=== PATIENT | female | born 1960 | race Hispanic/Latino ===

== ENCOUNTER 2018-04-08 02:52 | Emergency (ER) | payer MEDICARE ==
[2018-04-08 03:10] VITALS: BP 125/77
[2018-04-08] MEDS ORDERED: NACL 0.9% 1000 ML 1,000 ML IV ONE (03:20)
[2018-04-08 03:48] LABS: Basophils % (Auto) 0.4 % (0.0-1.8); Eosinophils % (Auto) 0.3 % (0.0-4.3); Hematocrit 44.9 % (30.3-42.9); Hemoglobin 15.2 gm/dl (10.1-14.3); Lymphocytes # (Auto) 0.6 K/mm3 (1.2-5.4); Lymphocytes % (Auto) 7.3 % (13.4-35.0); Mean Corpuscular HGB Conc 34 % (30-34); Mean Corpuscular Volume 85 fl (79-97); Monocytes # (Auto) 0.6 K/mm3 (0.0-0.8); Monocytes % (Auto) 7.4 % (0.0-7.3); Platelet Count 172 K/mm3 (140-440); Red Blood Count 5.27 M/mm3 (3.65-5.03); Red Cell Distribution Width 15.1 % (13.2-15.2)
[2018-04-08 04:10] LABS: Albumin 3.9 g/dL (3.9-5); BUN/Creatinine Ratio 38; Blood Urea Nitrogen 15 mg/dL (7-17); Calcium 9.2 mg/dL (8.4-10.2); Hemolysis Index 124
[2018-04-08] MEDS ORDERED: ULTRAM PO ONE (04:39)
--- NOTE | 2018-04-08 04:44 | Emergency Department Report ---
ED General Adult HPI - General Chief complaint: Abdominal Pain Stated complaint: ABD PAIN Source: patient, EMS Mode of arrival: Wheelchair Limitations: No Limitations - History of Present Illness Initial comments: 57-year-old female with a past medical history of hypertension, COPD, neurofibromatosis comes in reporting abdominal pain that is sharp and lower back pain that is achy and throbbing. Patient denies any recent traumas. Patient has taken nothing for her pain and states that it started yesterday. Patient's primary care provider is Dr. Fagan and she reports she saw him last month. She denies any urinary frequency or urinary urgency. She admits to dysuria. Reports her abdominal pain is located lower aspect of the abdomen. She denies any nausea no vomiting. -: days(s) (1) Location: back, abdomen Severity scale (0 -10): 10 Quality: aching (back), sharp (abd) Consistency: constant Improves with: none Worsens with: none Associated Symptoms: cough (chronic), other (sneezing) Treatments Prior to Arrival: none - Related Data Home Medications Medication Instructions Recorded Confirmed Last Taken Citalopram Hydrobromide 40 mg PO QDAY 07/31/17 04/19/18 04/15/18 [Citalopram HBr] Gabapentin [Neurontin] 800 mg PO 5XD 07/31/17 04/19/18 04/15/18 Losartan 50 mg PO QDAY 07/31/17 04/19/18 04/15/18 Tizanidine HCl [Zanaflex] 2 mg PO QDAY 07/31/17 04/19/18 04/15/18 busPIRone [Buspar] 5 mg PO BID 07/31/17 04/19/18 04/15/18 Previous Rx's Medication Instructions Recorded Last Taken Type ALPRAZolam [Xanax TAB] 0.25 mg PO Q8H PRN tablet 06/10/18 Unknown Rx Acetaminophen [Acetaminophen 650 mg RI Q4H PRN supp.rect 06/10/18 Unknown Rx SUPPOS] Arformoterol Nebu [Brovana Nebu] 15 mcg IH Q12HRT ml 06/10/18 Unknown Rx Benzocaine/Mentho [Cepacol X 1 each MM Q2HR PRN packet 06/10/18 Unknown Rx Strength] Budesonide [Pulmicort Respules] 0.5 mg IH Q12HRT nebu 06/10/18 Unknown Rx Gabapentin [Neurontin] 800 mg PO TID capsule 06/10/18 Unknown Rx HYDROcodone/APAP 5-325 [[place] 1 each PO Q4H PRN tablet 06/10/18 Unknown Rx 5-325 mg TAB] Loperamide [Imodium] 2 mg PO Q2H PRN capsule 06/10/18 Unknown Rx Metoprolol [Lopressor TAB] 12.5 mg PO BID tablet 06/10/18 Unknown Rx Mirtazapine [Remeron 15mg TAB] 15 mg PO QHS tablet 06/10/18 Unknown Rx Ondansetron [Zofran INJ] 4 mg IV Q4H PRN vial 06/10/18 Unknown Rx fentaNYL [Duragesic] 25 mcg TD Q3D patch 06/10/18 Unknown Rx hydrALAZINE [Apresoline INJ] 10 mg IV Q4HR PRN vial 06/10/18 Unknown Rx methOCARBAMOL [Robaxin TAB] 500 mg PO Q6H PRN #14 tablet 07/27/18 Unknown Rx oxyCODONE /ACETAMINOPHEN [Percocet 1 tab PO Q4HR PRN #12 tab 07/27/18 Unknown Rx 5/325] Allergies Allergy/AdvReac Type Severity Reaction Status Date / Time NSAIDS (Non-Steroidal Allergy Unknown Verified 04/08/18 03:20 Anti-Inflamma ED Review of Systems ROS: Stated complaint: ABD PAIN Other details as noted in HPI Comment: All other systems reviewed and negative ENT: other (sneezing) Respiratory: cough Gastrointestinal: abdominal pain Musculoskeletal: back pain ED Past Medical Hx - Past Medical History Previous Medical History?: Yes Hx Hypertension: Yes Hx Congestive Heart Failure: No Hx Diabetes: No Hx Asthma: No Hx COPD: Yes Hx HIV: No Additional medical history: chronic back pain. Neurofibroidmytosis - Surgical History Past Surgical History?: Yes Additional Surgical History: Partial hyster - Social History Smoking Status: Current Every Day Smoker Substance Use Type: None - Medications Home Medications: Home Medications Medication Instructions Recorded Confirmed Last Taken Type Citalopram Hydrobromide 40 mg PO QDAY 07/31/17 04/19/18 04/15/18 History [Citalopram HBr] Gabapentin [Neurontin] 800 mg PO 5XD 07/31/17 04/19/18 04/15/18 History Losartan 50 mg PO QDAY 07/31/17 04/19/18 04/15/18 History Tizanidine HCl [Zanaflex] 2 mg PO QDAY 07/31/17 04/19/18 04/15/18 History busPIRone [Buspar] 5 mg PO BID 07/31/17 04/19/18 04/15/18 History ALPRAZolam [Xanax TAB] 0.25 mg PO Q8H PRN tablet 06/10/18 Unknown Rx Acetaminophen [Acetaminophen 650 mg RI Q4H PRN supp.rect 06/10/18 Unknown Rx SUPPOS] Arformoterol Nebu [Brovana Nebu] 15 mcg IH Q12HRT ml 06/10/18 Unknown Rx Benzocaine/Mentho [Cepacol X 1 each MM Q2HR PRN packet 06/10/18 Unknown Rx Strength] Budesonide [Pulmicort Respules] 0.5 mg IH Q12HRT nebu 06/10/18 Unknown Rx Gabapentin [Neurontin] 800 mg PO TID capsule 06/10/18 Unknown Rx HYDROcodone/APAP 5-325 [[place] 1 each PO Q4H PRN tablet 06/10/18 Unknown Rx 5-325 mg TAB] Loperamide [Imodium] 2 mg PO Q2H PRN capsule 06/10/18 Unknown Rx Metoprolol [Lopressor TAB] 12.5 mg PO BID tablet 06/10/18 Unknown Rx Mirtazapine [Remeron 15mg TAB] 15 mg PO QHS tablet 06/10/18 Unknown Rx Ondansetron [Zofran INJ] 4 mg IV Q4H PRN vial 06/10/18 Unknown Rx fentaNYL [Duragesic] 25 mcg TD Q3D patch 06/10/18 Unknown Rx hydrALAZINE [Apresoline INJ] 10 mg IV Q4HR PRN vial 06/10/18 Unknown Rx methOCARBAMOL [Robaxin TAB] 500 mg PO Q6H PRN #14 tablet 07/27/18 Unknown Rx oxyCODONE /ACETAMINOPHEN [Percocet 1 tab PO Q4HR PRN #12 tab 07/27/18 Unknown Rx 5/325] ED Physical Exam - General Limitations: No Limitations General appearance: alert, in no apparent distress, cachectic - Head Head exam: Present: atraumatic, normocephalic - Eye Eye exam: Present: EOMI - ENT ENT exam: Present: mucous membranes moist - Neck Neck exam: Present: normal inspection, full ROM - Respiratory Respiratory exam: Present: normal lung sounds bilaterally. Absent: respiratory distress - Cardiovascular Cardiovascular Exam: Present: regular rate, normal rhythm. Absent: systolic murmur, diastolic murmur, rubs, gallop - Back Exam Back exam: Present: paraspinal tenderness - Neurological Exam Neurological exam: Present: alert, oriented X3, normal gait - Psychiatric Psychiatric exam: Present: normal mood, flat affect - Skin Skin exam: Present: warm, dry, intact, other (numerous cysts on face from her neurofibromatosis) ED Course Vital Signs 04/08/18 04/08/18 03:08 03:14 Temperature 98.5 F 98.5 F Pulse Rate 104 H 104 H Respiratory 18 18 Rate Blood Pressure 125/77 Blood Pressure 125/77 [Right] O2 Sat by Pulse 98 98 Oximetry ED Medical Decision Making - Lab Data Result diagrams: 04/08/18 03:33 04/08/18 03:33 Critical care attestation.: If time is entered above; I have spent that time in minutes in the direct care of this critically ill patient, excluding procedure time. ED Disposition Clinical Impression: Marijuana abuse, Nonspecific abdominal pain Disposition: Z-07 ELOPED Is pt being admited?: No Does the pt Need Aspirin: No Condition: Undetermined Instructions: Abdominal Pain (ED) Referrals: KALIN DAVIDSON MD [Primary Care Provider] - 3-5 Days
[2018-04-08 04:48] LABS: Alanine Aminotransferase 52 units/L (7-56)
[2018-04-08 05:13] LABS: Bilirubin,Urine NEG (Negative); Blood,Urine NEG (Negative); Color,Urine Amber (Yellow); Mucus,Urine FEW /HPF; Protein,Urine <15 mg/dL mg/dL (Negative)
[2018-04-08 05:21] LABS: Amphetamine Screen,Urine PRESUMPTIVE NEGATIVE; Benzodiazepines Screen,Urine PRESUMPTIVE NEGATIVE; Cocaine Screen,Urine PRESUMPTIVE NEGATIVE; Methadone Screen,Urine PRESUMPTIVE NEGATIVE; Opiate Screen,Urine PRESUMPTIVE NEGATIVE
[2018-04-08 05:34] LABS: Cannabinoid Screen,Urine PRESUMPTIVE POSITIVE
--- NOTE | 2018-04-08 07:05 | Emergency Department Report ---
Nolvia Doc - Documentation Documentation: 57-year-old female to emergency Department complaining of urinary symptoms with increased urgency and discomfort to the suprapubic area. Seen by Ms. Higgins and was signed out to me pending urinary results. Urinalysis was. He sensibly benign and toxicology did show marijuana. Attempted to discuss these findings with cautery. However, she had already evacuated her room. We did call. She stated that she had gone home, she was to it was too cold in the ER to stay. L abs were discussed over the phone. I advised her that she is to return to the emergency department should she develop any worsening symptoms including but not limited to fever, bloody urine, bloody stool, low back pain/flank pain, nausea and vomiting, or any symptoms suggesting this that her current condition is worsening. Primary care is Dr. Fagan, which she states she will be able to get this week
== END 2018-04-08 07:07 | disposition left against medical advice (07) ==
LOC: ED 02:52 → MERGE 02:52 → ED 07:07
DX: R10.30 Lower abdominal pain, unspecified (principal); M54.5 Low back pain; R05 Cough; I10 Essential (primary) hypertension; J44.9 Chronic obstructive pulmonary disease, unspecified; F17.200 Nicotine dependence, unspecified, uncomplicated; Z88.6 Allergy status to analgesic agent
CPT/HCPCS: 36415; 80053; 80307; 81001; 85025

== ENCOUNTER 2018-04-18 13:50 | Inpatient (IN) | payer MEDICARE ==
[2018-04-18] MEDS ORDERED: TYLENOL PO STA (14:18)
[2018-04-18] MEDS ORDERED: NACL 0.9% 500 ML 500 ML IV ONE (14:18)
[2018-04-18] MEDS ORDERED: NACL 0.9% 1000 ML IV ONE (14:41)
[2018-04-18] MEDS ORDERED: ZOFRAN IV ONE (14:42)
[2018-04-18] MEDS ORDERED: MORPHINE IV ONE (14:42)
[2018-04-18] MEDS ORDERED: ZOSYN/NS 4.5GM/100ML 4.5 GM/100 ML VIAL IV ONE (14:42)
--- NOTE | 2018-04-18 14:43 | Emergency Department Report ---
ED General Adult HPI - General Chief complaint: Abdominal Pain Stated complaint: N/V RT STOMACH PAIN Time Seen by Provider: 04/18/18 14:35 Source: patient, EMS (ems notes not available at time of chart dictation), RN notes reviewed, old records reviewed Mode of arrival: Wheelchair Limitations: Physical Limitation - History of Present Illness Initial comments: Primary care Dr.: Dr. Navin Fagan Past medical history: Neurofibromatosis, hypertension This is a 57-year-old female who is not known to this provider previously. The patient presents to the emergency room today with a complaint of nontraumatic right lower quadrant and right flank abdominal pain for the past 2-3 days. Pain is constant, increases with twisting, palpation, decreases with rest. Patient reports associated fevers, nausea, vomiting, generalized weakness. Questionable dysuria. Symptoms constant, and they're getting worse. Patient reports dry mucous membranes and dry mouth. -: Gradual Location: abdomen Radiation: abdomen Quality: aching Consistency: constant Improves with: other Worsens with: other Associated Symptoms: diaphoresis, fever/chills, loss of appetite, malaise, nausea/vomiting, weakness. denies: confusion, chest pain, cough, headaches, rash, seizure, shortness of breath, syncope - Related Data Home Medications Medication Instructions Recorded Confirmed Last Taken Citalopram Hydrobromide 40 mg PO QDAY 07/31/17 07/31/17 Unknown [Citalopram HBr] Gabapentin [Neurontin] 800 mg PO 5XD 07/31/17 08/01/17 Unknown Losartan 50 mg PO QDAY 07/31/17 08/01/17 Unknown Tizanidine HCl [Zanaflex] 2 mg PO QDAY 07/31/17 08/01/17 Unknown busPIRone [Buspar] 5 mg PO BID 07/31/17 07/31/17 Unknown Previous Rx's Medication Instructions Recorded Last Taken Type Ciprofloxacin HCl [Ciprofloxacin 500 mg PO Q12HR #10 tab 08/01/17 Unknown Rx TAB] Allergies Allergy/AdvReac Type Severity Reaction Status Date / Time NSAIDS (Non-Steroidal Allergy Unknown Verified 04/08/18 03:20 Anti-Inflamma ED Review of Systems ROS: Stated complaint: N/V RT STOMACH PAIN Other details as noted in HPI Constitutional: fever, malaise, weakness Eyes: denies: vision change ENT: denies: epistaxis Respiratory: denies: cough Cardiovascular: denies: chest pain Gastrointestinal: abdominal pain, nausea, vomiting Genitourinary: dysuria Musculoskeletal: back pain Skin: denies: lesions Neurological: weakness Psychiatric: anxiety ED Past Medical Hx - Past Medical History Previous Medical History?: Yes Hx Hypertension: Yes Hx Congestive Heart Failure: No Hx Diabetes: No Hx Liver Disease: Yes (hep c) Hx Asthma: No Hx COPD: Yes Hx HIV: No Additional medical history: chronic back pain. Neurofibroidmytosis - Surgical History Past Surgical History?: Yes Additional Surgical History: Partial hyster - Social History Smoking Status: Current Some Day Smoker Substance Use Type: None - Medications Home Medications: Home Medications Medication Instructions Recorded Confirmed Last Taken Type Citalopram Hydrobromide 40 mg PO QDAY 07/31/17 07/31/17 Unknown History [Citalopram HBr] Gabapentin [Neurontin] 800 mg PO 5XD 07/31/17 08/01/17 Unknown History Losartan 50 mg PO QDAY 07/31/17 08/01/17 Unknown History Tizanidine HCl [Zanaflex] 2 mg PO QDAY 07/31/17 08/01/17 Unknown History busPIRone [Buspar] 5 mg PO BID 07/31/17 07/31/17 Unknown History Ciprofloxacin HCl [Ciprofloxacin 500 mg PO Q12HR #10 tab 08/01/17 Unknown Rx TAB] ED Physical Exam - General Limitations: No Limitations General appearance: alert, in distress - Head Head exam: Present: atraumatic, normocephalic - Eye Eye exam: Present: normal appearance, EOMI. Absent: nystagmus - ENT ENT exam: Present: normal orophraynx, mucous membranes dry, normal external ear exam - Neck Neck exam: Present: normal inspection, full ROM. Absent: tenderness, meningismus - Respiratory Respiratory exam: Present: normal lung sounds bilaterally. Absent: respiratory distress - Cardiovascular Cardiovascular Exam: Present: normal rhythm, tachycardia, normal heart sounds. Absent: systolic murmur, diastolic murmur, rubs, gallop - GI/Abdominal GI/Abdominal exam: Present: soft, tenderness, guarding. Absent: distended, rebound, rigid, pulsatile mass - Extremities Exam Extremities exam: Present: normal inspection (chronic lesions consistent with history of an decompensated neurofibromatosis noted.), full ROM, other (2+ pulses noted in the bilateral upper, lower extremities. Compartments soft. No long bony tenderness. The pelvis is stable.). Absent: pedal edema, joint swelling, calf tenderness - Back Exam Back exam: Present: normal inspection, full ROM, CVA tenderness (R). Absent: tenderness, CVA tenderness (L), muscle spasm, paraspinal tenderness, vertebral tenderness - Neurological Exam Neurological exam: Present: alert, oriented X3, other (2+ pulses noted in the bilateral upper, lower extremities. Compartments soft. No long bony tenderness. The pelvis is stable.). Absent: motor sensory deficit - Psychiatric Psychiatric exam: Present: anxious - Skin Skin exam: Present: warm ED Course Vital Signs 04/18/18 04/18/18 04/18/18 14:15 14:57 15:30 Temperature 101.7 F H 101.9 F H Pulse Rate 108 H 86 80 Respiratory 20 12 18 Rate Blood Pressure 91/51 Blood Pressure 100/47 118/66 [Right] O2 Sat by Pulse 100 100 99 Oximetry 04/18/18 04/18/18 16:30 16:57 Temperature 99.1 F Pulse Rate 82 80 Respiratory 16 12 Rate Blood Pressure Blood Pressure 121/61 115/64 [Right] O2 Sat by Pulse 99 99 Oximetry - Reevaluation(s) Reevaluation #1: 04/18/18 15:41 Differential diagnosis, including but not limited to: Appendicitis, colitis, perforated viscus, pyelonephritis, infected kidney stone Assessment and plan: 57-year-old female with lower abdominal pain, fever, nausea, vomiting, tachycardia, leukocytosis and lactic acidosis. Laboratory studies suggest dehydration, as evidenced by hyponatremia, which is most likely hypovolemic, hyponatremia. The patient will be treated according to the sepsis pathway with aggressive IV fluids, pain medication, broad-spectrum antibiotics, and antipyretic medication. CT scan of the abdomen and pelvis has been ordered and interpretation is pending. Reevaluation #2: 04/18/18 17:26 Metronidazole is added on for additional coverage. Blood pressure in the 120s. CT scan report is reviewed and appreciated. Gynecology consulted, awaiting callback. Gen. surgery consulted, awaiting callback. Reevaluation #3: 04/18/18 18:29 Discussed with general surgery, Dr. Aminta Shelton; he is going to evaluate the patient, and likely take the patient to the operating room expediently. He requests medical team to admit the patient, as per the hospital policy. Dr. Garcia accepts the patient to the medical service. Blood pressure in the 120s currently. - Consultations Consultation #1: 04/18/18 17:59 Discussed with gynecology on-call, Dr. Sheehan, who indicates her group would be able to consult intraoperatively, if necessary. Based off of the history and physical, I favor appendicitis, with abscess, and subsequent reactive changes. ED Medical Decision Making - Lab Data Result diagrams: 04/18/18 14:30 04/18/18 14:30 Vital Signs 04/18/18 04/18/18 14:15 14:57 Temperature 101.7 F H 101.9 F H Pulse Rate 108 H 86 Respiratory 20 12 Rate Blood Pressure 91/51 Blood Pressure 100/47 [Right] O2 Sat by Pulse 100 100 Oximetry Lab Results 04/18/18 04/18/18 04/18/18 Range/Units 14:30 14:30 14:30 WBC 18.6 H (4.5-11.0) K/mm3 RBC 4.66 (3.65-5.03) M/mm3 Hgb 13.3 (10.1-14.3) gm/dl Hct 39.2 (30.3-42.9) % MCV 84 (79-97) fl MCH 29 (28-32) pg MCHC 34 (30-34) % RDW 15.1 (13.2-15.2) % Plt Count 298 (140-440) K/mm3 PT 16.3 H (12.2-14.9) Sec. INR 1.27 H (0.87-1.13) APTT (24.2-36.6) Sec. VBG pH (7.320-7.420) Sodium 121 L (137-145) mmol/L Potassium 3.0 L (3.6-5.0) mmol/L Chloride 78.0 L (98-107) mmol/L Carbon Dioxide 29 (22-30) mmol/L Anion Gap 17 mmol/L BUN 10 (7-17) mg/dL Creatinine 0.5 L (0.7-1.2) mg/dL Estimated GFR > 60 ml/min BUN/Creatinine Ratio 20 % Glucose 110 H (65-100) mg/dL Lactic Acid (0.7-2.0) mmol/L Calcium 8.5 (8.4-10.2) mg/dL Total Bilirubin 1.30 H (0.1-1.2) mg/dL AST 42 H (5-40) units/L ALT 38 (7-56) units/L Alkaline Phosphatase 95 (35-129) units/L Total Protein 6.7 (6.3-8.2) g/dL Albumin 3.1 L (3.9-5) g/dL Albumin/Globulin Ratio 0.9 % 04/18/18 04/18/18 04/18/18 Range/Units 14:30 14:30 14:46 WBC (4.5-11.0) K/mm3 RBC (3.65-5.03) M/mm3 Hgb (10.1-14.3) gm/dl Hct (30.3-42.9) % MCV (79-97) fl MCH (28-32) pg MCHC (30-34) % RDW (13.2-15.2) % Plt Count (140-440) K/mm3 PT (12.2-14.9) Sec. INR (0.87-1.13) APTT 28.9 (24.2-36.6) Sec. VBG pH 7.439 H (7.320-7.420) Sodium (137-145) mmol/L Potassium (3.6-5.0) mmol/L Chloride (98-107) mmol/L Carbon Dioxide (22-30) mmol/L Anion Gap mmol/L BUN (7-17) mg/dL Creatinine (0.7-1.2) mg/dL Estimated GFR ml/min BUN/Creatinine Ratio % Glucose (65-100) mg/dL Lactic Acid 3.60 H* (0.7-2.0) mmol/L Calcium (8.4-10.2) mg/dL Total Bilirubin (0.1-1.2) mg/dL AST (5-40) units/L ALT (7-56) units/L Alkaline Phosphatase (35-129) units/L Total Protein (6.3-8.2) g/dL Albumin (3.9-5) g/dL Albumin/Globulin Ratio % 04/18/18 Range/Units 15:14 WBC (4.5-11.0) K/mm3 RBC (3.65-5.03) M/mm3 Hgb (10.1-14.3) gm/dl Hct (30.3-42.9) % MCV (79-97) fl MCH (28-32) pg MCHC (30-34) % RDW (13.2-15.2) % Plt Count (140-440) K/mm3 PT (12.2-14.9) Sec. INR (0.87-1.13) APTT (24.2-36.6) Sec. VBG pH (7.320-7.420) Sodium (137-145) mmol/L Potassium (3.6-5.0) mmol/L Chloride (98-107) mmol/L Carbon Dioxide (22-30) mmol/L Anion Gap mmol/L BUN (7-17) mg/dL Creatinine (0.7-1.2) mg/dL Estimated GFR ml/min BUN/Creatinine Ratio % Glucose (65-100) mg/dL Lactic Acid 1.70 (0.7-2.0) mmol/L Calcium (8.4-10.2) mg/dL Total Bilirubin (0.1-1.2) mg/dL AST (5-40) units/L ALT (7-56) units/L Alkaline Phosphatase (35-129) units/L Total Protein (6.3-8.2) g/dL Albumin (3.9-5) g/dL Albumin/Globulin Ratio % - EKG Data 04/18/18 15:52 Limited by motion artifact. Sinus, and 4 bpm, normal axis, normal intervals, motion artifact, borderline atrial enlargement, poor R wave progression, not having chest pain, nonspecific ST elevation, not consistent with ST elevation myocardial infarction. - Radiology Data Radiology results: report reviewed, image reviewed X-ray of the chest is negative for acute disease Referring Physician: GLO RENE Patient Name: DAVID SMITH Date of : 1960 Sex: Female Report Date: 2018-04-18 Report Status: Finalized [facility] [address] [place] [address] Cat Scan Report Signed Patient: DAVID SMITH MR#: [id number] : 1960 Acct:[id number] Age/Sex: 57 / F ADM Date: 04/18/18 Loc: ED Attending Dr: Ordering Physician: GLO RENE MD Date of Service: 04/18/18 Procedure(s): CT abdomen pelvis w con Accession Number(s): [id number] cc: GLO RENE MD FINAL REPORT EXAM: CT ABDOMEN PELVIS W CON HISTORY: rlq pain sepsis TECHNIQUE: CT abdomen and pelvis with intravenous contrast PRIORS: None. FINDINGS: No acute abnormality identified in the lung bases. No focal abnormality identified within the liver parenchyma. The spleen demonstrates normal size and attenuation. No pancreatic abnormalities seen. The kidneys demonstrate symmetric contrast enhancement. No evidence of hydronephrosis. The adrenal glands are unremarkable Abdominal aorta is normal in caliber. No pathologically enlarged lymph nodes are identified. No signs of free fluid or free air No evidence of small bowel dilatation. The appendix is not definitively identified. In the right lower quadrant adjacent to the tip of the cecum there is a complex a thick-walled septated mass measuring 6.0 by is 7.0 by 4.4 centimeters. There is moderate distention of few scattered small bowel loops likely reflecting ileus. Urinary bladder is unremarkable. IMPRESSION: Complex septated mass in the right lower quadrant. Differential consideration includes ruptured appendicitis with appendiceal abscess, tubo-ovarian abscess or ovarian mass are differential considerations Transcribed By: HETAL Dictated By: ZAN CHA MD Electronically Authenticated By: ZAN CHA MD Signed Date/Time: 04/18/18 1707 Critical Care Time: Yes Critical care time in (mins) excluding proc time.: 35 Critical care attestation.: If time is entered above; I have spent that time in minutes in the direct care of this critically ill patient, excluding procedure time. ED Disposition Clinical Impression: Sepsis Qualifiers: Sepsis type: sepsis due to unspecified organism Qualified Code(s): A41.9 - Sepsis, unspecified organism Disposition: OP ADMIT IP TO THIS HOSP Is pt being admited?: Yes Condition: Fair Instructions: Abdominal Pain (ED) Referrals: HERMINIA FISHMAN MD [Primary Care Provider] - 3-5 Days
[2018-04-18 15:03] LABS: Hematocrit 39.2 % (30.3-42.9); Hemoglobin 13.3 gm/dl (10.1-14.3); INR 1.27 (0.87-1.13); Mean Corpuscular HGB Conc 34 % (30-34); Mean Corpuscular Volume 84 fl (79-97); Platelet Count 298 K/mm3 (140-440); Red Blood Count 4.66 M/mm3 (3.65-5.03); Red Cell Distribution Width 15.1 % (13.2-15.2)
[2018-04-18 15:09] LABS: Alanine Aminotransferase 38 units/L (7-56); Albumin 3.1 g/dL (3.9-5); BUN/Creatinine Ratio 20; Blood Urea Nitrogen 10 mg/dL (7-17); Calcium 8.5 mg/dL (8.4-10.2); Hemolysis Index 7
--- NOTE | 2018-04-18 15:11 | XRay Report ---
FINAL REPORT EXAM: XRAY CHEST SINGLE VIEW HISTORY: SEPSIS TECHNIQUE: Frontal chest radiograph. PRIORS: None. FINDINGS: The cardiomediastinal silhouette is normal. No focal consolidation. Probable nipple shadow projecting over the lateral aspect of the left lower l obe. No pleural effusion. No pneumothorax. No acute osseous abnormality. IMPRESSION: No acute cardiopulmonary process.
[2018-04-18] MEDS ORDERED: NACL 0.9% 1000 ML 1,000 ML IV ONE ×2 (15:51→18:34)
[2018-04-18 15:55] LABS: Basophils % (Manual) 0 % (0.0-1.8); Eosinophils % (Manual) 0 % (0.0-4.3); Total Cells Counted 100
[2018-04-18 15:56] LABS: RBC Morphology Normal
[2018-04-18] MEDS ORDERED: SUBLIMAZE IV ONE ×2 (16:37→18:46)
[2018-04-18] MEDS: KCL 10MEQ/100ML 10 MEQ/100 ML BAG IV SCH ×3 (16:45→20:20)
--- NOTE | 2018-04-18 17:07 | Cat Scan Report ---
FINAL REPORT EXAM: CT ABDOMEN PELVIS W CON HISTORY: rlq pain sepsis TECHNIQUE: CT abdomen and pelvis with intravenous contrast PRIORS: None. FINDINGS: No acute abnormality identified in the lung bases. No focal abnormality identified within the liver parenchyma. The spleen demonstrates normal size and attenuation. No pancreatic abnormalities seen. The kidneys demonstrate symmetric contrast enhancement. No evidence of hydronephrosis. The adrenal glands are unremarkable Abdominal aorta is normal in caliber. No pathologically enlarged lymph nodes are identified. No signs of free fluid or free air No evidence of small bowel dilatation. The appendix is not definitively identified. In the right lower quadrant adjacent to the tip of the c ecum there is a complex a thick-walled septated mass measuring 6.0 by is 7.0 by 4.4 centimeters. There is moderate distention of few scattered small bowel loops likely reflecting ileus. Urinary bladder is unremarkable. IMPRESSION: Complex septated mass in the right lower quadrant. Differential consideration includes ruptured appen dicitis with appendiceal abscess, tubo-ovarian abscess or ovarian mass are differential consideration s
[2018-04-18] MEDS ORDERED: FLAGYL 500 MG/100 ML 500 MG/100 ML BAG IV ONE (17:11)
[2018-04-18 17:21] LABS: Bacteria,Urine 2+ /HPF (Negative); Bilirubin,Urine NEG (Negative); Blood,Urine NEG (Negative); Color,Urine Amber (Yellow); Mucus,Urine FEW /HPF; Protein,Urine <15 mg/dL mg/dL (Negative)
--- NOTE | 2018-04-18 18:26 | History and Physical Report ---
History of Present Illness Chief complaint: My stomach hurts History of present illness: 57 YO Female with HTN, Neurofibromatosis, HCV, COPD, Nicotine Dependence presents to ED for evaluation. Pt states that she has experienced abdominal pain over the past 3 days. Pt states that pain is 10/10, constant, worsened with movement, decreased mildly with nonmovement. Pt acknowledges fever, nausea, multiple episodes of vomiting, inabililty to tolerate oral intake. Pt states that symptoms have progressively worsened over the past 2 days. EMS notified, and upon arrival the patient was found to be in distress. Pt transported to [facility] for further care and evaluation. Pt seen and evaluated in ED and found to have sepsis, suspected secondary to Ruptured Appendicitis complicated by an intraabdominal abscess. Surgery consulted, as well as COUNTER WEIGHER service. Pt initiated on Sepsis protocol, and admitted to ICU. Pt pending surgical intervention. Primary care Physician: Dr. Navin Fagan Past History Past Medical History: COPD, hepatitis, hypertension, other (Neurofibromatosis) Past Surgical History: hysterectomy Social history: smoking Family history: hypertension Medications and Allergies Allergies Allergy/AdvReac Type Severity Reaction Status Date / Time NSAIDS (Non-Steroidal Allergy Unknown Verified 04/08/18 03:20 Anti-Inflamma Home Medications Medication Instructions Recorded Confirmed Last Taken Type Citalopram Hydrobromide 40 mg PO QDAY 07/31/17 07/31/17 Unknown History [Citalopram HBr] Gabapentin [Neurontin] 800 mg PO 5XD 07/31/17 08/01/17 Unknown History Losartan 50 mg PO QDAY 07/31/17 08/01/17 Unknown History Tizanidine HCl [Zanaflex] 2 mg PO QDAY 07/31/17 08/01/17 Unknown History busPIRone [Buspar] 5 mg PO BID 07/31/17 07/31/17 Unknown History Ciprofloxacin HCl [Ciprofloxacin 500 mg PO Q12HR #10 tab 08/01/17 Unknown Rx TAB] Active Meds: Active Medications Potassium Chloride (Kcl 10meq/100ml) 10 meq in 100 mls @ 100 mls/hr IV Q1H DUSTIN Stop: 04/18/18 19:59 Last Admin: 04/18/18 16:45 Dose: 100 mls/hr Documented by: Review of Systems Constitutional: fever, no weight loss, no weight gain, no chills Ears, nose, mouth and throat: no ear pain, no ear discharge, no tinnitis, no decreased hearing, no nose pain Breasts: no change in shape, no swelling, no mass Cardiovascular: no chest pain, no orthopnea, no palpitations, no rapid/irregular heart beat, no syncope Respiratory: no cough, no cough with sputum, no excessive sputum, no hemoptysis, no shortness of breath Gastrointestinal: abdominal pain, nausea, vomiting, loss of appetite, no BRBPR, no melena, no hematochezia Genitourinary Female: flank pain, no pelvic pain, no menorrhagia, no dysuria, no urinary frequency, no urgency Rectal: no pain, no incontinence, no bleeding Musculoskeletal: no neck stiffness, no neck pain, no shooting arm pain, no arm numbness/tingling, no low back pain, no shooting leg pain Integumentary: no rash, no pruritis, no redness, no sores, no wounds Neurological: no transient paralysis, no paralysis, no weakness, no parathesias, no numbness, no tingling, no seizures Psychiatric: no anxiety, no memory loss, no change in sleep habits, no sleep disturbances, no insomnia, no hypersomnia, no change in appetite Endocrine: no cold intolerance, no heat intolerance, no polyphagia, no polydipsia, no polyuria Hematologic/Lymphatic: no easy bruising, no easy bleeding, no lymphadenopathy, no lymphedema Allergic/Immunologic: no urticaria, no allergic rhinitis, no wheezing, no persistent infections, no anaphylaxis Exam - Constitutional Vitals: Temp Pulse Resp BP Pulse Ox 99.1 F 80 12 115/64 99 04/18/18 16:57 04/18/18 16:57 04/18/18 16:57 04/18/18 16:57 04/18/18 16:57 General appearance: Present: mild distress - EENT Eyes: Present: PERRL ENT: hearing intact, clear oral mucosa - Neck Neck: Present: supple, normal ROM - Respiratory Respiratory effort: normal Respiratory: bilateral: CTA - Cardiovascular Heart Sounds: Present: S1 & S2. Absent: rub, click - Extremities Extremities: pulses symmetrical, No edema Peripheral Pulses: within normal limits - Abdominal General gastrointestinal: Present: soft, tender, distended, normal bowel sounds. Absent: hepatomegaly, splenomegaly Localized gastrointestinal: tender: diffuse Female genitourinary: Present: normal - Integumentary Integumentary: Present: clear, warm, dry - Musculoskeletal Musculoskeletal: gait normal, strength equal bilaterally - Psychiatric Psychiatric: appropriate mood/affect, intact judgment & insight - Neurologic Neurologic: CNII-XII intact, moves all extremities Results - Labs CBC & Chem 7: 04/18/18 14:30 04/18/18 14:30 Labs: Abnormal lab results 04/18/18 04/18/18 04/18/18 Range/Units 14:30 14:30 14:30 WBC 18.6 H (4.5-11.0) K/mm3 Seg Neuts % (Manual) 79.0 H (40.0-70.0) % Lymphocytes % (Manual) 4.0 L (13.4-35.0) % Seg Neutrophils # Man 14.7 H (1.8-7.7) K/mm3 Lymphocytes # (Manual) 0.7 L (1.2-5.4) K/mm3 PT 16.3 H (12.2-14.9) Sec. INR 1.27 H (0.87-1.13) VBG pH (7.320-7.420) Sodium 121 L (137-145) mmol/L Potassium 3.0 L (3.6-5.0) mmol/L Chloride 78.0 L (98-107) mmol/L Creatinine 0.5 L (0.7-1.2) mg/dL Glucose 110 H (65-100) mg/dL Lactic Acid (0.7-2.0) mmol/L Total Bilirubin 1.30 H (0.1-1.2) mg/dL AST 42 H (5-40) units/L Albumin 3.1 L (3.9-5) g/dL 04/18/18 04/18/18 Range/Units 14:30 14:30 WBC (4.5-11.0) K/mm3 Seg Neuts % (Manual) (40.0-70.0) % Lymphocytes % (Manual) (13.4-35.0) % Seg Neutrophils # Man (1.8-7.7) K/mm3 Lymphocytes # (Manual) (1.2-5.4) K/mm3 PT (12.2-14.9) Sec. INR (0.87-1.13) VBG pH 7.439 H (7.320-7.420) Sodium (137-145) mmol/L Potassium (3.6-5.0) mmol/L Chloride (98-107) mmol/L Creatinine (0.7-1.2) mg/dL Glucose (65-100) mg/dL Lactic Acid 3.60 H* (0.7-2.0) mmol/L Total Bilirubin (0.1-1.2) mg/dL AST (5-40) units/L Albumin (3.9-5) g/dL Assessment and Plan - Patient Problems (1) Sepsis Current Visit: Yes Status: Acute Qualifiers: Sepsis type: sepsis due to unspecified organism Qualified Code(s): A41.9 - Sepsis, unspecified organism Plan to address problem: Admit to ICU: Sepsis protocol:IVF resuscitation, monitor uop q shift, CT Abdomen pelvis, IV antibiotic therapy, chest x ray, urinalysis, serial lactic acid level, The high probability of a clinically significant, sudden or life threatening deterioration of the [Neuro, renal, GI, respiratory] system(s) required my full and direct attention, intervention and personal management. The aggregate critical care time was [65] minutes. This time is in addition to time spent performing reported procedures but includes the following: [x] Data Review and interpretation [x] Patient assessment and monitoring of vital signs [x] Documentation [x] Medication orders and management (2) Appendicitis with peritoneal abscess Current Visit: Yes Status: Acute Plan to address problem: IV antibiotic therapy, Surgery consulted, Pending surgical intervention (3) Appendicitis with perforation Current Visit: Yes Status: Acute Plan to address problem: Surgery consulted, serial abdominal exam, CT abdomen pelvis. (4) DVT prophylaxis Current Visit: Yes Status: Acute Plan to address problem: SCD to BLE while in bed.
[2018-04-18] MEDS ORDERED: SODIUM CHLORIDE FLUSH SYRINGE 10 ML IV PRN (18:30)
[2018-04-18] MEDS ORDERED: VERSED ONE (19:19)
[2018-04-18] MEDS ORDERED: DIPRIVAN 10 MG/ML IV ONE (19:19)
[2018-04-18] MEDS ORDERED: SUBLIMAZE ONE (19:19)
[2018-04-18] MEDS ORDERED: LEVOPHED IV ONE (19:32)
[2018-04-18] MEDS ORDERED: Vasostrict ONE (19:33)
[2018-04-18] MEDS ORDERED: NACL 0.9% 250ML 250 ML ONE (19:33)
--- NOTE | 2018-04-18 19:34 | Anesthesia Consultation ---
Anesthesia Consult and Med Hx Date of service: 04/18/18 - Airway Anesthetic Teeth Evaluation: Poor, Chipped, Dentures ROM Head & Neck: Adequate Mental/Hyoid Distance: Adequate Mallampati Class: Class II Intubation Access Assessment: Probably Good - Pulmonary Exam CTA: Yes - Cardiac Exam Cardiac Exam: RRR - Pre-Operative Health Status ASA Pre-Surgery Classification: ASA3 Proposed Anesthetic Plan: General - Pre-Anesthesia Comment Pre-Anesthesia Comments: R lower quad septated mass, R/O ruptured appendix. WBS is 18.6. Initial lactic acid of 3.60 corrected to 0.9 with iv hydration. Pt is a 1PPD smoker with COPD but is not on home O2. She says her breathing is presently near her baseline. 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
[2018-04-18] MEDS ORDERED: ALBURX 25% (ALBUMIN) IV ONE (19:42)
--- NOTE | 2018-04-18 19:45 | Anesthesia Day of Surgery ---
Anesthesia Day of Surgery - Day of Surgery Patient Examined: Yes Patient H&P Reviewed: Yes Patient is NPO: No (npo solids for several days. Water sips a few times since admission) Beta Blockers: No Cardiac Clearance: No Pulmonary Clearance: No
[2018-04-18] MEDS ORDERED: NACL 0.9% 1000 ML 0 ML ONE (20:24)
[2018-04-18] MEDS ORDERED: LACTATED RINGERS 1,000 ML ONE (20:26)
[2018-04-18] MEDS ORDERED: PEPCID IV ONE (20:27)
[2018-04-18] MEDS ORDERED: KETALAR ONE (21:07)
[2018-04-18] MEDS ORDERED: DILAUDID ONE ×3 (21:32→23:56)
[2018-04-18] MEDS ORDERED: FLAGYL 500 MG/100 ML 500 MG/100 ML BAG IV SCH (22:00)
[2018-04-18] MEDS ORDERED: MAXIPIME/NS 2 GM/100 ML 2 GM/100 ML BAG IV SCH (22:00)
[2018-04-18] MEDS ORDERED: NON-FORMULARY (Gabapentin [Neurontin] 800 MG) PO SCH (22:00)
--- NOTE | 2018-04-18 23:40 | Consultation ---
REASON FOR CONSULTATION: Acute abdomen, rule out perforated appendicitis with a large pelvic abscess. HISTORY OF PRESENT ILLNESS: The patient is a 57-year-old female who has been complaining of right lower quadrant abdominal pain for approximately one week now. Also, multiple episodes of nausea and vomiting. PAST MEDICAL HISTORY: Pertinent for hepatitis C, neurofibromatosis, COPD, and hypertension. PAST SURGICAL HISTORY: Status post partial hysterectomy. ALLERGIES: ALLERGIC TO NSAIDS AND STEROIDS. MEDICATIONS: Include blood pressure medication, gabapentin, and a muscle relaxant. FAMILY HISTORY: Heart disease, CVA, and hypertension. SOCIAL HISTORY: Smokes a pack a day for approximately 30 years. Denies any ethanol intake. PHYSICAL EXAMINATION: GENERAL: At this time reveals the patient to be awake and alert, but in obvious discomfort and distress. VITAL SIGNS: Show her to be running temperature of 101.9, blood pressure is 115/64, pulse of 80, respirations of 12. ABDOMEN: Examination of the abdomen reveals diffuse abdominal tenderness with guarding and rebound, more so on the lower quadrants of the abdomen. Some rigidity is noted. Bowel sounds are hypoactive to absent. LABORATORY DATA: Lab work at present includes a CBC, which shows a white count of 18.6, H and H are 13.3 and 39. Electrolytes show a low sodium of 121 and a low potassium of 3 and chloride of 78. This has since being corrected with appropriate IV fluid hydration. DIAGNOSTIC DATA: CT scan of the abdomen was performed, which reveals very large abscess in the area of the cecum. Measurements are described as 6 x 7 x 4.4 cm. Differential diagnosis at this time is that of rule out perforated appendicitis with large complex abscess versus tubo-ovarian abscess or ovarian mass. IMPRESSION: At this time is perforated viscus, acute abdomen, surgical emergency. PLAN: To proceed with emergency exploratory laparotomy, possible bowel resection, possible colostomy, possible oophorectomy, etc. Risk, indication, and complications have been reviewed with the patient. FLORAL DESIGN TEACHER has also been consulted. The patient has a high surgical risk and condition at this time is guarded. JOB# [id number] CHYNA/NTS
[2018-04-18] MEDS ORDERED: DILAUDID IV PRN (23:55)
[2018-04-19] MEDS ORDERED: ZOSYN/NS 4.5GM/100ML 4.5 GM/100 ML VIAL IV SCH
[2018-04-19 00:15] LABS: Hematocrit 40.1 % (30.3-42.9); Mean Corpuscular HGB Conc 33 % (30-34); Mean Corpuscular Volume 86 fl (79-97); Platelet Count 342 K/mm3 (140-440); Red Blood Count 4.67 M/mm3 (3.65-5.03); Red Cell Distribution Width 15.8 % (13.2-15.2)
--- NOTE | 2018-04-19 00:17 | Operative Report ---
SURGEON: Stevan Shelton MD PREOPERATIVE DIAGNOSES: Sepsis, large pelvic abscess, rule out perforation. POSTOPERATIVE FINDINGS: Gangrenous perforated appendix eroding into the small bowel. Large abscess and surrounding inflammation throughout the entire pelvis. Unfortunately, we could not just drain this abscess as the entire abscess and inflammatory process had trapped the small bowel and there was essentially a complete obstruction of the small bowel deep in the pelvis. PROCEDURE: Emergency exploratory laparotomy, evacuation of pelvic abscess. Mobilization of the entire small bowel and cecum trapped within the pelvic abscess cavity. Segmental small bowel resection as well as a right hemicolectomy. Ileocolic enteroenterostomy anastomosis. ESTIMATED BLOOD LOSS: 300 mL. DRAINS: One triple-lumen sump drain left draining in the pelvic floor. Very difficult case and the patient remains in a guarded condition. DESCRIPTION OF PROCEDURE: The patient was taken to the operating room, prepped and draped in usual sterile fashion. Midline incision was made and abdomen entered. Upon entrance into the abdomen, a large dilated small bowel loops were noted. These were followed down towards the pelvis where they were noted to be trapped within extensive inflammation. The colon itself was also noted to be adhered to the peritoneal wall. It was noted preop on exam that the patient did have erythema on the skin over that right lower quadrant region. By history, it appears the patient had had these symptoms going on for over a week with significant and severe right lower quadrant abdominal pain accompanied by nausea and vomiting. The colon was slowly dissected free from the adhesions in the undersurface of the peritoneum. The entire right colon was then mobilized. Again, the distal ileum was noted to be trapped deep in the pelvis with all the adhesions and inflammation. The appendix itself was also able to be identified and noted to be perforated. Fair amount pus was noted during the dissection. Aerobic and anaerobic cultures were taken. Eventually, the entire small bowel was able to be freed and brought out into the operative field. Segmental small bowel resection was performed and then the subsequent distal ileal area that was noted to be normal in mucosa and serosa, was then anastomosed to the ascending colon near the hepatic flexure. The mesentery was secured with the Harmonic scalpel. Subsequently, the mesentery was then closed with interrupted 3-0 Vicryl suture. The pelvis was noted to be oozing as well as the right colonic gutter. Both areas were irrigated copiously and packed with laps. After approximately 5-10 minutes, the laps were removed and the area was inspected. Very minimal oozing was noted at this point. The Lynn powder was used in both areas after copious irrigation. Both areas were then inspected and noted to be dry. The entire abdomen had also been copiously irrigated including the subphrenic spaces and the colonic gutters until the aspirate was crystal clear. The anastomosis was then inspected and noted to be intact. No leakage noted. No tension noted and excellent blood supply was seen. A triple-lumen sump drain was led then brought out through a separate stab incision and brought into drain the pelvic floor. The NG tube was palpated and noted to be within the gastric lumen. The fascia was then closed with interrupted #1 Vicryl suture. Subcutaneous tissues irrigated and skin closed loosely with manoj. Also packed with Telfa ludivina soaked in Betadine. Fluffs and pressure dressing were applied. Abdominal binder will also be placed. The patient remains in guarded condition. I will repeat blood work and blood gases now in recovery room. Compensation Vice President has also been contacted as the patient will subsequently transferred to ICU for further resuscitation and management. JOB# [id number] CHYNA/KATRIN
[2018-04-19] MEDS ORDERED: LACTATED RINGERS 1,000 ML ONE (00:26)
[2018-04-19] MEDS ORDERED: NACL 0.9% 1000 ML 1,000 ML ONE (00:27)
[2018-04-19 00:31] LABS: Alanine Aminotransferase 24 units/L (7-56); BUN/Creatinine Ratio 16; Blood Urea Nitrogen 8 mg/dL (7-17); Calcium 7.5 mg/dL (8.4-10.2); Hemolysis Index 14
[2018-04-19] MEDS: MORPHINE IV PRN ×3 (01:21→14:15)
[2018-04-19] MEDS: ZOFRAN IV PRN ×4 (01:22→19:53)
[2018-04-19] MEDS: KCL 20 MEQ in LACTATED RINGERS 1,000 ML IV SCH ×3 (01:32→19:54)
[2018-04-19 01:52] LABS: Basophils % (Manual) 0 % (0.0-1.8); Platelet Clumps Few; Platelet Estimate Consistent w Auto; RBC Morphology Normal; Total Cells Counted 100
[2018-04-19] MEDS: KCL 10MEQ/100ML 10 MEQ/100 ML BAG IV SCH (01:56)
[2018-04-19] MEDS: SODIUM CHLORIDE FLUSH SYRINGE 10 ML IV SCH ×3 (02:06→21:56)
[2018-04-19] MEDS: NEURONTIN PO SCH ×6 (02:06→23:58)
[2018-04-19] MEDS: BUSPAR PO SCH ×3 (02:07→23:58)
[2018-04-19] MEDS: DILAUDID IV PRN ×6 (03:04→23:56)
[2018-04-19] MEDS: PEPCID IV SCH ×3 (03:34→21:55)
[2018-04-19] MEDS: FLAGYL 500 MG/100 ML 500 MG/100 ML BAG IV SCH ×3 (05:21→21:55)
[2018-04-19 05:55] LABS: Hematocrit 35.4 % (30.3-42.9); Hemoglobin 11.6 gm/dl (10.1-14.3); Mean Corpuscular HGB Conc 33 % (30-34); Mean Corpuscular Volume 85 fl (79-97); Platelet Count 315 K/mm3 (140-440); Red Blood Count 4.16 M/mm3 (3.65-5.03); Red Cell Distribution Width 15.3 % (13.2-15.2)
[2018-04-19 06:00] LABS: INR 1.59 (0.87-1.13)
[2018-04-19 06:01] LABS: Partial Thromboplastin Time 29.4 Sec. (24.2-36.6)
[2018-04-19 06:13] LABS: Alanine Aminotransferase 23 units/L (7-56); Albumin 1.9 g/dL (3.9-5); BUN/Creatinine Ratio 17; Blood Urea Nitrogen 10 mg/dL (7-17); Calcium 7.4 mg/dL (8.4-10.2); Hemolysis Index 11
--- NOTE | 2018-04-19 06:25 | Post Anesthesia Evaluation ---
- Post Anesthesia Evaluation Patient Participated: Yes Airway Patent: Yes Stable Respiratory Function: Yes (3 L N.C.) Nausea/Vomiting: Yes (C/O nausea despite medications, same sine admission to ER) Temp > 96.8F: Yes Pain Manageable: Yes Adequeate Hydration: Yes Anesthesia Complications: No
[2018-04-19] MEDS: ZOSYN/NS 4.5GM/100ML 4.5 GM/100 ML VIAL IV SCH ×3 (06:30→21:56)
--- NOTE | 2018-04-19 06:52 | Progress Note ---
Subjective Date of service: 04/19/18 Interval history: Patient is awake and alert. Her SaO2 is 98-99% on nasal cannula and she feels she is getting adequate air in. Respiratory rate is 12-14. Her main complaint is abdominal pain and she remains tachycardic. She was noted in OR to have high tolerance to narcotics. Nausea that was present preop is unchanged. No obvious anesthetic complications. Objective - Constitutional Vitals: Vital Signs - 12hr 04/18/18 04/18/18 04/18/18 18:46 19:00 19:16 Temperature Pulse Rate 79 79 86 Pulse Rate [ From Monitor] Respiratory 9 L 10 L 9 L Rate Blood Pressure O2 Sat by Pulse 100 99 100 Oximetry 04/18/18 04/18/18 04/18/18 19:30 19:46 20:00 Temperature Pulse Rate 83 85 Pulse Rate [ From Monitor] Respiratory 10 L 13 Rate Blood Pressure O2 Sat by Pulse 100 98 100 Oximetry 04/18/18 04/18/18 04/18/18 23:41 23:46 23:51 Temperature 99.8 F H Pulse Rate 110 H 112 H 115 H Pulse Rate [ From Monitor] Respiratory 18 22 28 H Rate Blood Pressure 149/91 161/88 164/92 O2 Sat by Pulse 100 100 98 Oximetry 04/18/18 04/19/18 04/19/18 23:56 00:11 00:18 Temperature 99.7 F H Pulse Rate 109 H 110 H 117 H Pulse Rate [ From Monitor] Respiratory 15 21 22 Rate Blood Pressure 134/82 146/71 146/71 O2 Sat by Pulse 98 97 97 Oximetry 04/19/18 04/19/18 04/19/18 00:19 00:38 00:45 Temperature Pulse Rate 123 H 122 H Pulse Rate [ From Monitor] Respiratory 15 14 Rate Blood Pressure 129/68 O2 Sat by Pulse 96 95 Oximetry 04/19/18 04/19/18 04/19/18 00:55 01:00 01:15 Temperature 98.4 F Pulse Rate 123 H 124 H Pulse Rate [ 125 H From Monitor] Respiratory 16 16 Rate Blood Pressure 129/68 134/71 O2 Sat by Pulse 98 96 Oximetry 04/19/18 04/19/18 04/19/18 01:21 01:30 01:45 Temperature Pulse Rate 120 H 121 H Pulse Rate [ From Monitor] Respiratory 10 L 16 22 Rate Blood Pressure 131/65 137/66 O2 Sat by Pulse 97 98 Oximetry 04/19/18 04/19/18 04/19/18 01:51 02:00 02:15 Temperature Pulse Rate 125 H 124 H Pulse Rate [ From Monitor] Respiratory 16 15 17 Rate Blood Pressure 137/66 122/64 O2 Sat by Pulse 95 98 Oximetry 04/19/18 04/19/18 04/19/18 02:30 02:45 03:00 Temperature Pulse Rate 124 H 127 H 124 H Pulse Rate [ From Monitor] Respiratory 12 12 11 L Rate Blood Pressure 122/64 119/68 119/68 O2 Sat by Pulse 99 98 99 Oximetry 04/19/18 04/19/18 04/19/18 03:04 03:15 03:30 Temperature Pulse Rate 122 H 122 H Pulse Rate [ From Monitor] Respiratory 14 10 L 13 Rate Blood Pressure 132/67 126/63 O2 Sat by Pulse 98 98 Oximetry 04/19/18 04/19/18 04/19/18 03:46 04:00 04:15 Temperature 98.3 F Pulse Rate 121 H 123 H 123 H Pulse Rate [ 122 H From Monitor] Respiratory 14 14 18 Rate Blood Pressure 116/36 135/64 135/64 O2 Sat by Pulse 98 97 98 Oximetry 04/19/18 04/19/18 04/19/18 04:30 04:46 05:00 Temperature Pulse Rate 127 H 125 H 125 H Pulse Rate [ From Monitor] Respiratory 20 14 19 Rate Blood Pressure 135/64 127/65 123/71 O2 Sat by Pulse 97 97 98 Oximetry 04/19/18 04/19/18 04/19/18 05:15 05:30 05:45 Temperature Pulse Rate 127 H 128 H 127 H Pulse Rate [ From Monitor] Respiratory 13 11 L 14 Rate Blood Pressure 116/72 116/72 107/70 O2 Sat by Pulse 96 96 98 Oximetry 04/19/18 04/19/18 04/19/18 06:00 06:15 06:29 Temperature Pulse Rate 126 H 126 H Pulse Rate [ From Monitor] Respiratory 14 11 L 14 Rate Blood Pressure 107/70 121/71 O2 Sat by Pulse 98 99 Oximetry - Labs CBC & Chem 7: 04/19/18 05:19 04/19/18 05:19 Labs: Abnormal lab results 04/18/18 04/18/18 04/18/18 Range/Units 14:30 14:30 14:30 WBC 18.6 H (4.5-11.0) K/mm3 RDW (13.2-15.2) % Seg Neuts % (Manual) 79.0 H (40.0-70.0) % Lymphocytes % (Manual) 4.0 L (13.4-35.0) % Seg Neutrophils # Man 14.7 H (1.8-7.7) K/mm3 Lymphocytes # (Manual) 0.7 L (1.2-5.4) K/mm3 PT 16.3 H (12.2-14.9) Sec. INR 1.27 H (0.87-1.13) VBG pH (7.320-7.420) Sodium 121 L (137-145) mmol/L Potassium 3.0 L (3.6-5.0) mmol/L Chloride 78.0 L (98-107) mmol/L Carbon Dioxide (22-30) mmol/L Creatinine 0.5 L (0.7-1.2) mg/dL Glucose 110 H (65-100) mg/dL Lactic Acid (0.7-2.0) mmol/L Calcium (8.4-10.2) mg/dL Total Bilirubin 1.30 H (0.1-1.2) mg/dL AST 42 H (5-40) units/L Total Protein (6.3-8.2) g/dL Albumin 3.1 L (3.9-5) g/dL 04/18/18 04/18/18 04/18/18 Range/Units 14:30 14:30 23:59 WBC (4.5-11.0) K/mm3 RDW 15.8 H (13.2-15.2) % Seg Neuts % (Manual) 78.0 H (40.0-70.0) % Lymphocytes % (Manual) 6.0 L (13.4-35.0) % Seg Neutrophils # Man (1.8-7.7) K/mm3 Lymphocytes # (Manual) 0.5 L (1.2-5.4) K/mm3 PT (12.2-14.9) Sec. INR (0.87-1.13) VBG pH 7.439 H (7.320-7.420) Sodium (137-145) mmol/L Potassium (3.6-5.0) mmol/L Chloride (98-107) mmol/L Carbon Dioxide (22-30) mmol/L Creatinine (0.7-1.2) mg/dL Glucose (65-100) mg/dL Lactic Acid 3.60 H* (0.7-2.0) mmol/L Calcium (8.4-10.2) mg/dL Total Bilirubin (0.1-1.2) mg/dL AST (5-40) units/L Total Protein (6.3-8.2) g/dL Albumin (3.9-5) g/dL 04/18/18 04/19/18 04/19/18 Range/Units 23:59 05:19 05:19 WBC 15.0 H (4.5-11.0) K/mm3 RDW 15.3 H (13.2-15.2) % Seg Neuts % (Manual) (40.0-70.0) % Lymphocytes % (Manual) (13.4-35.0) % Seg Neutrophils # Man (1.8-7.7) K/mm3 Lymphocytes # (Manual) (1.2-5.4) K/mm3 PT (12.2-14.9) Sec. INR (0.87-1.13) VBG pH (7.320-7.420) Sodium 130 L D 133 L (137-145) mmol/L Potassium 3.5 L 3.3 L (3.6-5.0) mmol/L Chloride (98-107) mmol/L Carbon Dioxide 20 L D (22-30) mmol/L Creatinine 0.5 L 0.6 L (0.7-1.2) mg/dL Glucose 140 H 115 H (65-100) mg/dL Lactic Acid (0.7-2.0) mmol/L Calcium 7.5 L 7.4 L (8.4-10.2) mg/dL Total Bilirubin (0.1-1.2) mg/dL AST (5-40) units/L Total Protein 4.4 L D 4.1 L (6.3-8.2) g/dL Albumin 2.0 L 1.9 L (3.9-5) g/dL 04/19/18 Range/Units 05:19 WBC (4.5-11.0) K/mm3 RDW (13.2-15.2) % Seg Neuts % (Manual) (40.0-70.0) % Lymphocytes % (Manual) (13.4-35.0) % Seg Neutrophils # Man (1.8-7.7) K/mm3 Lymphocytes # (Manual) (1.2-5.4) K/mm3 PT 19.4 H (12.2-14.9) Sec. INR 1.59 H (0.87-1.13) VBG pH (7.320-7.420) Sodium (137-145) mmol/L Potassium (3.6-5.0) mmol/L Chloride (98-107) mmol/L Carbon Dioxide (22-30) mmol/L Creatinine (0.7-1.2) mg/dL Glucose (65-100) mg/dL Lactic Acid (0.7-2.0) mmol/L Calcium (8.4-10.2) mg/dL Total Bilirubin (0.1-1.2) mg/dL AST (5-40) units/L Total Protein (6.3-8.2) g/dL Albumin (3.9-5) g/dL
[2018-04-19 07:00] LABS: Band Neutrophils # (Manual) 5.9 K/mm3; Basophils % (Manual) 0 % (0.0-1.8); Eosinophils % (Manual) 0 % (0.0-4.3); Platelet Estimate Consistent w Auto; RBC Morphology Normal; Total Cells Counted 100
[2018-04-19] MEDS: DIFLUCAN 200 MG/100 ML BAG IV SCH (09:40)
[2018-04-19] MEDS: ZANAFLEX PO SCH (09:42)
[2018-04-19] MEDS ORDERED: CITALOPRAM HYDROBROMIDE 40 MG PO SCH (10:00)
[2018-04-19] MEDS ORDERED: NON-FORMULARY (Tizanidine Hcl [Zanaflex] 2 MG) PO SCH (10:00)
[2018-04-19] MEDS: celeXA PO SCH (11:18)
--- NOTE | 2018-04-19 11:20 | Consultation ---
History of Present Illness - Reason for Consult Consult date: 04/19/18 Intra-abdominal abscess Requesting physician: ANA PAULA GODWIN - History of Present Illness The patient is a 57-year-old female with hypertension, neurofibromatosis, hepatitis C, COPD, nicotine dependence presented to the emergency room yesterday with complaints of abdominal pain going on for [address] scan obtained in the emergency room revealed a ruptured appendix with associated intra-abdominal abscess. General surgery was consulted and the patient underwent an emergent exploratory laparotomy with evacuation of pelvic abscess. She was noted to have a gangrenous, perforated appendix eroding including into the small bowel. As per the op note, the abscess could not be drained as the entire abscess and inflammatory process had trapped the small bowel, which was mobilized and she underwent an ileocolic anastomosis. ID was consulted for antibiotic recommendations. She currently complains of ongoing abdominal pain, has NG tube to suction. Regarding Hep C, she denies any IVDU, reports no prior history of treatment. Review of Systems: General: fevers + on admission HEENT: no new visual disturbance Respiratory: No cough, sputum, hemoptysis or shortness of breath Cardiovascular: No chest pain, syncope Gastrointestinal: No nausea, vomiting or diarrhea Genitourinary: No dysuria or hematuria Musculoskeletal: No new or worsening neck pain or back pain Neurologic: No headaches, seizures Hematologic: No easy bruising or bleeding Endocrine: No night sweats or acute weight loss Skin: negative for rash, jaundice Psychiatric: No suicidal or homicidal ideation Past History Past Medical History: COPD, hepatitis, hypertension, other (Neurofibromatosis) Past Surgical History: hysterectomy Social history: smoking Family history: hypertension Medications and Allergies Allergies Allergy/AdvReac Type Severity Reaction Status Date / Time NSAIDS (Non-Steroidal Allergy Unknown Verified 04/08/18 03:20 Anti-Inflamma Home Medications Medication Instructions Recorded Confirmed Last Taken Type Citalopram Hydrobromide 40 mg PO QDAY 07/31/17 07/31/17 Unknown History [Citalopram HBr] Gabapentin [Neurontin] 800 mg PO 5XD 07/31/17 08/01/17 Unknown History Losartan 50 mg PO QDAY 07/31/17 08/01/17 Unknown History Tizanidine HCl [Zanaflex] 2 mg PO QDAY 07/31/17 08/01/17 Unknown History busPIRone [Buspar] 5 mg PO BID 07/31/17 07/31/17 Unknown History Ciprofloxacin HCl [Ciprofloxacin 500 mg PO Q12HR #10 tab 08/01/17 Unknown Rx TAB] Active Meds: Active Medications Albuterol (Proventil) 2.5 mg IH Q3HRT PRN PRN Reason: Shortness Of Breath Buspirone HCl (Buspar) 5 mg PO BID PENDING SALE TO [facility] Last Admin: 04/19/18 09:42 Dose: Not Given Documented by: Citalopram Hydrobromide (Celexa) 40 mg PO DAILY PENDING SALE TO [facility] Famotidine (Pepcid) 20 mg IV BID PENDING SALE TO [facility] Last Admin: 04/19/18 09:41 Dose: 20 mg Documented by: Gabapentin (Neurontin) 800 mg PO 5XD PENDING SALE TO [facility] Last Admin: 04/19/18 09:42 Dose: Not Given Documented by: Hydromorphone HCl (Dilaudid) 1 mg IV Q4H PRN PRN Reason: Pain , Severe (7-10) Last Admin: 04/19/18 11:15 Dose: 1 mg Documented by: Potassium Chloride 20 meq/ (Lactated Ringer's) 1,010 mls @ 125 mls/hr IV DIRECT DUSTIN Last Admin: 04/19/18 09:46 Dose: 125 mls/hr Documented by: Metronidazole (Flagyl 500 Mg/100 Ml) 500 mg in 100 mls @ 100 mls/hr IV Q8HR DUSTIN; Protocol Last Admin: 04/19/18 05:21 Dose: 100 mls/hr Documented by: Fluconazole (Diflucan) 200 mg in 100 mls @ 100 mls/hr IV Q24HR DUSTIN; Protocol Last Admin: 04/19/18 09:40 Dose: 100 mls/hr Documented by: Piperacillin Sod/Tazobactam Sod (Zosyn/Ns 4.5gm/100ml) 4.5 gm in 100 mls @ 200 mls/hr IV Q8H PENDING SALE TO [facility]; Protocol Last Admin: 04/19/18 06:30 Dose: 200 mls/hr Documented by: Morphine Sulfate (Morphine) 4 mg IV Q3H PRN PRN Reason: Pain , Severe (7-10) Last Admin: 04/19/18 09:41 Dose: 4 mg Documented by: Ondansetron HCl (Zofran) 4 mg IV Q4H PRN PRN Reason: N/V unrelieved by Reglan Last Admin: 04/19/18 05:21 Dose: 4 mg Documented by: Sodium Chloride (Sodium Chloride Flush Syringe 10 Ml) 10 ml IV BID PENDING SALE TO [facility] Last Admin: 04/19/18 09:42 Dose: 10 ml Documented by: Sodium Chloride (Sodium Chloride Flush Syringe 10 Ml) 10 ml IV PRN PRN PRN Reason: LINE FLUSH Tizanidine HCl (Zanaflex) 2 mg PO DAILY PENDING SALE TO [facility] Last Admin: 04/19/18 09:42 Dose: Not Given Documented by: Physical Examination - Physical Exam Narrative exam: Physical Exam: Constitutional: Alert, cooperative. No acute distress Head, Ears, Nose: Normocephalic, atraumatic. External ears, nose normal Eyes: Conjunctivae/corneas clear. No icterus. No ptosis. Neck: Supple, no meningeal signs Oral: poor dentition, no thrush Cardiovascular: S1, S2 normal. Respiratory: Good air entry, clear to auscultation bilaterally GI: tender, bowel sounds absent. drain + Musculoskeletal: No pedal edema, no cyanosis. Skin: No rash or abscess. Tattoos +, fibromas + Hem/Lymphatic: No palpable cervical or supraclavicular nodes. No lymphangitis Psych: Mood ok. Affect normal Neurological: Awake, alert, oriented. No gross abnormality - Constitutional Vitals: Vital Signs Temp Pulse Resp BP Pulse Ox 99.7 F H 120 H 12 137/74 99 04/19/18 08:00 04/19/18 10:00 04/19/18 10:00 04/19/18 10:00 04/19/18 10:00 Temperature -Last 24 Hours Temperature 99.7 F Temperature 98.3 F Temperature 98.4 F Temperature 99.7 F Temperature 99.8 F Temperature 99.1 F Temperature 101.9 F Temperature 101.7 F Results - Labs CBC & Chem 7: 04/19/18 05:19 04/19/18 05:19 Labs: Abnormal lab results 04/18/18 04/18/18 04/18/18 Range/Units 14:30 14:30 14:30 WBC 18.6 H (4.5-11.0) K/mm3 RDW (13.2-15.2) % Seg Neuts % (Manual) 79.0 H (40.0-70.0) % Lymphocytes % (Manual) 4.0 L (13.4-35.0) % Seg Neutrophils # Man 14.7 H (1.8-7.7) K/mm3 Lymphocytes # (Manual) 0.7 L (1.2-5.4) K/mm3 PT 16.3 H (12.2-14.9) Sec. INR 1.27 H (0.87-1.13) VBG pH (7.320-7.420) Sodium 121 L (137-145) mmol/L Potassium 3.0 L (3.6-5.0) mmol/L Chloride 78.0 L (98-107) mmol/L Carbon Dioxide (22-30) mmol/L Creatinine 0.5 L (0.7-1.2) mg/dL Glucose 110 H (65-100) mg/dL Lactic Acid (0.7-2.0) mmol/L Calcium (8.4-10.2) mg/dL Total Bilirubin 1.30 H (0.1-1.2) mg/dL AST 42 H (5-40) units/L Total Protein (6.3-8.2) g/dL Albumin 3.1 L (3.9-5) g/dL 04/18/18 04/18/18 04/18/18 Range/Units 14:30 14:30 23:59 WBC (4.5-11.0) K/mm3 RDW 15.8 H (13.2-15.2) % Seg Neuts % (Manual) 78.0 H (40.0-70.0) % Lymphocytes % (Manual) 6.0 L (13.4-35.0) % Seg Neutrophils # Man (1.8-7.7) K/mm3 Lymphocytes # (Manual) 0.5 L (1.2-5.4) K/mm3 PT (12.2-14.9) Sec. INR (0.87-1.13) VBG pH 7.439 H (7.320-7.420) Sodium (137-145) mmol/L Potassium (3.6-5.0) mmol/L Chloride (98-107) mmol/L Carbon Dioxide (22-30) mmol/L Creatinine (0.7-1.2) mg/dL Glucose (65-100) mg/dL Lactic Acid 3.60 H* (0.7-2.0) mmol/L Calcium (8.4-10.2) mg/dL Total Bilirubin (0.1-1.2) mg/dL AST (5-40) units/L Total Protein (6.3-8.2) g/dL Albumin (3.9-5) g/dL 04/18/18 04/19/18 04/19/18 Range/Units 23:59 05:19 05:19 WBC 15.0 H (4.5-11.0) K/mm3 RDW 15.3 H (13.2-15.2) % Seg Neuts % (Manual) (40.0-70.0) % Lymphocytes % (Manual) 5.0 L (13.4-35.0) % Seg Neutrophils # Man 8.3 H (1.8-7.7) K/mm3 Lymphocytes # (Manual) 0.8 L (1.2-5.4) K/mm3 PT (12.2-14.9) Sec. INR (0.87-1.13) VBG pH (7.320-7.420) Sodium 130 L D 133 L (137-145) mmol/L Potassium 3.5 L 3.3 L (3.6-5.0) mmol/L Chloride (98-107) mmol/L Carbon Dioxide 20 L D (22-30) mmol/L Creatinine 0.5 L 0.6 L (0.7-1.2) mg/dL Glucose 140 H 115 H (65-100) mg/dL Lactic Acid (0.7-2.0) mmol/L Calcium 7.5 L 7.4 L (8.4-10.2) mg/dL Total Bilirubin (0.1-1.2) mg/dL AST (5-40) units/L Total Protein 4.4 L D 4.1 L (6.3-8.2) g/dL Albumin 2.0 L 1.9 L (3.9-5) g/dL 04/19/18 Range/Units 05:19 WBC (4.5-11.0) K/mm3 RDW (13.2-15.2) % Seg Neuts % (Manual) (40.0-70.0) % Lymphocytes % (Manual) (13.4-35.0) % Seg Neutrophils # Man (1.8-7.7) K/mm3 Lymphocytes # (Manual) (1.2-5.4) K/mm3 PT 19.4 H (12.2-14.9) Sec. INR 1.59 H (0.87-1.13) VBG pH (7.320-7.420) Sodium (137-145) mmol/L Potassium (3.6-5.0) mmol/L Chloride (98-107) mmol/L Carbon Dioxide (22-30) mmol/L Creatinine (0.7-1.2) mg/dL Glucose (65-100) mg/dL Lactic Acid (0.7-2.0) mmol/L Calcium (8.4-10.2) mg/dL Total Bilirubin (0.1-1.2) mg/dL AST (5-40) units/L Total Protein (6.3-8.2) g/dL Albumin (3.9-5) g/dL - Imaging and Cardiology CT scan - abdomen: report reviewed, image reviewed (IA abscess with perforated appendicitis.) Assessment and Plan Cultures: 04/18/2018 blood cultures) progress 04/18/2018 urine culture: No growth 04/19/2018 intra-abdominal culture: In process A/P: 57-year-old female with hypertension, neurofibromatosis, hepatitis C, COPD, nicotine dependence admitted with: 1) Sepsis secondary to gangrenous and perforated appendix causing intra- abdominal/pelvic abscess: Status post exploratory laparotomy and evacuation of pelvic abscess. Continue abx. Given complicated intra-abdominal findings, may need a slightly longer course of abx than usual. 2) Chronic Hep C: untreated. Outpatient ID clinic follow up. Recs: - Continue Zosyn and fluconazole - Duration of therapy will depend on clinical course given complicated intra- abdominal findings in OR Will follow. Please call with questions. MD Reji [facility] C: [phone] O: [phone] F: [phone]
--- NOTE | 2018-04-19 11:54 | Progress Note ---
Assessment and Plan Assessment and plan: Sepsis. Etiology secondary to gangrenous and perforated appendix causing intra- abdominal/pelvic abscess. Patient is status post exploratory laparotomy with appendectomy and evacuation of pelvic abscess. ID following. Continue antibiotics. Chronic hep C. Untreated. Outpatient follow-up. Hypertension. Continue antihypertensive medications. COPD. Compensated. Neurofibromatosis Tobacco abuse. Patient will be counseled on smoking cessation. History Interval history: The patient is a 57-year-old female with hypertension, neurofibromatosis, he patitis C, COPD, nicotine dependence presented to the emergency room on 04/18/18 with complaints of abdominal pain going on for [address] scan obtained in the emergency room revealed a ruptured appendix with associated intra-abdominal abscess. General surgery was consulted and the patient underwent an emergent exploratory laparotomy with evacuation of pelvic abscess. She was noted to have a gangrenous, perforated appendix eroding including into the small bowel. As per the op note, the abscess could not be drained as the entire abscess and inflammatory process had trapped the small bowel, which was mobilized and she underwent an ileocolic anastomosis. ID was consulted for antibiotic recommen dations. She currently complains of ongoing abdominal pain, has NG tube to suction. Hospitalist Physical - Constitutional Vitals: Temp Pulse Resp BP Pulse Ox 99.7 F H 120 H 12 137/74 99 04/19/18 08:00 04/19/18 10:00 04/19/18 10:00 04/19/18 10:00 04/19/18 10:00 General appearance: Present: mild distress - EENT Eyes: Present: PERRL, EOM intact ENT: hearing intact, clear oral mucosa, dentition normal - Neck Neck: Present: supple, normal ROM - Respiratory Respiratory effort: normal Respiratory: bilateral: CTA - Cardiovascular Rhythm: regular Heart Sounds: Present: S1 & S2. Absent: gallop, rub - Extremities Extremities: no ischemia, No edema, Full ROM - Abdominal General gastrointestinal: soft, tender, non-distended, normal bowel sounds Localized gastrointestinal: tender: diffuse (mild), RUQ (moderate) - Integumentary Integumentary: Present: clear, warm, dry - Neurologic Neurologic: CNII-XII intact, moves all extremities Results - Labs CBC & Chem 7: 04/19/18 05:19 04/19/18 05:19 Labs: Laboratory Last Values WBC 15.0 K/mm3 (4.5-11.0) H 04/19/18 05:19 RBC 4.16 M/mm3 (3.65-5.03) 04/19/18 05:19 Hgb 11.6 gm/dl (10.1-14.3) 04/19/18 05:19 Hct 35.4 % (30.3-42.9) 04/19/18 05:19 MCV 85 fl (79-97) 04/19/18 05:19 MCH 28 pg (28-32) 04/19/18 05:19 MCHC 33 % (30-34) 04/19/18 05:19 RDW 15.3 % (13.2-15.2) H 04/19/18 05:19 Plt Count 315 K/mm3 (140-440) 04/19/18 05:19 Add Manual Diff Complete 04/19/18 05:19 Total Counted 100 04/19/18 05:19 Seg Neuts % (Manual) 55.0 % (40.0-70.0) 04/19/18 05:19 Band Neutrophils % 39.0 % 04/19/18 05:19 Lymphocytes % (Manual) 5.0 % (13.4-35.0) L 04/19/18 05:19 Reactive Lymphs % (Man) 0 % 04/19/18 05:19 Monocytes % (Manual) 1.0 % (0.0-7.3) 04/19/18 05:19 Eosinophils % (Manual) 0 % (0.0-4.3) 04/19/18 05:19 Basophils % (Manual) 0 % (0.0-1.8) 04/19/18 05:19 Metamyelocytes % 0 % 04/19/18 05:19 Myelocytes % 0 % 04/19/18 05:19 Promyelocytes % 0 % 04/19/18 05:19 Blast Cells % 0 % 04/19/18 05:19 Nucleated RBC % Not Reportable 04/19/18 05:19 Seg Neutrophils # Man 8.3 K/mm3 (1.8-7.7) H 04/19/18 05:19 Band Neutrophils # 5.9 K/mm3 04/19/18 05:19 Lymphocytes # (Manual) 0.8 K/mm3 (1.2-5.4) L 04/19/18 05:19 Abs React Lymphs (Man) 0.0 K/mm3 04/19/18 05:19 Monocytes # (Manual) 0.2 K/mm3 (0.0-0.8) 04/19/18 05:19 Eosinophils # (Manual) 0.0 K/mm3 (0.0-0.4) 04/19/18 05:19 Basophils # (Manual) 0.0 K/mm3 (0.0-0.1) 04/19/18 05:19 Metamyelocytes # 0.0 K/mm3 04/19/18 05:19 Myelocytes # 0.0 K/mm3 04/19/18 05:19 Promyelocytes # 0.0 K/mm3 04/19/18 05:19 Blast Cells # 0.0 K/mm3 04/19/18 05:19 WBC Morphology Not Reportable 04/19/18 05:19 Hypersegmented Neuts Not Reportable 04/19/18 05:19 Hyposegmented Neuts Not Reportable 04/19/18 05:19 Hypogranular Neuts Not Reportable 04/19/18 05:19 Smudge Cells Not Reportable 04/19/18 05:19 Toxic Granulation Not Reportable 04/19/18 05:19 Toxic Vacuolation Not Reportable 04/19/18 05:19 Dohle Bodies Not Reportable 04/19/18 05:19 Pelger-Huet Anomaly Not Reportable 04/19/18 05:19 Nicole Rods Not Reportable 04/19/18 05:19 Platelet Estimate Consistent w auto 04/19/18 05:19 Clumped Platelets Not Reportable 04/19/18 05:19 Plt Clumps, EDTA Not Reportable 04/19/18 05:19 Large Platelets Not Reportable 04/19/18 05:19 Giant Platelets Not Reportable 04/19/18 05:19 Platelet Satelliting Not Reportable 04/19/18 05:19 Plt Morphology Comment Not Reportable 04/19/18 05:19 RBC Morphology Normal 04/19/18 05:19 Dimorphic RBCs Not Reportable 04/19/18 05:19 Polychromasia Not Reportable 04/19/18 05:19 Hypochromasia Not Reportable 04/19/18 05:19 Poikilocytosis Not Reportable 04/19/18 05:19 Anisocytosis Not Reportable 04/19/18 05:19 Microcytosis Not Reportable 04/19/18 05:19 Macrocytosis Not Reportable 04/19/18 05:19 Spherocytes Not Reportable 04/19/18 05:19 Pappenheimer Bodies Not Reportable 04/19/18 05:19 Sickle Cells Not Reportable 04/19/18 05:19 Target Cells Not Reportable 04/19/18 05:19 Tear Drop Cells Not Reportable 04/19/18 05:19 Ovalocytes Not Reportable 04/19/18 05:19 Helmet Cells Not Reportable 04/19/18 05:19 [place] Bodies Not Reportable 04/19/18 05:19 [place] Rings Not Reportable 04/19/18 05:19 Philip Cells Not Reportable 04/19/18 05:19 Bite Cells Not Reportable 04/19/18 05:19 Crenated Cell Not Reportable 04/19/18 05:19 Elliptocytes Not Reportable 04/19/18 05:19 Acanthocytes (Spur) Not Reportable 04/19/18 05:19 Rouleaux Not Reportable 04/19/18 05:19 Hemoglobin C Crystals Not Reportable 04/19/18 05:19 Schistocytes Not Reportable 04/19/18 05:19 Malaria parasites Not Reportable 04/19/18 05:19 Hung Bodies Not Reportable 04/19/18 05:19 Hem Pathologist Commnt No 04/19/18 05:19 PT 19.4 Sec. (12.2-14.9) H 04/19/18 05:19 INR 1.59 (0.87-1.13) H 04/19/18 05:19 APTT 29.4 Sec. (24.2-36.6) 04/19/18 05:19 POC ABG pH 7.367 (7.35-7.45) 04/19/18 00:19 POC ABG pCO2 36.8 (35-45) 04/19/18 00:19 POC ABG pO2 84 (80-105) 04/19/18 00:19 POC ABG HCO3 21.1 04/19/18 00:19 POC ABG Total CO2 22 04/19/18 00:19 POC ABG O2 Sat 96 04/19/18 00:19 POC ABG Base Excess -4 04/19/18 00:19 VBG pH 7.439 (7.320-7.420) H 04/18/18 14:30 FiO2 32 % 04/19/18 00:19 Sodium 133 mmol/L (137-145) L 04/19/18 05:19 Potassium 3.3 mmol/L (3.6-5.0) L 04/19/18 05:19 Chloride 100.6 mmol/L (98-107) 04/19/18 05:19 Carbon Dioxide 22 mmol/L (22-30) 04/19/18 05:19 Anion Gap 14 mmol/L 04/19/18 05:19 BUN 10 mg/dL (7-17) 04/19/18 05:19 Creatinine 0.6 mg/dL (0.7-1.2) L 04/19/18 05:19 Estimated GFR > 60 ml/min 04/19/18 05:19 BUN/Creatinine Ratio 17 % 04/19/18 05:19 Glucose 115 mg/dL (65-100) H 04/19/18 05:19 Lactic Acid 0.90 mmol/L (0.7-2.0) 04/18/18 18:41 Calcium 7.4 mg/dL (8.4-10.2) L 04/19/18 05:19 Total Bilirubin 1.20 mg/dL (0.1-1.2) 04/19/18 05:19 AST 35 units/L (5-40) 04/19/18 05:19 ALT 23 units/L (7-56) 04/19/18 05:19 Alkaline Phosphatase 60 units/L (35-129) 04/19/18 05:19 Total Protein 4.1 g/dL (6.3-8.2) L 04/19/18 05:19 Albumin 1.9 g/dL (3.9-5) L 04/19/18 05:19 Albumin/Globulin Ratio 0.9 % 04/19/18 05:19 Urine Color Sophie (Yellow) 04/18/18 16:45 Urine Turbidity Clear (Clear) 04/18/18 16:45 Urine pH 5.0 (5.0-7.0) 04/18/18 16:45 Ur Specific [place] 1.013 (1.003-1.030) 04/18/18 16:45 Urine Protein <15 mg/dl mg/dL (Negative) 04/18/18 16:45 Urine Glucose (UA) Neg mg/dL (Negative) 04/18/18 16:45 Urine Ketones Neg mg/dL (Negative) 04/18/18 16:45 Urine Blood Neg (Negative) 04/18/18 16:45 Urine Nitrite Neg (Negative) 04/18/18 16:45 Urine Bilirubin Neg (Negative) 04/18/18 16:45 Urine Urobilinogen 4.0 mg/dL (<2.0) 04/18/18 16:45 Ur Leukocyte Esterase Neg (Negative) 04/18/18 16:45 Urine WBC (Auto) 4.0 /HPF (0.0-6.0) 04/18/18 16:45 Urine RBC (Auto) 3.0 /HPF (0.0-6.0) 04/18/18 16:45 U Epithel Cells (Auto) 2.0 /HPF (0-13.0) 04/18/18 16:45 Urine Bacteria (Auto) 2+ /HPF (Negative) 04/18/18 16:45 Urine Mucus Few /HPF 04/18/18 16:45
--- NOTE | 2018-04-19 12:03 | Progress Note ---
Assessment and Plan POD # 1 Pt tachycardic, septic. but stable. c/o pain and "thirsty". Abd binder in place. dressings dry surgically stable electrolytes improved rising PT FFP transfusion. vit K awaiting ID eval f/u labs in am Selected Entries 04/19/18 04/19/18 08:00 11:45 Temperature 99.7 F H Pulse Rate 118 H Respiratory 18 Rate Blood Pressure 156/71 Laboratory Tests 04/19/18 04/19/18 04/19/18 05:19 05:19 05:19 WBC 15.0 H Hgb 11.6 Hct 35.4 PT 19.4 H INR 1.59 H Sodium 133 L Potassium 3.3 L Chloride 100.6 BUN 10 Creatinine 0.6 L Objective Vital Signs - 12hr 04/19/18 04/19/18 04/19/18 00:11 00:18 00:19 Temperature 99.7 F H Pulse Rate 110 H 117 H Pulse Rate [ From Monitor] Respiratory 21 22 Rate Blood Pressure 146/71 146/71 O2 Sat by Pulse 97 97 96 Oximetry 04/19/18 04/19/18 04/19/18 00:38 00:45 00:55 Temperature 98.4 F Pulse Rate 123 H 122 H Pulse Rate [ From Monitor] Respiratory 15 14 Rate Blood Pressure 129/68 O2 Sat by Pulse 95 Oximetry 04/19/18 04/19/18 04/19/18 01:00 01:15 01:21 Temperature Pulse Rate 123 H 124 H Pulse Rate [ 125 H From Monitor] Respiratory 16 16 10 L Rate Blood Pressure 129/68 134/71 O2 Sat by Pulse 98 96 Oximetry 04/19/18 04/19/18 04/19/18 01:30 01:45 01:51 Temperature Pulse Rate 120 H 121 H Pulse Rate [ From Monitor] Respiratory 16 22 16 Rate Blood Pressure 131/65 137/66 O2 Sat by Pulse 97 98 Oximetry 04/19/18 04/19/18 04/19/18 02:00 02:15 02:30 Temperature Pulse Rate 125 H 124 H 124 H Pulse Rate [ From Monitor] Respiratory 15 17 12 Rate Blood Pressure 137/66 122/64 122/64 O2 Sat by Pulse 95 98 99 Oximetry 04/19/18 04/19/18 04/19/18 02:45 03:00 03:04 Temperature Pulse Rate 127 H 124 H Pulse Rate [ From Monitor] Respiratory 12 11 L 14 Rate Blood Pressure 119/68 119/68 O2 Sat by Pulse 98 99 Oximetry 04/19/18 04/19/18 04/19/18 03:15 03:30 03:46 Temperature Pulse Rate 122 H 122 H 121 H Pulse Rate [ From Monitor] Respiratory 10 L 13 14 Rate Blood Pressure 132/67 126/63 116/36 O2 Sat by Pulse 98 98 98 Oximetry 04/19/18 04/19/18 04/19/18 04:00 04:15 04:30 Temperature 98.3 F Pulse Rate 123 H 123 H 127 H Pulse Rate [ 122 H From Monitor] Respiratory 14 18 20 Rate Blood Pressure 135/64 135/64 135/64 O2 Sat by Pulse 97 98 97 Oximetry 04/19/18 04/19/18 04/19/18 04:46 05:00 05:15 Temperature Pulse Rate 125 H 125 H 127 H Pulse Rate [ From Monitor] Respiratory 14 19 13 Rate Blood Pressure 127/65 123/71 116/72 O2 Sat by Pulse 97 98 96 Oximetry 04/19/18 04/19/18 04/19/18 05:30 05:45 06:00 Temperature Pulse Rate 128 H 127 H 126 H Pulse Rate [ From Monitor] Respiratory 11 L 14 14 Rate Blood Pressure 116/72 107/70 107/70 O2 Sat by Pulse 96 98 98 Oximetry 04/19/18 04/19/18 04/19/18 06:15 06:29 06:30 Temperature Pulse Rate 126 H 124 H Pulse Rate [ From Monitor] Respiratory 11 L 14 16 Rate Blood Pressure 121/71 121/71 O2 Sat by Pulse 99 99 Oximetry 04/19/18 04/19/18 04/19/18 06:45 07:00 07:15 Temperature Pulse Rate 123 H 124 H 120 H Pulse Rate [ From Monitor] Respiratory 12 15 14 Rate Blood Pressure 117/68 117/68 116/63 O2 Sat by Pulse 99 99 100 Oximetry 04/19/18 04/19/18 04/19/18 07:30 07:33 07:45 Temperature Pulse Rate 118 H 118 H Pulse Rate [ From Monitor] Respiratory 19 15 Rate Blood Pressure 125/65 129/68 O2 Sat by Pulse 100 99 100 Oximetry 04/19/18 04/19/18 04/19/18 08:00 08:15 08:30 Temperature 99.7 F H Pulse Rate 120 H 119 H 120 H Pulse Rate [ From Monitor] Respiratory 18 12 15 Rate Blood Pressure 129/71 115/58 116/59 O2 Sat by Pulse 99 98 98 Oximetry 04/19/18 04/19/18 04/19/18 08:46 09:00 09:15 Temperature Pulse Rate 120 H 117 H 115 H Pulse Rate [ From Monitor] Respiratory 14 15 13 Rate Blood Pressure 117/78 117/78 140/70 O2 Sat by Pulse 99 99 99 Oximetry 04/19/18 04/19/18 04/19/18 09:30 09:45 10:00 Temperature Pulse Rate 117 H 117 H 118 H Pulse Rate [ From Monitor] Respiratory 24 14 12 Rate Blood Pressure 146/70 127/76 137/74 O2 Sat by Pulse 100 99 99 Oximetry 04/19/18 04/19/18 04/19/18 10:15 10:30 10:45 Temperature Pulse Rate 120 H 117 H 117 H Pulse Rate [ From Monitor] Respiratory 15 14 12 Rate Blood Pressure 143/76 154/73 153/79 O2 Sat by Pulse 99 100 100 Oximetry 04/19/18 04/19/18 04/19/18 11:00 11:15 11:30 Temperature Pulse Rate 120 H 121 H 117 H Pulse Rate [ From Monitor] Respiratory 16 20 16 Rate Blood Pressure 143/71 143/71 O2 Sat by Pulse 100 100 100 Oximetry 04/19/18 11:45 Temperature Pulse Rate 118 H Pulse Rate [ From Monitor] Respiratory 18 Rate Blood Pressure 156/71 O2 Sat by Pulse 100 Oximetry - Labs 04/19/18 05:19 04/19/18 05:19 Diabetes panel 04/18/18 04/18/18 04/19/18 Range/Units 14:30 23:59 05:19 Sodium 121 L 130 L D 133 L (137-145) mmol/L Potassium 3.0 L 3.5 L 3.3 L (3.6-5.0) mmol/L Chloride 78.0 L 99.6 100.6 (98-107) mmol/L Carbon Dioxide 29 20 L D 22 (22-30) mmol/L BUN 10 8 10 (7-17) mg/dL Creatinine 0.5 L 0.5 L 0.6 L (0.7-1.2) mg/dL Glucose 110 H 140 H 115 H (65-100) mg/dL Calcium 8.5 7.5 L 7.4 L (8.4-10.2) mg/dL AST 42 H 27 35 (5-40) units/L ALT 38 24 23 (7-56) units/L Alkaline Phosphatase 95 69 60 (35-129) units/L Total Protein 6.7 4.4 L D 4.1 L (6.3-8.2) g/dL Albumin 3.1 L 2.0 L 1.9 L (3.9-5) g/dL Calcium panel 04/18/18 04/18/18 04/19/18 Range/Units 14:30 23:59 05:19 Calcium 8.5 7.5 L 7.4 L (8.4-10.2) mg/dL Albumin 3.1 L 2.0 L 1.9 L (3.9-5) g/dL Pituitary panel 04/18/18 04/18/18 04/19/18 Range/Units 14:30 23:59 05:19 Sodium 121 L 130 L D 133 L (137-145) mmol/L Potassium 3.0 L 3.5 L 3.3 L (3.6-5.0) mmol/L Chloride 78.0 L 99.6 100.6 (98-107) mmol/L Carbon Dioxide 29 20 L D 22 (22-30) mmol/L BUN 10 8 10 (7-17) mg/dL Creatinine 0.5 L 0.5 L 0.6 L (0.7-1.2) mg/dL Glucose 110 H 140 H 115 H (65-100) mg/dL Calcium 8.5 7.5 L 7.4 L (8.4-10.2) mg/dL Adrenal panel 04/18/18 04/18/18 04/19/18 Range/Units 14:30 23:59 05:19 Sodium 121 L 130 L D 133 L (137-145) mmol/L Potassium 3.0 L 3.5 L 3.3 L (3.6-5.0) mmol/L Chloride 78.0 L 99.6 100.6 (98-107) mmol/L Carbon Dioxide 29 20 L D 22 (22-30) mmol/L BUN 10 8 10 (7-17) mg/dL Creatinine 0.5 L 0.5 L 0.6 L (0.7-1.2) mg/dL Glucose 110 H 140 H 115 H (65-100) mg/dL Calcium 8.5 7.5 L 7.4 L (8.4-10.2) mg/dL Total Bilirubin 1.30 H 1.10 1.20 (0.1-1.2) mg/dL AST 42 H 27 35 (5-40) units/L ALT 38 24 23 (7-56) units/L Alkaline Phosphatase 95 69 60 (35-129) units/L Total Protein 6.7 4.4 L D 4.1 L (6.3-8.2) g/dL Albumin 3.1 L 2.0 L 1.9 L (3.9-5) g/dL
[2018-04-19] MEDS ORDERED: VITAMIN K (ADULT ONLY) SUB-Q ONE (12:05)
[2018-04-19] MEDS ORDERED: NACL 0.9% 500 ML 500 ML IV ONE (13:00)
--- NOTE | 2018-04-19 15:25 | Consultation ---
History of Present Illness Consult date: 04/19/18 Requesting physician: FLOR EASTMAN Reason for consult: other (Sepsis, intrabdominal) History of present illness: 57 YO Female with HTN, Neurofibromatosis, HCV, COPD, Nicotine Dependence presents to ED for evaluation. Pt states that she has experienced abdominal pain over the past 3 days. Pt states that pain is 10/10, constant, worsened with movement, decreased mildly with no movement. Pt acknowledges fever, nausea, multiple episodes of vomiting, inability to tolerate oral intake. Pt states that symptoms have progressively worsened over the past 2 days. EMS notified, and upon arrival the patient was found to be in distress. Pt transported to [facility] for further care and evaluation. Pt seen and evaluated in ED and found to have sepsis, suspected secondary to Ruptured Appendicitis complicated by an intra-abdominal abscess. Surgery consulted, as well as [facility] service. Pt initiated on Sepsis protocol, and admitted to ICU. She was taken to OR emergently, and in the ICU post operatively for antibiotics and close monitoring. Patient is status post exploratory laparotomy with appendectomy and evacuation of pelvic abscess. I have been consulted for critical care management. Patient was seen and examined. Vitals, labs, medications, chart reviewed. She complains of ongoing abdominal pain, intermittent fevers. Has some nausea, but no vomiting, NGT is to LIS. She denies any chest pain, no diarrhea Past History Past Medical History: COPD, hepatitis, hypertension, other (Neurofibromatosis) Past Surgical History: hysterectomy Social history: smoking Family history: hypertension Medications and Allergies Allergies Allergy/AdvReac Type Severity Reaction Status Date / Time NSAIDS (Non-Steroidal Allergy Unknown Verified 04/08/18 03:20 Anti-Inflamma Home Medications Medication Instructions Recorded Confirmed Last Taken Type Citalopram Hydrobromide 40 mg PO QDAY 07/31/17 04/19/18 04/15/18 History [Citalopram HBr] Gabapentin [Neurontin] 800 mg PO 5XD 07/31/17 04/19/18 04/15/18 History Losartan 50 mg PO QDAY 07/31/17 04/19/18 04/15/18 History Tizanidine HCl [Zanaflex] 2 mg PO QDAY 07/31/17 04/19/18 04/15/18 History busPIRone [Buspar] 5 mg PO BID 07/31/17 04/19/18 04/15/18 History Ciprofloxacin HCl [Ciprofloxacin 500 mg PO Q12HR #10 tab 08/01/17 04/19/18 04/15/18 Rx TAB] Active Meds: Active Medications Albuterol (Proventil) 2.5 mg IH Q3HRT PRN PRN Reason: Shortness Of Breath Buspirone HCl (Buspar) 5 mg PO BID [facility] Last Admin: 04/19/18 09:42 Dose: Not Given Documented by: Citalopram Hydrobromide (Celexa) 40 mg PO DAILY [facility] Last Admin: 04/19/18 11:18 Dose: Not Given Documented by: Famotidine (Pepcid) 20 mg IV BID [facility] Last Admin: 04/19/18 09:41 Dose: 20 mg Documented by: Gabapentin (Neurontin) 800 mg PO 5XD [facility] Last Admin: 04/19/18 14:01 Dose: Not Given Documented by: Hydromorphone HCl (Dilaudid) 1 mg IV Q4H PRN PRN Reason: Pain , Severe (7-10) Last Admin: 04/19/18 11:15 Dose: 1 mg Documented by: Potassium Chloride 20 meq/ (Lactated Ringer's) 1,010 mls @ 125 mls/hr IV DIRECT [facility] Last Admin: 04/19/18 09:46 Dose: 125 mls/hr Documented by: Metronidazole (Flagyl 500 Mg/100 Ml) 500 mg in 100 mls @ 100 mls/hr IV Q8HR [facility]; Protocol Last Admin: 04/19/18 14:00 Dose: 100 mls/hr Documented by: Fluconazole (Diflucan) 200 mg in 100 mls @ 100 mls/hr IV Q24HR [facility]; Protocol Last Admin: 04/19/18 09:40 Dose: 100 mls/hr Documented by: Piperacillin Sod/Tazobactam Sod (Zosyn/Ns 4.5gm/100ml) 4.5 gm in 100 mls @ 200 mls/hr IV Q8H [facility]; Protocol Last Admin: 04/19/18 14:01 Dose: 200 mls/hr Documented by: Morphine Sulfate (Morphine) 4 mg IV Q3H PRN PRN Reason: Pain , Severe (7-10) Last Admin: 04/19/18 14:15 Dose: 4 mg Documented by: Ondansetron HCl (Zofran) 4 mg IV Q4H PRN PRN Reason: N/V unrelieved by Reglan Last Admin: 04/19/18 14:17 Dose: 4 mg Documented by: Sodium Chloride (Sodium Chloride Flush Syringe 10 Ml) 10 ml IV BID [facility] Last Admin: 04/19/18 09:42 Dose: 10 ml Documented by: Sodium Chloride (Sodium Chloride Flush Syringe 10 Ml) 10 ml IV PRN PRN PRN Reason: LINE FLUSH Tizanidine HCl (Zanaflex) 2 mg PO DAILY [facility] Last Admin: 04/19/18 09:42 Dose: Not Given Documented by: Physical Examination Vital signs: Vital Signs Temp Pulse Resp BP Pulse Ox 101.7 F H 108 H 20 91/51 100 04/18/18 14:15 04/18/18 14:15 04/18/18 14:15 04/18/18 14:15 04/18/18 14:15 Results - Laboratory Findings CBC and BMP: 04/19/18 05:19 04/19/18 05:19 ABG POC ABG pH 7.367 (7.35-7.45) 04/19/18 00:19 POC ABG pCO2 36.8 (35-45) 04/19/18 00:19 POC ABG pO2 84 (80-105) 04/19/18 00:19 POC ABG HCO3 21.1 04/19/18 00:19 POC ABG Total CO2 22 04/19/18 00:19 POC ABG O2 Sat 96 04/19/18 00:19 PT/INR, D-dimer PT 19.4 Sec. (12.2-14.9) H 04/19/18 05:19 INR 1.59 (0.87-1.13) H 04/19/18 05:19 Abnormal lab findings: Abnormal Labs 04/18/18 04/18/18 04/18/18 14:30 14:30 14:30 WBC 18.6 H RDW Seg Neuts % (Manual) 79.0 H Lymphocytes % (Manual) 4.0 L Seg Neutrophils # Man 14.7 H Lymphocytes # (Manual) 0.7 L PT 16.3 H INR 1.27 H VBG pH Sodium 121 L Potassium 3.0 L Chloride 78.0 L Carbon Dioxide Creatinine 0.5 L Glucose 110 H Lactic Acid Calcium Total Bilirubin 1.30 H AST 42 H Total Protein Albumin 3.1 L 04/18/18 04/18/18 04/18/18 14:30 14:30 23:59 WBC RDW 15.8 H Seg Neuts % (Manual) 78.0 H Lymphocytes % (Manual) 6.0 L Seg Neutrophils # Man Lymphocytes # (Manual) 0.5 L PT INR VBG pH 7.439 H Sodium Potassium Chloride Carbon Dioxide Creatinine Glucose Lactic Acid 3.60 H* Calcium Total Bilirubin AST Total Protein Albumin 04/18/18 04/19/18 04/19/18 23:59 05:19 05:19 WBC 15.0 H RDW 15.3 H Seg Neuts % (Manual) Lymphocytes % (Manual) 5.0 L Seg Neutrophils # Man 8.3 H Lymphocytes # (Manual) 0.8 L PT INR VBG pH Sodium 130 L D 133 L Potassium 3.5 L 3.3 L Chloride Carbon Dioxide 20 L D Creatinine 0.5 L 0.6 L Glucose 140 H 115 H Lactic Acid Calcium 7.5 L 7.4 L Total Bilirubin AST Total Protein 4.4 L D 4.1 L Albumin 2.0 L 1.9 L 04/19/18 05:19 WBC RDW Seg Neuts % (Manual) Lymphocytes % (Manual) Seg Neutrophils # Man Lymphocytes # (Manual) PT 19.4 H INR 1.59 H VBG pH Sodium Potassium Chloride Carbon Dioxide Creatinine Glucose Lactic Acid Calcium Total Bilirubin AST Total Protein Albumin Assessment and Plan -Sepsis. Etiology secondary to gangrenous and perforated appendix causing intra-abdominal/pelvic abscess. -status post exploratory laparotomy with appendectomy and evacuation of pelvic abscess. -Intrabdominal sepsis/peritonitis -Ruptured appendix with abdominal abscess -Tobacco abuse disorder -COPD -Neurofibromatosis -Continue antibiotics -IV fluids -MOnitor hemodynamics closely, if any deterioration initiate vasopressor support to keep MAP >65 -VTE prophylaxis -Supplemental oxygen to keep O2 sats>88% -PT/OT/Mobility, OOB to chair daily -Incentive spirometry -Nicotine withdrawal precautions -Smoking cessation counselling was done at the bedside for 7 minutes. -Bronchodilators per protocol -NGT to LIS -Analgesia, pain management -NPO for now, serial abdominal exams The high probability of a clinically significant, sudden or life threatening deterioration of the ( GI, respiratory) system(s) required my full and direct a ttention, intervention and personal management. The aggregate critical care time was [35] minutes. This time is in addition to time spent performing reported procedures but includes the following: [x] Data Review and interpretation [x] Patient assessment and monitoring of vital signs [x] Documentation [x] Medication orders and management
[2018-04-19] MEDS ORDERED: TYLENOL PR ONE (16:35)
[2018-04-19] MEDS ORDERED: ZOSYN/NS 4.5GM/100ML 4.5 GM/100 ML VIAL IV ONE (21:30)
[2018-04-20] MEDS: DILAUDID IV PRN ×3 (04:20→23:41)
[2018-04-20] MEDS: ZOFRAN IV PRN ×2 (04:21→23:41)
[2018-04-20 05:43] LABS: INR 1.38 (0.87-1.13)
[2018-04-20] MEDS: KCL 20 MEQ in LACTATED RINGERS 1,000 ML IV SCH (06:15)
[2018-04-20] MEDS: ZOSYN/NS 4.5GM/100ML 4.5 GM/100 ML VIAL IV SCH ×3 (06:16→23:59)
[2018-04-20] MEDS: FLAGYL 500 MG/100 ML 500 MG/100 ML BAG IV SCH (06:16)
[2018-04-20] MEDS: NEURONTIN PO SCH ×5 (06:59→23:42)
--- NOTE | 2018-04-20 11:36 | Progress Note ---
Assessment and Plan Sepsis. Etiology secondary to gangrenous and perforated appendix causing intra- abdominal/pelvic abscess. status post exploratory laparotomy with appendectomy and evacuation of pelvic abscess. Intrabdominal sepsis/peritonitis Ruptured appendix with abdominal abscess Tobacco abuse disorder COPD Neurofibromatosis - complete antibiotics course - follow cultures and clinically for AB's de-escalation - IV fluids per surgeon - VTE prophylaxis - wean supplemental oxygen to keep O2 sats>88% - PT/OT/Mobility, OOB to chair daily - continue incentive spirometry - continue nicotine withdrawal precautions - Smoking cessation counselling was done at the bedside again today - Bronchodilators per protocol - NGT to LIS - Analgesia, pain management - NPO for now, serial abdominal exams ..... ok to transfer to surgical floor Subjective Date of service: 04/20/18 Principal diagnosis: Sepsis; S/P Ex-lap with appendectomy and evacuation of pelvic abscess; Bhargav Interval history: Patient is seen today for: Sepsis; status post exploratory laparotomy with appendectomy and evacuation of pelvic abscess; Intrabdominal sepsis/peritonitis; Ruptured appendix with abdominal abscess Seen and examined at bedside; 24hour events reviewed; nursing and respiratory care staff consulted; no adverse overnight events reported to me; resting peacefully in bed; feels better; denies acute chest pains or palpitations; want's to eat; no N/V/F/C Objective Vital Signs - 12hr 04/19/18 04/20/18 04/20/18 23:45 00:00 00:16 Temperature 99.5 F Pulse Rate 111 H 107 H 111 H Pulse Rate [ 109 H Right Posterior Tibial] Respiratory 15 13 16 Rate Blood Pressure 136/62 145/59 130/55 O2 Sat by Pulse 99 99 99 Oximetry 04/20/18 04/20/18 04/20/18 00:30 00:45 01:00 Temperature Pulse Rate 111 H 110 H 105 H Pulse Rate [ Right Posterior Tibial] Respiratory 16 14 16 Rate Blood Pressure 132/52 142/62 133/60 O2 Sat by Pulse 99 99 99 Oximetry 04/20/18 04/20/18 04/20/18 01:15 01:30 01:45 Temperature Pulse Rate 103 H 106 H 109 H Pulse Rate [ Right Posterior Tibial] Respiratory 12 16 13 Rate Blood Pressure 135/61 131/63 137/62 O2 Sat by Pulse 99 98 93 Oximetry 04/20/18 04/20/18 04/20/18 02:00 02:16 02:30 Temperature Pulse Rate 109 H 110 H 105 H Pulse Rate [ Right Posterior Tibial] Respiratory 17 20 13 Rate Blood Pressure 127/62 112/67 148/66 O2 Sat by Pulse 93 99 99 Oximetry 04/20/18 04/20/18 04/20/18 02:45 03:00 03:15 Temperature Pulse Rate 103 H 108 H 108 H Pulse Rate [ Right Posterior Tibial] Respiratory 13 14 12 Rate Blood Pressure 140/73 135/63 133/70 O2 Sat by Pulse 100 98 100 Oximetry 04/20/18 04/20/18 04/20/18 03:30 03:45 04:00 Temperature 98.9 F Pulse Rate 107 H 108 H 108 H Pulse Rate [ 108 H Right Posterior Tibial] Respiratory 12 13 11 L Rate Blood Pressure 142/59 151/63 155/76 O2 Sat by Pulse 100 99 99 Oximetry 04/20/18 04/20/18 04/20/18 04:15 04:20 04:30 Temperature Pulse Rate 106 H 111 H Pulse Rate [ Right Posterior Tibial] Respiratory 16 13 12 Rate Blood Pressure 163/71 167/66 O2 Sat by Pulse 100 99 Oximetry 04/20/18 04/20/18 04/20/18 04:45 05:00 05:18 Temperature Pulse Rate 111 H 107 H 114 H Pulse Rate [ Right Posterior Tibial] Respiratory 14 12 Rate Blood Pressure 179/74 152/66 152/66 O2 Sat by Pulse 99 99 Oximetry 04/20/18 04/20/18 04/20/18 05:30 05:45 06:00 Temperature Pulse Rate 113 H 114 H 107 H Pulse Rate [ Right Posterior Tibial] Respiratory 11 L 15 12 Rate Blood Pressure 152/66 152/66 150/68 O2 Sat by Pulse 99 Oximetry 04/20/18 04/20/18 04/20/18 06:16 06:30 06:46 Temperature Pulse Rate 103 H 103 H 104 H Pulse Rate [ Right Posterior Tibial] Respiratory 15 14 14 Rate Blood Pressure 150/68 151/69 150/68 O2 Sat by Pulse 100 100 99 Oximetry 04/20/18 04/20/18 04/20/18 07:00 07:16 07:30 Temperature Pulse Rate 106 H 103 H 106 H Pulse Rate [ Right Posterior Tibial] Respiratory 14 19 14 Rate Blood Pressure 156/68 156/68 156/68 O2 Sat by Pulse 99 99 98 Oximetry 04/20/18 04/20/18 04/20/18 07:46 08:00 08:16 Temperature 98.7 F Pulse Rate 100 H 105 H 103 H Pulse Rate [ 108 H Right Posterior Tibial] Respiratory 21 13 12 Rate Blood Pressure 141/60 163/78 163/78 O2 Sat by Pulse 100 99 99 Oximetry 04/20/18 04/20/18 04/20/18 08:23 08:30 08:46 Temperature Pulse Rate 109 H 107 H Pulse Rate [ Right Posterior Tibial] Respiratory 14 11 L Rate Blood Pressure 167/87 151/69 O2 Sat by Pulse 100 100 99 Oximetry 04/20/18 09:00 Temperature Pulse Rate 110 H Pulse Rate [ Right Posterior Tibial] Respiratory 12 Rate Blood Pressure 155/76 O2 Sat by Pulse 99 Oximetry Constitutional: no acute distress, other (chronically ill looking this middle aged CF, normocephalic) Eyes: non-icteric ENT: oropharynx moist, other (Mallampati 2) Neck: supple, no lymphadenopathy, no JVD Effort: mildly labored Ascultation: Bilateral: diminished breath sounds, rhonchi Percussion: Bilateral: not dull Cardiovascular: regular rate and rhythm Gastrointestinal: normoactive bowel sounds, soft, tender (bhargav-op site), non- distended Integumentary: other (poor turgor) Extremities: no cyanosis, no edema, pink and warm, pulses normal Neurologic: normal mental status, non-focal exam, pupils equal and round, motor strength normal and Psychiatric: mood appropriate, affect normal CBC and BMP: 04/20/18 13:47 04/20/18 13:47 ABG, PT/INR, D-dimer: ABG POC ABG pH 7.367 (7.35-7.45) 04/19/18 00:19 POC ABG pCO2 36.8 (35-45) 04/19/18 00:19 POC ABG pO2 84 (80-105) 04/19/18 00:19 POC ABG HCO3 21.1 04/19/18 00:19 POC ABG Total CO2 22 04/19/18 00:19 POC ABG O2 Sat 96 04/19/18 00:19 PT/INR, D-dimer PT 17.4 Sec. (12.2-14.9) H 04/20/18 05:18 INR 1.38 (0.87-1.13) H 04/20/18 05:18 Abnormal lab findings: Abnormal Labs 04/18/18 04/18/18 04/18/18 14:30 14:30 14:30 WBC 18.6 H RDW Seg Neuts % (Manual) 79.0 H Lymphocytes % (Manual) 4.0 L Seg Neutrophils # Man 14.7 H Lymphocytes # (Manual) 0.7 L PT 16.3 H INR 1.27 H VBG pH Sodium 121 L Potassium 3.0 L Chloride 78.0 L Carbon Dioxide Creatinine 0.5 L Glucose 110 H Lactic Acid Calcium Total Bilirubin 1.30 H AST 42 H Total Protein Albumin 3.1 L 04/18/18 04/18/18 04/18/18 14:30 14:30 23:59 WBC RDW 15.8 H Seg Neuts % (Manual) 78.0 H Lymphocytes % (Manual) 6.0 L Seg Neutrophils # Man Lymphocytes # (Manual) 0.5 L PT INR VBG pH 7.439 H Sodium Potassium Chloride Carbon Dioxide Creatinine Glucose Lactic Acid 3.60 H* Calcium Total Bilirubin AST Total Protein Albumin 04/18/18 04/19/18 04/19/18 23:59 05:19 05:19 WBC 15.0 H RDW 15.3 H Seg Neuts % (Manual) Lymphocytes % (Manual) 5.0 L Seg Neutrophils # Man 8.3 H Lymphocytes # (Manual) 0.8 L PT INR VBG pH Sodium 130 L D 133 L Potassium 3.5 L 3.3 L Chloride Carbon Dioxide 20 L D Creatinine 0.5 L 0.6 L Glucose 140 H 115 H Lactic Acid Calcium 7.5 L 7.4 L Total Bilirubin AST Total Protein 4.4 L D 4.1 L Albumin 2.0 L 1.9 L 04/19/18 04/20/18 05:19 05:18 WBC RDW Seg Neuts % (Manual) Lymphocytes % (Manual) Seg Neutrophils # Man Lymphocytes # (Manual) PT 19.4 H 17.4 H INR 1.59 H 1.38 H VBG pH Sodium Potassium Chloride Carbon Dioxide Creatinine Glucose Lactic Acid Calcium Total Bilirubin AST Total Protein Albumin Chest x-ray: image reviewed (hyperinflation without acute process) Allied health notes reviewed: nursing
[2018-04-20] MEDS: DIFLUCAN 200 MG/100 ML BAG IV SCH (12:15)
[2018-04-20] MEDS ORDERED: K-DUR PO ONE (12:20)
--- NOTE | 2018-04-20 12:21 | Progress Note ---
Assessment and Plan Assessment and plan: Sepsis. Etiology secondary to gangrenous and perforated appendix causing intra- abdominal/pelvic abscess. Patient is status post exploratory laparotomy with appendectomy and evacuation of pelvic abscess. ID following. Continue antibiotics. Chronic hep C. Untreated. Outpatient follow-up. Hypertension. Continue antihypertensive medications. COPD. Compensated. Hypokalemia. Replete potassium. Hyponatremia. Change IV fluid to normal saline. Neurofibromatosis Tobacco abuse. Patient counseled on smoking cessation. History Interval history: The patient is a 57-year-old female with hypertension, neurofibromatosis, hepatitis C, COPD, nicotine dependence presented to the emergency room on 04/18/18 with complaints of abdominal pain going on for [address] scan obtained in the emergency room revealed a ruptured appendix with associated intra-abdominal abscess. General surgery was consulted and the patient underwent an emergent exploratory laparotomy with evacuation of pelvic abscess. She was noted to have a gangrenous, perforated appendix eroding including into the small bowel. As per the op note, the abscess could not be drained as the entire abscess and inflammatory process had trapped the small bowel, which was mobilized and she underwent an ileocolic anastomosis. ID was consulted for antibiotic recommendations. She currently complains of ongoing abdominal pain, has NG tube to suction. Hospitalist Physical - Constitutional Vitals: Temp Pulse Resp BP Pulse Ox 98.7 F 110 H 12 155/76 99 04/20/18 08:00 04/20/18 09:00 04/20/18 09:00 04/20/18 09:00 04/20/18 09:00 General appearance: Present: no acute distress - EENT Eyes: Present: PERRL, EOM intact ENT: hearing intact, clear oral mucosa, dentition normal - Neck Neck: Present: supple, normal ROM - Respiratory Respiratory effort: normal Respiratory: bilateral: CTA - Cardiovascular Rhythm: regular Heart Sounds: Present: S1 & S2. Absent: gallop, rub - Extremities Extremities: no ischemia, No edema, Full ROM - Abdominal General gastrointestinal: soft, non-tender, non-distended, normal bowel sounds - Integumentary Integumentary: Present: clear, warm, dry - Neurologic Neurologic: CNII-XII intact, moves all extremities Results - Labs CBC & Chem 7: 04/19/18 05:19 04/19/18 05:19 Labs: Laboratory Last Values WBC 15.0 K/mm3 (4.5-11.0) H 04/19/18 05:19 RBC 4.16 M/mm3 (3.65-5.03) 04/19/18 05:19 Hgb 11.6 gm/dl (10.1-14.3) 04/19/18 05:19 Hct 35.4 % (30.3-42.9) 04/19/18 05:19 MCV 85 fl (79-97) 04/19/18 05:19 MCH 28 pg (28-32) 04/19/18 05:19 MCHC 33 % (30-34) 04/19/18 05:19 RDW 15.3 % (13.2-15.2) H 04/19/18 05:19 Plt Count 315 K/mm3 (140-440) 04/19/18 05:19 Add Manual Diff Complete 04/19/18 05:19 Total Counted 100 04/19/18 05:19 Seg Neuts % (Manual) 55.0 % (40.0-70.0) 04/19/18 05:19 Band Neutrophils % 39.0 % 04/19/18 05:19 Lymphocytes % (Manual) 5.0 % (13.4-35.0) L 04/19/18 05:19 Reactive Lymphs % (Man) 0 % 04/19/18 05:19 Monocytes % (Manual) 1.0 % (0.0-7.3) 04/19/18 05:19 Eosinophils % (Manual) 0 % (0.0-4.3) 04/19/18 05:19 Basophils % (Manual) 0 % (0.0-1.8) 04/19/18 05:19 Metamyelocytes % 0 % 04/19/18 05:19 Myelocytes % 0 % 04/19/18 05:19 Promyelocytes % 0 % 04/19/18 05:19 Blast Cells % 0 % 04/19/18 05:19 Nucleated RBC % Not Reportable 04/19/18 05:19 Seg Neutrophils # Man 8.3 K/mm3 (1.8-7.7) H 04/19/18 05:19 Band Neutrophils # 5.9 K/mm3 04/19/18 05:19 Lymphocytes # (Manual) 0.8 K/mm3 (1.2-5.4) L 04/19/18 05:19 Abs React Lymphs (Man) 0.0 K/mm3 04/19/18 05:19 Monocytes # (Manual) 0.2 K/mm3 (0.0-0.8) 04/19/18 05:19 Eosinophils # (Manual) 0.0 K/mm3 (0.0-0.4) 04/19/18 05:19 Basophils # (Manual) 0.0 K/mm3 (0.0-0.1) 04/19/18 05:19 Metamyelocytes # 0.0 K/mm3 04/19/18 05:19 Myelocytes # 0.0 K/mm3 04/19/18 05:19 Promyelocytes # 0.0 K/mm3 04/19/18 05:19 Blast Cells # 0.0 K/mm3 04/19/18 05:19 WBC Morphology Not Reportable 04/19/18 05:19 Hypersegmented Neuts Not Reportable 04/19/18 05:19 Hyposegmented Neuts Not Reportable 04/19/18 05:19 Hypogranular Neuts Not Reportable 04/19/18 05:19 Smudge Cells Not Reportable 04/19/18 05:19 Toxic Granulation Not Reportable 04/19/18 05:19 Toxic Vacuolation Not Reportable 04/19/18 05:19 Dohle Bodies Not Reportable 04/19/18 05:19 Pelger-Huet Anomaly Not Reportable 04/19/18 05:19 Nicole Rods Not Reportable 04/19/18 05:19 Platelet Estimate Consistent w auto 04/19/18 05:19 Clumped Platelets Not Reportable 04/19/18 05:19 Plt Clumps, EDTA Not Reportable 04/19/18 05:19 Large Platelets Not Reportable 04/19/18 05:19 Giant Platelets Not Reportable 04/19/18 05:19 Platelet Satelliting Not Reportable 04/19/18 05:19 Plt Morphology Comment Not Reportable 04/19/18 05:19 RBC Morphology Normal 04/19/18 05:19 Dimorphic RBCs Not Reportable 04/19/18 05:19 Polychromasia Not Reportable 04/19/18 05:19 Hypochromasia Not Reportable 04/19/18 05:19 Poikilocytosis Not Reportable 04/19/18 05:19 Anisocytosis Not Reportable 04/19/18 05:19 Microcytosis Not Reportable 04/19/18 05:19 Macrocytosis Not Reportable 04/19/18 05:19 Spherocytes Not Reportable 04/19/18 05:19 Pappenheimer Bodies Not Reportable 04/19/18 05:19 Sickle Cells Not Reportable 04/19/18 05:19 Target Cells Not Reportable 04/19/18 05:19 Tear Drop Cells Not Reportable 04/19/18 05:19 Ovalocytes Not Reportable 04/19/18 05:19 Helmet Cells Not Reportable 04/19/18 05:19 [place] Bodies Not Reportable 04/19/18 05:19 [place] Rings Not Reportable 04/19/18 05:19 Philip Cells Not Reportable 04/19/18 05:19 Bite Cells Not Reportable 04/19/18 05:19 Crenated Cell Not Reportable 04/19/18 05:19 Elliptocytes Not Reportable 04/19/18 05:19 Acanthocytes (Spur) Not Reportable 04/19/18 05:19 Rouleaux Not Reportable 04/19/18 05:19 Hemoglobin C Crystals Not Reportable 04/19/18 05:19 Schistocytes Not Reportable 04/19/18 05:19 Malaria parasites Not Reportable 04/19/18 05:19 Hung Bodies Not Reportable 04/19/18 05:19 Hem Pathologist Commnt No 04/19/18 05:19 PT 17.4 Sec. (12.2-14.9) H 04/20/18 05:18 INR 1.38 (0.87-1.13) H 04/20/18 05:18 APTT 29.4 Sec. (24.2-36.6) 04/19/18 05:19 POC ABG pH 7.367 (7.35-7.45) 04/19/18 00:19 POC ABG pCO2 36.8 (35-45) 04/19/18 00:19 POC ABG pO2 84 (80-105) 04/19/18 00:19 POC ABG HCO3 21.1 04/19/18 00:19 POC ABG Total CO2 22 04/19/18 00:19 POC ABG O2 Sat 96 04/19/18 00:19 POC ABG Base Excess -4 04/19/18 00:19 VBG pH 7.439 (7.320-7.420) H 04/18/18 14:30 FiO2 32 % 04/19/18 00:19 Sodium 133 mmol/L (137-145) L 04/19/18 05:19 Potassium 3.3 mmol/L (3.6-5.0) L 04/19/18 05:19 Chloride 100.6 mmol/L (98-107) 04/19/18 05:19 Carbon Dioxide 22 mmol/L (22-30) 04/19/18 05:19 Anion Gap 14 mmol/L 04/19/18 05:19 BUN 10 mg/dL (7-17) 04/19/18 05:19 Creatinine 0.6 mg/dL (0.7-1.2) L 04/19/18 05:19 Estimated GFR > 60 ml/min 04/19/18 05:19 BUN/Creatinine Ratio 17 % 04/19/18 05:19 Glucose 115 mg/dL (65-100) H 04/19/18 05:19 Lactic Acid 0.90 mmol/L (0.7-2.0) 04/18/18 18:41 Calcium 7.4 mg/dL (8.4-10.2) L 04/19/18 05:19 Total Bilirubin 1.20 mg/dL (0.1-1.2) 04/19/18 05:19 AST 35 units/L (5-40) 04/19/18 05:19 ALT 23 units/L (7-56) 04/19/18 05:19 Alkaline Phosphatase 60 units/L (35-129) 04/19/18 05:19 Total Protein 4.1 g/dL (6.3-8.2) L 04/19/18 05:19 Albumin 1.9 g/dL (3.9-5) L 04/19/18 05:19 Albumin/Globulin Ratio 0.9 % 04/19/18 05:19 Urine Color Sophie (Yellow) 04/18/18 16:45 Urine Turbidity Clear (Clear) 04/18/18 16:45 Urine pH 5.0 (5.0-7.0) 04/18/18 16:45 Ur Specific [place] 1.013 (1.003-1.030) 04/18/18 16:45 Urine Protein <15 mg/dl mg/dL (Negative) 04/18/18 16:45 Urine Glucose (UA) Neg mg/dL (Negative) 04/18/18 16:45 Urine Ketones Neg mg/dL (Negative) 04/18/18 16:45 Urine Blood Neg (Negative) 04/18/18 16:45 Urine Nitrite Neg (Negative) 04/18/18 16:45 Urine Bilirubin Neg (Negative) 04/18/18 16:45 Urine Urobilinogen 4.0 mg/dL (<2.0) 04/18/18 16:45 Ur Leukocyte Esterase Neg (Negative) 04/18/18 16:45 Urine WBC (Auto) 4.0 /HPF (0.0-6.0) 04/18/18 16:45 Urine RBC (Auto) 3.0 /HPF (0.0-6.0) 04/18/18 16:45 U Epithel Cells (Auto) 2.0 /HPF (0-13.0) 04/18/18 16:45 Urine Bacteria (Auto) 2+ /HPF (Negative) 04/18/18 16:45 Urine Mucus Few /HPF 04/18/18 16:45 Blood Type O POSITIVE 04/19/18 13:05 Antibody Screen Negative 04/19/18 13:05
[2018-04-20] MEDS ORDERED: NACL 0.9% IR PRN (12:47)
[2018-04-20] MEDS ORDERED: CEPACOL X STRENGTH MM PRN (12:51)
--- NOTE | 2018-04-20 12:57 | Progress Note ---
Assessment and Plan POD # 2 Pt overall "feeling better". Breathing well. ng in place. Abd soft, dressings dry. discussed with ET nurses -- wd clean & dry surgically stable july d/c ERASTO gold, C&S prior to d/c awaiting am labs INR improved post FFP transf awaiting am h/h Selected Entries 04/20/18 04/20/18 08:00 09:00 Temperature 98.7 F Pulse Rate 110 H Respiratory 12 Rate Blood Pressure 155/76 Laboratory Tests 04/20/18 05:18 PT 17.4 H INR 1.38 H Objective Vital Signs - 12hr 04/20/18 04/20/18 04/20/18 01:00 01:15 01:30 Temperature Pulse Rate 105 H 103 H 106 H Pulse Rate [ Right Posterior Tibial] Respiratory 16 12 16 Rate Blood Pressure 133/60 135/61 131/63 O2 Sat by Pulse 99 99 98 Oximetry 04/20/18 04/20/18 04/20/18 01:45 02:00 02:16 Temperature Pulse Rate 109 H 109 H 110 H Pulse Rate [ Right Posterior Tibial] Respiratory 13 17 20 Rate Blood Pressure 137/62 127/62 112/67 O2 Sat by Pulse 93 93 99 Oximetry 04/20/18 04/20/18 04/20/18 02:30 02:45 03:00 Temperature Pulse Rate 105 H 103 H 108 H Pulse Rate [ Right Posterior Tibial] Respiratory 13 13 14 Rate Blood Pressure 148/66 140/73 135/63 O2 Sat by Pulse 99 100 98 Oximetry 04/20/18 04/20/18 04/20/18 03:15 03:30 03:45 Temperature Pulse Rate 108 H 107 H 108 H Pulse Rate [ Right Posterior Tibial] Respiratory 12 12 13 Rate Blood Pressure 133/70 142/59 151/63 O2 Sat by Pulse 100 100 99 Oximetry 04/20/18 04/20/18 04/20/18 04:00 04:15 04:20 Temperature 98.9 F Pulse Rate 108 H 106 H Pulse Rate [ 108 H Right Posterior Tibial] Respiratory 11 L 16 13 Rate Blood Pressure 155/76 163/71 O2 Sat by Pulse 99 100 Oximetry 04/20/18 04/20/18 04/20/18 04:30 04:45 05:00 Temperature Pulse Rate 111 H 111 H 107 H Pulse Rate [ Right Posterior Tibial] Respiratory 12 14 12 Rate Blood Pressure 167/66 179/74 152/66 O2 Sat by Pulse 99 99 99 Oximetry 04/20/18 04/20/18 04/20/18 05:18 05:30 05:45 Temperature Pulse Rate 114 H 113 H 114 H Pulse Rate [ Right Posterior Tibial] Respiratory 11 L 15 Rate Blood Pressure 152/66 152/66 152/66 O2 Sat by Pulse 99 Oximetry 04/20/18 04/20/18 04/20/18 06:00 06:16 06:30 Temperature Pulse Rate 107 H 103 H 103 H Pulse Rate [ Right Posterior Tibial] Respiratory 12 15 14 Rate Blood Pressure 150/68 150/68 151/69 O2 Sat by Pulse 100 100 Oximetry 04/20/18 04/20/18 04/20/18 06:46 07:00 07:16 Temperature Pulse Rate 104 H 106 H 103 H Pulse Rate [ Right Posterior Tibial] Respiratory 14 14 19 Rate Blood Pressure 150/68 156/68 156/68 O2 Sat by Pulse 99 99 99 Oximetry 04/20/18 04/20/18 04/20/18 07:30 07:46 08:00 Temperature 98.7 F Pulse Rate 106 H 100 H 105 H Pulse Rate [ 108 H Right Posterior Tibial] Respiratory 14 21 13 Rate Blood Pressure 156/68 141/60 163/78 O2 Sat by Pulse 98 100 99 Oximetry 04/20/18 04/20/18 04/20/18 08:16 08:23 08:30 Temperature Pulse Rate 103 H 109 H Pulse Rate [ Right Posterior Tibial] Respiratory 12 14 Rate Blood Pressure 163/78 167/87 O2 Sat by Pulse 99 100 100 Oximetry 04/20/18 04/20/18 08:46 09:00 Temperature Pulse Rate 107 H 110 H Pulse Rate [ Right Posterior Tibial] Respiratory 11 L 12 Rate Blood Pressure 151/69 155/76 O2 Sat by Pulse 99 99 Oximetry - Labs 04/19/18 05:19 04/19/18 05:19
[2018-04-20] MEDS ORDERED: KCL 10MEQ/100ML 10 MEQ/100 ML BAG IV ONE (13:00)
[2018-04-20] MEDS: BUSPAR PO SCH ×2 (13:49→23:42)
[2018-04-20] MEDS: celeXA PO SCH (13:49)
[2018-04-20] MEDS: ZANAFLEX PO SCH (13:49)
[2018-04-20] MEDS: SODIUM CHLORIDE FLUSH SYRINGE 10 ML IV SCH ×2 (13:51→23:41)
[2018-04-20] MEDS: PEPCID IV SCH ×2 (13:51→23:41)
[2018-04-20 14:04] LABS: Bilirubin,Urine NEG (Negative); Blood,Urine SM (Negative); Color,Urine Yellow (Yellow); Mucus,Urine FEW /HPF; Protein,Urine <15 mg/dL mg/dL (Negative)
[2018-04-20 14:18] LABS: Hematocrit 28.1 % (30.3-42.9); Hemoglobin 9.6 gm/dl (10.1-14.3); Mean Corpuscular HGB Conc 34 % (30-34); Mean Corpuscular Volume 85 fl (79-97); Platelet Count 215 K/mm3 (140-440); Red Blood Count 3.29 M/mm3 (3.65-5.03); Red Cell Distribution Width 15.3 % (13.2-15.2)
[2018-04-20 14:36] LABS: BUN/Creatinine Ratio 33; Blood Urea Nitrogen 10 mg/dL (7-17); Hemolysis Index 5
--- NOTE | 2018-04-20 15:11 | Progress Note ---
Assessment and Plan Cultures: 04/18/2018 blood cultures) progress 04/18/2018 urine culture: No growth 04/19/2018 intra-abdominal culture: GNR A/P: 57-year-old female with hypertension, neurofibromatosis, hepatitis C, COPD, nicotine dependence admitted with: 1) Sepsis secondary to gangrenous and perforated appendix causing intra-a bdominal/pelvic abscess: Status post exploratory laparotomy and evacuation of pelvic abscess. Continue abx. Given complicated intra-abdominal findings, may need a slightly longer course of abx than usual. 2) Chronic Hep C: untreated. Outpatient ID clinic follow up. Recs: - Continue Zosyn and fluconazole - Duration of therapy will depend on clinical course given improvement, plan for 7 days from date of surgery - follow up OR culture, de-escalate based on that Will follow. Please call with questions. MD [facility] C: [phone] O: [phone] F: [phone] Subjective Date of service: 04/20/18 Interval history: No fever. Feels well, passed gas, discussed with RN. Abdominal pain stable, fair control Objective - Exam Narrative Exam: Physical Exam: Constitutional: Alert, cooperative. No acute distress Head, Ears, Nose: Normocephalic, atraumatic. External ears, nose normal Eyes: Conjunctivae/corneas clear. No icterus. No ptosis. Neck: Supple, no meningeal signs Oral: poor dentition, no thrush Cardiovascular: S1, S2 normal. Respiratory: Good air entry, clear to auscultation bilaterally GI: mild diffuse tenderness, bowel sounds +, drain + Musculoskeletal: No pedal edema, no cyanosis. Skin: No rash or abscess. Tattoos +, fibromas + Hem/Lymphatic: No palpable cervical or supraclavicular nodes. No lymphangitis Psych: Mood ok. Affect normal Neurological: Awake, alert, oriented. No gross abnormality - Constitutional Vitals: Vital Signs Temp Pulse Resp BP Pulse Ox 98.7 F 110 H 12 155/76 99 04/20/18 08:00 04/20/18 09:00 04/20/18 09:00 04/20/18 09:00 04/20/18 09:00 Temperature -Last 24 Hours Temperature 98.7 F Temperature 98.9 F Temperature 99.5 F Temperature 99.6 F Temperature 100.3 F Temperature 100.1 F Temperature 100.7 F Temperature 100.1 F - Labs CBC & Chem 7: 04/20/18 13:47 04/20/18 13:47 Labs: Abnormal lab results 04/20/18 04/20/18 04/20/18 Range/Units 05:18 13:47 13:47 RBC 3.29 L (3.65-5.03) M/mm3 Hgb 9.6 L (10.1-14.3) gm/dl Hct 28.1 L D (30.3-42.9) % RDW 15.3 H (13.2-15.2) % PT 17.4 H (12.2-14.9) Sec. INR 1.38 H (0.87-1.13) Creatinine 0.3 L (0.7-1.2) mg/dL Glucose 102 H (65-100) mg/dL Calcium 8.0 L (8.4-10.2) mg/dL
--- NOTE | 2018-04-20 23:40 | XRay Report ---
FINAL REPORT PROCEDURE: XR ABDOMEN 1V AP TECHNIQUE: Abdominal radiograph, single supine AP view. HISTORY: tube placement COMPARISON: No prior studies are available for comparison. FINDINGS: Bowel gas pattern:Mild degree dilatation of small-bowel loops is noted.. Masses or calcifications:None. Bony structures:No significant abnormality. Other:Nasogastric tube is terminating in the stomach IMPRESSION: Nasogastric tube is terminating in the stomach Dilated small-bowel loops may represent ileus versus obstruction
[2018-04-20] MEDS: NACL 0.9% 1000 ML 1,000 ML IV SCH (23:46)
[2018-04-21] MEDS: ZOFRAN IV PRN (04:08)
[2018-04-21] MEDS: DILAUDID IV PRN ×4 (04:08→21:25)
[2018-04-21] MEDS: NEURONTIN PO SCH ×5 (05:22→21:24)
[2018-04-21] MEDS: ZOSYN/NS 4.5GM/100ML 4.5 GM/100 ML VIAL IV SCH (05:23)
[2018-04-21 05:46] LABS: Basophils % (Auto) 0.2 % (0.0-1.8); Eosinophils % (Auto) 0.1 % (0.0-4.3); Hematocrit 26.6 % (30.3-42.9); Hemoglobin 8.8 gm/dl (10.1-14.3); Lymphocytes # (Auto) 0.4 K/mm3 (1.2-5.4); Lymphocytes % (Auto) 5.6 % (13.4-35.0); Mean Corpuscular HGB Conc 33 % (30-34); Mean Corpuscular Volume 86 fl (79-97); Monocytes # (Auto) 0.5 K/mm3 (0.0-0.8); Monocytes % (Auto) 6.8 % (0.0-7.3); Platelet Count 171 K/mm3 (140-440); Red Cell Distribution Width 15.4 % (13.2-15.2)
[2018-04-21 06:03] LABS: BUN/Creatinine Ratio 37; Blood Urea Nitrogen 11 mg/dL (7-17); Calcium 7.6 mg/dL (8.4-10.2); Hemolysis Index 1
[2018-04-21] MEDS ORDERED: NACL 0.9% 500 ML 500 ML IV NR (08:24)
--- NOTE | 2018-04-21 08:24 | Progress Note ---
Assessment and Plan POD # 3 Pt pulled NG out twice yesterday. re-inserted. Stress to pt that removing the ng may cause distention and anastomotic disruption. May be life threatening. Pt states she understands and will not re-pull Abd minimal distention dressings dry non tender lowering h/h low K transfuse I unit prbc's correct K ambulate down halls as tiffanie f/u labs in am Selected Entries 04/21/18 04/21/18 05:22 08:07 Temperature 99.0 F Pulse Rate [ 105 H Brachial] O2 Sat by Pulse 92 Oximetry Blood Pressure 155/76 Laboratory Tests 04/21/18 04/21/18 04:52 04:52 WBC 7.9 Hgb 8.8 L Hct 26.6 L Sodium 137 Potassium 3.2 L Chloride 99.6 Carbon Dioxide 26 Anion Gap 15 BUN 11 Objective Vital Signs - 12hr 04/20/18 04/20/18 04/20/18 20:30 20:46 21:00 Temperature Pulse Rate 127 H 123 H 117 H Pulse Rate [ Brachial] Respiratory 18 20 17 Rate Blood Pressure 188/95 188/95 158/84 O2 Sat by Pulse Oximetry 04/20/18 04/20/18 04/20/18 22:00 22:39 22:40 Temperature 99.2 F Pulse Rate 109 H 110 H Pulse Rate [ Brachial] Respiratory 16 Rate Blood Pressure 164/78 O2 Sat by Pulse 100 91 93 Oximetry 04/21/18 04/21/18 04/21/18 00:16 03:28 05:22 Temperature 99.0 F Pulse Rate 107 H Pulse Rate [ 105 H Brachial] Respiratory 18 Rate Blood Pressure 155/76 O2 Sat by Pulse 92 91 92 Oximetry 04/21/18 08:07 Temperature Pulse Rate Pulse Rate [ Brachial] Respiratory Rate Blood Pressure O2 Sat by Pulse 92 Oximetry - Labs 04/21/18 04:52 04/21/18 04:52 Diabetes panel 04/20/18 04/21/18 Range/Units 13:47 04:52 Sodium 138 137 (137-145) mmol/L Potassium 3.9 3.2 L (3.6-5.0) mmol/L Chloride 100.5 99.6 (98-107) mmol/L Carbon Dioxide 24 26 (22-30) mmol/L BUN 10 11 (7-17) mg/dL Creatinine 0.3 L 0.3 L (0.7-1.2) mg/dL Glucose 102 H 99 (65-100) mg/dL Calcium 8.0 L 7.6 L (8.4-10.2) mg/dL Calcium panel 04/20/18 04/21/18 Range/Units 13:47 04:52 Calcium 8.0 L 7.6 L (8.4-10.2) mg/dL Pituitary panel 04/20/18 04/21/18 Range/Units 13:47 04:52 Sodium 138 137 (137-145) mmol/L Potassium 3.9 3.2 L (3.6-5.0) mmol/L Chloride 100.5 99.6 (98-107) mmol/L Carbon Dioxide 24 26 (22-30) mmol/L BUN 10 11 (7-17) mg/dL Creatinine 0.3 L 0.3 L (0.7-1.2) mg/dL Glucose 102 H 99 (65-100) mg/dL Calcium 8.0 L 7.6 L (8.4-10.2) mg/dL Adrenal panel 04/20/18 04/21/18 Range/Units 13:47 04:52 Sodium 138 137 (137-145) mmol/L Potassium 3.9 3.2 L (3.6-5.0) mmol/L Chloride 100.5 99.6 (98-107) mmol/L Carbon Dioxide 24 26 (22-30) mmol/L BUN 10 11 (7-17) mg/dL Creatinine 0.3 L 0.3 L (0.7-1.2) mg/dL Glucose 102 H 99 (65-100) mg/dL Calcium 8.0 L 7.6 L (8.4-10.2) mg/dL
--- NOTE | 2018-04-21 09:57 | Progress Note ---
Assessment and Plan Cultures: 04/18/2018 blood cultures) progress 04/18/2018 urine culture: No growth 04/19/2018 intra-abdominal culture: E.Coli and Beta hemolytic Group C A/P: 57-year-old female with hypertension, neurofibromatosis, hepatitis C, COPD, nicotine dependence admitted with: 1) Sepsis secondary to gangrenous and perforated appendix causing intra- abdominal/pelvic abscess: Status post exploratory laparotomy and evacuation of pelvic abscess. Continue abx. Given complicated intra-abdominal findings, may need a slightly longer course of abx than usual. 2) Chronic Hep C: untreated. Outpatient ID clinic follow up. Recs: -Discontinue Zosyn -Continue fluconazole, D3 of D7 -start Ceftiaxone and Flagyl for total 7 days ending 04-25-18 [facility] M: [phone] O:[phone] Subjective Date of service: 04/21/18 Principal diagnosis: Sepsis; S/P Ex-lap with appendectomy and evacuation of pelvic abscess; Alexia Interval history: Patient seen and examined. Sleepy, difficult to arouse, NGT to suction. Objective - Exam Narrative Exam: Constitutional: Asleep, difficult to arouse. No acute distress Head, Ears, Nose: Normocephalic, atraumatic. External ears, nose normal Eyes: Conjunctivae/corneas clear. No icterus. No ptosis. Neck: Supple, no meningeal signs Oral: poor dentition, no thrush Cardiovascular: S1, S2 normal. Respiratory: Good air entry, clear to auscultation bilaterally GI: mild diffuse tenderness, bowel sounds +, +NGT to suction Musculoskeletal: No pedal edema, no cyanosis. Skin: No rash or abscess. Tattoos +, fibromas + Hem/Lymphatic: No palpable cervical or supraclavicular nodes. No lymphangitis Psych: Mood ok. Affect normal Neurological: Awake, alert, oriented. No gross abnormality - Constitutional Vitals: Vital Signs Temp Pulse Resp BP Pulse Ox 99.0 F 105 H 18 155/76 92 04/21/18 05:22 04/21/18 05:22 04/21/18 05:22 04/21/18 05:22 04/21/18 08:07 Temperature -Last 24 Hours Temperature 99.0 F Temperature 99.2 F Temperature 99.6 F - Labs CBC & Chem 7: 04/21/18 04:52 04/21/18 04:52 Labs: Abnormal lab results 04/19/18 04/20/18 04/20/18 Range/Units 13:05 13:47 13:47 RBC 3.29 L (3.65-5.03) M/mm3 Hgb 9.6 L (10.1-14.3) gm/dl Hct 28.1 L D (30.3-42.9) % RDW 15.3 H (13.2-15.2) % Lymph % (Auto) (13.4-35.0) % Lymph # (1.2-5.4) K/mm3 Seg Neutrophils % (40.0-70.0) % Potassium (3.6-5.0) mmol/L Creatinine 0.3 L (0.7-1.2) mg/dL Glucose 102 H (65-100) mg/dL Calcium 8.0 L (8.4-10.2) mg/dL Crossmatch See Detail 04/21/18 04/21/18 Range/Units 04:52 04:52 RBC 3.10 L (3.65-5.03) M/mm3 Hgb 8.8 L (10.1-14.3) gm/dl Hct 26.6 L (30.3-42.9) % RDW 15.4 H (13.2-15.2) % Lymph % (Auto) 5.6 L (13.4-35.0) % Lymph # 0.4 L (1.2-5.4) K/mm3 Seg Neutrophils % 87.3 H (40.0-70.0) % Potassium 3.2 L (3.6-5.0) mmol/L Creatinine 0.3 L (0.7-1.2) mg/dL Glucose (65-100) mg/dL Calcium 7.6 L (8.4-10.2) mg/dL Crossmatch
[2018-04-21] MEDS: celeXA PO SCH (10:17)
[2018-04-21] MEDS: BUSPAR PO SCH ×2 (10:17→21:24)
[2018-04-21] MEDS: ZANAFLEX PO SCH (10:18)
[2018-04-21] MEDS: DIFLUCAN 200 MG/100 ML BAG IV SCH (10:38)
[2018-04-21] MEDS: PEPCID IV SCH ×2 (10:38→21:24)
[2018-04-21] MEDS: SODIUM CHLORIDE FLUSH SYRINGE 10 ML IV SCH ×2 (10:48→21:29)
[2018-04-21] MEDS: KCL 10MEQ/100ML 10 MEQ/100 ML BAG IV SCH ×2 (12:06→13:30)
[2018-04-21] MEDS: APRESOLINE IV PRN (12:33)
--- NOTE | 2018-04-21 18:02 | Progress Note ---
Assessment and Plan Assessment and plan: Sepsis. Etiology secondary to gangrenous and perforated appendix causing intra- abdominal/pelvic abscess. Patient is status post exploratory laparotomy with appendectomy and evacuation of pelvic abscess. ID following. Continue antibiotics. Chronic hep C. Untreated. Outpatient follow-up. Hypertension. Continue antihypertensive medications. COPD. Compensated. Hypokalemia. Replete potassium. Recheck in am Hyponatremia. Resolved after Changing IV fluid to normal saline. Neurofibromatosis Tobacco abuse. Patient counseled on smoking cessation. Discussed with Surgeon History Interval history: Feels better, Removed NG tube 2 x yesterday but replaced Hospitalist Physical - Physical exam Narrative exam: GEN: Not in acute distress, lying in bed HEENT: Normocephalic, atraumatic. NG tube in, Neck: supple, No JVD Lungs: Clear to auscultation bilaterally, no wheeze Heart:S1 and S2 regular, no murmurs, rubs or gallop, Abd:soft, mild tender, dressing over abdomen Ext: No edema, no clubbing or cyanosis Neuro: AAO x 3, moves all extremities, no focal neurological signs - Constitutional Vitals: Temp Pulse Resp BP Pulse Ox 98 F 108 H 20 161/80 96 04/21/18 17:30 04/21/18 17:30 04/21/18 17:30 04/21/18 17:30 04/21/18 16:14 General appearance: Present: no acute distress Results - Labs CBC & Chem 7: 04/21/18 04:52 04/21/18 04:52 Labs: Laboratory Last Values WBC 7.9 K/mm3 (4.5-11.0) 04/21/18 04:52 RBC 3.10 M/mm3 (3.65-5.03) L 04/21/18 04:52 Hgb 8.8 gm/dl (10.1-14.3) L 04/21/18 04:52 Hct 26.6 % (30.3-42.9) L 04/21/18 04:52 MCV 86 fl (79-97) 04/21/18 04:52 MCH 28 pg (28-32) 04/21/18 04:52 MCHC 33 % (30-34) 04/21/18 04:52 RDW 15.4 % (13.2-15.2) H 04/21/18 04:52 Plt Count 171 K/mm3 (140-440) 04/21/18 04:52 Lymph % (Auto) 5.6 % (13.4-35.0) L 04/21/18 04:52 Bates % (Auto) 6.8 % (0.0-7.3) 04/21/18 04:52 Eos % (Auto) 0.1 % (0.0-4.3) 04/21/18 04:52 Baso % (Auto) 0.2 % (0.0-1.8) 04/21/18 04:52 Lymph # 0.4 K/mm3 (1.2-5.4) L 04/21/18 04:52 Bates # 0.5 K/mm3 (0.0-0.8) 04/21/18 04:52 Eos # 0.0 K/mm3 (0.0-0.4) 04/21/18 04:52 Baso # 0.0 K/mm3 (0.0-0.1) 04/21/18 04:52 Add Manual Diff Complete 04/19/18 05:19 Total Counted 100 04/19/18 05:19 Seg Neutrophils % 87.3 % (40.0-70.0) H 04/21/18 04:52 Seg Neuts % (Manual) 55.0 % (40.0-70.0) 04/19/18 05:19 Band Neutrophils % 39.0 % 04/19/18 05:19 Lymphocytes % (Manual) 5.0 % (13.4-35.0) L 04/19/18 05:19 Reactive Lymphs % (Man) 0 % 04/19/18 05:19 Monocytes % (Manual) 1.0 % (0.0-7.3) 04/19/18 05:19 Eosinophils % (Manual) 0 % (0.0-4.3) 04/19/18 05:19 Basophils % (Manual) 0 % (0.0-1.8) 04/19/18 05:19 Metamyelocytes % 0 % 04/19/18 05:19 Myelocytes % 0 % 04/19/18 05:19 Promyelocytes % 0 % 04/19/18 05:19 Blast Cells % 0 % 04/19/18 05:19 Nucleated RBC % Not Reportable 04/19/18 05:19 Seg Neutrophils # 6.9 K/mm3 (1.8-7.7) 04/21/18 04:52 Seg Neutrophils # Man 8.3 K/mm3 (1.8-7.7) H 04/19/18 05:19 Band Neutrophils # 5.9 K/mm3 04/19/18 05:19 Lymphocytes # (Manual) 0.8 K/mm3 (1.2-5.4) L 04/19/18 05:19 Abs React Lymphs (Man) 0.0 K/mm3 04/19/18 05:19 Monocytes # (Manual) 0.2 K/mm3 (0.0-0.8) 04/19/18 05:19 Eosinophils # (Manual) 0.0 K/mm3 (0.0-0.4) 04/19/18 05:19 Basophils # (Manual) 0.0 K/mm3 (0.0-0.1) 04/19/18 05:19 Metamyelocytes # 0.0 K/mm3 04/19/18 05:19 Myelocytes # 0.0 K/mm3 04/19/18 05:19 Promyelocytes # 0.0 K/mm3 04/19/18 05:19 Blast Cells # 0.0 K/mm3 04/19/18 05:19 WBC Morphology Not Reportable 04/19/18 05:19 Hypersegmented Neuts Not Reportable 04/19/18 05:19 Hyposegmented Neuts Not Reportable 04/19/18 05:19 Hypogranular Neuts Not Reportable 04/19/18 05:19 Smudge Cells Not Reportable 04/19/18 05:19 Toxic Granulation Not Reportable 04/19/18 05:19 Toxic Vacuolation Not Reportable 04/19/18 05:19 Dohle Bodies Not Reportable 04/19/18 05:19 Pelger-Huet Anomaly Not Reportable 04/19/18 05:19 Nicole Rods Not Reportable 04/19/18 05:19 Platelet Estimate Consistent w auto 04/19/18 05:19 Clumped Platelets Not Reportable 04/19/18 05:19 Plt Clumps, EDTA Not Reportable 04/19/18 05:19 Large Platelets Not Reportable 04/19/18 05:19 Giant Platelets Not Reportable 02/10/19 05:19 Platelet Satelliting Not Reportable 04/19/18 05:19 Plt Morphology Comment Not Reportable 04/19/18 05:19 RBC Morphology Normal 04/19/18 05:19 Dimorphic RBCs Not Reportable 04/19/18 05:19 Polychromasia Not Reportable 04/19/18 05:19 Hypochromasia Not Reportable 04/19/18 05:19 Poikilocytosis Not Reportable 04/19/18 05:19 Anisocytosis Not Reportable 04/19/18 05:19 Microcytosis Not Reportable 04/19/18 05:19 Macrocytosis Not Reportable 04/19/18 05:19 Spherocytes Not Reportable 04/19/18 05:19 Pappenheimer Bodies Not Reportable 04/19/18 05:19 Sickle Cells Not Reportable 04/19/18 05:19 Target Cells Not Reportable 04/19/18 05:19 Tear Drop Cells Not Reportable 04/19/18 05:19 Ovalocytes Not Reportable 04/19/18 05:19 Helmet Cells Not Reportable 04/19/18 05:19 Spann-Matheny Bodies Not Reportable 04/19/18 05:19 Quinter Rings Not Reportable 04/19/18 05:19 Philip Cells Not Reportable 04/19/18 05:19 Bite Cells Not Reportable 04/19/18 05:19 Crenated Cell Not Reportable 04/19/18 05:19 Elliptocytes Not Reportable 04/19/18 05:19 Acanthocytes (Spur) Not Reportable 04/19/18 05:19 Rouleaux Not Reportable 04/19/18 05:19 Hemoglobin C Crystals Not Reportable 04/19/18 05:19 Schistocytes Not Reportable 04/19/18 05:19 Malaria parasites Not Reportable 04/19/18 05:19 Hung Bodies Not Reportable 04/19/18 05:19 Hem Pathologist Commnt No 04/19/18 05:19 PT 17.4 Sec. (12.2-14.9) H 04/20/18 05:18 INR 1.38 (0.87-1.13) H 04/20/18 05:18 APTT 29.4 Sec. (24.2-36.6) 04/19/18 05:19 POC ABG pH 7.367 (7.35-7.45) 04/19/18 00:19 POC ABG pCO2 36.8 (35-45) 04/19/18 00:19 POC ABG pO2 84 (80-105) 04/19/18 00:19 POC ABG HCO3 21.1 04/19/18 00:19 POC ABG Total CO2 22 04/19/18 00:19 POC ABG O2 Sat 96 04/19/18 00:19 POC ABG Base Excess -4 04/19/18 00:19 VBG pH 7.439 (7.320-7.420) H 04/18/18 14:30 FiO2 32 % 04/19/18 00:19 Sodium 137 mmol/L (137-145) 04/21/18 04:52 Potassium 3.2 mmol/L (3.6-5.0) L 04/21/18 04:52 Chloride 99.6 mmol/L (98-107) 04/21/18 04:52 Carbon Dioxide 26 mmol/L (22-30) 04/21/18 04:52 Anion Gap 15 mmol/L 04/21/18 04:52 BUN 11 mg/dL (7-17) 04/21/18 04:52 Creatinine 0.3 mg/dL (0.7-1.2) L 04/21/18 04:52 Estimated GFR > 60 ml/min 04/21/18 04:52 BUN/Creatinine Ratio 37 % 04/21/18 04:52 Glucose 99 mg/dL (65-100) 04/21/18 04:52 Lactic Acid 0.90 mmol/L (0.7-2.0) 04/18/18 18:41 Calcium 7.6 mg/dL (8.4-10.2) L 04/21/18 04:52 Total Bilirubin 1.20 mg/dL (0.1-1.2) 04/19/18 05:19 AST 35 units/L (5-40) 04/19/18 05:19 ALT 23 units/L (7-56) 04/19/18 05:19 Alkaline Phosphatase 60 units/L (35-129) 04/19/18 05:19 Total Protein 4.1 g/dL (6.3-8.2) L 04/19/18 05:19 Albumin 1.9 g/dL (3.9-5) L 04/19/18 05:19 Albumin/Globulin Ratio 0.9 % 04/19/18 05:19 Urine Color Yellow (Yellow) 04/20/18 13:35 Urine Turbidity Clear (Clear) 04/20/18 13:35 Urine pH 5.0 (5.0-7.0) 04/20/18 13:35 Ur Specific [place] 1.011 (1.003-1.030) 04/20/18 13:35 Urine Protein <15 mg/dl mg/dL (Negative) 04/20/18 13:35 Urine Glucose (UA) Neg mg/dL (Negative) 04/20/18 13:35 Urine Ketones 20 mg/dL (Negative) 04/20/18 13:35 Urine Blood Sm (Negative) 04/20/18 13:35 Urine Nitrite Neg (Negative) 04/20/18 13:35 Urine Bilirubin Neg (Negative) 04/20/18 13:35 Urine Urobilinogen 2.0 mg/dL (<2.0) 04/20/18 13:35 Ur Leukocyte Esterase Tr (Negative) 04/20/18 13:35 Urine WBC (Auto) 2.0 /HPF (0.0-6.0) 04/20/18 13:35 Urine RBC (Auto) 1.0 /HPF (0.0-6.0) 04/20/18 13:35 U Epithel Cells (Auto) 2.0 /HPF (0-13.0) 04/18/18 16:45 Urine Bacteria (Auto) 2+ /HPF (Negative) 04/18/18 16:45 Urine Mucus Few /HPF 04/20/18 13:35 Blood Type O POSITIVE 04/19/18 13:05 Antibody Screen Negative 04/19/18 13:05 Crossmatch See Detail 04/19/18 13:05
--- NOTE | 2018-04-21 18:23 | Progress Note ---
Assessment and Plan Patient awake and resting on room air at this time.O2 saturation 96%.No complaint of chest pain, shortness of breath or cough. - Patient Problems (1) Appendicitis with perforation Current Visit: Yes Status: Acute Plan to address problem: S/p resection of perforated appendex. (2) Sepsis Current Visit: Yes Status: Acute Qualifiers: Sepsis type: sepsis due to unspecified organism Qualified Code(s): A41.9 - Sepsis, unspecified organism Plan to address problem: Patient is on rocephin, metronidazole and diflucan. (3) Acute metabolic encephalopathy Current Visit: No Status: Acute Plan to address problem: Appears some what improved. Management as per primary care. (4) Marijuana abuse Current Visit: No Status: Acute Plan to address problem: Counselled not use marijuana. Subjective Date of service: 04/21/18 Principal diagnosis: Sepsis; S/P Ex-lap with appendectomy and evacuation of pelvic abscess; Bhargav Interval history: Patient awake and resting on room air at this time.O2 saturation 96%.No complaint of chest pain, shortness of breath or cough. Objective Vital Signs - 12hr 04/21/18 04/21/18 04/21/18 08:07 10:39 11:18 Temperature 99.0 F Pulse Rate 101 H Respiratory 20 20 Rate Blood Pressure 175/91 O2 Sat by Pulse 92 98 Oximetry 04/21/18 04/21/18 04/21/18 11:30 12:33 15:39 Temperature Pulse Rate 110 H Respiratory 20 Rate Blood Pressure 175/91 O2 Sat by Pulse 91 Oximetry 04/21/18 04/21/18 04/21/18 16:14 16:30 17:00 Temperature 98 F 98.2 F 98.2 F Pulse Rate 107 H 106 H 107 H Respiratory 18 18 20 Rate Blood Pressure 165/85 156/70 155/76 O2 Sat by Pulse 96 Oximetry 04/21/18 17:30 Temperature 98 F Pulse Rate 108 H Respiratory 20 Rate Blood Pressure 161/80 O2 Sat by Pulse Oximetry Constitutional: no acute distress, alert, other (chronically ill looking this middle aged CF, normocephalic) Eyes: non-icteric ENT: oropharynx moist, other (Mallampati 2) Neck: supple, no lymphadenopathy, no JVD Effort: mildly labored Ascultation: Bilateral: diminished breath sounds, rhonchi Percussion: Bilateral: not dull Cardiovascular: regular rate and rhythm Gastrointestinal: normoactive bowel sounds, soft, tender (bhargav-op site), non- distended Integumentary: other (poor turgor) Extremities: no cyanosis, no edema, pink and warm, pulses normal Neurologic: normal mental status, non-focal exam, pupils equal and round Psychiatric: mood appropriate, affect normal CBC and BMP: 04/21/18 04:52 04/21/18 04:52 ABG, PT/INR, D-dimer: ABG POC ABG pH 7.367 (7.35-7.45) 04/19/18 00:19 POC ABG pCO2 36.8 (35-45) 04/19/18 00:19 POC ABG pO2 84 (80-105) 04/19/18 00:19 POC ABG HCO3 21.1 04/19/18 00:19 POC ABG Total CO2 22 04/19/18 00:19 POC ABG O2 Sat 96 04/19/18 00:19 PT/INR, D-dimer PT 17.4 Sec. (12.2-14.9) H 04/20/18 05:18 INR 1.38 (0.87-1.13) H 04/20/18 05:18 Abnormal lab findings: Abnormal Labs 04/18/18 04/18/18 04/18/18 14:30 14:30 14:30 WBC 18.6 H RBC Hgb Hct RDW Lymph % (Auto) Lymph # Seg Neutrophils % Seg Neuts % (Manual) 79.0 H Lymphocytes % (Manual) 4.0 L Seg Neutrophils # Man 14.7 H Lymphocytes # (Manual) 0.7 L PT 16.3 H INR 1.27 H VBG pH Sodium 121 L Potassium 3.0 L Chloride 78.0 L Carbon Dioxide Creatinine 0.5 L Glucose 110 H Lactic Acid Calcium Total Bilirubin 1.30 H AST 42 H Total Protein Albumin 3.1 L Crossmatch 04/18/18 04/18/18 04/18/18 14:30 14:30 23:59 WBC RBC Hgb Hct RDW 15.8 H Lymph % (Auto) Lymph # Seg Neutrophils % Seg Neuts % (Manual) 78.0 H Lymphocytes % (Manual) 6.0 L Seg Neutrophils # Man Lymphocytes # (Manual) 0.5 L PT INR VBG pH 7.439 H Sodium Potassium Chloride Carbon Dioxide Creatinine Glucose Lactic Acid 3.60 H* Calcium Total Bilirubin AST Total Protein Albumin Crossmatch 04/18/18 04/19/18 04/19/18 23:59 05:19 05:19 WBC 15.0 H RBC Hgb Hct RDW 15.3 H Lymph % (Auto) Lymph # Seg Neutrophils % Seg Neuts % (Manual) Lymphocytes % (Manual) 5.0 L Seg Neutrophils # Man 8.3 H Lymphocytes # (Manual) 0.8 L PT INR VBG pH Sodium 130 L D 133 L Potassium 3.5 L 3.3 L Chloride Carbon Dioxide 20 L D Creatinine 0.5 L 0.6 L Glucose 140 H 115 H Lactic Acid Calcium 7.5 L 7.4 L Total Bilirubin AST Total Protein 4.4 L D 4.1 L Albumin 2.0 L 1.9 L Crossmatch 04/19/18 04/19/18 04/20/18 05:19 13:05 05:18 WBC RBC Hgb Hct RDW Lymph % (Auto) Lymph # Seg Neutrophils % Seg Neuts % (Manual) Lymphocytes % (Manual) Seg Neutrophils # Man Lymphocytes # (Manual) PT 19.4 H 17.4 H INR 1.59 H 1.38 H VBG pH Sodium Potassium Chloride Carbon Dioxide Creatinine Glucose Lactic Acid Calcium Total Bilirubin AST Total Protein Albumin Crossmatch See Detail 04/20/18 04/20/18 04/21/18 13:47 13:47 04:52 WBC RBC 3.29 L 3.10 L Hgb 9.6 L 8.8 L Hct 28.1 L D 26.6 L RDW 15.3 H 15.4 H Lymph % (Auto) 5.6 L Lymph # 0.4 L Seg Neutrophils % 87.3 H Seg Neuts % (Manual) Lymphocytes % (Manual) Seg Neutrophils # Man Lymphocytes # (Manual) PT INR VBG pH Sodium Potassium Chloride Carbon Dioxide Creatinine 0.3 L Glucose 102 H Lactic Acid Calcium 8.0 L Total Bilirubin AST Total Protein Albumin Crossmatch 04/21/18 04:52 WBC RBC Hgb Hct RDW Lymph % (Auto) Lymph # Seg Neutrophils % Seg Neuts % (Manual) Lymphocytes % (Manual) Seg Neutrophils # Man Lymphocytes # (Manual) PT INR VBG pH Sodium Potassium 3.2 L Chloride Carbon Dioxide Creatinine 0.3 L Glucose Lactic Acid Calcium 7.6 L Total Bilirubin AST Total Protein Albumin Crossmatch Chest x-ray: report reviewed (Reported no acute cardiopulmonary process.), image reviewed Allied health notes reviewed: nursing
[2018-04-21] MEDS: ROCEPHIN/NS 2 GM/100 ML 2 GM/100 ML BAG IV SCH (20:23)
[2018-04-21] MEDS: NACL 0.9% 1000 ML 1,000 ML IV SCH (20:24)
[2018-04-21] MEDS: FLAGYL 500 MG/100 ML 500 MG/100 ML BAG IV SCH (21:24)
[2018-04-22] MEDS: DILAUDID IV PRN ×6 (02:12→23:55)
[2018-04-22] MEDS: FLAGYL 500 MG/100 ML 500 MG/100 ML BAG IV SCH ×3 (05:05→21:49)
[2018-04-22 05:48] LABS: Basophils % (Auto) 0.2 % (0.0-1.8); Eosinophils % (Auto) 0.4 % (0.0-4.3); Hematocrit 31.7 % (30.3-42.9); Hemoglobin 10.5 gm/dl (10.1-14.3); Lymphocytes # (Auto) 0.6 K/mm3 (1.2-5.4); Lymphocytes % (Auto) 8.5 % (13.4-35.0); Mean Corpuscular HGB Conc 33 % (30-34); Mean Corpuscular Volume 87 fl (79-97); Monocytes # (Auto) 0.7 K/mm3 (0.0-0.8); Monocytes % (Auto) 9.9 % (0.0-7.3); Platelet Count 184 K/mm3 (140-440); Red Blood Count 3.64 M/mm3 (3.65-5.03)
[2018-04-22 05:51] LABS: INR 1.17 (0.87-1.13)
[2018-04-22 06:09] LABS: BUN/Creatinine Ratio 43; Blood Urea Nitrogen 13 mg/dL (7-17); Calcium 7.7 mg/dL (8.4-10.2); Hemolysis Index 8
[2018-04-22] MEDS: ZOFRAN IV PRN ×3 (06:14→23:56)
[2018-04-22] MEDS: NEURONTIN PO SCH ×5 (06:25→23:49)
[2018-04-22] MEDS: ROCEPHIN/NS 2 GM/100 ML 2 GM/100 ML BAG IV SCH (10:14)
[2018-04-22] MEDS: DIFLUCAN 200 MG/100 ML BAG IV SCH (10:14)
[2018-04-22] MEDS: PEPCID IV SCH ×2 (10:16→21:50)
[2018-04-22] MEDS: APRESOLINE IV PRN ×2 (10:16→17:26)
--- NOTE | 2018-04-22 10:32 | Progress Note ---
Assessment and Plan Cultures: 04/18/2018 blood cultures) progress 04/18/2018 urine culture: No growth 04/19/2018 intra-abdominal culture: E.Coli and Beta hemolytic Group C A/P: 57-year-old female with hypertension, neurofibromatosis, hepatitis C, COPD, nicotine dependence admitted with: 1) Sepsis Resolved, secondary to gangrenous and perforated appendix causing intra-abdominal/pelvic abscess: Status post exploratory laparotomy and evacuation of pelvic abscess. Continue abx. Given complicated intra-abdominal findings, may need a slightly longer course of abx than usual. 2) Chronic Hep C: untreated. Outpatient ID clinic follow up. Recs: -Continue fluconazole, D4 of D7 - continue Ceftiaxone and Flagyl for total 7 days ending 04-25-18 -f/u blood cultures [facility] M: [phone] O:[phone] Subjective Date of service: 04/22/18 Principal diagnosis: Sepsis; S/P Ex-lap with appendectomy and evacuation of pelvic abscess; Alexia Interval history: Patient seen and examined. Stated that she was feeling much better today, eating ice chips. Objective - Exam Narrative Exam: Constitutional: Awake, Alert. No acute distress Head, Ears, Nose: Normocephalic, atraumatic. External ears, nose normal Eyes: Conjunctivae/corneas clear. No icterus. No ptosis. Neck: Supple, no meningeal signs Oral: poor dentition, no thrush Cardiovascular: S1, S2 normal. Respiratory: Good air entry, clear to auscultation bilaterally GI:, bowel sounds +, +NGT to suction Musculoskeletal: No pedal edema, no cyanosis. Skin: No rash or abscess. Tattoos +, fibromas + Hem/Lymphatic: No palpable cervical or supraclavicular nodes. No lymphangitis Psych: Mood ok. Affect normal Neurological: Awake, alert, oriented. No gross abnormality - Constitutional Vitals: Vital Signs Temp Pulse Resp BP Pulse Ox 97.9 F 81 18 171/86 97 04/22/18 07:04 04/22/18 10:16 04/22/18 10:00 04/22/18 10:16 04/22/18 07:04 Temperature -Last 24 Hours Temperature 97.9 F Temperature 97.9 F Temperature 98.1 F Temperature 98 F Temperature 98.2 F Temperature 98.2 F Temperature 98 F Temperature 99.0 F - Labs CBC & Chem 7: 04/22/18 05:19 04/22/18 05:19 Labs: Abnormal lab results 04/19/18 04/22/18 04/22/18 Range/Units 13:05 05:19 05:19 RBC 3.64 L (3.65-5.03) M/mm3 Lymph % (Auto) 8.5 L (13.4-35.0) % [place] % (Auto) 9.9 H (0.0-7.3) % Lymph # 0.6 L (1.2-5.4) K/mm3 Seg Neutrophils % 81.0 H (40.0-70.0) % PT 15.3 H (12.2-14.9) Sec. INR 1.17 H (0.87-1.13) Potassium (3.6-5.0) mmol/L Creatinine (0.7-1.2) mg/dL Calcium (8.4-10.2) mg/dL Crossmatch See Detail 04/22/18 Range/Units 05:19 RBC (3.65-5.03) M/mm3 Lymph % (Auto) (13.4-35.0) % [place] % (Auto) (0.0-7.3) % Lymph # (1.2-5.4) K/mm3 Seg Neutrophils % (40.0-70.0) % PT (12.2-14.9) Sec. INR (0.87-1.13) Potassium 3.4 L (3.6-5.0) mmol/L Creatinine 0.3 L (0.7-1.2) mg/dL Calcium 7.7 L (8.4-10.2) mg/dL Crossmatch
--- NOTE | 2018-04-22 10:44 | Progress Note ---
Assessment and Plan POD # 4 Pt burping. neg flatus but otherwise no compl Abd - dressings dry 1+ distention. non tender stable h/h up post I unit transf ambulation continue present care Selected Entries 04/22/18 04/22/18 04/22/18 06:10 07:04 10:16 Temperature 97.9 F Pulse Rate 81 Respiratory 18 Rate Blood Pressure 171/86 Laboratory Tests 04/22/18 04/22/18 04/22/18 05:19 05:19 05:19 WBC 6.8 Hgb 10.5 Hct 31.7 PT 15.3 H INR 1.17 H Sodium 139 Potassium 3.4 L Chloride 100.7 Carbon Dioxide 26 BUN 13 Creatinine 0.3 L Objective Vital Signs - 12hr 04/21/18 04/22/18 04/22/18 23:30 02:09 02:12 Temperature 97.9 F Pulse Rate 101 H Respiratory 20 20 20 Rate Respiratory Rate [Back] Blood Pressure 175/89 O2 Sat by Pulse 97 Oximetry 04/22/18 04/22/18 04/22/18 06:10 07:04 10:00 Temperature 97.9 F Pulse Rate 93 H Respiratory 18 22 Rate Respiratory 18 Rate [Back] Blood Pressure 161/83 O2 Sat by Pulse 97 Oximetry 04/22/18 10:16 Temperature Pulse Rate 81 Respiratory Rate Respiratory Rate [Back] Blood Pressure 171/86 O2 Sat by Pulse Oximetry - Labs 04/22/18 05:19 04/22/18 05:19 Diabetes panel 04/22/18 Range/Units 05:19 Sodium 139 (137-145) mmol/L Potassium 3.4 L (3.6-5.0) mmol/L Chloride 100.7 (98-107) mmol/L Carbon Dioxide 26 (22-30) mmol/L BUN 13 (7-17) mg/dL Creatinine 0.3 L (0.7-1.2) mg/dL Glucose 88 (65-100) mg/dL Calcium 7.7 L (8.4-10.2) mg/dL Calcium panel 04/22/18 Range/Units 05:19 Calcium 7.7 L (8.4-10.2) mg/dL Pituitary panel 04/22/18 Range/Units 05:19 Sodium 139 (137-145) mmol/L Potassium 3.4 L (3.6-5.0) mmol/L Chloride 100.7 (98-107) mmol/L Carbon Dioxide 26 (22-30) mmol/L BUN 13 (7-17) mg/dL Creatinine 0.3 L (0.7-1.2) mg/dL Glucose 88 (65-100) mg/dL Calcium 7.7 L (8.4-10.2) mg/dL Adrenal panel 04/22/18 Range/Units 05:19 Sodium 139 (137-145) mmol/L Potassium 3.4 L (3.6-5.0) mmol/L Chloride 100.7 (98-107) mmol/L Carbon Dioxide 26 (22-30) mmol/L BUN 13 (7-17) mg/dL Creatinine 0.3 L (0.7-1.2) mg/dL Glucose 88 (65-100) mg/dL Calcium 7.7 L (8.4-10.2) mg/dL
[2018-04-22] MEDS: SODIUM CHLORIDE FLUSH SYRINGE 10 ML IV SCH ×2 (11:01→23:56)
[2018-04-22] MEDS: celeXA PO SCH (11:09)
[2018-04-22] MEDS: BUSPAR PO SCH ×2 (11:09→23:49)
[2018-04-22] MEDS: ZANAFLEX PO SCH (11:10)
--- NOTE | 2018-04-22 12:15 | Progress Note ---
Assessment and Plan Assessment and plan: Sepsis. Etiology secondary to gangrenous and perforated appendix causing intra- abdominal/pelvic abscess. Patient is status post exploratory laparotomy with appendectomy and evacuation of pelvic abscess. ID following. Continue antibiotics. Continue NPO Chronic hep C. Untreated. Outpatient follow-up. Hypertension. Continue antihypertensive medications. COPD. Compensated. Hypokalemia. Replete potassium. Recheck in am Hyponatremia. Resolved after Changing IV fluid to normal saline. Neurofibromatosis Tobacco abuse. Patient counseled on smoking cessation. Discussed with Surgeon History Interval history: Feels better, Minimal abd pain Removed NG tube 2 X on 04/20/18 but replaced Hospitalist Physical - Physical exam Narrative exam: GEN: Not in acute distress, lying in bed HEENT: Normocephalic, atraumatic. NG tube in, Neck: supple, No JVD Lungs: Clear to auscultation bilaterally, no wheeze Heart:S1 and S2 regular, no murmurs, rubs or gallop, Abd:soft, mild tender, dressing over abdomen Ext: No edema, no clubbing or cyanosis Neuro: AAO x 3, moves all extremities, no focal neurological signs - Constitutional Vitals: Temp Pulse Resp BP Pulse Ox 97.9 F 81 18 171/86 97 04/22/18 07:04 04/22/18 10:16 04/22/18 10:00 04/22/18 10:16 04/22/18 07:04 General appearance: Present: no acute distress Results - Labs CBC & Chem 7: 04/22/18 05:19 04/22/18 05:19 Labs: Laboratory Last Values WBC 6.8 K/mm3 (4.5-11.0) 04/22/18 05:19 RBC 3.64 M/mm3 (3.65-5.03) L 04/22/18 05:19 Hgb 10.5 gm/dl (10.1-14.3) 04/22/18 05:19 Hct 31.7 % (30.3-42.9) 04/22/18 05:19 MCV 87 fl (79-97) 04/22/18 05:19 MCH 29 pg (28-32) 04/22/18 05:19 MCHC 33 % (30-34) 04/22/18 05:19 RDW 15.0 % (13.2-15.2) 04/22/18 05:19 Plt Count 184 K/mm3 (140-440) 04/22/18 05:19 Lymph % (Auto) 8.5 % (13.4-35.0) L 04/22/18 05:19 [place] % (Auto) 9.9 % (0.0-7.3) H 04/22/18 05:19 Eos % (Auto) 0.4 % (0.0-4.3) 04/22/18 05:19 Baso % (Auto) 0.2 % (0.0-1.8) 04/22/18 05:19 Lymph # 0.6 K/mm3 (1.2-5.4) L 04/22/18 05:19 [place] # 0.7 K/mm3 (0.0-0.8) 04/22/18 05:19 Eos # 0.0 K/mm3 (0.0-0.4) 04/22/18 05:19 Baso # 0.0 K/mm3 (0.0-0.1) 04/22/18 05:19 Add Manual Diff Complete 04/19/18 05:19 Total Counted 100 04/19/18 05:19 Seg Neutrophils % 81.0 % (40.0-70.0) H 04/22/18 05:19 Seg Neuts % (Manual) 55.0 % (40.0-70.0) 04/19/18 05:19 Band Neutrophils % 39.0 % 04/19/18 05:19 Lymphocytes % (Manual) 5.0 % (13.4-35.0) L 04/19/18 05:19 Reactive Lymphs % (Man) 0 % 04/19/18 05:19 Monocytes % (Manual) 1.0 % (0.0-7.3) 04/19/18 05:19 Eosinophils % (Manual) 0 % (0.0-4.3) 04/19/18 05:19 Basophils % (Manual) 0 % (0.0-1.8) 04/19/18 05:19 Metamyelocytes % 0 % 04/19/18 05:19 Myelocytes % 0 % 04/19/18 05:19 Promyelocytes % 0 % 04/19/18 05:19 Blast Cells % 0 % 04/19/18 05:19 Nucleated RBC % Not Reportable 04/19/18 05:19 Seg Neutrophils # 5.5 K/mm3 (1.8-7.7) 04/22/18 05:19 Seg Neutrophils # Man 8.3 K/mm3 (1.8-7.7) H 04/19/18 05:19 Band Neutrophils # 5.9 K/mm3 04/19/18 05:19 Lymphocytes # (Manual) 0.8 K/mm3 (1.2-5.4) L 04/19/18 05:19 Abs React Lymphs (Man) 0.0 K/mm3 04/19/18 05:19 Monocytes # (Manual) 0.2 K/mm3 (0.0-0.8) 04/19/18 05:19 Eosinophils # (Manual) 0.0 K/mm3 (0.0-0.4) 04/19/18 05:19 Basophils # (Manual) 0.0 K/mm3 (0.0-0.1) 04/19/18 05:19 Metamyelocytes # 0.0 K/mm3 04/19/18 05:19 Myelocytes # 0.0 K/mm3 04/19/18 05:19 Promyelocytes # 0.0 K/mm3 04/19/18 05:19 Blast Cells # 0.0 K/mm3 04/19/18 05:19 WBC Morphology Not Reportable 04/19/18 05:19 Hypersegmented Neuts Not Reportable 04/19/18 05:19 Hyposegmented Neuts Not Reportable 04/19/18 05:19 Hypogranular Neuts Not Reportable 04/19/18 05:19 Smudge Cells Not Reportable 04/19/18 05:19 Toxic Granulation Not Reportable 04/19/18 05:19 Toxic Vacuolation Not Reportable 04/19/18 05:19 Dohle Bodies Not Reportable 04/19/18 05:19 Pelger-Huet Anomaly Not Reportable 04/19/18 05:19 Nicole Rods Not Reportable 04/19/18 05:19 Platelet Estimate Consistent w auto 04/19/18 05:19 Clumped Platelets Not Reportable 04/19/18 05:19 Plt Clumps, EDTA Not Reportable 04/19/18 05:19 Large Platelets Not Reportable 04/19/18 05:19 Giant Platelets Not Reportable 04/19/18 05:19 Platelet Satelliting Not Reportable 04/19/18 05:19 Plt Morphology Comment Not Reportable 04/19/18 05:19 RBC Morphology Normal 04/19/18 05:19 Dimorphic RBCs Not Reportable 04/19/18 05:19 Polychromasia Not Reportable 04/19/18 05:19 Hypochromasia Not Reportable 04/19/18 05:19 Poikilocytosis Not Reportable 04/19/18 05:19 Anisocytosis Not Reportable 04/19/18 05:19 Microcytosis Not Reportable 04/19/18 05:19 Macrocytosis Not Reportable 04/19/18 05:19 Spherocytes Not Reportable 04/19/18 05:19 Pappenheimer Bodies Not Reportable 04/19/18 05:19 Sickle Cells Not Reportable 04/19/18 05:19 Target Cells Not Reportable 04/19/18 05:19 Tear Drop Cells Not Reportable 04/19/18 05:19 Ovalocytes Not Reportable 04/19/18 05:19 Helmet Cells Not Reportable 04/19/18 05:19 [place] Bodies Not Reportable 04/19/18 05:19 [place] Rings Not Reportable 04/19/18 05:19 Philip Cells Not Reportable 04/19/18 05:19 Bite Cells Not Reportable 04/19/18 05:19 Crenated Cell Not Reportable 04/19/18 05:19 Elliptocytes Not Reportable 04/19/18 05:19 Acanthocytes (Spur) Not Reportable 04/19/18 05:19 Rouleaux Not Reportable 04/19/18 05:19 Hemoglobin C Crystals Not Reportable 04/19/18 05:19 Schistocytes Not Reportable 04/19/18 05:19 Malaria parasites Not Reportable 04/19/18 05:19 Hung Bodies Not Reportable 04/19/18 05:19 Hem Pathologist Commnt No 04/19/18 05:19 PT 15.3 Sec. (12.2-14.9) H 04/22/18 05:19 INR 1.17 (0.87-1.13) H 04/22/18 05:19 APTT 29.4 Sec. (24.2-36.6) 04/19/18 05:19 POC ABG pH 7.367 (7.35-7.45) 04/19/18 00:19 POC ABG pCO2 36.8 (35-45) 04/19/18 00:19 POC ABG pO2 84 (80-105) 04/19/18 00:19 POC ABG HCO3 21.1 04/19/18 00:19 POC ABG Total CO2 22 04/19/18 00:19 POC ABG O2 Sat 96 04/19/18 00:19 POC ABG Base Excess -4 04/19/18 00:19 VBG pH 7.439 (7.320-7.420) H 04/18/18 14:30 FiO2 32 % 04/19/18 00:19 Sodium 139 mmol/L (137-145) 04/22/18 05:19 Potassium 3.4 mmol/L (3.6-5.0) L 04/22/18 05:19 Chloride 100.7 mmol/L (98-107) 04/22/18 05:19 Carbon Dioxide 26 mmol/L (22-30) 04/22/18 05:19 Anion Gap 16 mmol/L 04/22/18 05:19 BUN 13 mg/dL (7-17) 04/22/18 05:19 Creatinine 0.3 mg/dL (0.7-1.2) L 04/22/18 05:19 Estimated GFR > 60 ml/min 04/22/18 05:19 BUN/Creatinine Ratio 43 % 04/22/18 05:19 Glucose 88 mg/dL (65-100) 04/22/18 05:19 Lactic Acid 0.90 mmol/L (0.7-2.0) 04/18/18 18:41 Calcium 7.7 mg/dL (8.4-10.2) L 04/22/18 05:19 Total Bilirubin 1.20 mg/dL (0.1-1.2) 04/19/18 05:19 AST 35 units/L (5-40) 04/19/18 05:19 ALT 23 units/L (7-56) 04/19/18 05:19 Alkaline Phosphatase 60 units/L (35-129) 04/19/18 05:19 Total Protein 4.1 g/dL (6.3-8.2) L 04/19/18 05:19 Albumin 1.9 g/dL (3.9-5) L 04/19/18 05:19 Albumin/Globulin Ratio 0.9 % 04/19/18 05:19 Urine Color Yellow (Yellow) 04/20/18 13:35 Urine Turbidity Clear (Clear) 04/20/18 13:35 Urine pH 5.0 (5.0-7.0) 04/20/18 13:35 Ur Specific [place] 1.011 (1.003-1.030) 04/20/18 13:35 Urine Protein <15 mg/dl mg/dL (Negative) 04/20/18 13:35 Urine Glucose (UA) Neg mg/dL (Negative) 04/20/18 13:35 Urine Ketones 20 mg/dL (Negative) 04/20/18 13:35 Urine Blood Sm (Negative) 04/20/18 13:35 Urine Nitrite Neg (Negative) 04/20/18 13:35 Urine Bilirubin Neg (Negative) 04/20/18 13:35 Urine Urobilinogen 2.0 mg/dL (<2.0) 04/20/18 13:35 Ur Leukocyte Esterase Tr (Negative) 04/20/18 13:35 Urine WBC (Auto) 2.0 /HPF (0.0-6.0) 04/20/18 13:35 Urine RBC (Auto) 1.0 /HPF (0.0-6.0) 04/20/18 13:35 U Epithel Cells (Auto) 2.0 /HPF (0-13.0) 04/18/18 16:45 Urine Bacteria (Auto) 2+ /HPF (Negative) 04/18/18 16:45 Urine Mucus Few /HPF 04/20/18 13:35 Blood Type O POSITIVE 04/19/18 13:05 Antibody Screen Negative 04/19/18 13:05 Crossmatch See Detail 04/19/18 13:05
[2018-04-22] MEDS: NACL 0.9% 1000 ML 1,000 ML IV SCH (14:50)
--- NOTE | 2018-04-22 18:41 | Progress Note ---
Assessment and Plan Patient awake and resting on 2 litres O2 at this time.O2 saturation 95%.Patient is weak.No complaint of chest pain, shortness of breath or cough. - Patient Problems (1) Appendicitis with perforation Current Visit: Yes Status: Acute Plan to address problem: S/p resection of perforated appendex. (2) Sepsis Current Visit: Yes Status: Acute Qualifiers: Sepsis type: sepsis due to unspecified organism Qualified Code(s): A41.9 - Sepsis, unspecified organism Plan to address problem: Patient is on rocephin, metronidazole and diflucan. (3) Acute metabolic encephalopathy Current Visit: No Status: Acute Plan to address problem: Appears improved. Management as per primary care. (4) Marijuana abuse Current Visit: No Status: Acute Plan to address problem: Counselled not use marijuana. Subjective Date of service: 04/22/18 Principal diagnosis: Sepsis; S/P Ex-lap with appendectomy and evacuation of pelvic abscess; Bhargav Interval history: Patient awake and resting on 2 litres O2 at this time.O2 saturation 95%.Patient is weak.No complaint of chest pain, shortness of breath or cough. Objective Vital Signs - 12hr 04/22/18 04/22/18 04/22/18 07:04 10:00 10:16 Temperature 97.9 F Pulse Rate 93 H 81 Respiratory 22 Rate Respiratory 18 Rate [Back] Blood Pressure 161/83 171/86 O2 Sat by Pulse 97 Oximetry 04/22/18 04/22/18 04/22/18 11:09 15:20 16:53 Temperature 98.0 F 97.8 F Pulse Rate 100 H 86 Respiratory 18 20 20 Rate Respiratory Rate [Back] Blood Pressure 168/77 189/87 O2 Sat by Pulse 96 98 Oximetry 04/22/18 17:26 Temperature Pulse Rate 86 Respiratory Rate Respiratory Rate [Back] Blood Pressure 189/87 O2 Sat by Pulse Oximetry Constitutional: no acute distress, alert, other (chronically ill looking this middle aged CF, normocephalic) Eyes: non-icteric ENT: oropharynx moist, other (Mallampati 2) Neck: supple, no lymphadenopathy, no JVD Effort: mildly labored Ascultation: Bilateral: diminished breath sounds, rhonchi Percussion: Bilateral: not dull Cardiovascular: regular rate and rhythm Gastrointestinal: normoactive bowel sounds, soft, tender (bhargav-op site), non- distended Integumentary: other (poor turgor) Extremities: no cyanosis, no edema, pink and warm, pulses normal Neurologic: normal mental status, non-focal exam, pupils equal and round Psychiatric: mood appropriate, affect normal CBC and BMP: 04/22/18 05:19 04/22/18 05:19 ABG, PT/INR, D-dimer: ABG POC ABG pH 7.367 (7.35-7.45) 04/19/18 00:19 POC ABG pCO2 36.8 (35-45) 04/19/18 00:19 POC ABG pO2 84 (80-105) 04/19/18 00:19 POC ABG HCO3 21.1 04/19/18 00:19 POC ABG Total CO2 22 04/19/18 00:19 POC ABG O2 Sat 96 04/19/18 00:19 PT/INR, D-dimer PT 15.3 Sec. (12.2-14.9) H 04/22/18 05:19 INR 1.17 (0.87-1.13) H 04/22/18 05:19 Abnormal lab findings: Abnormal Labs 04/18/18 04/18/18 04/18/18 14:30 14:30 14:30 WBC 18.6 H RBC Hgb Hct RDW Lymph % (Auto) [place] % (Auto) Lymph # Seg Neutrophils % Seg Neuts % (Manual) 79.0 H Lymphocytes % (Manual) 4.0 L Seg Neutrophils # Man 14.7 H Lymphocytes # (Manual) 0.7 L PT 16.3 H INR 1.27 H VBG pH Sodium 121 L Potassium 3.0 L Chloride 78.0 L Carbon Dioxide Creatinine 0.5 L Glucose 110 H Lactic Acid Calcium Total Bilirubin 1.30 H AST 42 H Total Protein Albumin 3.1 L Crossmatch 04/18/18 04/18/18 04/18/18 14:30 14:30 23:59 WBC RBC Hgb Hct RDW 15.8 H Lymph % (Auto) [place] % (Auto) Lymph # Seg Neutrophils % Seg Neuts % (Manual) 78.0 H Lymphocytes % (Manual) 6.0 L Seg Neutrophils # Man Lymphocytes # (Manual) 0.5 L PT INR VBG pH 7.439 H Sodium Potassium Chloride Carbon Dioxide Creatinine Glucose Lactic Acid 3.60 H* Calcium Total Bilirubin AST Total Protein Albumin Crossmatch 04/18/18 04/19/18 04/19/18 23:59 05:19 05:19 WBC 15.0 H RBC Hgb Hct RDW 15.3 H Lymph % (Auto) [place] % (Auto) Lymph # Seg Neutrophils % Seg Neuts % (Manual) Lymphocytes % (Manual) 5.0 L Seg Neutrophils # Man 8.3 H Lymphocytes # (Manual) 0.8 L PT INR VBG pH Sodium 130 L D 133 L Potassium 3.5 L 3.3 L Chloride Carbon Dioxide 20 L D Creatinine 0.5 L 0.6 L Glucose 140 H 115 H Lactic Acid Calcium 7.5 L 7.4 L Total Bilirubin AST Total Protein 4.4 L D 4.1 L Albumin 2.0 L 1.9 L Crossmatch 04/19/18 04/19/18 04/20/18 05:19 13:05 05:18 WBC RBC Hgb Hct RDW Lymph % (Auto) [place] % (Auto) Lymph # Seg Neutrophils % Seg Neuts % (Manual) Lymphocytes % (Manual) Seg Neutrophils # Man Lymphocytes # (Manual) PT 19.4 H 17.4 H INR 1.59 H 1.38 H VBG pH Sodium Potassium Chloride Carbon Dioxide Creatinine Glucose Lactic Acid Calcium Total Bilirubin AST Total Protein Albumin Crossmatch See Detail 04/20/18 04/20/18 04/21/18 13:47 13:47 04:52 WBC RBC 3.29 L 3.10 L Hgb 9.6 L 8.8 L Hct 28.1 L D 26.6 L RDW 15.3 H 15.4 H Lymph % (Auto) 5.6 L [place] % (Auto) Lymph # 0.4 L Seg Neutrophils % 87.3 H Seg Neuts % (Manual) Lymphocytes % (Manual) Seg Neutrophils # Man Lymphocytes # (Manual) PT INR VBG pH Sodium Potassium Chloride Carbon Dioxide Creatinine 0.3 L Glucose 102 H Lactic Acid Calcium 8.0 L Total Bilirubin AST Total Protein Albumin Crossmatch 04/21/18 04/22/18 04/22/18 04:52 05:19 05:19 WBC RBC 3.64 L Hgb Hct RDW Lymph % (Auto) 8.5 L [place] % (Auto) 9.9 H Lymph # 0.6 L Seg Neutrophils % 81.0 H Seg Neuts % (Manual) Lymphocytes % (Manual) Seg Neutrophils # Man Lymphocytes # (Manual) PT 15.3 H INR 1.17 H VBG pH Sodium Potassium 3.2 L Chloride Carbon Dioxide Creatinine 0.3 L Glucose Lactic Acid Calcium 7.6 L Total Bilirubin AST Total Protein Albumin Crossmatch 04/22/18 05:19 WBC RBC Hgb Hct RDW Lymph % (Auto) [place] % (Auto) Lymph # Seg Neutrophils % Seg Neuts % (Manual) Lymphocytes % (Manual) Seg Neutrophils # Man Lymphocytes # (Manual) PT INR VBG pH Sodium Potassium 3.4 L Chloride Carbon Dioxide Creatinine 0.3 L Glucose Lactic Acid Calcium 7.7 L Total Bilirubin AST Total Protein Albumin Crossmatch Allied health notes reviewed: nursing
[2018-04-23] MEDS: ZOFRAN IV PRN ×5 (04:15→21:18)
[2018-04-23] MEDS: DILAUDID IV PRN ×5 (04:15→21:17)
[2018-04-23] MEDS: FLAGYL 500 MG/100 ML 500 MG/100 ML BAG IV SCH ×3 (05:34→21:18)
[2018-04-23] MEDS ORDERED: APRESOLINE ONE (05:51)
[2018-04-23] MEDS: APRESOLINE IV PRN ×2 (05:55→12:04)
[2018-04-23] MEDS: NEURONTIN PO SCH ×5 (07:43→21:17)
[2018-04-23] MEDS: ROCEPHIN/NS 2 GM/100 ML 2 GM/100 ML BAG IV SCH ×2 (08:08→11:45)
[2018-04-23] MEDS: SODIUM CHLORIDE FLUSH SYRINGE 10 ML IV SCH ×3 (08:13→21:18)
[2018-04-23] MEDS: DIFLUCAN 200 MG/100 ML BAG IV SCH (09:20)
[2018-04-23] MEDS: PEPCID IV SCH ×2 (09:20→21:18)
--- NOTE | 2018-04-23 09:30 | Progress Note ---
Assessment and Plan Cultures: 04/18/2018 blood cultures) progress 04/18/2018 urine culture: No growth 04/19/2018 intra-abdominal culture: E.Coli and Beta hemolytic Group C A/P: 57-year-old female with hypertension, neurofibromatosis, hepatitis C, COPD, nicotine dependence admitted with: 1) Sepsis Resolved, secondary to gangrenous and perforated appendix causing intra-abdominal/pelvic abscess: Status post exploratory laparotomy and evacuation of pelvic abscess. Continue abx. Given complicated intra-abdominal findings, may need a slightly longer course of abx than usual. 2) Chronic Hep C: untreated. Outpatient ID clinic follow up. Recs: -Continue fluconazole, D5 of D7 - continue Ceftiaxone and Flagyl for total 7 days ending 04-25-18 -f/u blood cultures [facility] M: [phone] O:[phone] Subjective Date of service: 04/23/18 Principal diagnosis: Sepsis; S/P Ex-lap with appendectomy and evacuation of pelvic abscess; Alexia Interval history: Patient seen and examined. Stated that she was feeling much better today, eating ice chips. Objective - Exam Narrative Exam: Constitutional: Awake, Alert. No acute distress Head, Ears, Nose: Normocephalic, atraumatic. External ears, nose normal Eyes: Conjunctivae/corneas clear. No icterus. No ptosis. Neck: Supple, no meningeal signs Oral: poor dentition, no thrush Cardiovascular: S1, S2 normal. Respiratory: Good air entry, clear to auscultation bilaterally GI:, bowel sounds +, +NGT to suction Musculoskeletal: No pedal edema, no cyanosis. Skin: No rash or abscess. Tattoos +, fibromas + Hem/Lymphatic: No palpable cervical or supraclavicular nodes. No lymphangitis Psych: Mood ok. Affect normal Neurological: Awake, alert, oriented. No gross abnormality - Constitutional Vitals: Vital Signs Temp Pulse Resp BP Pulse Ox 98.4 F 95 H 18 183/94 95 04/23/18 05:00 04/23/18 05:00 04/23/18 05:00 04/23/18 05:00 04/23/18 09:08 Temperature -Last 24 Hours Temperature 98.4 F Temperature 98.6 F Temperature 97.8 F Temperature 98.0 F - Labs CBC & Chem 7: 04/22/18 05:19 04/22/18 05:19
[2018-04-23] MEDS: BUSPAR PO SCH ×2 (11:46→21:17)
[2018-04-23] MEDS: celeXA PO SCH (11:47)
[2018-04-23] MEDS: ZANAFLEX PO SCH (11:47)
--- NOTE | 2018-04-23 12:24 | Progress Note ---
Assessment and Plan Assessment and plan: Sepsis. Etiology secondary to gangrenous and perforated appendix causing intra- abdominal/pelvic abscess. Patient is status post exploratory laparotomy with appendectomy and evacuation of pelvic abscess. ID following. Continue antibiotics. Continue NPO Chronic hep C. Untreated. Outpatient follow-up. Hypertension. Continue antihypertensive medications. COPD. Compensated. Hypokalemia. Replete potassium. Recheck in am Hyponatremia. Resolved after Changing IV fluid to normal saline. Neurofibromatosis Tobacco abuse. Patient counseled on smoking cessation. Discussed with Surgeon History Interval history: Feels better, Minimal abd pain NG tube removed Hospitalist Physical - Physical exam Narrative exam: GEN: Not in acute distress, lying in bed HEENT: Normocephalic, atraumatic. NG tube in, Neck: supple, No JVD Lungs: Clear to auscultation bilaterally, no wheeze Heart:S1 and S2 regular, no murmurs, rubs or gallop, Abd:soft, mild tender, dressing over abdomen Ext: No edema, no clubbing or cyanosis Neuro: AAO x 3, moves all extremities, no focal neurological signs - Constitutional Vitals: Temp Pulse Resp BP Pulse Ox 98.4 F 103 H 18 177/87 95 04/23/18 05:00 04/23/18 12:04 04/23/18 05:00 04/23/18 12:04 04/23/18 09:08 General appearance: Present: no acute distress Results - Labs CBC & Chem 7: 04/24/18 07:23 04/24/18 07:19 Labs: Laboratory Last Values WBC 6.8 K/mm3 (4.5-11.0) 04/22/18 05:19 RBC 3.64 M/mm3 (3.65-5.03) L 04/22/18 05:19 Hgb 10.5 gm/dl (10.1-14.3) 04/22/18 05:19 Hct 31.7 % (30.3-42.9) 04/22/18 05:19 MCV 87 fl (79-97) 04/22/18 05:19 MCH 29 pg (28-32) 04/22/18 05:19 MCHC 33 % (30-34) 04/22/18 05:19 RDW 15.0 % (13.2-15.2) 04/22/18 05:19 Plt Count 184 K/mm3 (140-440) 04/22/18 05:19 Lymph % (Auto) 8.5 % (13.4-35.0) L 04/22/18 05:19 [place] % (Auto) 9.9 % (0.0-7.3) H 04/22/18 05:19 Eos % (Auto) 0.4 % (0.0-4.3) 04/22/18 05:19 Baso % (Auto) 0.2 % (0.0-1.8) 04/22/18 05:19 Lymph # 0.6 K/mm3 (1.2-5.4) L 04/22/18 05:19 [place] # 0.7 K/mm3 (0.0-0.8) 04/22/18 05:19 Eos # 0.0 K/mm3 (0.0-0.4) 04/22/18 05:19 Baso # 0.0 K/mm3 (0.0-0.1) 04/22/18 05:19 Add Manual Diff Complete 04/19/18 05:19 Total Counted 100 04/19/18 05:19 Seg Neutrophils % 81.0 % (40.0-70.0) H 04/22/18 05:19 Seg Neuts % (Manual) 55.0 % (40.0-70.0) 04/19/18 05:19 Band Neutrophils % 39.0 % 04/19/18 05:19 Lymphocytes % (Manual) 5.0 % (13.4-35.0) L 04/19/18 05:19 Reactive Lymphs % (Man) 0 % 04/19/18 05:19 Monocytes % (Manual) 1.0 % (0.0-7.3) 04/19/18 05:19 Eosinophils % (Manual) 0 % (0.0-4.3) 04/19/18 05:19 Basophils % (Manual) 0 % (0.0-1.8) 04/19/18 05:19 Metamyelocytes % 0 % 04/19/18 05:19 Myelocytes % 0 % 04/19/18 05:19 Promyelocytes % 0 % 04/19/18 05:19 Blast Cells % 0 % 04/19/18 05:19 Nucleated RBC % Not Reportable 04/19/18 05:19 Seg Neutrophils # 5.5 K/mm3 (1.8-7.7) 04/22/18 05:19 Seg Neutrophils # Man 8.3 K/mm3 (1.8-7.7) H 04/19/18 05:19 Band Neutrophils # 5.9 K/mm3 04/19/18 05:19 Lymphocytes # (Manual) 0.8 K/mm3 (1.2-5.4) L 04/19/18 05:19 Abs React Lymphs (Man) 0.0 K/mm3 04/19/18 05:19 Monocytes # (Manual) 0.2 K/mm3 (0.0-0.8) 04/19/18 05:19 Eosinophils # (Manual) 0.0 K/mm3 (0.0-0.4) 04/19/18 05:19 Basophils # (Manual) 0.0 K/mm3 (0.0-0.1) 04/19/18 05:19 Metamyelocytes # 0.0 K/mm3 04/19/18 05:19 Myelocytes # 0.0 K/mm3 04/19/18 05:19 Promyelocytes # 0.0 K/mm3 04/19/18 05:19 Blast Cells # 0.0 K/mm3 04/19/18 05:19 WBC Morphology Not Reportable 04/19/18 05:19 Hypersegmented Neuts Not Reportable 04/19/18 05:19 Hyposegmented Neuts Not Reportable 04/19/18 05:19 Hypogranular Neuts Not Reportable 04/19/18 05:19 Smudge Cells Not Reportable 04/19/18 05:19 Toxic Granulation Not Reportable 04/19/18 05:19 Toxic Vacuolation Not Reportable 04/19/18 05:19 Dohle Bodies Not Reportable 04/19/18 05:19 Pelger-Huet Anomaly Not Reportable 04/19/18 05:19 Nicole Rods Not Reportable 04/19/18 05:19 Platelet Estimate Consistent w auto 04/19/18 05:19 Clumped Platelets Not Reportable 04/19/18 05:19 Plt Clumps, EDTA Not Reportable 04/19/18 05:19 Large Platelets Not Reportable 04/19/18 05:19 Giant Platelets Not Reportable 04/19/18 05:19 Platelet Satelliting Not Reportable 04/19/18 05:19 Plt Morphology Comment Not Reportable 04/19/18 05:19 RBC Morphology Normal 04/19/18 05:19 Dimorphic RBCs Not Reportable 04/19/18 05:19 Polychromasia Not Reportable 04/19/18 05:19 Hypochromasia Not Reportable 04/19/18 05:19 Poikilocytosis Not Reportable 04/19/18 05:19 Anisocytosis Not Reportable 04/19/18 05:19 Microcytosis Not Reportable 04/19/18 05:19 Macrocytosis Not Reportable 04/19/18 05:19 Spherocytes Not Reportable 04/19/18 05:19 Pappenheimer Bodies Not Reportable 04/19/18 05:19 Sickle Cells Not Reportable 04/19/18 05:19 Target Cells Not Reportable 04/19/18 05:19 Tear Drop Cells Not Reportable 04/19/18 05:19 Ovalocytes Not Reportable 04/19/18 05:19 Helmet Cells Not Reportable 04/19/18 05:19 Spann-[place]iar[place] Bodies Not Reportable 04/19/18 05:19 [place] Rings Not Reportable 04/19/18 05:19 Philip Cells Not Reportable 04/19/18 05:19 Bite Cells Not Reportable 04/19/18 05:19 Crenated Cell Not Reportable 04/19/18 05:19 Elliptocytes Not Reportable 04/19/18 05:19 Acanthocytes (Spur) Not Reportable 04/19/18 05:19 Rouleaux Not Reportable 04/19/18 05:19 Hemoglobin C Crystals Not Reportable 04/19/18 05:19 Schistocytes Not Reportable 04/19/18 05:19 Malaria parasites Not Reportable 04/19/18 05:19 Hung Bodies Not Reportable 04/19/18 05:19 Hem Pathologist Commnt No 04/19/18 05:19 PT 15.3 Sec. (12.2-14.9) H 04/22/18 05:19 INR 1.17 (0.87-1.13) H 04/22/18 05:19 APTT 29.4 Sec. (24.2-36.6) 04/19/18 05:19 POC ABG pH 7.367 (7.35-7.45) 04/19/18 00:19 POC ABG pCO2 36.8 (35-45) 04/19/18 00:19 POC ABG pO2 84 (80-105) 04/19/18 00:19 POC ABG HCO3 21.1 04/19/18 00:19 POC ABG Total CO2 22 04/19/18 00:19 POC ABG O2 Sat 96 04/19/18 00:19 POC ABG Base Excess -4 04/19/18 00:19 VBG pH 7.439 (7.320-7.420) H 04/18/18 14:30 FiO2 32 % 04/19/18 00:19 Sodium 139 mmol/L (137-145) 04/22/18 05:19 Potassium 3.4 mmol/L (3.6-5.0) L 04/22/18 05:19 Chloride 100.7 mmol/L (98-107) 04/22/18 05:19 Carbon Dioxide 26 mmol/L (22-30) 04/22/18 05:19 Anion Gap 16 mmol/L 04/22/18 05:19 BUN 13 mg/dL (7-17) 04/22/18 05:19 Creatinine 0.3 mg/dL (0.7-1.2) L 04/22/18 05:19 Estimated GFR > 60 ml/min 04/22/18 05:19 BUN/Creatinine Ratio 43 % 04/22/18 05:19 Glucose 88 mg/dL (65-100) 04/22/18 05:19 Lactic Acid 0.90 mmol/L (0.7-2.0) 04/18/18 18:41 Calcium 7.7 mg/dL (8.4-10.2) L 04/22/18 05:19 Total Bilirubin 1.20 mg/dL (0.1-1.2) 04/19/18 05:19 AST 35 units/L (5-40) 04/19/18 05:19 ALT 23 units/L (7-56) 04/19/18 05:19 Alkaline Phosphatase 60 units/L (35-129) 04/19/18 05:19 Total Protein 4.1 g/dL (6.3-8.2) L 04/19/18 05:19 Albumin 1.9 g/dL (3.9-5) L 04/19/18 05:19 Albumin/Globulin Ratio 0.9 % 04/19/18 05:19 Urine Color Yellow (Yellow) 04/20/18 13:35 Urine Turbidity Clear (Clear) 04/20/18 13:35 Urine pH 5.0 (5.0-7.0) 04/20/18 13:35 Ur Specific [place] 1.011 (1.003-1.030) 04/20/18 13:35 Urine Protein <15 mg/dl mg/dL (Negative) 04/20/18 13:35 Urine Glucose (UA) Neg mg/dL (Negative) 04/20/18 13:35 Urine Ketones 20 mg/dL (Negative) 04/20/18 13:35 Urine Blood Sm (Negative) 04/20/18 13:35 Urine Nitrite Neg (Negative) 04/20/18 13:35 Urine Bilirubin Neg (Negative) 04/20/18 13:35 Urine Urobilinogen 2.0 mg/dL (<2.0) 04/20/18 13:35 Ur Leukocyte Esterase Tr (Negative) 04/20/18 13:35 Urine WBC (Auto) 2.0 /HPF (0.0-6.0) 04/20/18 13:35 Urine RBC (Auto) 1.0 /HPF (0.0-6.0) 04/20/18 13:35 U Epithel Cells (Auto) 2.0 /HPF (0-13.0) 04/18/18 16:45 Urine Bacteria (Auto) 2+ /HPF (Negative) 04/18/18 16:45 Urine Mucus Few /HPF 04/20/18 13:35 Blood Type O POSITIVE 04/19/18 13:05 Antibody Screen Negative 04/19/18 13:05 Crossmatch See Detail 04/19/18 13:05
--- NOTE | 2018-04-23 12:27 | Progress Note ---
Assessment and Plan Pt feeling well. no compl. + flatus Abd soft, non tender. + BS stable d/c ng keep npo x 24 hrs except for ice chips, popsicles and meds. ambulate down halls. continue present care Selected Entries 04/23/18 04/23/18 05:00 12:04 Temperature 98.4 F Pulse Rate 95 H Respiratory 18 Rate Blood Pressure 177/87 Objective Vital Signs - 12hr 04/23/18 04/23/18 04/23/18 05:00 09:08 12:04 Temperature 98.4 F Pulse Rate 95 H 103 H Respiratory 18 Rate Blood Pressure 177/87 Blood Pressure 183/94 [Right] O2 Sat by Pulse 94 95 Oximetry - Labs 04/22/18 05:19 04/22/18 05:19
--- NOTE | 2018-04-23 14:52 | Progress Note ---
Assessment and Plan -Sepsis. Etiology secondary to gangrenous and perforated appendix causing intra-abdominal/pelvic abscess. -status post exploratory laparotomy with appendectomy and evacuation of pelvic abscess. -Intrabdominal sepsis/peritonitis -Ruptured appendix with abdominal abscess -Tobacco abuse disorder -COPD -Neurofibromatosis -Continue antibiotics -VTE prophylaxis -Supplemental oxygen to keep O2 sats>88% -PT/OT/Mobility, OOB to chair daily -Incentive spirometry -Nicotine withdrawal precautions -Smoking cessation counselling was done at the bedside for 7 minutes, she states she is not ready to quit. -Bronchodilators per protocol -Analgesia, pain management -Popsicles Subjective Date of service: 04/23/18 Principal diagnosis: Sepsis; S/P Ex-lap with appendectomy and evacuation of pelvic abscess; Bhargav Interval history: Patient is seen today for: Sepsis; status post exploratory laparotomy with appendectomy and evacuation of pelvic abscess; Intrabdominal sepsis/peritonitis; Ruptured appendix with abdominal abscess Seen and examined at bedside; 24hour events reviewed; nursing and respiratory care staff consulted; no adverse overnight events reported to me; resting peacefully in bed; feels better; denies acute chest pains or palpitations; tolerating popsicles; no N/V/F/C Objective Vital Signs - 12hr 04/23/18 04/23/18 04/23/18 05:00 08:00 08:17 Temperature 98.4 F 98.2 F Pulse Rate 95 H 110 H 107 H Respiratory 18 18 Rate Blood Pressure Blood Pressure 183/94 165/79 [Right] O2 Sat by Pulse 94 99 Oximetry 04/23/18 04/23/18 04/23/18 09:08 11:36 12:00 Temperature 98.6 F 98.6 F Pulse Rate 100 H 103 H Respiratory 18 Rate Blood Pressure Blood Pressure 177/87 [Right] O2 Sat by Pulse 95 98 Oximetry 04/23/18 12:04 Temperature Pulse Rate 103 H Respiratory Rate Blood Pressure 177/87 Blood Pressure [Right] O2 Sat by Pulse Oximetry Constitutional: no acute distress, alert, other (chronically ill looking this middle aged CF, normocephalic) Eyes: non-icteric ENT: oropharynx moist, other (Mallampati 2) Neck: supple, no lymphadenopathy, no JVD Effort: mildly labored Ascultation: Bilateral: diminished breath sounds, rhonchi Percussion: Bilateral: not dull Cardiovascular: regular rate and rhythm Gastrointestinal: normoactive bowel sounds, soft, tender (bhargav-op site), non- distended, other (Drain in place) Integumentary: other (poor turgor) Extremities: no cyanosis, no edema, pink and warm, pulses normal Neurologic: normal mental status, non-focal exam, pupils equal and round Psychiatric: mood appropriate, affect normal CBC and BMP: 04/24/18 07:23 04/24/18 07:19 ABG, PT/INR, D-dimer: ABG POC ABG pH 7.367 (7.35-7.45) 04/19/18 00:19 POC ABG pCO2 36.8 (35-45) 04/19/18 00:19 POC ABG pO2 84 (80-105) 04/19/18 00:19 POC ABG HCO3 21.1 04/19/18 00:19 POC ABG Total CO2 22 04/19/18 00:19 POC ABG O2 Sat 96 04/19/18 00:19 PT/INR, D-dimer PT 15.3 Sec. (12.2-14.9) H 04/22/18 05:19 INR 1.17 (0.87-1.13) H 04/22/18 05:19 Abnormal lab findings: Abnormal Labs 04/18/18 04/18/18 04/18/18 14:30 14:30 14:30 WBC 18.6 H RBC Hgb Hct RDW Lymph % (Auto) [place] % (Auto) Lymph # Seg Neutrophils % Seg Neuts % (Manual) 79.0 H Lymphocytes % (Manual) 4.0 L Seg Neutrophils # Man 14.7 H Lymphocytes # (Manual) 0.7 L PT 16.3 H INR 1.27 H VBG pH Sodium 121 L Potassium 3.0 L Chloride 78.0 L Carbon Dioxide Creatinine 0.5 L Glucose 110 H Lactic Acid Calcium Total Bilirubin 1.30 H AST 42 H Total Protein Albumin 3.1 L Crossmatch 04/18/18 04/18/18 04/18/18 14:30 14:30 23:59 WBC RBC Hgb Hct RDW 15.8 H Lymph % (Auto) [place] % (Auto) Lymph # Seg Neutrophils % Seg Neuts % (Manual) 78.0 H Lymphocytes % (Manual) 6.0 L Seg Neutrophils # Man Lymphocytes # (Manual) 0.5 L PT INR VBG pH 7.439 H Sodium Potassium Chloride Carbon Dioxide Creatinine Glucose Lactic Acid 3.60 H* Calcium Total Bilirubin AST Total Protein Albumin Crossmatch 04/18/18 04/19/18 04/19/18 23:59 05:19 05:19 WBC 15.0 H RBC Hgb Hct RDW 15.3 H Lymph % (Auto) [place] % (Auto) Lymph # Seg Neutrophils % Seg Neuts % (Manual) Lymphocytes % (Manual) 5.0 L Seg Neutrophils # Man 8.3 H Lymphocytes # (Manual) 0.8 L PT INR VBG pH Sodium 130 L D 133 L Potassium 3.5 L 3.3 L Chloride Carbon Dioxide 20 L D Creatinine 0.5 L 0.6 L Glucose 140 H 115 H Lactic Acid Calcium 7.5 L 7.4 L Total Bilirubin AST Total Protein 4.4 L D 4.1 L Albumin 2.0 L 1.9 L Crossmatch 04/19/18 04/19/18 04/20/18 05:19 13:05 05:18 WBC RBC Hgb Hct RDW Lymph % (Auto) [place] % (Auto) Lymph # Seg Neutrophils % Seg Neuts % (Manual) Lymphocytes % (Manual) Seg Neutrophils # Man Lymphocytes # (Manual) PT 19.4 H 17.4 H INR 1.59 H 1.38 H VBG pH Sodium Potassium Chloride Carbon Dioxide Creatinine Glucose Lactic Acid Calcium Total Bilirubin AST Total Protein Albumin Crossmatch See Detail 04/20/18 04/20/18 04/21/18 13:47 13:47 04:52 WBC RBC 3.29 L 3.10 L Hgb 9.6 L 8.8 L Hct 28.1 L D 26.6 L RDW 15.3 H 15.4 H Lymph % (Auto) 5.6 L [place] % (Auto) Lymph # 0.4 L Seg Neutrophils % 87.3 H Seg Neuts % (Manual) Lymphocytes % (Manual) Seg Neutrophils # Man Lymphocytes # (Manual) PT INR VBG pH Sodium Potassium Chloride Carbon Dioxide Creatinine 0.3 L Glucose 102 H Lactic Acid Calcium 8.0 L Total Bilirubin AST Total Protein Albumin Crossmatch 04/21/18 04/22/18 04/22/18 04:52 05:19 05:19 WBC RBC 3.64 L Hgb Hct RDW Lymph % (Auto) 8.5 L [place] % (Auto) 9.9 H Lymph # 0.6 L Seg Neutrophils % 81.0 H Seg Neuts % (Manual) Lymphocytes % (Manual) Seg Neutrophils # Man Lymphocytes # (Manual) PT 15.3 H INR 1.17 H VBG pH Sodium Potassium 3.2 L Chloride Carbon Dioxide Creatinine 0.3 L Glucose Lactic Acid Calcium 7.6 L Total Bilirubin AST Total Protein Albumin Crossmatch 04/22/18 05:19 WBC RBC Hgb Hct RDW Lymph % (Auto) [place] % (Auto) Lymph # Seg Neutrophils % Seg Neuts % (Manual) Lymphocytes % (Manual) Seg Neutrophils # Man Lymphocytes # (Manual) PT INR VBG pH Sodium Potassium 3.4 L Chloride Carbon Dioxide Creatinine 0.3 L Glucose Lactic Acid Calcium 7.7 L Total Bilirubin AST Total Protein Albumin Crossmatch Allied health notes reviewed: nursing
[2018-04-23] MEDS: NACL 0.9% 1000 ML 1,000 ML IV SCH (21:19)
[2018-04-24] MEDS: DILAUDID IV PRN ×5 (03:08→23:25)
[2018-04-24] MEDS: FLAGYL 500 MG/100 ML 500 MG/100 ML BAG IV SCH ×4 (05:18→22:24)
[2018-04-24] MEDS: NEURONTIN PO SCH ×5 (05:18→22:28)
[2018-04-24 07:36] LABS: Basophils # (Auto) 0.1 K/mm3 (0.0-0.1); Basophils % (Auto) 1.6 % (0.0-1.8); Eosinophils % (Auto) 0.4 % (0.0-4.3); Hemoglobin 10.5 gm/dl (10.1-14.3); Lymphocytes # (Auto) 0.8 K/mm3 (1.2-5.4); Lymphocytes % (Auto) 10.1 % (13.4-35.0); Mean Corpuscular HGB Conc 34 % (30-34); Mean Corpuscular Volume 84 fl (79-97); Monocytes # (Auto) 0.6 K/mm3 (0.0-0.8); Monocytes % (Auto) 7.3 % (0.0-7.3); Platelet Count 198 K/mm3 (140-440); Red Blood Count 3.68 M/mm3 (3.65-5.03); Red Cell Distribution Width 15.3 % (13.2-15.2)
[2018-04-24 08:02] LABS: Alanine Aminotransferase 17 units/L (7-56); Albumin 2.2 g/dL (3.9-5); BUN/Creatinine Ratio 27; Blood Urea Nitrogen 8 mg/dL (7-17); Calcium 7.5 mg/dL (8.4-10.2); Hemolysis Index 9
[2018-04-24] MEDS ORDERED: MAGNESIUM SULFATE 4GM/100ML 4 GM/100 ML BAG IV ONE (09:00)
[2018-04-24] MEDS: ZOFRAN IV PRN ×3 (09:44→23:30)
[2018-04-24] MEDS: PEPCID IV SCH ×2 (09:44→22:27)
[2018-04-24] MEDS: celeXA PO SCH (09:45)
[2018-04-24] MEDS: DIFLUCAN 200 MG/100 ML BAG IV SCH (09:46)
[2018-04-24] MEDS: BUSPAR PO SCH ×2 (09:46→22:28)
[2018-04-24] MEDS: ZANAFLEX PO SCH (09:47)
[2018-04-24] MEDS: SODIUM CHLORIDE FLUSH SYRINGE 10 ML IV SCH ×2 (10:09→22:29)
--- NOTE | 2018-04-24 10:15 | Progress Note ---
Assessment and Plan Cultures: 04/18/2018 blood cultures: no growth thus far 04/18/2018 urine culture: No growth 04/19/2018 intra-abdominal culture: E.Coli and Beta hemolytic Group C A/P: 57-year-old female with hypertension, neurofibromatosis, hepatitis C, COPD, nicotine dependence admitted with: 1) Sepsis Resolved, secondary to gangrenous and perforated appendix causing intra-abdominal/pelvic abscess: Status post exploratory laparotomy and evacuation of pelvic abscess.Davol drain has drained 100 cc of sulcus entericus appearing fluid over the last [address] of abd and pelvis with po & IV contrast ordered to evaluate anastomotic or bowel leak - Surgery following Recs: -Continue fluconazole - continue Ceftiaxone - continue Flagyl D4 of D7 -f/u blood cultures Dr. Spears will be insulation packer this weekend , please call for questions. [facility] M: [phone] O:[phone] Subjective Date of service: 04/24/18 Principal diagnosis: Sepsis; S/P Ex-lap with appendectomy and evacuation of pelvic abscess; Alexia Interval history: Patient seen and examined. Asleep, difficult to arouse today. No acute distr ess. Nurses notes, labs and imaging reviewed. No family at bedside. Objective - Exam Narrative Exam: Constitutional: Asleep, difficult to arouse. no acute distress Head, Ears, Nose: Normocephalic, atraumatic. External ears, nose normal Eyes: Conjunctivae/corneas clear. No icterus. No ptosis. Neck: Supple, no meningeal signs Oral: poor dentition, no thrush Cardiovascular: S1, S2 normal. Respiratory: Good air entry, clear to auscultation bilaterally, 02 @ 4L GI:, bowel sounds, NG tube discontinued Musculoskeletal: No pedal edema, no cyanosis. Skin: No rash or abscess. Tattoos +, fibromas + Hem/Lymphatic: No palpable cervical or supraclavicular nodes. No lymphangitis Psych: Mood ok. Affect normal Neurological: Awake, alert, oriented. No gross abnormality - Constitutional Vitals: Vital Signs Temp Pulse Resp BP Pulse Ox 98.6 F 101 H 20 177/86 97 04/24/18 07:20 04/24/18 07:20 04/24/18 09:44 04/24/18 07:20 04/24/18 07:20 Temperature -Last 24 Hours Temperature 98.6 F Temperature 99.0 F Temperature 98.0 F Temperature 99.0 F Temperature 98.1 F Temperature 98.6 F Temperature 98.6 F - Labs CBC & Chem 7: 04/24/18 07:23 04/24/18 07:19 Labs: Abnormal lab results 04/24/18 04/24/18 04/24/18 Range/Units 07:19 07:19 07:23 RDW 15.3 H (13.2-15.2) % Lymph % (Auto) 10.1 L (13.4-35.0) % Lymph # 0.8 L (1.2-5.4) K/mm3 Seg Neutrophils % 80.6 H (40.0-70.0) % Potassium 2.9 L* (3.6-5.0) mmol/L Creatinine 0.3 L (0.7-1.2) mg/dL Glucose 103 H (65-100) mg/dL Calcium 7.5 L (8.4-10.2) mg/dL Magnesium 1.60 L (1.7-2.3) mg/dL Total Protein 4.3 L (6.3-8.2) g/dL Albumin 2.2 L (3.9-5) g/dL
--- NOTE | 2018-04-24 10:39 | Progress Note ---
Assessment and Plan -Sepsis. Etiology secondary to gangrenous and perforated appendix causing intra-abdominal/pelvic abscess. -status post exploratory laparotomy with appendectomy and evacuation of pelvic abscess. -Intrabdominal sepsis/peritonitis -Ruptured appendix with abdominal abscess -Tobacco abuse disorder -COPD -Neurofibromatosis -Hypokalemia -Continue antibiotics -VTE prophylaxis -Supplemental oxygen to keep O2 sats>88% -PT/OT/Mobility, OOB to chair daily -Incentive spirometry -Nicotine withdrawal precautions -Smoking cessation counselling was done at the bedside for 7 minutes, she states she is not ready to quit. -Bronchodilators per protocol -Analgesia, pain management -Popsicles -Replace potassium Subjective Date of service: 04/24/18 Principal diagnosis: Sepsis; S/P Ex-lap with appendectomy and evacuation of pelvic abscess; Bhargav Interval history: Patient is seen today for: Sepsis; status post exploratory laparotomy with appendectomy and evacuation of pelvic abscess; Intrabdominal sepsis/peritonitis; Ruptured appendix with abdominal abscess Seen and examined at bedside; 24hour events reviewed; nursing and respiratory care staff consulted; no adverse overnight events reported to me; resting peacefully in bed; feels better; denies acute chest pains or palpitations; tolerating popsicles; no N/V/F/C Objective Vital Signs - 12hr 04/23/18 04/24/18 04/24/18 23:40 03:08 04:21 Temperature 98.0 F 99.0 F Pulse Rate 109 H 110 H Respiratory 18 18 20 Rate Blood Pressure 146/73 163/84 Blood Pressure [Right] O2 Sat by Pulse 95 96 Oximetry 04/24/18 04/24/18 07:20 09:44 Temperature 98.6 F Pulse Rate 101 H Respiratory 19 20 Rate Blood Pressure Blood Pressure 177/86 [Right] O2 Sat by Pulse 97 Oximetry Constitutional: no acute distress, alert, other (chronically ill looking this middle aged CF, normocephalic) Eyes: non-icteric ENT: oropharynx moist, other (Mallampati 2) Neck: supple, no lymphadenopathy, no JVD Effort: mildly labored Ascultation: Bilateral: diminished breath sounds, rhonchi Percussion: Bilateral: not dull Cardiovascular: regular rate and rhythm Gastrointestinal: normoactive bowel sounds, soft, tender (bhargav-op site), non- distended, other (Drain in place) Integumentary: other (poor turgor) Extremities: no cyanosis, no edema, pink and warm, pulses normal Neurologic: normal mental status, non-focal exam, pupils equal and round Psychiatric: mood appropriate, affect normal CBC and BMP: 04/24/18 07:23 04/24/18 07:19 ABG, PT/INR, D-dimer: ABG POC ABG pH 7.367 (7.35-7.45) 04/19/18 00:19 POC ABG pCO2 36.8 (35-45) 04/19/18 00:19 POC ABG pO2 84 (80-105) 04/19/18 00:19 POC ABG HCO3 21.1 04/19/18 00:19 POC ABG Total CO2 22 04/19/18 00:19 POC ABG O2 Sat 96 04/19/18 00:19 PT/INR, D-dimer PT 15.3 Sec. (12.2-14.9) H 04/22/18 05:19 INR 1.17 (0.87-1.13) H 04/22/18 05:19 Abnormal lab findings: Abnormal Labs 04/18/18 04/18/18 04/18/18 14:30 14:30 14:30 WBC 18.6 H RBC Hgb Hct RDW Lymph % (Auto) Schleicher % (Auto) Lymph # Seg Neutrophils % Seg Neuts % (Manual) 79.0 H Lymphocytes % (Manual) 4.0 L Seg Neutrophils # Man 14.7 H Lymphocytes # (Manual) 0.7 L PT 16.3 H INR 1.27 H VBG pH Sodium 121 L Potassium 3.0 L Chloride 78.0 L Carbon Dioxide Creatinine 0.5 L Glucose 110 H Lactic Acid Calcium Magnesium Total Bilirubin 1.30 H AST 42 H Total Protein Albumin 3.1 L Crossmatch 04/18/18 04/18/18 04/18/18 14:30 14:30 23:59 WBC RBC Hgb Hct RDW 15.8 H Lymph % (Auto) [place] % (Auto) Lymph # Seg Neutrophils % Seg Neuts % (Manual) 78.0 H Lymphocytes % (Manual) 6.0 L Seg Neutrophils # Man Lymphocytes # (Manual) 0.5 L PT INR VBG pH 7.439 H Sodium Potassium Chloride Carbon Dioxide Creatinine Glucose Lactic Acid 3.60 H* Calcium Magnesium Total Bilirubin AST Total Protein Albumin Crossmatch 04/18/18 04/19/18 04/19/18 23:59 05:19 05:19 WBC 15.0 H RBC Hgb Hct RDW 15.3 H Lymph % (Auto) [place] % (Auto) Lymph # Seg Neutrophils % Seg Neuts % (Manual) Lymphocytes % (Manual) 5.0 L Seg Neutrophils # Man 8.3 H Lymphocytes # (Manual) 0.8 L PT INR VBG pH Sodium 130 L D 133 L Potassium 3.5 L 3.3 L Chloride Carbon Dioxide 20 L D Creatinine 0.5 L 0.6 L Glucose 140 H 115 H Lactic Acid Calcium 7.5 L 7.4 L Magnesium Total Bilirubin AST Total Protein 4.4 L D 4.1 L Albumin 2.0 L 1.9 L Crossmatch 04/19/18 04/19/18 04/20/18 05:19 13:05 05:18 WBC RBC Hgb Hct RDW Lymph % (Auto) [place] % (Auto) Lymph # Seg Neutrophils % Seg Neuts % (Manual) Lymphocytes % (Manual) Seg Neutrophils # Man Lymphocytes # (Manual) PT 19.4 H 17.4 H INR 1.59 H 1.38 H VBG pH Sodium Potassium Chloride Carbon Dioxide Creatinine Glucose Lactic Acid Calcium Magnesium Total Bilirubin AST Total Protein Albumin Crossmatch See Detail 04/20/18 04/20/18 04/21/18 13:47 13:47 04:52 WBC RBC 3.29 L 3.10 L Hgb 9.6 L 8.8 L Hct 28.1 L D 26.6 L RDW 15.3 H 15.4 H Lymph % (Auto) 5.6 L Schleicher % (Auto) Lymph # 0.4 L Seg Neutrophils % 87.3 H Seg Neuts % (Manual) Lymphocytes % (Manual) Seg Neutrophils # Man Lymphocytes # (Manual) PT INR VBG pH Sodium Potassium Chloride Carbon Dioxide Creatinine 0.3 L Glucose 102 H Lactic Acid Calcium 8.0 L Magnesium Total Bilirubin AST Total Protein Albumin Crossmatch 04/21/18 04/22/18 04/22/18 04:52 05:19 05:19 WBC RBC 3.64 L Hgb Hct RDW Lymph % (Auto) 8.5 L Schleicher % (Auto) 9.9 H Lymph # 0.6 L Seg Neutrophils % 81.0 H Seg Neuts % (Manual) Lymphocytes % (Manual) Seg Neutrophils # Man Lymphocytes # (Manual) PT 15.3 H INR 1.17 H VBG pH Sodium Potassium 3.2 L Chloride Carbon Dioxide Creatinine 0.3 L Glucose Lactic Acid Calcium 7.6 L Magnesium Total Bilirubin AST Total Protein Albumin Crossmatch 04/22/18 04/24/18 04/24/18 05:19 07:19 07:19 WBC RBC Hgb Hct RDW Lymph % (Auto) [place] % (Auto) Lymph # Seg Neutrophils % Seg Neuts % (Manual) Lymphocytes % (Manual) Seg Neutrophils # Man Lymphocytes # (Manual) PT INR VBG pH Sodium Potassium 3.4 L 2.9 L* Chloride Carbon Dioxide Creatinine 0.3 L 0.3 L Glucose 103 H Lactic Acid Calcium 7.7 L 7.5 L Magnesium 1.60 L Total Bilirubin AST Total Protein 4.3 L Albumin 2.2 L Crossmatch 04/24/18 07:23 WBC RBC Hgb Hct RDW 15.3 H Lymph % (Auto) 10.1 L [place] % (Auto) Lymph # 0.8 L Seg Neutrophils % 80.6 H Seg Neuts % (Manual) Lymphocytes % (Manual) Seg Neutrophils # Man Lymphocytes # (Manual) PT INR VBG pH Sodium Potassium Chloride Carbon Dioxide Creatinine Glucose Lactic Acid Calcium Magnesium Total Bilirubin AST Total Protein Albumin Crossmatch Allied health notes reviewed: nursing
[2018-04-24] MEDS: ROCEPHIN/NS 2 GM/100 ML 2 GM/100 ML BAG IV SCH (10:47)
--- NOTE | 2018-04-24 11:59 | Progress Note ---
Assessment and Plan POD # 6 Pt feeling well. hungry, eager to eat. Abd soft, non tender Davol drain has drained 100 cc of sulcus entericus appearing fluid over the last 5 hrs. clinically stable r/o anastomotic or bowel leak? CT abd and pelvis with po & IV contrast now. add I amp methylene blue to PO contrast. will await CT report and monitor drain drainage prior to attempting po liq diet correct K Selected Entries 04/24/18 04/24/18 07:20 10:00 Temperature 98.6 F Pulse Rate 101 H Respiratory 20 Rate [Back] Blood Pressure 177/86 [Right] Laboratory Tests 04/24/18 04/24/18 04/24/18 07:19 07:19 07:23 WBC 8.0 Hgb 10.5 Hct 31.0 Potassium 2.9 L* Magnesium 1.60 L Total Bilirubin 0.40 Objective Vital Signs - 12hr 04/24/18 04/24/18 04/24/18 03:08 04:21 07:20 Temperature 99.0 F 98.6 F Pulse Rate 110 H 101 H Respiratory 18 20 19 Rate Respiratory Rate [Back] Blood Pressure 163/84 Blood Pressure 177/86 [Right] O2 Sat by Pulse 96 97 Oximetry 04/24/18 04/24/18 04/24/18 09:44 10:00 10:14 Temperature Pulse Rate Respiratory 20 20 Rate Respiratory 20 Rate [Back] Blood Pressure Blood Pressure [Right] O2 Sat by Pulse Oximetry - Labs 04/24/18 07:23 04/24/18 07:19 Diabetes panel 04/24/18 Range/Units 07:19 Sodium 137 (137-145) mmol/L Potassium 2.9 L* (3.6-5.0) mmol/L Chloride 101.2 (98-107) mmol/L Carbon Dioxide 25 (22-30) mmol/L BUN 8 (7-17) mg/dL Creatinine 0.3 L (0.7-1.2) mg/dL Glucose 103 H (65-100) mg/dL Calcium 7.5 L (8.4-10.2) mg/dL AST 21 (5-40) units/L ALT 17 (7-56) units/L Alkaline Phosphatase 66 (35-129) units/L Total Protein 4.3 L (6.3-8.2) g/dL Albumin 2.2 L (3.9-5) g/dL Calcium panel 04/24/18 Range/Units 07:19 Calcium 7.5 L (8.4-10.2) mg/dL Albumin 2.2 L (3.9-5) g/dL Pituitary panel 04/24/18 Range/Units 07:19 Sodium 137 (137-145) mmol/L Potassium 2.9 L* (3.6-5.0) mmol/L Chloride 101.2 (98-107) mmol/L Carbon Dioxide 25 (22-30) mmol/L BUN 8 (7-17) mg/dL Creatinine 0.3 L (0.7-1.2) mg/dL Glucose 103 H (65-100) mg/dL Calcium 7.5 L (8.4-10.2) mg/dL Adrenal panel 04/24/18 Range/Units 07:19 Sodium 137 (137-145) mmol/L Potassium 2.9 L* (3.6-5.0) mmol/L Chloride 101.2 (98-107) mmol/L Carbon Dioxide 25 (22-30) mmol/L BUN 8 (7-17) mg/dL Creatinine 0.3 L (0.7-1.2) mg/dL Glucose 103 H (65-100) mg/dL Calcium 7.5 L (8.4-10.2) mg/dL Total Bilirubin 0.40 (0.1-1.2) mg/dL AST 21 (5-40) units/L ALT 17 (7-56) units/L Alkaline Phosphatase 66 (35-129) units/L Total Protein 4.3 L (6.3-8.2) g/dL Albumin 2.2 L (3.9-5) g/dL
[2018-04-24] MEDS ORDERED: METHYLENE BLUE PO ONE ×2 (12:15→13:30)
--- NOTE | 2018-04-24 13:55 | Progress Note ---
Assessment and Plan Assessment and plan: Sepsis. Etiology secondary to gangrenous and perforated appendix causing intra- abdominal/pelvic abscess. Patient is status post exploratory laparotomy with appendectomy and evacuation of pelvic abscess. ID following. Continue antibiotics. Started on ice chips by Surgeon, For CT Abd today Chronic hep C. Untreated. Outpatient follow-up. Hypertension. Continue antihypertensive medications. COPD. Compensated. Hypokalemia. Replete potassium. Recheck in am Hyponatremia. Resolved after Changing IV fluid to normal saline. Neurofibromatosis Tobacco abuse. Patient counseled on smoking cessation. Discussed with Surgeon History Interval history: Feels better, Minimal abd pain NG tube removed Hospitalist Physical - Physical exam Narrative exam: GEN: Not in acute distress, lying in bed HEENT: Normocephalic, atraumatic. NG tube in, Neck: supple, No JVD Lungs: Clear to auscultation bilaterally, no wheeze Heart:S1 and S2 regular, no murmurs, rubs or gallop, Abd:soft, mild tender, dressing over abdomen Ext: No edema, no clubbing or cyanosis Neuro: AAO x 3, moves all extremities, no focal neurological signs - Constitutional Vitals: Temp Pulse Resp BP Pulse Ox 98.8 F 83 20 102/56 97 04/24/18 12:10 04/24/18 12:10 04/24/18 13:43 04/24/18 12:10 04/24/18 12:10 General appearance: Present: no acute distress Results - Labs CBC & Chem 7: 04/24/18 07:23 04/24/18 07:19 Labs: Laboratory Last Values WBC 8.0 K/mm3 (4.5-11.0) 04/24/18 07:23 RBC 3.68 M/mm3 (3.65-5.03) 04/24/18 07:23 Hgb 10.5 gm/dl (10.1-14.3) 04/24/18 07:23 Hct 31.0 % (30.3-42.9) 04/24/18 07:23 MCV 84 fl (79-97) 04/24/18 07:23 MCH 28 pg (28-32) 04/24/18 07:23 MCHC 34 % (30-34) 04/24/18 07:23 RDW 15.3 % (13.2-15.2) H 04/24/18 07:23 Plt Count 198 K/mm3 (140-440) 04/24/18 07:23 Lymph % (Auto) 10.1 % (13.4-35.0) L 04/24/18 07:23 Nash % (Auto) 7.3 % (0.0-7.3) 04/24/18 07:23 Eos % (Auto) 0.4 % (0.0-4.3) 04/24/18 07:23 Baso % (Auto) 1.6 % (0.0-1.8) 04/24/18 07:23 Lymph # 0.8 K/mm3 (1.2-5.4) L 04/24/18 07:23 Nash # 0.6 K/mm3 (0.0-0.8) 04/24/18 07:23 Eos # 0.0 K/mm3 (0.0-0.4) 04/24/18 07:23 Baso # 0.1 K/mm3 (0.0-0.1) 04/24/18 07:23 Add Manual Diff Complete 04/19/18 05:19 Total Counted 100 04/19/18 05:19 Seg Neutrophils % 80.6 % (40.0-70.0) H 04/24/18 07:23 Seg Neuts % (Manual) 55.0 % (40.0-70.0) 04/19/18 05:19 Band Neutrophils % 39.0 % 04/19/18 05:19 Lymphocytes % (Manual) 5.0 % (13.4-35.0) L 04/19/18 05:19 Reactive Lymphs % (Man) 0 % 04/19/18 05:19 Monocytes % (Manual) 1.0 % (0.0-7.3) 04/19/18 05:19 Eosinophils % (Manual) 0 % (0.0-4.3) 04/19/18 05:19 Basophils % (Manual) 0 % (0.0-1.8) 04/19/18 05:19 Metamyelocytes % 0 % 04/19/18 05:19 Myelocytes % 0 % 04/19/18 05:19 Promyelocytes % 0 % 04/19/18 05:19 Blast Cells % 0 % 04/19/18 05:19 Nucleated RBC % Not Reportable 04/19/18 05:19 Seg Neutrophils # 6.5 K/mm3 (1.8-7.7) 04/24/18 07:23 Seg Neutrophils # Man 8.3 K/mm3 (1.8-7.7) H 04/19/18 05:19 Band Neutrophils # 5.9 K/mm3 04/19/18 05:19 Lymphocytes # (Manual) 0.8 K/mm3 (1.2-5.4) L 04/19/18 05:19 Abs React Lymphs (Man) 0.0 K/mm3 04/19/18 05:19 Monocytes # (Manual) 0.2 K/mm3 (0.0-0.8) 04/19/18 05:19 Eosinophils # (Manual) 0.0 K/mm3 (0.0-0.4) 04/19/18 05:19 Basophils # (Manual) 0.0 K/mm3 (0.0-0.1) 04/19/18 05:19 Metamyelocytes # 0.0 K/mm3 04/19/18 05:19 Myelocytes # 0.0 K/mm3 04/19/18 05:19 Promyelocytes # 0.0 K/mm3 04/19/18 05:19 Blast Cells # 0.0 K/mm3 04/19/18 05:19 WBC Morphology Not Reportable 04/19/18 05:19 Hypersegmented Neuts Not Reportable 04/19/18 05:19 Hyposegmented Neuts Not Reportable 04/19/18 05:19 Hypogranular Neuts Not Reportable 04/19/18 05:19 Smudge Cells Not Reportable 04/19/18 05:19 Toxic Granulation Not Reportable 04/19/18 05:19 Toxic Vacuolation Not Reportable 04/19/18 05:19 Dohle Bodies Not Reportable 04/19/18 05:19 Pelger-Huet Anomaly Not Reportable 04/19/18 05:19 Nicole Rods Not Reportable 04/19/18 05:19 Platelet Estimate Consistent w auto 04/19/18 05:19 Clumped Platelets Not Reportable 04/19/18 05:19 Plt Clumps, EDTA Not Reportable 04/19/18 05:19 Large Platelets Not Reportable 04/19/18 05:19 Giant Platelets Not Reportable 04/19/18 05:19 Platelet Satelliting Not Reportable 04/19/18 05:19 Plt Morphology Comment Not Reportable 04/19/18 05:19 RBC Morphology Normal 04/19/18 05:19 Dimorphic RBCs Not Reportable 04/19/18 05:19 Polychromasia Not Reportable 04/19/18 05:19 Hypochromasia Not Reportable 04/19/18 05:19 Poikilocytosis Not Reportable 04/19/18 05:19 Anisocytosis Not Reportable 04/19/18 05:19 Microcytosis Not Reportable 04/19/18 05:19 Macrocytosis Not Reportable 04/19/18 05:19 Spherocytes Not Reportable 04/19/18 05:19 Pappenheimer Bodies Not Reportable 04/19/18 05:19 Sickle Cells Not Reportable 04/19/18 05:19 Target Cells Not Reportable 04/19/18 05:19 Tear Drop Cells Not Reportable 04/19/18 05:19 Ovalocytes Not Reportable 04/19/18 05:19 Helmet Cells Not Reportable 04/19/18 05:19 [place] Bodies Not Reportable 04/19/18 05:19 [place] Rings Not Reportable 04/19/18 05:19 [place] Cells Not Reportable 04/19/18 05:19 Bite Cells Not Reportable 04/19/18 05:19 Crenated Cell Not Reportable 04/19/18 05:19 Elliptocytes Not Reportable 04/19/18 05:19 Acanthocytes (Spur) Not Reportable 04/19/18 05:19 Rouleaux Not Reportable 04/19/18 05:19 Hemoglobin C Crystals Not Reportable 04/19/18 05:19 Schistocytes Not Reportable 04/19/18 05:19 Malaria parasites Not Reportable 04/19/18 05:19 Hung Bodies Not Reportable 04/19/18 05:19 Hem Pathologist Commnt No 04/19/18 05:19 PT 15.3 Sec. (12.2-14.9) H 04/22/18 05:19 INR 1.17 (0.87-1.13) H 04/22/18 05:19 APTT 29.4 Sec. (24.2-36.6) 04/19/18 05:19 POC ABG pH 7.367 (7.35-7.45) 04/19/18 00:19 POC ABG pCO2 36.8 (35-45) 04/19/18 00:19 POC ABG pO2 84 (80-105) 04/19/18 00:19 POC ABG HCO3 21.1 04/19/18 00:19 POC ABG Total CO2 22 04/19/18 00:19 POC ABG O2 Sat 96 04/19/18 00:19 POC ABG Base Excess -4 04/19/18 00:19 VBG pH 7.439 (7.320-7.420) H 04/18/18 14:30 FiO2 32 % 04/19/18 00:19 Sodium 137 mmol/L (137-145) 04/24/18 07:19 Potassium 2.9 mmol/L (3.6-5.0) L* 04/24/18 07:19 Chloride 101.2 mmol/L (98-107) 04/24/18 07:19 Carbon Dioxide 25 mmol/L (22-30) 04/24/18 07:19 Anion Gap 14 mmol/L 04/24/18 07:19 BUN 8 mg/dL (7-17) 04/24/18 07:19 Creatinine 0.3 mg/dL (0.7-1.2) L 04/24/18 07:19 Estimated GFR > 60 ml/min 04/24/18 07:19 BUN/Creatinine Ratio 27 % 04/24/18 07:19 Glucose 103 mg/dL (65-100) H 04/24/18 07:19 Lactic Acid 0.90 mmol/L (0.7-2.0) 04/18/18 18:41 Calcium 7.5 mg/dL (8.4-10.2) L 04/24/18 07:19 Magnesium 1.60 mg/dL (1.7-2.3) L 04/24/18 07:19 Total Bilirubin 0.40 mg/dL (0.1-1.2) 04/24/18 07:19 AST 21 units/L (5-40) 04/24/18 07:19 ALT 17 units/L (7-56) 04/24/18 07:19 Alkaline Phosphatase 66 units/L (35-129) 04/24/18 07:19 Total Protein 4.3 g/dL (6.3-8.2) L 04/24/18 07:19 Albumin 2.2 g/dL (3.9-5) L 04/24/18 07:19 Albumin/Globulin Ratio 1.0 % 04/24/18 07:19 Urine Color Yellow (Yellow) 04/20/18 13:35 Urine Turbidity Clear (Clear) 04/20/18 13:35 Urine pH 5.0 (5.0-7.0) 04/20/18 13:35 Ur Specific [place] 1.011 (1.003-1.030) 04/20/18 13:35 Urine Protein <15 mg/dl mg/dL (Negative) 04/20/18 13:35 Urine Glucose (UA) Neg mg/dL (Negative) 04/20/18 13:35 Urine Ketones 20 mg/dL (Negative) 04/20/18 13:35 Urine Blood Sm (Negative) 04/20/18 13:35 Urine Nitrite Neg (Negative) 04/20/18 13:35 Urine Bilirubin Neg (Negative) 04/20/18 13:35 Urine Urobilinogen 2.0 mg/dL (<2.0) 04/20/18 13:35 Ur Leukocyte Esterase Tr (Negative) 04/20/18 13:35 Urine WBC (Auto) 2.0 /HPF (0.0-6.0) 04/20/18 13:35 Urine RBC (Auto) 1.0 /HPF (0.0-6.0) 04/20/18 13:35 U Epithel Cells (Auto) 2.0 /HPF (0-13.0) 04/18/18 16:45 Urine Bacteria (Auto) 2+ /HPF (Negative) 04/18/18 16:45 Urine Mucus Few /HPF 04/20/18 13:35 Blood Type O POSITIVE 04/19/18 13:05 Antibody Screen Negative 04/19/18 13:05 Crossmatch See Detail 04/19/18 13:05 Nutrition/Malnutrition Assess - Dietary Evaluation Nutrition/Malnutrition Findings: Nutrition Notes Start: 04/24/18 09:13 Freq: Status: Active Protocol: Document 04/24/18 09:13 TW (Rec: 04/24/18 10:46 TW [id number]) Co-Sign 04/24/18 09:13 RM Nutrition Notes Need for Assessment generated from: LOS Initial or Follow up Assessment Current Diagnosis COPD Sepsis Hypertension Other Pertinent Diagnosis Nicotine dependence, Hepatitis , Midline abdominal wound Current Diet NPO Labs/Tests Reviewed. Pertinent Medications Reviewed. Height 5 ft 1 in Weight 49.895 kg Jensen Body Weight (kg) 47.72 BMI 20.7 Subjective/Other Information Screened for LOS. Pt has been NPO since admission (X 6 days) and remains NPO due to S/P appendectomy. Pt stated that prior to NPO status at home, her appetite was good. She stated that she ate all of her meals prior to NPO status. Percent of energy/protein needs met: 0%/0% Burn Absent Trauma Absent #1 Nutrition Diagnosis Inadequate oral intake Etiology appendectomy As Evidenced by Signs and Symptoms NPO Is patient on ventilator? No Is Patient Ambulatory and/or Out of Bed No REE-([facility]-confined to bed) 1242.276 Calculation Used for Recommendations [facility] Additional Notes Protein needs: (1.5-2.0 g/kg) (75-100 g/day) Fluid needs: 1 ml/ kcal Nutrition Intervention Change Diet Order: Advance when medically feasible Add Supplement/Snack (indicate name/kcal Ensure Clear daily once diet /protein ) advanced Provides kCal: 240 Provides Protein (gm) 8 Goal #1 Diet advancement Anticipated Discharge Needs: unable to determine at this time Follow-Up By: 04/28/18 Additional Comments F/U for diet advancment
[2018-04-24] MEDS: KCL 10MEQ/100ML 10 MEQ/100 ML BAG IV SCH ×4 (15:29→22:15)
[2018-04-24] MEDS: APRESOLINE IV PRN (23:22)
[2018-04-25] MEDS: FLAGYL 500 MG/100 ML 500 MG/100 ML BAG IV SCH ×3 (06:00→22:01)
[2018-04-25] MEDS: ZOFRAN IV PRN ×2 (06:07→20:13)
[2018-04-25] MEDS: APRESOLINE IV PRN ×2 (06:08→20:56)
[2018-04-25] MEDS: NEURONTIN PO SCH ×2 (06:41→12:52)
[2018-04-25 07:40] LABS: Hematocrit 32.2 % (30.3-42.9); Hemoglobin 10.7 gm/dl (10.1-14.3); Mean Corpuscular HGB Conc 33 % (30-34); Mean Corpuscular Volume 85 fl (79-97); Platelet Count 211 K/mm3 (140-440); Red Cell Distribution Width 15.9 % (13.2-15.2)
[2018-04-25 07:59] LABS: Alanine Aminotransferase 15 units/L (7-56); Albumin 2.5 g/dL (3.9-5); BUN/Creatinine Ratio 25; Blood Urea Nitrogen 5 mg/dL (7-17); Calcium 7.4 mg/dL (8.4-10.2); Hemolysis Index 5
[2018-04-25] MEDS: DILAUDID IV PRN ×6 (08:42→20:55)
--- NOTE | 2018-04-25 08:43 | Progress Note ---
Assessment and Plan Pt c/o nausea. neg abd pain Abd non tender CT consistent with anastomotic leak. free fluid. this am pt was being taken to bathroom when drain accidentally pulled. discussed with IR will attempt to re-insert new Davol sump drain thru tract via CT guidance if not successful, will then need to re-explore to re-insert drain. reviewed Rx plan with pt Selected Entries 04/25/18 07:58 Temperature 98.1 F Pulse Rate 113 H Respiratory 18 Rate Blood Pressure 181/80 Laboratory Tests 04/25/18 04/25/18 06:28 06:28 WBC 7.5 Hgb 10.7 Hct 32.2 Sodium 138 Potassium 3.0 L Chloride 100.7 Carbon Dioxide 25 BUN 5 L Creatinine 0.2 L Objective Vital Signs - 12hr 04/24/18 04/24/18 04/24/18 22:00 23:22 23:25 Temperature Pulse Rate 92 H Pulse Rate [ 104 H Right Posterior Tibial] Respiratory 18 Rate Blood Pressure 170/82 O2 Sat by Pulse Oximetry 04/24/18 04/25/18 04/25/18 23:55 00:27 04:15 Temperature 99.3 F 99.0 F Pulse Rate 109 H 109 H Pulse Rate [ Right Posterior Tibial] Respiratory 18 18 18 Rate Blood Pressure 152/73 190/87 O2 Sat by Pulse 95 93 Oximetry 04/25/18 04/25/18 06:08 07:58 Temperature 98.1 F Pulse Rate 109 H 113 H Pulse Rate [ Right Posterior Tibial] Respiratory 18 Rate Blood Pressure 190/87 181/80 O2 Sat by Pulse 94 Oximetry - Labs 04/25/18 06:28 04/25/18 06:28 Diabetes panel 04/25/18 Range/Units 06:28 Sodium 138 (137-145) mmol/L Potassium 3.0 L (3.6-5.0) mmol/L Chloride 100.7 (98-107) mmol/L Carbon Dioxide 25 (22-30) mmol/L BUN 5 L (7-17) mg/dL Creatinine 0.2 L (0.7-1.2) mg/dL Glucose 108 H (65-100) mg/dL Calcium 7.4 L (8.4-10.2) mg/dL AST 22 (5-40) units/L ALT 15 (7-56) units/L Alkaline Phosphatase 61 (35-129) units/L Total Protein 4.6 L (6.3-8.2) g/dL Albumin 2.5 L (3.9-5) g/dL Calcium panel 04/25/18 Range/Units 06:28 Calcium 7.4 L (8.4-10.2) mg/dL Albumin 2.5 L (3.9-5) g/dL Pituitary panel 04/25/18 Range/Units 06:28 Sodium 138 (137-145) mmol/L Potassium 3.0 L (3.6-5.0) mmol/L Chloride 100.7 (98-107) mmol/L Carbon Dioxide 25 (22-30) mmol/L BUN 5 L (7-17) mg/dL Creatinine 0.2 L (0.7-1.2) mg/dL Glucose 108 H (65-100) mg/dL Calcium 7.4 L (8.4-10.2) mg/dL Adrenal panel 04/25/18 Range/Units 06:28 Sodium 138 (137-145) mmol/L Potassium 3.0 L (3.6-5.0) mmol/L Chloride 100.7 (98-107) mmol/L Carbon Dioxide 25 (22-30) mmol/L BUN 5 L (7-17) mg/dL Creatinine 0.2 L (0.7-1.2) mg/dL Glucose 108 H (65-100) mg/dL Calcium 7.4 L (8.4-10.2) mg/dL Total Bilirubin 0.40 (0.1-1.2) mg/dL AST 22 (5-40) units/L ALT 15 (7-56) units/L Alkaline Phosphatase 61 (35-129) units/L Total Protein 4.6 L (6.3-8.2) g/dL Albumin 2.5 L (3.9-5) g/dL
[2018-04-25 08:45] LABS: Band Neutrophils # (Manual) 1.3 K/mm3; Basophils % (Manual) 0 % (0.0-1.8); Eosinophils % (Manual) 0 % (0.0-4.3); Total Cells Counted 100
[2018-04-25 08:46] LABS: Anisocytosis 1+
--- NOTE | 2018-04-25 09:25 | Progress Note ---
Assessment and Plan Discussed with Dr Bhardwaj and Michelle nursing supervisor microwave. No CT techs or crew available for interventional procedures today. Will need to take pt back to [facility]. for re-exploration and drain re-insertion Objective Vital Signs - 12hr 04/24/18 04/24/18 04/24/18 22:00 23:22 23:25 Temperature Pulse Rate 92 H Pulse Rate [ 104 H Right Posterior Tibial] Respiratory 18 Rate Blood Pressure 170/82 O2 Sat by Pulse Oximetry 04/24/18 04/25/18 04/25/18 23:55 00:27 04:15 Temperature 99.3 F 99.0 F Pulse Rate 109 H 109 H Pulse Rate [ Right Posterior Tibial] Respiratory 18 18 18 Rate Blood Pressure 152/73 190/87 O2 Sat by Pulse 95 93 Oximetry 04/25/18 04/25/18 04/25/18 06:08 07:58 08:42 Temperature 98.1 F Pulse Rate 109 H 113 H Pulse Rate [ Right Posterior Tibial] Respiratory 18 18 Rate Blood Pressure 190/87 181/80 O2 Sat by Pulse 94 Oximetry - Labs 04/25/18 06:28 04/25/18 06:28 Diabetes panel 04/25/18 Range/Units 06:28 Sodium 138 (137-145) mmol/L Potassium 3.0 L (3.6-5.0) mmol/L Chloride 100.7 (98-107) mmol/L Carbon Dioxide 25 (22-30) mmol/L BUN 5 L (7-17) mg/dL Creatinine 0.2 L (0.7-1.2) mg/dL Glucose 108 H (65-100) mg/dL Calcium 7.4 L (8.4-10.2) mg/dL AST 22 (5-40) units/L ALT 15 (7-56) units/L Alkaline Phosphatase 61 (35-129) units/L Total Protein 4.6 L (6.3-8.2) g/dL Albumin 2.5 L (3.9-5) g/dL Calcium panel 04/25/18 Range/Units 06:28 Calcium 7.4 L (8.4-10.2) mg/dL Albumin 2.5 L (3.9-5) g/dL Pituitary panel 04/25/18 Range/Units 06:28 Sodium 138 (137-145) mmol/L Potassium 3.0 L (3.6-5.0) mmol/L Chloride 100.7 (98-107) mmol/L Carbon Dioxide 25 (22-30) mmol/L BUN 5 L (7-17) mg/dL Creatinine 0.2 L (0.7-1.2) mg/dL Glucose 108 H (65-100) mg/dL Calcium 7.4 L (8.4-10.2) mg/dL Adrenal panel 04/25/18 Range/Units 06:28 Sodium 138 (137-145) mmol/L Potassium 3.0 L (3.6-5.0) mmol/L Chloride 100.7 (98-107) mmol/L Carbon Dioxide 25 (22-30) mmol/L BUN 5 L (7-17) mg/dL Creatinine 0.2 L (0.7-1.2) mg/dL Glucose 108 H (65-100) mg/dL Calcium 7.4 L (8.4-10.2) mg/dL Total Bilirubin 0.40 (0.1-1.2) mg/dL AST 22 (5-40) units/L ALT 15 (7-56) units/L Alkaline Phosphatase 61 (35-129) units/L Total Protein 4.6 L (6.3-8.2) g/dL Albumin 2.5 L (3.9-5) g/dL
[2018-04-25] MEDS ORDERED: ZOFRAN IV PRN (10:42)
[2018-04-25] MEDS ORDERED: SUBLIMAZE IV PRN (10:42)
--- NOTE | 2018-04-25 10:42 | Anesthesia Day of Surgery ---
Anesthesia Day of Surgery - Day of Surgery Patient Examined: Yes Patient H&P Reviewed: Yes Patient is NPO: Yes
[2018-04-25] MEDS: PROVENTIL IH SCH ×3 (10:43→20:26)
[2018-04-25] MEDS ORDERED: DIPRIVAN 10 MG/ML IV ONE (10:47)
[2018-04-25] MEDS: VERSED IV NR ×3 (10:55→11:12)
[2018-04-25] MEDS ORDERED: LACTATED RINGERS 1,000 ML IV SCH (11:00)
[2018-04-25] MEDS ORDERED: QUELICIN ONE (11:19)
[2018-04-25] MEDS ORDERED: XYLOCAINE MPF 2% ONE (11:19)
[2018-04-25] MEDS ORDERED: ZEMURON IV ONE (11:19)
[2018-04-25] MEDS ORDERED: ROBINUL ONE (11:47)
[2018-04-25] MEDS ORDERED: BLOXIVERZ ONE (11:47)
[2018-04-25] MEDS ORDERED: ZOFRAN ONE (11:47)
[2018-04-25] MEDS: celeXA PO SCH (12:52)
[2018-04-25] MEDS: ROCEPHIN/NS 2 GM/100 ML 2 GM/100 ML BAG IV SCH (12:52)
[2018-04-25] MEDS: BUSPAR PO SCH (12:52)
[2018-04-25] MEDS: DIFLUCAN 200 MG/100 ML BAG IV SCH (12:52)
[2018-04-25] MEDS: PEPCID IV SCH ×2 (12:52→22:01)
[2018-04-25] MEDS: ZANAFLEX PO SCH (12:53)
[2018-04-25] MEDS: SODIUM CHLORIDE FLUSH SYRINGE 10 ML IV SCH (12:53)
[2018-04-25] MEDS ORDERED: DILAUDID ONE ×2 (13:03→13:25)
[2018-04-25] MEDS ORDERED: NACL 0.9% 1000 ML 1,000 ML ONE (13:06)
[2018-04-25] MEDS ORDERED: KCL 20 MEQ in LACTATED RINGERS 1,000 ML IV SCH (13:15)
--- NOTE | 2018-04-25 13:16 | Operative Report ---
PREOPERATIVE DIAGNOSIS: Rule out anastomotic leak and subsequent dislodgement of previously placed triple lumen sump drain. POSTOPERATIVE DIAGNOSES: Rule out anastomotic leak and subsequent dislodgement of previously placed triple lumen sump drain. PROCEDURE: Exploratory laparotomy, irrigation of intraabdominal cavity and reinsertion of triple lumen sump drain in the right lower quadrant. SURGEON: Stevan Shelton MD ANESTHESIA: General. ESTIMATED BLOOD LOSS: Minimal. DRAINS: The previously reinserted drain placed. COMPLICATIONS: No complications. PROCEDURE IN DETAIL: The patient was taken to the operating room, prepped and draped in usual sterile fashion. A midline manoj were removed and midline sutures were cut. Using digital pressure the incision was reopened. The abdomen was then irrigated copiously and dried. Aerobic and anaerobic cultures were taken of the greenish drainage in the right lower quadrant. Very slowly the bowel was dissected free from the undersurface of the peritoneum. A new triple lumen sump drain was then placed in through the previous insertion site and placed at the area of the right lower quadrant covering the lower colonic sulcus as well as the pelvic floor. Once again, the abdomen was irrigated copiously and dried. Checked for hemostasis and noted to be dry. Drain placement was once again inspected and noted to be in proper positioning. The drain was secured to the skin with silk sutures throughout. The drain was also secured to the cap itself with interrupted 2-0 silk sutures to hopefully prevent any recurrent dislodgement. The fascia was then closed with interrupted #1 Vicryl sutures. Three retention sutures were also placed. Subcutaneous tissues were irrigated and skin closed loosely with manoj. The skin was then also packed with Betadine soaked Telfa ludivina. Fluffs and pressure dressings applied. The patient tolerated the procedure well and left OR in stable condition. JOB# [id number] FP/NTS
[2018-04-25] MEDS ORDERED: SUBLIMAZE ONE (13:31)
[2018-04-25] MEDS ORDERED: NORMODYNE IV ONE ×2 (13:42→14:00)
--- NOTE | 2018-04-25 14:01 | Progress Note ---
Assessment and Plan Assessment and plan: Sepsis. Etiology secondary to gangrenous and perforated appendix causing intra- abdominal/pelvic abscess. Patient is status post exploratory laparotomy with appendectomy and evacuation of pelvic abscess. ID following. Continue antibiotics. Started on ice chips by Surgeon, Chronic hep C. Untreated. Outpatient follow-up. Hypertension. Continue antihypertensive medications. COPD. Compensated. Hypokalemia. Replete potassium. Recheck in am Hyponatremia. Resolved after Changing IV fluid to normal saline. Neurofibromatosis Tobacco abuse. Patient counseled on smoking cessation. Discussed with Surgeon History Interval history: Feels better, Minimal abd pain NG tube removed Hospitalist Physical - Physical exam Narrative exam: GEN: Not in acute distress, lying in bed HEENT: Normocephalic, atraumatic. NG tube in, Neck: supple, No JVD Lungs: Clear to auscultation bilaterally, no wheeze Heart:S1 and S2 regular, no murmurs, rubs or gallop, Abd:soft, mild tender, dressing over abdomen Ext: No edema, no clubbing or cyanosis Neuro: AAO x 3, moves all extremities, no focal neurological signs - Constitutional Vitals: Temp Pulse Resp BP Pulse Ox 99.0 F 96 H 16 181/83 96 04/25/18 10:50 04/25/18 13:42 04/25/18 10:50 04/25/18 13:42 04/25/18 10:50 General appearance: Present: no acute distress Results - Labs CBC & Chem 7: 04/26/18 05:45 04/26/18 05:45 Labs: Laboratory Last Values WBC 7.5 K/mm3 (4.5-11.0) 04/25/18 06:28 RBC 3.80 M/mm3 (3.65-5.03) 04/25/18 06:28 Hgb 10.7 gm/dl (10.1-14.3) 04/25/18 06:28 Hct 32.2 % (30.3-42.9) 04/25/18 06:28 MCV 85 fl (79-97) 04/25/18 06:28 MCH 28 pg (28-32) 04/25/18 06:28 MCHC 33 % (30-34) 04/25/18 06:28 RDW 15.9 % (13.2-15.2) H 04/25/18 06:28 Plt Count 211 K/mm3 (140-440) 04/25/18 06:28 Lymph % (Auto) 10.1 % (13.4-35.0) L 04/24/18 07:23 [place] % (Auto) 7.3 % (0.0-7.3) 04/24/18 07:23 Eos % (Auto) 0.4 % (0.0-4.3) 04/24/18 07:23 Baso % (Auto) 1.6 % (0.0-1.8) 04/24/18 07:23 Lymph # 0.8 K/mm3 (1.2-5.4) L 04/24/18 07:23 [place] # 0.6 K/mm3 (0.0-0.8) 04/24/18 07:23 Eos # 0.0 K/mm3 (0.0-0.4) 04/24/18 07:23 Baso # 0.1 K/mm3 (0.0-0.1) 04/24/18 07:23 Add Manual Diff Complete 04/25/18 06:28 Total Counted 100 04/25/18 06:28 Seg Neutrophils % 80.6 % (40.0-70.0) H 04/24/18 07:23 Seg Neuts % (Manual) 69.0 % (40.0-70.0) 04/25/18 06:28 Band Neutrophils % 17.0 % 04/25/18 06:28 Lymphocytes % (Manual) 9.0 % (13.4-35.0) L 04/25/18 06:28 Reactive Lymphs % (Man) 0 % 04/25/18 06:28 Monocytes % (Manual) 5.0 % (0.0-7.3) 04/25/18 06:28 Eosinophils % (Manual) 0 % (0.0-4.3) 04/25/18 06:28 Basophils % (Manual) 0 % (0.0-1.8) 04/25/18 06:28 Metamyelocytes % 0 % 04/25/18 06:28 Myelocytes % 0 % 04/25/18 06:28 Promyelocytes % 0 % 04/25/18 06:28 Blast Cells % 0 % 04/25/18 06:28 Nucleated RBC % Not Reportable 04/25/18 06:28 Seg Neutrophils # 6.5 K/mm3 (1.8-7.7) 04/24/18 07:23 Seg Neutrophils # Man 5.2 K/mm3 (1.8-7.7) 04/25/18 06:28 Band Neutrophils # 1.3 K/mm3 04/25/18 06:28 Lymphocytes # (Manual) 0.7 K/mm3 (1.2-5.4) L 04/25/18 06:28 Abs React Lymphs (Man) 0.0 K/mm3 04/25/18 06:28 Monocytes # (Manual) 0.4 K/mm3 (0.0-0.8) 04/25/18 06:28 Eosinophils # (Manual) 0.0 K/mm3 (0.0-0.4) 04/25/18 06:28 Basophils # (Manual) 0.0 K/mm3 (0.0-0.1) 04/25/18 06:28 Metamyelocytes # 0.0 K/mm3 04/25/18 06:28 Myelocytes # 0.0 K/mm3 04/25/18 06:28 Promyelocytes # 0.0 K/mm3 04/25/18 06:28 Blast Cells # 0.0 K/mm3 04/25/18 06:28 WBC Morphology Not Reportable 04/25/18 06:28 Hypersegmented Neuts Not Reportable 04/25/18 06:28 Hyposegmented Neuts Not Reportable 04/25/18 06:28 Hypogranular Neuts Not Reportable 04/25/18 06:28 Smudge Cells Not Reportable 04/25/18 06:28 Toxic Granulation Not Reportable 04/25/18 06:28 Toxic Vacuolation Not Reportable 04/25/18 06:28 Dohle Bodies Not Reportable 04/25/18 06:28 Pelger-Huet Anomaly Not Reportable 04/25/18 06:28 Nicole Rods Not Reportable 04/25/18 06:28 Platelet Estimate Appears normal 04/25/18 06:28 Clumped Platelets Not Reportable 04/25/18 06:28 Plt Clumps, EDTA Not Reportable 04/25/18 06:28 Large Platelets Not Reportable 04/25/18 06:28 Giant Platelets Not Reportable 04/25/18 06:28 Platelet Satelliting Not Reportable 04/25/18 06:28 Plt Morphology Comment Not Reportable 04/25/18 06:28 RBC Morphology Not Reportable 04/25/18 06:28 Dimorphic RBCs Not Reportable 04/25/18 06:28 Polychromasia Not Reportable 04/25/18 06:28 Hypochromasia Not Reportable 04/25/18 06:28 Poikilocytosis Not Reportable 04/25/18 06:28 Anisocytosis 1+ 04/25/18 06:28 Microcytosis Not Reportable 04/25/18 06:28 Macrocytosis Not Reportable 04/25/18 06:28 Spherocytes Not Reportable 04/25/18 06:28 Pappenheimer Bodies Not Reportable 04/25/18 06:28 Sickle Cells Not Reportable 04/25/18 06:28 Target Cells Not Reportable 04/25/18 06:28 Tear Drop Cells Not Reportable 04/25/18 06:28 Ovalocytes Not Reportable 04/25/18 06:28 Helmet Cells Not Reportable 04/25/18 06:28 [place] Bodies Not Reportable 04/25/18 06:28 [place] Rings Not Reportable 04/25/18 06:28 [place] Cells Not Reportable 04/25/18 06:28 Bite Cells Not Reportable 04/25/18 06:28 Crenated Cell Not Reportable 04/25/18 06:28 Elliptocytes Not Reportable 04/25/18 06:28 Acanthocytes (Spur) Not Reportable 04/25/18 06:28 Rouleaux Not Reportable 04/25/18 06:28 Hemoglobin C Crystals Not Reportable 04/25/18 06:28 Schistocytes Not Reportable 04/25/18 06:28 Malaria parasites Not Reportable 04/25/18 06:28 Hung Bodies Not Reportable 04/25/18 06:28 Hem Pathologist Commnt No 04/25/18 06:28 PT 15.3 Sec. (12.2-14.9) H 04/22/18 05:19 INR 1.17 (0.87-1.13) H 04/22/18 05:19 APTT 29.4 Sec. (24.2-36.6) 04/19/18 05:19 POC ABG pH 7.367 (7.35-7.45) 04/19/18 00:19 POC ABG pCO2 36.8 (35-45) 04/19/18 00:19 POC ABG pO2 84 (80-105) 04/19/18 00:19 POC ABG HCO3 21.1 04/19/18 00:19 POC ABG Total CO2 22 04/19/18 00:19 POC ABG O2 Sat 96 04/19/18 00:19 POC ABG Base Excess -4 04/19/18 00:19 VBG pH 7.439 (7.320-7.420) H 04/18/18 14:30 FiO2 32 % 04/19/18 00:19 Sodium 138 mmol/L (137-145) 04/25/18 06:28 Potassium 3.0 mmol/L (3.6-5.0) L 04/25/18 06:28 Chloride 100.7 mmol/L (98-107) 04/25/18 06:28 Carbon Dioxide 25 mmol/L (22-30) 04/25/18 06:28 Anion Gap 15 mmol/L 04/25/18 06:28 BUN 5 mg/dL (7-17) L 04/25/18 06:28 Creatinine 0.2 mg/dL (0.7-1.2) L 04/25/18 06:28 Estimated GFR > 60 ml/min 04/25/18 06:28 BUN/Creatinine Ratio 25 % 04/25/18 06:28 Glucose 108 mg/dL (65-100) H 04/25/18 06:28 Lactic Acid 0.90 mmol/L (0.7-2.0) 04/18/18 18:41 Calcium 7.4 mg/dL (8.4-10.2) L 04/25/18 06:28 Phosphorus 2.00 mg/dL (2.5-4.5) L 04/25/18 06:28 Magnesium 2.00 mg/dL (1.7-2.3) 04/25/18 06:28 Total Bilirubin 0.40 mg/dL (0.1-1.2) 04/25/18 06:28 AST 22 units/L (5-40) 04/25/18 06:28 ALT 15 units/L (7-56) 04/25/18 06:28 Alkaline Phosphatase 61 units/L (35-129) 04/25/18 06:28 Total Protein 4.6 g/dL (6.3-8.2) L 04/25/18 06:28 Albumin 2.5 g/dL (3.9-5) L 04/25/18 06:28 Albumin/Globulin Ratio 1.2 % 04/25/18 06:28 Urine Color Yellow (Yellow) 04/20/18 13:35 Urine Turbidity Clear (Clear) 04/20/18 13:35 Urine pH 5.0 (5.0-7.0) 04/20/18 13:35 Ur Specific [place] 1.011 (1.003-1.030) 04/20/18 13:35 Urine Protein <15 mg/dl mg/dL (Negative) 04/20/18 13:35 Urine Glucose (UA) Neg mg/dL (Negative) 04/20/18 13:35 Urine Ketones 20 mg/dL (Negative) 04/20/18 13:35 Urine Blood Sm (Negative) 04/20/18 13:35 Urine Nitrite Neg (Negative) 04/20/18 13:35 Urine Bilirubin Neg (Negative) 04/20/18 13:35 Urine Urobilinogen 2.0 mg/dL (<2.0) 04/20/18 13:35 Ur Leukocyte Esterase Tr (Negative) 04/20/18 13:35 Urine WBC (Auto) 2.0 /HPF (0.0-6.0) 04/20/18 13:35 Urine RBC (Auto) 1.0 /HPF (0.0-6.0) 04/20/18 13:35 U Epithel Cells (Auto) 2.0 /HPF (0-13.0) 04/18/18 16:45 Urine Bacteria (Auto) 2+ /HPF (Negative) 04/18/18 16:45 Urine Mucus Few /HPF 04/20/18 13:35 Blood Type O POSITIVE 04/19/18 13:05 Antibody Screen Negative 04/19/18 13:05 Crossmatch See Detail 04/19/18 13:05 Nutrition/Malnutrition Assess - Dietary Evaluation Nutrition/Malnutrition Findings: Nutrition Notes Start: 04/24/18 09:13 Freq: Status: Active Protocol: Document 04/24/18 09:13 TW (Rec: 04/24/18 10:46 TW [id number]) Co-Sign 04/24/18 09:13 RM Nutrition Notes Need for Assessment generated from: LOS Initial or Follow up Assessment Current Diagnosis COPD Sepsis Hypertension Other Pertinent Diagnosis Nicotine dependence, Hepatitis , Midline abdominal wound Current Diet NPO Labs/Tests Reviewed. Pertinent Medications Reviewed. Height 5 ft 1 in Weight 49.895 kg [place] Body Weight (kg) 47.72 BMI 20.7 Subjective/Other Information Screened for LOS. Pt has been NPO since admission (X 6 days) and remains NPO due to S/P appendectomy. Pt stated that prior to NPO status at home, her appetite was good. She stated that she ate all of her meals prior to NPO status. Percent of energy/protein needs met: 0%/0% Burn Absent Trauma Absent #1 Nutrition Diagnosis Inadequate oral intake Etiology appendectomy As Evidenced by Signs and Symptoms NPO Is patient on ventilator? No Is Patient Ambulatory and/or Out of Bed No REE-([facility]-confined to bed) 1242.276 Calculation Used for Recommendations [facility] Additional Notes Protein needs: (1.5-2.0 g/kg) (75-100 g/day) Fluid needs: 1 ml/ kcal Nutrition Intervention Change Diet Order: Advance when medically feasible Add Supplement/Snack (indicate name/kcal Ensure Clear daily once diet /protein ) advanced Provides kCal: 240 Provides Protein (gm) 8 Goal #1 Diet advancement Anticipated Discharge Needs: unable to determine at this time Follow-Up By: 04/28/18 Additional Comments F/U for diet advancment
--- NOTE | 2018-04-25 14:05 | Progress Note ---
Assessment and Plan Sepsis. Etiology secondary to gangrenous and perforated appendix causing intra- abdominal/pelvic abscess. status post exploratory laparotomy with appendectomy and evacuation of pelvic abscess. Intrabdominal sepsis/peritonitis Ruptured appendix with abdominal abscess Tobacco abuse disorder COPD Neurofibromatosis - continue supplemental oxygen to keep O2 sats > 90% - aspiration precautions - abdominal drain to suction - complete antibiotics course and adjust per ID - follow cultures and clinically for AB's de-escalation - IV fluids per surgeon - VTE prophylaxis - PT/OT/Mobility, OOB to chair daily - continue incentive spirometry - continue nicotine withdrawal precautions - Smoking cessation counselling was done at the bedside again today - Bronchodilators per protocol - Analgesia, pain management - NPO for now, serial abdominal exams ... re-evaluate in am & prn Subjective Date of service: 04/25/18 Principal diagnosis: Sepsis; Ex-lap appendectomy and evacuation of pelvic abscess; Peritonitis Interval history: Patient is seen today for: Sepsis; status post exploratory laparotomy with appendectomy and evacuation of pelvic abscess; Intrabdominal sepsis/peritonitis; Ruptured appendix with abdominal abscess Seen and examined at bedside; 24hour events reviewed; nursing and respiratory care staff consulted; no adverse overnight events reported to me; resting in bed; complains of abdominal pain; to OR today for abdominal drain re-insertion; No hematemesis; denies acute chest pains but remains on supplemental oxygen Objective Vital Signs - 12hr 04/25/18 04/25/18 04/25/18 04:15 06:08 07:58 Temperature 99.0 F 98.1 F Pulse Rate 109 H 109 H 113 H Respiratory 18 18 Rate Blood Pressure 190/87 190/87 181/80 O2 Sat by Pulse 93 94 Oximetry 04/25/18 04/25/18 04/25/18 08:42 09:12 10:50 Temperature 99.0 F Pulse Rate 107 H Respiratory 18 18 16 Rate Blood Pressure 164/81 O2 Sat by Pulse 96 Oximetry 04/25/18 04/25/18 04/25/18 13:07 13:10 13:15 Temperature 97.7 F Pulse Rate 97 H 95 H 96 H Respiratory 16 16 16 Rate Blood Pressure 168/89 182/91 177/90 O2 Sat by Pulse 97 95 100 Oximetry 04/25/18 04/25/18 04/25/18 13:30 13:42 13:45 Temperature Pulse Rate 97 H 96 H 77 Respiratory 16 14 Rate Blood Pressure 178/101 181/83 156/74 O2 Sat by Pulse 99 97 Oximetry 04/25/18 14:00 Temperature 97.9 F Pulse Rate 73 Respiratory 14 Rate Blood Pressure 155/72 O2 Sat by Pulse 97 Oximetry Constitutional: no acute distress, alert, other (chronically ill looking this middle aged CF, normocephalic) Eyes: non-icteric ENT: oropharynx moist, other (Mallampati 2) Neck: supple, no lymphadenopathy, no JVD Effort: mildly labored Ascultation: Bilateral: diminished breath sounds, rhonchi Percussion: Bilateral: not dull Cardiovascular: regular rate and rhythm Gastrointestinal: normoactive bowel sounds, soft, tender (bhargav-op site), non- distended, other (Drain in place with bloody effluent) Integumentary: other (poor turgor; ? neurofibromatous nodules over body) Extremities: no cyanosis, no edema, pink and warm, pulses normal Neurologic: normal mental status, non-focal exam, pupils equal and round, motor strength normal and Psychiatric: mood appropriate, anxious CBC and BMP: 04/26/18 05:45 04/26/18 05:45 ABG, PT/INR, D-dimer: ABG POC ABG pH 7.367 (7.35-7.45) 04/19/18 00:19 POC ABG pCO2 36.8 (35-45) 04/19/18 00:19 POC ABG pO2 84 (80-105) 04/19/18 00:19 POC ABG HCO3 21.1 04/19/18 00:19 POC ABG Total CO2 22 04/19/18 00:19 POC ABG O2 Sat 96 04/19/18 00:19 PT/INR, D-dimer PT 15.3 Sec. (12.2-14.9) H 04/22/18 05:19 INR 1.17 (0.87-1.13) H 04/22/18 05:19 Abnormal lab findings: Abnormal Labs 04/18/18 04/18/18 04/18/18 14:30 14:30 14:30 WBC 18.6 H RBC Hgb Hct RDW Lymph % (Auto) [place] % (Auto) Lymph # Seg Neutrophils % Seg Neuts % (Manual) 79.0 H Lymphocytes % (Manual) 4.0 L Seg Neutrophils # Man 14.7 H Lymphocytes # (Manual) 0.7 L PT 16.3 H INR 1.27 H VBG pH Sodium 121 L Potassium 3.0 L Chloride 78.0 L Carbon Dioxide BUN Creatinine 0.5 L Glucose 110 H Lactic Acid Calcium Phosphorus Magnesium Total Bilirubin 1.30 H AST 42 H Total Protein Albumin 3.1 L Crossmatch 04/18/18 04/18/18 04/18/18 14:30 14:30 23:59 WBC RBC Hgb Hct RDW 15.8 H Lymph % (Auto) [place] % (Auto) Lymph # Seg Neutrophils % Seg Neuts % (Manual) 78.0 H Lymphocytes % (Manual) 6.0 L Seg Neutrophils # Man Lymphocytes # (Manual) 0.5 L PT INR VBG pH 7.439 H Sodium Potassium Chloride Carbon Dioxide BUN Creatinine Glucose Lactic Acid 3.60 H* Calcium Phosphorus Magnesium Total Bilirubin AST Total Protein Albumin Crossmatch 04/18/18 04/19/18 04/19/18 23:59 05:19 05:19 WBC 15.0 H RBC Hgb Hct RDW 15.3 H Lymph % (Auto) [place] % (Auto) Lymph # Seg Neutrophils % Seg Neuts % (Manual) Lymphocytes % (Manual) 5.0 L Seg Neutrophils # Man 8.3 H Lymphocytes # (Manual) 0.8 L PT INR VBG pH Sodium 130 L D 133 L Potassium 3.5 L 3.3 L Chloride Carbon Dioxide 20 L D BUN Creatinine 0.5 L 0.6 L Glucose 140 H 115 H Lactic Acid Calcium 7.5 L 7.4 L Phosphorus Magnesium Total Bilirubin AST Total Protein 4.4 L D 4.1 L Albumin 2.0 L 1.9 L Crossmatch 04/19/18 04/19/18 04/20/18 05:19 13:05 05:18 WBC RBC Hgb Hct RDW Lymph % (Auto) [place] % (Auto) Lymph # Seg Neutrophils % Seg Neuts % (Manual) Lymphocytes % (Manual) Seg Neutrophils # Man Lymphocytes # (Manual) PT 19.4 H 17.4 H INR 1.59 H 1.38 H VBG pH Sodium Potassium Chloride Carbon Dioxide BUN Creatinine Glucose Lactic Acid Calcium Phosphorus Magnesium Total Bilirubin AST Total Protein Albumin Crossmatch See Detail 04/20/18 04/20/18 04/21/18 13:47 13:47 04:52 WBC RBC 3.29 L 3.10 L Hgb 9.6 L 8.8 L Hct 28.1 L D 26.6 L RDW 15.3 H 15.4 H Lymph % (Auto) 5.6 L [place] % (Auto) Lymph # 0.4 L Seg Neutrophils % 87.3 H Seg Neuts % (Manual) Lymphocytes % (Manual) Seg Neutrophils # Man Lymphocytes # (Manual) PT INR VBG pH Sodium Potassium Chloride Carbon Dioxide BUN Creatinine 0.3 L Glucose 102 H Lactic Acid Calcium 8.0 L Phosphorus Magnesium Total Bilirubin AST Total Protein Albumin Crossmatch 04/21/18 04/22/18 04/22/18 04:52 05:19 05:19 WBC RBC 3.64 L Hgb Hct RDW Lymph % (Auto) 8.5 L [place] % (Auto) 9.9 H Lymph # 0.6 L Seg Neutrophils % 81.0 H Seg Neuts % (Manual) Lymphocytes % (Manual) Seg Neutrophils # Man Lymphocytes # (Manual) PT 15.3 H INR 1.17 H VBG pH Sodium Potassium 3.2 L Chloride Carbon Dioxide BUN Creatinine 0.3 L Glucose Lactic Acid Calcium 7.6 L Phosphorus Magnesium Total Bilirubin AST Total Protein Albumin Crossmatch 04/22/18 04/24/18 04/24/18 05:19 07:19 07:19 WBC RBC Hgb Hct RDW Lymph % (Auto) [place] % (Auto) Lymph # Seg Neutrophils % Seg Neuts % (Manual) Lymphocytes % (Manual) Seg Neutrophils # Man Lymphocytes # (Manual) PT INR VBG pH Sodium Potassium 3.4 L 2.9 L* Chloride Carbon Dioxide BUN Creatinine 0.3 L 0.3 L Glucose 103 H Lactic Acid Calcium 7.7 L 7.5 L Phosphorus Magnesium 1.60 L Total Bilirubin AST Total Protein 4.3 L Albumin 2.2 L Crossmatch 04/24/18 04/25/18 04/25/18 07:23 06:28 06:28 WBC RBC Hgb Hct RDW 15.3 H 15.9 H Lymph % (Auto) 10.1 L [place] % (Auto) Lymph # 0.8 L Seg Neutrophils % 80.6 H Seg Neuts % (Manual) Lymphocytes % (Manual) 9.0 L Seg Neutrophils # Man Lymphocytes # (Manual) 0.7 L PT INR VBG pH Sodium Potassium 3.0 L Chloride Carbon Dioxide BUN 5 L Creatinine 0.2 L Glucose 108 H Lactic Acid Calcium 7.4 L Phosphorus Magnesium Total Bilirubin AST Total Protein 4.6 L Albumin 2.5 L Crossmatch 04/25/18 06:28 WBC RBC Hgb Hct RDW Lymph % (Auto) [place] % (Auto) Lymph # Seg Neutrophils % Seg Neuts % (Manual) Lymphocytes % (Manual) Seg Neutrophils # Man Lymphocytes # (Manual) PT INR VBG pH Sodium Potassium Chloride Carbon Dioxide BUN Creatinine Glucose Lactic Acid Calcium Phosphorus 2.00 L Magnesium Total Bilirubin AST Total Protein Albumin Crossmatch Chest x-ray: image reviewed Allied health notes reviewed: nursing
[2018-04-25] MEDS: KCL 10MEQ/100ML 10 MEQ/100 ML BAG IV SCH ×4 (15:37→19:31)
[2018-04-25] MEDS ORDERED: TPN ADULT 1,800 ML IV SCH (20:00)
[2018-04-25] MEDS ORDERED: TORADOL IV PRN (20:25)
[2018-04-26] MEDS: DILAUDID IV PRN ×6 (00:24→22:48)
[2018-04-26] MEDS: ZOFRAN IV PRN ×2 (00:33→05:54)
[2018-04-26] MEDS: APRESOLINE IV PRN ×2 (05:17→22:50)
[2018-04-26] MEDS: FLAGYL 500 MG/100 ML 500 MG/100 ML BAG IV SCH ×3 (05:53→22:49)
[2018-04-26 06:13] LABS: Hematocrit 36.2 % (30.3-42.9); Mean Corpuscular HGB Conc 33 % (30-34); Mean Corpuscular Volume 86 fl (79-97); Platelet Count 299 K/mm3 (140-440); Red Blood Count 4.22 M/mm3 (3.65-5.03); Red Cell Distribution Width 16.2 % (13.2-15.2)
[2018-04-26 06:22] LABS: BUN/Creatinine Ratio 25; Blood Urea Nitrogen 5 mg/dL (7-17); Calcium 7.7 mg/dL (8.4-10.2); Hemolysis Index 3
[2018-04-26] MEDS ORDERED: MAGNESIUM SULFATE 2GM/50ML 2 GM/50 ML BAG IV ONE (07:20)
[2018-04-26] MEDS ORDERED: SODIUM PHOSPHATE 30 MMOL in NACL 0.9% 500 ML 500 ML IV ONE (08:00)
[2018-04-26] MEDS: PROVENTIL IH SCH ×3 (08:29→20:30)
--- NOTE | 2018-04-26 09:02 | Progress Note ---
Assessment and Plan Assessment and plan: Sepsis. Etiology secondary to gangrenous and perforated appendix causing intra- abdominal/pelvic abscess. Patient is status post exploratory laparotomy with appendectomy and evacuation of pelvic abscess. ID following. Continue antibiotics. Perforated appendix s/p exploratory lap. She was started on ice chips however is now NPO after procedure yesterday. TPN ordered dislodged drain, s/p taken to OR , exploratory lap, irrigation of intraabd cavity and placement of sump drain yesterday 04/25 Chronic hep C. Untreated. Outpatient follow-up. Hypertension. Continue antihypertensive medications. COPD. Compensated. Hypokalemia. Replete potassium. Recheck in am Hyponatremia. Resolved after Changing IV fluid to normal saline. Neurofibromatosis Tobacco abuse. Patient counseled on smoking cessation. Discussed with Surgeon History Interval history: Feels better, Minimal abd pain Drain fell out so had surgery for replacement yesterday, 04/25 Hospitalist Physical - Physical exam Narrative exam: GEN: Not in acute distress, lying in bed HEENT: Normocephalic, atraumatic. NG tube in, Neck: supple, No JVD Lungs: Clear to auscultation bilaterally, no wheeze Heart:S1 and S2 regular, no murmurs, rubs or gallop, Abd:soft, mild tender, dressing over abdomen, drain in place Ext: No edema, no clubbing or cyanosis Neuro: AAO x 3, moves all extremities, no focal neurological signs - Constitutional Vitals: Temp Pulse Resp BP Pulse Ox 97.8 F 117 H 13 154/76 98 04/26/18 04:05 04/26/18 08:30 04/26/18 08:30 04/26/18 06:00 04/26/18 08:31 Results - Labs CBC & Chem 7: 04/26/18 05:45 04/26/18 05:45 Labs: Laboratory Last Values WBC 11.9 K/mm3 (4.5-11.0) H 04/26/18 05:45 RBC 4.22 M/mm3 (3.65-5.03) 04/26/18 05:45 Hgb 12.0 gm/dl (10.1-14.3) 04/26/18 05:45 Hct 36.2 % (30.3-42.9) 04/26/18 05:45 MCV 86 fl (79-97) 04/26/18 05:45 MCH 29 pg (28-32) 04/26/18 05:45 MCHC 33 % (30-34) 04/26/18 05:45 RDW 16.2 % (13.2-15.2) H 04/26/18 05:45 Plt Count 299 K/mm3 (140-440) 04/26/18 05:45 Lymph % (Auto) 10.1 % (13.4-35.0) L 04/24/18 07:23 [place] % (Auto) 7.3 % (0.0-7.3) 04/24/18 07:23 Eos % (Auto) 0.4 % (0.0-4.3) 04/24/18 07:23 Baso % (Auto) 1.6 % (0.0-1.8) 04/24/18 07:23 Lymph # 0.8 K/mm3 (1.2-5.4) L 04/24/18 07:23 [place] # 0.6 K/mm3 (0.0-0.8) 04/24/18 07:23 Eos # 0.0 K/mm3 (0.0-0.4) 04/24/18 07:23 Baso # 0.1 K/mm3 (0.0-0.1) 04/24/18 07:23 Add Manual Diff Complete 04/25/18 06:28 Total Counted 100 04/25/18 06:28 Seg Neutrophils % 80.6 % (40.0-70.0) H 04/24/18 07:23 Seg Neuts % (Manual) 69.0 % (40.0-70.0) 04/25/18 06:28 Band Neutrophils % 17.0 % 04/25/18 06:28 Lymphocytes % (Manual) 9.0 % (13.4-35.0) L 04/25/18 06:28 Reactive Lymphs % (Man) 0 % 04/25/18 06:28 Monocytes % (Manual) 5.0 % (0.0-7.3) 04/25/18 06:28 Eosinophils % (Manual) 0 % (0.0-4.3) 04/25/18 06:28 Basophils % (Manual) 0 % (0.0-1.8) 04/25/18 06:28 Metamyelocytes % 0 % 04/25/18 06:28 Myelocytes % 0 % 04/25/18 06:28 Promyelocytes % 0 % 04/25/18 06:28 Blast Cells % 0 % 04/25/18 06:28 Nucleated RBC % Not Reportable 04/25/18 06:28 Seg Neutrophils # 6.5 K/mm3 (1.8-7.7) 04/24/18 07:23 Seg Neutrophils # Man 5.2 K/mm3 (1.8-7.7) 04/25/18 06:28 Band Neutrophils # 1.3 K/mm3 04/25/18 06:28 Lymphocytes # (Manual) 0.7 K/mm3 (1.2-5.4) L 04/25/18 06:28 Abs React Lymphs (Man) 0.0 K/mm3 04/25/18 06:28 Monocytes # (Manual) 0.4 K/mm3 (0.0-0.8) 04/25/18 06:28 Eosinophils # (Manual) 0.0 K/mm3 (0.0-0.4) 04/25/18 06:28 Basophils # (Manual) 0.0 K/mm3 (0.0-0.1) 04/25/18 06:28 Metamyelocytes # 0.0 K/mm3 04/25/18 06:28 Myelocytes # 0.0 K/mm3 04/25/18 06:28 Promyelocytes # 0.0 K/mm3 04/25/18 06:28 Blast Cells # 0.0 K/mm3 04/25/18 06:28 WBC Morphology Not Reportable 04/25/18 06:28 Hypersegmented Neuts Not Reportable 04/25/18 06:28 Hyposegmented Neuts Not Reportable 04/25/18 06:28 Hypogranular Neuts Not Reportable 04/25/18 06:28 Smudge Cells Not Reportable 04/25/18 06:28 Toxic Granulation Not Reportable 04/25/18 06:28 Toxic Vacuolation Not Reportable 04/25/18 06:28 Dohle Bodies Not Reportable 04/25/18 06:28 Pelger-Huet Anomaly Not Reportable 04/25/18 06:28 Nicole Rods Not Reportable 04/25/18 06:28 Platelet Estimate Appears normal 04/25/18 06:28 Clumped Platelets Not Reportable 04/25/18 06:28 Plt Clumps, EDTA Not Reportable 04/25/18 06:28 Large Platelets Not Reportable 04/25/18 06:28 Giant Platelets Not Reportable 04/25/18 06:28 Platelet Satelliting Not Reportable 04/25/18 06:28 Plt Morphology Comment Not Reportable 04/25/18 06:28 RBC Morphology Not Reportable 04/25/18 06:28 Dimorphic RBCs Not Reportable 04/25/18 06:28 Polychromasia Not Reportable 04/25/18 06:28 Hypochromasia Not Reportable 04/25/18 06:28 Poikilocytosis Not Reportable 04/25/18 06:28 Anisocytosis 1+ 04/25/18 06:28 Microcytosis Not Reportable 04/25/18 06:28 Macrocytosis Not Reportable 04/25/18 06:28 Spherocytes Not Reportable 04/25/18 06:28 Pappenheimer Bodies Not Reportable 04/25/18 06:28 Sickle Cells Not Reportable 04/25/18 06:28 Target Cells Not Reportable 04/25/18 06:28 Tear Drop Cells Not Reportable 04/25/18 06:28 Ovalocytes Not Reportable 04/25/18 06:28 Helmet Cells Not Reportable 04/25/18 06:28 Spann-Corley Bodies Not Reportable 04/25/18 06:28 Platter Rings Not Reportable 04/25/18 06:28 Philip Cells Not Reportable 04/25/18 06:28 Bite Cells Not Reportable 04/25/18 06:28 Crenated Cell Not Reportable 04/25/18 06:28 Elliptocytes Not Reportable 04/25/18 06:28 Acanthocytes (Spur) Not Reportable 04/25/18 06:28 Rouleaux Not Reportable 04/25/18 06:28 Hemoglobin C Crystals Not Reportable 04/25/18 06:28 Schistocytes Not Reportable 04/25/18 06:28 Malaria parasites Not Reportable 04/25/18 06:28 Hung Bodies Not Reportable 04/25/18 06:28 Hem Pathologist Commnt No 04/25/18 06:28 PT 15.3 Sec. (12.2-14.9) H 04/22/18 05:19 INR 1.17 (0.87-1.13) H 04/22/18 05:19 APTT 29.4 Sec. (24.2-36.6) 04/19/18 05:19 POC ABG pH 7.367 (7.35-7.45) 04/19/18 00:19 POC ABG pCO2 36.8 (35-45) 04/19/18 00:19 POC ABG pO2 84 (80-105) 04/19/18 00:19 POC ABG HCO3 21.1 04/19/18 00:19 POC ABG Total CO2 22 04/19/18 00:19 POC ABG O2 Sat 96 04/19/18 00:19 POC ABG Base Excess -4 04/19/18 00:19 VBG pH 7.439 (7.320-7.420) H 04/18/18 14:30 FiO2 32 % 04/19/18 00:19 Sodium 138 mmol/L (137-145) 04/26/18 05:45 Potassium 4.0 mmol/L (3.6-5.0) D 04/26/18 05:45 Chloride 103.3 mmol/L (98-107) 04/26/18 05:45 Carbon Dioxide 24 mmol/L (22-30) 04/26/18 05:45 Anion Gap 15 mmol/L 04/26/18 05:45 BUN 5 mg/dL (7-17) L 04/26/18 05:45 Creatinine 0.2 mg/dL (0.7-1.2) L 04/26/18 05:45 Estimated GFR > 60 ml/min 04/26/18 05:45 BUN/Creatinine Ratio 25 % 04/26/18 05:45 Glucose 119 mg/dL (65-100) H 04/26/18 05:45 Lactic Acid 0.90 mmol/L (0.7-2.0) 04/18/18 18:41 Calcium 7.7 mg/dL (8.4-10.2) L 04/26/18 05:45 Phosphorus 2.20 mg/dL (2.5-4.5) L 04/26/18 05:45 Magnesium 1.70 mg/dL (1.7-2.3) 04/26/18 05:45 Total Bilirubin 0.40 mg/dL (0.1-1.2) 04/25/18 06:28 AST 22 units/L (5-40) 04/25/18 06:28 ALT 15 units/L (7-56) 04/25/18 06:28 Alkaline Phosphatase 61 units/L (35-129) 04/25/18 06:28 Total Protein 4.6 g/dL (6.3-8.2) L 04/25/18 06:28 Albumin 2.5 g/dL (3.9-5) L 04/25/18 06:28 Albumin/Globulin Ratio 1.2 % 04/25/18 06:28 Urine Color Yellow (Yellow) 04/20/18 13:35 Urine Turbidity Clear (Clear) 04/20/18 13:35 Urine pH 5.0 (5.0-7.0) 04/20/18 13:35 Ur Specific [place] 1.011 (1.003-1.030) 04/20/18 13:35 Urine Protein <15 mg/dl mg/dL (Negative) 04/20/18 13:35 Urine Glucose (UA) Neg mg/dL (Negative) 04/20/18 13:35 Urine Ketones 20 mg/dL (Negative) 04/20/18 13:35 Urine Blood Sm (Negative) 04/20/18 13:35 Urine Nitrite Neg (Negative) 04/20/18 13:35 Urine Bilirubin Neg (Negative) 04/20/18 13:35 Urine Urobilinogen 2.0 mg/dL (<2.0) 04/20/18 13:35 Ur Leukocyte Esterase Tr (Negative) 04/20/18 13:35 Urine WBC (Auto) 2.0 /HPF (0.0-6.0) 04/20/18 13:35 Urine RBC (Auto) 1.0 /HPF (0.0-6.0) 04/20/18 13:35 U Epithel Cells (Auto) 2.0 /HPF (0-13.0) 04/18/18 16:45 Urine Bacteria (Auto) 2+ /HPF (Negative) 04/18/18 16:45 Urine Mucus Few /HPF 04/20/18 13:35 Blood Type O POSITIVE 04/19/18 13:05 Antibody Screen Negative 04/19/18 13:05 Crossmatch See Detail 04/19/18 13:05 Nutrition/Malnutrition Assess - Dietary Evaluation Nutrition/Malnutrition Findings: Nutrition Notes Start: 04/24/18 09:13 Freq: Status: Active Protocol: Document 04/25/18 14:55 RM (Rec: 04/25/18 15:11 RM [id number]) Nutrition Notes Initial or Follow up Reassessment Current Diagnosis COPD Sepsis Hypertension Other Pertinent Diagnosis Nicotine dependence, Hepatitis , Midline abdominal wound Current Diet NPO Labs/Tests K 3, P 2 Pertinent Medications Reviewed. Height 5 ft 1 in Weight 49.895 kg [place] Body Weight (kg) 47.72 BMI 20.7 Subjective/Other Information Consulted for TPN intiation. Nurse confirmed TPN order. Drained dislodged this morning . Noted NS hanging in room but not infusing. Nurse stated that pt was receiving the NS today but pt was being prepped for drain replacement at time of visit. Burn Absent Trauma Absent #1 Nutrition Diagnosis Inadequate oral intake Diagnosis Progress(for reassessment Continues documentation) Is patient on ventilator? No Is Patient Ambulatory and/or Out of Bed No [facility] 1242.276 Calculation Used for Recommendations [facility] Additional Notes Protein needs: (1.5-2.0 g/kg) (75-100 g/day) Fluid needs: 1 ml/ kcal Nutrition Intervention Change Diet Order: Advance when medically feasible Nutrition Support: PPN at 75 ml/hr: 3.1% AA, 6% Dextrose, 100 mEq K, 150 mEq Na, 5 mEq Mg, 5 mEq Ca, 20 mmol P, Cl/Acetate: 50/50, MVI , Thiamine D/C IV fluids Kcal 560 Protein (gm) 55 Carbohydrates (gm) 100 Fluid (mL) 1,800 Goal #1 PPN to meet nutritional needs as best possible Anticipated Discharge Needs: unable to determine at this time Follow-Up By: 04/26/18 Additional Comments Follow for labs
[2018-04-26] MEDS: DIFLUCAN 200 MG/100 ML BAG IV SCH (09:16)
[2018-04-26] MEDS: LACTATED RINGERS 1,000 ML IV SCH ×2 (09:17→20:26)
[2018-04-26] MEDS: PEPCID IV SCH ×2 (09:17→22:49)
[2018-04-26] MEDS: ROCEPHIN/NS 2 GM/100 ML 2 GM/100 ML BAG IV SCH (09:57)
--- NOTE | 2018-04-26 10:27 | Progress Note ---
Assessment and Plan POD # 1 Pt awake and alert. c/o incisional pain otherwise no compl. minimal drainage from sump drain (less than 100 cc's) Abd soft. dressings dry surgically stable awaiting PICC line insertion and TPN Selected Entries 04/26/18 04/26/18 04/26/18 04:05 06:00 08:30 Temperature 97.8 F Pulse Rate [ 117 H Bilateral] Respiratory 13 Rate [Bilateral ] Blood Pressure 154/76 Laboratory Tests 04/25/18 04/26/18 04/26/18 06:28 05:45 05:45 WBC 7.5 11.9 H Hgb 10.7 12.0 Hct 32.2 36.2 Sodium 138 Potassium 4.0 D Chloride 103.3 Anion Gap 15 BUN 5 L Glucose 119 H Objective Vital Signs - 12hr 04/25/18 04/25/18 04/25/18 22:31 22:45 23:00 Temperature Pulse Rate 102 H 104 H 99 H Pulse Rate [ Bilateral] Pulse Rate [ From Monitor] Respiratory 15 18 17 Rate Respiratory Rate [Bilateral ] Blood Pressure 132/72 132/72 159/80 O2 Sat by Pulse 95 96 94 Oximetry 04/25/18 04/25/18 04/25/18 23:03 23:15 23:31 Temperature Pulse Rate 103 H 105 H 102 H Pulse Rate [ Bilateral] Pulse Rate [ From Monitor] Respiratory 18 19 18 Rate Respiratory Rate [Bilateral ] Blood Pressure 159/80 159/80 159/80 O2 Sat by Pulse 95 95 94 Oximetry 04/25/18 04/25/18 04/26/18 23:45 23:51 00:00 Temperature 96.9 F L Pulse Rate 107 H 103 H Pulse Rate [ Bilateral] Pulse Rate [ From Monitor] Respiratory 16 17 Rate Respiratory Rate [Bilateral ] Blood Pressure 159/80 164/83 O2 Sat by Pulse 95 95 Oximetry 04/26/18 04/26/18 04/26/18 00:15 00:19 00:31 Temperature Pulse Rate 104 H 106 H Pulse Rate [ Bilateral] Pulse Rate [ 100 H From Monitor] Respiratory 22 17 20 Rate Respiratory Rate [Bilateral ] Blood Pressure 164/83 164/83 O2 Sat by Pulse 94 95 Oximetry 04/26/18 04/26/18 04/26/18 00:45 01:00 01:15 Temperature Pulse Rate 97 H 96 H 93 H Pulse Rate [ Bilateral] Pulse Rate [ From Monitor] Respiratory 17 15 15 Rate Respiratory Rate [Bilateral ] Blood Pressure 161/76 160/74 160/74 O2 Sat by Pulse 94 95 95 Oximetry 04/26/18 04/26/18 04/26/18 01:31 01:45 02:00 Temperature Pulse Rate 96 H 104 H 101 H Pulse Rate [ Bilateral] Pulse Rate [ From Monitor] Respiratory 16 17 16 Rate Respiratory Rate [Bilateral ] Blood Pressure 160/74 160/74 174/84 O2 Sat by Pulse 95 95 94 Oximetry 04/26/18 04/26/18 04/26/18 02:15 02:31 02:45 Temperature Pulse Rate 93 H 101 H 105 H Pulse Rate [ Bilateral] Pulse Rate [ From Monitor] Respiratory 16 16 16 Rate Respiratory Rate [Bilateral ] Blood Pressure 174/84 174/84 174/84 O2 Sat by Pulse 96 95 95 Oximetry 04/26/18 04/26/18 04/26/18 03:00 03:15 03:31 Temperature Pulse Rate 108 H 103 H 101 H Pulse Rate [ Bilateral] Pulse Rate [ From Monitor] Respiratory 18 16 16 Rate Respiratory Rate [Bilateral ] Blood Pressure 179/87 179/87 179/87 O2 Sat by Pulse 95 94 96 Oximetry 04/26/18 04/26/18 04/26/18 03:45 04:00 04:05 Temperature 97.8 F Pulse Rate 98 H 93 H Pulse Rate [ Bilateral] Pulse Rate [ 97 H From Monitor] Respiratory 18 14 Rate Respiratory Rate [Bilateral ] Blood Pressure 179/87 166/81 O2 Sat by Pulse 94 96 Oximetry 04/26/18 04/26/18 04/26/18 04:15 04:31 04:45 Temperature Pulse Rate 94 H 94 H 93 H Pulse Rate [ Bilateral] Pulse Rate [ From Monitor] Respiratory 14 16 16 Rate Respiratory Rate [Bilateral ] Blood Pressure 166/81 166/81 166/81 O2 Sat by Pulse 96 96 96 Oximetry 04/26/18 04/26/18 04/26/18 05:00 05:15 05:17 Temperature Pulse Rate 107 H 103 H 100 H Pulse Rate [ Bilateral] Pulse Rate [ From Monitor] Respiratory 17 19 Rate Respiratory Rate [Bilateral ] Blood Pressure 179/91 179/91 179/91 O2 Sat by Pulse 95 94 Oximetry 04/26/18 04/26/18 04/26/18 05:31 05:45 06:00 Temperature Pulse Rate 121 H 115 H 116 H Pulse Rate [ Bilateral] Pulse Rate [ From Monitor] Respiratory 21 22 17 Rate Respiratory Rate [Bilateral ] Blood Pressure 179/92 179/92 154/76 O2 Sat by Pulse 95 95 94 Oximetry 04/26/18 04/26/18 04/26/18 08:00 08:30 08:31 Temperature Pulse Rate Pulse Rate [ 115 H 117 H Bilateral] Pulse Rate [ From Monitor] Respiratory Rate Respiratory 12 13 Rate [Bilateral ] Blood Pressure O2 Sat by Pulse 98 Oximetry - Labs 04/26/18 05:45 04/26/18 05:45 Diabetes panel 04/26/18 Range/Units 05:45 Sodium 138 (137-145) mmol/L Potassium 4.0 D (3.6-5.0) mmol/L Chloride 103.3 (98-107) mmol/L Carbon Dioxide 24 (22-30) mmol/L BUN 5 L (7-17) mg/dL Creatinine 0.2 L (0.7-1.2) mg/dL Glucose 119 H (65-100) mg/dL Calcium 7.7 L (8.4-10.2) mg/dL Calcium panel 04/25/18 04/26/18 Range/Units 06:28 05:45 Calcium 7.7 L (8.4-10.2) mg/dL Phosphorus 2.00 L 2.20 L (2.5-4.5) mg/dL Pituitary panel 04/26/18 Range/Units 05:45 Sodium 138 (137-145) mmol/L Potassium 4.0 D (3.6-5.0) mmol/L Chloride 103.3 (98-107) mmol/L Carbon Dioxide 24 (22-30) mmol/L BUN 5 L (7-17) mg/dL Creatinine 0.2 L (0.7-1.2) mg/dL Glucose 119 H (65-100) mg/dL Calcium 7.7 L (8.4-10.2) mg/dL Adrenal panel 04/26/18 Range/Units 05:45 Sodium 138 (137-145) mmol/L Potassium 4.0 D (3.6-5.0) mmol/L Chloride 103.3 (98-107) mmol/L Carbon Dioxide 24 (22-30) mmol/L BUN 5 L (7-17) mg/dL Creatinine 0.2 L (0.7-1.2) mg/dL Glucose 119 H (65-100) mg/dL Calcium 7.7 L (8.4-10.2) mg/dL
--- NOTE | 2018-04-26 14:56 | Progress Note ---
Assessment and Plan Sepsis. Etiology secondary to gangrenous and perforated appendix causing intra- abdominal/pelvic abscess. status post exploratory laparotomy with appendectomy and evacuation of pelvic abscess. Intrabdominal sepsis/peritonitis Ruptured appendix with abdominal abscess Tobacco abuse disorder COPD Neurofibromatosis - continue supplemental oxygen to keep O2 sats > 90% - continue aspiration precautions - abdominal drain to suction - complete antibiotics course and adjust per ID - follow cultures and clinically for AB's de-escalation - IV fluids per surgeon - VTE prophylaxis - PT/OT/Mobility, OOB to chair daily - continue incentive spirometry - continue nicotine withdrawal precautions - Smoking cessation counselling was done at the bedside again today - Bronchodilators per protocol - Analgesia, pain management - NPO for now, serial abdominal exams ... re-evaluate in am & prn Subjective Date of service: 04/26/18 Principal diagnosis: Sepsis; Ex-lap appendectomy and evacuation of pelvic abscess; Peritonitis Interval history: Patient is seen today for: Sepsis; status post exploratory laparotomy with appendectomy and evacuation of pelvic abscess; Intrabdominal sepsis/peritonitis; Ruptured appendix with abdominal abscess Seen and examined at bedside; 24hour events reviewed; nursing and respiratory care staff consulted; no adverse overnight events reported to me; resting in bed; abdominal drain effluent less bloody; remains on supplemental oxygebn; + nausea but no emesis so far Objective Vital Signs - 12hr 04/26/18 04/26/18 04/26/18 03:00 03:15 03:31 Temperature Pulse Rate 108 H 103 H 101 H Pulse Rate [ Bilateral] Pulse Rate [ From Monitor] Respiratory 18 16 16 Rate Respiratory Rate [Bilateral ] Blood Pressure 179/87 179/87 179/87 O2 Sat by Pulse 95 94 96 Oximetry 04/26/18 04/26/18 04/26/18 03:45 04:00 04:05 Temperature 97.8 F Pulse Rate 98 H 93 H Pulse Rate [ Bilateral] Pulse Rate [ 97 H From Monitor] Respiratory 18 14 Rate Respiratory Rate [Bilateral ] Blood Pressure 179/87 166/81 O2 Sat by Pulse 94 96 Oximetry 04/26/18 04/26/18 04/26/18 04:15 04:31 04:45 Temperature Pulse Rate 94 H 94 H 93 H Pulse Rate [ Bilateral] Pulse Rate [ From Monitor] Respiratory 14 16 16 Rate Respiratory Rate [Bilateral ] Blood Pressure 166/81 166/81 166/81 O2 Sat by Pulse 96 96 96 Oximetry 04/26/18 04/26/18 04/26/18 05:00 05:15 05:17 Temperature Pulse Rate 107 H 103 H 100 H Pulse Rate [ Bilateral] Pulse Rate [ From Monitor] Respiratory 17 19 Rate Respiratory Rate [Bilateral ] Blood Pressure 179/91 179/91 179/91 O2 Sat by Pulse 95 94 Oximetry 04/26/18 04/26/18 04/26/18 05:31 05:45 06:00 Temperature Pulse Rate 121 H 115 H 116 H Pulse Rate [ Bilateral] Pulse Rate [ From Monitor] Respiratory 21 22 17 Rate Respiratory Rate [Bilateral ] Blood Pressure 179/92 179/92 154/76 O2 Sat by Pulse 95 95 94 Oximetry 04/26/18 04/26/18 04/26/18 08:00 08:30 08:31 Temperature Pulse Rate Pulse Rate [ 115 H 117 H Bilateral] Pulse Rate [ From Monitor] Respiratory Rate Respiratory 12 13 Rate [Bilateral ] Blood Pressure O2 Sat by Pulse 98 Oximetry Constitutional: no acute distress, alert, other (chronically ill looking this middle aged CF, normocephalic) Eyes: non-icteric ENT: oropharynx moist, other (Mallampati 2) Neck: supple, no lymphadenopathy, no JVD Effort: mildly labored Ascultation: Bilateral: diminished breath sounds, rhonchi Percussion: Bilateral: not dull Cardiovascular: regular rate and rhythm Gastrointestinal: normoactive bowel sounds, soft, tender (bhargav-op site), non-distended, other (Drain in place with non-bloody effluent) Integumentary: other (poor turgor; ? neurofibromatous nodules over body) Extremities: no cyanosis, no edema, pink and warm, pulses normal Neurologic: normal mental status, non-focal exam, pupils equal and round, motor strength normal and Psychiatric: mood appropriate, anxious CBC and BMP: 04/28/18 06:00 04/28/18 06:00 ABG, PT/INR, D-dimer: ABG POC ABG pH 7.367 (7.35-7.45) 04/19/18 00:19 POC ABG pCO2 36.8 (35-45) 04/19/18 00:19 POC ABG pO2 84 (80-105) 04/19/18 00:19 POC ABG HCO3 21.1 04/19/18 00:19 POC ABG Total CO2 22 04/19/18 00:19 POC ABG O2 Sat 96 04/19/18 00:19 PT/INR, D-dimer PT 15.3 Sec. (12.2-14.9) H 04/22/18 05:19 INR 1.17 (0.87-1.13) H 04/22/18 05:19 Abnormal lab findings: Abnormal Labs 04/18/18 04/18/18 04/18/18 14:30 14:30 14:30 WBC 18.6 H RBC Hgb Hct RDW Lymph % (Auto) [place] % (Auto) Lymph # Seg Neutrophils % Seg Neuts % (Manual) 79.0 H Lymphocytes % (Manual) 4.0 L Seg Neutrophils # Man 14.7 H Lymphocytes # (Manual) 0.7 L PT 16.3 H INR 1.27 H VBG pH Sodium 121 L Potassium 3.0 L Chloride 78.0 L Carbon Dioxide BUN Creatinine 0.5 L Glucose 110 H Lactic Acid Calcium Phosphorus Magnesium Total Bilirubin 1.30 H AST 42 H Total Protein Albumin 3.1 L Crossmatch 04/18/18 04/18/18 04/18/18 14:30 14:30 23:59 WBC RBC Hgb Hct RDW 15.8 H Lymph % (Auto) [place] % (Auto) Lymph # Seg Neutrophils % Seg Neuts % (Manual) 78.0 H Lymphocytes % (Manual) 6.0 L Seg Neutrophils # Man Lymphocytes # (Manual) 0.5 L PT INR VBG pH 7.439 H Sodium Potassium Chloride Carbon Dioxide BUN Creatinine Glucose Lactic Acid 3.60 H* Calcium Phosphorus Magnesium Total Bilirubin AST Total Protein Albumin Crossmatch 04/18/18 04/19/18 04/19/18 23:59 05:19 05:19 WBC 15.0 H RBC Hgb Hct RDW 15.3 H Lymph % (Auto) [place] % (Auto) Lymph # Seg Neutrophils % Seg Neuts % (Manual) Lymphocytes % (Manual) 5.0 L Seg Neutrophils # Man 8.3 H Lymphocytes # (Manual) 0.8 L PT INR VBG pH Sodium 130 L D 133 L Potassium 3.5 L 3.3 L Chloride Carbon Dioxide 20 L D BUN Creatinine 0.5 L 0.6 L Glucose 140 H 115 H Lactic Acid Calcium 7.5 L 7.4 L Phosphorus Magnesium Total Bilirubin AST Total Protein 4.4 L D 4.1 L Albumin 2.0 L 1.9 L Crossmatch 04/19/18 04/19/18 04/20/18 05:19 13:05 05:18 WBC RBC Hgb Hct RDW Lymph % (Auto) [place] % (Auto) Lymph # Seg Neutrophils % Seg Neuts % (Manual) Lymphocytes % (Manual) Seg Neutrophils # Man Lymphocytes # (Manual) PT 19.4 H 17.4 H INR 1.59 H 1.38 H VBG pH Sodium Potassium Chloride Carbon Dioxide BUN Creatinine Glucose Lactic Acid Calcium Phosphorus Magnesium Total Bilirubin AST Total Protein Albumin Crossmatch See Detail 04/20/18 04/20/18 04/21/18 13:47 13:47 04:52 WBC RBC 3.29 L 3.10 L Hgb 9.6 L 8.8 L Hct 28.1 L D 26.6 L RDW 15.3 H 15.4 H Lymph % (Auto) 5.6 L [place] % (Auto) Lymph # 0.4 L Seg Neutrophils % 87.3 H Seg Neuts % (Manual) Lymphocytes % (Manual) Seg Neutrophils # Man Lymphocytes # (Manual) PT INR VBG pH Sodium Potassium Chloride Carbon Dioxide BUN Creatinine 0.3 L Glucose 102 H Lactic Acid Calcium 8.0 L Phosphorus Magnesium Total Bilirubin AST Total Protein Albumin Crossmatch 04/21/18 04/22/18 04/22/18 04:52 05:19 05:19 WBC RBC 3.64 L Hgb Hct RDW Lymph % (Auto) 8.5 L [place] % (Auto) 9.9 H Lymph # 0.6 L Seg Neutrophils % 81.0 H Seg Neuts % (Manual) Lymphocytes % (Manual) Seg Neutrophils # Man Lymphocytes # (Manual) PT 15.3 H INR 1.17 H VBG pH Sodium Potassium 3.2 L Chloride Carbon Dioxide BUN Creatinine 0.3 L Glucose Lactic Acid Calcium 7.6 L Phosphorus Magnesium Total Bilirubin AST Total Protein Albumin Crossmatch 04/22/18 04/24/18 04/24/18 05:19 07:19 07:19 WBC RBC Hgb Hct RDW Lymph % (Auto) [place] % (Auto) Lymph # Seg Neutrophils % Seg Neuts % (Manual) Lymphocytes % (Manual) Seg Neutrophils # Man Lymphocytes # (Manual) PT INR VBG pH Sodium Potassium 3.4 L 2.9 L* Chloride Carbon Dioxide BUN Creatinine 0.3 L 0.3 L Glucose 103 H Lactic Acid Calcium 7.7 L 7.5 L Phosphorus Magnesium 1.60 L Total Bilirubin AST Total Protein 4.3 L Albumin 2.2 L Crossmatch 04/24/18 04/25/18 04/25/18 07:23 06:28 06:28 WBC RBC Hgb Hct RDW 15.3 H 15.9 H Lymph % (Auto) 10.1 L [place] % (Auto) Lymph # 0.8 L Seg Neutrophils % 80.6 H Seg Neuts % (Manual) Lymphocytes % (Manual) 9.0 L Seg Neutrophils # Man Lymphocytes # (Manual) 0.7 L PT INR VBG pH Sodium Potassium 3.0 L Chloride Carbon Dioxide BUN 5 L Creatinine 0.2 L Glucose 108 H Lactic Acid Calcium 7.4 L Phosphorus Magnesium Total Bilirubin AST Total Protein 4.6 L Albumin 2.5 L Crossmatch 04/25/18 04/26/18 04/26/18 06:28 05:45 05:45 WBC 11.9 H RBC Hgb Hct RDW 16.2 H Lymph % (Auto) [place] % (Auto) Lymph # Seg Neutrophils % Seg Neuts % (Manual) Lymphocytes % (Manual) Seg Neutrophils # Man Lymphocytes # (Manual) PT INR VBG pH Sodium Potassium Chloride Carbon Dioxide BUN 5 L Creatinine 0.2 L Glucose 119 H Lactic Acid Calcium 7.7 L Phosphorus 2.00 L 2.20 L Magnesium Total Bilirubin AST Total Protein Albumin Crossmatch Allied health notes reviewed: nursing
[2018-04-27] MEDS: DILAUDID IV PRN ×6 (01:40→23:16)
[2018-04-27] MEDS: PROVENTIL IH PRN (05:16)
[2018-04-27 06:40] LABS: BUN/Creatinine Ratio 30; Blood Urea Nitrogen 6 mg/dL (7-17); Calcium 7.5 mg/dL (8.4-10.2); Hemolysis Index 2
[2018-04-27] MEDS: FLAGYL 500 MG/100 ML 500 MG/100 ML BAG IV SCH ×3 (06:43→21:23)
[2018-04-27] MEDS: PROVENTIL IH SCH ×4 (08:31→19:57)
[2018-04-27] MEDS: PEPCID IV SCH ×2 (09:08→21:28)
[2018-04-27] MEDS: DIFLUCAN 200 MG/100 ML BAG IV SCH (09:08)
[2018-04-27] MEDS: ROCEPHIN/NS 2 GM/100 ML 2 GM/100 ML BAG IV SCH (09:08)
--- NOTE | 2018-04-27 09:24 | Progress Note ---
Assessment and Plan Assessment and plan: Sepsis. Etiology secondary to gangrenous and perforated appendix causing intra- abdominal/pelvic abscess. Patient is status post exploratory laparotomy with appendectomy and evacuation of pelvic abscess. ID following. Continue antibiotics. Perforated appendix s/p exploratory lap. She was started on ice chips however is now NPO after procedure yesterday. TPN ordered dislodged drain, s/p taken to OR , exploratory lap, irrigation of intraabd cavity and placement of sump drain on 04/25 Chronic hep C. Untreated. Outpatient follow-up. Hypertension. Continue antihypertensive medications. COPD. Compensated. Hypokalemia. Replete potassium. Recheck in am Hyponatremia. Resolved after Changing IV fluid to normal saline. Neurofibromatosis Tobacco abuse. Patient counseled on smoking cessation. Discussed with Surgeon. Keep gold in, as per Surgeon History Interval history: Feels better, Minimal abd pain Drain fell out so had surgery for replacement 04/25 Hospitalist Physical - Physical exam Narrative exam: GEN: Not in acute distress, lying in bed HEENT: Normocephalic, atraumatic. NG tube in, Neck: supple, No JVD Lungs: Clear to auscultation bilaterally, no wheeze Heart:S1 and S2 regular, no murmurs, rubs or gallop, Abd:soft, mild tender, dressing over abdomen, drain in place Ext: No edema, no clubbing or cyanosis Neuro: AAO x 3, moves all extremities, no focal neurological signs - Constitutional Vitals: Temp Pulse Resp BP Pulse Ox 99.6 F 133 H 14 175/102 94 04/27/18 04:00 04/27/18 08:15 04/27/18 08:15 04/27/18 08:15 04/27/18 08:33 General appearance: Present: no acute distress Results - Labs CBC & Chem 7: 04/26/18 05:45 04/27/18 05:33 Labs: Laboratory Last Values WBC 11.9 K/mm3 (4.5-11.0) H 04/26/18 05:45 RBC 4.22 M/mm3 (3.65-5.03) 04/26/18 05:45 Hgb 12.0 gm/dl (10.1-14.3) 04/26/18 05:45 Hct 36.2 % (30.3-42.9) 04/26/18 05:45 MCV 86 fl (79-97) 04/26/18 05:45 MCH 29 pg (28-32) 04/26/18 05:45 MCHC 33 % (30-34) 04/26/18 05:45 RDW 16.2 % (13.2-15.2) H 04/26/18 05:45 Plt Count 299 K/mm3 (140-440) 04/26/18 05:45 Lymph % (Auto) 10.1 % (13.4-35.0) L 04/24/18 07:23 [place] % (Auto) 7.3 % (0.0-7.3) 04/24/18 07:23 Eos % (Auto) 0.4 % (0.0-4.3) 04/24/18 07:23 Baso % (Auto) 1.6 % (0.0-1.8) 04/24/18 07:23 Lymph # 0.8 K/mm3 (1.2-5.4) L 04/24/18 07:23 [place] # 0.6 K/mm3 (0.0-0.8) 04/24/18 07:23 Eos # 0.0 K/mm3 (0.0-0.4) 04/24/18 07:23 Baso # 0.1 K/mm3 (0.0-0.1) 04/24/18 07:23 Add Manual Diff Complete 04/25/18 06:28 Total Counted 100 04/25/18 06:28 Seg Neutrophils % 80.6 % (40.0-70.0) H 04/24/18 07:23 Seg Neuts % (Manual) 69.0 % (40.0-70.0) 04/25/18 06:28 Band Neutrophils % 17.0 % 04/25/18 06:28 Lymphocytes % (Manual) 9.0 % (13.4-35.0) L 04/25/18 06:28 Reactive Lymphs % (Man) 0 % 04/25/18 06:28 Monocytes % (Manual) 5.0 % (0.0-7.3) 04/25/18 06:28 Eosinophils % (Manual) 0 % (0.0-4.3) 04/25/18 06:28 Basophils % (Manual) 0 % (0.0-1.8) 04/25/18 06:28 Metamyelocytes % 0 % 04/25/18 06:28 Myelocytes % 0 % 04/25/18 06:28 Promyelocytes % 0 % 04/25/18 06:28 Blast Cells % 0 % 04/25/18 06:28 Nucleated RBC % Not Reportable 04/25/18 06:28 Seg Neutrophils # 6.5 K/mm3 (1.8-7.7) 04/24/18 07:23 Seg Neutrophils # Man 5.2 K/mm3 (1.8-7.7) 04/25/18 06:28 Band Neutrophils # 1.3 K/mm3 04/25/18 06:28 Lymphocytes # (Manual) 0.7 K/mm3 (1.2-5.4) L 04/25/18 06:28 Abs React Lymphs (Man) 0.0 K/mm3 04/25/18 06:28 Monocytes # (Manual) 0.4 K/mm3 (0.0-0.8) 04/25/18 06:28 Eosinophils # (Manual) 0.0 K/mm3 (0.0-0.4) 04/25/18 06:28 Basophils # (Manual) 0.0 K/mm3 (0.0-0.1) 04/25/18 06:28 Metamyelocytes # 0.0 K/mm3 04/25/18 06:28 Myelocytes # 0.0 K/mm3 04/25/18 06:28 Promyelocytes # 0.0 K/mm3 04/25/18 06:28 Blast Cells # 0.0 K/mm3 04/25/18 06:28 WBC Morphology Not Reportable 04/25/18 06:28 Hypersegmented Neuts Not Reportable 04/25/18 06:28 Hyposegmented Neuts Not Reportable 04/25/18 06:28 Hypogranular Neuts Not Reportable 04/25/18 06:28 Smudge Cells Not Reportable 04/25/18 06:28 Toxic Granulation Not Reportable 04/25/18 06:28 Toxic Vacuolation Not Reportable 04/25/18 06:28 Dohle Bodies Not Reportable 04/25/18 06:28 Pelger-Huet Anomaly Not Reportable 04/25/18 06:28 Nicole Rods Not Reportable 04/25/18 06:28 Platelet Estimate Appears normal 04/25/18 06:28 Clumped Platelets Not Reportable 04/25/18 06:28 Plt Clumps, EDTA Not Reportable 04/25/18 06:28 Large Platelets Not Reportable 04/25/18 06:28 Giant Platelets Not Reportable 04/25/18 06:28 Platelet Satelliting Not Reportable 04/25/18 06:28 Plt Morphology Comment Not Reportable 04/25/18 06:28 RBC Morphology Not Reportable 04/25/18 06:28 Dimorphic RBCs Not Reportable 04/25/18 06:28 Polychromasia Not Reportable 04/25/18 06:28 Hypochromasia Not Reportable 04/25/18 06:28 Poikilocytosis Not Reportable 04/25/18 06:28 Anisocytosis 1+ 04/25/18 06:28 Microcytosis Not Reportable 04/25/18 06:28 Macrocytosis Not Reportable 04/25/18 06:28 Spherocytes Not Reportable 04/25/18 06:28 Pappenheimer Bodies Not Reportable 04/25/18 06:28 Sickle Cells Not Reportable 04/25/18 06:28 Target Cells Not Reportable 04/25/18 06:28 Tear Drop Cells Not Reportable 04/25/18 06:28 Ovalocytes Not Reportable 04/25/18 06:28 Helmet Cells Not Reportable 04/25/18 06:28 Spann-Gobles Bodies Not Reportable 04/25/18 06:28 [place] Rings Not Reportable 04/25/18 06:28 [place] Cells Not Reportable 04/25/18 06:28 Bite Cells Not Reportable 04/25/18 06:28 Crenated Cell Not Reportable 04/25/18 06:28 Elliptocytes Not Reportable 04/25/18 06:28 Acanthocytes (Spur) Not Reportable 04/25/18 06:28 Rouleaux Not Reportable 04/25/18 06:28 Hemoglobin C Crystals Not Reportable 04/25/18 06:28 Schistocytes Not Reportable 04/25/18 06:28 Malaria parasites Not Reportable 04/25/18 06:28 Hung Bodies Not Reportable 04/25/18 06:28 Hem Pathologist Commnt No 04/25/18 06:28 PT 15.3 Sec. (12.2-14.9) H 04/22/18 05:19 INR 1.17 (0.87-1.13) H 04/22/18 05:19 APTT 29.4 Sec. (24.2-36.6) 04/19/18 05:19 POC ABG pH 7.367 (7.35-7.45) 04/19/18 00:19 POC ABG pCO2 36.8 (35-45) 04/19/18 00:19 POC ABG pO2 84 (80-105) 04/19/18 00:19 POC ABG HCO3 21.1 04/19/18 00:19 POC ABG Total CO2 22 04/19/18 00:19 POC ABG O2 Sat 96 04/19/18 00:19 POC ABG Base Excess -4 04/19/18 00:19 VBG pH 7.439 (7.320-7.420) H 04/18/18 14:30 FiO2 32 % 04/19/18 00:19 Sodium 139 mmol/L (137-145) 04/27/18 05:33 Potassium 3.4 mmol/L (3.6-5.0) L 04/27/18 05:33 Chloride 100.3 mmol/L (98-107) 04/27/18 05:33 Carbon Dioxide 23 mmol/L (22-30) 04/27/18 05:33 Anion Gap 19 mmol/L 04/27/18 05:33 BUN 6 mg/dL (7-17) L 04/27/18 05:33 Creatinine 0.2 mg/dL (0.7-1.2) L 04/27/18 05:33 Estimated GFR > 60 ml/min 04/27/18 05:33 BUN/Creatinine Ratio 30 % 04/27/18 05:33 Glucose 98 mg/dL (65-100) 04/27/18 05:33 Lactic Acid 0.90 mmol/L (0.7-2.0) 04/18/18 18:41 Calcium 7.5 mg/dL (8.4-10.2) L 04/27/18 05:33 Phosphorus 2.00 mg/dL (2.5-4.5) L 04/27/18 05:33 Magnesium 1.70 mg/dL (1.7-2.3) 04/27/18 05:33 Total Bilirubin 0.40 mg/dL (0.1-1.2) 04/25/18 06:28 AST 22 units/L (5-40) 04/25/18 06:28 ALT 15 units/L (7-56) 04/25/18 06:28 Alkaline Phosphatase 61 units/L (35-129) 04/25/18 06:28 Total Protein 4.6 g/dL (6.3-8.2) L 04/25/18 06:28 Albumin 2.5 g/dL (3.9-5) L 04/25/18 06:28 Albumin/Globulin Ratio 1.2 % 04/25/18 06:28 Urine Color Yellow (Yellow) 04/20/18 13:35 Urine Turbidity Clear (Clear) 04/20/18 13:35 Urine pH 5.0 (5.0-7.0) 04/20/18 13:35 Ur Specific [place] 1.011 (1.003-1.030) 04/20/18 13:35 Urine Protein <15 mg/dl mg/dL (Negative) 04/20/18 13:35 Urine Glucose (UA) Neg mg/dL (Negative) 04/20/18 13:35 Urine Ketones 20 mg/dL (Negative) 04/20/18 13:35 Urine Blood Sm (Negative) 04/20/18 13:35 Urine Nitrite Neg (Negative) 04/20/18 13:35 Urine Bilirubin Neg (Negative) 04/20/18 13:35 Urine Urobilinogen 2.0 mg/dL (<2.0) 04/20/18 13:35 Ur Leukocyte Esterase Tr (Negative) 04/20/18 13:35 Urine WBC (Auto) 2.0 /HPF (0.0-6.0) 04/20/18 13:35 Urine RBC (Auto) 1.0 /HPF (0.0-6.0) 04/20/18 13:35 U Epithel Cells (Auto) 2.0 /HPF (0-13.0) 04/18/18 16:45 Urine Bacteria (Auto) 2+ /HPF (Negative) 04/18/18 16:45 Urine Mucus Few /HPF 04/20/18 13:35 Blood Type O POSITIVE 04/19/18 13:05 Antibody Screen Negative 04/19/18 13:05 Crossmatch See Detail 04/19/18 13:05 Nutrition/Malnutrition Assess - Dietary Evaluation Nutrition/Malnutrition Findings: Nutrition Notes Start: 04/24/18 09:13 Freq: Status: Active Protocol: Document 04/26/18 13:18 RM (Rec: 04/26/18 13:22 RM [id number]) Nutrition Notes Initial or Follow up Reassessment Current Diagnosis COPD Sepsis Hypertension Other Pertinent Diagnosis Nicotine dependence, Hepatitis , Midline abdominal wound Current Diet NPO Labs/Tests K 4, P 2.2 Pertinent Medications Lacated Ringer's @ 125 ml/hr Height 5 ft 1 in Weight 49.895 kg [place] Body Weight (kg) 47.72 BMI 20.7 Subjective/Other Information TPN was not administered yesterday. Per nurse TPN was put on hold until PICC line is placed Friday. Burn Absent Trauma Absent #1 Nutrition Diagnosis Inadequate oral intake Diagnosis Progress(for reassessment Continues documentation) Is patient on ventilator? No Is Patient Ambulatory and/or Out of Bed No REE-([facility]-confined to bed) 1242.276 Calculation Used for Recommendations [facility] Additional Notes Protein needs: (1.5-2.0 g/kg) (75-100 g/day) Fluid needs: 1 ml/ kcal Nutrition Intervention Change Diet Order: Advance when medically feasible Goal #1 Initiate TPN Anticipated Discharge Needs: unable to determine at this time Follow-Up By: 04/27/18 Additional Comments Follow for PICC placement, labs
[2018-04-27] MEDS: ZOFRAN IV PRN ×2 (11:11→21:28)
--- NOTE | 2018-04-27 11:53 | XRay Report ---
AP CHEST: HISTORY: Right arm PICC placement A right arm PICC has been inserted which terminates at the cavoatrial junction. Small left pleural effusion and mild left basilar atelectasis has developed since 04/18/18. Trace right pleural effusion has also developed. No obvious infiltrate or pneumothorax. Heart size is normal. IMPRESSION: Right arm PICC as described. Small bilateral pleural effusions have developed.
--- NOTE | 2018-04-27 13:49 | Progress Note ---
Assessment and Plan POD # 2 Pt feeling well. c/o incisional pain. 400 cc from sump drain Abd soft. dressings dry PICC line inserted TPN pending OOB as tiffanie continue present care Selected Entries 04/27/18 04/27/18 04:00 08:15 Temperature 99.6 F Pulse Rate 133 H Respiratory 14 Rate Blood Pressure 175/102 Laboratory Tests 04/27/18 05:33 Sodium 139 Potassium 3.4 L Chloride 100.3 Anion Gap 19 BUN 6 L Objective Vital Signs - 12hr 04/27/18 04/27/18 04/27/18 02:00 02:15 02:31 Temperature Pulse Rate 134 H 124 H 137 H Pulse Rate [ Bilateral] Pulse Rate [ From Monitor] Respiratory 17 22 19 Rate Respiratory Rate [Bilateral ] Blood Pressure 169/83 169/83 169/83 O2 Sat by Pulse 93 93 93 Oximetry 04/27/18 04/27/18 04/27/18 02:45 03:00 03:15 Temperature Pulse Rate 132 H 133 H 132 H Pulse Rate [ Bilateral] Pulse Rate [ From Monitor] Respiratory 17 17 10 L Rate Respiratory Rate [Bilateral ] Blood Pressure 169/83 174/86 174/86 O2 Sat by Pulse 94 94 94 Oximetry 04/27/18 04/27/18 04/27/18 03:30 03:45 04:00 Temperature 99.6 F Pulse Rate 132 H 136 H 135 H Pulse Rate [ Bilateral] Pulse Rate [ 120 H From Monitor] Respiratory 13 18 14 Rate Respiratory Rate [Bilateral ] Blood Pressure 174/86 174/86 183/89 O2 Sat by Pulse 95 94 94 Oximetry 04/27/18 04/27/18 04/27/18 04:15 04:31 04:45 Temperature Pulse Rate 135 H 134 H 133 H Pulse Rate [ Bilateral] Pulse Rate [ From Monitor] Respiratory 18 14 13 Rate Respiratory Rate [Bilateral ] Blood Pressure 183/89 183/89 183/89 O2 Sat by Pulse 94 94 94 Oximetry 04/27/18 04/27/18 04/27/18 05:00 05:15 05:17 Temperature Pulse Rate 121 H 125 H Pulse Rate [ 133 H Bilateral] Pulse Rate [ From Monitor] Respiratory 17 22 Rate Respiratory 18 Rate [Bilateral ] Blood Pressure 181/83 181/83 O2 Sat by Pulse 94 95 Oximetry 04/27/18 04/27/18 04/27/18 05:31 05:45 06:00 Temperature Pulse Rate 140 H 139 H 137 H Pulse Rate [ Bilateral] Pulse Rate [ From Monitor] Respiratory 13 22 16 Rate Respiratory Rate [Bilateral ] Blood Pressure 183/89 183/89 168/85 O2 Sat by Pulse 94 93 93 Oximetry 04/27/18 04/27/18 04/27/18 06:15 06:31 06:45 Temperature Pulse Rate 136 H 133 H 133 H Pulse Rate [ Bilateral] Pulse Rate [ From Monitor] Respiratory 14 20 20 Rate Respiratory Rate [Bilateral ] Blood Pressure 168/85 168/85 168/85 O2 Sat by Pulse 93 93 92 Oximetry 04/27/18 04/27/18 04/27/18 07:00 07:15 07:31 Temperature Pulse Rate 129 H 125 H 127 H Pulse Rate [ Bilateral] Pulse Rate [ From Monitor] Respiratory 23 21 20 Rate Respiratory Rate [Bilateral ] Blood Pressure 173/76 173/76 173/76 O2 Sat by Pulse 90 90 89 Oximetry 04/27/18 04/27/18 04/27/18 07:45 08:01 08:15 Temperature Pulse Rate 135 H 140 H 133 H Pulse Rate [ Bilateral] Pulse Rate [ From Monitor] Respiratory 16 17 14 Rate Respiratory Rate [Bilateral ] Blood Pressure 168/85 175/102 175/102 O2 Sat by Pulse 91 91 93 Oximetry 04/27/18 08:33 Temperature Pulse Rate Pulse Rate [ Bilateral] Pulse Rate [ From Monitor] Respiratory Rate Respiratory Rate [Bilateral ] Blood Pressure O2 Sat by Pulse 94 Oximetry - Labs 04/26/18 05:45 04/27/18 05:33 Diabetes panel 04/27/18 Range/Units 05:33 Sodium 139 (137-145) mmol/L Potassium 3.4 L (3.6-5.0) mmol/L Chloride 100.3 (98-107) mmol/L Carbon Dioxide 23 (22-30) mmol/L BUN 6 L (7-17) mg/dL Creatinine 0.2 L (0.7-1.2) mg/dL Glucose 98 (65-100) mg/dL Calcium 7.5 L (8.4-10.2) mg/dL Calcium panel 04/27/18 Range/Units 05:33 Calcium 7.5 L (8.4-10.2) mg/dL Phosphorus 2.00 L (2.5-4.5) mg/dL Pituitary panel 04/27/18 Range/Units 05:33 Sodium 139 (137-145) mmol/L Potassium 3.4 L (3.6-5.0) mmol/L Chloride 100.3 (98-107) mmol/L Carbon Dioxide 23 (22-30) mmol/L BUN 6 L (7-17) mg/dL Creatinine 0.2 L (0.7-1.2) mg/dL Glucose 98 (65-100) mg/dL Calcium 7.5 L (8.4-10.2) mg/dL Adrenal panel 04/27/18 Range/Units 05:33 Sodium 139 (137-145) mmol/L Potassium 3.4 L (3.6-5.0) mmol/L Chloride 100.3 (98-107) mmol/L Carbon Dioxide 23 (22-30) mmol/L BUN 6 L (7-17) mg/dL Creatinine 0.2 L (0.7-1.2) mg/dL Glucose 98 (65-100) mg/dL Calcium 7.5 L (8.4-10.2) mg/dL
--- NOTE | 2018-04-27 18:29 | Progress Note ---
Assessment and Plan Cultures: 04/18/2018 blood cultures: no growth thus far 04/18/2018 urine culture: No growth 04/19/2018 intra-abdominal culture: E.Coli and Beta hemolytic Group C 04/25/2018 intra-abdominal culture: GNR A/P: 57-year-old female with hypertension, neurofibromatosis, hepatitis C, COPD, nicotine dependence admitted with: 1) Sepsis secondary to gangrenous and perforated appendix causing intra- abdominal/pelvic abscess: Status post exploratory laparotomy and evacuation of pelvic abscess, back to OR on 04/25/2018 for drain dislodgement. Clinically stable, no fevers. Continue current abx. Recs: - continue current abx: Ceftriaxone, Flagyl and Fluconazole - f/u OR cultures Will follow. Please call with questions. Teressa Spears MD [facility] C: [phone] O: [phone] F: [phone] Subjective Date of service: 04/27/18 Principal diagnosis: Sepsis; Ex-lap appendectomy and evacuation of pelvic abscess; Peritonitis Interval history: No fevers. Since last seen by us, she went back to the OR. tolerating current abx: ceftriaxone, flagyl and fluconazole. Planned for TPN. No gas or BM. Objective - Exam Narrative Exam: Physical Exam: Constitutional: Alert, cooperative. No acute distress Head, Ears, Nose: Normocephalic, atraumatic. External ears, nose normal Eyes: Conjunctivae/corneas clear. No icterus. No ptosis. Neck: Supple, no meningeal signs Oral: poor dentition, no thrush Cardiovascular: S1, S2 normal. Respiratory: Good air entry, clear to auscultation bilaterally GI: bowel sounds absent, drain + Musculoskeletal: No pedal edema, no cyanosis. Skin: No rash or abscess. Tattoos +, fibromas + Hem/Lymphatic: No palpable cervical or supraclavicular nodes. No lymphangitis Psych: Mood ok. Affect normal Neurological: Awake, alert, oriented. No gross abnormality - Constitutional Vitals: Vital Signs Temp Pulse Resp BP Pulse Ox 98.9 F 115 H 17 177/96 94 04/27/18 16:00 04/27/18 18:15 04/27/18 18:15 04/27/18 18:15 04/27/18 18:15 Temperature -Last 24 Hours Temperature 98.9 F Temperature 98.4 F Temperature 98.6 F Temperature 99.6 F Temperature 98.7 F Temperature 98.1 F - Labs CBC & Chem 7: 04/26/18 05:45 04/27/18 05:33 Labs: Abnormal lab results 04/27/18 Range/Units 05:33 Potassium 3.4 L (3.6-5.0) mmol/L BUN 6 L (7-17) mg/dL Creatinine 0.2 L (0.7-1.2) mg/dL Calcium 7.5 L (8.4-10.2) mg/dL Phosphorus 2.00 L (2.5-4.5) mg/dL
[2018-04-27] MEDS ORDERED: D5W/NS W/KCL 20MEQ 20 MEQ/1,000 ML BAG IV SCH (19:00)
[2018-04-27] MEDS ORDERED: TPN ADULT 1,800 ML IV SCH (20:00)
[2018-04-27] MEDS: APRESOLINE IV PRN (20:48)
[2018-04-28] MEDS: DILAUDID IV PRN ×6 (03:04→20:14)
[2018-04-28] MEDS: ZOFRAN IV PRN ×3 (05:06→18:40)
[2018-04-28] MEDS: FLAGYL 500 MG/100 ML 500 MG/100 ML BAG IV SCH ×3 (05:06→22:08)
[2018-04-28 06:54] LABS: Hematocrit 32.8 % (30.3-42.9); Hemoglobin 10.9 gm/dl (10.1-14.3); Mean Corpuscular HGB Conc 33 % (30-34); Mean Corpuscular Volume 85 fl (79-97); Platelet Count 331 K/mm3 (140-440); Red Blood Count 3.86 M/mm3 (3.65-5.03)
[2018-04-28 07:17] LABS: Alanine Aminotransferase 20 units/L (7-56); Albumin 2.1 g/dL (3.9-5); BUN/Creatinine Ratio 20; Blood Urea Nitrogen 4 mg/dL (7-17); Calcium 7.1 mg/dL (8.4-10.2); Hemolysis Index 5
[2018-04-28 08:46] LABS: Basophils % (Manual) 0 % (0.0-1.8); Eosinophils % (Manual) 0 % (0.0-4.3); Total Cells Counted 100
[2018-04-28 08:47] LABS: Anisocytosis 1+; Poikilocytosis 1+
[2018-04-28 08:48] LABS: Ovalocytes Few; Platelet Estimate Consistent w Auto
[2018-04-28] MEDS: ROCEPHIN/NS 2 GM/100 ML 2 GM/100 ML BAG IV SCH (09:36)
[2018-04-28] MEDS: PEPCID IV SCH ×2 (09:38→22:07)
[2018-04-28] MEDS: DIFLUCAN 200 MG/100 ML BAG IV SCH (09:38)
[2018-04-28] MEDS: PROVENTIL IH SCH ×3 (09:43→19:55)
--- NOTE | 2018-04-28 11:38 | Progress Note ---
Assessment and Plan POD # 3 Pt feeling well. Sump drain 200 c over last 12 hrs Abd soft. dressings dry stable may have popsicles & po meds OOB as tiffanie Chest PT continue present care Selected Entries 04/28/18 04/28/18 04/28/18 07:15 08:00 09:42 Temperature 98.2 F Pulse Rate 119 H O2 Sat by Pulse 93 Oximetry Laboratory Tests 04/26/18 04/28/18 04/28/18 05:45 06:00 06:00 WBC 11.2 H Hgb 12.0 10.9 Hct 36.2 32.8 Sodium 139 Potassium 3.1 L Chloride 101.5 Carbon Dioxide 29 BUN 4 L Creatinine 0.2 L Glucose 119 H Total Bilirubin 0.40 AST 26 ALT 20 Alkaline Phosphatase 73 Objective Vital Signs - 12hr 04/27/18 04/28/18 04/28/18 23:45 00:00 00:15 Temperature 97.2 F L Pulse Rate 110 H 113 H 113 H Pulse Rate [ 118 H From Monitor] Respiratory 19 24 22 Rate Blood Pressure 166/85 160/80 160/80 O2 Sat by Pulse 92 96 92 Oximetry 04/28/18 04/28/18 04/28/18 00:31 00:45 01:01 Temperature Pulse Rate 118 H 118 H 132 H Pulse Rate [ From Monitor] Respiratory 21 19 24 Rate Blood Pressure 160/80 160/80 172/82 O2 Sat by Pulse 91 92 91 Oximetry 04/28/18 04/28/18 04/28/18 01:15 01:31 01:45 Temperature Pulse Rate 126 H 129 H 124 H Pulse Rate [ From Monitor] Respiratory 23 22 22 Rate Blood Pressure 160/80 160/80 172/82 O2 Sat by Pulse 91 91 91 Oximetry 04/28/18 04/28/18 04/28/18 02:00 02:15 02:31 Temperature Pulse Rate 122 H 123 H 122 H Pulse Rate [ From Monitor] Respiratory 17 19 Rate Blood Pressure 171/90 171/90 171/90 O2 Sat by Pulse 91 90 90 Oximetry 04/28/18 04/28/18 04/28/18 02:45 03:00 03:15 Temperature Pulse Rate 126 H 122 H 115 H Pulse Rate [ From Monitor] Respiratory 15 22 12 Rate Blood Pressure 171/90 182/96 182/96 O2 Sat by Pulse 91 91 91 Oximetry 04/28/18 04/28/18 04/28/18 03:31 03:45 04:00 Temperature 99.4 F Pulse Rate 108 H 117 H 116 H Pulse Rate [ 122 H From Monitor] Respiratory 17 18 18 Rate Blood Pressure 182/96 182/96 184/95 O2 Sat by Pulse 91 91 91 Oximetry 04/28/18 04/28/18 04/28/18 04:15 04:31 04:45 Temperature Pulse Rate 124 H 123 H 119 H Pulse Rate [ From Monitor] Respiratory 17 21 17 Rate Blood Pressure 184/95 184/95 184/95 O2 Sat by Pulse 91 92 92 Oximetry 04/28/18 04/28/18 04/28/18 05:00 05:15 05:31 Temperature Pulse Rate 124 H 118 H 124 H Pulse Rate [ From Monitor] Respiratory 20 16 18 Rate Blood Pressure 185/97 185/97 185/97 O2 Sat by Pulse 91 91 92 Oximetry 04/28/18 04/28/18 04/28/18 05:45 06:00 06:15 Temperature Pulse Rate 124 H 121 H 122 H Pulse Rate [ From Monitor] Respiratory 20 21 20 Rate Blood Pressure 185/97 171/90 171/90 O2 Sat by Pulse 92 92 92 Oximetry 04/28/18 04/28/18 04/28/18 06:31 06:45 07:00 Temperature Pulse Rate 118 H 119 H 117 H Pulse Rate [ From Monitor] Respiratory 20 20 18 Rate Blood Pressure 171/90 171/90 173/94 O2 Sat by Pulse 94 92 93 Oximetry 04/28/18 04/28/18 04/28/18 07:15 08:00 09:42 Temperature 98.2 F Pulse Rate 119 H Pulse Rate [ From Monitor] Respiratory 14 Rate Blood Pressure 173/94 O2 Sat by Pulse 92 93 Oximetry - Labs 04/28/18 06:00 04/28/18 06:00 Diabetes panel 04/28/18 Range/Units 06:00 Sodium 139 (137-145) mmol/L Potassium 3.1 L (3.6-5.0) mmol/L Chloride 101.5 (98-107) mmol/L Carbon Dioxide 29 (22-30) mmol/L BUN 4 L (7-17) mg/dL Creatinine 0.2 L (0.7-1.2) mg/dL Glucose 119 H (65-100) mg/dL Calcium 7.1 L (8.4-10.2) mg/dL AST 26 (5-40) units/L ALT 20 (7-56) units/L Alkaline Phosphatase 73 (35-129) units/L Total Protein 4.3 L (6.3-8.2) g/dL Albumin 2.1 L (3.9-5) g/dL Calcium panel 04/28/18 Range/Units 06:00 Calcium 7.1 L (8.4-10.2) mg/dL Phosphorus 2.10 L (2.5-4.5) mg/dL Albumin 2.1 L (3.9-5) g/dL Pituitary panel 04/28/18 Range/Units 06:00 Sodium 139 (137-145) mmol/L Potassium 3.1 L (3.6-5.0) mmol/L Chloride 101.5 (98-107) mmol/L Carbon Dioxide 29 (22-30) mmol/L BUN 4 L (7-17) mg/dL Creatinine 0.2 L (0.7-1.2) mg/dL Glucose 119 H (65-100) mg/dL Calcium 7.1 L (8.4-10.2) mg/dL Adrenal panel 04/28/18 Range/Units 06:00 Sodium 139 (137-145) mmol/L Potassium 3.1 L (3.6-5.0) mmol/L Chloride 101.5 (98-107) mmol/L Carbon Dioxide 29 (22-30) mmol/L BUN 4 L (7-17) mg/dL Creatinine 0.2 L (0.7-1.2) mg/dL Glucose 119 H (65-100) mg/dL Calcium 7.1 L (8.4-10.2) mg/dL Total Bilirubin 0.40 (0.1-1.2) mg/dL AST 26 (5-40) units/L ALT 20 (7-56) units/L Alkaline Phosphatase 73 (35-129) units/L Total Protein 4.3 L (6.3-8.2) g/dL Albumin 2.1 L (3.9-5) g/dL
[2018-04-28] MEDS ORDERED: APRESOLINE ONE (12:55)
--- NOTE | 2018-04-28 13:37 | Progress Note ---
Assessment and Plan Assessment and plan: Sepsis. Etiology secondary to gangrenous and perforated appendix causing intra- abdominal/pelvic abscess. Patient is status post exploratory laparotomy with appendectomy and evacuation of pelvic abscess. ID following. Continue antibiotics. Perforated appendix s/p exploratory lap. TPN ordered dislodged drain, s/p taken to OR , exploratory lap, irrigation of intraabd cavity and placement of sump drain on 04/25 with 200 mL output yesterday may have popsicles & po meds per surgery OOB as tiffanie Chest PT Chronic hep C. Untreated. Outpatient follow-up. Hypertension. Continue antihypertensive medications. COPD. Compensated. Hypokalemia. Replete potassium. Hyponatremia. Change IV fluid to normal saline. Neurofibromatosis Tobacco abuse. Patient counseled on smoking cessation. History Interval history: The patient is a 57-year-old female with hypertension, neurofibromatosis, hepatitis C, COPD, nicotine dependence presented to the emergency room on 04/18/18 with complaints of abdominal pain going on for [address] scan obtained in the emergency room revealed a ruptured appendix with associated intra-abdominal abscess. General surgery was consulted and the patient underwent an emergent exploratory laparotomy with evacuation of pelvic abscess. She was noted to have a gangrenous, perforated appendix eroding including into the small bowel. As per the op note, the abscess could not be drained as the entire abscess and inflammatory process had trapped the small bowel, which was mobilized and she underwent an ileocolic anastomosis. The patient went back to the OR on 04/25/18 for drain dislodgment. Hospitalist Physical - Constitutional Vitals: Temp Pulse Resp BP Pulse Ox 98.4 F 109 H 19 199/97 95 04/28/18 12:00 04/28/18 12:58 04/28/18 12:00 04/28/18 12:58 04/28/18 12:00 General appearance: Present: no acute distress - EENT Eyes: Present: PERRL, EOM intact ENT: hearing intact, clear oral mucosa, dentition normal - Neck Neck: Present: supple, normal ROM - Respiratory Respiratory effort: normal Respiratory: bilateral: CTA - Cardiovascular Rhythm: regular Heart Sounds: Present: S1 & S2. Absent: gallop, rub - Extremities Extremities: no ischemia, No edema, Full ROM - Abdominal General gastrointestinal: soft, non-tender, non-distended, normal bowel sounds - Integumentary Integumentary: Present: clear, warm, dry - Neurologic Neurologic: CNII-XII intact, moves all extremities Results - Labs CBC & Chem 7: 04/28/18 06:00 04/28/18 06:00 Labs: Laboratory Last Values WBC 11.2 K/mm3 (4.5-11.0) H 04/28/18 06:00 RBC 3.86 M/mm3 (3.65-5.03) 04/28/18 06:00 Hgb 10.9 gm/dl (10.1-14.3) 04/28/18 06:00 Hct 32.8 % (30.3-42.9) 04/28/18 06:00 MCV 85 fl (79-97) 04/28/18 06:00 MCH 28 pg (28-32) 04/28/18 06:00 MCHC 33 % (30-34) 04/28/18 06:00 RDW 16.0 % (13.2-15.2) H 04/28/18 06:00 Plt Count 331 K/mm3 (140-440) 04/28/18 06:00 Lymph % (Auto) 10.1 % (13.4-35.0) L 04/24/18 07:23 [place] % (Auto) 7.3 % (0.0-7.3) 04/24/18 07:23 Eos % (Auto) 0.4 % (0.0-4.3) 04/24/18 07:23 Baso % (Auto) 1.6 % (0.0-1.8) 04/24/18 07:23 Lymph # 0.8 K/mm3 (1.2-5.4) L 04/24/18 07:23 [place] # 0.6 K/mm3 (0.0-0.8) 04/24/18 07:23 Eos # 0.0 K/mm3 (0.0-0.4) 04/24/18 07:23 Baso # 0.1 K/mm3 (0.0-0.1) 04/24/18 07:23 Add Manual Diff Complete 04/28/18 06:00 Total Counted 100 04/28/18 06:00 Seg Neutrophils % 80.6 % (40.0-70.0) H 04/24/18 07:23 Seg Neuts % (Manual) 92.0 % (40.0-70.0) H 04/28/18 06:00 Band Neutrophils % 0 % 04/28/18 06:00 Lymphocytes % (Manual) 5.0 % (13.4-35.0) L 04/28/18 06:00 Reactive Lymphs % (Man) 0 % 04/28/18 06:00 Monocytes % (Manual) 3.0 % (0.0-7.3) 04/28/18 06:00 Eosinophils % (Manual) 0 % (0.0-4.3) 04/28/18 06:00 Basophils % (Manual) 0 % (0.0-1.8) 04/28/18 06:00 Metamyelocytes % 0 % 04/28/18 06:00 Myelocytes % 0 % 04/28/18 06:00 Promyelocytes % 0 % 04/28/18 06:00 Blast Cells % 0 % 04/28/18 06:00 Nucleated RBC % Not Reportable 04/28/18 06:00 Seg Neutrophils # 6.5 K/mm3 (1.8-7.7) 04/24/18 07:23 Seg Neutrophils # Man 10.3 K/mm3 (1.8-7.7) H 04/28/18 06:00 Band Neutrophils # 0.0 K/mm3 04/28/18 06:00 Lymphocytes # (Manual) 0.6 K/mm3 (1.2-5.4) L 04/28/18 06:00 Abs React Lymphs (Man) 0.0 K/mm3 04/28/18 06:00 Monocytes # (Manual) 0.3 K/mm3 (0.0-0.8) 04/28/18 06:00 Eosinophils # (Manual) 0.0 K/mm3 (0.0-0.4) 04/28/18 06:00 Basophils # (Manual) 0.0 K/mm3 (0.0-0.1) 04/28/18 06:00 Metamyelocytes # 0.0 K/mm3 04/28/18 06:00 Myelocytes # 0.0 K/mm3 04/28/18 06:00 Promyelocytes # 0.0 K/mm3 04/28/18 06:00 Blast Cells # 0.0 K/mm3 04/28/18 06:00 WBC Morphology Not Reportable 04/28/18 06:00 Hypersegmented Neuts Not Reportable 04/28/18 06:00 Hyposegmented Neuts Not Reportable 04/28/18 06:00 Hypogranular Neuts Not Reportable 04/28/18 06:00 Smudge Cells Not Reportable 04/28/18 06:00 Toxic Granulation Not Reportable 04/28/18 06:00 Toxic Vacuolation Not Reportable 04/28/18 06:00 Dohle Bodies Not Reportable 04/28/18 06:00 Pelger-Huet Anomaly Not Reportable 04/28/18 06:00 Nicole Rods Not Reportable 04/28/18 06:00 Platelet Estimate Consistent w auto 04/28/18 06:00 Clumped Platelets Not Reportable 04/28/18 06:00 Plt Clumps, EDTA Not Reportable 04/28/18 06:00 Large Platelets Not Reportable 04/28/18 06:00 Giant Platelets Not Reportable 04/28/18 06:00 Platelet Satelliting Not Reportable 04/28/18 06:00 Plt Morphology Comment Not Reportable 04/28/18 06:00 RBC Morphology Not Reportable 04/28/18 06:00 Dimorphic RBCs Not Reportable 04/28/18 06:00 Polychromasia Rare 04/28/18 06:00 Hypochromasia Not Reportable 04/28/18 06:00 Poikilocytosis 1+ 04/28/18 06:00 Anisocytosis 1+ 04/28/18 06:00 Microcytosis Few 04/28/18 06:00 Macrocytosis Not Reportable 04/28/18 06:00 Spherocytes Not Reportable 04/28/18 06:00 Pappenheimer Bodies Not Reportable 04/28/18 06:00 Sickle Cells Not Reportable 04/28/18 06:00 Target Cells Not Reportable 04/28/18 06:00 Tear Drop Cells Not Reportable 04/28/18 06:00 Ovalocytes Few 04/28/18 06:00 Helmet Cells Not Reportable 04/28/18 06:00 [place] Bodies Not Reportable 04/28/18 06:00 [place] Rings Not Reportable 04/28/18 06:00 [place] Cells Not Reportable 04/28/18 06:00 Bite Cells Not Reportable 04/28/18 06:00 Crenated Cell Not Reportable 04/28/18 06:00 Elliptocytes Not Reportable 04/28/18 06:00 Acanthocytes (Spur) Not Reportable 04/28/18 06:00 Rouleaux Not Reportable 04/28/18 06:00 Hemoglobin C Crystals Not Reportable 04/28/18 06:00 Schistocytes Not Reportable 04/28/18 06:00 Malaria parasites Not Reportable 04/28/18 06:00 Hung Bodies Not Reportable 04/28/18 06:00 Hem Pathologist Commnt No 04/28/18 06:00 PT 15.3 Sec. (12.2-14.9) H 04/22/18 05:19 INR 1.17 (0.87-1.13) H 04/22/18 05:19 APTT 29.4 Sec. (24.2-36.6) 04/19/18 05:19 POC ABG pH 7.367 (7.35-7.45) 04/19/18 00:19 POC ABG pCO2 36.8 (35-45) 04/19/18 00:19 POC ABG pO2 84 (80-105) 04/19/18 00:19 POC ABG HCO3 21.1 04/19/18 00:19 POC ABG Total CO2 22 04/19/18 00:19 POC ABG O2 Sat 96 04/19/18 00:19 POC ABG Base Excess -4 04/19/18 00:19 VBG pH 7.439 (7.320-7.420) H 04/18/18 14:30 FiO2 32 % 04/19/18 00:19 Sodium 139 mmol/L (137-145) 04/28/18 06:00 Potassium 3.1 mmol/L (3.6-5.0) L 04/28/18 06:00 Chloride 101.5 mmol/L (98-107) 04/28/18 06:00 Carbon Dioxide 29 mmol/L (22-30) 04/28/18 06:00 Anion Gap 12 mmol/L 04/28/18 06:00 BUN 4 mg/dL (7-17) L 04/28/18 06:00 Creatinine 0.2 mg/dL (0.7-1.2) L 04/28/18 06:00 Estimated GFR > 60 ml/min 04/28/18 06:00 BUN/Creatinine Ratio 20 % 04/28/18 06:00 Glucose 119 mg/dL (65-100) H 04/28/18 06:00 Lactic Acid 0.90 mmol/L (0.7-2.0) 04/18/18 18:41 Calcium 7.1 mg/dL (8.4-10.2) L 04/28/18 06:00 Phosphorus 2.10 mg/dL (2.5-4.5) L 04/28/18 06:00 Magnesium 1.50 mg/dL (1.7-2.3) L 04/28/18 06:00 Total Bilirubin 0.40 mg/dL (0.1-1.2) 04/28/18 06:00 AST 26 units/L (5-40) 04/28/18 06:00 ALT 20 units/L (7-56) 04/28/18 06:00 Alkaline Phosphatase 73 units/L (35-129) 04/28/18 06:00 Total Protein 4.3 g/dL (6.3-8.2) L 04/28/18 06:00 Albumin 2.1 g/dL (3.9-5) L 04/28/18 06:00 Albumin/Globulin Ratio 1.0 % 04/28/18 06:00 Urine Color Yellow (Yellow) 04/20/18 13:35 Urine Turbidity Clear (Clear) 04/20/18 13:35 Urine pH 5.0 (5.0-7.0) 04/20/18 13:35 Ur Specific [place] 1.011 (1.003-1.030) 04/20/18 13:35 Urine Protein <15 mg/dl mg/dL (Negative) 04/20/18 13:35 Urine Glucose (UA) Neg mg/dL (Negative) 04/20/18 13:35 Urine Ketones 20 mg/dL (Negative) 04/20/18 13:35 Urine Blood Sm (Negative) 04/20/18 13:35 Urine Nitrite Neg (Negative) 04/20/18 13:35 Urine Bilirubin Neg (Negative) 04/20/18 13:35 Urine Urobilinogen 2.0 mg/dL (<2.0) 04/20/18 13:35 Ur Leukocyte Esterase Tr (Negative) 04/20/18 13:35 Urine WBC (Auto) 2.0 /HPF (0.0-6.0) 04/20/18 13:35 Urine RBC (Auto) 1.0 /HPF (0.0-6.0) 04/20/18 13:35 U Epithel Cells (Auto) 2.0 /HPF (0-13.0) 04/18/18 16:45 Urine Bacteria (Auto) 2+ /HPF (Negative) 04/18/18 16:45 Urine Mucus Few /HPF 04/20/18 13:35 Blood Type O POSITIVE 04/19/18 13:05 Antibody Screen Negative 04/19/18 13:05 Crossmatch See Detail 04/19/18 13:05 Nutrition/Malnutrition Assess - Dietary Evaluation Nutrition/Malnutrition Findings: Nutrition Notes Start: 04/24/18 09:13 Freq: Status: Active Protocol: Document 04/27/18 13:52 RM (Rec: 04/27/18 13:55 RM [id number]) Nutrition Notes Initial or Follow up Reassessment Current Diagnosis COPD Sepsis Hypertension Other Pertinent Diagnosis Nicotine dependence, Hepatitis , Midline abdominal wound Current Diet NPO Labs/Tests K 3.4, P 2 Pertinent Medications Lacated Ringer's @ 125 ml/hr Height 5 ft 1 in Weight 49.895 kg [place] Body Weight (kg) 47.72 BMI 20.7 Subjective/Other Information PICC placed today. Burn Absent Trauma Absent #1 Nutrition Diagnosis Inadequate oral intake Diagnosis Progress(for reassessment Continues documentation) Is patient on ventilator? No Is Patient Ambulatory and/or Out of Bed No REE-([facility]-confined to bed) 1242.397 Calculation Used for Recommendations [facility] Additional Notes Protein needs: (1.5-2.0 g/kg) (75-100 g/day) Fluid needs: 1 ml/ kcal Nutrition Intervention Change Diet Order: Advance when medically feasible Nutrition Support: CPN at 75 ml/hr: 4.2% AA, 6% Dextrose, 80 mEq K, 150 mEq Na , 5 mEq Mg, 5 mEq Ca, 30 mmol P, Cl/Acetate: 50/50, MVI, Thiamine Kcal 640 Protein (gm) 75 Carbohydrates (gm) 100 Fluid (mL) 1,800 Goal #1 CPN to meet nutritional needs as best possible Anticipated Discharge Needs: unable to determine at this time Follow-Up By: 04/28/18 Additional Comments Follow for labs
--- NOTE | 2018-04-28 15:18 | Progress Note ---
Assessment and Plan Cultures: 04/18/2018 blood cultures: no growth thus far 04/18/2018 urine culture: No growth 04/19/2018 intra-abdominal culture: E.Coli and Beta hemolytic Group C 04/25/2018 intra-abdominal culture: E.coli and Katerine albicans A/P: 57-year-old female with hypertension, neurofibromatosis, hepatitis C, COPD, nicotine dependence admitted with: 1) Sepsis secondary to gangrenous and perforated appendix causing intra- abdominal/pelvic abscess: Status post exploratory laparotomy and evacuation of pelvic abscess, back to OR on 04/25/2018 for drain dislodgement. Clinically stable, no fevers. Continue current abx, based on culture growth of E.coli and Katerine albicans. Recs: - continue current abx: Ceftriaxone, Flagyl and Fluconazole Will follow. Please call with questions. Teressa Spears MD [facility] C: [phone] O: [phone] F: [phone] Subjective Date of service: 04/28/18 Principal diagnosis: Sepsis; Ex-lap appendectomy and evacuation of pelvic abscess; Peritonitis Interval history: No new complaints. No fever. clinically stable. No gas, no BM. Objective - Exam Narrative Exam: Physical Exam: Constitutional: Alert, cooperative. No acute distress Head, Ears, Nose: Normocephalic, atraumatic. External ears, nose normal Eyes: Conjunctivae/corneas clear. No icterus. No ptosis. Neck: Supple, no meningeal signs Oral: poor dentition, no thrush Cardiovascular: S1, S2 normal. Respiratory: Good air entry, clear to auscultation bilaterally GI: bowel sounds hypoactive, drain + Musculoskeletal: No pedal edema, no cyanosis. Skin: No rash or abscess. Tattoos + Hem/Lymphatic: No palpable cervical or supraclavicular nodes. No lymphangitis Psych: Mood ok. Affect normal Neurological: Awake, alert, oriented. No gross abnormality - Constitutional Vitals: Vital Signs Temp Pulse Resp BP Pulse Ox 98.4 F 109 H 19 199/97 95 04/28/18 12:00 04/28/18 12:58 04/28/18 12:00 04/28/18 12:58 04/28/18 12:00 Temperature -Last 24 Hours Temperature 98.3 F Temperature 98.4 F Temperature 98.2 F Temperature 99.4 F Temperature 97.2 F Temperature 98.7 F Temperature 98.9 F - Labs CBC & Chem 7: 04/28/18 06:00 04/28/18 06:00 Labs: Abnormal lab results 04/28/18 04/28/18 Range/Units 06:00 06:00 WBC 11.2 H (4.5-11.0) K/mm3 RDW 16.0 H (13.2-15.2) % Seg Neuts % (Manual) 92.0 H (40.0-70.0) % Lymphocytes % (Manual) 5.0 L (13.4-35.0) % Seg Neutrophils # Man 10.3 H (1.8-7.7) K/mm3 Lymphocytes # (Manual) 0.6 L (1.2-5.4) K/mm3 Potassium 3.1 L (3.6-5.0) mmol/L BUN 4 L (7-17) mg/dL Creatinine 0.2 L (0.7-1.2) mg/dL Glucose 119 H (65-100) mg/dL Calcium 7.1 L (8.4-10.2) mg/dL Phosphorus 2.10 L (2.5-4.5) mg/dL Magnesium 1.50 L (1.7-2.3) mg/dL Total Protein 4.3 L (6.3-8.2) g/dL Albumin 2.1 L (3.9-5) g/dL
--- NOTE | 2018-04-28 19:32 | Progress Note ---
Assessment and Plan Sepsis. Etiology secondary to gangrenous and perforated appendix causing intra- abdominal/pelvic abscess. status post exploratory laparotomy with appendectomy and evacuation of pelvic abscess. Intrabdominal sepsis/peritonitis Ruptured appendix with abdominal abscess Tobacco abuse disorder COPD Neurofibromatosis - continue supplemental oxygen to keep O2 sats > 90% - advance diet per surgeon - continue aspiration precautions - abdominal drain to suction - complete antibiotics course and adjust per ID - follow cultures and clinically for AB's de-escalation - IV fluids per surgeon - VTE prophylaxis - PT/OT/Mobility, OOB to chair daily - continue incentive spirometry - continue nicotine withdrawal precautions - Smoking cessation counselling was done at the bedside again today - Bronchodilators per protocol - Analgesia, pain management - NPO for now, serial abdominal exams ... re-evaluate in am & prn Subjective Date of service: 04/28/18 Principal diagnosis: Sepsis; Ex-lap appendectomy and evacuation of pelvic abscess; Peritonitis Interval history: Patient is seen today for: Sepsis; status post exploratory laparotomy with appendectomy and evacuation of pelvic abscess; Intrabdominal sepsis/peritonitis; Ruptured appendix with abdominal abscess Seen and examined at bedside; 24hour events reviewed; nursing and respiratory care staff consulted; no adverse overnight events reported to me; resting in bed; doing better; remains on supplemental oxygen; tentatively to transfer out of [facility] soon; No hemoptysis; no acute chest pains Objective Vital Signs - 12hr 04/28/18 04/28/18 04/28/18 08:00 09:00 09:42 Temperature 98.2 F Pulse Rate 101 H 124 H Pulse Rate [ 109 H From Monitor] Respiratory 19 21 Rate Blood Pressure 176/88 183/90 O2 Sat by Pulse 91 93 93 Oximetry 04/28/18 04/28/18 04/28/18 10:00 11:00 12:00 Temperature 98.3 F Pulse Rate 114 H 106 H 113 H Pulse Rate [ 107 H From Monitor] Respiratory 17 15 18 Rate Blood Pressure 182/100 185/89 199/97 O2 Sat by Pulse 92 92 93 Oximetry 04/28/18 04/28/18 04/28/18 12:58 13:00 14:01 Temperature Pulse Rate 109 H 109 H 127 H Pulse Rate [ From Monitor] Respiratory 15 22 Rate Blood Pressure 199/97 213/96 165/91 O2 Sat by Pulse 93 91 Oximetry 04/28/18 04/28/18 04/28/18 15:00 16:00 17:00 Temperature 98.5 F Pulse Rate 112 H 123 H 115 H Pulse Rate [ 103 H From Monitor] Respiratory 20 19 16 Rate Blood Pressure 155/84 169/89 148/73 O2 Sat by Pulse 90 92 89 Oximetry Constitutional: no acute distress, alert, other (chronically ill looking this middle aged CF, normocephalic) Eyes: non-icteric ENT: oropharynx moist, other (Mallampati 2) Neck: supple, no lymphadenopathy, no JVD Effort: mildly labored Ascultation: Bilateral: diminished breath sounds, rhonchi Percussion: Bilateral: not dull Cardiovascular: regular rate and rhythm Gastrointestinal: normoactive bowel sounds, soft, tender (bhargav-op site), non- distended, other (Drain in place with non-bloody effluent) Integumentary: other (poor turgor; ? neurofibromatous nodules over body) Extremities: no cyanosis, no edema, pink and warm, pulses normal Neurologic: normal mental status, non-focal exam, pupils equal and round, motor strength normal and Psychiatric: mood appropriate, anxious CBC and BMP: 04/29/18 05:18 04/29/18 05:18 ABG, PT/INR, D-dimer: ABG POC ABG pH 7.367 (7.35-7.45) 04/19/18 00:19 POC ABG pCO2 36.8 (35-45) 04/19/18 00:19 POC ABG pO2 84 (80-105) 04/19/18 00:19 POC ABG HCO3 21.1 04/19/18 00:19 POC ABG Total CO2 22 04/19/18 00:19 POC ABG O2 Sat 96 04/19/18 00:19 PT/INR, D-dimer PT 15.3 Sec. (12.2-14.9) H 04/22/18 05:19 INR 1.17 (0.87-1.13) H 04/22/18 05:19 Abnormal lab findings: Abnormal Labs 04/18/18 04/18/18 04/18/18 14:30 14:30 14:30 WBC 18.6 H RBC Hgb Hct RDW Lymph % (Auto) [place] % (Auto) Lymph # Seg Neutrophils % Seg Neuts % (Manual) 79.0 H Lymphocytes % (Manual) 4.0 L Seg Neutrophils # Man 14.7 H Lymphocytes # (Manual) 0.7 L PT 16.3 H INR 1.27 H VBG pH Sodium 121 L Potassium 3.0 L Chloride 78.0 L Carbon Dioxide BUN Creatinine 0.5 L Glucose 110 H Lactic Acid Calcium Phosphorus Magnesium Total Bilirubin 1.30 H AST 42 H Total Protein Albumin 3.1 L Crossmatch 04/18/18 04/18/18 04/18/18 14:30 14:30 23:59 WBC RBC Hgb Hct RDW 15.8 H Lymph % (Auto) [place] % (Auto) Lymph # Seg Neutrophils % Seg Neuts % (Manual) 78.0 H Lymphocytes % (Manual) 6.0 L Seg Neutrophils # Man Lymphocytes # (Manual) 0.5 L PT INR VBG pH 7.439 H Sodium Potassium Chloride Carbon Dioxide BUN Creatinine Glucose Lactic Acid 3.60 H* Calcium Phosphorus Magnesium Total Bilirubin AST Total Protein Albumin Crossmatch 04/18/18 04/19/18 04/19/18 23:59 05:19 05:19 WBC 15.0 H RBC Hgb Hct RDW 15.3 H Lymph % (Auto) [place] % (Auto) Lymph # Seg Neutrophils % Seg Neuts % (Manual) Lymphocytes % (Manual) 5.0 L Seg Neutrophils # Man 8.3 H Lymphocytes # (Manual) 0.8 L PT INR VBG pH Sodium 130 L D 133 L Potassium 3.5 L 3.3 L Chloride Carbon Dioxide 20 L D BUN Creatinine 0.5 L 0.6 L Glucose 140 H 115 H Lactic Acid Calcium 7.5 L 7.4 L Phosphorus Magnesium Total Bilirubin AST Total Protein 4.4 L D 4.1 L Albumin 2.0 L 1.9 L Crossmatch 04/19/18 04/19/18 04/20/18 05:19 13:05 05:18 WBC RBC Hgb Hct RDW Lymph % (Auto) [place] % (Auto) Lymph # Seg Neutrophils % Seg Neuts % (Manual) Lymphocytes % (Manual) Seg Neutrophils # Man Lymphocytes # (Manual) PT 19.4 H 17.4 H INR 1.59 H 1.38 H VBG pH Sodium Potassium Chloride Carbon Dioxide BUN Creatinine Glucose Lactic Acid Calcium Phosphorus Magnesium Total Bilirubin AST Total Protein Albumin Crossmatch See Detail 04/20/18 04/20/18 04/21/18 13:47 13:47 04:52 WBC RBC 3.29 L 3.10 L Hgb 9.6 L 8.8 L Hct 28.1 L D 26.6 L RDW 15.3 H 15.4 H Lymph % (Auto) 5.6 L [place] % (Auto) Lymph # 0.4 L Seg Neutrophils % 87.3 H Seg Neuts % (Manual) Lymphocytes % (Manual) Seg Neutrophils # Man Lymphocytes # (Manual) PT INR VBG pH Sodium Potassium Chloride Carbon Dioxide BUN Creatinine 0.3 L Glucose 102 H Lactic Acid Calcium 8.0 L Phosphorus Magnesium Total Bilirubin AST Total Protein Albumin Crossmatch 04/21/18 04/22/18 04/22/18 04:52 05:19 05:19 WBC RBC 3.64 L Hgb Hct RDW Lymph % (Auto) 8.5 L [place] % (Auto) 9.9 H Lymph # 0.6 L Seg Neutrophils % 81.0 H Seg Neuts % (Manual) Lymphocytes % (Manual) Seg Neutrophils # Man Lymphocytes # (Manual) PT 15.3 H INR 1.17 H VBG pH Sodium Potassium 3.2 L Chloride Carbon Dioxide BUN Creatinine 0.3 L Glucose Lactic Acid Calcium 7.6 L Phosphorus Magnesium Total Bilirubin AST Total Protein Albumin Crossmatch 04/22/18 04/24/18 04/24/18 05:19 07:19 07:19 WBC RBC Hgb Hct RDW Lymph % (Auto) [place] % (Auto) Lymph # Seg Neutrophils % Seg Neuts % (Manual) Lymphocytes % (Manual) Seg Neutrophils # Man Lymphocytes # (Manual) PT INR VBG pH Sodium Potassium 3.4 L 2.9 L* Chloride Carbon Dioxide BUN Creatinine 0.3 L 0.3 L Glucose 103 H Lactic Acid Calcium 7.7 L 7.5 L Phosphorus Magnesium 1.60 L Total Bilirubin AST Total Protein 4.3 L Albumin 2.2 L Crossmatch 04/24/18 04/25/18 04/25/18 07:23 06:28 06:28 WBC RBC Hgb Hct RDW 15.3 H 15.9 H Lymph % (Auto) 10.1 L [place] % (Auto) Lymph # 0.8 L Seg Neutrophils % 80.6 H Seg Neuts % (Manual) Lymphocytes % (Manual) 9.0 L Seg Neutrophils # Man Lymphocytes # (Manual) 0.7 L PT INR VBG pH Sodium Potassium 3.0 L Chloride Carbon Dioxide BUN 5 L Creatinine 0.2 L Glucose 108 H Lactic Acid Calcium 7.4 L Phosphorus Magnesium Total Bilirubin AST Total Protein 4.6 L Albumin 2.5 L Crossmatch 04/25/18 04/26/18 04/26/18 06:28 05:45 05:45 WBC 11.9 H RBC Hgb Hct RDW 16.2 H Lymph % (Auto) [place] % (Auto) Lymph # Seg Neutrophils % Seg Neuts % (Manual) Lymphocytes % (Manual) Seg Neutrophils # Man Lymphocytes # (Manual) PT INR VBG pH Sodium Potassium Chloride Carbon Dioxide BUN 5 L Creatinine 0.2 L Glucose 119 H Lactic Acid Calcium 7.7 L Phosphorus 2.00 L 2.20 L Magnesium Total Bilirubin AST Total Protein Albumin Crossmatch 04/27/18 04/28/18 04/28/18 05:33 06:00 06:00 WBC 11.2 H RBC Hgb Hct RDW 16.0 H Lymph % (Auto) [place] % (Auto) Lymph # Seg Neutrophils % Seg Neuts % (Manual) 92.0 H Lymphocytes % (Manual) 5.0 L Seg Neutrophils # Man 10.3 H Lymphocytes # (Manual) 0.6 L PT INR VBG pH Sodium Potassium 3.4 L 3.1 L Chloride Carbon Dioxide BUN 6 L 4 L Creatinine 0.2 L 0.2 L Glucose 119 H Lactic Acid Calcium 7.5 L 7.1 L Phosphorus 2.00 L 2.10 L Magnesium 1.50 L Total Bilirubin AST Total Protein 4.3 L Albumin 2.1 L Crossmatch Allied health notes reviewed: nursing
[2018-04-28] MEDS ORDERED: TPN ADULT 1,800 ML IV SCH (20:00)
[2018-04-29] MEDS: DILAUDID IV PRN ×8 (00:08→23:24)
[2018-04-29] MEDS: APRESOLINE IV PRN ×2 (03:29→17:11)
[2018-04-29 05:39] LABS: Hematocrit 33.6 % (30.3-42.9); Mean Corpuscular HGB Conc 33 % (30-34); Mean Corpuscular Volume 86 fl (79-97); Platelet Count 341 K/mm3 (140-440); Red Blood Count 3.93 M/mm3 (3.65-5.03)
[2018-04-29] MEDS: ZOFRAN IV PRN ×2 (05:49→22:47)
[2018-04-29] MEDS: FLAGYL 500 MG/100 ML 500 MG/100 ML BAG IV SCH ×3 (05:50→22:44)
[2018-04-29 05:59] LABS: BUN/Creatinine Ratio 45; Blood Urea Nitrogen 9 mg/dL (7-17); Calcium 7.5 mg/dL (8.4-10.2); Hemolysis Index 6
[2018-04-29 06:27] LABS: Anisocytosis 1+; Band Neutrophils # (Manual) 0.1 K/mm3; Basophils % (Manual) 0 % (0.0-1.8); Burr Cells Few; Eosinophils % (Manual) 0 % (0.0-4.3); Ovalocytes 1+; Stomatocytes Few; Tear Drop Cells Rare; Total Cells Counted 100
[2018-04-29] MEDS: PROVENTIL IH SCH ×3 (08:12→20:40)
[2018-04-29] MEDS: DIFLUCAN 200 MG/100 ML BAG IV SCH (09:36)
[2018-04-29] MEDS: PEPCID IV SCH ×2 (09:36→22:44)
[2018-04-29] MEDS: ROCEPHIN/NS 2 GM/100 ML 2 GM/100 ML BAG IV SCH (09:36)
--- NOTE | 2018-04-29 11:23 | Progress Note ---
Assessment and Plan Cultures: 04/18/2018 blood cultures: no growth thus far 04/18/2018 urine culture: No growth 04/19/2018 intra-abdominal culture: E.Coli and Beta hemolytic Group C 04/25/2018 intra-abdominal culture: E.coli and Katerine albicans A/P: 57-year-old female with hypertension, neurofibromatosis, hepatitis C, COPD, nicotine dependence admitted with: 1) Sepsis secondary to gangrenous and perforated appendix causing intra- abdominal/pelvic abscess: Status post exploratory laparotomy and evacuation of pelvic abscess, back to OR on 04/25/2018 for drain dislodgement. Clinically stable, no fevers. Continue current abx, based on culture growth of E.coli and Katerine albicans. Slow bowel recovery. 2) Chronic hep C: untreated. will need outpatient follow up. 3) Extensive tobacco abuse: encouraged to quit. Recs: - continue current abx: Ceftriaxone, Flagyl and Fluconazole tentatively plan for 7 days from last surgery dated 04/25/2018 Will follow. Please call with questions. Teressa Spears MD [facility], [place], [facility] C: [phone] O: [phone] F: [phone] Subjective Date of service: 04/29/18 Principal diagnosis: Sepsis; Ex-lap appendectomy and evacuation of pelvic abscess; Peritonitis Interval history: No fever. States she is passing gas but no BM. Feels tired. on parenteral nutrition. Objective - Exam Narrative Exam: Physical Exam: Constitutional: Alert, cooperative. Appears Head, Ears, Nose: Normocephalic, atraumatic. External ears, nose normal Eyes: Conjunctivae/corneas clear. No icterus. No ptosis. Neck: Supple, no meningeal signs Oral: poor dentition, no thrush Cardiovascular: S1, S2 normal. Respiratory: Good air entry, clear to auscultation bilaterally GI: bowel sounds hypoactive, drain + Musculoskeletal: No pedal edema, no cyanosis. Skin: No rash or abscess. Tattoos + Hem/Lymphatic: No palpable cervical or supraclavicular nodes. No lymphangitis Psych: Mood ok. Affect flat Neurological: Awake, alert, oriented. No gross abnormality - Constitutional Vitals: Vital Signs Temp Pulse Resp BP Pulse Ox 98.4 F 119 H 14 170/88 91 04/29/18 08:00 04/29/18 08:20 04/29/18 08:20 04/29/18 08:00 04/29/18 08:42 Temperature -Last 24 Hours Temperature 98.4 F Temperature 99.1 F Temperature 98 F Temperature 97.7 F Temperature 98.5 F Temperature 98.3 F Temperature 98.4 F - Labs CBC & Chem 7: 04/29/18 05:18 04/29/18 05:18 Labs: Abnormal lab results 04/29/18 04/29/18 Range/Units 05:18 05:18 WBC 12.0 H (4.5-11.0) K/mm3 RDW 16.0 H (13.2-15.2) % Seg Neuts % (Manual) 87.0 H (40.0-70.0) % Lymphocytes % (Manual) 10.0 L (13.4-35.0) % Seg Neutrophils # Man 10.4 H (1.8-7.7) K/mm3 Sodium 135 L (137-145) mmol/L Creatinine 0.2 L (0.7-1.2) mg/dL Glucose 120 H (65-100) mg/dL Calcium 7.5 L (8.4-10.2) mg/dL
--- NOTE | 2018-04-29 12:14 | Progress Note ---
Assessment and Plan POD # 4 Pt looking and feeling "better" less anxiety, less back pain. Sump drainage 300 cc over last 24 hrs Abd soft, non tender. dressings dry stable may transfer to surgical floor 3W may resume po meds as per Hospitalist continue present care (TPN, IV antibiotics) ambulate down halls as tiffanie PT consult if necessary continue CPT & aerosol Rx's Selected Entries 04/29/18 04/29/18 04/29/18 08:00 08:20 08:42 Temperature 98.4 F Pulse Rate [ 119 H Bilateral] O2 Sat by Pulse 91 Oximetry Blood Pressure 170/88 Laboratory Tests 04/29/18 04/29/18 05:18 05:18 WBC 12.0 H Hgb 11.0 Hct 33.6 Sodium 135 L Potassium 3.9 D Chloride 99.9 Carbon Dioxide 25 Anion Gap 14 BUN 9 Creatinine 0.2 L Glucose 120 H Objective Vital Signs - 12hr 04/29/18 04/29/18 04/29/18 01:00 02:00 03:00 Temperature Pulse Rate 103 H 118 H 115 H Pulse Rate [ Bilateral] Pulse Rate [ From Monitor] Respiratory 18 20 19 Rate Respiratory Rate [Bilateral ] Blood Pressure 162/80 165/86 165/86 O2 Sat by Pulse 92 93 92 Oximetry 04/29/18 04/29/18 04/29/18 03:29 04:00 05:00 Temperature 99.1 F Pulse Rate 102 H 113 H 131 H Pulse Rate [ Bilateral] Pulse Rate [ 103 H From Monitor] Respiratory 19 22 Rate Respiratory Rate [Bilateral ] Blood Pressure 180/93 143/74 151/69 O2 Sat by Pulse 91 91 Oximetry 04/29/18 04/29/18 04/29/18 06:00 07:00 08:00 Temperature 98.4 F Pulse Rate 125 H 113 H 118 H Pulse Rate [ Bilateral] Pulse Rate [ From Monitor] Respiratory 20 19 21 Rate Respiratory Rate [Bilateral ] Blood Pressure 149/75 157/83 170/88 O2 Sat by Pulse 89 90 92 Oximetry 04/29/18 04/29/18 04/29/18 08:12 08:20 08:42 Temperature Pulse Rate Pulse Rate [ 119 H 119 H Bilateral] Pulse Rate [ From Monitor] Respiratory Rate Respiratory 14 14 Rate [Bilateral ] Blood Pressure O2 Sat by Pulse 91 Oximetry - Labs 04/29/18 05:18 04/29/18 05:18 Diabetes panel 04/29/18 Range/Units 05:18 Sodium 135 L (137-145) mmol/L Potassium 3.9 D (3.6-5.0) mmol/L Chloride 99.9 (98-107) mmol/L Carbon Dioxide 25 (22-30) mmol/L BUN 9 (7-17) mg/dL Creatinine 0.2 L (0.7-1.2) mg/dL Glucose 120 H (65-100) mg/dL Calcium 7.5 L (8.4-10.2) mg/dL Calcium panel 04/29/18 Range/Units 05:18 Calcium 7.5 L (8.4-10.2) mg/dL Phosphorus 2.70 D (2.5-4.5) mg/dL Pituitary panel 04/29/18 Range/Units 05:18 Sodium 135 L (137-145) mmol/L Potassium 3.9 D (3.6-5.0) mmol/L Chloride 99.9 (98-107) mmol/L Carbon Dioxide 25 (22-30) mmol/L BUN 9 (7-17) mg/dL Creatinine 0.2 L (0.7-1.2) mg/dL Glucose 120 H (65-100) mg/dL Calcium 7.5 L (8.4-10.2) mg/dL Adrenal panel 04/29/18 Range/Units 05:18 Sodium 135 L (137-145) mmol/L Potassium 3.9 D (3.6-5.0) mmol/L Chloride 99.9 (98-107) mmol/L Carbon Dioxide 25 (22-30) mmol/L BUN 9 (7-17) mg/dL Creatinine 0.2 L (0.7-1.2) mg/dL Glucose 120 H (65-100) mg/dL Calcium 7.5 L (8.4-10.2) mg/dL
--- NOTE | 2018-04-29 13:10 | Progress Note ---
Assessment and Plan Assessment and plan: Sepsis. Etiology secondary to gangrenous and perforated appendix causing intra- abdominal/pelvic abscess. Patient is status post exploratory laparotomy with appendectomy and evacuation of pelvic abscess. ID following. Continue antibiotics. Perforated appendix s/p exploratory lap. Cont. TPN and IV abx dislodged drain, s/p taken to OR , exploratory lap, irrigation of intraabd cavity and placement of sump drain on 04/25 OOB as tiffanie Chronic hep C. Untreated. Outpatient follow-up. Hypertension. Continue antihypertensive medications. COPD. Compensated. Hypokalemia. Replete potassium. Hyponatremia. Change IV fluid to normal saline. Neurofibromatosis Tobacco abuse. Patient counseled on smoking cessation. History Interval history: The patient is a 57-year-old female with hypertension, neurofibromatosis, hepatitis C, COPD, nicotine dependence presented to the emergency room on 04/18/18 with complaints of abdominal pain going on for [address] scan obtained in the emergency room revealed a ruptured appendix with associated intra-abdominal abscess. General surgery was consulted and the patient underwent an emergent exploratory laparotomy with evacuation of pelvic abscess. She was noted to have a gangrenous, perforated appendix eroding including into the small bowel. As per the op note, the abscess could not be drained as the entire abscess and inflammatory process had trapped the small bowel, which was mobilized and she underwent an ileocolic anastomosis. The patient went back to the OR on 04/25/18 for drain dislodgment. Hospitalist Physical - Constitutional Vitals: Temp Pulse Resp BP Pulse Ox 98.4 F 119 H 14 170/88 91 04/29/18 08:00 04/29/18 08:20 04/29/18 08:20 04/29/18 08:00 04/29/18 08:42 General appearance: Present: no acute distress - EENT Eyes: Present: PERRL, EOM intact ENT: hearing intact, clear oral mucosa, dentition normal - Neck Neck: Present: supple, normal ROM - Respiratory Respiratory effort: normal Respiratory: bilateral: CTA - Cardiovascular Rhythm: regular Heart Sounds: Present: S1 & S2. Absent: gallop, rub - Extremities Extremities: no ischemia, No edema, Full ROM - Abdominal General gastrointestinal: soft, non-tender, non-distended, normal bowel sounds - Integumentary Integumentary: Present: clear, warm, dry - Neurologic Neurologic: CNII-XII intact, moves all extremities Results - Labs CBC & Chem 7: 04/29/18 05:18 04/29/18 05:18 Labs: Laboratory Last Values WBC 12.0 K/mm3 (4.5-11.0) H 04/29/18 05:18 RBC 3.93 M/mm3 (3.65-5.03) 04/29/18 05:18 Hgb 11.0 gm/dl (10.1-14.3) 04/29/18 05:18 Hct 33.6 % (30.3-42.9) 04/29/18 05:18 MCV 86 fl (79-97) 04/29/18 05:18 MCH 28 pg (28-32) 04/29/18 05:18 MCHC 33 % (30-34) 04/29/18 05:18 RDW 16.0 % (13.2-15.2) H 04/29/18 05:18 Plt Count 341 K/mm3 (140-440) 04/29/18 05:18 Lymph % (Auto) 10.1 % (13.4-35.0) L 04/24/18 07:23 [place] % (Auto) 7.3 % (0.0-7.3) 04/24/18 07:23 Eos % (Auto) 0.4 % (0.0-4.3) 04/24/18 07:23 Baso % (Auto) 1.6 % (0.0-1.8) 04/24/18 07:23 Lymph # 0.8 K/mm3 (1.2-5.4) L 04/24/18 07:23 [place] # 0.6 K/mm3 (0.0-0.8) 04/24/18 07:23 Eos # 0.0 K/mm3 (0.0-0.4) 04/24/18 07:23 Baso # 0.1 K/mm3 (0.0-0.1) 04/24/18 07:23 Add Manual Diff Complete 04/29/18 05:18 Total Counted 100 04/29/18 05:18 Seg Neutrophils % 80.6 % (40.0-70.0) H 04/24/18 07:23 Seg Neuts % (Manual) 87.0 % (40.0-70.0) H 04/29/18 05:18 Band Neutrophils % 1.0 % 04/29/18 05:18 Lymphocytes % (Manual) 10.0 % (13.4-35.0) L 04/29/18 05:18 Reactive Lymphs % (Man) 0 % 04/29/18 05:18 Monocytes % (Manual) 1.0 % (0.0-7.3) 04/29/18 05:18 Eosinophils % (Manual) 0 % (0.0-4.3) 04/29/18 05:18 Basophils % (Manual) 0 % (0.0-1.8) 04/29/18 05:18 Metamyelocytes % 1.0 % 04/29/18 05:18 Myelocytes % 0 % 04/29/18 05:18 Promyelocytes % 0 % 04/29/18 05:18 Blast Cells % 0 % 04/29/18 05:18 Nucleated RBC % Not Reportable 04/29/18 05:18 Seg Neutrophils # 6.5 K/mm3 (1.8-7.7) 04/24/18 07:23 Seg Neutrophils # Man 10.4 K/mm3 (1.8-7.7) H 04/29/18 05:18 Band Neutrophils # 0.1 K/mm3 04/29/18 05:18 Lymphocytes # (Manual) 1.2 K/mm3 (1.2-5.4) 04/29/18 05:18 Abs React Lymphs (Man) 0.0 K/mm3 04/29/18 05:18 Monocytes # (Manual) 0.1 K/mm3 (0.0-0.8) 04/29/18 05:18 Eosinophils # (Manual) 0.0 K/mm3 (0.0-0.4) 04/29/18 05:18 Basophils # (Manual) 0.0 K/mm3 (0.0-0.1) 04/29/18 05:18 Metamyelocytes # 0.1 K/mm3 04/29/18 05:18 Myelocytes # 0.0 K/mm3 04/29/18 05:18 Promyelocytes # 0.0 K/mm3 04/29/18 05:18 Blast Cells # 0.0 K/mm3 04/29/18 05:18 WBC Morphology Not Reportable 04/29/18 05:18 Hypersegmented Neuts Not Reportable 04/29/18 05:18 Hyposegmented Neuts Not Reportable 04/29/18 05:18 Hypogranular Neuts Not Reportable 04/29/18 05:18 Smudge Cells Not Reportable 04/29/18 05:18 Toxic Granulation Not Reportable 04/29/18 05:18 Toxic Vacuolation Not Reportable 04/29/18 05:18 Dohle Bodies Not Reportable 04/29/18 05:18 Pelger-Huet Anomaly Not Reportable 04/29/18 05:18 Nicole Rods Not Reportable 04/29/18 05:18 Platelet Estimate Appears normal 04/29/18 05:18 Clumped Platelets Not Reportable 04/29/18 05:18 Plt Clumps, EDTA Not Reportable 04/29/18 05:18 Large Platelets Not Reportable 04/29/18 05:18 Giant Platelets Not Reportable 04/29/18 05:18 Platelet Satelliting Not Reportable 04/29/18 05:18 Plt Morphology Comment Not Reportable 04/29/18 05:18 RBC Morphology Not Reportable 04/29/18 05:18 Dimorphic RBCs Not Reportable 04/29/18 05:18 Polychromasia Few 04/29/18 05:18 Hypochromasia Not Reportable 04/29/18 05:18 Poikilocytosis Not Reportable 04/29/18 05:18 Anisocytosis 1+ 04/29/18 05:18 Microcytosis Few 04/29/18 05:18 Macrocytosis Not Reportable 04/29/18 05:18 Spherocytes Not Reportable 04/29/18 05:18 Pappenheimer Bodies Not Reportable 04/29/18 05:18 Sickle Cells Not Reportable 04/29/18 05:18 Target Cells Not Reportable 04/29/18 05:18 Tear Drop Cells Rare 04/29/18 05:18 Ovalocytes 1+ 04/29/18 05:18 Stomatocytes Few 04/29/18 05:18 Helmet Cells Not Reportable 04/29/18 05:18 [place] Bodies Not Reportable 04/29/18 05:18 [place] Rings Not Reportable 04/29/18 05:18 [place] Cells Few 04/29/18 05:18 Bite Cells Not Reportable 04/29/18 05:18 Crenated Cell Not Reportable 04/29/18 05:18 Elliptocytes Not Reportable 04/29/18 05:18 Acanthocytes (Spur) Not Reportable 04/29/18 05:18 Rouleaux Not Reportable 04/29/18 05:18 Hemoglobin C Crystals Not Reportable 04/29/18 05:18 Schistocytes Not Reportable 04/29/18 05:18 Malaria parasites Not Reportable 04/29/18 05:18 Hung Bodies Not Reportable 04/29/18 05:18 Hem Pathologist Commnt No 04/29/18 05:18 PT 15.3 Sec. (12.2-14.9) H 04/22/18 05:19 INR 1.17 (0.87-1.13) H 04/22/18 05:19 APTT 29.4 Sec. (24.2-36.6) 04/19/18 05:19 POC ABG pH 7.367 (7.35-7.45) 04/19/18 00:19 POC ABG pCO2 36.8 (35-45) 04/19/18 00:19 POC ABG pO2 84 (80-105) 04/19/18 00:19 POC ABG HCO3 21.1 04/19/18 00:19 POC ABG Total CO2 22 04/19/18 00:19 POC ABG O2 Sat 96 04/19/18 00:19 POC ABG Base Excess -4 04/19/18 00:19 VBG pH 7.439 (7.320-7.420) H 04/18/18 14:30 FiO2 32 % 04/19/18 00:19 Sodium 135 mmol/L (137-145) L 04/29/18 05:18 Potassium 3.9 mmol/L (3.6-5.0) D 04/29/18 05:18 Chloride 99.9 mmol/L (98-107) 04/29/18 05:18 Carbon Dioxide 25 mmol/L (22-30) 04/29/18 05:18 Anion Gap 14 mmol/L 04/29/18 05:18 BUN 9 mg/dL (7-17) 04/29/18 05:18 Creatinine 0.2 mg/dL (0.7-1.2) L 04/29/18 05:18 Estimated GFR > 60 ml/min 04/29/18 05:18 BUN/Creatinine Ratio 45 % 04/29/18 05:18 Glucose 120 mg/dL (65-100) H 04/29/18 05:18 Lactic Acid 0.90 mmol/L (0.7-2.0) 04/18/18 18:41 Calcium 7.5 mg/dL (8.4-10.2) L 04/29/18 05:18 Phosphorus 2.70 mg/dL (2.5-4.5) D 04/29/18 05:18 Magnesium 1.70 mg/dL (1.7-2.3) 04/29/18 05:18 Total Bilirubin 0.40 mg/dL (0.1-1.2) 04/28/18 06:00 AST 26 units/L (5-40) 04/28/18 06:00 ALT 20 units/L (7-56) 04/28/18 06:00 Alkaline Phosphatase 73 units/L (35-129) 04/28/18 06:00 Total Protein 4.3 g/dL (6.3-8.2) L 04/28/18 06:00 Albumin 2.1 g/dL (3.9-5) L 04/28/18 06:00 Albumin/Globulin Ratio 1.0 % 04/28/18 06:00 Urine Color Yellow (Yellow) 04/20/18 13:35 Urine Turbidity Clear (Clear) 04/20/18 13:35 Urine pH 5.0 (5.0-7.0) 04/20/18 13:35 Ur Specific [place] 1.011 (1.003-1.030) 04/20/18 13:35 Urine Protein <15 mg/dl mg/dL (Negative) 04/20/18 13:35 Urine Glucose (UA) Neg mg/dL (Negative) 04/20/18 13:35 Urine Ketones 20 mg/dL (Negative) 04/20/18 13:35 Urine Blood Sm (Negative) 04/20/18 13:35 Urine Nitrite Neg (Negative) 04/20/18 13:35 Urine Bilirubin Neg (Negative) 04/20/18 13:35 Urine Urobilinogen 2.0 mg/dL (<2.0) 04/20/18 13:35 Ur Leukocyte Esterase Tr (Negative) 04/20/18 13:35 Urine WBC (Auto) 2.0 /HPF (0.0-6.0) 04/20/18 13:35 Urine RBC (Auto) 1.0 /HPF (0.0-6.0) 04/20/18 13:35 U Epithel Cells (Auto) 2.0 /HPF (0-13.0) 04/18/18 16:45 Urine Bacteria (Auto) 2+ /HPF (Negative) 04/18/18 16:45 Urine Mucus Few /HPF 04/20/18 13:35 Blood Type O POSITIVE 04/19/18 13:05 Antibody Screen Negative 04/19/18 13:05 Crossmatch See Detail 04/19/18 13:05 Nutrition/Malnutrition Assess - Dietary Evaluation Nutrition/Malnutrition Findings: Nutrition Notes Start: 04/24/18 09:13 Freq: Status: Active Protocol: Document 04/29/18 08:48 TW (Rec: 04/29/18 09:13 TW [id number]) Co-Sign 04/29/18 08:48 LP Nutrition Notes Initial or Follow up Reassessment Current Diagnosis COPD Sepsis Hypertension Other Pertinent Diagnosis perforated appendix, Hepatitis , Midline abdominal wound Current Diet TPN at 75mL/hr Labs/Tests K 3.9 P 2.7 Na 135 Pertinent Medications Reviewed Height 5 ft 1 in Weight 49.895 kg [place] Body Weight (kg) 47.72 BMI 20.7 Subjective/Other Information CPN day 3. CPN infusing at 75mL/hr. [id number] cancelled. Pt requesting popsicle again. Pt reports being hungry and wanting to eat. Percent of energy/protein needs met: 84%/100% Burn Absent Trauma Absent #2 Nutrition Diagnosis Increased nutrient needs ( specify in comment below) Comments: protein Etiology wound healing As Evidenced by Signs and Symptoms abdominal wound, perforated appendix #1 Nutrition Diagnosis Inadequate oral intake Diagnosis Progress(for reassessment Continues documentation) Is patient on ventilator? No Is Patient Ambulatory and/or Out of Bed No REE-([place]-St. Jeor-confined to bed) [phone] Calculation [facility] Additional Notes Protein needs: (1.5-2.0 g/kg) (75-100 g/day) Fluid needs: 1 ml/ kcal Nutrition Intervention Change Diet Order: Advance when medically feasible Nutrition Support: CPN at 75 ml/hr: 5.6% AA, 8% Dextrose, 100 mEq K, 200 mEq Na, 16 mEq Mg, 10 mEq Ca, 40 mmol P, Cl/Acetate: 50/50, MVI , Thiamine, 250mL Lipids Kcal 1,334 Protein (gm) 100 Carbohydrates (gm) 150 Fat (gm) 50 Fluid (mL) 2,050 Fiber (gm) 0 Goal #1 CPN to meet nutritional needs as best possible Anticipated Discharge Needs: unable to determine at this time Follow-Up By: 04/30/18 Additional Comments F/U for BMP, Mg, P in am
--- NOTE | 2018-04-29 19:08 | Progress Note ---
Assessment and Plan Sepsis. Etiology secondary to gangrenous and perforated appendix causing intra- abdominal/pelvic abscess. status post exploratory laparotomy with appendectomy and evacuation of pelvic abscess. Intrabdominal sepsis/peritonitis Ruptured appendix with abdominal abscess Tobacco abuse disorder COPD Neurofibromatosis - continue supplemental oxygen to keep O2 sats > 90% - advance diet per surgeon - continue aspiration precautions - abdominal drain to suction - complete antibiotics course and adjust per ID - follow cultures and clinically for AB's de-escalation - IV fluids per surgeon - VTE prophylaxis - PT/OT/Mobility, OOB to chair daily - continue incentive spirometry - continue nicotine withdrawal precautions - Smoking cessation counselling was done at the bedside again today - Bronchodilators per protocol - Analgesia, pain management - NPO for now, serial abdominal exams ... re-evaluate in am & prn Subjective Date of service: 04/29/18 Principal diagnosis: Sepsis; Ex-lap appendectomy and evacuation of pelvic abscess; Peritonitis Interval history: Patient is seen today for: Sepsis; status post exploratory laparotomy with appendectomy and evacuation of pelvic abscess; Intrabdominal sepsis/peritonitis; Ruptured appendix with abdominal abscess Seen and examined at bedside; 24hour events reviewed; nursing and respiratory care staff consulted; no adverse overnight events reported to me; resting in bed; denies acute chest pains or palpitations; remains on supplemental oxygen; abdominal drain in place; No N/V/F/C Objective Vital Signs - 12hr 04/29/18 04/29/18 04/29/18 08:00 08:12 08:20 Temperature 98.4 F Pulse Rate 118 H Pulse Rate [ 119 H 119 H Bilateral] Respiratory 21 Rate Respiratory Rate [Back] Respiratory 14 14 Rate [Bilateral ] Blood Pressure 170/88 O2 Sat by Pulse 92 Oximetry 04/29/18 04/29/18 04/29/18 08:21 08:31 08:41 Temperature Pulse Rate 123 H 124 H 128 H Pulse Rate [ Bilateral] Respiratory 19 19 18 Rate Respiratory Rate [Back] Respiratory Rate [Bilateral ] Blood Pressure 170/88 170/88 170/88 O2 Sat by Pulse 92 90 90 Oximetry 04/29/18 04/29/18 04/29/18 08:42 08:51 09:00 Temperature Pulse Rate 121 H 127 H Pulse Rate [ Bilateral] Respiratory 20 20 Rate Respiratory Rate [Back] Respiratory Rate [Bilateral ] Blood Pressure 170/88 162/84 O2 Sat by Pulse 91 91 91 Oximetry 04/29/18 04/29/18 04/29/18 09:11 09:21 09:31 Temperature Pulse Rate 125 H 126 H 126 H Pulse Rate [ Bilateral] Respiratory 21 23 21 Rate Respiratory Rate [Back] Respiratory Rate [Bilateral ] Blood Pressure 162/84 162/84 162/84 O2 Sat by Pulse 91 90 90 Oximetry 04/29/18 04/29/18 04/29/18 09:41 09:51 10:00 Temperature Pulse Rate 122 H 120 H 121 H Pulse Rate [ Bilateral] Respiratory 22 17 18 Rate Respiratory Rate [Back] Respiratory Rate [Bilateral ] Blood Pressure 162/84 162/84 146/85 O2 Sat by Pulse 90 92 92 Oximetry 04/29/18 04/29/18 04/29/18 10:11 10:21 10:31 Temperature Pulse Rate 120 H 119 H 121 H Pulse Rate [ Bilateral] Respiratory 16 22 21 Rate Respiratory Rate [Back] Respiratory Rate [Bilateral ] Blood Pressure 146/85 146/85 146/85 O2 Sat by Pulse 93 89 90 Oximetry 04/29/18 04/29/18 04/29/18 10:41 10:51 11:00 Temperature Pulse Rate 118 H 119 H 124 H Pulse Rate [ Bilateral] Respiratory 19 21 19 Rate Respiratory Rate [Back] Respiratory Rate [Bilateral ] Blood Pressure 146/85 146/85 166/91 O2 Sat by Pulse 89 90 90 Oximetry 04/29/18 04/29/18 04/29/18 11:11 11:21 11:31 Temperature Pulse Rate 109 H 107 H 109 H Pulse Rate [ Bilateral] Respiratory 17 14 13 Rate Respiratory Rate [Back] Respiratory Rate [Bilateral ] Blood Pressure 146/85 146/85 146/85 O2 Sat by Pulse 89 93 93 Oximetry 04/29/18 04/29/18 04/29/18 11:41 11:51 12:00 Temperature 98.3 F Pulse Rate 104 H 103 H 115 H Pulse Rate [ Bilateral] Respiratory 18 16 13 Rate Respiratory Rate [Back] Respiratory Rate [Bilateral ] Blood Pressure 146/85 146/85 156/93 O2 Sat by Pulse 94 94 94 Oximetry 04/29/18 04/29/18 04/29/18 12:11 12:21 12:31 Temperature Pulse Rate 115 H 120 H 114 H Pulse Rate [ Bilateral] Respiratory 13 25 H 21 Rate Respiratory Rate [Back] Respiratory Rate [Bilateral ] Blood Pressure 156/93 156/93 156/93 O2 Sat by Pulse 96 94 94 Oximetry 04/29/18 04/29/18 04/29/18 12:41 12:51 13:00 Temperature Pulse Rate 117 H 115 H 115 H Pulse Rate [ Bilateral] Respiratory 17 21 20 Rate Respiratory Rate [Back] Respiratory Rate [Bilateral ] Blood Pressure 156/93 156/93 171/93 O2 Sat by Pulse 95 94 94 Oximetry 04/29/18 04/29/18 04/29/18 13:11 13:21 13:31 Temperature Pulse Rate 116 H 113 H 114 H Pulse Rate [ Bilateral] Respiratory 18 20 19 Rate Respiratory Rate [Back] Respiratory Rate [Bilateral ] Blood Pressure 156/93 156/93 156/93 O2 Sat by Pulse 94 93 94 Oximetry 04/29/18 04/29/18 04/29/18 13:41 13:51 14:00 Temperature Pulse Rate 120 H 113 H 121 H Pulse Rate [ 112 H Bilateral] Respiratory 23 20 21 Rate Respiratory Rate [Back] Respiratory 13 Rate [Bilateral ] Blood Pressure 171/93 171/93 171/87 O2 Sat by Pulse 94 94 93 Oximetry 04/29/18 04/29/18 04/29/18 14:02 14:11 14:21 Temperature Pulse Rate 118 H 118 H Pulse Rate [ 122 H Bilateral] Respiratory 22 24 Rate Respiratory Rate [Back] Respiratory 20 Rate [Bilateral ] Blood Pressure 171/87 171/87 O2 Sat by Pulse 93 94 Oximetry 04/29/18 04/29/18 04/29/18 14:31 14:41 14:51 Temperature Pulse Rate 118 H 120 H 119 H Pulse Rate [ Bilateral] Respiratory 16 23 24 Rate Respiratory Rate [Back] Respiratory Rate [Bilateral ] Blood Pressure 171/87 171/87 171/87 O2 Sat by Pulse 93 93 93 Oximetry 04/29/18 04/29/18 04/29/18 14:59 15:00 15:11 Temperature Pulse Rate 121 H 119 H Pulse Rate [ Bilateral] Respiratory 20 20 22 Rate Respiratory Rate [Back] Respiratory Rate [Bilateral ] Blood Pressure 177/92 177/92 O2 Sat by Pulse 93 92 Oximetry 04/29/18 04/29/18 04/29/18 15:21 15:31 16:00 Temperature Pulse Rate 118 H Pulse Rate [ Bilateral] Respiratory 15 Rate Respiratory 20 Rate [Back] Respiratory Rate [Bilateral ] Blood Pressure 177/92 177/92 O2 Sat by Pulse 93 93 Oximetry 04/29/18 04/29/18 04/29/18 16:58 17:11 17:24 Temperature 98.6 F Pulse Rate 115 H 116 H Pulse Rate [ Bilateral] Respiratory 20 20 Rate Respiratory Rate [Back] Respiratory Rate [Bilateral ] Blood Pressure 176/89 176/89 O2 Sat by Pulse 93 Oximetry 04/29/18 17:54 Temperature Pulse Rate Pulse Rate [ Bilateral] Respiratory 20 Rate Respiratory Rate [Back] Respiratory Rate [Bilateral ] Blood Pressure O2 Sat by Pulse Oximetry Constitutional: no acute distress, alert, other (chronically ill looking this middle aged CF, normocephalic) Eyes: non-icteric ENT: oropharynx moist, other (Mallampati 2) Neck: supple, no lymphadenopathy, no JVD Effort: mildly labored Ascultation: Bilateral: diminished breath sounds, rhonchi Percussion: Bilateral: not dull Cardiovascular: regular rate and rhythm Gastrointestinal: normoactive bowel sounds, soft, tender (bhargav-op site), non- distended, other (Drain in place with non-bloody effluent) Integumentary: other (poor turgor; ? neurofibromatous nodules over body) Extremities: no cyanosis, no edema, pink and warm, pulses normal Neurologic: normal mental status, non-focal exam, pupils equal and round, motor strength normal and Psychiatric: mood appropriate, anxious CBC and BMP: 04/30/18 05:41 05/01/18 04:45 ABG, PT/INR, D-dimer: ABG POC ABG pH 7.367 (7.35-7.45) 04/19/18 00:19 POC ABG pCO2 36.8 (35-45) 04/19/18 00:19 POC ABG pO2 84 (80-105) 04/19/18 00:19 POC ABG HCO3 21.1 04/19/18 00:19 POC ABG Total CO2 22 04/19/18 00:19 POC ABG O2 Sat 96 04/19/18 00:19 PT/INR, D-dimer PT 15.3 Sec. (12.2-14.9) H 04/22/18 05:19 INR 1.17 (0.87-1.13) H 04/22/18 05:19 Abnormal lab findings: Abnormal Labs 04/18/18 04/18/18 04/18/18 14:30 14:30 14:30 WBC 18.6 H RBC Hgb Hct RDW Lymph % (Auto) [place]ps % (Auto) Lymph # Seg Neutrophils % Seg Neuts % (Manual) 79.0 H Lymphocytes % (Manual) 4.0 L Seg Neutrophils # Man 14.7 H Lymphocytes # (Manual) 0.7 L PT 16.3 H INR 1.27 H VBG pH Sodium 121 L Potassium 3.0 L Chloride 78.0 L Carbon Dioxide BUN Creatinine 0.5 L Glucose 110 H POC Glucose Lactic Acid Calcium Phosphorus Magnesium Total Bilirubin 1.30 H AST 42 H Total Protein Albumin 3.1 L Crossmatch 04/18/18 04/18/18 04/18/18 14:30 14:30 23:59 WBC RBC Hgb Hct RDW 15.8 H Lymph % (Auto) [place] % (Auto) Lymph # Seg Neutrophils % Seg Neuts % (Manual) 78.0 H Lymphocytes % (Manual) 6.0 L Seg Neutrophils # Man Lymphocytes # (Manual) 0.5 L PT INR VBG pH 7.439 H Sodium Potassium Chloride Carbon Dioxide BUN Creatinine Glucose POC Glucose Lactic Acid 3.60 H* Calcium Phosphorus Magnesium Total Bilirubin AST Total Protein Albumin Crossmatch 04/18/18 04/19/18 04/19/18 23:59 05:19 05:19 WBC 15.0 H RBC Hgb Hct RDW 15.3 H Lymph % (Auto) [place] % (Auto) Lymph # Seg Neutrophils % Seg Neuts % (Manual) Lymphocytes % (Manual) 5.0 L Seg Neutrophils # Man 8.3 H Lymphocytes # (Manual) 0.8 L PT INR VBG pH Sodium 130 L D 133 L Potassium 3.5 L 3.3 L Chloride Carbon Dioxide 20 L D BUN Creatinine 0.5 L 0.6 L Glucose 140 H 115 H POC Glucose Lactic Acid Calcium 7.5 L 7.4 L Phosphorus Magnesium Total Bilirubin AST Total Protein 4.4 L D 4.1 L Albumin 2.0 L 1.9 L Crossmatch 04/19/18 04/19/18 04/20/18 05:19 13:05 05:18 WBC RBC Hgb Hct RDW Lymph % (Auto) [place]ps % (Auto) Lymph # Seg Neutrophils % Seg Neuts % (Manual) Lymphocytes % (Manual) Seg Neutrophils # Man Lymphocytes # (Manual) PT 19.4 H 17.4 H INR 1.59 H 1.38 H VBG pH Sodium Potassium Chloride Carbon Dioxide BUN Creatinine Glucose POC Glucose Lactic Acid Calcium Phosphorus Magnesium Total Bilirubin AST Total Protein Albumin Crossmatch See Detail 04/20/18 04/20/18 04/21/18 13:47 13:47 04:52 WBC RBC 3.29 L 3.10 L Hgb 9.6 L 8.8 L Hct 28.1 L D 26.6 L RDW 15.3 H 15.4 H Lymph % (Auto) 5.6 L [place]ps % (Auto) Lymph # 0.4 L Seg Neutrophils % 87.3 H Seg Neuts % (Manual) Lymphocytes % (Manual) Seg Neutrophils # Man Lymphocytes # (Manual) PT INR VBG pH Sodium Potassium Chloride Carbon Dioxide BUN Creatinine 0.3 L Glucose 102 H POC Glucose Lactic Acid Calcium 8.0 L Phosphorus Magnesium Total Bilirubin AST Total Protein Albumin Crossmatch 04/21/18 04/22/18 04/22/18 04:52 05:19 05:19 WBC RBC 3.64 L Hgb Hct RDW Lymph % (Auto) 8.5 L [place]ps % (Auto) 9.9 H Lymph # 0.6 L Seg Neutrophils % 81.0 H Seg Neuts % (Manual) Lymphocytes % (Manual) Seg Neutrophils # Man Lymphocytes # (Manual) PT 15.3 H INR 1.17 H VBG pH Sodium Potassium 3.2 L Chloride Carbon Dioxide BUN Creatinine 0.3 L Glucose POC Glucose Lactic Acid Calcium 7.6 L Phosphorus Magnesium Total Bilirubin AST Total Protein Albumin Crossmatch 04/22/18 04/24/18 04/24/18 05:19 07:19 07:19 WBC RBC Hgb Hct RDW Lymph % (Auto) [place]ps % (Auto) Lymph # Seg Neutrophils % Seg Neuts % (Manual) Lymphocytes % (Manual) Seg Neutrophils # Man Lymphocytes # (Manual) PT INR VBG pH Sodium Potassium 3.4 L 2.9 L* Chloride Carbon Dioxide BUN Creatinine 0.3 L 0.3 L Glucose 103 H POC Glucose Lactic Acid Calcium 7.7 L 7.5 L Phosphorus Magnesium 1.60 L Total Bilirubin AST Total Protein 4.3 L Albumin 2.2 L Crossmatch 04/24/18 04/25/18 04/25/18 07:23 06:28 06:28 WBC RBC Hgb Hct RDW 15.3 H 15.9 H Lymph % (Auto) 10.1 L [place]ps % (Auto) Lymph # 0.8 L Seg Neutrophils % 80.6 H Seg Neuts % (Manual) Lymphocytes % (Manual) 9.0 L Seg Neutrophils # Man Lymphocytes # (Manual) 0.7 L PT INR VBG pH Sodium Potassium 3.0 L Chloride Carbon Dioxide BUN 5 L Creatinine 0.2 L Glucose 108 H POC Glucose Lactic Acid Calcium 7.4 L Phosphorus Magnesium Total Bilirubin AST Total Protein 4.6 L Albumin 2.5 L Crossmatch 04/25/18 04/26/18 04/26/18 06:28 05:45 05:45 WBC 11.9 H RBC Hgb Hct RDW 16.2 H Lymph % (Auto) [place]ps % (Auto) Lymph # Seg Neutrophils % Seg Neuts % (Manual) Lymphocytes % (Manual) Seg Neutrophils # Man Lymphocytes # (Manual) PT INR VBG pH Sodium Potassium Chloride Carbon Dioxide BUN 5 L Creatinine 0.2 L Glucose 119 H POC Glucose Lactic Acid Calcium 7.7 L Phosphorus 2.00 L 2.20 L Magnesium Total Bilirubin AST Total Protein Albumin Crossmatch 04/27/18 04/28/18 04/28/18 05:33 06:00 06:00 WBC 11.2 H RBC Hgb Hct RDW 16.0 H Lymph % (Auto) [place] % (Auto) Lymph # Seg Neutrophils % Seg Neuts % (Manual) 92.0 H Lymphocytes % (Manual) 5.0 L Seg Neutrophils # Man 10.3 H Lymphocytes # (Manual) 0.6 L PT INR VBG pH Sodium Potassium 3.4 L 3.1 L Chloride Carbon Dioxide BUN 6 L 4 L Creatinine 0.2 L 0.2 L Glucose 119 H POC Glucose Lactic Acid Calcium 7.5 L 7.1 L Phosphorus 2.00 L 2.10 L Magnesium 1.50 L Total Bilirubin AST Total Protein 4.3 L Albumin 2.1 L Crossmatch 04/29/18 04/29/18 04/29/18 05:18 05:18 17:49 WBC 12.0 H RBC Hgb Hct RDW 16.0 H Lymph % (Auto) [place] % (Auto) Lymph # Seg Neutrophils % Seg Neuts % (Manual) 87.0 H Lymphocytes % (Manual) 10.0 L Seg Neutrophils # Man 10.4 H Lymphocytes # (Manual) PT INR VBG pH Sodium 135 L Potassium Chloride Carbon Dioxide BUN Creatinine 0.2 L Glucose 120 H POC Glucose 108 H Lactic Acid Calcium 7.5 L Phosphorus Magnesium Total Bilirubin AST Total Protein Albumin Crossmatch Allied health notes reviewed: nursing
[2018-04-29] MEDS ORDERED: TPN ADULT 1,800 ML IV SCH (20:00)
[2018-04-29] MEDS ORDERED: INTRALIPID 20% 250 ML IV SCH (20:00)
[2018-04-30] MEDS: DILAUDID IV PRN ×7 (01:56→21:18)
[2018-04-30] MEDS: APRESOLINE IV PRN (04:50)
[2018-04-30] MEDS: FLAGYL 500 MG/100 ML 500 MG/100 ML BAG IV SCH ×3 (05:06→21:18)
[2018-04-30 05:59] LABS: Hematocrit 30.6 % (30.3-42.9); Hemoglobin 10.4 gm/dl (10.1-14.3); Mean Corpuscular HGB Conc 34 % (30-34); Mean Corpuscular Volume 85 fl (79-97); Platelet Count 299 K/mm3 (140-440)
[2018-04-30 06:30] LABS: BUN/Creatinine Ratio 50; Blood Urea Nitrogen 10 mg/dL (7-17); Calcium 7.5 mg/dL (8.4-10.2); Hemolysis Index 3
[2018-04-30 07:13] LABS: Band Neutrophils # (Manual) 0.1 K/mm3; Basophils % (Manual) 0 % (0.0-1.8); Eosinophils % (Manual) 0 % (0.0-4.3); Total Cells Counted 100
[2018-04-30 07:14] LABS: Anisocytosis 1+; Hypochromasia 1+; Ovalocytes Few
[2018-04-30] MEDS: ZOFRAN IV PRN (07:41)
[2018-04-30] MEDS: PEPCID IV SCH ×3 (08:27→21:18)
[2018-04-30] MEDS: PROVENTIL IH SCH ×3 (08:43→21:03)
[2018-04-30] MEDS: DIFLUCAN 200 MG/100 ML BAG IV SCH (10:00)
--- NOTE | 2018-04-30 10:30 | Progress Note ---
Assessment and Plan ultures: 04/18/2018 blood cultures: no growth thus far 04/18/2018 urine culture: No growth 04/19/2018 intra-abdominal culture: E.Coli and Beta hemolytic Group C 04/25/2018 intra-abdominal culture: E.coli and Katerine albicans A/P: 57-year-old female with hypertension, neurofibromatosis, hepatitis C, COPD, nicotine dependence admitted with: 1) Sepsis Resolved, secondary to gangrenous and perforated appendix causing intra-abdominal/pelvic abscess: Status post exploratory laparotomy and evacuatio n of pelvic abscess, back to OR on 04/25/2018 for drain dislodgement. Clinically stable, no fevers. Continue current abx, based on culture growth of E.coli and Katerine albicans. Slow bowel recovery. 2) Chronic hep C: untreated. will need outpatient follow up. 3) Extensive tobacco abuse: encouraged to quit. Recs: - continue current abx: Ceftriaxone, Flagyl and Fluconazole ending 05-02-18, D5 of D7 (tentatively plan for 7 days from last surgery dated 04/25/2018) [facility] M: [phone] O:[phone] Subjective Date of service: 04/30/18 Principal diagnosis: Sepsis; Ex-lap appendectomy and evacuation of pelvic abscess; Peritonitis Interval history: Patient seen and examined. Getting ready to walk with PT, No fevers or generalized pain. Objective - Exam Narrative Exam: Constitutional: Awake, alert . no acute distress Head, Ears, Nose: Normocephalic, atraumatic. External ears, nose normal Eyes: Conjunctivae/corneas clear. No icterus. No ptosis. Neck: Supple, no meningeal signs Oral: poor dentition, no thrush Cardiovascular: S1, S2 normal. Respiratory: Good air entry, clear to auscultation bilaterally, 02 @ 4L GI:, bowel sounds, NG tube discontinued Musculoskeletal: No pedal edema, no cyanosis. Skin: No rash or abscess. Tattoos +, fibromas + Hem/Lymphatic: No palpable cervical or supraclavicular nodes. No lymphangitis Psych: Mood ok. Affect normal Neurological: Awake, alert, oriented. No gross abnormality - Constitutional Vitals: Vital Signs Temp Pulse Resp BP Pulse Ox 98.0 F 125 H 18 146/80 95 04/30/18 08:03 04/30/18 09:58 04/30/18 09:58 04/30/18 08:03 04/30/18 09:58 Temperature -Last 24 Hours Temperature 98.0 F Temperature 98.2 F Temperature 99.3 F Temperature 98.5 F Temperature 98.6 F Temperature 98.3 F - Labs CBC & Chem 7: 04/30/18 05:41 04/30/18 05:41 Labs: Abnormal lab results 04/29/18 04/30/18 04/30/18 Range/Units 17:49 00:03 05:18 RBC (3.65-5.03) M/mm3 RDW (13.2-15.2) % Seg Neuts % (Manual) (40.0-70.0) % Lymphocytes % (Manual) (13.4-35.0) % Lymphocytes # (Manual) (1.2-5.4) K/mm3 Sodium (137-145) mmol/L Creatinine (0.7-1.2) mg/dL Glucose (65-100) mg/dL POC Glucose 108 H 112 H 110 H (70-105) Calcium (8.4-10.2) mg/dL 04/30/18 04/30/18 Range/Units 05:41 05:41 RBC 3.60 L (3.65-5.03) M/mm3 RDW 16.0 H (13.2-15.2) % Seg Neuts % (Manual) 88.0 H (40.0-70.0) % Lymphocytes % (Manual) 8.0 L (13.4-35.0) % Lymphocytes # (Manual) 0.7 L (1.2-5.4) K/mm3 Sodium 133 L (137-145) mmol/L Creatinine 0.2 L (0.7-1.2) mg/dL Glucose 119 H (65-100) mg/dL POC Glucose (70-105) Calcium 7.5 L (8.4-10.2) mg/dL
[2018-04-30] MEDS: ROCEPHIN/NS 2 GM/100 ML 2 GM/100 ML BAG IV SCH (11:05)
--- NOTE | 2018-04-30 11:06 | Progress Note ---
Assessment and Plan Assessment and plan: Sepsis. Etiology secondary to gangrenous and perforated appendix causing intra- abdominal/pelvic abscess. Patient is status post exploratory laparotomy with appendectomy and evacuation of pelvic abscess. ID following. Continue antibiotics. Perforated appendix s/p exploratory lap. Cont. TPN and IV abx dislodged drain, s/p taken to OR , exploratory lap, irrigation of intraabd cavity and placement of sump drain on 04/25 OOB as tiffanie Chronic hep C. Untreated. Outpatient follow-up. Hypertension. Continue antihypertensive medications. COPD. Compensated. Hypokalemia. Replete potassium. Hyponatremia. Change IV fluid to normal saline. Neurofibromatosis Tobacco abuse. Patient counseled on smoking cessation. History Interval history: The patient is a 57-year-old female with hypertension, neurofibromatosis, hepatitis C, COPD, nicotine dependence presented to the emergency room on 04/18/18 with complaints of abdominal pain going on for [address] scan obtained in the emergency room revealed a ruptured appendix with associated intra-abdominal abscess. General surgery was consulted and the patient underwent an emergent exploratory laparotomy with evacuation of pelvic abscess. She was noted to have a gangrenous, perforated appendix eroding including into the small bowel. As per the op note, the abscess could not be drained as the entire abscess and inflammatory process had trapped the small bowel, which was mobilized and she underwent an ileocolic anastomosis. The patient went back to the OR on 04/25/18 for drain dislodgment. Hospitalist Physical - Constitutional Vitals: Temp Pulse Resp BP Pulse Ox 98.0 F 125 H 18 146/80 95 04/30/18 08:03 04/30/18 09:58 04/30/18 09:58 04/30/18 08:03 04/30/18 09:58 General appearance: Present: no acute distress - EENT Eyes: Present: PERRL, EOM intact ENT: hearing intact, clear oral mucosa, dentition normal - Neck Neck: Present: supple, normal ROM - Respiratory Respiratory effort: normal Respiratory: bilateral: CTA - Cardiovascular Rhythm: regular Heart Sounds: Present: S1 & S2. Absent: gallop, rub - Extremities Extremities: no ischemia, No edema, Full ROM - Abdominal General gastrointestinal: soft, non-tender, non-distended, normal bowel sounds - Integumentary Integumentary: Present: clear, warm, dry - Neurologic Neurologic: CNII-XII intact, moves all extremities Results - Labs CBC & Chem 7: 04/30/18 05:41 04/30/18 05:41 Labs: Laboratory Last Values WBC 8.8 K/mm3 (4.5-11.0) 04/30/18 05:41 RBC 3.60 M/mm3 (3.65-5.03) L 04/30/18 05:41 Hgb 10.4 gm/dl (10.1-14.3) 04/30/18 05:41 Hct 30.6 % (30.3-42.9) 04/30/18 05:41 MCV 85 fl (79-97) 04/30/18 05:41 MCH 29 pg (28-32) 04/30/18 05:41 MCHC 34 % (30-34) 04/30/18 05:41 RDW 16.0 % (13.2-15.2) H 04/30/18 05:41 Plt Count 299 K/mm3 (140-440) 04/30/18 05:41 Lymph % (Auto) 10.1 % (13.4-35.0) L 04/24/18 07:23 [place] % (Auto) 7.3 % (0.0-7.3) 04/24/18 07:23 Eos % (Auto) 0.4 % (0.0-4.3) 04/24/18 07:23 Baso % (Auto) 1.6 % (0.0-1.8) 04/24/18 07:23 Lymph # 0.8 K/mm3 (1.2-5.4) L 04/24/18 07:23 [place] # 0.6 K/mm3 (0.0-0.8) 04/24/18 07:23 Eos # 0.0 K/mm3 (0.0-0.4) 04/24/18 07:23 Baso # 0.1 K/mm3 (0.0-0.1) 04/24/18 07:23 Add Manual Diff Complete 04/30/18 05:41 Total Counted 100 04/30/18 05:41 Seg Neutrophils % 80.6 % (40.0-70.0) H 04/24/18 07:23 Seg Neuts % (Manual) 88.0 % (40.0-70.0) H 04/30/18 05:41 Band Neutrophils % 1.0 % 04/30/18 05:41 Lymphocytes % (Manual) 8.0 % (13.4-35.0) L 04/30/18 05:41 Reactive Lymphs % (Man) 0 % 04/30/18 05:41 Monocytes % (Manual) 3.0 % (0.0-7.3) 04/30/18 05:41 Eosinophils % (Manual) 0 % (0.0-4.3) 04/30/18 05:41 Basophils % (Manual) 0 % (0.0-1.8) 04/30/18 05:41 Metamyelocytes % 0 % 04/30/18 05:41 Myelocytes % 0 % 04/30/18 05:41 Promyelocytes % 0 % 04/30/18 05:41 Blast Cells % 0 % 04/30/18 05:41 Nucleated RBC % Not Reportable 04/30/18 05:41 Seg Neutrophils # 6.5 K/mm3 (1.8-7.7) 04/24/18 07:23 Seg Neutrophils # Man 7.7 K/mm3 (1.8-7.7) 04/30/18 05:41 Band Neutrophils # 0.1 K/mm3 04/30/18 05:41 Lymphocytes # (Manual) 0.7 K/mm3 (1.2-5.4) L 04/30/18 05:41 Abs React Lymphs (Man) 0.0 K/mm3 04/30/18 05:41 Monocytes # (Manual) 0.3 K/mm3 (0.0-0.8) 04/30/18 05:41 Eosinophils # (Manual) 0.0 K/mm3 (0.0-0.4) 04/30/18 05:41 Basophils # (Manual) 0.0 K/mm3 (0.0-0.1) 04/30/18 05:41 Metamyelocytes # 0.0 K/mm3 04/30/18 05:41 Myelocytes # 0.0 K/mm3 04/30/18 05:41 Promyelocytes # 0.0 K/mm3 04/30/18 05:41 Blast Cells # 0.0 K/mm3 04/30/18 05:41 WBC Morphology Not Reportable 04/30/18 05:41 Hypersegmented Neuts Not Reportable 04/30/18 05:41 Hyposegmented Neuts Not Reportable 04/30/18 05:41 Hypogranular Neuts Not Reportable 04/30/18 05:41 Smudge Cells Not Reportable 04/30/18 05:41 Toxic Granulation Not Reportable 04/30/18 05:41 Toxic Vacuolation Not Reportable 04/30/18 05:41 Dohle Bodies Not Reportable 04/30/18 05:41 Pelger-Huet Anomaly Not Reportable 04/30/18 05:41 Nicole Rods Not Reportable 04/30/18 05:41 Platelet Estimate Appears normal 04/30/18 05:41 Clumped Platelets Not Reportable 04/30/18 05:41 Plt Clumps, EDTA Not Reportable 04/30/18 05:41 Large Platelets Not Reportable 04/30/18 05:41 Giant Platelets Not Reportable 04/30/18 05:41 Platelet Satelliting Not Reportable 04/30/18 05:41 Plt Morphology Comment Not Reportable 04/30/18 05:41 RBC Morphology Not Reportable 04/30/18 05:41 Dimorphic RBCs Not Reportable 04/30/18 05:41 Polychromasia Not Reportable 04/30/18 05:41 Hypochromasia 1+ 04/30/18 05:41 Poikilocytosis Not Reportable 04/30/18 05:41 Anisocytosis 1+ 04/30/18 05:41 Microcytosis Not Reportable 04/30/18 05:41 Macrocytosis Not Reportable 04/30/18 05:41 Spherocytes Not Reportable 04/30/18 05:41 Pappenheimer Bodies Not Reportable 04/30/18 05:41 Sickle Cells Not Reportable 04/30/18 05:41 Target Cells Not Reportable 04/30/18 05:41 Tear Drop Cells Not Reportable 04/30/18 05:41 Ovalocytes Few 04/30/18 05:41 Stomatocytes Few 04/29/18 05:18 Helmet Cells Not Reportable 04/30/18 05:41 [place] Bodies Not Reportable 04/30/18 05:41 [place] Rings Not Reportable 04/30/18 05:41 Philip Cells Not Reportable 04/30/18 05:41 Bite Cells Not Reportable 04/30/18 05:41 Crenated Cell Not Reportable 04/30/18 05:41 Elliptocytes Not Reportable 04/30/18 05:41 Acanthocytes (Spur) Not Reportable 04/30/18 05:41 Rouleaux Not Reportable 04/30/18 05:41 Hemoglobin C Crystals Not Reportable 04/30/18 05:41 Schistocytes Not Reportable 04/30/18 05:41 Malaria parasites Not Reportable 04/30/18 05:41 Hung Bodies Not Reportable 04/30/18 05:41 Hem Pathologist Commnt No 04/30/18 05:41 PT 15.3 Sec. (12.2-14.9) H 04/22/18 05:19 INR 1.17 (0.87-1.13) H 04/22/18 05:19 APTT 29.4 Sec. (24.2-36.6) 04/19/18 05:19 POC ABG pH 7.367 (7.35-7.45) 04/19/18 00:19 POC ABG pCO2 36.8 (35-45) 04/19/18 00:19 POC ABG pO2 84 (80-105) 04/19/18 00:19 POC ABG HCO3 21.1 04/19/18 00:19 POC ABG Total CO2 22 04/19/18 00:19 POC ABG O2 Sat 96 04/19/18 00:19 POC ABG Base Excess -4 04/19/18 00:19 VBG pH 7.439 (7.320-7.420) H 04/18/18 14:30 FiO2 32 % 04/19/18 00:19 Sodium 133 mmol/L (137-145) L 04/30/18 05:41 Potassium 4.4 mmol/L (3.6-5.0) 04/30/18 05:41 Chloride 100.2 mmol/L (98-107) 04/30/18 05:41 Carbon Dioxide 24 mmol/L (22-30) 04/30/18 05:41 Anion Gap 13 mmol/L 04/30/18 05:41 BUN 10 mg/dL (7-17) 04/30/18 05:41 Creatinine 0.2 mg/dL (0.7-1.2) L 04/30/18 05:41 Estimated GFR > 60 ml/min 04/30/18 05:41 BUN/Creatinine Ratio 50 % 04/30/18 05:41 Glucose 119 mg/dL (65-100) H 04/30/18 05:41 POC Glucose 110 (70-105) H 04/30/18 05:18 Lactic Acid 0.90 mmol/L (0.7-2.0) 04/18/18 18:41 Calcium 7.5 mg/dL (8.4-10.2) L 04/30/18 05:41 Phosphorus 3.50 mg/dL (2.5-4.5) D 04/30/18 05:41 Magnesium 2.10 mg/dL (1.7-2.3) 04/30/18 05:41 Total Bilirubin 0.40 mg/dL (0.1-1.2) 04/28/18 06:00 AST 26 units/L (5-40) 04/28/18 06:00 ALT 20 units/L (7-56) 04/28/18 06:00 Alkaline Phosphatase 73 units/L (35-129) 04/28/18 06:00 Total Protein 4.3 g/dL (6.3-8.2) L 04/28/18 06:00 Albumin 2.1 g/dL (3.9-5) L 04/28/18 06:00 Albumin/Globulin Ratio 1.0 % 04/28/18 06:00 Urine Color Yellow (Yellow) 04/20/18 13:35 Urine Turbidity Clear (Clear) 04/20/18 13:35 Urine pH 5.0 (5.0-7.0) 04/20/18 13:35 Ur Specific [place] 1.011 (1.003-1.030) 04/20/18 13:35 Urine Protein <15 mg/dl mg/dL (Negative) 04/20/18 13:35 Urine Glucose (UA) Neg mg/dL (Negative) 04/20/18 13:35 Urine Ketones 20 mg/dL (Negative) 04/20/18 13:35 Urine Blood Sm (Negative) 04/20/18 13:35 Urine Nitrite Neg (Negative) 04/20/18 13:35 Urine Bilirubin Neg (Negative) 04/20/18 13:35 Urine Urobilinogen 2.0 mg/dL (<2.0) 04/20/18 13:35 Ur Leukocyte Esterase Tr (Negative) 04/20/18 13:35 Urine WBC (Auto) 2.0 /HPF (0.0-6.0) 04/20/18 13:35 Urine RBC (Auto) 1.0 /HPF (0.0-6.0) 04/20/18 13:35 U Epithel Cells (Auto) 2.0 /HPF (0-13.0) 04/18/18 16:45 Urine Bacteria (Auto) 2+ /HPF (Negative) 04/18/18 16:45 Urine Mucus Few /HPF 04/20/18 13:35 Blood Type O POSITIVE 04/19/18 13:05 Antibody Screen Negative 04/19/18 13:05 Crossmatch See Detail 04/19/18 13:05 Nutrition/Malnutrition Assess - Dietary Evaluation Nutrition/Malnutrition Findings: Nutrition Notes Start: 04/24/18 09:13 Freq: Status: Active Protocol: Document 04/30/18 09:58 TW (Rec: 04/30/18 10:16 TW [id number]) Co-Sign 04/30/18 09:58 LP Nutrition Notes Initial or Follow up Reassessment Current Diagnosis COPD Sepsis Hypertension Other Pertinent Diagnosis perforated appendix, Hepatitis , Midline abdominal wound Current Diet TPN at 75mL/hr Labs/Tests K 4.4 P3.5 Na 133 Pertinent Medications Reviewed Height 5 ft 1 in Weight 54.8 kg [place] Body Weight (kg) 47.72 BMI 22.8 Subjective/Other Information CPN day 4. CPN running at 75mL /hr. Percent of energy/protein needs met: 100%/100% Burn Absent Trauma Absent #2 Nutrition Diagnosis Increased nutrient needs ( specify in comment below) Diagnosis Progress(for reassessment Continues documentation) #1 Nutrition Diagnosis Inadequate oral intake Diagnosis Progress(for reassessment Continues documentation) Is patient on ventilator? No Is Patient Ambulatory and/or Out of Bed No REE-([facility]-confined to bed) 1301.076 Calculation Used for Recommendations [facility][1] Additional Notes Protein needs: (1.5-2.0 g/kg) (75-100 g/day) Fluid needs: 1 ml/ kcal Nutrition Intervention Change Diet Order: Advance when medically feasible Nutrition Support: CPN at 75 ml/hr: 5.6% AA, 11% Dextrose, 60 mEq K, 250 mEq Na , 16 mEq Mg, 10 mEq Ca, 20 mmol P, Cl/Acetate: 50/50, MVI , trace elements Kcal 1,080 Protein (gm) 100 Carbohydrates (gm) 200 Fat (gm) 0 Fluid (mL) 1,800 Fiber (gm) 0 Goal #1 CPN to meet nutritional needs as best possible Anticipated Discharge Needs: unable to determine at this time Follow-Up By: 05/01/18 Additional Comments F/U for BMP, Mg, P in am
--- NOTE | 2018-04-30 11:53 | Progress Note ---
Assessment and Plan POD # 5 Pt feeling well. Sump drain 300 cc/24 hrs. Abd soft. dressings dry wbc down pt need supplemental D5 1/2 NS to complete a total of 125 cc/hr between TPN & IVF pt draining sulcus intericus and will dehydrate otherwise wbc down surgically stable continue present care Selected Entries 04/30/18 04/30/18 04/30/18 08:00 08:03 08:44 Temperature 98.0 F Pulse Rate [ 112 H Bilateral] Pulse Rate [ From Monitor] O2 Sat by Pulse 94 Oximetry 04/30/18 09:58 Temperature Pulse Rate [ Bilateral] Pulse Rate [ 125 H From Monitor] O2 Sat by Pulse Oximetry Laboratory Tests 04/29/18 04/30/18 04/30/18 05:18 05:41 05:41 WBC 12.0 H 8.8 Hgb 11.0 10.4 Hct 33.6 30.6 Sodium 133 L Potassium 4.4 Chloride 100.2 Carbon Dioxide 24 BUN 10 Creatinine 0.2 L Objective Vital Signs - 12hr 04/30/18 04/30/18 04/30/18 04:43 04:50 08:00 Temperature 98.2 F Pulse Rate 116 H 114 H Pulse Rate [ 112 H Bilateral] Pulse Rate [ From Monitor] Pulse Rate [ Right Radial] Respiratory 18 Rate Respiratory 20 Rate [Bilateral ] Blood Pressure 174/92 174/92 O2 Sat by Pulse 92 Oximetry 04/30/18 04/30/18 04/30/18 08:03 08:44 09:58 Temperature 98.0 F Pulse Rate 125 H Pulse Rate [ Bilateral] Pulse Rate [ 125 H From Monitor] Pulse Rate [ 125 H Right Radial] Respiratory 18 18 Rate Respiratory Rate [Bilateral ] Blood Pressure 146/80 O2 Sat by Pulse 95 94 95 Oximetry - Labs 04/30/18 05:41 04/30/18 05:41 Diabetes panel 04/30/18 Range/Units 05:41 Sodium 133 L (137-145) mmol/L Potassium 4.4 (3.6-5.0) mmol/L Chloride 100.2 (98-107) mmol/L Carbon Dioxide 24 (22-30) mmol/L BUN 10 (7-17) mg/dL Creatinine 0.2 L (0.7-1.2) mg/dL Glucose 119 H (65-100) mg/dL Calcium 7.5 L (8.4-10.2) mg/dL Calcium panel 04/30/18 Range/Units 05:41 Calcium 7.5 L (8.4-10.2) mg/dL Phosphorus 3.50 D (2.5-4.5) mg/dL Pituitary panel 04/30/18 Range/Units 05:41 Sodium 133 L (137-145) mmol/L Potassium 4.4 (3.6-5.0) mmol/L Chloride 100.2 (98-107) mmol/L Carbon Dioxide 24 (22-30) mmol/L BUN 10 (7-17) mg/dL Creatinine 0.2 L (0.7-1.2) mg/dL Glucose 119 H (65-100) mg/dL Calcium 7.5 L (8.4-10.2) mg/dL Adrenal panel 04/30/18 Range/Units 05:41 Sodium 133 L (137-145) mmol/L Potassium 4.4 (3.6-5.0) mmol/L Chloride 100.2 (98-107) mmol/L Carbon Dioxide 24 (22-30) mmol/L BUN 10 (7-17) mg/dL Creatinine 0.2 L (0.7-1.2) mg/dL Glucose 119 H (65-100) mg/dL Calcium 7.5 L (8.4-10.2) mg/dL
[2018-04-30] MEDS: COZAAR PO SCH (14:58)
[2018-04-30] MEDS: D5/0.45NS 1,000 ML IV SCH (15:06)
--- NOTE | 2018-04-30 17:02 | Progress Note ---
Assessment and Plan Sepsis. Etiology secondary to gangrenous and perforated appendix causing intra- abdominal/pelvic abscess. status post exploratory laparotomy with appendectomy and evacuation of pelvic abscess. Intrabdominal sepsis/peritonitis Ruptured appendix with abdominal abscess Tobacco abuse disorder COPD Neurofibromatosis - continue supplemental oxygen to keep O2 sats > 90% - advance diet per surgeon - continue aspiration precautions - abdominal drain to suction - complete antibiotics course and adjust per ID - follow cultures and clinically for AB's de-escalation - IV fluids per surgeon - VTE prophylaxis - PT/OT/Mobility, OOB to chair daily - continue incentive spirometry - continue nicotine withdrawal precautions - Smoking cessation counselling was done at the bedside again today - Bronchodilators per protocol - Analgesia, pain management - NPO for now, serial abdominal exams ... re-evaluate in am & prn Subjective Date of service: 04/30/18 Principal diagnosis: Sepsis; Ex-lap appendectomy and evacuation of pelvic abscess; Peritonitis Interval history: Patient is seen today for: Sepsis; status post exploratory laparotomy with appendectomy and evacuation of pelvic abscess; Intrabdominal sepsis/peritonitis; Ruptured appendix with abdominal abscess Seen and examined at bedside; 24hour events reviewed; nursing and respiratory care staff consulted; no adverse overnight events reported to me; resting in bed; receiving supplemental IVF to prevent dehydration/IVVD; remains on supplemental oxygen; denies acute chest pains or palpitations Objective Vital Signs - 12hr 04/30/18 04/30/18 04/30/18 08:00 08:03 08:44 Temperature 98.0 F Pulse Rate 125 H Pulse Rate [ 112 H Bilateral] Pulse Rate [ From Monitor] Pulse Rate [ Right Radial] Respiratory 18 Rate Respiratory 20 Rate [Bilateral ] Blood Pressure 146/80 O2 Sat by Pulse 95 94 Oximetry 04/30/18 04/30/18 04/30/18 09:58 11:30 15:01 Temperature 97.9 F Pulse Rate 112 H Pulse Rate [ 108 H Bilateral] Pulse Rate [ 125 H From Monitor] Pulse Rate [ 125 H Right Radial] Respiratory 18 18 Rate Respiratory 16 Rate [Bilateral ] Blood Pressure 179/96 O2 Sat by Pulse 95 92 Oximetry 04/30/18 16:22 Temperature 98.1 F Pulse Rate 120 H Pulse Rate [ Bilateral] Pulse Rate [ From Monitor] Pulse Rate [ Right Radial] Respiratory 18 Rate Respiratory Rate [Bilateral ] Blood Pressure 166/90 O2 Sat by Pulse 93 Oximetry Constitutional: no acute distress, alert, other (chronically ill looking this middle aged CF, normocephalic) Eyes: non-icteric ENT: oropharynx moist, other (Mallampati 2) Neck: supple, no lymphadenopathy, no JVD Effort: mildly labored Ascultation: Bilateral: diminished breath sounds, rhonchi Percussion: Bilateral: not dull Cardiovascular: regular rate and rhythm Gastrointestinal: normoactive bowel sounds, soft, tender (bhargav-op site), non- distended, other (Drain in place with non-bloody effluent) Integumentary: other (poor turgor; ? neurofibromatous nodules over body) Extremities: no cyanosis, no edema, pink and warm, pulses normal Neurologic: normal mental status, non-focal exam, pupils equal and round, motor strength normal and Psychiatric: mood appropriate, anxious CBC and BMP: 04/30/18 05:41 05/01/18 04:45 ABG, PT/INR, D-dimer: ABG POC ABG pH 7.367 (7.35-7.45) 04/19/18 00:19 POC ABG pCO2 36.8 (35-45) 04/19/18 00:19 POC ABG pO2 84 (80-105) 04/19/18 00:19 POC ABG HCO3 21.1 04/19/18 00:19 POC ABG Total CO2 22 04/19/18 00:19 POC ABG O2 Sat 96 04/19/18 00:19 PT/INR, D-dimer PT 15.3 Sec. (12.2-14.9) H 04/22/18 05:19 INR 1.17 (0.87-1.13) H 04/22/18 05:19 Abnormal lab findings: Abnormal Labs 04/18/18 04/18/18 04/18/18 14:30 14:30 14:30 WBC 18.6 H RBC Hgb Hct RDW Lymph % (Auto) [place] % (Auto) Lymph # Seg Neutrophils % Seg Neuts % (Manual) 79.0 H Lymphocytes % (Manual) 4.0 L Seg Neutrophils # Man 14.7 H Lymphocytes # (Manual) 0.7 L PT 16.3 H INR 1.27 H VBG pH Sodium 121 L Potassium 3.0 L Chloride 78.0 L Carbon Dioxide BUN Creatinine 0.5 L Glucose 110 H POC Glucose Lactic Acid Calcium Phosphorus Magnesium Total Bilirubin 1.30 H AST 42 H Total Protein Albumin 3.1 L Crossmatch 04/18/18 04/18/18 04/18/18 14:30 14:30 23:59 WBC RBC Hgb Hct RDW 15.8 H Lymph % (Auto) [place] % (Auto) Lymph # Seg Neutrophils % Seg Neuts % (Manual) 78.0 H Lymphocytes % (Manual) 6.0 L Seg Neutrophils # Man Lymphocytes # (Manual) 0.5 L PT INR VBG pH 7.439 H Sodium Potassium Chloride Carbon Dioxide BUN Creatinine Glucose POC Glucose Lactic Acid 3.60 H* Calcium Phosphorus Magnesium Total Bilirubin AST Total Protein Albumin Crossmatch 04/18/18 04/19/18 04/19/18 23:59 05:19 05:19 WBC 15.0 H RBC Hgb Hct RDW 15.3 H Lymph % (Auto) [place] % (Auto) Lymph # Seg Neutrophils % Seg Neuts % (Manual) Lymphocytes % (Manual) 5.0 L Seg Neutrophils # Man 8.3 H Lymphocytes # (Manual) 0.8 L PT INR VBG pH Sodium 130 L D 133 L Potassium 3.5 L 3.3 L Chloride Carbon Dioxide 20 L D BUN Creatinine 0.5 L 0.6 L Glucose 140 H 115 H POC Glucose Lactic Acid Calcium 7.5 L 7.4 L Phosphorus Magnesium Total Bilirubin AST Total Protein 4.4 L D 4.1 L Albumin 2.0 L 1.9 L Crossmatch 04/19/18 04/19/18 04/20/18 05:19 13:05 05:18 WBC RBC Hgb Hct RDW Lymph % (Auto) [place] % (Auto) Lymph # Seg Neutrophils % Seg Neuts % (Manual) Lymphocytes % (Manual) Seg Neutrophils # Man Lymphocytes # (Manual) PT 19.4 H 17.4 H INR 1.59 H 1.38 H VBG pH Sodium Potassium Chloride Carbon Dioxide BUN Creatinine Glucose POC Glucose Lactic Acid Calcium Phosphorus Magnesium Total Bilirubin AST Total Protein Albumin Crossmatch See Detail 04/20/18 04/20/18 04/21/18 13:47 13:47 04:52 WBC RBC 3.29 L 3.10 L Hgb 9.6 L 8.8 L Hct 28.1 L D 26.6 L RDW 15.3 H 15.4 H Lymph % (Auto) 5.6 L [place] % (Auto) Lymph # 0.4 L Seg Neutrophils % 87.3 H Seg Neuts % (Manual) Lymphocytes % (Manual) Seg Neutrophils # Man Lymphocytes # (Manual) PT INR VBG pH Sodium Potassium Chloride Carbon Dioxide BUN Creatinine 0.3 L Glucose 102 H POC Glucose Lactic Acid Calcium 8.0 L Phosphorus Magnesium Total Bilirubin AST Total Protein Albumin Crossmatch 04/21/18 04/22/18 04/22/18 04:52 05:19 05:19 WBC RBC 3.64 L Hgb Hct RDW Lymph % (Auto) 8.5 L [place] % (Auto) 9.9 H Lymph # 0.6 L Seg Neutrophils % 81.0 H Seg Neuts % (Manual) Lymphocytes % (Manual) Seg Neutrophils # Man Lymphocytes # (Manual) PT 15.3 H INR 1.17 H VBG pH Sodium Potassium 3.2 L Chloride Carbon Dioxide BUN Creatinine 0.3 L Glucose POC Glucose Lactic Acid Calcium 7.6 L Phosphorus Magnesium Total Bilirubin AST Total Protein Albumin Crossmatch 04/22/18 04/24/18 04/24/18 05:19 07:19 07:19 WBC RBC Hgb Hct RDW Lymph % (Auto) [place] % (Auto) Lymph # Seg Neutrophils % Seg Neuts % (Manual) Lymphocytes % (Manual) Seg Neutrophils # Man Lymphocytes # (Manual) PT INR VBG pH Sodium Potassium 3.4 L 2.9 L* Chloride Carbon Dioxide BUN Creatinine 0.3 L 0.3 L Glucose 103 H POC Glucose Lactic Acid Calcium 7.7 L 7.5 L Phosphorus Magnesium 1.60 L Total Bilirubin AST Total Protein 4.3 L Albumin 2.2 L Crossmatch 04/24/18 04/25/18 04/25/18 07:23 06:28 06:28 WBC RBC Hgb Hct RDW 15.3 H 15.9 H Lymph % (Auto) 10.1 L [place] % (Auto) Lymph # 0.8 L Seg Neutrophils % 80.6 H Seg Neuts % (Manual) Lymphocytes % (Manual) 9.0 L Seg Neutrophils # Man Lymphocytes # (Manual) 0.7 L PT INR VBG pH Sodium Potassium 3.0 L Chloride Carbon Dioxide BUN 5 L Creatinine 0.2 L Glucose 108 H POC Glucose Lactic Acid Calcium 7.4 L Phosphorus Magnesium Total Bilirubin AST Total Protein 4.6 L Albumin 2.5 L Crossmatch 04/25/18 04/26/18 04/26/18 06:28 05:45 05:45 WBC 11.9 H RBC Hgb Hct RDW 16.2 H Lymph % (Auto) [place] % (Auto) Lymph # Seg Neutrophils % Seg Neuts % (Manual) Lymphocytes % (Manual) Seg Neutrophils # Man Lymphocytes # (Manual) PT INR VBG pH Sodium Potassium Chloride Carbon Dioxide BUN 5 L Creatinine 0.2 L Glucose 119 H POC Glucose Lactic Acid Calcium 7.7 L Phosphorus 2.00 L 2.20 L Magnesium Total Bilirubin AST Total Protein Albumin Crossmatch 04/27/18 04/28/18 04/28/18 05:33 06:00 06:00 WBC 11.2 H RBC Hgb Hct RDW 16.0 H Lymph % (Auto) [place] % (Auto) Lymph # Seg Neutrophils % Seg Neuts % (Manual) 92.0 H Lymphocytes % (Manual) 5.0 L Seg Neutrophils # Man 10.3 H Lymphocytes # (Manual) 0.6 L PT INR VBG pH Sodium Potassium 3.4 L 3.1 L Chloride Carbon Dioxide BUN 6 L 4 L Creatinine 0.2 L 0.2 L Glucose 119 H POC Glucose Lactic Acid Calcium 7.5 L 7.1 L Phosphorus 2.00 L 2.10 L Magnesium 1.50 L Total Bilirubin AST Total Protein 4.3 L Albumin 2.1 L Crossmatch 04/29/18 04/29/18 04/29/18 05:18 05:18 17:49 WBC 12.0 H RBC Hgb Hct RDW 16.0 H Lymph % (Auto) [place] % (Auto) Lymph # Seg Neutrophils % Seg Neuts % (Manual) 87.0 H Lymphocytes % (Manual) 10.0 L Seg Neutrophils # Man 10.4 H Lymphocytes # (Manual) PT INR VBG pH Sodium 135 L Potassium Chloride Carbon Dioxide BUN Creatinine 0.2 L Glucose 120 H POC Glucose 108 H Lactic Acid Calcium 7.5 L Phosphorus Magnesium Total Bilirubin AST Total Protein Albumin Crossmatch 04/30/18 04/30/18 04/30/18 00:03 05:18 05:41 WBC RBC Hgb Hct RDW Lymph % (Auto) [place] % (Auto) Lymph # Seg Neutrophils % Seg Neuts % (Manual) Lymphocytes % (Manual) Seg Neutrophils # Man Lymphocytes # (Manual) PT INR VBG pH Sodium 133 L Potassium Chloride Carbon Dioxide BUN Creatinine 0.2 L Glucose 119 H POC Glucose 112 H 110 H Lactic Acid Calcium 7.5 L Phosphorus Magnesium Total Bilirubin AST Total Protein Albumin Crossmatch 04/30/18 05:41 WBC RBC 3.60 L Hgb Hct RDW 16.0 H Lymph % (Auto) [place] % (Auto) Lymph # Seg Neutrophils % Seg Neuts % (Manual) 88.0 H Lymphocytes % (Manual) 8.0 L Seg Neutrophils # Man Lymphocytes # (Manual) 0.7 L PT INR VBG pH Sodium Potassium Chloride Carbon Dioxide BUN Creatinine Glucose POC Glucose Lactic Acid Calcium Phosphorus Magnesium Total Bilirubin AST Total Protein Albumin Crossmatch Allied health notes reviewed: nursing
[2018-04-30] MEDS ORDERED: TPN ADULT 1,800 ML IV SCH (20:00)
[2018-04-30] MEDS: LOPRESSOR IV PRN (23:03)
[2018-05-01] MEDS: DILAUDID IV PRN ×7 (00:36→21:16)
[2018-05-01] MEDS: LOPRESSOR IV PRN (04:59)
[2018-05-01] MEDS: FLAGYL 500 MG/100 ML 500 MG/100 ML BAG IV SCH ×3 (05:00→21:13)
[2018-05-01 05:24] LABS: BUN/Creatinine Ratio 50; Blood Urea Nitrogen 10 mg/dL (7-17); Calcium 7.6 mg/dL (8.4-10.2); Hemolysis Index 3
[2018-05-01] MEDS: ZOFRAN IV PRN ×2 (06:38→21:17)
--- NOTE | 2018-05-01 07:28 | Progress Note ---
Assessment and Plan POD # 6 Pt feeling well. Sump drain 300 cc /24 hrs Abd soft stable continue present care Selected Entries 05/01/18 05/01/18 06:19 06:32 Temperature 98.3 F Pulse Rate 72 Respiratory 18 Rate Laboratory Tests 05/01/18 04:45 Sodium 132 L Potassium 4.1 Chloride 99.0 Carbon Dioxide 26 Anion Gap 11 Glucose 101 H Objective Vital Signs - 12hr 04/30/18 04/30/18 04/30/18 20:45 20:46 21:03 Temperature 97.3 F L Pulse Rate 114 H Pulse Rate [ 110 H Bilateral] Respiratory 16 Rate Respiratory 18 Rate [Bilateral ] Blood Pressure 171/93 Blood Pressure [Right] O2 Sat by Pulse 93 Oximetry 04/30/18 04/30/18 04/30/18 21:07 21:13 21:18 Temperature Pulse Rate Pulse Rate [ 105 H Bilateral] Respiratory 17 Rate Respiratory 18 Rate [Bilateral ] Blood Pressure Blood Pressure [Right] O2 Sat by Pulse 94 Oximetry 04/30/18 04/30/18 04/30/18 21:31 21:48 23:03 Temperature 97.9 F Pulse Rate 109 H 116 H Pulse Rate [ Bilateral] Respiratory 16 17 Rate Respiratory Rate [Bilateral ] Blood Pressure 177/97 Blood Pressure 180/92 [Right] O2 Sat by Pulse 94 Oximetry 04/30/18 05/01/18 05/01/18 23:14 00:08 00:36 Temperature Pulse Rate 93 H Pulse Rate [ Bilateral] Respiratory 16 17 17 Rate Respiratory Rate [Bilateral ] Blood Pressure Blood Pressure 175/93 [Right] O2 Sat by Pulse 97 97 Oximetry 05/01/18 05/01/18 05/01/18 00:49 00:50 00:51 Temperature 98.0 F Pulse Rate 101 H 99 H Pulse Rate [ Bilateral] Respiratory 16 Rate Respiratory Rate [Bilateral ] Blood Pressure 173/90 Blood Pressure [Right] O2 Sat by Pulse 97 97 Oximetry 05/01/18 05/01/18 05/01/18 04:05 04:07 04:08 Temperature 97.8 F Pulse Rate 111 H 111 H Pulse Rate [ Bilateral] Respiratory 17 16 Rate Respiratory Rate [Bilateral ] Blood Pressure 192/92 Blood Pressure [Right] O2 Sat by Pulse 95 96 Oximetry 05/01/18 05/01/18 05/01/18 04:59 05:11 06:19 Temperature 97.3 F L Pulse Rate 111 H 94 H 72 Pulse Rate [ Bilateral] Respiratory 16 18 Rate Respiratory Rate [Bilateral ] Blood Pressure 174/90 Blood Pressure 158/78 118/81 [Right] O2 Sat by Pulse 97 99 Oximetry 05/01/18 06:32 Temperature 98.3 F Pulse Rate Pulse Rate [ Bilateral] Respiratory Rate Respiratory Rate [Bilateral ] Blood Pressure Blood Pressure [Right] O2 Sat by Pulse Oximetry - Labs 04/30/18 05:41 05/01/18 04:45 Diabetes panel 05/01/18 Range/Units 04:45 Sodium 132 L (137-145) mmol/L Potassium 4.1 (3.6-5.0) mmol/L Chloride 99.0 (98-107) mmol/L Carbon Dioxide 26 (22-30) mmol/L BUN 10 (7-17) mg/dL Creatinine 0.2 L (0.7-1.2) mg/dL Glucose 101 H (65-100) mg/dL Calcium 7.6 L (8.4-10.2) mg/dL Calcium panel 05/01/18 Range/Units 04:45 Calcium 7.6 L (8.4-10.2) mg/dL Phosphorus 3.00 (2.5-4.5) mg/dL Pituitary panel 05/01/18 Range/Units 04:45 Sodium 132 L (137-145) mmol/L Potassium 4.1 (3.6-5.0) mmol/L Chloride 99.0 (98-107) mmol/L Carbon Dioxide 26 (22-30) mmol/L BUN 10 (7-17) mg/dL Creatinine 0.2 L (0.7-1.2) mg/dL Glucose 101 H (65-100) mg/dL Calcium 7.6 L (8.4-10.2) mg/dL Adrenal panel 05/01/18 Range/Units 04:45 Sodium 132 L (137-145) mmol/L Potassium 4.1 (3.6-5.0) mmol/L Chloride 99.0 (98-107) mmol/L Carbon Dioxide 26 (22-30) mmol/L BUN 10 (7-17) mg/dL Creatinine 0.2 L (0.7-1.2) mg/dL Glucose 101 H (65-100) mg/dL Calcium 7.6 L (8.4-10.2) mg/dL
[2018-05-01] MEDS: PEPCID IV SCH ×3 (07:29→21:13)
[2018-05-01] MEDS: PROVENTIL IH SCH ×4 (07:30→19:11)
[2018-05-01] MEDS: COZAAR PO SCH ×2 (08:05→10:00)
[2018-05-01] MEDS: DIFLUCAN 200 MG/100 ML BAG IV SCH (10:00)
[2018-05-01] MEDS ORDERED: NON-FORMULARY (Losartan 50 MG) PO SCH (10:00)
--- NOTE | 2018-05-01 11:07 | Progress Note ---
Assessment and Plan Cultures: 04/18/2018 blood cultures: no growth thus far 04/18/2018 urine culture: No growth 04/19/2018 intra-abdominal culture: E.Coli and Beta hemolytic Group C 04/25/2018 intra-abdominal culture: E.coli and Katerine albicans A/P: 57-year-old female with hypertension, neurofibromatosis, hepatitis C, COPD, nicotine dependence admitted with: 1) Sepsis Resolved, secondary to gangrenous and perforated appendix causing intra-abdominal/pelvic abscess: Status post exploratory laparotomy and evacuati on of pelvic abscess, back to OR on 04/25/2018 for drain dislodgement. Clinically stable, no fevers. Continue current abx, based on culture growth of E.coli and Katerine albicans. Slow bowel recovery. 2) Chronic hep C: untreated. will need outpatient follow up. 3) Extensive tobacco abuse: encouraged to quit. Recs: - continue current abx: Ceftriaxone, Flagyl and Fluconazole ending 05-02-18, D6 of D7, last dose tomorrow Dr. Aly will be production cloth cutter this weekend, . Please call for questions. Ana Paula Segovia NP [facility] M: [phone] O:[phone] Subjective Date of service: 05/01/18 Principal diagnosis: Sepsis; Ex-lap appendectomy and evacuation of pelvic abscess; Peritonitis Interval history: Patient seen and examined. patient laying in bed. No fevers or generalized pain. Objective - Exam Narrative Exam: Constitutional: Awake, alert . no acute distress Head, Ears, Nose: Normocephalic, atraumatic. External ears, nose normal Eyes: Conjunctivae/corneas clear. No icterus. No ptosis. Neck: Supple, no meningeal signs Oral: poor dentition, no thrush Cardiovascular: S1, S2 normal. Respiratory: Good air entry, clear to auscultation bilaterally, 02 @ 4L GI:, bowel sounds, NG tube discontinued Musculoskeletal: No pedal edema, no cyanosis. Skin: No rash or abscess. Tattoos +, fibromas + Hem/Lymphatic: No palpable cervical or supraclavicular nodes. No lymphangitis Psych: Mood ok. Affect normal Neurological: Awake, alert, oriented. No gross abnormality - Constitutional Vitals: Vital Signs Temp Pulse Resp BP Pulse Ox 98.1 F 102 H 18 178/88 97 05/01/18 07:45 05/01/18 08:05 05/01/18 07:45 05/01/18 08:05 05/01/18 07:45 Temperature -Last 24 Hours Temperature 98.1 F Temperature 98.3 F Temperature 97.3 F Temperature 97.8 F Temperature 98.0 F Temperature 97.9 F Temperature 97.3 F Temperature 98.1 F Temperature 97.9 F - Labs CBC & Chem 7: 04/30/18 05:41 05/01/18 04:45 Labs: Abnormal lab results 05/01/18 05/01/18 05/01/18 Range/Units 00:39 04:45 06:30 Sodium 132 L (137-145) mmol/L Creatinine 0.2 L (0.7-1.2) mg/dL Glucose 101 H (65-100) mg/dL POC Glucose 119 H 126 H (70-105) Calcium 7.6 L (8.4-10.2) mg/dL
[2018-05-01] MEDS: ROCEPHIN/NS 2 GM/100 ML 2 GM/100 ML BAG IV SCH (11:10)
--- NOTE | 2018-05-01 14:33 | Progress Note ---
Assessment and Plan Sepsis. Etiology secondary to gangrenous and perforated appendix causing intra- abdominal/pelvic abscess. status post exploratory laparotomy with appendectomy and evacuation of pelvic abscess. Intrabdominal sepsis/peritonitis Ruptured appendix with abdominal abscess Tobacco abuse disorder COPD Neurofibromatosis - continue supplemental oxygen to keep O2 sats > 90% - continue bronchodilators with pulmonary hygiene per RT - advance diet per surgeon (on TPN now) - continue aspiration precautions - abdominal drain to suction (adjust per surgeon) - complete antibiotics course and adjust per ID - follow cultures and clinically for AB's de-escalation - IV fluids per surgeon - VTE prophylaxis - PT/OT/Mobility, OOB to chair daily - continue incentive spirometry - continue nicotine withdrawal precautions - Smoking cessation counselling was done at the bedside again today - Analgesia, pain management - NPO for now, serial abdominal exams ... re-evaluate in am & prn Subjective Date of service: 05/01/18 Principal diagnosis: Sepsis; Ex-lap appendectomy and evacuation of pelvic abscess; Peritonitis Interval history: Patient is seen today for: Sepsis; status post exploratory laparotomy with appendectomy and evacuation of pelvic abscess; Intrabdominal sepsis/peritonitis; Ruptured appendix with abdominal abscess Seen and examined at bedside; 24hour events reviewed; nursing and respiratory care staff consulted; no adverse overnight events reported to me; resting in bed; remains on supplemental oxygen; No N/V/F/C; denies acute abdominal pain Objective Vital Signs - 12hr 05/01/18 05/01/18 05/01/18 04:05 04:07 04:08 Temperature 97.8 F Pulse Rate 111 H 111 H Respiratory 17 16 Rate Blood Pressure 192/92 Blood Pressure [Right] O2 Sat by Pulse 95 96 Oximetry 05/01/18 05/01/18 05/01/18 04:59 05:11 06:19 Temperature 97.3 F L Pulse Rate 111 H 94 H 72 Respiratory 16 18 Rate Blood Pressure 174/90 Blood Pressure 158/78 118/81 [Right] O2 Sat by Pulse 97 99 Oximetry 05/01/18 05/01/18 05/01/18 06:32 07:45 08:05 Temperature 98.3 F 98.1 F Pulse Rate 103 H 102 H Respiratory 18 Rate Blood Pressure 178/88 178/88 Blood Pressure [Right] O2 Sat by Pulse 97 Oximetry 05/01/18 11:19 Temperature 97.4 F L Pulse Rate 105 H Respiratory 18 Rate Blood Pressure 148/79 Blood Pressure [Right] O2 Sat by Pulse 97 Oximetry Constitutional: no acute distress, alert, other (chronically ill looking this middle aged CF, normocephalic) Eyes: non-icteric ENT: oropharynx moist, other (Mallampati 2) Neck: supple, no lymphadenopathy, no JVD Effort: mildly labored Ascultation: Bilateral: diminished breath sounds, rhonchi (scant in bases) Percussion: Bilateral: not dull Cardiovascular: regular rate and rhythm Gastrointestinal: normoactive bowel sounds, soft, tender (bhargav-op site), non- distended, other (Drain in place with non-bloody effluent) Integumentary: other (poor turgor; ? neurofibromatous nodules over body) Extremities: no cyanosis, no edema, pink and warm, pulses normal Neurologic: normal mental status, non-focal exam, pupils equal and round, motor strength normal and Psychiatric: mood appropriate, anxious CBC and BMP: 04/30/18 05:41 05/02/18 04:55 ABG, PT/INR, D-dimer: ABG POC ABG pH 7.367 (7.35-7.45) 04/19/18 00:19 POC ABG pCO2 36.8 (35-45) 04/19/18 00:19 POC ABG pO2 84 (80-105) 04/19/18 00:19 POC ABG HCO3 21.1 04/19/18 00:19 POC ABG Total CO2 22 04/19/18 00:19 POC ABG O2 Sat 96 04/19/18 00:19 PT/INR, D-dimer PT 15.3 Sec. (12.2-14.9) H 04/22/18 05:19 INR 1.17 (0.87-1.13) H 04/22/18 05:19 Abnormal lab findings: Abnormal Labs 04/18/18 04/18/18 04/18/18 14:30 14:30 14:30 WBC 18.6 H RBC Hgb Hct RDW Lymph % (Auto) Hand % (Auto) Lymph # Seg Neutrophils % Seg Neuts % (Manual) 79.0 H Lymphocytes % (Manual) 4.0 L Seg Neutrophils # Man 14.7 H Lymphocytes # (Manual) 0.7 L PT 16.3 H INR 1.27 H VBG pH Sodium 121 L Potassium 3.0 L Chloride 78.0 L Carbon Dioxide BUN Creatinine 0.5 L Glucose 110 H POC Glucose Lactic Acid Calcium Phosphorus Magnesium Total Bilirubin 1.30 H AST 42 H Total Protein Albumin 3.1 L Crossmatch 04/18/18 04/18/18 04/18/18 14:30 14:30 23:59 WBC RBC Hgb Hct RDW 15.8 H Lymph % (Auto) Hand % (Auto) Lymph # Seg Neutrophils % Seg Neuts % (Manual) 78.0 H Lymphocytes % (Manual) 6.0 L Seg Neutrophils # Man Lymphocytes # (Manual) 0.5 L PT INR VBG pH 7.439 H Sodium Potassium Chloride Carbon Dioxide BUN Creatinine Glucose POC Glucose Lactic Acid 3.60 H* Calcium Phosphorus Magnesium Total Bilirubin AST Total Protein Albumin Crossmatch 04/18/18 04/19/18 04/19/18 23:59 05:19 05:19 WBC 15.0 H RBC Hgb Hct RDW 15.3 H Lymph % (Auto) Hand % (Auto) Lymph # Seg Neutrophils % Seg Neuts % (Manual) Lymphocytes % (Manual) 5.0 L Seg Neutrophils # Man 8.3 H Lymphocytes # (Manual) 0.8 L PT INR VBG pH Sodium 130 L D 133 L Potassium 3.5 L 3.3 L Chloride Carbon Dioxide 20 L D BUN Creatinine 0.5 L 0.6 L Glucose 140 H 115 H POC Glucose Lactic Acid Calcium 7.5 L 7.4 L Phosphorus Magnesium Total Bilirubin AST Total Protein 4.4 L D 4.1 L Albumin 2.0 L 1.9 L Crossmatch 04/19/18 04/19/18 04/20/18 05:19 13:05 05:18 WBC RBC Hgb Hct RDW Lymph % (Auto) Hand % (Auto) Lymph # Seg Neutrophils % Seg Neuts % (Manual) Lymphocytes % (Manual) Seg Neutrophils # Man Lymphocytes # (Manual) PT 19.4 H 17.4 H INR 1.59 H 1.38 H VBG pH Sodium Potassium Chloride Carbon Dioxide BUN Creatinine Glucose POC Glucose Lactic Acid Calcium Phosphorus Magnesium Total Bilirubin AST Total Protein Albumin Crossmatch See Detail 04/20/18 04/20/18 04/21/18 13:47 13:47 04:52 WBC RBC 3.29 L 3.10 L Hgb 9.6 L 8.8 L Hct 28.1 L D 26.6 L RDW 15.3 H 15.4 H Lymph % (Auto) 5.6 L Hand % (Auto) Lymph # 0.4 L Seg Neutrophils % 87.3 H Seg Neuts % (Manual) Lymphocytes % (Manual) Seg Neutrophils # Man Lymphocytes # (Manual) PT INR VBG pH Sodium Potassium Chloride Carbon Dioxide BUN Creatinine 0.3 L Glucose 102 H POC Glucose Lactic Acid Calcium 8.0 L Phosphorus Magnesium Total Bilirubin AST Total Protein Albumin Crossmatch 04/21/18 04/22/18 04/22/18 04:52 05:19 05:19 WBC RBC 3.64 L Hgb Hct RDW Lymph % (Auto) 8.5 L Hand % (Auto) 9.9 H Lymph # 0.6 L Seg Neutrophils % 81.0 H Seg Neuts % (Manual) Lymphocytes % (Manual) Seg Neutrophils # Man Lymphocytes # (Manual) PT 15.3 H INR 1.17 H VBG pH Sodium Potassium 3.2 L Chloride Carbon Dioxide BUN Creatinine 0.3 L Glucose POC Glucose Lactic Acid Calcium 7.6 L Phosphorus Magnesium Total Bilirubin AST Total Protein Albumin Crossmatch 04/22/18 04/24/18 04/24/18 05:19 07:19 07:19 WBC RBC Hgb Hct RDW Lymph % (Auto) Hand % (Auto) Lymph # Seg Neutrophils % Seg Neuts % (Manual) Lymphocytes % (Manual) Seg Neutrophils # Man Lymphocytes # (Manual) PT INR VBG pH Sodium Potassium 3.4 L 2.9 L* Chloride Carbon Dioxide BUN Creatinine 0.3 L 0.3 L Glucose 103 H POC Glucose Lactic Acid Calcium 7.7 L 7.5 L Phosphorus Magnesium 1.60 L Total Bilirubin AST Total Protein 4.3 L Albumin 2.2 L Crossmatch 04/24/18 04/25/18 04/25/18 07:23 06:28 06:28 WBC RBC Hgb Hct RDW 15.3 H 15.9 H Lymph % (Auto) 10.1 L Hand % (Auto) Lymph # 0.8 L Seg Neutrophils % 80.6 H Seg Neuts % (Manual) Lymphocytes % (Manual) 9.0 L Seg Neutrophils # Man Lymphocytes # (Manual) 0.7 L PT INR VBG pH Sodium Potassium 3.0 L Chloride Carbon Dioxide BUN 5 L Creatinine 0.2 L Glucose 108 H POC Glucose Lactic Acid Calcium 7.4 L Phosphorus Magnesium Total Bilirubin AST Total Protein 4.6 L Albumin 2.5 L Crossmatch 04/25/18 04/26/18 04/26/18 06:28 05:45 05:45 WBC 11.9 H RBC Hgb Hct RDW 16.2 H Lymph % (Auto) Hand % (Auto) Lymph # Seg Neutrophils % Seg Neuts % (Manual) Lymphocytes % (Manual) Seg Neutrophils # Man Lymphocytes # (Manual) PT INR VBG pH Sodium Potassium Chloride Carbon Dioxide BUN 5 L Creatinine 0.2 L Glucose 119 H POC Glucose Lactic Acid Calcium 7.7 L Phosphorus 2.00 L 2.20 L Magnesium Total Bilirubin AST Total Protein Albumin Crossmatch 04/27/18 04/28/18 04/28/18 05:33 06:00 06:00 WBC 11.2 H RBC Hgb Hct RDW 16.0 H Lymph % (Auto) Hand % (Auto) Lymph # Seg Neutrophils % Seg Neuts % (Manual) 92.0 H Lymphocytes % (Manual) 5.0 L Seg Neutrophils # Man 10.3 H Lymphocytes # (Manual) 0.6 L PT INR VBG pH Sodium Potassium 3.4 L 3.1 L Chloride Carbon Dioxide BUN 6 L 4 L Creatinine 0.2 L 0.2 L Glucose 119 H POC Glucose Lactic Acid Calcium 7.5 L 7.1 L Phosphorus 2.00 L 2.10 L Magnesium 1.50 L Total Bilirubin AST Total Protein 4.3 L Albumin 2.1 L Crossmatch 04/29/18 04/29/18 04/29/18 05:18 05:18 17:49 WBC 12.0 H RBC Hgb Hct RDW 16.0 H Lymph % (Auto) Hand % (Auto) Lymph # Seg Neutrophils % Seg Neuts % (Manual) 87.0 H Lymphocytes % (Manual) 10.0 L Seg Neutrophils # Man 10.4 H Lymphocytes # (Manual) PT INR VBG pH Sodium 135 L Potassium Chloride Carbon Dioxide BUN Creatinine 0.2 L Glucose 120 H POC Glucose 108 H Lactic Acid Calcium 7.5 L Phosphorus Magnesium Total Bilirubin AST Total Protein Albumin Crossmatch 04/30/18 04/30/18 04/30/18 00:03 05:18 05:41 WBC RBC Hgb Hct RDW Lymph % (Auto) Hand % (Auto) Lymph # Seg Neutrophils % Seg Neuts % (Manual) Lymphocytes % (Manual) Seg Neutrophils # Man Lymphocytes # (Manual) PT INR VBG pH Sodium 133 L Potassium Chloride Carbon Dioxide BUN Creatinine 0.2 L Glucose 119 H POC Glucose 112 H 110 H Lactic Acid Calcium 7.5 L Phosphorus Magnesium Total Bilirubin AST Total Protein Albumin Crossmatch 04/30/18 05/01/18 05/01/18 05:41 00:39 04:45 WBC RBC 3.60 L Hgb Hct RDW 16.0 H Lymph % (Auto) Hand % (Auto) Lymph # Seg Neutrophils % Seg Neuts % (Manual) 88.0 H Lymphocytes % (Manual) 8.0 L Seg Neutrophils # Man Lymphocytes # (Manual) 0.7 L PT INR VBG pH Sodium 132 L Potassium Chloride Carbon Dioxide BUN Creatinine 0.2 L Glucose 101 H POC Glucose 119 H Lactic Acid Calcium 7.6 L Phosphorus Magnesium Total Bilirubin AST Total Protein Albumin Crossmatch 05/01/18 06:30 WBC RBC Hgb Hct RDW Lymph % (Auto) Hand % (Auto) Lymph # Seg Neutrophils % Seg Neuts % (Manual) Lymphocytes % (Manual) Seg Neutrophils # Man Lymphocytes # (Manual) PT INR VBG pH Sodium Potassium Chloride Carbon Dioxide BUN Creatinine Glucose POC Glucose 126 H Lactic Acid Calcium Phosphorus Magnesium Total Bilirubin AST Total Protein Albumin Crossmatch Allied health notes reviewed: nursing
--- NOTE | 2018-05-01 15:12 | Progress Note ---
Assessment and Plan Assessment and plan: Sepsis. Etiology secondary to gangrenous and perforated appendix causing intra- abdominal/pelvic abscess. Patient is status post exploratory laparotomy with appendectomy and evacuation of pelvic abscess. ID following. Continue antibiotics. Ceftriaxone, Flagyl and Fluconazole ending 05-02-18, D6 of D7 (tentatively plan for 7 days from last surgery dated 04/25/2018) Perforated appendix s/p exploratory lap. Cont. TPN and IV abx dislodged drain, s/p taken to OR , exploratory lap, irrigation of intraabd cavity and placement of sump drain on 04/25 OOB as tiffanie Chronic hep C. Untreated. Outpatient follow-up. Hypertension. Continue antihypertensive medications. COPD. Compensated. Hypokalemia. Replete potassium as needed Hyponatremia. Change IV fluid to normal saline. Neurofibromatosis Tobacco abuse. Patient counseled on smoking cessation. History Interval history: The patient is a 57-year-old female with hypertension, neurofibromatosis, hepatitis C, COPD, nicotine dependence presented to the emergency room on 04/18/18 with complaints of abdominal pain going on for [address] scan obtained in the emergency room revealed a ruptured appendix with associated intra-abdominal abscess. General surgery was consulted and the patient underwent an emergent exploratory laparotomy with evacuation of pelvic abscess. She was noted to have a gangrenous, perforated appendix eroding including into the small bowel. As per the op note, the abscess could not be drained as the entire abscess and inflammatory process had trapped the small bowel, which was mobilized and she underwent an ileocolic anastomosis. The patient went back to the OR on 04/25/18 for drain dislodgment. Hospitalist Physical - Constitutional Vitals: Temp Pulse Resp BP Pulse Ox 97.4 F L 105 H 18 148/79 97 05/01/18 11:19 05/01/18 11:19 05/01/18 11:19 05/01/18 11:19 05/01/18 11:19 General appearance: Present: no acute distress - EENT Eyes: Present: PERRL, EOM intact ENT: hearing intact, clear oral mucosa, dentition normal - Neck Neck: Present: supple, normal ROM - Respiratory Respiratory effort: normal Respiratory: bilateral: CTA - Cardiovascular Rhythm: regular Heart Sounds: Present: S1 & S2. Absent: gallop, rub - Extremities Extremities: no ischemia, No edema, Full ROM - Abdominal General gastrointestinal: soft, non-tender, non-distended, normal bowel sounds - Integumentary Integumentary: Present: clear, warm, dry - Neurologic Neurologic: CNII-XII intact, moves all extremities Results - Labs CBC & Chem 7: 04/30/18 05:41 05/01/18 04:45 Labs: Laboratory Last Values WBC 8.8 K/mm3 (4.5-11.0) 04/30/18 05:41 RBC 3.60 M/mm3 (3.65-5.03) L 04/30/18 05:41 Hgb 10.4 gm/dl (10.1-14.3) 04/30/18 05:41 Hct 30.6 % (30.3-42.9) 04/30/18 05:41 MCV 85 fl (79-97) 04/30/18 05:41 MCH 29 pg (28-32) 04/30/18 05:41 MCHC 34 % (30-34) 04/30/18 05:41 RDW 16.0 % (13.2-15.2) H 04/30/18 05:41 Plt Count 299 K/mm3 (140-440) 04/30/18 05:41 Lymph % (Auto) 10.1 % (13.4-35.0) L 04/24/18 07:23 [place] % (Auto) 7.3 % (0.0-7.3) 04/24/18 07:23 Eos % (Auto) 0.4 % (0.0-4.3) 04/24/18 07:23 Baso % (Auto) 1.6 % (0.0-1.8) 04/24/18 07:23 Lymph # 0.8 K/mm3 (1.2-5.4) L 04/24/18 07:23 [place] # 0.6 K/mm3 (0.0-0.8) 04/24/18 07:23 Eos # 0.0 K/mm3 (0.0-0.4) 04/24/18 07:23 Baso # 0.1 K/mm3 (0.0-0.1) 04/24/18 07:23 Add Manual Diff Complete 04/30/18 05:41 Total Counted 100 04/30/18 05:41 Seg Neutrophils % 80.6 % (40.0-70.0) H 04/24/18 07:23 Seg Neuts % (Manual) 88.0 % (40.0-70.0) H 04/30/18 05:41 Band Neutrophils % 1.0 % 04/30/18 05:41 Lymphocytes % (Manual) 8.0 % (13.4-35.0) L 04/30/18 05:41 Reactive Lymphs % (Man) 0 % 04/30/18 05:41 Monocytes % (Manual) 3.0 % (0.0-7.3) 04/30/18 05:41 Eosinophils % (Manual) 0 % (0.0-4.3) 04/30/18 05:41 Basophils % (Manual) 0 % (0.0-1.8) 04/30/18 05:41 Metamyelocytes % 0 % 04/30/18 05:41 Myelocytes % 0 % 04/30/18 05:41 Promyelocytes % 0 % 04/30/18 05:41 Blast Cells % 0 % 04/30/18 05:41 Nucleated RBC % Not Reportable 04/30/18 05:41 Seg Neutrophils # 6.5 K/mm3 (1.8-7.7) 04/24/18 07:23 Seg Neutrophils # Man 7.7 K/mm3 (1.8-7.7) 04/30/18 05:41 Band Neutrophils # 0.1 K/mm3 04/30/18 05:41 Lymphocytes # (Manual) 0.7 K/mm3 (1.2-5.4) L 04/30/18 05:41 Abs React Lymphs (Man) 0.0 K/mm3 04/30/18 05:41 Monocytes # (Manual) 0.3 K/mm3 (0.0-0.8) 04/30/18 05:41 Eosinophils # (Manual) 0.0 K/mm3 (0.0-0.4) 04/30/18 05:41 Basophils # (Manual) 0.0 K/mm3 (0.0-0.1) 04/30/18 05:41 Metamyelocytes # 0.0 K/mm3 04/30/18 05:41 Myelocytes # 0.0 K/mm3 04/30/18 05:41 Promyelocytes # 0.0 K/mm3 04/30/18 05:41 Blast Cells # 0.0 K/mm3 04/30/18 05:41 WBC Morphology Not Reportable 04/30/18 05:41 Hypersegmented Neuts Not Reportable 04/30/18 05:41 Hyposegmented Neuts Not Reportable 04/30/18 05:41 Hypogranular Neuts Not Reportable 04/30/18 05:41 Smudge Cells Not Reportable 04/30/18 05:41 Toxic Granulation Not Reportable 04/30/18 05:41 Toxic Vacuolation Not Reportable 04/30/18 05:41 Dohle Bodies Not Reportable 04/30/18 05:41 Pelger-Huet Anomaly Not Reportable 04/30/18 05:41 Nicole Rods Not Reportable 04/30/18 05:41 Platelet Estimate Appears normal 04/30/18 05:41 Clumped Platelets Not Reportable 04/30/18 05:41 Plt Clumps, EDTA Not Reportable 04/30/18 05:41 Large Platelets Not Reportable 04/30/18 05:41 Giant Platelets Not Reportable 04/30/18 05:41 Platelet Satelliting Not Reportable 04/30/18 05:41 Plt Morphology Comment Not Reportable 04/30/18 05:41 RBC Morphology Not Reportable 04/30/18 05:41 Dimorphic RBCs Not Reportable 04/30/18 05:41 Polychromasia Not Reportable 04/30/18 05:41 Hypochromasia 1+ 04/30/18 05:41 Poikilocytosis Not Reportable 04/30/18 05:41 Anisocytosis 1+ 04/30/18 05:41 Microcytosis Not Reportable 04/30/18 05:41 Macrocytosis Not Reportable 04/30/18 05:41 Spherocytes Not Reportable 04/30/18 05:41 Pappenheimer Bodies Not Reportable 04/30/18 05:41 Sickle Cells Not Reportable 04/30/18 05:41 Target Cells Not Reportable 04/30/18 05:41 Tear Drop Cells Not Reportable 04/30/18 05:41 Ovalocytes Few 04/30/18 05:41 Stomatocytes Few 04/29/18 05:18 Helmet Cells Not Reportable 04/30/18 05:41 [place] Bodies Not Reportable 04/30/18 05:41 [place] Rings Not Reportable 04/30/18 05:41 Philip Cells Not Reportable 04/30/18 05:41 Bite Cells Not Reportable 04/30/18 05:41 Crenated Cell Not Reportable 04/30/18 05:41 Elliptocytes Not Reportable 04/30/18 05:41 Acanthocytes (Spur) Not Reportable 04/30/18 05:41 Rouleaux Not Reportable 04/30/18 05:41 Hemoglobin C Crystals Not Reportable 04/30/18 05:41 Schistocytes Not Reportable 04/30/18 05:41 Malaria parasites Not Reportable 04/30/18 05:41 Hung Bodies Not Reportable 04/30/18 05:41 Hem Pathologist Commnt No 04/30/18 05:41 PT 15.3 Sec. (12.2-14.9) H 04/22/18 05:19 INR 1.17 (0.87-1.13) H 04/22/18 05:19 APTT 29.4 Sec. (24.2-36.6) 04/19/18 05:19 POC ABG pH 7.367 (7.35-7.45) 04/19/18 00:19 POC ABG pCO2 36.8 (35-45) 04/19/18 00:19 POC ABG pO2 84 (80-105) 04/19/18 00:19 POC ABG HCO3 21.1 04/19/18 00:19 POC ABG Total CO2 22 04/19/18 00:19 POC ABG O2 Sat 96 04/19/18 00:19 POC ABG Base Excess -4 04/19/18 00:19 VBG pH 7.439 (7.320-7.420) H 04/18/18 14:30 FiO2 32 % 04/19/18 00:19 Sodium 132 mmol/L (137-145) L 05/01/18 04:45 Potassium 4.1 mmol/L (3.6-5.0) 05/01/18 04:45 Chloride 99.0 mmol/L (98-107) 05/01/18 04:45 Carbon Dioxide 26 mmol/L (22-30) 05/01/18 04:45 Anion Gap 11 mmol/L 05/01/18 04:45 BUN 10 mg/dL (7-17) 05/01/18 04:45 Creatinine 0.2 mg/dL (0.7-1.2) L 05/01/18 04:45 Estimated GFR > 60 ml/min 05/01/18 04:45 BUN/Creatinine Ratio 50 % 05/01/18 04:45 Glucose 101 mg/dL (65-100) H 05/01/18 04:45 POC Glucose 126 (70-105) H 05/01/18 06:30 Lactic Acid 0.90 mmol/L (0.7-2.0) 04/18/18 18:41 Calcium 7.6 mg/dL (8.4-10.2) L 05/01/18 04:45 Phosphorus 3.00 mg/dL (2.5-4.5) 05/01/18 04:45 Magnesium 1.90 mg/dL (1.7-2.3) 05/01/18 04:45 Total Bilirubin 0.40 mg/dL (0.1-1.2) 04/28/18 06:00 AST 26 units/L (5-40) 04/28/18 06:00 ALT 20 units/L (7-56) 04/28/18 06:00 Alkaline Phosphatase 73 units/L (35-129) 04/28/18 06:00 Total Protein 4.3 g/dL (6.3-8.2) L 04/28/18 06:00 Albumin 2.1 g/dL (3.9-5) L 04/28/18 06:00 Albumin/Globulin Ratio 1.0 % 04/28/18 06:00 Urine Color Yellow (Yellow) 04/20/18 13:35 Urine Turbidity Clear (Clear) 04/20/18 13:35 Urine pH 5.0 (5.0-7.0) 04/20/18 13:35 Ur Specific [place] 1.011 (1.003-1.030) 04/20/18 13:35 Urine Protein <15 mg/dl mg/dL (Negative) 04/20/18 13:35 Urine Glucose (UA) Neg mg/dL (Negative) 04/20/18 13:35 Urine Ketones 20 mg/dL (Negative) 04/20/18 13:35 Urine Blood Sm (Negative) 04/20/18 13:35 Urine Nitrite Neg (Negative) 04/20/18 13:35 Urine Bilirubin Neg (Negative) 04/20/18 13:35 Urine Urobilinogen 2.0 mg/dL (<2.0) 04/20/18 13:35 Ur Leukocyte Esterase Tr (Negative) 04/20/18 13:35 Urine WBC (Auto) 2.0 /HPF (0.0-6.0) 04/20/18 13:35 Urine RBC (Auto) 1.0 /HPF (0.0-6.0) 04/20/18 13:35 U Epithel Cells (Auto) 2.0 /HPF (0-13.0) 04/18/18 16:45 Urine Bacteria (Auto) 2+ /HPF (Negative) 04/18/18 16:45 Urine Mucus Few /HPF 04/20/18 13:35 Blood Type O POSITIVE 04/19/18 13:05 Antibody Screen Negative 04/19/18 13:05 Crossmatch See Detail 04/19/18 13:05 Nutrition/Malnutrition Assess - Dietary Evaluation Nutrition/Malnutrition Findings: Nutrition Notes Start: 04/24/18 09:13 Freq: Status: Active Protocol: Document 05/01/18 08:14 TW (Rec: 05/01/18 09:02 [id number]) Co-Sign 05/01/18 08:14 LP Nutrition Notes Initial or Follow up Reassessment Current Diagnosis COPD Sepsis Hypertension Other Pertinent Diagnosis perforated appendix, Hepatitis , Midline abdominal wound Current Diet TPN at 75mL/hr Labs/Tests K 4.1 P 3 Na 132 Pertinent Medications D5/0.45NS at 75mL/hr Height 5 ft 1 in Weight 54.8 kg [place] Body Weight (kg) 47.72 BMI 22.8 Subjective/Other Information CPN day 5. CPN running at 75mL /hr. D5/0.45NS running at time of visit. Per MD note, fluid is being changed to normal saline. Pt requesting popsicle . Percent of energy/protein needs met: 100%/100% Burn Absent Trauma Absent #2 Nutrition Diagnosis Increased nutrient needs ( specify in comment below) Diagnosis Progress(for reassessment Continues documentation) #1 Nutrition Diagnosis Inadequate oral intake Diagnosis Progress(for reassessment Continues documentation) Is patient on ventilator? No Is Patient Ambulatory and/or Out of Bed No REE-([place]-confined to bed) 1301.076 Calculation Used for Recommendations [facility] Additional Notes Protein needs: (1.5-2.0 g/kg) (75-100 g/day) Fluid needs: 1 ml/ kcal Nutrition Intervention Change Diet Order: Advance when medically feasible Nutrition Support: CPN at 75 ml/hr: 5.6% AA, 11% Dextrose, 60 mEq K, 288 mEq Na , 16 mEq Mg, 10 mEq Ca, 25 mmol P, Cl/Acetate: 50/50, MVI , 250mL lipids Kcal 1,580 Protein (gm) 100 Carbohydrates (gm) 200 Fat (gm) 50 Fluid (mL) 2,050 Fiber (gm) 0 Goal #1 CPN to meet nutritional needs as best possible Anticipated Discharge Needs: unable to determine at this time Follow-Up By: 05/02/18 Additional Comments F/U for BMP, Mg, P in AM
[2018-05-01] MEDS ORDERED: INTRALIPID 20% 250 ML IV SCH (20:00)
[2018-05-01] MEDS ORDERED: TPN ADULT 1,800 ML IV SCH (20:00)
[2018-05-01] MEDS: D5/0.45NS 1,000 ML IV SCH (21:40)
[2018-05-02] MEDS: DILAUDID IV PRN ×7 (00:26→20:42)
[2018-05-02] MEDS: FLAGYL 500 MG/100 ML 500 MG/100 ML BAG IV SCH ×3 (05:00→21:02)
[2018-05-02] MEDS ORDERED: NORMODYNE IV ONE (05:06)
[2018-05-02 05:28] LABS: BUN/Creatinine Ratio 50; Blood Urea Nitrogen 10 mg/dL (7-17); Calcium 7.4 mg/dL (8.4-10.2); Hemolysis Index 4
[2018-05-02] MEDS: PROVENTIL IH SCH ×3 (08:57→20:43)
[2018-05-02] MEDS: ROCEPHIN/NS 2 GM/100 ML 2 GM/100 ML BAG IV SCH (09:40)
[2018-05-02] MEDS: PEPCID IV SCH ×2 (09:40→21:01)
[2018-05-02] MEDS: COZAAR PO SCH (09:41)
--- NOTE | 2018-05-02 10:05 | Progress Note ---
Assessment and Plan POD # 7 Pt feeling well. no compl. Sump drain 50 cc over last 12 hrs. Abd soft. incision clean. wds clean & dry stable continue present care Selected Entries 05/02/18 05/02/18 05/02/18 03:14 08:51 09:41 Temperature 98.8 F Pulse Rate 104 H Respiratory 20 Rate Blood Pressure 166/78 Laboratory Tests 05/02/18 04:55 Sodium 134 L Potassium 3.8 Chloride 99.2 Carbon Dioxide 26 Anion Gap 13 Creatinine 0.2 L Objective Vital Signs - 12hr 05/01/18 05/02/18 05/02/18 23:34 03:14 05:19 Temperature 98.0 F 98.8 F Pulse Rate 107 H 114 H Respiratory 18 18 Rate Blood Pressure 167/88 176/84 176/84 O2 Sat by Pulse 96 95 Oximetry 05/02/18 05/02/18 05/02/18 07:38 08:21 08:51 Temperature Pulse Rate 104 H Respiratory 20 20 Rate Blood Pressure O2 Sat by Pulse 96 Oximetry 05/02/18 09:41 Temperature Pulse Rate 104 H Respiratory Rate Blood Pressure 166/78 O2 Sat by Pulse Oximetry - Labs 04/30/18 05:41 05/02/18 04:55 Diabetes panel 05/02/18 Range/Units 04:55 Sodium 134 L (137-145) mmol/L Potassium 3.8 (3.6-5.0) mmol/L Chloride 99.2 (98-107) mmol/L Carbon Dioxide 26 (22-30) mmol/L BUN 10 (7-17) mg/dL Creatinine 0.2 L (0.7-1.2) mg/dL Glucose 113 H (65-100) mg/dL Calcium 7.4 L (8.4-10.2) mg/dL Calcium panel 05/02/18 Range/Units 04:55 Calcium 7.4 L (8.4-10.2) mg/dL Phosphorus 2.90 (2.5-4.5) mg/dL Pituitary panel 05/02/18 Range/Units 04:55 Sodium 134 L (137-145) mmol/L Potassium 3.8 (3.6-5.0) mmol/L Chloride 99.2 (98-107) mmol/L Carbon Dioxide 26 (22-30) mmol/L BUN 10 (7-17) mg/dL Creatinine 0.2 L (0.7-1.2) mg/dL Glucose 113 H (65-100) mg/dL Calcium 7.4 L (8.4-10.2) mg/dL Adrenal panel 05/02/18 Range/Units 04:55 Sodium 134 L (137-145) mmol/L Potassium 3.8 (3.6-5.0) mmol/L Chloride 99.2 (98-107) mmol/L Carbon Dioxide 26 (22-30) mmol/L BUN 10 (7-17) mg/dL Creatinine 0.2 L (0.7-1.2) mg/dL Glucose 113 H (65-100) mg/dL Calcium 7.4 L (8.4-10.2) mg/dL
[2018-05-02] MEDS: D5/0.45NS 1,000 ML IV SCH ×2 (10:16→23:54)
[2018-05-02] MEDS: NORCO 5/325 PO PRN ×3 (11:34→22:40)
--- NOTE | 2018-05-02 14:12 | Progress Note ---
Assessment and Plan Sepsis. Etiology secondary to gangrenous and perforated appendix causing intra- abdominal/pelvic abscess. status post exploratory laparotomy with appendectomy and evacuation of pelvic abscess. Intrabdominal sepsis/peritonitis Ruptured appendix with abdominal abscess Tobacco abuse disorder COPD Neurofibromatosis - continue supplemental oxygen to keep O2 sats > 90% - advance diet per surgeon - continue aspiration precautions - abdominal drain to suction - complete antibiotics course and adjust per ID - follow cultures and clinically for AB's de-escalation - IV fluids per surgeon - VTE prophylaxis - PT/OT/Mobility, OOB to chair daily - continue incentive spirometry - continue nicotine withdrawal precautions - Smoking cessation counselling was done at the bedside again today - Bronchodilators per protocol - Analgesia, pain management - NPO for now, serial abdominal exams ... re-evaluate in am & prn Subjective Date of service: 05/02/18 Principal diagnosis: Sepsis; Ex-lap appendectomy and evacuation of pelvic abscess; Peritonitis Interval history: Patient is seen today for: Sepsis; status post exploratory laparotomy with appendectomy and evacuation of pelvic abscess; Intrabdominal sepsis/peritonitis; Ruptured appendix with abdominal abscess Seen and examined at bedside; 24hour events reviewed; nursing and respiratory care staff consulted; no adverse overnight events reported to me; resting in bed; Objective Vital Signs - 12hr 05/02/18 05/02/18 05/02/18 03:14 05:19 07:38 Temperature 98.8 F Pulse Rate 114 H 104 H Respiratory 18 Rate Blood Pressure 176/84 176/84 Blood Pressure [Right] O2 Sat by Pulse 95 96 Oximetry 05/02/18 05/02/18 05/02/18 08:21 08:51 09:41 Temperature Pulse Rate 104 H Respiratory 20 20 Rate Blood Pressure 166/78 Blood Pressure [Right] O2 Sat by Pulse Oximetry 05/02/18 05/02/18 05/02/18 11:30 11:34 12:00 Temperature 97.4 F L Pulse Rate Respiratory 20 20 18 Rate Blood Pressure Blood Pressure 166/62 [Right] O2 Sat by Pulse Oximetry Constitutional: no acute distress, alert, other (chronically ill looking this middle aged CF, normocephalic) Eyes: non-icteric ENT: oropharynx moist, other (Mallampati 2) Neck: supple, no lymphadenopathy, no JVD Effort: mildly labored Ascultation: Bilateral: diminished breath sounds, rhonchi Percussion: Bilateral: not dull Cardiovascular: regular rate and rhythm Gastrointestinal: normoactive bowel sounds, soft, tender (bhargav-op site), non- distended, other (Drain in place with non-bloody effluent) Integumentary: other (poor turgor; ? neurofibromatous nodules over body) Extremities: no cyanosis, no edema, pink and warm, pulses normal Neurologic: normal mental status, non-focal exam, pupils equal and round, motor strength normal and Psychiatric: mood appropriate, anxious CBC and BMP: 04/30/18 05:41 05/02/18 04:55 ABG, PT/INR, D-dimer: ABG POC ABG pH 7.367 (7.35-7.45) 04/19/18 00:19 POC ABG pCO2 36.8 (35-45) 04/19/18 00:19 POC ABG pO2 84 (80-105) 04/19/18 00:19 POC ABG HCO3 21.1 04/19/18 00:19 POC ABG Total CO2 22 04/19/18 00:19 POC ABG O2 Sat 96 04/19/18 00:19 PT/INR, D-dimer PT 15.3 Sec. (12.2-14.9) H 04/22/18 05:19 INR 1.17 (0.87-1.13) H 04/22/18 05:19 Abnormal lab findings: Abnormal Labs 04/18/18 04/18/18 04/18/18 14:30 14:30 14:30 WBC 18.6 H RBC Hgb Hct RDW Lymph % (Auto) [place] % (Auto) Lymph # Seg Neutrophils % Seg Neuts % (Manual) 79.0 H Lymphocytes % (Manual) 4.0 L Seg Neutrophils # Man 14.7 H Lymphocytes # (Manual) 0.7 L PT 16.3 H INR 1.27 H VBG pH Sodium 121 L Potassium 3.0 L Chloride 78.0 L Carbon Dioxide BUN Creatinine 0.5 L Glucose 110 H POC Glucose Lactic Acid Calcium Phosphorus Magnesium Total Bilirubin 1.30 H AST 42 H Total Protein Albumin 3.1 L Crossmatch 04/18/18 04/18/18 04/18/18 14:30 14:30 23:59 WBC RBC Hgb Hct RDW 15.8 H Lymph % (Auto) [place] % (Auto) Lymph # Seg Neutrophils % Seg Neuts % (Manual) 78.0 H Lymphocytes % (Manual) 6.0 L Seg Neutrophils # Man Lymphocytes # (Manual) 0.5 L PT INR VBG pH 7.439 H Sodium Potassium Chloride Carbon Dioxide BUN Creatinine Glucose POC Glucose Lactic Acid 3.60 H* Calcium Phosphorus Magnesium Total Bilirubin AST Total Protein Albumin Crossmatch 04/18/18 04/19/18 04/19/18 23:59 05:19 05:19 WBC 15.0 H RBC Hgb Hct RDW 15.3 H Lymph % (Auto) [place] % (Auto) Lymph # Seg Neutrophils % Seg Neuts % (Manual) Lymphocytes % (Manual) 5.0 L Seg Neutrophils # Man 8.3 H Lymphocytes # (Manual) 0.8 L PT INR VBG pH Sodium 130 L D 133 L Potassium 3.5 L 3.3 L Chloride Carbon Dioxide 20 L D BUN Creatinine 0.5 L 0.6 L Glucose 140 H 115 H POC Glucose Lactic Acid Calcium 7.5 L 7.4 L Phosphorus Magnesium Total Bilirubin AST Total Protein 4.4 L D 4.1 L Albumin 2.0 L 1.9 L Crossmatch 04/19/18 04/19/18 04/20/18 05:19 13:05 05:18 WBC RBC Hgb Hct RDW Lymph % (Auto) [place] % (Auto) Lymph # Seg Neutrophils % Seg Neuts % (Manual) Lymphocytes % (Manual) Seg Neutrophils # Man Lymphocytes # (Manual) PT 19.4 H 17.4 H INR 1.59 H 1.38 H VBG pH Sodium Potassium Chloride Carbon Dioxide BUN Creatinine Glucose POC Glucose Lactic Acid Calcium Phosphorus Magnesium Total Bilirubin AST Total Protein Albumin Crossmatch See Detail 04/20/18 04/20/18 04/21/18 13:47 13:47 04:52 WBC RBC 3.29 L 3.10 L Hgb 9.6 L 8.8 L Hct 28.1 L D 26.6 L RDW 15.3 H 15.4 H Lymph % (Auto) 5.6 L [place] % (Auto) Lymph # 0.4 L Seg Neutrophils % 87.3 H Seg Neuts % (Manual) Lymphocytes % (Manual) Seg Neutrophils # Man Lymphocytes # (Manual) PT INR VBG pH Sodium Potassium Chloride Carbon Dioxide BUN Creatinine 0.3 L Glucose 102 H POC Glucose Lactic Acid Calcium 8.0 L Phosphorus Magnesium Total Bilirubin AST Total Protein Albumin Crossmatch 04/21/18 04/22/18 04/22/18 04:52 05:19 05:19 WBC RBC 3.64 L Hgb Hct RDW Lymph % (Auto) 8.5 L [place] % (Auto) 9.9 H Lymph # 0.6 L Seg Neutrophils % 81.0 H Seg Neuts % (Manual) Lymphocytes % (Manual) Seg Neutrophils # Man Lymphocytes # (Manual) PT 15.3 H INR 1.17 H VBG pH Sodium Potassium 3.2 L Chloride Carbon Dioxide BUN Creatinine 0.3 L Glucose POC Glucose Lactic Acid Calcium 7.6 L Phosphorus Magnesium Total Bilirubin AST Total Protein Albumin Crossmatch 04/22/18 04/24/18 04/24/18 05:19 07:19 07:19 WBC RBC Hgb Hct RDW Lymph % (Auto) [place] % (Auto) Lymph # Seg Neutrophils % Seg Neuts % (Manual) Lymphocytes % (Manual) Seg Neutrophils # Man Lymphocytes # (Manual) PT INR VBG pH Sodium Potassium 3.4 L 2.9 L* Chloride Carbon Dioxide BUN Creatinine 0.3 L 0.3 L Glucose 103 H POC Glucose Lactic Acid Calcium 7.7 L 7.5 L Phosphorus Magnesium 1.60 L Total Bilirubin AST Total Protein 4.3 L Albumin 2.2 L Crossmatch 04/24/18 04/25/18 04/25/18 07:23 06:28 06:28 WBC RBC Hgb Hct RDW 15.3 H 15.9 H Lymph % (Auto) 10.1 L [place] % (Auto) Lymph # 0.8 L Seg Neutrophils % 80.6 H Seg Neuts % (Manual) Lymphocytes % (Manual) 9.0 L Seg Neutrophils # Man Lymphocytes # (Manual) 0.7 L PT INR VBG pH Sodium Potassium 3.0 L Chloride Carbon Dioxide BUN 5 L Creatinine 0.2 L Glucose 108 H POC Glucose Lactic Acid Calcium 7.4 L Phosphorus Magnesium Total Bilirubin AST Total Protein 4.6 L Albumin 2.5 L Crossmatch 04/25/18 04/26/18 04/26/18 06:28 05:45 05:45 WBC 11.9 H RBC Hgb Hct RDW 16.2 H Lymph % (Auto) [place] % (Auto) Lymph # Seg Neutrophils % Seg Neuts % (Manual) Lymphocytes % (Manual) Seg Neutrophils # Man Lymphocytes # (Manual) PT INR VBG pH Sodium Potassium Chloride Carbon Dioxide BUN 5 L Creatinine 0.2 L Glucose 119 H POC Glucose Lactic Acid Calcium 7.7 L Phosphorus 2.00 L 2.20 L Magnesium Total Bilirubin AST Total Protein Albumin Crossmatch 04/27/18 04/28/18 04/28/18 05:33 06:00 06:00 WBC 11.2 H RBC Hgb Hct RDW 16.0 H Lymph % (Auto) [place] % (Auto) Lymph # Seg Neutrophils % Seg Neuts % (Manual) 92.0 H Lymphocytes % (Manual) 5.0 L Seg Neutrophils # Man 10.3 H Lymphocytes # (Manual) 0.6 L PT INR VBG pH Sodium Potassium 3.4 L 3.1 L Chloride Carbon Dioxide BUN 6 L 4 L Creatinine 0.2 L 0.2 L Glucose 119 H POC Glucose Lactic Acid Calcium 7.5 L 7.1 L Phosphorus 2.00 L 2.10 L Magnesium 1.50 L Total Bilirubin AST Total Protein 4.3 L Albumin 2.1 L Crossmatch 04/29/18 04/29/18 04/29/18 05:18 05:18 17:49 WBC 12.0 H RBC Hgb Hct RDW 16.0 H Lymph % (Auto) [place] % (Auto) Lymph # Seg Neutrophils % Seg Neuts % (Manual) 87.0 H Lymphocytes % (Manual) 10.0 L Seg Neutrophils # Man 10.4 H Lymphocytes # (Manual) PT INR VBG pH Sodium 135 L Potassium Chloride Carbon Dioxide BUN Creatinine 0.2 L Glucose 120 H POC Glucose 108 H Lactic Acid Calcium 7.5 L Phosphorus Magnesium Total Bilirubin AST Total Protein Albumin Crossmatch 04/30/18 04/30/18 04/30/18 00:03 05:18 05:41 WBC RBC Hgb Hct RDW Lymph % (Auto) [place] % (Auto) Lymph # Seg Neutrophils % Seg Neuts % (Manual) Lymphocytes % (Manual) Seg Neutrophils # Man Lymphocytes # (Manual) PT INR VBG pH Sodium 133 L Potassium Chloride Carbon Dioxide BUN Creatinine 0.2 L Glucose 119 H POC Glucose 112 H 110 H Lactic Acid Calcium 7.5 L Phosphorus Magnesium Total Bilirubin AST Total Protein Albumin Crossmatch 04/30/18 05/01/18 05/01/18 05:41 00:39 04:45 WBC RBC 3.60 L Hgb Hct RDW 16.0 H Lymph % (Auto) [place] % (Auto) Lymph # Seg Neutrophils % Seg Neuts % (Manual) 88.0 H Lymphocytes % (Manual) 8.0 L Seg Neutrophils # Man Lymphocytes # (Manual) 0.7 L PT INR VBG pH Sodium 132 L Potassium Chloride Carbon Dioxide BUN Creatinine 0.2 L Glucose 101 H POC Glucose 119 H Lactic Acid Calcium 7.6 L Phosphorus Magnesium Total Bilirubin AST Total Protein Albumin Crossmatch 05/01/18 05/01/18 05/01/18 06:30 16:09 23:42 WBC RBC Hgb Hct RDW Lymph % (Auto) [place] % (Auto) Lymph # Seg Neutrophils % Seg Neuts % (Manual) Lymphocytes % (Manual) Seg Neutrophils # Man Lymphocytes # (Manual) PT INR VBG pH Sodium Potassium Chloride Carbon Dioxide BUN Creatinine Glucose POC Glucose 126 H 160 H 113 H Lactic Acid Calcium Phosphorus Magnesium Total Bilirubin AST Total Protein Albumin Crossmatch 05/02/18 05/02/18 05/02/18 04:55 06:41 11:53 WBC RBC Hgb Hct RDW Lymph % (Auto) [place] % (Auto) Lymph # Seg Neutrophils % Seg Neuts % (Manual) Lymphocytes % (Manual) Seg Neutrophils # Man Lymphocytes # (Manual) PT INR VBG pH Sodium 134 L Potassium Chloride Carbon Dioxide BUN Creatinine 0.2 L Glucose 113 H POC Glucose 146 H 113 H Lactic Acid Calcium 7.4 L Phosphorus Magnesium Total Bilirubin AST Total Protein Albumin Crossmatch Allied health notes reviewed: nursing
--- NOTE | 2018-05-02 14:43 | Progress Note ---
Assessment and Plan Assessment and plan: Sepsis. Etiology secondary to gangrenous and perforated appendix causing intra- abdominal/pelvic abscess. Patient is status post exploratory laparotomy with appendectomy and evacuation of pelvic abscess. ID following. Continue antibiotics. Ceftriaxone, Flagyl and Fluconazole ending 05-02-18, D6 of D7 (tentatively plan for 7 days from last surgery dated 04/25/2018) Perforated appendix s/p exploratory lap. Cont. TPN and IV abx dislodged drain, s/p taken to OR , exploratory lap, irrigation of intraabd cavity and placement of sump drain on 04/25 OOB as tiffanie Chronic hep C. Untreated. Outpatient follow-up. Hypertension. Continue antihypertensive medications. COPD. Compensated. Hypokalemia. Replete potassium as needed Hyponatremia. Change IV fluid to normal saline. Neurofibromatosis Tobacco abuse. Patient counseled on smoking cessation. History Interval history: The patient is a 57-year-old female with hypertension, neurofibromatosis, hepatitis C, COPD, nicotine dependence presented to the emergency room on 04/18/18 with complaints of abdominal pain going on for [address] scan obtained in the emergency room revealed a ruptured appendix with associated intra-abdominal abscess. General surgery was consulted and the patient underwent an emergent exploratory laparotomy with evacuation of pelvic abscess. She was noted to have a gangrenous, perforated appendix eroding including into the small bowel. As per the op note, the abscess could not be drained as the entire abscess and inflammatory process had trapped the small bowel, which was mobilized and she underwent an ileocolic anastomosis. The patient went back to the OR on 04/25/18 for drain dislodgment. Hospitalist Physical - Constitutional Vitals: Temp Pulse Resp BP Pulse Ox 97.4 F L 104 H 20 166/62 96 05/02/18 12:00 05/02/18 09:41 05/02/18 14:29 05/02/18 12:00 05/02/18 07:38 General appearance: Present: no acute distress - EENT Eyes: Present: PERRL, EOM intact ENT: hearing intact, clear oral mucosa, dentition normal - Neck Neck: Present: supple, normal ROM - Respiratory Respiratory effort: normal Respiratory: bilateral: CTA - Cardiovascular Rhythm: regular Heart Sounds: Present: S1 & S2. Absent: gallop, rub - Extremities Extremities: no ischemia, No edema, Full ROM - Abdominal General gastrointestinal: soft, non-tender, non-distended, normal bowel sounds - Integumentary Integumentary: Present: clear, warm, dry - Neurologic Neurologic: CNII-XII intact, moves all extremities Results - Labs CBC & Chem 7: 04/30/18 05:41 05/02/18 04:55 Labs: Laboratory Last Values WBC 8.8 K/mm3 (4.5-11.0) 04/30/18 05:41 RBC 3.60 M/mm3 (3.65-5.03) L 04/30/18 05:41 Hgb 10.4 gm/dl (10.1-14.3) 04/30/18 05:41 Hct 30.6 % (30.3-42.9) 04/30/18 05:41 MCV 85 fl (79-97) 04/30/18 05:41 MCH 29 pg (28-32) 04/30/18 05:41 MCHC 34 % (30-34) 04/30/18 05:41 RDW 16.0 % (13.2-15.2) H 04/30/18 05:41 Plt Count 299 K/mm3 (140-440) 04/30/18 05:41 Lymph % (Auto) 10.1 % (13.4-35.0) L 04/24/18 07:23 [place] % (Auto) 7.3 % (0.0-7.3) 04/24/18 07:23 Eos % (Auto) 0.4 % (0.0-4.3) 04/24/18 07:23 Baso % (Auto) 1.6 % (0.0-1.8) 04/24/18 07:23 Lymph # 0.8 K/mm3 (1.2-5.4) L 04/24/18 07:23 [place] # 0.6 K/mm3 (0.0-0.8) 04/24/18 07:23 Eos # 0.0 K/mm3 (0.0-0.4) 04/24/18 07:23 Baso # 0.1 K/mm3 (0.0-0.1) 04/24/18 07:23 Add Manual Diff Complete 04/30/18 05:41 Total Counted 100 04/30/18 05:41 Seg Neutrophils % 80.6 % (40.0-70.0) H 04/24/18 07:23 Seg Neuts % (Manual) 88.0 % (40.0-70.0) H 04/30/18 05:41 Band Neutrophils % 1.0 % 04/30/18 05:41 Lymphocytes % (Manual) 8.0 % (13.4-35.0) L 04/30/18 05:41 Reactive Lymphs % (Man) 0 % 04/30/18 05:41 Monocytes % (Manual) 3.0 % (0.0-7.3) 04/30/18 05:41 Eosinophils % (Manual) 0 % (0.0-4.3) 04/30/18 05:41 Basophils % (Manual) 0 % (0.0-1.8) 04/30/18 05:41 Metamyelocytes % 0 % 04/30/18 05:41 Myelocytes % 0 % 04/30/18 05:41 Promyelocytes % 0 % 04/30/18 05:41 Blast Cells % 0 % 04/30/18 05:41 Nucleated RBC % Not Reportable 04/30/18 05:41 Seg Neutrophils # 6.5 K/mm3 (1.8-7.7) 04/24/18 07:23 Seg Neutrophils # Man 7.7 K/mm3 (1.8-7.7) 04/30/18 05:41 Band Neutrophils # 0.1 K/mm3 04/30/18 05:41 Lymphocytes # (Manual) 0.7 K/mm3 (1.2-5.4) L 04/30/18 05:41 Abs React Lymphs (Man) 0.0 K/mm3 04/30/18 05:41 Monocytes # (Manual) 0.3 K/mm3 (0.0-0.8) 04/30/18 05:41 Eosinophils # (Manual) 0.0 K/mm3 (0.0-0.4) 04/30/18 05:41 Basophils # (Manual) 0.0 K/mm3 (0.0-0.1) 04/30/18 05:41 Metamyelocytes # 0.0 K/mm3 04/30/18 05:41 Myelocytes # 0.0 K/mm3 04/30/18 05:41 Promyelocytes # 0.0 K/mm3 04/30/18 05:41 Blast Cells # 0.0 K/mm3 04/30/18 05:41 WBC Morphology Not Reportable 04/30/18 05:41 Hypersegmented Neuts Not Reportable 04/30/18 05:41 Hyposegmented Neuts Not Reportable 04/30/18 05:41 Hypogranular Neuts Not Reportable 04/30/18 05:41 Smudge Cells Not Reportable 04/30/18 05:41 Toxic Granulation Not Reportable 04/30/18 05:41 Toxic Vacuolation Not Reportable 04/30/18 05:41 Dohle Bodies Not Reportable 04/30/18 05:41 Pelger-Huet Anomaly Not Reportable 04/30/18 05:41 Nicole Rods Not Reportable 04/30/18 05:41 Platelet Estimate Appears normal 04/30/18 05:41 Clumped Platelets Not Reportable 04/30/18 05:41 Plt Clumps, EDTA Not Reportable 04/30/18 05:41 Large Platelets Not Reportable 04/30/18 05:41 Giant Platelets Not Reportable 04/30/18 05:41 Platelet Satelliting Not Reportable 04/30/18 05:41 Plt Morphology Comment Not Reportable 04/30/18 05:41 RBC Morphology Not Reportable 04/30/18 05:41 Dimorphic RBCs Not Reportable 04/30/18 05:41 Polychromasia Not Reportable 04/30/18 05:41 Hypochromasia 1+ 04/30/18 05:41 Poikilocytosis Not Reportable 04/30/18 05:41 Anisocytosis 1+ 04/30/18 05:41 Microcytosis Not Reportable 04/30/18 05:41 Macrocytosis Not Reportable 04/30/18 05:41 Spherocytes Not Reportable 04/30/18 05:41 Pappenheimer Bodies Not Reportable 04/30/18 05:41 Sickle Cells Not Reportable 04/30/18 05:41 Target Cells Not Reportable 04/30/18 05:41 Tear Drop Cells Not Reportable 04/30/18 05:41 Ovalocytes Few 04/30/18 05:41 Stomatocytes Few 04/29/18 05:18 Helmet Cells Not Reportable 04/30/18 05:41 [place] Bodies Not Reportable 04/30/18 05:41 [place] Rings Not Reportable 04/30/18 05:41 Philip Cells Not Reportable 04/30/18 05:41 Bite Cells Not Reportable 04/30/18 05:41 Crenated Cell Not Reportable 04/30/18 05:41 Elliptocytes Not Reportable 04/30/18 05:41 Acanthocytes (Spur) Not Reportable 04/30/18 05:41 Rouleaux Not Reportable 04/30/18 05:41 Hemoglobin C Crystals Not Reportable 04/30/18 05:41 Schistocytes Not Reportable 04/30/18 05:41 Malaria parasites Not Reportable 04/30/18 05:41 Hung Bodies Not Reportable 04/30/18 05:41 Hem Pathologist Commnt No 04/30/18 05:41 PT 15.3 Sec. (12.2-14.9) H 04/22/18 05:19 INR 1.17 (0.87-1.13) H 04/22/18 05:19 APTT 29.4 Sec. (24.2-36.6) 04/19/18 05:19 POC ABG pH 7.367 (7.35-7.45) 04/19/18 00:19 POC ABG pCO2 36.8 (35-45) 04/19/18 00:19 POC ABG pO2 84 (80-105) 04/19/18 00:19 POC ABG HCO3 21.1 04/19/18 00:19 POC ABG Total CO2 22 04/19/18 00:19 POC ABG O2 Sat 96 04/19/18 00:19 POC ABG Base Excess -4 04/19/18 00:19 VBG pH 7.439 (7.320-7.420) H 04/18/18 14:30 FiO2 32 % 04/19/18 00:19 Sodium 134 mmol/L (137-145) L 05/02/18 04:55 Potassium 3.8 mmol/L (3.6-5.0) 05/02/18 04:55 Chloride 99.2 mmol/L (98-107) 05/02/18 04:55 Carbon Dioxide 26 mmol/L (22-30) 05/02/18 04:55 Anion Gap 13 mmol/L 05/02/18 04:55 BUN 10 mg/dL (7-17) 05/02/18 04:55 Creatinine 0.2 mg/dL (0.7-1.2) L 05/02/18 04:55 Estimated GFR > 60 ml/min 05/02/18 04:55 BUN/Creatinine Ratio 50 % 05/02/18 04:55 Glucose 113 mg/dL (65-100) H 05/02/18 04:55 POC Glucose 113 (70-105) H 05/02/18 11:53 Lactic Acid 0.90 mmol/L (0.7-2.0) 04/18/18 18:41 Calcium 7.4 mg/dL (8.4-10.2) L 05/02/18 04:55 Phosphorus 2.90 mg/dL (2.5-4.5) 05/02/18 04:55 Magnesium 1.90 mg/dL (1.7-2.3) 05/02/18 04:55 Total Bilirubin 0.40 mg/dL (0.1-1.2) 04/28/18 06:00 AST 26 units/L (5-40) 04/28/18 06:00 ALT 20 units/L (7-56) 04/28/18 06:00 Alkaline Phosphatase 73 units/L (35-129) 04/28/18 06:00 Total Protein 4.3 g/dL (6.3-8.2) L 04/28/18 06:00 Albumin 2.1 g/dL (3.9-5) L 04/28/18 06:00 Albumin/Globulin Ratio 1.0 % 04/28/18 06:00 Urine Color Yellow (Yellow) 04/20/18 13:35 Urine Turbidity Clear (Clear) 04/20/18 13:35 Urine pH 5.0 (5.0-7.0) 04/20/18 13:35 Ur Specific [place] 1.011 (1.003-1.030) 04/20/18 13:35 Urine Protein <15 mg/dl mg/dL (Negative) 04/20/18 13:35 Urine Glucose (UA) Neg mg/dL (Negative) 04/20/18 13:35 Urine Ketones 20 mg/dL (Negative) 04/20/18 13:35 Urine Blood Sm (Negative) 04/20/18 13:35 Urine Nitrite Neg (Negative) 04/20/18 13:35 Urine Bilirubin Neg (Negative) 04/20/18 13:35 Urine Urobilinogen 2.0 mg/dL (<2.0) 04/20/18 13:35 Ur Leukocyte Esterase Tr (Negative) 04/20/18 13:35 Urine WBC (Auto) 2.0 /HPF (0.0-6.0) 04/20/18 13:35 Urine RBC (Auto) 1.0 /HPF (0.0-6.0) 04/20/18 13:35 U Epithel Cells (Auto) 2.0 /HPF (0-13.0) 04/18/18 16:45 Urine Bacteria (Auto) 2+ /HPF (Negative) 04/18/18 16:45 Urine Mucus Few /HPF 04/20/18 13:35 Blood Type O POSITIVE 04/19/18 13:05 Antibody Screen Negative 04/19/18 13:05 Crossmatch See Detail 04/19/18 13:05 Nutrition/Malnutrition Assess - Dietary Evaluation Nutrition/Malnutrition Findings: Nutrition Notes Start: 04/24/18 09:13 Freq: Status: Active Protocol: Document 05/02/18 12:45 [facility] (Rec: 05/02/18 12:52 [facility] SRW- [id number]) Nutrition Notes Initial or Follow up Reassessment Other Pertinent Diagnosis Perforated appendix s/p exp lap Current Diet TPN at 75ml/hr Labs/Tests Na 134 Pertinent Medications Reviewed Height 5 ft 1 in Weight 48.1 kg Usual Body Weight 49.5 kg [place] Body Weight (kg) 47.72 BMI 20.0 Weight change and time frame Current wt obtained from bed scale Subjective/Other Information Day 6 TPN. Pt reports that she is allowed 5 popsicles daily now. Percent of energy/protein needs met: 95% energy 100% pro Burn Absent Trauma Absent #2 Nutrition Diagnosis Increased nutrient needs ( specify in comment below) Diagnosis Progress(for reassessment Continues documentation) #1 Nutrition Diagnosis Inadequate oral intake Diagnosis Progress(for reassessment Continues documentation) Is patient on ventilator? No Is Patient Ambulatory and/or Out of Bed Yes REE-([place]-St. Jeor-ambulatory/OOB) [ [id number] [id number]] Calculation Used for Recommendations [place]-St Jeor Additional Notes Pro needs 1.25-1.5g/k-72g /day Fluid needs 1ml/kcal Nutrition Intervention Nutrition Support: Continue TPN at 75ml/hr: MVI, 13.9% dextrose, 80mEq K, 30mmol Phos. Osmolality: 1688 . Kcal 1,250 Protein (gm) 100 Carbohydrates (gm) 250 Fat (gm) 0 Fluid (mL) 1,800 Fiber (gm) 0 Goal #1 CPN to meet 90-100% energy and pro needs Goal #2 Wt maintenance Follow-Up By: 05/03/18 Additional Comments Labs in am: BMP, Mg, Phos
--- NOTE | 2018-05-02 16:04 | Progress Note ---
Assessment and Plan Sepsis. Etiology secondary to gangrenous and perforated appendix causing intra- abdominal/pelvic abscess. status post exploratory laparotomy with appendectomy and evacuation of pelvic abscess. Intrabdominal sepsis/peritonitis Ruptured appendix with abdominal abscess Tobacco abuse disorder COPD Neurofibromatosis - continue supplemental oxygen to keep O2 sats > 90% - continue bronchodilators with pulmonary hygiene per RT - advance diet per surgeon (remains on TPN now) - continue aspiration precautions - abdominal drain to suction (adjust per surgeon) - complete antibiotics course and adjust per ID - follow cultures and clinically for AB's de-escalation - IV fluids per surgeon - VTE prophylaxis - PT/OT/Mobility, OOB to chair daily - continue incentive spirometry - continue nicotine withdrawal precautions - Smoking cessation counselling was done at the bedside again today - Analgesia, pain management - NPO for now, serial abdominal exams ... re-evaluate in am & prn Subjective Date of service: 05/02/18 Principal diagnosis: Sepsis; Ex-lap appendectomy and evacuation of pelvic abscess; Peritonitis Interval history: Patient is seen today for: Sepsis; status post exploratory laparotomy with appendectomy and evacuation of pelvic abscess; Intrabdominal sepsis/peritonitis; Ruptured appendix with abdominal abscess Seen and examined at bedside; 24hour events reviewed; nursing and respiratory care staff consulted; no adverse overnight events reported to me; resting in bed; remains on supplemental oxygen; feels better overall but still on TPN; still with some effluent from the abdominal tube/drain Objective Vital Signs - 12hr 05/02/18 05/02/18 05/02/18 05:19 07:38 08:21 Temperature Pulse Rate 104 H Respiratory 20 Rate Respiratory Rate [Abdomen] Respiratory Rate [Back] Blood Pressure 176/84 Blood Pressure [Right] O2 Sat by Pulse 96 Oximetry 05/02/18 05/02/18 05/02/18 08:51 09:41 11:30 Temperature Pulse Rate 104 H Respiratory 20 20 Rate Respiratory Rate [Abdomen] Respiratory Rate [Back] Blood Pressure 166/78 Blood Pressure [Right] O2 Sat by Pulse Oximetry 05/02/18 05/02/18 05/02/18 11:34 12:00 12:34 Temperature 97.4 F L Pulse Rate Respiratory 20 20 20 Rate Respiratory Rate [Abdomen] Respiratory Rate [Back] Blood Pressure Blood Pressure 166/62 [Right] O2 Sat by Pulse Oximetry 05/02/18 05/02/18 05/02/18 14:29 14:59 15:36 Temperature Pulse Rate Respiratory 20 20 20 Rate Respiratory Rate [Abdomen] Respiratory Rate [Back] Blood Pressure Blood Pressure [Right] O2 Sat by Pulse Oximetry 05/02/18 15:46 Temperature Pulse Rate Respiratory Rate Respiratory 20 Rate [Abdomen] Respiratory 20 Rate [Back] Blood Pressure Blood Pressure [Right] O2 Sat by Pulse Oximetry Constitutional: no acute distress, alert, other (chronically ill looking this middle aged CF, normocephalic) Eyes: non-icteric ENT: oropharynx moist, other (Mallampati 2) Neck: supple, no lymphadenopathy, no JVD Effort: mildly labored Ascultation: Bilateral: diminished breath sounds, rhonchi (scant in bases) Percussion: Bilateral: not dull Cardiovascular: regular rate and rhythm Gastrointestinal: normoactive bowel sounds, soft, tender (bhargav-op site), non- distended, other (Drain in place with non-bloody effluent) Integumentary: other (poor turgor; ? neurofibromatous nodules over body) Extremities: no cyanosis, no edema, pink and warm, pulses normal Neurologic: normal mental status, non-focal exam, pupils equal and round, motor strength normal and Psychiatric: mood appropriate, anxious CBC and BMP: 05/03/18 08:46 05/03/18 12:15 ABG, PT/INR, D-dimer: ABG POC ABG pH 7.367 (7.35-7.45) 04/19/18 00:19 POC ABG pCO2 36.8 (35-45) 04/19/18 00:19 POC ABG pO2 84 (80-105) 04/19/18 00:19 POC ABG HCO3 21.1 04/19/18 00:19 POC ABG Total CO2 22 04/19/18 00:19 POC ABG O2 Sat 96 04/19/18 00:19 PT/INR, D-dimer PT 15.3 Sec. (12.2-14.9) H 04/22/18 05:19 INR 1.17 (0.87-1.13) H 04/22/18 05:19 Abnormal lab findings: Abnormal Labs 04/18/18 04/18/18 04/18/18 14:30 14:30 14:30 WBC 18.6 H RBC Hgb Hct RDW Lymph % (Auto) [place] % (Auto) Lymph # Seg Neutrophils % Seg Neuts % (Manual) 79.0 H Lymphocytes % (Manual) 4.0 L Seg Neutrophils # Man 14.7 H Lymphocytes # (Manual) 0.7 L PT 16.3 H INR 1.27 H VBG pH Sodium 121 L Potassium 3.0 L Chloride 78.0 L Carbon Dioxide BUN Creatinine 0.5 L Glucose 110 H POC Glucose Lactic Acid Calcium Phosphorus Magnesium Total Bilirubin 1.30 H AST 42 H Total Protein Albumin 3.1 L Crossmatch 04/18/18 04/18/18 04/18/18 14:30 14:30 23:59 WBC RBC Hgb Hct RDW 15.8 H Lymph % (Auto) [place] % (Auto) Lymph # Seg Neutrophils % Seg Neuts % (Manual) 78.0 H Lymphocytes % (Manual) 6.0 L Seg Neutrophils # Man Lymphocytes # (Manual) 0.5 L PT INR VBG pH 7.439 H Sodium Potassium Chloride Carbon Dioxide BUN Creatinine Glucose POC Glucose Lactic Acid 3.60 H* Calcium Phosphorus Magnesium Total Bilirubin AST Total Protein Albumin Crossmatch 04/18/18 04/19/18 04/19/18 23:59 05:19 05:19 WBC 15.0 H RBC Hgb Hct RDW 15.3 H Lymph % (Auto) [place] % (Auto) Lymph # Seg Neutrophils % Seg Neuts % (Manual) Lymphocytes % (Manual) 5.0 L Seg Neutrophils # Man 8.3 H Lymphocytes # (Manual) 0.8 L PT INR VBG pH Sodium 130 L D 133 L Potassium 3.5 L 3.3 L Chloride Carbon Dioxide 20 L D BUN Creatinine 0.5 L 0.6 L Glucose 140 H 115 H POC Glucose Lactic Acid Calcium 7.5 L 7.4 L Phosphorus Magnesium Total Bilirubin AST Total Protein 4.4 L D 4.1 L Albumin 2.0 L 1.9 L Crossmatch 04/19/18 04/19/18 04/20/18 05:19 13:05 05:18 WBC RBC Hgb Hct RDW Lymph % (Auto) [place] % (Auto) Lymph # Seg Neutrophils % Seg Neuts % (Manual) Lymphocytes % (Manual) Seg Neutrophils # Man Lymphocytes # (Manual) PT 19.4 H 17.4 H INR 1.59 H 1.38 H VBG pH Sodium Potassium Chloride Carbon Dioxide BUN Creatinine Glucose POC Glucose Lactic Acid Calcium Phosphorus Magnesium Total Bilirubin AST Total Protein Albumin Crossmatch See Detail 04/20/18 04/20/18 04/21/18 13:47 13:47 04:52 WBC RBC 3.29 L 3.10 L Hgb 9.6 L 8.8 L Hct 28.1 L D 26.6 L RDW 15.3 H 15.4 H Lymph % (Auto) 5.6 L [place] % (Auto) Lymph # 0.4 L Seg Neutrophils % 87.3 H Seg Neuts % (Manual) Lymphocytes % (Manual) Seg Neutrophils # Man Lymphocytes # (Manual) PT INR VBG pH Sodium Potassium Chloride Carbon Dioxide BUN Creatinine 0.3 L Glucose 102 H POC Glucose Lactic Acid Calcium 8.0 L Phosphorus Magnesium Total Bilirubin AST Total Protein Albumin Crossmatch 04/21/18 04/22/18 04/22/18 04:52 05:19 05:19 WBC RBC 3.64 L Hgb Hct RDW Lymph % (Auto) 8.5 L [place] % (Auto) 9.9 H Lymph # 0.6 L Seg Neutrophils % 81.0 H Seg Neuts % (Manual) Lymphocytes % (Manual) Seg Neutrophils # Man Lymphocytes # (Manual) PT 15.3 H INR 1.17 H VBG pH Sodium Potassium 3.2 L Chloride Carbon Dioxide BUN Creatinine 0.3 L Glucose POC Glucose Lactic Acid Calcium 7.6 L Phosphorus Magnesium Total Bilirubin AST Total Protein Albumin Crossmatch 04/22/18 04/24/18 04/24/18 05:19 07:19 07:19 WBC RBC Hgb Hct RDW Lymph % (Auto) [place] % (Auto) Lymph # Seg Neutrophils % Seg Neuts % (Manual) Lymphocytes % (Manual) Seg Neutrophils # Man Lymphocytes # (Manual) PT INR VBG pH Sodium Potassium 3.4 L 2.9 L* Chloride Carbon Dioxide BUN Creatinine 0.3 L 0.3 L Glucose 103 H POC Glucose Lactic Acid Calcium 7.7 L 7.5 L Phosphorus Magnesium 1.60 L Total Bilirubin AST Total Protein 4.3 L Albumin 2.2 L Crossmatch 04/24/18 04/25/18 04/25/18 07:23 06:28 06:28 WBC RBC Hgb Hct RDW 15.3 H 15.9 H Lymph % (Auto) 10.1 L [place] % (Auto) Lymph # 0.8 L Seg Neutrophils % 80.6 H Seg Neuts % (Manual) Lymphocytes % (Manual) 9.0 L Seg Neutrophils # Man Lymphocytes # (Manual) 0.7 L PT INR VBG pH Sodium Potassium 3.0 L Chloride Carbon Dioxide BUN 5 L Creatinine 0.2 L Glucose 108 H POC Glucose Lactic Acid Calcium 7.4 L Phosphorus Magnesium Total Bilirubin AST Total Protein 4.6 L Albumin 2.5 L Crossmatch 04/25/18 04/26/18 04/26/18 06:28 05:45 05:45 WBC 11.9 H RBC Hgb Hct RDW 16.2 H Lymph % (Auto) [place] % (Auto) Lymph # Seg Neutrophils % Seg Neuts % (Manual) Lymphocytes % (Manual) Seg Neutrophils # Man Lymphocytes # (Manual) PT INR VBG pH Sodium Potassium Chloride Carbon Dioxide BUN 5 L Creatinine 0.2 L Glucose 119 H POC Glucose Lactic Acid Calcium 7.7 L Phosphorus 2.00 L 2.20 L Magnesium Total Bilirubin AST Total Protein Albumin Crossmatch 04/27/18 04/28/18 04/28/18 05:33 06:00 06:00 WBC 11.2 H RBC Hgb Hct RDW 16.0 H Lymph % (Auto) [place] % (Auto) Lymph # Seg Neutrophils % Seg Neuts % (Manual) 92.0 H Lymphocytes % (Manual) 5.0 L Seg Neutrophils # Man 10.3 H Lymphocytes # (Manual) 0.6 L PT INR VBG pH Sodium Potassium 3.4 L 3.1 L Chloride Carbon Dioxide BUN 6 L 4 L Creatinine 0.2 L 0.2 L Glucose 119 H POC Glucose Lactic Acid Calcium 7.5 L 7.1 L Phosphorus 2.00 L 2.10 L Magnesium 1.50 L Total Bilirubin AST Total Protein 4.3 L Albumin 2.1 L Crossmatch 04/29/18 04/29/18 04/29/18 05:18 05:18 17:49 WBC 12.0 H RBC Hgb Hct RDW 16.0 H Lymph % (Auto) [place] % (Auto) Lymph # Seg Neutrophils % Seg Neuts % (Manual) 87.0 H Lymphocytes % (Manual) 10.0 L Seg Neutrophils # Man 10.4 H Lymphocytes # (Manual) PT INR VBG pH Sodium 135 L Potassium Chloride Carbon Dioxide BUN Creatinine 0.2 L Glucose 120 H POC Glucose 108 H Lactic Acid Calcium 7.5 L Phosphorus Magnesium Total Bilirubin AST Total Protein Albumin Crossmatch 04/30/18 04/30/18 04/30/18 00:03 05:18 05:41 WBC RBC Hgb Hct RDW Lymph % (Auto) [place] % (Auto) Lymph # Seg Neutrophils % Seg Neuts % (Manual) Lymphocytes % (Manual) Seg Neutrophils # Man Lymphocytes # (Manual) PT INR VBG pH Sodium 133 L Potassium Chloride Carbon Dioxide BUN Creatinine 0.2 L Glucose 119 H POC Glucose 112 H 110 H Lactic Acid Calcium 7.5 L Phosphorus Magnesium Total Bilirubin AST Total Protein Albumin Crossmatch 04/30/18 05/01/18 05/01/18 05:41 00:39 04:45 WBC RBC 3.60 L Hgb Hct RDW 16.0 H Lymph % (Auto) [place] % (Auto) Lymph # Seg Neutrophils % Seg Neuts % (Manual) 88.0 H Lymphocytes % (Manual) 8.0 L Seg Neutrophils # Man Lymphocytes # (Manual) 0.7 L PT INR VBG pH Sodium 132 L Potassium Chloride Carbon Dioxide BUN Creatinine 0.2 L Glucose 101 H POC Glucose 119 H Lactic Acid Calcium 7.6 L Phosphorus Magnesium Total Bilirubin AST Total Protein Albumin Crossmatch 05/01/18 05/01/18 05/01/18 06:30 16:09 23:42 WBC RBC Hgb Hct RDW Lymph % (Auto) [place] % (Auto) Lymph # Seg Neutrophils % Seg Neuts % (Manual) Lymphocytes % (Manual) Seg Neutrophils # Man Lymphocytes # (Manual) PT INR VBG pH Sodium Potassium Chloride Carbon Dioxide BUN Creatinine Glucose POC Glucose 126 H 160 H 113 H Lactic Acid Calcium Phosphorus Magnesium Total Bilirubin AST Total Protein Albumin Crossmatch 05/02/18 05/02/18 05/02/18 04:55 06:41 11:53 WBC RBC Hgb Hct RDW Lymph % (Auto) [place] % (Auto) Lymph # Seg Neutrophils % Seg Neuts % (Manual) Lymphocytes % (Manual) Seg Neutrophils # Man Lymphocytes # (Manual) PT INR VBG pH Sodium 134 L Potassium Chloride Carbon Dioxide BUN Creatinine 0.2 L Glucose 113 H POC Glucose 146 H 113 H Lactic Acid Calcium 7.4 L Phosphorus Magnesium Total Bilirubin AST Total Protein Albumin Crossmatch Allied health notes reviewed: nursing
[2018-05-02] MEDS ORDERED: TPN ADULT 1,800 ML IV SCH (20:00)
[2018-05-02] MEDS: NEURONTIN PO SCH (20:51)
[2018-05-02] MEDS: LOPRESSOR IV PRN (23:39)
[2018-05-03] MEDS: DILAUDID IV PRN ×8 (00:21→23:16)
[2018-05-03] MEDS: ZOFRAN IV PRN ×2 (03:36→07:59)
[2018-05-03] MEDS: NORCO 5/325 PO PRN ×5 (05:47→22:22)
[2018-05-03] MEDS: FLAGYL 500 MG/100 ML 500 MG/100 ML BAG IV SCH (05:48)
[2018-05-03] MEDS: NEURONTIN PO SCH ×3 (08:08→19:55)
[2018-05-03] MEDS: PROVENTIL IH SCH ×3 (08:55→20:50)
[2018-05-03] MEDS: PEPCID IV SCH ×2 (10:01→23:19)
[2018-05-03] MEDS: COZAAR PO SCH (10:01)
[2018-05-03] MEDS: LOPRESSOR IV PRN ×2 (10:02→20:08)
[2018-05-03] MEDS: ROCEPHIN/NS 2 GM/100 ML 2 GM/100 ML BAG IV SCH (10:02)
--- NOTE | 2018-05-03 10:03 | Progress Note ---
Assessment and Plan POD # 8 Pt continues to feel better. sump drain 100 cc/12 hrs Abd soft. non tender at present stable continue present care. will need f/u CT in around 2 wks pending drainage totals Selected Entries 05/03/18 05/03/18 08:00 08:19 Temperature 97.2 F L Pulse Rate 97 H Respiratory 18 Rate Blood Pressure 185/93 [Right] Laboratory Tests 05/02/18 04:55 Sodium 134 L Potassium 3.8 Chloride 99.2 Carbon Dioxide 26 Anion Gap 13 BUN 10 Creatinine 0.2 L Objective Vital Signs - 12hr 05/02/18 05/03/18 05/03/18 23:28 03:08 07:57 Temperature 98.2 F 98.0 F Pulse Rate 101 H 97 H Respiratory 17 18 20 Rate Blood Pressure 180/86 176/83 Blood Pressure [Right] O2 Sat by Pulse 96 96 Oximetry 05/03/18 05/03/18 08:00 08:19 Temperature 97.2 F L Pulse Rate 95 H 97 H Respiratory 18 Rate Blood Pressure Blood Pressure 185/93 [Right] O2 Sat by Pulse 97 Oximetry - Labs 04/30/18 05:41 05/02/18 04:55
[2018-05-03 10:38] LABS: Basophils # (Auto) 0.1 K/mm3 (0.0-0.1); Eosinophils # (Auto) 0.1 K/mm3 (0.0-0.4); Eosinophils % (Auto) 1.2 % (0.0-4.3); Hematocrit 28.7 % (30.3-42.9); Hemoglobin 9.7 gm/dl (10.1-14.3); Lymphocytes # (Auto) 1.3 K/mm3 (1.2-5.4); Lymphocytes % (Auto) 23.9 % (13.4-35.0); Mean Corpuscular HGB Conc 34 % (30-34); Mean Corpuscular Volume 85 fl (79-97); Monocytes # (Auto) 0.5 K/mm3 (0.0-0.8); Platelet Count 189 K/mm3 (140-440); Red Blood Count 3.36 M/mm3 (3.65-5.03); Red Cell Distribution Width 16.3 % (13.2-15.2)
--- NOTE | 2018-05-03 11:13 | Progress Note ---
Assessment and Plan Cultures: 04/18/2018 blood cultures: no growth thus far 04/18/2018 urine culture: No growth 04/19/2018 intra-abdominal culture: E.Coli and Beta hemolytic Group C 04/25/2018 intra-abdominal culture: E.coli and Katerine albicans A/P: 57-year-old female with hypertension, neurofibromatosis, hepatitis C, COPD, nicotine dependence admitted with: 1) Sepsis Resolved, secondary to gangrenous and perforated appendix causing intra-abdominal/pelvic abscess: Status post exploratory laparotomy and evacuati on of pelvic abscess, back to OR on 04/25/2018 for drain dislodgement. Clinically stable, no fevers. Continue current abx, based on culture growth of E.coli and Katerine albicans. Slow bowel recovery. 2) Chronic hep C: untreated. will need outpatient follow up. 3) Extensive tobacco abuse: encouraged to quit. Recs: Discontinued Ceftriaxone and Flagyl, Clinically stable Monitor off antibiotics ID is signing off [facility] M: [id number] O:[phone] Subjective Date of service: 05/03/18 Principal diagnosis: Sepsis; Ex-lap appendectomy and evacuation of pelvic abscess; Peritonitis Interval history: Patient seen and examined. patient laying in bed. No fevers or generalized pain. Objective - Exam Narrative Exam: Constitutional: Asleep, easily arousable. no acute distress Head, Ears, Nose: Normocephalic, atraumatic. External ears, nose normal Eyes: Conjunctivae/corneas clear. No icterus. No ptosis. Neck: Supple, no meningeal signs Oral: poor dentition, no thrush Cardiovascular: S1, S2 normal. Respiratory: Good air entry, clear to auscultation bilaterally, 02 @ 4L GI:, bowel sounds, NG tube discontinued Musculoskeletal: No pedal edema, no cyanosis. Skin: No rash or abscess. Tattoos +, fibromas + Hem/Lymphatic: No palpable cervical or supraclavicular nodes. No lymphangitis Psych: Mood ok. Affect normal Neurological: Awake, alert, oriented. No gross abnormality - Constitutional Vitals: Vital Signs Temp Pulse Resp BP Pulse Ox 97.2 F L 76 20 185/93 97 05/03/18 08:00 05/03/18 10:02 05/03/18 11:00 05/03/18 10:02 05/03/18 08:19 Temperature -Last 24 Hours Temperature 97.2 F Temperature 98.0 F Temperature 98.2 F Temperature 97.5 F Temperature 98.1 F Temperature 97.4 F - Labs CBC & Chem 7: 05/03/18 08:46 05/03/18 12:15 Labs: Abnormal lab results 05/02/18 05/02/18 05/02/18 Range/Units 11:53 17:33 23:37 RBC (3.65-5.03) M/mm3 Hgb (10.1-14.3) gm/dl Hct (30.3-42.9) % RDW (13.2-15.2) % [place] % (Auto) (0.0-7.3) % POC Glucose 113 H 106 H 123 H (70-105) 05/03/18 Range/Units 08:46 RBC 3.36 L (3.65-5.03) M/mm3 Hgb 9.7 L (10.1-14.3) gm/dl Hct 28.7 L (30.3-42.9) % RDW 16.3 H (13.2-15.2) % [place] % (Auto) 10.0 H (0.0-7.3) % POC Glucose (70-105)
[2018-05-03 12:53] LABS: BUN/Creatinine Ratio 55; Blood Urea Nitrogen 11 mg/dL (7-17); Calcium 7.6 mg/dL (8.4-10.2); Hemolysis Index 6
[2018-05-03] MEDS: PROVENTIL IH PRN (15:15)
--- NOTE | 2018-05-03 15:15 | Progress Note ---
Assessment and Plan Assessment and plan: Sepsis. Etiology secondary to gangrenous and perforated appendix causing intra- abdominal/pelvic abscess. Patient is status post exploratory laparotomy with appendectomy and evacuation of pelvic abscess. ID following. Continue antibiotics per ID Perforated appendix s/p exploratory lap. Cont. TPN and IV abx dislodged drain, s/p taken to OR , exploratory lap, irrigation of intraabd cavity and placement of sump drain on 04/25 OOB as tiffanie Chronic hep C. Untreated. Outpatient follow-up. Accel Hypertension. Increase Cozaar to 100mg. Cont. Hydralazine prn. COPD. Compensated. Neurofibromatosis Tobacco abuse. Patient counseled on smoking cessation. History Interval history: The patient is a 57-year-old female with hypertension, neurofibromatosis, hepatitis C, COPD, nicotine dependence presented to the emergency room on 04/18/18 with complaints of abdominal pain going on for [address] scan obtained in the emergency room revealed a ruptured appendix with associated intra-abdominal abscess. General surgery was consulted and the patient underwent an emergent exploratory laparotomy with evacuation of pelvic abscess. She was noted to have a gangrenous, perforated appendix eroding including into the small bowel. As per the op note, the abscess could not be drained as the entire abscess and inflammatory process had trapped the small bowel, which was mobilized and she underwent an ileocolic anastomosis. The patient went back to the OR on 04/25/18 for drain dislodgment. Hospitalist Physical - Constitutional Vitals: Temp Pulse Resp BP Pulse Ox 97.2 F L 76 20 185/93 97 05/03/18 08:00 05/03/18 10:02 05/03/18 13:52 05/03/18 10:02 05/03/18 08:19 General appearance: Present: no acute distress - EENT Eyes: Present: PERRL, EOM intact ENT: hearing intact, clear oral mucosa, dentition normal - Neck Neck: Present: supple, normal ROM - Respiratory Respiratory effort: normal Respiratory: bilateral: CTA - Cardiovascular Rhythm: regular Heart Sounds: Present: S1 & S2. Absent: gallop, rub - Extremities Extremities: no ischemia, No edema, Full ROM - Abdominal General gastrointestinal: soft, non-tender, non-distended, normal bowel sounds - Integumentary Integumentary: Present: clear, warm, dry - Neurologic Neurologic: CNII-XII intact, moves all extremities Results - Labs CBC & Chem 7: 05/03/18 08:46 05/03/18 12:15 Labs: Laboratory Last Values WBC 5.3 K/mm3 (4.5-11.0) 05/03/18 08:46 RBC 3.36 M/mm3 (3.65-5.03) L 05/03/18 08:46 Hgb 9.7 gm/dl (10.1-14.3) L 05/03/18 08:46 Hct 28.7 % (30.3-42.9) L 05/03/18 08:46 MCV 85 fl (79-97) 05/03/18 08:46 MCH 29 pg (28-32) 05/03/18 08:46 MCHC 34 % (30-34) 05/03/18 08:46 RDW 16.3 % (13.2-15.2) H 05/03/18 08:46 Plt Count 189 K/mm3 (140-440) 05/03/18 08:46 Lymph % (Auto) 23.9 % (13.4-35.0) 05/03/18 08:46 [place] % (Auto) 10.0 % (0.0-7.3) H 05/03/18 08:46 Eos % (Auto) 1.2 % (0.0-4.3) 05/03/18 08:46 Baso % (Auto) 1.0 % (0.0-1.8) 05/03/18 08:46 Lymph # 1.3 K/mm3 (1.2-5.4) 05/03/18 08:46 [place] # 0.5 K/mm3 (0.0-0.8) 05/03/18 08:46 Eos # 0.1 K/mm3 (0.0-0.4) 05/03/18 08:46 Baso # 0.1 K/mm3 (0.0-0.1) 05/03/18 08:46 Add Manual Diff Complete 04/30/18 05:41 Total Counted 100 04/30/18 05:41 Seg Neutrophils % 63.9 % (40.0-70.0) 05/03/18 08:46 Seg Neuts % (Manual) 88.0 % (40.0-70.0) H 04/30/18 05:41 Band Neutrophils % 1.0 % 04/30/18 05:41 Lymphocytes % (Manual) 8.0 % (13.4-35.0) L 04/30/18 05:41 Reactive Lymphs % (Man) 0 % 04/30/18 05:41 Monocytes % (Manual) 3.0 % (0.0-7.3) 04/30/18 05:41 Eosinophils % (Manual) 0 % (0.0-4.3) 04/30/18 05:41 Basophils % (Manual) 0 % (0.0-1.8) 04/30/18 05:41 Metamyelocytes % 0 % 04/30/18 05:41 Myelocytes % 0 % 04/30/18 05:41 Promyelocytes % 0 % 04/30/18 05:41 Blast Cells % 0 % 04/30/18 05:41 Nucleated RBC % Not Reportable 04/30/18 05:41 Seg Neutrophils # 3.4 K/mm3 (1.8-7.7) 05/03/18 08:46 Seg Neutrophils # Man 7.7 K/mm3 (1.8-7.7) 04/30/18 05:41 Band Neutrophils # 0.1 K/mm3 04/30/18 05:41 Lymphocytes # (Manual) 0.7 K/mm3 (1.2-5.4) L 04/30/18 05:41 Abs React Lymphs (Man) 0.0 K/mm3 04/30/18 05:41 Monocytes # (Manual) 0.3 K/mm3 (0.0-0.8) 04/30/18 05:41 Eosinophils # (Manual) 0.0 K/mm3 (0.0-0.4) 04/30/18 05:41 Basophils # (Manual) 0.0 K/mm3 (0.0-0.1) 04/30/18 05:41 Metamyelocytes # 0.0 K/mm3 04/30/18 05:41 Myelocytes # 0.0 K/mm3 04/30/18 05:41 Promyelocytes # 0.0 K/mm3 04/30/18 05:41 Blast Cells # 0.0 K/mm3 04/30/18 05:41 WBC Morphology Not Reportable 04/30/18 05:41 Hypersegmented Neuts Not Reportable 04/30/18 05:41 Hyposegmented Neuts Not Reportable 04/30/18 05:41 Hypogranular Neuts Not Reportable 04/30/18 05:41 Smudge Cells Not Reportable 04/30/18 05:41 Toxic Granulation Not Reportable 04/30/18 05:41 Toxic Vacuolation Not Reportable 04/30/18 05:41 Dohle Bodies Not Reportable 04/30/18 05:41 Pelger-Huet Anomaly Not Reportable 04/30/18 05:41 Nicole Rods Not Reportable 04/30/18 05:41 Platelet Estimate Appears normal 04/30/18 05:41 Clumped Platelets Not Reportable 04/30/18 05:41 Plt Clumps, EDTA Not Reportable 04/30/18 05:41 Large Platelets Not Reportable 04/30/18 05:41 Giant Platelets Not Reportable 04/30/18 05:41 Platelet Satelliting Not Reportable 04/30/18 05:41 Plt Morphology Comment Not Reportable 04/30/18 05:41 RBC Morphology Not Reportable 04/30/18 05:41 Dimorphic RBCs Not Reportable 04/30/18 05:41 Polychromasia Not Reportable 04/30/18 05:41 Hypochromasia 1+ 04/30/18 05:41 Poikilocytosis Not Reportable 04/30/18 05:41 Anisocytosis 1+ 04/30/18 05:41 Microcytosis Not Reportable 04/30/18 05:41 Macrocytosis Not Reportable 04/30/18 05:41 Spherocytes Not Reportable 04/30/18 05:41 Pappenheimer Bodies Not Reportable 04/30/18 05:41 Sickle Cells Not Reportable 04/30/18 05:41 Target Cells Not Reportable 04/30/18 05:41 Tear Drop Cells Not Reportable 04/30/18 05:41 Ovalocytes Few 04/30/18 05:41 Stomatocytes Few 04/29/18 05:18 Helmet Cells Not Reportable 04/30/18 05:41 Sp[place] Bodies Not Reportable 04/30/18 05:41 [place] Rings Not Reportable 04/30/18 05:41 Philip Cells Not Reportable 04/30/18 05:41 Bite Cells Not Reportable 04/30/18 05:41 Crenated Cell Not Reportable 04/30/18 05:41 Elliptocytes Not Reportable 04/30/18 05:41 Acanthocytes (Spur) Not Reportable 04/30/18 05:41 Rouleaux Not Reportable 04/30/18 05:41 Hemoglobin C Crystals Not Reportable 04/30/18 05:41 Schistocytes Not Reportable 04/30/18 05:41 Malaria parasites Not Reportable 04/30/18 05:41 Hung Bodies Not Reportable 04/30/18 05:41 Hem Pathologist Commnt No 04/30/18 05:41 PT 15.3 Sec. (12.2-14.9) H 04/22/18 05:19 INR 1.17 (0.87-1.13) H 04/22/18 05:19 APTT 29.4 Sec. (24.2-36.6) 04/19/18 05:19 POC ABG pH 7.367 (7.35-7.45) 04/19/18 00:19 POC ABG pCO2 36.8 (35-45) 04/19/18 00:19 POC ABG pO2 84 (80-105) 04/19/18 00:19 POC ABG HCO3 21.1 04/19/18 00:19 POC ABG Total CO2 22 04/19/18 00:19 POC ABG O2 Sat 96 04/19/18 00:19 POC ABG Base Excess -4 04/19/18 00:19 VBG pH 7.439 (7.320-7.420) H 04/18/18 14:30 FiO2 32 % 04/19/18 00:19 Sodium 136 mmol/L (137-145) L 05/03/18 12:15 Potassium 3.9 mmol/L (3.6-5.0) 05/03/18 12:15 Chloride 103.2 mmol/L (98-107) 05/03/18 12:15 Carbon Dioxide 26 mmol/L (22-30) 05/03/18 12:15 Anion Gap 11 mmol/L 05/03/18 12:15 BUN 11 mg/dL (7-17) 05/03/18 12:15 Creatinine 0.2 mg/dL (0.7-1.2) L 05/03/18 12:15 Estimated GFR > 60 ml/min 05/03/18 12:15 BUN/Creatinine Ratio 55 % 05/03/18 12:15 Glucose 131 mg/dL (65-100) H 05/03/18 12:15 POC Glucose 109 (70-105) H 05/03/18 11:54 Lactic Acid 0.90 mmol/L (0.7-2.0) 04/18/18 18:41 Calcium 7.6 mg/dL (8.4-10.2) L 05/03/18 12:15 Phosphorus 3.30 mg/dL (2.5-4.5) 05/03/18 12:15 Magnesium 2.00 mg/dL (1.7-2.3) 05/03/18 12:15 Total Bilirubin 0.40 mg/dL (0.1-1.2) 04/28/18 06:00 AST 26 units/L (5-40) 04/28/18 06:00 ALT 20 units/L (7-56) 04/28/18 06:00 Alkaline Phosphatase 73 units/L (35-129) 04/28/18 06:00 Total Protein 4.3 g/dL (6.3-8.2) L 04/28/18 06:00 Albumin 2.1 g/dL (3.9-5) L 04/28/18 06:00 Albumin/Globulin Ratio 1.0 % 04/28/18 06:00 Urine Color Yellow (Yellow) 04/20/18 13:35 Urine Turbidity Clear (Clear) 04/20/18 13:35 Urine pH 5.0 (5.0-7.0) 04/20/18 13:35 Ur Specific [place] 1.011 (1.003-1.030) 04/20/18 13:35 Urine Protein <15 mg/dl mg/dL (Negative) 04/20/18 13:35 Urine Glucose (UA) Neg mg/dL (Negative) 04/20/18 13:35 Urine Ketones 20 mg/dL (Negative) 04/20/18 13:35 Urine Blood Sm (Negative) 04/20/18 13:35 Urine Nitrite Neg (Negative) 04/20/18 13:35 Urine Bilirubin Neg (Negative) 04/20/18 13:35 Urine Urobilinogen 2.0 mg/dL (<2.0) 04/20/18 13:35 Ur Leukocyte Esterase Tr (Negative) 04/20/18 13:35 Urine WBC (Auto) 2.0 /HPF (0.0-6.0) 04/20/18 13:35 Urine RBC (Auto) 1.0 /HPF (0.0-6.0) 04/20/18 13:35 U Epithel Cells (Auto) 2.0 /HPF (0-13.0) 04/18/18 16:45 Urine Bacteria (Auto) 2+ /HPF (Negative) 04/18/18 16:45 Urine Mucus Few /HPF 04/20/18 13:35 Blood Type O POSITIVE 04/19/18 13:05 Antibody Screen Negative 04/19/18 13:05 Crossmatch See Detail 04/19/18 13:05 Nutrition/Malnutrition Assess - Dietary Evaluation Nutrition/Malnutrition Findings: Nutrition Notes Start: 04/24/18 09:13 Freq: Status: Active Protocol: Document 05/02/18 12:45 MARCO (Rec: 05/02/18 12:52 MARCO [email or web address] [email or web address]) Nutrition Notes Initial or Follow up Reassessment Other Pertinent Diagnosis Perforated appendix s/p exp lap Current Diet TPN at 75ml/hr Labs/Tests Na 134 Pertinent Medications Reviewed Height 5 ft 1 in Weight 48.1 kg Usual Body Weight 49.5 kg [place] Body Weight (kg) 47.72 BMI 20.0 Weight change and time frame Current wt obtained from bed scale Subjective/Other Information Day 6 TPN. Pt reports that she is allowed 5 popsicles daily now. Percent of energy/protein needs met: 95% energy 100% pro Burn Absent Trauma Absent #2 Nutrition Diagnosis Increased nutrient needs ( specify in comment below) Diagnosis Progress(for reassessment Continues documentation) #1 Nutrition Diagnosis Inadequate oral intake Diagnosis Progress(for reassessment Continues documentation) Is patient on ventilator? No Is Patient Ambulatory and/or Out of Bed Yes [facility] [ [id number] [id number]] Calculation Used for Recommendations [facility] Additional Notes Pro needs 1.25-1.5g/k-72g /day Fluid needs 1ml/kcal Nutrition Intervention Nutrition Support: Continue TPN at 75ml/hr: MVI, 13.9% dextrose, 80mEq K, 30mmol Phos. Osmolality: 1688 . Kcal 1,250 Protein (gm) 100 Carbohydrates (gm) 250 Fat (gm) 0 Fluid (mL) 1,800 Fiber (gm) 0 Goal #1 CPN to meet 90-100% energy and pro needs Goal #2 Wt maintenance Follow-Up By: 05/03/18 Additional Comments Labs in am: BMP, Mg, Phos
--- NOTE | 2018-05-03 16:16 | Progress Note ---
Assessment and Plan Sepsis. Etiology secondary to gangrenous and perforated appendix causing intra- abdominal/pelvic abscess. status post exploratory laparotomy with appendectomy and evacuation of pelvic abscess. Intrabdominal sepsis/peritonitis Ruptured appendix with abdominal abscess Tobacco abuse disorder COPD Neurofibromatosis - continue supplemental oxygen to keep O2 sats > 90% - continue bronchodilators with pulmonary hygiene per RT - advance diet per surgeon (remains on TPN now) - continue aspiration precautions - abdominal drain to suction (adjust per surgeon) - complete antibiotics course and adjust per ID - follow cultures and clinically for AB's de-escalation - IV fluids per surgeon - VTE prophylaxis - PT/OT/Mobility, OOB to chair daily - continue incentive spirometry - continue nicotine withdrawal precautions - Smoking cessation counselling was done at the bedside again today - Analgesia, pain management - NPO for now, serial abdominal exams ... re-evaluate in am & prn Subjective Date of service: 05/03/18 Principal diagnosis: Sepsis; Ex-lap appendectomy and evacuation of pelvic abscess; Peritonitis Interval history: Patient is seen today for: Sepsis; status post exploratory laparotomy with appendectomy and evacuation of pelvic abscess; Intrabdominal sepsis/peritonitis; Ruptured appendix with abdominal abscess Seen and examined at bedside; 24hour events reviewed; nursing and respiratory care staff consulted; no adverse overnight events reported to me; resting in bed; no new issues respiratory-matta; remains on supplemental oxygen Objective Vital Signs - 12hr 05/03/18 05/03/18 05/03/18 07:57 08:00 08:19 Temperature 97.2 F L Pulse Rate 95 H 97 H Respiratory 20 18 Rate Blood Pressure Blood Pressure 185/93 [Right] O2 Sat by Pulse 97 Oximetry 05/03/18 05/03/18 05/03/18 08:27 10:01 10:02 Temperature Pulse Rate 76 76 Respiratory 20 Rate Blood Pressure 185/93 185/93 Blood Pressure [Right] O2 Sat by Pulse Oximetry 05/03/18 05/03/18 05/03/18 10:03 11:00 11:03 Temperature Pulse Rate Respiratory 20 20 16 Rate Blood Pressure Blood Pressure [Right] O2 Sat by Pulse Oximetry 05/03/18 05/03/18 05/03/18 11:30 11:52 13:51 Temperature Pulse Rate 91 H Respiratory 20 20 Rate Blood Pressure Blood Pressure [Right] O2 Sat by Pulse 96 Oximetry 05/03/18 05/03/18 13:52 15:00 Temperature 97.9 F Pulse Rate 101 H Respiratory 20 18 Rate Blood Pressure Blood Pressure 111/59 [Right] O2 Sat by Pulse Oximetry Constitutional: no acute distress, alert, other (chronically ill looking this middle aged CF, normocephalic) Eyes: non-icteric ENT: oropharynx moist, other (Mallampati 2) Neck: supple, no lymphadenopathy, no JVD Effort: mildly labored Ascultation: Bilateral: diminished breath sounds, rhonchi (scant in bases) Percussion: Bilateral: not dull Cardiovascular: regular rate and rhythm Gastrointestinal: normoactive bowel sounds, soft, tender (bhargav-op site), non- distended, other (Drain in place with non-bloody effluent) Integumentary: other (poor turgor; ? neurofibromatous nodules over body) Extremities: no cyanosis, no edema, pink and warm, pulses normal Neurologic: normal mental status, non-focal exam, pupils equal and round, motor strength normal and Psychiatric: mood appropriate, anxious CBC and BMP: 05/14/18 06:40 05/14/18 06:40 ABG, PT/INR, D-dimer: ABG POC ABG pH 7.367 (7.35-7.45) 04/19/18 00:19 POC ABG pCO2 36.8 (35-45) 04/19/18 00:19 POC ABG pO2 84 (80-105) 04/19/18 00:19 POC ABG HCO3 21.1 04/19/18 00:19 POC ABG Total CO2 22 04/19/18 00:19 POC ABG O2 Sat 96 04/19/18 00:19 PT/INR, D-dimer PT 15.3 Sec. (12.2-14.9) H 04/22/18 05:19 INR 1.17 (0.87-1.13) H 04/22/18 05:19 Abnormal lab findings: Abnormal Labs 04/18/18 04/18/18 04/18/18 14:30 14:30 14:30 WBC 18.6 H RBC Hgb Hct RDW Lymph % (Auto) [place] % (Auto) Lymph # Seg Neutrophils % Seg Neuts % (Manual) 79.0 H Lymphocytes % (Manual) 4.0 L Seg Neutrophils # Man 14.7 H Lymphocytes # (Manual) 0.7 L PT 16.3 H INR 1.27 H VBG pH Sodium 121 L Potassium 3.0 L Chloride 78.0 L Carbon Dioxide BUN Creatinine 0.5 L Glucose 110 H POC Glucose Lactic Acid Calcium Phosphorus Magnesium Total Bilirubin 1.30 H AST 42 H Total Protein Albumin 3.1 L Crossmatch 04/18/18 04/18/18 04/18/18 14:30 14:30 23:59 WBC RBC Hgb Hct RDW 15.8 H Lymph % (Auto) [place] % (Auto) Lymph # Seg Neutrophils % Seg Neuts % (Manual) 78.0 H Lymphocytes % (Manual) 6.0 L Seg Neutrophils # Man Lymphocytes # (Manual) 0.5 L PT INR VBG pH 7.439 H Sodium Potassium Chloride Carbon Dioxide BUN Creatinine Glucose POC Glucose Lactic Acid 3.60 H* Calcium Phosphorus Magnesium Total Bilirubin AST Total Protein Albumin Crossmatch 04/18/18 04/19/18 04/19/18 23:59 05:19 05:19 WBC 15.0 H RBC Hgb Hct RDW 15.3 H Lymph % (Auto) [place] % (Auto) Lymph # Seg Neutrophils % Seg Neuts % (Manual) Lymphocytes % (Manual) 5.0 L Seg Neutrophils # Man 8.3 H Lymphocytes # (Manual) 0.8 L PT INR VBG pH Sodium 130 L D 133 L Potassium 3.5 L 3.3 L Chloride Carbon Dioxide 20 L D BUN Creatinine 0.5 L 0.6 L Glucose 140 H 115 H POC Glucose Lactic Acid Calcium 7.5 L 7.4 L Phosphorus Magnesium Total Bilirubin AST Total Protein 4.4 L D 4.1 L Albumin 2.0 L 1.9 L Crossmatch 04/19/18 04/19/18 04/20/18 05:19 13:05 05:18 WBC RBC Hgb Hct RDW Lymph % (Auto) [place] % (Auto) Lymph # Seg Neutrophils % Seg Neuts % (Manual) Lymphocytes % (Manual) Seg Neutrophils # Man Lymphocytes # (Manual) PT 19.4 H 17.4 H INR 1.59 H 1.38 H VBG pH Sodium Potassium Chloride Carbon Dioxide BUN Creatinine Glucose POC Glucose Lactic Acid Calcium Phosphorus Magnesium Total Bilirubin AST Total Protein Albumin Crossmatch See Detail 04/20/18 04/20/18 04/21/18 13:47 13:47 04:52 WBC RBC 3.29 L 3.10 L Hgb 9.6 L 8.8 L Hct 28.1 L D 26.6 L RDW 15.3 H 15.4 H Lymph % (Auto) 5.6 L [place] % (Auto) Lymph # 0.4 L Seg Neutrophils % 87.3 H Seg Neuts % (Manual) Lymphocytes % (Manual) Seg Neutrophils # Man Lymphocytes # (Manual) PT INR VBG pH Sodium Potassium Chloride Carbon Dioxide BUN Creatinine 0.3 L Glucose 102 H POC Glucose Lactic Acid Calcium 8.0 L Phosphorus Magnesium Total Bilirubin AST Total Protein Albumin Crossmatch 04/21/18 04/22/18 04/22/18 04:52 05:19 05:19 WBC RBC 3.64 L Hgb Hct RDW Lymph % (Auto) 8.5 L [place] % (Auto) 9.9 H Lymph # 0.6 L Seg Neutrophils % 81.0 H Seg Neuts % (Manual) Lymphocytes % (Manual) Seg Neutrophils # Man Lymphocytes # (Manual) PT 15.3 H INR 1.17 H VBG pH Sodium Potassium 3.2 L Chloride Carbon Dioxide BUN Creatinine 0.3 L Glucose POC Glucose Lactic Acid Calcium 7.6 L Phosphorus Magnesium Total Bilirubin AST Total Protein Albumin Crossmatch 04/22/18 04/24/18 04/24/18 05:19 07:19 07:19 WBC RBC Hgb Hct RDW Lymph % (Auto) [place] % (Auto) Lymph # Seg Neutrophils % Seg Neuts % (Manual) Lymphocytes % (Manual) Seg Neutrophils # Man Lymphocytes # (Manual) PT INR VBG pH Sodium Potassium 3.4 L 2.9 L* Chloride Carbon Dioxide BUN Creatinine 0.3 L 0.3 L Glucose 103 H POC Glucose Lactic Acid Calcium 7.7 L 7.5 L Phosphorus Magnesium 1.60 L Total Bilirubin AST Total Protein 4.3 L Albumin 2.2 L Crossmatch 04/24/18 04/25/18 04/25/18 07:23 06:28 06:28 WBC RBC Hgb Hct RDW 15.3 H 15.9 H Lymph % (Auto) 10.1 L [place] % (Auto) Lymph # 0.8 L Seg Neutrophils % 80.6 H Seg Neuts % (Manual) Lymphocytes % (Manual) 9.0 L Seg Neutrophils # Man Lymphocytes # (Manual) 0.7 L PT INR VBG pH Sodium Potassium 3.0 L Chloride Carbon Dioxide BUN 5 L Creatinine 0.2 L Glucose 108 H POC Glucose Lactic Acid Calcium 7.4 L Phosphorus Magnesium Total Bilirubin AST Total Protein 4.6 L Albumin 2.5 L Crossmatch 04/25/18 04/26/18 04/26/18 06:28 05:45 05:45 WBC 11.9 H RBC Hgb Hct RDW 16.2 H Lymph % (Auto) [place] % (Auto) Lymph # Seg Neutrophils % Seg Neuts % (Manual) Lymphocytes % (Manual) Seg Neutrophils # Man Lymphocytes # (Manual) PT INR VBG pH Sodium Potassium Chloride Carbon Dioxide BUN 5 L Creatinine 0.2 L Glucose 119 H POC Glucose Lactic Acid Calcium 7.7 L Phosphorus 2.00 L 2.20 L Magnesium Total Bilirubin AST Total Protein Albumin Crossmatch 04/27/18 04/28/18 04/28/18 05:33 06:00 06:00 WBC 11.2 H RBC Hgb Hct RDW 16.0 H Lymph % (Auto) [place] % (Auto) Lymph # Seg Neutrophils % Seg Neuts % (Manual) 92.0 H Lymphocytes % (Manual) 5.0 L Seg Neutrophils # Man 10.3 H Lymphocytes # (Manual) 0.6 L PT INR VBG pH Sodium Potassium 3.4 L 3.1 L Chloride Carbon Dioxide BUN 6 L 4 L Creatinine 0.2 L 0.2 L Glucose 119 H POC Glucose Lactic Acid Calcium 7.5 L 7.1 L Phosphorus 2.00 L 2.10 L Magnesium 1.50 L Total Bilirubin AST Total Protein 4.3 L Albumin 2.1 L Crossmatch 04/29/18 04/29/18 04/29/18 05:18 05:18 17:49 WBC 12.0 H RBC Hgb Hct RDW 16.0 H Lymph % (Auto) [place] % (Auto) Lymph # Seg Neutrophils % Seg Neuts % (Manual) 87.0 H Lymphocytes % (Manual) 10.0 L Seg Neutrophils # Man 10.4 H Lymphocytes # (Manual) PT INR VBG pH Sodium 135 L Potassium Chloride Carbon Dioxide BUN Creatinine 0.2 L Glucose 120 H POC Glucose 108 H Lactic Acid Calcium 7.5 L Phosphorus Magnesium Total Bilirubin AST Total Protein Albumin Crossmatch 04/30/18 04/30/18 04/30/18 00:03 05:18 05:41 WBC RBC Hgb Hct RDW Lymph % (Auto) [place] % (Auto) Lymph # Seg Neutrophils % Seg Neuts % (Manual) Lymphocytes % (Manual) Seg Neutrophils # Man Lymphocytes # (Manual) PT INR VBG pH Sodium 133 L Potassium Chloride Carbon Dioxide BUN Creatinine 0.2 L Glucose 119 H POC Glucose 112 H 110 H Lactic Acid Calcium 7.5 L Phosphorus Magnesium Total Bilirubin AST Total Protein Albumin Crossmatch 04/30/18 05/01/18 05/01/18 05:41 00:39 04:45 WBC RBC 3.60 L Hgb Hct RDW 16.0 H Lymph % (Auto) [place] % (Auto) Lymph # Seg Neutrophils % Seg Neuts % (Manual) 88.0 H Lymphocytes % (Manual) 8.0 L Seg Neutrophils # Man Lymphocytes # (Manual) 0.7 L PT INR VBG pH Sodium 132 L Potassium Chloride Carbon Dioxide BUN Creatinine 0.2 L Glucose 101 H POC Glucose 119 H Lactic Acid Calcium 7.6 L Phosphorus Magnesium Total Bilirubin AST Total Protein Albumin Crossmatch 05/01/18 05/01/18 05/01/18 06:30 16:09 23:42 WBC RBC Hgb Hct RDW Lymph % (Auto) [place] % (Auto) Lymph # Seg Neutrophils % Seg Neuts % (Manual) Lymphocytes % (Manual) Seg Neutrophils # Man Lymphocytes # (Manual) PT INR VBG pH Sodium Potassium Chloride Carbon Dioxide BUN Creatinine Glucose POC Glucose 126 H 160 H 113 H Lactic Acid Calcium Phosphorus Magnesium Total Bilirubin AST Total Protein Albumin Crossmatch 05/02/18 05/02/18 05/02/18 04:55 06:41 11:53 WBC RBC Hgb Hct RDW Lymph % (Auto) [place] % (Auto) Lymph # Seg Neutrophils % Seg Neuts % (Manual) Lymphocytes % (Manual) Seg Neutrophils # Man Lymphocytes # (Manual) PT INR VBG pH Sodium 134 L Potassium Chloride Carbon Dioxide BUN Creatinine 0.2 L Glucose 113 H POC Glucose 146 H 113 H Lactic Acid Calcium 7.4 L Phosphorus Magnesium Total Bilirubin AST Total Protein Albumin Crossmatch 05/02/18 05/02/18 05/03/18 17:33 23:37 08:46 WBC RBC 3.36 L Hgb 9.7 L Hct 28.7 L RDW 16.3 H Lymph % (Auto) [place] % (Auto) 10.0 H Lymph # Seg Neutrophils % Seg Neuts % (Manual) Lymphocytes % (Manual) Seg Neutrophils # Man Lymphocytes # (Manual) PT INR VBG pH Sodium Potassium Chloride Carbon Dioxide BUN Creatinine Glucose POC Glucose 106 H 123 H Lactic Acid Calcium Phosphorus Magnesium Total Bilirubin AST Total Protein Albumin Crossmatch 05/03/18 05/03/18 11:54 12:15 WBC RBC Hgb Hct RDW Lymph % (Auto) [place] % (Auto) Lymph # Seg Neutrophils % Seg Neuts % (Manual) Lymphocytes % (Manual) Seg Neutrophils # Man Lymphocytes # (Manual) PT INR VBG pH Sodium 136 L Potassium Chloride Carbon Dioxide BUN Creatinine 0.2 L Glucose 131 H POC Glucose 109 H Lactic Acid Calcium 7.6 L Phosphorus Magnesium Total Bilirubin AST Total Protein Albumin Crossmatch Allied health notes reviewed: nursing
[2018-05-03] MEDS ORDERED: TPN ADULT 1,800 ML IV SCH (20:00)
[2018-05-03] MEDS ORDERED: NORMODYNE IV ONE (21:57)
[2018-05-03] MEDS ORDERED: NORMODYNE IV PRN (22:16)
[2018-05-03] MEDS ORDERED: NORVASC PO ONE (23:00)
[2018-05-04] MEDS: DILAUDID IV PRN ×6 (01:57→20:30)
[2018-05-04] MEDS: NORCO 5/325 PO PRN ×2 (06:08→23:19)
[2018-05-04] MEDS: PROVENTIL IH SCH ×3 (07:17→20:22)
[2018-05-04 07:21] LABS: Basophils # (Auto) 0.1 K/mm3 (0.0-0.1); Eosinophils # (Auto) 0.1 K/mm3 (0.0-0.4); Eosinophils % (Auto) 1.7 % (0.0-4.3); Hematocrit 29.8 % (30.3-42.9); Hemoglobin 10.2 gm/dl (10.1-14.3); Lymphocytes # (Auto) 1.3 K/mm3 (1.2-5.4); Lymphocytes % (Auto) 22.1 % (13.4-35.0); Mean Corpuscular HGB Conc 34 % (30-34); Mean Corpuscular Volume 85 fl (79-97); Monocytes # (Auto) 0.5 K/mm3 (0.0-0.8); Monocytes % (Auto) 8.6 % (0.0-7.3); Platelet Count 162 K/mm3 (140-440); Red Blood Count 3.52 M/mm3 (3.65-5.03); Red Cell Distribution Width 16.2 % (13.2-15.2)
[2018-05-04 08:43] LABS: BUN/Creatinine Ratio 55; Blood Urea Nitrogen 11 mg/dL (7-17); Calcium 7.7 mg/dL (8.4-10.2); Hemolysis Index 3
[2018-05-04] MEDS: PEPCID IV SCH ×2 (09:12→21:27)
[2018-05-04] MEDS: NEURONTIN PO SCH ×3 (09:13→20:28)
[2018-05-04] MEDS: COZAAR PO SCH (09:14)
--- NOTE | 2018-05-04 11:49 | Progress Note ---
Assessment and Plan Sepsis. Etiology secondary to gangrenous and perforated appendix causing intra- abdominal/pelvic abscess( resolved). status post exploratory laparotomy with appendectomy and evacuation of pelvic abscess. Intrabdominal sepsis/peritonitis Ruptured appendix with abdominal abscess Tobacco abuse disorder COPD, probable Neurofibromatosis - continue supplemental oxygen to keep O2 sats 88-90% - continue bronchodilators with pulmonary hygiene per RT - advance diet per surgeon - abdominal drain to suction (adjust per surgeon) - complete antibiotics course and adjust per ID - VTE prophylaxis - PT/OT/Mobility, OOB to chair daily, increase activity PT at the bedside - continue incentive spirometry - continue nicotine withdrawal precautions - Smoking cessation counselling was done at the bedside(ongoing) - Analgesia, pain management Subjective Date of service: 05/04/18 Principal diagnosis: Sepsis; Ex-lap appendectomy and evacuation of pelvic abscess; Peritonitis Interval history: Patient is seen today for: Sepsis; status post exploratory laparotomy with appendectomy and evacuation of pelvic abscess; Intrabdominal sepsis/peritonitis; Ruptured appendix with abdominal abscess Seen and examined at bedside; 24hour events reviewed; nursing and respiratory care staff consulted; no adverse overnight events reported to me; resting peacefully in bed; feels better; denies acute chest pains or palpitations; tolerating popsicles; no N/V/F/C Objective Vital Signs - 12hr 05/03/18 05/04/18 05/04/18 23:51 03:41 06:50 Temperature 97.9 F 98.2 F Pulse Rate 103 H 107 H 120 H Pulse Rate [ Bilateral] Respiratory 18 20 Rate Respiratory Rate [Bilateral ] Blood Pressure 165/83 161/90 142/75 O2 Sat by Pulse 97 95 Oximetry 05/04/18 05/04/18 05/04/18 07:17 07:31 09:14 Temperature Pulse Rate 120 H Pulse Rate [ 115 H 111 H Bilateral] Respiratory Rate Respiratory 17 16 Rate [Bilateral ] Blood Pressure 142/75 O2 Sat by Pulse 96 Oximetry 05/04/18 11:05 Temperature 98.1 F Pulse Rate 104 H Pulse Rate [ Bilateral] Respiratory 20 Rate Respiratory Rate [Bilateral ] Blood Pressure 178/90 O2 Sat by Pulse 98 Oximetry Constitutional: no acute distress, alert, other (chronically ill looking this middle aged CF, normocephalic, neurofibromatosis) Eyes: non-icteric ENT: oropharynx moist, other (Mallampati 2) Neck: supple, no lymphadenopathy, no JVD Effort: normal Ascultation: Bilateral: diminished breath sounds, rhonchi (scant in bases) Percussion: Bilateral: not dull Cardiovascular: regular rate and rhythm Gastrointestinal: normoactive bowel sounds, soft, tender (bhargav-op site), non- distended, other (Drain in place with non-bloody effluent) Integumentary: other ( neurofibromatous nodules over body) Extremities: no cyanosis, no edema, pink and warm, pulses normal Neurologic: normal mental status, non-focal exam, pupils equal and round, motor strength normal and Psychiatric: mood appropriate, affect normal CBC and BMP: 05/04/18 07:03 05/04/18 08:02 ABG, PT/INR, D-dimer: ABG POC ABG pH 7.367 (7.35-7.45) 04/19/18 00:19 POC ABG pCO2 36.8 (35-45) 04/19/18 00:19 POC ABG pO2 84 (80-105) 04/19/18 00:19 POC ABG HCO3 21.1 04/19/18 00:19 POC ABG Total CO2 22 04/19/18 00:19 POC ABG O2 Sat 96 04/19/18 00:19 PT/INR, D-dimer PT 15.3 Sec. (12.2-14.9) H 04/22/18 05:19 INR 1.17 (0.87-1.13) H 04/22/18 05:19 Abnormal lab findings: Abnormal Labs 04/18/18 04/18/18 04/18/18 14:30 14:30 14:30 WBC 18.6 H RBC Hgb Hct RDW Lymph % (Auto) [place] % (Auto) Lymph # Seg Neutrophils % Seg Neuts % (Manual) 79.0 H Lymphocytes % (Manual) 4.0 L Seg Neutrophils # Man 14.7 H Lymphocytes # (Manual) 0.7 L PT 16.3 H INR 1.27 H VBG pH Sodium 121 L Potassium 3.0 L Chloride 78.0 L Carbon Dioxide BUN Creatinine 0.5 L Glucose 110 H POC Glucose Lactic Acid Calcium Phosphorus Magnesium Total Bilirubin 1.30 H AST 42 H Total Protein Albumin 3.1 L Crossmatch 04/18/18 04/18/18 04/18/18 14:30 14:30 23:59 WBC RBC Hgb Hct RDW 15.8 H Lymph % (Auto) [place] % (Auto) Lymph # Seg Neutrophils % Seg Neuts % (Manual) 78.0 H Lymphocytes % (Manual) 6.0 L Seg Neutrophils # Man Lymphocytes # (Manual) 0.5 L PT INR VBG pH 7.439 H Sodium Potassium Chloride Carbon Dioxide BUN Creatinine Glucose POC Glucose Lactic Acid 3.60 H* Calcium Phosphorus Magnesium Total Bilirubin AST Total Protein Albumin Crossmatch 04/18/18 04/19/18 04/19/18 23:59 05:19 05:19 WBC 15.0 H RBC Hgb Hct RDW 15.3 H Lymph % (Auto) [place] % (Auto) Lymph # Seg Neutrophils % Seg Neuts % (Manual) Lymphocytes % (Manual) 5.0 L Seg Neutrophils # Man 8.3 H Lymphocytes # (Manual) 0.8 L PT INR VBG pH Sodium 130 L D 133 L Potassium 3.5 L 3.3 L Chloride Carbon Dioxide 20 L D BUN Creatinine 0.5 L 0.6 L Glucose 140 H 115 H POC Glucose Lactic Acid Calcium 7.5 L 7.4 L Phosphorus Magnesium Total Bilirubin AST Total Protein 4.4 L D 4.1 L Albumin 2.0 L 1.9 L Crossmatch 04/19/18 04/19/18 04/20/18 05:19 13:05 05:18 WBC RBC Hgb Hct RDW Lymph % (Auto) [place] % (Auto) Lymph # Seg Neutrophils % Seg Neuts % (Manual) Lymphocytes % (Manual) Seg Neutrophils # Man Lymphocytes # (Manual) PT 19.4 H 17.4 H INR 1.59 H 1.38 H VBG pH Sodium Potassium Chloride Carbon Dioxide BUN Creatinine Glucose POC Glucose Lactic Acid Calcium Phosphorus Magnesium Total Bilirubin AST Total Protein Albumin Crossmatch See Detail 04/20/18 04/20/18 04/21/18 13:47 13:47 04:52 WBC RBC 3.29 L 3.10 L Hgb 9.6 L 8.8 L Hct 28.1 L D 26.6 L RDW 15.3 H 15.4 H Lymph % (Auto) 5.6 L [place] % (Auto) Lymph # 0.4 L Seg Neutrophils % 87.3 H Seg Neuts % (Manual) Lymphocytes % (Manual) Seg Neutrophils # Man Lymphocytes # (Manual) PT INR VBG pH Sodium Potassium Chloride Carbon Dioxide BUN Creatinine 0.3 L Glucose 102 H POC Glucose Lactic Acid Calcium 8.0 L Phosphorus Magnesium Total Bilirubin AST Total Protein Albumin Crossmatch 04/21/18 04/22/18 04/22/18 04:52 05:19 05:19 WBC RBC 3.64 L Hgb Hct RDW Lymph % (Auto) 8.5 L [place] % (Auto) 9.9 H Lymph # 0.6 L Seg Neutrophils % 81.0 H Seg Neuts % (Manual) Lymphocytes % (Manual) Seg Neutrophils # Man Lymphocytes # (Manual) PT 15.3 H INR 1.17 H VBG pH Sodium Potassium 3.2 L Chloride Carbon Dioxide BUN Creatinine 0.3 L Glucose POC Glucose Lactic Acid Calcium 7.6 L Phosphorus Magnesium Total Bilirubin AST Total Protein Albumin Crossmatch 04/22/18 04/24/18 04/24/18 05:19 07:19 07:19 WBC RBC Hgb Hct RDW Lymph % (Auto) [place] % (Auto) Lymph # Seg Neutrophils % Seg Neuts % (Manual) Lymphocytes % (Manual) Seg Neutrophils # Man Lymphocytes # (Manual) PT INR VBG pH Sodium Potassium 3.4 L 2.9 L* Chloride Carbon Dioxide BUN Creatinine 0.3 L 0.3 L Glucose 103 H POC Glucose Lactic Acid Calcium 7.7 L 7.5 L Phosphorus Magnesium 1.60 L Total Bilirubin AST Total Protein 4.3 L Albumin 2.2 L Crossmatch 04/24/18 04/25/18 04/25/18 07:23 06:28 06:28 WBC RBC Hgb Hct RDW 15.3 H 15.9 H Lymph % (Auto) 10.1 L [place] % (Auto) Lymph # 0.8 L Seg Neutrophils % 80.6 H Seg Neuts % (Manual) Lymphocytes % (Manual) 9.0 L Seg Neutrophils # Man Lymphocytes # (Manual) 0.7 L PT INR VBG pH Sodium Potassium 3.0 L Chloride Carbon Dioxide BUN 5 L Creatinine 0.2 L Glucose 108 H POC Glucose Lactic Acid Calcium 7.4 L Phosphorus Magnesium Total Bilirubin AST Total Protein 4.6 L Albumin 2.5 L Crossmatch 04/25/18 04/26/18 04/26/18 06:28 05:45 05:45 WBC 11.9 H RBC Hgb Hct RDW 16.2 H Lymph % (Auto) [place] % (Auto) Lymph # Seg Neutrophils % Seg Neuts % (Manual) Lymphocytes % (Manual) Seg Neutrophils # Man Lymphocytes # (Manual) PT INR VBG pH Sodium Potassium Chloride Carbon Dioxide BUN 5 L Creatinine 0.2 L Glucose 119 H POC Glucose Lactic Acid Calcium 7.7 L Phosphorus 2.00 L 2.20 L Magnesium Total Bilirubin AST Total Protein Albumin Crossmatch 04/27/18 04/28/18 04/28/18 05:33 06:00 06:00 WBC 11.2 H RBC Hgb Hct RDW 16.0 H Lymph % (Auto) [place] % (Auto) Lymph # Seg Neutrophils % Seg Neuts % (Manual) 92.0 H Lymphocytes % (Manual) 5.0 L Seg Neutrophils # Man 10.3 H Lymphocytes # (Manual) 0.6 L PT INR VBG pH Sodium Potassium 3.4 L 3.1 L Chloride Carbon Dioxide BUN 6 L 4 L Creatinine 0.2 L 0.2 L Glucose 119 H POC Glucose Lactic Acid Calcium 7.5 L 7.1 L Phosphorus 2.00 L 2.10 L Magnesium 1.50 L Total Bilirubin AST Total Protein 4.3 L Albumin 2.1 L Crossmatch 04/29/18 04/29/18 04/29/18 05:18 05:18 17:49 WBC 12.0 H RBC Hgb Hct RDW 16.0 H Lymph % (Auto) [place] % (Auto) Lymph # Seg Neutrophils % Seg Neuts % (Manual) 87.0 H Lymphocytes % (Manual) 10.0 L Seg Neutrophils # Man 10.4 H Lymphocytes # (Manual) PT INR VBG pH Sodium 135 L Potassium Chloride Carbon Dioxide BUN Creatinine 0.2 L Glucose 120 H POC Glucose 108 H Lactic Acid Calcium 7.5 L Phosphorus Magnesium Total Bilirubin AST Total Protein Albumin Crossmatch 04/30/18 04/30/18 04/30/18 00:03 05:18 05:41 WBC RBC Hgb Hct RDW Lymph % (Auto) [place] % (Auto) Lymph # Seg Neutrophils % Seg Neuts % (Manual) Lymphocytes % (Manual) Seg Neutrophils # Man Lymphocytes # (Manual) PT INR VBG pH Sodium 133 L Potassium Chloride Carbon Dioxide BUN Creatinine 0.2 L Glucose 119 H POC Glucose 112 H 110 H Lactic Acid Calcium 7.5 L Phosphorus Magnesium Total Bilirubin AST Total Protein Albumin Crossmatch 0205/01/18 05/01/18 05:41 00:39 04:45 WBC RBC 3.60 L Hgb Hct RDW 16.0 H Lymph % (Auto) [place] % (Auto) Lymph # Seg Neutrophils % Seg Neuts % (Manual) 88.0 H Lymphocytes % (Manual) 8.0 L Seg Neutrophils # Man Lymphocytes # (Manual) 0.7 L PT INR VBG pH Sodium 132 L Potassium Chloride Carbon Dioxide BUN Creatinine 0.2 L Glucose 101 H POC Glucose 119 H Lactic Acid Calcium 7.6 L Phosphorus Magnesium Total Bilirubin AST Total Protein Albumin Crossmatch 05/01/18 05/01/18 05/01/18 06:30 16:09 23:42 WBC RBC Hgb Hct RDW Lymph % (Auto) [place] % (Auto) Lymph # Seg Neutrophils % Seg Neuts % (Manual) Lymphocytes % (Manual) Seg Neutrophils # Man Lymphocytes # (Manual) PT INR VBG pH Sodium Potassium Chloride Carbon Dioxide BUN Creatinine Glucose POC Glucose 126 H 160 H 113 H Lactic Acid Calcium Phosphorus Magnesium Total Bilirubin AST Total Protein Albumin Crossmatch 05/02/18 05/02/18 05/02/18 04:55 06:41 11:53 WBC RBC Hgb Hct RDW Lymph % (Auto) [place] % (Auto) Lymph # Seg Neutrophils % Seg Neuts % (Manual) Lymphocytes % (Manual) Seg Neutrophils # Man Lymphocytes # (Manual) PT INR VBG pH Sodium 134 L Potassium Chloride Carbon Dioxide BUN Creatinine 0.2 L Glucose 113 H POC Glucose 146 H 113 H Lactic Acid Calcium 7.4 L Phosphorus Magnesium Total Bilirubin AST Total Protein Albumin Crossmatch 05/02/18 05/02/18 05/03/18 17:33 23:37 08:46 WBC RBC 3.36 L Hgb 9.7 L Hct 28.7 L RDW 16.3 H Lymph % (Auto) [place] % (Auto) 10.0 H Lymph # Seg Neutrophils % Seg Neuts % (Manual) Lymphocytes % (Manual) Seg Neutrophils # Man Lymphocytes # (Manual) PT INR VBG pH Sodium Potassium Chloride Carbon Dioxide BUN Creatinine Glucose POC Glucose 106 H 123 H Lactic Acid Calcium Phosphorus Magnesium Total Bilirubin AST Total Protein Albumin Crossmatch 05/03/18 05/03/18 05/04/18 11:54 12:15 06:59 WBC RBC Hgb Hct RDW Lymph % (Auto) [place] % (Auto) Lymph # Seg Neutrophils % Seg Neuts % (Manual) Lymphocytes % (Manual) Seg Neutrophils # Man Lymphocytes # (Manual) PT INR VBG pH Sodium 136 L Potassium Chloride Carbon Dioxide BUN Creatinine 0.2 L Glucose 131 H POC Glucose 109 H 161 H Lactic Acid Calcium 7.6 L Phosphorus Magnesium Total Bilirubin AST Total Protein Albumin Crossmatch 05/04/18 05/04/18 07:03 08:02 WBC RBC 3.52 L Hgb Hct 29.8 L RDW 16.2 H Lymph % (Auto) [place] % (Auto) 8.6 H Lymph # Seg Neutrophils % Seg Neuts % (Manual) Lymphocytes % (Manual) Seg Neutrophils # Man Lymphocytes # (Manual) PT INR VBG pH Sodium 135 L Potassium Chloride Carbon Dioxide BUN Creatinine 0.2 L Glucose 160 H POC Glucose Lactic Acid Calcium 7.7 L Phosphorus Magnesium Total Bilirubin AST Total Protein Albumin Crossmatch Allied health notes reviewed: nursing
--- NOTE | 2018-05-04 12:26 | Progress Note ---
Assessment and Plan Pt feeling well this am without compl. Sump - 350 cc/24 hrs Abd soft. incision clean and dry stable still uncontrolled HTN d/c manoj and steri strip incision today. continue local wd care continue present care Selected Entries 05/04/18 11:05 Temperature 98.1 F Pulse Rate 104 H Respiratory 20 Rate Blood Pressure 178/90 Laboratory Tests 05/04/18 08:02 Sodium 135 L Potassium 4.0 Chloride 98.5 Carbon Dioxide 26 Anion Gap 15 Glucose 160 H Objective Vital Signs - 12hr 05/04/18 05/04/18 05/04/18 03:41 06:50 07:17 Temperature 97.9 F 98.2 F Pulse Rate 107 H 120 H Pulse Rate [ 115 H Bilateral] Respiratory 18 20 Rate Respiratory 17 Rate [Bilateral ] Blood Pressure 161/90 142/75 O2 Sat by Pulse 97 95 Oximetry 05/04/18 05/04/18 05/04/18 07:31 09:14 11:05 Temperature 98.1 F Pulse Rate 120 H 104 H Pulse Rate [ 111 H Bilateral] Respiratory 20 Rate Respiratory 16 Rate [Bilateral ] Blood Pressure 142/75 178/90 O2 Sat by Pulse 96 98 Oximetry - Labs 05/04/18 07:03 05/04/18 08:02 Diabetes panel 05/03/18 05/04/18 Range/Units 12:15 08:02 Sodium 136 L 135 L (137-145) mmol/L Potassium 3.9 4.0 (3.6-5.0) mmol/L Chloride 103.2 98.5 (98-107) mmol/L Carbon Dioxide 26 26 (22-30) mmol/L BUN 11 11 (7-17) mg/dL Creatinine 0.2 L 0.2 L (0.7-1.2) mg/dL Glucose 131 H 160 H (65-100) mg/dL Calcium 7.6 L 7.7 L (8.4-10.2) mg/dL Calcium panel 05/03/18 05/04/18 Range/Units 12:15 08:02 Calcium 7.6 L 7.7 L (8.4-10.2) mg/dL Phosphorus 3.30 (2.5-4.5) mg/dL Pituitary panel 05/03/18 05/04/18 Range/Units 12:15 08:02 Sodium 136 L 135 L (137-145) mmol/L Potassium 3.9 4.0 (3.6-5.0) mmol/L Chloride 103.2 98.5 (98-107) mmol/L Carbon Dioxide 26 26 (22-30) mmol/L BUN 11 11 (7-17) mg/dL Creatinine 0.2 L 0.2 L (0.7-1.2) mg/dL Glucose 131 H 160 H (65-100) mg/dL Calcium 7.6 L 7.7 L (8.4-10.2) mg/dL Adrenal panel 05/03/18 05/04/18 Range/Units 12:15 08:02 Sodium 136 L 135 L (137-145) mmol/L Potassium 3.9 4.0 (3.6-5.0) mmol/L Chloride 103.2 98.5 (98-107) mmol/L Carbon Dioxide 26 26 (22-30) mmol/L BUN 11 11 (7-17) mg/dL Creatinine 0.2 L 0.2 L (0.7-1.2) mg/dL Glucose 131 H 160 H (65-100) mg/dL Calcium 7.6 L 7.7 L (8.4-10.2) mg/dL
--- NOTE | 2018-05-04 17:34 | Progress Note ---
Assessment and Plan Assessment and plan: The patient is a 57-year-old female with hypertension, neurofibromatosis, hepatitis C, COPD, nicotine dependence presented to the emergency room on 04/18/18 with complaints of abdominal pain going on for [address] scan obtained in the emergency room revealed a ruptured appendix with associated intra-abdominal abscess. General surgery was consulted and the patient underwent an emergent exploratory laparotomy with evacuation of pelvic abscess. She was noted to have a gangrenous, perforated appendix eroding including into the small bowel. As per the op note, the abscess could not be drained as the entire abscess and inflammatory process had trapped the small bowel, which was mobilized and she underwent an ileocolic anastomosis. The patient went back to the OR on 04/25/18 for drain dislodgment. Sepsis; Etiology secondary to gangrenous and perforated appendix causing intra- abdominal/pelvic abscess. Patient is status post exploratory laparotomy with appendectomy and evacuation of pelvic abscess. ID following. Continue antibiotics per ID Perforated appendix s/p exploratory lap; Cont. TPN and IV abx dislodged drain, s/p taken to OR , exploratory lap, irrigation of intraabd cavity and placement of sump drain on 04/25 OOB as tiffanie Chronic hep C. Untreated. Outpatient follow-up. Accel Hypertension. Increase Cozaar to 100mg. Cont. Hydralazine prn. COPD. Compensated. Neurofibromatosis Tobacco abuse. Patient counseled on smoking cessation. History Interval history: Patient was seen and evaluated this morning, patient was asking for her anxiety medication. No other complaints. Hospitalist Physical - Physical exam Narrative exam: Not in cardiopulmonary distress. The patient appeared well nourished and normally developed. Vital signs as documented. Head exam is unremarkable. No scleral icterus . Neck is without jugular venous distension, thyromegaly, or carotid bruits. Lungs are clear to auscultation. Cardiac exam reveals regular rate and Rhythm. First and second heart sounds normal. No murmurs, rubs or gallops. Abdominal exam reveals normal bowel sounds, no masses, no organomegaly and no aortic enlargement. Extremities are nonedematous and both femoral and pedal pulses are normal. ROVING SIZER: Alert and oriented 3. No focal weakness. - Constitutional Vitals: Temp Pulse Resp BP Pulse Ox 98.1 F 104 H 20 178/90 98 05/04/18 11:05 05/04/18 11:05 05/04/18 11:05 05/04/18 11:05 05/04/18 11:05 General appearance: Present: no acute distress Results - Labs CBC & Chem 7: 05/04/18 07:03 05/05/18 Unknown Labs: Laboratory Last Values WBC 5.8 K/mm3 (4.5-11.0) 05/04/18 07:03 RBC 3.52 M/mm3 (3.65-5.03) L 05/04/18 07:03 Hgb 10.2 gm/dl (10.1-14.3) 05/04/18 07:03 Hct 29.8 % (30.3-42.9) L 05/04/18 07:03 MCV 85 fl (79-97) 05/04/18 07:03 MCH 29 pg (28-32) 05/04/18 07:03 MCHC 34 % (30-34) 05/04/18 07:03 RDW 16.2 % (13.2-15.2) H 05/04/18 07:03 Plt Count 162 K/mm3 (140-440) 05/04/18 07:03 Lymph % (Auto) 22.1 % (13.4-35.0) 05/04/18 07:03 [place] % (Auto) 8.6 % (0.0-7.3) H 05/04/18 07:03 Eos % (Auto) 1.7 % (0.0-4.3) 05/04/18 07:03 Baso % (Auto) 1.0 % (0.0-1.8) 05/04/18 07:03 Lymph # 1.3 K/mm3 (1.2-5.4) 05/04/18 07:03 [place] # 0.5 K/mm3 (0.0-0.8) 05/04/18 07:03 Eos # 0.1 K/mm3 (0.0-0.4) 05/04/18 07:03 Baso # 0.1 K/mm3 (0.0-0.1) 05/04/18 07:03 Add Manual Diff Complete 04/30/18 05:41 Total Counted 100 04/30/18 05:41 Seg Neutrophils % 66.6 % (40.0-70.0) 05/04/18 07:03 Seg Neuts % (Manual) 88.0 % (40.0-70.0) H 04/30/18 05:41 Band Neutrophils % 1.0 % 04/30/18 05:41 Lymphocytes % (Manual) 8.0 % (13.4-35.0) L 04/30/18 05:41 Reactive Lymphs % (Man) 0 % 04/30/18 05:41 Monocytes % (Manual) 3.0 % (0.0-7.3) 04/30/18 05:41 Eosinophils % (Manual) 0 % (0.0-4.3) 04/30/18 05:41 Basophils % (Manual) 0 % (0.0-1.8) 04/30/18 05:41 Metamyelocytes % 0 % 04/30/18 05:41 Myelocytes % 0 % 04/30/18 05:41 Promyelocytes % 0 % 04/30/18 05:41 Blast Cells % 0 % 04/30/18 05:41 Nucleated RBC % Not Reportable 04/30/18 05:41 Seg Neutrophils # 3.9 K/mm3 (1.8-7.7) 05/04/18 07:03 Seg Neutrophils # Man 7.7 K/mm3 (1.8-7.7) 04/30/18 05:41 Band Neutrophils # 0.1 K/mm3 04/30/18 05:41 Lymphocytes # (Manual) 0.7 K/mm3 (1.2-5.4) L 04/30/18 05:41 Abs React Lymphs (Man) 0.0 K/mm3 04/30/18 05:41 Monocytes # (Manual) 0.3 K/mm3 (0.0-0.8) 04/30/18 05:41 Eosinophils # (Manual) 0.0 K/mm3 (0.0-0.4) 04/30/18 05:41 Basophils # (Manual) 0.0 K/mm3 (0.0-0.1) 04/30/18 05:41 Metamyelocytes # 0.0 K/mm3 04/30/18 05:41 Myelocytes # 0.0 K/mm3 04/30/18 05:41 Promyelocytes # 0.0 K/mm3 04/30/18 05:41 Blast Cells # 0.0 K/mm3 04/30/18 05:41 WBC Morphology Not Reportable 04/30/18 05:41 Hypersegmented Neuts Not Reportable 04/30/18 05:41 Hyposegmented Neuts Not Reportable 04/30/18 05:41 Hypogranular Neuts Not Reportable 04/30/18 05:41 Smudge Cells Not Reportable 04/30/18 05:41 Toxic Granulation Not Reportable 04/30/18 05:41 Toxic Vacuolation Not Reportable 04/30/18 05:41 Dohle Bodies Not Reportable 04/30/18 05:41 [place]-Huet Anomaly Not Reportable 04/30/18 05:41 Nicole Rods Not Reportable 04/30/18 05:41 Platelet Estimate Appears normal 04/30/18 05:41 Clumped Platelets Not Reportable 04/30/18 05:41 Plt Clumps, EDTA Not Reportable 04/30/18 05:41 Large Platelets Not Reportable 04/30/18 05:41 Giant Platelets Not Reportable 04/30/18 05:41 Platelet Satelliting Not Reportable 04/30/18 05:41 Plt Morphology Comment Not Reportable 04/30/18 05:41 RBC Morphology Not Reportable 04/30/18 05:41 Dimorphic RBCs Not Reportable 04/30/18 05:41 Polychromasia Not Reportable 04/30/18 05:41 Hypochromasia 1+ 04/30/18 05:41 Poikilocytosis Not Reportable 04/30/18 05:41 Anisocytosis 1+ 04/30/18 05:41 Microcytosis Not Reportable 04/30/18 05:41 Macrocytosis Not Reportable 04/30/18 05:41 Spherocytes Not Reportable 04/30/18 05:41 Pappenheimer Bodies Not Reportable 04/30/18 05:41 Sickle Cells Not Reportable 04/30/18 05:41 Target Cells Not Reportable 04/30/18 05:41 Tear Drop Cells Not Reportable 04/30/18 05:41 Ovalocytes Few 04/30/18 05:41 Stomatocytes Few 04/29/18 05:18 Helmet Cells Not Reportable 04/30/18 05:41 [place] Bodies Not Reportable 04/30/18 05:41 [place] Rings Not Reportable 04/30/18 05:41 [place] Cells Not Reportable 04/30/18 05:41 Bite Cells Not Reportable 04/30/18 05:41 Crenated Cell Not Reportable 04/30/18 05:41 Elliptocytes Not Reportable 04/30/18 05:41 Acanthocytes (Spur) Not Reportable 04/30/18 05:41 Rouleaux Not Reportable 04/30/18 05:41 Hemoglobin C Crystals Not Reportable 04/30/18 05:41 Schistocytes Not Reportable 04/30/18 05:41 Malaria parasites Not Reportable 04/30/18 05:41 Hung Bodies Not Reportable 04/30/18 05:41 Hem Pathologist Commnt No 04/30/18 05:41 PT 15.3 Sec. (12.2-14.9) H 04/22/18 05:19 INR 1.17 (0.87-1.13) H 04/22/18 05:19 APTT 29.4 Sec. (24.2-36.6) 04/19/18 05:19 POC ABG pH 7.367 (7.35-7.45) 04/19/18 00:19 POC ABG pCO2 36.8 (35-45) 04/19/18 00:19 POC ABG pO2 84 (80-105) 04/19/18 00:19 POC ABG HCO3 21.1 04/19/18 00:19 POC ABG Total CO2 22 04/19/18 00:19 POC ABG O2 Sat 96 04/19/18 00:19 POC ABG Base Excess -4 04/19/18 00:19 VBG pH 7.439 (7.320-7.420) H 04/18/18 14:30 FiO2 32 % 04/19/18 00:19 Sodium 135 mmol/L (137-145) L 05/04/18 08:02 Potassium 4.0 mmol/L (3.6-5.0) 05/04/18 08:02 Chloride 98.5 mmol/L (98-107) 05/04/18 08:02 Carbon Dioxide 26 mmol/L (22-30) 05/04/18 08:02 Anion Gap 15 mmol/L 05/04/18 08:02 BUN 11 mg/dL (7-17) 05/04/18 08:02 Creatinine 0.2 mg/dL (0.7-1.2) L 05/04/18 08:02 Estimated GFR > 60 ml/min 05/04/18 08:02 BUN/Creatinine Ratio 55 % 05/04/18 08:02 Glucose 160 mg/dL (65-100) H 05/04/18 08:02 POC Glucose 81 (70-105) 05/04/18 16:15 Lactic Acid 0.90 mmol/L (0.7-2.0) 04/18/18 18:41 Calcium 7.7 mg/dL (8.4-10.2) L 05/04/18 08:02 Phosphorus 3.30 mg/dL (2.5-4.5) 05/03/18 12:15 Magnesium 2.00 mg/dL (1.7-2.3) 05/03/18 12:15 Total Bilirubin 0.40 mg/dL (0.1-1.2) 04/28/18 06:00 AST 26 units/L (5-40) 04/28/18 06:00 ALT 20 units/L (7-56) 04/28/18 06:00 Alkaline Phosphatase 73 units/L (35-129) 04/28/18 06:00 Total Protein 4.3 g/dL (6.3-8.2) L 04/28/18 06:00 Albumin 2.1 g/dL (3.9-5) L 04/28/18 06:00 Albumin/Globulin Ratio 1.0 % 04/28/18 06:00 Urine Color Yellow (Yellow) 04/20/18 13:35 Urine Turbidity Clear (Clear) 04/20/18 13:35 Urine pH 5.0 (5.0-7.0) 04/20/18 13:35 Ur Specific [place] 1.011 (1.003-1.030) 04/20/18 13:35 Urine Protein <15 mg/dl mg/dL (Negative) 04/20/18 13:35 Urine Glucose (UA) Neg mg/dL (Negative) 04/20/18 13:35 Urine Ketones 20 mg/dL (Negative) 04/20/18 13:35 Urine Blood Sm (Negative) 04/20/18 13:35 Urine Nitrite Neg (Negative) 04/20/18 13:35 Urine Bilirubin Neg (Negative) 04/20/18 13:35 Urine Urobilinogen 2.0 mg/dL (<2.0) 04/20/18 13:35 Ur Leukocyte Esterase Tr (Negative) 04/20/18 13:35 Urine WBC (Auto) 2.0 /HPF (0.0-6.0) 04/20/18 13:35 Urine RBC (Auto) 1.0 /HPF (0.0-6.0) 04/20/18 13:35 U Epithel Cells (Auto) 2.0 /HPF (0-13.0) 04/18/18 16:45 Urine Bacteria (Auto) 2+ /HPF (Negative) 04/18/18 16:45 Urine Mucus Few /HPF 04/20/18 13:35 Blood Type O POSITIVE 04/19/18 13:05 Antibody Screen Negative 04/19/18 13:05 Crossmatch See Detail 04/19/18 13:05 Nutrition/Malnutrition Assess - Dietary Evaluation Nutrition/Malnutrition Findings: Nutrition Notes Start: 04/24/18 09:13 Freq: Status: Active Protocol: Document 05/04/18 09:18 [facility] (Rec: 05/04/18 09:21 [facility] [id number]) Nutrition Notes Initial or Follow up Reassessment Other Pertinent Diagnosis Perforated appendix s/p exp lap Current Diet TPN at 75ml/hr Labs/Tests Na 135 BG 160 Pertinent Medications Reviewed Height 5 ft 1 in Weight 46.8 kg [place] Body Weight (kg) 47.72 BMI 19.5 Subjective/Other Information Day 8 TPN. Percent of energy/protein needs met: 100% energy and pro Burn Absent Trauma Absent #2 Nutrition Diagnosis Increased nutrient needs ( specify in comment below) Diagnosis Progress(for reassessment Continues documentation) #1 Nutrition Diagnosis Inadequate oral intake Diagnosis Progress(for reassessment Continues documentation) Is patient on ventilator? No Is Patient Ambulatory and/or Out of Bed Yes REE-([place]-St. Jeor-ambulatory/OOB) [ [id number] [id number]] Calculation Used for Recommendations [place]-St Jeor Additional Notes Pro needs 1.25-1.5g/k-70g /day Fluid needs 1ml/kcal Nutrition Intervention Nutrition Support: Continue TPN at 75ml/hr: Lipids, MVI, 11.1% dextrose, 5 .3% amino acids. Osmolality: 1521. Kcal 1,560 Protein (gm) 95 Carbohydrates (gm) 200 Fat (gm) 50 Fluid (mL) 2,050 Fiber (gm) 0 Goal #1 CPN to meet 90-100% energy and pro needs Goal #2 Wt maintenance Follow-Up By: 05/05/18 Additional Comments Labs in am: CMP, Mg, Phos
[2018-05-04] MEDS ORDERED: INTRALIPID 20% 250 ML IV SCH (20:00)
[2018-05-04] MEDS ORDERED: TPN ADULT 1,800 ML IV SCH (20:00)
[2018-05-04] MEDS ORDERED: NORVASC PO ONE (22:30)
[2018-05-05] MEDS: XANAX PO PRN ×3 (00:40→17:52)
[2018-05-05] MEDS: DILAUDID IV PRN ×7 (03:17→22:44)
[2018-05-05 07:04] LABS: Alanine Aminotransferase 35 units/L (7-56); Albumin 2.7 g/dL (3.9-5); BUN/Creatinine Ratio 60; Blood Urea Nitrogen 12 mg/dL (7-17); Hemolysis Index 4
[2018-05-05] MEDS: PROVENTIL IH SCH ×3 (08:24→20:10)
[2018-05-05] MEDS: COZAAR PO SCH (09:35)
[2018-05-05] MEDS: PEPCID IV SCH ×2 (09:35→21:16)
[2018-05-05] MEDS: NEURONTIN PO SCH ×3 (09:36→19:48)
--- NOTE | 2018-05-05 09:54 | Progress Note ---
Assessment and Plan Sepsis. Etiology secondary to gangrenous and perforated appendix causing intra- abdominal/pelvic abscess( resolved). status post exploratory laparotomy with appendectomy and evacuation of pelvic abscess. Intrabdominal sepsis/peritonitis Ruptured appendix with abdominal abscess Tobacco abuse disorder COPD, probable Neurofibromatosis - continue supplemental oxygen to keep O2 sats 88-90% - continue bronchodilators with pulmonary hygiene per RT - abdominal drain to suction (adjust per surgeon) - complete antibiotics course and adjust per ID - VTE prophylaxis - PT/OT/Mobility, OOB to chair daily, increase activity - continue incentive spirometry - continue nicotine withdrawal precautions - Smoking cessation counselling was done at the bedside(ongoing) - Analgesia, pain management Subjective Date of service: 05/05/18 Principal diagnosis: Sepsis; Ex-lap appendectomy and evacuation of pelvic abscess; Peritonitis Interval history: Patient is seen today for: Sepsis; status post exploratory laparotomy with appendectomy and evacuation of pelvic abscess; Intrabdominal sepsis/peritonitis; Ruptured appendix with abdominal abscess Seen and examined at bedside; 24hour events reviewed; nursing and respiratory care staff consulted; no adverse overnight events reported to me; resting peacefully in bed; feels better; denies acute chest pains or palpitations; tolerating popsicles; no N/V/F/C Objective Vital Signs - 12hr 05/05/18 05/05/18 05/05/18 00:30 04:13 07:27 Temperature 98.5 F 98.2 F 98.6 F Pulse Rate 104 H 105 H 115 H Pulse Rate [ Bilateral] Respiratory 18 17 18 Rate Respiratory Rate [Bilateral ] Blood Pressure 168/82 166/85 Blood Pressure 141/78 [Right] O2 Sat by Pulse 99 98 95 Oximetry 05/05/18 05/05/18 05/05/18 08:24 08:38 09:35 Temperature Pulse Rate 115 H Pulse Rate [ 116 H 110 H Bilateral] Respiratory 18 Rate Respiratory 17 17 Rate [Bilateral ] Blood Pressure 166/85 Blood Pressure [Right] O2 Sat by Pulse 96 Oximetry Constitutional: no acute distress, alert, other (chronically ill looking this middle aged CF, normocephalic, neurofibromatosis) Eyes: non-icteric ENT: oropharynx moist, other (Mallampati 2) Neck: supple, no lymphadenopathy, no JVD Effort: normal Ascultation: Bilateral: diminished breath sounds, rhonchi (scant in bases) Percussion: Bilateral: not dull Cardiovascular: regular rate and rhythm Gastrointestinal: normoactive bowel sounds, soft, tender (bhargav-op site), non- distended, other (Drain in place with non-bloody effluent) Integumentary: other ( neurofibromatous nodules over body) Extremities: no cyanosis, no edema, pink and warm, pulses normal Neurologic: normal mental status, non-focal exam, pupils equal and round, motor strength normal and Psychiatric: mood appropriate, affect normal CBC and BMP: 05/04/18 07:03 05/06/18 05:35 ABG, PT/INR, D-dimer: ABG POC ABG pH 7.367 (7.35-7.45) 04/19/18 00:19 POC ABG pCO2 36.8 (35-45) 04/19/18 00:19 POC ABG pO2 84 (80-105) 04/19/18 00:19 POC ABG HCO3 21.1 04/19/18 00:19 POC ABG Total CO2 22 04/19/18 00:19 POC ABG O2 Sat 96 04/19/18 00:19 PT/INR, D-dimer PT 15.3 Sec. (12.2-14.9) H 04/22/18 05:19 INR 1.17 (0.87-1.13) H 04/22/18 05:19 Abnormal lab findings: Abnormal Labs 04/18/18 04/18/18 04/18/18 14:30 14:30 14:30 WBC 18.6 H RBC Hgb Hct RDW Lymph % (Auto) [place] % (Auto) Lymph # Seg Neutrophils % Seg Neuts % (Manual) 79.0 H Lymphocytes % (Manual) 4.0 L Seg Neutrophils # Man 14.7 H Lymphocytes # (Manual) 0.7 L PT 16.3 H INR 1.27 H VBG pH Sodium 121 L Potassium 3.0 L Chloride 78.0 L Carbon Dioxide BUN Creatinine 0.5 L Glucose 110 H POC Glucose Lactic Acid Calcium Phosphorus Magnesium Total Bilirubin 1.30 H AST 42 H Total Protein Albumin 3.1 L Crossmatch 04/18/18 04/18/18 04/18/18 14:30 14:30 23:59 WBC RBC Hgb Hct RDW 15.8 H Lymph % (Auto) [place] % (Auto) Lymph # Seg Neutrophils % Seg Neuts % (Manual) 78.0 H Lymphocytes % (Manual) 6.0 L Seg Neutrophils # Man Lymphocytes # (Manual) 0.5 L PT INR VBG pH 7.439 H Sodium Potassium Chloride Carbon Dioxide BUN Creatinine Glucose POC Glucose Lactic Acid 3.60 H* Calcium Phosphorus Magnesium Total Bilirubin AST Total Protein Albumin Crossmatch 04/18/18 04/19/18 04/19/18 23:59 05:19 05:19 WBC 15.0 H RBC Hgb Hct RDW 15.3 H Lymph % (Auto) [place] % (Auto) Lymph # Seg Neutrophils % Seg Neuts % (Manual) Lymphocytes % (Manual) 5.0 L Seg Neutrophils # Man 8.3 H Lymphocytes # (Manual) 0.8 L PT INR VBG pH Sodium 130 L D 133 L Potassium 3.5 L 3.3 L Chloride Carbon Dioxide 20 L D BUN Creatinine 0.5 L 0.6 L Glucose 140 H 115 H POC Glucose Lactic Acid Calcium 7.5 L 7.4 L Phosphorus Magnesium Total Bilirubin AST Total Protein 4.4 L D 4.1 L Albumin 2.0 L 1.9 L Crossmatch 04/19/18 04/19/18 04/20/18 05:19 13:05 05:18 WBC RBC Hgb Hct RDW Lymph % (Auto) [place] % (Auto) Lymph # Seg Neutrophils % Seg Neuts % (Manual) Lymphocytes % (Manual) Seg Neutrophils # Man Lymphocytes # (Manual) PT 19.4 H 17.4 H INR 1.59 H 1.38 H VBG pH Sodium Potassium Chloride Carbon Dioxide BUN Creatinine Glucose POC Glucose Lactic Acid Calcium Phosphorus Magnesium Total Bilirubin AST Total Protein Albumin Crossmatch See Detail 04/20/18 04/20/18 04/21/18 13:47 13:47 04:52 WBC RBC 3.29 L 3.10 L Hgb 9.6 L 8.8 L Hct 28.1 L D 26.6 L RDW 15.3 H 15.4 H Lymph % (Auto) 5.6 L [place] % (Auto) Lymph # 0.4 L Seg Neutrophils % 87.3 H Seg Neuts % (Manual) Lymphocytes % (Manual) Seg Neutrophils # Man Lymphocytes # (Manual) PT INR VBG pH Sodium Potassium Chloride Carbon Dioxide BUN Creatinine 0.3 L Glucose 102 H POC Glucose Lactic Acid Calcium 8.0 L Phosphorus Magnesium Total Bilirubin AST Total Protein Albumin Crossmatch 04/21/18 04/22/18 04/22/18 04:52 05:19 05:19 WBC RBC 3.64 L Hgb Hct RDW Lymph % (Auto) 8.5 L [place] % (Auto) 9.9 H Lymph # 0.6 L Seg Neutrophils % 81.0 H Seg Neuts % (Manual) Lymphocytes % (Manual) Seg Neutrophils # Man Lymphocytes # (Manual) PT 15.3 H INR 1.17 H VBG pH Sodium Potassium 3.2 L Chloride Carbon Dioxide BUN Creatinine 0.3 L Glucose POC Glucose Lactic Acid Calcium 7.6 L Phosphorus Magnesium Total Bilirubin AST Total Protein Albumin Crossmatch 04/22/18 04/24/18 04/24/18 05:19 07:19 07:19 WBC RBC Hgb Hct RDW Lymph % (Auto) [place] % (Auto) Lymph # Seg Neutrophils % Seg Neuts % (Manual) Lymphocytes % (Manual) Seg Neutrophils # Man Lymphocytes # (Manual) PT INR VBG pH Sodium Potassium 3.4 L 2.9 L* Chloride Carbon Dioxide BUN Creatinine 0.3 L 0.3 L Glucose 103 H POC Glucose Lactic Acid Calcium 7.7 L 7.5 L Phosphorus Magnesium 1.60 L Total Bilirubin AST Total Protein 4.3 L Albumin 2.2 L Crossmatch 04/24/18 04/25/18 04/25/18 07:23 06:28 06:28 WBC RBC Hgb Hct RDW 15.3 H 15.9 H Lymph % (Auto) 10.1 L [place] % (Auto) Lymph # 0.8 L Seg Neutrophils % 80.6 H Seg Neuts % (Manual) Lymphocytes % (Manual) 9.0 L Seg Neutrophils # Man Lymphocytes # (Manual) 0.7 L PT INR VBG pH Sodium Potassium 3.0 L Chloride Carbon Dioxide BUN 5 L Creatinine 0.2 L Glucose 108 H POC Glucose Lactic Acid Calcium 7.4 L Phosphorus Magnesium Total Bilirubin AST Total Protein 4.6 L Albumin 2.5 L Crossmatch 04/25/18 04/26/18 04/26/18 06:28 05:45 05:45 WBC 11.9 H RBC Hgb Hct RDW 16.2 H Lymph % (Auto) [place] % (Auto) Lymph # Seg Neutrophils % Seg Neuts % (Manual) Lymphocytes % (Manual) Seg Neutrophils # Man Lymphocytes # (Manual) PT INR VBG pH Sodium Potassium Chloride Carbon Dioxide BUN 5 L Creatinine 0.2 L Glucose 119 H POC Glucose Lactic Acid Calcium 7.7 L Phosphorus 2.00 L 2.20 L Magnesium Total Bilirubin AST Total Protein Albumin Crossmatch 04/27/18 04/28/18 04/28/18 05:33 06:00 06:00 WBC 11.2 H RBC Hgb Hct RDW 16.0 H Lymph % (Auto) [place] % (Auto) Lymph # Seg Neutrophils % Seg Neuts % (Manual) 92.0 H Lymphocytes % (Manual) 5.0 L Seg Neutrophils # Man 10.3 H Lymphocytes # (Manual) 0.6 L PT INR VBG pH Sodium Potassium 3.4 L 3.1 L Chloride Carbon Dioxide BUN 6 L 4 L Creatinine 0.2 L 0.2 L Glucose 119 H POC Glucose Lactic Acid Calcium 7.5 L 7.1 L Phosphorus 2.00 L 2.10 L Magnesium 1.50 L Total Bilirubin AST Total Protein 4.3 L Albumin 2.1 L Crossmatch 04/29/18 04/29/18 04/29/18 05:18 05:18 17:49 WBC 12.0 H RBC Hgb Hct RDW 16.0 H Lymph % (Auto) [place] % (Auto) Lymph # Seg Neutrophils % Seg Neuts % (Manual) 87.0 H Lymphocytes % (Manual) 10.0 L Seg Neutrophils # Man 10.4 H Lymphocytes # (Manual) PT INR VBG pH Sodium 135 L Potassium Chloride Carbon Dioxide BUN Creatinine 0.2 L Glucose 120 H POC Glucose 108 H Lactic Acid Calcium 7.5 L Phosphorus Magnesium Total Bilirubin AST Total Protein Albumin Crossmatch 04/30/18 04/30/18 04/30/18 00:03 05:18 05:41 WBC RBC Hgb Hct RDW Lymph % (Auto) [place] % (Auto) Lymph # Seg Neutrophils % Seg Neuts % (Manual) Lymphocytes % (Manual) Seg Neutrophils # Man Lymphocytes # (Manual) PT INR VBG pH Sodium 133 L Potassium Chloride Carbon Dioxide BUN Creatinine 0.2 L Glucose 119 H POC Glucose 112 H 110 H Lactic Acid Calcium 7.5 L Phosphorus Magnesium Total Bilirubin AST Total Protein Albumin Crossmatch 04/30/18 05/01/18 05/01/18 05:41 00:39 04:45 WBC RBC 3.60 L Hgb Hct RDW 16.0 H Lymph % (Auto) [place] % (Auto) Lymph # Seg Neutrophils % Seg Neuts % (Manual) 88.0 H Lymphocytes % (Manual) 8.0 L Seg Neutrophils # Man Lymphocytes # (Manual) 0.7 L PT INR VBG pH Sodium 132 L Potassium Chloride Carbon Dioxide BUN Creatinine 0.2 L Glucose 101 H POC Glucose 119 H Lactic Acid Calcium 7.6 L Phosphorus Magnesium Total Bilirubin AST Total Protein Albumin Crossmatch 05/01/18 05/01/18 05/01/18 06:30 16:09 23:42 WBC RBC Hgb Hct RDW Lymph % (Auto) [place] % (Auto) Lymph # Seg Neutrophils % Seg Neuts % (Manual) Lymphocytes % (Manual) Seg Neutrophils # Man Lymphocytes # (Manual) PT INR VBG pH Sodium Potassium Chloride Carbon Dioxide BUN Creatinine Glucose POC Glucose 126 H 160 H 113 H Lactic Acid Calcium Phosphorus Magnesium Total Bilirubin AST Total Protein Albumin Crossmatch 05/02/18 05/02/18 05/02/18 04:55 06:41 11:53 WBC RBC Hgb Hct RDW Lymph % (Auto) [place] % (Auto) Lymph # Seg Neutrophils % Seg Neuts % (Manual) Lymphocytes % (Manual) Seg Neutrophils # Man Lymphocytes # (Manual) PT INR VBG pH Sodium 134 L Potassium Chloride Carbon Dioxide BUN Creatinine 0.2 L Glucose 113 H POC Glucose 146 H 113 H Lactic Acid Calcium 7.4 L Phosphorus Magnesium Total Bilirubin AST Total Protein Albumin Crossmatch 05/02/18 05/02/18 05/03/18 17:33 23:37 08:46 WBC RBC 3.36 L Hgb 9.7 L Hct 28.7 L RDW 16.3 H Lymph % (Auto) [place] % (Auto) 10.0 H Lymph # Seg Neutrophils % Seg Neuts % (Manual) Lymphocytes % (Manual) Seg Neutrophils # Man Lymphocytes # (Manual) PT INR VBG pH Sodium Potassium Chloride Carbon Dioxide BUN Creatinine Glucose POC Glucose 106 H 123 H Lactic Acid Calcium Phosphorus Magnesium Total Bilirubin AST Total Protein Albumin Crossmatch 05/03/18 05/03/18 05/04/18 11:54 12:15 06:59 WBC RBC Hgb Hct RDW Lymph % (Auto) [place] % (Auto) Lymph # Seg Neutrophils % Seg Neuts % (Manual) Lymphocytes % (Manual) Seg Neutrophils # Man Lymphocytes # (Manual) PT INR VBG pH Sodium 136 L Potassium Chloride Carbon Dioxide BUN Creatinine 0.2 L Glucose 131 H POC Glucose 109 H 161 H Lactic Acid Calcium 7.6 L Phosphorus Magnesium Total Bilirubin AST Total Protein Albumin Crossmatch 05/04/18 05/04/18 05/04/18 07:03 08:02 11:10 WBC RBC 3.52 L Hgb Hct 29.8 L RDW 16.2 H Lymph % (Auto) [place] % (Auto) 8.6 H Lymph # Seg Neutrophils % Seg Neuts % (Manual) Lymphocytes % (Manual) Seg Neutrophils # Man Lymphocytes # (Manual) PT INR VBG pH Sodium 135 L Potassium Chloride Carbon Dioxide BUN Creatinine 0.2 L Glucose 160 H POC Glucose 106 H Lactic Acid Calcium 7.7 L Phosphorus Magnesium Total Bilirubin AST Total Protein Albumin Crossmatch 05/04/18 05/05/18 23:38 Unknown WBC RBC Hgb Hct RDW Lymph % (Auto) [place] % (Auto) Lymph # Seg Neutrophils % Seg Neuts % (Manual) Lymphocytes % (Manual) Seg Neutrophils # Man Lymphocytes # (Manual) PT INR VBG pH Sodium 135 L Potassium Chloride 97.9 L Carbon Dioxide BUN Creatinine 0.2 L Glucose POC Glucose 121 H Lactic Acid Calcium 8.0 L Phosphorus Magnesium Total Bilirubin AST 46 H Total Protein 5.5 L Albumin 2.7 L Crossmatch Allied health notes reviewed: nursing
--- NOTE | 2018-05-05 13:13 | Progress Note ---
Assessment and Plan Pt feeling well. no compl. sump - 300 cc/24 hrs Abd soft, non tender surgically stable continue present care Selected Entries 05/05/18 05/05/18 09:35 11:47 Temperature 98.0 F Pulse Rate 115 H Respiratory 18 Rate Blood Pressure 143/91 Objective Vital Signs - 12hr 05/05/18 05/05/18 05/05/18 04:13 07:27 08:24 Temperature 98.2 F 98.6 F Pulse Rate 105 H 115 H Pulse Rate [ 116 H Bilateral] Respiratory 17 18 Rate Respiratory 17 Rate [Bilateral ] Blood Pressure 166/85 Blood Pressure 141/78 [Right] O2 Sat by Pulse 98 95 Oximetry 05/05/18 05/05/18 05/05/18 08:38 09:35 10:05 Temperature Pulse Rate 115 H Pulse Rate [ 110 H Bilateral] Respiratory 18 18 Rate Respiratory 17 Rate [Bilateral ] Blood Pressure 166/85 Blood Pressure [Right] O2 Sat by Pulse 96 Oximetry 05/05/18 11:47 Temperature 98.0 F Pulse Rate Pulse Rate [ Bilateral] Respiratory 18 Rate Respiratory Rate [Bilateral ] Blood Pressure 143/91 Blood Pressure [Right] O2 Sat by Pulse Oximetry - Labs 05/04/18 07:03 05/05/18 Unknown Diabetes panel 05/05/18 Range/Units Unknown Sodium 135 L (137-145) mmol/L Potassium 3.8 (3.6-5.0) mmol/L Chloride 97.9 L (98-107) mmol/L Carbon Dioxide 28 (22-30) mmol/L BUN 12 (7-17) mg/dL Creatinine 0.2 L (0.7-1.2) mg/dL Glucose 81 (65-100) mg/dL Calcium 8.0 L (8.4-10.2) mg/dL AST 46 H (5-40) units/L ALT 35 (7-56) units/L Alkaline Phosphatase 110 (35-129) units/L Total Protein 5.5 L (6.3-8.2) g/dL Albumin 2.7 L (3.9-5) g/dL Calcium panel 05/05/18 Range/Units Unknown Calcium 8.0 L (8.4-10.2) mg/dL Phosphorus 3.50 (2.5-4.5) mg/dL Albumin 2.7 L (3.9-5) g/dL Pituitary panel 05/05/18 Range/Units Unknown Sodium 135 L (137-145) mmol/L Potassium 3.8 (3.6-5.0) mmol/L Chloride 97.9 L (98-107) mmol/L Carbon Dioxide 28 (22-30) mmol/L BUN 12 (7-17) mg/dL Creatinine 0.2 L (0.7-1.2) mg/dL Glucose 81 (65-100) mg/dL Calcium 8.0 L (8.4-10.2) mg/dL Adrenal panel 05/05/18 Range/Units Unknown Sodium 135 L (137-145) mmol/L Potassium 3.8 (3.6-5.0) mmol/L Chloride 97.9 L (98-107) mmol/L Carbon Dioxide 28 (22-30) mmol/L BUN 12 (7-17) mg/dL Creatinine 0.2 L (0.7-1.2) mg/dL Glucose 81 (65-100) mg/dL Calcium 8.0 L (8.4-10.2) mg/dL Total Bilirubin 0.30 (0.1-1.2) mg/dL AST 46 H (5-40) units/L ALT 35 (7-56) units/L Alkaline Phosphatase 110 (35-129) units/L Total Protein 5.5 L (6.3-8.2) g/dL Albumin 2.7 L (3.9-5) g/dL
--- NOTE | 2018-05-05 18:23 | Progress Note ---
Assessment and Plan Assessment and plan: The patient is a 57-year-old female with hypertension, neurofibromatosis, hepatitis C, COPD, nicotine dependence presented to the emergency room on 04/18/18 with complaints of abdominal pain going on for [address] scan obtained in the emergency room revealed a ruptured appendix with associated intra-abdominal abscess. General surgery was consulted and the patient underwent an emergent exploratory laparotomy with evacuation of pelvic abscess. She was noted to have a gangrenous, perforated appendix eroding including into the small bowel. As per the op note, the abscess could not be drained as the entire abscess and inflammatory process had trapped the small bowel, which was mobilized and she underwent an ileocolic anastomosis. The patient went back to the OR on 04/25/18 for drain dislodgment. Sepsis; Etiology secondary to gangrenous and perforated appendix causing intra- abdominal/pelvic abscess. Patient is status post exploratory laparotomy with appendectomy and evacuation of pelvic abscess. ID following. Continue antibiotics per ID Perforated appendix s/p exploratory lap; Cont. TPN and IV abx dislodged drain, s/p taken to OR , exploratory lap, irrigation of intraabd cavity and placement of sump drain on 04/25 OOB as tiffanie Chronic hep C. Untreated. Outpatient follow-up. Accel Hypertension. Increase Cozaar to 100mg. Cont. Hydralazine prn. COPD. Compensated. Neurofibromatosis Tobacco abuse. Patient counseled on smoking cessation. History Interval history: Patient was seen and evaluated this morning. No nursing issues overnight, no complaints. Hospitalist Physical - Physical exam Narrative exam: Not in cardiopulmonary distress. The patient appeared well nourished and normally developed. Vital signs as documented. Head exam is unremarkable. No scleral icterus . Neck is without jugular venous distension, thyromegaly, or carotid bruits. Lungs are clear to auscultation. Cardiac exam reveals regular rate and Rhythm. Abdominal exam reveals draining tube in the right lower quadrant. Extremities are nonedematous and both femoral and pedal pulses are normal. PEDIATRIC RADIOLOGIST: Alert and oriented 3. No focal weakness. - Constitutional Vitals: Temp Pulse Resp BP Pulse Ox 98.5 F 114 H 18 159/79 93 05/05/18 16:50 05/05/18 16:50 05/05/18 17:09 05/05/18 16:50 05/05/18 16:50 General appearance: Present: no acute distress Results - Labs CBC & Chem 7: 05/04/18 07:03 05/05/18 Unknown Labs: Laboratory Last Values WBC 5.8 K/mm3 (4.5-11.0) 05/04/18 07:03 RBC 3.52 M/mm3 (3.65-5.03) L 05/04/18 07:03 Hgb 10.2 gm/dl (10.1-14.3) 05/04/18 07:03 Hct 29.8 % (30.3-42.9) L 05/04/18 07:03 MCV 85 fl (79-97) 05/04/18 07:03 MCH 29 pg (28-32) 05/04/18 07:03 MCHC 34 % (30-34) 05/04/18 07:03 RDW 16.2 % (13.2-15.2) H 05/04/18 07:03 Plt Count 162 K/mm3 (140-440) 05/04/18 07:03 Lymph % (Auto) 22.1 % (13.4-35.0) 05/04/18 07:03 [place] % (Auto) 8.6 % (0.0-7.3) H 05/04/18 07:03 Eos % (Auto) 1.7 % (0.0-4.3) 05/04/18 07:03 Baso % (Auto) 1.0 % (0.0-1.8) 05/04/18 07:03 Lymph # 1.3 K/mm3 (1.2-5.4) 05/04/18 07:03 [place] # 0.5 K/mm3 (0.0-0.8) 05/04/18 07:03 Eos # 0.1 K/mm3 (0.0-0.4) 05/04/18 07:03 Baso # 0.1 K/mm3 (0.0-0.1) 05/04/18 07:03 Add Manual Diff Complete 04/30/18 05:41 Total Counted 100 04/30/18 05:41 Seg Neutrophils % 66.6 % (40.0-70.0) 05/04/18 07:03 Seg Neuts % (Manual) 88.0 % (40.0-70.0) H 04/30/18 05:41 Band Neutrophils % 1.0 % 04/30/18 05:41 Lymphocytes % (Manual) 8.0 % (13.4-35.0) L 04/30/18 05:41 Reactive Lymphs % (Man) 0 % 04/30/18 05:41 Monocytes % (Manual) 3.0 % (0.0-7.3) 04/30/18 05:41 Eosinophils % (Manual) 0 % (0.0-4.3) 04/30/18 05:41 Basophils % (Manual) 0 % (0.0-1.8) 04/30/18 05:41 Metamyelocytes % 0 % 04/30/18 05:41 Myelocytes % 0 % 04/30/18 05:41 Promyelocytes % 0 % 04/30/18 05:41 Blast Cells % 0 % 04/30/18 05:41 Nucleated RBC % Not Reportable 04/30/18 05:41 Seg Neutrophils # 3.9 K/mm3 (1.8-7.7) 05/04/18 07:03 Seg Neutrophils # Man 7.7 K/mm3 (1.8-7.7) 04/30/18 05:41 Band Neutrophils # 0.1 K/mm3 04/30/18 05:41 Lymphocytes # (Manual) 0.7 K/mm3 (1.2-5.4) L 04/30/18 05:41 Abs React Lymphs (Man) 0.0 K/mm3 04/30/18 05:41 Monocytes # (Manual) 0.3 K/mm3 (0.0-0.8) 04/30/18 05:41 Eosinophils # (Manual) 0.0 K/mm3 (0.0-0.4) 04/30/18 05:41 Basophils # (Manual) 0.0 K/mm3 (0.0-0.1) 04/30/18 05:41 Metamyelocytes # 0.0 K/mm3 04/30/18 05:41 Myelocytes # 0.0 K/mm3 04/30/18 05:41 Promyelocytes # 0.0 K/mm3 04/30/18 05:41 Blast Cells # 0.0 K/mm3 04/30/18 05:41 WBC Morphology Not Reportable 04/30/18 05:41 Hypersegmented Neuts Not Reportable 04/30/18 05:41 Hyposegmented Neuts Not Reportable 04/30/18 05:41 Hypogranular Neuts Not Reportable 04/30/18 05:41 Smudge Cells Not Reportable 04/30/18 05:41 Toxic Granulation Not Reportable 04/30/18 05:41 Toxic Vacuolation Not Reportable 04/30/18 05:41 Dohle Bodies Not Reportable 04/30/18 05:41 Pelger-Huet Anomaly Not Reportable 04/30/18 05:41 Nicole Rods Not Reportable 04/30/18 05:41 Platelet Estimate Appears normal 04/30/18 05:41 Clumped Platelets Not Reportable 04/30/18 05:41 Plt Clumps, EDTA Not Reportable 04/30/18 05:41 Large Platelets Not Reportable 04/30/18 05:41 Giant Platelets Not Reportable 04/30/18 05:41 Platelet Satelliting Not Reportable 04/30/18 05:41 Plt Morphology Comment Not Reportable 04/30/18 05:41 RBC Morphology Not Reportable 04/30/18 05:41 Dimorphic RBCs Not Reportable 04/30/18 05:41 Polychromasia Not Reportable 04/30/18 05:41 Hypochromasia 1+ 04/30/18 05:41 Poikilocytosis Not Reportable 04/30/18 05:41 Anisocytosis 1+ 04/30/18 05:41 Microcytosis Not Reportable 04/30/18 05:41 Macrocytosis Not Reportable 04/30/18 05:41 Spherocytes Not Reportable 04/30/18 05:41 Pappenheimer Bodies Not Reportable 04/30/18 05:41 Sickle Cells Not Reportable 04/30/18 05:41 Target Cells Not Reportable 04/30/18 05:41 Tear Drop Cells Not Reportable 04/30/18 05:41 Ovalocytes Few 04/30/18 05:41 Stomatocytes Few 04/29/18 05:18 Helmet Cells Not Reportable 04/30/18 05:41 Spann-[place] Bodies Not Reportable 04/30/18 05:41 [place] Rings Not Reportable 04/30/18 05:41 [place] Cells Not Reportable 04/30/18 05:41 Bite Cells Not Reportable 04/30/18 05:41 Crenated Cell Not Reportable 04/30/18 05:41 Elliptocytes Not Reportable 04/30/18 05:41 Acanthocytes (Spur) Not Reportable 04/30/18 05:41 Rouleaux Not Reportable 04/30/18 05:41 Hemoglobin C Crystals Not Reportable 04/30/18 05:41 Schistocytes Not Reportable 04/30/18 05:41 Malaria parasites Not Reportable 04/30/18 05:41 Hung Bodies Not Reportable 04/30/18 05:41 Hem Pathologist Commnt No 04/30/18 05:41 PT 15.3 Sec. (12.2-14.9) H 04/22/18 05:19 INR 1.17 (0.87-1.13) H 04/22/18 05:19 APTT 29.4 Sec. (24.2-36.6) 04/19/18 05:19 POC ABG pH 7.367 (7.35-7.45) 04/19/18 00:19 POC ABG pCO2 36.8 (35-45) 04/19/18 00:19 POC ABG pO2 84 (80-105) 04/19/18 00:19 POC ABG HCO3 21.1 04/19/18 00:19 POC ABG Total CO2 22 04/19/18 00:19 POC ABG O2 Sat 96 04/19/18 00:19 POC ABG Base Excess -4 04/19/18 00:19 VBG pH 7.439 (7.320-7.420) H 04/18/18 14:30 FiO2 32 % 04/19/18 00:19 Sodium 135 mmol/L (137-145) L 05/05/18 Unknown Potassium 3.8 mmol/L (3.6-5.0) 05/05/18 Unknown Chloride 97.9 mmol/L (98-107) L 05/05/18 Unknown Carbon Dioxide 28 mmol/L (22-30) 05/05/18 Unknown Anion Gap 13 mmol/L 05/05/18 Unknown BUN 12 mg/dL (7-17) 05/05/18 Unknown Creatinine 0.2 mg/dL (0.7-1.2) L 05/05/18 Unknown Estimated GFR > 60 ml/min 05/05/18 Unknown BUN/Creatinine Ratio 60 % 05/05/18 Unknown Glucose 81 mg/dL (65-100) 05/05/18 Unknown POC Glucose 108 (70-105) H 05/05/18 16:55 Lactic Acid 0.90 mmol/L (0.7-2.0) 04/18/18 18:41 Calcium 8.0 mg/dL (8.4-10.2) L 05/05/18 Unknown Phosphorus 3.50 mg/dL (2.5-4.5) 05/05/18 Unknown Magnesium 2.00 mg/dL (1.7-2.3) 05/05/18 Unknown Total Bilirubin 0.30 mg/dL (0.1-1.2) 05/05/18 Unknown AST 46 units/L (5-40) H 05/05/18 Unknown ALT 35 units/L (7-56) 05/05/18 Unknown Alkaline Phosphatase 110 units/L (35-129) 05/05/18 Unknown Total Protein 5.5 g/dL (6.3-8.2) L 05/05/18 Unknown Albumin 2.7 g/dL (3.9-5) L 05/05/18 Unknown Albumin/Globulin Ratio 1.0 % 05/05/18 Unknown Urine Color Yellow (Yellow) 04/20/18 13:35 Urine Turbidity Clear (Clear) 04/20/18 13:35 Urine pH 5.0 (5.0-7.0) 04/20/18 13:35 Ur Specific [place] 1.011 (1.003-1.030) 04/20/18 13:35 Urine Protein <15 mg/dl mg/dL (Negative) 04/20/18 13:35 Urine Glucose (UA) Neg mg/dL (Negative) 04/20/18 13:35 Urine Ketones 20 mg/dL (Negative) 04/20/18 13:35 Urine Blood Sm (Negative) 04/20/18 13:35 Urine Nitrite Neg (Negative) 04/20/18 13:35 Urine Bilirubin Neg (Negative) 04/20/18 13:35 Urine Urobilinogen 2.0 mg/dL (<2.0) 04/20/18 13:35 Ur Leukocyte Esterase Tr (Negative) 04/20/18 13:35 Urine WBC (Auto) 2.0 /HPF (0.0-6.0) 04/20/18 13:35 Urine RBC (Auto) 1.0 /HPF (0.0-6.0) 04/20/18 13:35 U Epithel Cells (Auto) 2.0 /HPF (0-13.0) 04/18/18 16:45 Urine Bacteria (Auto) 2+ /HPF (Negative) 04/18/18 16:45 Urine Mucus Few /HPF 04/20/18 13:35 Blood Type O POSITIVE 04/19/18 13:05 Antibody Screen Negative 04/19/18 13:05 Crossmatch See Detail 04/19/18 13:05 Nutrition/Malnutrition Assess - Dietary Evaluation Nutrition/Malnutrition Findings: Nutrition Notes Start: 04/24/18 09:13 Freq: Status: Active Protocol: Document 05/05/18 12:44 RM (Rec: 05/05/18 13:04 RM [id number]) Nutrition Notes Initial or Follow up Reassessment Other Pertinent Diagnosis Perforated appendix s/p exp lap Current Diet TPN at 75ml/hr Labs/Tests Cl 97.9 CO2 28 (trending up) Pertinent Medications Reviewed Height 5 ft 1 in Weight 46.8 kg [place] Body Weight (kg) 47.72 BMI 19.5 Subjective/Other Information Day 9 TPN. Pt continues to consume popsicles and a little water. Percent of energy/protein needs met: 100%/100% Burn Absent Trauma Absent #2 Nutrition Diagnosis Increased nutrient needs ( specify in comment below) Diagnosis Progress(for reassessment Continues documentation) #1 Nutrition Diagnosis Inadequate oral intake Diagnosis Progress(for reassessment Continues documentation) Is patient on ventilator? No Is Patient Ambulatory and/or Out of Bed Yes REE-([place]-St. Jeor-ambulatory/OOB) [ 1300.494 NUTR.MSJOOB] Calculation Used for Recommendations [place]-St Jeor Additional Notes Pro needs 1.25-1.5g/k-70g /day Fluid needs 1ml/kcal Nutrition Intervention Change Diet Order: Advance when medically feasible Nutrition Support: Continue TPN at 75 ml/hr: Cl/ Acetate: 75/25, MVI,MTE Kcal 1,560 Protein (gm) 95 Carbohydrates (gm) 200 Fat (gm) 50 Fluid (mL) 2,050 Fiber (gm) 0 Goal #1 CPN to meet 90-100% energy and pro needs Goal #2 Wt maintenance Anticipated Discharge Needs: Unable to determine at this time Follow-Up By: 05/06/18 Additional Comments Labs: TORITO, Mg, Phos, TG
[2018-05-05] MEDS ORDERED: TPN ADULT 1,800 ML IV SCH (20:00)
[2018-05-06] MEDS: XANAX PO PRN ×3 (01:58→21:21)
[2018-05-06] MEDS: DILAUDID IV PRN ×7 (01:58→23:02)
[2018-05-06 06:22] LABS: BUN/Creatinine Ratio 70; Blood Urea Nitrogen 14 mg/dL (7-17); Calcium 8.1 mg/dL (8.4-10.2); Hemolysis Index 6
[2018-05-06] MEDS: PROVENTIL IH SCH ×3 (07:46→21:07)
[2018-05-06] MEDS: COZAAR PO SCH (10:35)
[2018-05-06] MEDS: NEURONTIN PO SCH ×3 (10:35→21:21)
[2018-05-06] MEDS: PEPCID IV SCH ×2 (10:43→21:21)
[2018-05-06] MEDS: NORCO 5/325 PO PRN ×3 (13:30→21:33)
[2018-05-06] MEDS: APRESOLINE IV PRN (15:23)
--- NOTE | 2018-05-06 15:32 | Progress Note ---
Assessment and Plan Assessment and plan: The patient is a 57-year-old female with hypertension, neurofibromatosis, hepatitis C, COPD, nicotine dependence presented to the emergency room on 04/18/18 with complaints of abdominal pain going on for [address] scan obtained in the emergency room revealed a ruptured appendix with associated intra-abdominal abscess. General surgery was consulted and the patient underwent an emergent exploratory laparotomy with evacuation of pelvic abscess. She was noted to have a gangrenous, perforated appendix eroding including into the small bowel. As per the op note, the abscess could not be drained as the entire abscess and inflammatory process had trapped the small bowel, which was mobilized and she underwent an ileocolic anastomosis. The patient went back to the OR on 04/25/18 for drain dislodgment. Sepsis Etiology secondary to gangrenous and perforated appendix causing intra- abdominal/pelvic abscess. Patient is status post exploratory laparotomy with appendectomy and evacuation of pelvic abscess. ID following. Continue antibiotics per ID Perforated appendix s/p exploratory lap Cont. TPN and IV abx dislodged drain, s/p taken to OR , exploratory lap, irrigation of intraabd cavity and placement of sump drain on 04/25 OOB as tiffanie Chronic hep C. Untreated. Outpatient follow-up. Accel Hypertension. Increase Cozaar to 100mg. Cont. Hydralazine prn. COPD. Compensated. Neurofibromatosis Tobacco abuse. Patient counseled on smoking cessation. Disposition - Patient need LTACH placement and discussed with case management. History Interval history: Patient was seen and evaluated this morning. No nursing issues overnight, no new complaints. Hospitalist Physical - Physical exam Narrative exam: Not in cardiopulmonary distress. The patient appeared well nourished and normally developed. Vital signs as documented. Head exam is unremarkable. No scleral icterus . Neck is without jugular venous distension, thyromegaly, or carotid bruits. Lungs are clear to auscultation. Cardiac exam reveals regular rate and Rhythm. Abdominal exam reveals draining tube in the right lower quadrant. Extremities are nonedematous and both femoral and pedal pulses are normal. ORTHOPEDIC MECHANIC: Alert and oriented 3. No focal weakness. - Constitutional Vitals: Temp Pulse Resp BP Pulse Ox 97.3 F L 114 H 18 161/86 93 05/06/18 15:10 05/06/18 15:10 05/06/18 15:10 05/06/18 15:10 05/06/18 15:10 General appearance: Present: no acute distress Results - Labs CBC & Chem 7: 05/04/18 07:03 05/06/18 05:35 Labs: Laboratory Last Values WBC 5.8 K/mm3 (4.5-11.0) 05/04/18 07:03 RBC 3.52 M/mm3 (3.65-5.03) L 05/04/18 07:03 Hgb 10.2 gm/dl (10.1-14.3) 05/04/18 07:03 Hct 29.8 % (30.3-42.9) L 05/04/18 07:03 MCV 85 fl (79-97) 05/04/18 07:03 MCH 29 pg (28-32) 05/04/18 07:03 MCHC 34 % (30-34) 05/04/18 07:03 RDW 16.2 % (13.2-15.2) H 05/04/18 07:03 Plt Count 162 K/mm3 (140-440) 05/04/18 07:03 Lymph % (Auto) 22.1 % (13.4-35.0) 05/04/18 07:03 [place] % (Auto) 8.6 % (0.0-7.3) H 05/04/18 07:03 Eos % (Auto) 1.7 % (0.0-4.3) 05/04/18 07:03 Baso % (Auto) 1.0 % (0.0-1.8) 05/04/18 07:03 Lymph # 1.3 K/mm3 (1.2-5.4) 05/04/18 07:03 [place] # 0.5 K/mm3 (0.0-0.8) 05/04/18 07:03 Eos # 0.1 K/mm3 (0.0-0.4) 05/04/18 07:03 Baso # 0.1 K/mm3 (0.0-0.1) 05/04/18 07:03 Add Manual Diff Complete 04/30/18 05:41 Total Counted 100 04/30/18 05:41 Seg Neutrophils % 66.6 % (40.0-70.0) 05/04/18 07:03 Seg Neuts % (Manual) 88.0 % (40.0-70.0) H 04/30/18 05:41 Band Neutrophils % 1.0 % 04/30/18 05:41 Lymphocytes % (Manual) 8.0 % (13.4-35.0) L 04/30/18 05:41 Reactive Lymphs % (Man) 0 % 04/30/18 05:41 Monocytes % (Manual) 3.0 % (0.0-7.3) 04/30/18 05:41 Eosinophils % (Manual) 0 % (0.0-4.3) 04/30/18 05:41 Basophils % (Manual) 0 % (0.0-1.8) 04/30/18 05:41 Metamyelocytes % 0 % 04/30/18 05:41 Myelocytes % 0 % 04/30/18 05:41 Promyelocytes % 0 % 04/30/18 05:41 Blast Cells % 0 % 04/30/18 05:41 Nucleated RBC % Not Reportable 04/30/18 05:41 Seg Neutrophils # 3.9 K/mm3 (1.8-7.7) 05/04/18 07:03 Seg Neutrophils # Man 7.7 K/mm3 (1.8-7.7) 04/30/18 05:41 Band Neutrophils # 0.1 K/mm3 04/30/18 05:41 Lymphocytes # (Manual) 0.7 K/mm3 (1.2-5.4) L 04/30/18 05:41 Abs React Lymphs (Man) 0.0 K/mm3 04/30/18 05:41 Monocytes # (Manual) 0.3 K/mm3 (0.0-0.8) 04/30/18 05:41 Eosinophils # (Manual) 0.0 K/mm3 (0.0-0.4) 04/30/18 05:41 Basophils # (Manual) 0.0 K/mm3 (0.0-0.1) 04/30/18 05:41 Metamyelocytes # 0.0 K/mm3 04/30/18 05:41 Myelocytes # 0.0 K/mm3 04/30/18 05:41 Promyelocytes # 0.0 K/mm3 04/30/18 05:41 Blast Cells # 0.0 K/mm3 04/30/18 05:41 WBC Morphology Not Reportable 04/30/18 05:41 Hypersegmented Neuts Not Reportable 04/30/18 05:41 Hyposegmented Neuts Not Reportable 04/30/18 05:41 Hypogranular Neuts Not Reportable 04/30/18 05:41 Smudge Cells Not Reportable 04/30/18 05:41 Toxic Granulation Not Reportable 04/30/18 05:41 Toxic Vacuolation Not Reportable 04/30/18 05:41 Dohle Bodies Not Reportable 04/30/18 05:41 Pelger-Huet Anomaly Not Reportable 04/30/18 05:41 Nicole Rods Not Reportable 04/30/18 05:41 Platelet Estimate Appears normal 04/30/18 05:41 Clumped Platelets Not Reportable 04/30/18 05:41 Plt Clumps, EDTA Not Reportable 04/30/18 05:41 Large Platelets Not Reportable 04/30/18 05:41 Giant Platelets Not Reportable 04/30/18 05:41 Platelet Satelliting Not Reportable 04/30/18 05:41 Plt Morphology Comment Not Reportable 04/30/18 05:41 RBC Morphology Not Reportable 04/30/18 05:41 Dimorphic RBCs Not Reportable 04/30/18 05:41 Polychromasia Not Reportable 04/30/18 05:41 Hypochromasia 1+ 04/30/18 05:41 Poikilocytosis Not Reportable 04/30/18 05:41 Anisocytosis 1+ 04/30/18 05:41 Microcytosis Not Reportable 04/30/18 05:41 Macrocytosis Not Reportable 04/30/18 05:41 Spherocytes Not Reportable 04/30/18 05:41 Pappenheimer Bodies Not Reportable 04/30/18 05:41 Sickle Cells Not Reportable 04/30/18 05:41 Target Cells Not Reportable 04/30/18 05:41 Tear Drop Cells Not Reportable 04/30/18 05:41 Ovalocytes Few 04/30/18 05:41 Stomatocytes Few 04/29/18 05:18 Helmet Cells Not Reportable 04/30/18 05:41 Spann-[place] Bodies Not Reportable 04/30/18 05:41 [place] Rings Not Reportable 04/30/18 05:41 [place] Cells Not Reportable 04/30/18 05:41 Bite Cells Not Reportable 04/30/18 05:41 Crenated Cell Not Reportable 04/30/18 05:41 Elliptocytes Not Reportable 04/30/18 05:41 Acanthocytes (Spur) Not Reportable 04/30/18 05:41 Rouleaux Not Reportable 04/30/18 05:41 Hemoglobin C Crystals Not Reportable 04/30/18 05:41 Schistocytes Not Reportable 04/30/18 05:41 Malaria parasites Not Reportable 04/30/18 05:41 Hung Bodies Not Reportable 04/30/18 05:41 Hem Pathologist Commnt No 04/30/18 05:41 PT 15.3 Sec. (12.2-14.9) H 04/22/18 05:19 INR 1.17 (0.87-1.13) H 04/22/18 05:19 APTT 29.4 Sec. (24.2-36.6) 04/19/18 05:19 POC ABG pH 7.367 (7.35-7.45) 04/19/18 00:19 POC ABG pCO2 36.8 (35-45) 04/19/18 00:19 POC ABG pO2 84 (80-105) 04/19/18 00:19 POC ABG HCO3 21.1 04/19/18 00:19 POC ABG Total CO2 22 04/19/18 00:19 POC ABG O2 Sat 96 04/19/18 00:19 POC ABG Base Excess -4 04/19/18 00:19 VBG pH 7.439 (7.320-7.420) H 04/18/18 14:30 FiO2 32 % 04/19/18 00:19 Sodium 136 mmol/L (137-145) L 05/06/18 05:35 Potassium 4.3 mmol/L (3.6-5.0) 05/06/18 05:35 Chloride 101.7 mmol/L (98-107) 05/06/18 05:35 Carbon Dioxide 26 mmol/L (22-30) 05/06/18 05:35 Anion Gap 13 mmol/L 05/06/18 05:35 BUN 14 mg/dL (7-17) 05/06/18 05:35 Creatinine 0.2 mg/dL (0.7-1.2) L 05/06/18 05:35 Estimated GFR > 60 ml/min 05/06/18 05:35 BUN/Creatinine Ratio 70 % 05/06/18 05:35 Glucose 119 mg/dL (65-100) H 05/06/18 05:35 POC Glucose 96 (70-105) 05/06/18 11:21 Lactic Acid 0.90 mmol/L (0.7-2.0) 04/18/18 18:41 Calcium 8.1 mg/dL (8.4-10.2) L 05/06/18 05:35 Phosphorus 3.80 mg/dL (2.5-4.5) 05/06/18 05:35 Magnesium 2.10 mg/dL (1.7-2.3) 05/06/18 05:35 Total Bilirubin 0.30 mg/dL (0.1-1.2) 05/05/18 Unknown AST 46 units/L (5-40) H 05/05/18 Unknown ALT 35 units/L (7-56) 05/05/18 Unknown Alkaline Phosphatase 110 units/L (35-129) 05/05/18 Unknown Total Protein 5.5 g/dL (6.3-8.2) L 05/05/18 Unknown Albumin 2.7 g/dL (3.9-5) L 05/05/18 Unknown Albumin/Globulin Ratio 1.0 % 05/05/18 Unknown Triglycerides 105 mg/dL (2-149) 05/06/18 05:35 Urine Color Yellow (Yellow) 04/20/18 13:35 Urine Turbidity Clear (Clear) 04/20/18 13:35 Urine pH 5.0 (5.0-7.0) 04/20/18 13:35 Ur Specific [place] 1.011 (1.003-1.030) 04/20/18 13:35 Urine Protein <15 mg/dl mg/dL (Negative) 04/20/18 13:35 Urine Glucose (UA) Neg mg/dL (Negative) 04/20/18 13:35 Urine Ketones 20 mg/dL (Negative) 04/20/18 13:35 Urine Blood Sm (Negative) 04/20/18 13:35 Urine Nitrite Neg (Negative) 04/20/18 13:35 Urine Bilirubin Neg (Negative) 04/20/18 13:35 Urine Urobilinogen 2.0 mg/dL (<2.0) 04/20/18 13:35 Ur Leukocyte Esterase Tr (Negative) 04/20/18 13:35 Urine WBC (Auto) 2.0 /HPF (0.0-6.0) 04/20/18 13:35 Urine RBC (Auto) 1.0 /HPF (0.0-6.0) 04/20/18 13:35 U Epithel Cells (Auto) 2.0 /HPF (0-13.0) 04/18/18 16:45 Urine Bacteria (Auto) 2+ /HPF (Negative) 04/18/18 16:45 Urine Mucus Few /HPF 04/20/18 13:35 Blood Type O POSITIVE 04/19/18 13:05 Antibody Screen Negative 04/19/18 13:05 Crossmatch See Detail 04/19/18 13:05 Nutrition/Malnutrition Assess - Dietary Evaluation Nutrition/Malnutrition Findings: Nutrition Notes Start: 04/24/18 09:13 Freq: Status: Active Protocol: Document 05/06/18 12:34 RM (Rec: 05/06/18 12:43 RM [id number]) Nutrition Notes Initial or Follow up Reassessment Current Diagnosis COPD Sepsis Hypertension Other Pertinent Diagnosis Perforated appendix s/p exp lap Current Diet TPN at 75ml/hr Labs/Tests Reviewed Pertinent Medications Reviewed Height 5 ft 1 in Weight 46.8 kg [place] Body Weight (kg) 47.72 BMI 19.5 Subjective/Other Information Day 10 TPN. Percent of energy/protein needs met: 82%/100% Burn Absent Trauma Absent #2 Nutrition Diagnosis Increased nutrient needs ( specify in comment below) Diagnosis Progress(for reassessment Continues documentation) #1 Nutrition Diagnosis Inadequate oral intake Diagnosis Progress(for reassessment Continues documentation) Is patient on ventilator? No Is Patient Ambulatory and/or Out of Bed Yes REE-([place]-St. Jeor-ambulatory/OOB) [ 1300.494 NUTR.[id number]] Calculation Used for Recommendations [place]-St Jeor Additional Notes Pro needs 1.25-1.5g/k-70g /day Fluid needs 1ml/kcal Nutrition Intervention Change Diet Order: Advance when medically feasible Nutrition Support: Continue TPN at 75 ml/hr: MVI, 250 ml 20% Lipid Kcal 1,560 Protein (gm) 95 Carbohydrates (gm) 200 Fat (gm) 50 Fluid (mL) 2,050 Fiber (gm) 0 Goal #1 CPN to meet 90-100% energy and pro needs Goal #2 Wt maintenance Anticipated Discharge Needs: Unable to determine at this time Follow-Up By: 05/07/18 Additional Comments Labs: BMP, Mg, Phos
--- NOTE | 2018-05-06 16:13 | Progress Note ---
Assessment and Plan Sepsis. Etiology secondary to gangrenous and perforated appendix causing intra- abdominal/pelvic abscess( resolved). status post exploratory laparotomy with appendectomy and evacuation of pelvic abscess. Intrabdominal sepsis/peritonitis Ruptured appendix with abdominal abscess Tobacco abuse disorder COPD, probable Neurofibromatosis - continue supplemental oxygen to keep O2 sats 88-90% - continue bronchodilators with pulmonary hygiene per RT - abdominal drain to suction (adjust per surgeon) - complete antibiotics course and adjust per ID - VTE prophylaxis - PT/OT/Mobility, OOB to chair daily, increase activity -TPN - continue incentive spirometry - continue nicotine withdrawal precautions - Smoking cessation counselling was done at the bedside(ongoing) - Analgesia, pain management -Discharge planning----LTACH vs SNF Subjective Date of service: 05/06/18 Principal diagnosis: Sepsis; Ex-lap appendectomy and evacuation of pelvic abscess; Peritonitis Interval history: Patient is seen today for: Sepsis; status post exploratory laparotomy with appendectomy and evacuation of pelvic abscess; Intrabdominal sepsis/peritonitis; Ruptured appendix with abdominal abscess Seen and examined at bedside; 24hour events reviewed; nursing and respiratory care staff consulted; no adverse overnight events reported to me; resting p eacefully in bed; feels better; denies acute chest pains or palpitations; no N/V/F/C, sump output about 300ml , continues to require supplemental oxygen at 2L/min Objective Vital Signs - 12hr 05/06/18 05/06/18 05/06/18 04:27 05:02 07:03 Temperature 98.6 F 98.1 F Pulse Rate 114 H 109 H Pulse Rate [ Bilateral] Respiratory 17 18 16 Rate Respiratory Rate [Bilateral ] Blood Pressure 154/96 164/89 Blood Pressure [Right] O2 Sat by Pulse 95 95 Oximetry 05/06/18 05/06/18 05/06/18 07:46 07:56 11:19 Temperature 97.0 F L Pulse Rate Pulse Rate [ 111 H 108 H Bilateral] Respiratory 20 Rate Respiratory 16 16 Rate [Bilateral ] Blood Pressure 149/89 Blood Pressure [Right] O2 Sat by Pulse 94 Oximetry 05/06/18 05/06/18 05/06/18 12:49 13:41 13:48 Temperature 97.9 F Pulse Rate 113 H Pulse Rate [ 111 H 108 H Bilateral] Respiratory 20 Rate Respiratory 18 18 Rate [Bilateral ] Blood Pressure Blood Pressure 149/89 [Right] O2 Sat by Pulse 94 Oximetry 05/06/18 15:10 Temperature 97.3 F L Pulse Rate 114 H Pulse Rate [ Bilateral] Respiratory 18 Rate Respiratory Rate [Bilateral ] Blood Pressure 161/86 Blood Pressure [Right] O2 Sat by Pulse 93 Oximetry Constitutional: no acute distress, alert, other (chronically ill looking this middle aged CF, normocephalic, neurofibromatosis) Eyes: non-icteric ENT: oropharynx moist Neck: supple, no lymphadenopathy, no JVD Effort: normal Ascultation: Bilateral: diminished breath sounds, rhonchi (scant in bases) Percussion: Bilateral: not dull Cardiovascular: regular rate and rhythm, other (S1,S2, no murmurs, gallops or rubs) Gastrointestinal: normoactive bowel sounds, soft, tender (bhargav-op site), non- distended, other (Drain in place with non-bloody effluent) Integumentary: other ( neurofibromatous nodules over body) Extremities: no cyanosis, no edema, pink and warm, pulses normal Neurologic: normal mental status, non-focal exam, pupils equal and round, motor strength normal and Psychiatric: mood appropriate, affect normal CBC and BMP: 05/04/18 07:03 05/06/18 05:35 ABG, PT/INR, D-dimer: ABG POC ABG pH 7.367 (7.35-7.45) 04/19/18 00:19 POC ABG pCO2 36.8 (35-45) 04/19/18 00:19 POC ABG pO2 84 (80-105) 04/19/18 00:19 POC ABG HCO3 21.1 04/19/18 00:19 POC ABG Total CO2 22 04/19/18 00:19 POC ABG O2 Sat 96 04/19/18 00:19 PT/INR, D-dimer PT 15.3 Sec. (12.2-14.9) H 04/22/18 05:19 INR 1.17 (0.87-1.13) H 04/22/18 05:19 Abnormal lab findings: Abnormal Labs 04/18/18 04/18/18 04/18/18 14:30 14:30 14:30 WBC 18.6 H RBC Hgb Hct RDW Lymph % (Auto) [place] % (Auto) Lymph # Seg Neutrophils % Seg Neuts % (Manual) 79.0 H Lymphocytes % (Manual) 4.0 L Seg Neutrophils # Man 14.7 H Lymphocytes # (Manual) 0.7 L PT 16.3 H INR 1.27 H VBG pH Sodium 121 L Potassium 3.0 L Chloride 78.0 L Carbon Dioxide BUN Creatinine 0.5 L Glucose 110 H POC Glucose Lactic Acid Calcium Phosphorus Magnesium Total Bilirubin 1.30 H AST 42 H Total Protein Albumin 3.1 L Crossmatch 04/18/18 04/18/18 04/18/18 14:30 14:30 23:59 WBC RBC Hgb Hct RDW 15.8 H Lymph % (Auto) [place] % (Auto) Lymph # Seg Neutrophils % Seg Neuts % (Manual) 78.0 H Lymphocytes % (Manual) 6.0 L Seg Neutrophils # Man Lymphocytes # (Manual) 0.5 L PT INR VBG pH 7.439 H Sodium Potassium Chloride Carbon Dioxide BUN Creatinine Glucose POC Glucose Lactic Acid 3.60 H* Calcium Phosphorus Magnesium Total Bilirubin AST Total Protein Albumin Crossmatch 04/18/18 04/19/18 04/19/18 23:59 05:19 05:19 WBC 15.0 H RBC Hgb Hct RDW 15.3 H Lymph % (Auto) [place] % (Auto) Lymph # Seg Neutrophils % Seg Neuts % (Manual) Lymphocytes % (Manual) 5.0 L Seg Neutrophils # Man 8.3 H Lymphocytes # (Manual) 0.8 L PT INR VBG pH Sodium 130 L D 133 L Potassium 3.5 L 3.3 L Chloride Carbon Dioxide 20 L D BUN Creatinine 0.5 L 0.6 L Glucose 140 H 115 H POC Glucose Lactic Acid Calcium 7.5 L 7.4 L Phosphorus Magnesium Total Bilirubin AST Total Protein 4.4 L D 4.1 L Albumin 2.0 L 1.9 L Crossmatch 04/19/18 04/19/18 04/20/18 05:19 13:05 05:18 WBC RBC Hgb Hct RDW Lymph % (Auto) [place] % (Auto) Lymph # Seg Neutrophils % Seg Neuts % (Manual) Lymphocytes % (Manual) Seg Neutrophils # Man Lymphocytes # (Manual) PT 19.4 H 17.4 H INR 1.59 H 1.38 H VBG pH Sodium Potassium Chloride Carbon Dioxide BUN Creatinine Glucose POC Glucose Lactic Acid Calcium Phosphorus Magnesium Total Bilirubin AST Total Protein Albumin Crossmatch See Detail 04/20/18 04/20/18 04/21/18 13:47 13:47 04:52 WBC RBC 3.29 L 3.10 L Hgb 9.6 L 8.8 L Hct 28.1 L D 26.6 L RDW 15.3 H 15.4 H Lymph % (Auto) 5.6 L [place] % (Auto) Lymph # 0.4 L Seg Neutrophils % 87.3 H Seg Neuts % (Manual) Lymphocytes % (Manual) Seg Neutrophils # Man Lymphocytes # (Manual) PT INR VBG pH Sodium Potassium Chloride Carbon Dioxide BUN Creatinine 0.3 L Glucose 102 H POC Glucose Lactic Acid Calcium 8.0 L Phosphorus Magnesium Total Bilirubin AST Total Protein Albumin Crossmatch 04/21/18 04/22/18 04/22/18 04:52 05:19 05:19 WBC RBC 3.64 L Hgb Hct RDW Lymph % (Auto) 8.5 L [place] % (Auto) 9.9 H Lymph # 0.6 L Seg Neutrophils % 81.0 H Seg Neuts % (Manual) Lymphocytes % (Manual) Seg Neutrophils # Man Lymphocytes # (Manual) PT 15.3 H INR 1.17 H VBG pH Sodium Potassium 3.2 L Chloride Carbon Dioxide BUN Creatinine 0.3 L Glucose POC Glucose Lactic Acid Calcium 7.6 L Phosphorus Magnesium Total Bilirubin AST Total Protein Albumin Crossmatch 04/22/18 04/24/18 04/24/18 05:19 07:19 07:19 WBC RBC Hgb Hct RDW Lymph % (Auto) [place] % (Auto) Lymph # Seg Neutrophils % Seg Neuts % (Manual) Lymphocytes % (Manual) Seg Neutrophils # Man Lymphocytes # (Manual) PT INR VBG pH Sodium Potassium 3.4 L 2.9 L* Chloride Carbon Dioxide BUN Creatinine 0.3 L 0.3 L Glucose 103 H POC Glucose Lactic Acid Calcium 7.7 L 7.5 L Phosphorus Magnesium 1.60 L Total Bilirubin AST Total Protein 4.3 L Albumin 2.2 L Crossmatch 04/24/18 04/25/18 04/25/18 07:23 06:28 06:28 WBC RBC Hgb Hct RDW 15.3 H 15.9 H Lymph % (Auto) 10.1 L [place] % (Auto) Lymph # 0.8 L Seg Neutrophils % 80.6 H Seg Neuts % (Manual) Lymphocytes % (Manual) 9.0 L Seg Neutrophils # Man Lymphocytes # (Manual) 0.7 L PT INR VBG pH Sodium Potassium 3.0 L Chloride Carbon Dioxide BUN 5 L Creatinine 0.2 L Glucose 108 H POC Glucose Lactic Acid Calcium 7.4 L Phosphorus Magnesium Total Bilirubin AST Total Protein 4.6 L Albumin 2.5 L Crossmatch 04/25/18 04/26/18 04/26/18 06:28 05:45 05:45 WBC 11.9 H RBC Hgb Hct RDW 16.2 H Lymph % (Auto) [place] % (Auto) Lymph # Seg Neutrophils % Seg Neuts % (Manual) Lymphocytes % (Manual) Seg Neutrophils # Man Lymphocytes # (Manual) PT INR VBG pH Sodium Potassium Chloride Carbon Dioxide BUN 5 L Creatinine 0.2 L Glucose 119 H POC Glucose Lactic Acid Calcium 7.7 L Phosphorus 2.00 L 2.20 L Magnesium Total Bilirubin AST Total Protein Albumin Crossmatch 04/27/18 04/28/18 04/28/18 05:33 06:00 06:00 WBC 11.2 H RBC Hgb Hct RDW 16.0 H Lymph % (Auto) [place] % (Auto) Lymph # Seg Neutrophils % Seg Neuts % (Manual) 92.0 H Lymphocytes % (Manual) 5.0 L Seg Neutrophils # Man 10.3 H Lymphocytes # (Manual) 0.6 L PT INR VBG pH Sodium Potassium 3.4 L 3.1 L Chloride Carbon Dioxide BUN 6 L 4 L Creatinine 0.2 L 0.2 L Glucose 119 H POC Glucose Lactic Acid Calcium 7.5 L 7.1 L Phosphorus 2.00 L 2.10 L Magnesium 1.50 L Total Bilirubin AST Total Protein 4.3 L Albumin 2.1 L Crossmatch 04/29/18 04/29/18 04/29/18 05:18 05:18 17:49 WBC 12.0 H RBC Hgb Hct RDW 16.0 H Lymph % (Auto) [place] % (Auto) Lymph # Seg Neutrophils % Seg Neuts % (Manual) 87.0 H Lymphocytes % (Manual) 10.0 L Seg Neutrophils # Man 10.4 H Lymphocytes # (Manual) PT INR VBG pH Sodium 135 L Potassium Chloride Carbon Dioxide BUN Creatinine 0.2 L Glucose 120 H POC Glucose 108 H Lactic Acid Calcium 7.5 L Phosphorus Magnesium Total Bilirubin AST Total Protein Albumin Crossmatch 04/30/18 04/30/18 04/30/18 00:03 05:18 05:41 WBC RBC Hgb Hct RDW Lymph % (Auto) [place] % (Auto) Lymph # Seg Neutrophils % Seg Neuts % (Manual) Lymphocytes % (Manual) Seg Neutrophils # Man Lymphocytes # (Manual) PT INR VBG pH Sodium 133 L Potassium Chloride Carbon Dioxide BUN Creatinine 0.2 L Glucose 119 H POC Glucose 112 H 110 H Lactic Acid Calcium 7.5 L Phosphorus Magnesium Total Bilirubin AST Total Protein Albumin Crossmatch 04/30/18 05/01/18 05/01/18 05:41 00:39 04:45 WBC RBC 3.60 L Hgb Hct RDW 16.0 H Lymph % (Auto) [place] % (Auto) Lymph # Seg Neutrophils % Seg Neuts % (Manual) 88.0 H Lymphocytes % (Manual) 8.0 L Seg Neutrophils # Man Lymphocytes # (Manual) 0.7 L PT INR VBG pH Sodium 132 L Potassium Chloride Carbon Dioxide BUN Creatinine 0.2 L Glucose 101 H POC Glucose 119 H Lactic Acid Calcium 7.6 L Phosphorus Magnesium Total Bilirubin AST Total Protein Albumin Crossmatch 05/01/18 05/01/18 05/01/18 06:30 16:09 23:42 WBC RBC Hgb Hct RDW Lymph % (Auto) [place] % (Auto) Lymph # Seg Neutrophils % Seg Neuts % (Manual) Lymphocytes % (Manual) Seg Neutrophils # Man Lymphocytes # (Manual) PT INR VBG pH Sodium Potassium Chloride Carbon Dioxide BUN Creatinine Glucose POC Glucose 126 H 160 H 113 H Lactic Acid Calcium Phosphorus Magnesium Total Bilirubin AST Total Protein Albumin Crossmatch 05/02/18 05/02/18 05/02/18 04:55 06:41 11:53 WBC RBC Hgb Hct RDW Lymph % (Auto) [place] % (Auto) Lymph # Seg Neutrophils % Seg Neuts % (Manual) Lymphocytes % (Manual) Seg Neutrophils # Man Lymphocytes # (Manual) PT INR VBG pH Sodium 134 L Potassium Chloride Carbon Dioxide BUN Creatinine 0.2 L Glucose 113 H POC Glucose 146 H 113 H Lactic Acid Calcium 7.4 L Phosphorus Magnesium Total Bilirubin AST Total Protein Albumin Crossmatch 05/02/18 05/02/18 05/03/18 17:33 23:37 08:46 WBC RBC 3.36 L Hgb 9.7 L Hct 28.7 L RDW 16.3 H Lymph % (Auto) [place] % (Auto) 10.0 H Lymph # Seg Neutrophils % Seg Neuts % (Manual) Lymphocytes % (Manual) Seg Neutrophils # Man Lymphocytes # (Manual) PT INR VBG pH Sodium Potassium Chloride Carbon Dioxide BUN Creatinine Glucose POC Glucose 106 H 123 H Lactic Acid Calcium Phosphorus Magnesium Total Bilirubin AST Total Protein Albumin Crossmatch 05/03/18 05/03/18 05/04/18 11:54 12:15 06:59 WBC RBC Hgb Hct RDW Lymph % (Auto) [place] % (Auto) Lymph # Seg Neutrophils % Seg Neuts % (Manual) Lymphocytes % (Manual) Seg Neutrophils # Man Lymphocytes # (Manual) PT INR VBG pH Sodium 136 L Potassium Chloride Carbon Dioxide BUN Creatinine 0.2 L Glucose 131 H POC Glucose 109 H 161 H Lactic Acid Calcium 7.6 L Phosphorus Magnesium Total Bilirubin AST Total Protein Albumin Crossmatch 05/04/18 05/04/18 05/04/18 07:03 08:02 11:10 WBC RBC 3.52 L Hgb Hct 29.8 L RDW 16.2 H Lymph % (Auto) [place] % (Auto) 8.6 H Lymph # Seg Neutrophils % Seg Neuts % (Manual) Lymphocytes % (Manual) Seg Neutrophils # Man Lymphocytes # (Manual) PT INR VBG pH Sodium 135 L Potassium Chloride Carbon Dioxide BUN Creatinine 0.2 L Glucose 160 H POC Glucose 106 H Lactic Acid Calcium 7.7 L Phosphorus Magnesium Total Bilirubin AST Total Protein Albumin Crossmatch 05/04/18 05/05/18 05/05/18 23:38 11:28 16:55 WBC RBC Hgb Hct RDW Lymph % (Auto) [place] % (Auto) Lymph # Seg Neutrophils % Seg Neuts % (Manual) Lymphocytes % (Manual) Seg Neutrophils # Man Lymphocytes # (Manual) PT INR VBG pH Sodium Potassium Chloride Carbon Dioxide BUN Creatinine Glucose POC Glucose 121 H 119 H 108 H Lactic Acid Calcium Phosphorus Magnesium Total Bilirubin AST Total Protein Albumin Crossmatch 05/05/18 05/06/18 Unknown 05:35 WBC RBC Hgb Hct RDW Lymph % (Auto) [place] % (Auto) Lymph # Seg Neutrophils % Seg Neuts % (Manual) Lymphocytes % (Manual) Seg Neutrophils # Man Lymphocytes # (Manual) PT INR VBG pH Sodium 135 L 136 L Potassium Chloride 97.9 L Carbon Dioxide BUN Creatinine 0.2 L 0.2 L Glucose 119 H POC Glucose Lactic Acid Calcium 8.0 L 8.1 L Phosphorus Magnesium Total Bilirubin AST 46 H Total Protein 5.5 L Albumin 2.7 L Crossmatch Allied health notes reviewed: nursing
--- NOTE | 2018-05-06 19:27 | Progress Note ---
Assessment and Plan Pt feeling well without compl. ambulating down halls sump - 550 cc/24 hrs Abd soft. non tender stable continue present care Selected Entries 05/06/18 15:10 Temperature 97.3 F L Pulse Rate 114 H Respiratory 18 Rate Blood Pressure 161/86 Laboratory Tests 05/06/18 05:35 Sodium 136 L Potassium 4.3 Chloride 101.7 Carbon Dioxide 26 BUN 14 Creatinine 0.2 L Objective Vital Signs - 12hr 05/06/18 05/06/18 05/06/18 07:46 07:56 11:19 Temperature 97.0 F L Pulse Rate Pulse Rate [ 111 H 108 H Bilateral] Respiratory 20 Rate Respiratory 16 16 Rate [Bilateral ] Blood Pressure 149/89 Blood Pressure [Right] O2 Sat by Pulse 94 Oximetry 05/06/18 05/06/18 05/06/18 12:49 13:41 13:48 Temperature 97.9 F Pulse Rate 113 H Pulse Rate [ 111 H 108 H Bilateral] Respiratory 20 Rate Respiratory 18 18 Rate [Bilateral ] Blood Pressure Blood Pressure 149/89 [Right] O2 Sat by Pulse 94 Oximetry 05/06/18 15:10 Temperature 97.3 F L Pulse Rate 114 H Pulse Rate [ Bilateral] Respiratory 18 Rate Respiratory Rate [Bilateral ] Blood Pressure 161/86 Blood Pressure [Right] O2 Sat by Pulse 93 Oximetry - Labs 05/04/18 07:03 05/06/18 05:35 Diabetes panel 05/06/18 Range/Units 05:35 Sodium 136 L (137-145) mmol/L Potassium 4.3 (3.6-5.0) mmol/L Chloride 101.7 (98-107) mmol/L Carbon Dioxide 26 (22-30) mmol/L BUN 14 (7-17) mg/dL Creatinine 0.2 L (0.7-1.2) mg/dL Glucose 119 H (65-100) mg/dL Calcium 8.1 L (8.4-10.2) mg/dL Triglycerides 105 (2-149) mg/dL Calcium panel 05/06/18 Range/Units 05:35 Calcium 8.1 L (8.4-10.2) mg/dL Phosphorus 3.80 (2.5-4.5) mg/dL Pituitary panel 05/06/18 Range/Units 05:35 Sodium 136 L (137-145) mmol/L Potassium 4.3 (3.6-5.0) mmol/L Chloride 101.7 (98-107) mmol/L Carbon Dioxide 26 (22-30) mmol/L BUN 14 (7-17) mg/dL Creatinine 0.2 L (0.7-1.2) mg/dL Glucose 119 H (65-100) mg/dL Calcium 8.1 L (8.4-10.2) mg/dL Adrenal panel 05/06/18 Range/Units 05:35 Sodium 136 L (137-145) mmol/L Potassium 4.3 (3.6-5.0) mmol/L Chloride 101.7 (98-107) mmol/L Carbon Dioxide 26 (22-30) mmol/L BUN 14 (7-17) mg/dL Creatinine 0.2 L (0.7-1.2) mg/dL Glucose 119 H (65-100) mg/dL Calcium 8.1 L (8.4-10.2) mg/dL
[2018-05-06] MEDS ORDERED: INTRALIPID 20% 250 ML IV SCH (20:00)
[2018-05-06] MEDS ORDERED: TPN ADULT 1,800 ML IV SCH (20:00)
[2018-05-07] MEDS: DILAUDID IV PRN ×6 (03:11→21:37)
[2018-05-07] MEDS: ZOFRAN IV PRN (03:11)
[2018-05-07] MEDS: NORCO 5/325 PO PRN ×3 (05:49→15:37)
[2018-05-07] MEDS: APRESOLINE IV PRN (05:50)
[2018-05-07] MEDS: XANAX PO PRN ×3 (06:10→20:28)
[2018-05-07 06:48] LABS: BUN/Creatinine Ratio 65; Blood Urea Nitrogen 13 mg/dL (7-17); Calcium 8.2 mg/dL (8.4-10.2); Hemolysis Index 1
[2018-05-07] MEDS: NEURONTIN PO SCH ×3 (09:14→20:31)
[2018-05-07] MEDS: PEPCID IV SCH ×2 (09:14→21:43)
[2018-05-07] MEDS: COZAAR PO SCH ×2 (09:14→12:32)
--- NOTE | 2018-05-07 09:54 | Progress Note ---
Assessment and Plan Sepsis. Etiology secondary to gangrenous and perforated appendix causing intra- abdominal/pelvic abscess( resolved). status post exploratory laparotomy with appendectomy and evacuation of pelvic abscess. Intrabdominal sepsis/peritonitis Ruptured appendix with abdominal abscess Tobacco abuse disorder COPD, probable Neurofibromatosis - continue supplemental oxygen to keep O2 sats 88-90% - continue bronchodilators with pulmonary hygiene per RT - abdominal drain to suction (adjust per surgeon) - complete antibiotics course and adjust per ID - VTE prophylaxis - PT/OT/Mobility, OOB to chair daily, increase activity - continue incentive spirometry - continue nicotine withdrawal precautions - Smoking cessation counselling was done at the bedside(ongoing) - Analgesia, pain management Subjective Date of service: 05/07/18 Principal diagnosis: Sepsis; Ex-lap appendectomy and evacuation of pelvic abscess; Peritonitis Interval history: Patient is seen today for: Sepsis; status post exploratory laparotomy with appendectomy and evacuation of pelvic abscess; Intrabdominal sepsis/peritonitis; Ruptured appendix with abdominal abscess Seen and examined at bedside; 24hour events reviewed; nursing and respiratory care staff consulted; no adverse overnight events reported to me; resting peacefully in bed; feels better; denies acute chest pains or palpitations; tolerating popsicles; no N/V/F/C Objective Vital Signs - 12hr 05/06/18 05/07/18 05/07/18 23:35 05:38 09:14 Temperature 98.6 F 98.4 F Pulse Rate 114 H 110 H 119 H Respiratory 20 18 Rate Blood Pressure 143/82 139/71 Blood Pressure 165/88 [Right] O2 Sat by Pulse 98 98 Oximetry 05/07/18 09:15 Temperature Pulse Rate Respiratory 20 Rate Blood Pressure Blood Pressure [Right] O2 Sat by Pulse Oximetry Constitutional: no acute distress, alert, other (chronically ill looking this middle aged CF, normocephalic, neurofibromatosis) Eyes: non-icteric ENT: oropharynx moist, other (Mallampati 2) Neck: supple, no lymphadenopathy, no JVD Effort: normal Ascultation: Bilateral: diminished breath sounds, rhonchi (scant in bases) Percussion: Bilateral: not dull Cardiovascular: regular rate and rhythm Gastrointestinal: normoactive bowel sounds, soft, tender (bhargav-op site), non- distended, other (Drain in place with non-bloody effluent) Integumentary: other ( neurofibromatous nodules over body) Extremities: no cyanosis, no edema, pink and warm, pulses normal Neurologic: normal mental status, non-focal exam, pupils equal and round, motor strength normal and Psychiatric: mood appropriate, affect normal CBC and BMP: 05/04/18 07:03 05/07/18 05:40 ABG, PT/INR, D-dimer: ABG POC ABG pH 7.367 (7.35-7.45) 04/19/18 00:19 POC ABG pCO2 36.8 (35-45) 04/19/18 00:19 POC ABG pO2 84 (80-105) 04/19/18 00:19 POC ABG HCO3 21.1 04/19/18 00:19 POC ABG Total CO2 22 04/19/18 00:19 POC ABG O2 Sat 96 04/19/18 00:19 PT/INR, D-dimer PT 15.3 Sec. (12.2-14.9) H 04/22/18 05:19 INR 1.17 (0.87-1.13) H 04/22/18 05:19 Abnormal lab findings: Abnormal Labs 04/18/18 04/18/18 04/18/18 14:30 14:30 14:30 WBC 18.6 H RBC Hgb Hct RDW Lymph % (Auto) [place] % (Auto) Lymph # Seg Neutrophils % Seg Neuts % (Manual) 79.0 H Lymphocytes % (Manual) 4.0 L Seg Neutrophils # Man 14.7 H Lymphocytes # (Manual) 0.7 L PT 16.3 H INR 1.27 H VBG pH Sodium 121 L Potassium 3.0 L Chloride 78.0 L Carbon Dioxide BUN Creatinine 0.5 L Glucose 110 H POC Glucose Lactic Acid Calcium Phosphorus Magnesium Total Bilirubin 1.30 H AST 42 H Total Protein Albumin 3.1 L Crossmatch 04/18/18 04/18/18 04/18/18 14:30 14:30 23:59 WBC RBC Hgb Hct RDW 15.8 H Lymph % (Auto) [place] % (Auto) Lymph # Seg Neutrophils % Seg Neuts % (Manual) 78.0 H Lymphocytes % (Manual) 6.0 L Seg Neutrophils # Man Lymphocytes # (Manual) 0.5 L PT INR VBG pH 7.439 H Sodium Potassium Chloride Carbon Dioxide BUN Creatinine Glucose POC Glucose Lactic Acid 3.60 H* Calcium Phosphorus Magnesium Total Bilirubin AST Total Protein Albumin Crossmatch 04/18/18 04/19/18 04/19/18 23:59 05:19 05:19 WBC 15.0 H RBC Hgb Hct RDW 15.3 H Lymph % (Auto) [place] % (Auto) Lymph # Seg Neutrophils % Seg Neuts % (Manual) Lymphocytes % (Manual) 5.0 L Seg Neutrophils # Man 8.3 H Lymphocytes # (Manual) 0.8 L PT INR VBG pH Sodium 130 L D 133 L Potassium 3.5 L 3.3 L Chloride Carbon Dioxide 20 L D BUN Creatinine 0.5 L 0.6 L Glucose 140 H 115 H POC Glucose Lactic Acid Calcium 7.5 L 7.4 L Phosphorus Magnesium Total Bilirubin AST Total Protein 4.4 L D 4.1 L Albumin 2.0 L 1.9 L Crossmatch 04/19/18 04/19/18 04/20/18 05:19 13:05 05:18 WBC RBC Hgb Hct RDW Lymph % (Auto) [place] % (Auto) Lymph # Seg Neutrophils % Seg Neuts % (Manual) Lymphocytes % (Manual) Seg Neutrophils # Man Lymphocytes # (Manual) PT 19.4 H 17.4 H INR 1.59 H 1.38 H VBG pH Sodium Potassium Chloride Carbon Dioxide BUN Creatinine Glucose POC Glucose Lactic Acid Calcium Phosphorus Magnesium Total Bilirubin AST Total Protein Albumin Crossmatch See Detail 04/20/18 04/20/18 04/21/18 13:47 13:47 04:52 WBC RBC 3.29 L 3.10 L Hgb 9.6 L 8.8 L Hct 28.1 L D 26.6 L RDW 15.3 H 15.4 H Lymph % (Auto) 5.6 L [place] % (Auto) Lymph # 0.4 L Seg Neutrophils % 87.3 H Seg Neuts % (Manual) Lymphocytes % (Manual) Seg Neutrophils # Man Lymphocytes # (Manual) PT INR VBG pH Sodium Potassium Chloride Carbon Dioxide BUN Creatinine 0.3 L Glucose 102 H POC Glucose Lactic Acid Calcium 8.0 L Phosphorus Magnesium Total Bilirubin AST Total Protein Albumin Crossmatch 04/21/18 04/22/18 04/22/18 04:52 05:19 05:19 WBC RBC 3.64 L Hgb Hct RDW Lymph % (Auto) 8.5 L [place] % (Auto) 9.9 H Lymph # 0.6 L Seg Neutrophils % 81.0 H Seg Neuts % (Manual) Lymphocytes % (Manual) Seg Neutrophils # Man Lymphocytes # (Manual) PT 15.3 H INR 1.17 H VBG pH Sodium Potassium 3.2 L Chloride Carbon Dioxide BUN Creatinine 0.3 L Glucose POC Glucose Lactic Acid Calcium 7.6 L Phosphorus Magnesium Total Bilirubin AST Total Protein Albumin Crossmatch 04/22/18 04/24/18 04/24/18 05:19 07:19 07:19 WBC RBC Hgb Hct RDW Lymph % (Auto) [place] % (Auto) Lymph # Seg Neutrophils % Seg Neuts % (Manual) Lymphocytes % (Manual) Seg Neutrophils # Man Lymphocytes # (Manual) PT INR VBG pH Sodium Potassium 3.4 L 2.9 L* Chloride Carbon Dioxide BUN Creatinine 0.3 L 0.3 L Glucose 103 H POC Glucose Lactic Acid Calcium 7.7 L 7.5 L Phosphorus Magnesium 1.60 L Total Bilirubin AST Total Protein 4.3 L Albumin 2.2 L Crossmatch 04/24/18 04/25/18 04/25/18 07:23 06:28 06:28 WBC RBC Hgb Hct RDW 15.3 H 15.9 H Lymph % (Auto) 10.1 L [place] % (Auto) Lymph # 0.8 L Seg Neutrophils % 80.6 H Seg Neuts % (Manual) Lymphocytes % (Manual) 9.0 L Seg Neutrophils # Man Lymphocytes # (Manual) 0.7 L PT INR VBG pH Sodium Potassium 3.0 L Chloride Carbon Dioxide BUN 5 L Creatinine 0.2 L Glucose 108 H POC Glucose Lactic Acid Calcium 7.4 L Phosphorus Magnesium Total Bilirubin AST Total Protein 4.6 L Albumin 2.5 L Crossmatch 04/25/18 04/26/18 04/26/18 06:28 05:45 05:45 WBC 11.9 H RBC Hgb Hct RDW 16.2 H Lymph % (Auto) [place] % (Auto) Lymph # Seg Neutrophils % Seg Neuts % (Manual) Lymphocytes % (Manual) Seg Neutrophils # Man Lymphocytes # (Manual) PT INR VBG pH Sodium Potassium Chloride Carbon Dioxide BUN 5 L Creatinine 0.2 L Glucose 119 H POC Glucose Lactic Acid Calcium 7.7 L Phosphorus 2.00 L 2.20 L Magnesium Total Bilirubin AST Total Protein Albumin Crossmatch 0204/28/18 04/28/18 05:33 06:00 06:00 WBC 11.2 H RBC Hgb Hct RDW 16.0 H Lymph % (Auto) [place] % (Auto) Lymph # Seg Neutrophils % Seg Neuts % (Manual) 92.0 H Lymphocytes % (Manual) 5.0 L Seg Neutrophils # Man 10.3 H Lymphocytes # (Manual) 0.6 L PT INR VBG pH Sodium Potassium 3.4 L 3.1 L Chloride Carbon Dioxide BUN 6 L 4 L Creatinine 0.2 L 0.2 L Glucose 119 H POC Glucose Lactic Acid Calcium 7.5 L 7.1 L Phosphorus 2.00 L 2.10 L Magnesium 1.50 L Total Bilirubin AST Total Protein 4.3 L Albumin 2.1 L Crossmatch 04/29/18 04/29/18 04/29/18 05:18 05:18 17:49 WBC 12.0 H RBC Hgb Hct RDW 16.0 H Lymph % (Auto) [place] % (Auto) Lymph # Seg Neutrophils % Seg Neuts % (Manual) 87.0 H Lymphocytes % (Manual) 10.0 L Seg Neutrophils # Man 10.4 H Lymphocytes # (Manual) PT INR VBG pH Sodium 135 L Potassium Chloride Carbon Dioxide BUN Creatinine 0.2 L Glucose 120 H POC Glucose 108 H Lactic Acid Calcium 7.5 L Phosphorus Magnesium Total Bilirubin AST Total Protein Albumin Crossmatch 04/30/18 04/30/18 04/30/18 00:03 05:18 05:41 WBC RBC Hgb Hct RDW Lymph % (Auto) [place] % (Auto) Lymph # Seg Neutrophils % Seg Neuts % (Manual) Lymphocytes % (Manual) Seg Neutrophils # Man Lymphocytes # (Manual) PT INR VBG pH Sodium 133 L Potassium Chloride Carbon Dioxide BUN Creatinine 0.2 L Glucose 119 H POC Glucose 112 H 110 H Lactic Acid Calcium 7.5 L Phosphorus Magnesium Total Bilirubin AST Total Protein Albumin Crossmatch 04/30/18 05/01/18 05/01/18 05:41 00:39 04:45 WBC RBC 3.60 L Hgb Hct RDW 16.0 H Lymph % (Auto) [place] % (Auto) Lymph # Seg Neutrophils % Seg Neuts % (Manual) 88.0 H Lymphocytes % (Manual) 8.0 L Seg Neutrophils # Man Lymphocytes # (Manual) 0.7 L PT INR VBG pH Sodium 132 L Potassium Chloride Carbon Dioxide BUN Creatinine 0.2 L Glucose 101 H POC Glucose 119 H Lactic Acid Calcium 7.6 L Phosphorus Magnesium Total Bilirubin AST Total Protein Albumin Crossmatch 05/01/18 05/01/18 05/01/18 06:30 16:09 23:42 WBC RBC Hgb Hct RDW Lymph % (Auto) [place] % (Auto) Lymph # Seg Neutrophils % Seg Neuts % (Manual) Lymphocytes % (Manual) Seg Neutrophils # Man Lymphocytes # (Manual) PT INR VBG pH Sodium Potassium Chloride Carbon Dioxide BUN Creatinine Glucose POC Glucose 126 H 160 H 113 H Lactic Acid Calcium Phosphorus Magnesium Total Bilirubin AST Total Protein Albumin Crossmatch 05/02/18 05/02/18 05/02/18 04:55 06:41 11:53 WBC RBC Hgb Hct RDW Lymph % (Auto) [place] % (Auto) Lymph # Seg Neutrophils % Seg Neuts % (Manual) Lymphocytes % (Manual) Seg Neutrophils # Man Lymphocytes # (Manual) PT INR VBG pH Sodium 134 L Potassium Chloride Carbon Dioxide BUN Creatinine 0.2 L Glucose 113 H POC Glucose 146 H 113 H Lactic Acid Calcium 7.4 L Phosphorus Magnesium Total Bilirubin AST Total Protein Albumin Crossmatch 05/02/18 05/02/18 05/03/18 17:33 23:37 08:46 WBC RBC 3.36 L Hgb 9.7 L Hct 28.7 L RDW 16.3 H Lymph % (Auto) [place] % (Auto) 10.0 H Lymph # Seg Neutrophils % Seg Neuts % (Manual) Lymphocytes % (Manual) Seg Neutrophils # Man Lymphocytes # (Manual) PT INR VBG pH Sodium Potassium Chloride Carbon Dioxide BUN Creatinine Glucose POC Glucose 106 H 123 H Lactic Acid Calcium Phosphorus Magnesium Total Bilirubin AST Total Protein Albumin Crossmatch 05/03/18 05/03/18 05/04/18 11:54 12:15 06:59 WBC RBC Hgb Hct RDW Lymph % (Auto) [place] % (Auto) Lymph # Seg Neutrophils % Seg Neuts % (Manual) Lymphocytes % (Manual) Seg Neutrophils # Man Lymphocytes # (Manual) PT INR VBG pH Sodium 136 L Potassium Chloride Carbon Dioxide BUN Creatinine 0.2 L Glucose 131 H POC Glucose 109 H 161 H Lactic Acid Calcium 7.6 L Phosphorus Magnesium Total Bilirubin AST Total Protein Albumin Crossmatch 05/04/18 05/04/18 05/04/18 07:03 08:02 11:10 WBC RBC 3.52 L Hgb Hct 29.8 L RDW 16.2 H Lymph % (Auto) [place] % (Auto) 8.6 H Lymph # Seg Neutrophils % Seg Neuts % (Manual) Lymphocytes % (Manual) Seg Neutrophils # Man Lymphocytes # (Manual) PT INR VBG pH Sodium 135 L Potassium Chloride Carbon Dioxide BUN Creatinine 0.2 L Glucose 160 H POC Glucose 106 H Lactic Acid Calcium 7.7 L Phosphorus Magnesium Total Bilirubin AST Total Protein Albumin Crossmatch 05/04/18 05/05/18 05/05/18 23:38 11:28 16:55 WBC RBC Hgb Hct RDW Lymph % (Auto) [place] % (Auto) Lymph # Seg Neutrophils % Seg Neuts % (Manual) Lymphocytes % (Manual) Seg Neutrophils # Man Lymphocytes # (Manual) PT INR VBG pH Sodium Potassium Chloride Carbon Dioxide BUN Creatinine Glucose POC Glucose 121 H 119 H 108 H Lactic Acid Calcium Phosphorus Magnesium Total Bilirubin AST Total Protein Albumin Crossmatch 05/05/18 05/06/18 05/06/18 Unknown 05:35 16:40 WBC RBC Hgb Hct RDW Lymph % (Auto) [place] % (Auto) Lymph # Seg Neutrophils % Seg Neuts % (Manual) Lymphocytes % (Manual) Seg Neutrophils # Man Lymphocytes # (Manual) PT INR VBG pH Sodium 135 L 136 L Potassium Chloride 97.9 L Carbon Dioxide BUN Creatinine 0.2 L 0.2 L Glucose 119 H POC Glucose 133 H Lactic Acid Calcium 8.0 L 8.1 L Phosphorus Magnesium Total Bilirubin AST 46 H Total Protein 5.5 L Albumin 2.7 L Crossmatch 05/06/18 05/07/18 05/07/18 22:07 05:38 05:40 WBC RBC Hgb Hct RDW Lymph % (Auto) [place] % (Auto) Lymph # Seg Neutrophils % Seg Neuts % (Manual) Lymphocytes % (Manual) Seg Neutrophils # Man Lymphocytes # (Manual) PT INR VBG pH Sodium 133 L Potassium Chloride Carbon Dioxide BUN Creatinine 0.2 L Glucose POC Glucose 168 H 107 H Lactic Acid Calcium 8.2 L Phosphorus Magnesium Total Bilirubin AST Total Protein Albumin Crossmatch Allied health notes reviewed: nursing
[2018-05-07] MEDS: PROVENTIL IH SCH ×3 (10:13→21:07)
--- NOTE | 2018-05-07 13:05 | Progress Note ---
Assessment and Plan Pt "had bad night last night" Drain wasn't draining, began experiencing RLQ abd pain. Drain 50 cc yesterday Drain now draining. Abd soft, non tender. Pt feeling well now stable f/u CT in am Selected Entries 05/07/18 05/07/18 05/07/18 05:38 09:14 10:26 Temperature 98.4 F Pulse Rate [ 19 L Bilateral] Blood Pressure 139/71 Laboratory Tests 05/07/18 05:40 Sodium 133 L Potassium 4.0 Chloride 102.9 Carbon Dioxide 24 Anion Gap 10 BUN 13 Creatinine 0.2 L Glucose 100 Objective Vital Signs - 12hr 05/07/18 05/07/18 05/07/18 05:38 09:14 09:15 Temperature 98.4 F Pulse Rate 110 H 119 H Pulse Rate [ Bilateral] Respiratory 18 20 Rate Respiratory Rate [Bilateral ] Blood Pressure 139/71 Blood Pressure 165/88 [Right] O2 Sat by Pulse 98 Oximetry 05/07/18 05/07/18 05/07/18 09:45 10:12 10:14 Temperature Pulse Rate Pulse Rate [ 118 H Bilateral] Respiratory 16 Rate Respiratory 19 Rate [Bilateral ] Blood Pressure Blood Pressure [Right] O2 Sat by Pulse 100 Oximetry 05/07/18 05/07/18 05/07/18 10:26 11:18 12:30 Temperature Pulse Rate Pulse Rate [ 19 L Bilateral] Respiratory 20 20 Rate Respiratory 118 H Rate [Bilateral ] Blood Pressure Blood Pressure [Right] O2 Sat by Pulse Oximetry - Labs 05/04/18 07:03 05/07/18 05:40 Diabetes panel 05/07/18 Range/Units 05:40 Sodium 133 L (137-145) mmol/L Potassium 4.0 (3.6-5.0) mmol/L Chloride 102.9 (98-107) mmol/L Carbon Dioxide 24 (22-30) mmol/L BUN 13 (7-17) mg/dL Creatinine 0.2 L (0.7-1.2) mg/dL Glucose 100 (65-100) mg/dL Calcium 8.2 L (8.4-10.2) mg/dL Calcium panel 05/07/18 Range/Units 05:40 Calcium 8.2 L (8.4-10.2) mg/dL Phosphorus 3.50 (2.5-4.5) mg/dL Pituitary panel 05/07/18 Range/Units 05:40 Sodium 133 L (137-145) mmol/L Potassium 4.0 (3.6-5.0) mmol/L Chloride 102.9 (98-107) mmol/L Carbon Dioxide 24 (22-30) mmol/L BUN 13 (7-17) mg/dL Creatinine 0.2 L (0.7-1.2) mg/dL Glucose 100 (65-100) mg/dL Calcium 8.2 L (8.4-10.2) mg/dL Adrenal panel 05/07/18 Range/Units 05:40 Sodium 133 L (137-145) mmol/L Potassium 4.0 (3.6-5.0) mmol/L Chloride 102.9 (98-107) mmol/L Carbon Dioxide 24 (22-30) mmol/L BUN 13 (7-17) mg/dL Creatinine 0.2 L (0.7-1.2) mg/dL Glucose 100 (65-100) mg/dL Calcium 8.2 L (8.4-10.2) mg/dL
--- NOTE | 2018-05-07 16:42 | Progress Note ---
Assessment and Plan Assessment and plan: The patient is a 57-year-old female with hypertension, neurofibromatosis, hepatitis C, COPD, nicotine dependence presented to the emergency room on 04/18/18 with complaints of abdominal pain going on for [address] scan obtained in the emergency room revealed a ruptured appendix with associated intra-abdominal abscess. General surgery was consulted and the patient underwent an emergent exploratory laparotomy with evacuation of pelvic abscess. She was noted to have a gangrenous, perforated appendix eroding including into the small bowel. As per the op note, the abscess could not be drained as the entire abscess and inflammatory process had trapped the small bowel, which was mobilized and she underwent an ileocolic anastomosis. The patient went back to the OR on 04/25/18 for drain dislodgment. Sepsis Etiology secondary to gangrenous and perforated appendix causing intra- abdominal/pelvic abscess. Patient is status post exploratory laparotomy with appendectomy and evacuation of pelvic abscess. ID following. Continue antibiotics per ID Perforated appendix s/p exploratory lap Cont. TPN and IV abx dislodged drain, s/p taken to OR , exploratory lap, irrigation of intraabd cavity and placement of sump drain on 04/25 Draining tube was not draing overnight but draining at the time of exam, surgery evaluated and will do CT abdomen in the morning OOB as tiffanie Chronic hep C. Untreated. Outpatient follow-up. Accel Hypertension. Increase Cozaar to 100mg. Cont. Hydralazine prn. COPD. Compensated. Neurofibromatosis Tobacco abuse. Patient counseled on smoking cessation. Disposition - Patient need LTACH placement and discussed with case management. History Interval history: Patient was seen and evaluated this morning. Patient says she had a bad night because her draining tube is not draining overnight. Hospitalist Physical - Physical exam Narrative exam: Not in cardiopulmonary distress. The patient appeared well nourished and normally developed. Vital signs as documented. Head exam is unremarkable. No scleral icterus . Neck is without jugular venous distension, thyromegaly, or carotid bruits. Lungs are clear to auscultation. Cardiac exam reveals regular rate and Rhythm. Abdominal exam reveals draining tube in the right lower quadrant. Extremities are nonedematous and both femoral and pedal pulses are normal. DATA DEVELOPER: Alert and oriented 3. No focal weakness. - Constitutional Vitals: Temp Pulse Resp BP Pulse Ox 98.4 F 108 H 20 139/71 100 02/28/19 05:38 05/07/18 14:47 05/07/18 15:38 05/07/18 09:14 05/07/18 10:14 General appearance: Present: no acute distress Results - Labs CBC & Chem 7: 05/04/18 07:03 05/07/18 05:40 Labs: Laboratory Last Values WBC 5.8 K/mm3 (4.5-11.0) 05/04/18 07:03 RBC 3.52 M/mm3 (3.65-5.03) L 05/04/18 07:03 Hgb 10.2 gm/dl (10.1-14.3) 05/04/18 07:03 Hct 29.8 % (30.3-42.9) L 05/04/18 07:03 MCV 85 fl (79-97) 05/04/18 07:03 MCH 29 pg (28-32) 05/04/18 07:03 MCHC 34 % (30-34) 05/04/18 07:03 RDW 16.2 % (13.2-15.2) H 05/04/18 07:03 Plt Count 162 K/mm3 (140-440) 05/04/18 07:03 Lymph % (Auto) 22.1 % (13.4-35.0) 05/04/18 07:03 [place] % (Auto) 8.6 % (0.0-7.3) H 05/04/18 07:03 Eos % (Auto) 1.7 % (0.0-4.3) 05/04/18 07:03 Baso % (Auto) 1.0 % (0.0-1.8) 05/04/18 07:03 Lymph # 1.3 K/mm3 (1.2-5.4) 05/04/18 07:03 [place] # 0.5 K/mm3 (0.0-0.8) 05/04/18 07:03 Eos # 0.1 K/mm3 (0.0-0.4) 05/04/18 07:03 Baso # 0.1 K/mm3 (0.0-0.1) 05/04/18 07:03 Add Manual Diff Complete 04/30/18 05:41 Total Counted 100 04/30/18 05:41 Seg Neutrophils % 66.6 % (40.0-70.0) 05/04/18 07:03 Seg Neuts % (Manual) 88.0 % (40.0-70.0) H 04/30/18 05:41 Band Neutrophils % 1.0 % 04/30/18 05:41 Lymphocytes % (Manual) 8.0 % (13.4-35.0) L 04/30/18 05:41 Reactive Lymphs % (Man) 0 % 04/30/18 05:41 Monocytes % (Manual) 3.0 % (0.0-7.3) 04/30/18 05:41 Eosinophils % (Manual) 0 % (0.0-4.3) 04/30/18 05:41 Basophils % (Manual) 0 % (0.0-1.8) 04/30/18 05:41 Metamyelocytes % 0 % 04/30/18 05:41 Myelocytes % 0 % 04/30/18 05:41 Promyelocytes % 0 % 04/30/18 05:41 Blast Cells % 0 % 04/30/18 05:41 Nucleated RBC % Not Reportable 04/30/18 05:41 Seg Neutrophils # 3.9 K/mm3 (1.8-7.7) 05/04/18 07:03 Seg Neutrophils # Man 7.7 K/mm3 (1.8-7.7) 04/30/18 05:41 Band Neutrophils # 0.1 K/mm3 04/30/18 05:41 Lymphocytes # (Manual) 0.7 K/mm3 (1.2-5.4) L 04/30/18 05:41 Abs React Lymphs (Man) 0.0 K/mm3 04/30/18 05:41 Monocytes # (Manual) 0.3 K/mm3 (0.0-0.8) 04/30/18 05:41 Eosinophils # (Manual) 0.0 K/mm3 (0.0-0.4) 04/30/18 05:41 Basophils # (Manual) 0.0 K/mm3 (0.0-0.1) 04/30/18 05:41 Metamyelocytes # 0.0 K/mm3 04/30/18 05:41 Myelocytes # 0.0 K/mm3 04/30/18 05:41 Promyelocytes # 0.0 K/mm3 04/30/18 05:41 Blast Cells # 0.0 K/mm3 04/30/18 05:41 WBC Morphology Not Reportable 04/30/18 05:41 Hypersegmented Neuts Not Reportable 04/30/18 05:41 Hyposegmented Neuts Not Reportable 04/30/18 05:41 Hypogranular Neuts Not Reportable 04/30/18 05:41 Smudge Cells Not Reportable 04/30/18 05:41 Toxic Granulation Not Reportable 04/30/18 05:41 Toxic Vacuolation Not Reportable 04/30/18 05:41 Dohle Bodies Not Reportable 04/30/18 05:41 Pelger-Huet Anomaly Not Reportable 04/30/18 05:41 Nicole Rods Not Reportable 04/30/18 05:41 Platelet Estimate Appears normal 04/30/18 05:41 Clumped Platelets Not Reportable 04/30/18 05:41 Plt Clumps, EDTA Not Reportable 04/30/18 05:41 Large Platelets Not Reportable 04/30/18 05:41 Giant Platelets Not Reportable 04/30/18 05:41 Platelet Satelliting Not Reportable 04/30/18 05:41 Plt Morphology Comment Not Reportable 04/30/18 05:41 RBC Morphology Not Reportable 04/30/18 05:41 Dimorphic RBCs Not Reportable 04/30/18 05:41 Polychromasia Not Reportable 04/30/18 05:41 Hypochromasia 1+ 04/30/18 05:41 Poikilocytosis Not Reportable 04/30/18 05:41 Anisocytosis 1+ 04/30/18 05:41 Microcytosis Not Reportable 04/30/18 05:41 Macrocytosis Not Reportable 04/30/18 05:41 Spherocytes Not Reportable 04/30/18 05:41 Pappenheimer Bodies Not Reportable 04/30/18 05:41 Sickle Cells Not Reportable 04/30/18 05:41 Target Cells Not Reportable 04/30/18 05:41 Tear Drop Cells Not Reportable 04/30/18 05:41 Ovalocytes Few 04/30/18 05:41 Stomatocytes Few 04/29/18 05:18 Helmet Cells Not Reportable 04/30/18 05:41 [place] Bodies Not Reportable 04/30/18 05:41 [place] Rings Not Reportable 04/30/18 05:41 Philip Cells Not Reportable 04/30/18 05:41 Bite Cells Not Reportable 04/30/18 05:41 Crenated Cell Not Reportable 04/30/18 05:41 Elliptocytes Not Reportable 04/30/18 05:41 Acanthocytes (Spur) Not Reportable 04/30/18 05:41 Rouleaux Not Reportable 04/30/18 05:41 Hemoglobin C Crystals Not Reportable 04/30/18 05:41 Schistocytes Not Reportable 04/30/18 05:41 Malaria parasites Not Reportable 04/30/18 05:41 Hung Bodies Not Reportable 04/30/18 05:41 Hem Pathologist Commnt No 04/30/18 05:41 PT 15.3 Sec. (12.2-14.9) H 04/22/18 05:19 INR 1.17 (0.87-1.13) H 04/22/18 05:19 APTT 29.4 Sec. (24.2-36.6) 04/19/18 05:19 POC ABG pH 7.367 (7.35-7.45) 04/19/18 00:19 POC ABG pCO2 36.8 (35-45) 04/19/18 00:19 POC ABG pO2 84 (80-105) 04/19/18 00:19 POC ABG HCO3 21.1 04/19/18 00:19 POC ABG Total CO2 22 04/19/18 00:19 POC ABG O2 Sat 96 04/19/18 00:19 POC ABG Base Excess -4 04/19/18 00:19 VBG pH 7.439 (7.320-7.420) H 04/18/18 14:30 FiO2 32 % 04/19/18 00:19 Sodium 133 mmol/L (137-145) L 05/07/18 05:40 Potassium 4.0 mmol/L (3.6-5.0) 05/07/18 05:40 Chloride 102.9 mmol/L (98-107) 05/07/18 05:40 Carbon Dioxide 24 mmol/L (22-30) 05/07/18 05:40 Anion Gap 10 mmol/L 05/07/18 05:40 BUN 13 mg/dL (7-17) 05/07/18 05:40 Creatinine 0.2 mg/dL (0.7-1.2) L 05/07/18 05:40 Estimated GFR > 60 ml/min 05/07/18 05:40 BUN/Creatinine Ratio 65 % 05/07/18 05:40 Glucose 100 mg/dL (65-100) 05/07/18 05:40 POC Glucose 145 (70-105) H 05/07/18 11:56 Lactic Acid 0.90 mmol/L (0.7-2.0) 04/18/18 18:41 Calcium 8.2 mg/dL (8.4-10.2) L 05/07/18 05:40 Phosphorus 3.50 mg/dL (2.5-4.5) 05/07/18 05:40 Magnesium 2.00 mg/dL (1.7-2.3) 05/07/18 05:40 Total Bilirubin 0.30 mg/dL (0.1-1.2) 05/05/18 Unknown AST 46 units/L (5-40) H 05/05/18 Unknown ALT 35 units/L (7-56) 05/05/18 Unknown Alkaline Phosphatase 110 units/L (35-129) 05/05/18 Unknown Total Protein 5.5 g/dL (6.3-8.2) L 05/05/18 Unknown Albumin 2.7 g/dL (3.9-5) L 05/05/18 Unknown Albumin/Globulin Ratio 1.0 % 05/05/18 Unknown Triglycerides 105 mg/dL (2-149) 05/06/18 05:35 Urine Color Yellow (Yellow) 04/20/18 13:35 Urine Turbidity Clear (Clear) 04/20/18 13:35 Urine pH 5.0 (5.0-7.0) 04/20/18 13:35 Ur Specific [place] 1.011 (1.003-1.030) 04/20/18 13:35 Urine Protein <15 mg/dl mg/dL (Negative) 04/20/18 13:35 Urine Glucose (UA) Neg mg/dL (Negative) 04/20/18 13:35 Urine Ketones 20 mg/dL (Negative) 04/20/18 13:35 Urine Blood Sm (Negative) 04/20/18 13:35 Urine Nitrite Neg (Negative) 04/20/18 13:35 Urine Bilirubin Neg (Negative) 04/20/18 13:35 Urine Urobilinogen 2.0 mg/dL (<2.0) 04/20/18 13:35 Ur Leukocyte Esterase Tr (Negative) 04/20/18 13:35 Urine WBC (Auto) 2.0 /HPF (0.0-6.0) 04/20/18 13:35 Urine RBC (Auto) 1.0 /HPF (0.0-6.0) 04/20/18 13:35 U Epithel Cells (Auto) 2.0 /HPF (0-13.0) 04/18/18 16:45 Urine Bacteria (Auto) 2+ /HPF (Negative) 04/18/18 16:45 Urine Mucus Few /HPF 04/20/18 13:35 Blood Type O POSITIVE 04/19/18 13:05 Antibody Screen Negative 04/19/18 13:05 Crossmatch See Detail 04/19/18 13:05 Nutrition/Malnutrition Assess - Dietary Evaluation Nutrition/Malnutrition Findings: Nutrition Notes Start: 04/24/18 09:13 Freq: Status: Active Protocol: Document 05/06/18 12:34 RM (Rec: 05/06/18 12:43 RM [id number]) Nutrition Notes Initial or Follow up Reassessment Current Diagnosis COPD Sepsis Hypertension Other Pertinent Diagnosis Perforated appendix s/p exp lap Current Diet TPN at 75ml/hr Labs/Tests Reviewed Pertinent Medications Reviewed Height 5 ft 1 in Weight 46.8 kg [place] Body Weight (kg) 47.72 BMI 19.5 Subjective/Other Information Day 10 TPN. Percent of energy/protein needs met: 82%/100% Burn Absent Trauma Absent #2 Nutrition Diagnosis Increased nutrient needs ( specify in comment below) Diagnosis Progress(for reassessment Continues documentation) #1 Nutrition Diagnosis Inadequate oral intake Diagnosis Progress(for reassessment Continues documentation) Is patient on ventilator? No Is Patient Ambulatory and/or Out of Bed Yes REE-(Barry-St. Jeor-ambulatory/OOB) [ 1300.494 [id number]] Calculation Used for Recommendations Barry-St Jeor Additional Notes Pro needs 1.25-1.5g/k-70g /day Fluid needs 1ml/kcal Nutrition Intervention Change Diet Order: Advance when medically feasible Nutrition Support: Continue TPN at 75 ml/hr: MVI, 250 ml 20% Lipid Kcal 1,560 Protein (gm) 95 Carbohydrates (gm) 200 Fat (gm) 50 Fluid (mL) 2,050 Fiber (gm) 0 Goal #1 CPN to meet 90-100% energy and pro needs Goal #2 Wt maintenance Anticipated Discharge Needs: Unable to determine at this time Follow-Up By: 05/07/18 Additional Comments Labs: BMP, Mg, Phos
[2018-05-07] MEDS ORDERED: TPN ADULT 1,800 ML IV SCH (20:00)
[2018-05-08] MEDS: DILAUDID IV PRN ×7 (00:38→21:10)
[2018-05-08] MEDS: NORCO 5/325 PO PRN ×3 (02:19→11:52)
[2018-05-08 06:36] LABS: Basophils # (Auto) 0.1 K/mm3 (0.0-0.1); Basophils % (Auto) 1.1 % (0.0-1.8); Eosinophils # (Auto) 0.2 K/mm3 (0.0-0.4); Eosinophils % (Auto) 3.2 % (0.0-4.3); Hematocrit 32.3 % (30.3-42.9); Hemoglobin 10.7 gm/dl (10.1-14.3); Lymphocytes # (Auto) 1.4 K/mm3 (1.2-5.4); Lymphocytes % (Auto) 29.1 % (13.4-35.0); Mean Corpuscular HGB Conc 33 % (30-34); Mean Corpuscular Volume 85 fl (79-97); Monocytes # (Auto) 0.4 K/mm3 (0.0-0.8); Monocytes % (Auto) 7.7 % (0.0-7.3); Platelet Count 156 K/mm3 (140-440); Red Blood Count 3.82 M/mm3 (3.65-5.03); Red Cell Distribution Width 16.3 % (13.2-15.2)
[2018-05-08 06:52] LABS: BUN/Creatinine Ratio 75; Blood Urea Nitrogen 15 mg/dL (7-17); Calcium 8.5 mg/dL (8.4-10.2); Hemolysis Index 4
[2018-05-08] MEDS: PROVENTIL IH SCH ×3 (07:17→20:06)
[2018-05-08] MEDS: NEURONTIN PO SCH ×3 (08:08→21:09)
[2018-05-08] MEDS: COZAAR PO SCH (11:07)
[2018-05-08] MEDS: PEPCID IV SCH ×2 (11:07→21:09)
--- NOTE | 2018-05-08 11:47 | Progress Note ---
Assessment and Plan Pt somewhat depressed but feeling wll. Sump - 150 cc bilious Abd soft, non tender CT - reviewed with radiologist. Abd very much improved. Lung - LLL consolidation r/o pneumonia inform Pulm of findings mental health eval discussed with pharmacy about adding sandostatin to TPN or giving subq continue present care Objective Vital Signs - 12hr 05/08/18 05/08/18 05/08/18 00:14 04:29 07:02 Temperature 98.0 F 97.9 F 98.0 F Pulse Rate 110 H 102 H 102 H Pulse Rate [ Bilateral] Respiratory 18 16 18 Rate Respiratory Rate [Bilateral ] Blood Pressure 142/81 127/68 130/69 O2 Sat by Pulse 97 99 99 Oximetry 05/08/18 05/08/18 05/08/18 07:30 07:40 10:00 Temperature Pulse Rate Pulse Rate [ 102 H 102 H Bilateral] Respiratory Rate Respiratory 18 18 Rate [Bilateral ] Blood Pressure O2 Sat by Pulse 99 Oximetry 05/08/18 11:24 Temperature 97.8 F Pulse Rate 107 H Pulse Rate [ Bilateral] Respiratory 16 Rate Respiratory Rate [Bilateral ] Blood Pressure 147/79 O2 Sat by Pulse 95 Oximetry - Labs 05/08/18 05:38 05/08/18 05:38 Diabetes panel 05/08/18 Range/Units 05:38 Sodium 135 L (137-145) mmol/L Potassium 4.4 (3.6-5.0) mmol/L Chloride 98.4 (98-107) mmol/L Carbon Dioxide 26 (22-30) mmol/L BUN 15 (7-17) mg/dL Creatinine 0.2 L (0.7-1.2) mg/dL Glucose 100 (65-100) mg/dL Calcium 8.5 (8.4-10.2) mg/dL Calcium panel 05/08/18 Range/Units 05:38 Calcium 8.5 (8.4-10.2) mg/dL Pituitary panel 05/08/18 Range/Units 05:38 Sodium 135 L (137-145) mmol/L Potassium 4.4 (3.6-5.0) mmol/L Chloride 98.4 (98-107) mmol/L Carbon Dioxide 26 (22-30) mmol/L BUN 15 (7-17) mg/dL Creatinine 0.2 L (0.7-1.2) mg/dL Glucose 100 (65-100) mg/dL Calcium 8.5 (8.4-10.2) mg/dL Adrenal panel 05/08/18 Range/Units 05:38 Sodium 135 L (137-145) mmol/L Potassium 4.4 (3.6-5.0) mmol/L Chloride 98.4 (98-107) mmol/L Carbon Dioxide 26 (22-30) mmol/L BUN 15 (7-17) mg/dL Creatinine 0.2 L (0.7-1.2) mg/dL Glucose 100 (65-100) mg/dL Calcium 8.5 (8.4-10.2) mg/dL
[2018-05-08] MEDS: XANAX PO PRN ×2 (11:50→21:37)
--- NOTE | 2018-05-08 13:04 | Progress Note ---
Assessment and Plan Sepsis. Etiology secondary to gangrenous and perforated appendix causing intra- abdominal/pelvic abscess( resolved). status post exploratory laparotomy with appendectomy and evacuation of pelvic abscess. Intrabdominal sepsis/peritonitis Ruptured appendix with abdominal abscess Tobacco abuse disorder COPD, probable Neurofibromatosis - continue supplemental oxygen to keep O2 sats 88-90% - continue bronchodilators with pulmonary hygiene per RT - abdominal drain to suction (adjust per surgeon) - complete antibiotics course and adjust per ID - VTE prophylaxis - PT/OT/Mobility, OOB to chair daily, increase activity - continue incentive spirometry - continue nicotine withdrawal precautions - Smoking cessation counselling was done at the bedside(ongoing) - Analgesia, pain management -Discharge planning Subjective Date of service: 05/08/18 Principal diagnosis: Sepsis; Ex-lap appendectomy and evacuation of pelvic abscess; Peritonitis Interval history: Patient is seen today for: Sepsis; status post exploratory laparotomy with appendectomy and evacuation of pelvic abscess; Intrabdominal sepsis/peritonitis; Ruptured appendix with abdominal abscess Seen and examined at bedside; 24hour events reviewed; nursing and respiratory care staff consulted; no adverse overnight events reported to me; resting peacefully in bed; feels better; denies acute chest pains or palpitations; tolerating popsicles; no N/V/F/C Objective Vital Signs - 12hr 05/08/18 05/08/18 05/08/18 04:29 07:02 07:30 Temperature 97.9 F 98.0 F Pulse Rate 102 H 102 H Pulse Rate [ 102 H Bilateral] Respiratory 16 18 Rate Respiratory 18 Rate [Bilateral ] Blood Pressure 127/68 130/69 O2 Sat by Pulse 99 99 Oximetry 05/08/18 05/08/18 05/08/18 07:40 10:00 11:24 Temperature 97.8 F Pulse Rate 107 H Pulse Rate [ 102 H Bilateral] Respiratory 16 Rate Respiratory 18 Rate [Bilateral ] Blood Pressure 147/79 O2 Sat by Pulse 99 95 Oximetry Constitutional: no acute distress, alert, other (chronically ill looking this middle aged CF, normocephalic, neurofibromatosis) Eyes: non-icteric ENT: oropharynx moist, other (Mallampati 2) Neck: supple, no lymphadenopathy, no JVD Effort: normal Ascultation: Bilateral: diminished breath sounds, rhonchi (scant in bases) Percussion: Bilateral: not dull Cardiovascular: regular rate and rhythm Gastrointestinal: normoactive bowel sounds, soft, tender (bhargav-op site), non- distended, other (Drain in place with non-bloody effluent) Integumentary: other ( neurofibromatous nodules over body) Extremities: no cyanosis, no edema, pink and warm, pulses normal Neurologic: normal mental status, non-focal exam, pupils equal and round, motor strength normal and Psychiatric: mood appropriate, affect normal CBC and BMP: 05/08/18 05:38 05/09/18 06:15 ABG, PT/INR, D-dimer: ABG POC ABG pH 7.367 (7.35-7.45) 04/19/18 00:19 POC ABG pCO2 36.8 (35-45) 04/19/18 00:19 POC ABG pO2 84 (80-105) 04/19/18 00:19 POC ABG HCO3 21.1 04/19/18 00:19 POC ABG Total CO2 22 04/19/18 00:19 POC ABG O2 Sat 96 04/19/18 00:19 PT/INR, D-dimer PT 15.3 Sec. (12.2-14.9) H 04/22/18 05:19 INR 1.17 (0.87-1.13) H 04/22/18 05:19 Abnormal lab findings: Abnormal Labs 04/18/18 04/18/18 04/18/18 14:30 14:30 14:30 WBC 18.6 H RBC Hgb Hct RDW Lymph % (Auto) Ramsey % (Auto) Lymph # Seg Neutrophils % Seg Neuts % (Manual) 79.0 H Lymphocytes % (Manual) 4.0 L Seg Neutrophils # Man 14.7 H Lymphocytes # (Manual) 0.7 L PT 16.3 H INR 1.27 H VBG pH Sodium 121 L Potassium 3.0 L Chloride 78.0 L Carbon Dioxide BUN Creatinine 0.5 L Glucose 110 H POC Glucose Lactic Acid Calcium Phosphorus Magnesium Total Bilirubin 1.30 H AST 42 H Total Protein Albumin 3.1 L Crossmatch 04/18/18 04/18/18 04/18/18 14:30 14:30 23:59 WBC RBC Hgb Hct RDW 15.8 H Lymph % (Auto) Ramsey % (Auto) Lymph # Seg Neutrophils % Seg Neuts % (Manual) 78.0 H Lymphocytes % (Manual) 6.0 L Seg Neutrophils # Man Lymphocytes # (Manual) 0.5 L PT INR VBG pH 7.439 H Sodium Potassium Chloride Carbon Dioxide BUN Creatinine Glucose POC Glucose Lactic Acid 3.60 H* Calcium Phosphorus Magnesium Total Bilirubin AST Total Protein Albumin Crossmatch 04/18/18 04/19/18 04/19/18 23:59 05:19 05:19 WBC 15.0 H RBC Hgb Hct RDW 15.3 H Lymph % (Auto) Ramsey % (Auto) Lymph # Seg Neutrophils % Seg Neuts % (Manual) Lymphocytes % (Manual) 5.0 L Seg Neutrophils # Man 8.3 H Lymphocytes # (Manual) 0.8 L PT INR VBG pH Sodium 130 L D 133 L Potassium 3.5 L 3.3 L Chloride Carbon Dioxide 20 L D BUN Creatinine 0.5 L 0.6 L Glucose 140 H 115 H POC Glucose Lactic Acid Calcium 7.5 L 7.4 L Phosphorus Magnesium Total Bilirubin AST Total Protein 4.4 L D 4.1 L Albumin 2.0 L 1.9 L Crossmatch 04/19/18 04/19/18 04/20/18 05:19 13:05 05:18 WBC RBC Hgb Hct RDW Lymph % (Auto) Ramsey % (Auto) Lymph # Seg Neutrophils % Seg Neuts % (Manual) Lymphocytes % (Manual) Seg Neutrophils # Man Lymphocytes # (Manual) PT 19.4 H 17.4 H INR 1.59 H 1.38 H VBG pH Sodium Potassium Chloride Carbon Dioxide BUN Creatinine Glucose POC Glucose Lactic Acid Calcium Phosphorus Magnesium Total Bilirubin AST Total Protein Albumin Crossmatch See Detail 04/20/18 04/20/18 04/21/18 13:47 13:47 04:52 WBC RBC 3.29 L 3.10 L Hgb 9.6 L 8.8 L Hct 28.1 L D 26.6 L RDW 15.3 H 15.4 H Lymph % (Auto) 5.6 L Ramsey % (Auto) Lymph # 0.4 L Seg Neutrophils % 87.3 H Seg Neuts % (Manual) Lymphocytes % (Manual) Seg Neutrophils # Man Lymphocytes # (Manual) PT INR VBG pH Sodium Potassium Chloride Carbon Dioxide BUN Creatinine 0.3 L Glucose 102 H POC Glucose Lactic Acid Calcium 8.0 L Phosphorus Magnesium Total Bilirubin AST Total Protein Albumin Crossmatch 04/21/18 04/22/1804/22/19 04:52 05:19 05:19 WBC RBC 3.64 L Hgb Hct RDW Lymph % (Auto) 8.5 L Ramsey % (Auto) 9.9 H Lymph # 0.6 L Seg Neutrophils % 81.0 H Seg Neuts % (Manual) Lymphocytes % (Manual) Seg Neutrophils # Man Lymphocytes # (Manual) PT 15.3 H INR 1.17 H VBG pH Sodium Potassium 3.2 L Chloride Carbon Dioxide BUN Creatinine 0.3 L Glucose POC Glucose Lactic Acid Calcium 7.6 L Phosphorus Magnesium Total Bilirubin AST Total Protein Albumin Crossmatch 04/22/18 04/24/18 04/24/18 05:19 07:19 07:19 WBC RBC Hgb Hct RDW Lymph % (Auto) Ramsey % (Auto) Lymph # Seg Neutrophils % Seg Neuts % (Manual) Lymphocytes % (Manual) Seg Neutrophils # Man Lymphocytes # (Manual) PT INR VBG pH Sodium Potassium 3.4 L 2.9 L* Chloride Carbon Dioxide BUN Creatinine 0.3 L 0.3 L Glucose 103 H POC Glucose Lactic Acid Calcium 7.7 L 7.5 L Phosphorus Magnesium 1.60 L Total Bilirubin AST Total Protein 4.3 L Albumin 2.2 L Crossmatch 04/24/18 04/25/18 04/25/18 07:23 06:28 06:28 WBC RBC Hgb Hct RDW 15.3 H 15.9 H Lymph % (Auto) 10.1 L Ramsey % (Auto) Lymph # 0.8 L Seg Neutrophils % 80.6 H Seg Neuts % (Manual) Lymphocytes % (Manual) 9.0 L Seg Neutrophils # Man Lymphocytes # (Manual) 0.7 L PT INR VBG pH Sodium Potassium 3.0 L Chloride Carbon Dioxide BUN 5 L Creatinine 0.2 L Glucose 108 H POC Glucose Lactic Acid Calcium 7.4 L Phosphorus Magnesium Total Bilirubin AST Total Protein 4.6 L Albumin 2.5 L Crossmatch 04/25/18 04/26/18 04/26/18 06:28 05:45 05:45 WBC 11.9 H RBC Hgb Hct RDW 16.2 H Lymph % (Auto) Ramsey % (Auto) Lymph # Seg Neutrophils % Seg Neuts % (Manual) Lymphocytes % (Manual) Seg Neutrophils # Man Lymphocytes # (Manual) PT INR VBG pH Sodium Potassium Chloride Carbon Dioxide BUN 5 L Creatinine 0.2 L Glucose 119 H POC Glucose Lactic Acid Calcium 7.7 L Phosphorus 2.00 L 2.20 L Magnesium Total Bilirubin AST Total Protein Albumin Crossmatch 04/27/18 04/28/18 04/28/18 05:33 06:00 06:00 WBC 11.2 H RBC Hgb Hct RDW 16.0 H Lymph % (Auto) Ramsey % (Auto) Lymph # Seg Neutrophils % Seg Neuts % (Manual) 92.0 H Lymphocytes % (Manual) 5.0 L Seg Neutrophils # Man 10.3 H Lymphocytes # (Manual) 0.6 L PT INR VBG pH Sodium Potassium 3.4 L 3.1 L Chloride Carbon Dioxide BUN 6 L 4 L Creatinine 0.2 L 0.2 L Glucose 119 H POC Glucose Lactic Acid Calcium 7.5 L 7.1 L Phosphorus 2.00 L 2.10 L Magnesium 1.50 L Total Bilirubin AST Total Protein 4.3 L Albumin 2.1 L Crossmatch 04/29/18 04/29/18 04/29/18 05:18 05:18 17:49 WBC 12.0 H RBC Hgb Hct RDW 16.0 H Lymph % (Auto) Ramsey % (Auto) Lymph # Seg Neutrophils % Seg Neuts % (Manual) 87.0 H Lymphocytes % (Manual) 10.0 L Seg Neutrophils # Man 10.4 H Lymphocytes # (Manual) PT INR VBG pH Sodium 135 L Potassium Chloride Carbon Dioxide BUN Creatinine 0.2 L Glucose 120 H POC Glucose 108 H Lactic Acid Calcium 7.5 L Phosphorus Magnesium Total Bilirubin AST Total Protein Albumin Crossmatch 04/30/18 04/30/18 04/30/18 00:03 05:18 05:41 WBC RBC Hgb Hct RDW Lymph % (Auto) Ramsey % (Auto) Lymph # Seg Neutrophils % Seg Neuts % (Manual) Lymphocytes % (Manual) Seg Neutrophils # Man Lymphocytes # (Manual) PT INR VBG pH Sodium 133 L Potassium Chloride Carbon Dioxide BUN Creatinine 0.2 L Glucose 119 H POC Glucose 112 H 110 H Lactic Acid Calcium 7.5 L Phosphorus Magnesium Total Bilirubin AST Total Protein Albumin Crossmatch 04/30/18 05/01/18 05/01/18 05:41 00:39 04:45 WBC RBC 3.60 L Hgb Hct RDW 16.0 H Lymph % (Auto) Ramsey % (Auto) Lymph # Seg Neutrophils % Seg Neuts % (Manual) 88.0 H Lymphocytes % (Manual) 8.0 L Seg Neutrophils # Man Lymphocytes # (Manual) 0.7 L PT INR VBG pH Sodium 132 L Potassium Chloride Carbon Dioxide BUN Creatinine 0.2 L Glucose 101 H POC Glucose 119 H Lactic Acid Calcium 7.6 L Phosphorus Magnesium Total Bilirubin AST Total Protein Albumin Crossmatch 05/01/18 05/01/18 05/01/18 06:30 16:09 23:42 WBC RBC Hgb Hct RDW Lymph % (Auto) Ramsey % (Auto) Lymph # Seg Neutrophils % Seg Neuts % (Manual) Lymphocytes % (Manual) Seg Neutrophils # Man Lymphocytes # (Manual) PT INR VBG pH Sodium Potassium Chloride Carbon Dioxide BUN Creatinine Glucose POC Glucose 126 H 160 H 113 H Lactic Acid Calcium Phosphorus Magnesium Total Bilirubin AST Total Protein Albumin Crossmatch 05/02/18 05/02/18 05/02/18 04:55 06:41 11:53 WBC RBC Hgb Hct RDW Lymph % (Auto) Ramsey % (Auto) Lymph # Seg Neutrophils % Seg Neuts % (Manual) Lymphocytes % (Manual) Seg Neutrophils # Man Lymphocytes # (Manual) PT INR VBG pH Sodium 134 L Potassium Chloride Carbon Dioxide BUN Creatinine 0.2 L Glucose 113 H POC Glucose 146 H 113 H Lactic Acid Calcium 7.4 L Phosphorus Magnesium Total Bilirubin AST Total Protein Albumin Crossmatch 05/02/18 05/02/18 05/03/18 17:33 23:37 08:46 WBC RBC 3.36 L Hgb 9.7 L Hct 28.7 L RDW 16.3 H Lymph % (Auto) Ramsey % (Auto) 10.0 H Lymph # Seg Neutrophils % Seg Neuts % (Manual) Lymphocytes % (Manual) Seg Neutrophils # Man Lymphocytes # (Manual) PT INR VBG pH Sodium Potassium Chloride Carbon Dioxide BUN Creatinine Glucose POC Glucose 106 H 123 H Lactic Acid Calcium Phosphorus Magnesium Total Bilirubin AST Total Protein Albumin Crossmatch 05/03/18 05/03/18 05/04/18 11:54 12:15 06:59 WBC RBC Hgb Hct RDW Lymph % (Auto) Ramsey % (Auto) Lymph # Seg Neutrophils % Seg Neuts % (Manual) Lymphocytes % (Manual) Seg Neutrophils # Man Lymphocytes # (Manual) PT INR VBG pH Sodium 136 L Potassium Chloride Carbon Dioxide BUN Creatinine 0.2 L Glucose 131 H POC Glucose 109 H 161 H Lactic Acid Calcium 7.6 L Phosphorus Magnesium Total Bilirubin AST Total Protein Albumin Crossmatch 05/04/18 05/04/18 05/04/18 07:03 08:02 11:10 WBC RBC 3.52 L Hgb Hct 29.8 L RDW 16.2 H Lymph % (Auto) Ramsey % (Auto) 8.6 H Lymph # Seg Neutrophils % Seg Neuts % (Manual) Lymphocytes % (Manual) Seg Neutrophils # Man Lymphocytes # (Manual) PT INR VBG pH Sodium 135 L Potassium Chloride Carbon Dioxide BUN Creatinine 0.2 L Glucose 160 H POC Glucose 106 H Lactic Acid Calcium 7.7 L Phosphorus Magnesium Total Bilirubin AST Total Protein Albumin Crossmatch 05/04/18 05/05/18 05/05/18 23:38 11:28 16:55 WBC RBC Hgb Hct RDW Lymph % (Auto) Ramsey % (Auto) Lymph # Seg Neutrophils % Seg Neuts % (Manual) Lymphocytes % (Manual) Seg Neutrophils # Man Lymphocytes # (Manual) PT INR VBG pH Sodium Potassium Chloride Carbon Dioxide BUN Creatinine Glucose POC Glucose 121 H 119 H 108 H Lactic Acid Calcium Phosphorus Magnesium Total Bilirubin AST Total Protein Albumin Crossmatch 05/05/18 05/06/18 05/06/18 Unknown 05:35 16:40 WBC RBC Hgb Hct RDW Lymph % (Auto) Ramsey % (Auto) Lymph # Seg Neutrophils % Seg Neuts % (Manual) Lymphocytes % (Manual) Seg Neutrophils # Man Lymphocytes # (Manual) PT INR VBG pH Sodium 135 L 136 L Potassium Chloride 97.9 L Carbon Dioxide BUN Creatinine 0.2 L 0.2 L Glucose 119 H POC Glucose 133 H Lactic Acid Calcium 8.0 L 8.1 L Phosphorus Magnesium Total Bilirubin AST 46 H Total Protein 5.5 L Albumin 2.7 L Crossmatch 05/06/18 05/07/18 05/07/18 22:07 05:38 05:40 WBC RBC Hgb Hct RDW Lymph % (Auto) Ramsey % (Auto) Lymph # Seg Neutrophils % Seg Neuts % (Manual) Lymphocytes % (Manual) Seg Neutrophils # Man Lymphocytes # (Manual) PT INR VBG pH Sodium 133 L Potassium Chloride Carbon Dioxide BUN Creatinine 0.2 L Glucose POC Glucose 168 H 107 H Lactic Acid Calcium 8.2 L Phosphorus Magnesium Total Bilirubin AST Total Protein Albumin Crossmatch 02/05/07/18 05/08/18 11:56 18:04 05:38 WBC RBC Hgb Hct RDW 16.3 H Lymph % (Auto) Ramsey % (Auto) 7.7 H Lymph # Seg Neutrophils % Seg Neuts % (Manual) Lymphocytes % (Manual) Seg Neutrophils # Man Lymphocytes # (Manual) PT INR VBG pH Sodium Potassium Chloride Carbon Dioxide BUN Creatinine Glucose POC Glucose 145 H 125 H Lactic Acid Calcium Phosphorus Magnesium Total Bilirubin AST Total Protein Albumin Crossmatch 05/08/18 05/08/18 05:38 11:35 WBC RBC Hgb Hct RDW Lymph % (Auto) Ramsey % (Auto) Lymph # Seg Neutrophils % Seg Neuts % (Manual) Lymphocytes % (Manual) Seg Neutrophils # Man Lymphocytes # (Manual) PT INR VBG pH Sodium 135 L Potassium Chloride Carbon Dioxide BUN Creatinine 0.2 L Glucose POC Glucose 118 H Lactic Acid Calcium Phosphorus Magnesium Total Bilirubin AST Total Protein Albumin Crossmatch Allied health notes reviewed: nursing
--- NOTE | 2018-05-08 15:17 | Progress Note ---
Assessment and Plan Assessment and plan: The patient is a 57-year-old female with hypertension, neurofibromatosis, hepatitis C, COPD, nicotine dependence presented to the emergency room on 04/18/18 with complaints of abdominal pain going on for [address] scan obtained in the emergency room revealed a ruptured appendix with associated intra-abdominal abscess. General surgery was consulted and the patient underwent an emergent exploratory laparotomy with evacuation of pelvic abscess. She was noted to have a gangrenous, perforated appendix eroding including into the small bowel. As per the op note, the abscess could not be drained as the entire abscess and inflammatory process had trapped the small bowel, which was mobilized and she underwent an ileocolic anastomosis. The patient went back to the OR on 04/25/18 for drain dislodgment. Sepsis Etiology secondary to gangrenous and perforated appendix causing intra- abdominal/pelvic abscess. Patient is status post exploratory laparotomy with appendectomy and evacuation of pelvic abscess. ID following. Continue antibiotics per ID Perforated appendix s/p exploratory lap Cont. TPN and IV abx dislodged drain, s/p taken to OR , exploratory lap, irrigation of intraabd cavity and placement of sump drain on 04/25 Draining tube was not draing overnight but draining at the time of exam, surgery evaluated and will do CT abdomen in the morning OOB as tiffanie Chronic hep C. Untreated. Outpatient follow-up. Accel Hypertension. Increase Cozaar to 100mg. Cont. Hydralazine prn. COPD. Compensated. Neurofibromatosis Tobacco abuse. Patient counseled on smoking cessation. Disposition - Patient need LTACH placement after cleared by surgery. History Interval history: Patient was seen and evaluated this morning. Didn't have any complaints. Hospitalist Physical - Physical exam Narrative exam: Not in cardiopulmonary distress. The patient appeared well nourished and normally developed. Vital signs as documented. Head exam is unremarkable. No scleral icterus . Neck is without jugular venous distension, thyromegaly, or carotid bruits. Lungs are clear to auscultation. Cardiac exam reveals regular rate and Rhythm. Abdominal exam reveals draining tube in the right lower quadrant. Extremities are nonedematous and both femoral and pedal pulses are normal. ARCHITECTURE MANAGER: Alert and oriented 3. No focal weakness. - Constitutional Vitals: Temp Pulse Resp BP Pulse Ox 97.8 F 107 H 16 147/79 95 05/08/18 11:24 05/08/18 11:24 05/08/18 11:24 05/08/18 11:24 05/08/18 11:24 General appearance: Present: no acute distress Results - Labs CBC & Chem 7: 05/08/18 05:38 05/08/18 05:38 Labs: Laboratory Last Values WBC 4.9 K/mm3 (4.5-11.0) 05/08/18 05:38 RBC 3.82 M/mm3 (3.65-5.03) 05/08/18 05:38 Hgb 10.7 gm/dl (10.1-14.3) 05/08/18 05:38 Hct 32.3 % (30.3-42.9) 05/08/18 05:38 MCV 85 fl (79-97) 05/08/18 05:38 MCH 28 pg (28-32) 05/08/18 05:38 MCHC 33 % (30-34) 05/08/18 05:38 RDW 16.3 % (13.2-15.2) H 05/08/18 05:38 Plt Count 156 K/mm3 (140-440) 05/08/18 05:38 Lymph % (Auto) 29.1 % (13.4-35.0) 05/08/18 05:38 Tripp % (Auto) 7.7 % (0.0-7.3) H 05/08/18 05:38 Eos % (Auto) 3.2 % (0.0-4.3) 05/08/18 05:38 Baso % (Auto) 1.1 % (0.0-1.8) 05/08/18 05:38 Lymph # 1.4 K/mm3 (1.2-5.4) 05/08/18 05:38 Tripp # 0.4 K/mm3 (0.0-0.8) 05/08/18 05:38 Eos # 0.2 K/mm3 (0.0-0.4) 05/08/18 05:38 Baso # 0.1 K/mm3 (0.0-0.1) 05/08/18 05:38 Add Manual Diff Complete 04/30/18 05:41 Total Counted 100 04/30/18 05:41 Seg Neutrophils % 58.9 % (40.0-70.0) 05/08/18 05:38 Seg Neuts % (Manual) 88.0 % (40.0-70.0) H 04/30/18 05:41 Band Neutrophils % 1.0 % 04/30/18 05:41 Lymphocytes % (Manual) 8.0 % (13.4-35.0) L 04/30/18 05:41 Reactive Lymphs % (Man) 0 % 04/30/18 05:41 Monocytes % (Manual) 3.0 % (0.0-7.3) 04/30/18 05:41 Eosinophils % (Manual) 0 % (0.0-4.3) 04/30/18 05:41 Basophils % (Manual) 0 % (0.0-1.8) 04/30/18 05:41 Metamyelocytes % 0 % 04/30/18 05:41 Myelocytes % 0 % 04/30/18 05:41 Promyelocytes % 0 % 04/30/18 05:41 Blast Cells % 0 % 04/30/18 05:41 Nucleated RBC % Not Reportable 04/30/18 05:41 Seg Neutrophils # 2.9 K/mm3 (1.8-7.7) 05/08/18 05:38 Seg Neutrophils # Man 7.7 K/mm3 (1.8-7.7) 04/30/18 05:41 Band Neutrophils # 0.1 K/mm3 04/30/18 05:41 Lymphocytes # (Manual) 0.7 K/mm3 (1.2-5.4) L 04/30/18 05:41 Abs React Lymphs (Man) 0.0 K/mm3 04/30/18 05:41 Monocytes # (Manual) 0.3 K/mm3 (0.0-0.8) 04/30/18 05:41 Eosinophils # (Manual) 0.0 K/mm3 (0.0-0.4) 04/30/18 05:41 Basophils # (Manual) 0.0 K/mm3 (0.0-0.1) 04/30/18 05:41 Metamyelocytes # 0.0 K/mm3 04/30/18 05:41 Myelocytes # 0.0 K/mm3 04/30/18 05:41 Promyelocytes # 0.0 K/mm3 04/30/18 05:41 Blast Cells # 0.0 K/mm3 04/30/18 05:41 WBC Morphology Not Reportable 04/30/18 05:41 Hypersegmented Neuts Not Reportable 04/30/18 05:41 Hyposegmented Neuts Not Reportable 04/30/18 05:41 Hypogranular Neuts Not Reportable 04/30/18 05:41 Smudge Cells Not Reportable 04/30/18 05:41 Toxic Granulation Not Reportable 04/30/18 05:41 Toxic Vacuolation Not Reportable 04/30/18 05:41 Dohle Bodies Not Reportable 04/30/18 05:41 Pelger-Huet Anomaly Not Reportable 04/30/18 05:41 Nicole Rods Not Reportable 04/30/18 05:41 Platelet Estimate Appears normal 04/30/18 05:41 Clumped Platelets Not Reportable 04/30/18 05:41 Plt Clumps, EDTA Not Reportable 04/30/18 05:41 Large Platelets Not Reportable 04/30/18 05:41 Giant Platelets Not Reportable 04/30/18 05:41 Platelet Satelliting Not Reportable 04/30/18 05:41 Plt Morphology Comment Not Reportable 04/30/18 05:41 RBC Morphology Not Reportable 04/30/18 05:41 Dimorphic RBCs Not Reportable 04/30/18 05:41 Polychromasia Not Reportable 04/30/18 05:41 Hypochromasia 1+ 04/30/18 05:41 Poikilocytosis Not Reportable 04/30/18 05:41 Anisocytosis 1+ 04/30/18 05:41 Microcytosis Not Reportable 04/30/18 05:41 Macrocytosis Not Reportable 04/30/18 05:41 Spherocytes Not Reportable 04/30/18 05:41 Pappenheimer Bodies Not Reportable 04/30/18 05:41 Sickle Cells Not Reportable 04/30/18 05:41 Target Cells Not Reportable 04/30/18 05:41 Tear Drop Cells Not Reportable 04/30/18 05:41 Ovalocytes Few 04/30/18 05:41 Stomatocytes Few 04/29/18 05:18 Helmet Cells Not Reportable 04/30/18 05:41 [place] Bodies Not Reportable 04/30/18 05:41 [place] Rings Not Reportable 04/30/18 05:41 [place] Cells Not Reportable 04/30/18 05:41 Bite Cells Not Reportable 04/30/18 05:41 Crenated Cell Not Reportable 04/30/18 05:41 Elliptocytes Not Reportable 04/30/18 05:41 Acanthocytes (Spur) Not Reportable 04/30/18 05:41 Rouleaux Not Reportable 04/30/18 05:41 Hemoglobin C Crystals Not Reportable 04/30/18 05:41 Schistocytes Not Reportable 04/30/18 05:41 Malaria parasites Not Reportable 04/30/18 05:41 Hung Bodies Not Reportable 04/30/18 05:41 Hem Pathologist Commnt No 04/30/18 05:41 PT 15.3 Sec. (12.2-14.9) H 04/22/18 05:19 INR 1.17 (0.87-1.13) H 04/22/18 05:19 APTT 29.4 Sec. (24.2-36.6) 04/19/18 05:19 POC ABG pH 7.367 (7.35-7.45) 04/19/18 00:19 POC ABG pCO2 36.8 (35-45) 04/19/18 00:19 POC ABG pO2 84 (80-105) 04/19/18 00:19 POC ABG HCO3 21.1 04/19/18 00:19 POC ABG Total CO2 22 04/19/18 00:19 POC ABG O2 Sat 96 04/19/18 00:19 POC ABG Base Excess -4 04/19/18 00:19 VBG pH 7.439 (7.320-7.420) H 04/18/18 14:30 FiO2 32 % 04/19/18 00:19 Sodium 135 mmol/L (137-145) L 05/08/18 05:38 Potassium 4.4 mmol/L (3.6-5.0) 05/08/18 05:38 Chloride 98.4 mmol/L (98-107) 05/08/18 05:38 Carbon Dioxide 26 mmol/L (22-30) 05/08/18 05:38 Anion Gap 15 mmol/L 05/08/18 05:38 BUN 15 mg/dL (7-17) 05/08/18 05:38 Creatinine 0.2 mg/dL (0.7-1.2) L 05/08/18 05:38 Estimated GFR > 60 ml/min 05/08/18 05:38 BUN/Creatinine Ratio 75 % 05/08/18 05:38 Glucose 100 mg/dL (65-100) 05/08/18 05:38 POC Glucose 118 (70-105) H 05/08/18 11:35 Lactic Acid 0.90 mmol/L (0.7-2.0) 04/18/18 18:41 Calcium 8.5 mg/dL (8.4-10.2) 05/08/18 05:38 Phosphorus 3.50 mg/dL (2.5-4.5) 05/07/18 05:40 Magnesium 2.00 mg/dL (1.7-2.3) 05/07/18 05:40 Total Bilirubin 0.30 mg/dL (0.1-1.2) 05/05/18 Unknown AST 46 units/L (5-40) H 05/05/18 Unknown ALT 35 units/L (7-56) 05/05/18 Unknown Alkaline Phosphatase 110 units/L (35-129) 05/05/18 Unknown Total Protein 5.5 g/dL (6.3-8.2) L 05/05/18 Unknown Albumin 2.7 g/dL (3.9-5) L 05/05/18 Unknown Albumin/Globulin Ratio 1.0 % 05/05/18 Unknown Triglycerides 105 mg/dL (2-149) 05/06/18 05:35 Urine Color Yellow (Yellow) 04/20/18 13:35 Urine Turbidity Clear (Clear) 04/20/18 13:35 Urine pH 5.0 (5.0-7.0) 04/20/18 13:35 Ur Specific [place] 1.011 (1.003-1.030) 04/20/18 13:35 Urine Protein <15 mg/dl mg/dL (Negative) 04/20/18 13:35 Urine Glucose (UA) Neg mg/dL (Negative) 04/20/18 13:35 Urine Ketones 20 mg/dL (Negative) 04/20/18 13:35 Urine Blood Sm (Negative) 04/20/18 13:35 Urine Nitrite Neg (Negative) 04/20/18 13:35 Urine Bilirubin Neg (Negative) 04/20/18 13:35 Urine Urobilinogen 2.0 mg/dL (<2.0) 04/20/18 13:35 Ur Leukocyte Esterase Tr (Negative) 04/20/18 13:35 Urine WBC (Auto) 2.0 /HPF (0.0-6.0) 04/20/18 13:35 Urine RBC (Auto) 1.0 /HPF (0.0-6.0) 04/20/18 13:35 U Epithel Cells (Auto) 2.0 /HPF (0-13.0) 04/18/18 16:45 Urine Bacteria (Auto) 2+ /HPF (Negative) 04/18/18 16:45 Urine Mucus Few /HPF 04/20/18 13:35 Blood Type O POSITIVE 04/19/18 13:05 Antibody Screen Negative 04/19/18 13:05 Crossmatch See Detail 04/19/18 13:05 Nutrition/Malnutrition Assess - Dietary Evaluation Nutrition/Malnutrition Findings: Nutrition Notes Start: 04/24/18 09:13 Freq: Status: Active Protocol: Document 05/08/18 14:23 RM (Rec: 05/08/18 14:30 RM [id number]) Nutrition Notes Initial or Follow up Reassessment Current Diagnosis COPD Sepsis Hypertension Other Pertinent Diagnosis Perforated appendix s/p exp lap, Hep C Current Diet TPN at 75ml/hr Labs/Tests Reviewed Pertinent Medications Reviewed Height 5 ft 1 in Weight 42.1 kg [place] Body Weight (kg) 47.72 BMI 17.5 Weight change and time frame Current wt obtained from bedscale 15.6% wt loss X 2 weeks Subjective/Other Information Day 12 TPN. Percent of energy/protein needs met: 86%/100% Burn Absent Trauma Absent #2 Nutrition Diagnosis Increased nutrient needs ( specify in comment below) Diagnosis Progress(for reassessment Continues documentation) #1 Nutrition Diagnosis Inadequate oral intake Diagnosis Progress(for reassessment Continues documentation) Is patient on ventilator? No Is Patient Ambulatory and/or Out of Bed Yes REE-(Lincoln-St. Jeor-ambulatory/OOB) [ 1239.394 [id number]] Calculation Used for Recommendations [place]-St Jeor Additional Notes Pro needs 1.25-1.5g/k-70g /day Fluid needs 1ml/kcal Nutrition Intervention Change Diet Order: Advance when medically feasible Nutrition Support: Continue TPN at 75 ml/hr: 13.9 % dextrose, 250 ml 20% lipid, MVI Kcal 1,730 Protein (gm) 95 Carbohydrates (gm) 250 Fat (gm) 50 Fluid (mL) 2,050 Goal #1 CPN to meet 90-100% energy and pro needs Goal #2 Wt maintenance Anticipated Discharge Needs: Unable to determine at this time Follow-Up By: 05/09/18 Additional Comments Labs: BMP, Mg, Phos
--- NOTE | 2018-05-08 15:50 | Cat Scan Report ---
CT ABDOMEN AND PELVIS WITH CONTRAST INDICATION: Followup bowel leak. COMPARISON: 04/24/2018. FINDINGS: Abdomen and pelvis CT performed following intravenous administration of 100 cc of Omnipaque 300. LUNG BASES: Pleural effusions have resolved on the right and decreased on the left. Improved bibasilar atelectasis as well, left more than right. Innumerable small pneumatoceles or bullae again noted at the lung bases, the largest measuring up to approximately 1 cm. Nonspecific distal esophageal wall mild prominence/thickening, not excluded for gastroesophageal reflux and/or hiatal hernia, amongst others. ABDOMEN: Significant interval improvement/near resolution of ascites with minimal fluid now possibly remaining towards the inferior splenic tip as on axial series 2, images 60-70. Few stable, indeterminate splenic hypodensities. Liver again enlarged to approximately 20.6 cm craniocaudal. Splenic length is 16.2 cm. Gallbladder again contracted. Patent veins. Stable pancreas, adrenals, nonaneurysmal abdominal aorta, IVC and the kidneys. Circumaortic left renal vein with a retroaortic component again noted as on axial image 72, series 2. A left para-aortic lymph node may again measure up to 0.8 cm as on axial image 57. No other size significant adenopathy. Nonopacified GI tract evaluation limited, though grossly nonobstructive. Right lower quadrant bowel postsurgical changes again noted as on axial image 113. PELVIS: A new right lower quadrant drain has its tip in the deep right hemipelvis with approximately 6 x 2 cm heterogeneity/debris surrounding its distal aspect as on axial series 2, image 129. Few other smaller pelvic abscess components as measuring up to approximately 2 cm also noted as on axial image 126. Grossly unremarkable urinary bladder. Some fluid noted in the rectosigmoid with wall thickening not entirely excluded as on axial images 110-150. Uterus surgically absent. Air now noted within an approximately 2 cm possible low-lying abscess or bowel loop towards the right groin as on axial image 138, series 2. No size significant adenopathy. Focal skin thickening/growths again noted as in the right groin, axial image 147 as also possibly involving the external genitalia/labia. Umbilical/infraumbilical midline incision also noted, possibly open at places. Stable L3 vertebral body appearance with anterosuperior corner irregularity, possibly developmental versus posttraumatic. Few small posterior lumbar surgical clips about this level also again noted. CONCLUSION: 1. New right lower quadrant drain extending into the pelvis noted with debris/abscess surrounding it distally, as described. Few other smaller pelvic abscesses/fluid collections may also be noted with overall appearance not significantly worse since 04/24/2018 and much improved since 04/18/[address] 2. Improving bibasilar atelectasis and effusions, left more than right. 3. Rectosigmoid wall thickening not excluded. 4. Various other findings as hepatosplenomegaly and right lower quadrant bowel anastomotic changes, amongst others, as above. Thank you for the opportunity to participate in this patient's care.
[2018-05-08] MEDS ORDERED: TPN ADULT 1,800 ML IV SCH (20:00)
[2018-05-08] MEDS ORDERED: INTRALIPID 20% 250 ML IV SCH (20:00)
[2018-05-09] MEDS: DILAUDID IV PRN ×7 (00:05→22:52)
[2018-05-09] MEDS: XANAX PO PRN ×2 (06:15→17:20)
[2018-05-09 07:04] LABS: BUN/Creatinine Ratio 65; Blood Urea Nitrogen 13 mg/dL (7-17); Calcium 8.5 mg/dL (8.4-10.2); Hemolysis Index 5
--- NOTE | 2018-05-09 09:31 | Progress Note ---
Assessment and Plan Sepsis. Etiology secondary to gangrenous and perforated appendix causing intra- abdominal/pelvic abscess( resolved). status post exploratory laparotomy with appendectomy and evacuation of pelvic abscess. Intrabdominal sepsis/peritonitis Ruptured appendix with abdominal abscess Tobacco abuse disorder COPD, probable Neurofibromatosis - continue supplemental oxygen to keep O2 sats 88-90% - continue bronchodilators with pulmonary hygiene per RT - abdominal drain to suction (adjust per surgeon) - complete antibiotics course and adjust per ID - VTE prophylaxis - PT/OT/Mobility, OOB to chair daily, increase activity - continue incentive spirometry - continue nicotine withdrawal precautions - Smoking cessation counselling was done at the bedside(ongoing) - Analgesia, pain management The lower lobe infiltrate is probably atelectasis. Clinically patient does not have a pneumonia We will continue with airway clearance techniques, bronchodilators and supplemental oxygen. We will continue to monitor her closely, if there is any clinical deterioration or indication for antibiotics targeted to HAP, we will initiate antibiotics at that time Discussed with the surgeon -Discharge planning Subjective Date of service: 05/09/18 Principal diagnosis: Sepsis; Ex-lap appendectomy and evacuation of pelvic abscess; Peritonitis Interval history: Patient is seen today for: Sepsis; status post exploratory laparotomy with appendectomy and evacuation of pelvic abscess; Intrabdominal sepsis/peritonitis; Ruptured appendix with abdominal abscess Seen and examined at bedside; 24hour events reviewed; nursing and respiratory care staff consulted; no adverse overnight events reported to me; resting peacefully in bed; feels better; denies acute chest pains or palpitations; no N/V/F/C "I feel ok" Objective Vital Signs - 12hr 05/08/18 05/09/18 05/09/18 23:19 03:15 04:46 Temperature 98.1 F 97.9 F Pulse Rate 107 H 121 H Respiratory 16 18 16 Rate Blood Pressure 145/78 149/82 O2 Sat by Pulse 95 95 Oximetry 05/09/18 05/09/18 07:16 07:17 Temperature 98.2 F Pulse Rate 113 H 112 H Respiratory 18 Rate Blood Pressure 133/74 O2 Sat by Pulse 96 97 Oximetry Constitutional: no acute distress, alert, other (chronically ill looking this middle aged CF, normocephalic, neurofibromatosis) Eyes: non-icteric ENT: oropharynx moist, other (Mallampati 2) Neck: supple, no lymphadenopathy, no JVD Effort: normal Ascultation: Bilateral: diminished breath sounds, rhonchi (scant in bases) Percussion: Bilateral: not dull Cardiovascular: regular rate and rhythm Gastrointestinal: normoactive bowel sounds, soft, tender (bhargav-op site), non- distended, other (Drain in place with non-bloody effluent) Integumentary: other ( neurofibromatous nodules over body) Extremities: no cyanosis, no edema, pink and warm, pulses normal Neurologic: normal mental status, non-focal exam, pupils equal and round, motor strength normal and Psychiatric: mood appropriate, affect normal CBC and BMP: 05/08/18 05:38 05/09/18 06:15 ABG, PT/INR, D-dimer: ABG POC ABG pH 7.367 (7.35-7.45) 04/19/18 00:19 POC ABG pCO2 36.8 (35-45) 04/19/18 00:19 POC ABG pO2 84 (80-105) 04/19/18 00:19 POC ABG HCO3 21.1 04/19/18 00:19 POC ABG Total CO2 22 04/19/18 00:19 POC ABG O2 Sat 96 04/19/18 00:19 PT/INR, D-dimer PT 15.3 Sec. (12.2-14.9) H 04/22/18 05:19 INR 1.17 (0.87-1.13) H 04/22/18 05:19 Abnormal lab findings: Abnormal Labs 04/18/18 04/18/18 04/18/18 14:30 14:30 14:30 WBC 18.6 H RBC Hgb Hct RDW Lymph % (Auto) [place] % (Auto) Lymph # Seg Neutrophils % Seg Neuts % (Manual) 79.0 H Lymphocytes % (Manual) 4.0 L Seg Neutrophils # Man 14.7 H Lymphocytes # (Manual) 0.7 L PT 16.3 H INR 1.27 H VBG pH Sodium 121 L Potassium 3.0 L Chloride 78.0 L Carbon Dioxide BUN Creatinine 0.5 L Glucose 110 H POC Glucose Lactic Acid Calcium Phosphorus Magnesium Total Bilirubin 1.30 H AST 42 H Total Protein Albumin 3.1 L Crossmatch 04/18/18 04/18/18 04/18/18 14:30 14:30 23:59 WBC RBC Hgb Hct RDW 15.8 H Lymph % (Auto) [place] % (Auto) Lymph # Seg Neutrophils % Seg Neuts % (Manual) 78.0 H Lymphocytes % (Manual) 6.0 L Seg Neutrophils # Man Lymphocytes # (Manual) 0.5 L PT INR VBG pH 7.439 H Sodium Potassium Chloride Carbon Dioxide BUN Creatinine Glucose POC Glucose Lactic Acid 3.60 H* Calcium Phosphorus Magnesium Total Bilirubin AST Total Protein Albumin Crossmatch 04/18/18 04/19/18 04/19/18 23:59 05:19 05:19 WBC 15.0 H RBC Hgb Hct RDW 15.3 H Lymph % (Auto) [place] % (Auto) Lymph # Seg Neutrophils % Seg Neuts % (Manual) Lymphocytes % (Manual) 5.0 L Seg Neutrophils # Man 8.3 H Lymphocytes # (Manual) 0.8 L PT INR VBG pH Sodium 130 L D 133 L Potassium 3.5 L 3.3 L Chloride Carbon Dioxide 20 L D BUN Creatinine 0.5 L 0.6 L Glucose 140 H 115 H POC Glucose Lactic Acid Calcium 7.5 L 7.4 L Phosphorus Magnesium Total Bilirubin AST Total Protein 4.4 L D 4.1 L Albumin 2.0 L 1.9 L Crossmatch 04/19/18 04/19/18 04/20/18 05:19 13:05 05:18 WBC RBC Hgb Hct RDW Lymph % (Auto) [place] % (Auto) Lymph # Seg Neutrophils % Seg Neuts % (Manual) Lymphocytes % (Manual) Seg Neutrophils # Man Lymphocytes # (Manual) PT 19.4 H 17.4 H INR 1.59 H 1.38 H VBG pH Sodium Potassium Chloride Carbon Dioxide BUN Creatinine Glucose POC Glucose Lactic Acid Calcium Phosphorus Magnesium Total Bilirubin AST Total Protein Albumin Crossmatch See Detail 04/20/18 04/20/18 04/21/18 13:47 13:47 04:52 WBC RBC 3.29 L 3.10 L Hgb 9.6 L 8.8 L Hct 28.1 L D 26.6 L RDW 15.3 H 15.4 H Lymph % (Auto) 5.6 L [place] % (Auto) Lymph # 0.4 L Seg Neutrophils % 87.3 H Seg Neuts % (Manual) Lymphocytes % (Manual) Seg Neutrophils # Man Lymphocytes # (Manual) PT INR VBG pH Sodium Potassium Chloride Carbon Dioxide BUN Creatinine 0.3 L Glucose 102 H POC Glucose Lactic Acid Calcium 8.0 L Phosphorus Magnesium Total Bilirubin AST Total Protein Albumin Crossmatch 04/21/18 04/22/18 04/22/18 04:52 05:19 05:19 WBC RBC 3.64 L Hgb Hct RDW Lymph % (Auto) 8.5 L [place] % (Auto) 9.9 H Lymph # 0.6 L Seg Neutrophils % 81.0 H Seg Neuts % (Manual) Lymphocytes % (Manual) Seg Neutrophils # Man Lymphocytes # (Manual) PT 15.3 H INR 1.17 H VBG pH Sodium Potassium 3.2 L Chloride Carbon Dioxide BUN Creatinine 0.3 L Glucose POC Glucose Lactic Acid Calcium 7.6 L Phosphorus Magnesium Total Bilirubin AST Total Protein Albumin Crossmatch 04/22/18 04/24/18 04/24/18 05:19 07:19 07:19 WBC RBC Hgb Hct RDW Lymph % (Auto) [place] % (Auto) Lymph # Seg Neutrophils % Seg Neuts % (Manual) Lymphocytes % (Manual) Seg Neutrophils # Man Lymphocytes # (Manual) PT INR VBG pH Sodium Potassium 3.4 L 2.9 L* Chloride Carbon Dioxide BUN Creatinine 0.3 L 0.3 L Glucose 103 H POC Glucose Lactic Acid Calcium 7.7 L 7.5 L Phosphorus Magnesium 1.60 L Total Bilirubin AST Total Protein 4.3 L Albumin 2.2 L Crossmatch 04/24/18 04/25/18 04/25/18 07:23 06:28 06:28 WBC RBC Hgb Hct RDW 15.3 H 15.9 H Lymph % (Auto) 10.1 L [place] % (Auto) Lymph # 0.8 L Seg Neutrophils % 80.6 H Seg Neuts % (Manual) Lymphocytes % (Manual) 9.0 L Seg Neutrophils # Man Lymphocytes # (Manual) 0.7 L PT INR VBG pH Sodium Potassium 3.0 L Chloride Carbon Dioxide BUN 5 L Creatinine 0.2 L Glucose 108 H POC Glucose Lactic Acid Calcium 7.4 L Phosphorus Magnesium Total Bilirubin AST Total Protein 4.6 L Albumin 2.5 L Crossmatch 04/25/18 04/26/18 04/26/18 06:28 05:45 05:45 WBC 11.9 H RBC Hgb Hct RDW 16.2 H Lymph % (Auto) [place] % (Auto) Lymph # Seg Neutrophils % Seg Neuts % (Manual) Lymphocytes % (Manual) Seg Neutrophils # Man Lymphocytes # (Manual) PT INR VBG pH Sodium Potassium Chloride Carbon Dioxide BUN 5 L Creatinine 0.2 L Glucose 119 H POC Glucose Lactic Acid Calcium 7.7 L Phosphorus 2.00 L 2.20 L Magnesium Total Bilirubin AST Total Protein Albumin Crossmatch 04/27/18 04/28/18 04/28/18 05:33 06:00 06:00 WBC 11.2 H RBC Hgb Hct RDW 16.0 H Lymph % (Auto) [place] % (Auto) Lymph # Seg Neutrophils % Seg Neuts % (Manual) 92.0 H Lymphocytes % (Manual) 5.0 L Seg Neutrophils # Man 10.3 H Lymphocytes # (Manual) 0.6 L PT INR VBG pH Sodium Potassium 3.4 L 3.1 L Chloride Carbon Dioxide BUN 6 L 4 L Creatinine 0.2 L 0.2 L Glucose 119 H POC Glucose Lactic Acid Calcium 7.5 L 7.1 L Phosphorus 2.00 L 2.10 L Magnesium 1.50 L Total Bilirubin AST Total Protein 4.3 L Albumin 2.1 L Crossmatch 04/29/18 04/29/18 04/29/18 05:18 05:18 17:49 WBC 12.0 H RBC Hgb Hct RDW 16.0 H Lymph % (Auto) [place] % (Auto) Lymph # Seg Neutrophils % Seg Neuts % (Manual) 87.0 H Lymphocytes % (Manual) 10.0 L Seg Neutrophils # Man 10.4 H Lymphocytes # (Manual) PT INR VBG pH Sodium 135 L Potassium Chloride Carbon Dioxide BUN Creatinine 0.2 L Glucose 120 H POC Glucose 108 H Lactic Acid Calcium 7.5 L Phosphorus Magnesium Total Bilirubin AST Total Protein Albumin Crossmatch 04/30/18 04/30/18 04/30/18 00:03 05:18 05:41 WBC RBC Hgb Hct RDW Lymph % (Auto) [place] % (Auto) Lymph # Seg Neutrophils % Seg Neuts % (Manual) Lymphocytes % (Manual) Seg Neutrophils # Man Lymphocytes # (Manual) PT INR VBG pH Sodium 133 L Potassium Chloride Carbon Dioxide BUN Creatinine 0.2 L Glucose 119 H POC Glucose 112 H 110 H Lactic Acid Calcium 7.5 L Phosphorus Magnesium Total Bilirubin AST Total Protein Albumin Crossmatch 04/30/18 05/01/18 05/01/18 05:41 00:39 04:45 WBC RBC 3.60 L Hgb Hct RDW 16.0 H Lymph % (Auto) [place] % (Auto) Lymph # Seg Neutrophils % Seg Neuts % (Manual) 88.0 H Lymphocytes % (Manual) 8.0 L Seg Neutrophils # Man Lymphocytes # (Manual) 0.7 L PT INR VBG pH Sodium 132 L Potassium Chloride Carbon Dioxide BUN Creatinine 0.2 L Glucose 101 H POC Glucose 119 H Lactic Acid Calcium 7.6 L Phosphorus Magnesium Total Bilirubin AST Total Protein Albumin Crossmatch 05/01/18 05/01/18 05/01/18 06:30 16:09 23:42 WBC RBC Hgb Hct RDW Lymph % (Auto) [place] % (Auto) Lymph # Seg Neutrophils % Seg Neuts % (Manual) Lymphocytes % (Manual) Seg Neutrophils # Man Lymphocytes # (Manual) PT INR VBG pH Sodium Potassium Chloride Carbon Dioxide BUN Creatinine Glucose POC Glucose 126 H 160 H 113 H Lactic Acid Calcium Phosphorus Magnesium Total Bilirubin AST Total Protein Albumin Crossmatch 05/02/18 05/02/18 05/02/18 04:55 06:41 11:53 WBC RBC Hgb Hct RDW Lymph % (Auto) [place] % (Auto) Lymph # Seg Neutrophils % Seg Neuts % (Manual) Lymphocytes % (Manual) Seg Neutrophils # Man Lymphocytes # (Manual) PT INR VBG pH Sodium 134 L Potassium Chloride Carbon Dioxide BUN Creatinine 0.2 L Glucose 113 H POC Glucose 146 H 113 H Lactic Acid Calcium 7.4 L Phosphorus Magnesium Total Bilirubin AST Total Protein Albumin Crossmatch 05/02/18 05/02/18 05/03/18 17:33 23:37 08:46 WBC RBC 3.36 L Hgb 9.7 L Hct 28.7 L RDW 16.3 H Lymph % (Auto) [place] % (Auto) 10.0 H Lymph # Seg Neutrophils % Seg Neuts % (Manual) Lymphocytes % (Manual) Seg Neutrophils # Man Lymphocytes # (Manual) PT INR VBG pH Sodium Potassium Chloride Carbon Dioxide BUN Creatinine Glucose POC Glucose 106 H 123 H Lactic Acid Calcium Phosphorus Magnesium Total Bilirubin AST Total Protein Albumin Crossmatch 05/03/18 05/03/18 05/04/18 11:54 12:15 06:59 WBC RBC Hgb Hct RDW Lymph % (Auto) [place] % (Auto) Lymph # Seg Neutrophils % Seg Neuts % (Manual) Lymphocytes % (Manual) Seg Neutrophils # Man Lymphocytes # (Manual) PT INR VBG pH Sodium 136 L Potassium Chloride Carbon Dioxide BUN Creatinine 0.2 L Glucose 131 H POC Glucose 109 H 161 H Lactic Acid Calcium 7.6 L Phosphorus Magnesium Total Bilirubin AST Total Protein Albumin Crossmatch 05/04/18 05/04/18 05/04/18 07:03 08:02 11:10 WBC RBC 3.52 L Hgb Hct 29.8 L RDW 16.2 H Lymph % (Auto) [place] % (Auto) 8.6 H Lymph # Seg Neutrophils % Seg Neuts % (Manual) Lymphocytes % (Manual) Seg Neutrophils # Man Lymphocytes # (Manual) PT INR VBG pH Sodium 135 L Potassium Chloride Carbon Dioxide BUN Creatinine 0.2 L Glucose 160 H POC Glucose 106 H Lactic Acid Calcium 7.7 L Phosphorus Magnesium Total Bilirubin AST Total Protein Albumin Crossmatch 05/04/18 05/05/18 05/05/18 23:38 11:28 16:55 WBC RBC Hgb Hct RDW Lymph % (Auto) [place] % (Auto) Lymph # Seg Neutrophils % Seg Neuts % (Manual) Lymphocytes % (Manual) Seg Neutrophils # Man Lymphocytes # (Manual) PT INR VBG pH Sodium Potassium Chloride Carbon Dioxide BUN Creatinine Glucose POC Glucose 121 H 119 H 108 H Lactic Acid Calcium Phosphorus Magnesium Total Bilirubin AST Total Protein Albumin Crossmatch 05/05/18 05/06/18 05/06/18 Unknown 05:35 16:40 WBC RBC Hgb Hct RDW Lymph % (Auto) [place] % (Auto) Lymph # Seg Neutrophils % Seg Neuts % (Manual) Lymphocytes % (Manual) Seg Neutrophils # Man Lymphocytes # (Manual) PT INR VBG pH Sodium 135 L 136 L Potassium Chloride 97.9 L Carbon Dioxide BUN Creatinine 0.2 L 0.2 L Glucose 119 H POC Glucose 133 H Lactic Acid Calcium 8.0 L 8.1 L Phosphorus Magnesium Total Bilirubin AST 46 H Total Protein 5.5 L Albumin 2.7 L Crossmatch 05/06/18 05/07/18 05/07/18 22:07 05:38 05:40 WBC RBC Hgb Hct RDW Lymph % (Auto) [place] % (Auto) Lymph # Seg Neutrophils % Seg Neuts % (Manual) Lymphocytes % (Manual) Seg Neutrophils # Man Lymphocytes # (Manual) PT INR VBG pH Sodium 133 L Potassium Chloride Carbon Dioxide BUN Creatinine 0.2 L Glucose POC Glucose 168 H 107 H Lactic Acid Calcium 8.2 L Phosphorus Magnesium Total Bilirubin AST Total Protein Albumin Crossmatch 05/07/18 05/07/18 05/08/18 11:56 18:04 05:38 WBC RBC Hgb Hct RDW 16.3 H Lymph % (Auto) [place] % (Auto) 7.7 H Lymph # Seg Neutrophils % Seg Neuts % (Manual) Lymphocytes % (Manual) Seg Neutrophils # Man Lymphocytes # (Manual) PT INR VBG pH Sodium Potassium Chloride Carbon Dioxide BUN Creatinine Glucose POC Glucose 145 H 125 H Lactic Acid Calcium Phosphorus Magnesium Total Bilirubin AST Total Protein Albumin Crossmatch 05/08/18 05/08/18 05/08/18 05:38 11:35 16:23 WBC RBC Hgb Hct RDW Lymph % (Auto) [place] % (Auto) Lymph # Seg Neutrophils % Seg Neuts % (Manual) Lymphocytes % (Manual) Seg Neutrophils # Man Lymphocytes # (Manual) PT INR VBG pH Sodium 135 L Potassium Chloride Carbon Dioxide BUN Creatinine 0.2 L Glucose POC Glucose 118 H 131 H Lactic Acid Calcium Phosphorus Magnesium Total Bilirubin AST Total Protein Albumin Crossmatch 05/08/18 05/09/18 05/09/18 21:40 05:46 06:15 WBC RBC Hgb Hct RDW Lymph % (Auto) [place] % (Auto) Lymph # Seg Neutrophils % Seg Neuts % (Manual) Lymphocytes % (Manual) Seg Neutrophils # Man Lymphocytes # (Manual) PT INR VBG pH Sodium 135 L Potassium Chloride 97.5 L Carbon Dioxide BUN Creatinine 0.2 L Glucose POC Glucose 110 H 115 H Lactic Acid Calcium Phosphorus Magnesium Total Bilirubin AST Total Protein Albumin Crossmatch Allied health notes reviewed: nursing
[2018-05-09] MEDS: NEURONTIN PO SCH ×3 (09:46→20:02)
[2018-05-09] MEDS: COZAAR PO SCH (09:46)
[2018-05-09] MEDS: PEPCID IV SCH ×2 (09:47→22:43)
--- NOTE | 2018-05-09 11:12 | Consultation ---
Addendum entered and electronically signed by AFRICA CERVANTES NP 05/10/18 07:12: Late Entry for 05/09/2018: Per Dr Godwin, the patient can take PO medications. Original Note: History of Present Illness - Reason for Consult Consult date: 05/09/18 Reason for consult: Mental Health Evaluation Requesting physician: ANA PAULA GODWIN - Chief Complaint Chief complaint: "I want to get better" - History of Present Psychiatric Illness 57-year-old white female who presented to the ER for right flank and right lower quadrant pain. Psychiatry was consulted to see the patient for depression. Today the patient is calm and cooperative during the assessment. She stated that her pain is unbearable sometimes. She stated that she look forward to being discharged soon. She stated that she has a hx of depression/anxiety and took an antidepressant in the past. She stated that her anxiety was dx after her in 2007. She stated that she haven't seen a psychiatrist because she cannot afford it. She rate her anxiety/depression 6/10, with 10 being the worse. She stated that she is willing follow up with a psychiatrist when discharged. She denies SI/HI's and AVH's. She acknowledged erratic sleep. She denies recreational drug use and alcohol consumption (etoh). Medications and Allergies Allergies Allergy/AdvReac Type Severity Reaction Status Date / Time NSAIDS (Non-Steroidal Allergy Unknown Verified 04/08/18 03:20 Anti-Inflamma Home Medications Medication Instructions Recorded Confirmed Last Taken Type Citalopram Hydrobromide 40 mg PO QDAY 07/31/17 04/19/18 04/15/18 History [Citalopram HBr] Gabapentin [Neurontin] 800 mg PO 5XD 07/31/17 04/19/18 04/15/18 History Losartan 50 mg PO QDAY 07/31/17 04/19/18 04/15/18 History Tizanidine HCl [Zanaflex] 2 mg PO QDAY 07/31/17 04/19/18 04/15/18 History busPIRone [Buspar] 5 mg PO BID 07/31/17 04/19/18 04/15/18 History Ciprofloxacin HCl [Ciprofloxacin 500 mg PO Q12HR #10 tab 08/01/17 04/19/18 04/15/18 Rx TAB] Active Meds: Active Medications Acetaminophen/Hydrocodone Bitart ([place] 5/325) 1 each PO Q4H PRN PRN Reason: Pain, Moderate (4-6) Last Admin: 05/08/18 11:52 Dose: 1 each Documented by: Albuterol (Proventil) 2.5 mg IH Q3HRT PRN PRN Reason: Shortness Of Breath Last Admin: 05/03/18 15:15 Dose: 2.5 mg Documented by: Albuterol (Proventil) 2.5 mg IH TIDRT [facility] Last Admin: 05/08/18 20:06 Dose: 2.5 mg Documented by: Alprazolam (Xanax) 0.5 mg PO Q8H PRN PRN Reason: Anxiety Last Admin: 05/09/18 06:15 Dose: 0.5 mg Documented by: Benzocaine/Menthol (Cepacol X Strength) 1 each MM Q2HR PRN PRN Reason: Sore Throat Famotidine (Pepcid) 20 mg IV BID [facility] Last Admin: 05/09/18 09:47 Dose: 20 mg Documented by: Gabapentin (Neurontin) 800 mg PO TID [facility] Last Admin: 05/09/18 09:46 Dose: 800 mg Documented by: Hydralazine HCl (Apresoline) 10 mg IV Q4HR PRN PRN Reason: SBP >160 Last Admin: 05/07/18 05:50 Dose: 10 mg Documented by: Hydromorphone HCl (Dilaudid) 1 mg IV Q3H PRN PRN Reason: Pain , Severe (7-10) Last Admin: 05/09/18 09:47 Dose: 1 mg Documented by: Amino Acids/Electrolytes/Dextrose (Tpn Adult) 1,800 mls @ 75 mls/hr IV DAILY@1999 [facility]; Protocol Stop: 05/09/18 19:59 Last Admin: 05/08/18 21:31 Dose: 75 mls/hr Documented by: Labetalol HCl (Normodyne) 10 mg IV Q6H PRN PRN Reason: systolic BP greater than 175 Losartan Potassium (Cozaar) 100 mg PO QDAY [facility] Last Admin: 05/09/18 09:46 Dose: 100 mg Documented by: Octreotide Acetate (Sandostatin) 100 mcg SUB-Q Q8HR [facility] Last Admin: 05/09/18 06:07 Dose: 100 mcg Documented by: Ondansetron HCl (Zofran) 4 mg IV Q4H PRN PRN Reason: N/V unrelieved by Brock Last Admin: 05/07/18 03:11 Dose: 4 mg Documented by: Past psychiatric history - Past Medical History Past Medical History: COPD, hypertension, other (Liver Disease) Past Surgical History: Other (Partial Hysterectomy) - past Psychiatric treatment and history psychiatric treatment history: Hx of depression. Denies a fam psy hx. - Social History Social history: lives with family Mental Status Exam - Vital signs Last Vital Signs Temp 98.2 F 05/09/18 07:16 Pulse 112 H 05/09/18 07:17 Resp 20 05/09/18 09:47 BP 133/74 05/09/18 07:16 Pulse Ox 97 05/09/18 07:17 - Exam Narrative exam: MSE: Appearance: calm, cooperative Behavior: regular eye contact Speech: regular rate and loud tone Mood: "a little sad" Affect: flat Thought Process: linear Thought Content: denies SI/HI's and AVH's Motor Activity: sitting up in the bed Cognition: A/O x3 Insight: appropriate Judgment: appropriate Results Result Diagrams: 05/08/18 05:38 05/09/18 06:15 Abnormal lab results 05/08/18 05/08/18 05/08/18 Range/Units 11:35 16:23 21:40 Sodium (137-145) mmol/L Chloride (98-107) mmol/L Creatinine (0.7-1.2) mg/dL POC Glucose 118 H 131 H 110 H (70-105) 05/09/18 05/09/18 Range/Units 05:46 06:15 Sodium 135 L (137-145) mmol/L Chloride 97.5 L (98-107) mmol/L Creatinine 0.2 L (0.7-1.2) mg/dL POC Glucose 115 H (70-105) All other labs normal. Assessment and Plan Assessment and plan: Impression: MDD. Unspecified Anxiety DO. Insomnia. Today the patient is calm and cooperative during the assessment. DDx: R/O Somatic Symptom DO Recommendation/Plan: Start Remeron 15 mg PO HS for depression/anxiety and Benadryl 25 mg PO HS for sleep. Discussed possible suicidality/medication induced clau with the patient reference Remeron. Will follow up with the patient in 24 hours. Dispo: The patient will be given a referral for outpatient psy services prior to her discharge. Staffed with Dr Cho
[2018-05-09] MEDS: NORCO 5/325 PO PRN ×2 (11:40→18:56)
--- NOTE | 2018-05-09 12:00 | Progress Note ---
Assessment and Plan Pt status quo. no specific compl. psych eval appreciated. Sump 300 cc/24 hrs Abd soft, non tender stable started on sandostatin continue present care LLL consolidation as per pulm Selected Entries 05/08/18 05/09/18 05/09/18 11:24 07:16 07:17 Temperature 97.8 F 98.2 F Pulse Rate 107 H 112 H Respiratory 16 Rate O2 Sat by Pulse 95 Oximetry Blood Pressure 133/74 05/09/18 11:40 Temperature Pulse Rate Respiratory 20 Rate O2 Sat by Pulse Oximetry Blood Pressure Laboratory Tests 05/09/18 06:15 Sodium 135 L Potassium 4.4 Chloride 97.5 L Carbon Dioxide 27 BUN 13 Creatinine 0.2 L Objective Vital Signs - 12hr 05/09/18 05/09/18 05/09/18 03:15 04:46 07:16 Temperature 97.9 F 98.2 F Pulse Rate 121 H 113 H Respiratory 18 16 18 Rate Blood Pressure 149/82 133/74 O2 Sat by Pulse 95 96 Oximetry 05/09/18 05/09/18 05/09/18 07:17 09:47 11:40 Temperature Pulse Rate 112 H Respiratory 20 20 Rate Blood Pressure O2 Sat by Pulse 97 Oximetry - Labs 05/08/18 05:38 05/09/18 06:15 Diabetes panel 05/09/18 Range/Units 06:15 Sodium 135 L (137-145) mmol/L Potassium 4.4 (3.6-5.0) mmol/L Chloride 97.5 L (98-107) mmol/L Carbon Dioxide 27 (22-30) mmol/L BUN 13 (7-17) mg/dL Creatinine 0.2 L (0.7-1.2) mg/dL Glucose 100 (65-100) mg/dL Calcium 8.5 (8.4-10.2) mg/dL Calcium panel 05/09/18 Range/Units 06:15 Calcium 8.5 (8.4-10.2) mg/dL Phosphorus 3.90 (2.5-4.5) mg/dL Pituitary panel 05/09/18 Range/Units 06:15 Sodium 135 L (137-145) mmol/L Potassium 4.4 (3.6-5.0) mmol/L Chloride 97.5 L (98-107) mmol/L Carbon Dioxide 27 (22-30) mmol/L BUN 13 (7-17) mg/dL Creatinine 0.2 L (0.7-1.2) mg/dL Glucose 100 (65-100) mg/dL Calcium 8.5 (8.4-10.2) mg/dL Adrenal panel 05/09/18 Range/Units 06:15 Sodium 135 L (137-145) mmol/L Potassium 4.4 (3.6-5.0) mmol/L Chloride 97.5 L (98-107) mmol/L Carbon Dioxide 27 (22-30) mmol/L BUN 13 (7-17) mg/dL Creatinine 0.2 L (0.7-1.2) mg/dL Glucose 100 (65-100) mg/dL Calcium 8.5 (8.4-10.2) mg/dL
[2018-05-09] MEDS: PROVENTIL IH SCH ×3 (13:37→20:58)
[2018-05-09] MEDS ORDERED: NORVASC PO ONE (14:00)
--- NOTE | 2018-05-09 17:43 | Progress Note ---
Assessment and Plan - Patient Problems (1) Appendicitis with perforation Current Visit: Yes Status: Acute Plan to address problem: Patient with ruptured appendix pain very well controlled. Continue TPN IV antibiotics (2) Appendicitis with peritoneal abscess Current Visit: Yes Status: Acute (3) Sepsis Current Visit: Yes Status: Acute Qualifiers: Sepsis type: Escherichia coli Qualified Code(s): A41.51 - Sepsis due to Escherichia coli [E. coli] Plan to address problem: Sepsis secondary to gangrene and perforated viscus. Continue IV antibiotics patient status post awaiting LTAC placement was surgically cleared. History Interval history: At present patient pain medications are very effective. She has no new concerns. Hospitalist Physical - Constitutional Vitals: Temp Pulse Resp BP Pulse Ox 97.9 F 105 H 18 140/86 96 05/09/18 17:25 05/09/18 17:25 05/09/18 17:25 05/09/18 17:25 05/09/18 17:26 General appearance: Present: no acute distress, cachectic, other (temporal wasting scaphoid abdomen.) - EENT Eyes: Present: PERRL, EOM intact ENT: hearing intact, clear oral mucosa, poor dentition - Neck Neck: Present: supple, normal ROM - Respiratory Respiratory: bilateral: CTA, diminished - Cardiovascular Rhythm: regular - Abdominal General gastrointestinal: soft, tender - Integumentary Integumentary: Present: clear, warm, dry - Psychiatric Psychiatric: appropriate mood/affect, intact judgment & insight, memory intact - Neurologic Neurologic: CNII-XII intact, moves all extremities Results - Labs CBC & Chem 7: 05/08/18 05:38 05/09/18 06:15 Labs: Laboratory Last Values WBC 4.9 K/mm3 (4.5-11.0) 05/08/18 05:38 RBC 3.82 M/mm3 (3.65-5.03) 05/08/18 05:38 Hgb 10.7 gm/dl (10.1-14.3) 05/08/18 05:38 Hct 32.3 % (30.3-42.9) 05/08/18 05:38 MCV 85 fl (79-97) 05/08/18 05:38 MCH 28 pg (28-32) 05/08/18 05:38 MCHC 33 % (30-34) 05/08/18 05:38 RDW 16.3 % (13.2-15.2) H 05/08/18 05:38 Plt Count 156 K/mm3 (140-440) 05/08/18 05:38 Lymph % (Auto) 29.1 % (13.4-35.0) 05/08/18 05:38 [place] % (Auto) 7.7 % (0.0-7.3) H 05/08/18 05:38 Eos % (Auto) 3.2 % (0.0-4.3) 05/08/18 05:38 Baso % (Auto) 1.1 % (0.0-1.8) 05/08/18 05:38 Lymph # 1.4 K/mm3 (1.2-5.4) 05/08/18 05:38 [place] # 0.4 K/mm3 (0.0-0.8) 05/08/18 05:38 Eos # 0.2 K/mm3 (0.0-0.4) 05/08/18 05:38 Baso # 0.1 K/mm3 (0.0-0.1) 05/08/18 05:38 Add Manual Diff Complete 04/30/18 05:41 Total Counted 100 04/30/18 05:41 Seg Neutrophils % 58.9 % (40.0-70.0) 05/08/18 05:38 Seg Neuts % (Manual) 88.0 % (40.0-70.0) H 04/30/18 05:41 Band Neutrophils % 1.0 % 04/30/18 05:41 Lymphocytes % (Manual) 8.0 % (13.4-35.0) L 04/30/18 05:41 Reactive Lymphs % (Man) 0 % 04/30/18 05:41 Monocytes % (Manual) 3.0 % (0.0-7.3) 04/30/18 05:41 Eosinophils % (Manual) 0 % (0.0-4.3) 04/30/18 05:41 Basophils % (Manual) 0 % (0.0-1.8) 04/30/18 05:41 Metamyelocytes % 0 % 04/30/18 05:41 Myelocytes % 0 % 04/30/18 05:41 Promyelocytes % 0 % 04/30/18 05:41 Blast Cells % 0 % 04/30/18 05:41 Nucleated RBC % Not Reportable 04/30/18 05:41 Seg Neutrophils # 2.9 K/mm3 (1.8-7.7) 05/08/18 05:38 Seg Neutrophils # Man 7.7 K/mm3 (1.8-7.7) 04/30/18 05:41 Band Neutrophils # 0.1 K/mm3 04/30/18 05:41 Lymphocytes # (Manual) 0.7 K/mm3 (1.2-5.4) L 04/30/18 05:41 Abs React Lymphs (Man) 0.0 K/mm3 04/30/18 05:41 Monocytes # (Manual) 0.3 K/mm3 (0.0-0.8) 04/30/18 05:41 Eosinophils # (Manual) 0.0 K/mm3 (0.0-0.4) 04/30/18 05:41 Basophils # (Manual) 0.0 K/mm3 (0.0-0.1) 04/30/18 05:41 Metamyelocytes # 0.0 K/mm3 04/30/18 05:41 Myelocytes # 0.0 K/mm3 04/30/18 05:41 Promyelocytes # 0.0 K/mm3 04/30/18 05:41 Blast Cells # 0.0 K/mm3 04/30/18 05:41 WBC Morphology Not Reportable 04/30/18 05:41 Hypersegmented Neuts Not Reportable 04/30/18 05:41 Hyposegmented Neuts Not Reportable 04/30/18 05:41 Hypogranular Neuts Not Reportable 04/30/18 05:41 Smudge Cells Not Reportable 04/30/18 05:41 Toxic Granulation Not Reportable 04/30/18 05:41 Toxic Vacuolation Not Reportable 04/30/18 05:41 Dohle Bodies Not Reportable 04/30/18 05:41 Pelger-Huet Anomaly Not Reportable 04/30/18 05:41 Nicole Rods Not Reportable 04/30/18 05:41 Platelet Estimate Appears normal 04/30/18 05:41 Clumped Platelets Not Reportable 04/30/18 05:41 Plt Clumps, EDTA Not Reportable 04/30/18 05:41 Large Platelets Not Reportable 04/30/18 05:41 Giant Platelets Not Reportable 04/30/18 05:41 Platelet Satelliting Not Reportable 04/30/18 05:41 Plt Morphology Comment Not Reportable 04/30/18 05:41 RBC Morphology Not Reportable 04/30/18 05:41 Dimorphic RBCs Not Reportable 04/30/18 05:41 Polychromasia Not Reportable 04/30/18 05:41 Hypochromasia 1+ 04/30/18 05:41 Poikilocytosis Not Reportable 04/30/18 05:41 Anisocytosis 1+ 04/30/18 05:41 Microcytosis Not Reportable 04/30/18 05:41 Macrocytosis Not Reportable 04/30/18 05:41 Spherocytes Not Reportable 04/30/18 05:41 Pappenheimer Bodies Not Reportable 04/30/18 05:41 Sickle Cells Not Reportable 04/30/18 05:41 Target Cells Not Reportable 04/30/18 05:41 Tear Drop Cells Not Reportable 04/30/18 05:41 Ovalocytes Few 04/30/18 05:41 Stomatocytes Few 04/29/18 05:18 Helmet Cells Not Reportable 04/30/18 05:41 Spann-[place] Bodies Not Reportable 04/30/18 05:41 [place] Rings Not Reportable 04/30/18 05:41 [place] Cells Not Reportable 04/30/18 05:41 Bite Cells Not Reportable 04/30/18 05:41 Crenated Cell Not Reportable 04/30/18 05:41 Elliptocytes Not Reportable 04/30/18 05:41 Acanthocytes (Spur) Not Reportable 04/30/18 05:41 Rouleaux Not Reportable 04/30/18 05:41 Hemoglobin C Crystals Not Reportable 04/30/18 05:41 Schistocytes Not Reportable 04/30/18 05:41 Malaria parasites Not Reportable 04/30/18 05:41 Hung Bodies Not Reportable 04/30/18 05:41 Hem Pathologist Commnt No 04/30/18 05:41 PT 15.3 Sec. (12.2-14.9) H 04/22/18 05:19 INR 1.17 (0.87-1.13) H 04/22/18 05:19 APTT 29.4 Sec. (24.2-36.6) 04/19/18 05:19 POC ABG pH 7.367 (7.35-7.45) 04/19/18 00:19 POC ABG pCO2 36.8 (35-45) 04/19/18 00:19 POC ABG pO2 84 (80-105) 04/19/18 00:19 POC ABG HCO3 21.1 04/19/18 00:19 POC ABG Total CO2 22 04/19/18 00:19 POC ABG O2 Sat 96 04/19/18 00:19 POC ABG Base Excess -4 04/19/18 00:19 VBG pH 7.439 (7.320-7.420) H 04/18/18 14:30 FiO2 32 % 04/19/18 00:19 Sodium 135 mmol/L (137-145) L 05/09/18 06:15 Potassium 4.4 mmol/L (3.6-5.0) 05/09/18 06:15 Chloride 97.5 mmol/L (98-107) L 05/09/18 06:15 Carbon Dioxide 27 mmol/L (22-30) 05/09/18 06:15 Anion Gap 15 mmol/L 05/09/18 06:15 BUN 13 mg/dL (7-17) 05/09/18 06:15 Creatinine 0.2 mg/dL (0.7-1.2) L 05/09/18 06:15 Estimated GFR > 60 ml/min 05/09/18 06:15 BUN/Creatinine Ratio 65 % 05/09/18 06:15 Glucose 100 mg/dL (65-100) 05/09/18 06:15 POC Glucose 145 (70-105) H 05/09/18 11:28 Lactic Acid 0.90 mmol/L (0.7-2.0) 04/18/18 18:41 Calcium 8.5 mg/dL (8.4-10.2) 05/09/18 06:15 Phosphorus 3.90 mg/dL (2.5-4.5) 05/09/18 06:15 Magnesium 2.00 mg/dL (1.7-2.3) 05/09/18 06:15 Total Bilirubin 0.30 mg/dL (0.1-1.2) 05/05/18 Unknown AST 46 units/L (5-40) H 05/05/18 Unknown ALT 35 units/L (7-56) 05/05/18 Unknown Alkaline Phosphatase 110 units/L (35-129) 05/05/18 Unknown Total Protein 5.5 g/dL (6.3-8.2) L 05/05/18 Unknown Albumin 2.7 g/dL (3.9-5) L 05/05/18 Unknown Albumin/Globulin Ratio 1.0 % 05/05/18 Unknown Triglycerides 105 mg/dL (2-149) 05/06/18 05:35 Urine Color Yellow (Yellow) 04/20/18 13:35 Urine Turbidity Clear (Clear) 04/20/18 13:35 Urine pH 5.0 (5.0-7.0) 04/20/18 13:35 Ur Specific [place] 1.011 (1.003-1.030) 04/20/18 13:35 Urine Protein <15 mg/dl mg/dL (Negative) 04/20/18 13:35 Urine Glucose (UA) Neg mg/dL (Negative) 04/20/18 13:35 Urine Ketones 20 mg/dL (Negative) 04/20/18 13:35 Urine Blood Sm (Negative) 04/20/18 13:35 Urine Nitrite Neg (Negative) 04/20/18 13:35 Urine Bilirubin Neg (Negative) 04/20/18 13:35 Urine Urobilinogen 2.0 mg/dL (<2.0) 04/20/18 13:35 Ur Leukocyte Esterase Tr (Negative) 04/20/18 13:35 Urine WBC (Auto) 2.0 /HPF (0.0-6.0) 04/20/18 13:35 Urine RBC (Auto) 1.0 /HPF (0.0-6.0) 04/20/18 13:35 U Epithel Cells (Auto) 2.0 /HPF (0-13.0) 04/18/18 16:45 Urine Bacteria (Auto) 2+ /HPF (Negative) 04/18/18 16:45 Urine Mucus Few /HPF 04/20/18 13:35 Blood Type O POSITIVE 04/19/18 13:05 Antibody Screen Negative 04/19/18 13:05 Crossmatch See Detail 04/19/18 13:05 Nutrition/Malnutrition Assess - Dietary Evaluation Nutrition/Malnutrition Findings: Nutrition Notes Start: 04/24/18 09:13 Freq: Status: Active Protocol: Document 05/09/18 09:53 LP (Rec: 05/09/18 09:54 LP [id number]) Nutrition Notes Initial or Follow up Reassessment Current Diagnosis COPD Sepsis Hypertension Other Pertinent Diagnosis Perforated appendix s/p exp lap, Hep C Current Diet TPN at 75ml/hr Labs/Tests Reviewed Pertinent Medications Reviewed Height 5 ft 1 in Weight 42.1 kg [place] Body Weight (kg) 47.72 BMI 17.5 Weight change and time frame Current wt obtained from bedscale 15.6% wt loss X 2 weeks Subjective/Other Information Day 13 TPN. Percent of energy/protein needs met: 100%/100% Burn Absent Trauma Absent #2 Nutrition Diagnosis Increased nutrient needs ( specify in comment below) Diagnosis Progress(for reassessment Continues documentation) #1 Nutrition Diagnosis Inadequate oral intake Diagnosis Progress(for reassessment Continues documentation) Is patient on ventilator? No Is Patient Ambulatory and/or Out of Bed Yes REE-([place]-St. Jeor-ambulatory/OOB) [ 1232.894 NUTR.MSJOOB] Calculation Used for Recommendations [place]-St Jeor Additional Notes Pro needs 1.25-1.5g/k-70g /day Fluid needs 1ml/kcal Nutrition Intervention Change Diet Order: TPN Nutrition Support: Continue TPN at 75 ml/hr: MVI Kcal 1,230 Protein (gm) 95 Carbohydrates (gm) 250 Fat (gm) 0 Fluid (mL) 1,800 Goal #1 CPN to meet 90-100% energy and pro needs Goal #2 Wt maintenance Anticipated Discharge Needs: Unable to determine at this time Follow-Up By: 05/10/18 Additional Comments No labs
[2018-05-09] MEDS ORDERED: TPN ADULT 1,800 ML IV SCH (20:00)
[2018-05-09] MEDS: REMERON PO SCH (22:43)
[2018-05-10] MEDS: DILAUDID IV PRN ×5 (02:44→19:55)
[2018-05-10] MEDS: ZOFRAN IV PRN (04:58)
[2018-05-10] MEDS: NORCO 5/325 PO PRN ×3 (04:59→23:41)
[2018-05-10] MEDS: PROVENTIL IH SCH ×3 (08:30→19:40)
[2018-05-10] MEDS: XANAX PO PRN ×2 (09:21→16:33)
[2018-05-10] MEDS: NEURONTIN PO SCH ×3 (09:21→19:54)
[2018-05-10] MEDS: COZAAR PO SCH (09:22)
[2018-05-10] MEDS: PEPCID IV SCH ×2 (09:22→21:22)
--- NOTE | 2018-05-10 11:12 | Progress Note ---
Assessment and Plan - Patient Problems (1) Appendicitis with perforation Current Visit: Yes Status: Acute Plan to address problem: Patient Intra-abdominal perforation with abscess status post exploratory lap and surgical correction. Continue TPN IV antibiotics (2) Appendicitis with peritoneal abscess Current Visit: Yes Status: Acute (3) Sepsis Current Visit: Yes Status: Acute Qualifiers: Sepsis type: Escherichia coli Qualified Code(s): A41.51 - Sepsis due to Escherichia coli [E. coli] Plan to address problem: Patient remains afebrile. No leukocytosis. Clinically improving. Sepsis resolving with current IV antibiotics. Medically stable for L TACH transfer tomorrow History Interval history: Patient was able to tolerate meal today. Abdominal pain is also well-controlled. Surgical scar bandaged Hospitalist Physical - Constitutional Vitals: Temp Pulse Resp BP Pulse Ox 97.7 F 113 H 18 127/72 95 05/10/18 07:00 05/10/18 09:22 05/10/18 08:40 05/10/18 09:22 05/10/18 08:30 General appearance: Present: no acute distress, cachectic, other (temporal wasting scaphoid abdomen.) - EENT Eyes: Present: PERRL, EOM intact ENT: hearing intact, clear oral mucosa, dentition normal, poor dentition - Neck Neck: Present: supple, normal ROM - Respiratory Respiratory effort: normal Respiratory: bilateral: diminished (Otherwise clear) - Cardiovascular Rhythm: regular - Extremities Extremities: no ischemia, pulses intact, pulses symmetrical, No edema, normal temperature, normal color Peripheral Pulses: abnormal - Abdominal General gastrointestinal: soft, tender, hypoactive bowel sounds - Integumentary Integumentary: Present: clear, warm, dry - Psychiatric Psychiatric: appropriate mood/affect, intact judgment & insight - Neurologic Neurologic: CNII-XII intact Results - Labs CBC & Chem 7: 05/08/18 05:38 05/09/18 06:15 Labs: Laboratory Last Values WBC 4.9 K/mm3 (4.5-11.0) 05/08/18 05:38 RBC 3.82 M/mm3 (3.65-5.03) 05/08/18 05:38 Hgb 10.7 gm/dl (10.1-14.3) 05/08/18 05:38 Hct 32.3 % (30.3-42.9) 05/08/18 05:38 MCV 85 fl (79-97) 05/08/18 05:38 MCH 28 pg (28-32) 05/08/18 05:38 MCHC 33 % (30-34) 05/08/18 05:38 RDW 16.3 % (13.2-15.2) H 05/08/18 05:38 Plt Count 156 K/mm3 (140-440) 05/08/18 05:38 Lymph % (Auto) 29.1 % (13.4-35.0) 05/08/18 05:38 [place] % (Auto) 7.7 % (0.0-7.3) H 05/08/18 05:38 Eos % (Auto) 3.2 % (0.0-4.3) 05/08/18 05:38 Baso % (Auto) 1.1 % (0.0-1.8) 05/08/18 05:38 Lymph # 1.4 K/mm3 (1.2-5.4) 05/08/18 05:38 [place] # 0.4 K/mm3 (0.0-0.8) 05/08/18 05:38 Eos # 0.2 K/mm3 (0.0-0.4) 05/08/18 05:38 Baso # 0.1 K/mm3 (0.0-0.1) 05/08/18 05:38 Add Manual Diff Complete 04/30/18 05:41 Total Counted 100 04/30/18 05:41 Seg Neutrophils % 58.9 % (40.0-70.0) 05/08/18 05:38 Seg Neuts % (Manual) 88.0 % (40.0-70.0) H 04/30/18 05:41 Band Neutrophils % 1.0 % 04/30/18 05:41 Lymphocytes % (Manual) 8.0 % (13.4-35.0) L 04/30/18 05:41 Reactive Lymphs % (Man) 0 % 04/30/18 05:41 Monocytes % (Manual) 3.0 % (0.0-7.3) 04/30/18 05:41 Eosinophils % (Manual) 0 % (0.0-4.3) 04/30/18 05:41 Basophils % (Manual) 0 % (0.0-1.8) 04/30/18 05:41 Metamyelocytes % 0 % 04/30/18 05:41 Myelocytes % 0 % 04/30/18 05:41 Promyelocytes % 0 % 04/30/18 05:41 Blast Cells % 0 % 04/30/18 05:41 Nucleated RBC % Not Reportable 04/30/18 05:41 Seg Neutrophils # 2.9 K/mm3 (1.8-7.7) 05/08/18 05:38 Seg Neutrophils # Man 7.7 K/mm3 (1.8-7.7) 04/30/18 05:41 Band Neutrophils # 0.1 K/mm3 04/30/18 05:41 Lymphocytes # (Manual) 0.7 K/mm3 (1.2-5.4) L 04/30/18 05:41 Abs React Lymphs (Man) 0.0 K/mm3 04/30/18 05:41 Monocytes # (Manual) 0.3 K/mm3 (0.0-0.8) 04/30/18 05:41 Eosinophils # (Manual) 0.0 K/mm3 (0.0-0.4) 04/30/18 05:41 Basophils # (Manual) 0.0 K/mm3 (0.0-0.1) 04/30/18 05:41 Metamyelocytes # 0.0 K/mm3 04/30/18 05:41 Myelocytes # 0.0 K/mm3 04/30/18 05:41 Promyelocytes # 0.0 K/mm3 04/30/18 05:41 Blast Cells # 0.0 K/mm3 04/30/18 05:41 WBC Morphology Not Reportable 04/30/18 05:41 Hypersegmented Neuts Not Reportable 04/30/18 05:41 Hyposegmented Neuts Not Reportable 04/30/18 05:41 Hypogranular Neuts Not Reportable 04/30/18 05:41 Smudge Cells Not Reportable 04/30/18 05:41 Toxic Granulation Not Reportable 04/30/18 05:41 Toxic Vacuolation Not Reportable 04/30/18 05:41 Dohle Bodies Not Reportable 04/30/18 05:41 Pelger-Huet Anomaly Not Reportable 04/30/18 05:41 Nicole Rods Not Reportable 04/30/18 05:41 Platelet Estimate Appears normal 04/30/18 05:41 Clumped Platelets Not Reportable 04/30/18 05:41 Plt Clumps, EDTA Not Reportable 04/30/18 05:41 Large Platelets Not Reportable 04/30/18 05:41 Giant Platelets Not Reportable 04/30/18 05:41 Platelet Satelliting Not Reportable 04/30/18 05:41 Plt Morphology Comment Not Reportable 04/30/18 05:41 RBC Morphology Not Reportable 04/30/18 05:41 Dimorphic RBCs Not Reportable 04/30/18 05:41 Polychromasia Not Reportable 04/30/18 05:41 Hypochromasia 1+ 04/30/18 05:41 Poikilocytosis Not Reportable 04/30/18 05:41 Anisocytosis 1+ 04/30/18 05:41 Microcytosis Not Reportable 04/30/18 05:41 Macrocytosis Not Reportable 04/30/18 05:41 Spherocytes Not Reportable 04/30/18 05:41 Pappenheimer Bodies Not Reportable 04/30/18 05:41 Sickle Cells Not Reportable 04/30/18 05:41 Target Cells Not Reportable 04/30/18 05:41 Tear Drop Cells Not Reportable 04/30/18 05:41 Ovalocytes Few 04/30/18 05:41 Stomatocytes Few 04/29/18 05:18 Helmet Cells Not Reportable 04/30/18 05:41 Spann-[place] Bodies Not Reportable 04/30/18 05:41 [place] Rings Not Reportable 04/30/18 05:41 [place] Cells Not Reportable 04/30/18 05:41 Bite Cells Not Reportable 04/30/18 05:41 Crenated Cell Not Reportable 04/30/18 05:41 Elliptocytes Not Reportable 04/30/18 05:41 Acanthocytes (Spur) Not Reportable 04/30/18 05:41 Rouleaux Not Reportable 04/30/18 05:41 Hemoglobin C Crystals Not Reportable 04/30/18 05:41 Schistocytes Not Reportable 04/30/18 05:41 Malaria parasites Not Reportable 04/30/18 05:41 Hung Bodies Not Reportable 04/30/18 05:41 Hem Pathologist Commnt No 04/30/18 05:41 PT 15.3 Sec. (12.2-14.9) H 04/22/18 05:19 INR 1.17 (0.87-1.13) H 04/22/18 05:19 APTT 29.4 Sec. (24.2-36.6) 04/19/18 05:19 POC ABG pH 7.367 (7.35-7.45) 04/19/18 00:19 POC ABG pCO2 36.8 (35-45) 04/19/18 00:19 POC ABG pO2 84 (80-105) 04/19/18 00:19 POC ABG HCO3 21.1 04/19/18 00:19 POC ABG Total CO2 22 04/19/18 00:19 POC ABG O2 Sat 96 04/19/18 00:19 POC ABG Base Excess -4 04/19/18 00:19 VBG pH 7.439 (7.320-7.420) H 04/18/18 14:30 FiO2 32 % 04/19/18 00:19 Sodium 135 mmol/L (137-145) L 05/09/18 06:15 Potassium 4.4 mmol/L (3.6-5.0) 05/09/18 06:15 Chloride 97.5 mmol/L (98-107) L 05/09/18 06:15 Carbon Dioxide 27 mmol/L (22-30) 05/09/18 06:15 Anion Gap 15 mmol/L 05/09/18 06:15 BUN 13 mg/dL (7-17) 05/09/18 06:15 Creatinine 0.2 mg/dL (0.7-1.2) L 05/09/18 06:15 Estimated GFR > 60 ml/min 05/09/18 06:15 BUN/Creatinine Ratio 65 % 05/09/18 06:15 Glucose 100 mg/dL (65-100) 05/09/18 06:15 POC Glucose 149 (70-105) H 05/10/18 06:22 Lactic Acid 0.90 mmol/L (0.7-2.0) 04/18/18 18:41 Calcium 8.5 mg/dL (8.4-10.2) 05/09/18 06:15 Phosphorus 3.90 mg/dL (2.5-4.5) 05/09/18 06:15 Magnesium 2.00 mg/dL (1.7-2.3) 05/09/18 06:15 Total Bilirubin 0.30 mg/dL (0.1-1.2) 05/05/18 Unknown AST 46 units/L (5-40) H 05/05/18 Unknown ALT 35 units/L (7-56) 05/05/18 Unknown Alkaline Phosphatase 110 units/L (35-129) 05/05/18 Unknown Total Protein 5.5 g/dL (6.3-8.2) L 05/05/18 Unknown Albumin 2.7 g/dL (3.9-5) L 05/05/18 Unknown Albumin/Globulin Ratio 1.0 % 05/05/18 Unknown Triglycerides 105 mg/dL (2-149) 05/06/18 05:35 Urine Color Yellow (Yellow) 04/20/18 13:35 Urine Turbidity Clear (Clear) 04/20/18 13:35 Urine pH 5.0 (5.0-7.0) 04/20/18 13:35 Ur Specific [place] 1.011 (1.003-1.030) 04/20/18 13:35 Urine Protein <15 mg/dl mg/dL (Negative) 04/20/18 13:35 Urine Glucose (UA) Neg mg/dL (Negative) 04/20/18 13:35 Urine Ketones 20 mg/dL (Negative) 04/20/18 13:35 Urine Blood Sm (Negative) 04/20/18 13:35 Urine Nitrite Neg (Negative) 04/20/18 13:35 Urine Bilirubin Neg (Negative) 04/20/18 13:35 Urine Urobilinogen 2.0 mg/dL (<2.0) 04/20/18 13:35 Ur Leukocyte Esterase Tr (Negative) 04/20/18 13:35 Urine WBC (Auto) 2.0 /HPF (0.0-6.0) 04/20/18 13:35 Urine RBC (Auto) 1.0 /HPF (0.0-6.0) 04/20/18 13:35 U Epithel Cells (Auto) 2.0 /HPF (0-13.0) 04/18/18 16:45 Urine Bacteria (Auto) 2+ /HPF (Negative) 04/18/18 16:45 Urine Mucus Few /HPF 04/20/18 13:35 Blood Type O POSITIVE 04/19/18 13:05 Antibody Screen Negative 04/19/18 13:05 Crossmatch See Detail 04/19/18 13:05 Nutrition/Malnutrition Assess - Dietary Evaluation Nutrition/Malnutrition Findings: Nutrition Notes Start: 04/24/18 09:13 Freq: Status: Active Protocol: Document 05/10/18 09:57 LP (Rec: 05/10/18 09:59 LP [id number]) Nutrition Notes Initial or Follow up Reassessment Current Diagnosis COPD Sepsis Hypertension Other Pertinent Diagnosis Perforated appendix s/p exp lap, Hep C Current Diet TPN at 75ml/hr Labs/Tests Reviewed Pertinent Medications Reviewed Height 5 ft 1 in Weight 42.1 kg [place] Body Weight (kg) 47.72 BMI 17.5 Subjective/Other Information Day 14 TPN. Percent of energy/protein needs met: 93%/100% Burn Absent Trauma Absent #2 Nutrition Diagnosis Increased nutrient needs ( specify in comment below) Diagnosis Progress(for reassessment Continues documentation) #1 Nutrition Diagnosis Inadequate oral intake Diagnosis Progress(for reassessment Continues documentation) Is patient on ventilator? No Is Patient Ambulatory and/or Out of Bed Yes REE-([place]-St. Jeor-ambulatory/OOB) [ 1232.894 NUTR.MSJOOB] Kcal/Kg value to use for calculation 32 Approximate Energy Requirements Using 1347 kcal/Kg Calculation Used for Recommendations Kcal/kg Additional Notes Pro needs 1.25-1.5g/k-70g /day Fluid needs 1ml/kcal Nutrition Intervention Change Diet Order: TPN Nutrition Support: Continue TPN at 75 ml/hr: MVI Kcal 1,230 Protein (gm) 95 Carbohydrates (gm) 250 Fat (gm) 0 Fluid (mL) 1,800 Fiber (gm) 0 Goal #1 CPN to meet 90-100% energy and pro needs Goal #2 Wt maintenance Anticipated Discharge Needs: Unable to determine at this time Follow-Up By: 05/11/18 Additional Comments Labs in AM: BMP, MG, Phos
--- NOTE | 2018-05-10 11:52 | Progress Note ---
Assessment and Plan Sepsis. Etiology secondary to gangrenous and perforated appendix causing intra- abdominal/pelvic abscess( resolved). status post exploratory laparotomy with appendectomy and evacuation of pelvic abscess. Intrabdominal sepsis/peritonitis Ruptured appendix with abdominal abscess Tobacco abuse disorder COPD, probable Neurofibromatosis - continue supplemental oxygen to keep O2 sats 88-90% - continue bronchodilators with pulmonary hygiene per RT - abdominal drain to suction (adjust per surgeon) - complete antibiotics course and adjust per ID - VTE prophylaxis - PT/OT/Mobility, OOB to chair daily, increase activity - continue incentive spirometry - continue nicotine withdrawal precautions - Smoking cessation counselling was done at the bedside(ongoing) - Analgesia, pain management The lower lobe infiltrate is probably atelectasis. Clinically patient does not have a pneumonia We will continue with airway clearance techniques, bronchodilators and supplemental oxygen. We will continue to monitor her closely, if there is any clinical deterioration or indication for antibiotics targeted to HAP, we will initiate antibiotics at that time -Discharge planning Subjective Date of service: 05/10/18 Principal diagnosis: Sepsis; Ex-lap appendectomy and evacuation of pelvic abscess; Peritonitis Interval history: Patient is seen today for: Sepsis; status post exploratory laparotomy with appendectomy and evacuation of pelvic abscess; Intrabdominal sepsis/peritonitis; Ruptured appendix with abdominal abscess Seen and examined at bedside; 24hour events reviewed; nursing and respiratory care staff consulted; no adverse overnight events reported to me; resting peacefully in bed; feels better; denies acute chest pains or palpitations; no N/V/F/C "I feel ok" Objective Vital Signs - 12hr 05/10/18 05/10/18 05/10/18 02:44 04:41 07:00 Temperature 97.7 F 97.7 F Pulse Rate 128 H 113 H Pulse Rate [ Anterior Bilateral Throughout] Respiratory 18 18 18 Rate Respiratory Rate [Anterior Bilateral Throughout] Blood Pressure 152/82 Blood Pressure 127/77 [Right] O2 Sat by Pulse 98 97 Oximetry 05/10/18 05/10/18 05/10/18 08:30 08:40 09:22 Temperature Pulse Rate 113 H Pulse Rate [ 115 H 117 H Anterior Bilateral Throughout] Respiratory Rate Respiratory 18 18 Rate [Anterior Bilateral Throughout] Blood Pressure 127/72 Blood Pressure [Right] O2 Sat by Pulse 95 Oximetry Constitutional: no acute distress, alert, other (chronically ill looking this middle aged CF, normocephalic, neurofibromatosis) Eyes: non-icteric ENT: oropharynx moist, other (Mallampati 2) Neck: supple, no lymphadenopathy, no JVD Effort: normal Ascultation: Bilateral: diminished breath sounds, rhonchi (scant in bases) Percussion: Bilateral: not dull Cardiovascular: regular rate and rhythm Gastrointestinal: normoactive bowel sounds, soft, tender (bhargav-op site), non- distended, other (Drain in place with non-bloody effluent) Integumentary: other ( neurofibromatous nodules over body) Extremities: no cyanosis, no edema, pink and warm, pulses normal Neurologic: normal mental status, non-focal exam, pupils equal and round, motor strength normal and Psychiatric: mood appropriate, affect normal CBC and BMP: 05/08/18 05:38 05/11/18 05:00 ABG, PT/INR, D-dimer: ABG POC ABG pH 7.367 (7.35-7.45) 04/19/18 00:19 POC ABG pCO2 36.8 (35-45) 04/19/18 00:19 POC ABG pO2 84 (80-105) 04/19/18 00:19 POC ABG HCO3 21.1 04/19/18 00:19 POC ABG Total CO2 22 04/19/18 00:19 POC ABG O2 Sat 96 04/19/18 00:19 PT/INR, D-dimer PT 15.3 Sec. (12.2-14.9) H 04/22/18 05:19 INR 1.17 (0.87-1.13) H 04/22/18 05:19 Abnormal lab findings: Abnormal Labs 04/18/18 04/18/18 04/18/18 14:30 14:30 14:30 WBC 18.6 H RBC Hgb Hct RDW Lymph % (Auto) [place] % (Auto) Lymph # Seg Neutrophils % Seg Neuts % (Manual) 79.0 H Lymphocytes % (Manual) 4.0 L Seg Neutrophils # Man 14.7 H Lymphocytes # (Manual) 0.7 L PT 16.3 H INR 1.27 H VBG pH Sodium 121 L Potassium 3.0 L Chloride 78.0 L Carbon Dioxide BUN Creatinine 0.5 L Glucose 110 H POC Glucose Lactic Acid Calcium Phosphorus Magnesium Total Bilirubin 1.30 H AST 42 H Total Protein Albumin 3.1 L Crossmatch 04/18/18 04/18/18 04/18/18 14:30 14:30 23:59 WBC RBC Hgb Hct RDW 15.8 H Lymph % (Auto) [place] % (Auto) Lymph # Seg Neutrophils % Seg Neuts % (Manual) 78.0 H Lymphocytes % (Manual) 6.0 L Seg Neutrophils # Man Lymphocytes # (Manual) 0.5 L PT INR VBG pH 7.439 H Sodium Potassium Chloride Carbon Dioxide BUN Creatinine Glucose POC Glucose Lactic Acid 3.60 H* Calcium Phosphorus Magnesium Total Bilirubin AST Total Protein Albumin Crossmatch 04/18/18 04/19/18 04/19/18 23:59 05:19 05:19 WBC 15.0 H RBC Hgb Hct RDW 15.3 H Lymph % (Auto) [place] % (Auto) Lymph # Seg Neutrophils % Seg Neuts % (Manual) Lymphocytes % (Manual) 5.0 L Seg Neutrophils # Man 8.3 H Lymphocytes # (Manual) 0.8 L PT INR VBG pH Sodium 130 L D 133 L Potassium 3.5 L 3.3 L Chloride Carbon Dioxide 20 L D BUN Creatinine 0.5 L 0.6 L Glucose 140 H 115 H POC Glucose Lactic Acid Calcium 7.5 L 7.4 L Phosphorus Magnesium Total Bilirubin AST Total Protein 4.4 L D 4.1 L Albumin 2.0 L 1.9 L Crossmatch 04/19/18 04/19/18 04/20/18 05:19 13:05 05:18 WBC RBC Hgb Hct RDW Lymph % (Auto) [place] % (Auto) Lymph # Seg Neutrophils % Seg Neuts % (Manual) Lymphocytes % (Manual) Seg Neutrophils # Man Lymphocytes # (Manual) PT 19.4 H 17.4 H INR 1.59 H 1.38 H VBG pH Sodium Potassium Chloride Carbon Dioxide BUN Creatinine Glucose POC Glucose Lactic Acid Calcium Phosphorus Magnesium Total Bilirubin AST Total Protein Albumin Crossmatch See Detail 04/20/18 04/20/18 04/21/18 13:47 13:47 04:52 WBC RBC 3.29 L 3.10 L Hgb 9.6 L 8.8 L Hct 28.1 L D 26.6 L RDW 15.3 H 15.4 H Lymph % (Auto) 5.6 L [place] % (Auto) Lymph # 0.4 L Seg Neutrophils % 87.3 H Seg Neuts % (Manual) Lymphocytes % (Manual) Seg Neutrophils # Man Lymphocytes # (Manual) PT INR VBG pH Sodium Potassium Chloride Carbon Dioxide BUN Creatinine 0.3 L Glucose 102 H POC Glucose Lactic Acid Calcium 8.0 L Phosphorus Magnesium Total Bilirubin AST Total Protein Albumin Crossmatch 04/21/18 04/22/18 04/22/18 04:52 05:19 05:19 WBC RBC 3.64 L Hgb Hct RDW Lymph % (Auto) 8.5 L [place] % (Auto) 9.9 H Lymph # 0.6 L Seg Neutrophils % 81.0 H Seg Neuts % (Manual) Lymphocytes % (Manual) Seg Neutrophils # Man Lymphocytes # (Manual) PT 15.3 H INR 1.17 H VBG pH Sodium Potassium 3.2 L Chloride Carbon Dioxide BUN Creatinine 0.3 L Glucose POC Glucose Lactic Acid Calcium 7.6 L Phosphorus Magnesium Total Bilirubin AST Total Protein Albumin Crossmatch 04/22/18 04/24/18 04/24/18 05:19 07:19 07:19 WBC RBC Hgb Hct RDW Lymph % (Auto) [place] % (Auto) Lymph # Seg Neutrophils % Seg Neuts % (Manual) Lymphocytes % (Manual) Seg Neutrophils # Man Lymphocytes # (Manual) PT INR VBG pH Sodium Potassium 3.4 L 2.9 L* Chloride Carbon Dioxide BUN Creatinine 0.3 L 0.3 L Glucose 103 H POC Glucose Lactic Acid Calcium 7.7 L 7.5 L Phosphorus Magnesium 1.60 L Total Bilirubin AST Total Protein 4.3 L Albumin 2.2 L Crossmatch 04/24/18 04/25/18 04/25/18 07:23 06:28 06:28 WBC RBC Hgb Hct RDW 15.3 H 15.9 H Lymph % (Auto) 10.1 L [place] % (Auto) Lymph # 0.8 L Seg Neutrophils % 80.6 H Seg Neuts % (Manual) Lymphocytes % (Manual) 9.0 L Seg Neutrophils # Man Lymphocytes # (Manual) 0.7 L PT INR VBG pH Sodium Potassium 3.0 L Chloride Carbon Dioxide BUN 5 L Creatinine 0.2 L Glucose 108 H POC Glucose Lactic Acid Calcium 7.4 L Phosphorus Magnesium Total Bilirubin AST Total Protein 4.6 L Albumin 2.5 L Crossmatch 04/25/18 04/26/18 04/26/18 06:28 05:45 05:45 WBC 11.9 H RBC Hgb Hct RDW 16.2 H Lymph % (Auto) [place] % (Auto) Lymph # Seg Neutrophils % Seg Neuts % (Manual) Lymphocytes % (Manual) Seg Neutrophils # Man Lymphocytes # (Manual) PT INR VBG pH Sodium Potassium Chloride Carbon Dioxide BUN 5 L Creatinine 0.2 L Glucose 119 H POC Glucose Lactic Acid Calcium 7.7 L Phosphorus 2.00 L 2.20 L Magnesium Total Bilirubin AST Total Protein Albumin Crossmatch 04/27/18 04/28/18 04/28/18 05:33 06:00 06:00 WBC 11.2 H RBC Hgb Hct RDW 16.0 H Lymph % (Auto) [place] % (Auto) Lymph # Seg Neutrophils % Seg Neuts % (Manual) 92.0 H Lymphocytes % (Manual) 5.0 L Seg Neutrophils # Man 10.3 H Lymphocytes # (Manual) 0.6 L PT INR VBG pH Sodium Potassium 3.4 L 3.1 L Chloride Carbon Dioxide BUN 6 L 4 L Creatinine 0.2 L 0.2 L Glucose 119 H POC Glucose Lactic Acid Calcium 7.5 L 7.1 L Phosphorus 2.00 L 2.10 L Magnesium 1.50 L Total Bilirubin AST Total Protein 4.3 L Albumin 2.1 L Crossmatch 04/29/18 04/29/18 04/29/18 05:18 05:18 17:49 WBC 12.0 H RBC Hgb Hct RDW 16.0 H Lymph % (Auto) [place] % (Auto) Lymph # Seg Neutrophils % Seg Neuts % (Manual) 87.0 H Lymphocytes % (Manual) 10.0 L Seg Neutrophils # Man 10.4 H Lymphocytes # (Manual) PT INR VBG pH Sodium 135 L Potassium Chloride Carbon Dioxide BUN Creatinine 0.2 L Glucose 120 H POC Glucose 108 H Lactic Acid Calcium 7.5 L Phosphorus Magnesium Total Bilirubin AST Total Protein Albumin Crossmatch 04/30/18 04/30/18 04/30/18 00:03 05:18 05:41 WBC RBC Hgb Hct RDW Lymph % (Auto) [place] % (Auto) Lymph # Seg Neutrophils % Seg Neuts % (Manual) Lymphocytes % (Manual) Seg Neutrophils # Man Lymphocytes # (Manual) PT INR VBG pH Sodium 133 L Potassium Chloride Carbon Dioxide BUN Creatinine 0.2 L Glucose 119 H POC Glucose 112 H 110 H Lactic Acid Calcium 7.5 L Phosphorus Magnesium Total Bilirubin AST Total Protein Albumin Crossmatch 04/30/18 05/01/18 05/01/18 05:41 00:39 04:45 WBC RBC 3.60 L Hgb Hct RDW 16.0 H Lymph % (Auto) [place] % (Auto) Lymph # Seg Neutrophils % Seg Neuts % (Manual) 88.0 H Lymphocytes % (Manual) 8.0 L Seg Neutrophils # Man Lymphocytes # (Manual) 0.7 L PT INR VBG pH Sodium 132 L Potassium Chloride Carbon Dioxide BUN Creatinine 0.2 L Glucose 101 H POC Glucose 119 H Lactic Acid Calcium 7.6 L Phosphorus Magnesium Total Bilirubin AST Total Protein Albumin Crossmatch 05/01/18 05/01/18 05/01/18 06:30 16:09 23:42 WBC RBC Hgb Hct RDW Lymph % (Auto) [place] % (Auto) Lymph # Seg Neutrophils % Seg Neuts % (Manual) Lymphocytes % (Manual) Seg Neutrophils # Man Lymphocytes # (Manual) PT INR VBG pH Sodium Potassium Chloride Carbon Dioxide BUN Creatinine Glucose POC Glucose 126 H 160 H 113 H Lactic Acid Calcium Phosphorus Magnesium Total Bilirubin AST Total Protein Albumin Crossmatch 05/02/18 05/02/18 05/02/18 04:55 06:41 11:53 WBC RBC Hgb Hct RDW Lymph % (Auto) [place] % (Auto) Lymph # Seg Neutrophils % Seg Neuts % (Manual) Lymphocytes % (Manual) Seg Neutrophils # Man Lymphocytes # (Manual) PT INR VBG pH Sodium 134 L Potassium Chloride Carbon Dioxide BUN Creatinine 0.2 L Glucose 113 H POC Glucose 146 H 113 H Lactic Acid Calcium 7.4 L Phosphorus Magnesium Total Bilirubin AST Total Protein Albumin Crossmatch 05/02/18 05/02/18 05/03/18 17:33 23:37 08:46 WBC RBC 3.36 L Hgb 9.7 L Hct 28.7 L RDW 16.3 H Lymph % (Auto) [place] % (Auto) 10.0 H Lymph # Seg Neutrophils % Seg Neuts % (Manual) Lymphocytes % (Manual) Seg Neutrophils # Man Lymphocytes # (Manual) PT INR VBG pH Sodium Potassium Chloride Carbon Dioxide BUN Creatinine Glucose POC Glucose 106 H 123 H Lactic Acid Calcium Phosphorus Magnesium Total Bilirubin AST Total Protein Albumin Crossmatch 05/03/18 05/03/18 05/04/18 11:54 12:15 06:59 WBC RBC Hgb Hct RDW Lymph % (Auto) [place] % (Auto) Lymph # Seg Neutrophils % Seg Neuts % (Manual) Lymphocytes % (Manual) Seg Neutrophils # Man Lymphocytes # (Manual) PT INR VBG pH Sodium 136 L Potassium Chloride Carbon Dioxide BUN Creatinine 0.2 L Glucose 131 H POC Glucose 109 H 161 H Lactic Acid Calcium 7.6 L Phosphorus Magnesium Total Bilirubin AST Total Protein Albumin Crossmatch 05/04/18 05/04/18 05/04/18 07:03 08:02 11:10 WBC RBC 3.52 L Hgb Hct 29.8 L RDW 16.2 H Lymph % (Auto) [place] % (Auto) 8.6 H Lymph # Seg Neutrophils % Seg Neuts % (Manual) Lymphocytes % (Manual) Seg Neutrophils # Man Lymphocytes # (Manual) PT INR VBG pH Sodium 135 L Potassium Chloride Carbon Dioxide BUN Creatinine 0.2 L Glucose 160 H POC Glucose 106 H Lactic Acid Calcium 7.7 L Phosphorus Magnesium Total Bilirubin AST Total Protein Albumin Crossmatch 05/04/18 05/05/18 05/05/18 23:38 11:28 16:55 WBC RBC Hgb Hct RDW Lymph % (Auto) [place] % (Auto) Lymph # Seg Neutrophils % Seg Neuts % (Manual) Lymphocytes % (Manual) Seg Neutrophils # Man Lymphocytes # (Manual) PT INR VBG pH Sodium Potassium Chloride Carbon Dioxide BUN Creatinine Glucose POC Glucose 121 H 119 H 108 H Lactic Acid Calcium Phosphorus Magnesium Total Bilirubin AST Total Protein Albumin Crossmatch 05/05/18 05/06/18 05/06/18 Unknown 05:35 16:40 WBC RBC Hgb Hct RDW Lymph % (Auto) [place] % (Auto) Lymph # Seg Neutrophils % Seg Neuts % (Manual) Lymphocytes % (Manual) Seg Neutrophils # Man Lymphocytes # (Manual) PT INR VBG pH Sodium 135 L 136 L Potassium Chloride 97.9 L Carbon Dioxide BUN Creatinine 0.2 L 0.2 L Glucose 119 H POC Glucose 133 H Lactic Acid Calcium 8.0 L 8.1 L Phosphorus Magnesium Total Bilirubin AST 46 H Total Protein 5.5 L Albumin 2.7 L Crossmatch 05/06/18 05/07/18 05/07/18 22:07 05:38 05:40 WBC RBC Hgb Hct RDW Lymph % (Auto) [place] % (Auto) Lymph # Seg Neutrophils % Seg Neuts % (Manual) Lymphocytes % (Manual) Seg Neutrophils # Man Lymphocytes # (Manual) PT INR VBG pH Sodium 133 L Potassium Chloride Carbon Dioxide BUN Creatinine 0.2 L Glucose POC Glucose 168 H 107 H Lactic Acid Calcium 8.2 L Phosphorus Magnesium Total Bilirubin AST Total Protein Albumin Crossmatch 05/07/18 05/07/18 05/08/18 11:56 18:04 05:38 WBC RBC Hgb Hct RDW 16.3 H Lymph % (Auto) [place] % (Auto) 7.7 H Lymph # Seg Neutrophils % Seg Neuts % (Manual) Lymphocytes % (Manual) Seg Neutrophils # Man Lymphocytes # (Manual) PT INR VBG pH Sodium Potassium Chloride Carbon Dioxide BUN Creatinine Glucose POC Glucose 145 H 125 H Lactic Acid Calcium Phosphorus Magnesium Total Bilirubin AST Total Protein Albumin Crossmatch 05/08/18 05/08/18 05/08/18 05:38 11:35 16:23 WBC RBC Hgb Hct RDW Lymph % (Auto) [place] % (Auto) Lymph # Seg Neutrophils % Seg Neuts % (Manual) Lymphocytes % (Manual) Seg Neutrophils # Man Lymphocytes # (Manual) PT INR VBG pH Sodium 135 L Potassium Chloride Carbon Dioxide BUN Creatinine 0.2 L Glucose POC Glucose 118 H 131 H Lactic Acid Calcium Phosphorus Magnesium Total Bilirubin AST Total Protein Albumin Crossmatch 05/08/18 05/09/18 05/09/18 21:40 05:46 06:15 WBC RBC Hgb Hct RDW Lymph % (Auto) [place] % (Auto) Lymph # Seg Neutrophils % Seg Neuts % (Manual) Lymphocytes % (Manual) Seg Neutrophils # Man Lymphocytes # (Manual) PT INR VBG pH Sodium 135 L Potassium Chloride 97.5 L Carbon Dioxide BUN Creatinine 0.2 L Glucose POC Glucose 110 H 115 H Lactic Acid Calcium Phosphorus Magnesium Total Bilirubin AST Total Protein Albumin Crossmatch 05/09/18 05/09/18 05/10/18 11:28 23:53 06:22 WBC RBC Hgb Hct RDW Lymph % (Auto) [place] % (Auto) Lymph # Seg Neutrophils % Seg Neuts % (Manual) Lymphocytes % (Manual) Seg Neutrophils # Man Lymphocytes # (Manual) PT INR VBG pH Sodium Potassium Chloride Carbon Dioxide BUN Creatinine Glucose POC Glucose 145 H 132 H 149 H Lactic Acid Calcium Phosphorus Magnesium Total Bilirubin AST Total Protein Albumin Crossmatch Chest x-ray: image reviewed Allied health notes reviewed: nursing
--- NOTE | 2018-05-10 13:46 | Progress Note ---
Assessment and Plan Pt status quo. no specific compl drainage down to 100 cc over last 24 hrs Abd soft, non tender stable continue present care Selected Entries 05/10/18 05/10/18 11:22 13:21 Temperature 97.7 F Pulse Rate 117 H Respiratory 16 Rate Blood Pressure 133/80 Objective Vital Signs - 12hr 05/10/18 05/10/18 05/10/18 02:44 04:41 07:00 Temperature 97.7 F 97.7 F Pulse Rate 128 H 113 H Pulse Rate [ Anterior Bilateral Throughout] Respiratory 18 18 18 Rate Respiratory Rate [Anterior Bilateral Throughout] Blood Pressure 152/82 Blood Pressure 127/77 [Right] O2 Sat by Pulse 98 97 Oximetry 05/10/18 05/10/18 05/10/18 08:30 08:40 09:22 Temperature Pulse Rate 113 H Pulse Rate [ 115 H 117 H Anterior Bilateral Throughout] Respiratory Rate Respiratory 18 18 Rate [Anterior Bilateral Throughout] Blood Pressure 127/72 Blood Pressure [Right] O2 Sat by Pulse 95 Oximetry 05/10/18 05/10/18 05/10/18 09:52 11:22 13:21 Temperature 97.7 F Pulse Rate 117 H Pulse Rate [ Anterior Bilateral Throughout] Respiratory 16 16 16 Rate Respiratory Rate [Anterior Bilateral Throughout] Blood Pressure 133/80 Blood Pressure [Right] O2 Sat by Pulse 98 Oximetry - Labs 05/08/18 05:38 05/09/18 06:15
[2018-05-10] MEDS ORDERED: TPN ADULT 1,800 ML IV SCH (20:00)
[2018-05-10] MEDS: REMERON PO SCH (21:22)
[2018-05-11] MEDS: DILAUDID IV PRN ×5 (02:36→20:21)
[2018-05-11] MEDS: XANAX PO PRN ×2 (05:13→14:16)
[2018-05-11 05:35] LABS: BUN/Creatinine Ratio 80; Blood Urea Nitrogen 16 mg/dL (7-17); Calcium 8.4 mg/dL (8.4-10.2); Hemolysis Index 3
[2018-05-11] MEDS: NEURONTIN PO SCH ×3 (08:14→21:37)
--- NOTE | 2018-05-11 09:16 | Progress Note ---
Assessment and Plan Pt status quo. no drainage over last 24 hrs. Drain checked and confirmed to be in place. Proper suction from canister set also confirmed. Abd soft stable resolving fistula..? continue present care. Selected Entries 05/11/18 05/11/18 07:03 08:00 Temperature 97.9 F Pulse Rate 95 H Respiratory 18 Rate Blood Pressure 134/83 Laboratory Tests 05/11/18 05:00 Sodium 138 Potassium 4.4 Chloride 100.7 Carbon Dioxide 27 Anion Gap 15 BUN 16 Glucose 113 H Objective Vital Signs - 12hr 05/10/18 05/10/18 05/11/18 23:17 23:41 02:36 Temperature 98.3 F Pulse Rate 110 H Respiratory 18 18 10 L Rate Blood Pressure 123/65 Blood Pressure [Right] O2 Sat by Pulse 96 Oximetry 05/11/18 05/11/18 05/11/18 03:17 07:03 08:00 Temperature 98.1 F 98.0 F 97.9 F Pulse Rate 117 H 95 H Respiratory 18 18 18 Rate Blood Pressure 117/64 134/83 Blood Pressure 134/83 [Right] O2 Sat by Pulse 96 95 Oximetry - Labs 05/08/18 05:38 05/11/18 05:00 Diabetes panel 05/11/18 Range/Units 05:00 Sodium 138 (137-145) mmol/L Potassium 4.4 (3.6-5.0) mmol/L Chloride 100.7 (98-107) mmol/L Carbon Dioxide 27 (22-30) mmol/L BUN 16 (7-17) mg/dL Creatinine 0.2 L (0.7-1.2) mg/dL Glucose 113 H (65-100) mg/dL Calcium 8.4 (8.4-10.2) mg/dL Calcium panel 05/11/18 Range/Units 05:00 Calcium 8.4 (8.4-10.2) mg/dL Phosphorus 3.60 (2.5-4.5) mg/dL Pituitary panel 05/11/18 Range/Units 05:00 Sodium 138 (137-145) mmol/L Potassium 4.4 (3.6-5.0) mmol/L Chloride 100.7 (98-107) mmol/L Carbon Dioxide 27 (22-30) mmol/L BUN 16 (7-17) mg/dL Creatinine 0.2 L (0.7-1.2) mg/dL Glucose 113 H (65-100) mg/dL Calcium 8.4 (8.4-10.2) mg/dL Adrenal panel 05/11/18 Range/Units 05:00 Sodium 138 (137-145) mmol/L Potassium 4.4 (3.6-5.0) mmol/L Chloride 100.7 (98-107) mmol/L Carbon Dioxide 27 (22-30) mmol/L BUN 16 (7-17) mg/dL Creatinine 0.2 L (0.7-1.2) mg/dL Glucose 113 H (65-100) mg/dL Calcium 8.4 (8.4-10.2) mg/dL
[2018-05-11] MEDS: PROVENTIL IH SCH ×2 (09:41→15:48)
[2018-05-11] MEDS: COZAAR PO SCH (10:51)
[2018-05-11] MEDS: PEPCID IV SCH ×2 (10:51→21:37)
--- NOTE | 2018-05-11 11:53 | Progress Note ---
Subjective - Reason for Consult Consult date: 05/11/18 Reason for consult: Psychiatry Follow-up - Chief Complaint Chief complaint: "I slept better" 57-year-old white female who presented to the ER for right flank and right lower quadrant pain. Psychiatry was consulted to see the patient for depression. Today the patient is calm and cooperative during the assessment. She stated that she slept much better the past two nights. She rate her depression 4/10, with 10 being the worse. She stated that she is willing to follow up with outpatient psy services when discharged. She denies SI/HI's and AVH's. SHe denies any side effects of her medications. Mental Status Exam - Vital signs Last Vital Signs Temp 97.9 F 05/11/18 08:00 Pulse 129 H 05/11/18 10:51 Resp 18 05/11/18 09:56 BP 134/83 05/11/18 10:51 Pulse Ox 96 05/11/18 09:44 - Exam Narrative exam: MSE: Appearance: calm, cooperative Behavior: regular eye contact Speech: regular rate and loud tone Mood: "better" Affect: congruent to mood Thought Process: linear Thought Content: denies SI/HI's and AVH's Motor Activity: sitting up in the bed Cognition: A/O x3 Insight: appropriate Judgment: appropriate Assessment and Plan Impression: MDD. Unspecified Anxiety DO. Insomnia. Today the patient is calm and cooperative during the assessment. DDx: R/O Somatic Symptom DO Recommendation/Plan: Continue Remeron 15 mg PO HS for depression/anxiety. Discussed possible suicidality/medication induced clau with the patient reference Remeron. Psy sign off. Dispo: The patient can follow up [facility] for outpatient psy services. Will staff with Dr Bharathi Esparza.
--- NOTE | 2018-05-11 15:06 | Progress Note ---
Assessment and Plan Assessment and plan: The patient is a 57-year-old female with hypertension, neurofibromatosis, hepatitis C, COPD, nicotine dependence presented to the emergency room on 04/18/18 with complaints of abdominal pain going on for [address] scan obtained in the emergency room revealed a ruptured appendix with associated intra-abdominal abscess. General surgery was consulted and the patient underwent an emergent exploratory laparotomy with evacuation of pelvic abscess. She was noted to have a gangrenous, perforated appendix eroding including into the small bowel. As per the op note, the abscess could not be drained as the entire abscess and inflammatory process had trapped the small bowel, which was mobilized and she underwent an ileocolic anastomosis. The patient went back to the OR on 04/25/18 for drain dislodgment. Sepsis Etiology secondary to gangrenous and perforated appendix causing intra- abdominal/pelvic abscess. Patient is status post exploratory laparotomy with appendectomy and evacuation of pelvic abscess. ID following. Continue antibiotics per ID Perforated appendix s/p exploratory lap Cont. TPN and IV abx dislodged drain, s/p taken to OR , exploratory lap, irrigation of intraabd cavity and placement of sump drain on 04/25 Draining tube was not draing overnight but draining at the time of exam, surgery evaluated and will do CT abdomen in the morning OOB as tiffanie Chronic hep C. Untreated. Outpatient follow-up. Accel Hypertension. Increase Cozaar to 100mg. Cont. Hydralazine prn. COPD. Compensated. Neurofibromatosis Tobacco abuse. Patient counseled on smoking cessation. Disposition - Patient need LTACH placement after cleared by surgery. History Interval history: Patient was seen and evaluated this morning. Didn't have any complaints. Hospitalist Physical - Physical exam Narrative exam: Not in cardiopulmonary distress. The patient appeared well nourished and normally developed. Vital signs as documented. Head exam is unremarkable. No scleral icterus . Neck is without jugular venous distension, thyromegaly, or carotid bruits. Lungs are clear to auscultation. Cardiac exam reveals regular rate and Rhythm. Abdominal exam reveals draining tube in the right lower quadrant. Extremities are nonedematous and both femoral and pedal pulses are normal. 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 No focal weakness. - Constitutional Vitals: Temp Pulse Resp BP Pulse Ox 98.8 F 128 H 20 157/87 97 05/11/18 13:44 05/11/18 13:44 05/11/18 13:44 05/11/18 13:44 05/11/18 13:44 General appearance: Present: no acute distress, cachectic, other (temporal wasting scaphoid abdomen.) Results - Labs CBC & Chem 7: 05/08/18 05:38 05/11/18 05:00 Labs: Laboratory Last Values WBC 4.9 K/mm3 (4.5-11.0) 05/08/18 05:38 RBC 3.82 M/mm3 (3.65-5.03) 05/08/18 05:38 Hgb 10.7 gm/dl (10.1-14.3) 05/08/18 05:38 Hct 32.3 % (30.3-42.9) 05/08/18 05:38 MCV 85 fl (79-97) 05/08/18 05:38 MCH 28 pg (28-32) 05/08/18 05:38 MCHC 33 % (30-34) 05/08/18 05:38 RDW 16.3 % (13.2-15.2) H 05/08/18 05:38 Plt Count 156 K/mm3 (140-440) 05/08/18 05:38 Lymph % (Auto) 29.1 % (13.4-35.0) 05/08/18 05:38 [place] % (Auto) 7.7 % (0.0-7.3) H 05/08/18 05:38 Eos % (Auto) 3.2 % (0.0-4.3) 05/08/18 05:38 Baso % (Auto) 1.1 % (0.0-1.8) 05/08/18 05:38 Lymph # 1.4 K/mm3 (1.2-5.4) 05/08/18 05:38 [place] # 0.4 K/mm3 (0.0-0.8) 05/08/18 05:38 Eos # 0.2 K/mm3 (0.0-0.4) 05/08/18 05:38 Baso # 0.1 K/mm3 (0.0-0.1) 05/08/18 05:38 Add Manual Diff Complete 04/30/18 05:41 Total Counted 100 04/30/18 05:41 Seg Neutrophils % 58.9 % (40.0-70.0) 05/08/18 05:38 Seg Neuts % (Manual) 88.0 % (40.0-70.0) H 04/30/18 05:41 Band Neutrophils % 1.0 % 04/30/18 05:41 Lymphocytes % (Manual) 8.0 % (13.4-35.0) L 04/30/18 05:41 Reactive Lymphs % (Man) 0 % 04/30/18 05:41 Monocytes % (Manual) 3.0 % (0.0-7.3) 04/30/18 05:41 Eosinophils % (Manual) 0 % (0.0-4.3) 04/30/18 05:41 Basophils % (Manual) 0 % (0.0-1.8) 04/30/18 05:41 Metamyelocytes % 0 % 04/30/18 05:41 Myelocytes % 0 % 04/30/18 05:41 Promyelocytes % 0 % 04/30/18 05:41 Blast Cells % 0 % 04/30/18 05:41 Nucleated RBC % Not Reportable 04/30/18 05:41 Seg Neutrophils # 2.9 K/mm3 (1.8-7.7) 05/08/18 05:38 Seg Neutrophils # Man 7.7 K/mm3 (1.8-7.7) 04/30/18 05:41 Band Neutrophils # 0.1 K/mm3 04/30/18 05:41 Lymphocytes # (Manual) 0.7 K/mm3 (1.2-5.4) L 04/30/18 05:41 Abs React Lymphs (Man) 0.0 K/mm3 04/30/18 05:41 Monocytes # (Manual) 0.3 K/mm3 (0.0-0.8) 04/30/18 05:41 Eosinophils # (Manual) 0.0 K/mm3 (0.0-0.4) 04/30/18 05:41 Basophils # (Manual) 0.0 K/mm3 (0.0-0.1) 04/30/18 05:41 Metamyelocytes # 0.0 K/mm3 04/30/18 05:41 Myelocytes # 0.0 K/mm3 04/30/18 05:41 Promyelocytes # 0.0 K/mm3 04/30/18 05:41 Blast Cells # 0.0 K/mm3 04/30/18 05:41 WBC Morphology Not Reportable 04/30/18 05:41 Hypersegmented Neuts Not Reportable 04/30/18 05:41 Hyposegmented Neuts Not Reportable 04/30/18 05:41 Hypogranular Neuts Not Reportable 04/30/18 05:41 Smudge Cells Not Reportable 04/30/18 05:41 Toxic Granulation Not Reportable 04/30/18 05:41 Toxic Vacuolation Not Reportable 04/30/18 05:41 Dohle Bodies Not Reportable 04/30/18 05:41 Pelger-Huet Anomaly Not Reportable 04/30/18 05:41 Nicole Rods Not Reportable 04/30/18 05:41 Platelet Estimate Appears normal 04/30/18 05:41 Clumped Platelets Not Reportable 04/30/18 05:41 Plt Clumps, EDTA Not Reportable 04/30/18 05:41 Large Platelets Not Reportable 04/30/18 05:41 Giant Platelets Not Reportable 04/30/18 05:41 Platelet Satelliting Not Reportable 04/30/18 05:41 Plt Morphology Comment Not Reportable 04/30/18 05:41 RBC Morphology Not Reportable 04/30/18 05:41 Dimorphic RBCs Not Reportable 04/30/18 05:41 Polychromasia Not Reportable 04/30/18 05:41 Hypochromasia 1+ 04/30/18 05:41 Poikilocytosis Not Reportable 04/30/18 05:41 Anisocytosis 1+ 04/30/18 05:41 Microcytosis Not Reportable 04/30/18 05:41 Macrocytosis Not Reportable 04/30/18 05:41 Spherocytes Not Reportable 04/30/18 05:41 Pappenheimer Bodies Not Reportable 04/30/18 05:41 Sickle Cells Not Reportable 04/30/18 05:41 Target Cells Not Reportable 04/30/18 05:41 Tear Drop Cells Not Reportable 04/30/18 05:41 Ovalocytes Few 04/30/18 05:41 Stomatocytes Few 04/29/18 05:18 Helmet Cells Not Reportable 04/30/18 05:41 [place] Bodies Not Reportable 04/30/18 05:41 [place] Rings Not Reportable 04/30/18 05:41 [place] Cells Not Reportable 04/30/18 05:41 Bite Cells Not Reportable 04/30/18 05:41 Crenated Cell Not Reportable 04/30/18 05:41 Elliptocytes Not Reportable 04/30/18 05:41 Acanthocytes (Spur) Not Reportable 04/30/18 05:41 Rouleaux Not Reportable 04/30/18 05:41 Hemoglobin C Crystals Not Reportable 04/30/18 05:41 Schistocytes Not Reportable 04/30/18 05:41 Malaria parasites Not Reportable 04/30/18 05:41 Hung Bodies Not Reportable 04/30/18 05:41 Hem Pathologist Commnt No 04/30/18 05:41 PT 15.3 Sec. (12.2-14.9) H 04/22/18 05:19 INR 1.17 (0.87-1.13) H 04/22/18 05:19 APTT 29.4 Sec. (24.2-36.6) 04/19/18 05:19 POC ABG pH 7.367 (7.35-7.45) 04/19/18 00:19 POC ABG pCO2 36.8 (35-45) 04/19/18 00:19 POC ABG pO2 84 (80-105) 04/19/18 00:19 POC ABG HCO3 21.1 04/19/18 00:19 POC ABG Total CO2 22 04/19/18 00:19 POC ABG O2 Sat 96 04/19/18 00:19 POC ABG Base Excess -4 04/19/18 00:19 VBG pH 7.439 (7.320-7.420) H 04/18/18 14:30 FiO2 32 % 04/19/18 00:19 Sodium 138 mmol/L (137-145) 05/11/18 05:00 Potassium 4.4 mmol/L (3.6-5.0) 05/11/18 05:00 Chloride 100.7 mmol/L (98-107) 05/11/18 05:00 Carbon Dioxide 27 mmol/L (22-30) 05/11/18 05:00 Anion Gap 15 mmol/L 05/11/18 05:00 BUN 16 mg/dL (7-17) 05/11/18 05:00 Creatinine 0.2 mg/dL (0.7-1.2) L 05/11/18 05:00 Estimated GFR > 60 ml/min 05/11/18 05:00 BUN/Creatinine Ratio 80 % 05/11/18 05:00 Glucose 113 mg/dL (65-100) H 05/11/18 05:00 POC Glucose 143 (70-105) H 05/11/18 11:23 Lactic Acid 0.90 mmol/L (0.7-2.0) 04/18/18 18:41 Calcium 8.4 mg/dL (8.4-10.2) 05/11/18 05:00 Phosphorus 3.60 mg/dL (2.5-4.5) 05/11/18 05:00 Magnesium 2.00 mg/dL (1.7-2.3) 05/11/18 05:00 Total Bilirubin 0.30 mg/dL (0.1-1.2) 05/05/18 Unknown AST 46 units/L (5-40) H 05/05/18 Unknown ALT 35 units/L (7-56) 05/05/18 Unknown Alkaline Phosphatase 110 units/L (35-129) 05/05/18 Unknown Total Protein 5.5 g/dL (6.3-8.2) L 05/05/18 Unknown Albumin 2.7 g/dL (3.9-5) L 05/05/18 Unknown Albumin/Globulin Ratio 1.0 % 05/05/18 Unknown Triglycerides 105 mg/dL (2-149) 05/06/18 05:35 Urine Color Yellow (Yellow) 04/20/18 13:35 Urine Turbidity Clear (Clear) 04/20/18 13:35 Urine pH 5.0 (5.0-7.0) 04/20/18 13:35 Ur Specific [place] 1.011 (1.003-1.030) 04/20/18 13:35 Urine Protein <15 mg/dl mg/dL (Negative) 04/20/18 13:35 Urine Glucose (UA) Neg mg/dL (Negative) 04/20/18 13:35 Urine Ketones 20 mg/dL (Negative) 04/20/18 13:35 Urine Blood Sm (Negative) 04/20/18 13:35 Urine Nitrite Neg (Negative) 04/20/18 13:35 Urine Bilirubin Neg (Negative) 04/20/18 13:35 Urine Urobilinogen 2.0 mg/dL (<2.0) 04/20/18 13:35 Ur Leukocyte Esterase Tr (Negative) 04/20/18 13:35 Urine WBC (Auto) 2.0 /HPF (0.0-6.0) 04/20/18 13:35 Urine RBC (Auto) 1.0 /HPF (0.0-6.0) 04/20/18 13:35 U Epithel Cells (Auto) 2.0 /HPF (0-13.0) 04/18/18 16:45 Urine Bacteria (Auto) 2+ /HPF (Negative) 04/18/18 16:45 Urine Mucus Few /HPF 04/20/18 13:35 Blood Type O POSITIVE 04/19/18 13:05 Antibody Screen Negative 04/19/18 13:05 Crossmatch See Detail 04/19/18 13:05 Nutrition/Malnutrition Assess - Dietary Evaluation Nutrition/Malnutrition Findings: Nutrition Notes Start: 04/24/18 09:13 Freq: Status: Active Protocol: Document 05/11/18 12:37 LP (Rec: 05/11/18 12:38 LP [id number]) Nutrition Notes Initial or Follow up Reassessment Current Diagnosis COPD Sepsis Hypertension Other Pertinent Diagnosis Perforated appendix s/p exp lap, Hep C Current Diet TPN at 75ml/hr Labs/Tests Reviewed Pertinent Medications Reviewed Height 5 ft 1 in Weight 42.1 kg [place] Body Weight (kg) 47.72 BMI 17.5 Subjective/Other Information Day 15 TPN. No output form drain noted. Percent of energy/protein needs met: 93%/100% Burn Absent Trauma Absent #2 Nutrition Diagnosis Increased nutrient needs ( specify in comment below) Diagnosis Progress(for reassessment Continues documentation) #1 Nutrition Diagnosis Inadequate oral intake Diagnosis Progress(for reassessment Continues documentation) Is patient on ventilator? No Is Patient Ambulatory and/or Out of Bed Yes REE-(Arthur-St. Jeor-ambulatory/OOB) [ 1232.894 [id number]] Kcal/Kg value to use for calculation 32 Approximate Energy Requirements Using 1347 kcal/Kg Calculation Used for Recommendations Kcal/kg Additional Notes Pro needs 1.25-1.5g/k-70g /day Fluid needs 1ml/kcal Nutrition Intervention Change Diet Order: TPN Nutrition Support: Continue TPN at 75 ml/hr: MVI, Lipids Kcal 1,730 Protein (gm) 95 Carbohydrates (gm) 250 Fat (gm) 50 Fluid (mL) 2,050 Fiber (gm) 0 Goal #1 CPN to meet 90-100% energy and pro needs Goal #2 Wt maintenance Anticipated Discharge Needs: Unable to determine at this time Follow-Up By: 05/12/18 Additional Comments No labs
--- NOTE | 2018-05-11 18:32 | Progress Note ---
Assessment and Plan Patient awake and weak. Resting on room air at this time.O2 saturation 96%.No complaint of chest pain, shortness of breath or cough. - Patient Problems (1) Appendicitis with perforation Current Visit: Yes Status: Acute Plan to address problem: S/p resection of perforated appendex. (2) Sepsis Current Visit: Yes Status: Acute Qualifiers: Sepsis type: Escherichia coli Qualified Code(s): A41.51 - Sepsis due to Escherichia coli [E. coli] Plan to address problem: Resolved. Patient off the antibiotics. (3) Acute metabolic encephalopathy Current Visit: No Status: Acute Plan to address problem: Appears improved. Management as per primary care. (4) Marijuana abuse Current Visit: No Status: Acute Plan to address problem: Counselled not use marijuana. Subjective Date of service: 05/11/18 Principal diagnosis: Sepsis; Ex-lap appendectomy and evacuation of pelvic abscess; Peritonitis Interval history: Patient awake and weak. Resting on room air at this time.O2 saturation 96%.No complaint of chest pain, shortness of breath or cough. Objective Vital Signs - 12hr 05/11/18 05/11/18 05/11/18 07:03 08:00 09:41 Temperature 98.0 F 97.9 F Pulse Rate 95 H Pulse Rate [ 121 H Anterior Bilateral Throughout] Respiratory 18 18 Rate Respiratory 20 Rate [Anterior Bilateral Throughout] Blood Pressure 134/83 Blood Pressure 134/83 [Right] O2 Sat by Pulse 95 Oximetry 05/11/18 05/11/18 05/11/18 09:44 09:56 10:51 Temperature Pulse Rate 129 H Pulse Rate [ 123 H Anterior Bilateral Throughout] Respiratory Rate Respiratory 18 Rate [Anterior Bilateral Throughout] Blood Pressure 134/83 Blood Pressure [Right] O2 Sat by Pulse 96 Oximetry 05/11/18 05/11/18 05/11/18 11:24 13:44 15:00 Temperature 98.7 F 98.8 F 98.8 F Pulse Rate 58 L 128 H 124 H Pulse Rate [ Anterior Bilateral Throughout] Respiratory 20 20 18 Rate Respiratory Rate [Anterior Bilateral Throughout] Blood Pressure 157/87 Blood Pressure 157/87 148/79 [Right] O2 Sat by Pulse 86 97 96 Oximetry 05/11/18 05/11/18 05/11/18 15:17 15:48 16:06 Temperature 98.8 F Pulse Rate Pulse Rate [ 124 H 120 H Anterior Bilateral Throughout] Respiratory 18 Rate Respiratory 20 18 Rate [Anterior Bilateral Throughout] Blood Pressure 148/79 Blood Pressure [Right] O2 Sat by Pulse Oximetry Constitutional: no acute distress, alert, other (chronically ill looking this middle aged CF, normocephalic, neurofibromatosis) Eyes: non-icteric ENT: oropharynx moist, other (Mallampati 2) Neck: supple, no lymphadenopathy, no JVD Effort: normal Ascultation: Bilateral: diminished breath sounds, rhonchi (scant in bases) Percussion: Bilateral: not dull Cardiovascular: regular rate and rhythm Gastrointestinal: normoactive bowel sounds, soft, tender (bhargav-op site), non- distended, other (Drain in place with non-bloody effluent) Integumentary: other ( neurofibromatous nodules over body) Extremities: no cyanosis, no edema, pink and warm, pulses normal Neurologic: normal mental status, non-focal exam, pupils equal and round, motor strength normal and Psychiatric: mood appropriate, affect normal CBC and BMP: 05/08/18 05:38 05/11/18 05:00 ABG, PT/INR, D-dimer: ABG POC ABG pH 7.367 (7.35-7.45) 04/19/18 00:19 POC ABG pCO2 36.8 (35-45) 04/19/18 00:19 POC ABG pO2 84 (80-105) 04/19/18 00:19 POC ABG HCO3 21.1 04/19/18 00:19 POC ABG Total CO2 22 04/19/18 00:19 POC ABG O2 Sat 96 04/19/18 00:19 PT/INR, D-dimer PT 15.3 Sec. (12.2-14.9) H 04/22/18 05:19 INR 1.17 (0.87-1.13) H 04/22/18 05:19 Abnormal lab findings: Abnormal Labs 04/18/18 04/18/18 04/18/18 14:30 14:30 14:30 WBC 18.6 H RBC Hgb Hct RDW Lymph % (Auto) [place] % (Auto) Lymph # Seg Neutrophils % Seg Neuts % (Manual) 79.0 H Lymphocytes % (Manual) 4.0 L Seg Neutrophils # Man 14.7 H Lymphocytes # (Manual) 0.7 L PT 16.3 H INR 1.27 H VBG pH Sodium 121 L Potassium 3.0 L Chloride 78.0 L Carbon Dioxide BUN Creatinine 0.5 L Glucose 110 H POC Glucose Lactic Acid Calcium Phosphorus Magnesium Total Bilirubin 1.30 H AST 42 H Total Protein Albumin 3.1 L Crossmatch 04/18/18 04/18/18 04/18/18 14:30 14:30 23:59 WBC RBC Hgb Hct RDW 15.8 H Lymph % (Auto) [place] % (Auto) Lymph # Seg Neutrophils % Seg Neuts % (Manual) 78.0 H Lymphocytes % (Manual) 6.0 L Seg Neutrophils # Man Lymphocytes # (Manual) 0.5 L PT INR VBG pH 7.439 H Sodium Potassium Chloride Carbon Dioxide BUN Creatinine Glucose POC Glucose Lactic Acid 3.60 H* Calcium Phosphorus Magnesium Total Bilirubin AST Total Protein Albumin Crossmatch 04/18/18 04/19/18 04/19/18 23:59 05:19 05:19 WBC 15.0 H RBC Hgb Hct RDW 15.3 H Lymph % (Auto) [place] % (Auto) Lymph # Seg Neutrophils % Seg Neuts % (Manual) Lymphocytes % (Manual) 5.0 L Seg Neutrophils # Man 8.3 H Lymphocytes # (Manual) 0.8 L PT INR VBG pH Sodium 130 L D 133 L Potassium 3.5 L 3.3 L Chloride Carbon Dioxide 20 L D BUN Creatinine 0.5 L 0.6 L Glucose 140 H 115 H POC Glucose Lactic Acid Calcium 7.5 L 7.4 L Phosphorus Magnesium Total Bilirubin AST Total Protein 4.4 L D 4.1 L Albumin 2.0 L 1.9 L Crossmatch 04/19/18 04/19/18 04/20/18 05:19 13:05 05:18 WBC RBC Hgb Hct RDW Lymph % (Auto) [place] % (Auto) Lymph # Seg Neutrophils % Seg Neuts % (Manual) Lymphocytes % (Manual) Seg Neutrophils # Man Lymphocytes # (Manual) PT 19.4 H 17.4 H INR 1.59 H 1.38 H VBG pH Sodium Potassium Chloride Carbon Dioxide BUN Creatinine Glucose POC Glucose Lactic Acid Calcium Phosphorus Magnesium Total Bilirubin AST Total Protein Albumin Crossmatch See Detail 04/20/18 04/20/18 04/21/18 13:47 13:47 04:52 WBC RBC 3.29 L 3.10 L Hgb 9.6 L 8.8 L Hct 28.1 L D 26.6 L RDW 15.3 H 15.4 H Lymph % (Auto) 5.6 L [place] % (Auto) Lymph # 0.4 L Seg Neutrophils % 87.3 H Seg Neuts % (Manual) Lymphocytes % (Manual) Seg Neutrophils # Man Lymphocytes # (Manual) PT INR VBG pH Sodium Potassium Chloride Carbon Dioxide BUN Creatinine 0.3 L Glucose 102 H POC Glucose Lactic Acid Calcium 8.0 L Phosphorus Magnesium Total Bilirubin AST Total Protein Albumin Crossmatch 04/21/18 04/22/18 04/22/18 04:52 05:19 05:19 WBC RBC 3.64 L Hgb Hct RDW Lymph % (Auto) 8.5 L [place] % (Auto) 9.9 H Lymph # 0.6 L Seg Neutrophils % 81.0 H Seg Neuts % (Manual) Lymphocytes % (Manual) Seg Neutrophils # Man Lymphocytes # (Manual) PT 15.3 H INR 1.17 H VBG pH Sodium Potassium 3.2 L Chloride Carbon Dioxide BUN Creatinine 0.3 L Glucose POC Glucose Lactic Acid Calcium 7.6 L Phosphorus Magnesium Total Bilirubin AST Total Protein Albumin Crossmatch 04/22/18 04/24/18 04/24/18 05:19 07:19 07:19 WBC RBC Hgb Hct RDW Lymph % (Auto) [place] % (Auto) Lymph # Seg Neutrophils % Seg Neuts % (Manual) Lymphocytes % (Manual) Seg Neutrophils # Man Lymphocytes # (Manual) PT INR VBG pH Sodium Potassium 3.4 L 2.9 L* Chloride Carbon Dioxide BUN Creatinine 0.3 L 0.3 L Glucose 103 H POC Glucose Lactic Acid Calcium 7.7 L 7.5 L Phosphorus Magnesium 1.60 L Total Bilirubin AST Total Protein 4.3 L Albumin 2.2 L Crossmatch 04/24/18 04/25/18 04/25/18 07:23 06:28 06:28 WBC RBC Hgb Hct RDW 15.3 H 15.9 H Lymph % (Auto) 10.1 L [place] % (Auto) Lymph # 0.8 L Seg Neutrophils % 80.6 H Seg Neuts % (Manual) Lymphocytes % (Manual) 9.0 L Seg Neutrophils # Man Lymphocytes # (Manual) 0.7 L PT INR VBG pH Sodium Potassium 3.0 L Chloride Carbon Dioxide BUN 5 L Creatinine 0.2 L Glucose 108 H POC Glucose Lactic Acid Calcium 7.4 L Phosphorus Magnesium Total Bilirubin AST Total Protein 4.6 L Albumin 2.5 L Crossmatch 04/25/18 04/26/18 04/26/18 06:28 05:45 05:45 WBC 11.9 H RBC Hgb Hct RDW 16.2 H Lymph % (Auto) [place] % (Auto) Lymph # Seg Neutrophils % Seg Neuts % (Manual) Lymphocytes % (Manual) Seg Neutrophils # Man Lymphocytes # (Manual) PT INR VBG pH Sodium Potassium Chloride Carbon Dioxide BUN 5 L Creatinine 0.2 L Glucose 119 H POC Glucose Lactic Acid Calcium 7.7 L Phosphorus 2.00 L 2.20 L Magnesium Total Bilirubin AST Total Protein Albumin Crossmatch 04/27/18 04/28/18 04/28/18 05:33 06:00 06:00 WBC 11.2 H RBC Hgb Hct RDW 16.0 H Lymph % (Auto) [place] % (Auto) Lymph # Seg Neutrophils % Seg Neuts % (Manual) 92.0 H Lymphocytes % (Manual) 5.0 L Seg Neutrophils # Man 10.3 H Lymphocytes # (Manual) 0.6 L PT INR VBG pH Sodium Potassium 3.4 L 3.1 L Chloride Carbon Dioxide BUN 6 L 4 L Creatinine 0.2 L 0.2 L Glucose 119 H POC Glucose Lactic Acid Calcium 7.5 L 7.1 L Phosphorus 2.00 L 2.10 L Magnesium 1.50 L Total Bilirubin AST Total Protein 4.3 L Albumin 2.1 L Crossmatch 04/29/18 04/29/18 04/29/18 05:18 05:18 17:49 WBC 12.0 H RBC Hgb Hct RDW 16.0 H Lymph % (Auto) [place] % (Auto) Lymph # Seg Neutrophils % Seg Neuts % (Manual) 87.0 H Lymphocytes % (Manual) 10.0 L Seg Neutrophils # Man 10.4 H Lymphocytes # (Manual) PT INR VBG pH Sodium 135 L Potassium Chloride Carbon Dioxide BUN Creatinine 0.2 L Glucose 120 H POC Glucose 108 H Lactic Acid Calcium 7.5 L Phosphorus Magnesium Total Bilirubin AST Total Protein Albumin Crossmatch 04/30/18 04/30/18 04/30/18 00:03 05:18 05:41 WBC RBC Hgb Hct RDW Lymph % (Auto) [place] % (Auto) Lymph # Seg Neutrophils % Seg Neuts % (Manual) Lymphocytes % (Manual) Seg Neutrophils # Man Lymphocytes # (Manual) PT INR VBG pH Sodium 133 L Potassium Chloride Carbon Dioxide BUN Creatinine 0.2 L Glucose 119 H POC Glucose 112 H 110 H Lactic Acid Calcium 7.5 L Phosphorus Magnesium Total Bilirubin AST Total Protein Albumin Crossmatch 04/30/18 05/01/18 05/01/18 05:41 00:39 04:45 WBC RBC 3.60 L Hgb Hct RDW 16.0 H Lymph % (Auto) [place] % (Auto) Lymph # Seg Neutrophils % Seg Neuts % (Manual) 88.0 H Lymphocytes % (Manual) 8.0 L Seg Neutrophils # Man Lymphocytes # (Manual) 0.7 L PT INR VBG pH Sodium 132 L Potassium Chloride Carbon Dioxide BUN Creatinine 0.2 L Glucose 101 H POC Glucose 119 H Lactic Acid Calcium 7.6 L Phosphorus Magnesium Total Bilirubin AST Total Protein Albumin Crossmatch 05/01/18 05/01/18 05/01/18 06:30 16:09 23:42 WBC RBC Hgb Hct RDW Lymph % (Auto) [place] % (Auto) Lymph # Seg Neutrophils % Seg Neuts % (Manual) Lymphocytes % (Manual) Seg Neutrophils # Man Lymphocytes # (Manual) PT INR VBG pH Sodium Potassium Chloride Carbon Dioxide BUN Creatinine Glucose POC Glucose 126 H 160 H 113 H Lactic Acid Calcium Phosphorus Magnesium Total Bilirubin AST Total Protein Albumin Crossmatch 05/02/18 05/02/18 05/02/18 04:55 06:41 11:53 WBC RBC Hgb Hct RDW Lymph % (Auto) [place] % (Auto) Lymph # Seg Neutrophils % Seg Neuts % (Manual) Lymphocytes % (Manual) Seg Neutrophils # Man Lymphocytes # (Manual) PT INR VBG pH Sodium 134 L Potassium Chloride Carbon Dioxide BUN Creatinine 0.2 L Glucose 113 H POC Glucose 146 H 113 H Lactic Acid Calcium 7.4 L Phosphorus Magnesium Total Bilirubin AST Total Protein Albumin Crossmatch 05/02/18 05/02/18 05/03/18 17:33 23:37 08:46 WBC RBC 3.36 L Hgb 9.7 L Hct 28.7 L RDW 16.3 H Lymph % (Auto) [place] % (Auto) 10.0 H Lymph # Seg Neutrophils % Seg Neuts % (Manual) Lymphocytes % (Manual) Seg Neutrophils # Man Lymphocytes # (Manual) PT INR VBG pH Sodium Potassium Chloride Carbon Dioxide BUN Creatinine Glucose POC Glucose 106 H 123 H Lactic Acid Calcium Phosphorus Magnesium Total Bilirubin AST Total Protein Albumin Crossmatch 05/03/18 05/03/18 05/04/18 11:54 12:15 06:59 WBC RBC Hgb Hct RDW Lymph % (Auto) [place] % (Auto) Lymph # Seg Neutrophils % Seg Neuts % (Manual) Lymphocytes % (Manual) Seg Neutrophils # Man Lymphocytes # (Manual) PT INR VBG pH Sodium 136 L Potassium Chloride Carbon Dioxide BUN Creatinine 0.2 L Glucose 131 H POC Glucose 109 H 161 H Lactic Acid Calcium 7.6 L Phosphorus Magnesium Total Bilirubin AST Total Protein Albumin Crossmatch 05/04/18 05/04/18 05/04/18 07:03 08:02 11:10 WBC RBC 3.52 L Hgb Hct 29.8 L RDW 16.2 H Lymph % (Auto) [place] % (Auto) 8.6 H Lymph # Seg Neutrophils % Seg Neuts % (Manual) Lymphocytes % (Manual) Seg Neutrophils # Man Lymphocytes # (Manual) PT INR VBG pH Sodium 135 L Potassium Chloride Carbon Dioxide BUN Creatinine 0.2 L Glucose 160 H POC Glucose 106 H Lactic Acid Calcium 7.7 L Phosphorus Magnesium Total Bilirubin AST Total Protein Albumin Crossmatch 05/04/18 05/05/18 05/05/18 23:38 11:28 16:55 WBC RBC Hgb Hct RDW Lymph % (Auto) [place] % (Auto) Lymph # Seg Neutrophils % Seg Neuts % (Manual) Lymphocytes % (Manual) Seg Neutrophils # Man Lymphocytes # (Manual) PT INR VBG pH Sodium Potassium Chloride Carbon Dioxide BUN Creatinine Glucose POC Glucose 121 H 119 H 108 H Lactic Acid Calcium Phosphorus Magnesium Total Bilirubin AST Total Protein Albumin Crossmatch 05/05/18 05/06/18 05/06/18 Unknown 05:35 16:40 WBC RBC Hgb Hct RDW Lymph % (Auto) [place] % (Auto) Lymph # Seg Neutrophils % Seg Neuts % (Manual) Lymphocytes % (Manual) Seg Neutrophils # Man Lymphocytes # (Manual) PT INR VBG pH Sodium 135 L 136 L Potassium Chloride 97.9 L Carbon Dioxide BUN Creatinine 0.2 L 0.2 L Glucose 119 H POC Glucose 133 H Lactic Acid Calcium 8.0 L 8.1 L Phosphorus Magnesium Total Bilirubin AST 46 H Total Protein 5.5 L Albumin 2.7 L Crossmatch 05/06/18 05/07/18 05/07/18 22:07 05:38 05:40 WBC RBC Hgb Hct RDW Lymph % (Auto) [place] % (Auto) Lymph # Seg Neutrophils % Seg Neuts % (Manual) Lymphocytes % (Manual) Seg Neutrophils # Man Lymphocytes # (Manual) PT INR VBG pH Sodium 133 L Potassium Chloride Carbon Dioxide BUN Creatinine 0.2 L Glucose POC Glucose 168 H 107 H Lactic Acid Calcium 8.2 L Phosphorus Magnesium Total Bilirubin AST Total Protein Albumin Crossmatch 05/07/18 05/07/18 05/08/18 11:56 18:04 05:38 WBC RBC Hgb Hct RDW 16.3 H Lymph % (Auto) [place] % (Auto) 7.7 H Lymph # Seg Neutrophils % Seg Neuts % (Manual) Lymphocytes % (Manual) Seg Neutrophils # Man Lymphocytes # (Manual) PT INR VBG pH Sodium Potassium Chloride Carbon Dioxide BUN Creatinine Glucose POC Glucose 145 H 125 H Lactic Acid Calcium Phosphorus Magnesium Total Bilirubin AST Total Protein Albumin Crossmatch 05/08/18 05/08/18 05/08/18 05:38 11:35 16:23 WBC RBC Hgb Hct RDW Lymph % (Auto) [place] % (Auto) Lymph # Seg Neutrophils % Seg Neuts % (Manual) Lymphocytes % (Manual) Seg Neutrophils # Man Lymphocytes # (Manual) PT INR VBG pH Sodium 135 L Potassium Chloride Carbon Dioxide BUN Creatinine 0.2 L Glucose POC Glucose 118 H 131 H Lactic Acid Calcium Phosphorus Magnesium Total Bilirubin AST Total Protein Albumin Crossmatch 05/08/18 05/09/18 05/09/18 21:40 05:46 06:15 WBC RBC Hgb Hct RDW Lymph % (Auto) [place] % (Auto) Lymph # Seg Neutrophils % Seg Neuts % (Manual) Lymphocytes % (Manual) Seg Neutrophils # Man Lymphocytes # (Manual) PT INR VBG pH Sodium 135 L Potassium Chloride 97.5 L Carbon Dioxide BUN Creatinine 0.2 L Glucose POC Glucose 110 H 115 H Lactic Acid Calcium Phosphorus Magnesium Total Bilirubin AST Total Protein Albumin Crossmatch 05/09/18 05/09/18 05/10/18 11:28 23:53 06:22 WBC RBC Hgb Hct RDW Lymph % (Auto) [place] % (Auto) Lymph # Seg Neutrophils % Seg Neuts % (Manual) Lymphocytes % (Manual) Seg Neutrophils # Man Lymphocytes # (Manual) PT INR VBG pH Sodium Potassium Chloride Carbon Dioxide BUN Creatinine Glucose POC Glucose 145 H 132 H 149 H Lactic Acid Calcium Phosphorus Magnesium Total Bilirubin AST Total Protein Albumin Crossmatch 05/10/18 05/10/18 05/11/18 16:14 23:24 05:00 WBC RBC Hgb Hct RDW Lymph % (Auto) [place] % (Auto) Lymph # Seg Neutrophils % Seg Neuts % (Manual) Lymphocytes % (Manual) Seg Neutrophils # Man Lymphocytes # (Manual) PT INR VBG pH Sodium Potassium Chloride Carbon Dioxide BUN Creatinine 0.2 L Glucose 113 H POC Glucose 119 H 119 H Lactic Acid Calcium Phosphorus Magnesium Total Bilirubin AST Total Protein Albumin Crossmatch 05/11/18 05/11/18 05/11/18 05:57 11:23 16:29 WBC RBC Hgb Hct RDW Lymph % (Auto) [place] % (Auto) Lymph # Seg Neutrophils % Seg Neuts % (Manual) Lymphocytes % (Manual) Seg Neutrophils # Man Lymphocytes # (Manual) PT INR VBG pH Sodium Potassium Chloride Carbon Dioxide BUN Creatinine Glucose POC Glucose 173 H 143 H 159 H Lactic Acid Calcium Phosphorus Magnesium Total Bilirubin AST Total Protein Albumin Crossmatch Allied health notes reviewed: nursing
[2018-05-11] MEDS: ZOFRAN IV PRN (19:30)
[2018-05-11] MEDS ORDERED: TPN ADULT 1,800 ML IV SCH (20:00)
[2018-05-11] MEDS ORDERED: INTRALIPID 20% 250 ML IV SCH (20:00)
[2018-05-11] MEDS: REMERON PO SCH (22:30)
[2018-05-12] MEDS: DILAUDID IV PRN ×6 (00:04→19:44)
[2018-05-12] MEDS: NORCO 5/325 PO PRN ×5 (06:28→22:07)
[2018-05-12] MEDS: NEURONTIN PO SCH ×3 (08:19→19:44)
[2018-05-12] MEDS: PROVENTIL IH SCH ×4 (09:00→19:58)
[2018-05-12] MEDS: PEPCID IV SCH ×2 (10:02→22:02)
[2018-05-12] MEDS: COZAAR PO SCH (10:02)
--- NOTE | 2018-05-12 11:56 | Progress Note ---
Assessment and Plan Pt feeling well. 0 drainage again today. Abd soft, non tender stable will take sump drain off suction and monitor clinically stable Selected Entries 05/12/18 11:48 Temperature 98 F Pulse Rate 102 H Respiratory 18 Rate Blood Pressure 137/70 [Right] Objective Vital Signs - 12hr 05/12/18 05/12/18 05/12/18 00:48 01:43 04:05 Temperature 98.2 F 98.3 F Pulse Rate 114 H 112 H 116 H Pulse Rate [ Anterior Bilateral Throughout] Respiratory 17 16 Rate Respiratory Rate [Abdomen] Respiratory Rate [Anterior Bilateral Throughout] Respiratory Rate [Back] Respiratory Rate [R Groin] Blood Pressure 150/81 Blood Pressure 137/73 [Right] O2 Sat by Pulse 93 91 95 Oximetry 05/12/18 05/12/18 05/12/18 07:28 07:43 08:00 Temperature 98.2 F Pulse Rate 121 H Pulse Rate [ Anterior Bilateral Throughout] Respiratory 20 18 Rate Respiratory 20 Rate [Abdomen] Respiratory Rate [Anterior Bilateral Throughout] Respiratory 20 Rate [Back] Respiratory 20 Rate [R Groin] Blood Pressure Blood Pressure 141/84 [Right] O2 Sat by Pulse 99 Oximetry 05/12/18 05/12/18 05/12/18 08:19 09:00 09:10 Temperature Pulse Rate Pulse Rate [ 104 H 108 H Anterior Bilateral Throughout] Respiratory 20 Rate Respiratory Rate [Abdomen] Respiratory 16 16 Rate [Anterior Bilateral Throughout] Respiratory Rate [Back] Respiratory Rate [R Groin] Blood Pressure Blood Pressure [Right] O2 Sat by Pulse Oximetry 05/12/18 05/12/18 05/12/18 09:57 10:00 10:02 Temperature Pulse Rate 121 H Pulse Rate [ Anterior Bilateral Throughout] Respiratory 20 Rate Respiratory Rate [Abdomen] Respiratory Rate [Anterior Bilateral Throughout] Respiratory Rate [Back] Respiratory Rate [R Groin] Blood Pressure 141/80 Blood Pressure [Right] O2 Sat by Pulse 98 Oximetry 05/12/18 11:48 Temperature 98 F Pulse Rate 102 H Pulse Rate [ Anterior Bilateral Throughout] Respiratory 18 Rate Respiratory Rate [Abdomen] Respiratory Rate [Anterior Bilateral Throughout] Respiratory Rate [Back] Respiratory Rate [R Groin] Blood Pressure Blood Pressure 137/70 [Right] O2 Sat by Pulse 97 Oximetry - Labs 05/08/18 05:38 05/11/18 05:00
--- NOTE | 2018-05-12 13:47 | Progress Note ---
Assessment and Plan Patient awake and weak. Resting on room air at this time.O2 saturation 97%.No complaint of chest pain, shortness of breath or cough. - Patient Problems (1) Appendicitis with perforation Current Visit: Yes Status: Acute Plan to address problem: S/p resection of perforated appendex. (2) Sepsis Current Visit: Yes Status: Acute Qualifiers: Sepsis type: Escherichia coli Qualified Code(s): A41.51 - Sepsis due to Escherichia coli [E. coli] Plan to address problem: Resolved. Patient off the antibiotics. (3) Acute metabolic encephalopathy Current Visit: No Status: Acute Plan to address problem: Appears improved. Management as per primary care. (4) Marijuana abuse Current Visit: No Status: Acute Plan to address problem: Counselled not use marijuana. Subjective Date of service: 05/12/18 Principal diagnosis: Sepsis; Ex-lap appendectomy and evacuation of pelvic abscess; Peritonitis Interval history: Patient awake and weak. Resting on room air at this time.O2 saturation 97%.No complaint of chest pain, shortness of breath or cough. Objective Vital Signs - 12hr 05/12/18 05/12/18 05/12/18 04:05 07:28 07:43 Temperature 98.3 F 98.2 F Pulse Rate 116 H 121 H Pulse Rate [ Anterior Bilateral Throughout] Respiratory 16 20 18 Rate Respiratory Rate [Abdomen] Respiratory Rate [Anterior Bilateral Throughout] Respiratory Rate [Back] Respiratory Rate [R Groin] Blood Pressure 150/81 Blood Pressure 141/84 [Right] O2 Sat by Pulse 95 99 Oximetry 05/12/18 05/12/18 05/12/18 08:00 08:19 08:49 Temperature Pulse Rate Pulse Rate [ Anterior Bilateral Throughout] Respiratory 20 20 Rate Respiratory 20 Rate [Abdomen] Respiratory Rate [Anterior Bilateral Throughout] Respiratory 20 Rate [Back] Respiratory 20 Rate [R Groin] Blood Pressure Blood Pressure [Right] O2 Sat by Pulse Oximetry 05/12/18 05/12/18 05/12/18 09:00 09:10 09:57 Temperature Pulse Rate Pulse Rate [ 104 H 108 H Anterior Bilateral Throughout] Respiratory Rate Respiratory Rate [Abdomen] Respiratory 16 16 Rate [Anterior Bilateral Throughout] Respiratory Rate [Back] Respiratory Rate [R Groin] Blood Pressure Blood Pressure [Right] O2 Sat by Pulse 98 Oximetry 05/12/18 05/12/18 05/12/18 10:00 10:02 11:00 Temperature Pulse Rate 121 H Pulse Rate [ Anterior Bilateral Throughout] Respiratory 20 20 Rate Respiratory Rate [Abdomen] Respiratory Rate [Anterior Bilateral Throughout] Respiratory Rate [Back] Respiratory Rate [R Groin] Blood Pressure 141/80 Blood Pressure [Right] O2 Sat by Pulse Oximetry 05/12/18 05/12/18 11:48 12:16 Temperature 98 F Pulse Rate 102 H Pulse Rate [ Anterior Bilateral Throughout] Respiratory 18 20 Rate Respiratory Rate [Abdomen] Respiratory Rate [Anterior Bilateral Throughout] Respiratory Rate [Back] Respiratory Rate [R Groin] Blood Pressure Blood Pressure 137/70 [Right] O2 Sat by Pulse 97 Oximetry Constitutional: no acute distress, alert, other (chronically ill looking this middle aged CF, normocephalic, neurofibromatosis) Eyes: non-icteric ENT: oropharynx moist, other (Mallampati 2) Neck: supple, no lymphadenopathy, no JVD Effort: normal Ascultation: Bilateral: diminished breath sounds, rhonchi (scant in bases) Percussion: Bilateral: not dull Cardiovascular: regular rate and rhythm Gastrointestinal: normoactive bowel sounds, soft, tender (bhargav-op site), non- distended, other (Drain in place with non-bloody effluent) Integumentary: other ( neurofibromatous nodules over body) Extremities: no cyanosis, no edema, pink and warm, pulses normal Neurologic: normal mental status, non-focal exam, pupils equal and round, motor strength normal and Psychiatric: mood appropriate, affect normal CBC and BMP: 05/08/18 05:38 05/11/18 05:00 ABG, PT/INR, D-dimer: ABG POC ABG pH 7.367 (7.35-7.45) 04/19/18 00:19 POC ABG pCO2 36.8 (35-45) 04/19/18 00:19 POC ABG pO2 84 (80-105) 04/19/18 00:19 POC ABG HCO3 21.1 04/19/18 00:19 POC ABG Total CO2 22 04/19/18 00:19 POC ABG O2 Sat 96 04/19/18 00:19 PT/INR, D-dimer PT 15.3 Sec. (12.2-14.9) H 04/22/18 05:19 INR 1.17 (0.87-1.13) H 04/22/18 05:19 Abnormal lab findings: Abnormal Labs 04/18/18 04/18/18 04/18/18 14:30 14:30 14:30 WBC 18.6 H RBC Hgb Hct RDW Lymph % (Auto) [place] % (Auto) Lymph # Seg Neutrophils % Seg Neuts % (Manual) 79.0 H Lymphocytes % (Manual) 4.0 L Seg Neutrophils # Man 14.7 H Lymphocytes # (Manual) 0.7 L PT 16.3 H INR 1.27 H VBG pH Sodium 121 L Potassium 3.0 L Chloride 78.0 L Carbon Dioxide BUN Creatinine 0.5 L Glucose 110 H POC Glucose Lactic Acid Calcium Phosphorus Magnesium Total Bilirubin 1.30 H AST 42 H Total Protein Albumin 3.1 L Crossmatch 04/18/18 04/18/18 04/18/18 14:30 14:30 23:59 WBC RBC Hgb Hct RDW 15.8 H Lymph % (Auto) [place] % (Auto) Lymph # Seg Neutrophils % Seg Neuts % (Manual) 78.0 H Lymphocytes % (Manual) 6.0 L Seg Neutrophils # Man Lymphocytes # (Manual) 0.5 L PT INR VBG pH 7.439 H Sodium Potassium Chloride Carbon Dioxide BUN Creatinine Glucose POC Glucose Lactic Acid 3.60 H* Calcium Phosphorus Magnesium Total Bilirubin AST Total Protein Albumin Crossmatch 04/18/18 04/19/18 04/19/18 23:59 05:19 05:19 WBC 15.0 H RBC Hgb Hct RDW 15.3 H Lymph % (Auto) [place] % (Auto) Lymph # Seg Neutrophils % Seg Neuts % (Manual) Lymphocytes % (Manual) 5.0 L Seg Neutrophils # Man 8.3 H Lymphocytes # (Manual) 0.8 L PT INR VBG pH Sodium 130 L D 133 L Potassium 3.5 L 3.3 L Chloride Carbon Dioxide 20 L D BUN Creatinine 0.5 L 0.6 L Glucose 140 H 115 H POC Glucose Lactic Acid Calcium 7.5 L 7.4 L Phosphorus Magnesium Total Bilirubin AST Total Protein 4.4 L D 4.1 L Albumin 2.0 L 1.9 L Crossmatch 04/19/18 04/19/18 04/20/18 05:19 13:05 05:18 WBC RBC Hgb Hct RDW Lymph % (Auto) [place] % (Auto) Lymph # Seg Neutrophils % Seg Neuts % (Manual) Lymphocytes % (Manual) Seg Neutrophils # Man Lymphocytes # (Manual) PT 19.4 H 17.4 H INR 1.59 H 1.38 H VBG pH Sodium Potassium Chloride Carbon Dioxide BUN Creatinine Glucose POC Glucose Lactic Acid Calcium Phosphorus Magnesium Total Bilirubin AST Total Protein Albumin Crossmatch See Detail 04/20/18 04/20/18 04/21/18 13:47 13:47 04:52 WBC RBC 3.29 L 3.10 L Hgb 9.6 L 8.8 L Hct 28.1 L D 26.6 L RDW 15.3 H 15.4 H Lymph % (Auto) 5.6 L [place] % (Auto) Lymph # 0.4 L Seg Neutrophils % 87.3 H Seg Neuts % (Manual) Lymphocytes % (Manual) Seg Neutrophils # Man Lymphocytes # (Manual) PT INR VBG pH Sodium Potassium Chloride Carbon Dioxide BUN Creatinine 0.3 L Glucose 102 H POC Glucose Lactic Acid Calcium 8.0 L Phosphorus Magnesium Total Bilirubin AST Total Protein Albumin Crossmatch 04/21/18 04/22/18 04/22/18 04:52 05:19 05:19 WBC RBC 3.64 L Hgb Hct RDW Lymph % (Auto) 8.5 L [place] % (Auto) 9.9 H Lymph # 0.6 L Seg Neutrophils % 81.0 H Seg Neuts % (Manual) Lymphocytes % (Manual) Seg Neutrophils # Man Lymphocytes # (Manual) PT 15.3 H INR 1.17 H VBG pH Sodium Potassium 3.2 L Chloride Carbon Dioxide BUN Creatinine 0.3 L Glucose POC Glucose Lactic Acid Calcium 7.6 L Phosphorus Magnesium Total Bilirubin AST Total Protein Albumin Crossmatch 04/22/18 04/24/18 04/24/18 05:19 07:19 07:19 WBC RBC Hgb Hct RDW Lymph % (Auto) [place] % (Auto) Lymph # Seg Neutrophils % Seg Neuts % (Manual) Lymphocytes % (Manual) Seg Neutrophils # Man Lymphocytes # (Manual) PT INR VBG pH Sodium Potassium 3.4 L 2.9 L* Chloride Carbon Dioxide BUN Creatinine 0.3 L 0.3 L Glucose 103 H POC Glucose Lactic Acid Calcium 7.7 L 7.5 L Phosphorus Magnesium 1.60 L Total Bilirubin AST Total Protein 4.3 L Albumin 2.2 L Crossmatch 04/24/18 04/25/18 04/25/18 07:23 06:28 06:28 WBC RBC Hgb Hct RDW 15.3 H 15.9 H Lymph % (Auto) 10.1 L [place] % (Auto) Lymph # 0.8 L Seg Neutrophils % 80.6 H Seg Neuts % (Manual) Lymphocytes % (Manual) 9.0 L Seg Neutrophils # Man Lymphocytes # (Manual) 0.7 L PT INR VBG pH Sodium Potassium 3.0 L Chloride Carbon Dioxide BUN 5 L Creatinine 0.2 L Glucose 108 H POC Glucose Lactic Acid Calcium 7.4 L Phosphorus Magnesium Total Bilirubin AST Total Protein 4.6 L Albumin 2.5 L Crossmatch 04/25/18 04/26/18 04/26/18 06:28 05:45 05:45 WBC 11.9 H RBC Hgb Hct RDW 16.2 H Lymph % (Auto) [place] % (Auto) Lymph # Seg Neutrophils % Seg Neuts % (Manual) Lymphocytes % (Manual) Seg Neutrophils # Man Lymphocytes # (Manual) PT INR VBG pH Sodium Potassium Chloride Carbon Dioxide BUN 5 L Creatinine 0.2 L Glucose 119 H POC Glucose Lactic Acid Calcium 7.7 L Phosphorus 2.00 L 2.20 L Magnesium Total Bilirubin AST Total Protein Albumin Crossmatch 04/27/18 04/28/18 04/28/18 05:33 06:00 06:00 WBC 11.2 H RBC Hgb Hct RDW 16.0 H Lymph % (Auto) [place] % (Auto) Lymph # Seg Neutrophils % Seg Neuts % (Manual) 92.0 H Lymphocytes % (Manual) 5.0 L Seg Neutrophils # Man 10.3 H Lymphocytes # (Manual) 0.6 L PT INR VBG pH Sodium Potassium 3.4 L 3.1 L Chloride Carbon Dioxide BUN 6 L 4 L Creatinine 0.2 L 0.2 L Glucose 119 H POC Glucose Lactic Acid Calcium 7.5 L 7.1 L Phosphorus 2.00 L 2.10 L Magnesium 1.50 L Total Bilirubin AST Total Protein 4.3 L Albumin 2.1 L Crossmatch 04/29/18 04/29/18 04/29/18 05:18 05:18 17:49 WBC 12.0 H RBC Hgb Hct RDW 16.0 H Lymph % (Auto) [place] % (Auto) Lymph # Seg Neutrophils % Seg Neuts % (Manual) 87.0 H Lymphocytes % (Manual) 10.0 L Seg Neutrophils # Man 10.4 H Lymphocytes # (Manual) PT INR VBG pH Sodium 135 L Potassium Chloride Carbon Dioxide BUN Creatinine 0.2 L Glucose 120 H POC Glucose 108 H Lactic Acid Calcium 7.5 L Phosphorus Magnesium Total Bilirubin AST Total Protein Albumin Crossmatch 04/30/18 04/30/18 04/30/18 00:03 05:18 05:41 WBC RBC Hgb Hct RDW Lymph % (Auto) [place] % (Auto) Lymph # Seg Neutrophils % Seg Neuts % (Manual) Lymphocytes % (Manual) Seg Neutrophils # Man Lymphocytes # (Manual) PT INR VBG pH Sodium 133 L Potassium Chloride Carbon Dioxide BUN Creatinine 0.2 L Glucose 119 H POC Glucose 112 H 110 H Lactic Acid Calcium 7.5 L Phosphorus Magnesium Total Bilirubin AST Total Protein Albumin Crossmatch 04/30/18 05/01/18 05/01/18 05:41 00:39 04:45 WBC RBC 3.60 L Hgb Hct RDW 16.0 H Lymph % (Auto) [place] % (Auto) Lymph # Seg Neutrophils % Seg Neuts % (Manual) 88.0 H Lymphocytes % (Manual) 8.0 L Seg Neutrophils # Man Lymphocytes # (Manual) 0.7 L PT INR VBG pH Sodium 132 L Potassium Chloride Carbon Dioxide BUN Creatinine 0.2 L Glucose 101 H POC Glucose 119 H Lactic Acid Calcium 7.6 L Phosphorus Magnesium Total Bilirubin AST Total Protein Albumin Crossmatch 05/01/18 05/01/18 05/01/18 06:30 16:09 23:42 WBC RBC Hgb Hct RDW Lymph % (Auto) [place] % (Auto) Lymph # Seg Neutrophils % Seg Neuts % (Manual) Lymphocytes % (Manual) Seg Neutrophils # Man Lymphocytes # (Manual) PT INR VBG pH Sodium Potassium Chloride Carbon Dioxide BUN Creatinine Glucose POC Glucose 126 H 160 H 113 H Lactic Acid Calcium Phosphorus Magnesium Total Bilirubin AST Total Protein Albumin Crossmatch 05/02/18 05/02/18 05/02/18 04:55 06:41 11:53 WBC RBC Hgb Hct RDW Lymph % (Auto) [place] % (Auto) Lymph # Seg Neutrophils % Seg Neuts % (Manual) Lymphocytes % (Manual) Seg Neutrophils # Man Lymphocytes # (Manual) PT INR VBG pH Sodium 134 L Potassium Chloride Carbon Dioxide BUN Creatinine 0.2 L Glucose 113 H POC Glucose 146 H 113 H Lactic Acid Calcium 7.4 L Phosphorus Magnesium Total Bilirubin AST Total Protein Albumin Crossmatch 05/02/18 05/02/18 05/03/18 17:33 23:37 08:46 WBC RBC 3.36 L Hgb 9.7 L Hct 28.7 L RDW 16.3 H Lymph % (Auto) [place] % (Auto) 10.0 H Lymph # Seg Neutrophils % Seg Neuts % (Manual) Lymphocytes % (Manual) Seg Neutrophils # Man Lymphocytes # (Manual) PT INR VBG pH Sodium Potassium Chloride Carbon Dioxide BUN Creatinine Glucose POC Glucose 106 H 123 H Lactic Acid Calcium Phosphorus Magnesium Total Bilirubin AST Total Protein Albumin Crossmatch 05/03/18 05/03/18 05/04/18 11:54 12:15 06:59 WBC RBC Hgb Hct RDW Lymph % (Auto) [place] % (Auto) Lymph # Seg Neutrophils % Seg Neuts % (Manual) Lymphocytes % (Manual) Seg Neutrophils # Man Lymphocytes # (Manual) PT INR VBG pH Sodium 136 L Potassium Chloride Carbon Dioxide BUN Creatinine 0.2 L Glucose 131 H POC Glucose 109 H 161 H Lactic Acid Calcium 7.6 L Phosphorus Magnesium Total Bilirubin AST Total Protein Albumin Crossmatch 05/04/18 05/04/18 05/04/18 07:03 08:02 11:10 WBC RBC 3.52 L Hgb Hct 29.8 L RDW 16.2 H Lymph % (Auto) [place] % (Auto) 8.6 H Lymph # Seg Neutrophils % Seg Neuts % (Manual) Lymphocytes % (Manual) Seg Neutrophils # Man Lymphocytes # (Manual) PT INR VBG pH Sodium 135 L Potassium Chloride Carbon Dioxide BUN Creatinine 0.2 L Glucose 160 H POC Glucose 106 H Lactic Acid Calcium 7.7 L Phosphorus Magnesium Total Bilirubin AST Total Protein Albumin Crossmatch 05/04/18 05/05/18 05/05/18 23:38 11:28 16:55 WBC RBC Hgb Hct RDW Lymph % (Auto) [place] % (Auto) Lymph # Seg Neutrophils % Seg Neuts % (Manual) Lymphocytes % (Manual) Seg Neutrophils # Man Lymphocytes # (Manual) PT INR VBG pH Sodium Potassium Chloride Carbon Dioxide BUN Creatinine Glucose POC Glucose 121 H 119 H 108 H Lactic Acid Calcium Phosphorus Magnesium Total Bilirubin AST Total Protein Albumin Crossmatch 05/05/18 05/06/18 05/06/18 Unknown 05:35 16:40 WBC RBC Hgb Hct RDW Lymph % (Auto) [place] % (Auto) Lymph # Seg Neutrophils % Seg Neuts % (Manual) Lymphocytes % (Manual) Seg Neutrophils # Man Lymphocytes # (Manual) PT INR VBG pH Sodium 135 L 136 L Potassium Chloride 97.9 L Carbon Dioxide BUN Creatinine 0.2 L 0.2 L Glucose 119 H POC Glucose 133 H Lactic Acid Calcium 8.0 L 8.1 L Phosphorus Magnesium Total Bilirubin AST 46 H Total Protein 5.5 L Albumin 2.7 L Crossmatch 05/06/18 05/07/18 05/07/18 22:07 05:38 05:40 WBC RBC Hgb Hct RDW Lymph % (Auto) [place] % (Auto) Lymph # Seg Neutrophils % Seg Neuts % (Manual) Lymphocytes % (Manual) Seg Neutrophils # Man Lymphocytes # (Manual) PT INR VBG pH Sodium 133 L Potassium Chloride Carbon Dioxide BUN Creatinine 0.2 L Glucose POC Glucose 168 H 107 H Lactic Acid Calcium 8.2 L Phosphorus Magnesium Total Bilirubin AST Total Protein Albumin Crossmatch 05/07/18 05/07/18 05/08/18 11:56 18:04 05:38 WBC RBC Hgb Hct RDW 16.3 H Lymph % (Auto) [place] % (Auto) 7.7 H Lymph # Seg Neutrophils % Seg Neuts % (Manual) Lymphocytes % (Manual) Seg Neutrophils # Man Lymphocytes # (Manual) PT INR VBG pH Sodium Potassium Chloride Carbon Dioxide BUN Creatinine Glucose POC Glucose 145 H 125 H Lactic Acid Calcium Phosphorus Magnesium Total Bilirubin AST Total Protein Albumin Crossmatch 05/08/18 05/08/18 05/08/18 05:38 11:35 16:23 WBC RBC Hgb Hct RDW Lymph % (Auto) [place] % (Auto) Lymph # Seg Neutrophils % Seg Neuts % (Manual) Lymphocytes % (Manual) Seg Neutrophils # Man Lymphocytes # (Manual) PT INR VBG pH Sodium 135 L Potassium Chloride Carbon Dioxide BUN Creatinine 0.2 L Glucose POC Glucose 118 H 131 H Lactic Acid Calcium Phosphorus Magnesium Total Bilirubin AST Total Protein Albumin Crossmatch 05/08/18 05/09/18 05/09/18 21:40 05:46 06:15 WBC RBC Hgb Hct RDW Lymph % (Auto) [place] % (Auto) Lymph # Seg Neutrophils % Seg Neuts % (Manual) Lymphocytes % (Manual) Seg Neutrophils # Man Lymphocytes # (Manual) PT INR VBG pH Sodium 135 L Potassium Chloride 97.5 L Carbon Dioxide BUN Creatinine 0.2 L Glucose POC Glucose 110 H 115 H Lactic Acid Calcium Phosphorus Magnesium Total Bilirubin AST Total Protein Albumin Crossmatch 05/09/18 05/09/18 05/10/18 11:28 23:53 06:22 WBC RBC Hgb Hct RDW Lymph % (Auto) [place] % (Auto) Lymph # Seg Neutrophils % Seg Neuts % (Manual) Lymphocytes % (Manual) Seg Neutrophils # Man Lymphocytes # (Manual) PT INR VBG pH Sodium Potassium Chloride Carbon Dioxide BUN Creatinine Glucose POC Glucose 145 H 132 H 149 H Lactic Acid Calcium Phosphorus Magnesium Total Bilirubin AST Total Protein Albumin Crossmatch 05/10/18 05/10/18 05/11/18 16:14 23:24 05:00 WBC RBC Hgb Hct RDW Lymph % (Auto) [place] % (Auto) Lymph # Seg Neutrophils % Seg Neuts % (Manual) Lymphocytes % (Manual) Seg Neutrophils # Man Lymphocytes # (Manual) PT INR VBG pH Sodium Potassium Chloride Carbon Dioxide BUN Creatinine 0.2 L Glucose 113 H POC Glucose 119 H 119 H Lactic Acid Calcium Phosphorus Magnesium Total Bilirubin AST Total Protein Albumin Crossmatch 05/11/18 05/11/18 05/11/18 05:57 11:23 16:29 WBC RBC Hgb Hct RDW Lymph % (Auto) [place] % (Auto) Lymph # Seg Neutrophils % Seg Neuts % (Manual) Lymphocytes % (Manual) Seg Neutrophils # Man Lymphocytes # (Manual) PT INR VBG pH Sodium Potassium Chloride Carbon Dioxide BUN Creatinine Glucose POC Glucose 173 H 143 H 159 H Lactic Acid Calcium Phosphorus Magnesium Total Bilirubin AST Total Protein Albumin Crossmatch 05/12/18 05/12/18 05/12/18 00:47 06:23 11:21 WBC RBC Hgb Hct RDW Lymph % (Auto) [place] % (Auto) Lymph # Seg Neutrophils % Seg Neuts % (Manual) Lymphocytes % (Manual) Seg Neutrophils # Man Lymphocytes # (Manual) PT INR VBG pH Sodium Potassium Chloride Carbon Dioxide BUN Creatinine Glucose POC Glucose 139 H 136 H 116 H Lactic Acid Calcium Phosphorus Magnesium Total Bilirubin AST Total Protein Albumin Crossmatch Allied health notes reviewed: nursing
[2018-05-12] MEDS: XANAX PO PRN (13:58)
--- NOTE | 2018-05-12 14:04 | Progress Note ---
Assessment and Plan Assessment and plan: The patient is a 57-year-old female with hypertension, neurofibromatosis, hepatitis C, COPD, nicotine dependence presented to the emergency room on 04/18/18 with complaints of abdominal pain going on for [address] scan obtained in the emergency room revealed a ruptured appendix with associated intra-abdominal abscess. General surgery was consulted and the patient underwent an emergent exploratory laparotomy with evacuation of pelvic abscess. She was noted to have a gangrenous, perforated appendix eroding including into the small bowel. As per the op note, the abscess could not be drained as the entire abscess and inflammatory process had trapped the small bowel, which was mobilized and she underwent an ileocolic anastomosis. The patient went back to the OR on 04/25/18 for drain dislodgment. Surgical cultures growing ECOLI and beta hemolytic strep group C, ester albicans and enteroccocus faecium Sepsis Etiology secondary to gangrenous and perforated appendix causing intra- abdominal/pelvic abscess. Patient is status post exploratory laparotomy with appendectomy and evacuation of pelvic abscess. Now off antibiotics and noted ID signed off. No fever off antibiotics. Perforated appendix s/p exploratory lap Cont. TPN -Likely bed bug exterminator dislodged drain, s/p taken to OR , exploratory lap, irrigation of intraabd cavity and placement of sump drain on 04/25 Draining tube was not draing overnight but draining at the time of exam, surgery evaluated and will do CT abdomen in the morning OOB as tiffanie Awaiting repeat imaging Chronic hep C. Untreated. Outpatient follow-up. Accel Hypertension. Increase Cozaar to 100mg. Cont. Hydralazine prn. COPD. Compensated. Neurofibromatosis Tobacco abuse. Patient counseled on smoking cessation FOR 15 MINS, Patient verbalized understanding and will think about it. Disposition - Patient need LTACH placement after cleared by surgery. History Interval history: Patient seen and examined this am with nursing staff. she voices no new complaints. Drain with no significant output today Hospitalist Physical - Physical exam Narrative exam: VITAL SIGNS: Reviewed. GENERAL: The patient appeared well nourished and normally developed. Vital signs as documented. Temporal wasting noted HEAD: No signs of head trauma. EYES: Pupils are equal. Extraocular motions intact. EARS: Hearing grossly intact. MOUTH: Oropharynx is normal. NECK: No adenopathy, no JVD. CHEST: Chest with clear breath sounds bilaterally. No wheezes, rales, or rhonchi. CARDIAC: Regular rate and rhythm. S1 and S2, without murmurs, gallops, or rubs. VASCULAR: No Edema. Peripheral pulses normal and equal in all extremities. ABDOMEN: Soft, midly distended, some tenderness. bilateral drain noted hypoactive BS No rebound or guarding, and no masses palpated. MUSCULOSKELETAL: Good range of motion of all major joints. Extremities without clubbing, cyanosis or edema. NEUROLOGIC EXAM: Alert and oriented x 3. No focal sensory or strength deficits. Speech normal. Follows commands. PSYCHIATRIC: Mood normal. SKIN: neurofibromatosis lesions on face - Constitutional Vitals: Temp Pulse Resp BP Pulse Ox 98 F 102 H 20 137/70 97 05/12/18 11:48 05/12/18 11:48 05/12/18 13:58 05/12/18 11:48 05/12/18 11:48 General appearance: Present: no acute distress, cachectic, other (temporal wasting scaphoid abdomen.) Results - Labs CBC & Chem 7: 05/08/18 05:38 05/11/18 05:00 Labs: Laboratory Last Values WBC 4.9 K/mm3 (4.5-11.0) 05/08/18 05:38 RBC 3.82 M/mm3 (3.65-5.03) 05/08/18 05:38 Hgb 10.7 gm/dl (10.1-14.3) 05/08/18 05:38 Hct 32.3 % (30.3-42.9) 05/08/18 05:38 MCV 85 fl (79-97) 05/08/18 05:38 MCH 28 pg (28-32) 05/08/18 05:38 MCHC 33 % (30-34) 05/08/18 05:38 RDW 16.3 % (13.2-15.2) H 05/08/18 05:38 Plt Count 156 K/mm3 (140-440) 05/08/18 05:38 Lymph % (Auto) 29.1 % (13.4-35.0) 05/08/18 05:38 Mcdowell % (Auto) 7.7 % (0.0-7.3) H 05/08/18 05:38 Eos % (Auto) 3.2 % (0.0-4.3) 05/08/18 05:38 Baso % (Auto) 1.1 % (0.0-1.8) 05/08/18 05:38 Lymph # 1.4 K/mm3 (1.2-5.4) 05/08/18 05:38 Mcdowell # 0.4 K/mm3 (0.0-0.8) 05/08/18 05:38 Eos # 0.2 K/mm3 (0.0-0.4) 05/08/18 05:38 Baso # 0.1 K/mm3 (0.0-0.1) 05/08/18 05:38 Add Manual Diff Complete 04/30/18 05:41 Total Counted 100 04/30/18 05:41 Seg Neutrophils % 58.9 % (40.0-70.0) 05/08/18 05:38 Seg Neuts % (Manual) 88.0 % (40.0-70.0) H 04/30/18 05:41 Band Neutrophils % 1.0 % 04/30/18 05:41 Lymphocytes % (Manual) 8.0 % (13.4-35.0) L 04/30/18 05:41 Reactive Lymphs % (Man) 0 % 04/30/18 05:41 Monocytes % (Manual) 3.0 % (0.0-7.3) 04/30/18 05:41 Eosinophils % (Manual) 0 % (0.0-4.3) 04/30/18 05:41 Basophils % (Manual) 0 % (0.0-1.8) 04/30/18 05:41 Metamyelocytes % 0 % 04/30/18 05:41 Myelocytes % 0 % 04/30/18 05:41 Promyelocytes % 0 % 04/30/18 05:41 Blast Cells % 0 % 04/30/18 05:41 Nucleated RBC % Not Reportable 04/30/18 05:41 Seg Neutrophils # 2.9 K/mm3 (1.8-7.7) 05/08/18 05:38 Seg Neutrophils # Man 7.7 K/mm3 (1.8-7.7) 04/30/18 05:41 Band Neutrophils # 0.1 K/mm3 04/30/18 05:41 Lymphocytes # (Manual) 0.7 K/mm3 (1.2-5.4) L 04/30/18 05:41 Abs React Lymphs (Man) 0.0 K/mm3 04/30/18 05:41 Monocytes # (Manual) 0.3 K/mm3 (0.0-0.8) 04/30/18 05:41 Eosinophils # (Manual) 0.0 K/mm3 (0.0-0.4) 04/30/18 05:41 Basophils # (Manual) 0.0 K/mm3 (0.0-0.1) 04/30/18 05:41 Metamyelocytes # 0.0 K/mm3 04/30/18 05:41 Myelocytes # 0.0 K/mm3 04/30/18 05:41 Promyelocytes # 0.0 K/mm3 04/30/18 05:41 Blast Cells # 0.0 K/mm3 04/30/18 05:41 WBC Morphology Not Reportable 04/30/18 05:41 Hypersegmented Neuts Not Reportable 04/30/18 05:41 Hyposegmented Neuts Not Reportable 04/30/18 05:41 Hypogranular Neuts Not Reportable 04/30/18 05:41 Smudge Cells Not Reportable 04/30/18 05:41 Toxic Granulation Not Reportable 04/30/18 05:41 Toxic Vacuolation Not Reportable 04/30/18 05:41 Dohle Bodies Not Reportable 04/30/18 05:41 Pelger-Huet Anomaly Not Reportable 04/30/18 05:41 Nicole Rods Not Reportable 04/30/18 05:41 Platelet Estimate Appears normal 04/30/18 05:41 Clumped Platelets Not Reportable 04/30/18 05:41 Plt Clumps, EDTA Not Reportable 04/30/18 05:41 Large Platelets Not Reportable 04/30/18 05:41 Giant Platelets Not Reportable 04/30/18 05:41 Platelet Satelliting Not Reportable 04/30/18 05:41 Plt Morphology Comment Not Reportable 04/30/18 05:41 RBC Morphology Not Reportable 04/30/18 05:41 Dimorphic RBCs Not Reportable 04/30/18 05:41 Polychromasia Not Reportable 04/30/18 05:41 Hypochromasia 1+ 04/30/18 05:41 Poikilocytosis Not Reportable 04/30/18 05:41 Anisocytosis 1+ 04/30/18 05:41 Microcytosis Not Reportable 04/30/18 05:41 Macrocytosis Not Reportable 04/30/18 05:41 Spherocytes Not Reportable 04/30/18 05:41 Pappenheimer Bodies Not Reportable 04/30/18 05:41 Sickle Cells Not Reportable 04/30/18 05:41 Target Cells Not Reportable 04/30/18 05:41 Tear Drop Cells Not Reportable 04/30/18 05:41 Ovalocytes Few 04/30/18 05:41 Stomatocytes Few 04/29/18 05:18 Helmet Cells Not Reportable 04/30/18 05:41 Spann-War Bodies Not Reportable 04/30/18 05:41 [place] Rings Not Reportable 04/30/18 05:41 [place] Cells Not Reportable 04/30/18 05:41 Bite Cells Not Reportable 04/30/18 05:41 Crenated Cell Not Reportable 04/30/18 05:41 Elliptocytes Not Reportable 04/30/18 05:41 Acanthocytes (Spur) Not Reportable 04/30/18 05:41 Rouleaux Not Reportable 04/30/18 05:41 Hemoglobin C Crystals Not Reportable 04/30/18 05:41 Schistocytes Not Reportable 04/30/18 05:41 Malaria parasites Not Reportable 04/30/18 05:41 Hung Bodies Not Reportable 04/30/18 05:41 Hem Pathologist Commnt No 04/30/18 05:41 PT 15.3 Sec. (12.2-14.9) H 04/22/18 05:19 INR 1.17 (0.87-1.13) H 04/22/18 05:19 APTT 29.4 Sec. (24.2-36.6) 04/19/18 05:19 POC ABG pH 7.367 (7.35-7.45) 04/19/18 00:19 POC ABG pCO2 36.8 (35-45) 04/19/18 00:19 POC ABG pO2 84 (80-105) 04/19/18 00:19 POC ABG HCO3 21.1 04/19/18 00:19 POC ABG Total CO2 22 04/19/18 00:19 POC ABG O2 Sat 96 02/10/19 00:19 POC ABG Base Excess -4 04/19/18 00:19 VBG pH 7.439 (7.320-7.420) H 04/18/18 14:30 FiO2 32 % 04/19/18 00:19 Sodium 138 mmol/L (137-145) 05/11/18 05:00 Potassium 4.4 mmol/L (3.6-5.0) 05/11/18 05:00 Chloride 100.7 mmol/L (98-107) 05/11/18 05:00 Carbon Dioxide 27 mmol/L (22-30) 05/11/18 05:00 Anion Gap 15 mmol/L 05/11/18 05:00 BUN 16 mg/dL (7-17) 05/11/18 05:00 Creatinine 0.2 mg/dL (0.7-1.2) L 05/11/18 05:00 Estimated GFR > 60 ml/min 05/11/18 05:00 BUN/Creatinine Ratio 80 % 05/11/18 05:00 Glucose 113 mg/dL (65-100) H 05/11/18 05:00 POC Glucose 116 (70-105) H 05/12/18 11:21 Lactic Acid 0.90 mmol/L (0.7-2.0) 04/18/18 18:41 Calcium 8.4 mg/dL (8.4-10.2) 05/11/18 05:00 Phosphorus 3.60 mg/dL (2.5-4.5) 05/11/18 05:00 Magnesium 2.00 mg/dL (1.7-2.3) 05/11/18 05:00 Total Bilirubin 0.30 mg/dL (0.1-1.2) 05/05/18 Unknown AST 46 units/L (5-40) H 05/05/18 Unknown ALT 35 units/L (7-56) 05/05/18 Unknown Alkaline Phosphatase 110 units/L (35-129) 05/05/18 Unknown Total Protein 5.5 g/dL (6.3-8.2) L 05/05/18 Unknown Albumin 2.7 g/dL (3.9-5) L 05/05/18 Unknown Albumin/Globulin Ratio 1.0 % 05/05/18 Unknown Triglycerides 105 mg/dL (2-149) 05/06/18 05:35 Urine Color Yellow (Yellow) 04/20/18 13:35 Urine Turbidity Clear (Clear) 04/20/18 13:35 Urine pH 5.0 (5.0-7.0) 04/20/18 13:35 Ur Specific [place] 1.011 (1.003-1.030) 04/20/18 13:35 Urine Protein <15 mg/dl mg/dL (Negative) 04/20/18 13:35 Urine Glucose (UA) Neg mg/dL (Negative) 04/20/18 13:35 Urine Ketones 20 mg/dL (Negative) 04/20/18 13:35 Urine Blood Sm (Negative) 04/20/18 13:35 Urine Nitrite Neg (Negative) 04/20/18 13:35 Urine Bilirubin Neg (Negative) 04/20/18 13:35 Urine Urobilinogen 2.0 mg/dL (<2.0) 04/20/18 13:35 Ur Leukocyte Esterase Tr (Negative) 04/20/18 13:35 Urine WBC (Auto) 2.0 /HPF (0.0-6.0) 04/20/18 13:35 Urine RBC (Auto) 1.0 /HPF (0.0-6.0) 04/20/18 13:35 U Epithel Cells (Auto) 2.0 /HPF (0-13.0) 04/18/18 16:45 Urine Bacteria (Auto) 2+ /HPF (Negative) 04/18/18 16:45 Urine Mucus Few /HPF 04/20/18 13:35 Blood Type O POSITIVE 04/19/18 13:05 Antibody Screen Negative 04/19/18 13:05 Crossmatch See Detail 04/19/18 13:05 Nutrition/Malnutrition Assess - Dietary Evaluation Nutrition/Malnutrition Findings: Nutrition Notes Start: 04/24/18 09:13 Freq: Status: Active Protocol: Document 05/12/18 12:31 PAM (Rec: 05/12/18 12:40 [email or web address]) Co-Sign 05/12/18 12:31 LP Nutrition Notes Initial or Follow up Reassessment Current Diagnosis COPD Sepsis Hypertension Other Pertinent Diagnosis Perforated appendix s/p exp lap, Hep C Current Diet TPN at 75ml/hr Labs/Tests Reviewed Pertinent Medications Reviewed Height 5 ft 1 in Weight 40.4 kg [place] Body Weight (kg) 47.72 BMI 16.8 Subjective/Other Information Day 16 TPN. Observed TPN bag infusing at 75 ml/hr. Percent of energy/protein needs met: 100%/100% Burn Absent Trauma Absent #2 Nutrition Diagnosis Increased nutrient needs ( specify in comment below) Diagnosis Progress(for reassessment Continues documentation) #1 Nutrition Diagnosis Inadequate oral intake Diagnosis Progress(for reassessment Continues documentation) Is patient on ventilator? No Is Patient Ambulatory and/or Out of Bed No REE-([facility]-confined to bed) 1122.540 Kcal/Kg value to use for calculation 40 Approximate Energy Requirements Using 1616 kcal/Kg Calculation Used for Recommendations Kcal/kg Additional Notes Pro needs: 59-70 g/day (1.25-1 .5 g/kg previous BW) Fluid needs : 1 ml/kcal Nutrition Intervention Change Diet Order: TPN Nutrition Support: Continue TPN at 75 ml/hr: MVI, MTE Kcal 1,230 Protein (gm) 95 Carbohydrates (gm) 250 Fat (gm) 0 Fluid (mL) 1,800 Fiber (gm) 0 Goal #1 CPN to meet 90-100% energy and pro needs Goal #2 Wt gain/maintenance Anticipated Discharge Needs: Unable to determine at this time Follow-Up By: 05/13/18 Additional Comments Labs in AM: CMP, Triglycerides
[2018-05-12] MEDS ORDERED: TPN ADULT 1,800 ML IV SCH (20:00)
[2018-05-12] MEDS: REMERON PO SCH (22:02)
[2018-05-13] MEDS: DILAUDID IV PRN ×5 (00:01→22:09)
[2018-05-13] MEDS: XANAX PO PRN (01:44)
[2018-05-13] MEDS: NORCO 5/325 PO PRN ×4 (01:44→20:11)
[2018-05-13] MEDS: NEURONTIN PO SCH ×3 (07:42→20:14)
[2018-05-13 07:43] LABS: Alanine Aminotransferase 38 units/L (7-56); Albumin 3.5 g/dL (3.9-5); BUN/Creatinine Ratio 70; Blood Urea Nitrogen 14 mg/dL (7-17); Calcium 8.9 mg/dL (8.4-10.2); Hemolysis Index 0
[2018-05-13] MEDS: PROVENTIL IH SCH ×3 (08:32→20:06)
[2018-05-13] MEDS: PEPCID IV SCH ×2 (09:25→21:20)
[2018-05-13] MEDS: COZAAR PO SCH (09:25)
[2018-05-13] MEDS ORDERED: NACL 0.9% 1000 ML 1,000 ML IV ONE (09:49)
--- NOTE | 2018-05-13 09:49 | Progress Note ---
Assessment and Plan Assessment and plan: The patient is a 57-year-old female with hypertension, neurofibromatosis, hepatitis C, COPD, nicotine dependence presented to the emergency room on 04/18/18 with complaints of abdominal pain going on for [address] scan obtained in the emergency room revealed a ruptured appendix with associated intra-abdominal abscess. General surgery was consulted and the patient underwent an emergent exploratory laparotomy with evacuation of pelvic abscess. She was noted to have a gangrenous, perforated appendix eroding including into the small bowel. As per the op note, the abscess could not be drained as the entire abscess and inflammatory process had trapped the small bowel, which was mobilized and she underwent an ileocolic anastomosis. The patient went back to the OR on 04/25/18 for drain dislodgment. Surgical cultures growing ECOLI and beta hemolytic strep group C, ester albicans and enteroccocus faecium Per surgery considering plan to transfer to LTAC If this is the case, there are a lot of care issues to keep in mind * pt must continue on current TPN regimen and sandostatin * continue local wd care * If pt begins experiencing RLQ abd pain, Drain must be re-placed on low continues suction * repeat CT of abd & pelvis with PO contrast to be scheduled for Friday * pt needs to remain NPO except for ice chips, meds and popsicles until the results of her CT on Friday * Pt may have retention sutures removed after Friday Sepsis Etiology secondary to gangrenous and perforated appendix causing intra- abdominal/pelvic abscess. Patient is status post exploratory laparotomy with appendectomy and evacuation of pelvic abscess. Now off antibiotics and noted ID signed off. No fever off antibiotics. Perforated appendix s/p exploratory lap Cont. TPN -[employer] dislodged drain, s/p taken to OR , exploratory lap, irrigation of intraabd cavity and placement of sump drain on 04/25 Draining tube was not draing overnight but draining at the time of exam, surgery evaluated and will do CT abdomen in the morning OOB as tiffanie Awaiting repeat imaging Chronic hep C. Untreated. Outpatient follow-up. Accel Hypertension. Increase Cozaar to 100mg. Cont. Hydralazine prn. Diarrhea: Per pt since octeroitide was started. Will give some fluids to replenish insensible loss Tachycardia: secondary to dehydration and deconditioning. Fluids to be given and also start Low dose BB. COPD. Compensated. Neurofibromatosis Tobacco abuse. Patient counseled on smoking cessation FOR 15 MINS, Patient verbalized understanding and will think about it. Disposition - Patient need LTACH placement after cleared by surgery. History Interval history: Patient seen and examined this am with nursing staff. Reports diarrhea, no evidence of infectious. if dose not self resolve, will start on some imodium. she appears lethargic. Drain with no significant output today, was clamped. Hospitalist Physical - Physical exam Narrative exam: VITAL SIGNS: Reviewed. GENERAL: The patient appeared well nourished and normally developed. Vital signs as documented. Temporal wasting noted HEAD: No signs of head trauma. EYES: Pupils are equal. Extraocular motions intact. EARS: Hearing grossly intact. MOUTH: Oropharynx is normal. NECK: No adenopathy, no JVD. CHEST: Chest with clear breath sounds bilaterally. No wheezes, rales, or rhonchi. CARDIAC: Regular rate and rhythm. S1 and S2, without murmurs, gallops, or rubs. VASCULAR: No Edema. Peripheral pulses normal and equal in all extremities. ABDOMEN: Soft, midly distended, some tenderness. bilateral drain noted hypoactive BS No rebound or guarding, and no masses palpated. MUSCULOSKELETAL: Good range of motion of all major joints. Extremities without clubbing, cyanosis or edema. NEUROLOGIC EXAM: Alert and oriented x 3. No focal sensory or strength deficits. Speech normal. Follows commands. PSYCHIATRIC: Mood normal. SKIN: neurofibromatosis lesions on face - Constitutional Vitals: Temp Pulse Resp BP Pulse Ox 98.0 F 120 H 20 134/85 94 05/13/18 07:14 05/13/18 08:45 05/13/18 08:45 05/13/18 07:14 05/13/18 07:14 General appearance: Present: no acute distress, cachectic, other (temporal wasting scaphoid abdomen.) Results - Labs CBC & Chem 7: 05/08/18 05:38 05/13/18 Unknown Labs: Laboratory Last Values WBC 4.9 K/mm3 (4.5-11.0) 05/08/18 05:38 RBC 3.82 M/mm3 (3.65-5.03) 05/08/18 05:38 Hgb 10.7 gm/dl (10.1-14.3) 05/08/18 05:38 Hct 32.3 % (30.3-42.9) 05/08/18 05:38 MCV 85 fl (79-97) 05/08/18 05:38 MCH 28 pg (28-32) 05/08/18 05:38 MCHC 33 % (30-34) 05/08/18 05:38 RDW 16.3 % (13.2-15.2) H 05/08/18 05:38 Plt Count 156 K/mm3 (140-440) 05/08/18 05:38 Lymph % (Auto) 29.1 % (13.4-35.0) 05/08/18 05:38 Alexander % (Auto) 7.7 % (0.0-7.3) H 05/08/18 05:38 Eos % (Auto) 3.2 % (0.0-4.3) 05/08/18 05:38 Baso % (Auto) 1.1 % (0.0-1.8) 05/08/18 05:38 Lymph # 1.4 K/mm3 (1.2-5.4) 05/08/18 05:38 Alexander # 0.4 K/mm3 (0.0-0.8) 05/08/18 05:38 Eos # 0.2 K/mm3 (0.0-0.4) 05/08/18 05:38 Baso # 0.1 K/mm3 (0.0-0.1) 05/08/18 05:38 Add Manual Diff Complete 04/30/18 05:41 Total Counted 100 04/30/18 05:41 Seg Neutrophils % 58.9 % (40.0-70.0) 05/08/18 05:38 Seg Neuts % (Manual) 88.0 % (40.0-70.0) H 04/30/18 05:41 Band Neutrophils % 1.0 % 04/30/18 05:41 Lymphocytes % (Manual) 8.0 % (13.4-35.0) L 04/30/18 05:41 Reactive Lymphs % (Man) 0 % 04/30/18 05:41 Monocytes % (Manual) 3.0 % (0.0-7.3) 04/30/18 05:41 Eosinophils % (Manual) 0 % (0.0-4.3) 04/30/18 05:41 Basophils % (Manual) 0 % (0.0-1.8) 04/30/18 05:41 Metamyelocytes % 0 % 04/30/18 05:41 Myelocytes % 0 % 04/30/18 05:41 Promyelocytes % 0 % 04/30/18 05:41 Blast Cells % 0 % 04/30/18 05:41 Nucleated RBC % Not Reportable 04/30/18 05:41 Seg Neutrophils # 2.9 K/mm3 (1.8-7.7) 05/08/18 05:38 Seg Neutrophils # Man 7.7 K/mm3 (1.8-7.7) 04/30/18 05:41 Band Neutrophils # 0.1 K/mm3 04/30/18 05:41 Lymphocytes # (Manual) 0.7 K/mm3 (1.2-5.4) L 04/30/18 05:41 Abs React Lymphs (Man) 0.0 K/mm3 04/30/18 05:41 Monocytes # (Manual) 0.3 K/mm3 (0.0-0.8) 04/30/18 05:41 Eosinophils # (Manual) 0.0 K/mm3 (0.0-0.4) 04/30/18 05:41 Basophils # (Manual) 0.0 K/mm3 (0.0-0.1) 04/30/18 05:41 Metamyelocytes # 0.0 K/mm3 04/30/18 05:41 Myelocytes # 0.0 K/mm3 04/30/18 05:41 Promyelocytes # 0.0 K/mm3 04/30/18 05:41 Blast Cells # 0.0 K/mm3 04/30/18 05:41 WBC Morphology Not Reportable 04/30/18 05:41 Hypersegmented Neuts Not Reportable 04/30/18 05:41 Hyposegmented Neuts Not Reportable 04/30/18 05:41 Hypogranular Neuts Not Reportable 04/30/18 05:41 Smudge Cells Not Reportable 04/30/18 05:41 Toxic Granulation Not Reportable 04/30/18 05:41 Toxic Vacuolation Not Reportable 04/30/18 05:41 Dohle Bodies Not Reportable 04/30/18 05:41 Pelger-Huet Anomaly Not Reportable 04/30/18 05:41 Nicole Rods Not Reportable 04/30/18 05:41 Platelet Estimate Appears normal 04/30/18 05:41 Clumped Platelets Not Reportable 04/30/18 05:41 Plt Clumps, EDTA Not Reportable 04/30/18 05:41 Large Platelets Not Reportable 04/30/18 05:41 Giant Platelets Not Reportable 04/30/18 05:41 Platelet Satelliting Not Reportable 04/30/18 05:41 Plt Morphology Comment Not Reportable 04/30/18 05:41 RBC Morphology Not Reportable 04/30/18 05:41 Dimorphic RBCs Not Reportable 04/30/18 05:41 Polychromasia Not Reportable 04/30/18 05:41 Hypochromasia 1+ 04/30/18 05:41 Poikilocytosis Not Reportable 04/30/18 05:41 Anisocytosis 1+ 04/30/18 05:41 Microcytosis Not Reportable 04/30/18 05:41 Macrocytosis Not Reportable 04/30/18 05:41 Spherocytes Not Reportable 04/30/18 05:41 Pappenheimer Bodies Not Reportable 04/30/18 05:41 Sickle Cells Not Reportable 04/30/18 05:41 Target Cells Not Reportable 04/30/18 05:41 Tear Drop Cells Not Reportable 04/30/18 05:41 Ovalocytes Few 04/30/18 05:41 Stomatocytes Few 04/29/18 05:18 Helmet Cells Not Reportable 04/30/18 05:41 [place] Bodies Not Reportable 04/30/18 05:41 [place] Rings Not Reportable 04/30/18 05:41 [place] Cells Not Reportable 04/30/18 05:41 Bite Cells Not Reportable 04/30/18 05:41 Crenated Cell Not Reportable 04/30/18 05:41 Elliptocytes Not Reportable 04/30/18 05:41 Acanthocytes (Spur) Not Reportable 04/30/18 05:41 Rouleaux Not Reportable 04/30/18 05:41 Hemoglobin C Crystals Not Reportable 04/30/18 05:41 Schistocytes Not Reportable 04/30/18 05:41 Malaria parasites Not Reportable 04/30/18 05:41 Hung Bodies Not Reportable 04/30/18 05:41 Hem Pathologist Commnt No 04/30/18 05:41 PT 15.3 Sec. (12.2-14.9) H 04/22/18 05:19 INR 1.17 (0.87-1.13) H 04/22/18 05:19 APTT 29.4 Sec. (24.2-36.6) 04/19/18 05:19 POC ABG pH 7.367 (7.35-7.45) 04/19/18 00:19 POC ABG pCO2 36.8 (35-45) 04/19/18 00:19 POC ABG pO2 84 (80-105) 04/19/18 00:19 POC ABG HCO3 21.1 04/19/18 00:19 POC ABG Total CO2 22 04/19/18 00:19 POC ABG O2 Sat 96 04/19/18 00:19 POC ABG Base Excess -4 04/19/18 00:19 VBG pH 7.439 (7.320-7.420) H 04/18/18 14:30 FiO2 32 % 04/19/18 00:19 Sodium 136 mmol/L (137-145) L 05/13/18 Unknown Potassium 4.6 mmol/L (3.6-5.0) 05/13/18 Unknown Chloride 97.8 mmol/L (98-107) L 05/13/18 Unknown Carbon Dioxide 26 mmol/L (22-30) 05/13/18 Unknown Anion Gap 17 mmol/L 05/13/18 Unknown BUN 14 mg/dL (7-17) 05/13/18 Unknown Creatinine 0.2 mg/dL (0.7-1.2) L 05/13/18 Unknown Estimated GFR > 60 ml/min 05/13/18 Unknown BUN/Creatinine Ratio 70 % 05/13/18 Unknown Glucose 98 mg/dL (65-100) 05/13/18 Unknown POC Glucose 94 (70-105) 05/13/18 06:44 Lactic Acid 0.90 mmol/L (0.7-2.0) 04/18/18 18:41 Calcium 8.9 mg/dL (8.4-10.2) 05/13/18 Unknown Phosphorus 3.60 mg/dL (2.5-4.5) 05/11/18 05:00 Magnesium 2.00 mg/dL (1.7-2.3) 05/11/18 05:00 Total Bilirubin 0.60 mg/dL (0.1-1.2) 05/13/18 Unknown AST 41 units/L (5-40) H 05/13/18 Unknown ALT 38 units/L (7-56) 05/13/18 Unknown Alkaline Phosphatase 97 units/L (35-129) 05/13/18 Unknown Total Protein 6.5 g/dL (6.3-8.2) 05/13/18 Unknown Albumin 3.5 g/dL (3.9-5) L 05/13/18 Unknown Albumin/Globulin Ratio 1.2 % 05/13/18 Unknown Triglycerides 113 mg/dL (2-149) 05/13/18 Unknown Urine Color Yellow (Yellow) 04/20/18 13:35 Urine Turbidity Clear (Clear) 04/20/18 13:35 Urine pH 5.0 (5.0-7.0) 04/20/18 13:35 Ur Specific [place] 1.011 (1.003-1.030) 04/20/18 13:35 Urine Protein <15 mg/dl mg/dL (Negative) 04/20/18 13:35 Urine Glucose (UA) Neg mg/dL (Negative) 04/20/18 13:35 Urine Ketones 20 mg/dL (Negative) 04/20/18 13:35 Urine Blood Sm (Negative) 04/20/18 13:35 Urine Nitrite Neg (Negative) 04/20/18 13:35 Urine Bilirubin Neg (Negative) 04/20/18 13:35 Urine Urobilinogen 2.0 mg/dL (<2.0) 04/20/18 13:35 Ur Leukocyte Esterase Tr (Negative) 04/20/18 13:35 Urine WBC (Auto) 2.0 /HPF (0.0-6.0) 04/20/18 13:35 Urine RBC (Auto) 1.0 /HPF (0.0-6.0) 04/20/18 13:35 U Epithel Cells (Auto) 2.0 /HPF (0-13.0) 04/18/18 16:45 Urine Bacteria (Auto) 2+ /HPF (Negative) 04/18/18 16:45 Urine Mucus Few /HPF 04/20/18 13:35 Blood Type O POSITIVE 04/19/18 13:05 Antibody Screen Negative 04/19/18 13:05 Crossmatch See Detail 04/19/18 13:05 Nutrition/Malnutrition Assess - Dietary Evaluation Nutrition/Malnutrition Findings: Nutrition Notes Start: 04/24/18 09:13 Freq: Status: Active Protocol: Document 05/12/18 12:31 KH (Rec: 05/12/18 12:40 KH [email or web address]) Co-Sign 05/12/18 12:31 LP Nutrition Notes Initial or Follow up Reassessment Current Diagnosis COPD,Sepsis,Hypertension Other Pertinent Diagnosis Perforated appendix s/p exp lap, Hep C Current Diet TPN at 75ml/hr Labs/Tests Reviewed Pertinent Medications Reviewed Height 5 ft 1 in Weight 40.4 kg [place] Body Weight (kg) 47.72 BMI 16.8 Subjective/Other Information Day 16 TPN. Observed TPN bag infusing at 75 ml/hr. Percent of energy/protein needs met: 100%/100% Burn Absent Trauma Absent #2 Nutrition Diagnosis Increased nutrient needs ( specify in comment below) Diagnosis Progress(for reassessment Continues documentation) #1 Nutrition Diagnosis Inadequate oral intake Diagnosis Progress(for reassessment Continues documentation) Is patient on ventilator? No Is Patient Ambulatory and/or Out of Bed No REE-([place]-confined to bed) 1122.540 Kcal/Kg value to use for calculation 40 Approximate Energy Requirements Using 1616 kcal/Kg Calculation Used for Recommendations Kcal/kg Additional Notes Pro needs: 59-70 g/day (1.25-1 .5 g/kg previous BW) Fluid needs : 1 ml/kcal Nutrition Intervention Change Diet Order: TPN Nutrition Support: Continue TPN at 75 ml/hr: MVI, MTE Kcal 1,230 Protein (gm) 95 Carbohydrates (gm) 250 Fat (gm) 0 Fluid (mL) 1,800 Fiber (gm) 0 Goal #1 CPN to meet 90-100% energy and pro needs Goal #2 Wt gain/maintenance Anticipated Discharge Needs: Unable to determine at this time Follow-Up By: 05/13/18 Additional Comments Labs in AM: CMP, Triglycerides
--- NOTE | 2018-05-13 10:33 | Progress Note ---
Assessment and Plan Pt feeling tiffanie. tiffanie clamping of sump drain without incident Abd soft. incision clean and dry I understand that arrangements are being made to attempt to transfer pt to LTAC If this is the case, there are a lot of care issues to keep in mind * pt must continue on current TPN regimen and sandostatin * continue local wd care * If pt begins experiencing RLQ abd pain, Drain must be re-placed on low continues suction * repeat CT of abd & pelvis with PO contrast to be scheduled for Friday * pt needs to remain NPO except for ice chips, meds and popsicles until the results of her CT on Friday * Pt may have retention sutures removed after Friday Continue present care Selected Entries 05/13/18 05/13/18 07:14 08:45 Temperature 98.0 F Pulse Rate [ 120 H Anterior Bilateral Throughout] Respiratory 16 Rate Blood Pressure 134/85 Laboratory Tests 05/13/18 Unknown Sodium 136 L Potassium 4.6 Chloride 97.8 L Carbon Dioxide 26 BUN 14 Creatinine 0.2 L Total Bilirubin 0.60 AST 41 H ALT 38 Alkaline Phosphatase 97 Objective Vital Signs - 12hr 05/13/18 05/13/18 05/13/18 00:35 00:36 07:14 Temperature 97.6 F 98.0 F Pulse Rate 104 H 105 H 114 H Pulse Rate [ Anterior Bilateral Throughout] Respiratory 16 16 Rate Respiratory Rate [Anterior Bilateral Throughout] Blood Pressure 122/64 134/85 O2 Sat by Pulse 96 96 94 Oximetry 05/13/18 05/13/18 08:20 08:45 Temperature Pulse Rate Pulse Rate [ 124 H 120 H Anterior Bilateral Throughout] Respiratory Rate Respiratory 20 20 Rate [Anterior Bilateral Throughout] Blood Pressure O2 Sat by Pulse Oximetry - Labs 05/08/18 05:38 05/13/18 Unknown Diabetes panel 05/13/18 Range/Units Unknown Sodium 136 L (137-145) mmol/L Potassium 4.6 (3.6-5.0) mmol/L Chloride 97.8 L (98-107) mmol/L Carbon Dioxide 26 (22-30) mmol/L BUN 14 (7-17) mg/dL Creatinine 0.2 L (0.7-1.2) mg/dL Glucose 98 (65-100) mg/dL Calcium 8.9 (8.4-10.2) mg/dL AST 41 H (5-40) units/L ALT 38 (7-56) units/L Alkaline Phosphatase 97 (35-129) units/L Total Protein 6.5 (6.3-8.2) g/dL Albumin 3.5 L (3.9-5) g/dL Triglycerides 113 (2-149) mg/dL Calcium panel 05/13/18 Range/Units Unknown Calcium 8.9 (8.4-10.2) mg/dL Albumin 3.5 L (3.9-5) g/dL Pituitary panel 05/13/18 Range/Units Unknown Sodium 136 L (137-145) mmol/L Potassium 4.6 (3.6-5.0) mmol/L Chloride 97.8 L (98-107) mmol/L Carbon Dioxide 26 (22-30) mmol/L BUN 14 (7-17) mg/dL Creatinine 0.2 L (0.7-1.2) mg/dL Glucose 98 (65-100) mg/dL Calcium 8.9 (8.4-10.2) mg/dL Adrenal panel 05/13/18 Range/Units Unknown Sodium 136 L (137-145) mmol/L Potassium 4.6 (3.6-5.0) mmol/L Chloride 97.8 L (98-107) mmol/L Carbon Dioxide 26 (22-30) mmol/L BUN 14 (7-17) mg/dL Creatinine 0.2 L (0.7-1.2) mg/dL Glucose 98 (65-100) mg/dL Calcium 8.9 (8.4-10.2) mg/dL Total Bilirubin 0.60 (0.1-1.2) mg/dL AST 41 H (5-40) units/L ALT 38 (7-56) units/L Alkaline Phosphatase 97 (35-129) units/L Total Protein 6.5 (6.3-8.2) g/dL Albumin 3.5 L (3.9-5) g/dL
[2018-05-13] MEDS: LOPRESSOR PO SCH ×2 (11:52→21:20)
--- NOTE | 2018-05-13 13:12 | Progress Note ---
Assessment and Plan Patient awake and weak. Resting on room air at this time.O2 saturation 94%.No complaint of chest pain, shortness of breath or cough. - Patient Problems (1) Appendicitis with perforation Current Visit: Yes Status: Acute Plan to address problem: S/p resection of perforated appendex. (2) Sepsis Current Visit: Yes Status: Acute Qualifiers: Sepsis type: Escherichia coli Qualified Code(s): A41.51 - Sepsis due to Escherichia coli [E. coli] Plan to address problem: Resolved. Patient off the antibiotics. (3) Acute metabolic encephalopathy Current Visit: No Status: Acute Plan to address problem: Appears improved. Management as per primary care. (4) Marijuana abuse Current Visit: No Status: Acute Plan to address problem: Counselled not use marijuana. Subjective Date of service: 05/13/18 Principal diagnosis: Sepsis; Ex-lap appendectomy and evacuation of pelvic abscess; Peritonitis Interval history: Patient awake and weak. Resting on room air at this time.O2 saturation 94%.No complaint of chest pain, shortness of breath or cough. Objective Vital Signs - 12hr 05/13/18 05/13/18 05/13/18 07:14 08:20 08:45 Temperature 98.0 F Pulse Rate 114 H Pulse Rate [ 124 H 120 H Anterior Bilateral Throughout] Respiratory 16 Rate Respiratory 20 20 Rate [Anterior Bilateral Throughout] Blood Pressure 134/85 O2 Sat by Pulse 94 Oximetry Constitutional: no acute distress, alert, other (chronically ill looking this middle aged CF, normocephalic, neurofibromatosis) Eyes: non-icteric ENT: oropharynx moist, other (Mallampati 2) Neck: supple, no lymphadenopathy, no JVD Effort: normal Ascultation: Bilateral: diminished breath sounds, rhonchi (scant in bases) Percussion: Bilateral: not dull Cardiovascular: regular rate and rhythm Gastrointestinal: normoactive bowel sounds, soft, tender (bhargav-op site), non- distended, other (Drain in place with non-bloody effluent) Integumentary: other ( neurofibromatous nodules over body) Extremities: no cyanosis, no edema, pink and warm, pulses normal Neurologic: normal mental status, non-focal exam, pupils equal and round, motor strength normal and Psychiatric: mood appropriate, affect normal CBC and BMP: 05/08/18 05:38 05/13/18 Unknown ABG, PT/INR, D-dimer: ABG POC ABG pH 7.367 (7.35-7.45) 04/19/18 00:19 POC ABG pCO2 36.8 (35-45) 04/19/18 00:19 POC ABG pO2 84 (80-105) 04/19/18 00:19 POC ABG HCO3 21.1 04/19/18 00:19 POC ABG Total CO2 22 04/19/18 00:19 POC ABG O2 Sat 96 04/19/18 00:19 PT/INR, D-dimer PT 15.3 Sec. (12.2-14.9) H 04/22/18 05:19 INR 1.17 (0.87-1.13) H 04/22/18 05:19 Abnormal lab findings: Abnormal Labs 04/18/18 04/18/18 04/18/18 14:30 14:30 14:30 WBC 18.6 H RBC Hgb Hct RDW Lymph % (Auto) Orange % (Auto) Lymph # Seg Neutrophils % Seg Neuts % (Manual) 79.0 H Lymphocytes % (Manual) 4.0 L Seg Neutrophils # Man 14.7 H Lymphocytes # (Manual) 0.7 L PT 16.3 H INR 1.27 H VBG pH Sodium 121 L Potassium 3.0 L Chloride 78.0 L Carbon Dioxide BUN Creatinine 0.5 L Glucose 110 H POC Glucose Lactic Acid Calcium Phosphorus Magnesium Total Bilirubin 1.30 H AST 42 H Total Protein Albumin 3.1 L Crossmatch 04/18/18 04/18/18 04/18/18 14:30 14:30 23:59 WBC RBC Hgb Hct RDW 15.8 H Lymph % (Auto) Orange % (Auto) Lymph # Seg Neutrophils % Seg Neuts % (Manual) 78.0 H Lymphocytes % (Manual) 6.0 L Seg Neutrophils # Man Lymphocytes # (Manual) 0.5 L PT INR VBG pH 7.439 H Sodium Potassium Chloride Carbon Dioxide BUN Creatinine Glucose POC Glucose Lactic Acid 3.60 H* Calcium Phosphorus Magnesium Total Bilirubin AST Total Protein Albumin Crossmatch 04/18/18 04/19/18 04/19/18 23:59 05:19 05:19 WBC 15.0 H RBC Hgb Hct RDW 15.3 H Lymph % (Auto) Orange % (Auto) Lymph # Seg Neutrophils % Seg Neuts % (Manual) Lymphocytes % (Manual) 5.0 L Seg Neutrophils # Man 8.3 H Lymphocytes # (Manual) 0.8 L PT INR VBG pH Sodium 130 L D 133 L Potassium 3.5 L 3.3 L Chloride Carbon Dioxide 20 L D BUN Creatinine 0.5 L 0.6 L Glucose 140 H 115 H POC Glucose Lactic Acid Calcium 7.5 L 7.4 L Phosphorus Magnesium Total Bilirubin AST Total Protein 4.4 L D 4.1 L Albumin 2.0 L 1.9 L Crossmatch 04/19/18 04/19/18 04/20/18 05:19 13:05 05:18 WBC RBC Hgb Hct RDW Lymph % (Auto) Orange % (Auto) Lymph # Seg Neutrophils % Seg Neuts % (Manual) Lymphocytes % (Manual) Seg Neutrophils # Man Lymphocytes # (Manual) PT 19.4 H 17.4 H INR 1.59 H 1.38 H VBG pH Sodium Potassium Chloride Carbon Dioxide BUN Creatinine Glucose POC Glucose Lactic Acid Calcium Phosphorus Magnesium Total Bilirubin AST Total Protein Albumin Crossmatch See Detail 04/20/18 04/20/18 04/21/18 13:47 13:47 04:52 WBC RBC 3.29 L 3.10 L Hgb 9.6 L 8.8 L Hct 28.1 L D 26.6 L RDW 15.3 H 15.4 H Lymph % (Auto) 5.6 L Orange % (Auto) Lymph # 0.4 L Seg Neutrophils % 87.3 H Seg Neuts % (Manual) Lymphocytes % (Manual) Seg Neutrophils # Man Lymphocytes # (Manual) PT INR VBG pH Sodium Potassium Chloride Carbon Dioxide BUN Creatinine 0.3 L Glucose 102 H POC Glucose Lactic Acid Calcium 8.0 L Phosphorus Magnesium Total Bilirubin AST Total Protein Albumin Crossmatch 04/21/18 04/22/18 04/22/18 04:52 05:19 05:19 WBC RBC 3.64 L Hgb Hct RDW Lymph % (Auto) 8.5 L Orange % (Auto) 9.9 H Lymph # 0.6 L Seg Neutrophils % 81.0 H Seg Neuts % (Manual) Lymphocytes % (Manual) Seg Neutrophils # Man Lymphocytes # (Manual) PT 15.3 H INR 1.17 H VBG pH Sodium Potassium 3.2 L Chloride Carbon Dioxide BUN Creatinine 0.3 L Glucose POC Glucose Lactic Acid Calcium 7.6 L Phosphorus Magnesium Total Bilirubin AST Total Protein Albumin Crossmatch 04/22/18 04/24/18 04/24/18 05:19 07:19 07:19 WBC RBC Hgb Hct RDW Lymph % (Auto) Orange % (Auto) Lymph # Seg Neutrophils % Seg Neuts % (Manual) Lymphocytes % (Manual) Seg Neutrophils # Man Lymphocytes # (Manual) PT INR VBG pH Sodium Potassium 3.4 L 2.9 L* Chloride Carbon Dioxide BUN Creatinine 0.3 L 0.3 L Glucose 103 H POC Glucose Lactic Acid Calcium 7.7 L 7.5 L Phosphorus Magnesium 1.60 L Total Bilirubin AST Total Protein 4.3 L Albumin 2.2 L Crossmatch 04/24/18 04/25/18 04/25/18 07:23 06:28 06:28 WBC RBC Hgb Hct RDW 15.3 H 15.9 H Lymph % (Auto) 10.1 L Orange % (Auto) Lymph # 0.8 L Seg Neutrophils % 80.6 H Seg Neuts % (Manual) Lymphocytes % (Manual) 9.0 L Seg Neutrophils # Man Lymphocytes # (Manual) 0.7 L PT INR VBG pH Sodium Potassium 3.0 L Chloride Carbon Dioxide BUN 5 L Creatinine 0.2 L Glucose 108 H POC Glucose Lactic Acid Calcium 7.4 L Phosphorus Magnesium Total Bilirubin AST Total Protein 4.6 L Albumin 2.5 L Crossmatch 04/25/18 04/26/18 04/26/18 06:28 05:45 05:45 WBC 11.9 H RBC Hgb Hct RDW 16.2 H Lymph % (Auto) Orange % (Auto) Lymph # Seg Neutrophils % Seg Neuts % (Manual) Lymphocytes % (Manual) Seg Neutrophils # Man Lymphocytes # (Manual) PT INR VBG pH Sodium Potassium Chloride Carbon Dioxide BUN 5 L Creatinine 0.2 L Glucose 119 H POC Glucose Lactic Acid Calcium 7.7 L Phosphorus 2.00 L 2.20 L Magnesium Total Bilirubin AST Total Protein Albumin Crossmatch 04/27/18 04/28/18 04/28/18 05:33 06:00 06:00 WBC 11.2 H RBC Hgb Hct RDW 16.0 H Lymph % (Auto) Orange % (Auto) Lymph # Seg Neutrophils % Seg Neuts % (Manual) 92.0 H Lymphocytes % (Manual) 5.0 L Seg Neutrophils # Man 10.3 H Lymphocytes # (Manual) 0.6 L PT INR VBG pH Sodium Potassium 3.4 L 3.1 L Chloride Carbon Dioxide BUN 6 L 4 L Creatinine 0.2 L 0.2 L Glucose 119 H POC Glucose Lactic Acid Calcium 7.5 L 7.1 L Phosphorus 2.00 L 2.10 L Magnesium 1.50 L Total Bilirubin AST Total Protein 4.3 L Albumin 2.1 L Crossmatch 04/29/18 04/29/18 04/29/18 05:18 05:18 17:49 WBC 12.0 H RBC Hgb Hct RDW 16.0 H Lymph % (Auto) Orange % (Auto) Lymph # Seg Neutrophils % Seg Neuts % (Manual) 87.0 H Lymphocytes % (Manual) 10.0 L Seg Neutrophils # Man 10.4 H Lymphocytes # (Manual) PT INR VBG pH Sodium 135 L Potassium Chloride Carbon Dioxide BUN Creatinine 0.2 L Glucose 120 H POC Glucose 108 H Lactic Acid Calcium 7.5 L Phosphorus Magnesium Total Bilirubin AST Total Protein Albumin Crossmatch 04/30/18 04/30/18 04/30/18 00:03 05:18 05:41 WBC RBC Hgb Hct RDW Lymph % (Auto) Orange % (Auto) Lymph # Seg Neutrophils % Seg Neuts % (Manual) Lymphocytes % (Manual) Seg Neutrophils # Man Lymphocytes # (Manual) PT INR VBG pH Sodium 133 L Potassium Chloride Carbon Dioxide BUN Creatinine 0.2 L Glucose 119 H POC Glucose 112 H 110 H Lactic Acid Calcium 7.5 L Phosphorus Magnesium Total Bilirubin AST Total Protein Albumin Crossmatch 04/30/18 05/01/18 05/01/18 05:41 00:39 04:45 WBC RBC 3.60 L Hgb Hct RDW 16.0 H Lymph % (Auto) Orange % (Auto) Lymph # Seg Neutrophils % Seg Neuts % (Manual) 88.0 H Lymphocytes % (Manual) 8.0 L Seg Neutrophils # Man Lymphocytes # (Manual) 0.7 L PT INR VBG pH Sodium 132 L Potassium Chloride Carbon Dioxide BUN Creatinine 0.2 L Glucose 101 H POC Glucose 119 H Lactic Acid Calcium 7.6 L Phosphorus Magnesium Total Bilirubin AST Total Protein Albumin Crossmatch 05/01/18 05/01/18 05/01/18 06:30 16:09 23:42 WBC RBC Hgb Hct RDW Lymph % (Auto) Orange % (Auto) Lymph # Seg Neutrophils % Seg Neuts % (Manual) Lymphocytes % (Manual) Seg Neutrophils # Man Lymphocytes # (Manual) PT INR VBG pH Sodium Potassium Chloride Carbon Dioxide BUN Creatinine Glucose POC Glucose 126 H 160 H 113 H Lactic Acid Calcium Phosphorus Magnesium Total Bilirubin AST Total Protein Albumin Crossmatch 05/02/18 05/02/18 05/02/18 04:55 06:41 11:53 WBC RBC Hgb Hct RDW Lymph % (Auto) Orange % (Auto) Lymph # Seg Neutrophils % Seg Neuts % (Manual) Lymphocytes % (Manual) Seg Neutrophils # Man Lymphocytes # (Manual) PT INR VBG pH Sodium 134 L Potassium Chloride Carbon Dioxide BUN Creatinine 0.2 L Glucose 113 H POC Glucose 146 H 113 H Lactic Acid Calcium 7.4 L Phosphorus Magnesium Total Bilirubin AST Total Protein Albumin Crossmatch 05/02/18 05/02/18 05/03/18 17:33 23:37 08:46 WBC RBC 3.36 L Hgb 9.7 L Hct 28.7 L RDW 16.3 H Lymph % (Auto) Orange % (Auto) 10.0 H Lymph # Seg Neutrophils % Seg Neuts % (Manual) Lymphocytes % (Manual) Seg Neutrophils # Man Lymphocytes # (Manual) PT INR VBG pH Sodium Potassium Chloride Carbon Dioxide BUN Creatinine Glucose POC Glucose 106 H 123 H Lactic Acid Calcium Phosphorus Magnesium Total Bilirubin AST Total Protein Albumin Crossmatch 05/03/18 05/03/18 05/04/18 11:54 12:15 06:59 WBC RBC Hgb Hct RDW Lymph % (Auto) Orange % (Auto) Lymph # Seg Neutrophils % Seg Neuts % (Manual) Lymphocytes % (Manual) Seg Neutrophils # Man Lymphocytes # (Manual) PT INR VBG pH Sodium 136 L Potassium Chloride Carbon Dioxide BUN Creatinine 0.2 L Glucose 131 H POC Glucose 109 H 161 H Lactic Acid Calcium 7.6 L Phosphorus Magnesium Total Bilirubin AST Total Protein Albumin Crossmatch 05/04/18 05/04/18 05/04/18 07:03 08:02 11:10 WBC RBC 3.52 L Hgb Hct 29.8 L RDW 16.2 H Lymph % (Auto) Orange % (Auto) 8.6 H Lymph # Seg Neutrophils % Seg Neuts % (Manual) Lymphocytes % (Manual) Seg Neutrophils # Man Lymphocytes # (Manual) PT INR VBG pH Sodium 135 L Potassium Chloride Carbon Dioxide BUN Creatinine 0.2 L Glucose 160 H POC Glucose 106 H Lactic Acid Calcium 7.7 L Phosphorus Magnesium Total Bilirubin AST Total Protein Albumin Crossmatch 05/04/18 05/05/18 05/05/18 23:38 11:28 16:55 WBC RBC Hgb Hct RDW Lymph % (Auto) Orange % (Auto) Lymph # Seg Neutrophils % Seg Neuts % (Manual) Lymphocytes % (Manual) Seg Neutrophils # Man Lymphocytes # (Manual) PT INR VBG pH Sodium Potassium Chloride Carbon Dioxide BUN Creatinine Glucose POC Glucose 121 H 119 H 108 H Lactic Acid Calcium Phosphorus Magnesium Total Bilirubin AST Total Protein Albumin Crossmatch 05/05/18 05/06/18 05/06/18 Unknown 05:35 16:40 WBC RBC Hgb Hct RDW Lymph % (Auto) Orange % (Auto) Lymph # Seg Neutrophils % Seg Neuts % (Manual) Lymphocytes % (Manual) Seg Neutrophils # Man Lymphocytes # (Manual) PT INR VBG pH Sodium 135 L 136 L Potassium Chloride 97.9 L Carbon Dioxide BUN Creatinine 0.2 L 0.2 L Glucose 119 H POC Glucose 133 H Lactic Acid Calcium 8.0 L 8.1 L Phosphorus Magnesium Total Bilirubin AST 46 H Total Protein 5.5 L Albumin 2.7 L Crossmatch 05/06/18 05/07/18 05/07/18 22:07 05:38 05:40 WBC RBC Hgb Hct RDW Lymph % (Auto) Orange % (Auto) Lymph # Seg Neutrophils % Seg Neuts % (Manual) Lymphocytes % (Manual) Seg Neutrophils # Man Lymphocytes # (Manual) PT INR VBG pH Sodium 133 L Potassium Chloride Carbon Dioxide BUN Creatinine 0.2 L Glucose POC Glucose 168 H 107 H Lactic Acid Calcium 8.2 L Phosphorus Magnesium Total Bilirubin AST Total Protein Albumin Crossmatch 05/07/18 05/07/18 05/08/18 11:56 18:04 05:38 WBC RBC Hgb Hct RDW 16.3 H Lymph % (Auto) Orange % (Auto) 7.7 H Lymph # Seg Neutrophils % Seg Neuts % (Manual) Lymphocytes % (Manual) Seg Neutrophils # Man Lymphocytes # (Manual) PT INR VBG pH Sodium Potassium Chloride Carbon Dioxide BUN Creatinine Glucose POC Glucose 145 H 125 H Lactic Acid Calcium Phosphorus Magnesium Total Bilirubin AST Total Protein Albumin Crossmatch 05/08/18 05/08/18 05/08/18 05:38 11:35 16:23 WBC RBC Hgb Hct RDW Lymph % (Auto) Orange % (Auto) Lymph # Seg Neutrophils % Seg Neuts % (Manual) Lymphocytes % (Manual) Seg Neutrophils # Man Lymphocytes # (Manual) PT INR VBG pH Sodium 135 L Potassium Chloride Carbon Dioxide BUN Creatinine 0.2 L Glucose POC Glucose 118 H 131 H Lactic Acid Calcium Phosphorus Magnesium Total Bilirubin AST Total Protein Albumin Crossmatch 05/08/18 05/09/18 05/09/18 21:40 05:46 06:15 WBC RBC Hgb Hct RDW Lymph % (Auto) Orange % (Auto) Lymph # Seg Neutrophils % Seg Neuts % (Manual) Lymphocytes % (Manual) Seg Neutrophils # Man Lymphocytes # (Manual) PT INR VBG pH Sodium 135 L Potassium Chloride 97.5 L Carbon Dioxide BUN Creatinine 0.2 L Glucose POC Glucose 110 H 115 H Lactic Acid Calcium Phosphorus Magnesium Total Bilirubin AST Total Protein Albumin Crossmatch 05/09/18 05/09/18 05/10/18 11:28 23:53 06:22 WBC RBC Hgb Hct RDW Lymph % (Auto) Orange % (Auto) Lymph # Seg Neutrophils % Seg Neuts % (Manual) Lymphocytes % (Manual) Seg Neutrophils # Man Lymphocytes # (Manual) PT INR VBG pH Sodium Potassium Chloride Carbon Dioxide BUN Creatinine Glucose POC Glucose 145 H 132 H 149 H Lactic Acid Calcium Phosphorus Magnesium Total Bilirubin AST Total Protein Albumin Crossmatch 05/10/18 05/10/18 05/11/18 16:14 23:24 05:00 WBC RBC Hgb Hct RDW Lymph % (Auto) Orange % (Auto) Lymph # Seg Neutrophils % Seg Neuts % (Manual) Lymphocytes % (Manual) Seg Neutrophils # Man Lymphocytes # (Manual) PT INR VBG pH Sodium Potassium Chloride Carbon Dioxide BUN Creatinine 0.2 L Glucose 113 H POC Glucose 119 H 119 H Lactic Acid Calcium Phosphorus Magnesium Total Bilirubin AST Total Protein Albumin Crossmatch 05/11/18 05/11/18 05/11/18 05:57 11:23 16:29 WBC RBC Hgb Hct RDW Lymph % (Auto) Orange % (Auto) Lymph # Seg Neutrophils % Seg Neuts % (Manual) Lymphocytes % (Manual) Seg Neutrophils # Man Lymphocytes # (Manual) PT INR VBG pH Sodium Potassium Chloride Carbon Dioxide BUN Creatinine Glucose POC Glucose 173 H 143 H 159 H Lactic Acid Calcium Phosphorus Magnesium Total Bilirubin AST Total Protein Albumin Crossmatch 05/12/18 05/12/18 05/12/18 00:47 06:23 11:21 WBC RBC Hgb Hct RDW Lymph % (Auto) Orange % (Auto) Lymph # Seg Neutrophils % Seg Neuts % (Manual) Lymphocytes % (Manual) Seg Neutrophils # Man Lymphocytes # (Manual) PT INR VBG pH Sodium Potassium Chloride Carbon Dioxide BUN Creatinine Glucose POC Glucose 139 H 136 H 116 H Lactic Acid Calcium Phosphorus Magnesium Total Bilirubin AST Total Protein Albumin Crossmatch 05/12/18 05/12/18 05/12/18 17:19 17:22 22:22 WBC RBC Hgb Hct RDW Lymph % (Auto) Orange % (Auto) Lymph # Seg Neutrophils % Seg Neuts % (Manual) Lymphocytes % (Manual) Seg Neutrophils # Man Lymphocytes # (Manual) PT INR VBG pH Sodium Potassium Chloride Carbon Dioxide BUN Creatinine Glucose POC Glucose 329 H 116 H 124 H Lactic Acid Calcium Phosphorus Magnesium Total Bilirubin AST Total Protein Albumin Crossmatch 05/13/18 Unknown WBC RBC Hgb Hct RDW Lymph % (Auto) Orange % (Auto) Lymph # Seg Neutrophils % Seg Neuts % (Manual) Lymphocytes % (Manual) Seg Neutrophils # Man Lymphocytes # (Manual) PT INR VBG pH Sodium 136 L Potassium Chloride 97.8 L Carbon Dioxide BUN Creatinine 0.2 L Glucose POC Glucose Lactic Acid Calcium Phosphorus Magnesium Total Bilirubin AST 41 H Total Protein Albumin 3.5 L Crossmatch Allied health notes reviewed: nursing
[2018-05-13] MEDS: ZOFRAN IV PRN (16:42)
[2018-05-13] MEDS ORDERED: TPN ADULT 1,800 ML IV SCH (20:00)
[2018-05-13] MEDS ORDERED: INTRALIPID 20% 250 ML IV SCH (20:00)
[2018-05-13] MEDS: REMERON PO SCH (21:22)
[2018-05-14] MEDS: DILAUDID IV PRN ×6 (02:36→23:28)
[2018-05-14 06:53] LABS: Hematocrit 29.1 % (30.3-42.9); Hemoglobin 9.8 gm/dl (10.1-14.3); Mean Corpuscular HGB Conc 34 % (30-34); Mean Corpuscular Volume 83 fl (79-97); Platelet Count 163 K/mm3 (140-440); Red Blood Count 3.48 M/mm3 (3.65-5.03); Red Cell Distribution Width 15.6 % (13.2-15.2)
[2018-05-14 07:15] LABS: BUN/Creatinine Ratio 65; Blood Urea Nitrogen 13 mg/dL (7-17); Calcium 8.1 mg/dL (8.4-10.2); Hemolysis Index 5
[2018-05-14] MEDS: ZOFRAN IV PRN (08:13)
[2018-05-14] MEDS: NEURONTIN PO SCH ×3 (08:13→20:46)
[2018-05-14] MEDS: PROVENTIL IH SCH ×3 (08:51→20:58)
[2018-05-14] MEDS: COZAAR PO SCH (09:13)
[2018-05-14] MEDS: PEPCID IV SCH ×2 (09:13→22:34)
[2018-05-14] MEDS: LOPRESSOR PO SCH ×2 (09:14→22:34)
--- NOTE | 2018-05-14 09:17 | Progress Note ---
Assessment and Plan Pt feeling well without compl. RN noticed some drainage around drain site Abd soft, non tender stable will place drain back on low continuous suction and see if any drainage over the next 24 hrs. continue present care Selected Entries 05/14/18 05/14/18 04:35 09:13 Temperature 98.4 F Pulse Rate 112 H Blood Pressure 129/62 Laboratory Tests 05/14/18 05/14/18 06:40 06:40 WBC 4.5 Hgb 9.8 L Hct 29.1 L Sodium 137 Potassium 3.7 Chloride 102.2 Carbon Dioxide 26 BUN 13 Creatinine 0.2 L Objective Vital Signs - 12hr 05/13/18 05/14/18 05/14/18 21:20 00:07 02:36 Temperature 98.8 F Pulse Rate 109 H 98 H Respiratory 18 18 Rate Blood Pressure 114/58 120/65 O2 Sat by Pulse 95 Oximetry 05/14/18 05/14/18 05/14/18 04:35 06:28 07:50 Temperature 98.4 F Pulse Rate 105 H 111 H Respiratory 16 18 Rate Blood Pressure 122/66 O2 Sat by Pulse 97 96 Oximetry 05/14/18 09:13 Temperature Pulse Rate 112 H Respiratory Rate Blood Pressure 129/62 O2 Sat by Pulse Oximetry - Labs 05/14/18 06:40 05/14/18 06:40 Diabetes panel 05/14/18 Range/Units 06:40 Sodium 137 (137-145) mmol/L Potassium 3.7 (3.6-5.0) mmol/L Chloride 102.2 (98-107) mmol/L Carbon Dioxide 26 (22-30) mmol/L BUN 13 (7-17) mg/dL Creatinine 0.2 L (0.7-1.2) mg/dL Glucose 98 (65-100) mg/dL Calcium 8.1 L (8.4-10.2) mg/dL Calcium panel 05/14/18 Range/Units 06:40 Calcium 8.1 L (8.4-10.2) mg/dL Phosphorus 3.20 (2.5-4.5) mg/dL Pituitary panel 05/14/18 Range/Units 06:40 Sodium 137 (137-145) mmol/L Potassium 3.7 (3.6-5.0) mmol/L Chloride 102.2 (98-107) mmol/L Carbon Dioxide 26 (22-30) mmol/L BUN 13 (7-17) mg/dL Creatinine 0.2 L (0.7-1.2) mg/dL Glucose 98 (65-100) mg/dL Calcium 8.1 L (8.4-10.2) mg/dL Adrenal panel 05/14/18 Range/Units 06:40 Sodium 137 (137-145) mmol/L Potassium 3.7 (3.6-5.0) mmol/L Chloride 102.2 (98-107) mmol/L Carbon Dioxide 26 (22-30) mmol/L BUN 13 (7-17) mg/dL Creatinine 0.2 L (0.7-1.2) mg/dL Glucose 98 (65-100) mg/dL Calcium 8.1 L (8.4-10.2) mg/dL
--- NOTE | 2018-05-14 14:05 | Progress Note ---
Assessment and Plan Sepsis. Etiology secondary to gangrenous and perforated appendix causing intra- abdominal/pelvic abscess. status post exploratory laparotomy with appendectomy and evacuation of pelvic abscess. Intrabdominal sepsis/peritonitis Ruptured appendix with abdominal abscess Tobacco abuse disorder COPD Neurofibromatosis - continue supplemental oxygen to keep O2 sats > 90% (especially while asleep) - continue bronchodilators with pulmonary hygiene per RT - advance diet per surgeon - continue aspiration precautions - abdominal drain to suction (adjust per surgeon) - s/p antibiotics course - IV fluids per surgeon - VTE prophylaxis - PT/OT/Mobility, OOB to chair daily - continue incentive spirometry - continue nicotine withdrawal precautions - Smoking cessation counselling was done at the bedside again today - Analgesia, pain management - NPO for now, serial abdominal exams ... re-evaluate in am & prn Subjective Date of service: 05/14/18 Principal diagnosis: Sepsis; Ex-lap appendectomy and evacuation of pelvic ab scess; Peritonitis Interval history: Patient is seen today for: Sepsis; status post exploratory laparotomy with appendectomy and evacuation of pelvic abscess; Intrabdominal sepsis/peritonitis; Ruptured appendix with abdominal abscess Seen and examined at bedside; 24hour events reviewed; nursing and respiratory care staff consulted; no adverse overnight events reported to me; resting in bed; off oxygen at time of my exam; denies acute chest pains or SOB; abdominal drain to suction; No N/V/F/C Objective Vital Signs - 12hr 05/14/18 05/14/18 05/14/18 02:36 04:35 06:28 Temperature 98.4 F Pulse Rate 105 H Respiratory 18 16 18 Rate Blood Pressure 122/66 O2 Sat by Pulse 97 Oximetry 05/14/18 05/14/18 07:50 09:13 Temperature Pulse Rate 111 H 112 H Respiratory Rate Blood Pressure 129/62 O2 Sat by Pulse 96 Oximetry Constitutional: no acute distress, alert, other (chronically ill looking this middle aged CF, normocephalic) Eyes: non-icteric ENT: oropharynx moist, other (Mallampati 2) Neck: supple, no lymphadenopathy, no JVD Effort: mildly labored Ascultation: Bilateral: diminished breath sounds, rhonchi (scant in bases) Percussion: Bilateral: not dull Cardiovascular: regular rate and rhythm Gastrointestinal: normoactive bowel sounds, soft, tender (bhargav-op site), non- distended, other (Drain in place with non-bloody effluent) Integumentary: other (poor turgor; ? neurofibromatous nodules over body) Extremities: no cyanosis, no edema, pink and warm, pulses normal Neurologic: normal mental status, non-focal exam, pupils equal and round, motor strength normal and Psychiatric: mood appropriate, anxious CBC and BMP: 05/14/18 06:40 05/16/18 04:30 ABG, PT/INR, D-dimer: ABG POC ABG pH 7.367 (7.35-7.45) 04/19/18 00:19 POC ABG pCO2 36.8 (35-45) 04/19/18 00:19 POC ABG pO2 84 (80-105) 04/19/18 00:19 POC ABG HCO3 21.1 04/19/18 00:19 POC ABG Total CO2 22 04/19/18 00:19 POC ABG O2 Sat 96 04/19/18 00:19 PT/INR, D-dimer PT 15.3 Sec. (12.2-14.9) H 04/22/18 05:19 INR 1.17 (0.87-1.13) H 04/22/18 05:19 Abnormal lab findings: Abnormal Labs 04/18/18 04/18/18 04/18/18 14:30 14:30 14:30 WBC 18.6 H RBC Hgb Hct RDW Lymph % (Auto) [place] % (Auto) Lymph # Seg Neutrophils % Seg Neuts % (Manual) 79.0 H Lymphocytes % (Manual) 4.0 L Seg Neutrophils # Man 14.7 H Lymphocytes # (Manual) 0.7 L PT 16.3 H INR 1.27 H VBG pH Sodium 121 L Potassium 3.0 L Chloride 78.0 L Carbon Dioxide BUN Creatinine 0.5 L Glucose 110 H POC Glucose Lactic Acid Calcium Phosphorus Magnesium Total Bilirubin 1.30 H AST 42 H Total Protein Albumin 3.1 L Crossmatch 04/18/18 04/18/18 04/18/18 14:30 14:30 23:59 WBC RBC Hgb Hct RDW 15.8 H Lymph % (Auto) [place] % (Auto) Lymph # Seg Neutrophils % Seg Neuts % (Manual) 78.0 H Lymphocytes % (Manual) 6.0 L Seg Neutrophils # Man Lymphocytes # (Manual) 0.5 L PT INR VBG pH 7.439 H Sodium Potassium Chloride Carbon Dioxide BUN Creatinine Glucose POC Glucose Lactic Acid 3.60 H* Calcium Phosphorus Magnesium Total Bilirubin AST Total Protein Albumin Crossmatch 04/18/18 04/19/18 04/19/18 23:59 05:19 05:19 WBC 15.0 H RBC Hgb Hct RDW 15.3 H Lymph % (Auto) [place] % (Auto) Lymph # Seg Neutrophils % Seg Neuts % (Manual) Lymphocytes % (Manual) 5.0 L Seg Neutrophils # Man 8.3 H Lymphocytes # (Manual) 0.8 L PT INR VBG pH Sodium 130 L D 133 L Potassium 3.5 L 3.3 L Chloride Carbon Dioxide 20 L D BUN Creatinine 0.5 L 0.6 L Glucose 140 H 115 H POC Glucose Lactic Acid Calcium 7.5 L 7.4 L Phosphorus Magnesium Total Bilirubin AST Total Protein 4.4 L D 4.1 L Albumin 2.0 L 1.9 L Crossmatch 04/19/18 04/19/18 04/20/18 05:19 13:05 05:18 WBC RBC Hgb Hct RDW Lymph % (Auto) [place] % (Auto) Lymph # Seg Neutrophils % Seg Neuts % (Manual) Lymphocytes % (Manual) Seg Neutrophils # Man Lymphocytes # (Manual) PT 19.4 H 17.4 H INR 1.59 H 1.38 H VBG pH Sodium Potassium Chloride Carbon Dioxide BUN Creatinine Glucose POC Glucose Lactic Acid Calcium Phosphorus Magnesium Total Bilirubin AST Total Protein Albumin Crossmatch See Detail 04/20/18 04/20/18 04/21/18 13:47 13:47 04:52 WBC RBC 3.29 L 3.10 L Hgb 9.6 L 8.8 L Hct 28.1 L D 26.6 L RDW 15.3 H 15.4 H Lymph % (Auto) 5.[address] [place] % (Auto) Lymph # 0.4 L Seg Neutrophils % 87.3 H Seg Neuts % (Manual) Lymphocytes % (Manual) Seg Neutrophils # Man Lymphocytes # (Manual) PT INR VBG pH Sodium Potassium Chloride Carbon Dioxide BUN Creatinine 0.3 L Glucose 102 H POC Glucose Lactic Acid Calcium 8.0 L Phosphorus Magnesium Total Bilirubin AST Total Protein Albumin Crossmatch 04/21/18 04/22/18 04/22/18 04:52 05:19 05:19 WBC RBC 3.64 L Hgb Hct RDW Lymph % (Auto) 8.[address] [place] % (Auto) 9.9 H Lymph # 0.6 L Seg Neutrophils % 81.0 H Seg Neuts % (Manual) Lymphocytes % (Manual) Seg Neutrophils # Man Lymphocytes # (Manual) PT 15.3 H INR 1.17 H VBG pH Sodium Potassium 3.2 L Chloride Carbon Dioxide BUN Creatinine 0.3 L Glucose POC Glucose Lactic Acid Calcium 7.6 L Phosphorus Magnesium Total Bilirubin AST Total Protein Albumin Crossmatch 04/22/18 04/24/18 04/24/18 05:19 07:19 07:19 WBC RBC Hgb Hct RDW Lymph % (Auto) [place] % (Auto) Lymph # Seg Neutrophils % Seg Neuts % (Manual) Lymphocytes % (Manual) Seg Neutrophils # Man Lymphocytes # (Manual) PT INR VBG pH Sodium Potassium 3.4 L 2.9 L* Chloride Carbon Dioxide BUN Creatinine 0.3 L 0.3 L Glucose 103 H POC Glucose Lactic Acid Calcium 7.7 L 7.5 L Phosphorus Magnesium 1.60 L Total Bilirubin AST Total Protein 4.3 L Albumin 2.2 L Crossmatch 04/24/18 04/25/18 04/25/18 07:23 06:28 06:28 WBC RBC Hgb Hct RDW 15.3 H 15.9 H Lymph % (Auto) 10.[address] [place] % (Auto) Lymph # 0.8 L Seg Neutrophils % 80.6 H Seg Neuts % (Manual) Lymphocytes % (Manual) 9.0 L Seg Neutrophils # Man Lymphocytes # (Manual) 0.7 L PT INR VBG pH Sodium Potassium 3.0 L Chloride Carbon Dioxide BUN 5 L Creatinine 0.2 L Glucose 108 H POC Glucose Lactic Acid Calcium 7.4 L Phosphorus Magnesium Total Bilirubin AST Total Protein 4.6 L Albumin 2.5 L Crossmatch 04/25/18 04/26/18 04/26/18 06:28 05:45 05:45 WBC 11.9 H RBC Hgb Hct RDW 16.2 H Lymph % (Auto) [place] % (Auto) Lymph # Seg Neutrophils % Seg Neuts % (Manual) Lymphocytes % (Manual) Seg Neutrophils # Man Lymphocytes # (Manual) PT INR VBG pH Sodium Potassium Chloride Carbon Dioxide BUN 5 L Creatinine 0.2 L Glucose 119 H POC Glucose Lactic Acid Calcium 7.7 L Phosphorus 2.00 L 2.20 L Magnesium Total Bilirubin AST Total Protein Albumin Crossmatch 04/27/18 04/28/18 04/28/18 05:33 06:00 06:00 WBC 11.2 H RBC Hgb Hct RDW 16.0 H Lymph % (Auto) [place] % (Auto) Lymph # Seg Neutrophils % Seg Neuts % (Manual) 92.0 H Lymphocytes % (Manual) 5.0 L Seg Neutrophils # Man 10.3 H Lymphocytes # (Manual) 0.6 L PT INR VBG pH Sodium Potassium 3.4 L 3.1 L Chloride Carbon Dioxide BUN 6 L 4 L Creatinine 0.2 L 0.2 L Glucose 119 H POC Glucose Lactic Acid Calcium 7.5 L 7.1 L Phosphorus 2.00 L 2.10 L Magnesium 1.50 L Total Bilirubin AST Total Protein 4.3 L Albumin 2.1 L Crossmatch 04/29/18 04/29/18 04/29/18 05:18 05:18 17:49 WBC 12.0 H RBC Hgb Hct RDW 16.0 H Lymph % (Auto) [place] % (Auto) Lymph # Seg Neutrophils % Seg Neuts % (Manual) 87.0 H Lymphocytes % (Manual) 10.0 L Seg Neutrophils # Man 10.4 H Lymphocytes # (Manual) PT INR VBG pH Sodium 135 L Potassium Chloride Carbon Dioxide BUN Creatinine 0.2 L Glucose 120 H POC Glucose 108 H Lactic Acid Calcium 7.5 L Phosphorus Magnesium Total Bilirubin AST Total Protein Albumin Crossmatch 04/30/18 04/30/18 04/30/18 00:03 05:18 05:41 WBC RBC Hgb Hct RDW Lymph % (Auto) [place] % (Auto) Lymph # Seg Neutrophils % Seg Neuts % (Manual) Lymphocytes % (Manual) Seg Neutrophils # Man Lymphocytes # (Manual) PT INR VBG pH Sodium 133 L Potassium Chloride Carbon Dioxide BUN Creatinine 0.2 L Glucose 119 H POC Glucose 112 H 110 H Lactic Acid Calcium 7.5 L Phosphorus Magnesium Total Bilirubin AST Total Protein Albumin Crossmatch 04/30/18 05/01/18 05/01/18 05:41 00:39 04:45 WBC RBC 3.60 L Hgb Hct RDW 16.0 H Lymph % (Auto) [place] % (Auto) Lymph # Seg Neutrophils % Seg Neuts % (Manual) 88.0 H Lymphocytes % (Manual) 8.0 L Seg Neutrophils # Man Lymphocytes # (Manual) 0.7 L PT INR VBG pH Sodium 132 L Potassium Chloride Carbon Dioxide BUN Creatinine 0.2 L Glucose 101 H POC Glucose 119 H Lactic Acid Calcium 7.6 L Phosphorus Magnesium Total Bilirubin AST Total Protein Albumin Crossmatch 05/01/18 05/01/18 05/01/18 06:30 16:09 23:42 WBC RBC Hgb Hct RDW Lymph % (Auto) [place] % (Auto) Lymph # Seg Neutrophils % Seg Neuts % (Manual) Lymphocytes % (Manual) Seg Neutrophils # Man Lymphocytes # (Manual) PT INR VBG pH Sodium Potassium Chloride Carbon Dioxide BUN Creatinine Glucose POC Glucose 126 H 160 H 113 H Lactic Acid Calcium Phosphorus Magnesium Total Bilirubin AST Total Protein Albumin Crossmatch 05/02/18 05/02/18 05/02/18 04:55 06:41 11:53 WBC RBC Hgb Hct RDW Lymph % (Auto) [place] % (Auto) Lymph # Seg Neutrophils % Seg Neuts % (Manual) Lymphocytes % (Manual) Seg Neutrophils # Man Lymphocytes # (Manual) PT INR VBG pH Sodium 134 L Potassium Chloride Carbon Dioxide BUN Creatinine 0.2 L Glucose 113 H POC Glucose 146 H 113 H Lactic Acid Calcium 7.4 L Phosphorus Magnesium Total Bilirubin AST Total Protein Albumin Crossmatch 05/02/18 05/02/18 05/03/18 17:33 23:37 08:46 WBC RBC 3.36 L Hgb 9.7 L Hct 28.7 L RDW 16.3 H Lymph % (Auto) [place] % (Auto) 10.0 H Lymph # Seg Neutrophils % Seg Neuts % (Manual) Lymphocytes % (Manual) Seg Neutrophils # Man Lymphocytes # (Manual) PT INR VBG pH Sodium Potassium Chloride Carbon Dioxide BUN Creatinine Glucose POC Glucose 106 H 123 H Lactic Acid Calcium Phosphorus Magnesium Total Bilirubin AST Total Protein Albumin Crossmatch 05/03/18 05/03/18 05/04/18 11:54 12:15 06:59 WBC RBC Hgb Hct RDW Lymph % (Auto) [place] % (Auto) Lymph # Seg Neutrophils % Seg Neuts % (Manual) Lymphocytes % (Manual) Seg Neutrophils # Man Lymphocytes # (Manual) PT INR VBG pH Sodium 136 L Potassium Chloride Carbon Dioxide BUN Creatinine 0.2 L Glucose 131 H POC Glucose 109 H 161 H Lactic Acid Calcium 7.6 L Phosphorus Magnesium Total Bilirubin AST Total Protein Albumin Crossmatch 05/04/18 05/04/18 05/04/18 07:03 08:02 11:10 WBC RBC 3.52 L Hgb Hct 29.8 L RDW 16.2 H Lymph % (Auto) [place] % (Auto) 8.6 H Lymph # Seg Neutrophils % Seg Neuts % (Manual) Lymphocytes % (Manual) Seg Neutrophils # Man Lymphocytes # (Manual) PT INR VBG pH Sodium 135 L Potassium Chloride Carbon Dioxide BUN Creatinine 0.2 L Glucose 160 H POC Glucose 106 H Lactic Acid Calcium 7.7 L Phosphorus Magnesium Total Bilirubin AST Total Protein Albumin Crossmatch 05/04/18 05/05/18 05/05/18 23:38 11:28 16:55 WBC RBC Hgb Hct RDW Lymph % (Auto) [place] % (Auto) Lymph # Seg Neutrophils % Seg Neuts % (Manual) Lymphocytes % (Manual) Seg Neutrophils # Man Lymphocytes # (Manual) PT INR VBG pH Sodium Potassium Chloride Carbon Dioxide BUN Creatinine Glucose POC Glucose 121 H 119 H 108 H Lactic Acid Calcium Phosphorus Magnesium Total Bilirubin AST Total Protein Albumin Crossmatch 05/05/18 05/06/18 05/06/18 Unknown 05:35 16:40 WBC RBC Hgb Hct RDW Lymph % (Auto) [place] % (Auto) Lymph # Seg Neutrophils % Seg Neuts % (Manual) Lymphocytes % (Manual) Seg Neutrophils # Man Lymphocytes # (Manual) PT INR VBG pH Sodium 135 L 136 L Potassium Chloride 97.9 L Carbon Dioxide BUN Creatinine 0.2 L 0.2 L Glucose 119 H POC Glucose 133 H Lactic Acid Calcium 8.0 L 8.1 L Phosphorus Magnesium Total Bilirubin AST 46 H Total Protein 5.5 L Albumin 2.7 L Crossmatch 05/06/18 05/07/18 05/07/18 22:07 05:38 05:40 WBC RBC Hgb Hct RDW Lymph % (Auto) [place] % (Auto) Lymph # Seg Neutrophils % Seg Neuts % (Manual) Lymphocytes % (Manual) Seg Neutrophils # Man Lymphocytes # (Manual) PT INR VBG pH Sodium 133 L Potassium Chloride Carbon Dioxide BUN Creatinine 0.2 L Glucose POC Glucose 168 H 107 H Lactic Acid Calcium 8.2 L Phosphorus Magnesium Total Bilirubin AST Total Protein Albumin Crossmatch 05/07/18 05/07/18 05/08/18 11:56 18:04 05:38 WBC RBC Hgb Hct RDW 16.3 H Lymph % (Auto) [place] % (Auto) 7.7 H Lymph # Seg Neutrophils % Seg Neuts % (Manual) Lymphocytes % (Manual) Seg Neutrophils # Man Lymphocytes # (Manual) PT INR VBG pH Sodium Potassium Chloride Carbon Dioxide BUN Creatinine Glucose POC Glucose 145 H 125 H Lactic Acid Calcium Phosphorus Magnesium Total Bilirubin AST Total Protein Albumin Crossmatch 05/08/18 05/08/18 05/08/18 05:38 11:35 16:23 WBC RBC Hgb Hct RDW Lymph % (Auto) [place] % (Auto) Lymph # Seg Neutrophils % Seg Neuts % (Manual) Lymphocytes % (Manual) Seg Neutrophils # Man Lymphocytes # (Manual) PT INR VBG pH Sodium 135 L Potassium Chloride Carbon Dioxide BUN Creatinine 0.2 L Glucose POC Glucose 118 H 131 H Lactic Acid Calcium Phosphorus Magnesium Total Bilirubin AST Total Protein Albumin Crossmatch 05/08/18 05/09/18 05/09/18 21:40 05:46 06:15 WBC RBC Hgb Hct RDW Lymph % (Auto) [place] % (Auto) Lymph # Seg Neutrophils % Seg Neuts % (Manual) Lymphocytes % (Manual) Seg Neutrophils # Man Lymphocytes # (Manual) PT INR VBG pH Sodium 135 L Potassium Chloride 97.5 L Carbon Dioxide BUN Creatinine 0.2 L Glucose POC Glucose 110 H 115 H Lactic Acid Calcium Phosphorus Magnesium Total Bilirubin AST Total Protein Albumin Crossmatch 05/09/18 05/09/18 05/10/18 11:28 23:53 06:22 WBC RBC Hgb Hct RDW Lymph % (Auto) [place] % (Auto) Lymph # Seg Neutrophils % Seg Neuts % (Manual) Lymphocytes % (Manual) Seg Neutrophils # Man Lymphocytes # (Manual) PT INR VBG pH Sodium Potassium Chloride Carbon Dioxide BUN Creatinine Glucose POC Glucose 145 H 132 H 149 H Lactic Acid Calcium Phosphorus Magnesium Total Bilirubin AST Total Protein Albumin Crossmatch 05/10/18 05/10/18 05/11/18 16:14 23:24 05:00 WBC RBC Hgb Hct RDW Lymph % (Auto) [place] % (Auto) Lymph # Seg Neutrophils % Seg Neuts % (Manual) Lymphocytes % (Manual) Seg Neutrophils # Man Lymphocytes # (Manual) PT INR VBG pH Sodium Potassium Chloride Carbon Dioxide BUN Creatinine 0.2 L Glucose 113 H POC Glucose 119 H 119 H Lactic Acid Calcium Phosphorus Magnesium Total Bilirubin AST Total Protein Albumin Crossmatch 05/11/18 05/11/18 05/11/18 05:57 11:23 16:29 WBC RBC Hgb Hct RDW Lymph % (Auto) [place] % (Auto) Lymph # Seg Neutrophils % Seg Neuts % (Manual) Lymphocytes % (Manual) Seg Neutrophils # Man Lymphocytes # (Manual) PT INR VBG pH Sodium Potassium Chloride Carbon Dioxide BUN Creatinine Glucose POC Glucose 173 H 143 H 159 H Lactic Acid Calcium Phosphorus Magnesium Total Bilirubin AST Total Protein Albumin Crossmatch 05/12/18 05/12/18 05/12/18 00:47 06:23 11:21 WBC RBC Hgb Hct RDW Lymph % (Auto) [place] % (Auto) Lymph # Seg Neutrophils % Seg Neuts % (Manual) Lymphocytes % (Manual) Seg Neutrophils # Man Lymphocytes # (Manual) PT INR VBG pH Sodium Potassium Chloride Carbon Dioxide BUN Creatinine Glucose POC Glucose 139 H 136 H 116 H Lactic Acid Calcium Phosphorus Magnesium Total Bilirubin AST Total Protein Albumin Crossmatch 05/12/18 05/12/18 05/12/18 17:19 17:22 22:22 WBC RBC Hgb Hct RDW Lymph % (Auto) [place] % (Auto) Lymph # Seg Neutrophils % Seg Neuts % (Manual) Lymphocytes % (Manual) Seg Neutrophils # Man Lymphocytes # (Manual) PT INR VBG pH Sodium Potassium Chloride Carbon Dioxide BUN Creatinine Glucose POC Glucose 329 H 116 H 124 H Lactic Acid Calcium Phosphorus Magnesium Total Bilirubin AST Total Protein Albumin Crossmatch 05/13/18 05/13/18 05/13/18 18:35 22:25 Unknown WBC RBC Hgb Hct RDW Lymph % (Auto) [place] % (Auto) Lymph # Seg Neutrophils % Seg Neuts % (Manual) Lymphocytes % (Manual) Seg Neutrophils # Man Lymphocytes # (Manual) PT INR VBG pH Sodium 136 L Potassium Chloride 97.8 L Carbon Dioxide BUN Creatinine 0.2 L Glucose POC Glucose 137 H 106 H Lactic Acid Calcium Phosphorus Magnesium Total Bilirubin AST 41 H Total Protein Albumin 3.5 L Crossmatch 05/14/18 05/14/18 06:40 06:40 WBC RBC 3.48 L Hgb 9.8 L Hct 29.1 L RDW 15.6 H Lymph % (Auto) [place] % (Auto) Lymph # Seg Neutrophils % Seg Neuts % (Manual) Lymphocytes % (Manual) Seg Neutrophils # Man Lymphocytes # (Manual) PT INR VBG pH Sodium Potassium Chloride Carbon Dioxide BUN Creatinine 0.2 L Glucose POC Glucose Lactic Acid Calcium 8.1 L Phosphorus Magnesium Total Bilirubin AST Total Protein Albumin Crossmatch Allied health notes reviewed: nursing
[2018-05-14] MEDS: XANAX PO PRN ×2 (14:42→20:45)
--- NOTE | 2018-05-14 15:47 | Progress Note ---
Assessment and Plan Assessment and plan: The patient is a 57-year-old female with hypertension, neurofibromatosis, hepatitis C, COPD, nicotine dependence presented to the emergency room on 04/18/18 with complaints of abdominal pain going on for [address] scan obtained in the emergency room revealed a ruptured appendix with associated intra-abdominal abscess. General surgery was consulted and the patient underwent an emergent exploratory laparotomy with evacuation of pelvic abscess. She was noted to have a gangrenous, perforated appendix eroding including into the small bowel. As per the op note, the abscess could not be drained as the entire abscess and inflammatory process had trapped the small bowel, which was mobilized and she underwent an ileocolic anastomosis. The patient went back to the OR on 04/25/18 for drain dislodgment. Surgical cultures growing ECOLI and beta hemolytic strep group C, ester albicans and enteroccocus faecium Per surgery considering plan to transfer to LTAC If this is the case, there are a lot of care issues to keep in mind * pt must continue on current TPN regimen and sandostatin * continue local wd care * If pt begins experiencing RLQ abd pain, Drain must be re-placed on low continues suction * repeat CT of abd & pelvis with PO contrast to be scheduled for Friday * pt needs to remain NPO except for ice chips, meds and popsicles until the results of her CT on Friday * Pt may have retention sutures removed after Friday Sepsis Etiology secondary to gangrenous and perforated appendix causing intra- abdominal/pelvic abscess. Patient is status post exploratory laparotomy with appendectomy and evacuation of pelvic abscess. Now off antibiotics and noted ID signed off. No fever off antibiotics. Perforated appendix s/p exploratory lap Cont. TPN -Likely joint terminal attack controller dislodged drain, s/p taken to OR , exploratory lap, irrigation of intraabd cavity and placement of sump drain on 04/25 Draining tube was placed back on drainage due to nursing noting some drainage around there the site surgery evaluated and will do CT abdomen in the morning OOB as tiffanie Awaiting repeat imaging Chronic hep C. Untreated. Outpatient follow-up. Accel Hypertension. Increase Cozaar to 100mg. Cont. Hydralazine prn. Diarrhea: Per pt since octeroitide was started. Will give some fluids to replenish insensible loss Tachycardia: secondary to dehydration and deconditioning. Fluids to be given and also start Low dose BB. COPD. Compensated. Neurofibromatosis Tobacco abuse. Patient counseled on smoking cessation FOR 15 MINS, Patient verbalized understanding and will think about it. Disposition - Patient need LTACH placement after cleared by surgery. History Interval history: Patient seen and examined this am with nursing staff. Reports diarrhea, no evid ence of infectious.Diarrhea improving, drain placed back on suction Hospitalist Physical - Physical exam Narrative exam: VITAL SIGNS: Reviewed. GENERAL: The patient appeared well nourished and normally developed. Vital signs as documented. Temporal wasting noted HEAD: No signs of head trauma. EYES: Pupils are equal. Extraocular motions intact. EARS: Hearing grossly intact. MOUTH: Oropharynx is normal. NECK: No adenopathy, no JVD. CHEST: Chest with clear breath sounds bilaterally. No wheezes, rales, or rhonchi. CARDIAC: Regular rate and rhythm. S1 and S2, without murmurs, gallops, or rubs. VASCULAR: No Edema. Peripheral pulses normal and equal in all extremities. ABDOMEN: Soft, midly distended, some tenderness. bilateral drain noted hypoactive BS No rebound or guarding, and no masses palpated. MUSCULOSKELETAL: Good range of motion of all major joints. Extremities without clubbing, cyanosis or edema. NEUROLOGIC EXAM: Alert and oriented x 3. No focal sensory or strength deficits. Speech normal. Follows commands. PSYCHIATRIC: Mood normal. SKIN: neurofibromatosis lesions on face - Constitutional Vitals: Temp Pulse Resp BP Pulse Ox 98.4 F 112 H 18 129/62 96 05/14/18 04:35 05/14/18 09:13 05/14/18 06:28 05/14/18 09:13 05/14/18 07:50 General appearance: Present: no acute distress, cachectic, other (temporal wasting scaphoid abdomen.) Results - Labs CBC & Chem 7: 05/14/18 06:40 05/15/18 05:10 Labs: Laboratory Last Values WBC 4.5 K/mm3 (4.5-11.0) 05/14/18 06:40 RBC 3.48 M/mm3 (3.65-5.03) L 05/14/18 06:40 Hgb 9.8 gm/dl (10.1-14.3) L 05/14/18 06:40 Hct 29.1 % (30.3-42.9) L 05/14/18 06:40 MCV 83 fl (79-97) 05/14/18 06:40 MCH 28 pg (28-32) 05/14/18 06:40 MCHC 34 % (30-34) 05/14/18 06:40 RDW 15.6 % (13.2-15.2) H 05/14/18 06:40 Plt Count 163 K/mm3 (140-440) 05/14/18 06:40 Lymph % (Auto) 29.1 % (13.4-35.0) 05/08/18 05:38 [place] % (Auto) 7.7 % (0.0-7.3) H 05/08/18 05:38 Eos % (Auto) 3.2 % (0.0-4.3) 05/08/18 05:38 Baso % (Auto) 1.1 % (0.0-1.8) 05/08/18 05:38 Lymph # 1.4 K/mm3 (1.2-5.4) 05/08/18 05:38 [place] # 0.4 K/mm3 (0.0-0.8) 05/08/18 05:38 Eos # 0.2 K/mm3 (0.0-0.4) 05/08/18 05:38 Baso # 0.1 K/mm3 (0.0-0.1) 05/08/18 05:38 Add Manual Diff Complete 04/30/18 05:41 Total Counted 100 04/30/18 05:41 Seg Neutrophils % 58.9 % (40.0-70.0) 05/08/18 05:38 Seg Neuts % (Manual) 88.0 % (40.0-70.0) H 04/30/18 05:41 Band Neutrophils % 1.0 % 04/30/18 05:41 Lymphocytes % (Manual) 8.0 % (13.4-35.0) L 04/30/18 05:41 Reactive Lymphs % (Man) 0 % 04/30/18 05:41 Monocytes % (Manual) 3.0 % (0.0-7.3) 04/30/18 05:41 Eosinophils % (Manual) 0 % (0.0-4.3) 04/30/18 05:41 Basophils % (Manual) 0 % (0.0-1.8) 04/30/18 05:41 Metamyelocytes % 0 % 04/30/18 05:41 Myelocytes % 0 % 04/30/18 05:41 Promyelocytes % 0 % 04/30/18 05:41 Blast Cells % 0 % 04/30/18 05:41 Nucleated RBC % Not Reportable 04/30/18 05:41 Seg Neutrophils # 2.9 K/mm3 (1.8-7.7) 05/08/18 05:38 Seg Neutrophils # Man 7.7 K/mm3 (1.8-7.7) 04/30/18 05:41 Band Neutrophils # 0.1 K/mm3 04/30/18 05:41 Lymphocytes # (Manual) 0.7 K/mm3 (1.2-5.4) L 04/30/18 05:41 Abs React Lymphs (Man) 0.0 K/mm3 04/30/18 05:41 Monocytes # (Manual) 0.3 K/mm3 (0.0-0.8) 04/30/18 05:41 Eosinophils # (Manual) 0.0 K/mm3 (0.0-0.4) 04/30/18 05:41 Basophils # (Manual) 0.0 K/mm3 (0.0-0.1) 04/30/18 05:41 Metamyelocytes # 0.0 K/mm3 04/30/18 05:41 Myelocytes # 0.0 K/mm3 04/30/18 05:41 Promyelocytes # 0.0 K/mm3 04/30/18 05:41 Blast Cells # 0.0 K/mm3 04/30/18 05:41 WBC Morphology Not Reportable 04/30/18 05:41 Hypersegmented Neuts Not Reportable 04/30/18 05:41 Hyposegmented Neuts Not Reportable 04/30/18 05:41 Hypogranular Neuts Not Reportable 04/30/18 05:41 Smudge Cells Not Reportable 04/30/18 05:41 Toxic Granulation Not Reportable 04/30/18 05:41 Toxic Vacuolation Not Reportable 04/30/18 05:41 Dohle Bodies Not Reportable 04/30/18 05:41 Pelger-Huet Anomaly Not Reportable 04/30/18 05:41 Nicole Rods Not Reportable 04/30/18 05:41 Platelet Estimate Appears normal 04/30/18 05:41 Clumped Platelets Not Reportable 04/30/18 05:41 Plt Clumps, EDTA Not Reportable 04/30/18 05:41 Large Platelets Not Reportable 04/30/18 05:41 Giant Platelets Not Reportable 04/30/18 05:41 Platelet Satelliting Not Reportable 04/30/18 05:41 Plt Morphology Comment Not Reportable 04/30/18 05:41 RBC Morphology Not Reportable 04/30/18 05:41 Dimorphic RBCs Not Reportable 04/30/18 05:41 Polychromasia Not Reportable 04/30/18 05:41 Hypochromasia 1+ 04/30/18 05:41 Poikilocytosis Not Reportable 04/30/18 05:41 Anisocytosis 1+ 04/30/18 05:41 Microcytosis Not Reportable 04/30/18 05:41 Macrocytosis Not Reportable 04/30/18 05:41 Spherocytes Not Reportable 04/30/18 05:41 Pappenheimer Bodies Not Reportable 04/30/18 05:41 Sickle Cells Not Reportable 04/30/18 05:41 Target Cells Not Reportable 04/30/18 05:41 Tear Drop Cells Not Reportable 04/30/18 05:41 Ovalocytes Few 04/30/18 05:41 Stomatocytes Few 04/29/18 05:18 Helmet Cells Not Reportable 04/30/18 05:41 Spann-Smiley Bodies Not Reportable 04/30/18 05:41 Stella Rings Not Reportable 04/30/18 05:41 Philip Cells Not Reportable 04/30/18 05:41 Bite Cells Not Reportable 04/30/18 05:41 Crenated Cell Not Reportable 04/30/18 05:41 Elliptocytes Not Reportable 04/30/18 05:41 Acanthocytes (Spur) Not Reportable 04/30/18 05:41 Rouleaux Not Reportable 04/30/18 05:41 Hemoglobin C Crystals Not Reportable 04/30/18 05:41 Schistocytes Not Reportable 04/30/18 05:41 Malaria parasites Not Reportable 04/30/18 05:41 Hung Bodies Not Reportable 04/30/18 05:41 Hem Pathologist Commnt No 04/30/18 05:41 PT 15.3 Sec. (12.2-14.9) H 04/22/18 05:19 INR 1.17 (0.87-1.13) H 04/22/18 05:19 APTT 29.4 Sec. (24.2-36.6) 04/19/18 05:19 POC ABG pH 7.367 (7.35-7.45) 04/19/18 00:19 POC ABG pCO2 36.8 (35-45) 04/19/18 00:19 POC ABG pO2 84 (80-105) 04/19/18 00:19 POC ABG HCO3 21.1 04/19/18 00:19 POC ABG Total CO2 22 04/19/18 00:19 POC ABG O2 Sat 96 04/19/18 00:19 POC ABG Base Excess -4 04/19/18 00:19 VBG pH 7.439 (7.320-7.420) H 04/18/18 14:30 FiO2 32 % 04/19/18 00:19 Sodium 137 mmol/L (137-145) 05/14/18 06:40 Potassium 3.7 mmol/L (3.6-5.0) 05/14/18 06:40 Chloride 102.2 mmol/L (98-107) 05/14/18 06:40 Carbon Dioxide 26 mmol/L (22-30) 05/14/18 06:40 Anion Gap 13 mmol/L 05/14/18 06:40 BUN 13 mg/dL (7-17) 05/14/18 06:40 Creatinine 0.2 mg/dL (0.7-1.2) L 05/14/18 06:40 Estimated GFR > 60 ml/min 05/14/18 06:40 BUN/Creatinine Ratio 65 % 05/14/18 06:40 Glucose 98 mg/dL (65-100) 05/14/18 06:40 POC Glucose 102 (70-105) 05/14/18 06:24 Lactic Acid 0.90 mmol/L (0.7-2.0) 04/18/18 18:41 Calcium 8.1 mg/dL (8.4-10.2) L 05/14/18 06:40 Phosphorus 3.20 mg/dL (2.5-4.5) 05/14/18 06:40 Magnesium 1.90 mg/dL (1.7-2.3) 05/14/18 06:40 Total Bilirubin 0.60 mg/dL (0.1-1.2) 05/13/18 Unknown AST 41 units/L (5-40) H 05/13/18 Unknown ALT 38 units/L (7-56) 05/13/18 Unknown Alkaline Phosphatase 97 units/L (35-129) 05/13/18 Unknown Total Protein 6.5 g/dL (6.3-8.2) 05/13/18 Unknown Albumin 3.5 g/dL (3.9-5) L 05/13/18 Unknown Albumin/Globulin Ratio 1.2 % 05/13/18 Unknown Triglycerides 113 mg/dL (2-149) 05/13/18 Unknown Urine Color Yellow (Yellow) 04/20/18 13:35 Urine Turbidity Clear (Clear) 04/20/18 13:35 Urine pH 5.0 (5.0-7.0) 04/20/18 13:35 Ur Specific [place] 1.011 (1.003-1.030) 04/20/18 13:35 Urine Protein <15 mg/dl mg/dL (Negative) 04/20/18 13:35 Urine Glucose (UA) Neg mg/dL (Negative) 04/20/18 13:35 Urine Ketones 20 mg/dL (Negative) 04/20/18 13:35 Urine Blood Sm (Negative) 04/20/18 13:35 Urine Nitrite Neg (Negative) 04/20/18 13:35 Urine Bilirubin Neg (Negative) 04/20/18 13:35 Urine Urobilinogen 2.0 mg/dL (<2.0) 04/20/18 13:35 Ur Leukocyte Esterase Tr (Negative) 04/20/18 13:35 Urine WBC (Auto) 2.0 /HPF (0.0-6.0) 04/20/18 13:35 Urine RBC (Auto) 1.0 /HPF (0.0-6.0) 04/20/18 13:35 U Epithel Cells (Auto) 2.0 /HPF (0-13.0) 04/18/18 16:45 Urine Bacteria (Auto) 2+ /HPF (Negative) 04/18/18 16:45 Urine Mucus Few /HPF 04/20/18 13:35 Blood Type O POSITIVE 04/19/18 13:05 Antibody Screen Negative 04/19/18 13:05 Crossmatch See Detail 04/19/18 13:05 Nutrition/Malnutrition Assess - Dietary Evaluation Nutrition/Malnutrition Findings: Nutrition Notes Start: 04/24/18 09:13 Freq: Status: Active Protocol: Document 05/14/18 12:46 PAM (Rec: 05/14/18 12:52 PAM [email or web address]) Co-Sign 05/14/18 12:46 LP Nutrition Notes Initial or Follow up Reassessment Current Diagnosis COPD,Sepsis,Hypertension Other Pertinent Diagnosis Perforated appendix s/p exp lap, Hep C Current Diet TPN at 75ml/hr Labs/Tests Cr: 0.2 Ca: 8.1 Pertinent Medications Reviewed Height 5 ft 1 in Weight 40.4 kg [place] Body Weight (kg) 47.72 BMI 16.8 Subjective/Other Information Day 18 TPN. Observed TPN bag infusing at 75 ml/hr. Still could not get acurate new wt. for pt. Percent of energy/protein needs met: 100%/100% Burn Absent Trauma Absent #2 Nutrition Diagnosis Increased nutrient needs ( specify in comment below) Diagnosis Progress(for reassessment Continues documentation) #1 Nutrition Diagnosis Inadequate oral intake Diagnosis Progress(for reassessment Continues documentation) Is patient on ventilator? No Is Patient Ambulatory and/or Out of Bed No REE-([facility]-confined to bed) 1122.540 Kcal/Kg value to use for calculation 40 Approximate Energy Requirements Using 1616 kcal/Kg Calculation Used for Recommendations Kcal/kg Additional Notes Pro needs: 59-70 g/day (1.25-1 .5 g/kg previous BW of 42.1 kg ) Fluid needs : 1 ml/kcal Nutrition Intervention Change Diet Order: TPN Nutrition Support: Continue TPN at 75 ml/hr: MVI, MTE, Ca 15 mEq Kcal 1,315 Protein (gm) 95 Carbohydrates (gm) 275 Fat (gm) 0 Fluid (mL) 1,800 Fiber (gm) 0 Goal #1 CPN to meet 90-100% energy and pro needs Goal #2 Wt gain/maintenance Anticipated Discharge Needs: Unable to determine at this time Follow-Up By: 05/15/18 Additional Comments Labs in AM: BMP, Mg, Phos
[2018-05-14] MEDS ORDERED: TPN ADULT 1,800 ML IV SCH (20:00)
[2018-05-14] MEDS: NORCO 5/325 PO PRN (20:44)
[2018-05-14] MEDS: REMERON PO SCH (22:35)
[2018-05-15] MEDS: DILAUDID IV PRN ×4 (04:04→22:18)
[2018-05-15 05:47] LABS: BUN/Creatinine Ratio 60; Blood Urea Nitrogen 12 mg/dL (7-17); Calcium 8.2 mg/dL (8.4-10.2); Hemolysis Index 3
[2018-05-15] MEDS: ZOFRAN IV PRN (06:52)
[2018-05-15] MEDS: PROVENTIL IH SCH ×3 (08:11→21:07)
[2018-05-15] MEDS: NEURONTIN PO SCH ×3 (08:23→20:13)
[2018-05-15] MEDS: XANAX PO PRN ×2 (09:46→20:13)
[2018-05-15] MEDS: LOPRESSOR PO SCH (09:46)
[2018-05-15] MEDS: PEPCID IV SCH ×2 (09:47→22:16)
--- NOTE | 2018-05-15 10:24 | XRay Report ---
AP ABDOMEN: HISTORY: Assessment post peritoneal abscess. The abdominal gas pattern is unremarkable. No masses or organomegaly is identified and there is no gross evidence of free air or fluid. No significant soft tissue calcifications are noted. There appears to be a drainage catheter in the pelvis. IMPRESSION: Unremarkable abdomen.
[2018-05-15] MEDS: COZAAR PO SCH (10:27)
--- NOTE | 2018-05-15 12:23 | Progress Note ---
Assessment and Plan Pt feeling well. status quo. no drainage. Abd soft, non tender stable for CT abd & pelvis with po contrast on Friday Selected Entries 05/15/18 11:27 Temperature 98.7 F Pulse Rate 101 H Respiratory 18 Rate Blood Pressure 153/84 Laboratory Tests 05/15/18 05:10 Sodium 135 L Potassium 4.3 Chloride 99.8 Carbon Dioxide 26 BUN 12 Creatinine 0.2 L Objective Vital Signs - 12hr 05/15/18 05/15/18 05/15/18 00:33 04:04 04:34 Temperature 98.5 F Pulse Rate 101 H Respiratory 16 17 17 Rate Blood Pressure 128/73 O2 Sat by Pulse 97 Oximetry 05/15/18 05/15/18 05/15/18 04:53 07:48 11:27 Temperature 98.9 F 98.6 F 98.7 F Pulse Rate 111 H 112 H 101 H Respiratory 18 18 18 Rate Blood Pressure 137/71 150/89 153/84 O2 Sat by Pulse 95 96 96 Oximetry - Labs 05/14/18 06:40 05/15/18 05:10 Diabetes panel 05/15/18 Range/Units 05:10 Sodium 135 L (137-145) mmol/L Potassium 4.3 (3.6-5.0) mmol/L Chloride 99.8 (98-107) mmol/L Carbon Dioxide 26 (22-30) mmol/L BUN 12 (7-17) mg/dL Creatinine 0.2 L (0.7-1.2) mg/dL Glucose 100 (65-100) mg/dL Calcium 8.2 L (8.4-10.2) mg/dL Calcium panel 05/15/18 Range/Units 05:10 Calcium 8.2 L (8.4-10.2) mg/dL Phosphorus 3.50 (2.5-4.5) mg/dL Pituitary panel 05/15/18 Range/Units 05:10 Sodium 135 L (137-145) mmol/L Potassium 4.3 (3.6-5.0) mmol/L Chloride 99.8 (98-107) mmol/L Carbon Dioxide 26 (22-30) mmol/L BUN 12 (7-17) mg/dL Creatinine 0.2 L (0.7-1.2) mg/dL Glucose 100 (65-100) mg/dL Calcium 8.2 L (8.4-10.2) mg/dL Adrenal panel 05/15/18 Range/Units 05:10 Sodium 135 L (137-145) mmol/L Potassium 4.3 (3.6-5.0) mmol/L Chloride 99.8 (98-107) mmol/L Carbon Dioxide 26 (22-30) mmol/L BUN 12 (7-17) mg/dL Creatinine 0.2 L (0.7-1.2) mg/dL Glucose 100 (65-100) mg/dL Calcium 8.2 L (8.4-10.2) mg/dL
--- NOTE | 2018-05-15 12:33 | Progress Note ---
Assessment and Plan Sepsis. Etiology secondary to gangrenous and perforated appendix causing intra- abdominal/pelvic abscess. status post exploratory laparotomy with appendectomy and evacuation of pelvic abscess. Intrabdominal sepsis/peritonitis Ruptured appendix with abdominal abscess Tobacco abuse disorder COPD Neurofibromatosis - continue supplemental oxygen to keep O2 sats > 90% (especially while asleep) - continue bronchodilators with pulmonary hygiene per RT - change albuterol to prn and schedule brovana with pulmicort for chronic COPD - advance diet per surgeon (remains on TPN) - continue aspiration precautions - abdominal drain to suction (adjust per surgeon) - s/p antibiotics course - IV fluids per surgeon - VTE prophylaxis - PT/OT/Mobility, OOB to chair daily - continue incentive spirometry - continue nicotine withdrawal precautions - Smoking cessation counselling was done at the bedside again today - Analgesia, pain management - NPO for now, serial abdominal exams ...d/c planning tentatively for LTAC ... re-evaluate in am & prn Subjective Date of service: 05/15/18 Principal diagnosis: Sepsis; Ex-lap appendectomy and evacuation of pelvic abscess; Peritonitis Interval history: Patient is seen today for: Sepsis; status post exploratory laparotomy with appendectomy and evacuation of pelvic abscess; Intrabdominal sepsis/peritonitis; Ruptured appendix with abdominal abscess Seen and examined at bedside; 24hour events reviewed; nursing and respiratory care staff consulted; no adverse overnight events reported to me; resting in bed; complained of some abdominal pain; No N/V; remains on TPN; remains on supplemental oxygen therapy Objective Vital Signs - 12hr 05/15/18 05/15/18 05/15/18 00:33 04:04 04:34 Temperature 98.5 F Pulse Rate 101 H Respiratory 16 17 17 Rate Blood Pressure 128/73 O2 Sat by Pulse 97 Oximetry 05/15/18 05/15/18 05/15/18 04:53 07:48 11:27 Temperature 98.9 F 98.6 F 98.7 F Pulse Rate 111 H 112 H 101 H Respiratory 18 18 18 Rate Blood Pressure 137/71 150/89 153/84 O2 Sat by Pulse 95 96 96 Oximetry Constitutional: no acute distress, alert, other (chronically ill looking this middle aged CF, normocephalic) Eyes: non-icteric ENT: oropharynx moist, other (Mallampati 2) Neck: supple, no lymphadenopathy, no JVD Effort: mildly labored Ascultation: Bilateral: diminished breath sounds, rhonchi (scant in bases) Percussion: Bilateral: not dull Cardiovascular: regular rate and rhythm Gastrointestinal: normoactive bowel sounds, soft, tender (bhargav-op site), non- distended, other (Drain in place with non-bloody effluent) Integumentary: other (poor turgor; ? neurofibromatous nodules over body) Extremities: no cyanosis, no edema, pink and warm, pulses normal Neurologic: normal mental status, non-focal exam, pupils equal and round, motor strength normal and Psychiatric: mood appropriate, anxious CBC and BMP: 05/14/18 06:40 05/16/18 04:30 ABG, PT/INR, D-dimer: ABG POC ABG pH 7.367 (7.35-7.45) 04/19/18 00:19 POC ABG pCO2 36.8 (35-45) 04/19/18 00:19 POC ABG pO2 84 (80-105) 04/19/18 00:19 POC ABG HCO3 21.1 04/19/18 00:19 POC ABG Total CO2 22 04/19/18 00:19 POC ABG O2 Sat 96 04/19/18 00:19 PT/INR, D-dimer PT 15.3 Sec. (12.2-14.9) H 04/22/18 05:19 INR 1.17 (0.87-1.13) H 04/22/18 05:19 Abnormal lab findings: Abnormal Labs 04/18/18 04/18/18 04/18/18 14:30 14:30 14:30 WBC 18.6 H RBC Hgb Hct RDW Lymph % (Auto) Winn % (Auto) Lymph # Seg Neutrophils % Seg Neuts % (Manual) 79.0 H Lymphocytes % (Manual) 4.0 L Seg Neutrophils # Man 14.7 H Lymphocytes # (Manual) 0.7 L PT 16.3 H INR 1.27 H VBG pH Sodium 121 L Potassium 3.0 L Chloride 78.0 L Carbon Dioxide BUN Creatinine 0.5 L Glucose 110 H POC Glucose Lactic Acid Calcium Phosphorus Magnesium Total Bilirubin 1.30 H AST 42 H Total Protein Albumin 3.1 L Crossmatch 04/18/18 04/18/18 04/18/18 14:30 14:30 23:59 WBC RBC Hgb Hct RDW 15.8 H Lymph % (Auto) Winn % (Auto) Lymph # Seg Neutrophils % Seg Neuts % (Manual) 78.0 H Lymphocytes % (Manual) 6.0 L Seg Neutrophils # Man Lymphocytes # (Manual) 0.5 L PT INR VBG pH 7.439 H Sodium Potassium Chloride Carbon Dioxide BUN Creatinine Glucose POC Glucose Lactic Acid 3.60 H* Calcium Phosphorus Magnesium Total Bilirubin AST Total Protein Albumin Crossmatch 04/18/18 04/19/18 04/19/18 23:59 05:19 05:19 WBC 15.0 H RBC Hgb Hct RDW 15.3 H Lymph % (Auto) Winn % (Auto) Lymph # Seg Neutrophils % Seg Neuts % (Manual) Lymphocytes % (Manual) 5.0 L Seg Neutrophils # Man 8.3 H Lymphocytes # (Manual) 0.8 L PT INR VBG pH Sodium 130 L D 133 L Potassium 3.5 L 3.3 L Chloride Carbon Dioxide 20 L D BUN Creatinine 0.5 L 0.6 L Glucose 140 H 115 H POC Glucose Lactic Acid Calcium 7.5 L 7.4 L Phosphorus Magnesium Total Bilirubin AST Total Protein 4.4 L D 4.1 L Albumin 2.0 L 1.9 L Crossmatch 04/19/18 04/19/18 04/20/18 05:19 13:05 05:18 WBC RBC Hgb Hct RDW Lymph % (Auto) Winn % (Auto) Lymph # Seg Neutrophils % Seg Neuts % (Manual) Lymphocytes % (Manual) Seg Neutrophils # Man Lymphocytes # (Manual) PT 19.4 H 17.4 H INR 1.59 H 1.38 H VBG pH Sodium Potassium Chloride Carbon Dioxide BUN Creatinine Glucose POC Glucose Lactic Acid Calcium Phosphorus Magnesium Total Bilirubin AST Total Protein Albumin Crossmatch See Detail 04/20/18 04/20/18 04/21/18 13:47 13:47 04:52 WBC RBC 3.29 L 3.10 L Hgb 9.6 L 8.8 L Hct 28.1 L D 26.6 L RDW 15.3 H 15.4 H Lymph % (Auto) 5.6 L Winn % (Auto) Lymph # 0.4 L Seg Neutrophils % 87.3 H Seg Neuts % (Manual) Lymphocytes % (Manual) Seg Neutrophils # Man Lymphocytes # (Manual) PT INR VBG pH Sodium Potassium Chloride Carbon Dioxide BUN Creatinine 0.3 L Glucose 102 H POC Glucose Lactic Acid Calcium 8.0 L Phosphorus Magnesium Total Bilirubin AST Total Protein Albumin Crossmatch 04/21/18 04/22/18 04/22/18 04:52 05:19 05:19 WBC RBC 3.64 L Hgb Hct RDW Lymph % (Auto) 8.5 L Winn % (Auto) 9.9 H Lymph # 0.6 L Seg Neutrophils % 81.0 H Seg Neuts % (Manual) Lymphocytes % (Manual) Seg Neutrophils # Man Lymphocytes # (Manual) PT 15.3 H INR 1.17 H VBG pH Sodium Potassium 3.2 L Chloride Carbon Dioxide BUN Creatinine 0.3 L Glucose POC Glucose Lactic Acid Calcium 7.6 L Phosphorus Magnesium Total Bilirubin AST Total Protein Albumin Crossmatch 04/22/18 04/24/18 04/24/18 05:19 07:19 07:19 WBC RBC Hgb Hct RDW Lymph % (Auto) Winn % (Auto) Lymph # Seg Neutrophils % Seg Neuts % (Manual) Lymphocytes % (Manual) Seg Neutrophils # Man Lymphocytes # (Manual) PT INR VBG pH Sodium Potassium 3.4 L 2.9 L* Chloride Carbon Dioxide BUN Creatinine 0.3 L 0.3 L Glucose 103 H POC Glucose Lactic Acid Calcium 7.7 L 7.5 L Phosphorus Magnesium 1.60 L Total Bilirubin AST Total Protein 4.3 L Albumin 2.2 L Crossmatch 04/24/18 04/25/18 04/25/18 07:23 06:28 06:28 WBC RBC Hgb Hct RDW 15.3 H 15.9 H Lymph % (Auto) 10.1 L Winn % (Auto) Lymph # 0.8 L Seg Neutrophils % 80.6 H Seg Neuts % (Manual) Lymphocytes % (Manual) 9.0 L Seg Neutrophils # Man Lymphocytes # (Manual) 0.7 L PT INR VBG pH Sodium Potassium 3.0 L Chloride Carbon Dioxide BUN 5 L Creatinine 0.2 L Glucose 108 H POC Glucose Lactic Acid Calcium 7.4 L Phosphorus Magnesium Total Bilirubin AST Total Protein 4.6 L Albumin 2.5 L Crossmatch 04/25/18 04/26/18 04/26/18 06:28 05:45 05:45 WBC 11.9 H RBC Hgb Hct RDW 16.2 H Lymph % (Auto) Winn % (Auto) Lymph # Seg Neutrophils % Seg Neuts % (Manual) Lymphocytes % (Manual) Seg Neutrophils # Man Lymphocytes # (Manual) PT INR VBG pH Sodium Potassium Chloride Carbon Dioxide BUN 5 L Creatinine 0.2 L Glucose 119 H POC Glucose Lactic Acid Calcium 7.7 L Phosphorus 2.00 L 2.20 L Magnesium Total Bilirubin AST Total Protein Albumin Crossmatch 04/27/18 04/28/18 04/28/18 05:33 06:00 06:00 WBC 11.2 H RBC Hgb Hct RDW 16.0 H Lymph % (Auto) Winn % (Auto) Lymph # Seg Neutrophils % Seg Neuts % (Manual) 92.0 H Lymphocytes % (Manual) 5.0 L Seg Neutrophils # Man 10.3 H Lymphocytes # (Manual) 0.6 L PT INR VBG pH Sodium Potassium 3.4 L 3.1 L Chloride Carbon Dioxide BUN 6 L 4 L Creatinine 0.2 L 0.2 L Glucose 119 H POC Glucose Lactic Acid Calcium 7.5 L 7.1 L Phosphorus 2.00 L 2.10 L Magnesium 1.50 L Total Bilirubin AST Total Protein 4.3 L Albumin 2.1 L Crossmatch 04/29/18 04/29/18 04/29/18 05:18 05:18 17:49 WBC 12.0 H RBC Hgb Hct RDW 16.0 H Lymph % (Auto) Winn % (Auto) Lymph # Seg Neutrophils % Seg Neuts % (Manual) 87.0 H Lymphocytes % (Manual) 10.0 L Seg Neutrophils # Man 10.4 H Lymphocytes # (Manual) PT INR VBG pH Sodium 135 L Potassium Chloride Carbon Dioxide BUN Creatinine 0.2 L Glucose 120 H POC Glucose 108 H Lactic Acid Calcium 7.5 L Phosphorus Magnesium Total Bilirubin AST Total Protein Albumin Crossmatch 04/30/18 04/30/18 04/30/18 00:03 05:18 05:41 WBC RBC Hgb Hct RDW Lymph % (Auto) Winn % (Auto) Lymph # Seg Neutrophils % Seg Neuts % (Manual) Lymphocytes % (Manual) Seg Neutrophils # Man Lymphocytes # (Manual) PT INR VBG pH Sodium 133 L Potassium Chloride Carbon Dioxide BUN Creatinine 0.2 L Glucose 119 H POC Glucose 112 H 110 H Lactic Acid Calcium 7.5 L Phosphorus Magnesium Total Bilirubin AST Total Protein Albumin Crossmatch 04/30/18 05/01/1819 05:41 00:39 04:45 WBC RBC 3.60 L Hgb Hct RDW 16.0 H Lymph % (Auto) Winn % (Auto) Lymph # Seg Neutrophils % Seg Neuts % (Manual) 88.0 H Lymphocytes % (Manual) 8.0 L Seg Neutrophils # Man Lymphocytes # (Manual) 0.7 L PT INR VBG pH Sodium 132 L Potassium Chloride Carbon Dioxide BUN Creatinine 0.2 L Glucose 101 H POC Glucose 119 H Lactic Acid Calcium 7.6 L Phosphorus Magnesium Total Bilirubin AST Total Protein Albumin Crossmatch 05/01/18 05/01/18 05/01/18 06:30 16:09 23:42 WBC RBC Hgb Hct RDW Lymph % (Auto) Winn % (Auto) Lymph # Seg Neutrophils % Seg Neuts % (Manual) Lymphocytes % (Manual) Seg Neutrophils # Man Lymphocytes # (Manual) PT INR VBG pH Sodium Potassium Chloride Carbon Dioxide BUN Creatinine Glucose POC Glucose 126 H 160 H 113 H Lactic Acid Calcium Phosphorus Magnesium Total Bilirubin AST Total Protein Albumin Crossmatch 05/02/18 05/02/18 05/02/18 04:55 06:41 11:53 WBC RBC Hgb Hct RDW Lymph % (Auto) Winn % (Auto) Lymph # Seg Neutrophils % Seg Neuts % (Manual) Lymphocytes % (Manual) Seg Neutrophils # Man Lymphocytes # (Manual) PT INR VBG pH Sodium 134 L Potassium Chloride Carbon Dioxide BUN Creatinine 0.2 L Glucose 113 H POC Glucose 146 H 113 H Lactic Acid Calcium 7.4 L Phosphorus Magnesium Total Bilirubin AST Total Protein Albumin Crossmatch 05/02/18 05/02/18 05/03/18 17:33 23:37 08:46 WBC RBC 3.36 L Hgb 9.7 L Hct 28.7 L RDW 16.3 H Lymph % (Auto) Winn % (Auto) 10.0 H Lymph # Seg Neutrophils % Seg Neuts % (Manual) Lymphocytes % (Manual) Seg Neutrophils # Man Lymphocytes # (Manual) PT INR VBG pH Sodium Potassium Chloride Carbon Dioxide BUN Creatinine Glucose POC Glucose 106 H 123 H Lactic Acid Calcium Phosphorus Magnesium Total Bilirubin AST Total Protein Albumin Crossmatch 05/03/18 05/03/18 05/04/18 11:54 12:15 06:59 WBC RBC Hgb Hct RDW Lymph % (Auto) Winn % (Auto) Lymph # Seg Neutrophils % Seg Neuts % (Manual) Lymphocytes % (Manual) Seg Neutrophils # Man Lymphocytes # (Manual) PT INR VBG pH Sodium 136 L Potassium Chloride Carbon Dioxide BUN Creatinine 0.2 L Glucose 131 H POC Glucose 109 H 161 H Lactic Acid Calcium 7.6 L Phosphorus Magnesium Total Bilirubin AST Total Protein Albumin Crossmatch 05/04/18 05/04/18 05/04/18 07:03 08:02 11:10 WBC RBC 3.52 L Hgb Hct 29.8 L RDW 16.2 H Lymph % (Auto) Winn % (Auto) 8.6 H Lymph # Seg Neutrophils % Seg Neuts % (Manual) Lymphocytes % (Manual) Seg Neutrophils # Man Lymphocytes # (Manual) PT INR VBG pH Sodium 135 L Potassium Chloride Carbon Dioxide BUN Creatinine 0.2 L Glucose 160 H POC Glucose 106 H Lactic Acid Calcium 7.7 L Phosphorus Magnesium Total Bilirubin AST Total Protein Albumin Crossmatch 05/04/18 05/05/18 05/05/18 23:38 11:28 16:55 WBC RBC Hgb Hct RDW Lymph % (Auto) Winn % (Auto) Lymph # Seg Neutrophils % Seg Neuts % (Manual) Lymphocytes % (Manual) Seg Neutrophils # Man Lymphocytes # (Manual) PT INR VBG pH Sodium Potassium Chloride Carbon Dioxide BUN Creatinine Glucose POC Glucose 121 H 119 H 108 H Lactic Acid Calcium Phosphorus Magnesium Total Bilirubin AST Total Protein Albumin Crossmatch 05/05/18 05/06/18 05/06/18 Unknown 05:35 16:40 WBC RBC Hgb Hct RDW Lymph % (Auto) Winn % (Auto) Lymph # Seg Neutrophils % Seg Neuts % (Manual) Lymphocytes % (Manual) Seg Neutrophils # Man Lymphocytes # (Manual) PT INR VBG pH Sodium 135 L 136 L Potassium Chloride 97.9 L Carbon Dioxide BUN Creatinine 0.2 L 0.2 L Glucose 119 H POC Glucose 133 H Lactic Acid Calcium 8.0 L 8.1 L Phosphorus Magnesium Total Bilirubin AST 46 H Total Protein 5.5 L Albumin 2.7 L Crossmatch 05/06/18 05/07/18 05/07/18 22:07 05:38 05:40 WBC RBC Hgb Hct RDW Lymph % (Auto) Winn % (Auto) Lymph # Seg Neutrophils % Seg Neuts % (Manual) Lymphocytes % (Manual) Seg Neutrophils # Man Lymphocytes # (Manual) PT INR VBG pH Sodium 133 L Potassium Chloride Carbon Dioxide BUN Creatinine 0.2 L Glucose POC Glucose 168 H 107 H Lactic Acid Calcium 8.2 L Phosphorus Magnesium Total Bilirubin AST Total Protein Albumin Crossmatch 05/07/18 05/07/18 05/08/18 11:56 18:04 05:38 WBC RBC Hgb Hct RDW 16.3 H Lymph % (Auto) Winn % (Auto) 7.7 H Lymph # Seg Neutrophils % Seg Neuts % (Manual) Lymphocytes % (Manual) Seg Neutrophils # Man Lymphocytes # (Manual) PT INR VBG pH Sodium Potassium Chloride Carbon Dioxide BUN Creatinine Glucose POC Glucose 145 H 125 H Lactic Acid Calcium Phosphorus Magnesium Total Bilirubin AST Total Protein Albumin Crossmatch 05/08/18 05/08/18 05/08/18 05:38 11:35 16:23 WBC RBC Hgb Hct RDW Lymph % (Auto) Winn % (Auto) Lymph # Seg Neutrophils % Seg Neuts % (Manual) Lymphocytes % (Manual) Seg Neutrophils # Man Lymphocytes # (Manual) PT INR VBG pH Sodium 135 L Potassium Chloride Carbon Dioxide BUN Creatinine 0.2 L Glucose POC Glucose 118 H 131 H Lactic Acid Calcium Phosphorus Magnesium Total Bilirubin AST Total Protein Albumin Crossmatch 05/08/18 05/09/18 05/09/18 21:40 05:46 06:15 WBC RBC Hgb Hct RDW Lymph % (Auto) Winn % (Auto) Lymph # Seg Neutrophils % Seg Neuts % (Manual) Lymphocytes % (Manual) Seg Neutrophils # Man Lymphocytes # (Manual) PT INR VBG pH Sodium 135 L Potassium Chloride 97.5 L Carbon Dioxide BUN Creatinine 0.2 L Glucose POC Glucose 110 H 115 H Lactic Acid Calcium Phosphorus Magnesium Total Bilirubin AST Total Protein Albumin Crossmatch 05/09/18 05/09/18 05/10/18 11:28 23:53 06:22 WBC RBC Hgb Hct RDW Lymph % (Auto) Winn % (Auto) Lymph # Seg Neutrophils % Seg Neuts % (Manual) Lymphocytes % (Manual) Seg Neutrophils # Man Lymphocytes # (Manual) PT INR VBG pH Sodium Potassium Chloride Carbon Dioxide BUN Creatinine Glucose POC Glucose 145 H 132 H 149 H Lactic Acid Calcium Phosphorus Magnesium Total Bilirubin AST Total Protein Albumin Crossmatch 05/10/18 05/10/18 05/11/18 16:14 23:24 05:00 WBC RBC Hgb Hct RDW Lymph % (Auto) Winn % (Auto) Lymph # Seg Neutrophils % Seg Neuts % (Manual) Lymphocytes % (Manual) Seg Neutrophils # Man Lymphocytes # (Manual) PT INR VBG pH Sodium Potassium Chloride Carbon Dioxide BUN Creatinine 0.2 L Glucose 113 H POC Glucose 119 H 119 H Lactic Acid Calcium Phosphorus Magnesium Total Bilirubin AST Total Protein Albumin Crossmatch 05/11/18 05/11/18 05/11/18 05:57 11:23 16:29 WBC RBC Hgb Hct RDW Lymph % (Auto) Winn % (Auto) Lymph # Seg Neutrophils % Seg Neuts % (Manual) Lymphocytes % (Manual) Seg Neutrophils # Man Lymphocytes # (Manual) PT INR VBG pH Sodium Potassium Chloride Carbon Dioxide BUN Creatinine Glucose POC Glucose 173 H 143 H 159 H Lactic Acid Calcium Phosphorus Magnesium Total Bilirubin AST Total Protein Albumin Crossmatch 05/12/18 05/12/18 05/12/18 00:47 06:23 11:21 WBC RBC Hgb Hct RDW Lymph % (Auto) Winn % (Auto) Lymph # Seg Neutrophils % Seg Neuts % (Manual) Lymphocytes % (Manual) Seg Neutrophils # Man Lymphocytes # (Manual) PT INR VBG pH Sodium Potassium Chloride Carbon Dioxide BUN Creatinine Glucose POC Glucose 139 H 136 H 116 H Lactic Acid Calcium Phosphorus Magnesium Total Bilirubin AST Total Protein Albumin Crossmatch 05/12/18 05/12/18 05/12/18 17:19 17:22 22:22 WBC RBC Hgb Hct RDW Lymph % (Auto) Winn % (Auto) Lymph # Seg Neutrophils % Seg Neuts % (Manual) Lymphocytes % (Manual) Seg Neutrophils # Man Lymphocytes # (Manual) PT INR VBG pH Sodium Potassium Chloride Carbon Dioxide BUN Creatinine Glucose POC Glucose 329 H 116 H 124 H Lactic Acid Calcium Phosphorus Magnesium Total Bilirubin AST Total Protein Albumin Crossmatch 05/13/18 05/13/18 05/13/18 18:35 22:25 Unknown WBC RBC Hgb Hct RDW Lymph % (Auto) Winn % (Auto) Lymph # Seg Neutrophils % Seg Neuts % (Manual) Lymphocytes % (Manual) Seg Neutrophils # Man Lymphocytes # (Manual) PT INR VBG pH Sodium 136 L Potassium Chloride 97.8 L Carbon Dioxide BUN Creatinine 0.2 L Glucose POC Glucose 137 H 106 H Lactic Acid Calcium Phosphorus Magnesium Total Bilirubin AST 41 H Total Protein Albumin 3.5 L Crossmatch 05/14/18 05/14/18 05/14/18 06:40 06:40 12:48 WBC RBC 3.48 L Hgb 9.8 L Hct 29.1 L RDW 15.6 H Lymph % (Auto) Winn % (Auto) Lymph # Seg Neutrophils % Seg Neuts % (Manual) Lymphocytes % (Manual) Seg Neutrophils # Man Lymphocytes # (Manual) PT INR VBG pH Sodium Potassium Chloride Carbon Dioxide BUN Creatinine 0.2 L Glucose POC Glucose 113 H Lactic Acid Calcium 8.1 L Phosphorus Magnesium Total Bilirubin AST Total Protein Albumin Crossmatch 05/14/18 05/14/18 05/15/18 17:52 22:04 05:10 WBC RBC Hgb Hct RDW Lymph % (Auto) Winn % (Auto) Lymph # Seg Neutrophils % Seg Neuts % (Manual) Lymphocytes % (Manual) Seg Neutrophils # Man Lymphocytes # (Manual) PT INR VBG pH Sodium 135 L Potassium Chloride Carbon Dioxide BUN Creatinine 0.2 L Glucose POC Glucose 106 H 107 H Lactic Acid Calcium 8.2 L Phosphorus Magnesium Total Bilirubin AST Total Protein Albumin Crossmatch 05/15/18 05/15/18 06:24 11:31 WBC RBC Hgb Hct RDW Lymph % (Auto) Winn % (Auto) Lymph # Seg Neutrophils % Seg Neuts % (Manual) Lymphocytes % (Manual) Seg Neutrophils # Man Lymphocytes # (Manual) PT INR VBG pH Sodium Potassium Chloride Carbon Dioxide BUN Creatinine Glucose POC Glucose 125 H 133 H Lactic Acid Calcium Phosphorus Magnesium Total Bilirubin AST Total Protein Albumin Crossmatch Allied health notes reviewed: nursing
[2018-05-15] MEDS ORDERED: DURAGESIC TD SCH (14:00)
--- NOTE | 2018-05-15 14:30 | Progress Note ---
Assessment and Plan Assessment and plan: The patient is a 57-year-old female with hypertension, neurofibromatosis, hepatitis C, COPD, nicotine dependence presented to the emergency room on 04/18/18 with complaints of abdominal pain going on for [address] scan obtained in the emergency room revealed a ruptured appendix with associated intra-abdominal abscess. General surgery was consulted and the patient underwent an emergent exploratory laparotomy with evacuation of pelvic abscess. She was noted to have a gangrenous, perforated appendix eroding including into the small bowel. As per the op note, the abscess could not be drained as the entire abscess and inflammatory process had trapped the small bowel, which was mobilized and she underwent an ileocolic anastomosis. The patient went back to the OR on 04/25/18 for drain dislodgment. Surgical cultures growing ECOLI and beta hemolytic strep group C, ester albicans and enteroccocus faecium Per surgery considering plan to transfer to LTAC If this is the case, there are a lot of care issues to keep in mind * pt must continue on current TPN regimen and sandostatin * continue local wd care * If pt begins experiencing RLQ abd pain, Drain must be re-placed on low continues suction * repeat CT of abd & pelvis with PO contrast to be scheduled for Friday * pt needs to remain NPO except for ice chips, meds and popsicles until the results of her CT on Friday * Pt may have retention sutures removed after Friday Sepsis Etiology secondary to gangrenous and perforated appendix causing intra- abdominal/pelvic abscess. Patient is status post exploratory laparotomy with appendectomy and evacuation of pelvic abscess. Now off antibiotics and noted ID signed off. No fever off antibiotics. 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 Untreated. Outpatient follow-up. Accel Hypertension. Increase Cozaar to 100mg. Cont. Hydralazine prn. Diarrhea: Per pt since octeroitide was started. Will give some fluids to replenish insensible loss Tachycardia: secondary to dehydration and deconditioning. Fluids to be given and also start Low dose BB. COPD. Compensated. Neurofibromatosis Tobacco abuse. Patient counseled on smoking cessation FOR 15 MINS, Patient verbalized understanding and will think about it. Disposition - Patient need LTACH placement after cleared by surgery. History Interval history: Patient seen and examined this am with nursing staff. Reports diarrhea, no evidence of infectious.Diarrhea improving, drain placed back on suction Hospitalist Physical - Physical exam Narrative exam: VITAL SIGNS: Reviewed. GENERAL: The patient appeared well nourished and normally developed. Vital signs as documented. Temporal wasting noted HEAD: No signs of head trauma. EYES: Pupils are equal. Extraocular motions intact. EARS: Hearing grossly intact. MOUTH: Oropharynx is normal. NECK: No adenopathy, no JVD. CHEST: Chest with clear breath sounds bilaterally. No wheezes, rales, or rhonchi. CARDIAC: Regular rate and rhythm. S1 and S2, without murmurs, gallops, or rubs. VASCULAR: No Edema. Peripheral pulses normal and equal in all extremities. ABDOMEN: Soft, midly distended, some tenderness. bilateral drain noted hypoactive BS No rebound or guarding, and no masses palpated. MUSCULOSKELETAL: Good range of motion of all major joints. Extremities without clubbing, cyanosis or edema. NEUROLOGIC EXAM: Alert and oriented x 3. No focal sensory or strength deficits. Speech normal. Follows commands. PSYCHIATRIC: Mood normal. SKIN: neurofibromatosis lesions on face - Constitutional Vitals: Temp Pulse Resp BP Pulse Ox 98.7 F 101 H 18 153/84 96 05/15/18 11:27 05/15/18 11:27 05/15/18 11:27 05/15/18 11:27 05/15/18 11:27 General appearance: Present: no acute distress, cachectic, other (temporal wasting scaphoid abdomen.) Results - Labs CBC & Chem 7: 05/14/18 06:40 05/15/18 05:10 Labs: Laboratory Last Values WBC 4.5 K/mm3 (4.5-11.0) 05/14/18 06:40 RBC 3.48 M/mm3 (3.65-5.03) L 05/14/18 06:40 Hgb 9.8 gm/dl (10.1-14.3) L 05/14/18 06:40 Hct 29.1 % (30.3-42.9) L 05/14/18 06:40 MCV 83 fl (79-97) 05/14/18 06:40 MCH 28 pg (28-32) 05/14/18 06:40 MCHC 34 % (30-34) 05/14/18 06:40 RDW 15.6 % (13.2-15.2) H 05/14/18 06:40 Plt Count 163 K/mm3 (140-440) 05/14/18 06:40 Lymph % (Auto) 29.1 % (13.4-35.0) 05/08/18 05:38 [place] % (Auto) 7.7 % (0.0-7.3) H 05/08/18 05:38 Eos % (Auto) 3.2 % (0.0-4.3) 05/08/18 05:38 Baso % (Auto) 1.1 % (0.0-1.8) 05/08/18 05:38 Lymph # 1.4 K/mm3 (1.2-5.4) 05/08/18 05:38 [place] # 0.4 K/mm3 (0.0-0.8) 05/08/18 05:38 Eos # 0.2 K/mm3 (0.0-0.4) 05/08/18 05:38 Baso # 0.1 K/mm3 (0.0-0.1) 05/08/18 05:38 Add Manual Diff Complete 04/30/18 05:41 Total Counted 100 04/30/18 05:41 Seg Neutrophils % 58.9 % (40.0-70.0) 05/08/18 05:38 Seg Neuts % (Manual) 88.0 % (40.0-70.0) H 04/30/18 05:41 Band Neutrophils % 1.0 % 04/30/18 05:41 Lymphocytes % (Manual) 8.0 % (13.4-35.0) L 04/30/18 05:41 Reactive Lymphs % (Man) 0 % 04/30/18 05:41 Monocytes % (Manual) 3.0 % (0.0-7.3) 04/30/18 05:41 Eosinophils % (Manual) 0 % (0.0-4.3) 04/30/18 05:41 Basophils % (Manual) 0 % (0.0-1.8) 04/30/18 05:41 Metamyelocytes % 0 % 04/30/18 05:41 Myelocytes % 0 % 04/30/18 05:41 Promyelocytes % 0 % 04/30/18 05:41 Blast Cells % 0 % 04/30/18 05:41 Nucleated RBC % Not Reportable 04/30/18 05:41 Seg Neutrophils # 2.9 K/mm3 (1.8-7.7) 05/08/18 05:38 Seg Neutrophils # Man 7.7 K/mm3 (1.8-7.7) 04/30/18 05:41 Band Neutrophils # 0.1 K/mm3 04/30/18 05:41 Lymphocytes # (Manual) 0.7 K/mm3 (1.2-5.4) L 04/30/18 05:41 Abs React Lymphs (Man) 0.0 K/mm3 04/30/18 05:41 Monocytes # (Manual) 0.3 K/mm3 (0.0-0.8) 04/30/18 05:41 Eosinophils # (Manual) 0.0 K/mm3 (0.0-0.4) 04/30/18 05:41 Basophils # (Manual) 0.0 K/mm3 (0.0-0.1) 04/30/18 05:41 Metamyelocytes # 0.0 K/mm3 04/30/18 05:41 Myelocytes # 0.0 K/mm3 04/30/18 05:41 Promyelocytes # 0.0 K/mm3 04/30/18 05:41 Blast Cells # 0.0 K/mm3 04/30/18 05:41 WBC Morphology Not Reportable 04/30/18 05:41 Hypersegmented Neuts Not Reportable 04/30/18 05:41 Hyposegmented Neuts Not Reportable 04/30/18 05:41 Hypogranular Neuts Not Reportable 04/30/18 05:41 Smudge Cells Not Reportable 04/30/18 05:41 Toxic Granulation Not Reportable 04/30/18 05:41 Toxic Vacuolation Not Reportable 04/30/18 05:41 Dohle Bodies Not Reportable 04/30/18 05:41 Pelger-Huet Anomaly Not Reportable 04/30/18 05:41 Nicole Rods Not Reportable 04/30/18 05:41 Platelet Estimate Appears normal 04/30/18 05:41 Clumped Platelets Not Reportable 04/30/18 05:41 Plt Clumps, EDTA Not Reportable 04/30/18 05:41 Large Platelets Not Reportable 04/30/18 05:41 Giant Platelets Not Reportable 04/30/18 05:41 Platelet Satelliting Not Reportable 04/30/18 05:41 Plt Morphology Comment Not Reportable 04/30/18 05:41 RBC Morphology Not Reportable 04/30/18 05:41 Dimorphic RBCs Not Reportable 04/30/18 05:41 Polychromasia Not Reportable 04/30/18 05:41 Hypochromasia 1+ 04/30/18 05:41 Poikilocytosis Not Reportable 04/30/18 05:41 Anisocytosis 1+ 04/30/18 05:41 Microcytosis Not Reportable 04/30/18 05:41 Macrocytosis Not Reportable 04/30/18 05:41 Spherocytes Not Reportable 04/30/18 05:41 Pappenheimer Bodies Not Reportable 04/30/18 05:41 Sickle Cells Not Reportable 04/30/18 05:41 Target Cells Not Reportable 04/30/18 05:41 Tear Drop Cells Not Reportable 04/30/18 05:41 Ovalocytes Few 04/30/18 05:41 Stomatocytes Few 04/29/18 05:18 Helmet Cells Not Reportable 04/30/18 05:41 [place] Bodies Not Reportable 04/30/18 05:41 [place] Rings Not Reportable 04/30/18 05:41 [place] Cells Not Reportable 04/30/18 05:41 Bite Cells Not Reportable 04/30/18 05:41 Crenated Cell Not Reportable 04/30/18 05:41 Elliptocytes Not Reportable 04/30/18 05:41 Acanthocytes (Spur) Not Reportable 04/30/18 05:41 Rouleaux Not Reportable 04/30/18 05:41 Hemoglobin C Crystals Not Reportable 04/30/18 05:41 Schistocytes Not Reportable 04/30/18 05:41 Malaria parasites Not Reportable 04/30/18 05:41 Hung Bodies Not Reportable 04/30/18 05:41 Hem Pathologist Commnt No 04/30/18 05:41 PT 15.3 Sec. (12.2-14.9) H 04/22/18 05:19 INR 1.17 (0.87-1.13) H 04/22/18 05:19 APTT 29.4 Sec. (24.2-36.6) 04/19/18 05:19 POC ABG pH 7.367 (7.35-7.45) 04/19/18 00:19 POC ABG pCO2 36.8 (35-45) 04/19/18 00:19 POC ABG pO2 84 (80-105) 04/19/18 00:19 POC ABG HCO3 21.1 04/19/18 00:19 POC ABG Total CO2 22 04/19/18 00:19 POC ABG O2 Sat 96 04/19/18 00:19 POC ABG Base Excess -4 04/19/18 00:19 VBG pH 7.439 (7.320-7.420) H 04/18/18 14:30 FiO2 32 % 04/19/18 00:19 Sodium 135 mmol/L (137-145) L 05/15/18 05:10 Potassium 4.3 mmol/L (3.6-5.0) 05/15/18 05:10 Chloride 99.8 mmol/L (98-107) 05/15/18 05:10 Carbon Dioxide 26 mmol/L (22-30) 05/15/18 05:10 Anion Gap 14 mmol/L 05/15/18 05:10 BUN 12 mg/dL (7-17) 05/15/18 05:10 Creatinine 0.2 mg/dL (0.7-1.2) L 05/15/18 05:10 Estimated GFR > 60 ml/min 05/15/18 05:10 BUN/Creatinine Ratio 60 % 05/15/18 05:10 Glucose 100 mg/dL (65-100) 05/15/18 05:10 POC Glucose 133 (70-105) H 05/15/18 11:31 Lactic Acid 0.90 mmol/L (0.7-2.0) 04/18/18 18:41 Calcium 8.2 mg/dL (8.4-10.2) L 05/15/18 05:10 Phosphorus 3.50 mg/dL (2.5-4.5) 05/15/18 05:10 Magnesium 2.00 mg/dL (1.7-2.3) 05/15/18 05:10 Total Bilirubin 0.60 mg/dL (0.1-1.2) 05/13/18 Unknown AST 41 units/L (5-40) H 05/13/18 Unknown ALT 38 units/L (7-56) 05/13/18 Unknown Alkaline Phosphatase 97 units/L (35-129) 05/13/18 Unknown Total Protein 6.5 g/dL (6.3-8.2) 05/13/18 Unknown Albumin 3.5 g/dL (3.9-5) L 05/13/18 Unknown Albumin/Globulin Ratio 1.2 % 05/13/18 Unknown Triglycerides 113 mg/dL (2-149) 05/13/18 Unknown Urine Color Yellow (Yellow) 04/20/18 13:35 Urine Turbidity Clear (Clear) 04/20/18 13:35 Urine pH 5.0 (5.0-7.0) 04/20/18 13:35 Ur Specific [place] 1.011 (1.003-1.030) 04/20/18 13:35 Urine Protein <15 mg/dl mg/dL (Negative) 04/20/18 13:35 Urine Glucose (UA) Neg mg/dL (Negative) 04/20/18 13:35 Urine Ketones 20 mg/dL (Negative) 04/20/18 13:35 Urine Blood Sm (Negative) 04/20/18 13:35 Urine Nitrite Neg (Negative) 04/20/18 13:35 Urine Bilirubin Neg (Negative) 04/20/18 13:35 Urine Urobilinogen 2.0 mg/dL (<2.0) 04/20/18 13:35 Ur Leukocyte Esterase Tr (Negative) 04/20/18 13:35 Urine WBC (Auto) 2.0 /HPF (0.0-6.0) 04/20/18 13:35 Urine RBC (Auto) 1.0 /HPF (0.0-6.0) 04/20/18 13:35 U Epithel Cells (Auto) 2.0 /HPF (0-13.0) 04/18/18 16:45 Urine Bacteria (Auto) 2+ /HPF (Negative) 04/18/18 16:45 Urine Mucus Few /HPF 04/20/18 13:35 Blood Type O POSITIVE 04/19/18 13:05 Antibody Screen Negative 04/19/18 13:05 Crossmatch See Detail 04/19/18 13:05 Nutrition/Malnutrition Assess - Dietary Evaluation Nutrition/Malnutrition Findings: Nutrition Notes Start: 04/24/18 09:13 Freq: Status: Active Protocol: Document 05/15/18 11:27 (Rec: 05/15/18 11:31 [email or web address]) Co-Sign 05/15/18 11:27 LP Nutrition Notes Initial or Follow up Reassessment Current Diagnosis COPD,Sepsis,Hypertension Other Pertinent Diagnosis Perforated appendix s/p exp lap, Hep C Current Diet TPN at 75ml/hr Labs/Tests Reviewed Pertinent Medications Reviewed Height 5 ft 1 in Weight 40.4 kg [place] Body Weight (kg) 47.72 BMI 16.8 Subjective/Other Information Day TPN. Observed TPN bag infusing at 75 ml/hr. Pt. bed scale still not providing an accurate weight. Percent of energy/protein needs met: 81%/100% Burn Absent Trauma Absent #2 Nutrition Diagnosis Increased nutrient needs ( specify in comment below) Diagnosis Progress(for reassessment Continues documentation) #1 Nutrition Diagnosis Inadequate oral intake Diagnosis Progress(for reassessment Continues documentation) Is patient on ventilator? No Is Patient Ambulatory and/or Out of Bed No REE-([facility]-confined to bed) 1122.540 Kcal/Kg value to use for calculation 40 Approximate Energy Requirements Using 1616 kcal/Kg Calculation Used for Recommendations Kcal/kg Additional Notes Pro needs: 59-70 g/day (1.25-1 .5 g/kg previous BW of 42.1 kg ) Fluid needs : 1 ml/kcal Nutrition Intervention Change Diet Order: TPN Nutrition Support: Continue TPN at 75 ml/hr: MVI, lipids Kcal 1,815 Protein (gm) 95 Carbohydrates (gm) 275 Fat (gm) 50 Fluid (mL) 2,050 Fiber (gm) 0 Goal #1 CPN to meet 90-100% energy and pro needs Goal #2 Wt gain/maintenance Anticipated Discharge Needs: Unable to determine at this time Follow-Up By: 05/16/18 Additional Comments Labs in AM: BMP, Mg, Phos
[2018-05-15] MEDS ORDERED: TPN ADULT 1,800 ML IV SCH (20:00)
[2018-05-15] MEDS ORDERED: INTRALIPID 20% 250 ML IV SCH (20:00)
[2018-05-15] MEDS: REMERON PO SCH (22:16)
[2018-05-16] MEDS: LOPRESSOR PO SCH ×3 (01:11→21:50)
[2018-05-16] MEDS: DILAUDID IV PRN ×6 (01:28→20:58)
[2018-05-16] MEDS: ZOFRAN IV PRN (06:12)
[2018-05-16] MEDS: PROVENTIL IH SCH ×2 (07:26→13:41)
[2018-05-16 08:15] LABS: BUN/Creatinine Ratio 65; Blood Urea Nitrogen 13 mg/dL (7-17); Calcium 8.7 mg/dL (8.4-10.2); Hemolysis Index 6
[2018-05-16] MEDS: COZAAR PO SCH (09:04)
[2018-05-16] MEDS: NEURONTIN PO SCH ×3 (09:05→20:08)
[2018-05-16] MEDS: PEPCID IV SCH ×2 (09:05→21:45)
[2018-05-16] MEDS: XANAX PO PRN (10:53)
--- NOTE | 2018-05-16 12:22 | Progress Note ---
Assessment and Plan Assessment and plan: The patient is a 57-year-old female with hypertension, neurofibromatosis, hepatitis C, COPD, nicotine dependence presented to the emergency room on 04/18/18 with complaints of abdominal pain going on for [address] scan obtained in the emergency room revealed a ruptured appendix with associated intra-abdominal abscess. General surgery was consulted and the patient underwent an emergent exploratory laparotomy with evacuation of pelvic abscess. She was noted to have a gangrenous, perforated appendix eroding including into the small bowel. As per the op note, the abscess could not be drained as the entire abscess and inflammatory process had trapped the small bowel, which was mobilized and she underwent an ileocolic anastomosis. The patient went back to the OR on 04/25/18 for drain dislodgment. Surgical cultures growing ECOLI and beta hemolytic strep group C, ester albicans and enteroccocus faecium Per surgery considering plan to transfer to LTAC If this is the case, there are a lot of care issues to keep in mind * pt must continue on current TPN regimen and sandostatin * Continue local wd care * If pt begins experiencing RLQ abd pain, Drain must be re-placed on low continues suction * repeat CT of abd & pelvis with PO contrast to be scheduled for Friday * Pt needs to remain NPO except for ice chips, meds and popsicles until the results of her CT on Friday * Pt may have retention sutures removed after Friday Sepsis Etiology secondary to gangrenous and perforated appendix causing intra- abdominal/pelvic abscess. Patient is status post exploratory laparotomy with appendectomy and evacuation of pelvic abscess. Now off antibiotics and noted ID signed off. No fever off antibiotics. 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 Untreated. Outpatient follow-up. Accel Hypertension. Increase Cozaar to 100mg. Cont. Hydralazine prn. Diarrhea: Per pt since octerotide was started. Will give some fluids to replenish insensible loss Tachycardia: secondary to dehydration and deconditioning. Fluids to be given and also start Low dose BB. COPD. Compensated. Neurofibromatosis: Tobacco abuse. Patient counseled on smoking cessation FOR 15 MINS, Patient verbalized understanding and will think about it. Disposition - Patient need LTACH placement after cleared by surgery. History Interval history: Patient seen and examined this am with nursing staff. NO New complaints. No new drainage. Hospitalist Physical - Physical exam Narrative exam: VITAL SIGNS: Reviewed. GENERAL: The patient appeared well nourished and normally developed. Vital signs as documented. Temporal wasting noted HEAD: No signs of head trauma. EYES: Pupils are equal. Extraocular motions intact. EARS: Hearing grossly intact. MOUTH: Oropharynx is normal. NECK: No adenopathy, no JVD. CHEST: Chest with clear breath sounds bilaterally. No wheezes, rales, or rhonchi. CARDIAC: Regular rate and rhythm. S1 and S2, without murmurs, gallops, or rubs. VASCULAR: No Edema. Peripheral pulses normal and equal in all extremities. ABDOMEN: Soft, midly distended, some tenderness. bilateral drain noted hypoactive BS No rebound or guarding, and no masses palpated. MUSCULOSKELETAL: Good range of motion of all major joints. Extremities without clubbing, cyanosis or edema. NEUROLOGIC EXAM: Alert and oriented x 3. No focal sensory or strength deficits. Speech normal. Follows commands. PSYCHIATRIC: Mood normal. SKIN: neurofibromatosis lesions on face - Constitutional Vitals: Temp Pulse Resp BP Pulse Ox 97.8 F 105 H 18 133/79 96 05/16/18 12:00 05/16/18 12:00 05/16/18 12:00 05/16/18 12:00 05/16/18 12:00 General appearance: Present: no acute distress, cachectic, other (temporal wasting scaphoid abdomen.) Results - Labs CBC & Chem 7: 05/14/18 06:40 05/16/18 04:30 Labs: Laboratory Last Values WBC 4.5 K/mm3 (4.5-11.0) 05/14/18 06:40 RBC 3.48 M/mm3 (3.65-5.03) L 05/14/18 06:40 Hgb 9.8 gm/dl (10.1-14.3) L 05/14/18 06:40 Hct 29.1 % (30.3-42.9) L 05/14/18 06:40 MCV 83 fl (79-97) 05/14/18 06:40 MCH 28 pg (28-32) 05/14/18 06:40 MCHC 34 % (30-34) 05/14/18 06:40 RDW 15.6 % (13.2-15.2) H 05/14/18 06:40 Plt Count 163 K/mm3 (140-440) 05/14/18 06:40 Lymph % (Auto) 29.1 % (13.4-35.0) 05/08/18 05:38 [place] % (Auto) 7.7 % (0.0-7.3) H 05/08/18 05:38 Eos % (Auto) 3.2 % (0.0-4.3) 05/08/18 05:38 Baso % (Auto) 1.1 % (0.0-1.8) 05/08/18 05:38 Lymph # 1.4 K/mm3 (1.2-5.4) 05/08/18 05:38 [place] # 0.4 K/mm3 (0.0-0.8) 05/08/18 05:38 Eos # 0.2 K/mm3 (0.0-0.4) 05/08/18 05:38 Baso # 0.1 K/mm3 (0.0-0.1) 05/08/18 05:38 Add Manual Diff Complete 04/30/18 05:41 Total Counted 100 04/30/18 05:41 Seg Neutrophils % 58.9 % (40.0-70.0) 05/08/18 05:38 Seg Neuts % (Manual) 88.0 % (40.0-70.0) H 04/30/18 05:41 Band Neutrophils % 1.0 % 04/30/18 05:41 Lymphocytes % (Manual) 8.0 % (13.4-35.0) L 04/30/18 05:41 Reactive Lymphs % (Man) 0 % 04/30/18 05:41 Monocytes % (Manual) 3.0 % (0.0-7.3) 04/30/18 05:41 Eosinophils % (Manual) 0 % (0.0-4.3) 04/30/18 05:41 Basophils % (Manual) 0 % (0.0-1.8) 04/30/18 05:41 Metamyelocytes % 0 % 04/30/18 05:41 Myelocytes % 0 % 04/30/18 05:41 Promyelocytes % 0 % 04/30/18 05:41 Blast Cells % 0 % 04/30/18 05:41 Nucleated RBC % Not Reportable 04/30/18 05:41 Seg Neutrophils # 2.9 K/mm3 (1.8-7.7) 05/08/18 05:38 Seg Neutrophils # Man 7.7 K/mm3 (1.8-7.7) 04/30/18 05:41 Band Neutrophils # 0.1 K/mm3 04/30/18 05:41 Lymphocytes # (Manual) 0.7 K/mm3 (1.2-5.4) L 04/30/18 05:41 Abs React Lymphs (Man) 0.0 K/mm3 04/30/18 05:41 Monocytes # (Manual) 0.3 K/mm3 (0.0-0.8) 04/30/18 05:41 Eosinophils # (Manual) 0.0 K/mm3 (0.0-0.4) 04/30/18 05:41 Basophils # (Manual) 0.0 K/mm3 (0.0-0.1) 04/30/18 05:41 Metamyelocytes # 0.0 K/mm3 04/30/18 05:41 Myelocytes # 0.0 K/mm3 04/30/18 05:41 Promyelocytes # 0.0 K/mm3 04/30/18 05:41 Blast Cells # 0.0 K/mm3 04/30/18 05:41 WBC Morphology Not Reportable 04/30/18 05:41 Hypersegmented Neuts Not Reportable 04/30/18 05:41 Hyposegmented Neuts Not Reportable 04/30/18 05:41 Hypogranular Neuts Not Reportable 04/30/18 05:41 Smudge Cells Not Reportable 04/30/18 05:41 Toxic Granulation Not Reportable 04/30/18 05:41 Toxic Vacuolation Not Reportable 04/30/18 05:41 Dohle Bodies Not Reportable 04/30/18 05:41 Pelger-Huet Anomaly Not Reportable 04/30/18 05:41 Nicole Rods Not Reportable 04/30/18 05:41 Platelet Estimate Appears normal 04/30/18 05:41 Clumped Platelets Not Reportable 04/30/18 05:41 Plt Clumps, EDTA Not Reportable 04/30/18 05:41 Large Platelets Not Reportable 04/30/18 05:41 Giant Platelets Not Reportable 04/30/18 05:41 Platelet Satelliting Not Reportable 04/30/18 05:41 Plt Morphology Comment Not Reportable 04/30/18 05:41 RBC Morphology Not Reportable 04/30/18 05:41 Dimorphic RBCs Not Reportable 04/30/18 05:41 Polychromasia Not Reportable 04/30/18 05:41 Hypochromasia 1+ 04/30/18 05:41 Poikilocytosis Not Reportable 04/30/18 05:41 Anisocytosis 1+ 04/30/18 05:41 Microcytosis Not Reportable 04/30/18 05:41 Macrocytosis Not Reportable 04/30/18 05:41 Spherocytes Not Reportable 04/30/18 05:41 Pappenheimer Bodies Not Reportable 04/30/18 05:41 Sickle Cells Not Reportable 04/30/18 05:41 Target Cells Not Reportable 04/30/18 05:41 Tear Drop Cells Not Reportable 04/30/18 05:41 Ovalocytes Few 04/30/18 05:41 Stomatocytes Few 04/29/18 05:18 Helmet Cells Not Reportable 04/30/18 05:41 [place] Bodies Not Reportable 04/30/18 05:41 Stites Rings Not Reportable 04/30/18 05:41 Philip Cells Not Reportable 04/30/18 05:41 Bite Cells Not Reportable 04/30/18 05:41 Crenated Cell Not Reportable 04/30/18 05:41 Elliptocytes Not Reportable 04/30/18 05:41 Acanthocytes (Spur) Not Reportable 04/30/18 05:41 Rouleaux Not Reportable 04/30/18 05:41 Hemoglobin C Crystals Not Reportable 04/30/18 05:41 Schistocytes Not Reportable 04/30/18 05:41 Malaria parasites Not Reportable 04/30/18 05:41 Hung Bodies Not Reportable 04/30/18 05:41 Hem Pathologist Commnt No 04/30/18 05:41 PT 15.3 Sec. (12.2-14.9) H 04/22/18 05:19 INR 1.17 (0.87-1.13) H 04/22/18 05:19 APTT 29.4 Sec. (24.2-36.6) 04/19/18 05:19 POC ABG pH 7.367 (7.35-7.45) 04/19/18 00:19 POC ABG pCO2 36.8 (35-45) 04/19/18 00:19 POC ABG pO2 84 (80-105) 04/19/18 00:19 POC ABG HCO3 21.1 04/19/18 00:19 POC ABG Total CO2 22 04/19/18 00:19 POC ABG O2 Sat 96 04/19/18 00:19 POC ABG Base Excess -4 04/19/18 00:19 VBG pH 7.439 (7.320-7.420) H 04/18/18 14:30 FiO2 32 % 04/19/18 00:19 Sodium 138 mmol/L (137-145) 05/16/18 04:30 Potassium 4.0 mmol/L (3.6-5.0) 05/16/18 04:30 Chloride 98.5 mmol/L (98-107) 05/16/18 04:30 Carbon Dioxide 28 mmol/L (22-30) 05/16/18 04:30 Anion Gap 16 mmol/L 05/16/18 04:30 BUN 13 mg/dL (7-17) 05/16/18 04:30 Creatinine 0.2 mg/dL (0.7-1.2) L 05/16/18 04:30 Estimated GFR > 60 ml/min 05/16/18 04:30 BUN/Creatinine Ratio 65 % 05/16/18 04:30 Glucose 84 mg/dL (65-100) 05/16/18 04:30 POC Glucose 113 (70-105) H 05/16/18 05:59 Lactic Acid 0.90 mmol/L (0.7-2.0) 04/18/18 18:41 Calcium 8.7 mg/dL (8.4-10.2) 05/16/18 04:30 Phosphorus 3.70 mg/dL (2.5-4.5) 05/16/18 04:30 Magnesium 1.80 mg/dL (1.7-2.3) 05/16/18 04:30 Total Bilirubin 0.60 mg/dL (0.1-1.2) 05/13/18 Unknown AST 41 units/L (5-40) H 05/13/18 Unknown ALT 38 units/L (7-56) 05/13/18 Unknown Alkaline Phosphatase 97 units/L (35-129) 05/13/18 Unknown Total Protein 6.5 g/dL (6.3-8.2) 05/13/18 Unknown Albumin 3.5 g/dL (3.9-5) L 05/13/18 Unknown Albumin/Globulin Ratio 1.2 % 05/13/18 Unknown Triglycerides 113 mg/dL (2-149) 05/13/18 Unknown Urine Color Yellow (Yellow) 04/20/18 13:35 Urine Turbidity Clear (Clear) 04/20/18 13:35 Urine pH 5.0 (5.0-7.0) 04/20/18 13:35 Ur Specific [place] 1.011 (1.003-1.030) 04/20/18 13:35 Urine Protein <15 mg/dl mg/dL (Negative) 04/20/18 13:35 Urine Glucose (UA) Neg mg/dL (Negative) 04/20/18 13:35 Urine Ketones 20 mg/dL (Negative) 04/20/18 13:35 Urine Blood Sm (Negative) 04/20/18 13:35 Urine Nitrite Neg (Negative) 04/20/18 13:35 Urine Bilirubin Neg (Negative) 04/20/18 13:35 Urine Urobilinogen 2.0 mg/dL (<2.0) 04/20/18 13:35 Ur Leukocyte Esterase Tr (Negative) 04/20/18 13:35 Urine WBC (Auto) 2.0 /HPF (0.0-6.0) 04/20/18 13:35 Urine RBC (Auto) 1.0 /HPF (0.0-6.0) 04/20/18 13:35 U Epithel Cells (Auto) 2.0 /HPF (0-13.0) 04/18/18 16:45 Urine Bacteria (Auto) 2+ /HPF (Negative) 04/18/18 16:45 Urine Mucus Few /HPF 04/20/18 13:35 Blood Type O POSITIVE 04/19/18 13:05 Antibody Screen Negative 04/19/18 13:05 Crossmatch See Detail 04/19/18 13:05 Nutrition/Malnutrition Assess - Dietary Evaluation Nutrition/Malnutrition Findings: Nutrition Notes Start: 04/24/18 09:13 Freq: Status: Active Protocol: Document 05/15/18 11:27 (Rec: 05/15/18 11:31 [email or web address]) Co-Sign 05/15/18 11:27 LP Nutrition Notes Initial or Follow up Reassessment Current Diagnosis COPD,Sepsis,Hypertension Other Pertinent Diagnosis Perforated appendix s/p exp lap, Hep C Current Diet TPN at 75ml/hr Labs/Tests Reviewed Pertinent Medications Reviewed Height 5 ft 1 in Weight 40.4 kg [place] Body Weight (kg) 47.72 BMI 16.8 Subjective/Other Information TPN. Observed TPN bag infusing at 75 ml/hr. Pt. bed scale still not providing an accurate weight. Percent of energy/protein needs met: 81%/100% Burn Absent Trauma Absent #2 Nutrition Diagnosis Increased nutrient needs ( specify in comment below) Diagnosis Progress(for reassessment Continues documentation) #1 Nutrition Diagnosis Inadequate oral intake Diagnosis Progress(for reassessment Continues documentation) Is patient on ventilator? No Is Patient Ambulatory and/or Out of Bed No REE-([facility]-confined to bed) 1122.540 Kcal/Kg value to use for calculation 40 Approximate Energy Requirements Using 1616 kcal/Kg Calculation Used for Recommendations Kcal/kg Additional Notes Pro needs: 59-70 g/day (1.25-1 .5 g/kg previous BW of 42.1 kg ) Fluid needs : 1 ml/kcal Nutrition Intervention Change Diet Order: TPN Nutrition Support: Continue TPN at 75 ml/hr: MVI, lipids Kcal 1,815 Protein (gm) 95 Carbohydrates (gm) 275 Fat (gm) 50 Fluid (mL) 2,050 Fiber (gm) 0 Goal #1 CPN to meet 90-100% energy and pro needs Goal #2 Wt gain/maintenance Anticipated Discharge Needs: Unable to determine at this time Follow-Up By: 05/16/18 Additional Comments Labs in AM: BMP, Mg, Phos
--- NOTE | 2018-05-16 14:53 | Progress Note ---
Assessment and Plan Sepsis. Etiology secondary to gangrenous and perforated appendix causing intra- abdominal/pelvic abscess. status post exploratory laparotomy with appendectomy and evacuation of pelvic abscess. Intrabdominal sepsis/peritonitis Ruptured appendix with abdominal abscess Tobacco abuse disorder COPD Neurofibromatosis - tentatively for CT abdomen & pelvis in am and i will review lung windows - continue supplemental oxygen to keep O2 sats > 90% (especially while asleep) - continue bronchodilators with pulmonary hygiene per RT - changed albuterol to prn and continuing scheduled brovana with pulmicort for chronic COPD - advance diet per surgeon (remains on TPN) - continue aspiration precautions - abdominal drain to suction (adjust per surgeon) - s/p antibiotics course - IV fluids per surgeon - VTE prophylaxis - PT/OT/Mobility, OOB to chair daily - continue incentive spirometry - continue nicotine withdrawal precautions - Smoking cessation counselling was done at the bedside again today - Analgesia, pain management - NPO for now, serial abdominal exams ...d/c planning tentatively for LTAC ... re-evaluate in am & prn Subjective Date of service: 05/16/18 Principal diagnosis: Sepsis; Ex-lap appendectomy and evacuation of pelvic abscess; Peritonitis Interval history: Patient is seen today for: Sepsis; status post exploratory laparotomy with appendectomy and evacuation of pelvic abscess; Intrabdominal sepsis/peritonitis; Ruptured appendix with abdominal abscess Seen and examined at bedside; 24hour events reviewed; nursing and respiratory care staff consulted; no adverse overnight events reported to me; resting in bed; feels well; still with intermittent oxygen use and compliance counseled; denies acute chest pains; + occasional abdominal pain; minimal abdominal tube drainage; + diarrhea Objective Vital Signs - 12hr 05/16/18 05/16/18 05/16/18 03:35 04:46 07:20 Temperature 98.8 F Pulse Rate 107 H Pulse Rate [ 106 H Anterior Bilateral Throughout] Respiratory 18 18 Rate Respiratory 16 Rate [Anterior Bilateral Throughout] Blood Pressure 122/74 Blood Pressure [Right] O2 Sat by Pulse 97 Oximetry 05/16/18 05/16/18 05/16/18 07:27 08:49 09:05 Temperature 98.3 F Pulse Rate 111 H Pulse Rate [ 106 H Anterior Bilateral Throughout] Respiratory 22 22 Rate Respiratory 16 Rate [Anterior Bilateral Throughout] Blood Pressure Blood Pressure 122/79 [Right] O2 Sat by Pulse 94 Oximetry 05/16/18 05/16/18 05/16/18 09:35 12:00 13:45 Temperature 97.8 F Pulse Rate 105 H Pulse Rate [ 92 H Anterior Bilateral Throughout] Respiratory 22 18 Rate Respiratory 16 Rate [Anterior Bilateral Throughout] Blood Pressure 133/79 Blood Pressure [Right] O2 Sat by Pulse 96 Oximetry 05/16/18 13:46 Temperature Pulse Rate Pulse Rate [ 96 H Anterior Bilateral Throughout] Respiratory Rate Respiratory 16 Rate [Anterior Bilateral Throughout] Blood Pressure Blood Pressure [Right] O2 Sat by Pulse Oximetry Constitutional: alert, appears uncomfortable, other (chronically ill looking this middle aged CF, normocephalic) Eyes: non-icteric ENT: oropharynx moist, other (Mallampati 2) Neck: supple, no lymphadenopathy, no JVD Effort: mildly labored Ascultation: Bilateral: diminished breath sounds, rhonchi (scant in bases) Percussion: Bilateral: not dull Cardiovascular: regular rate and rhythm Gastrointestinal: normoactive bowel sounds, soft, tender (bhargav-op site), non- distended, other (Drain in place with non-bloody effluent) Integumentary: other (poor turgor; ? neurofibromatous nodules over body) Extremities: no cyanosis, no edema, pink and warm, pulses normal Neurologic: normal mental status, non-focal exam, pupils equal and round, motor strength normal and Psychiatric: mood appropriate, anxious CBC and BMP: 05/14/18 06:40 05/18/18 07:43 ABG, PT/INR, D-dimer: ABG POC ABG pH 7.367 (7.35-7.45) 04/19/18 00:19 POC ABG pCO2 36.8 (35-45) 04/19/18 00:19 POC ABG pO2 84 (80-105) 04/19/18 00:19 POC ABG HCO3 21.1 04/19/18 00:19 POC ABG Total CO2 22 04/19/18 00:19 POC ABG O2 Sat 96 04/19/18 00:19 PT/INR, D-dimer PT 15.3 Sec. (12.2-14.9) H 04/22/18 05:19 INR 1.17 (0.87-1.13) H 04/22/18 05:19 Abnormal lab findings: Abnormal Labs 04/18/18 04/18/18 04/18/18 14:30 14:30 14:30 WBC 18.6 H RBC Hgb Hct RDW Lymph % (Auto) [place] % (Auto) Lymph # Seg Neutrophils % Seg Neuts % (Manual) 79.0 H Lymphocytes % (Manual) 4.0 L Seg Neutrophils # Man 14.7 H Lymphocytes # (Manual) 0.7 L PT 16.3 H INR 1.27 H VBG pH Sodium 121 L Potassium 3.0 L Chloride 78.0 L Carbon Dioxide BUN Creatinine 0.5 L Glucose 110 H POC Glucose Lactic Acid Calcium Phosphorus Magnesium Total Bilirubin 1.30 H AST 42 H Total Protein Albumin 3.1 L Crossmatch 04/18/18 04/18/18 04/18/18 14:30 14:30 23:59 WBC RBC Hgb Hct RDW 15.8 H Lymph % (Auto) [place] % (Auto) Lymph # Seg Neutrophils % Seg Neuts % (Manual) 78.0 H Lymphocytes % (Manual) 6.0 L Seg Neutrophils # Man Lymphocytes # (Manual) 0.5 L PT INR VBG pH 7.439 H Sodium Potassium Chloride Carbon Dioxide BUN Creatinine Glucose POC Glucose Lactic Acid 3.60 H* Calcium Phosphorus Magnesium Total Bilirubin AST Total Protein Albumin Crossmatch 04/18/18 04/19/18 04/19/18 23:59 05:19 05:19 WBC 15.0 H RBC Hgb Hct RDW 15.3 H Lymph % (Auto) [place] % (Auto) Lymph # Seg Neutrophils % Seg Neuts % (Manual) Lymphocytes % (Manual) 5.0 L Seg Neutrophils # Man 8.3 H Lymphocytes # (Manual) 0.8 L PT INR VBG pH Sodium 130 L D 133 L Potassium 3.5 L 3.3 L Chloride Carbon Dioxide 20 L D BUN Creatinine 0.5 L 0.6 L Glucose 140 H 115 H POC Glucose Lactic Acid Calcium 7.5 L 7.4 L Phosphorus Magnesium Total Bilirubin AST Total Protein 4.4 L D 4.1 L Albumin 2.0 L 1.9 L Crossmatch 04/19/18 04/19/18 04/20/18 05:19 13:05 05:18 WBC RBC Hgb Hct RDW Lymph % (Auto) [place] % (Auto) Lymph # Seg Neutrophils % Seg Neuts % (Manual) Lymphocytes % (Manual) Seg Neutrophils # Man Lymphocytes # (Manual) PT 19.4 H 17.4 H INR 1.59 H 1.38 H VBG pH Sodium Potassium Chloride Carbon Dioxide BUN Creatinine Glucose POC Glucose Lactic Acid Calcium Phosphorus Magnesium Total Bilirubin AST Total Protein Albumin Crossmatch See Detail 04/20/18 04/20/18 04/21/18 13:47 13:47 04:52 WBC RBC 3.29 L 3.10 L Hgb 9.6 L 8.8 L Hct 28.1 L D 26.6 L RDW 15.3 H 15.4 H Lymph % (Auto) 5.6 L [place] % (Auto) Lymph # 0.4 L Seg Neutrophils % 87.3 H Seg Neuts % (Manual) Lymphocytes % (Manual) Seg Neutrophils # Man Lymphocytes # (Manual) PT INR VBG pH Sodium Potassium Chloride Carbon Dioxide BUN Creatinine 0.3 L Glucose 102 H POC Glucose Lactic Acid Calcium 8.0 L Phosphorus Magnesium Total Bilirubin AST Total Protein Albumin Crossmatch 04/21/18 04/22/18 04/22/18 04:52 05:19 05:19 WBC RBC 3.64 L Hgb Hct RDW Lymph % (Auto) 8.5 L [place] % (Auto) 9.9 H Lymph # 0.6 L Seg Neutrophils % 81.0 H Seg Neuts % (Manual) Lymphocytes % (Manual) Seg Neutrophils # Man Lymphocytes # (Manual) PT 15.3 H INR 1.17 H VBG pH Sodium Potassium 3.2 L Chloride Carbon Dioxide BUN Creatinine 0.3 L Glucose POC Glucose Lactic Acid Calcium 7.6 L Phosphorus Magnesium Total Bilirubin AST Total Protein Albumin Crossmatch 04/22/18 04/24/18 04/24/18 05:19 07:19 07:19 WBC RBC Hgb Hct RDW Lymph % (Auto) [place] % (Auto) Lymph # Seg Neutrophils % Seg Neuts % (Manual) Lymphocytes % (Manual) Seg Neutrophils # Man Lymphocytes # (Manual) PT INR VBG pH Sodium Potassium 3.4 L 2.9 L* Chloride Carbon Dioxide BUN Creatinine 0.3 L 0.3 L Glucose 103 H POC Glucose Lactic Acid Calcium 7.7 L 7.5 L Phosphorus Magnesium 1.60 L Total Bilirubin AST Total Protein 4.3 L Albumin 2.2 L Crossmatch 04/24/18 04/25/18 04/25/18 07:23 06:28 06:28 WBC RBC Hgb Hct RDW 15.3 H 15.9 H Lymph % (Auto) 10.1 L [place] % (Auto) Lymph # 0.8 L Seg Neutrophils % 80.6 H Seg Neuts % (Manual) Lymphocytes % (Manual) 9.0 L Seg Neutrophils # Man Lymphocytes # (Manual) 0.7 L PT INR VBG pH Sodium Potassium 3.0 L Chloride Carbon Dioxide BUN 5 L Creatinine 0.2 L Glucose 108 H POC Glucose Lactic Acid Calcium 7.4 L Phosphorus Magnesium Total Bilirubin AST Total Protein 4.6 L Albumin 2.5 L Crossmatch 04/25/18 04/26/18 04/26/18 06:28 05:45 05:45 WBC 11.9 H RBC Hgb Hct RDW 16.2 H Lymph % (Auto) [place] % (Auto) Lymph # Seg Neutrophils % Seg Neuts % (Manual) Lymphocytes % (Manual) Seg Neutrophils # Man Lymphocytes # (Manual) PT INR VBG pH Sodium Potassium Chloride Carbon Dioxide BUN 5 L Creatinine 0.2 L Glucose 119 H POC Glucose Lactic Acid Calcium 7.7 L Phosphorus 2.00 L 2.20 L Magnesium Total Bilirubin AST Total Protein Albumin Crossmatch 04/27/18 04/28/18 04/28/18 05:33 06:00 06:00 WBC 11.2 H RBC Hgb Hct RDW 16.0 H Lymph % (Auto) [place] % (Auto) Lymph # Seg Neutrophils % Seg Neuts % (Manual) 92.0 H Lymphocytes % (Manual) 5.0 L Seg Neutrophils # Man 10.3 H Lymphocytes # (Manual) 0.6 L PT INR VBG pH Sodium Potassium 3.4 L 3.1 L Chloride Carbon Dioxide BUN 6 L 4 L Creatinine 0.2 L 0.2 L Glucose 119 H POC Glucose Lactic Acid Calcium 7.5 L 7.1 L Phosphorus 2.00 L 2.10 L Magnesium 1.50 L Total Bilirubin AST Total Protein 4.3 L Albumin 2.1 L Crossmatch 04/29/18 04/29/18 04/29/18 05:18 05:18 17:49 WBC 12.0 H RBC Hgb Hct RDW 16.0 H Lymph % (Auto) [place] % (Auto) Lymph # Seg Neutrophils % Seg Neuts % (Manual) 87.0 H Lymphocytes % (Manual) 10.0 L Seg Neutrophils # Man 10.4 H Lymphocytes # (Manual) PT INR VBG pH Sodium 135 L Potassium Chloride Carbon Dioxide BUN Creatinine 0.2 L Glucose 120 H POC Glucose 108 H Lactic Acid Calcium 7.5 L Phosphorus Magnesium Total Bilirubin AST Total Protein Albumin Crossmatch 04/30/18 04/30/18 04/30/18 00:03 05:18 05:41 WBC RBC Hgb Hct RDW Lymph % (Auto) [place] % (Auto) Lymph # Seg Neutrophils % Seg Neuts % (Manual) Lymphocytes % (Manual) Seg Neutrophils # Man Lymphocytes # (Manual) PT INR VBG pH Sodium 133 L Potassium Chloride Carbon Dioxide BUN Creatinine 0.2 L Glucose 119 H POC Glucose 112 H 110 H Lactic Acid Calcium 7.5 L Phosphorus Magnesium Total Bilirubin AST Total Protein Albumin Crossmatch 04/30/18 05/01/18 05/01/18 05:41 00:39 04:45 WBC RBC 3.60 L Hgb Hct RDW 16.0 H Lymph % (Auto) [place] % (Auto) Lymph # Seg Neutrophils % Seg Neuts % (Manual) 88.0 H Lymphocytes % (Manual) 8.0 L Seg Neutrophils # Man Lymphocytes # (Manual) 0.7 L PT INR VBG pH Sodium 132 L Potassium Chloride Carbon Dioxide BUN Creatinine 0.2 L Glucose 101 H POC Glucose 119 H Lactic Acid Calcium 7.6 L Phosphorus Magnesium Total Bilirubin AST Total Protein Albumin Crossmatch 05/01/18 05/01/18 05/01/18 06:30 16:09 23:42 WBC RBC Hgb Hct RDW Lymph % (Auto) [place] % (Auto) Lymph # Seg Neutrophils % Seg Neuts % (Manual) Lymphocytes % (Manual) Seg Neutrophils # Man Lymphocytes # (Manual) PT INR VBG pH Sodium Potassium Chloride Carbon Dioxide BUN Creatinine Glucose POC Glucose 126 H 160 H 113 H Lactic Acid Calcium Phosphorus Magnesium Total Bilirubin AST Total Protein Albumin Crossmatch 05/02/18 05/02/18 05/02/18 04:55 06:41 11:53 WBC RBC Hgb Hct RDW Lymph % (Auto) [place] % (Auto) Lymph # Seg Neutrophils % Seg Neuts % (Manual) Lymphocytes % (Manual) Seg Neutrophils # Man Lymphocytes # (Manual) PT INR VBG pH Sodium 134 L Potassium Chloride Carbon Dioxide BUN Creatinine 0.2 L Glucose 113 H POC Glucose 146 H 113 H Lactic Acid Calcium 7.4 L Phosphorus Magnesium Total Bilirubin AST Total Protein Albumin Crossmatch 05/02/18 05/02/18 05/03/18 17:33 23:37 08:46 WBC RBC 3.36 L Hgb 9.7 L Hct 28.7 L RDW 16.3 H Lymph % (Auto) [place] % (Auto) 10.0 H Lymph # Seg Neutrophils % Seg Neuts % (Manual) Lymphocytes % (Manual) Seg Neutrophils # Man Lymphocytes # (Manual) PT INR VBG pH Sodium Potassium Chloride Carbon Dioxide BUN Creatinine Glucose POC Glucose 106 H 123 H Lactic Acid Calcium Phosphorus Magnesium Total Bilirubin AST Total Protein Albumin Crossmatch 05/03/18 05/03/18 05/04/18 11:54 12:15 06:59 WBC RBC Hgb Hct RDW Lymph % (Auto) [place] % (Auto) Lymph # Seg Neutrophils % Seg Neuts % (Manual) Lymphocytes % (Manual) Seg Neutrophils # Man Lymphocytes # (Manual) PT INR VBG pH Sodium 136 L Potassium Chloride Carbon Dioxide BUN Creatinine 0.2 L Glucose 131 H POC Glucose 109 H 161 H Lactic Acid Calcium 7.6 L Phosphorus Magnesium Total Bilirubin AST Total Protein Albumin Crossmatch 05/04/18 05/04/18 05/04/18 07:03 08:02 11:10 WBC RBC 3.52 L Hgb Hct 29.8 L RDW 16.2 H Lymph % (Auto) [place] % (Auto) 8.6 H Lymph # Seg Neutrophils % Seg Neuts % (Manual) Lymphocytes % (Manual) Seg Neutrophils # Man Lymphocytes # (Manual) PT INR VBG pH Sodium 135 L Potassium Chloride Carbon Dioxide BUN Creatinine 0.2 L Glucose 160 H POC Glucose 106 H Lactic Acid Calcium 7.7 L Phosphorus Magnesium Total Bilirubin AST Total Protein Albumin Crossmatch 05/04/18 05/05/18 05/05/18 23:38 11:28 16:55 WBC RBC Hgb Hct RDW Lymph % (Auto) [place] % (Auto) Lymph # Seg Neutrophils % Seg Neuts % (Manual) Lymphocytes % (Manual) Seg Neutrophils # Man Lymphocytes # (Manual) PT INR VBG pH Sodium Potassium Chloride Carbon Dioxide BUN Creatinine Glucose POC Glucose 121 H 119 H 108 H Lactic Acid Calcium Phosphorus Magnesium Total Bilirubin AST Total Protein Albumin Crossmatch 05/05/18 05/06/18 05/06/18 Unknown 05:35 16:40 WBC RBC Hgb Hct RDW Lymph % (Auto) [place] % (Auto) Lymph # Seg Neutrophils % Seg Neuts % (Manual) Lymphocytes % (Manual) Seg Neutrophils # Man Lymphocytes # (Manual) PT INR VBG pH Sodium 135 L 136 L Potassium Chloride 97.9 L Carbon Dioxide BUN Creatinine 0.2 L 0.2 L Glucose 119 H POC Glucose 133 H Lactic Acid Calcium 8.0 L 8.1 L Phosphorus Magnesium Total Bilirubin AST 46 H Total Protein 5.5 L Albumin 2.7 L Crossmatch 05/06/18 05/07/18 05/07/18 22:07 05:38 05:40 WBC RBC Hgb Hct RDW Lymph % (Auto) [place] % (Auto) Lymph # Seg Neutrophils % Seg Neuts % (Manual) Lymphocytes % (Manual) Seg Neutrophils # Man Lymphocytes # (Manual) PT INR VBG pH Sodium 133 L Potassium Chloride Carbon Dioxide BUN Creatinine 0.2 L Glucose POC Glucose 168 H 107 H Lactic Acid Calcium 8.2 L Phosphorus Magnesium Total Bilirubin AST Total Protein Albumin Crossmatch 05/07/18 05/07/18 05/08/18 11:56 18:04 05:38 WBC RBC Hgb Hct RDW 16.3 H Lymph % (Auto) [place] % (Auto) 7.7 H Lymph # Seg Neutrophils % Seg Neuts % (Manual) Lymphocytes % (Manual) Seg Neutrophils # Man Lymphocytes # (Manual) PT INR VBG pH Sodium Potassium Chloride Carbon Dioxide BUN Creatinine Glucose POC Glucose 145 H 125 H Lactic Acid Calcium Phosphorus Magnesium Total Bilirubin AST Total Protein Albumin Crossmatch 05/08/18 05/08/18 05/08/18 05:38 11:35 16:23 WBC RBC Hgb Hct RDW Lymph % (Auto) [place] % (Auto) Lymph # Seg Neutrophils % Seg Neuts % (Manual) Lymphocytes % (Manual) Seg Neutrophils # Man Lymphocytes # (Manual) PT INR VBG pH Sodium 135 L Potassium Chloride Carbon Dioxide BUN Creatinine 0.2 L Glucose POC Glucose 118 H 131 H Lactic Acid Calcium Phosphorus Magnesium Total Bilirubin AST Total Protein Albumin Crossmatch 05/08/18 05/09/18 05/09/18 21:40 05:46 06:15 WBC RBC Hgb Hct RDW Lymph % (Auto) [place] % (Auto) Lymph # Seg Neutrophils % Seg Neuts % (Manual) Lymphocytes % (Manual) Seg Neutrophils # Man Lymphocytes # (Manual) PT INR VBG pH Sodium 135 L Potassium Chloride 97.5 L Carbon Dioxide BUN Creatinine 0.2 L Glucose POC Glucose 110 H 115 H Lactic Acid Calcium Phosphorus Magnesium Total Bilirubin AST Total Protein Albumin Crossmatch 05/09/18 05/09/18 05/10/18 11:28 23:53 06:22 WBC RBC Hgb Hct RDW Lymph % (Auto) [place] % (Auto) Lymph # Seg Neutrophils % Seg Neuts % (Manual) Lymphocytes % (Manual) Seg Neutrophils # Man Lymphocytes # (Manual) PT INR VBG pH Sodium Potassium Chloride Carbon Dioxide BUN Creatinine Glucose POC Glucose 145 H 132 H 149 H Lactic Acid Calcium Phosphorus Magnesium Total Bilirubin AST Total Protein Albumin Crossmatch 05/10/18 05/10/18 05/11/18 16:14 23:24 05:00 WBC RBC Hgb Hct RDW Lymph % (Auto) [place] % (Auto) Lymph # Seg Neutrophils % Seg Neuts % (Manual) Lymphocytes % (Manual) Seg Neutrophils # Man Lymphocytes # (Manual) PT INR VBG pH Sodium Potassium Chloride Carbon Dioxide BUN Creatinine 0.2 L Glucose 113 H POC Glucose 119 H 119 H Lactic Acid Calcium Phosphorus Magnesium Total Bilirubin AST Total Protein Albumin Crossmatch 05/11/18 05/11/18 05/11/18 05:57 11:23 16:29 WBC RBC Hgb Hct RDW Lymph % (Auto) [place] % (Auto) Lymph # Seg Neutrophils % Seg Neuts % (Manual) Lymphocytes % (Manual) Seg Neutrophils # Man Lymphocytes # (Manual) PT INR VBG pH Sodium Potassium Chloride Carbon Dioxide BUN Creatinine Glucose POC Glucose 173 H 143 H 159 H Lactic Acid Calcium Phosphorus Magnesium Total Bilirubin AST Total Protein Albumin Crossmatch 05/12/18 05/12/18 05/12/18 00:47 06:23 11:21 WBC RBC Hgb Hct RDW Lymph % (Auto) [place] % (Auto) Lymph # Seg Neutrophils % Seg Neuts % (Manual) Lymphocytes % (Manual) Seg Neutrophils # Man Lymphocytes # (Manual) PT INR VBG pH Sodium Potassium Chloride Carbon Dioxide BUN Creatinine Glucose POC Glucose 139 H 136 H 116 H Lactic Acid Calcium Phosphorus Magnesium Total Bilirubin AST Total Protein Albumin Crossmatch 05/12/18 05/12/18 05/12/18 17:19 17:22 22:22 WBC RBC Hgb Hct RDW Lymph % (Auto) [place] % (Auto) Lymph # Seg Neutrophils % Seg Neuts % (Manual) Lymphocytes % (Manual) Seg Neutrophils # Man Lymphocytes # (Manual) PT INR VBG pH Sodium Potassium Chloride Carbon Dioxide BUN Creatinine Glucose POC Glucose 329 H 116 H 124 H Lactic Acid Calcium Phosphorus Magnesium Total Bilirubin AST Total Protein Albumin Crossmatch 05/13/18 05/13/18 05/13/18 18:35 22:25 Unknown WBC RBC Hgb Hct RDW Lymph % (Auto) [place] % (Auto) Lymph # Seg Neutrophils % Seg Neuts % (Manual) Lymphocytes % (Manual) Seg Neutrophils # Man Lymphocytes # (Manual) PT INR VBG pH Sodium 136 L Potassium Chloride 97.8 L Carbon Dioxide BUN Creatinine 0.2 L Glucose POC Glucose 137 H 106 H Lactic Acid Calcium Phosphorus Magnesium Total Bilirubin AST 41 H Total Protein Albumin 3.5 L Crossmatch 05/14/18 05/14/18 05/14/18 06:40 06:40 12:48 WBC RBC 3.48 L Hgb 9.8 L Hct 29.1 L RDW 15.6 H Lymph % (Auto) [place] % (Auto) Lymph # Seg Neutrophils % Seg Neuts % (Manual) Lymphocytes % (Manual) Seg Neutrophils # Man Lymphocytes # (Manual) PT INR VBG pH Sodium Potassium Chloride Carbon Dioxide BUN Creatinine 0.2 L Glucose POC Glucose 113 H Lactic Acid Calcium 8.1 L Phosphorus Magnesium Total Bilirubin AST Total Protein Albumin Crossmatch 05/14/18 05/14/18 05/15/18 17:52 22:04 05:10 WBC RBC Hgb Hct RDW Lymph % (Auto) [place] % (Auto) Lymph # Seg Neutrophils % Seg Neuts % (Manual) Lymphocytes % (Manual) Seg Neutrophils # Man Lymphocytes # (Manual) PT INR VBG pH Sodium 135 L Potassium Chloride Carbon Dioxide BUN Creatinine 0.2 L Glucose POC Glucose 106 H 107 H Lactic Acid Calcium 8.2 L Phosphorus Magnesium Total Bilirubin AST Total Protein Albumin Crossmatch 05/15/18 05/15/18 05/15/18 06:24 11:31 16:47 WBC RBC Hgb Hct RDW Lymph % (Auto) [place] % (Auto) Lymph # Seg Neutrophils % Seg Neuts % (Manual) Lymphocytes % (Manual) Seg Neutrophils # Man Lymphocytes # (Manual) PT INR VBG pH Sodium Potassium Chloride Carbon Dioxide BUN Creatinine Glucose POC Glucose 125 H 133 H 135 H Lactic Acid Calcium Phosphorus Magnesium Total Bilirubin AST Total Protein Albumin Crossmatch 05/16/18 05/16/18 05/16/18 00:13 04:30 05:59 WBC RBC Hgb Hct RDW Lymph % (Auto) [place] % (Auto) Lymph # Seg Neutrophils % Seg Neuts % (Manual) Lymphocytes % (Manual) Seg Neutrophils # Man Lymphocytes # (Manual) PT INR VBG pH Sodium Potassium Chloride Carbon Dioxide BUN Creatinine 0.2 L Glucose POC Glucose 132 H 113 H Lactic Acid Calcium Phosphorus Magnesium Total Bilirubin AST Total Protein Albumin Crossmatch 05/16/18 13:03 WBC RBC Hgb Hct RDW Lymph % (Auto) [place] % (Auto) Lymph # Seg Neutrophils % Seg Neuts % (Manual) Lymphocytes % (Manual) Seg Neutrophils # Man Lymphocytes # (Manual) PT INR VBG pH Sodium Potassium Chloride Carbon Dioxide BUN Creatinine Glucose POC Glucose 112 H Lactic Acid Calcium Phosphorus Magnesium Total Bilirubin AST Total Protein Albumin Crossmatch Allied health notes reviewed: nursing
[2018-05-16] MEDS ORDERED: TPN ADULT 1,800 ML IV SCH (20:00)
[2018-05-16] MEDS: BROVANA NEBU IH SCH (20:37)
[2018-05-16] MEDS: PULMICORT IH SCH (20:38)
[2018-05-16] MEDS: REMERON PO SCH (21:46)
[2018-05-17] MEDS: DILAUDID IV PRN ×6 (00:39→23:50)
[2018-05-17] MEDS: ZOFRAN IV PRN ×2 (04:53→10:46)
[2018-05-17 06:49] LABS: BUN/Creatinine Ratio 60; Blood Urea Nitrogen 12 mg/dL (7-17); Calcium 8.5 mg/dL (8.4-10.2); Hemolysis Index 1
[2018-05-17] MEDS: PULMICORT IH SCH ×2 (07:47→19:50)
[2018-05-17] MEDS: BROVANA NEBU IH SCH ×2 (07:47→19:51)
[2018-05-17] MEDS: DURAGESIC TD SCH (10:39)
[2018-05-17] MEDS: PEPCID IV SCH ×2 (10:51→21:52)
[2018-05-17] MEDS: NEURONTIN PO SCH ×3 (10:51→20:19)
[2018-05-17] MEDS: LOPRESSOR PO SCH ×2 (10:52→21:57)
[2018-05-17] MEDS: XANAX PO PRN ×2 (10:52→20:22)
[2018-05-17] MEDS: COZAAR PO SCH (10:55)
--- NOTE | 2018-05-17 13:08 | Progress Note ---
Assessment and Plan Assessment and plan: The patient is a 57-year-old female with hypertension, neurofibromatosis, hepatitis C, COPD, nicotine dependence presented to the emergency room on 04/18/18 with complaints of abdominal pain going on for [address] scan obtained in the emergency room revealed a ruptured appendix with associated intra-abdominal abscess. General surgery was consulted and the patient underwent an emergent exploratory laparotomy with evacuation of pelvic abscess. She was noted to have a gangrenous, perforated appendix eroding including into the small bowel. As per the op note, the abscess could not be drained as the entire abscess and inflammatory process had trapped the small bowel, which was mobilized and she underwent an ileocolic anastomosis. The patient went back to the OR on 04/25/18 for drain dislodgment. Surgical cultures growing ECOLI and beta hemolytic strep group C, ester albicans and enteroccocus faecium Per surgery considering plan to transfer to LTAC If this is the case, there are a lot of care issues to keep in mind * pt must continue on current TPN regimen and sandostatin * Continue local wd care * If pt begins experiencing RLQ abd pain, Drain must be re-placed on low continues suction * repeat CT of abd & pelvis with PO contrast to be scheduled for Friday * Pt needs to remain NPO except for ice chips, meds and popsicles until the results of her CT on Friday * Pt may have retention sutures removed after Friday Sepsis Etiology secondary to gangrenous and perforated appendix causing intra- abdominal/pelvic abscess. Patient is status post exploratory laparotomy with appendectomy and evacuation of pelvic abscess. Now off antibiotics and noted ID signed off. No fever off antibiotics. Perforated appendix s/p exploratory lap Cont. TPN -Likely ocean transportation intermediary Dislodged drain, s/p taken to OR , exploratory lap, irrigation of intraabd cavity and placement of sump drain on 04/25 Draining tube was placed back on drainage due to nursing noting some drainage around there the site surgery evaluated and will do CT abdomen in the morning OOB as tiffanie-Awaiting repeat imaging friday05/18/18 Chronic hep C. Untreated. Outpatient follow-up. Accel Hypertension. Increase Cozaar to 100mg. Cont. Hydralazine prn. Diarrhea: start on lmodium prn x 1 today Tachycardia: secondary to dehydration and deconditioning. Fluids to be given and also start Low dose BB. COPD. Compensated. Neurofibromatosis: Tobacco abuse. Patient counseled on smoking cessation FOR 15 MINS, Patient verbalized understanding and will think about it. Disposition - Patient need LTACH placement after cleared by surgery. History Interval history: Patient seen and examined this am with nursing staff. NO New complaints. No new drainage. diarrhea last night x 2 Hospitalist Physical - Physical exam Narrative exam: VITAL SIGNS: Reviewed. GENERAL: The patient appeared well nourished and normally developed. Vital signs as documented. Temporal wasting noted HEAD: No signs of head trauma. EYES: Pupils are equal. Extraocular motions intact. EARS: Hearing grossly intact. MOUTH: Oropharynx is normal. NECK: No adenopathy, no JVD. CHEST: Chest with clear breath sounds bilaterally. No wheezes, rales, or rhonchi. CARDIAC: Regular rate and rhythm. S1 and S2, without murmurs, gallops, or rubs. VASCULAR: No Edema. Peripheral pulses normal and equal in all extremities. ABDOMEN: Soft, midly distended, some tenderness. bilateral drain noted hypoactive BS No rebound or guarding, and no masses palpated. MUSCULOSKELETAL: Good range of motion of all major joints. Extremities without clubbing, cyanosis or edema. NEUROLOGIC EXAM: Alert and oriented x 3. No focal sensory or strength deficits. Speech normal. Follows commands. PSYCHIATRIC: Mood normal. SKIN: neurofibromatosis lesions on face - Constitutional Vitals: Temp Pulse Resp BP Pulse Ox 98.3 F 107 H 18 135/79 95 05/17/18 05:00 05/17/18 05:00 05/17/18 05:00 05/17/18 05:00 05/17/18 05:00 General appearance: Present: no acute distress, cachectic, other (temporal wasting scaphoid abdomen.) Results - Labs CBC & Chem 7: 05/14/18 06:40 05/17/18 06:07 Labs: Laboratory Last Values WBC 4.5 K/mm3 (4.5-11.0) 05/14/18 06:40 RBC 3.48 M/mm3 (3.65-5.03) L 05/14/18 06:40 Hgb 9.8 gm/dl (10.1-14.3) L 05/14/18 06:40 Hct 29.1 % (30.3-42.9) L 05/14/18 06:40 MCV 83 fl (79-97) 05/14/18 06:40 MCH 28 pg (28-32) 05/14/18 06:40 MCHC 34 % (30-34) 05/14/18 06:40 RDW 15.6 % (13.2-15.2) H 05/14/18 06:40 Plt Count 163 K/mm3 (140-440) 05/14/18 06:40 Lymph % (Auto) 29.1 % (13.4-35.0) 05/08/18 05:38 [place] % (Auto) 7.7 % (0.0-7.3) H 05/08/18 05:38 Eos % (Auto) 3.2 % (0.0-4.3) 05/08/18 05:38 Baso % (Auto) 1.1 % (0.0-1.8) 05/08/18 05:38 Lymph # 1.4 K/mm3 (1.2-5.4) 05/08/18 05:38 [place] # 0.4 K/mm3 (0.0-0.8) 05/08/18 05:38 Eos # 0.2 K/mm3 (0.0-0.4) 05/08/18 05:38 Baso # 0.1 K/mm3 (0.0-0.1) 05/08/18 05:38 Add Manual Diff Complete 04/30/18 05:41 Total Counted 100 04/30/18 05:41 Seg Neutrophils % 58.9 % (40.0-70.0) 05/08/18 05:38 Seg Neuts % (Manual) 88.0 % (40.0-70.0) H 04/30/18 05:41 Band Neutrophils % 1.0 % 04/30/18 05:41 Lymphocytes % (Manual) 8.0 % (13.4-35.0) L 04/30/18 05:41 Reactive Lymphs % (Man) 0 % 04/30/18 05:41 Monocytes % (Manual) 3.0 % (0.0-7.3) 04/30/18 05:41 Eosinophils % (Manual) 0 % (0.0-4.3) 04/30/18 05:41 Basophils % (Manual) 0 % (0.0-1.8) 04/30/18 05:41 Metamyelocytes % 0 % 04/30/18 05:41 Myelocytes % 0 % 04/30/18 05:41 Promyelocytes % 0 % 04/30/18 05:41 Blast Cells % 0 % 04/30/18 05:41 Nucleated RBC % Not Reportable 04/30/18 05:41 Seg Neutrophils # 2.9 K/mm3 (1.8-7.7) 05/08/18 05:38 Seg Neutrophils # Man 7.7 K/mm3 (1.8-7.7) 04/30/18 05:41 Band Neutrophils # 0.1 K/mm3 04/30/18 05:41 Lymphocytes # (Manual) 0.7 K/mm3 (1.2-5.4) L 04/30/18 05:41 Abs React Lymphs (Man) 0.0 K/mm3 04/30/18 05:41 Monocytes # (Manual) 0.3 K/mm3 (0.0-0.8) 04/30/18 05:41 Eosinophils # (Manual) 0.0 K/mm3 (0.0-0.4) 04/30/18 05:41 Basophils # (Manual) 0.0 K/mm3 (0.0-0.1) 04/30/18 05:41 Metamyelocytes # 0.0 K/mm3 04/30/18 05:41 Myelocytes # 0.0 K/mm3 04/30/18 05:41 Promyelocytes # 0.0 K/mm3 04/30/18 05:41 Blast Cells # 0.0 K/mm3 04/30/18 05:41 WBC Morphology Not Reportable 04/30/18 05:41 Hypersegmented Neuts Not Reportable 04/30/18 05:41 Hyposegmented Neuts Not Reportable 04/30/18 05:41 Hypogranular Neuts Not Reportable 04/30/18 05:41 Smudge Cells Not Reportable 04/30/18 05:41 Toxic Granulation Not Reportable 04/30/18 05:41 Toxic Vacuolation Not Reportable 04/30/18 05:41 Dohle Bodies Not Reportable 04/30/18 05:41 Pelger-Huet Anomaly Not Reportable 04/30/18 05:41 Nicole Rods Not Reportable 04/30/18 05:41 Platelet Estimate Appears normal 04/30/18 05:41 Clumped Platelets Not Reportable 04/30/18 05:41 Plt Clumps, EDTA Not Reportable 04/30/18 05:41 Large Platelets Not Reportable 04/30/18 05:41 Giant Platelets Not Reportable 04/30/18 05:41 Platelet Satelliting Not Reportable 04/30/18 05:41 Plt Morphology Comment Not Reportable 04/30/18 05:41 RBC Morphology Not Reportable 04/30/18 05:41 Dimorphic RBCs Not Reportable 04/30/18 05:41 Polychromasia Not Reportable 04/30/18 05:41 Hypochromasia 1+ 04/30/18 05:41 Poikilocytosis Not Reportable 04/30/18 05:41 Anisocytosis 1+ 04/30/18 05:41 Microcytosis Not Reportable 04/30/18 05:41 Macrocytosis Not Reportable 04/30/18 05:41 Spherocytes Not Reportable 04/30/18 05:41 Pappenheimer Bodies Not Reportable 04/30/18 05:41 Sickle Cells Not Reportable 04/30/18 05:41 Target Cells Not Reportable 04/30/18 05:41 Tear Drop Cells Not Reportable 04/30/18 05:41 Ovalocytes Few 04/30/18 05:41 Stomatocytes Few 04/29/18 05:18 Helmet Cells Not Reportable 04/30/18 05:41 [place] Bodies Not Reportable 04/30/18 05:41 [place] Rings Not Reportable 04/30/18 05:41 Philip Cells Not Reportable 04/30/18 05:41 Bite Cells Not Reportable 04/30/18 05:41 Crenated Cell Not Reportable 04/30/18 05:41 Elliptocytes Not Reportable 04/30/18 05:41 Acanthocytes (Spur) Not Reportable 04/30/18 05:41 Rouleaux Not Reportable 04/30/18 05:41 Hemoglobin C Crystals Not Reportable 04/30/18 05:41 Schistocytes Not Reportable 04/30/18 05:41 Malaria parasites Not Reportable 04/30/18 05:41 Hung Bodies Not Reportable 04/30/18 05:41 Hem Pathologist Commnt No 04/30/18 05:41 PT 15.3 Sec. (12.2-14.9) H 04/22/18 05:19 INR 1.17 (0.87-1.13) H 04/22/18 05:19 APTT 29.4 Sec. (24.2-36.6) 04/19/18 05:19 POC ABG pH 7.367 (7.35-7.45) 04/19/18 00:19 POC ABG pCO2 36.8 (35-45) 04/19/18 00:19 POC ABG pO2 84 (80-105) 04/19/18 00:19 POC ABG HCO3 21.1 04/19/18 00:19 POC ABG Total CO2 22 04/19/18 00:19 POC ABG O2 Sat 96 04/19/18 00:19 POC ABG Base Excess -4 04/19/18 00:19 VBG pH 7.439 (7.320-7.420) H 04/18/18 14:30 FiO2 32 % 04/19/18 00:19 Sodium 135 mmol/L (137-145) L 05/17/18 06:07 Potassium 3.8 mmol/L (3.6-5.0) 05/17/18 06:07 Chloride 98.3 mmol/L (98-107) 05/17/18 06:07 Carbon Dioxide 27 mmol/L (22-30) 05/17/18 06:07 Anion Gap 14 mmol/L 05/17/18 06:07 BUN 12 mg/dL (7-17) 05/17/18 06:07 Creatinine 0.2 mg/dL (0.7-1.2) L 05/17/18 06:07 Estimated GFR > 60 ml/min 05/17/18 06:07 BUN/Creatinine Ratio 60 % 05/17/18 06:07 Glucose 133 mg/dL (65-100) H 05/17/18 06:07 POC Glucose 128 (70-105) H 05/17/18 05:06 Lactic Acid 0.90 mmol/L (0.7-2.0) 04/18/18 18:41 Calcium 8.5 mg/dL (8.4-10.2) 05/17/18 06:07 Phosphorus 3.60 mg/dL (2.5-4.5) 05/17/18 06:07 Magnesium 1.90 mg/dL (1.7-2.3) 05/17/18 06:07 Total Bilirubin 0.60 mg/dL (0.1-1.2) 05/13/18 Unknown AST 41 units/L (5-40) H 05/13/18 Unknown ALT 38 units/L (7-56) 05/13/18 Unknown Alkaline Phosphatase 97 units/L (35-129) 05/13/18 Unknown Total Protein 6.5 g/dL (6.3-8.2) 05/13/18 Unknown Albumin 3.5 g/dL (3.9-5) L 05/13/18 Unknown Albumin/Globulin Ratio 1.2 % 05/13/18 Unknown Triglycerides 113 mg/dL (2-149) 05/13/18 Unknown Urine Color Yellow (Yellow) 04/20/18 13:35 Urine Turbidity Clear (Clear) 04/20/18 13:35 Urine pH 5.0 (5.0-7.0) 04/20/18 13:35 Ur Specific [place] 1.011 (1.003-1.030) 04/20/18 13:35 Urine Protein <15 mg/dl mg/dL (Negative) 04/20/18 13:35 Urine Glucose (UA) Neg mg/dL (Negative) 04/20/18 13:35 Urine Ketones 20 mg/dL (Negative) 04/20/18 13:35 Urine Blood Sm (Negative) 04/20/18 13:35 Urine Nitrite Neg (Negative) 04/20/18 13:35 Urine Bilirubin Neg (Negative) 04/20/18 13:35 Urine Urobilinogen 2.0 mg/dL (<2.0) 04/20/18 13:35 Ur Leukocyte Esterase Tr (Negative) 04/20/18 13:35 Urine WBC (Auto) 2.0 /HPF (0.0-6.0) 04/20/18 13:35 Urine RBC (Auto) 1.0 /HPF (0.0-6.0) 04/20/18 13:35 U Epithel Cells (Auto) 2.0 /HPF (0-13.0) 04/18/18 16:45 Urine Bacteria (Auto) 2+ /HPF (Negative) 04/18/18 16:45 Urine Mucus Few /HPF 04/20/18 13:35 Blood Type O POSITIVE 04/19/18 13:05 Antibody Screen Negative 04/19/18 13:05 Crossmatch See Detail 04/19/18 13:05 Nutrition/Malnutrition Assess - Dietary Evaluation Nutrition/Malnutrition Findings: Nutrition Notes Start: 04/24/18 09:13 Freq: Status: Active Protocol: Document 05/17/18 12:52 MORALESANDERSON (Rec: 05/17/18 12:54 MARCO SRW- [email or web address]) Nutrition Notes Initial or Follow up Reassessment Other Pertinent Diagnosis Perforated appendix s/p exp lap, Hep C Current Diet TPN at 75ml/hr Labs/Tests Na 135 Pertinent Medications Reviewed Height 5 ft 1 in Weight 40.4 kg [place] Body Weight (kg) 47.72 BMI 16.8 Subjective/Other Information Day 21 TPN. Percent of energy/protein needs met: 100% energy and pro Burn Absent Trauma Absent #2 Nutrition Diagnosis Increased nutrient needs ( specify in comment below) Diagnosis Progress(for reassessment Continues documentation) #1 Nutrition Diagnosis Inadequate oral intake Diagnosis Progress(for reassessment Continues documentation) Is patient on ventilator? No Is Patient Ambulatory and/or Out of Bed Yes REE-([facility]-ambulatory/OOB) [ 1210.794 [id number]] Kcal/Kg value to use for calculation 40 Approximate Energy Requirements Using 1616 kcal/Kg Calculation Used for Recommendations Kcal/kg Additional Notes Pro needs 1.25-1.5g/k-61g /day Fluid needs 1ml/kcal Nutrition Intervention Nutrition Support: Continue TPN at 75 ml/hr: MVI. Osmolality: 1708 Kcal 1,315 Protein (gm) 95 Carbohydrates (gm) 275 Fat (gm) 0 Fluid (mL) 1,800 Fiber (gm) 0 Goal #1 CPN to meet 90-100% energy and pro needs Goal #2 Wt gain/maintenance Follow-Up By: 05/18/18 Additional Comments Labs in am: BMP, Mg, Phos - Attestation Statement I have reviewed and agreed w/ Malnutrition eval & tx plan: Yes
--- NOTE | 2018-05-17 13:24 | Progress Note ---
Assessment and Plan Patient awake and weak. Resting on room air at this time.O2 saturation 95%.No complaint of chest pain, shortness of breath or cough. - Patient Problems (1) Appendicitis with perforation Current Visit: Yes Status: Acute Plan to address problem: S/p resection of perforated appendex. (2) Sepsis Current Visit: Yes Status: Acute Qualifiers: Sepsis type: Escherichia coli Qualified Code(s): A41.51 - Sepsis due to Escherichia coli [E. coli] Plan to address problem: Resolved. Patient off the antibiotics. (3) Acute metabolic encephalopathy Current Visit: No Status: Acute Plan to address problem: Appears improved. Management as per primary care. (4) Marijuana abuse Current Visit: No Status: Acute Plan to address problem: Counselled not use marijuana. Subjective Date of service: 05/17/18 Principal diagnosis: Sepsis; Ex-lap appendectomy and evacuation of pelvic abscess; Peritonitis Interval history: Patient awake and weak. Resting on room air at this time.O2 saturation 95%.No complaint of chest pain, shortness of breath or cough. Objective Vital Signs - 12hr 05/17/18 05:00 Temperature 98.3 F Pulse Rate 107 H Respiratory 18 Rate Blood Pressure 135/79 O2 Sat by Pulse 95 Oximetry Constitutional: no acute distress, alert, other (chronically ill looking this middle aged CF, normocephalic) Eyes: non-icteric ENT: oropharynx moist, other (Mallampati 2) Neck: supple, no lymphadenopathy, no JVD Effort: mildly labored Ascultation: Bilateral: diminished breath sounds, rhonchi (scant in bases) Percussion: Bilateral: not dull Cardiovascular: regular rate and rhythm Gastrointestinal: normoactive bowel sounds, soft, tender (bhargav-op site), non- distended, other (Drain in place with non-bloody effluent) Integumentary: other (poor turgor; ? neurofibromatous nodules over body) Extremities: no cyanosis, no edema, pink and warm, pulses normal Neurologic: normal mental status, non-focal exam, pupils equal and round, motor strength normal and Psychiatric: mood appropriate, anxious CBC and BMP: 05/14/18 06:40 05/17/18 06:07 ABG, PT/INR, D-dimer: ABG POC ABG pH 7.367 (7.35-7.45) 04/19/18 00:19 POC ABG pCO2 36.8 (35-45) 04/19/18 00:19 POC ABG pO2 84 (80-105) 04/19/18 00:19 POC ABG HCO3 21.1 04/19/18 00:19 POC ABG Total CO2 22 04/19/18 00:19 POC ABG O2 Sat 96 04/19/18 00:19 PT/INR, D-dimer PT 15.3 Sec. (12.2-14.9) H 04/22/18 05:19 INR 1.17 (0.87-1.13) H 04/22/18 05:19 Abnormal lab findings: Abnormal Labs 04/18/18 04/18/18 04/18/18 14:30 14:30 14:30 WBC 18.6 H RBC Hgb Hct RDW Lymph % (Auto) [place] % (Auto) Lymph # Seg Neutrophils % Seg Neuts % (Manual) 79.0 H Lymphocytes % (Manual) 4.0 L Seg Neutrophils # Man 14.7 H Lymphocytes # (Manual) 0.7 L PT 16.3 H INR 1.27 H VBG pH Sodium 121 L Potassium 3.0 L Chloride 78.0 L Carbon Dioxide BUN Creatinine 0.5 L Glucose 110 H POC Glucose Lactic Acid Calcium Phosphorus Magnesium Total Bilirubin 1.30 H AST 42 H Total Protein Albumin 3.1 L Crossmatch 04/18/18 04/18/18 04/18/18 14:30 14:30 23:59 WBC RBC Hgb Hct RDW 15.8 H Lymph % (Auto) [place] % (Auto) Lymph # Seg Neutrophils % Seg Neuts % (Manual) 78.0 H Lymphocytes % (Manual) 6.0 L Seg Neutrophils # Man Lymphocytes # (Manual) 0.5 L PT INR VBG pH 7.439 H Sodium Potassium Chloride Carbon Dioxide BUN Creatinine Glucose POC Glucose Lactic Acid 3.60 H* Calcium Phosphorus Magnesium Total Bilirubin AST Total Protein Albumin Crossmatch 04/18/18 04/19/18 04/19/18 23:59 05:19 05:19 WBC 15.0 H RBC Hgb Hct RDW 15.3 H Lymph % (Auto) [place] % (Auto) Lymph # Seg Neutrophils % Seg Neuts % (Manual) Lymphocytes % (Manual) 5.0 L Seg Neutrophils # Man 8.3 H Lymphocytes # (Manual) 0.8 L PT INR VBG pH Sodium 130 L D 133 L Potassium 3.5 L 3.3 L Chloride Carbon Dioxide 20 L D BUN Creatinine 0.5 L 0.6 L Glucose 140 H 115 H POC Glucose Lactic Acid Calcium 7.5 L 7.4 L Phosphorus Magnesium Total Bilirubin AST Total Protein 4.4 L D 4.1 L Albumin 2.0 L 1.9 L Crossmatch 04/19/18 04/19/18 04/20/18 05:19 13:05 05:18 WBC RBC Hgb Hct RDW Lymph % (Auto) [place] % (Auto) Lymph # Seg Neutrophils % Seg Neuts % (Manual) Lymphocytes % (Manual) Seg Neutrophils # Man Lymphocytes # (Manual) PT 19.4 H 17.4 H INR 1.59 H 1.38 H VBG pH Sodium Potassium Chloride Carbon Dioxide BUN Creatinine Glucose POC Glucose Lactic Acid Calcium Phosphorus Magnesium Total Bilirubin AST Total Protein Albumin Crossmatch See Detail 04/20/18 04/20/18 04/21/18 13:47 13:47 04:52 WBC RBC 3.29 L 3.10 L Hgb 9.6 L 8.8 L Hct 28.1 L D 26.6 L RDW 15.3 H 15.4 H Lymph % (Auto) 5.6 L [place] % (Auto) Lymph # 0.4 L Seg Neutrophils % 87.3 H Seg Neuts % (Manual) Lymphocytes % (Manual) Seg Neutrophils # Man Lymphocytes # (Manual) PT INR VBG pH Sodium Potassium Chloride Carbon Dioxide BUN Creatinine 0.3 L Glucose 102 H POC Glucose Lactic Acid Calcium 8.0 L Phosphorus Magnesium Total Bilirubin AST Total Protein Albumin Crossmatch 04/21/18 04/22/18 04/22/18 04:52 05:19 05:19 WBC RBC 3.64 L Hgb Hct RDW Lymph % (Auto) 8.5 L [place] % (Auto) 9.9 H Lymph # 0.6 L Seg Neutrophils % 81.0 H Seg Neuts % (Manual) Lymphocytes % (Manual) Seg Neutrophils # Man Lymphocytes # (Manual) PT 15.3 H INR 1.17 H VBG pH Sodium Potassium 3.2 L Chloride Carbon Dioxide BUN Creatinine 0.3 L Glucose POC Glucose Lactic Acid Calcium 7.6 L Phosphorus Magnesium Total Bilirubin AST Total Protein Albumin Crossmatch 04/22/18 04/24/18 04/24/18 05:19 07:19 07:19 WBC RBC Hgb Hct RDW Lymph % (Auto) [place] % (Auto) Lymph # Seg Neutrophils % Seg Neuts % (Manual) Lymphocytes % (Manual) Seg Neutrophils # Man Lymphocytes # (Manual) PT INR VBG pH Sodium Potassium 3.4 L 2.9 L* Chloride Carbon Dioxide BUN Creatinine 0.3 L 0.3 L Glucose 103 H POC Glucose Lactic Acid Calcium 7.7 L 7.5 L Phosphorus Magnesium 1.60 L Total Bilirubin AST Total Protein 4.3 L Albumin 2.2 L Crossmatch 04/24/18 04/25/18 04/25/18 07:23 06:28 06:28 WBC RBC Hgb Hct RDW 15.3 H 15.9 H Lymph % (Auto) 10.1 L [place] % (Auto) Lymph # 0.8 L Seg Neutrophils % 80.6 H Seg Neuts % (Manual) Lymphocytes % (Manual) 9.0 L Seg Neutrophils # Man Lymphocytes # (Manual) 0.7 L PT INR VBG pH Sodium Potassium 3.0 L Chloride Carbon Dioxide BUN 5 L Creatinine 0.2 L Glucose 108 H POC Glucose Lactic Acid Calcium 7.4 L Phosphorus Magnesium Total Bilirubin AST Total Protein 4.6 L Albumin 2.5 L Crossmatch 04/25/18 04/26/18 04/26/18 06:28 05:45 05:45 WBC 11.9 H RBC Hgb Hct RDW 16.2 H Lymph % (Auto) [place] % (Auto) Lymph # Seg Neutrophils % Seg Neuts % (Manual) Lymphocytes % (Manual) Seg Neutrophils # Man Lymphocytes # (Manual) PT INR VBG pH Sodium Potassium Chloride Carbon Dioxide BUN 5 L Creatinine 0.2 L Glucose 119 H POC Glucose Lactic Acid Calcium 7.7 L Phosphorus 2.00 L 2.20 L Magnesium Total Bilirubin AST Total Protein Albumin Crossmatch 04/27/18 04/28/18 04/28/18 05:33 06:00 06:00 WBC 11.2 H RBC Hgb Hct RDW 16.0 H Lymph % (Auto) [place] % (Auto) Lymph # Seg Neutrophils % Seg Neuts % (Manual) 92.0 H Lymphocytes % (Manual) 5.0 L Seg Neutrophils # Man 10.3 H Lymphocytes # (Manual) 0.6 L PT INR VBG pH Sodium Potassium 3.4 L 3.1 L Chloride Carbon Dioxide BUN 6 L 4 L Creatinine 0.2 L 0.2 L Glucose 119 H POC Glucose Lactic Acid Calcium 7.5 L 7.1 L Phosphorus 2.00 L 2.10 L Magnesium 1.50 L Total Bilirubin AST Total Protein 4.3 L Albumin 2.1 L Crossmatch 04/29/18 04/29/18 04/29/18 05:18 05:18 17:49 WBC 12.0 H RBC Hgb Hct RDW 16.0 H Lymph % (Auto) [place] % (Auto) Lymph # Seg Neutrophils % Seg Neuts % (Manual) 87.0 H Lymphocytes % (Manual) 10.0 L Seg Neutrophils # Man 10.4 H Lymphocytes # (Manual) PT INR VBG pH Sodium 135 L Potassium Chloride Carbon Dioxide BUN Creatinine 0.2 L Glucose 120 H POC Glucose 108 H Lactic Acid Calcium 7.5 L Phosphorus Magnesium Total Bilirubin AST Total Protein Albumin Crossmatch 04/30/18 04/30/18 04/30/18 00:03 05:18 05:41 WBC RBC Hgb Hct RDW Lymph % (Auto) [place] % (Auto) Lymph # Seg Neutrophils % Seg Neuts % (Manual) Lymphocytes % (Manual) Seg Neutrophils # Man Lymphocytes # (Manual) PT INR VBG pH Sodium 133 L Potassium Chloride Carbon Dioxide BUN Creatinine 0.2 L Glucose 119 H POC Glucose 112 H 110 H Lactic Acid Calcium 7.5 L Phosphorus Magnesium Total Bilirubin AST Total Protein Albumin Crossmatch 04/30/18 05/01/18 05/01/18 05:41 00:39 04:45 WBC RBC 3.60 L Hgb Hct RDW 16.0 H Lymph % (Auto) [place] % (Auto) Lymph # Seg Neutrophils % Seg Neuts % (Manual) 88.0 H Lymphocytes % (Manual) 8.0 L Seg Neutrophils # Man Lymphocytes # (Manual) 0.7 L PT INR VBG pH Sodium 132 L Potassium Chloride Carbon Dioxide BUN Creatinine 0.2 L Glucose 101 H POC Glucose 119 H Lactic Acid Calcium 7.6 L Phosphorus Magnesium Total Bilirubin AST Total Protein Albumin Crossmatch 05/01/18 05/01/18 05/01/18 06:30 16:09 23:42 WBC RBC Hgb Hct RDW Lymph % (Auto) [place] % (Auto) Lymph # Seg Neutrophils % Seg Neuts % (Manual) Lymphocytes % (Manual) Seg Neutrophils # Man Lymphocytes # (Manual) PT INR VBG pH Sodium Potassium Chloride Carbon Dioxide BUN Creatinine Glucose POC Glucose 126 H 160 H 113 H Lactic Acid Calcium Phosphorus Magnesium Total Bilirubin AST Total Protein Albumin Crossmatch 05/02/18 05/02/18 05/02/18 04:55 06:41 11:53 WBC RBC Hgb Hct RDW Lymph % (Auto) [place] % (Auto) Lymph # Seg Neutrophils % Seg Neuts % (Manual) Lymphocytes % (Manual) Seg Neutrophils # Man Lymphocytes # (Manual) PT INR VBG pH Sodium 134 L Potassium Chloride Carbon Dioxide BUN Creatinine 0.2 L Glucose 113 H POC Glucose 146 H 113 H Lactic Acid Calcium 7.4 L Phosphorus Magnesium Total Bilirubin AST Total Protein Albumin Crossmatch 05/02/18 05/02/18 05/03/18 17:33 23:37 08:46 WBC RBC 3.36 L Hgb 9.7 L Hct 28.7 L RDW 16.3 H Lymph % (Auto) [place] % (Auto) 10.0 H Lymph # Seg Neutrophils % Seg Neuts % (Manual) Lymphocytes % (Manual) Seg Neutrophils # Man Lymphocytes # (Manual) PT INR VBG pH Sodium Potassium Chloride Carbon Dioxide BUN Creatinine Glucose POC Glucose 106 H 123 H Lactic Acid Calcium Phosphorus Magnesium Total Bilirubin AST Total Protein Albumin Crossmatch 05/03/18 05/03/18 05/04/18 11:54 12:15 06:59 WBC RBC Hgb Hct RDW Lymph % (Auto) [place] % (Auto) Lymph # Seg Neutrophils % Seg Neuts % (Manual) Lymphocytes % (Manual) Seg Neutrophils # Man Lymphocytes # (Manual) PT INR VBG pH Sodium 136 L Potassium Chloride Carbon Dioxide BUN Creatinine 0.2 L Glucose 131 H POC Glucose 109 H 161 H Lactic Acid Calcium 7.6 L Phosphorus Magnesium Total Bilirubin AST Total Protein Albumin Crossmatch 05/04/18 05/04/18 05/04/18 07:03 08:02 11:10 WBC RBC 3.52 L Hgb Hct 29.8 L RDW 16.2 H Lymph % (Auto) [place] % (Auto) 8.6 H Lymph # Seg Neutrophils % Seg Neuts % (Manual) Lymphocytes % (Manual) Seg Neutrophils # Man Lymphocytes # (Manual) PT INR VBG pH Sodium 135 L Potassium Chloride Carbon Dioxide BUN Creatinine 0.2 L Glucose 160 H POC Glucose 106 H Lactic Acid Calcium 7.7 L Phosphorus Magnesium Total Bilirubin AST Total Protein Albumin Crossmatch 05/04/18 05/05/18 05/05/18 23:38 11:28 16:55 WBC RBC Hgb Hct RDW Lymph % (Auto) [place] % (Auto) Lymph # Seg Neutrophils % Seg Neuts % (Manual) Lymphocytes % (Manual) Seg Neutrophils # Man Lymphocytes # (Manual) PT INR VBG pH Sodium Potassium Chloride Carbon Dioxide BUN Creatinine Glucose POC Glucose 121 H 119 H 108 H Lactic Acid Calcium Phosphorus Magnesium Total Bilirubin AST Total Protein Albumin Crossmatch 05/05/18 05/06/18 05/06/18 Unknown 05:35 16:40 WBC RBC Hgb Hct RDW Lymph % (Auto) [place] % (Auto) Lymph # Seg Neutrophils % Seg Neuts % (Manual) Lymphocytes % (Manual) Seg Neutrophils # Man Lymphocytes # (Manual) PT INR VBG pH Sodium 135 L 136 L Potassium Chloride 97.9 L Carbon Dioxide BUN Creatinine 0.2 L 0.2 L Glucose 119 H POC Glucose 133 H Lactic Acid Calcium 8.0 L 8.1 L Phosphorus Magnesium Total Bilirubin AST 46 H Total Protein 5.5 L Albumin 2.7 L Crossmatch 05/06/18 05/07/18 05/07/18 22:07 05:38 05:40 WBC RBC Hgb Hct RDW Lymph % (Auto) [place] % (Auto) Lymph # Seg Neutrophils % Seg Neuts % (Manual) Lymphocytes % (Manual) Seg Neutrophils # Man Lymphocytes # (Manual) PT INR VBG pH Sodium 133 L Potassium Chloride Carbon Dioxide BUN Creatinine 0.2 L Glucose POC Glucose 168 H 107 H Lactic Acid Calcium 8.2 L Phosphorus Magnesium Total Bilirubin AST Total Protein Albumin Crossmatch 05/07/18 05/07/18 05/08/18 11:56 18:04 05:38 WBC RBC Hgb Hct RDW 16.3 H Lymph % (Auto) [place] % (Auto) 7.7 H Lymph # Seg Neutrophils % Seg Neuts % (Manual) Lymphocytes % (Manual) Seg Neutrophils # Man Lymphocytes # (Manual) PT INR VBG pH Sodium Potassium Chloride Carbon Dioxide BUN Creatinine Glucose POC Glucose 145 H 125 H Lactic Acid Calcium Phosphorus Magnesium Total Bilirubin AST Total Protein Albumin Crossmatch 05/08/18 05/08/18 05/08/18 05:38 11:35 16:23 WBC RBC Hgb Hct RDW Lymph % (Auto) [place] % (Auto) Lymph # Seg Neutrophils % Seg Neuts % (Manual) Lymphocytes % (Manual) Seg Neutrophils # Man Lymphocytes # (Manual) PT INR VBG pH Sodium 135 L Potassium Chloride Carbon Dioxide BUN Creatinine 0.2 L Glucose POC Glucose 118 H 131 H Lactic Acid Calcium Phosphorus Magnesium Total Bilirubin AST Total Protein Albumin Crossmatch 05/08/18 05/09/18 05/09/18 21:40 05:46 06:15 WBC RBC Hgb Hct RDW Lymph % (Auto) [place] % (Auto) Lymph # Seg Neutrophils % Seg Neuts % (Manual) Lymphocytes % (Manual) Seg Neutrophils # Man Lymphocytes # (Manual) PT INR VBG pH Sodium 135 L Potassium Chloride 97.5 L Carbon Dioxide BUN Creatinine 0.2 L Glucose POC Glucose 110 H 115 H Lactic Acid Calcium Phosphorus Magnesium Total Bilirubin AST Total Protein Albumin Crossmatch 05/09/18 05/09/18 05/10/18 11:28 23:53 06:22 WBC RBC Hgb Hct RDW Lymph % (Auto) [place] % (Auto) Lymph # Seg Neutrophils % Seg Neuts % (Manual) Lymphocytes % (Manual) Seg Neutrophils # Man Lymphocytes # (Manual) PT INR VBG pH Sodium Potassium Chloride Carbon Dioxide BUN Creatinine Glucose POC Glucose 145 H 132 H 149 H Lactic Acid Calcium Phosphorus Magnesium Total Bilirubin AST Total Protein Albumin Crossmatch 05/10/18 05/10/18 05/11/18 16:14 23:24 05:00 WBC RBC Hgb Hct RDW Lymph % (Auto) [place] % (Auto) Lymph # Seg Neutrophils % Seg Neuts % (Manual) Lymphocytes % (Manual) Seg Neutrophils # Man Lymphocytes # (Manual) PT INR VBG pH Sodium Potassium Chloride Carbon Dioxide BUN Creatinine 0.2 L Glucose 113 H POC Glucose 119 H 119 H Lactic Acid Calcium Phosphorus Magnesium Total Bilirubin AST Total Protein Albumin Crossmatch 05/11/18 05/11/18 05/11/18 05:57 11:23 16:29 WBC RBC Hgb Hct RDW Lymph % (Auto) [place] % (Auto) Lymph # Seg Neutrophils % Seg Neuts % (Manual) Lymphocytes % (Manual) Seg Neutrophils # Man Lymphocytes # (Manual) PT INR VBG pH Sodium Potassium Chloride Carbon Dioxide BUN Creatinine Glucose POC Glucose 173 H 143 H 159 H Lactic Acid Calcium Phosphorus Magnesium Total Bilirubin AST Total Protein Albumin Crossmatch 05/12/18 05/12/18 05/12/18 00:47 06:23 11:21 WBC RBC Hgb Hct RDW Lymph % (Auto) [place] % (Auto) Lymph # Seg Neutrophils % Seg Neuts % (Manual) Lymphocytes % (Manual) Seg Neutrophils # Man Lymphocytes # (Manual) PT INR VBG pH Sodium Potassium Chloride Carbon Dioxide BUN Creatinine Glucose POC Glucose 139 H 136 H 116 H Lactic Acid Calcium Phosphorus Magnesium Total Bilirubin AST Total Protein Albumin Crossmatch 05/12/18 05/12/18 05/12/18 17:19 17:22 22:22 WBC RBC Hgb Hct RDW Lymph % (Auto) [place] % (Auto) Lymph # Seg Neutrophils % Seg Neuts % (Manual) Lymphocytes % (Manual) Seg Neutrophils # Man Lymphocytes # (Manual) PT INR VBG pH Sodium Potassium Chloride Carbon Dioxide BUN Creatinine Glucose POC Glucose 329 H 116 H 124 H Lactic Acid Calcium Phosphorus Magnesium Total Bilirubin AST Total Protein Albumin Crossmatch 05/13/18 05/13/18 05/13/18 18:35 22:25 Unknown WBC RBC Hgb Hct RDW Lymph % (Auto) [place] % (Auto) Lymph # Seg Neutrophils % Seg Neuts % (Manual) Lymphocytes % (Manual) Seg Neutrophils # Man Lymphocytes # (Manual) PT INR VBG pH Sodium 136 L Potassium Chloride 97.8 L Carbon Dioxide BUN Creatinine 0.2 L Glucose POC Glucose 137 H 106 H Lactic Acid Calcium Phosphorus Magnesium Total Bilirubin AST 41 H Total Protein Albumin 3.5 L Crossmatch 05/14/18 05/14/18 05/14/18 06:40 06:40 12:48 WBC RBC 3.48 L Hgb 9.8 L Hct 29.1 L RDW 15.6 H Lymph % (Auto) [place] % (Auto) Lymph # Seg Neutrophils % Seg Neuts % (Manual) Lymphocytes % (Manual) Seg Neutrophils # Man Lymphocytes # (Manual) PT INR VBG pH Sodium Potassium Chloride Carbon Dioxide BUN Creatinine 0.2 L Glucose POC Glucose 113 H Lactic Acid Calcium 8.1 L Phosphorus Magnesium Total Bilirubin AST Total Protein Albumin Crossmatch 05/14/18 05/14/18 05/15/18 17:52 22:04 05:10 WBC RBC Hgb Hct RDW Lymph % (Auto) [place] % (Auto) Lymph # Seg Neutrophils % Seg Neuts % (Manual) Lymphocytes % (Manual) Seg Neutrophils # Man Lymphocytes # (Manual) PT INR VBG pH Sodium 135 L Potassium Chloride Carbon Dioxide BUN Creatinine 0.2 L Glucose POC Glucose 106 H 107 H Lactic Acid Calcium 8.2 L Phosphorus Magnesium Total Bilirubin AST Total Protein Albumin Crossmatch 05/15/18 05/15/18 05/15/18 06:24 11:31 16:47 WBC RBC Hgb Hct RDW Lymph % (Auto) [place] % (Auto) Lymph # Seg Neutrophils % Seg Neuts % (Manual) Lymphocytes % (Manual) Seg Neutrophils # Man Lymphocytes # (Manual) PT INR VBG pH Sodium Potassium Chloride Carbon Dioxide BUN Creatinine Glucose POC Glucose 125 H 133 H 135 H Lactic Acid Calcium Phosphorus Magnesium Total Bilirubin AST Total Protein Albumin Crossmatch 05/16/18 05/16/18 05/16/18 00:13 04:30 05:59 WBC RBC Hgb Hct RDW Lymph % (Auto) [place] % (Auto) Lymph # Seg Neutrophils % Seg Neuts % (Manual) Lymphocytes % (Manual) Seg Neutrophils # Man Lymphocytes # (Manual) PT INR VBG pH Sodium Potassium Chloride Carbon Dioxide BUN Creatinine 0.2 L Glucose POC Glucose 132 H 113 H Lactic Acid Calcium Phosphorus Magnesium Total Bilirubin AST Total Protein Albumin Crossmatch 05/16/18 05/16/18 05/17/18 13:03 18:51 05:06 WBC RBC Hgb Hct RDW Lymph % (Auto) [place] % (Auto) Lymph # Seg Neutrophils % Seg Neuts % (Manual) Lymphocytes % (Manual) Seg Neutrophils # Man Lymphocytes # (Manual) PT INR VBG pH Sodium Potassium Chloride Carbon Dioxide BUN Creatinine Glucose POC Glucose 112 H 111 H 128 H Lactic Acid Calcium Phosphorus Magnesium Total Bilirubin AST Total Protein Albumin Crossmatch 05/17/18 06:07 WBC RBC Hgb Hct RDW Lymph % (Auto) [place] % (Auto) Lymph # Seg Neutrophils % Seg Neuts % (Manual) Lymphocytes % (Manual) Seg Neutrophils # Man Lymphocytes # (Manual) PT INR VBG pH Sodium 135 L Potassium Chloride Carbon Dioxide BUN Creatinine 0.2 L Glucose 133 H POC Glucose Lactic Acid Calcium Phosphorus Magnesium Total Bilirubin AST Total Protein Albumin Crossmatch Allied health notes reviewed: nursing
[2018-05-17] MEDS: IMODIUM PO PRN (17:11)
[2018-05-17] MEDS ORDERED: TPN ADULT 1,800 ML IV SCH (20:00)
[2018-05-17] MEDS: REMERON PO SCH (21:53)
[2018-05-18] MEDS: DILAUDID IV PRN ×5 (04:07→21:35)
[2018-05-18] MEDS: NEURONTIN PO SCH ×3 (07:29→21:59)
[2018-05-18] MEDS: ZOFRAN IV PRN (07:29)
[2018-05-18] MEDS: PULMICORT IH SCH ×2 (07:36→19:51)
[2018-05-18] MEDS: BROVANA NEBU IH SCH ×2 (07:39→19:51)
[2018-05-18 08:20] LABS: BUN/Creatinine Ratio 70; Blood Urea Nitrogen 14 mg/dL (7-17); Calcium 8.2 mg/dL (8.4-10.2); Hemolysis Index 4
[2018-05-18] MEDS: LOPRESSOR PO SCH ×2 (09:23→21:36)
[2018-05-18] MEDS: PEPCID IV SCH ×2 (09:24→22:01)
[2018-05-18] MEDS: COZAAR PO SCH (09:24)
--- NOTE | 2018-05-18 10:10 | Cat Scan Report ---
CT ABDOMEN PELVIS WITHOUT CONTRAST: HISTORY: Bowel leak. COMPARISON: 05/08/18. TECHNIQUE: Helical CT in 1.25mm intervals without IV contrast. Sagittal and coronal reconstructions. FINDINGS: The pelvic drain is unchanged in position and contains trace oral contrast and gas. No ksenia abscess is visualized. There appears to be continued improvement since 05/08/18. The remainder of the examination is unchanged since the comparison exam. IMPRESSION: Continued improvement in the pelvic drain/fluid collection since 05/08/18. No new acute process is appreciated.
--- NOTE | 2018-05-18 11:57 | Progress Note ---
Assessment and Plan Sepsis. Etiology secondary to gangrenous and perforated appendix causing intra- abdominal/pelvic abscess. status post exploratory laparotomy with appendectomy and evacuation of pelvic abscess. Intrabdominal sepsis/peritonitis Ruptured appendix with abdominal abscess Tobacco abuse disorder COPD Neurofibromatosis - tentatively for CT abdomen & pelvis in am and i will review lung windows - continue supplemental oxygen to keep O2 sats > 90% (especially while asleep) - continue bronchodilators with pulmonary hygiene per RT - changed albuterol to prn and continuing scheduled brovana with pulmicort for chronic COPD - advance diet per surgeon (remains on TPN) - continue aspiration precautions - abdominal drain to suction (adjust per surgeon) - s/p antibiotics course - IV fluids per surgeon - VTE prophylaxis - PT/OT/Mobility, OOB to chair daily - continue incentive spirometry - continue nicotine withdrawal precautions - Smoking cessation counselling was done at the bedside again today - Analgesia, pain management - NPO for now, serial abdominal exams ...d/c planning tentatively for LTAC ... re-evaluate in am & prn Subjective Date of service: 05/18/18 Principal diagnosis: Sepsis; Ex-lap appendectomy and evacuation of pelvic abscess; Peritonitis Interval history: Patient is seen today for: Sepsis; status post exploratory laparotomy with appendectomy and evacuation of pelvic abscess; Intrabdominal sepsis/peritonitis; Ruptured appendix with abdominal abscess Seen and examined at bedside; 24hour events reviewed; nursing and respiratory care staff consulted; no adverse overnight events reported to me; resting in bed; Objective Vital Signs - 12hr 05/18/18 05/18/18 03:19 07:27 Temperature 99.4 F 98.4 F Pulse Rate 97 H 101 H Respiratory 18 18 Rate Blood Pressure 140/74 140/88 O2 Sat by Pulse 96 97 Oximetry Constitutional: alert, appears uncomfortable, other (chronically ill looking this middle aged CF, normocephalic) Eyes: non-icteric ENT: oropharynx moist, other (Mallampati 2) Neck: supple, no lymphadenopathy, no JVD Effort: mildly labored Ascultation: Bilateral: diminished breath sounds, rhonchi (scant in bases) Percussion: Bilateral: not dull Cardiovascular: regular rate and rhythm Gastrointestinal: normoactive bowel sounds, soft, tender (bhargav-op site), non- distended, other (Drain in place with non-bloody effluent) Integumentary: other (poor turgor; ? neurofibromatous nodules over body) Extremities: no cyanosis, no edema, pink and warm, pulses normal Neurologic: normal mental status, non-focal exam, pupils equal and round, motor strength normal and Psychiatric: mood appropriate, anxious CBC and BMP: 05/14/18 06:40 05/18/18 07:43 ABG, PT/INR, D-dimer: ABG POC ABG pH 7.367 (7.35-7.45) 04/19/18 00:19 POC ABG pCO2 36.8 (35-45) 04/19/18 00:19 POC ABG pO2 84 (80-105) 04/19/18 00:19 POC ABG HCO3 21.1 04/19/18 00:19 POC ABG Total CO2 22 04/19/18 00:19 POC ABG O2 Sat 96 04/19/18 00:19 PT/INR, D-dimer PT 15.3 Sec. (12.2-14.9) H 04/22/18 05:19 INR 1.17 (0.87-1.13) H 04/22/18 05:19 Abnormal lab findings: Abnormal Labs 04/18/18 04/18/18 04/18/18 14:30 14:30 14:30 WBC 18.6 H RBC Hgb Hct RDW Lymph % (Auto) [place] % (Auto) Lymph # Seg Neutrophils % Seg Neuts % (Manual) 79.0 H Lymphocytes % (Manual) 4.0 L Seg Neutrophils # Man 14.7 H Lymphocytes # (Manual) 0.7 L PT 16.3 H INR 1.27 H VBG pH Sodium 121 L Potassium 3.0 L Chloride 78.0 L Carbon Dioxide BUN Creatinine 0.5 L Glucose 110 H POC Glucose Lactic Acid Calcium Phosphorus Magnesium Total Bilirubin 1.30 H AST 42 H Total Protein Albumin 3.1 L Crossmatch 04/18/18 04/18/18 04/18/18 14:30 14:30 23:59 WBC RBC Hgb Hct RDW 15.8 H Lymph % (Auto) [place] % (Auto) Lymph # Seg Neutrophils % Seg Neuts % (Manual) 78.0 H Lymphocytes % (Manual) 6.0 L Seg Neutrophils # Man Lymphocytes # (Manual) 0.5 L PT INR VBG pH 7.439 H Sodium Potassium Chloride Carbon Dioxide BUN Creatinine Glucose POC Glucose Lactic Acid 3.60 H* Calcium Phosphorus Magnesium Total Bilirubin AST Total Protein Albumin Crossmatch 04/18/18 04/19/18 04/19/18 23:59 05:19 05:19 WBC 15.0 H RBC Hgb Hct RDW 15.3 H Lymph % (Auto) [place] % (Auto) Lymph # Seg Neutrophils % Seg Neuts % (Manual) Lymphocytes % (Manual) 5.0 L Seg Neutrophils # Man 8.3 H Lymphocytes # (Manual) 0.8 L PT INR VBG pH Sodium 130 L D 133 L Potassium 3.5 L 3.3 L Chloride Carbon Dioxide 20 L D BUN Creatinine 0.5 L 0.6 L Glucose 140 H 115 H POC Glucose Lactic Acid Calcium 7.5 L 7.4 L Phosphorus Magnesium Total Bilirubin AST Total Protein 4.4 L D 4.1 L Albumin 2.0 L 1.9 L Crossmatch 04/19/18 04/19/18 04/20/18 05:19 13:05 05:18 WBC RBC Hgb Hct RDW Lymph % (Auto) [place] % (Auto) Lymph # Seg Neutrophils % Seg Neuts % (Manual) Lymphocytes % (Manual) Seg Neutrophils # Man Lymphocytes # (Manual) PT 19.4 H 17.4 H INR 1.59 H 1.38 H VBG pH Sodium Potassium Chloride Carbon Dioxide BUN Creatinine Glucose POC Glucose Lactic Acid Calcium Phosphorus Magnesium Total Bilirubin AST Total Protein Albumin Crossmatch See Detail 04/20/18 04/20/18 04/21/18 13:47 13:47 04:52 WBC RBC 3.29 L 3.10 L Hgb 9.6 L 8.8 L Hct 28.1 L D 26.6 L RDW 15.3 H 15.4 H Lymph % (Auto) 5.6 L [place] % (Auto) Lymph # 0.4 L Seg Neutrophils % 87.3 H Seg Neuts % (Manual) Lymphocytes % (Manual) Seg Neutrophils # Man Lymphocytes # (Manual) PT INR VBG pH Sodium Potassium Chloride Carbon Dioxide BUN Creatinine 0.3 L Glucose 102 H POC Glucose Lactic Acid Calcium 8.0 L Phosphorus Magnesium Total Bilirubin AST Total Protein Albumin Crossmatch 04/21/18 04/22/18 04/22/18 04:52 05:19 05:19 WBC RBC 3.64 L Hgb Hct RDW Lymph % (Auto) 8.5 L [place] % (Auto) 9.9 H Lymph # 0.6 L Seg Neutrophils % 81.0 H Seg Neuts % (Manual) Lymphocytes % (Manual) Seg Neutrophils # Man Lymphocytes # (Manual) PT 15.3 H INR 1.17 H VBG pH Sodium Potassium 3.2 L Chloride Carbon Dioxide BUN Creatinine 0.3 L Glucose POC Glucose Lactic Acid Calcium 7.6 L Phosphorus Magnesium Total Bilirubin AST Total Protein Albumin Crossmatch 04/22/18 04/24/18 04/24/18 05:19 07:19 07:19 WBC RBC Hgb Hct RDW Lymph % (Auto) [place] % (Auto) Lymph # Seg Neutrophils % Seg Neuts % (Manual) Lymphocytes % (Manual) Seg Neutrophils # Man Lymphocytes # (Manual) PT INR VBG pH Sodium Potassium 3.4 L 2.9 L* Chloride Carbon Dioxide BUN Creatinine 0.3 L 0.3 L Glucose 103 H POC Glucose Lactic Acid Calcium 7.7 L 7.5 L Phosphorus Magnesium 1.60 L Total Bilirubin AST Total Protein 4.3 L Albumin 2.2 L Crossmatch 04/24/18 04/25/18 04/25/18 07:23 06:28 06:28 WBC RBC Hgb Hct RDW 15.3 H 15.9 H Lymph % (Auto) 10.1 L [place] % (Auto) Lymph # 0.8 L Seg Neutrophils % 80.6 H Seg Neuts % (Manual) Lymphocytes % (Manual) 9.0 L Seg Neutrophils # Man Lymphocytes # (Manual) 0.7 L PT INR VBG pH Sodium Potassium 3.0 L Chloride Carbon Dioxide BUN 5 L Creatinine 0.2 L Glucose 108 H POC Glucose Lactic Acid Calcium 7.4 L Phosphorus Magnesium Total Bilirubin AST Total Protein 4.6 L Albumin 2.5 L Crossmatch 04/25/18 04/26/18 04/26/18 06:28 05:45 05:45 WBC 11.9 H RBC Hgb Hct RDW 16.2 H Lymph % (Auto) [place] % (Auto) Lymph # Seg Neutrophils % Seg Neuts % (Manual) Lymphocytes % (Manual) Seg Neutrophils # Man Lymphocytes # (Manual) PT INR VBG pH Sodium Potassium Chloride Carbon Dioxide BUN 5 L Creatinine 0.2 L Glucose 119 H POC Glucose Lactic Acid Calcium 7.7 L Phosphorus 2.00 L 2.20 L Magnesium Total Bilirubin AST Total Protein Albumin Crossmatch 04/27/18 04/28/18 04/28/18 05:33 06:00 06:00 WBC 11.2 H RBC Hgb Hct RDW 16.0 H Lymph % (Auto) [place] % (Auto) Lymph # Seg Neutrophils % Seg Neuts % (Manual) 92.0 H Lymphocytes % (Manual) 5.0 L Seg Neutrophils # Man 10.3 H Lymphocytes # (Manual) 0.6 L PT INR VBG pH Sodium Potassium 3.4 L 3.1 L Chloride Carbon Dioxide BUN 6 L 4 L Creatinine 0.2 L 0.2 L Glucose 119 H POC Glucose Lactic Acid Calcium 7.5 L 7.1 L Phosphorus 2.00 L 2.10 L Magnesium 1.50 L Total Bilirubin AST Total Protein 4.3 L Albumin 2.1 L Crossmatch 04/29/18 04/29/18 04/29/18 05:18 05:18 17:49 WBC 12.0 H RBC Hgb Hct RDW 16.0 H Lymph % (Auto) [place] % (Auto) Lymph # Seg Neutrophils % Seg Neuts % (Manual) 87.0 H Lymphocytes % (Manual) 10.0 L Seg Neutrophils # Man 10.4 H Lymphocytes # (Manual) PT INR VBG pH Sodium 135 L Potassium Chloride Carbon Dioxide BUN Creatinine 0.2 L Glucose 120 H POC Glucose 108 H Lactic Acid Calcium 7.5 L Phosphorus Magnesium Total Bilirubin AST Total Protein Albumin Crossmatch 04/30/18 04/30/18 04/30/18 00:03 05:18 05:41 WBC RBC Hgb Hct RDW Lymph % (Auto) [place] % (Auto) Lymph # Seg Neutrophils % Seg Neuts % (Manual) Lymphocytes % (Manual) Seg Neutrophils # Man Lymphocytes # (Manual) PT INR VBG pH Sodium 133 L Potassium Chloride Carbon Dioxide BUN Creatinine 0.2 L Glucose 119 H POC Glucose 112 H 110 H Lactic Acid Calcium 7.5 L Phosphorus Magnesium Total Bilirubin AST Total Protein Albumin Crossmatch 04/30/18 05/01/18 05/01/18 05:41 00:39 04:45 WBC RBC 3.60 L Hgb Hct RDW 16.0 H Lymph % (Auto) [place] % (Auto) Lymph # Seg Neutrophils % Seg Neuts % (Manual) 88.0 H Lymphocytes % (Manual) 8.0 L Seg Neutrophils # Man Lymphocytes # (Manual) 0.7 L PT INR VBG pH Sodium 132 L Potassium Chloride Carbon Dioxide BUN Creatinine 0.2 L Glucose 101 H POC Glucose 119 H Lactic Acid Calcium 7.6 L Phosphorus Magnesium Total Bilirubin AST Total Protein Albumin Crossmatch 05/01/18 05/01/18 05/01/18 06:30 16:09 23:42 WBC RBC Hgb Hct RDW Lymph % (Auto) [place] % (Auto) Lymph # Seg Neutrophils % Seg Neuts % (Manual) Lymphocytes % (Manual) Seg Neutrophils # Man Lymphocytes # (Manual) PT INR VBG pH Sodium Potassium Chloride Carbon Dioxide BUN Creatinine Glucose POC Glucose 126 H 160 H 113 H Lactic Acid Calcium Phosphorus Magnesium Total Bilirubin AST Total Protein Albumin Crossmatch 05/02/18 05/02/18 05/02/18 04:55 06:41 11:53 WBC RBC Hgb Hct RDW Lymph % (Auto) [place] % (Auto) Lymph # Seg Neutrophils % Seg Neuts % (Manual) Lymphocytes % (Manual) Seg Neutrophils # Man Lymphocytes # (Manual) PT INR VBG pH Sodium 134 L Potassium Chloride Carbon Dioxide BUN Creatinine 0.2 L Glucose 113 H POC Glucose 146 H 113 H Lactic Acid Calcium 7.4 L Phosphorus Magnesium Total Bilirubin AST Total Protein Albumin Crossmatch 05/02/18 05/02/18 05/03/18 17:33 23:37 08:46 WBC RBC 3.36 L Hgb 9.7 L Hct 28.7 L RDW 16.3 H Lymph % (Auto) [place] % (Auto) 10.0 H Lymph # Seg Neutrophils % Seg Neuts % (Manual) Lymphocytes % (Manual) Seg Neutrophils # Man Lymphocytes # (Manual) PT INR VBG pH Sodium Potassium Chloride Carbon Dioxide BUN Creatinine Glucose POC Glucose 106 H 123 H Lactic Acid Calcium Phosphorus Magnesium Total Bilirubin AST Total Protein Albumin Crossmatch 05/03/18 05/03/18 05/04/18 11:54 12:15 06:59 WBC RBC Hgb Hct RDW Lymph % (Auto) [place] % (Auto) Lymph # Seg Neutrophils % Seg Neuts % (Manual) Lymphocytes % (Manual) Seg Neutrophils # Man Lymphocytes # (Manual) PT INR VBG pH Sodium 136 L Potassium Chloride Carbon Dioxide BUN Creatinine 0.2 L Glucose 131 H POC Glucose 109 H 161 H Lactic Acid Calcium 7.6 L Phosphorus Magnesium Total Bilirubin AST Total Protein Albumin Crossmatch 05/04/18 05/04/18 05/04/18 07:03 08:02 11:10 WBC RBC 3.52 L Hgb Hct 29.8 L RDW 16.2 H Lymph % (Auto) [place] % (Auto) 8.6 H Lymph # Seg Neutrophils % Seg Neuts % (Manual) Lymphocytes % (Manual) Seg Neutrophils # Man Lymphocytes # (Manual) PT INR VBG pH Sodium 135 L Potassium Chloride Carbon Dioxide BUN Creatinine 0.2 L Glucose 160 H POC Glucose 106 H Lactic Acid Calcium 7.7 L Phosphorus Magnesium Total Bilirubin AST Total Protein Albumin Crossmatch 05/04/18 05/05/18 05/05/18 23:38 11:28 16:55 WBC RBC Hgb Hct RDW Lymph % (Auto) [place] % (Auto) Lymph # Seg Neutrophils % Seg Neuts % (Manual) Lymphocytes % (Manual) Seg Neutrophils # Man Lymphocytes # (Manual) PT INR VBG pH Sodium Potassium Chloride Carbon Dioxide BUN Creatinine Glucose POC Glucose 121 H 119 H 108 H Lactic Acid Calcium Phosphorus Magnesium Total Bilirubin AST Total Protein Albumin Crossmatch 05/05/18 05/06/18 05/06/18 Unknown 05:35 16:40 WBC RBC Hgb Hct RDW Lymph % (Auto) [place] % (Auto) Lymph # Seg Neutrophils % Seg Neuts % (Manual) Lymphocytes % (Manual) Seg Neutrophils # Man Lymphocytes # (Manual) PT INR VBG pH Sodium 135 L 136 L Potassium Chloride 97.9 L Carbon Dioxide BUN Creatinine 0.2 L 0.2 L Glucose 119 H POC Glucose 133 H Lactic Acid Calcium 8.0 L 8.1 L Phosphorus Magnesium Total Bilirubin AST 46 H Total Protein 5.5 L Albumin 2.7 L Crossmatch 05/06/18 05/07/18 05/07/18 22:07 05:38 05:40 WBC RBC Hgb Hct RDW Lymph % (Auto) [place] % (Auto) Lymph # Seg Neutrophils % Seg Neuts % (Manual) Lymphocytes % (Manual) Seg Neutrophils # Man Lymphocytes # (Manual) PT INR VBG pH Sodium 133 L Potassium Chloride Carbon Dioxide BUN Creatinine 0.2 L Glucose POC Glucose 168 H 107 H Lactic Acid Calcium 8.2 L Phosphorus Magnesium Total Bilirubin AST Total Protein Albumin Crossmatch 05/07/18 05/07/18 05/08/18 11:56 18:04 05:38 WBC RBC Hgb Hct RDW 16.3 H Lymph % (Auto) [place] % (Auto) 7.7 H Lymph # Seg Neutrophils % Seg Neuts % (Manual) Lymphocytes % (Manual) Seg Neutrophils # Man Lymphocytes # (Manual) PT INR VBG pH Sodium Potassium Chloride Carbon Dioxide BUN Creatinine Glucose POC Glucose 145 H 125 H Lactic Acid Calcium Phosphorus Magnesium Total Bilirubin AST Total Protein Albumin Crossmatch 05/08/18 05/08/18 05/08/18 05:38 11:35 16:23 WBC RBC Hgb Hct RDW Lymph % (Auto) [place] % (Auto) Lymph # Seg Neutrophils % Seg Neuts % (Manual) Lymphocytes % (Manual) Seg Neutrophils # Man Lymphocytes # (Manual) PT INR VBG pH Sodium 135 L Potassium Chloride Carbon Dioxide BUN Creatinine 0.2 L Glucose POC Glucose 118 H 131 H Lactic Acid Calcium Phosphorus Magnesium Total Bilirubin AST Total Protein Albumin Crossmatch 05/08/18 05/09/18 05/09/18 21:40 05:46 06:15 WBC RBC Hgb Hct RDW Lymph % (Auto) [place] % (Auto) Lymph # Seg Neutrophils % Seg Neuts % (Manual) Lymphocytes % (Manual) Seg Neutrophils # Man Lymphocytes # (Manual) PT INR VBG pH Sodium 135 L Potassium Chloride 97.5 L Carbon Dioxide BUN Creatinine 0.2 L Glucose POC Glucose 110 H 115 H Lactic Acid Calcium Phosphorus Magnesium Total Bilirubin AST Total Protein Albumin Crossmatch 05/09/18 05/09/18 05/10/18 11:28 23:53 06:22 WBC RBC Hgb Hct RDW Lymph % (Auto) [place] % (Auto) Lymph # Seg Neutrophils % Seg Neuts % (Manual) Lymphocytes % (Manual) Seg Neutrophils # Man Lymphocytes # (Manual) PT INR VBG pH Sodium Potassium Chloride Carbon Dioxide BUN Creatinine Glucose POC Glucose 145 H 132 H 149 H Lactic Acid Calcium Phosphorus Magnesium Total Bilirubin AST Total Protein Albumin Crossmatch 05/10/18 05/10/18 05/11/18 16:14 23:24 05:00 WBC RBC Hgb Hct RDW Lymph % (Auto) [place] % (Auto) Lymph # Seg Neutrophils % Seg Neuts % (Manual) Lymphocytes % (Manual) Seg Neutrophils # Man Lymphocytes # (Manual) PT INR VBG pH Sodium Potassium Chloride Carbon Dioxide BUN Creatinine 0.2 L Glucose 113 H POC Glucose 119 H 119 H Lactic Acid Calcium Phosphorus Magnesium Total Bilirubin AST Total Protein Albumin Crossmatch 05/11/18 05/11/18 05/11/18 05:57 11:23 16:29 WBC RBC Hgb Hct RDW Lymph % (Auto) [place] % (Auto) Lymph # Seg Neutrophils % Seg Neuts % (Manual) Lymphocytes % (Manual) Seg Neutrophils # Man Lymphocytes # (Manual) PT INR VBG pH Sodium Potassium Chloride Carbon Dioxide BUN Creatinine Glucose POC Glucose 173 H 143 H 159 H Lactic Acid Calcium Phosphorus Magnesium Total Bilirubin AST Total Protein Albumin Crossmatch 05/12/18 05/12/18 05/12/18 00:47 06:23 11:21 WBC RBC Hgb Hct RDW Lymph % (Auto) [place] % (Auto) Lymph # Seg Neutrophils % Seg Neuts % (Manual) Lymphocytes % (Manual) Seg Neutrophils # Man Lymphocytes # (Manual) PT INR VBG pH Sodium Potassium Chloride Carbon Dioxide BUN Creatinine Glucose POC Glucose 139 H 136 H 116 H Lactic Acid Calcium Phosphorus Magnesium Total Bilirubin AST Total Protein Albumin Crossmatch 05/12/18 05/12/18 05/12/18 17:19 17:22 22:22 WBC RBC Hgb Hct RDW Lymph % (Auto) [place] % (Auto) Lymph # Seg Neutrophils % Seg Neuts % (Manual) Lymphocytes % (Manual) Seg Neutrophils # Man Lymphocytes # (Manual) PT INR VBG pH Sodium Potassium Chloride Carbon Dioxide BUN Creatinine Glucose POC Glucose 329 H 116 H 124 H Lactic Acid Calcium Phosphorus Magnesium Total Bilirubin AST Total Protein Albumin Crossmatch 05/13/18 05/13/18 05/13/18 18:35 22:25 Unknown WBC RBC Hgb Hct RDW Lymph % (Auto) [place] % (Auto) Lymph # Seg Neutrophils % Seg Neuts % (Manual) Lymphocytes % (Manual) Seg Neutrophils # Man Lymphocytes # (Manual) PT INR VBG pH Sodium 136 L Potassium Chloride 97.8 L Carbon Dioxide BUN Creatinine 0.2 L Glucose POC Glucose 137 H 106 H Lactic Acid Calcium Phosphorus Magnesium Total Bilirubin AST 41 H Total Protein Albumin 3.5 L Crossmatch 05/14/18 05/14/18 05/14/18 06:40 06:40 12:48 WBC RBC 3.48 L Hgb 9.8 L Hct 29.1 L RDW 15.6 H Lymph % (Auto) [place] % (Auto) Lymph # Seg Neutrophils % Seg Neuts % (Manual) Lymphocytes % (Manual) Seg Neutrophils # Man Lymphocytes # (Manual) PT INR VBG pH Sodium Potassium Chloride Carbon Dioxide BUN Creatinine 0.2 L Glucose POC Glucose 113 H Lactic Acid Calcium 8.1 L Phosphorus Magnesium Total Bilirubin AST Total Protein Albumin Crossmatch 05/14/18 05/14/18 05/15/18 17:52 22:04 05:10 WBC RBC Hgb Hct RDW Lymph % (Auto) [place] % (Auto) Lymph # Seg Neutrophils % Seg Neuts % (Manual) Lymphocytes % (Manual) Seg Neutrophils # Man Lymphocytes # (Manual) PT INR VBG pH Sodium 135 L Potassium Chloride Carbon Dioxide BUN Creatinine 0.2 L Glucose POC Glucose 106 H 107 H Lactic Acid Calcium 8.2 L Phosphorus Magnesium Total Bilirubin AST Total Protein Albumin Crossmatch 05/15/18 05/15/18 05/15/18 06:24 11:31 16:47 WBC RBC Hgb Hct RDW Lymph % (Auto) [place] % (Auto) Lymph # Seg Neutrophils % Seg Neuts % (Manual) Lymphocytes % (Manual) Seg Neutrophils # Man Lymphocytes # (Manual) PT INR VBG pH Sodium Potassium Chloride Carbon Dioxide BUN Creatinine Glucose POC Glucose 125 H 133 H 135 H Lactic Acid Calcium Phosphorus Magnesium Total Bilirubin AST Total Protein Albumin Crossmatch 05/16/18 05/16/18 05/16/18 00:13 04:30 05:59 WBC RBC Hgb Hct RDW Lymph % (Auto) [place] % (Auto) Lymph # Seg Neutrophils % Seg Neuts % (Manual) Lymphocytes % (Manual) Seg Neutrophils # Man Lymphocytes # (Manual) PT INR VBG pH Sodium Potassium Chloride Carbon Dioxide BUN Creatinine 0.2 L Glucose POC Glucose 132 H 113 H Lactic Acid Calcium Phosphorus Magnesium Total Bilirubin AST Total Protein Albumin Crossmatch 05/16/18 05/16/18 05/17/18 13:03 18:51 05:06 WBC RBC Hgb Hct RDW Lymph % (Auto) [place] % (Auto) Lymph # Seg Neutrophils % Seg Neuts % (Manual) Lymphocytes % (Manual) Seg Neutrophils # Man Lymphocytes # (Manual) PT INR VBG pH Sodium Potassium Chloride Carbon Dioxide BUN Creatinine Glucose POC Glucose 112 H 111 H 128 H Lactic Acid Calcium Phosphorus Magnesium Total Bilirubin AST Total Protein Albumin Crossmatch 05/17/18 05/18/18 06:07 07:43 WBC RBC Hgb Hct RDW Lymph % (Auto) [place] % (Auto) Lymph # Seg Neutrophils % Seg Neuts % (Manual) Lymphocytes % (Manual) Seg Neutrophils # Man Lymphocytes # (Manual) PT INR VBG pH Sodium 135 L Potassium Chloride Carbon Dioxide BUN Creatinine 0.2 L 0.2 L Glucose 133 H 117 H POC Glucose Lactic Acid Calcium 8.2 L Phosphorus Magnesium Total Bilirubin AST Total Protein Albumin Crossmatch Allied health notes reviewed: nursing
[2018-05-18] MEDS: XANAX PO PRN (12:04)
[2018-05-18] MEDS ORDERED: MORPHINE ONE (12:40)
[2018-05-18] MEDS ORDERED: XYLOCAINE 1%/ EPI 1:100,000 INFILTRATI ONE (12:40)
[2018-05-18] MEDS ORDERED: MORPHINE IV ONE (12:40)
--- NOTE | 2018-05-18 13:05 | Progress Note ---
Assessment and Plan Pt feeling well. Abd soft. drain noted to be loose. some sutures out. CT - very minimal drainage noted. 90% - 95% healed. stable continued improvement. drain re-sutured by bedside. continue present care. f/u CT 1 wk Objective Vital Signs - 12hr 05/18/18 05/18/18 03:19 07:27 Temperature 99.4 F 98.4 F Pulse Rate 97 H 101 H Respiratory 18 18 Rate Blood Pressure 140/74 140/88 O2 Sat by Pulse 96 97 Oximetry - Labs 05/14/18 06:40 05/18/18 07:43 Diabetes panel 05/18/18 Range/Units 07:43 Sodium 137 (137-145) mmol/L Potassium 4.4 (3.6-5.0) mmol/L Chloride 104.0 (98-107) mmol/L Carbon Dioxide 29 (22-30) mmol/L BUN 14 (7-17) mg/dL Creatinine 0.2 L (0.7-1.2) mg/dL Glucose 117 H (65-100) mg/dL Calcium 8.2 L (8.4-10.2) mg/dL Calcium panel 05/18/18 Range/Units 07:43 Calcium 8.2 L (8.4-10.2) mg/dL Phosphorus 3.60 (2.5-4.5) mg/dL Pituitary panel 05/18/18 Range/Units 07:43 Sodium 137 (137-145) mmol/L Potassium 4.4 (3.6-5.0) mmol/L Chloride 104.0 (98-107) mmol/L Carbon Dioxide 29 (22-30) mmol/L BUN 14 (7-17) mg/dL Creatinine 0.2 L (0.7-1.2) mg/dL Glucose 117 H (65-100) mg/dL Calcium 8.2 L (8.4-10.2) mg/dL Adrenal panel 05/18/18 Range/Units 07:43 Sodium 137 (137-145) mmol/L Potassium 4.4 (3.6-5.0) mmol/L Chloride 104.0 (98-107) mmol/L Carbon Dioxide 29 (22-30) mmol/L BUN 14 (7-17) mg/dL Creatinine 0.2 L (0.7-1.2) mg/dL Glucose 117 H (65-100) mg/dL Calcium 8.2 L (8.4-10.2) mg/dL
--- NOTE | 2018-05-18 14:19 | Progress Note ---
Assessment and Plan Patient awake and weak. Resting on room air at this time.O2 saturation 97%.No complaint of chest pain, shortness of breath or cough.Complaining diarrhea. - Patient Problems (1) Appendicitis with perforation Current Visit: Yes Status: Acute Plan to address problem: S/p resection of perforated appendex. (2) Sepsis Current Visit: Yes Status: Acute Qualifiers: Sepsis type: Escherichia coli Qualified Code(s): A41.51 - Sepsis due to Escherichia coli [E. coli] Plan to address problem: Resolved. Patient off the antibiotics. (3) Acute metabolic encephalopathy Current Visit: No Status: Acute Plan to address problem: Appears improved. Management as per primary care. (4) Marijuana abuse Current Visit: No Status: Acute Plan to address problem: Counselled not use marijuana. Subjective Date of service: 05/18/18 Principal diagnosis: Sepsis; Ex-lap appendectomy and evacuation of pelvic abscess; Peritonitis Interval history: Patient awake and weak. Resting on room air at this time.O2 saturation 97%.No complaint of chest pain, shortness of breath or cough.Complaining diarrhea. Objective Vital Signs - 12hr 05/18/18 05/18/18 03:19 07:27 Temperature 99.4 F 98.4 F Pulse Rate 97 H 101 H Respiratory 18 18 Rate Blood Pressure 140/74 140/88 O2 Sat by Pulse 96 97 Oximetry Constitutional: alert, appears uncomfortable, other (chronically ill looking this middle aged CF, normocephalic) Eyes: non-icteric ENT: oropharynx moist, other (Mallampati 2) Neck: supple, no lymphadenopathy, no JVD Effort: mildly labored Ascultation: Bilateral: diminished breath sounds, rhonchi (scant in bases) Percussion: Bilateral: not dull Cardiovascular: regular rate and rhythm Gastrointestinal: normoactive bowel sounds, soft, tender (bhargav-op site), non- distended, other (Drain in place with non-bloody effluent) Integumentary: other (poor turgor; ? neurofibromatous nodules over body) Extremities: no cyanosis, no edema, pink and warm, pulses normal Neurologic: normal mental status, non-focal exam, pupils equal and round, motor strength normal and Psychiatric: mood appropriate, anxious CBC and BMP: 05/14/18 06:40 05/18/18 07:43 ABG, PT/INR, D-dimer: ABG POC ABG pH 7.367 (7.35-7.45) 04/19/18 00:19 POC ABG pCO2 36.8 (35-45) 04/19/18 00:19 POC ABG pO2 84 (80-105) 04/19/18 00:19 POC ABG HCO3 21.1 04/19/18 00:19 POC ABG Total CO2 22 04/19/18 00:19 POC ABG O2 Sat 96 04/19/18 00:19 PT/INR, D-dimer PT 15.3 Sec. (12.2-14.9) H 04/22/18 05:19 INR 1.17 (0.87-1.13) H 04/22/18 05:19 Abnormal lab findings: Abnormal Labs 04/18/18 04/18/18 04/18/18 14:30 14:30 14:30 WBC 18.6 H RBC Hgb Hct RDW Lymph % (Auto) Giles % (Auto) Lymph # Seg Neutrophils % Seg Neuts % (Manual) 79.0 H Lymphocytes % (Manual) 4.0 L Seg Neutrophils # Man 14.7 H Lymphocytes # (Manual) 0.7 L PT 16.3 H INR 1.27 H VBG pH Sodium 121 L Potassium 3.0 L Chloride 78.0 L Carbon Dioxide BUN Creatinine 0.5 L Glucose 110 H POC Glucose Lactic Acid Calcium Phosphorus Magnesium Total Bilirubin 1.30 H AST 42 H Total Protein Albumin 3.1 L Crossmatch 04/18/18 04/18/18 04/18/18 14:30 14:30 23:59 WBC RBC Hgb Hct RDW 15.8 H Lymph % (Auto) Giles % (Auto) Lymph # Seg Neutrophils % Seg Neuts % (Manual) 78.0 H Lymphocytes % (Manual) 6.0 L Seg Neutrophils # Man Lymphocytes # (Manual) 0.5 L PT INR VBG pH 7.439 H Sodium Potassium Chloride Carbon Dioxide BUN Creatinine Glucose POC Glucose Lactic Acid 3.60 H* Calcium Phosphorus Magnesium Total Bilirubin AST Total Protein Albumin Crossmatch 04/18/18 04/19/18 04/19/18 23:59 05:19 05:19 WBC 15.0 H RBC Hgb Hct RDW 15.3 H Lymph % (Auto) Giles % (Auto) Lymph # Seg Neutrophils % Seg Neuts % (Manual) Lymphocytes % (Manual) 5.0 L Seg Neutrophils # Man 8.3 H Lymphocytes # (Manual) 0.8 L PT INR VBG pH Sodium 130 L D 133 L Potassium 3.5 L 3.3 L Chloride Carbon Dioxide 20 L D BUN Creatinine 0.5 L 0.6 L Glucose 140 H 115 H POC Glucose Lactic Acid Calcium 7.5 L 7.4 L Phosphorus Magnesium Total Bilirubin AST Total Protein 4.4 L D 4.1 L Albumin 2.0 L 1.9 L Crossmatch 04/19/18 04/19/18 04/20/18 05:19 13:05 05:18 WBC RBC Hgb Hct RDW Lymph % (Auto) Giles % (Auto) Lymph # Seg Neutrophils % Seg Neuts % (Manual) Lymphocytes % (Manual) Seg Neutrophils # Man Lymphocytes # (Manual) PT 19.4 H 17.4 H INR 1.59 H 1.38 H VBG pH Sodium Potassium Chloride Carbon Dioxide BUN Creatinine Glucose POC Glucose Lactic Acid Calcium Phosphorus Magnesium Total Bilirubin AST Total Protein Albumin Crossmatch See Detail 04/20/18 04/20/18 04/21/18 13:47 13:47 04:52 WBC RBC 3.29 L 3.10 L Hgb 9.6 L 8.8 L Hct 28.1 L D 26.6 L RDW 15.3 H 15.4 H Lymph % (Auto) 5.6 L Giles % (Auto) Lymph # 0.4 L Seg Neutrophils % 87.3 H Seg Neuts % (Manual) Lymphocytes % (Manual) Seg Neutrophils # Man Lymphocytes # (Manual) PT INR VBG pH Sodium Potassium Chloride Carbon Dioxide BUN Creatinine 0.3 L Glucose 102 H POC Glucose Lactic Acid Calcium 8.0 L Phosphorus Magnesium Total Bilirubin AST Total Protein Albumin Crossmatch 04/21/18 04/22/18 04/22/18 04:52 05:19 05:19 WBC RBC 3.64 L Hgb Hct RDW Lymph % (Auto) 8.5 L Giles % (Auto) 9.9 H Lymph # 0.6 L Seg Neutrophils % 81.0 H Seg Neuts % (Manual) Lymphocytes % (Manual) Seg Neutrophils # Man Lymphocytes # (Manual) PT 15.3 H INR 1.17 H VBG pH Sodium Potassium 3.2 L Chloride Carbon Dioxide BUN Creatinine 0.3 L Glucose POC Glucose Lactic Acid Calcium 7.6 L Phosphorus Magnesium Total Bilirubin AST Total Protein Albumin Crossmatch 04/22/18 04/24/18 04/24/18 05:19 07:19 07:19 WBC RBC Hgb Hct RDW Lymph % (Auto) Giles % (Auto) Lymph # Seg Neutrophils % Seg Neuts % (Manual) Lymphocytes % (Manual) Seg Neutrophils # Man Lymphocytes # (Manual) PT INR VBG pH Sodium Potassium 3.4 L 2.9 L* Chloride Carbon Dioxide BUN Creatinine 0.3 L 0.3 L Glucose 103 H POC Glucose Lactic Acid Calcium 7.7 L 7.5 L Phosphorus Magnesium 1.60 L Total Bilirubin AST Total Protein 4.3 L Albumin 2.2 L Crossmatch 04/24/18 04/25/18 04/25/18 07:23 06:28 06:28 WBC RBC Hgb Hct RDW 15.3 H 15.9 H Lymph % (Auto) 10.1 L Giles % (Auto) Lymph # 0.8 L Seg Neutrophils % 80.6 H Seg Neuts % (Manual) Lymphocytes % (Manual) 9.0 L Seg Neutrophils # Man Lymphocytes # (Manual) 0.7 L PT INR VBG pH Sodium Potassium 3.0 L Chloride Carbon Dioxide BUN 5 L Creatinine 0.2 L Glucose 108 H POC Glucose Lactic Acid Calcium 7.4 L Phosphorus Magnesium Total Bilirubin AST Total Protein 4.6 L Albumin 2.5 L Crossmatch 04/25/18 04/26/18 04/26/18 06:28 05:45 05:45 WBC 11.9 H RBC Hgb Hct RDW 16.2 H Lymph % (Auto) Giles % (Auto) Lymph # Seg Neutrophils % Seg Neuts % (Manual) Lymphocytes % (Manual) Seg Neutrophils # Man Lymphocytes # (Manual) PT INR VBG pH Sodium Potassium Chloride Carbon Dioxide BUN 5 L Creatinine 0.2 L Glucose 119 H POC Glucose Lactic Acid Calcium 7.7 L Phosphorus 2.00 L 2.20 L Magnesium Total Bilirubin AST Total Protein Albumin Crossmatch 04/27/18 04/28/18 04/28/18 05:33 06:00 06:00 WBC 11.2 H RBC Hgb Hct RDW 16.0 H Lymph % (Auto) Giles % (Auto) Lymph # Seg Neutrophils % Seg Neuts % (Manual) 92.0 H Lymphocytes % (Manual) 5.0 L Seg Neutrophils # Man 10.3 H Lymphocytes # (Manual) 0.6 L PT INR VBG pH Sodium Potassium 3.4 L 3.1 L Chloride Carbon Dioxide BUN 6 L 4 L Creatinine 0.2 L 0.2 L Glucose 119 H POC Glucose Lactic Acid Calcium 7.5 L 7.1 L Phosphorus 2.00 L 2.10 L Magnesium 1.50 L Total Bilirubin AST Total Protein 4.3 L Albumin 2.1 L Crossmatch 04/29/18 04/29/18 04/29/18 05:18 05:18 17:49 WBC 12.0 H RBC Hgb Hct RDW 16.0 H Lymph % (Auto) Giles % (Auto) Lymph # Seg Neutrophils % Seg Neuts % (Manual) 87.0 H Lymphocytes % (Manual) 10.0 L Seg Neutrophils # Man 10.4 H Lymphocytes # (Manual) PT INR VBG pH Sodium 135 L Potassium Chloride Carbon Dioxide BUN Creatinine 0.2 L Glucose 120 H POC Glucose 108 H Lactic Acid Calcium 7.5 L Phosphorus Magnesium Total Bilirubin AST Total Protein Albumin Crossmatch 04/30/18 04/30/18 04/30/18 00:03 05:18 05:41 WBC RBC Hgb Hct RDW Lymph % (Auto) Giles % (Auto) Lymph # Seg Neutrophils % Seg Neuts % (Manual) Lymphocytes % (Manual) Seg Neutrophils # Man Lymphocytes # (Manual) PT INR VBG pH Sodium 133 L Potassium Chloride Carbon Dioxide BUN Creatinine 0.2 L Glucose 119 H POC Glucose 112 H 110 H Lactic Acid Calcium 7.5 L Phosphorus Magnesium Total Bilirubin AST Total Protein Albumin Crossmatch 04/30/18 05/01/18 05/01/18 05:41 00:39 04:45 WBC RBC 3.60 L Hgb Hct RDW 16.0 H Lymph % (Auto) Giles % (Auto) Lymph # Seg Neutrophils % Seg Neuts % (Manual) 88.0 H Lymphocytes % (Manual) 8.0 L Seg Neutrophils # Man Lymphocytes # (Manual) 0.7 L PT INR VBG pH Sodium 132 L Potassium Chloride Carbon Dioxide BUN Creatinine 0.2 L Glucose 101 H POC Glucose 119 H Lactic Acid Calcium 7.6 L Phosphorus Magnesium Total Bilirubin AST Total Protein Albumin Crossmatch 05/01/18 05/01/18 05/01/18 06:30 16:09 23:42 WBC RBC Hgb Hct RDW Lymph % (Auto) Giles % (Auto) Lymph # Seg Neutrophils % Seg Neuts % (Manual) Lymphocytes % (Manual) Seg Neutrophils # Man Lymphocytes # (Manual) PT INR VBG pH Sodium Potassium Chloride Carbon Dioxide BUN Creatinine Glucose POC Glucose 126 H 160 H 113 H Lactic Acid Calcium Phosphorus Magnesium Total Bilirubin AST Total Protein Albumin Crossmatch 05/02/18 05/02/18 05/02/18 04:55 06:41 11:53 WBC RBC Hgb Hct RDW Lymph % (Auto) Giles % (Auto) Lymph # Seg Neutrophils % Seg Neuts % (Manual) Lymphocytes % (Manual) Seg Neutrophils # Man Lymphocytes # (Manual) PT INR VBG pH Sodium 134 L Potassium Chloride Carbon Dioxide BUN Creatinine 0.2 L Glucose 113 H POC Glucose 146 H 113 H Lactic Acid Calcium 7.4 L Phosphorus Magnesium Total Bilirubin AST Total Protein Albumin Crossmatch 05/02/18 05/02/18 05/03/18 17:33 23:37 08:46 WBC RBC 3.36 L Hgb 9.7 L Hct 28.7 L RDW 16.3 H Lymph % (Auto) Giles % (Auto) 10.0 H Lymph # Seg Neutrophils % Seg Neuts % (Manual) Lymphocytes % (Manual) Seg Neutrophils # Man Lymphocytes # (Manual) PT INR VBG pH Sodium Potassium Chloride Carbon Dioxide BUN Creatinine Glucose POC Glucose 106 H 123 H Lactic Acid Calcium Phosphorus Magnesium Total Bilirubin AST Total Protein Albumin Crossmatch 05/03/18 05/03/18 05/04/18 11:54 12:15 06:59 WBC RBC Hgb Hct RDW Lymph % (Auto) Giles % (Auto) Lymph # Seg Neutrophils % Seg Neuts % (Manual) Lymphocytes % (Manual) Seg Neutrophils # Man Lymphocytes # (Manual) PT INR VBG pH Sodium 136 L Potassium Chloride Carbon Dioxide BUN Creatinine 0.2 L Glucose 131 H POC Glucose 109 H 161 H Lactic Acid Calcium 7.6 L Phosphorus Magnesium Total Bilirubin AST Total Protein Albumin Crossmatch 05/04/18 05/04/18 05/04/18 07:03 08:02 11:10 WBC RBC 3.52 L Hgb Hct 29.8 L RDW 16.2 H Lymph % (Auto) Giles % (Auto) 8.6 H Lymph # Seg Neutrophils % Seg Neuts % (Manual) Lymphocytes % (Manual) Seg Neutrophils # Man Lymphocytes # (Manual) PT INR VBG pH Sodium 135 L Potassium Chloride Carbon Dioxide BUN Creatinine 0.2 L Glucose 160 H POC Glucose 106 H Lactic Acid Calcium 7.7 L Phosphorus Magnesium Total Bilirubin AST Total Protein Albumin Crossmatch 05/04/18 05/05/18 05/05/18 23:38 11:28 16:55 WBC RBC Hgb Hct RDW Lymph % (Auto) Giles % (Auto) Lymph # Seg Neutrophils % Seg Neuts % (Manual) Lymphocytes % (Manual) Seg Neutrophils # Man Lymphocytes # (Manual) PT INR VBG pH Sodium Potassium Chloride Carbon Dioxide BUN Creatinine Glucose POC Glucose 121 H 119 H 108 H Lactic Acid Calcium Phosphorus Magnesium Total Bilirubin AST Total Protein Albumin Crossmatch 05/05/18 05/06/18 05/06/18 Unknown 05:35 16:40 WBC RBC Hgb Hct RDW Lymph % (Auto) Giles % (Auto) Lymph # Seg Neutrophils % Seg Neuts % (Manual) Lymphocytes % (Manual) Seg Neutrophils # Man Lymphocytes # (Manual) PT INR VBG pH Sodium 135 L 136 L Potassium Chloride 97.9 L Carbon Dioxide BUN Creatinine 0.2 L 0.2 L Glucose 119 H POC Glucose 133 H Lactic Acid Calcium 8.0 L 8.1 L Phosphorus Magnesium Total Bilirubin AST 46 H Total Protein 5.5 L Albumin 2.7 L Crossmatch 05/06/18 05/07/18 05/07/18 22:07 05:38 05:40 WBC RBC Hgb Hct RDW Lymph % (Auto) Giles % (Auto) Lymph # Seg Neutrophils % Seg Neuts % (Manual) Lymphocytes % (Manual) Seg Neutrophils # Man Lymphocytes # (Manual) PT INR VBG pH Sodium 133 L Potassium Chloride Carbon Dioxide BUN Creatinine 0.2 L Glucose POC Glucose 168 H 107 H Lactic Acid Calcium 8.2 L Phosphorus Magnesium Total Bilirubin AST Total Protein Albumin Crossmatch 05/07/18 05/07/18 05/08/18 11:56 18:04 05:38 WBC RBC Hgb Hct RDW 16.3 H Lymph % (Auto) Giles % (Auto) 7.7 H Lymph # Seg Neutrophils % Seg Neuts % (Manual) Lymphocytes % (Manual) Seg Neutrophils # Man Lymphocytes # (Manual) PT INR VBG pH Sodium Potassium Chloride Carbon Dioxide BUN Creatinine Glucose POC Glucose 145 H 125 H Lactic Acid Calcium Phosphorus Magnesium Total Bilirubin AST Total Protein Albumin Crossmatch 05/08/18 05/08/18 05/08/18 05:38 11:35 16:23 WBC RBC Hgb Hct RDW Lymph % (Auto) Giles % (Auto) Lymph # Seg Neutrophils % Seg Neuts % (Manual) Lymphocytes % (Manual) Seg Neutrophils # Man Lymphocytes # (Manual) PT INR VBG pH Sodium 135 L Potassium Chloride Carbon Dioxide BUN Creatinine 0.2 L Glucose POC Glucose 118 H 131 H Lactic Acid Calcium Phosphorus Magnesium Total Bilirubin AST Total Protein Albumin Crossmatch 05/08/18 05/09/18 05/09/18 21:40 05:46 06:15 WBC RBC Hgb Hct RDW Lymph % (Auto) Giles % (Auto) Lymph # Seg Neutrophils % Seg Neuts % (Manual) Lymphocytes % (Manual) Seg Neutrophils # Man Lymphocytes # (Manual) PT INR VBG pH Sodium 135 L Potassium Chloride 97.5 L Carbon Dioxide BUN Creatinine 0.2 L Glucose POC Glucose 110 H 115 H Lactic Acid Calcium Phosphorus Magnesium Total Bilirubin AST Total Protein Albumin Crossmatch 05/09/18 05/09/18 05/10/18 11:28 23:53 06:22 WBC RBC Hgb Hct RDW Lymph % (Auto) Giles % (Auto) Lymph # Seg Neutrophils % Seg Neuts % (Manual) Lymphocytes % (Manual) Seg Neutrophils # Man Lymphocytes # (Manual) PT INR VBG pH Sodium Potassium Chloride Carbon Dioxide BUN Creatinine Glucose POC Glucose 145 H 132 H 149 H Lactic Acid Calcium Phosphorus Magnesium Total Bilirubin AST Total Protein Albumin Crossmatch 05/10/18 05/10/18 05/11/18 16:14 23:24 05:00 WBC RBC Hgb Hct RDW Lymph % (Auto) Giles % (Auto) Lymph # Seg Neutrophils % Seg Neuts % (Manual) Lymphocytes % (Manual) Seg Neutrophils # Man Lymphocytes # (Manual) PT INR VBG pH Sodium Potassium Chloride Carbon Dioxide BUN Creatinine 0.2 L Glucose 113 H POC Glucose 119 H 119 H Lactic Acid Calcium Phosphorus Magnesium Total Bilirubin AST Total Protein Albumin Crossmatch 05/11/18 05/11/18 05/11/18 05:57 11:23 16:29 WBC RBC Hgb Hct RDW Lymph % (Auto) Giles % (Auto) Lymph # Seg Neutrophils % Seg Neuts % (Manual) Lymphocytes % (Manual) Seg Neutrophils # Man Lymphocytes # (Manual) PT INR VBG pH Sodium Potassium Chloride Carbon Dioxide BUN Creatinine Glucose POC Glucose 173 H 143 H 159 H Lactic Acid Calcium Phosphorus Magnesium Total Bilirubin AST Total Protein Albumin Crossmatch 05/12/18 05/12/18 05/12/18 00:47 06:23 11:21 WBC RBC Hgb Hct RDW Lymph % (Auto) Giles % (Auto) Lymph # Seg Neutrophils % Seg Neuts % (Manual) Lymphocytes % (Manual) Seg Neutrophils # Man Lymphocytes # (Manual) PT INR VBG pH Sodium Potassium Chloride Carbon Dioxide BUN Creatinine Glucose POC Glucose 139 H 136 H 116 H Lactic Acid Calcium Phosphorus Magnesium Total Bilirubin AST Total Protein Albumin Crossmatch 05/12/18 05/12/18 05/12/18 17:19 17:22 22:22 WBC RBC Hgb Hct RDW Lymph % (Auto) Giles % (Auto) Lymph # Seg Neutrophils % Seg Neuts % (Manual) Lymphocytes % (Manual) Seg Neutrophils # Man Lymphocytes # (Manual) PT INR VBG pH Sodium Potassium Chloride Carbon Dioxide BUN Creatinine Glucose POC Glucose 329 H 116 H 124 H Lactic Acid Calcium Phosphorus Magnesium Total Bilirubin AST Total Protein Albumin Crossmatch 05/13/18 05/13/18 05/13/18 18:35 22:25 Unknown WBC RBC Hgb Hct RDW Lymph % (Auto) Giles % (Auto) Lymph # Seg Neutrophils % Seg Neuts % (Manual) Lymphocytes % (Manual) Seg Neutrophils # Man Lymphocytes # (Manual) PT INR VBG pH Sodium 136 L Potassium Chloride 97.8 L Carbon Dioxide BUN Creatinine 0.2 L Glucose POC Glucose 137 H 106 H Lactic Acid Calcium Phosphorus Magnesium Total Bilirubin AST 41 H Total Protein Albumin 3.5 L Crossmatch 05/14/18 05/14/18 05/14/18 06:40 06:40 12:48 WBC RBC 3.48 L Hgb 9.8 L Hct 29.1 L RDW 15.6 H Lymph % (Auto) Giles % (Auto) Lymph # Seg Neutrophils % Seg Neuts % (Manual) Lymphocytes % (Manual) Seg Neutrophils # Man Lymphocytes # (Manual) PT INR VBG pH Sodium Potassium Chloride Carbon Dioxide BUN Creatinine 0.2 L Glucose POC Glucose 113 H Lactic Acid Calcium 8.1 L Phosphorus Magnesium Total Bilirubin AST Total Protein Albumin Crossmatch 05/14/18 05/14/18 05/15/18 17:52 22:04 05:10 WBC RBC Hgb Hct RDW Lymph % (Auto) Giles % (Auto) Lymph # Seg Neutrophils % Seg Neuts % (Manual) Lymphocytes % (Manual) Seg Neutrophils # Man Lymphocytes # (Manual) PT INR VBG pH Sodium 135 L Potassium Chloride Carbon Dioxide BUN Creatinine 0.2 L Glucose POC Glucose 106 H 107 H Lactic Acid Calcium 8.2 L Phosphorus Magnesium Total Bilirubin AST Total Protein Albumin Crossmatch 05/15/18 05/15/18 05/15/18 06:24 11:31 16:47 WBC RBC Hgb Hct RDW Lymph % (Auto) Giles % (Auto) Lymph # Seg Neutrophils % Seg Neuts % (Manual) Lymphocytes % (Manual) Seg Neutrophils # Man Lymphocytes # (Manual) PT INR VBG pH Sodium Potassium Chloride Carbon Dioxide BUN Creatinine Glucose POC Glucose 125 H 133 H 135 H Lactic Acid Calcium Phosphorus Magnesium Total Bilirubin AST Total Protein Albumin Crossmatch 05/16/18 05/16/18 05/16/18 00:13 04:30 05:59 WBC RBC Hgb Hct RDW Lymph % (Auto) Giles % (Auto) Lymph # Seg Neutrophils % Seg Neuts % (Manual) Lymphocytes % (Manual) Seg Neutrophils # Man Lymphocytes # (Manual) PT INR VBG pH Sodium Potassium Chloride Carbon Dioxide BUN Creatinine 0.2 L Glucose POC Glucose 132 H 113 H Lactic Acid Calcium Phosphorus Magnesium Total Bilirubin AST Total Protein Albumin Crossmatch 05/16/18 05/16/18 05/17/18 13:03 18:51 05:06 WBC RBC Hgb Hct RDW Lymph % (Auto) Giles % (Auto) Lymph # Seg Neutrophils % Seg Neuts % (Manual) Lymphocytes % (Manual) Seg Neutrophils # Man Lymphocytes # (Manual) PT INR VBG pH Sodium Potassium Chloride Carbon Dioxide BUN Creatinine Glucose POC Glucose 112 H 111 H 128 H Lactic Acid Calcium Phosphorus Magnesium Total Bilirubin AST Total Protein Albumin Crossmatch 05/17/18 05/18/18 06:07 07:43 WBC RBC Hgb Hct RDW Lymph % (Auto) Giles % (Auto) Lymph # Seg Neutrophils % Seg Neuts % (Manual) Lymphocytes % (Manual) Seg Neutrophils # Man Lymphocytes # (Manual) PT INR VBG pH Sodium 135 L Potassium Chloride Carbon Dioxide BUN Creatinine 0.2 L 0.2 L Glucose 133 H 117 H POC Glucose Lactic Acid Calcium 8.2 L Phosphorus Magnesium Total Bilirubin AST Total Protein Albumin Crossmatch Allied health notes reviewed: nursing
--- NOTE | 2018-05-18 17:29 | Progress Note ---
Assessment and Plan Assessment and plan: The patient is a 57-year-old female with hypertension, neurofibromatosis, hepatitis C, COPD, nicotine dependence presented to the emergency room on 04/18/18 with complaints of abdominal pain going on for [address] scan obtained in the emergency room revealed a ruptured appendix with associated intra-abdominal abscess. General surgery was consulted and the patient underwent an emergent exploratory laparotomy with evacuation of pelvic abscess. She was noted to have a gangrenous, perforated appendix eroding including into the small bowel. As per the op note, the abscess could not be drained as the entire abscess and inflammatory process had trapped the small bowel, which was mobilized and she underwent an ileocolic anastomosis. The patient went back to the OR on 04/25/18 for drain dislodgment. Surgical cultures growing ECOLI and beta hemolytic strep group C, ester albicans and enteroccocus faecium Per surgery considering plan to transfer to LTAC If this is the case, there are a lot of care issues to keep in mind * pt must continue on current TPN regimen and sandostatin * Continue local wd care * If pt begins experiencing RLQ abd pain, Drain must be re-placed on low continues suction * repeat CT of abd & pelvis with PO contrast to be scheduled for Friday * Pt needs to remain NPO except for ice chips, meds and popsicles until the results of her CT on Friday * Pt may have retention sutures removed after Friday * CT abdome: 05/18/18- Still shows minimal drainage, per surgery will repeat in a week * Insurance denies LTAC, recommends SNF. Both surgeon and Patient believe SNF is the wrong place Sepsis Etiology secondary to gangrenous and perforated appendix causing intra- abdominal/pelvic abscess. Patient is status post exploratory laparotomy with appendectomy and evacuation of pelvic abscess. Now off antibiotics and noted ID signed off. No fever off antibiotics. Perforated appendix s/p exploratory lap Cont. TPN -Likely usp Dislodged drain, s/p taken to OR , exploratory lap, irrigation of intraabd cavity and placement of sump drain on 04/25 Draining tube was placed back on drainage due to nursing noting some drainage around there the site surgery evaluated and will do CT abdomen in the morning OOB as tiffanie Chronic hep C. Untreated. Outpatient follow-up. Accel Hypertension. Increase Cozaar to 100mg. Cont. Hydralazine prn. Diarrhea: start on lmodium prn x 1 today Tachycardia: secondary to dehydration and deconditioning. Fluids to be given and also start Low dose BB. COPD. Compensated. Neurofibromatosis: Tobacco abuse. Patient counseled on smoking cessation FOR 15 MINS, Patient verbalized understanding and will think about it. Disposition - when cleared by surgery History Interval history: Patient seen and examined this am with nursing staff. NO New complaints. No new drainage. diarrhea last night x 1, AWAITING CT Hospitalist Physical - Physical exam Narrative exam: VITAL SIGNS: Reviewed. GENERAL: The patient appeared well nourished and normally developed. CACHETIC. Vital signs as documented. Temporal wasting noted HEAD: No signs of head trauma. EYES: Pupils are equal. Extraocular motions intact. EARS: Hearing grossly intact. MOUTH: Oropharynx is normal. NECK: No adenopathy, no JVD. CHEST: Chest with clear breath sounds bilaterally. No wheezes, rales, or rhonchi. CARDIAC: Regular rate and rhythm. S1 and S2, without murmurs, gallops, or rubs. VASCULAR: No Edema. Peripheral pulses normal and equal in all extremities. ABDOMEN: Soft, midly distended, some tenderness. bilateral drain noted. hypoactive BS No rebound or guarding, and no masses palpated. MUSCULOSKELETAL: Good range of motion of all major joints. Extremities without clubbing, cyanosis or edema. NEUROLOGIC EXAM: Alert and oriented x 3. No focal sensory or strength deficits. Speech normal. Follows commands. PSYCHIATRIC: Mood normal. SKIN: neurofibromatosis lesions on face - Constitutional Vitals: Temp Pulse Resp BP Pulse Ox 98.1 F 97 H 18 130/84 97 05/18/18 15:33 05/18/18 15:33 05/18/18 15:33 05/18/18 15:33 05/18/18 15:33 General appearance: Present: no acute distress, cachectic, other (temporal wasting scaphoid abdomen.) Results - Labs CBC & Chem 7: 05/14/18 06:40 05/18/18 07:43 Labs: Laboratory Last Values WBC 4.5 K/mm3 (4.5-11.0) 05/14/18 06:40 RBC 3.48 M/mm3 (3.65-5.03) L 05/14/18 06:40 Hgb 9.8 gm/dl (10.1-14.3) L 05/14/18 06:40 Hct 29.1 % (30.3-42.9) L 05/14/18 06:40 MCV 83 fl (79-97) 05/14/18 06:40 MCH 28 pg (28-32) 05/14/18 06:40 MCHC 34 % (30-34) 05/14/18 06:40 RDW 15.6 % (13.2-15.2) H 05/14/18 06:40 Plt Count 163 K/mm3 (140-440) 05/14/18 06:40 Lymph % (Auto) 29.1 % (13.4-35.0) 05/08/18 05:38 [place] % (Auto) 7.7 % (0.0-7.3) H 05/08/18 05:38 Eos % (Auto) 3.2 % (0.0-4.3) 05/08/18 05:38 Baso % (Auto) 1.1 % (0.0-1.8) 05/08/18 05:38 Lymph # 1.4 K/mm3 (1.2-5.4) 05/08/18 05:38 [place] # 0.4 K/mm3 (0.0-0.8) 05/08/18 05:38 Eos # 0.2 K/mm3 (0.0-0.4) 05/08/18 05:38 Baso # 0.1 K/mm3 (0.0-0.1) 05/08/18 05:38 Add Manual Diff Complete 04/30/18 05:41 Total Counted 100 04/30/18 05:41 Seg Neutrophils % 58.9 % (40.0-70.0) 05/08/18 05:38 Seg Neuts % (Manual) 88.0 % (40.0-70.0) H 04/30/18 05:41 Band Neutrophils % 1.0 % 04/30/18 05:41 Lymphocytes % (Manual) 8.0 % (13.4-35.0) L 04/30/18 05:41 Reactive Lymphs % (Man) 0 % 04/30/18 05:41 Monocytes % (Manual) 3.0 % (0.0-7.3) 04/30/18 05:41 Eosinophils % (Manual) 0 % (0.0-4.3) 04/30/18 05:41 Basophils % (Manual) 0 % (0.0-1.8) 04/30/18 05:41 Metamyelocytes % 0 % 04/30/18 05:41 Myelocytes % 0 % 04/30/18 05:41 Promyelocytes % 0 % 04/30/18 05:41 Blast Cells % 0 % 04/30/18 05:41 Nucleated RBC % Not Reportable 04/30/18 05:41 Seg Neutrophils # 2.9 K/mm3 (1.8-7.7) 05/08/18 05:38 Seg Neutrophils # Man 7.7 K/mm3 (1.8-7.7) 04/30/18 05:41 Band Neutrophils # 0.1 K/mm3 04/30/18 05:41 Lymphocytes # (Manual) 0.7 K/mm3 (1.2-5.4) L 04/30/18 05:41 Abs React Lymphs (Man) 0.0 K/mm3 04/30/18 05:41 Monocytes # (Manual) 0.3 K/mm3 (0.0-0.8) 04/30/18 05:41 Eosinophils # (Manual) 0.0 K/mm3 (0.0-0.4) 04/30/18 05:41 Basophils # (Manual) 0.0 K/mm3 (0.0-0.1) 04/30/18 05:41 Metamyelocytes # 0.0 K/mm3 04/30/18 05:41 Myelocytes # 0.0 K/mm3 04/30/18 05:41 Promyelocytes # 0.0 K/mm3 04/30/18 05:41 Blast Cells # 0.0 K/mm3 04/30/18 05:41 WBC Morphology Not Reportable 04/30/18 05:41 Hypersegmented Neuts Not Reportable 04/30/18 05:41 Hyposegmented Neuts Not Reportable 04/30/18 05:41 Hypogranular Neuts Not Reportable 04/30/18 05:41 Smudge Cells Not Reportable 04/30/18 05:41 Toxic Granulation Not Reportable 04/30/18 05:41 Toxic Vacuolation Not Reportable 04/30/18 05:41 Dohle Bodies Not Reportable 04/30/18 05:41 Pelger-Huet Anomaly Not Reportable 04/30/18 05:41 Nicole Rods Not Reportable 04/30/18 05:41 Platelet Estimate Appears normal 04/30/18 05:41 Clumped Platelets Not Reportable 04/30/18 05:41 Plt Clumps, EDTA Not Reportable 04/30/18 05:41 Large Platelets Not Reportable 04/30/18 05:41 Giant Platelets Not Reportable 04/30/18 05:41 Platelet Satelliting Not Reportable 04/30/18 05:41 Plt Morphology Comment Not Reportable 04/30/18 05:41 RBC Morphology Not Reportable 04/30/18 05:41 Dimorphic RBCs Not Reportable 04/30/18 05:41 Polychromasia Not Reportable 04/30/18 05:41 Hypochromasia 1+ 04/30/18 05:41 Poikilocytosis Not Reportable 04/30/18 05:41 Anisocytosis 1+ 04/30/18 05:41 Microcytosis Not Reportable 04/30/18 05:41 Macrocytosis Not Reportable 04/30/18 05:41 Spherocytes Not Reportable 04/30/18 05:41 Pappenheimer Bodies Not Reportable 04/30/18 05:41 Sickle Cells Not Reportable 04/30/18 05:41 Target Cells Not Reportable 04/30/18 05:41 Tear Drop Cells Not Reportable 04/30/18 05:41 Ovalocytes Few 04/30/18 05:41 Stomatocytes Few 04/29/18 05:18 Helmet Cells Not Reportable 04/30/18 05:41 [place] Bodies Not Reportable 04/30/18 05:41 [place] Rings Not Reportable 04/30/18 05:41 Philip Cells Not Reportable 04/30/18 05:41 Bite Cells Not Reportable 04/30/18 05:41 Crenated Cell Not Reportable 04/30/18 05:41 Elliptocytes Not Reportable 04/30/18 05:41 Acanthocytes (Spur) Not Reportable 04/30/18 05:41 Rouleaux Not Reportable 04/30/18 05:41 Hemoglobin C Crystals Not Reportable 04/30/18 05:41 Schistocytes Not Reportable 04/30/18 05:41 Malaria parasites Not Reportable 04/30/18 05:41 Hung Bodies Not Reportable 04/30/18 05:41 Hem Pathologist Commnt No 04/30/18 05:41 PT 15.3 Sec. (12.2-14.9) H 04/22/18 05:19 INR 1.17 (0.87-1.13) H 04/22/18 05:19 APTT 29.4 Sec. (24.2-36.6) 04/19/18 05:19 POC ABG pH 7.367 (7.35-7.45) 04/19/18 00:19 POC ABG pCO2 36.8 (35-45) 04/19/18 00:19 POC ABG pO2 84 (80-105) 04/19/18 00:19 POC ABG HCO3 21.1 04/19/18 00:19 POC ABG Total CO2 22 04/19/18 00:19 POC ABG O2 Sat 96 04/19/18 00:19 POC ABG Base Excess -4 04/19/18 00:19 VBG pH 7.439 (7.320-7.420) H 04/18/18 14:30 FiO2 32 % 04/19/18 00:19 Sodium 137 mmol/L (137-145) 05/18/18 07:43 Potassium 4.4 mmol/L (3.6-5.0) 05/18/18 07:43 Chloride 104.0 mmol/L (98-107) 05/18/18 07:43 Carbon Dioxide 29 mmol/L (22-30) 05/18/18 07:43 Anion Gap 8 mmol/L 05/18/18 07:43 BUN 14 mg/dL (7-17) 05/18/18 07:43 Creatinine 0.2 mg/dL (0.7-1.2) L 05/18/18 07:43 Estimated GFR > 60 ml/min 05/18/18 07:43 BUN/Creatinine Ratio 70 % 05/18/18 07:43 Glucose 117 mg/dL (65-100) H 05/18/18 07:43 POC Glucose 128 (70-105) H 05/17/18 05:06 Lactic Acid 0.90 mmol/L (0.7-2.0) 04/18/18 18:41 Calcium 8.2 mg/dL (8.4-10.2) L 05/18/18 07:43 Phosphorus 3.60 mg/dL (2.5-4.5) 05/18/18 07:43 Magnesium 2.00 mg/dL (1.7-2.3) 05/18/18 07:43 Total Bilirubin 0.60 mg/dL (0.1-1.2) 05/13/18 Unknown AST 41 units/L (5-40) H 05/13/18 Unknown ALT 38 units/L (7-56) 05/13/18 Unknown Alkaline Phosphatase 97 units/L (35-129) 05/13/18 Unknown Total Protein 6.5 g/dL (6.3-8.2) 05/13/18 Unknown Albumin 3.5 g/dL (3.9-5) L 05/13/18 Unknown Albumin/Globulin Ratio 1.2 % 05/13/18 Unknown Triglycerides 113 mg/dL (2-149) 05/13/18 Unknown Urine Color Yellow (Yellow) 04/20/18 13:35 Urine Turbidity Clear (Clear) 04/20/18 13:35 Urine pH 5.0 (5.0-7.0) 04/20/18 13:35 Ur Specific [place] 1.011 (1.003-1.030) 04/20/18 13:35 Urine Protein <15 mg/dl mg/dL (Negative) 04/20/18 13:35 Urine Glucose (UA) Neg mg/dL (Negative) 04/20/18 13:35 Urine Ketones 20 mg/dL (Negative) 04/20/18 13:35 Urine Blood Sm (Negative) 04/20/18 13:35 Urine Nitrite Neg (Negative) 04/20/18 13:35 Urine Bilirubin Neg (Negative) 04/20/18 13:35 Urine Urobilinogen 2.0 mg/dL (<2.0) 04/20/18 13:35 Ur Leukocyte Esterase Tr (Negative) 04/20/18 13:35 Urine WBC (Auto) 2.0 /HPF (0.0-6.0) 04/20/18 13:35 Urine RBC (Auto) 1.0 /HPF (0.0-6.0) 04/20/18 13:35 U Epithel Cells (Auto) 2.0 /HPF (0-13.0) 04/18/18 16:45 Urine Bacteria (Auto) 2+ /HPF (Negative) 04/18/18 16:45 Urine Mucus Few /HPF 04/20/18 13:35 Blood Type O POSITIVE 04/19/18 13:05 Antibody Screen Negative 04/19/18 13:05 Crossmatch See Detail 04/19/18 13:05 Nutrition/Malnutrition Assess - Dietary Evaluation Nutrition/Malnutrition Findings: Nutrition Notes Start: 04/24/18 09:13 Freq: Status: Active Protocol: Document 05/18/18 16:25 MARCO (Rec: 05/18/18 16:29 [id number]) Nutrition Notes Initial or Follow up Reassessment Other Pertinent Diagnosis Perforated appendix s/p exp lap, Hep C Current Diet TPN at 75ml/hr Labs/Tests reviewed Pertinent Medications Reviewed Height 5 ft 1 in Weight 40.4 kg [place] Body Weight (kg) 47.72 BMI 16.8 Weight change and time frame Pt sleeping; unable to get her up in order to re-zero bed scale Subjective/Other Information Day [address] of abd/pelvis revealed continued improvement in pelvic drain/fluid collection since 05/08/18. Percent of energy/protein needs met: 100% energy and pro Burn Absent Trauma Absent #2 Nutrition Diagnosis Increased nutrient needs ( specify in comment below) Diagnosis Progress(for reassessment Continues documentation) #1 Nutrition Diagnosis Inadequate oral intake Diagnosis Progress(for reassessment Continues documentation) Is patient on ventilator? No Is Patient Ambulatory and/or Out of Bed Yes REE-([facility]-ambulatory/OOB) [ 1210.794 [id number]] Kcal/Kg value to use for calculation 40 Approximate Energy Requirements Using 1616 kcal/Kg Calculation Used for Recommendations Kcal/kg Additional Notes Pro needs 1.25-1.5g/k-61g /day Fluid needs 1ml/kcal Nutrition Intervention Nutrition Support: Continue TPN at 75 ml/hr: MVI, lipids Osmolality: 1708 Kcal 1,815 Protein (gm) 95 Carbohydrates (gm) 275 Fat (gm) 50 Fluid (mL) 2,050 Fiber (gm) 0 Goal #1 CPN to meet 90-100% energy and pro needs Goal #2 Wt gain/maintenance Follow-Up By: 05/19/18 Additional Comments Labs in am: BMP, Mg, Phos - Attestation Statement I have reviewed and agreed w/ Malnutrition eval & tx plan: Yes
[2018-05-18] MEDS ORDERED: INTRALIPID 20% 250 ML IV SCH (20:00)
[2018-05-18] MEDS ORDERED: TPN ADULT 1,800 ML IV SCH (20:00)
[2018-05-18] MEDS: REMERON PO SCH (22:01)
[2018-05-19 06:58] LABS: BUN/Creatinine Ratio 80; Blood Urea Nitrogen 16 mg/dL (7-17); Hemolysis Index 6
[2018-05-19 07:01] LABS: Calcium 8.4 mg/dL (8.4-10.2)
--- NOTE | 2018-05-19 07:31 | Progress Note ---
Assessment and Plan Pt in good spirits. feeling well. neg drainage from sump drain Abd soft. dressings dry. stable clamp drain continue present care Selected Entries 05/18/18 05/18/18 05/18/18 03: 07:27 23:48 Temperature 98.4 F Pulse Rate 97 H Respiratory 18 Rate Blood Pressure 140/88 101/53 05/19/18 03:24 Temperature 97.7 F Pulse Rate 94 H Respiratory 18 Rate Blood Pressure Laboratory Tests 05/18/18 07:43 Sodium 137 Potassium 4.4 Chloride 104.0 Carbon Dioxide 29 Anion Gap 8 BUN 14 Creatinine 0.2 L Objective Vital Signs - 12hr 05/18/18 05/18/18 05/18/18 19:51 20:00 20:07 Temperature 99.3 F Pulse Rate 103 H Pulse Rate [ 100 H 105 H Anterior Bilateral Throughout] Respiratory 22 Rate Respiratory 14 16 Rate [Anterior Bilateral Throughout] Blood Pressure Blood Pressure 141/70 [Left] O2 Sat by Pulse 95 Oximetry 05/18/18 05/18/18 05/19/18 21:36 23:48 03:24 Temperature 98.3 F 97.7 F Pulse Rate 103 H 101 H 94 H Pulse Rate [ Anterior Bilateral Throughout] Respiratory 21 18 Rate Respiratory Rate [Anterior Bilateral Throughout] Blood Pressure 141/70 101/53 96/47 Blood Pressure [Left] O2 Sat by Pulse 95 97 Oximetry - Labs 05/14/18 06:40 05/19/18 Unknown Diabetes panel 05/18/18 05/19/18 Range/Units 07:43 Unknown Sodium 137 136 L (137-145) mmol/L Potassium 4.4 4.6 (3.6-5.0) mmol/L Chloride 104.0 101.8 (98-107) mmol/L Carbon Dioxide 29 28 (22-30) mmol/L BUN 14 16 (7-17) mg/dL Creatinine 0.2 L 0.2 L (0.7-1.2) mg/dL Glucose 117 H 99 (65-100) mg/dL Calcium 8.2 L 8.4 (8.4-10.2) mg/dL Calcium panel 05/18/18 05/19/18 Range/Units 07:43 Unknown Calcium 8.2 L 8.4 (8.4-10.2) mg/dL Phosphorus 3.60 4.60 H D (2.5-4.5) mg/dL Pituitary panel 05/18/18 05/19/18 Range/Units 07:43 Unknown Sodium 137 136 L (137-145) mmol/L Potassium 4.4 4.6 (3.6-5.0) mmol/L Chloride 104.0 101.8 (98-107) mmol/L Carbon Dioxide 29 28 (22-30) mmol/L BUN 14 16 (7-17) mg/dL Creatinine 0.2 L 0.2 L (0.7-1.2) mg/dL Glucose 117 H 99 (65-100) mg/dL Calcium 8.2 L 8.4 (8.4-10.2) mg/dL Adrenal panel 05/18/18 05/19/18 Range/Units 07:43 Unknown Sodium 137 136 L (137-145) mmol/L Potassium 4.4 4.6 (3.6-5.0) mmol/L Chloride 104.0 101.8 (98-107) mmol/L Carbon Dioxide 29 28 (22-30) mmol/L BUN 14 16 (7-17) mg/dL Creatinine 0.2 L 0.2 L (0.7-1.2) mg/dL Glucose 117 H 99 (65-100) mg/dL Calcium 8.2 L 8.4 (8.4-10.2) mg/dL
[2018-05-19] MEDS: COZAAR PO SCH ×2 (08:36→11:40)
[2018-05-19] MEDS: PEPCID IV SCH ×3 (08:36→21:48)
[2018-05-19] MEDS: LOPRESSOR PO SCH ×3 (08:37→21:15)
[2018-05-19] MEDS: NEURONTIN PO SCH ×3 (08:37→21:14)
[2018-05-19] MEDS ORDERED: NACL 0.9% 1000 ML 1,000 ML IV ONE ×2 (08:44→09:30)
[2018-05-19] MEDS: DILAUDID IV PRN ×4 (11:00→22:56)
[2018-05-19] MEDS: XANAX PO PRN (13:14)
--- NOTE | 2018-05-19 14:40 | Progress Note ---
Assessment and Plan Assessment and plan: The patient is a 57-year-old female with hypertension, neurofibromatosis, hepatitis C, COPD, nicotine dependence presented to the emergency room on 04/18/18 with complaints of abdominal pain going on for [address] scan obtained in the emergency room revealed a ruptured appendix with associated intra-abdominal abscess. General surgery was consulted and the patient underwent an emergent exploratory laparotomy with evacuation of pelvic abscess. She was noted to have a gangrenous, perforated appendix eroding including into the small bowel. As per the op note, the abscess could not be drained as the entire abscess and inflammatory process had trapped the small bowel, which was mobilized and she underwent an ileocolic anastomosis. The patient went back to the OR on 04/25/18 for drain dislodgment. Surgical cultures growing ECOLI and beta hemolytic strep group C, ester albicans and enteroccocus faecium Per surgery considering plan to transfer to LTAC If this is the case, there are a lot of care issues to keep in mind * pt must continue on current TPN regimen and sandostatin * Continue local wd care * If pt begins experiencing RLQ abd pain, Drain must be re-placed on low continues suction * repeat CT of abd & pelvis with PO contrast to be scheduled for Friday * Pt needs to remain NPO except for ice chips, meds and popsicles until the results of her CT on Friday * Pt may have retention sutures removed after Friday * CT abdome: 05/18/18- Still shows minimal drainage, per surgery will repeat in a week * Insurance denies LTAC, recommends SNF. Both surgeon and Patient believe SNF is the wrong place Sepsis Etiology secondary to gangrenous and perforated appendix causing intra- abdominal/pelvic abscess. Patient is status post exploratory laparotomy with appendectomy and evacuation of pelvic abscess. Now off antibiotics and noted ID signed off. No fever off antibiotics. Hypotension with low grade temp Give a bolus of fluids Check Blood cultures Check lactate Perforated appendix s/p exploratory lap Cont. TPN -Likely moth exterminator Dislodged drain, s/p taken to OR , exploratory lap, irrigation of intraabd cavity and placement of sump drain on 04/25 Draining tube was placed back on drainage due to nursing noting some drainage around there the site surgery evaluated and will do CT abdomen in the morning OOB as tiffanie Chronic hep C. Untreated. Outpatient follow-up. Accel Hypertension. Increase Cozaar to 100mg. Cont. Hydralazine prn. Diarrhea: start on lmodium prn x 1 today Tachycardia: secondary to dehydration and deconditioning. Fluids to be given and also start Low dose BB. COPD. Compensated. Neurofibromatosis: Tobacco abuse. Patient counseled on smoking cessation FOR 15 MINS, Patient verbalized understanding and will think about it. Disposition - when cleared by surgery History Interval history: Patient seen and examined this am with nursing staff. noted hypotensive with low grade temp this am, otherwise no other complaints. Hospitalist Physical - Physical exam Narrative exam: VITAL SIGNS: Reviewed. GENERAL: The patient appeared well nourished and normally developed. CACHETIC. Vital signs as documented. Temporal wasting noted HEAD: No signs of head trauma. EYES: Pupils are equal. Extraocular motions intact. EARS: Hearing grossly intact. MOUTH: Oropharynx is normal. NECK: No adenopathy, no JVD. CHEST: Chest with clear breath sounds bilaterally. No wheezes, rales, or rhonchi. CARDIAC: Regular rate and rhythm. S1 and S2, without murmurs, gallops, or rubs. VASCULAR: No Edema. Peripheral pulses normal and equal in all extremities. ABDOMEN: Soft, midly distended, some tenderness. bilateral drain noted. hypoactive BS No rebound or guarding, and no masses palpated. MUSCULOSKELETAL: Good range of motion of all major joints. Extremities without clubbing, cyanosis or edema. NEUROLOGIC EXAM: Alert and oriented x 3. No focal sensory or strength deficits. Speech normal. Follows commands. PSYCHIATRIC: Mood normal. SKIN: neurofibromatosis lesions on face - Constitutional Vitals: Temp Pulse Resp BP Pulse Ox 98.6 F 103 H 18 111/53 95 05/19/18 11:41 05/19/18 10:53 05/19/18 11:41 05/19/18 11:41 05/19/18 10:53 General appearance: Present: no acute distress, cachectic, other (temporal wasting scaphoid abdomen.) Results - Labs CBC & Chem 7: 05/14/18 06:40 05/19/18 Unknown Labs: Laboratory Last Values WBC 4.5 K/mm3 (4.5-11.0) 05/14/18 06:40 RBC 3.48 M/mm3 (3.65-5.03) L 05/14/18 06:40 Hgb 9.8 gm/dl (10.1-14.3) L 05/14/18 06:40 Hct 29.1 % (30.3-42.9) L 05/14/18 06:40 MCV 83 fl (79-97) 05/14/18 06:40 MCH 28 pg (28-32) 05/14/18 06:40 MCHC 34 % (30-34) 05/14/18 06:40 RDW 15.6 % (13.2-15.2) H 05/14/18 06:40 Plt Count 163 K/mm3 (140-440) 05/14/18 06:40 Lymph % (Auto) 29.1 % (13.4-35.0) 05/08/18 05:38 [place] % (Auto) 7.7 % (0.0-7.3) H 05/08/18 05:38 Eos % (Auto) 3.2 % (0.0-4.3) 05/08/18 05:38 Baso % (Auto) 1.1 % (0.0-1.8) 05/08/18 05:38 Lymph # 1.4 K/mm3 (1.2-5.4) 05/08/18 05:38 [place] # 0.4 K/mm3 (0.0-0.8) 05/08/18 05:38 Eos # 0.2 K/mm3 (0.0-0.4) 05/08/18 05:38 Baso # 0.1 K/mm3 (0.0-0.1) 05/08/18 05:38 Add Manual Diff Complete 04/30/18 05:41 Total Counted 100 04/30/18 05:41 Seg Neutrophils % 58.9 % (40.0-70.0) 05/08/18 05:38 Seg Neuts % (Manual) 88.0 % (40.0-70.0) H 04/30/18 05:41 Band Neutrophils % 1.0 % 04/30/18 05:41 Lymphocytes % (Manual) 8.0 % (13.4-35.0) L 04/30/18 05:41 Reactive Lymphs % (Man) 0 % 04/30/18 05:41 Monocytes % (Manual) 3.0 % (0.0-7.3) 04/30/18 05:41 Eosinophils % (Manual) 0 % (0.0-4.3) 04/30/18 05:41 Basophils % (Manual) 0 % (0.0-1.8) 04/30/18 05:41 Metamyelocytes % 0 % 04/30/18 05:41 Myelocytes % 0 % 04/30/18 05:41 Promyelocytes % 0 % 04/30/18 05:41 Blast Cells % 0 % 04/30/18 05:41 Nucleated RBC % Not Reportable 04/30/18 05:41 Seg Neutrophils # 2.9 K/mm3 (1.8-7.7) 05/08/18 05:38 Seg Neutrophils # Man 7.7 K/mm3 (1.8-7.7) 04/30/18 05:41 Band Neutrophils # 0.1 K/mm3 04/30/18 05:41 Lymphocytes # (Manual) 0.7 K/mm3 (1.2-5.4) L 04/30/18 05:41 Abs React Lymphs (Man) 0.0 K/mm3 04/30/18 05:41 Monocytes # (Manual) 0.3 K/mm3 (0.0-0.8) 04/30/18 05:41 Eosinophils # (Manual) 0.0 K/mm3 (0.0-0.4) 04/30/18 05:41 Basophils # (Manual) 0.0 K/mm3 (0.0-0.1) 04/30/18 05:41 Metamyelocytes # 0.0 K/mm3 04/30/18 05:41 Myelocytes # 0.0 K/mm3 04/30/18 05:41 Promyelocytes # 0.0 K/mm3 04/30/18 05:41 Blast Cells # 0.0 K/mm3 04/30/18 05:41 WBC Morphology Not Reportable 04/30/18 05:41 Hypersegmented Neuts Not Reportable 04/30/18 05:41 Hyposegmented Neuts Not Reportable 04/30/18 05:41 Hypogranular Neuts Not Reportable 04/30/18 05:41 Smudge Cells Not Reportable 04/30/18 05:41 Toxic Granulation Not Reportable 04/30/18 05:41 Toxic Vacuolation Not Reportable 04/30/18 05:41 Dohle Bodies Not Reportable 04/30/18 05:41 Pelger-Huet Anomaly Not Reportable 04/30/18 05:41 Nicole Rods Not Reportable 04/30/18 05:41 Platelet Estimate Appears normal 04/30/18 05:41 Clumped Platelets Not Reportable 04/30/18 05:41 Plt Clumps, EDTA Not Reportable 04/30/18 05:41 Large Platelets Not Reportable 04/30/18 05:41 Giant Platelets Not Reportable 04/30/18 05:41 Platelet Satelliting Not Reportable 04/30/18 05:41 Plt Morphology Comment Not Reportable 04/30/18 05:41 RBC Morphology Not Reportable 04/30/18 05:41 Dimorphic RBCs Not Reportable 04/30/18 05:41 Polychromasia Not Reportable 04/30/18 05:41 Hypochromasia 1+ 04/30/18 05:41 Poikilocytosis Not Reportable 04/30/18 05:41 Anisocytosis 1+ 04/30/18 05:41 Microcytosis Not Reportable 04/30/18 05:41 Macrocytosis Not Reportable 04/30/18 05:41 Spherocytes Not Reportable 04/30/18 05:41 Pappenheimer Bodies Not Reportable 04/30/18 05:41 Sickle Cells Not Reportable 04/30/18 05:41 Target Cells Not Reportable 04/30/18 05:41 Tear Drop Cells Not Reportable 04/30/18 05:41 Ovalocytes Few 04/30/18 05:41 Stomatocytes Few 04/29/18 05:18 Helmet Cells Not Reportable 04/30/18 05:41 [place] Bodies Not Reportable 04/30/18 05:41 [place] Rings Not Reportable 04/30/18 05:41 [place] Cells Not Reportable 04/30/18 05:41 Bite Cells Not Reportable 04/30/18 05:41 Crenated Cell Not Reportable 04/30/18 05:41 Elliptocytes Not Reportable 04/30/18 05:41 Acanthocytes (Spur) Not Reportable 04/30/18 05:41 Rouleaux Not Reportable 04/30/18 05:41 Hemoglobin C Crystals Not Reportable 04/30/18 05:41 Schistocytes Not Reportable 04/30/18 05:41 Malaria parasites Not Reportable 04/30/18 05:41 Hung Bodies Not Reportable 04/30/18 05:41 Hem Pathologist Commnt No 04/30/18 05:41 PT 15.3 Sec. (12.2-14.9) H 04/22/18 05:19 INR 1.17 (0.87-1.13) H 04/22/18 05:19 APTT 29.4 Sec. (24.2-36.6) 04/19/18 05:19 POC ABG pH 7.367 (7.35-7.45) 04/19/18 00:19 POC ABG pCO2 36.8 (35-45) 04/19/18 00:19 POC ABG pO2 84 (80-105) 04/19/18 00:19 POC ABG HCO3 21.1 04/19/18 00:19 POC ABG Total CO2 22 04/19/18 00:19 POC ABG O2 Sat 96 04/19/18 00:19 POC ABG Base Excess -4 04/19/18 00:19 VBG pH 7.439 (7.320-7.420) H 04/18/18 14:30 FiO2 32 % 04/19/18 00:19 Sodium 136 mmol/L (137-145) L 05/19/18 Unknown Potassium 4.6 mmol/L (3.6-5.0) 05/19/18 Unknown Chloride 101.8 mmol/L (98-107) 05/19/18 Unknown Carbon Dioxide 28 mmol/L (22-30) 05/19/18 Unknown Anion Gap 11 mmol/L 05/19/18 Unknown BUN 16 mg/dL (7-17) 05/19/18 Unknown Creatinine 0.2 mg/dL (0.7-1.2) L 05/19/18 Unknown Estimated GFR > 60 ml/min 05/19/18 Unknown BUN/Creatinine Ratio 80 % 05/19/18 Unknown Glucose 99 mg/dL (65-100) 05/19/18 Unknown POC Glucose 128 (70-105) H 05/17/18 05:06 Lactic Acid 1.20 mmol/L (0.7-2.0) 05/19/18 10:27 Calcium 8.4 mg/dL (8.4-10.2) 05/19/18 Unknown Phosphorus 4.60 mg/dL (2.5-4.5) H D 05/19/18 Unknown Magnesium 2.10 mg/dL (1.7-2.3) 05/19/18 Unknown Total Bilirubin 0.60 mg/dL (0.1-1.2) 05/13/18 Unknown AST 41 units/L (5-40) H 05/13/18 Unknown ALT 38 units/L (7-56) 05/13/18 Unknown Alkaline Phosphatase 97 units/L (35-129) 05/13/18 Unknown Total Protein 6.5 g/dL (6.3-8.2) 05/13/18 Unknown Albumin 3.5 g/dL (3.9-5) L 05/13/18 Unknown Albumin/Globulin Ratio 1.2 % 05/13/18 Unknown Triglycerides 113 mg/dL (2-149) 05/13/18 Unknown Urine Color Yellow (Yellow) 04/20/18 13:35 Urine Turbidity Clear (Clear) 04/20/18 13:35 Urine pH 5.0 (5.0-7.0) 04/20/18 13:35 Ur Specific [place] 1.011 (1.003-1.030) 04/20/18 13:35 Urine Protein <15 mg/dl mg/dL (Negative) 04/20/18 13:35 Urine Glucose (UA) Neg mg/dL (Negative) 04/20/18 13:35 Urine Ketones 20 mg/dL (Negative) 04/20/18 13:35 Urine Blood Sm (Negative) 04/20/18 13:35 Urine Nitrite Neg (Negative) 04/20/18 13:35 Urine Bilirubin Neg (Negative) 04/20/18 13:35 Urine Urobilinogen 2.0 mg/dL (<2.0) 04/20/18 13:35 Ur Leukocyte Esterase Tr (Negative) 04/20/18 13:35 Urine WBC (Auto) 2.0 /HPF (0.0-6.0) 04/20/18 13:35 Urine RBC (Auto) 1.0 /HPF (0.0-6.0) 04/20/18 13:35 U Epithel Cells (Auto) 2.0 /HPF (0-13.0) 04/18/18 16:45 Urine Bacteria (Auto) 2+ /HPF (Negative) 04/18/18 16:45 Urine Mucus Few /HPF 04/20/18 13:35 Blood Type O POSITIVE 04/19/18 13:05 Antibody Screen Negative 04/19/18 13:05 Crossmatch See Detail 04/19/18 13:05 Nutrition/Malnutrition Assess - Dietary Evaluation Nutrition/Malnutrition Findings: Nutrition Notes Start: 04/24/18 09:13 Freq: Status: Active Protocol: Document 05/19/18 13:11 MARCO (Rec: 05/19/18 13:14 [facility] SRW- [id number]) Nutrition Notes Initial or Follow up Reassessment Other Pertinent Diagnosis Perforated appendix s/p exp lap, Hep C Current Diet TPN at 75ml/hr Labs/Tests Na 136 Phos 4.6 Pertinent Medications NS boluses given this am sec to hypotension Height 5 ft 1 in Weight 40.4 kg [place] Body Weight (kg) 47.72 BMI 16.8 Subjective/Other Information Day 23 TPN. Percent of energy/protein needs met: 100% energy and pro Burn Absent Trauma Absent #2 Nutrition Diagnosis Increased nutrient needs ( specify in comment below) Diagnosis Progress(for reassessment Continues documentation) #1 Nutrition Diagnosis Inadequate oral intake Diagnosis Progress(for reassessment Continues documentation) Is patient on ventilator? No Is Patient Ambulatory and/or Out of Bed Yes REE-([facility]-ambulatory/OOB) [ 1210.794 [id number]] Kcal/Kg value to use for calculation 40 Approximate Energy Requirements Using 1616 kcal/Kg Calculation Used for Recommendations Kcal/kg Additional Notes Pro needs 1.25-1.5g/k-61g /day Fluid needs 1ml/kcal Nutrition Intervention Nutrition Support: Continue TPN at 75 ml/hr: MVI, MTE, 50mEq K, 15mmol Phos, 14mEq Mg. Osmolality: 1695. Kcal 1,315 Protein (gm) 95 Carbohydrates (gm) 275 Fat (gm) 0 Fluid (mL) 1,800 Fiber (gm) 0 Goal #1 CPN to meet 90-100% energy and pro needs Goal #2 Wt gain/maintenance Follow-Up By: 05/20/18 Additional Comments Labs in am: CMP, Mg, Phos, PAB - Attestation Statement I have reviewed and agreed w/ Malnutrition eval & tx plan: Yes
--- NOTE | 2018-05-19 17:30 | Progress Note ---
Assessment and Plan Patient awake and weak. Resting on room air at this time.O2 saturation 94%.No complaint of chest pain, shortness of breath or cough.Patient running low grade temp at times. No leukocytosis. - Patient Problems (1) Appendicitis with perforation Current Visit: Yes Status: Acute Plan to address problem: S/p resection of perforated appendex. (2) Sepsis Current Visit: Yes Status: Acute Qualifiers: Sepsis type: Escherichia coli Qualified Code(s): A41.51 - Sepsis due to Escherichia coli [E. coli] Plan to address problem: Resolved. Patient off the antibiotics. (3) Acute metabolic encephalopathy Current Visit: No Status: Acute Plan to address problem: Appears improved. Management as per primary care. (4) Marijuana abuse Current Visit: No Status: Acute Plan to address problem: Counselled not use marijuana. Subjective Date of service: 05/19/18 Principal diagnosis: Sepsis; Ex-lap appendectomy and evacuation of pelvic abscess; Peritonitis Interval history: Patient awake and weak. Resting on room air at this time.O2 saturation 94%.No complaint of chest pain, shortness of breath or cough.Patient running low grade temp at times. No leukocytosis. Objective Vital Signs - 12hr 05/19/18 05/19/18 05/19/18 08:03 10:52 10:53 Temperature 99.6 F 98.4 F Pulse Rate 105 H 104 H 103 H Respiratory 18 18 Rate Blood Pressure 88/45 117/57 O2 Sat by Pulse 93 93 95 Oximetry 05/19/18 05/19/18 11:41 16:39 Temperature 98.6 F 98.7 F Pulse Rate 98 H Respiratory 18 18 Rate Blood Pressure 111/53 111/58 O2 Sat by Pulse 94 Oximetry Constitutional: alert, appears uncomfortable, other (chronically ill looking this middle aged CF, normocephalic) Eyes: non-icteric ENT: oropharynx moist, other (Mallampati 2) Neck: supple, no lymphadenopathy, no JVD Effort: mildly labored Ascultation: Bilateral: diminished breath sounds, rhonchi (scant in bases) Percussion: Bilateral: not dull Cardiovascular: regular rate and rhythm Gastrointestinal: normoactive bowel sounds, soft, tender (bhargav-op site), non- distended, other (Drain in place with non-bloody effluent) Integumentary: other (poor turgor; ? neurofibromatous nodules over body) Extremities: no cyanosis, no edema, pink and warm, pulses normal Neurologic: normal mental status, non-focal exam, pupils equal and round, motor strength normal and Psychiatric: mood appropriate, anxious CBC and BMP: 05/14/18 06:40 05/19/18 Unknown ABG, PT/INR, D-dimer: ABG POC ABG pH 7.367 (7.35-7.45) 04/19/18 00:19 POC ABG pCO2 36.8 (35-45) 04/19/18 00:19 POC ABG pO2 84 (80-105) 04/19/18 00:19 POC ABG HCO3 21.1 04/19/18 00:19 POC ABG Total CO2 22 04/19/18 00:19 POC ABG O2 Sat 96 04/19/18 00:19 PT/INR, D-dimer PT 15.3 Sec. (12.2-14.9) H 04/22/18 05:19 INR 1.17 (0.87-1.13) H 04/22/18 05:19 Abnormal lab findings: Abnormal Labs 04/18/18 04/18/18 04/18/18 14:30 14:30 14:30 WBC 18.6 H RBC Hgb Hct RDW Lymph % (Auto) [place] % (Auto) Lymph # Seg Neutrophils % Seg Neuts % (Manual) 79.0 H Lymphocytes % (Manual) 4.0 L Seg Neutrophils # Man 14.7 H Lymphocytes # (Manual) 0.7 L PT 16.3 H INR 1.27 H VBG pH Sodium 121 L Potassium 3.0 L Chloride 78.0 L Carbon Dioxide BUN Creatinine 0.5 L Glucose 110 H POC Glucose Lactic Acid Calcium Phosphorus Magnesium Total Bilirubin 1.30 H AST 42 H Total Protein Albumin 3.1 L Crossmatch 04/18/18 04/18/18 04/18/18 14:30 14:30 23:59 WBC RBC Hgb Hct RDW 15.8 H Lymph % (Auto) [place] % (Auto) Lymph # Seg Neutrophils % Seg Neuts % (Manual) 78.0 H Lymphocytes % (Manual) 6.0 L Seg Neutrophils # Man Lymphocytes # (Manual) 0.5 L PT INR VBG pH 7.439 H Sodium Potassium Chloride Carbon Dioxide BUN Creatinine Glucose POC Glucose Lactic Acid 3.60 H* Calcium Phosphorus Magnesium Total Bilirubin AST Total Protein Albumin Crossmatch 04/18/18 04/19/18 04/19/18 23:59 05:19 05:19 WBC 15.0 H RBC Hgb Hct RDW 15.3 H Lymph % (Auto) [place] % (Auto) Lymph # Seg Neutrophils % Seg Neuts % (Manual) Lymphocytes % (Manual) 5.0 L Seg Neutrophils # Man 8.3 H Lymphocytes # (Manual) 0.8 L PT INR VBG pH Sodium 130 L D 133 L Potassium 3.5 L 3.3 L Chloride Carbon Dioxide 20 L D BUN Creatinine 0.5 L 0.6 L Glucose 140 H 115 H POC Glucose Lactic Acid Calcium 7.5 L 7.4 L Phosphorus Magnesium Total Bilirubin AST Total Protein 4.4 L D 4.1 L Albumin 2.0 L 1.9 L Crossmatch 04/19/18 04/19/18 04/20/18 05:19 13:05 05:18 WBC RBC Hgb Hct RDW Lymph % (Auto) [place] % (Auto) Lymph # Seg Neutrophils % Seg Neuts % (Manual) Lymphocytes % (Manual) Seg Neutrophils # Man Lymphocytes # (Manual) PT 19.4 H 17.4 H INR 1.59 H 1.38 H VBG pH Sodium Potassium Chloride Carbon Dioxide BUN Creatinine Glucose POC Glucose Lactic Acid Calcium Phosphorus Magnesium Total Bilirubin AST Total Protein Albumin Crossmatch See Detail 04/20/18 04/20/18 04/21/18 13:47 13:47 04:52 WBC RBC 3.29 L 3.10 L Hgb 9.6 L 8.8 L Hct 28.1 L D 26.6 L RDW 15.3 H 15.4 H Lymph % (Auto) 5.6 L [place] % (Auto) Lymph # 0.4 L Seg Neutrophils % 87.3 H Seg Neuts % (Manual) Lymphocytes % (Manual) Seg Neutrophils # Man Lymphocytes # (Manual) PT INR VBG pH Sodium Potassium Chloride Carbon Dioxide BUN Creatinine 0.3 L Glucose 102 H POC Glucose Lactic Acid Calcium 8.0 L Phosphorus Magnesium Total Bilirubin AST Total Protein Albumin Crossmatch 04/21/18 04/22/18 04/22/18 04:52 05:19 05:19 WBC RBC 3.64 L Hgb Hct RDW Lymph % (Auto) 8.5 L [place] % (Auto) 9.9 H Lymph # 0.6 L Seg Neutrophils % 81.0 H Seg Neuts % (Manual) Lymphocytes % (Manual) Seg Neutrophils # Man Lymphocytes # (Manual) PT 15.3 H INR 1.17 H VBG pH Sodium Potassium 3.2 L Chloride Carbon Dioxide BUN Creatinine 0.3 L Glucose POC Glucose Lactic Acid Calcium 7.6 L Phosphorus Magnesium Total Bilirubin AST Total Protein Albumin Crossmatch 04/22/18 04/24/18 04/24/18 05:19 07:19 07:19 WBC RBC Hgb Hct RDW Lymph % (Auto) [place] % (Auto) Lymph # Seg Neutrophils % Seg Neuts % (Manual) Lymphocytes % (Manual) Seg Neutrophils # Man Lymphocytes # (Manual) PT INR VBG pH Sodium Potassium 3.4 L 2.9 L* Chloride Carbon Dioxide BUN Creatinine 0.3 L 0.3 L Glucose 103 H POC Glucose Lactic Acid Calcium 7.7 L 7.5 L Phosphorus Magnesium 1.60 L Total Bilirubin AST Total Protein 4.3 L Albumin 2.2 L Crossmatch 04/24/18 04/25/18 04/25/18 07:23 06:28 06:28 WBC RBC Hgb Hct RDW 15.3 H 15.9 H Lymph % (Auto) 10.1 L [place] % (Auto) Lymph # 0.8 L Seg Neutrophils % 80.6 H Seg Neuts % (Manual) Lymphocytes % (Manual) 9.0 L Seg Neutrophils # Man Lymphocytes # (Manual) 0.7 L PT INR VBG pH Sodium Potassium 3.0 L Chloride Carbon Dioxide BUN 5 L Creatinine 0.2 L Glucose 108 H POC Glucose Lactic Acid Calcium 7.4 L Phosphorus Magnesium Total Bilirubin AST Total Protein 4.6 L Albumin 2.5 L Crossmatch 04/25/18 04/26/18 04/26/18 06:28 05:45 05:45 WBC 11.9 H RBC Hgb Hct RDW 16.2 H Lymph % (Auto) [place] % (Auto) Lymph # Seg Neutrophils % Seg Neuts % (Manual) Lymphocytes % (Manual) Seg Neutrophils # Man Lymphocytes # (Manual) PT INR VBG pH Sodium Potassium Chloride Carbon Dioxide BUN 5 L Creatinine 0.2 L Glucose 119 H POC Glucose Lactic Acid Calcium 7.7 L Phosphorus 2.00 L 2.20 L Magnesium Total Bilirubin AST Total Protein Albumin Crossmatch 04/27/18 04/28/18 04/28/18 05:33 06:00 06:00 WBC 11.2 H RBC Hgb Hct RDW 16.0 H Lymph % (Auto) [place] % (Auto) Lymph # Seg Neutrophils % Seg Neuts % (Manual) 92.0 H Lymphocytes % (Manual) 5.0 L Seg Neutrophils # Man 10.3 H Lymphocytes # (Manual) 0.6 L PT INR VBG pH Sodium Potassium 3.4 L 3.1 L Chloride Carbon Dioxide BUN 6 L 4 L Creatinine 0.2 L 0.2 L Glucose 119 H POC Glucose Lactic Acid Calcium 7.5 L 7.1 L Phosphorus 2.00 L 2.10 L Magnesium 1.50 L Total Bilirubin AST Total Protein 4.3 L Albumin 2.1 L Crossmatch 04/29/18 04/29/18 04/29/18 05:18 05:18 17:49 WBC 12.0 H RBC Hgb Hct RDW 16.0 H Lymph % (Auto) [place] % (Auto) Lymph # Seg Neutrophils % Seg Neuts % (Manual) 87.0 H Lymphocytes % (Manual) 10.0 L Seg Neutrophils # Man 10.4 H Lymphocytes # (Manual) PT INR VBG pH Sodium 135 L Potassium Chloride Carbon Dioxide BUN Creatinine 0.2 L Glucose 120 H POC Glucose 108 H Lactic Acid Calcium 7.5 L Phosphorus Magnesium Total Bilirubin AST Total Protein Albumin Crossmatch 04/30/18 04/30/18 04/30/18 00:03 05:18 05:41 WBC RBC Hgb Hct RDW Lymph % (Auto) [place] % (Auto) Lymph # Seg Neutrophils % Seg Neuts % (Manual) Lymphocytes % (Manual) Seg Neutrophils # Man Lymphocytes # (Manual) PT INR VBG pH Sodium 133 L Potassium Chloride Carbon Dioxide BUN Creatinine 0.2 L Glucose 119 H POC Glucose 112 H 110 H Lactic Acid Calcium 7.5 L Phosphorus Magnesium Total Bilirubin AST Total Protein Albumin Crossmatch 04/30/18 05/01/18 05/01/18 05:41 00:39 04:45 WBC RBC 3.60 L Hgb Hct RDW 16.0 H Lymph % (Auto) [place] % (Auto) Lymph # Seg Neutrophils % Seg Neuts % (Manual) 88.0 H Lymphocytes % (Manual) 8.0 L Seg Neutrophils # Man Lymphocytes # (Manual) 0.7 L PT INR VBG pH Sodium 132 L Potassium Chloride Carbon Dioxide BUN Creatinine 0.2 L Glucose 101 H POC Glucose 119 H Lactic Acid Calcium 7.6 L Phosphorus Magnesium Total Bilirubin AST Total Protein Albumin Crossmatch 05/01/18 05/01/18 05/01/18 06:30 16:09 23:42 WBC RBC Hgb Hct RDW Lymph % (Auto) [place] % (Auto) Lymph # Seg Neutrophils % Seg Neuts % (Manual) Lymphocytes % (Manual) Seg Neutrophils # Man Lymphocytes # (Manual) PT INR VBG pH Sodium Potassium Chloride Carbon Dioxide BUN Creatinine Glucose POC Glucose 126 H 160 H 113 H Lactic Acid Calcium Phosphorus Magnesium Total Bilirubin AST Total Protein Albumin Crossmatch 05/02/18 05/02/18 05/02/18 04:55 06:41 11:53 WBC RBC Hgb Hct RDW Lymph % (Auto) [place] % (Auto) Lymph # Seg Neutrophils % Seg Neuts % (Manual) Lymphocytes % (Manual) Seg Neutrophils # Man Lymphocytes # (Manual) PT INR VBG pH Sodium 134 L Potassium Chloride Carbon Dioxide BUN Creatinine 0.2 L Glucose 113 H POC Glucose 146 H 113 H Lactic Acid Calcium 7.4 L Phosphorus Magnesium Total Bilirubin AST Total Protein Albumin Crossmatch 05/02/18 05/02/18 05/03/18 17:33 23:37 08:46 WBC RBC 3.36 L Hgb 9.7 L Hct 28.7 L RDW 16.3 H Lymph % (Auto) [place] % (Auto) 10.0 H Lymph # Seg Neutrophils % Seg Neuts % (Manual) Lymphocytes % (Manual) Seg Neutrophils # Man Lymphocytes # (Manual) PT INR VBG pH Sodium Potassium Chloride Carbon Dioxide BUN Creatinine Glucose POC Glucose 106 H 123 H Lactic Acid Calcium Phosphorus Magnesium Total Bilirubin AST Total Protein Albumin Crossmatch 05/03/18 05/03/18 05/04/18 11:54 12:15 06:59 WBC RBC Hgb Hct RDW Lymph % (Auto) [place] % (Auto) Lymph # Seg Neutrophils % Seg Neuts % (Manual) Lymphocytes % (Manual) Seg Neutrophils # Man Lymphocytes # (Manual) PT INR VBG pH Sodium 136 L Potassium Chloride Carbon Dioxide BUN Creatinine 0.2 L Glucose 131 H POC Glucose 109 H 161 H Lactic Acid Calcium 7.6 L Phosphorus Magnesium Total Bilirubin AST Total Protein Albumin Crossmatch 05/04/18 05/04/18 05/04/18 07:03 08:02 11:10 WBC RBC 3.52 L Hgb Hct 29.8 L RDW 16.2 H Lymph % (Auto) [place] % (Auto) 8.6 H Lymph # Seg Neutrophils % Seg Neuts % (Manual) Lymphocytes % (Manual) Seg Neutrophils # Man Lymphocytes # (Manual) PT INR VBG pH Sodium 135 L Potassium Chloride Carbon Dioxide BUN Creatinine 0.2 L Glucose 160 H POC Glucose 106 H Lactic Acid Calcium 7.7 L Phosphorus Magnesium Total Bilirubin AST Total Protein Albumin Crossmatch 05/04/18 05/05/18 05/05/18 23:38 11:28 16:55 WBC RBC Hgb Hct RDW Lymph % (Auto) [place] % (Auto) Lymph # Seg Neutrophils % Seg Neuts % (Manual) Lymphocytes % (Manual) Seg Neutrophils # Man Lymphocytes # (Manual) PT INR VBG pH Sodium Potassium Chloride Carbon Dioxide BUN Creatinine Glucose POC Glucose 121 H 119 H 108 H Lactic Acid Calcium Phosphorus Magnesium Total Bilirubin AST Total Protein Albumin Crossmatch 05/05/18 05/06/18 05/06/18 Unknown 05:35 16:40 WBC RBC Hgb Hct RDW Lymph % (Auto) [place] % (Auto) Lymph # Seg Neutrophils % Seg Neuts % (Manual) Lymphocytes % (Manual) Seg Neutrophils # Man Lymphocytes # (Manual) PT INR VBG pH Sodium 135 L 136 L Potassium Chloride 97.9 L Carbon Dioxide BUN Creatinine 0.2 L 0.2 L Glucose 119 H POC Glucose 133 H Lactic Acid Calcium 8.0 L 8.1 L Phosphorus Magnesium Total Bilirubin AST 46 H Total Protein 5.5 L Albumin 2.7 L Crossmatch 05/06/18 05/07/18 05/07/18 22:07 05:38 05:40 WBC RBC Hgb Hct RDW Lymph % (Auto) [place] % (Auto) Lymph # Seg Neutrophils % Seg Neuts % (Manual) Lymphocytes % (Manual) Seg Neutrophils # Man Lymphocytes # (Manual) PT INR VBG pH Sodium 133 L Potassium Chloride Carbon Dioxide BUN Creatinine 0.2 L Glucose POC Glucose 168 H 107 H Lactic Acid Calcium 8.2 L Phosphorus Magnesium Total Bilirubin AST Total Protein Albumin Crossmatch 05/07/18 05/07/18 05/08/18 11:56 18:04 05:38 WBC RBC Hgb Hct RDW 16.3 H Lymph % (Auto) [place] % (Auto) 7.7 H Lymph # Seg Neutrophils % Seg Neuts % (Manual) Lymphocytes % (Manual) Seg Neutrophils # Man Lymphocytes # (Manual) PT INR VBG pH Sodium Potassium Chloride Carbon Dioxide BUN Creatinine Glucose POC Glucose 145 H 125 H Lactic Acid Calcium Phosphorus Magnesium Total Bilirubin AST Total Protein Albumin Crossmatch 05/08/18 05/08/18 05/08/18 05:38 11:35 16:23 WBC RBC Hgb Hct RDW Lymph % (Auto) [place] % (Auto) Lymph # Seg Neutrophils % Seg Neuts % (Manual) Lymphocytes % (Manual) Seg Neutrophils # Man Lymphocytes # (Manual) PT INR VBG pH Sodium 135 L Potassium Chloride Carbon Dioxide BUN Creatinine 0.2 L Glucose POC Glucose 118 H 131 H Lactic Acid Calcium Phosphorus Magnesium Total Bilirubin AST Total Protein Albumin Crossmatch 05/08/18 05/09/18 05/09/18 21:40 05:46 06:15 WBC RBC Hgb Hct RDW Lymph % (Auto) [place] % (Auto) Lymph # Seg Neutrophils % Seg Neuts % (Manual) Lymphocytes % (Manual) Seg Neutrophils # Man Lymphocytes # (Manual) PT INR VBG pH Sodium 135 L Potassium Chloride 97.5 L Carbon Dioxide BUN Creatinine 0.2 L Glucose POC Glucose 110 H 115 H Lactic Acid Calcium Phosphorus Magnesium Total Bilirubin AST Total Protein Albumin Crossmatch 05/09/18 05/09/18 05/10/18 11:28 23:53 06:22 WBC RBC Hgb Hct RDW Lymph % (Auto) [place] % (Auto) Lymph # Seg Neutrophils % Seg Neuts % (Manual) Lymphocytes % (Manual) Seg Neutrophils # Man Lymphocytes # (Manual) PT INR VBG pH Sodium Potassium Chloride Carbon Dioxide BUN Creatinine Glucose POC Glucose 145 H 132 H 149 H Lactic Acid Calcium Phosphorus Magnesium Total Bilirubin AST Total Protein Albumin Crossmatch 05/10/18 05/10/18 05/11/18 16:14 23:24 05:00 WBC RBC Hgb Hct RDW Lymph % (Auto) [place] % (Auto) Lymph # Seg Neutrophils % Seg Neuts % (Manual) Lymphocytes % (Manual) Seg Neutrophils # Man Lymphocytes # (Manual) PT INR VBG pH Sodium Potassium Chloride Carbon Dioxide BUN Creatinine 0.2 L Glucose 113 H POC Glucose 119 H 119 H Lactic Acid Calcium Phosphorus Magnesium Total Bilirubin AST Total Protein Albumin Crossmatch 05/11/18 05/11/18 05/11/18 05:57 11:23 16:29 WBC RBC Hgb Hct RDW Lymph % (Auto) [place] % (Auto) Lymph # Seg Neutrophils % Seg Neuts % (Manual) Lymphocytes % (Manual) Seg Neutrophils # Man Lymphocytes # (Manual) PT INR VBG pH Sodium Potassium Chloride Carbon Dioxide BUN Creatinine Glucose POC Glucose 173 H 143 H 159 H Lactic Acid Calcium Phosphorus Magnesium Total Bilirubin AST Total Protein Albumin Crossmatch 05/12/18 05/12/18 05/12/18 00:47 06:23 11:21 WBC RBC Hgb Hct RDW Lymph % (Auto) [place] % (Auto) Lymph # Seg Neutrophils % Seg Neuts % (Manual) Lymphocytes % (Manual) Seg Neutrophils # Man Lymphocytes # (Manual) PT INR VBG pH Sodium Potassium Chloride Carbon Dioxide BUN Creatinine Glucose POC Glucose 139 H 136 H 116 H Lactic Acid Calcium Phosphorus Magnesium Total Bilirubin AST Total Protein Albumin Crossmatch 05/12/18 05/12/18 05/12/18 17:19 17:22 22:22 WBC RBC Hgb Hct RDW Lymph % (Auto) [place] % (Auto) Lymph # Seg Neutrophils % Seg Neuts % (Manual) Lymphocytes % (Manual) Seg Neutrophils # Man Lymphocytes # (Manual) PT INR VBG pH Sodium Potassium Chloride Carbon Dioxide BUN Creatinine Glucose POC Glucose 329 H 116 H 124 H Lactic Acid Calcium Phosphorus Magnesium Total Bilirubin AST Total Protein Albumin Crossmatch 05/13/18 05/13/18 05/13/18 18:35 22:25 Unknown WBC RBC Hgb Hct RDW Lymph % (Auto) [place] % (Auto) Lymph # Seg Neutrophils % Seg Neuts % (Manual) Lymphocytes % (Manual) Seg Neutrophils # Man Lymphocytes # (Manual) PT INR VBG pH Sodium 136 L Potassium Chloride 97.8 L Carbon Dioxide BUN Creatinine 0.2 L Glucose POC Glucose 137 H 106 H Lactic Acid Calcium Phosphorus Magnesium Total Bilirubin AST 41 H Total Protein Albumin 3.5 L Crossmatch 05/14/18 05/14/18 05/14/18 06:40 06:40 12:48 WBC RBC 3.48 L Hgb 9.8 L Hct 29.1 L RDW 15.6 H Lymph % (Auto) [place] % (Auto) Lymph # Seg Neutrophils % Seg Neuts % (Manual) Lymphocytes % (Manual) Seg Neutrophils # Man Lymphocytes # (Manual) PT INR VBG pH Sodium Potassium Chloride Carbon Dioxide BUN Creatinine 0.2 L Glucose POC Glucose 113 H Lactic Acid Calcium 8.1 L Phosphorus Magnesium Total Bilirubin AST Total Protein Albumin Crossmatch 05/14/18 05/14/18 05/15/18 17:52 22:04 05:10 WBC RBC Hgb Hct RDW Lymph % (Auto) [place] % (Auto) Lymph # Seg Neutrophils % Seg Neuts % (Manual) Lymphocytes % (Manual) Seg Neutrophils # Man Lymphocytes # (Manual) PT INR VBG pH Sodium 135 L Potassium Chloride Carbon Dioxide BUN Creatinine 0.2 L Glucose POC Glucose 106 H 107 H Lactic Acid Calcium 8.2 L Phosphorus Magnesium Total Bilirubin AST Total Protein Albumin Crossmatch 05/15/18 05/15/18 05/15/18 06:24 11:31 16:47 WBC RBC Hgb Hct RDW Lymph % (Auto) [place] % (Auto) Lymph # Seg Neutrophils % Seg Neuts % (Manual) Lymphocytes % (Manual) Seg Neutrophils # Man Lymphocytes # (Manual) PT INR VBG pH Sodium Potassium Chloride Carbon Dioxide BUN Creatinine Glucose POC Glucose 125 H 133 H 135 H Lactic Acid Calcium Phosphorus Magnesium Total Bilirubin AST Total Protein Albumin Crossmatch 05/16/18 05/16/18 05/16/18 00:13 04:30 05:59 WBC RBC Hgb Hct RDW Lymph % (Auto) [place] % (Auto) Lymph # Seg Neutrophils % Seg Neuts % (Manual) Lymphocytes % (Manual) Seg Neutrophils # Man Lymphocytes # (Manual) PT INR VBG pH Sodium Potassium Chloride Carbon Dioxide BUN Creatinine 0.2 L Glucose POC Glucose 132 H 113 H Lactic Acid Calcium Phosphorus Magnesium Total Bilirubin AST Total Protein Albumin Crossmatch 05/16/18 05/16/18 05/17/18 13:03 18:51 05:06 WBC RBC Hgb Hct RDW Lymph % (Auto) [place] % (Auto) Lymph # Seg Neutrophils % Seg Neuts % (Manual) Lymphocytes % (Manual) Seg Neutrophils # Man Lymphocytes # (Manual) PT INR VBG pH Sodium Potassium Chloride Carbon Dioxide BUN Creatinine Glucose POC Glucose 112 H 111 H 128 H Lactic Acid Calcium Phosphorus Magnesium Total Bilirubin AST Total Protein Albumin Crossmatch 05/17/18 05/18/18 05/19/18 06:07 07:43 Unknown WBC RBC Hgb Hct RDW Lymph % (Auto) [place] % (Auto) Lymph # Seg Neutrophils % Seg Neuts % (Manual) Lymphocytes % (Manual) Seg Neutrophils # Man Lymphocytes # (Manual) PT INR VBG pH Sodium 135 L 136 L Potassium Chloride Carbon Dioxide BUN Creatinine 0.2 L 0.2 L 0.2 L Glucose 133 H 117 H POC Glucose Lactic Acid Calcium 8.2 L Phosphorus 4.60 H D Magnesium Total Bilirubin AST Total Protein Albumin Crossmatch Allied health notes reviewed: nursing
[2018-05-19] MEDS: BROVANA NEBU IH SCH ×2 (19:23→20:00)
[2018-05-19] MEDS: PULMICORT IH SCH ×2 (19:23→20:00)
[2018-05-19] MEDS ORDERED: TPN ADULT 1,800 ML IV SCH (20:00)
[2018-05-19] MEDS: REMERON PO SCH (21:14)
[2018-05-20] MEDS: XANAX PO PRN (01:16)
[2018-05-20] MEDS: DILAUDID IV PRN ×5 (03:19→20:18)
[2018-05-20] MEDS ORDERED: DILAUDID IV ONE (04:30)
[2018-05-20 07:03] LABS: Alanine Aminotransferase 32 units/L (7-56); Albumin 2.9 g/dL (3.9-5); BUN/Creatinine Ratio 55; Blood Urea Nitrogen 11 mg/dL (7-17); Calcium 8.3 mg/dL (8.4-10.2); Hemolysis Index 0; Prealbumin 0.113 g/L (0.200-0.400)
[2018-05-20] MEDS: NEURONTIN PO SCH ×3 (07:51→20:18)
[2018-05-20] MEDS: BROVANA NEBU IH SCH ×2 (08:49→20:42)
[2018-05-20] MEDS: PULMICORT IH SCH ×2 (08:49→20:39)
[2018-05-20] MEDS: COZAAR PO SCH (09:23)
[2018-05-20] MEDS: LOPRESSOR PO SCH ×2 (09:23→21:55)
--- NOTE | 2018-05-20 10:28 | Progress Note ---
Assessment and Plan Patient awake and weak. Resting on room air at this time.No complaint of chest pain, shortness of breath or cough.Patient running low grade temp at times. No leukocytosis. - Patient Problems (1) Appendicitis with perforation Current Visit: Yes Status: Acute Plan to address problem: S/p resection of perforated appendex. (2) Sepsis Current Visit: Yes Status: Acute Qualifiers: Sepsis type: Escherichia coli Qualified Code(s): A41.51 - Sepsis due to Escherichia coli [E. coli] Plan to address problem: Resolved. Patient off the antibiotics. (3) Acute metabolic encephalopathy Current Visit: No Status: Acute Plan to address problem: Appears improved. Management as per primary care. (4) Marijuana abuse Current Visit: No Status: Acute Plan to address problem: Counselled not use marijuana. Subjective Date of service: 05/20/18 Principal diagnosis: Sepsis; Ex-lap appendectomy and evacuation of pelvic abscess; Peritonitis Interval history: Patient awake and weak. Resting on room air at this time.No complaint of chest pain, shortness of breath or cough. Objective Vital Signs - 12hr 05/19/18 05/20/18 05/20/18 23:12 00:02 03:31 Temperature 99.1 F Pulse Rate 110 H 112 H Respiratory 18 Rate Blood Pressure 135/67 137/74 Blood Pressure 135/67 [Left] O2 Sat by Pulse 98 95 Oximetry 05/20/18 05/20/18 05/20/18 05:12 07:37 07:43 Temperature 99.1 F 99.1 F Pulse Rate 112 H 116 H Respiratory 18 20 Rate Blood Pressure 139/73 Blood Pressure 137/74 [Left] O2 Sat by Pulse 96 Oximetry 05/20/18 05/20/18 05/20/18 07:50 08:20 09:23 Temperature Pulse Rate 116 H Respiratory 20 20 Rate Blood Pressure 139/73 Blood Pressure [Left] O2 Sat by Pulse Oximetry Constitutional: no acute distress, alert, other (chronically ill looking this middle aged CF, normocephalic) Eyes: non-icteric ENT: oropharynx moist, other (Mallampati 2) Neck: supple, no lymphadenopathy, no JVD Effort: mildly labored Ascultation: Bilateral: diminished breath sounds, rhonchi (scant in bases) Percussion: Bilateral: not dull Cardiovascular: regular rate and rhythm Gastrointestinal: normoactive bowel sounds, soft, tender (bhargav-op site), non- distended, other (Drain in place with non-bloody effluent) Integumentary: other (poor turgor; ? neurofibromatous nodules over body) Extremities: no cyanosis, no edema, pink and warm, pulses normal Neurologic: normal mental status, non-focal exam, pupils equal and round, motor strength normal and Psychiatric: mood appropriate, anxious CBC and BMP: 05/14/18 06:40 05/20/18 06:25 ABG, PT/INR, D-dimer: ABG POC ABG pH 7.367 (7.35-7.45) 04/19/18 00:19 POC ABG pCO2 36.8 (35-45) 04/19/18 00:19 POC ABG pO2 84 (80-105) 04/19/18 00:19 POC ABG HCO3 21.1 04/19/18 00:19 POC ABG Total CO2 22 04/19/18 00:19 POC ABG O2 Sat 96 04/19/18 00:19 PT/INR, D-dimer PT 15.3 Sec. (12.2-14.9) H 04/22/18 05:19 INR 1.17 (0.87-1.13) H 04/22/18 05:19 Abnormal lab findings: Abnormal Labs 04/18/18 04/18/18 04/18/18 14:30 14:30 14:30 WBC 18.6 H RBC Hgb Hct RDW Lymph % (Auto) [place] % (Auto) Lymph # Seg Neutrophils % Seg Neuts % (Manual) 79.0 H Lymphocytes % (Manual) 4.0 L Seg Neutrophils # Man 14.7 H Lymphocytes # (Manual) 0.7 L PT 16.3 H INR 1.27 H VBG pH Sodium 121 L Potassium 3.0 L Chloride 78.0 L Carbon Dioxide BUN Creatinine 0.5 L Glucose 110 H POC Glucose Lactic Acid Calcium Phosphorus Magnesium Total Bilirubin 1.30 H AST 42 H Total Protein Albumin 3.1 L Prealbumin Crossmatch 04/18/18 04/18/18 04/18/18 14:30 14:30 23:59 WBC RBC Hgb Hct RDW 15.8 H Lymph % (Auto) [place] % (Auto) Lymph # Seg Neutrophils % Seg Neuts % (Manual) 78.0 H Lymphocytes % (Manual) 6.0 L Seg Neutrophils # Man Lymphocytes # (Manual) 0.5 L PT INR VBG pH 7.439 H Sodium Potassium Chloride Carbon Dioxide BUN Creatinine Glucose POC Glucose Lactic Acid 3.60 H* Calcium Phosphorus Magnesium Total Bilirubin AST Total Protein Albumin Prealbumin Crossmatch 04/18/18 04/19/18 04/19/18 23:59 05:19 05:19 WBC 15.0 H RBC Hgb Hct RDW 15.3 H Lymph % (Auto) [place] % (Auto) Lymph # Seg Neutrophils % Seg Neuts % (Manual) Lymphocytes % (Manual) 5.0 L Seg Neutrophils # Man 8.3 H Lymphocytes # (Manual) 0.8 L PT INR VBG pH Sodium 130 L D 133 L Potassium 3.5 L 3.3 L Chloride Carbon Dioxide 20 L D BUN Creatinine 0.5 L 0.6 L Glucose 140 H 115 H POC Glucose Lactic Acid Calcium 7.5 L 7.4 L Phosphorus Magnesium Total Bilirubin AST Total Protein 4.4 L D 4.1 L Albumin 2.0 L 1.9 L Prealbumin Crossmatch 04/19/18 04/19/18 04/20/18 05:19 13:05 05:18 WBC RBC Hgb Hct RDW Lymph % (Auto) [place] % (Auto) Lymph # Seg Neutrophils % Seg Neuts % (Manual) Lymphocytes % (Manual) Seg Neutrophils # Man Lymphocytes # (Manual) PT 19.4 H 17.4 H INR 1.59 H 1.38 H VBG pH Sodium Potassium Chloride Carbon Dioxide BUN Creatinine Glucose POC Glucose Lactic Acid Calcium Phosphorus Magnesium Total Bilirubin AST Total Protein Albumin Prealbumin Crossmatch See Detail 04/20/18 04/20/18 04/21/18 13:47 13:47 04:52 WBC RBC 3.29 L 3.10 L Hgb 9.6 L 8.8 L Hct 28.1 L D 26.6 L RDW 15.3 H 15.4 H Lymph % (Auto) 5.6 L [place] % (Auto) Lymph # 0.4 L Seg Neutrophils % 87.3 H Seg Neuts % (Manual) Lymphocytes % (Manual) Seg Neutrophils # Man Lymphocytes # (Manual) PT INR VBG pH Sodium Potassium Chloride Carbon Dioxide BUN Creatinine 0.3 L Glucose 102 H POC Glucose Lactic Acid Calcium 8.0 L Phosphorus Magnesium Total Bilirubin AST Total Protein Albumin Prealbumin Crossmatch 04/21/18 04/22/18 04/22/18 04:52 05:19 05:19 WBC RBC 3.64 L Hgb Hct RDW Lymph % (Auto) 8.5 L [place] % (Auto) 9.9 H Lymph # 0.6 L Seg Neutrophils % 81.0 H Seg Neuts % (Manual) Lymphocytes % (Manual) Seg Neutrophils # Man Lymphocytes # (Manual) PT 15.3 H INR 1.17 H VBG pH Sodium Potassium 3.2 L Chloride Carbon Dioxide BUN Creatinine 0.3 L Glucose POC Glucose Lactic Acid Calcium 7.6 L Phosphorus Magnesium Total Bilirubin AST Total Protein Albumin Prealbumin Crossmatch 04/22/18 04/24/18 04/24/18 05:19 07:19 07:19 WBC RBC Hgb Hct RDW Lymph % (Auto) [place] % (Auto) Lymph # Seg Neutrophils % Seg Neuts % (Manual) Lymphocytes % (Manual) Seg Neutrophils # Man Lymphocytes # (Manual) PT INR VBG pH Sodium Potassium 3.4 L 2.9 L* Chloride Carbon Dioxide BUN Creatinine 0.3 L 0.3 L Glucose 103 H POC Glucose Lactic Acid Calcium 7.7 L 7.5 L Phosphorus Magnesium 1.60 L Total Bilirubin AST Total Protein 4.3 L Albumin 2.2 L Prealbumin Crossmatch 04/24/18 04/25/18 04/25/18 07:23 06:28 06:28 WBC RBC Hgb Hct RDW 15.3 H 15.9 H Lymph % (Auto) 10.1 L [place] % (Auto) Lymph # 0.8 L Seg Neutrophils % 80.6 H Seg Neuts % (Manual) Lymphocytes % (Manual) 9.0 L Seg Neutrophils # Man Lymphocytes # (Manual) 0.7 L PT INR VBG pH Sodium Potassium 3.0 L Chloride Carbon Dioxide BUN 5 L Creatinine 0.2 L Glucose 108 H POC Glucose Lactic Acid Calcium 7.4 L Phosphorus Magnesium Total Bilirubin AST Total Protein 4.6 L Albumin 2.5 L Prealbumin Crossmatch 04/25/18 04/26/18 04/26/18 06:28 05:45 05:45 WBC 11.9 H RBC Hgb Hct RDW 16.2 H Lymph % (Auto) [place] % (Auto) Lymph # Seg Neutrophils % Seg Neuts % (Manual) Lymphocytes % (Manual) Seg Neutrophils # Man Lymphocytes # (Manual) PT INR VBG pH Sodium Potassium Chloride Carbon Dioxide BUN 5 L Creatinine 0.2 L Glucose 119 H POC Glucose Lactic Acid Calcium 7.7 L Phosphorus 2.00 L 2.20 L Magnesium Total Bilirubin AST Total Protein Albumin Prealbumin Crossmatch 04/27/18 04/28/18 04/28/18 05:33 06:00 06:00 WBC 11.2 H RBC Hgb Hct RDW 16.0 H Lymph % (Auto) [place] % (Auto) Lymph # Seg Neutrophils % Seg Neuts % (Manual) 92.0 H Lymphocytes % (Manual) 5.0 L Seg Neutrophils # Man 10.3 H Lymphocytes # (Manual) 0.6 L PT INR VBG pH Sodium Potassium 3.4 L 3.1 L Chloride Carbon Dioxide BUN 6 L 4 L Creatinine 0.2 L 0.2 L Glucose 119 H POC Glucose Lactic Acid Calcium 7.5 L 7.1 L Phosphorus 2.00 L 2.10 L Magnesium 1.50 L Total Bilirubin AST Total Protein 4.3 L Albumin 2.1 L Prealbumin Crossmatch 04/29/18 04/29/18 04/29/18 05:18 05:18 17:49 WBC 12.0 H RBC Hgb Hct RDW 16.0 H Lymph % (Auto) [place] % (Auto) Lymph # Seg Neutrophils % Seg Neuts % (Manual) 87.0 H Lymphocytes % (Manual) 10.0 L Seg Neutrophils # Man 10.4 H Lymphocytes # (Manual) PT INR VBG pH Sodium 135 L Potassium Chloride Carbon Dioxide BUN Creatinine 0.2 L Glucose 120 H POC Glucose 108 H Lactic Acid Calcium 7.5 L Phosphorus Magnesium Total Bilirubin AST Total Protein Albumin Prealbumin Crossmatch 04/30/18 04/30/18 04/30/18 00:03 05:18 05:41 WBC RBC Hgb Hct RDW Lymph % (Auto) [place] % (Auto) Lymph # Seg Neutrophils % Seg Neuts % (Manual) Lymphocytes % (Manual) Seg Neutrophils # Man Lymphocytes # (Manual) PT INR VBG pH Sodium 133 L Potassium Chloride Carbon Dioxide BUN Creatinine 0.2 L Glucose 119 H POC Glucose 112 H 110 H Lactic Acid Calcium 7.5 L Phosphorus Magnesium Total Bilirubin AST Total Protein Albumin Prealbumin Crossmatch 04/30/18 05/01/18 05/01/18 05:41 00:39 04:45 WBC RBC 3.60 L Hgb Hct RDW 16.0 H Lymph % (Auto) [place] % (Auto) Lymph # Seg Neutrophils % Seg Neuts % (Manual) 88.0 H Lymphocytes % (Manual) 8.0 L Seg Neutrophils # Man Lymphocytes # (Manual) 0.7 L PT INR VBG pH Sodium 132 L Potassium Chloride Carbon Dioxide BUN Creatinine 0.2 L Glucose 101 H POC Glucose 119 H Lactic Acid Calcium 7.6 L Phosphorus Magnesium Total Bilirubin AST Total Protein Albumin Prealbumin Crossmatch 05/01/18 05/01/18 05/01/18 06:30 16:09 23:42 WBC RBC Hgb Hct RDW Lymph % (Auto) [place] % (Auto) Lymph # Seg Neutrophils % Seg Neuts % (Manual) Lymphocytes % (Manual) Seg Neutrophils # Man Lymphocytes # (Manual) PT INR VBG pH Sodium Potassium Chloride Carbon Dioxide BUN Creatinine Glucose POC Glucose 126 H 160 H 113 H Lactic Acid Calcium Phosphorus Magnesium Total Bilirubin AST Total Protein Albumin Prealbumin Crossmatch 05/02/18 05/02/18 05/02/18 04:55 06:41 11:53 WBC RBC Hgb Hct RDW Lymph % (Auto) [place] % (Auto) Lymph # Seg Neutrophils % Seg Neuts % (Manual) Lymphocytes % (Manual) Seg Neutrophils # Man Lymphocytes # (Manual) PT INR VBG pH Sodium 134 L Potassium Chloride Carbon Dioxide BUN Creatinine 0.2 L Glucose 113 H POC Glucose 146 H 113 H Lactic Acid Calcium 7.4 L Phosphorus Magnesium Total Bilirubin AST Total Protein Albumin Prealbumin Crossmatch 05/02/18 05/02/18 05/03/18 17:33 23:37 08:46 WBC RBC 3.36 L Hgb 9.7 L Hct 28.7 L RDW 16.3 H Lymph % (Auto) [place] % (Auto) 10.0 H Lymph # Seg Neutrophils % Seg Neuts % (Manual) Lymphocytes % (Manual) Seg Neutrophils # Man Lymphocytes # (Manual) PT INR VBG pH Sodium Potassium Chloride Carbon Dioxide BUN Creatinine Glucose POC Glucose 106 H 123 H Lactic Acid Calcium Phosphorus Magnesium Total Bilirubin AST Total Protein Albumin Prealbumin Crossmatch 05/03/18 05/03/18 05/04/18 11:54 12:15 06:59 WBC RBC Hgb Hct RDW Lymph % (Auto) [place] % (Auto) Lymph # Seg Neutrophils % Seg Neuts % (Manual) Lymphocytes % (Manual) Seg Neutrophils # Man Lymphocytes # (Manual) PT INR VBG pH Sodium 136 L Potassium Chloride Carbon Dioxide BUN Creatinine 0.2 L Glucose 131 H POC Glucose 109 H 161 H Lactic Acid Calcium 7.6 L Phosphorus Magnesium Total Bilirubin AST Total Protein Albumin Prealbumin Crossmatch 05/04/18 05/04/18 05/04/18 07:03 08:02 11:10 WBC RBC 3.52 L Hgb Hct 29.8 L RDW 16.2 H Lymph % (Auto) [place] % (Auto) 8.6 H Lymph # Seg Neutrophils % Seg Neuts % (Manual) Lymphocytes % (Manual) Seg Neutrophils # Man Lymphocytes # (Manual) PT INR VBG pH Sodium 135 L Potassium Chloride Carbon Dioxide BUN Creatinine 0.2 L Glucose 160 H POC Glucose 106 H Lactic Acid Calcium 7.7 L Phosphorus Magnesium Total Bilirubin AST Total Protein Albumin Prealbumin Crossmatch 05/04/18 05/05/18 05/05/18 23:38 11:28 16:55 WBC RBC Hgb Hct RDW Lymph % (Auto) [place] % (Auto) Lymph # Seg Neutrophils % Seg Neuts % (Manual) Lymphocytes % (Manual) Seg Neutrophils # Man Lymphocytes # (Manual) PT INR VBG pH Sodium Potassium Chloride Carbon Dioxide BUN Creatinine Glucose POC Glucose 121 H 119 H 108 H Lactic Acid Calcium Phosphorus Magnesium Total Bilirubin AST Total Protein Albumin Prealbumin Crossmatch 05/05/18 05/06/18 05/06/18 Unknown 05:35 16:40 WBC RBC Hgb Hct RDW Lymph % (Auto) [place] % (Auto) Lymph # Seg Neutrophils % Seg Neuts % (Manual) Lymphocytes % (Manual) Seg Neutrophils # Man Lymphocytes # (Manual) PT INR VBG pH Sodium 135 L 136 L Potassium Chloride 97.9 L Carbon Dioxide BUN Creatinine 0.2 L 0.2 L Glucose 119 H POC Glucose 133 H Lactic Acid Calcium 8.0 L 8.1 L Phosphorus Magnesium Total Bilirubin AST 46 H Total Protein 5.5 L Albumin 2.7 L Prealbumin Crossmatch 05/06/18 05/07/18 05/07/18 22:07 05:38 05:40 WBC RBC Hgb Hct RDW Lymph % (Auto) [place] % (Auto) Lymph # Seg Neutrophils % Seg Neuts % (Manual) Lymphocytes % (Manual) Seg Neutrophils # Man Lymphocytes # (Manual) PT INR VBG pH Sodium 133 L Potassium Chloride Carbon Dioxide BUN Creatinine 0.2 L Glucose POC Glucose 168 H 107 H Lactic Acid Calcium 8.2 L Phosphorus Magnesium Total Bilirubin AST Total Protein Albumin Prealbumin Crossmatch 05/07/18 05/07/18 05/08/18 11:56 18:04 05:38 WBC RBC Hgb Hct RDW 16.3 H Lymph % (Auto) [place] % (Auto) 7.7 H Lymph # Seg Neutrophils % Seg Neuts % (Manual) Lymphocytes % (Manual) Seg Neutrophils # Man Lymphocytes # (Manual) PT INR VBG pH Sodium Potassium Chloride Carbon Dioxide BUN Creatinine Glucose POC Glucose 145 H 125 H Lactic Acid Calcium Phosphorus Magnesium Total Bilirubin AST Total Protein Albumin Prealbumin Crossmatch 05/08/18 05/08/18 05/08/18 05:38 11:35 16:23 WBC RBC Hgb Hct RDW Lymph % (Auto) [place] % (Auto) Lymph # Seg Neutrophils % Seg Neuts % (Manual) Lymphocytes % (Manual) Seg Neutrophils # Man Lymphocytes # (Manual) PT INR VBG pH Sodium 135 L Potassium Chloride Carbon Dioxide BUN Creatinine 0.2 L Glucose POC Glucose 118 H 131 H Lactic Acid Calcium Phosphorus Magnesium Total Bilirubin AST Total Protein Albumin Prealbumin Crossmatch 05/08/18 05/09/18 05/09/18 21:40 05:46 06:15 WBC RBC Hgb Hct RDW Lymph % (Auto) [place] % (Auto) Lymph # Seg Neutrophils % Seg Neuts % (Manual) Lymphocytes % (Manual) Seg Neutrophils # Man Lymphocytes # (Manual) PT INR VBG pH Sodium 135 L Potassium Chloride 97.5 L Carbon Dioxide BUN Creatinine 0.2 L Glucose POC Glucose 110 H 115 H Lactic Acid Calcium Phosphorus Magnesium Total Bilirubin AST Total Protein Albumin Prealbumin Crossmatch 05/09/18 05/09/18 05/10/18 11:28 23:53 06:22 WBC RBC Hgb Hct RDW Lymph % (Auto) [place] % (Auto) Lymph # Seg Neutrophils % Seg Neuts % (Manual) Lymphocytes % (Manual) Seg Neutrophils # Man Lymphocytes # (Manual) PT INR VBG pH Sodium Potassium Chloride Carbon Dioxide BUN Creatinine Glucose POC Glucose 145 H 132 H 149 H Lactic Acid Calcium Phosphorus Magnesium Total Bilirubin AST Total Protein Albumin Prealbumin Crossmatch 05/10/18 05/10/18 05/11/18 16:14 23:24 05:00 WBC RBC Hgb Hct RDW Lymph % (Auto) [place] % (Auto) Lymph # Seg Neutrophils % Seg Neuts % (Manual) Lymphocytes % (Manual) Seg Neutrophils # Man Lymphocytes # (Manual) PT INR VBG pH Sodium Potassium Chloride Carbon Dioxide BUN Creatinine 0.2 L Glucose 113 H POC Glucose 119 H 119 H Lactic Acid Calcium Phosphorus Magnesium Total Bilirubin AST Total Protein Albumin Prealbumin Crossmatch 05/11/18 05/11/18 05/11/18 05:57 11:23 16:29 WBC RBC Hgb Hct RDW Lymph % (Auto) [place] % (Auto) Lymph # Seg Neutrophils % Seg Neuts % (Manual) Lymphocytes % (Manual) Seg Neutrophils # Man Lymphocytes # (Manual) PT INR VBG pH Sodium Potassium Chloride Carbon Dioxide BUN Creatinine Glucose POC Glucose 173 H 143 H 159 H Lactic Acid Calcium Phosphorus Magnesium Total Bilirubin AST Total Protein Albumin Prealbumin Crossmatch 05/12/18 05/12/18 05/12/18 00:47 06:23 11:21 WBC RBC Hgb Hct RDW Lymph % (Auto) [place] % (Auto) Lymph # Seg Neutrophils % Seg Neuts % (Manual) Lymphocytes % (Manual) Seg Neutrophils # Man Lymphocytes # (Manual) PT INR VBG pH Sodium Potassium Chloride Carbon Dioxide BUN Creatinine Glucose POC Glucose 139 H 136 H 116 H Lactic Acid Calcium Phosphorus Magnesium Total Bilirubin AST Total Protein Albumin Prealbumin Crossmatch 05/12/18 05/12/18 05/12/18 17:19 17:22 22:22 WBC RBC Hgb Hct RDW Lymph % (Auto) [place] % (Auto) Lymph # Seg Neutrophils % Seg Neuts % (Manual) Lymphocytes % (Manual) Seg Neutrophils # Man Lymphocytes # (Manual) PT INR VBG pH Sodium Potassium Chloride Carbon Dioxide BUN Creatinine Glucose POC Glucose 329 H 116 H 124 H Lactic Acid Calcium Phosphorus Magnesium Total Bilirubin AST Total Protein Albumin Prealbumin Crossmatch 05/13/18 05/13/18 05/13/18 18:35 22:25 Unknown WBC RBC Hgb Hct RDW Lymph % (Auto) [place] % (Auto) Lymph # Seg Neutrophils % Seg Neuts % (Manual) Lymphocytes % (Manual) Seg Neutrophils # Man Lymphocytes # (Manual) PT INR VBG pH Sodium 136 L Potassium Chloride 97.8 L Carbon Dioxide BUN Creatinine 0.2 L Glucose POC Glucose 137 H 106 H Lactic Acid Calcium Phosphorus Magnesium Total Bilirubin AST 41 H Total Protein Albumin 3.5 L Prealbumin Crossmatch 05/14/18 05/14/18 05/14/18 06:40 06:40 12:48 WBC RBC 3.48 L Hgb 9.8 L Hct 29.1 L RDW 15.6 H Lymph % (Auto) [place] % (Auto) Lymph # Seg Neutrophils % Seg Neuts % (Manual) Lymphocytes % (Manual) Seg Neutrophils # Man Lymphocytes # (Manual) PT INR VBG pH Sodium Potassium Chloride Carbon Dioxide BUN Creatinine 0.2 L Glucose POC Glucose 113 H Lactic Acid Calcium 8.1 L Phosphorus Magnesium Total Bilirubin AST Total Protein Albumin Prealbumin Crossmatch 05/14/18 05/14/18 05/15/18 17:52 22:04 05:10 WBC RBC Hgb Hct RDW Lymph % (Auto) [place] % (Auto) Lymph # Seg Neutrophils % Seg Neuts % (Manual) Lymphocytes % (Manual) Seg Neutrophils # Man Lymphocytes # (Manual) PT INR VBG pH Sodium 135 L Potassium Chloride Carbon Dioxide BUN Creatinine 0.2 L Glucose POC Glucose 106 H 107 H Lactic Acid Calcium 8.2 L Phosphorus Magnesium Total Bilirubin AST Total Protein Albumin Prealbumin Crossmatch 05/15/18 05/15/18 05/15/18 06:24 11:31 16:47 WBC RBC Hgb Hct RDW Lymph % (Auto) [place] % (Auto) Lymph # Seg Neutrophils % Seg Neuts % (Manual) Lymphocytes % (Manual) Seg Neutrophils # Man Lymphocytes # (Manual) PT INR VBG pH Sodium Potassium Chloride Carbon Dioxide BUN Creatinine Glucose POC Glucose 125 H 133 H 135 H Lactic Acid Calcium Phosphorus Magnesium Total Bilirubin AST Total Protein Albumin Prealbumin Crossmatch 05/16/18 05/16/18 05/16/18 00:13 04:30 05:59 WBC RBC Hgb Hct RDW Lymph % (Auto) [place] % (Auto) Lymph # Seg Neutrophils % Seg Neuts % (Manual) Lymphocytes % (Manual) Seg Neutrophils # Man Lymphocytes # (Manual) PT INR VBG pH Sodium Potassium Chloride Carbon Dioxide BUN Creatinine 0.2 L Glucose POC Glucose 132 H 113 H Lactic Acid Calcium Phosphorus Magnesium Total Bilirubin AST Total Protein Albumin Prealbumin Crossmatch 05/16/18 05/16/18 05/17/18 13:03 18:51 05:06 WBC RBC Hgb Hct RDW Lymph % (Auto) [place] % (Auto) Lymph # Seg Neutrophils % Seg Neuts % (Manual) Lymphocytes % (Manual) Seg Neutrophils # Man Lymphocytes # (Manual) PT INR VBG pH Sodium Potassium Chloride Carbon Dioxide BUN Creatinine Glucose POC Glucose 112 H 111 H 128 H Lactic Acid Calcium Phosphorus Magnesium Total Bilirubin AST Total Protein Albumin Prealbumin Crossmatch 05/17/18 05/18/18 05/19/18 06:07 07:43 Unknown WBC RBC Hgb Hct RDW Lymph % (Auto) [place] % (Auto) Lymph # Seg Neutrophils % Seg Neuts % (Manual) Lymphocytes % (Manual) Seg Neutrophils # Man Lymphocytes # (Manual) PT INR VBG pH Sodium 135 L 136 L Potassium Chloride Carbon Dioxide BUN Creatinine 0.2 L 0.2 L 0.2 L Glucose 133 H 117 H POC Glucose Lactic Acid Calcium 8.2 L Phosphorus 4.60 H D Magnesium Total Bilirubin AST Total Protein Albumin Prealbumin Crossmatch 05/20/18 06:25 WBC RBC Hgb Hct RDW Lymph % (Auto) [place] % (Auto) Lymph # Seg Neutrophils % Seg Neuts % (Manual) Lymphocytes % (Manual) Seg Neutrophils # Man Lymphocytes # (Manual) PT INR VBG pH Sodium 135 L Potassium Chloride Carbon Dioxide BUN Creatinine 0.2 L Glucose 108 H POC Glucose Lactic Acid Calcium 8.3 L Phosphorus Magnesium Total Bilirubin AST Total Protein 5.6 L Albumin 2.9 L Prealbumin 0.113 L Crossmatch Allied health notes reviewed: nursing
[2018-05-20] MEDS: DURAGESIC TD SCH (10:55)
[2018-05-20] MEDS: IMODIUM PO PRN (11:59)
[2018-05-20] MEDS ORDERED: TYLENOL PR PRN (12:12)
--- NOTE | 2018-05-20 12:17 | Progress Note ---
Assessment and Plan Pt status quo. was refusing her sandostatin. stressed importance of taking. pt states will agree. RN states that urine "color of sump drainage". Abd soft, non tender stable. r/o entero-vesico fistula? RN to save sample of urine for eval continue present care Selected Entries 05/20/18 05/20/18 05/20/18 07:37 07:43 08:20 Temperature 99.1 F Pulse Rate 116 H Respiratory 20 Rate Blood Pressure 139/73 Laboratory Tests 05/20/18 06:25 Sodium 135 L Potassium 4.2 Chloride 100.8 Carbon Dioxide 28 BUN 11 Creatinine 0.2 L Objective Vital Signs - 12hr 05/20/18 05/20/18 05/20/18 03:31 05:12 07:37 Temperature 99.1 F Pulse Rate 112 H 112 H Respiratory 18 20 Rate Blood Pressure 137/74 139/73 Blood Pressure 137/74 [Left] O2 Sat by Pulse 95 96 Oximetry 05/20/18 05/20/18 05/20/18 07:43 07:50 08:20 Temperature 99.1 F Pulse Rate 116 H Respiratory 20 20 Rate Blood Pressure Blood Pressure [Left] O2 Sat by Pulse Oximetry 05/20/18 05/20/18 05/20/18 09:23 10:55 12:00 Temperature Pulse Rate 116 H Respiratory 20 20 Rate Blood Pressure 139/73 Blood Pressure [Left] O2 Sat by Pulse Oximetry - Labs 05/14/18 06:40 05/20/18 06:25 Diabetes panel 05/20/18 Range/Units 06:25 Sodium 135 L (137-145) mmol/L Potassium 4.2 (3.6-5.0) mmol/L Chloride 100.8 (98-107) mmol/L Carbon Dioxide 28 (22-30) mmol/L BUN 11 (7-17) mg/dL Creatinine 0.2 L (0.7-1.2) mg/dL Glucose 108 H (65-100) mg/dL Calcium 8.3 L (8.4-10.2) mg/dL AST 29 (5-40) units/L ALT 32 (7-56) units/L Alkaline Phosphatase 91 (35-129) units/L Total Protein 5.6 L (6.3-8.2) g/dL Albumin 2.9 L (3.9-5) g/dL Calcium panel 05/20/18 Range/Units 06:25 Calcium 8.3 L (8.4-10.2) mg/dL Phosphorus 3.30 D (2.5-4.5) mg/dL Albumin 2.9 L (3.9-5) g/dL Pituitary panel 05/20/18 Range/Units 06:25 Sodium 135 L (137-145) mmol/L Potassium 4.2 (3.6-5.0) mmol/L Chloride 100.8 (98-107) mmol/L Carbon Dioxide 28 (22-30) mmol/L BUN 11 (7-17) mg/dL Creatinine 0.2 L (0.7-1.2) mg/dL Glucose 108 H (65-100) mg/dL Calcium 8.3 L (8.4-10.2) mg/dL Adrenal panel 05/20/18 Range/Units 06:25 Sodium 135 L (137-145) mmol/L Potassium 4.2 (3.6-5.0) mmol/L Chloride 100.8 (98-107) mmol/L Carbon Dioxide 28 (22-30) mmol/L BUN 11 (7-17) mg/dL Creatinine 0.2 L (0.7-1.2) mg/dL Glucose 108 H (65-100) mg/dL Calcium 8.3 L (8.4-10.2) mg/dL Total Bilirubin 0.70 (0.1-1.2) mg/dL AST 29 (5-40) units/L ALT 32 (7-56) units/L Alkaline Phosphatase 91 (35-129) units/L Total Protein 5.6 L (6.3-8.2) g/dL Albumin 2.9 L (3.9-5) g/dL
--- NOTE | 2018-05-20 16:30 | Progress Note ---
Assessment and Plan Assessment and plan: The patient is a 57-year-old female with hypertension, neurofibromatosis, hepatitis C, COPD, nicotine dependence presented to the emergency room on 04/18/18 with complaints of abdominal pain going on for [address] scan obtained in the emergency room revealed a ruptured appendix with associated intra-abdominal abscess. General surgery was consulted and the patient underwent an emergent exploratory laparotomy with evacuation of pelvic abscess. She was noted to have a gangrenous, perforated appendix eroding including into the small bowel. As per the op note, the abscess could not be drained as the entire abscess and inflammatory process had trapped the small bowel, which was mobilized and she underwent an ileocolic anastomosis. The patient went back to the OR on 04/25/18 for drain dislodgment. Surgical cultures growing ECOLI and beta hemolytic strep group C, ester albicans and enteroccocus faecium Per surgery considering plan to transfer to LTAC If this is the case, there are a lot of care issues to keep in mind * pt must continue on current TPN regimen and sandostatin * Continue local wd care * If pt begins experiencing RLQ abd pain, Drain must be re-placed on low continues suction * repeat CT of abd & pelvis with PO contrast to be scheduled for Friday * Pt needs to remain NPO except for ice chips, meds and popsicles until the results of her CT on Friday * Pt may have retention sutures removed after Friday * CT abdome: 05/18/18- Still shows minimal drainage, per surgery will repeat in a week * Insurance denies LTAC, recommends SNF. Both surgeon and Patient believe SNF is the wrong place Sepsis Etiology secondary to gangrenous and perforated appendix causing intra- abdominal/pelvic abscess. Patient is status post exploratory laparotomy with appendectomy and evacuation of pelvic abscess. Now off antibiotics and noted ID signed off. No fever off antibiotics. Hypotension with low grade temp BP better, no growth on culture, no Urology consult noted due to concern for entro-vesico fistula due to color of urine looking like stool Perforated appendix s/p exploratory lap Cont. TPN -Likely correction Dislodged drain, s/p taken to OR , exploratory lap, irrigation of intraabd cavity and placement of sump drain on 04/25 Draining tube was placed back on drainage due to nursing noting some drainage around there the site surgery evaluated and will do CT abdomen in the morning OOB as tiffanie Chronic hep C. Untreated. Outpatient follow-up. Accel Hypertension. Increase Cozaar to 100mg. Cont. Hydralazine prn. Diarrhea: start on lmodium prn x 1 today Tachycardia: secondary to dehydration and deconditioning. Fluids to be given and also start Low dose BB. COPD. Compensated. Neurofibromatosis: Tobacco abuse. Patient counseled on smoking cessation FOR 15 MINS, Patient verbalized understanding and will think about it. Disposition - when cleared by surgery History Interval history: Patient seen and examined this am with nursing staff. reports diarrhea Hospitalist Physical - Physical exam Narrative exam: VITAL SIGNS: Reviewed. GENERAL: The patient appeared well nourished and normally developed. CACHETIC. Vital signs as documented. Temporal wasting noted HEAD: No signs of head trauma. EYES: Pupils are equal. Extraocular motions intact. EARS: Hearing grossly intact. MOUTH: Oropharynx is normal. NECK: No adenopathy, no JVD. CHEST: Chest with clear breath sounds bilaterally. No wheezes, rales, or rhon chi. CARDIAC: Regular rate and rhythm. S1 and S2, without murmurs, gallops, or rubs . VASCULAR: No Edema. Peripheral pulses normal and equal in all extremities. ABDOMEN: Soft, midly distended, some tenderness. bilateral drain noted. hypoactive BS No rebound or guarding, and no masses palpated. MUSCULOSKELETAL: Good range of motion of all major joints. Extremities without clubbing, cyanosis or edema. NEUROLOGIC EXAM: Alert and oriented x 3. No focal sensory or strength deficits. Speech normal. Follows commands. PSYCHIATRIC: Mood normal. SKIN: neurofibromatosis lesions on face - Constitutional Vitals: Temp Pulse Resp BP Pulse Ox 98.1 F 116 H 20 139/73 96 05/20/18 15:51 05/20/18 09:23 05/20/18 15:54 05/20/18 09:23 05/20/18 05:12 General appearance: Present: no acute distress, cachectic, other (temporal wasting scaphoid abdomen.) Results - Labs CBC & Chem 7: 05/14/18 06:40 05/20/18 06:25 Labs: Laboratory Last Values WBC 4.5 K/mm3 (4.5-11.0) 05/14/18 06:40 RBC 3.48 M/mm3 (3.65-5.03) L 05/14/18 06:40 Hgb 9.8 gm/dl (10.1-14.3) L 05/14/18 06:40 Hct 29.1 % (30.3-42.9) L 05/14/18 06:40 MCV 83 fl (79-97) 05/14/18 06:40 MCH 28 pg (28-32) 05/14/18 06:40 MCHC 34 % (30-34) 05/14/18 06:40 RDW 15.6 % (13.2-15.2) H 05/14/18 06:40 Plt Count 163 K/mm3 (140-440) 05/14/18 06:40 Lymph % (Auto) 29.1 % (13.4-35.0) 05/08/18 05:38 [place] % (Auto) 7.7 % (0.0-7.3) H 05/08/18 05:38 Eos % (Auto) 3.2 % (0.0-4.3) 05/08/18 05:38 Baso % (Auto) 1.1 % (0.0-1.8) 05/08/18 05:38 Lymph # 1.4 K/mm3 (1.2-5.4) 05/08/18 05:38 [place] # 0.4 K/mm3 (0.0-0.8) 05/08/18 05:38 Eos # 0.2 K/mm3 (0.0-0.4) 05/08/18 05:38 Baso # 0.1 K/mm3 (0.0-0.1) 05/08/18 05:38 Add Manual Diff Complete 04/30/18 05:41 Total Counted 100 04/30/18 05:41 Seg Neutrophils % 58.9 % (40.0-70.0) 05/08/18 05:38 Seg Neuts % (Manual) 88.0 % (40.0-70.0) H 04/30/18 05:41 Band Neutrophils % 1.0 % 04/30/18 05:41 Lymphocytes % (Manual) 8.0 % (13.4-35.0) L 04/30/18 05:41 Reactive Lymphs % (Man) 0 % 04/30/18 05:41 Monocytes % (Manual) 3.0 % (0.0-7.3) 04/30/18 05:41 Eosinophils % (Manual) 0 % (0.0-4.3) 04/30/18 05:41 Basophils % (Manual) 0 % (0.0-1.8) 04/30/18 05:41 Metamyelocytes % 0 % 04/30/18 05:41 Myelocytes % 0 % 04/30/18 05:41 Promyelocytes % 0 % 04/30/18 05:41 Blast Cells % 0 % 04/30/18 05:41 Nucleated RBC % Not Reportable 04/30/18 05:41 Seg Neutrophils # 2.9 K/mm3 (1.8-7.7) 05/08/18 05:38 Seg Neutrophils # Man 7.7 K/mm3 (1.8-7.7) 04/30/18 05:41 Band Neutrophils # 0.1 K/mm3 04/30/18 05:41 Lymphocytes # (Manual) 0.7 K/mm3 (1.2-5.4) L 04/30/18 05:41 Abs React Lymphs (Man) 0.0 K/mm3 04/30/18 05:41 Monocytes # (Manual) 0.3 K/mm3 (0.0-0.8) 04/30/18 05:41 Eosinophils # (Manual) 0.0 K/mm3 (0.0-0.4) 04/30/18 05:41 Basophils # (Manual) 0.0 K/mm3 (0.0-0.1) 04/30/18 05:41 Metamyelocytes # 0.0 K/mm3 04/30/18 05:41 Myelocytes # 0.0 K/mm3 04/30/18 05:41 Promyelocytes # 0.0 K/mm3 04/30/18 05:41 Blast Cells # 0.0 K/mm3 04/30/18 05:41 WBC Morphology Not Reportable 04/30/18 05:41 Hypersegmented Neuts Not Reportable 04/30/18 05:41 Hyposegmented Neuts Not Reportable 04/30/18 05:41 Hypogranular Neuts Not Reportable 04/30/18 05:41 Smudge Cells Not Reportable 04/30/18 05:41 Toxic Granulation Not Reportable 04/30/18 05:41 Toxic Vacuolation Not Reportable 04/30/18 05:41 Dohle Bodies Not Reportable 04/30/18 05:41 Pelger-Huet Anomaly Not Reportable 04/30/18 05:41 Nicole Rods Not Reportable 04/30/18 05:41 Platelet Estimate Appears normal 04/30/18 05:41 Clumped Platelets Not Reportable 04/30/18 05:41 Plt Clumps, EDTA Not Reportable 04/30/18 05:41 Large Platelets Not Reportable 04/30/18 05:41 Giant Platelets Not Reportable 04/30/18 05:41 Platelet Satelliting Not Reportable 04/30/18 05:41 Plt Morphology Comment Not Reportable 04/30/18 05:41 RBC Morphology Not Reportable 04/30/18 05:41 Dimorphic RBCs Not Reportable 04/30/18 05:41 Polychromasia Not Reportable 04/30/18 05:41 Hypochromasia 1+ 04/30/18 05:41 Poikilocytosis Not Reportable 04/30/18 05:41 Anisocytosis 1+ 04/30/18 05:41 Microcytosis Not Reportable 04/30/18 05:41 Macrocytosis Not Reportable 04/30/18 05:41 Spherocytes Not Reportable 04/30/18 05:41 Pappenheimer Bodies Not Reportable 04/30/18 05:41 Sickle Cells Not Reportable 04/30/18 05:41 Target Cells Not Reportable 04/30/18 05:41 Tear Drop Cells Not Reportable 04/30/18 05:41 Ovalocytes Few 04/30/18 05:41 Stomatocytes Few 04/29/18 05:18 Helmet Cells Not Reportable 04/30/18 05:41 [place] Bodies Not Reportable 04/30/18 05:41 [place] Rings Not Reportable 04/30/18 05:41 [place] Cells Not Reportable 04/30/18 05:41 Bite Cells Not Reportable 04/30/18 05:41 Crenated Cell Not Reportable 04/30/18 05:41 Elliptocytes Not Reportable 04/30/18 05:41 Acanthocytes (Spur) Not Reportable 04/30/18 05:41 Rouleaux Not Reportable 04/30/18 05:41 Hemoglobin C Crystals Not Reportable 04/30/18 05:41 Schistocytes Not Reportable 04/30/18 05:41 Malaria parasites Not Reportable 04/30/18 05:41 Hung Bodies Not Reportable 04/30/18 05:41 Hem Pathologist Commnt No 04/30/18 05:41 PT 15.3 Sec. (12.2-14.9) H 04/22/18 05:19 INR 1.17 (0.87-1.13) H 04/22/18 05:19 APTT 29.4 Sec. (24.2-36.6) 04/19/18 05:19 POC ABG pH 7.367 (7.35-7.45) 04/19/18 00:19 POC ABG pCO2 36.8 (35-45) 04/19/18 00:19 POC ABG pO2 84 (80-105) 04/19/18 00:19 POC ABG HCO3 21.1 04/19/18 00:19 POC ABG Total CO2 22 04/19/18 00:19 POC ABG O2 Sat 96 04/19/18 00:19 POC ABG Base Excess -4 04/19/18 00:19 VBG pH 7.439 (7.320-7.420) H 04/18/18 14:30 FiO2 32 % 04/19/18 00:19 Sodium 135 mmol/L (137-145) L 05/20/18 06:25 Potassium 4.2 mmol/L (3.6-5.0) 05/20/18 06:25 Chloride 100.8 mmol/L (98-107) 05/20/18 06:25 Carbon Dioxide 28 mmol/L (22-30) 05/20/18 06:25 Anion Gap 10 mmol/L 05/20/18 06:25 BUN 11 mg/dL (7-17) 05/20/18 06:25 Creatinine 0.2 mg/dL (0.7-1.2) L 05/20/18 06:25 Estimated GFR > 60 ml/min 05/20/18 06:25 BUN/Creatinine Ratio 55 % 05/20/18 06:25 Glucose 108 mg/dL (65-100) H 05/20/18 06:25 POC Glucose 128 (70-105) H 05/17/18 05:06 Lactic Acid 1.20 mmol/L (0.7-2.0) 05/19/18 10:27 Calcium 8.3 mg/dL (8.4-10.2) L 05/20/18 06:25 Phosphorus 3.30 mg/dL (2.5-4.5) D 05/20/18 06:25 Magnesium 1.70 mg/dL (1.7-2.3) 05/20/18 06:25 Total Bilirubin 0.70 mg/dL (0.1-1.2) 05/20/18 06:25 AST 29 units/L (5-40) 05/20/18 06:25 ALT 32 units/L (7-56) 05/20/18 06:25 Alkaline Phosphatase 91 units/L (35-129) 05/20/18 06:25 Total Protein 5.6 g/dL (6.3-8.2) L 05/20/18 06:25 Albumin 2.9 g/dL (3.9-5) L 05/20/18 06:25 Albumin/Globulin Ratio 1.1 % 05/20/18 06:25 Prealbumin 0.113 g/L (0.200-0.400) L 05/20/18 06:25 Triglycerides 113 mg/dL (2-149) 05/13/18 Unknown Urine Color Yellow (Yellow) 04/20/18 13:35 Urine Turbidity Clear (Clear) 04/20/18 13:35 Urine pH 5.0 (5.0-7.0) 04/20/18 13:35 Ur Specific [place] 1.011 (1.003-1.030) 04/20/18 13:35 Urine Protein <15 mg/dl mg/dL (Negative) 04/20/18 13:35 Urine Glucose (UA) Neg mg/dL (Negative) 04/20/18 13:35 Urine Ketones 20 mg/dL (Negative) 04/20/18 13:35 Urine Blood Sm (Negative) 04/20/18 13:35 Urine Nitrite Neg (Negative) 04/20/18 13:35 Urine Bilirubin Neg (Negative) 04/20/18 13:35 Urine Urobilinogen 2.0 mg/dL (<2.0) 04/20/18 13:35 Ur Leukocyte Esterase Tr (Negative) 04/20/18 13:35 Urine WBC (Auto) 2.0 /HPF (0.0-6.0) 04/20/18 13:35 Urine RBC (Auto) 1.0 /HPF (0.0-6.0) 04/20/18 13:35 U Epithel Cells (Auto) 2.0 /HPF (0-13.0) 04/18/18 16:45 Urine Bacteria (Auto) 2+ /HPF (Negative) 04/18/18 16:45 Urine Mucus Few /HPF 04/20/18 13:35 Blood Type O POSITIVE 04/19/18 13:05 Antibody Screen Negative 04/19/18 13:05 Crossmatch See Detail 04/19/18 13:05 Nutrition/Malnutrition Assess - Dietary Evaluation Nutrition/Malnutrition Findings: Nutrition Notes Start: 04/24/18 09:13 Freq: Status: Active Protocol: Document 05/20/18 10:49 TW (Rec: 05/20/18 10:58 TW [email or web address]) Co-Sign 05/20/18 10:49 LP Nutrition Notes Initial or Follow up Reassessment Other Pertinent Diagnosis Perforated appendix s/p exp lap, Hep C Current Diet TPN at 75ml/hr Labs/Tests Na 136 M.7 Pertinent Medications Reviewed. Height 5 ft 1 in Weight 40.4 kg [place] Body Weight (kg) 47.72 BMI 16.8 Subjective/Other Information Day 24 TPN. Observed TPN running at goal rate. Percent of energy/protein needs met: 100% energy and pro Burn Absent Trauma Absent #2 Nutrition Diagnosis Increased nutrient needs ( specify in comment below) Diagnosis Progress(for reassessment Continues documentation) #1 Nutrition Diagnosis Inadequate oral intake Diagnosis Progress(for reassessment Continues documentation) Is patient on ventilator? No Is Patient Ambulatory and/or Out of Bed Yes REE-([facility]-ambulatory/OOB) [ 1210.794 [id number]] Kcal/Kg value to use for calculation 40 Approximate Energy Requirements Using 1616 kcal/Kg Calculation Used for Recommendations Kcal/kg Additional Notes Pro needs 1.25-1.5g/k-61g /day Fluid needs 1ml/kcal Nutrition Intervention Nutrition Support: Continue TPN at 75 ml/hr: MVI, lipids 20 mmol Phos, 16mEq Mg . Osmolality: 1697. Kcal 1,815 Protein (gm) 95 Carbohydrates (gm) 275 Fat (gm) 50 Fluid (mL) 2,050 Fiber (gm) 0 Goal #1 CPN to meet 90-100% energy and pro needs Goal #2 Wt gain/maintenance Follow-Up By: 05/21/18 Additional Comments Labs in am: BMP, Mg, Odilia - Attestation Statement I have reviewed and agreed w/ Malnutrition eval & tx plan: Yes
--- NOTE | 2018-05-20 17:04 | Consultation ---
History of Present Illness - Reason for Consult Consult date: 05/20/18 - History of Present Illness 57 YO Female with HTN, Neurofibromatosis, HCV, COPD, Nicotine Dependence presents to ED for evaluation. Pt states that she has experienced abdominal pain over the past 3 days. Pt states that pain is 10/10, constant, worsened with movement, decreased mildly with nonmovement. Pt acknowledges fever, nausea, multiple episodes of vomiting, inabililty to tolerate oral intake. Pt states that symptoms have progressively worsened over the past 2 days. EMS notified, and upon arrival the patient was found to be in distress. Pt transported to [facility] for further care and evaluation. Pt seen and evaluated in ED and found to have sepsis, suspected secondary to Ruptured Appendicitis complicated by an int raabdominal abscess. Surgery consulted, as well as [employer] service. Pt initiated on Sepsis protocol, and admitted to ICU. Pt pending surgical intervention. Primary care Physician: Dr. Navin Fagan nurse at bedside ALISSA in past voided today brownish color (?concern for fistula) most recent void ----clear (cher) suprapubic area mild tender from recent surgery A/P status post exploratory laparotomy with appendectomy and evacuation of pelvic abscess (Dr. Shelton) ?fistula pt refused gold and static cystogram will sign off Past History Past Medical History: COPD, hypertension, other (Liver Disease) Past Surgical History: Other (Partial Hysterectomy) Social history: lives with family Family history: hypertension Medications and Allergies Allergies Allergy/AdvReac Type Severity Reaction Status Date / Time NSAIDS (Non-Steroidal Allergy Unknown Verified 04/08/18 03:20 Anti-Inflamma Home Medications Medication Instructions Recorded Confirmed Last Taken Type Citalopram Hydrobromide 40 mg PO QDAY 07/31/17 04/19/18 04/15/18 History [Citalopram HBr] Gabapentin [Neurontin] 800 mg PO 5XD 07/31/17 04/19/18 04/15/18 History Losartan 50 mg PO QDAY 07/31/17 04/19/18 04/15/18 History Tizanidine HCl [Zanaflex] 2 mg PO QDAY 07/31/17 04/19/18 04/15/18 History busPIRone [Buspar] 5 mg PO BID 07/31/17 04/19/18 04/15/18 History Ciprofloxacin HCl [Ciprofloxacin 500 mg PO Q12HR #10 tab 05/25/18 02/10/19 02/06/19 Rx TAB] Active Meds: Active Medications Acetaminophen (Tylenol) 650 mg SD Q4H PRN PRN Reason: Fever >101 Last Admin: 05/20/18 12:41 Dose: 650 mg Documented by: Albuterol (Proventil) 2.5 mg IH Q3HRT PRN PRN Reason: Shortness Of Breath Last Admin: 05/03/18 15:15 Dose: 2.5 mg Documented by: Alprazolam (Xanax) 0.5 mg PO Q8H PRN PRN Reason: Anxiety Last Admin: 05/20/18 01:16 Dose: 0.5 mg Documented by: Arformoterol Tartrate (Brovana Nebu) 15 mcg IH Q12HRT [facility] Last Admin: 05/20/18 08:49 Dose: 15 mcg Documented by: Benzocaine/Menthol (Cepacol X Strength) 1 each MM Q2HR PRN PRN Reason: Sore Throat Budesonide (Pulmicort) 0.5 mg IH Q12HRT [facility] Last Admin: 05/20/18 08:49 Dose: 0.5 mg Documented by: Fentanyl (Duragesic) 25 mcg TD Q3D [facility] Last Admin: 05/20/18 10:55 Dose: 25 mcg Documented by: Gabapentin (Neurontin) 800 mg PO TID [facility] Last Admin: 05/20/18 13:12 Dose: 800 mg Documented by: Hydralazine HCl (Apresoline) 10 mg IV Q4HR PRN PRN Reason: SBP >160 Last Admin: 05/07/18 05:50 Dose: 10 mg Documented by: Hydromorphone HCl (Dilaudid) 0.5 mg IV Q4H PRN PRN Reason: Pain , Severe (7-10) Last Admin: 05/20/18 15:54 Dose: 0.5 mg Documented by: Amino Acids/Electrolytes/Dextrose (Tpn Adult) 1,800 mls @ 75 mls/hr IV DAILY@1999 [facility]; Protocol Stop: 05/20/18 19:59 Last Admin: 05/19/18 21:13 Dose: 75 mls/hr Documented by: Fat Emulsion Intravenous (Intralipid 20%) 250 mls @ 21 mls/hr IV DAILY@1999 [facility] Stop: 05/21/18 08:00 Amino Acids/Electrolytes/Dextrose (Tpn Adult) 1,800 mls @ 75 mls/hr IV DAILY@1999 [facility]; Protocol Stop: 05/21/18 19:59 Labetalol HCl (Normodyne) 10 mg IV Q6H PRN PRN Reason: systolic BP greater than 175 Loperamide HCl (Imodium) 2 mg PO Q2H PRN PRN Reason: Diarrhea Last Admin: 05/17/18 17:11 Dose: 2 mg Documented by: Losartan Potassium (Cozaar) 100 mg PO QDAY [facility] Last Admin: 05/20/18 09:23 Dose: 100 mg Documented by: Metoprolol Tartrate (Lopressor) 12.5 mg PO BID [facility] Last Admin: 05/20/18 09:23 Dose: 12.5 mg Documented by: Mirtazapine (Remeron) 15 mg PO QHS [facility] Last Admin: 05/19/18 21:14 Dose: 15 mg Documented by: Octreotide Acetate (Sandostatin) 100 mcg SUB-Q Q8HR [facility] Last Admin: 05/20/18 13:12 Dose: Not Given Documented by: Exam - Constitutional Vitals: Temp Pulse Resp BP Pulse Ox 98.1 F 116 H 20 139/73 96 05/20/18 15:51 05/20/18 09:23 05/20/18 15:54 05/20/18 09:23 05/20/18 05:12 Results - Labs CBC & Chem 7: 05/14/18 06:40 05/20/18 06:25 Labs: Abnormal lab results 05/20/18 Range/Units 06:25 Sodium 135 L (137-145) mmol/L Creatinine 0.2 L (0.7-1.2) mg/dL Glucose 108 H (65-100) mg/dL Calcium 8.3 L (8.4-10.2) mg/dL Total Protein 5.6 L (6.3-8.2) g/dL Albumin 2.9 L (3.9-5) g/dL Prealbumin 0.113 L (0.200-0.400) g/L
[2018-05-20] MEDS ORDERED: INTRALIPID 20% 250 ML IV SCH (20:00)
[2018-05-20] MEDS ORDERED: TPN ADULT 1,800 ML IV SCH (20:00)
[2018-05-20] MEDS: REMERON PO SCH (21:55)
[2018-05-21] MEDS: DILAUDID IV PRN ×4 (01:39→21:22)
[2018-05-21 05:22] LABS: BUN/Creatinine Ratio 55; Blood Urea Nitrogen 11 mg/dL (7-17); Calcium 8.2 mg/dL (8.4-10.2); Hemolysis Index 2
[2018-05-21 07:27] LABS: Basophils % (Auto) 0.4 % (0.0-1.8); Eosinophils # (Auto) 0.1 K/mm3 (0.0-0.4); Eosinophils % (Auto) 1.3 % (0.0-4.3); Hemoglobin 9.2 gm/dl (10.1-14.3); Lymphocytes # (Auto) 1.3 K/mm3 (1.2-5.4); Lymphocytes % (Auto) 25.6 % (13.4-35.0); Mean Corpuscular HGB Conc 33 % (30-34); Mean Corpuscular Volume 82 fl (79-97); Monocytes # (Auto) 0.5 K/mm3 (0.0-0.8); Monocytes % (Auto) 10.3 % (0.0-7.3); Platelet Count 170 K/mm3 (140-440); Red Cell Distribution Width 16.2 % (13.2-15.2)
--- NOTE | 2018-05-21 07:54 | Progress Note ---
Assessment and Plan Pt status quo. no compl. Abd soft. Pt had initially refused cysto but now states willing to proceed recontact Dr. Evans retention sutures removed awaiting cysto results continue present care Selected Entries 05/21/18 07:15 Temperature 98.6 F Pulse Rate 108 H Respiratory 20 Rate Blood Pressure 112/62 [Left] Laboratory Tests 05/21/18 05/21/18 04:40 07:20 WBC 5.1 Hgb 9.2 L Hct 28.0 L Sodium 135 L Potassium 3.7 Chloride 100.6 BUN 11 Creatinine < 0.2 L Objective Vital Signs - 12hr 05/20/18 05/20/18 05/20/18 20:43 20:48 21:03 Temperature Pulse Rate Pulse Rate [ 115 H 116 H Anterior Bilateral Throughout] Respiratory Rate Respiratory 14 16 Rate [Anterior Bilateral Throughout] Blood Pressure Blood Pressure [Left] Blood Pressure [Right] O2 Sat by Pulse 97 Oximetry 05/20/18 05/20/18 05/20/18 21:43 21:55 23:49 Temperature 98.2 F 99.0 F Pulse Rate 94 H 94 H 120 H Pulse Rate [ Anterior Bilateral Throughout] Respiratory 16 18 Rate Respiratory Rate [Anterior Bilateral Throughout] Blood Pressure 155/72 110/61 Blood Pressure 155/72 [Left] Blood Pressure 155/72 [Right] O2 Sat by Pulse 97 98 Oximetry 05/21/18 05/21/18 05/21/18 04:07 07:11 07:15 Temperature 98.1 F 98.6 F 98.6 F Pulse Rate 106 H 108 H Pulse Rate [ Anterior Bilateral Throughout] Respiratory 18 18 20 Rate Respiratory Rate [Anterior Bilateral Throughout] Blood Pressure 115/65 112/62 Blood Pressure 112/62 [Left] Blood Pressure [Right] O2 Sat by Pulse 97 95 Oximetry - Labs 05/21/18 07:20 05/21/18 04:40 Diabetes panel 05/21/18 Range/Units 04:40 Sodium 135 L (137-145) mmol/L Potassium 3.7 (3.6-5.0) mmol/L Chloride 100.6 (98-107) mmol/L Carbon Dioxide 26 (22-30) mmol/L BUN 11 (7-17) mg/dL Creatinine < 0.2 L (0.7-1.2) mg/dL Glucose 93 (65-100) mg/dL Calcium 8.2 L (8.4-10.2) mg/dL Calcium panel 05/21/18 Range/Units 04:40 Calcium 8.2 L (8.4-10.2) mg/dL Phosphorus 3.30 (2.5-4.5) mg/dL Pituitary panel 05/21/18 Range/Units 04:40 Sodium 135 L (137-145) mmol/L Potassium 3.7 (3.6-5.0) mmol/L Chloride 100.6 (98-107) mmol/L Carbon Dioxide 26 (22-30) mmol/L BUN 11 (7-17) mg/dL Creatinine < 0.2 L (0.7-1.2) mg/dL Glucose 93 (65-100) mg/dL Calcium 8.2 L (8.4-10.2) mg/dL Adrenal panel 05/21/18 Range/Units 04:40 Sodium 135 L (137-145) mmol/L Potassium 3.7 (3.6-5.0) mmol/L Chloride 100.6 (98-107) mmol/L Carbon Dioxide 26 (22-30) mmol/L BUN 11 (7-17) mg/dL Creatinine < 0.2 L (0.7-1.2) mg/dL Glucose 93 (65-100) mg/dL Calcium 8.2 L (8.4-10.2) mg/dL
[2018-05-21] MEDS: BROVANA NEBU IH SCH (09:34)
[2018-05-21] MEDS: PULMICORT IH SCH (09:34)
--- NOTE | 2018-05-21 09:47 | Progress Note ---
Assessment and Plan Sepsis. Etiology secondary to gangrenous and perforated appendix causing intra- abdominal/pelvic abscess( resolved). status post exploratory laparotomy with appendectomy and evacuation of pelvic abscess. Intrabdominal sepsis/peritonitis Ruptured appendix with abdominal abscess Tobacco abuse disorder COPD, probable Neurofibromatosis - continue supplemental oxygen to keep O2 sats 88-90% - continue bronchodilators with pulmonary hygiene per RT - abdominal drain to suction (adjust per surgeon) - VTE prophylaxis - PT/OT/Mobility, OOB to chair daily, increase activity - continue incentive spirometry - continue nicotine withdrawal precautions - Smoking cessation counselling was done at the bedside(ongoing) - Analgesia, pain management -Continue all supportive care -Discharge planning Subjective Date of service: 05/21/18 Principal diagnosis: Sepsis; Ex-lap appendectomy and evacuation of pelvic abscess; Peritonitis Interval history: Patient is seen today for: Sepsis; status post exploratory laparotomy with appendectomy and evacuation of pelvic abscess; Intrabdominal sepsis/peritonitis; Ruptured appendix with abdominal abscess Seen and examined at bedside; 24hour events reviewed; nursing and respiratory care staff consulted; no adverse overnight events reported to me; resting peacefully in bed; feels better; denies acute chest pains or palpitations; no N/V/F/C Objective Vital Signs - 12hr 05/20/18 05/20/18 05/21/18 21:55 23:49 04:07 Temperature 99.0 F 98.1 F Pulse Rate 94 H 120 H 106 H Pulse Rate [ Anterior Bilateral Throughout] Respiratory 18 18 Rate Respiratory Rate [Anterior Bilateral Throughout] Blood Pressure 155/72 110/61 115/65 Blood Pressure [Left] O2 Sat by Pulse 98 97 Oximetry 05/21/18 05/21/18 05/21/18 07:11 07:15 09:30 Temperature 98.6 F 98.6 F Pulse Rate 108 H Pulse Rate [ 106 H Anterior Bilateral Throughout] Respiratory 18 20 Rate Respiratory 16 Rate [Anterior Bilateral Throughout] Blood Pressure 112/62 Blood Pressure 112/62 [Left] O2 Sat by Pulse 95 Oximetry Constitutional: no acute distress, alert, other (chronically ill looking this middle aged CF, normocephalic) Eyes: non-icteric ENT: oropharynx moist, other (Mallampati 2) Neck: supple, no lymphadenopathy, no JVD Effort: mildly labored Ascultation: Bilateral: diminished breath sounds, rhonchi (scant in bases) Percussion: Bilateral: not dull Cardiovascular: regular rate and rhythm Gastrointestinal: normoactive bowel sounds, soft, tender (bhargav-op site), non- distended, other (Drain in place with non-bloody effluent) Integumentary: other (poor turgor; ? neurofibromatous nodules over body) Extremities: no cyanosis, no edema, pink and warm, pulses normal Neurologic: normal mental status, non-focal exam, pupils equal and round, motor strength normal and Psychiatric: mood appropriate, anxious CBC and BMP: 05/21/18 07:20 05/21/18 04:40 ABG, PT/INR, D-dimer: ABG POC ABG pH 7.367 (7.35-7.45) 04/19/18 00:19 POC ABG pCO2 36.8 (35-45) 04/19/18 00:19 POC ABG pO2 84 (80-105) 04/19/18 00:19 POC ABG HCO3 21.1 04/19/18 00:19 POC ABG Total CO2 22 04/19/18 00:19 POC ABG O2 Sat 96 04/19/18 00:19 PT/INR, D-dimer PT 15.3 Sec. (12.2-14.9) H 04/22/18 05:19 INR 1.17 (0.87-1.13) H 04/22/18 05:19 Abnormal lab findings: Abnormal Labs 04/18/18 04/18/18 04/18/18 14:30 14:30 14:30 WBC 18.6 H RBC Hgb Hct MCH RDW Lymph % (Auto) Porter % (Auto) Lymph # Seg Neutrophils % Seg Neuts % (Manual) 79.0 H Lymphocytes % (Manual) 4.0 L Seg Neutrophils # Man 14.7 H Lymphocytes # (Manual) 0.7 L PT 16.3 H INR 1.27 H VBG pH Sodium 121 L Potassium 3.0 L Chloride 78.0 L Carbon Dioxide BUN Creatinine 0.5 L Glucose 110 H POC Glucose Lactic Acid Calcium Phosphorus Magnesium Total Bilirubin 1.30 H AST 42 H Total Protein Albumin 3.1 L Prealbumin Crossmatch 04/18/18 04/18/18 04/18/18 14:30 14:30 23:59 WBC RBC Hgb Hct MCH RDW 15.8 H Lymph % (Auto) Porter % (Auto) Lymph # Seg Neutrophils % Seg Neuts % (Manual) 78.0 H Lymphocytes % (Manual) 6.0 L Seg Neutrophils # Man Lymphocytes # (Manual) 0.5 L PT INR VBG pH 7.439 H Sodium Potassium Chloride Carbon Dioxide BUN Creatinine Glucose POC Glucose Lactic Acid 3.60 H* Calcium Phosphorus Magnesium Total Bilirubin AST Total Protein Albumin Prealbumin Crossmatch 04/18/18 04/19/18 04/19/18 23:59 05:19 05:19 WBC 15.0 H RBC Hgb Hct MCH RDW 15.3 H Lymph % (Auto) Porter % (Auto) Lymph # Seg Neutrophils % Seg Neuts % (Manual) Lymphocytes % (Manual) 5.0 L Seg Neutrophils # Man 8.3 H Lymphocytes # (Manual) 0.8 L PT INR VBG pH Sodium 130 L D 133 L Potassium 3.5 L 3.3 L Chloride Carbon Dioxide 20 L D BUN Creatinine 0.5 L 0.6 L Glucose 140 H 115 H POC Glucose Lactic Acid Calcium 7.5 L 7.4 L Phosphorus Magnesium Total Bilirubin AST Total Protein 4.4 L D 4.1 L Albumin 2.0 L 1.9 L Prealbumin Crossmatch 04/19/18 04/19/18 04/20/18 05:19 13:05 05:18 WBC RBC Hgb Hct MCH RDW Lymph % (Auto) Porter % (Auto) Lymph # Seg Neutrophils % Seg Neuts % (Manual) Lymphocytes % (Manual) Seg Neutrophils # Man Lymphocytes # (Manual) PT 19.4 H 17.4 H INR 1.59 H 1.38 H VBG pH Sodium Potassium Chloride Carbon Dioxide BUN Creatinine Glucose POC Glucose Lactic Acid Calcium Phosphorus Magnesium Total Bilirubin AST Total Protein Albumin Prealbumin Crossmatch See Detail 04/20/18 04/20/18 04/21/18 13:47 13:47 04:52 WBC RBC 3.29 L 3.10 L Hgb 9.6 L 8.8 L Hct 28.1 L D 26.6 L MCH RDW 15.3 H 15.4 H Lymph % (Auto) 5.6 L Porter % (Auto) Lymph # 0.4 L Seg Neutrophils % 87.3 H Seg Neuts % (Manual) Lymphocytes % (Manual) Seg Neutrophils # Man Lymphocytes # (Manual) PT INR VBG pH Sodium Potassium Chloride Carbon Dioxide BUN Creatinine 0.3 L Glucose 102 H POC Glucose Lactic Acid Calcium 8.0 L Phosphorus Magnesium Total Bilirubin AST Total Protein Albumin Prealbumin Crossmatch 04/21/18 04/22/18 04/22/18 04:52 05:19 05:19 WBC RBC 3.64 L Hgb Hct MCH RDW Lymph % (Auto) 8.5 L Porter % (Auto) 9.9 H Lymph # 0.6 L Seg Neutrophils % 81.0 H Seg Neuts % (Manual) Lymphocytes % (Manual) Seg Neutrophils # Man Lymphocytes # (Manual) PT 15.3 H INR 1.17 H VBG pH Sodium Potassium 3.2 L Chloride Carbon Dioxide BUN Creatinine 0.3 L Glucose POC Glucose Lactic Acid Calcium 7.6 L Phosphorus Magnesium Total Bilirubin AST Total Protein Albumin Prealbumin Crossmatch 04/22/18 04/24/18 04/24/18 05:19 07:19 07:19 WBC RBC Hgb Hct MCH RDW Lymph % (Auto) Porter % (Auto) Lymph # Seg Neutrophils % Seg Neuts % (Manual) Lymphocytes % (Manual) Seg Neutrophils # Man Lymphocytes # (Manual) PT INR VBG pH Sodium Potassium 3.4 L 2.9 L* Chloride Carbon Dioxide BUN Creatinine 0.3 L 0.3 L Glucose 103 H POC Glucose Lactic Acid Calcium 7.7 L 7.5 L Phosphorus Magnesium 1.60 L Total Bilirubin AST Total Protein 4.3 L Albumin 2.2 L Prealbumin Crossmatch 04/24/18 04/25/18 04/25/18 07:23 06:28 06:28 WBC RBC Hgb Hct MCH RDW 15.3 H 15.9 H Lymph % (Auto) 10.1 L Porter % (Auto) Lymph # 0.8 L Seg Neutrophils % 80.6 H Seg Neuts % (Manual) Lymphocytes % (Manual) 9.0 L Seg Neutrophils # Man Lymphocytes # (Manual) 0.7 L PT INR VBG pH Sodium Potassium 3.0 L Chloride Carbon Dioxide BUN 5 L Creatinine 0.2 L Glucose 108 H POC Glucose Lactic Acid Calcium 7.4 L Phosphorus Magnesium Total Bilirubin AST Total Protein 4.6 L Albumin 2.5 L Prealbumin Crossmatch 04/25/18 04/26/18 04/26/18 06:28 05:45 05:45 WBC 11.9 H RBC Hgb Hct MCH RDW 16.2 H Lymph % (Auto) Porter % (Auto) Lymph # Seg Neutrophils % Seg Neuts % (Manual) Lymphocytes % (Manual) Seg Neutrophils # Man Lymphocytes # (Manual) PT INR VBG pH Sodium Potassium Chloride Carbon Dioxide BUN 5 L Creatinine 0.2 L Glucose 119 H POC Glucose Lactic Acid Calcium 7.7 L Phosphorus 2.00 L 2.20 L Magnesium Total Bilirubin AST Total Protein Albumin Prealbumin Crossmatch 04/27/18 04/28/18 04/28/18 05:33 06:00 06:00 WBC 11.2 H RBC Hgb Hct MCH RDW 16.0 H Lymph % (Auto) Porter % (Auto) Lymph # Seg Neutrophils % Seg Neuts % (Manual) 92.0 H Lymphocytes % (Manual) 5.0 L Seg Neutrophils # Man 10.3 H Lymphocytes # (Manual) 0.6 L PT INR VBG pH Sodium Potassium 3.4 L 3.1 L Chloride Carbon Dioxide BUN 6 L 4 L Creatinine 0.2 L 0.2 L Glucose 119 H POC Glucose Lactic Acid Calcium 7.5 L 7.1 L Phosphorus 2.00 L 2.10 L Magnesium 1.50 L Total Bilirubin AST Total Protein 4.3 L Albumin 2.1 L Prealbumin Crossmatch 04/29/18 04/29/18 04/29/18 05:18 05:18 17:49 WBC 12.0 H RBC Hgb Hct MCH RDW 16.0 H Lymph % (Auto) Porter % (Auto) Lymph # Seg Neutrophils % Seg Neuts % (Manual) 87.0 H Lymphocytes % (Manual) 10.0 L Seg Neutrophils # Man 10.4 H Lymphocytes # (Manual) PT INR VBG pH Sodium 135 L Potassium Chloride Carbon Dioxide BUN Creatinine 0.2 L Glucose 120 H POC Glucose 108 H Lactic Acid Calcium 7.5 L Phosphorus Magnesium Total Bilirubin AST Total Protein Albumin Prealbumin Crossmatch 04/30/18 04/30/18 04/30/18 00:03 05:18 05:41 WBC RBC Hgb Hct MCH RDW Lymph % (Auto) Porter % (Auto) Lymph # Seg Neutrophils % Seg Neuts % (Manual) Lymphocytes % (Manual) Seg Neutrophils # Man Lymphocytes # (Manual) PT INR VBG pH Sodium 133 L Potassium Chloride Carbon Dioxide BUN Creatinine 0.2 L Glucose 119 H POC Glucose 112 H 110 H Lactic Acid Calcium 7.5 L Phosphorus Magnesium Total Bilirubin AST Total Protein Albumin Prealbumin Crossmatch 04/30/18 05/01/18 05/01/18 05:41 00:39 04:45 WBC RBC 3.60 L Hgb Hct MCH RDW 16.0 H Lymph % (Auto) Porter % (Auto) Lymph # Seg Neutrophils % Seg Neuts % (Manual) 88.0 H Lymphocytes % (Manual) 8.0 L Seg Neutrophils # Man Lymphocytes # (Manual) 0.7 L PT INR VBG pH Sodium 132 L Potassium Chloride Carbon Dioxide BUN Creatinine 0.2 L Glucose 101 H POC Glucose 119 H Lactic Acid Calcium 7.6 L Phosphorus Magnesium Total Bilirubin AST Total Protein Albumin Prealbumin Crossmatch 05/01/18 05/01/18 05/01/18 06:30 16:09 23:42 WBC RBC Hgb Hct MCH RDW Lymph % (Auto) Porter % (Auto) Lymph # Seg Neutrophils % Seg Neuts % (Manual) Lymphocytes % (Manual) Seg Neutrophils # Man Lymphocytes # (Manual) PT INR VBG pH Sodium Potassium Chloride Carbon Dioxide BUN Creatinine Glucose POC Glucose 126 H 160 H 113 H Lactic Acid Calcium Phosphorus Magnesium Total Bilirubin AST Total Protein Albumin Prealbumin Crossmatch 05/02/18 05/02/18 05/02/18 04:55 06:41 11:53 WBC RBC Hgb Hct MCH RDW Lymph % (Auto) Porter % (Auto) Lymph # Seg Neutrophils % Seg Neuts % (Manual) Lymphocytes % (Manual) Seg Neutrophils # Man Lymphocytes # (Manual) PT INR VBG pH Sodium 134 L Potassium Chloride Carbon Dioxide BUN Creatinine 0.2 L Glucose 113 H POC Glucose 146 H 113 H Lactic Acid Calcium 7.4 L Phosphorus Magnesium Total Bilirubin AST Total Protein Albumin Prealbumin Crossmatch 05/02/18 05/02/18 05/03/18 17:33 23:37 08:46 WBC RBC 3.36 L Hgb 9.7 L Hct 28.7 L MCH RDW 16.3 H Lymph % (Auto) Porter % (Auto) 10.0 H Lymph # Seg Neutrophils % Seg Neuts % (Manual) Lymphocytes % (Manual) Seg Neutrophils # Man Lymphocytes # (Manual) PT INR VBG pH Sodium Potassium Chloride Carbon Dioxide BUN Creatinine Glucose POC Glucose 106 H 123 H Lactic Acid Calcium Phosphorus Magnesium Total Bilirubin AST Total Protein Albumin Prealbumin Crossmatch 05/03/18 05/03/18 05/04/18 11:54 12:15 06:59 WBC RBC Hgb Hct MCH RDW Lymph % (Auto) Porter % (Auto) Lymph # Seg Neutrophils % Seg Neuts % (Manual) Lymphocytes % (Manual) Seg Neutrophils # Man Lymphocytes # (Manual) PT INR VBG pH Sodium 136 L Potassium Chloride Carbon Dioxide BUN Creatinine 0.2 L Glucose 131 H POC Glucose 109 H 161 H Lactic Acid Calcium 7.6 L Phosphorus Magnesium Total Bilirubin AST Total Protein Albumin Prealbumin Crossmatch 05/04/18 05/04/18 05/04/18 07:03 08:02 11:10 WBC RBC 3.52 L Hgb Hct 29.8 L MCH RDW 16.2 H Lymph % (Auto) Porter % (Auto) 8.6 H Lymph # Seg Neutrophils % Seg Neuts % (Manual) Lymphocytes % (Manual) Seg Neutrophils # Man Lymphocytes # (Manual) PT INR VBG pH Sodium 135 L Potassium Chloride Carbon Dioxide BUN Creatinine 0.2 L Glucose 160 H POC Glucose 106 H Lactic Acid Calcium 7.7 L Phosphorus Magnesium Total Bilirubin AST Total Protein Albumin Prealbumin Crossmatch 05/04/18 05/05/18 05/05/18 23:38 11:28 16:55 WBC RBC Hgb Hct MCH RDW Lymph % (Auto) Porter % (Auto) Lymph # Seg Neutrophils % Seg Neuts % (Manual) Lymphocytes % (Manual) Seg Neutrophils # Man Lymphocytes # (Manual) PT INR VBG pH Sodium Potassium Chloride Carbon Dioxide BUN Creatinine Glucose POC Glucose 121 H 119 H 108 H Lactic Acid Calcium Phosphorus Magnesium Total Bilirubin AST Total Protein Albumin Prealbumin Crossmatch 05/05/18 05/06/18 05/06/18 Unknown 05:35 16:40 WBC RBC Hgb Hct MCH RDW Lymph % (Auto) Porter % (Auto) Lymph # Seg Neutrophils % Seg Neuts % (Manual) Lymphocytes % (Manual) Seg Neutrophils # Man Lymphocytes # (Manual) PT INR VBG pH Sodium 135 L 136 L Potassium Chloride 97.9 L Carbon Dioxide BUN Creatinine 0.2 L 0.2 L Glucose 119 H POC Glucose 133 H Lactic Acid Calcium 8.0 L 8.1 L Phosphorus Magnesium Total Bilirubin AST 46 H Total Protein 5.5 L Albumin 2.7 L Prealbumin Crossmatch 05/06/18 05/07/18 05/07/18 22:07 05:38 05:40 WBC RBC Hgb Hct MCH RDW Lymph % (Auto) Porter % (Auto) Lymph # Seg Neutrophils % Seg Neuts % (Manual) Lymphocytes % (Manual) Seg Neutrophils # Man Lymphocytes # (Manual) PT INR VBG pH Sodium 133 L Potassium Chloride Carbon Dioxide BUN Creatinine 0.2 L Glucose POC Glucose 168 H 107 H Lactic Acid Calcium 8.2 L Phosphorus Magnesium Total Bilirubin AST Total Protein Albumin Prealbumin Crossmatch 05/07/18 05/07/18 05/08/18 11:56 18:04 05:38 WBC RBC Hgb Hct MCH RDW 16.3 H Lymph % (Auto) Porter % (Auto) 7.7 H Lymph # Seg Neutrophils % Seg Neuts % (Manual) Lymphocytes % (Manual) Seg Neutrophils # Man Lymphocytes # (Manual) PT INR VBG pH Sodium Potassium Chloride Carbon Dioxide BUN Creatinine Glucose POC Glucose 145 H 125 H Lactic Acid Calcium Phosphorus Magnesium Total Bilirubin AST Total Protein Albumin Prealbumin Crossmatch 05/08/18 05/08/18 05/08/18 05:38 11:35 16:23 WBC RBC Hgb Hct MCH RDW Lymph % (Auto) Porter % (Auto) Lymph # Seg Neutrophils % Seg Neuts % (Manual) Lymphocytes % (Manual) Seg Neutrophils # Man Lymphocytes # (Manual) PT INR VBG pH Sodium 135 L Potassium Chloride Carbon Dioxide BUN Creatinine 0.2 L Glucose POC Glucose 118 H 131 H Lactic Acid Calcium Phosphorus Magnesium Total Bilirubin AST Total Protein Albumin Prealbumin Crossmatch 05/08/18 05/09/18 05/09/18 21:40 05:46 06:15 WBC RBC Hgb Hct MCH RDW Lymph % (Auto) Porter % (Auto) Lymph # Seg Neutrophils % Seg Neuts % (Manual) Lymphocytes % (Manual) Seg Neutrophils # Man Lymphocytes # (Manual) PT INR VBG pH Sodium 135 L Potassium Chloride 97.5 L Carbon Dioxide BUN Creatinine 0.2 L Glucose POC Glucose 110 H 115 H Lactic Acid Calcium Phosphorus Magnesium Total Bilirubin AST Total Protein Albumin Prealbumin Crossmatch 05/09/18 05/09/18 05/10/18 11:28 23:53 06:22 WBC RBC Hgb Hct MCH RDW Lymph % (Auto) Porter % (Auto) Lymph # Seg Neutrophils % Seg Neuts % (Manual) Lymphocytes % (Manual) Seg Neutrophils # Man Lymphocytes # (Manual) PT INR VBG pH Sodium Potassium Chloride Carbon Dioxide BUN Creatinine Glucose POC Glucose 145 H 132 H 149 H Lactic Acid Calcium Phosphorus Magnesium Total Bilirubin AST Total Protein Albumin Prealbumin Crossmatch 05/10/18 05/10/18 05/11/18 16:14 23:24 05:00 WBC RBC Hgb Hct MCH RDW Lymph % (Auto) Porter % (Auto) Lymph # Seg Neutrophils % Seg Neuts % (Manual) Lymphocytes % (Manual) Seg Neutrophils # Man Lymphocytes # (Manual) PT INR VBG pH Sodium Potassium Chloride Carbon Dioxide BUN Creatinine 0.2 L Glucose 113 H POC Glucose 119 H 119 H Lactic Acid Calcium Phosphorus Magnesium Total Bilirubin AST Total Protein Albumin Prealbumin Crossmatch 05/11/18 05/11/18 05/11/18 05:57 11:23 16:29 WBC RBC Hgb Hct MCH RDW Lymph % (Auto) Porter % (Auto) Lymph # Seg Neutrophils % Seg Neuts % (Manual) Lymphocytes % (Manual) Seg Neutrophils # Man Lymphocytes # (Manual) PT INR VBG pH Sodium Potassium Chloride Carbon Dioxide BUN Creatinine Glucose POC Glucose 173 H 143 H 159 H Lactic Acid Calcium Phosphorus Magnesium Total Bilirubin AST Total Protein Albumin Prealbumin Crossmatch 05/12/18 05/12/18 05/12/18 00:47 06:23 11:21 WBC RBC Hgb Hct MCH RDW Lymph % (Auto) Porter % (Auto) Lymph # Seg Neutrophils % Seg Neuts % (Manual) Lymphocytes % (Manual) Seg Neutrophils # Man Lymphocytes # (Manual) PT INR VBG pH Sodium Potassium Chloride Carbon Dioxide BUN Creatinine Glucose POC Glucose 139 H 136 H 116 H Lactic Acid Calcium Phosphorus Magnesium Total Bilirubin AST Total Protein Albumin Prealbumin Crossmatch 05/12/18 05/12/18 05/12/18 17:19 17:22 22:22 WBC RBC Hgb Hct MCH RDW Lymph % (Auto) Porter % (Auto) Lymph # Seg Neutrophils % Seg Neuts % (Manual) Lymphocytes % (Manual) Seg Neutrophils # Man Lymphocytes # (Manual) PT INR VBG pH Sodium Potassium Chloride Carbon Dioxide BUN Creatinine Glucose POC Glucose 329 H 116 H 124 H Lactic Acid Calcium Phosphorus Magnesium Total Bilirubin AST Total Protein Albumin Prealbumin Crossmatch 05/13/18 05/13/18 05/13/18 18:35 22:25 Unknown WBC RBC Hgb Hct MCH RDW Lymph % (Auto) Porter % (Auto) Lymph # Seg Neutrophils % Seg Neuts % (Manual) Lymphocytes % (Manual) Seg Neutrophils # Man Lymphocytes # (Manual) PT INR VBG pH Sodium 136 L Potassium Chloride 97.8 L Carbon Dioxide BUN Creatinine 0.2 L Glucose POC Glucose 137 H 106 H Lactic Acid Calcium Phosphorus Magnesium Total Bilirubin AST 41 H Total Protein Albumin 3.5 L Prealbumin Crossmatch 05/14/18 05/14/18 05/14/18 06:40 06:40 12:48 WBC RBC 3.48 L Hgb 9.8 L Hct 29.1 L MCH RDW 15.6 H Lymph % (Auto) Porter % (Auto) Lymph # Seg Neutrophils % Seg Neuts % (Manual) Lymphocytes % (Manual) Seg Neutrophils # Man Lymphocytes # (Manual) PT INR VBG pH Sodium Potassium Chloride Carbon Dioxide BUN Creatinine 0.2 L Glucose POC Glucose 113 H Lactic Acid Calcium 8.1 L Phosphorus Magnesium Total Bilirubin AST Total Protein Albumin Prealbumin Crossmatch 05/14/18 05/14/18 05/15/18 17:52 22:04 05:10 WBC RBC Hgb Hct MCH RDW Lymph % (Auto) Porter % (Auto) Lymph # Seg Neutrophils % Seg Neuts % (Manual) Lymphocytes % (Manual) Seg Neutrophils # Man Lymphocytes # (Manual) PT INR VBG pH Sodium 135 L Potassium Chloride Carbon Dioxide BUN Creatinine 0.2 L Glucose POC Glucose 106 H 107 H Lactic Acid Calcium 8.2 L Phosphorus Magnesium Total Bilirubin AST Total Protein Albumin Prealbumin Crossmatch 05/15/18 05/15/18 05/15/18 06:24 11:31 16:47 WBC RBC Hgb Hct MCH RDW Lymph % (Auto) Porter % (Auto) Lymph # Seg Neutrophils % Seg Neuts % (Manual) Lymphocytes % (Manual) Seg Neutrophils # Man Lymphocytes # (Manual) PT INR VBG pH Sodium Potassium Chloride Carbon Dioxide BUN Creatinine Glucose POC Glucose 125 H 133 H 135 H Lactic Acid Calcium Phosphorus Magnesium Total Bilirubin AST Total Protein Albumin Prealbumin Crossmatch 05/16/18 05/16/18 05/16/18 00:13 04:30 05:59 WBC RBC Hgb Hct MCH RDW Lymph % (Auto) Porter % (Auto) Lymph # Seg Neutrophils % Seg Neuts % (Manual) Lymphocytes % (Manual) Seg Neutrophils # Man Lymphocytes # (Manual) PT INR VBG pH Sodium Potassium Chloride Carbon Dioxide BUN Creatinine 0.2 L Glucose POC Glucose 132 H 113 H Lactic Acid Calcium Phosphorus Magnesium Total Bilirubin AST Total Protein Albumin Prealbumin Crossmatch 05/16/18 05/16/18 05/17/18 13:03 18:51 05:06 WBC RBC Hgb Hct MCH RDW Lymph % (Auto) Porter % (Auto) Lymph # Seg Neutrophils % Seg Neuts % (Manual) Lymphocytes % (Manual) Seg Neutrophils # Man Lymphocytes # (Manual) PT INR VBG pH Sodium Potassium Chloride Carbon Dioxide BUN Creatinine Glucose POC Glucose 112 H 111 H 128 H Lactic Acid Calcium Phosphorus Magnesium Total Bilirubin AST Total Protein Albumin Prealbumin Crossmatch 05/17/18 05/17/18 05/18/18 06:07 23:54 07:05 WBC RBC Hgb Hct MCH RDW Lymph % (Auto) Porter % (Auto) Lymph # Seg Neutrophils % Seg Neuts % (Manual) Lymphocytes % (Manual) Seg Neutrophils # Man Lymphocytes # (Manual) PT INR VBG pH Sodium 135 L Potassium Chloride Carbon Dioxide BUN Creatinine 0.2 L Glucose 133 H POC Glucose 120 H 119 H Lactic Acid Calcium Phosphorus Magnesium Total Bilirubin AST Total Protein Albumin Prealbumin Crossmatch 05/18/18 05/18/18 05/18/18 07:43 11:29 16:29 WBC RBC Hgb Hct MCH RDW Lymph % (Auto) Porter % (Auto) Lymph # Seg Neutrophils % Seg Neuts % (Manual) Lymphocytes % (Manual) Seg Neutrophils # Man Lymphocytes # (Manual) PT INR VBG pH Sodium Potassium Chloride Carbon Dioxide BUN Creatinine 0.2 L Glucose 117 H POC Glucose 149 H 108 H Lactic Acid Calcium 8.2 L Phosphorus Magnesium Total Bilirubin AST Total Protein Albumin Prealbumin Crossmatch 05/19/18 05/19/18 05/20/18 23:15 Unknown 05:59 WBC RBC Hgb Hct MCH RDW Lymph % (Auto) Porter % (Auto) Lymph # Seg Neutrophils % Seg Neuts % (Manual) Lymphocytes % (Manual) Seg Neutrophils # Man Lymphocytes # (Manual) PT INR VBG pH Sodium 136 L Potassium Chloride Carbon Dioxide BUN Creatinine 0.2 L Glucose POC Glucose 106 H 114 H Lactic Acid Calcium Phosphorus 4.60 H D Magnesium Total Bilirubin AST Total Protein Albumin Prealbumin Crossmatch 05/20/18 05/20/18 05/20/18 06:25 17:52 23:59 WBC RBC Hgb Hct MCH RDW Lymph % (Auto) Porter % (Auto) Lymph # Seg Neutrophils % Seg Neuts % (Manual) Lymphocytes % (Manual) Seg Neutrophils # Man Lymphocytes # (Manual) PT INR VBG pH Sodium 135 L Potassium Chloride Carbon Dioxide BUN Creatinine 0.2 L Glucose 108 H POC Glucose 118 H 186 H Lactic Acid Calcium 8.3 L Phosphorus Magnesium Total Bilirubin AST Total Protein 5.6 L Albumin 2.9 L Prealbumin 0.113 L Crossmatch 05/21/18 05/21/18 05/21/18 04:40 06:36 07:20 WBC RBC 3.40 L Hgb 9.2 L Hct 28.0 L MCH 27 L RDW 16.2 H Lymph % (Auto) Porter % (Auto) 10.3 H Lymph # Seg Neutrophils % Seg Neuts % (Manual) Lymphocytes % (Manual) Seg Neutrophils # Man Lymphocytes # (Manual) PT INR VBG pH Sodium 135 L Potassium Chloride Carbon Dioxide BUN Creatinine < 0.2 L Glucose POC Glucose 138 H Lactic Acid Calcium 8.2 L Phosphorus Magnesium Total Bilirubin AST Total Protein Albumin Prealbumin Crossmatch Allied health notes reviewed: nursing
[2018-05-21] MEDS: LOPRESSOR PO SCH ×2 (09:53→21:44)
[2018-05-21] MEDS: COZAAR PO SCH (09:55)
[2018-05-21] MEDS: NEURONTIN PO SCH ×3 (09:55→21:23)
[2018-05-21] MEDS: XANAX PO PRN (09:55)
--- NOTE | 2018-05-21 10:44 | Progress Note ---
Assessment and Plan Assessment and plan: The patient is a 57-year-old female with hypertension, neurofibromatosis, hepatitis C, COPD, nicotine dependence presented to the emergency room on 04/18/18 with complaints of abdominal pain going on for [address] scan obtained in the emergency room revealed a ruptured appendix with associated intra-abdominal abscess. General surgery was consulted and the patient underwent an emergent exploratory laparotomy with evacuation of pelvic abscess. She was noted to have a gangrenous, perforated appendix eroding including into the small bowel. As per the op note, the abscess could not be drained as the entire abscess and inflammatory process had trapped the small bowel, which was mobilized and she underwent an ileocolic anastomosis. The patient went back to the OR on 04/25/18 for drain dislodgment. Surgical cultures growing ECOLI and beta hemolytic strep group C, ester albicans and enteroccocus faecium Per surgery considering plan to transfer to LTAC If this is the case, there are a lot of care issues to keep in mind * pt must continue on current TPN regimen and sandostatin-pt refused the later due to diarrhea * Continue local wd care * Surgical culture grew Ecoli and ester * If pt begins experiencing RLQ abd pain, Drain must be re-placed on low continues suction * repeat CT of abd & pelvis with PO contrast to be scheduled for Friday * Pt needs to remain NPO except for ice chips, meds and popsicles until the results of her CT on Friday05/25/18 * Pt may have retention sutures removed after Friday * CT abdome: 05/18/18- Still shows minimal drainage, per surgery will repeat in a week * Insurance denies LTAC, recommends SNF. Both surgeon and Patient believe SNF is the wrong place * Urology was consulted for possible entro-vesico fistula due to the color of the urine, the patient refused cystogram and urology signed out. Sepsis Etiology secondary to gangrenous and perforated appendix causing intra- abdominal/pelvic abscess. Patient is status post exploratory laparotomy with appendectomy and evacuation of pelvic abscess. Now off antibiotics and noted ID signed off. No fever off antibiotics. Hypotension-resolved BP better, Perforated appendix s/p exploratory lap Cont. 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 Untreated. Outpatient follow-up. Accel Hypertension. continue Cozaar to 100mg. Cont. Hydralazine prn. Diarrhea: start on lmodium prn x 1 today Tachycardia: secondary to dehydration and deconditioning. Fluids to be given and also start Low dose BB. COPD. Compensated. Neurofibromatosis: Tobacco abuse. Patient counseled on smoking cessation FOR 15 MINS, Patient verbalized understanding and will think about it. Severe protein calorie malnutrition; town clerk consulted. continue with TPN Disposition - when cleared by surgery History Interval history: Patient seen and examined this am with nursing staff. No diarrhea today, But still with nausea. Hospitalist Physical - Physical exam Narrative exam: VITAL SIGNS: Reviewed. GENERAL: The patient appeared well nourished and normally developed. Cachectic. Vital signs as documented. Temporal wasting noted HEAD: No signs of head trauma. marked tempral wasting EYES: Pupils are equal. Extraocular motions intact. EARS: Hearing grossly intact. MOUTH: Oropharynx is normal. NECK: No adenopathy, no JVD. CHEST: Chest with clear breath sounds bilaterally. No wheezes, rales, or rhonchi. CARDIAC: Regular rate and rhythm. S1 and S2, without murmurs, gallops, or rubs. VASCULAR: No Edema. Peripheral pulses normal and equal in all extremities. ABDOMEN: Soft, midly distended, some tenderness. bilateral drain noted. hypoactive BS No rebound or guarding, and no masses palpated. MUSCULOSKELETAL: Good range of motion of all major joints. Extremities without clubbing, cyanosis or edema. NEUROLOGIC EXAM: Alert and oriented x 3. No focal sensory or strength deficits. Speech normal. Follows commands. PSYCHIATRIC: Mood normal. SKIN: neurofibromatosis lesions on face - Constitutional Vitals: Temp Pulse Resp BP Pulse Ox 98.6 F 106 H 16 112/62 95 05/21/18 07:15 05/21/18 09:30 05/21/18 09:30 05/21/18 07:15 05/21/18 07:15 General appearance: Present: no acute distress, cachectic, other (temporal wasting scaphoid abdomen.) Results - Labs CBC & Chem 7: 05/21/18 07:20 05/21/18 04:40 Labs: Laboratory Last Values WBC 5.1 K/mm3 (4.5-11.0) 05/21/18 07:20 RBC 3.40 M/mm3 (3.65-5.03) L 05/21/18 07:20 Hgb 9.2 gm/dl (10.1-14.3) L 05/21/18 07:20 Hct 28.0 % (30.3-42.9) L 05/21/18 07:20 MCV 82 fl (79-97) 05/21/18 07:20 MCH 27 pg (28-32) L 05/21/18 07:20 MCHC 33 % (30-34) 05/21/18 07:20 RDW 16.2 % (13.2-15.2) H 05/21/18 07:20 Plt Count 170 K/mm3 (140-440) 05/21/18 07:20 Lymph % (Auto) 25.6 % (13.4-35.0) 05/21/18 07:20 [place] % (Auto) 10.3 % (0.0-7.3) H 05/21/18 07:20 Eos % (Auto) 1.3 % (0.0-4.3) 05/21/18 07:20 Baso % (Auto) 0.4 % (0.0-1.8) 05/21/18 07:20 Lymph # 1.3 K/mm3 (1.2-5.4) 05/21/18 07:20 Catron # 0.5 K/mm3 (0.0-0.8) 05/21/18 07:20 Eos # 0.1 K/mm3 (0.0-0.4) 05/21/18 07:20 Baso # 0.0 K/mm3 (0.0-0.1) 05/21/18 07:20 Add Manual Diff Complete 04/30/18 05:41 Total Counted 100 04/30/18 05:41 Seg Neutrophils % 62.4 % (40.0-70.0) 05/21/18 07:20 Seg Neuts % (Manual) 88.0 % (40.0-70.0) H 04/30/18 05:41 Band Neutrophils % 1.0 % 04/30/18 05:41 Lymphocytes % (Manual) 8.0 % (13.4-35.0) L 04/30/18 05:41 Reactive Lymphs % (Man) 0 % 04/30/18 05:41 Monocytes % (Manual) 3.0 % (0.0-7.3) 04/30/18 05:41 Eosinophils % (Manual) 0 % (0.0-4.3) 04/30/18 05:41 Basophils % (Manual) 0 % (0.0-1.8) 04/30/18 05:41 Metamyelocytes % 0 % 04/30/18 05:41 Myelocytes % 0 % 04/30/18 05:41 Promyelocytes % 0 % 04/30/18 05:41 Blast Cells % 0 % 04/30/18 05:41 Nucleated RBC % Not Reportable 04/30/18 05:41 Seg Neutrophils # 3.2 K/mm3 (1.8-7.7) 05/21/18 07:20 Seg Neutrophils # Man 7.7 K/mm3 (1.8-7.7) 04/30/18 05:41 Band Neutrophils # 0.1 K/mm3 04/30/18 05:41 Lymphocytes # (Manual) 0.7 K/mm3 (1.2-5.4) L 04/30/18 05:41 Abs React Lymphs (Man) 0.0 K/mm3 04/30/18 05:41 Monocytes # (Manual) 0.3 K/mm3 (0.0-0.8) 04/30/18 05:41 Eosinophils # (Manual) 0.0 K/mm3 (0.0-0.4) 04/30/18 05:41 Basophils # (Manual) 0.0 K/mm3 (0.0-0.1) 04/30/18 05:41 Metamyelocytes # 0.0 K/mm3 04/30/18 05:41 Myelocytes # 0.0 K/mm3 04/30/18 05:41 Promyelocytes # 0.0 K/mm3 04/30/18 05:41 Blast Cells # 0.0 K/mm3 04/30/18 05:41 WBC Morphology Not Reportable 04/30/18 05:41 Hypersegmented Neuts Not Reportable 04/30/18 05:41 Hyposegmented Neuts Not Reportable 04/30/18 05:41 Hypogranular Neuts Not Reportable 04/30/18 05:41 Smudge Cells Not Reportable 04/30/18 05:41 Toxic Granulation Not Reportable 04/30/18 05:41 Toxic Vacuolation Not Reportable 04/30/18 05:41 Dohle Bodies Not Reportable 04/30/18 05:41 Pelger-Huet Anomaly Not Reportable 04/30/18 05:41 Nicole Rods Not Reportable 04/30/18 05:41 Platelet Estimate Appears normal 04/30/18 05:41 Clumped Platelets Not Reportable 04/30/18 05:41 Plt Clumps, EDTA Not Reportable 04/30/18 05:41 Large Platelets Not Reportable 04/30/18 05:41 Giant Platelets Not Reportable 04/30/18 05:41 Platelet Satelliting Not Reportable 04/30/18 05:41 Plt Morphology Comment Not Reportable 04/30/18 05:41 RBC Morphology Not Reportable 04/30/18 05:41 Dimorphic RBCs Not Reportable 04/30/18 05:41 Polychromasia Not Reportable 04/30/18 05:41 Hypochromasia 1+ 04/30/18 05:41 Poikilocytosis Not Reportable 04/30/18 05:41 Anisocytosis 1+ 04/30/18 05:41 Microcytosis Not Reportable 04/30/18 05:41 Macrocytosis Not Reportable 04/30/18 05:41 Spherocytes Not Reportable 04/30/18 05:41 Pappenheimer Bodies Not Reportable 04/30/18 05:41 Sickle Cells Not Reportable 04/30/18 05:41 Target Cells Not Reportable 04/30/18 05:41 Tear Drop Cells Not Reportable 04/30/18 05:41 Ovalocytes Few 04/30/18 05:41 Stomatocytes Few 04/29/18 05:18 Helmet Cells Not Reportable 04/30/18 05:41 Spann-Florissant Bodies Not Reportable 04/30/18 05:41 [place] Rings Not Reportable 04/30/18 05:41 Lagrange Cells Not Reportable 04/30/18 05:41 Bite Cells Not Reportable 04/30/18 05:41 Crenated Cell Not Reportable 04/30/18 05:41 Elliptocytes Not Reportable 04/30/18 05:41 Acanthocytes (Spur) Not Reportable 04/30/18 05:41 Rouleaux Not Reportable 04/30/18 05:41 Hemoglobin C Crystals Not Reportable 04/30/18 05:41 Schistocytes Not Reportable 04/30/18 05:41 Malaria parasites Not Reportable 04/30/18 05:41 Hung Bodies Not Reportable 04/30/18 05:41 Hem Pathologist Commnt No 04/30/18 05:41 PT 15.3 Sec. (12.2-14.9) H 04/22/18 05:19 INR 1.17 (0.87-1.13) H 04/22/18 05:19 APTT 29.4 Sec. (24.2-36.6) 04/19/18 05:19 POC ABG pH 7.367 (7.35-7.45) 04/19/18 00:19 POC ABG pCO2 36.8 (35-45) 04/19/18 00:19 POC ABG pO2 84 (80-105) 04/19/18 00:19 POC ABG HCO3 21.1 04/19/18 00:19 POC ABG Total CO2 22 04/19/18 00:19 POC ABG O2 Sat 96 04/19/18 00:19 POC ABG Base Excess -4 04/19/18 00:19 VBG pH 7.439 (7.320-7.420) H 04/18/18 14:30 FiO2 32 % 04/19/18 00:19 Sodium 135 mmol/L (137-145) L 05/21/18 04:40 Potassium 3.7 mmol/L (3.6-5.0) 05/21/18 04:40 Chloride 100.6 mmol/L (98-107) 05/21/18 04:40 Carbon Dioxide 26 mmol/L (22-30) 05/21/18 04:40 Anion Gap 12 mmol/L 05/21/18 04:40 BUN 11 mg/dL (7-17) 05/21/18 04:40 Creatinine < 0.2 mg/dL (0.7-1.2) L 05/21/18 04:40 Estimated GFR > 60 ml/min 05/21/18 04:40 BUN/Creatinine Ratio 55 % 05/21/18 04:40 Glucose 93 mg/dL (65-100) 05/21/18 04:40 POC Glucose 138 (70-105) H 05/21/18 06:36 Lactic Acid 1.20 mmol/L (0.7-2.0) 05/19/18 10:27 Calcium 8.2 mg/dL (8.4-10.2) L 05/21/18 04:40 Phosphorus 3.30 mg/dL (2.5-4.5) 05/21/18 04:40 Magnesium 1.80 mg/dL (1.7-2.3) 05/21/18 04:40 Total Bilirubin 0.70 mg/dL (0.1-1.2) 05/20/18 06:25 AST 29 units/L (5-40) 05/20/18 06:25 ALT 32 units/L (7-56) 05/20/18 06:25 Alkaline Phosphatase 91 units/L (35-129) 05/20/18 06:25 Total Protein 5.6 g/dL (6.3-8.2) L 05/20/18 06:25 Albumin 2.9 g/dL (3.9-5) L 05/20/18 06:25 Albumin/Globulin Ratio 1.1 % 05/20/18 06:25 Prealbumin 0.113 g/L (0.200-0.400) L 05/20/18 06:25 Triglycerides 113 mg/dL (2-149) 05/13/18 Unknown Urine Color Yellow (Yellow) 04/20/18 13:35 Urine Turbidity Clear (Clear) 04/20/18 13:35 Urine pH 5.0 (5.0-7.0) 04/20/18 13:35 Ur Specific [place] 1.011 (1.003-1.030) 04/20/18 13:35 Urine Protein <15 mg/dl mg/dL (Negative) 04/20/18 13:35 Urine Glucose (UA) Neg mg/dL (Negative) 04/20/18 13:35 Urine Ketones 20 mg/dL (Negative) 04/20/18 13:35 Urine Blood Sm (Negative) 04/20/18 13:35 Urine Nitrite Neg (Negative) 04/20/18 13:35 Urine Bilirubin Neg (Negative) 04/20/18 13:35 Urine Urobilinogen 2.0 mg/dL (<2.0) 04/20/18 13:35 Ur Leukocyte Esterase Tr (Negative) 04/20/18 13:35 Urine WBC (Auto) 2.0 /HPF (0.0-6.0) 04/20/18 13:35 Urine RBC (Auto) 1.0 /HPF (0.0-6.0) 04/20/18 13:35 U Epithel Cells (Auto) 2.0 /HPF (0-13.0) 04/18/18 16:45 Urine Bacteria (Auto) 2+ /HPF (Negative) 04/18/18 16:45 Urine Mucus Few /HPF 04/20/18 13:35 Blood Type O POSITIVE 04/19/18 13:05 Antibody Screen Negative 04/19/18 13:05 Crossmatch See Detail 04/19/18 13:05 Nutrition/Malnutrition Assess - Dietary Evaluation Nutrition/Malnutrition Findings: Nutrition Notes Start: 04/24/18 09:13 Freq: Status: Active Protocol: Document 05/21/18 10:17 TW (Rec: 05/21/18 10:40 TW [email or web address]) Co-Sign 05/21/18 10:17 OL Nutrition Notes Initial or Follow up Reassessment Other Pertinent Diagnosis Perforated appendix s/p exp lap, Hep C Current Diet TPN at 75ml/hr Labs/Tests Na 135 M.8 K: 3.7 Pertinent Medications Reviewed. Height 5 ft 1 in Weight 41.2 kg [place] Body Weight (kg) 47.72 BMI 17.2 Subjective/Other Information Day 25 TPN. Observed TPN running at goal rate. Percent of energy/protein needs met: 100% energy and pro Burn Absent Trauma Absent #2 Nutrition Diagnosis Increased nutrient needs ( specify in comment below) Diagnosis Progress(for reassessment Continues documentation) #1 Nutrition Diagnosis Inadequate oral intake Diagnosis Progress(for reassessment Continues documentation) Is patient on ventilator? No Is Patient Ambulatory and/or Out of Bed Yes REE-([facility]-ambulatory/OOB) [ 1221.194 [id number]] Kcal/Kg value to use for calculation 40 Approximate Energy Requirements Using 1648 kcal/Kg Calculation Used for Recommendations Kcal/kg Additional Notes Pro needs 1.25-1.5g/k-61g /day Fluid needs 1ml/kcal Nutrition Intervention Nutrition Support: Continue TPN at 75 ml/hr: MVI, MTE, 80mEq K. Osmolality: 1730. Kcal 1,315 Protein (gm) 95 Carbohydrates (gm) 275 Fat (gm) 0 Fluid (mL) 1,800 Fiber (gm) 0 Goal #1 CPN to meet 90-100% energy and pro needs Goal #2 Wt gain/maintenance Follow-Up By: 05/21/18 Additional Comments Labs in am: Mg TORITO, Odilia
[2018-05-21] MEDS: ZOFRAN IV PRN ×2 (12:06→15:51)
--- NOTE | 2018-05-21 15:50 | Fluoroscopy Report ---
FLUOROSCOPY CYSTOGRAM STATIC History: Enterovesicular fistula Findings: 8 fluoroscopic images were captured during this exam. Approximately 250 cc of water-soluble contrast was infused into the bladder a Ward catheter. The bladder is normal size and contour. No evidence for mass or extravasation of contrast. Impression: Normal cystogram.
[2018-05-21] MEDS ORDERED: TPN ADULT 1,800 ML IV SCH (20:00)
[2018-05-21] MEDS: REMERON PO SCH (21:33)
--- NOTE | 2018-05-21 23:23 | XRay Report ---
PROCEDURE: XR CHEST ROUTINE 2V TECHNIQUE: PA and lateral chest radiographs were obtained. HISTORY: possible aspiration. COMPARISONS: None. FINDINGS: Heart: Normal. Mediastinum/Vessels: Normal. Lungs/Pleural space: Normal. Bony thorax: No acute osseous abnormality. There is a right PICC catheter this ends in the SVC IMPRESSION: There is no evidence of an acute cardiopulmonary process. Right PICC catheter ends in th e SVC. This document is electronically signed by Chelsie Angelo DO., May 21 2018 11:21:09 PM ET
[2018-05-22] MEDS: DILAUDID IV PRN ×5 (02:15→23:09)
[2018-05-22] MEDS: ZOFRAN IV PRN ×2 (02:16→10:37)
[2018-05-22 06:15] LABS: BUN/Creatinine Ratio 60; Blood Urea Nitrogen 12 mg/dL (7-17); Calcium 8.3 mg/dL (8.4-10.2); Hemolysis Index 2
--- NOTE | 2018-05-22 08:48 | Progress Note ---
Subjective Date of service: 05/22/18 Principal diagnosis: Sepsis; Ex-lap appendectomy and evacuation of pelvic abscess; Peritonitis Interval history: reconsulted - Dr. Badillo convinced pt to get cystogram (normal) 57 YO Female with HTN, Neurofibromatosis, HCV, COPD, Nicotine Dependence present s to ED for evaluation. Pt states that she has experienced abdominal pain over the past 3 days. Pt states that pain is 10/10, constant, worsened with movement, decreased mildly with nonmovement. Pt acknowledges fever, nausea, multiple episodes of vomiting, inabililty to tolerate oral intake. Pt states that symptoms have progressively worsened over the past 2 days. EMS notified, and upon arrival the patient was found to be in distress. Pt transported to [facility] for further care and evaluation. Pt seen and evaluated in ED and found to have sepsis, suspected secondary to Ruptured Appendicitis complicated by an intraabdominal abscess. Surgery consulted, as well as PAPER BAG INSPECTOR service. Pt initiated on Sepsis protocol, and admitted to ICU. Pt pending surgical intervention. Primary care Physician: Dr. Navin Fagan discussed with nurse cystogram (normal) 05-21-18 ALISSA in past voided yesterday brownish color (?concern for fistula) most recent void ----clear (cher) suprapubic area mild tender from recent surgery A/P status post exploratory laparotomy with appendectomy and evacuation of pelvic abscess (Dr. Shelton) normal exam trend Objective - Constitutional Vitals: Vital Signs - 12hr 05/21/18 05/21/18 05/21/18 21:44 21:49 21:58 Temperature 99.7 F H Pulse Rate 104 H 104 H Respiratory Rate Blood Pressure 128/61 Blood Pressure 128/61 [Left] O2 Sat by Pulse 94 94 Oximetry 05/22/18 05/22/18 05:32 07:21 Temperature 97.9 F 98.1 F Pulse Rate 100 H 101 H Respiratory 18 18 Rate Blood Pressure 138/74 121/65 Blood Pressure [Left] O2 Sat by Pulse 98 95 Oximetry - Labs CBC & Chem 7: 05/21/18 07:20 05/22/18 05:35 Labs: Abnormal lab results 05/21/18 05/21/18 05/22/18 Range/Units 11:12 18:17 00:10 Creatinine (0.7-1.2) mg/dL Glucose (65-100) mg/dL POC Glucose 137 H 134 H 127 H (70-105) Calcium (8.4-10.2) mg/dL 05/22/18 05/22/18 Range/Units 05:33 05:35 Creatinine 0.2 L (0.7-1.2) mg/dL Glucose 115 H (65-100) mg/dL POC Glucose 135 H (70-105) Calcium 8.3 L (8.4-10.2) mg/dL Medications & Allergies - Medications Allergies/Adverse Reactions: Allergies NSAIDS (Non-Steroidal Anti-Inflamma Allergy (Verified 04/08/18 03:20) Unknown Home Medications: Home Medications Medication Instructions Recorded Confirmed Last Taken Type Citalopram Hydrobromide 40 mg PO QDAY 07/31/17 04/19/18 04/15/18 History [Citalopram HBr] Gabapentin [Neurontin] 800 mg PO 5XD 07/31/17 04/19/18 04/15/18 History Losartan 50 mg PO QDAY 07/31/17 04/19/18 04/15/18 History Tizanidine HCl [Zanaflex] 2 mg PO QDAY 07/31/17 04/19/18 04/15/18 History busPIRone [Buspar] 5 mg PO BID 07/31/17 04/19/18 04/15/18 History Ciprofloxacin HCl [Ciprofloxacin 500 mg PO Q12HR #10 tab 08/01/17 04/19/18 04/15/18 Rx TAB] Active Medications: Generic Name Dose Route Start Last Admin Trade Name Freq PRN Reason Stop Dose Admin Acetaminophen 650 mg 05/20/18 12:12 05/20/18 12:41 Tylenol [place] 650 mg Q4H PRN Administration Fever >101 Albuterol 2.5 mg 04/18/18 18:30 05/03/18 15:15 Proventil IH 2.5 mg Q3HRT PRN Administration Shortness Of Breath Alprazolam 0.5 mg 05/04/18 12:15 05/21/18 09:55 Xanax PO 0.5 mg Q8H PRN Administration Anxiety Arformoterol Tartrate 15 mcg 05/16/18 20:00 05/21/18 09:34 Brovana Nebu IH 15 mcg Q12HRT DUSTIN Administration Benzocaine/Menthol 1 each 04/20/18 12:51 Cepacol X Strength MM Q2HR PRN Sore Throat Budesonide 0.5 mg 05/16/18 20:00 05/21/18 09:34 Pulmicort IH 0.5 mg Q12HRT DUSTIN Administration Fentanyl 25 mcg 05/17/18 11:00 05/20/18 10:55 Duragesic TD 25 mcg Q3D DUSTIN Administration Gabapentin 800 mg 05/02/18 20:00 05/21/18 21:23 Neurontin PO 800 mg TID DUSTIN Administration Hydralazine HCl 10 mg 04/21/18 11:45 05/07/18 05:50 Apresoline IV 10 mg Q4HR PRN Administration SBP >160 Hydromorphone HCl 0.5 mg 05/11/18 12:00 05/22/18 02:15 Dilaudid IV 0.5 mg Q4H PRN Administration Pain , Severe (7-10) Amino Acids/Electrolytes/Dextrose 1,800 mls @ 75 mls/hr 05/21/18 20:00 0 05/21/18 21:25 Tpn Adult IV 05/22/18 19:59 75 mls/hr DAILY@2000 DUSTIN Administration Protocol Labetalol HCl 10 mg 05/03/18 22:16 Normodyne IV Q6H PRN systolic BP greater than 175 Loperamide HCl 2 mg 05/17/18 14:46 05/17/18 17:11 Imodium PO 2 mg Q2H PRN Administration Diarrhea Losartan Potassium 100 mg 05/04/18 10:00 05/21/18 09:55 Cozaar PO 100 mg QDAY DUSTIN Administration Metoprolol Tartrate 12.5 mg 05/13/18 10:00 05/21/18 21:44 Lopressor PO 12.5 mg BID DUSTIN Administration Mirtazapine 15 mg 05/09/18 22:00 05/21/18 21:33 Remeron PO 15 mg QHS DUSTIN Administration Octreotide Acetate 100 mcg 05/08/18 14:00 05/22/18 05:27 Sandostatin SUB-Q 100 mcg Q8HR DUSTIN Administration Ondansetron HCl 4 mg 05/21/18 11:34 05/22/18 02:16 Zofran IV 4 mg Q4H PRN Administration Nausea And Vomiting
[2018-05-22] MEDS: BROVANA NEBU IH SCH ×3 (09:15→19:32)
[2018-05-22] MEDS: PULMICORT IH SCH ×3 (09:16→19:31)
[2018-05-22] MEDS: COZAAR PO SCH (09:17)
[2018-05-22] MEDS: LOPRESSOR PO SCH ×2 (09:17→21:42)
[2018-05-22] MEDS: NEURONTIN PO SCH ×3 (09:18→21:42)
[2018-05-22] MEDS: XANAX PO PRN (11:25)
--- NOTE | 2018-05-22 12:03 | Progress Note ---
Assessment and Plan Pt feeling well. no compl Abd soft, non tender eval appreciated cystogram neg stable scheduled for f/u CT on Friday Selected Entries 05/22/18 07:21 Temperature 98.1 F Pulse Rate 101 H Respiratory 18 Rate Blood Pressure 121/65 Laboratory Tests 05/22/18 05:35 Sodium 137 Potassium 4.0 Chloride 101.1 Carbon Dioxide 28 BUN 12 Creatinine 0.2 L Glucose 115 H Objective Vital Signs - 12hr 05/22/18 05/22/18 05:32 07:21 Temperature 97.9 F 98.1 F Pulse Rate 100 H 101 H Respiratory 18 18 Rate Blood Pressure 138/74 121/65 O2 Sat by Pulse 98 95 Oximetry - Labs 05/21/18 07:20 05/22/18 05:35 Diabetes panel 05/22/18 Range/Units 05:35 Sodium 137 (137-145) mmol/L Potassium 4.0 (3.6-5.0) mmol/L Chloride 101.1 (98-107) mmol/L Carbon Dioxide 28 (22-30) mmol/L BUN 12 (7-17) mg/dL Creatinine 0.2 L (0.7-1.2) mg/dL Glucose 115 H (65-100) mg/dL Calcium 8.3 L (8.4-10.2) mg/dL Calcium panel 05/22/18 Range/Units 05:35 Calcium 8.3 L (8.4-10.2) mg/dL Phosphorus 2.70 (2.5-4.5) mg/dL Pituitary panel 05/22/18 Range/Units 05:35 Sodium 137 (137-145) mmol/L Potassium 4.0 (3.6-5.0) mmol/L Chloride 101.1 (98-107) mmol/L Carbon Dioxide 28 (22-30) mmol/L BUN 12 (7-17) mg/dL Creatinine 0.2 L (0.7-1.2) mg/dL Glucose 115 H (65-100) mg/dL Calcium 8.3 L (8.4-10.2) mg/dL Adrenal panel 05/22/18 Range/Units 05:35 Sodium 137 (137-145) mmol/L Potassium 4.0 (3.6-5.0) mmol/L Chloride 101.1 (98-107) mmol/L Carbon Dioxide 28 (22-30) mmol/L BUN 12 (7-17) mg/dL Creatinine 0.2 L (0.7-1.2) mg/dL Glucose 115 H (65-100) mg/dL Calcium 8.3 L (8.4-10.2) mg/dL
--- NOTE | 2018-05-22 15:55 | Progress Note ---
Assessment and Plan /Sepsis Etiology secondary to gangrenous and perforated appendix causing intra- abdominal/pelvic abscess. Patient is status post exploratory laparotomy with appendectomy and evacuation of pelvic abscess. Now off antibiotics and noted ID signed off. No fever off antibiotics. 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 Untreated. Outpatient follow-up. /Accel Hypertension. continue Cozaar to 100mg. Cont. Hydralazine prn. /Diarrhea: s/p lmodium prn x 1 /Tachycardia: secondary to dehydration and deconditioning. Fluids to be given and also started Low dose BB. /COPD. Compensated. nebs as needed /Neurofibromatosis: outpt follow up /Tobacco abuse. Patient counseled on smoking cessation FOR 15 MINS, Patient verbalized understanding and will think about it. /Severe protein calorie malnutrition; vp client services consulted. continue with TPN Disposition - when cleared by surgery Brief history: The patient is a 57-year-old female with hypertension, neurofibromatosis, hepatitis C, COPD, nicotine dependence presented to the emergency room on 04/18/18 with complaints of abdominal pain going on for [address] scan obtained in the emergency room revealed a ruptured appendix with associated intra-abdominal abscess. General surgery was consulted and the patient underwent an emergent exploratory laparotomy with evacuation of pelvic abscess. She was noted to have a gangrenous, perforated appendix eroding including into the small bowel. As per the op note, the abscess could not be drained as the entire abscess and inflammatory process had trapped the small bowel, which was mobilized and she underwent an ileocolic anastomosis. The patient went back to the OR on 04/25/18 for drain dislodgment. Surgical cultures growing ECOLI and beta hemolytic strep group C, ester albicans and enteroccocus faecium. Per surgery considering plan to transfer to LTAC * pt must continue on current TPN regimen and sandostatin-pt refused the later due to diarrhea * Continue local wd care * Surgical culture grew Ecoli and ester * If pt begins experiencing RLQ abd pain, Drain must be re-placed on low con tinues suction * repeat CT of abd & pelvis with PO contrast to be scheduled for Friday * Pt needs to remain NPO except for ice chips, meds and popsicles until the results of her CT on Friday05/25/18 * Pt may have retention sutures removed after Friday * CT abdome: 05/18/18- Still shows minimal drainage, per surgery will repeat in a week * Insurance denies LTAC, recommends SNF. Both surgeon and Patient believe SNF is the wrong place * Urology was consulted for possible entro-vesico fistula due to the color of the urine, cystogram was normal. Hospitalist Physical VITAL SIGNS: Reviewed. GENERAL: The patient appeared well nourished and normally developed. Cachectic. Vital signs as documented. Temporal wasting noted HEAD: No signs of head trauma. marked tempral wasting EYES: Pupils are equal. Extraocular motions intact. EARS: Hearing grossly intact. MOUTH: Oropharynx is normal. NECK: No adenopathy, no JVD. CHEST: Chest with clear breath sounds bilaterally. No wheezes, rales, or rhonchi. CARDIAC: Regular rate and rhythm. S1 and S2, without murmurs, gallops, or rubs. VASCULAR: No Edema. Peripheral pulses normal and equal in all extremities. ABDOMEN: Soft, midly distended, some tenderness. bilateral drain noted. hypoactive BS No rebound or guarding, and no masses palpated. MUSCULOSKELETAL: Good range of motion of all major joints. Extremities without clubbing, cyanosis or edema. NEUROLOGIC EXAM: Alert and oriented x 3. No focal sensory or strength deficits. Speech normal. Follows commands. PSYCHIATRIC: Mood normal. SKIN: neurofibromatosis lesions on face Subjective Date of service: 05/22/18 Principal diagnosis: Sepsis; Ex-lap appendectomy and evacuation of pelvic abscess; Peritonitis Interval history: Patient seen and examined this am with nursing staff. No diarrhea today, But still with nausea and mild abdominal pain. Objective - Constitutional Vitals: Vital Signs - 12hr 05/22/18 05/22/18 05:32 07:21 Temperature 97.9 F 98.1 F Pulse Rate 100 H 101 H Respiratory 18 18 Rate Blood Pressure 138/74 121/65 O2 Sat by Pulse 98 95 Oximetry - Labs CBC & Chem 7: 05/21/18 07:20 05/24/18 05:40 Labs: Abnormal lab results 05/21/18 05/22/18 05/22/18 Range/Units 18:17 00:10 05:33 Creatinine (0.7-1.2) mg/dL Glucose (65-100) mg/dL POC Glucose 134 H 127 H 135 H (70-105) Calcium (8.4-10.2) mg/dL 05/22/18 05/22/18 Range/Units 05:35 11:31 Creatinine 0.2 L (0.7-1.2) mg/dL Glucose 115 H (65-100) mg/dL POC Glucose 171 H (70-105) Calcium 8.3 L (8.4-10.2) mg/dL
[2018-05-22] MEDS ORDERED: INTRALIPID 20% 250 ML IV SCH (20:00)
[2018-05-22] MEDS ORDERED: TPN ADULT 1,800 ML IV SCH (20:00)
[2018-05-22] MEDS: REMERON PO SCH (21:42)
[2018-05-23] MEDS: XANAX PO PRN (00:27)
[2018-05-23] MEDS: DILAUDID IV PRN ×4 (03:39→20:01)
[2018-05-23] MEDS: ZOFRAN IV PRN ×2 (06:22→11:12)
[2018-05-23 06:51] LABS: BUN/Creatinine Ratio 60; Blood Urea Nitrogen 12 mg/dL (7-17); Calcium 8.2 mg/dL (8.4-10.2); Hemolysis Index 1
[2018-05-23] MEDS: BROVANA NEBU IH SCH ×2 (08:03→19:52)
[2018-05-23] MEDS: PULMICORT IH SCH ×2 (08:03→19:52)
[2018-05-23] MEDS: COZAAR PO SCH (08:59)
[2018-05-23] MEDS: NEURONTIN PO SCH ×3 (08:59→20:01)
[2018-05-23] MEDS: LOPRESSOR PO SCH ×2 (08:59→21:53)
[2018-05-23] MEDS: DURAGESIC TD SCH (11:12)
--- NOTE | 2018-05-23 12:50 | Progress Note ---
Assessment and Plan Pt feeling well. no abd pain. no compl Abd - drain clamped. abd soft, non tender stable for f/u CT Friday Objective Vital Signs - 12hr 05/23/18 05/23/18 05/23/18 03:37 03:39 07:00 Temperature 98.8 F 98 F Pulse Rate 96 H 103 H Pulse Rate [ Anterior Bilateral Throughout] Respiratory 20 20 20 Rate Respiratory Rate [Anterior Bilateral Throughout] Blood Pressure Blood Pressure 148/77 146/79 [Left] O2 Sat by Pulse 98 Oximetry 05/23/18 05/23/18 05/23/18 07:09 08:00 09:00 Temperature 98.0 F Pulse Rate Pulse Rate [ 103 H Anterior Bilateral Throughout] Respiratory 20 20 Rate Respiratory 18 Rate [Anterior Bilateral Throughout] Blood Pressure 146/79 Blood Pressure [Left] O2 Sat by Pulse Oximetry 05/23/18 05/23/18 05/23/18 09:30 11:12 12:00 Temperature 98 F Pulse Rate 90 Pulse Rate [ Anterior Bilateral Throughout] Respiratory 20 20 20 Rate Respiratory Rate [Anterior Bilateral Throughout] Blood Pressure Blood Pressure 150/80 [Left] O2 Sat by Pulse 97 Oximetry - Labs 05/21/18 07:20 05/23/18 05:25 Diabetes panel 05/23/18 Range/Units 05:25 Sodium 135 L (137-145) mmol/L Potassium 4.1 (3.6-5.0) mmol/L Chloride 100.1 (98-107) mmol/L Carbon Dioxide 28 (22-30) mmol/L BUN 12 (7-17) mg/dL Creatinine 0.2 L (0.7-1.2) mg/dL Glucose 113 H (65-100) mg/dL Calcium 8.2 L (8.4-10.2) mg/dL Calcium panel 05/23/18 Range/Units 05:25 Calcium 8.2 L (8.4-10.2) mg/dL Phosphorus 3.40 D (2.5-4.5) mg/dL Pituitary panel 05/23/18 Range/Units 05:25 Sodium 135 L (137-145) mmol/L Potassium 4.1 (3.6-5.0) mmol/L Chloride 100.1 (98-107) mmol/L Carbon Dioxide 28 (22-30) mmol/L BUN 12 (7-17) mg/dL Creatinine 0.2 L (0.7-1.2) mg/dL Glucose 113 H (65-100) mg/dL Calcium 8.2 L (8.4-10.2) mg/dL Adrenal panel 05/23/18 Range/Units 05:25 Sodium 135 L (137-145) mmol/L Potassium 4.1 (3.6-5.0) mmol/L Chloride 100.1 (98-107) mmol/L Carbon Dioxide 28 (22-30) mmol/L BUN 12 (7-17) mg/dL Creatinine 0.2 L (0.7-1.2) mg/dL Glucose 113 H (65-100) mg/dL Calcium 8.2 L (8.4-10.2) mg/dL
--- NOTE | 2018-05-23 16:09 | Progress Note ---
Assessment and Plan /Sepsis Etiology secondary to gangrenous and perforated appendix causing intra- abdominal/pelvic abscess. Patient is status post exploratory laparotomy with appendectomy and evacuation of pelvic abscess. Now off antibiotics and noted ID signed off. No fever off antibiotics. 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 Untreated. Outpatient follow-up. /Accel Hypertension. continue Cozaar to 100mg. Cont. Hydralazine prn. /Diarrhea: s/p lmodium prn x 1 /Tachycardia: secondary to dehydration and deconditioning. Fluids to be given and also started Low dose BB. /COPD. Compensated. nebs as needed /Neurofibromatosis: outpt follow up /Tobacco abuse. Patient counseled on smoking cessation FOR 15 MINS, Patient verbalized understanding and will think about it. /Severe protein calorie malnutrition; set off blocker consulted. continue with TPN Disposition - when cleared by surgery Brief history: The patient is a 57-year-old female with hypertension, neurofibromatosis, hepatitis C, COPD, nicotine dependence presented to the emergency room on 04/18/18 with complaints of abdominal pain going on for [address] scan obtained in the emergency room revealed a ruptured appendix with associated intra-abdominal abscess. General surgery was consulted and the patient underwent an emergent exploratory laparotomy with evacuation of pelvic abscess. She was noted to have a gangrenous, perforated appendix eroding including into the small bowel. As per the op note, the abscess could not be drained as the entire abscess and inflammatory process had trapped the small bowel, which was mobilized and she underwent an ileocolic anastomosis. The patient went back to the OR on 04/25/18 for drain dislodgment. Surgical cultures growing ECOLI and beta hemolytic strep group C, ester albicans and enteroccocus faecium. Per surgery considering plan to transfer to LTAC * pt must continue on current TPN regimen and sandostatin-pt refused the later due to diarrhea * Continue local wd care * Surgical culture grew Ecoli and ester * If pt begins experiencing RLQ abd pain, Drain must be re-placed on low con tinues suction * repeat CT of abd & pelvis with PO contrast to be scheduled for Friday * Pt needs to remain NPO except for ice chips, meds and popsicles until the results of her CT on Friday05/25/18 * Pt may have retention sutures removed after Friday * CT abdome: 05/18/18- Still shows minimal drainage, per surgery will repeat in a week * Insurance denies LTAC, recommends SNF. Both surgeon and Patient believe SNF is the wrong place * Urology was consulted for possible entro-vesico fistula due to the color of the urine, cystogram was normal. Hospitalist Physical VITAL SIGNS: Reviewed. GENERAL: The patient appeared well nourished and normally developed. Cachectic. Vital signs as documented. Temporal wasting noted HEAD: No signs of head trauma. marked tempral wasting EYES: Pupils are equal. Extraocular motions intact. EARS: Hearing grossly intact. MOUTH: Oropharynx is normal. NECK: No adenopathy, no JVD. CHEST: Chest with clear breath sounds bilaterally. No wheezes, rales, or rhonchi. CARDIAC: Regular rate and rhythm. S1 and S2, without murmurs, gallops, or rubs. VASCULAR: No Edema. Peripheral pulses normal and equal in all extremities. ABDOMEN: Soft, midly distended, some tenderness. bilateral drain noted. hypoactive BS No rebound or guarding, and no masses palpated. MUSCULOSKELETAL: Good range of motion of all major joints. Extremities without clubbing, cyanosis or edema. NEUROLOGIC EXAM: Alert and oriented x 3. No focal sensory or strength deficits. Speech normal. Follows commands. PSYCHIATRIC: Mood normal. SKIN: neurofibromatosis lesions on face Subjective Date of service: 05/23/18 Principal diagnosis: Sepsis; Ex-lap appendectomy and evacuation of pelvic abscess; Peritonitis Interval history: Patient seen and examined this am with nursing staff. States feels better. abdominal pain improved Objective - Constitutional Vitals: Vital Signs - 12hr 05/23/18 05/23/18 05/23/18 07:00 07:09 08:00 Temperature 98 F 98.0 F Pulse Rate 103 H Pulse Rate [ 103 H Anterior Bilateral Throughout] Respiratory 20 20 Rate Respiratory Rate [Abdomen] Respiratory 18 Rate [Anterior Bilateral Throughout] Blood Pressure 146/79 Blood Pressure 146/79 [Left] O2 Sat by Pulse 98 Oximetry 05/23/18 05/23/18 05/23/18 09:00 09:30 11:12 Temperature Pulse Rate Pulse Rate [ Anterior Bilateral Throughout] Respiratory 20 20 20 Rate Respiratory 20 Rate [Abdomen] Respiratory Rate [Anterior Bilateral Throughout] Blood Pressure Blood Pressure [Left] O2 Sat by Pulse Oximetry 05/23/18 05/23/18 05/23/18 12:00 12:12 14:53 Temperature 98 F Pulse Rate 90 Pulse Rate [ Anterior Bilateral Throughout] Respiratory 20 20 20 Rate Respiratory Rate [Abdomen] Respiratory Rate [Anterior Bilateral Throughout] Blood Pressure Blood Pressure 150/80 [Left] O2 Sat by Pulse 97 Oximetry 05/23/18 05/23/18 15:00 15:19 Temperature 97.5 F L Pulse Rate 83 Pulse Rate [ Anterior Bilateral Throughout] Respiratory 18 Rate Respiratory Rate [Abdomen] Respiratory Rate [Anterior Bilateral Throughout] Blood Pressure 103/58 Blood Pressure [Left] O2 Sat by Pulse Oximetry - Labs CBC & Chem 7: 05/21/18 07:20 05/24/18 05:40 Labs: Abnormal lab results 05/23/18 05/23/18 05/23/18 Range/Units 00:29 05:25 11:30 Sodium 135 L (137-145) mmol/L Creatinine 0.2 L (0.7-1.2) mg/dL Glucose 113 H (65-100) mg/dL POC Glucose 157 H 141 H (70-105) Calcium 8.2 L (8.4-10.2) mg/dL
--- NOTE | 2018-05-23 19:52 | Progress Note ---
Assessment and Plan Patient awake and weak. Resting on room air at this time. O2 saturation 97%.No complaint of chest pain, shortness of breath or cough. - Patient Problems (1) Appendicitis with perforation Current Visit: Yes Status: Acute Plan to address problem: S/p resection of perforated appendex. (2) Sepsis Current Visit: Yes Status: Acute Qualifiers: Sepsis type: Escherichia coli Qualified Code(s): A41.51 - Sepsis due to Escherichia coli [E. coli] Plan to address problem: Resolved. Patient off the antibiotics. (3) Acute metabolic encephalopathy Current Visit: No Status: Acute Plan to address problem: Appears improved. Management as per primary care. (4) Marijuana abuse Current Visit: No Status: Acute Plan to address problem: Counselled not use marijuana. Subjective Date of service: 05/23/18 Principal diagnosis: Sepsis; Ex-lap appendectomy and evacuation of pelvic abscess; Peritonitis Interval history: Patient awake and weak. Resting on room air at this time. O2 saturation 97%.No complaint of chest pain, shortness of breath or cough. Objective Vital Signs - 12hr 05/23/18 05/23/18 05/23/18 08:00 09:00 09:30 Temperature Pulse Rate Pulse Rate [ 103 H Anterior Bilateral Throughout] Respiratory 20 20 Rate Respiratory 20 Rate [Abdomen] Respiratory 18 Rate [Anterior Bilateral Throughout] Blood Pressure Blood Pressure [Left] O2 Sat by Pulse Oximetry 05/23/18 05/23/18 05/23/18 11:12 12:00 12:12 Temperature 98 F Pulse Rate 90 Pulse Rate [ Anterior Bilateral Throughout] Respiratory 20 20 20 Rate Respiratory Rate [Abdomen] Respiratory Rate [Anterior Bilateral Throughout] Blood Pressure Blood Pressure 150/80 [Left] O2 Sat by Pulse 97 Oximetry 05/23/18 05/23/18 05/23/18 14:53 15:00 15:19 Temperature 97.5 F L Pulse Rate 83 Pulse Rate [ Anterior Bilateral Throughout] Respiratory 20 18 Rate Respiratory Rate [Abdomen] Respiratory Rate [Anterior Bilateral Throughout] Blood Pressure 103/58 Blood Pressure [Left] O2 Sat by Pulse Oximetry 05/23/18 18:27 Temperature 97.5 F L Pulse Rate 83 Pulse Rate [ Anterior Bilateral Throughout] Respiratory 18 Rate Respiratory Rate [Abdomen] Respiratory Rate [Anterior Bilateral Throughout] Blood Pressure Blood Pressure 103/58 [Left] O2 Sat by Pulse 97 Oximetry Constitutional: no acute distress, alert, other (chronically ill looking this middle aged CF, normocephalic) Eyes: non-icteric ENT: oropharynx moist, other (Mallampati 2) Neck: supple, no lymphadenopathy, no JVD Effort: mildly labored Ascultation: Bilateral: diminished breath sounds, rhonchi (scant in bases) Percussion: Bilateral: not dull Cardiovascular: regular rate and rhythm Gastrointestinal: normoactive bowel sounds, soft, tender (bhargav-op site), non- distended, other (Drain in place with non-bloody effluent) Integumentary: other (poor turgor; ? neurofibromatous nodules over body) Extremities: no cyanosis, no edema, pink and warm, pulses normal Neurologic: normal mental status, non-focal exam, pupils equal and round, motor strength normal and Psychiatric: mood appropriate, anxious CBC and BMP: 05/21/18 07:20 05/23/18 05:25 ABG, PT/INR, D-dimer: ABG POC ABG pH 7.367 (7.35-7.45) 04/19/18 00:19 POC ABG pCO2 36.8 (35-45) 04/19/18 00:19 POC ABG pO2 84 (80-105) 04/19/18 00:19 POC ABG HCO3 21.1 04/19/18 00:19 POC ABG Total CO2 22 04/19/18 00:19 POC ABG O2 Sat 96 04/19/18 00:19 PT/INR, D-dimer PT 15.3 Sec. (12.2-14.9) H 04/22/18 05:19 INR 1.17 (0.87-1.13) H 04/22/18 05:19 Abnormal lab findings: Abnormal Labs 04/18/18 04/18/18 04/18/18 14:30 14:30 14:30 WBC 18.6 H RBC Hgb Hct MCH RDW Lymph % (Auto) [place] % (Auto) Lymph # Seg Neutrophils % Seg Neuts % (Manual) 79.0 H Lymphocytes % (Manual) 4.0 L Seg Neutrophils # Man 14.7 H Lymphocytes # (Manual) 0.7 L PT 16.3 H INR 1.27 H VBG pH Sodium 121 L Potassium 3.0 L Chloride 78.0 L Carbon Dioxide BUN Creatinine 0.5 L Glucose 110 H POC Glucose Lactic Acid Calcium Phosphorus Magnesium Total Bilirubin 1.30 H AST 42 H Total Protein Albumin 3.1 L Prealbumin Crossmatch 04/18/18 04/18/18 04/18/18 14:30 14:30 23:59 WBC RBC Hgb Hct MCH RDW 15.8 H Lymph % (Auto) [place] % (Auto) Lymph # Seg Neutrophils % Seg Neuts % (Manual) 78.0 H Lymphocytes % (Manual) 6.0 L Seg Neutrophils # Man Lymphocytes # (Manual) 0.5 L PT INR VBG pH 7.439 H Sodium Potassium Chloride Carbon Dioxide BUN Creatinine Glucose POC Glucose Lactic Acid 3.60 H* Calcium Phosphorus Magnesium Total Bilirubin AST Total Protein Albumin Prealbumin Crossmatch 04/18/18 04/19/18 04/19/18 23:59 05:19 05:19 WBC 15.0 H RBC Hgb Hct MCH RDW 15.3 H Lymph % (Auto) [place] % (Auto) Lymph # Seg Neutrophils % Seg Neuts % (Manual) Lymphocytes % (Manual) 5.0 L Seg Neutrophils # Man 8.3 H Lymphocytes # (Manual) 0.8 L PT INR VBG pH Sodium 130 L D 133 L Potassium 3.5 L 3.3 L Chloride Carbon Dioxide 20 L D BUN Creatinine 0.5 L 0.6 L Glucose 140 H 115 H POC Glucose Lactic Acid Calcium 7.5 L 7.4 L Phosphorus Magnesium Total Bilirubin AST Total Protein 4.4 L D 4.1 L Albumin 2.0 L 1.9 L Prealbumin Crossmatch 04/19/18 04/19/18 04/20/18 05:19 13:05 05:18 WBC RBC Hgb Hct MCH RDW Lymph % (Auto) [place] % (Auto) Lymph # Seg Neutrophils % Seg Neuts % (Manual) Lymphocytes % (Manual) Seg Neutrophils # Man Lymphocytes # (Manual) PT 19.4 H 17.4 H INR 1.59 H 1.38 H VBG pH Sodium Potassium Chloride Carbon Dioxide BUN Creatinine Glucose POC Glucose Lactic Acid Calcium Phosphorus Magnesium Total Bilirubin AST Total Protein Albumin Prealbumin Crossmatch See Detail 04/20/18 04/20/18 04/21/18 13:47 13:47 04:52 WBC RBC 3.29 L 3.10 L Hgb 9.6 L 8.8 L Hct 28.1 L D 26.6 L MCH RDW 15.3 H 15.4 H Lymph % (Auto) 5.6 L [place] % (Auto) Lymph # 0.4 L Seg Neutrophils % 87.3 H Seg Neuts % (Manual) Lymphocytes % (Manual) Seg Neutrophils # Man Lymphocytes # (Manual) PT INR VBG pH Sodium Potassium Chloride Carbon Dioxide BUN Creatinine 0.3 L Glucose 102 H POC Glucose Lactic Acid Calcium 8.0 L Phosphorus Magnesium Total Bilirubin AST Total Protein Albumin Prealbumin Crossmatch 04/21/18 04/22/18 04/22/18 04:52 05:19 05:19 WBC RBC 3.64 L Hgb Hct MCH RDW Lymph % (Auto) 8.5 L [place] % (Auto) 9.9 H Lymph # 0.6 L Seg Neutrophils % 81.0 H Seg Neuts % (Manual) Lymphocytes % (Manual) Seg Neutrophils # Man Lymphocytes # (Manual) PT 15.3 H INR 1.17 H VBG pH Sodium Potassium 3.2 L Chloride Carbon Dioxide BUN Creatinine 0.3 L Glucose POC Glucose Lactic Acid Calcium 7.6 L Phosphorus Magnesium Total Bilirubin AST Total Protein Albumin Prealbumin Crossmatch 04/22/18 04/24/18 04/24/18 05:19 07:19 07:19 WBC RBC Hgb Hct MCH RDW Lymph % (Auto) [place] % (Auto) Lymph # Seg Neutrophils % Seg Neuts % (Manual) Lymphocytes % (Manual) Seg Neutrophils # Man Lymphocytes # (Manual) PT INR VBG pH Sodium Potassium 3.4 L 2.9 L* Chloride Carbon Dioxide BUN Creatinine 0.3 L 0.3 L Glucose 103 H POC Glucose Lactic Acid Calcium 7.7 L 7.5 L Phosphorus Magnesium 1.60 L Total Bilirubin AST Total Protein 4.3 L Albumin 2.2 L Prealbumin Crossmatch 04/24/18 04/25/18 04/25/18 07:23 06:28 06:28 WBC RBC Hgb Hct MCH RDW 15.3 H 15.9 H Lymph % (Auto) 10.1 L [place] % (Auto) Lymph # 0.8 L Seg Neutrophils % 80.6 H Seg Neuts % (Manual) Lymphocytes % (Manual) 9.0 L Seg Neutrophils # Man Lymphocytes # (Manual) 0.7 L PT INR VBG pH Sodium Potassium 3.0 L Chloride Carbon Dioxide BUN 5 L Creatinine 0.2 L Glucose 108 H POC Glucose Lactic Acid Calcium 7.4 L Phosphorus Magnesium Total Bilirubin AST Total Protein 4.6 L Albumin 2.5 L Prealbumin Crossmatch 04/25/18 04/26/18 04/26/18 06:28 05:45 05:45 WBC 11.9 H RBC Hgb Hct MCH RDW 16.2 H Lymph % (Auto) [place] % (Auto) Lymph # Seg Neutrophils % Seg Neuts % (Manual) Lymphocytes % (Manual) Seg Neutrophils # Man Lymphocytes # (Manual) PT INR VBG pH Sodium Potassium Chloride Carbon Dioxide BUN 5 L Creatinine 0.2 L Glucose 119 H POC Glucose Lactic Acid Calcium 7.7 L Phosphorus 2.00 L 2.20 L Magnesium Total Bilirubin AST Total Protein Albumin Prealbumin Crossmatch 04/27/18 04/28/18 04/28/18 05:33 06:00 06:00 WBC 11.2 H RBC Hgb Hct MCH RDW 16.0 H Lymph % (Auto) [place] % (Auto) Lymph # Seg Neutrophils % Seg Neuts % (Manual) 92.0 H Lymphocytes % (Manual) 5.0 L Seg Neutrophils # Man 10.3 H Lymphocytes # (Manual) 0.6 L PT INR VBG pH Sodium Potassium 3.4 L 3.1 L Chloride Carbon Dioxide BUN 6 L 4 L Creatinine 0.2 L 0.2 L Glucose 119 H POC Glucose Lactic Acid Calcium 7.5 L 7.1 L Phosphorus 2.00 L 2.10 L Magnesium 1.50 L Total Bilirubin AST Total Protein 4.3 L Albumin 2.1 L Prealbumin Crossmatch 04/29/18 04/29/18 04/29/18 05:18 05:18 17:49 WBC 12.0 H RBC Hgb Hct MCH RDW 16.0 H Lymph % (Auto) [place] % (Auto) Lymph # Seg Neutrophils % Seg Neuts % (Manual) 87.0 H Lymphocytes % (Manual) 10.0 L Seg Neutrophils # Man 10.4 H Lymphocytes # (Manual) PT INR VBG pH Sodium 135 L Potassium Chloride Carbon Dioxide BUN Creatinine 0.2 L Glucose 120 H POC Glucose 108 H Lactic Acid Calcium 7.5 L Phosphorus Magnesium Total Bilirubin AST Total Protein Albumin Prealbumin Crossmatch 04/30/18 04/30/18 04/30/18 00:03 05:18 05:41 WBC RBC Hgb Hct MCH RDW Lymph % (Auto) [place] % (Auto) Lymph # Seg Neutrophils % Seg Neuts % (Manual) Lymphocytes % (Manual) Seg Neutrophils # Man Lymphocytes # (Manual) PT INR VBG pH Sodium 133 L Potassium Chloride Carbon Dioxide BUN Creatinine 0.2 L Glucose 119 H POC Glucose 112 H 110 H Lactic Acid Calcium 7.5 L Phosphorus Magnesium Total Bilirubin AST Total Protein Albumin Prealbumin Crossmatch 04/30/18 05/01/18 05/01/18 05:41 00:39 04:45 WBC RBC 3.60 L Hgb Hct MCH RDW 16.0 H Lymph % (Auto) [place] % (Auto) Lymph # Seg Neutrophils % Seg Neuts % (Manual) 88.0 H Lymphocytes % (Manual) 8.0 L Seg Neutrophils # Man Lymphocytes # (Manual) 0.7 L PT INR VBG pH Sodium 132 L Potassium Chloride Carbon Dioxide BUN Creatinine 0.2 L Glucose 101 H POC Glucose 119 H Lactic Acid Calcium 7.6 L Phosphorus Magnesium Total Bilirubin AST Total Protein Albumin Prealbumin Crossmatch 05/01/18 05/01/18 05/01/18 06:30 16:09 23:42 WBC RBC Hgb Hct MCH RDW Lymph % (Auto) [place] % (Auto) Lymph # Seg Neutrophils % Seg Neuts % (Manual) Lymphocytes % (Manual) Seg Neutrophils # Man Lymphocytes # (Manual) PT INR VBG pH Sodium Potassium Chloride Carbon Dioxide BUN Creatinine Glucose POC Glucose 126 H 160 H 113 H Lactic Acid Calcium Phosphorus Magnesium Total Bilirubin AST Total Protein Albumin Prealbumin Crossmatch 05/02/18 05/02/18 05/02/18 04:55 06:41 11:53 WBC RBC Hgb Hct MCH RDW Lymph % (Auto) [place] % (Auto) Lymph # Seg Neutrophils % Seg Neuts % (Manual) Lymphocytes % (Manual) Seg Neutrophils # Man Lymphocytes # (Manual) PT INR VBG pH Sodium 134 L Potassium Chloride Carbon Dioxide BUN Creatinine 0.2 L Glucose 113 H POC Glucose 146 H 113 H Lactic Acid Calcium 7.4 L Phosphorus Magnesium Total Bilirubin AST Total Protein Albumin Prealbumin Crossmatch 05/02/18 05/02/18 05/03/18 17:33 23:37 08:46 WBC RBC 3.36 L Hgb 9.7 L Hct 28.7 L MCH RDW 16.3 H Lymph % (Auto) [place] % (Auto) 10.0 H Lymph # Seg Neutrophils % Seg Neuts % (Manual) Lymphocytes % (Manual) Seg Neutrophils # Man Lymphocytes # (Manual) PT INR VBG pH Sodium Potassium Chloride Carbon Dioxide BUN Creatinine Glucose POC Glucose 106 H 123 H Lactic Acid Calcium Phosphorus Magnesium Total Bilirubin AST Total Protein Albumin Prealbumin Crossmatch 05/03/18 05/03/18 05/04/18 11:54 12:15 06:59 WBC RBC Hgb Hct MCH RDW Lymph % (Auto) [place] % (Auto) Lymph # Seg Neutrophils % Seg Neuts % (Manual) Lymphocytes % (Manual) Seg Neutrophils # Man Lymphocytes # (Manual) PT INR VBG pH Sodium 136 L Potassium Chloride Carbon Dioxide BUN Creatinine 0.2 L Glucose 131 H POC Glucose 109 H 161 H Lactic Acid Calcium 7.6 L Phosphorus Magnesium Total Bilirubin AST Total Protein Albumin Prealbumin Crossmatch 05/04/18 05/04/18 05/04/18 07:03 08:02 11:10 WBC RBC 3.52 L Hgb Hct 29.8 L MCH RDW 16.2 H Lymph % (Auto) [place] % (Auto) 8.6 H Lymph # Seg Neutrophils % Seg Neuts % (Manual) Lymphocytes % (Manual) Seg Neutrophils # Man Lymphocytes # (Manual) PT INR VBG pH Sodium 135 L Potassium Chloride Carbon Dioxide BUN Creatinine 0.2 L Glucose 160 H POC Glucose 106 H Lactic Acid Calcium 7.7 L Phosphorus Magnesium Total Bilirubin AST Total Protein Albumin Prealbumin Crossmatch 05/04/18 05/05/18 05/05/18 23:38 11:28 16:55 WBC RBC Hgb Hct MCH RDW Lymph % (Auto) [place] % (Auto) Lymph # Seg Neutrophils % Seg Neuts % (Manual) Lymphocytes % (Manual) Seg Neutrophils # Man Lymphocytes # (Manual) PT INR VBG pH Sodium Potassium Chloride Carbon Dioxide BUN Creatinine Glucose POC Glucose 121 H 119 H 108 H Lactic Acid Calcium Phosphorus Magnesium Total Bilirubin AST Total Protein Albumin Prealbumin Crossmatch 05/05/18 05/06/18 05/06/18 Unknown 05:35 16:40 WBC RBC Hgb Hct MCH RDW Lymph % (Auto) [place] % (Auto) Lymph # Seg Neutrophils % Seg Neuts % (Manual) Lymphocytes % (Manual) Seg Neutrophils # Man Lymphocytes # (Manual) PT INR VBG pH Sodium 135 L 136 L Potassium Chloride 97.9 L Carbon Dioxide BUN Creatinine 0.2 L 0.2 L Glucose 119 H POC Glucose 133 H Lactic Acid Calcium 8.0 L 8.1 L Phosphorus Magnesium Total Bilirubin AST 46 H Total Protein 5.5 L Albumin 2.7 L Prealbumin Crossmatch 05/06/18 05/07/18 05/07/18 22:07 05:38 05:40 WBC RBC Hgb Hct MCH RDW Lymph % (Auto) [place] % (Auto) Lymph # Seg Neutrophils % Seg Neuts % (Manual) Lymphocytes % (Manual) Seg Neutrophils # Man Lymphocytes # (Manual) PT INR VBG pH Sodium 133 L Potassium Chloride Carbon Dioxide BUN Creatinine 0.2 L Glucose POC Glucose 168 H 107 H Lactic Acid Calcium 8.2 L Phosphorus Magnesium Total Bilirubin AST Total Protein Albumin Prealbumin Crossmatch 05/07/18 05/07/18 05/08/18 11:56 18:04 05:38 WBC RBC Hgb Hct MCH RDW 16.3 H Lymph % (Auto) [place] % (Auto) 7.7 H Lymph # Seg Neutrophils % Seg Neuts % (Manual) Lymphocytes % (Manual) Seg Neutrophils # Man Lymphocytes # (Manual) PT INR VBG pH Sodium Potassium Chloride Carbon Dioxide BUN Creatinine Glucose POC Glucose 145 H 125 H Lactic Acid Calcium Phosphorus Magnesium Total Bilirubin AST Total Protein Albumin Prealbumin Crossmatch 05/08/18 05/08/18 05/08/18 05:38 11:35 16:23 WBC RBC Hgb Hct MCH RDW Lymph % (Auto) [place] % (Auto) Lymph # Seg Neutrophils % Seg Neuts % (Manual) Lymphocytes % (Manual) Seg Neutrophils # Man Lymphocytes # (Manual) PT INR VBG pH Sodium 135 L Potassium Chloride Carbon Dioxide BUN Creatinine 0.2 L Glucose POC Glucose 118 H 131 H Lactic Acid Calcium Phosphorus Magnesium Total Bilirubin AST Total Protein Albumin Prealbumin Crossmatch 05/08/18 05/09/18 05/09/18 21:40 05:46 06:15 WBC RBC Hgb Hct MCH RDW Lymph % (Auto) [place] % (Auto) Lymph # Seg Neutrophils % Seg Neuts % (Manual) Lymphocytes % (Manual) Seg Neutrophils # Man Lymphocytes # (Manual) PT INR VBG pH Sodium 135 L Potassium Chloride 97.5 L Carbon Dioxide BUN Creatinine 0.2 L Glucose POC Glucose 110 H 115 H Lactic Acid Calcium Phosphorus Magnesium Total Bilirubin AST Total Protein Albumin Prealbumin Crossmatch 05/09/18 05/09/18 05/10/18 11:28 23:53 06:22 WBC RBC Hgb Hct MCH RDW Lymph % (Auto) [place] % (Auto) Lymph # Seg Neutrophils % Seg Neuts % (Manual) Lymphocytes % (Manual) Seg Neutrophils # Man Lymphocytes # (Manual) PT INR VBG pH Sodium Potassium Chloride Carbon Dioxide BUN Creatinine Glucose POC Glucose 145 H 132 H 149 H Lactic Acid Calcium Phosphorus Magnesium Total Bilirubin AST Total Protein Albumin Prealbumin Crossmatch 05/10/18 05/10/18 05/11/18 16:14 23:24 05:00 WBC RBC Hgb Hct MCH RDW Lymph % (Auto) [place] % (Auto) Lymph # Seg Neutrophils % Seg Neuts % (Manual) Lymphocytes % (Manual) Seg Neutrophils # Man Lymphocytes # (Manual) PT INR VBG pH Sodium Potassium Chloride Carbon Dioxide BUN Creatinine 0.2 L Glucose 113 H POC Glucose 119 H 119 H Lactic Acid Calcium Phosphorus Magnesium Total Bilirubin AST Total Protein Albumin Prealbumin Crossmatch 05/11/18 05/11/18 05/11/18 05:57 11:23 16:29 WBC RBC Hgb Hct MCH RDW Lymph % (Auto) [place] % (Auto) Lymph # Seg Neutrophils % Seg Neuts % (Manual) Lymphocytes % (Manual) Seg Neutrophils # Man Lymphocytes # (Manual) PT INR VBG pH Sodium Potassium Chloride Carbon Dioxide BUN Creatinine Glucose POC Glucose 173 H 143 H 159 H Lactic Acid Calcium Phosphorus Magnesium Total Bilirubin AST Total Protein Albumin Prealbumin Crossmatch 05/12/18 05/12/18 05/12/18 00:47 06:23 11:21 WBC RBC Hgb Hct MCH RDW Lymph % (Auto) [place] % (Auto) Lymph # Seg Neutrophils % Seg Neuts % (Manual) Lymphocytes % (Manual) Seg Neutrophils # Man Lymphocytes # (Manual) PT INR VBG pH Sodium Potassium Chloride Carbon Dioxide BUN Creatinine Glucose POC Glucose 139 H 136 H 116 H Lactic Acid Calcium Phosphorus Magnesium Total Bilirubin AST Total Protein Albumin Prealbumin Crossmatch 05/12/18 05/12/18 05/12/18 17:19 17:22 22:22 WBC RBC Hgb Hct MCH RDW Lymph % (Auto) [place] % (Auto) Lymph # Seg Neutrophils % Seg Neuts % (Manual) Lymphocytes % (Manual) Seg Neutrophils # Man Lymphocytes # (Manual) PT INR VBG pH Sodium Potassium Chloride Carbon Dioxide BUN Creatinine Glucose POC Glucose 329 H 116 H 124 H Lactic Acid Calcium Phosphorus Magnesium Total Bilirubin AST Total Protein Albumin Prealbumin Crossmatch 05/13/18 05/13/18 05/13/18 18:35 22:25 Unknown WBC RBC Hgb Hct MCH RDW Lymph % (Auto) [place] % (Auto) Lymph # Seg Neutrophils % Seg Neuts % (Manual) Lymphocytes % (Manual) Seg Neutrophils # Man Lymphocytes # (Manual) PT INR VBG pH Sodium 136 L Potassium Chloride 97.8 L Carbon Dioxide BUN Creatinine 0.2 L Glucose POC Glucose 137 H 106 H Lactic Acid Calcium Phosphorus Magnesium Total Bilirubin AST 41 H Total Protein Albumin 3.5 L Prealbumin Crossmatch 05/14/18 05/14/18 05/14/18 06:40 06:40 12:48 WBC RBC 3.48 L Hgb 9.8 L Hct 29.1 L MCH RDW 15.6 H Lymph % (Auto) [place] % (Auto) Lymph # Seg Neutrophils % Seg Neuts % (Manual) Lymphocytes % (Manual) Seg Neutrophils # Man Lymphocytes # (Manual) PT INR VBG pH Sodium Potassium Chloride Carbon Dioxide BUN Creatinine 0.2 L Glucose POC Glucose 113 H Lactic Acid Calcium 8.1 L Phosphorus Magnesium Total Bilirubin AST Total Protein Albumin Prealbumin Crossmatch 05/14/18 05/14/18 05/15/18 17:52 22:04 05:10 WBC RBC Hgb Hct MCH RDW Lymph % (Auto) [place] % (Auto) Lymph # Seg Neutrophils % Seg Neuts % (Manual) Lymphocytes % (Manual) Seg Neutrophils # Man Lymphocytes # (Manual) PT INR VBG pH Sodium 135 L Potassium Chloride Carbon Dioxide BUN Creatinine 0.2 L Glucose POC Glucose 106 H 107 H Lactic Acid Calcium 8.2 L Phosphorus Magnesium Total Bilirubin AST Total Protein Albumin Prealbumin Crossmatch 05/15/18 05/15/18 05/15/18 06:24 11:31 16:47 WBC RBC Hgb Hct MCH RDW Lymph % (Auto) [place] % (Auto) Lymph # Seg Neutrophils % Seg Neuts % (Manual) Lymphocytes % (Manual) Seg Neutrophils # Man Lymphocytes # (Manual) PT INR VBG pH Sodium Potassium Chloride Carbon Dioxide BUN Creatinine Glucose POC Glucose 125 H 133 H 135 H Lactic Acid Calcium Phosphorus Magnesium Total Bilirubin AST Total Protein Albumin Prealbumin Crossmatch 05/16/18 05/16/18 05/16/18 00:13 04:30 05:59 WBC RBC Hgb Hct MCH RDW Lymph % (Auto) [place] % (Auto) Lymph # Seg Neutrophils % Seg Neuts % (Manual) Lymphocytes % (Manual) Seg Neutrophils # Man Lymphocytes # (Manual) PT INR VBG pH Sodium Potassium Chloride Carbon Dioxide BUN Creatinine 0.2 L Glucose POC Glucose 132 H 113 H Lactic Acid Calcium Phosphorus Magnesium Total Bilirubin AST Total Protein Albumin Prealbumin Crossmatch 05/16/18 05/16/18 05/17/18 13:03 18:51 05:06 WBC RBC Hgb Hct MCH RDW Lymph % (Auto) [place] % (Auto) Lymph # Seg Neutrophils % Seg Neuts % (Manual) Lymphocytes % (Manual) Seg Neutrophils # Man Lymphocytes # (Manual) PT INR VBG pH Sodium Potassium Chloride Carbon Dioxide BUN Creatinine Glucose POC Glucose 112 H 111 H 128 H Lactic Acid Calcium Phosphorus Magnesium Total Bilirubin AST Total Protein Albumin Prealbumin Crossmatch 05/17/18 05/17/18 05/18/18 06:07 23:54 07:05 WBC RBC Hgb Hct MCH RDW Lymph % (Auto) [place] % (Auto) Lymph # Seg Neutrophils % Seg Neuts % (Manual) Lymphocytes % (Manual) Seg Neutrophils # Man Lymphocytes # (Manual) PT INR VBG pH Sodium 135 L Potassium Chloride Carbon Dioxide BUN Creatinine 0.2 L Glucose 133 H POC Glucose 120 H 119 H Lactic Acid Calcium Phosphorus Magnesium Total Bilirubin AST Total Protein Albumin Prealbumin Crossmatch 05/18/18 05/18/18 05/18/18 07:43 11:29 16:29 WBC RBC Hgb Hct MCH RDW Lymph % (Auto) [place] % (Auto) Lymph # Seg Neutrophils % Seg Neuts % (Manual) Lymphocytes % (Manual) Seg Neutrophils # Man Lymphocytes # (Manual) PT INR VBG pH Sodium Potassium Chloride Carbon Dioxide BUN Creatinine 0.2 L Glucose 117 H POC Glucose 149 H 108 H Lactic Acid Calcium 8.2 L Phosphorus Magnesium Total Bilirubin AST Total Protein Albumin Prealbumin Crossmatch 05/19/18 05/19/18 05/20/18 23:15 Unknown 05:59 WBC RBC Hgb Hct MCH RDW Lymph % (Auto) [place] % (Auto) Lymph # Seg Neutrophils % Seg Neuts % (Manual) Lymphocytes % (Manual) Seg Neutrophils # Man Lymphocytes # (Manual) PT INR VBG pH Sodium 136 L Potassium Chloride Carbon Dioxide BUN Creatinine 0.2 L Glucose POC Glucose 106 H 114 H Lactic Acid Calcium Phosphorus 4.60 H D Magnesium Total Bilirubin AST Total Protein Albumin Prealbumin Crossmatch 05/20/18 05/20/18 05/20/18 06:25 17:52 23:59 WBC RBC Hgb Hct MCH RDW Lymph % (Auto) [place] % (Auto) Lymph # Seg Neutrophils % Seg Neuts % (Manual) Lymphocytes % (Manual) Seg Neutrophils # Man Lymphocytes # (Manual) PT INR VBG pH Sodium 135 L Potassium Chloride Carbon Dioxide BUN Creatinine 0.2 L Glucose 108 H POC Glucose 118 H 186 H Lactic Acid Calcium 8.3 L Phosphorus Magnesium Total Bilirubin AST Total Protein 5.6 L Albumin 2.9 L Prealbumin 0.113 L Crossmatch 05/21/18 05/21/18 05/21/18 04:40 06:36 07:20 WBC RBC 3.40 L Hgb 9.2 L Hct 28.0 L MCH 27 L RDW 16.2 H Lymph % (Auto) [place] % (Auto) 10.3 H Lymph # Seg Neutrophils % Seg Neuts % (Manual) Lymphocytes % (Manual) Seg Neutrophils # Man Lymphocytes # (Manual) PT INR VBG pH Sodium 135 L Potassium Chloride Carbon Dioxide BUN Creatinine < 0.2 L Glucose POC Glucose 138 H Lactic Acid Calcium 8.2 L Phosphorus Magnesium Total Bilirubin AST Total Protein Albumin Prealbumin Crossmatch 05/21/18 05/21/18 05/22/18 11:12 18:17 00:10 WBC RBC Hgb Hct MCH RDW Lymph % (Auto) [place] % (Auto) Lymph # Seg Neutrophils % Seg Neuts % (Manual) Lymphocytes % (Manual) Seg Neutrophils # Man Lymphocytes # (Manual) PT INR VBG pH Sodium Potassium Chloride Carbon Dioxide BUN Creatinine Glucose POC Glucose 137 H 134 H 127 H Lactic Acid Calcium Phosphorus Magnesium Total Bilirubin AST Total Protein Albumin Prealbumin Crossmatch 05/22/18 05/22/18 05/22/18 05:33 05:35 11:31 WBC RBC Hgb Hct MCH RDW Lymph % (Auto) [place] % (Auto) Lymph # Seg Neutrophils % Seg Neuts % (Manual) Lymphocytes % (Manual) Seg Neutrophils # Man Lymphocytes # (Manual) PT INR VBG pH Sodium Potassium Chloride Carbon Dioxide BUN Creatinine 0.2 L Glucose 115 H POC Glucose 135 H 171 H Lactic Acid Calcium 8.3 L Phosphorus Magnesium Total Bilirubin AST Total Protein Albumin Prealbumin Crossmatch 05/23/18 05/23/18 05/23/18 00:29 05:25 11:30 WBC RBC Hgb Hct MCH RDW Lymph % (Auto) [place] % (Auto) Lymph # Seg Neutrophils % Seg Neuts % (Manual) Lymphocytes % (Manual) Seg Neutrophils # Man Lymphocytes # (Manual) PT INR VBG pH Sodium 135 L Potassium Chloride Carbon Dioxide BUN Creatinine 0.2 L Glucose 113 H POC Glucose 157 H 141 H Lactic Acid Calcium 8.2 L Phosphorus Magnesium Total Bilirubin AST Total Protein Albumin Prealbumin Crossmatch Chest x-ray: report reviewed (Reported no evidence of cardiopulmonary process.), image reviewed Allied health notes reviewed: nursing
[2018-05-23] MEDS ORDERED: TPN ADULT 1,800 ML IV SCH (20:00)
[2018-05-23] MEDS: REMERON PO SCH (21:54)
[2018-05-24] MEDS: DILAUDID IV PRN ×6 (00:51→22:44)
[2018-05-24 07:10] LABS: BUN/Creatinine Ratio 65; Blood Urea Nitrogen 13 mg/dL (7-17); Calcium 8.1 mg/dL (8.4-10.2); Hemolysis Index 2
[2018-05-24] MEDS: PULMICORT IH SCH ×2 (08:07→20:32)
[2018-05-24] MEDS: BROVANA NEBU IH SCH ×2 (08:07→20:32)
[2018-05-24] MEDS: COZAAR PO SCH ×2 (08:14→10:00)
[2018-05-24] MEDS: XANAX PO PRN ×2 (08:20→19:13)
[2018-05-24] MEDS: NEURONTIN PO SCH ×3 (12:09→19:18)
--- NOTE | 2018-05-24 13:06 | Progress Note ---
Assessment and Plan Pt resting comfortably in bed watching TV. no compl Abd soft, non tender stable for f/u CT in am Selected Entries 05/23/18 05/24/18 12:00 11:00 Temperature 98 F 98.6 F Pulse Rate 90 97 H Respiratory 20 20 Rate Blood Pressure 150/80 110/64 [Left] Laboratory Tests 05/24/18 05:40 Sodium 133 L Potassium 4.4 Chloride 97.7 L Carbon Dioxide 30 Anion Gap 10 BUN 13 Creatinine 0.2 L Triglycerides 128 Objective Vital Signs - 12hr 05/24/18 05/24/18 05/24/18 01:21 05:05 05:56 Temperature 98.6 F Pulse Rate 85 Pulse Rate [ Anterior Bilateral Throughout] Respiratory 16 18 16 Rate Respiratory Rate [Anterior Bilateral Throughout] Blood Pressure Blood Pressure 105/55 [Left] O2 Sat by Pulse 95 Oximetry 05/24/18 05/24/18 05/24/18 06:26 07:06 08:00 Temperature 98.9 F Pulse Rate Pulse Rate [ 86 Anterior Bilateral Throughout] Respiratory 16 18 Rate Respiratory 18 Rate [Anterior Bilateral Throughout] Blood Pressure 112/62 Blood Pressure [Left] O2 Sat by Pulse Oximetry 05/24/18 05/24/18 05/24/18 08:05 08:14 11:00 Temperature 98.9 F 98.6 F Pulse Rate 93 H 93 H 97 H Pulse Rate [ Anterior Bilateral Throughout] Respiratory 18 20 Rate Respiratory Rate [Anterior Bilateral Throughout] Blood Pressure 112/62 Blood Pressure 112/62 110/64 [Left] O2 Sat by Pulse 95 97 Oximetry - Labs 05/21/18 07:20 05/24/18 05:40 Diabetes panel 05/24/18 Range/Units 05:40 Sodium 133 L (137-145) mmol/L Potassium 4.4 (3.6-5.0) mmol/L Chloride 97.7 L (98-107) mmol/L Carbon Dioxide 30 (22-30) mmol/L BUN 13 (7-17) mg/dL Creatinine 0.2 L (0.7-1.2) mg/dL Glucose 81 (65-100) mg/dL Calcium 8.1 L (8.4-10.2) mg/dL Triglycerides 128 (2-149) mg/dL Calcium panel 05/24/18 Range/Units 05:40 Calcium 8.1 L (8.4-10.2) mg/dL Phosphorus 4.20 D (2.5-4.5) mg/dL Pituitary panel 05/24/18 Range/Units 05:40 Sodium 133 L (137-145) mmol/L Potassium 4.4 (3.6-5.0) mmol/L Chloride 97.7 L (98-107) mmol/L Carbon Dioxide 30 (22-30) mmol/L BUN 13 (7-17) mg/dL Creatinine 0.2 L (0.7-1.2) mg/dL Glucose 81 (65-100) mg/dL Calcium 8.1 L (8.4-10.2) mg/dL Adrenal panel 05/24/18 Range/Units 05:40 Sodium 133 L (137-145) mmol/L Potassium 4.4 (3.6-5.0) mmol/L Chloride 97.7 L (98-107) mmol/L Carbon Dioxide 30 (22-30) mmol/L BUN 13 (7-17) mg/dL Creatinine 0.2 L (0.7-1.2) mg/dL Glucose 81 (65-100) mg/dL Calcium 8.1 L (8.4-10.2) mg/dL
--- NOTE | 2018-05-24 13:14 | Progress Note ---
Assessment and Plan /Sepsis Etiology secondary to gangrenous and perforated appendix causing intra- abdominal/pelvic abscess. Patient is status post exploratory laparotomy with appendectomy and evacuation of pelvic abscess. Now off antibiotics and noted ID signed off. No fever off antibiotics. /Hypotension-resolved BP better, /Perforated appendix s/p exploratory lap Cont. 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 Untreated. Outpatient follow-up. /Accel Hypertension. continue Cozaar to 100mg. Cont. Hydralazine prn. /Diarrhea: s/p lmodium prn x 1 /Tachycardia: secondary to dehydration and deconditioning. Fluids to be given and also started Low dose BB. /COPD. Compensated. nebs as needed /Neurofibromatosis: outpt follow up /Tobacco abuse. Patient counseled on smoking cessation FOR 15 MINS, Patient verbalized understanding and will think about it. /Severe protein calorie malnutrition; instructional consultant consulted. continue with TPN Disposition - when cleared by surgery Brief history: The patient is a 57-year-old female with hypertension, neurofibromatosis, hepat itis C, COPD, nicotine dependence presented to the emergency room on 04/18/18 with complaints of abdominal pain going on for [address] scan obtained in the emergency room revealed a ruptured appendix with associated intra-abdominal abscess. General surgery was consulted and the patient underwent an emergent exploratory laparotomy with evacuation of pelvic abscess. She was noted to have a gangrenous, perforated appendix eroding including into the small bowel. As per the op note, the abscess could not be drained as the entire abscess and inflammatory process had trapped the small bowel, which was mobilized and she underwent an ileocolic anastomosis. The patient went back to the OR on 04/25/18 for drain dislodgment. Surgical cultures growing ECOLI and beta hemolytic strep group C, ester a lbicans and enteroccocus faecium. Per surgery considering plan to transfer to LTAC * pt must continue on current TPN regimen and sandostatin-pt refused the later due to diarrhea * Continue local wd care * Surgical culture grew Ecoli and ester * If pt begins experiencing RLQ abd pain, Drain must be re-placed on low continues suction * CT abdome: 05/18/18- Still shows minimal drainage, per surgery will repeat in a week - repeat CT of abd & pelvis with PO contrast to be scheduled for Paul * Urology was consulted for possible entro-vesico fistula due to the color of the urine, cystogram was normal. * Pt needs to remain NPO except for ice chips, meds and popsicles until the results of her CT on Friday05/25/18 * Pt may have retention sutures removed after Friday * Insurance denies LTAC, recommends SNF. Both surgeon and Patient believe SNF is the wrong place Hospitalist Physical VITAL SIGNS: Reviewed. GENERAL: The patient appeared well nourished and normally developed. Cachectic. Vital signs as documented. Temporal wasting noted HEAD: No signs of head trauma. marked tempral wasting EYES: Pupils are equal. Extraocular motions intact. EARS: Hearing grossly intact. MOUTH: Oropharynx is normal. NECK: No adenopathy, no JVD. CHEST: Chest with clear breath sounds bilaterally. No wheezes, rales, or rhonchi. CARDIAC: Regular rate and rhythm. S1 and S2, without murmurs, gallops, or rubs. VASCULAR: No Edema. Peripheral pulses normal and equal in all extremities. ABDOMEN: Soft, midly distended, some tenderness. bilateral drain noted. hypoactive BS No rebound or guarding, and no masses palpated. MUSCULOSKELETAL: Good range of motion of all major joints. Extremities without clubbing, cyanosis or edema. NEUROLOGIC EXAM: Alert and oriented x 3. No focal sensory or strength deficits. Speech normal. Follows commands. PSYCHIATRIC: Mood normal. SKIN: neurofibromatosis lesions on face Subjective Date of service: 05/24/18 Principal diagnosis: Sepsis; Ex-lap appendectomy and evacuation of pelvic abscess; Peritonitis Interval history: Patient seen and examined this am with nursing staff. States feels better. abdominal pain improved repeat CT abdomen/pelvis tomorrow Objective - Constitutional Vitals: Vital Signs - 12hr 05/24/18 05/24/18 05/24/18 01:21 05:05 05:56 Temperature 98.6 F Pulse Rate 85 Pulse Rate [ Anterior Bilateral Throughout] Respiratory 16 18 16 Rate Respiratory Rate [Anterior Bilateral Throughout] Blood Pressure Blood Pressure 105/55 [Left] O2 Sat by Pulse 95 Oximetry 05/24/18 05/24/18 05/24/18 06:26 07:06 08:00 Temperature 98.9 F Pulse Rate Pulse Rate [ 86 Anterior Bilateral Throughout] Respiratory 16 18 Rate Respiratory 18 Rate [Anterior Bilateral Throughout] Blood Pressure 112/62 Blood Pressure [Left] O2 Sat by Pulse Oximetry 05/24/18 05/24/18 05/24/18 08:05 08:14 11:00 Temperature 98.9 F 98.6 F Pulse Rate 93 H 93 H 97 H Pulse Rate [ Anterior Bilateral Throughout] Respiratory 18 20 Rate Respiratory Rate [Anterior Bilateral Throughout] Blood Pressure 112/62 Blood Pressure 112/62 110/64 [Left] O2 Sat by Pulse 95 97 Oximetry - Labs CBC & Chem 7: 05/21/18 07:20 05/25/18 05:00 Labs: Abnormal lab results 05/24/18 05/24/18 Range/Units 05:40 11:26 Sodium 133 L (137-145) mmol/L Chloride 97.7 L (98-107) mmol/L Creatinine 0.2 L (0.7-1.2) mg/dL POC Glucose 120 H (70-105) Calcium 8.1 L (8.4-10.2) mg/dL
[2018-05-24] MEDS: LOPRESSOR PO SCH ×2 (18:17→22:45)
[2018-05-24] MEDS: ZOFRAN IV PRN (18:36)
[2018-05-24] MEDS ORDERED: TPN ADULT 1,800 ML IV SCH (20:00)
--- NOTE | 2018-05-24 21:54 | Progress Note ---
Assessment and Plan Patient sleeping on room air at this time. O2 saturation 96%.No complaint of chest pain, shortness of breath or cough. - Patient Problems (1) Appendicitis with perforation Current Visit: Yes Status: Acute Plan to address problem: S/p resection of perforated appendex. (2) Sepsis Current Visit: Yes Status: Acute Qualifiers: Sepsis type: Escherichia coli Qualified Code(s): A41.51 - Sepsis due to Escherichia coli [E. coli] Plan to address problem: Resolved. Patient off the antibiotics. (3) Acute metabolic encephalopathy Current Visit: No Status: Acute Plan to address problem: Appears improved. Management as per primary care. (4) Marijuana abuse Current Visit: No Status: Acute Plan to address problem: Counselled not use marijuana. Subjective Date of service: 05/24/18 Principal diagnosis: Sepsis; Ex-lap appendectomy and evacuation of pelvic abscess; Peritonitis Interval history: Patient sleeping on room air at this time. O2 saturation 96%.No complaint of chest pain, shortness of breath or cough. Objective Vital Signs - 12hr 05/24/18 05/24/18 05/24/18 11:00 16:00 20:34 Temperature 98.6 F 98.4 F Pulse Rate 97 H 92 H Pulse Rate [ 101 H Anterior Bilateral Throughout] Respiratory 20 18 Rate Respiratory 20 Rate [Anterior Bilateral Throughout] Blood Pressure 110/64 133/71 [Left] O2 Sat by Pulse 97 96 Oximetry Constitutional: no acute distress, asleep, other (chronically ill looking this middle aged CF, normocephalic) Eyes: non-icteric ENT: oropharynx moist, other (Mallampati 2) Neck: supple, no lymphadenopathy, no JVD Effort: mildly labored Ascultation: Bilateral: diminished breath sounds, rhonchi (scant in bases) Percussion: Bilateral: not dull Cardiovascular: regular rate and rhythm Gastrointestinal: normoactive bowel sounds, soft, tender (bhargav-op site), non- distended, other (Drain in place with non-bloody effluent) Integumentary: other (poor turgor; ? neurofibromatous nodules over body) Extremities: no cyanosis, no edema, pink and warm, pulses normal Neurologic: normal mental status, non-focal exam, pupils equal and round, motor strength normal and Psychiatric: mood appropriate, anxious CBC and BMP: 05/21/18 07:20 05/24/18 05:40 ABG, PT/INR, D-dimer: ABG POC ABG pH 7.367 (7.35-7.45) 04/19/18 00:19 POC ABG pCO2 36.8 (35-45) 04/19/18 00:19 POC ABG pO2 84 (80-105) 04/19/18 00:19 POC ABG HCO3 21.1 04/19/18 00:19 POC ABG Total CO2 22 04/19/18 00:19 POC ABG O2 Sat 96 04/19/18 00:19 PT/INR, D-dimer PT 15.3 Sec. (12.2-14.9) H 04/22/18 05:19 INR 1.17 (0.87-1.13) H 04/22/18 05:19 Abnormal lab findings: Abnormal Labs 04/18/18 04/18/18 04/18/18 14:30 14:30 14:30 WBC 18.6 H RBC Hgb Hct MCH RDW Lymph % (Auto) [place] % (Auto) Lymph # Seg Neutrophils % Seg Neuts % (Manual) 79.0 H Lymphocytes % (Manual) 4.0 L Seg Neutrophils # Man 14.7 H Lymphocytes # (Manual) 0.7 L PT 16.3 H INR 1.27 H VBG pH Sodium 121 L Potassium 3.0 L Chloride 78.0 L Carbon Dioxide BUN Creatinine 0.5 L Glucose 110 H POC Glucose Lactic Acid Calcium Phosphorus Magnesium Total Bilirubin 1.30 H AST 42 H Total Protein Albumin 3.1 L Prealbumin Crossmatch 04/18/18 04/18/18 04/18/18 14:30 14:30 23:59 WBC RBC Hgb Hct MCH RDW 15.8 H Lymph % (Auto) [place] % (Auto) Lymph # Seg Neutrophils % Seg Neuts % (Manual) 78.0 H Lymphocytes % (Manual) 6.0 L Seg Neutrophils # Man Lymphocytes # (Manual) 0.5 L PT INR VBG pH 7.439 H Sodium Potassium Chloride Carbon Dioxide BUN Creatinine Glucose POC Glucose Lactic Acid 3.60 H* Calcium Phosphorus Magnesium Total Bilirubin AST Total Protein Albumin Prealbumin Crossmatch 04/18/18 04/19/18 04/19/18 23:59 05:19 05:19 WBC 15.0 H RBC Hgb Hct MCH RDW 15.3 H Lymph % (Auto) [place] % (Auto) Lymph # Seg Neutrophils % Seg Neuts % (Manual) Lymphocytes % (Manual) 5.0 L Seg Neutrophils # Man 8.3 H Lymphocytes # (Manual) 0.8 L PT INR VBG pH Sodium 130 L D 133 L Potassium 3.5 L 3.3 L Chloride Carbon Dioxide 20 L D BUN Creatinine 0.5 L 0.6 L Glucose 140 H 115 H POC Glucose Lactic Acid Calcium 7.5 L 7.4 L Phosphorus Magnesium Total Bilirubin AST Total Protein 4.4 L D 4.1 L Albumin 2.0 L 1.9 L Prealbumin Crossmatch 04/19/18 04/19/18 04/20/18 05:19 13:05 05:18 WBC RBC Hgb Hct MCH RDW Lymph % (Auto) [place] % (Auto) Lymph # Seg Neutrophils % Seg Neuts % (Manual) Lymphocytes % (Manual) Seg Neutrophils # Man Lymphocytes # (Manual) PT 19.4 H 17.4 H INR 1.59 H 1.38 H VBG pH Sodium Potassium Chloride Carbon Dioxide BUN Creatinine Glucose POC Glucose Lactic Acid Calcium Phosphorus Magnesium Total Bilirubin AST Total Protein Albumin Prealbumin Crossmatch See Detail 04/20/18 04/20/18 04/21/18 13:47 13:47 04:52 WBC RBC 3.29 L 3.10 L Hgb 9.6 L 8.8 L Hct 28.1 L D 26.6 L MCH RDW 15.3 H 15.4 H Lymph % (Auto) 5.6 L [place] % (Auto) Lymph # 0.4 L Seg Neutrophils % 87.3 H Seg Neuts % (Manual) Lymphocytes % (Manual) Seg Neutrophils # Man Lymphocytes # (Manual) PT INR VBG pH Sodium Potassium Chloride Carbon Dioxide BUN Creatinine 0.3 L Glucose 102 H POC Glucose Lactic Acid Calcium 8.0 L Phosphorus Magnesium Total Bilirubin AST Total Protein Albumin Prealbumin Crossmatch 04/21/18 04/22/18 04/22/18 04:52 05:19 05:19 WBC RBC 3.64 L Hgb Hct MCH RDW Lymph % (Auto) 8.5 L [place] % (Auto) 9.9 H Lymph # 0.6 L Seg Neutrophils % 81.0 H Seg Neuts % (Manual) Lymphocytes % (Manual) Seg Neutrophils # Man Lymphocytes # (Manual) PT 15.3 H INR 1.17 H VBG pH Sodium Potassium 3.2 L Chloride Carbon Dioxide BUN Creatinine 0.3 L Glucose POC Glucose Lactic Acid Calcium 7.6 L Phosphorus Magnesium Total Bilirubin AST Total Protein Albumin Prealbumin Crossmatch 04/22/18 04/24/18 04/24/18 05:19 07:19 07:19 WBC RBC Hgb Hct MCH RDW Lymph % (Auto) [place] % (Auto) Lymph # Seg Neutrophils % Seg Neuts % (Manual) Lymphocytes % (Manual) Seg Neutrophils # Man Lymphocytes # (Manual) PT INR VBG pH Sodium Potassium 3.4 L 2.9 L* Chloride Carbon Dioxide BUN Creatinine 0.3 L 0.3 L Glucose 103 H POC Glucose Lactic Acid Calcium 7.7 L 7.5 L Phosphorus Magnesium 1.60 L Total Bilirubin AST Total Protein 4.3 L Albumin 2.2 L Prealbumin Crossmatch 04/24/18 04/25/18 04/25/18 07:23 06:28 06:28 WBC RBC Hgb Hct MCH RDW 15.3 H 15.9 H Lymph % (Auto) 10.1 L [place] % (Auto) Lymph # 0.8 L Seg Neutrophils % 80.6 H Seg Neuts % (Manual) Lymphocytes % (Manual) 9.0 L Seg Neutrophils # Man Lymphocytes # (Manual) 0.7 L PT INR VBG pH Sodium Potassium 3.0 L Chloride Carbon Dioxide BUN 5 L Creatinine 0.2 L Glucose 108 H POC Glucose Lactic Acid Calcium 7.4 L Phosphorus Magnesium Total Bilirubin AST Total Protein 4.6 L Albumin 2.5 L Prealbumin Crossmatch 04/25/18 04/26/18 04/26/18 06:28 05:45 05:45 WBC 11.9 H RBC Hgb Hct MCH RDW 16.2 H Lymph % (Auto) [place] % (Auto) Lymph # Seg Neutrophils % Seg Neuts % (Manual) Lymphocytes % (Manual) Seg Neutrophils # Man Lymphocytes # (Manual) PT INR VBG pH Sodium Potassium Chloride Carbon Dioxide BUN 5 L Creatinine 0.2 L Glucose 119 H POC Glucose Lactic Acid Calcium 7.7 L Phosphorus 2.00 L 2.20 L Magnesium Total Bilirubin AST Total Protein Albumin Prealbumin Crossmatch 04/27/18 04/28/18 04/28/18 05:33 06:00 06:00 WBC 11.2 H RBC Hgb Hct MCH RDW 16.0 H Lymph % (Auto) [place] % (Auto) Lymph # Seg Neutrophils % Seg Neuts % (Manual) 92.0 H Lymphocytes % (Manual) 5.0 L Seg Neutrophils # Man 10.3 H Lymphocytes # (Manual) 0.6 L PT INR VBG pH Sodium Potassium 3.4 L 3.1 L Chloride Carbon Dioxide BUN 6 L 4 L Creatinine 0.2 L 0.2 L Glucose 119 H POC Glucose Lactic Acid Calcium 7.5 L 7.1 L Phosphorus 2.00 L 2.10 L Magnesium 1.50 L Total Bilirubin AST Total Protein 4.3 L Albumin 2.1 L Prealbumin Crossmatch 04/29/18 04/29/18 04/29/18 05:18 05:18 17:49 WBC 12.0 H RBC Hgb Hct MCH RDW 16.0 H Lymph % (Auto) [place] % (Auto) Lymph # Seg Neutrophils % Seg Neuts % (Manual) 87.0 H Lymphocytes % (Manual) 10.0 L Seg Neutrophils # Man 10.4 H Lymphocytes # (Manual) PT INR VBG pH Sodium 135 L Potassium Chloride Carbon Dioxide BUN Creatinine 0.2 L Glucose 120 H POC Glucose 108 H Lactic Acid Calcium 7.5 L Phosphorus Magnesium Total Bilirubin AST Total Protein Albumin Prealbumin Crossmatch 04/30/18 04/30/18 04/30/18 00:03 05:18 05:41 WBC RBC Hgb Hct MCH RDW Lymph % (Auto) [place] % (Auto) Lymph # Seg Neutrophils % Seg Neuts % (Manual) Lymphocytes % (Manual) Seg Neutrophils # Man Lymphocytes # (Manual) PT INR VBG pH Sodium 133 L Potassium Chloride Carbon Dioxide BUN Creatinine 0.2 L Glucose 119 H POC Glucose 112 H 110 H Lactic Acid Calcium 7.5 L Phosphorus Magnesium Total Bilirubin AST Total Protein Albumin Prealbumin Crossmatch 04/30/18 05/01/18 05/01/18 05:41 00:39 04:45 WBC RBC 3.60 L Hgb Hct MCH RDW 16.0 H Lymph % (Auto) [place] % (Auto) Lymph # Seg Neutrophils % Seg Neuts % (Manual) 88.0 H Lymphocytes % (Manual) 8.0 L Seg Neutrophils # Man Lymphocytes # (Manual) 0.7 L PT INR VBG pH Sodium 132 L Potassium Chloride Carbon Dioxide BUN Creatinine 0.2 L Glucose 101 H POC Glucose 119 H Lactic Acid Calcium 7.6 L Phosphorus Magnesium Total Bilirubin AST Total Protein Albumin Prealbumin Crossmatch 05/01/18 05/01/18 05/01/18 06:30 16:09 23:42 WBC RBC Hgb Hct MCH RDW Lymph % (Auto) [place] % (Auto) Lymph # Seg Neutrophils % Seg Neuts % (Manual) Lymphocytes % (Manual) Seg Neutrophils # Man Lymphocytes # (Manual) PT INR VBG pH Sodium Potassium Chloride Carbon Dioxide BUN Creatinine Glucose POC Glucose 126 H 160 H 113 H Lactic Acid Calcium Phosphorus Magnesium Total Bilirubin AST Total Protein Albumin Prealbumin Crossmatch 05/02/18 05/02/18 05/02/18 04:55 06:41 11:53 WBC RBC Hgb Hct MCH RDW Lymph % (Auto) [place] % (Auto) Lymph # Seg Neutrophils % Seg Neuts % (Manual) Lymphocytes % (Manual) Seg Neutrophils # Man Lymphocytes # (Manual) PT INR VBG pH Sodium 134 L Potassium Chloride Carbon Dioxide BUN Creatinine 0.2 L Glucose 113 H POC Glucose 146 H 113 H Lactic Acid Calcium 7.4 L Phosphorus Magnesium Total Bilirubin AST Total Protein Albumin Prealbumin Crossmatch 05/02/18 05/02/18 05/03/18 17:33 23:37 08:46 WBC RBC 3.36 L Hgb 9.7 L Hct 28.7 L MCH RDW 16.3 H Lymph % (Auto) [place] % (Auto) 10.0 H Lymph # Seg Neutrophils % Seg Neuts % (Manual) Lymphocytes % (Manual) Seg Neutrophils # Man Lymphocytes # (Manual) PT INR VBG pH Sodium Potassium Chloride Carbon Dioxide BUN Creatinine Glucose POC Glucose 106 H 123 H Lactic Acid Calcium Phosphorus Magnesium Total Bilirubin AST Total Protein Albumin Prealbumin Crossmatch 05/03/18 05/03/18 05/04/18 11:54 12:15 06:59 WBC RBC Hgb Hct MCH RDW Lymph % (Auto) [place] % (Auto) Lymph # Seg Neutrophils % Seg Neuts % (Manual) Lymphocytes % (Manual) Seg Neutrophils # Man Lymphocytes # (Manual) PT INR VBG pH Sodium 136 L Potassium Chloride Carbon Dioxide BUN Creatinine 0.2 L Glucose 131 H POC Glucose 109 H 161 H Lactic Acid Calcium 7.6 L Phosphorus Magnesium Total Bilirubin AST Total Protein Albumin Prealbumin Crossmatch 05/04/18 05/04/18 05/04/18 07:03 08:02 11:10 WBC RBC 3.52 L Hgb Hct 29.8 L MCH RDW 16.2 H Lymph % (Auto) [place] % (Auto) 8.6 H Lymph # Seg Neutrophils % Seg Neuts % (Manual) Lymphocytes % (Manual) Seg Neutrophils # Man Lymphocytes # (Manual) PT INR VBG pH Sodium 135 L Potassium Chloride Carbon Dioxide BUN Creatinine 0.2 L Glucose 160 H POC Glucose 106 H Lactic Acid Calcium 7.7 L Phosphorus Magnesium Total Bilirubin AST Total Protein Albumin Prealbumin Crossmatch 05/04/18 05/05/18 05/05/18 23:38 11:28 16:55 WBC RBC Hgb Hct MCH RDW Lymph % (Auto) [place] % (Auto) Lymph # Seg Neutrophils % Seg Neuts % (Manual) Lymphocytes % (Manual) Seg Neutrophils # Man Lymphocytes # (Manual) PT INR VBG pH Sodium Potassium Chloride Carbon Dioxide BUN Creatinine Glucose POC Glucose 121 H 119 H 108 H Lactic Acid Calcium Phosphorus Magnesium Total Bilirubin AST Total Protein Albumin Prealbumin Crossmatch 05/05/18 05/06/18 05/06/18 Unknown 05:35 16:40 WBC RBC Hgb Hct MCH RDW Lymph % (Auto) [place] % (Auto) Lymph # Seg Neutrophils % Seg Neuts % (Manual) Lymphocytes % (Manual) Seg Neutrophils # Man Lymphocytes # (Manual) PT INR VBG pH Sodium 135 L 136 L Potassium Chloride 97.9 L Carbon Dioxide BUN Creatinine 0.2 L 0.2 L Glucose 119 H POC Glucose 133 H Lactic Acid Calcium 8.0 L 8.1 L Phosphorus Magnesium Total Bilirubin AST 46 H Total Protein 5.5 L Albumin 2.7 L Prealbumin Crossmatch 05/06/18 05/07/18 05/07/18 22:07 05:38 05:40 WBC RBC Hgb Hct MCH RDW Lymph % (Auto) [place] % (Auto) Lymph # Seg Neutrophils % Seg Neuts % (Manual) Lymphocytes % (Manual) Seg Neutrophils # Man Lymphocytes # (Manual) PT INR VBG pH Sodium 133 L Potassium Chloride Carbon Dioxide BUN Creatinine 0.2 L Glucose POC Glucose 168 H 107 H Lactic Acid Calcium 8.2 L Phosphorus Magnesium Total Bilirubin AST Total Protein Albumin Prealbumin Crossmatch 05/07/18 05/07/18 05/08/18 11:56 18:04 05:38 WBC RBC Hgb Hct MCH RDW 16.3 H Lymph % (Auto) [place] % (Auto) 7.7 H Lymph # Seg Neutrophils % Seg Neuts % (Manual) Lymphocytes % (Manual) Seg Neutrophils # Man Lymphocytes # (Manual) PT INR VBG pH Sodium Potassium Chloride Carbon Dioxide BUN Creatinine Glucose POC Glucose 145 H 125 H Lactic Acid Calcium Phosphorus Magnesium Total Bilirubin AST Total Protein Albumin Prealbumin Crossmatch 05/08/18 05/08/18 05/08/18 05:38 11:35 16:23 WBC RBC Hgb Hct MCH RDW Lymph % (Auto) [place] % (Auto) Lymph # Seg Neutrophils % Seg Neuts % (Manual) Lymphocytes % (Manual) Seg Neutrophils # Man Lymphocytes # (Manual) PT INR VBG pH Sodium 135 L Potassium Chloride Carbon Dioxide BUN Creatinine 0.2 L Glucose POC Glucose 118 H 131 H Lactic Acid Calcium Phosphorus Magnesium Total Bilirubin AST Total Protein Albumin Prealbumin Crossmatch 05/08/18 05/09/18 05/09/18 21:40 05:46 06:15 WBC RBC Hgb Hct MCH RDW Lymph % (Auto) [place] % (Auto) Lymph # Seg Neutrophils % Seg Neuts % (Manual) Lymphocytes % (Manual) Seg Neutrophils # Man Lymphocytes # (Manual) PT INR VBG pH Sodium 135 L Potassium Chloride 97.5 L Carbon Dioxide BUN Creatinine 0.2 L Glucose POC Glucose 110 H 115 H Lactic Acid Calcium Phosphorus Magnesium Total Bilirubin AST Total Protein Albumin Prealbumin Crossmatch 05/09/18 05/09/18 05/10/18 11:28 23:53 06:22 WBC RBC Hgb Hct MCH RDW Lymph % (Auto) [place] % (Auto) Lymph # Seg Neutrophils % Seg Neuts % (Manual) Lymphocytes % (Manual) Seg Neutrophils # Man Lymphocytes # (Manual) PT INR VBG pH Sodium Potassium Chloride Carbon Dioxide BUN Creatinine Glucose POC Glucose 145 H 132 H 149 H Lactic Acid Calcium Phosphorus Magnesium Total Bilirubin AST Total Protein Albumin Prealbumin Crossmatch 05/10/18 05/10/18 05/11/18 16:14 23:24 05:00 WBC RBC Hgb Hct MCH RDW Lymph % (Auto) [place] % (Auto) Lymph # Seg Neutrophils % Seg Neuts % (Manual) Lymphocytes % (Manual) Seg Neutrophils # Man Lymphocytes # (Manual) PT INR VBG pH Sodium Potassium Chloride Carbon Dioxide BUN Creatinine 0.2 L Glucose 113 H POC Glucose 119 H 119 H Lactic Acid Calcium Phosphorus Magnesium Total Bilirubin AST Total Protein Albumin Prealbumin Crossmatch 05/11/18 05/11/18 05/11/18 05:57 11:23 16:29 WBC RBC Hgb Hct MCH RDW Lymph % (Auto) [place] % (Auto) Lymph # Seg Neutrophils % Seg Neuts % (Manual) Lymphocytes % (Manual) Seg Neutrophils # Man Lymphocytes # (Manual) PT INR VBG pH Sodium Potassium Chloride Carbon Dioxide BUN Creatinine Glucose POC Glucose 173 H 143 H 159 H Lactic Acid Calcium Phosphorus Magnesium Total Bilirubin AST Total Protein Albumin Prealbumin Crossmatch 05/12/18 05/12/18 05/12/18 00:47 06:23 11:21 WBC RBC Hgb Hct MCH RDW Lymph % (Auto) [place] % (Auto) Lymph # Seg Neutrophils % Seg Neuts % (Manual) Lymphocytes % (Manual) Seg Neutrophils # Man Lymphocytes # (Manual) PT INR VBG pH Sodium Potassium Chloride Carbon Dioxide BUN Creatinine Glucose POC Glucose 139 H 136 H 116 H Lactic Acid Calcium Phosphorus Magnesium Total Bilirubin AST Total Protein Albumin Prealbumin Crossmatch 05/12/18 05/12/18 05/12/18 17:19 17:22 22:22 WBC RBC Hgb Hct MCH RDW Lymph % (Auto) [place] % (Auto) Lymph # Seg Neutrophils % Seg Neuts % (Manual) Lymphocytes % (Manual) Seg Neutrophils # Man Lymphocytes # (Manual) PT INR VBG pH Sodium Potassium Chloride Carbon Dioxide BUN Creatinine Glucose POC Glucose 329 H 116 H 124 H Lactic Acid Calcium Phosphorus Magnesium Total Bilirubin AST Total Protein Albumin Prealbumin Crossmatch 05/13/18 05/13/18 05/13/18 18:35 22:25 Unknown WBC RBC Hgb Hct MCH RDW Lymph % (Auto) [place] % (Auto) Lymph # Seg Neutrophils % Seg Neuts % (Manual) Lymphocytes % (Manual) Seg Neutrophils # Man Lymphocytes # (Manual) PT INR VBG pH Sodium 136 L Potassium Chloride 97.8 L Carbon Dioxide BUN Creatinine 0.2 L Glucose POC Glucose 137 H 106 H Lactic Acid Calcium Phosphorus Magnesium Total Bilirubin AST 41 H Total Protein Albumin 3.5 L Prealbumin Crossmatch 05/14/18 05/14/18 05/14/18 06:40 06:40 12:48 WBC RBC 3.48 L Hgb 9.8 L Hct 29.1 L MCH RDW 15.6 H Lymph % (Auto) [place] % (Auto) Lymph # Seg Neutrophils % Seg Neuts % (Manual) Lymphocytes % (Manual) Seg Neutrophils # Man Lymphocytes # (Manual) PT INR VBG pH Sodium Potassium Chloride Carbon Dioxide BUN Creatinine 0.2 L Glucose POC Glucose 113 H Lactic Acid Calcium 8.1 L Phosphorus Magnesium Total Bilirubin AST Total Protein Albumin Prealbumin Crossmatch 05/14/18 05/14/18 05/15/18 17:52 22:04 05:10 WBC RBC Hgb Hct MCH RDW Lymph % (Auto) [place] % (Auto) Lymph # Seg Neutrophils % Seg Neuts % (Manual) Lymphocytes % (Manual) Seg Neutrophils # Man Lymphocytes # (Manual) PT INR VBG pH Sodium 135 L Potassium Chloride Carbon Dioxide BUN Creatinine 0.2 L Glucose POC Glucose 106 H 107 H Lactic Acid Calcium 8.2 L Phosphorus Magnesium Total Bilirubin AST Total Protein Albumin Prealbumin Crossmatch 05/15/18 05/15/18 05/15/18 06:24 11:31 16:47 WBC RBC Hgb Hct MCH RDW Lymph % (Auto) [place] % (Auto) Lymph # Seg Neutrophils % Seg Neuts % (Manual) Lymphocytes % (Manual) Seg Neutrophils # Man Lymphocytes # (Manual) PT INR VBG pH Sodium Potassium Chloride Carbon Dioxide BUN Creatinine Glucose POC Glucose 125 H 133 H 135 H Lactic Acid Calcium Phosphorus Magnesium Total Bilirubin AST Total Protein Albumin Prealbumin Crossmatch 05/16/18 05/16/18 05/16/18 00:13 04:30 05:59 WBC RBC Hgb Hct MCH RDW Lymph % (Auto) [place] % (Auto) Lymph # Seg Neutrophils % Seg Neuts % (Manual) Lymphocytes % (Manual) Seg Neutrophils # Man Lymphocytes # (Manual) PT INR VBG pH Sodium Potassium Chloride Carbon Dioxide BUN Creatinine 0.2 L Glucose POC Glucose 132 H 113 H Lactic Acid Calcium Phosphorus Magnesium Total Bilirubin AST Total Protein Albumin Prealbumin Crossmatch 05/16/18 05/16/18 05/17/18 13:03 18:51 05:06 WBC RBC Hgb Hct MCH RDW Lymph % (Auto) [place] % (Auto) Lymph # Seg Neutrophils % Seg Neuts % (Manual) Lymphocytes % (Manual) Seg Neutrophils # Man Lymphocytes # (Manual) PT INR VBG pH Sodium Potassium Chloride Carbon Dioxide BUN Creatinine Glucose POC Glucose 112 H 111 H 128 H Lactic Acid Calcium Phosphorus Magnesium Total Bilirubin AST Total Protein Albumin Prealbumin Crossmatch 05/17/18 05/17/18 05/18/18 06:07 23:54 07:05 WBC RBC Hgb Hct MCH RDW Lymph % (Auto) [place] % (Auto) Lymph # Seg Neutrophils % Seg Neuts % (Manual) Lymphocytes % (Manual) Seg Neutrophils # Man Lymphocytes # (Manual) PT INR VBG pH Sodium 135 L Potassium Chloride Carbon Dioxide BUN Creatinine 0.2 L Glucose 133 H POC Glucose 120 H 119 H Lactic Acid Calcium Phosphorus Magnesium Total Bilirubin AST Total Protein Albumin Prealbumin Crossmatch 05/18/18 05/18/18 05/18/18 07:43 11:29 16:29 WBC RBC Hgb Hct MCH RDW Lymph % (Auto) [place] % (Auto) Lymph # Seg Neutrophils % Seg Neuts % (Manual) Lymphocytes % (Manual) Seg Neutrophils # Man Lymphocytes # (Manual) PT INR VBG pH Sodium Potassium Chloride Carbon Dioxide BUN Creatinine 0.2 L Glucose 117 H POC Glucose 149 H 108 H Lactic Acid Calcium 8.2 L Phosphorus Magnesium Total Bilirubin AST Total Protein Albumin Prealbumin Crossmatch 05/19/18 05/19/18 05/20/18 23:15 Unknown 05:59 WBC RBC Hgb Hct MCH RDW Lymph % (Auto) [place] % (Auto) Lymph # Seg Neutrophils % Seg Neuts % (Manual) Lymphocytes % (Manual) Seg Neutrophils # Man Lymphocytes # (Manual) PT INR VBG pH Sodium 136 L Potassium Chloride Carbon Dioxide BUN Creatinine 0.2 L Glucose POC Glucose 106 H 114 H Lactic Acid Calcium Phosphorus 4.60 H D Magnesium Total Bilirubin AST Total Protein Albumin Prealbumin Crossmatch 05/20/18 05/20/18 05/20/18 06:25 17:52 23:59 WBC RBC Hgb Hct MCH RDW Lymph % (Auto) [place] % (Auto) Lymph # Seg Neutrophils % Seg Neuts % (Manual) Lymphocytes % (Manual) Seg Neutrophils # Man Lymphocytes # (Manual) PT INR VBG pH Sodium 135 L Potassium Chloride Carbon Dioxide BUN Creatinine 0.2 L Glucose 108 H POC Glucose 118 H 186 H Lactic Acid Calcium 8.3 L Phosphorus Magnesium Total Bilirubin AST Total Protein 5.6 L Albumin 2.9 L Prealbumin 0.113 L Crossmatch 05/21/18 05/21/18 05/21/18 04:40 06:36 07:20 WBC RBC 3.40 L Hgb 9.2 L Hct 28.0 L MCH 27 L RDW 16.2 H Lymph % (Auto) [place] % (Auto) 10.3 H Lymph # Seg Neutrophils % Seg Neuts % (Manual) Lymphocytes % (Manual) Seg Neutrophils # Man Lymphocytes # (Manual) PT INR VBG pH Sodium 135 L Potassium Chloride Carbon Dioxide BUN Creatinine < 0.2 L Glucose POC Glucose 138 H Lactic Acid Calcium 8.2 L Phosphorus Magnesium Total Bilirubin AST Total Protein Albumin Prealbumin Crossmatch 05/21/18 05/21/18 05/22/18 11:12 18:17 00:10 WBC RBC Hgb Hct MCH RDW Lymph % (Auto) [place] % (Auto) Lymph # Seg Neutrophils % Seg Neuts % (Manual) Lymphocytes % (Manual) Seg Neutrophils # Man Lymphocytes # (Manual) PT INR VBG pH Sodium Potassium Chloride Carbon Dioxide BUN Creatinine Glucose POC Glucose 137 H 134 H 127 H Lactic Acid Calcium Phosphorus Magnesium Total Bilirubin AST Total Protein Albumin Prealbumin Crossmatch 05/22/18 05/22/18 05/22/18 05:33 05:35 11:31 WBC RBC Hgb Hct MCH RDW Lymph % (Auto) [place] % (Auto) Lymph # Seg Neutrophils % Seg Neuts % (Manual) Lymphocytes % (Manual) Seg Neutrophils # Man Lymphocytes # (Manual) PT INR VBG pH Sodium Potassium Chloride Carbon Dioxide BUN Creatinine 0.2 L Glucose 115 H POC Glucose 135 H 171 H Lactic Acid Calcium 8.3 L Phosphorus Magnesium Total Bilirubin AST Total Protein Albumin Prealbumin Crossmatch 05/23/18 05/23/18 05/23/18 00:29 05:25 11:30 WBC RBC Hgb Hct MCH RDW Lymph % (Auto) [place] % (Auto) Lymph # Seg Neutrophils % Seg Neuts % (Manual) Lymphocytes % (Manual) Seg Neutrophils # Man Lymphocytes # (Manual) PT INR VBG pH Sodium 135 L Potassium Chloride Carbon Dioxide BUN Creatinine 0.2 L Glucose 113 H POC Glucose 157 H 141 H Lactic Acid Calcium 8.2 L Phosphorus Magnesium Total Bilirubin AST Total Protein Albumin Prealbumin Crossmatch 05/24/18 05/24/18 05/24/18 05:40 11:26 17:26 WBC RBC Hgb Hct MCH RDW Lymph % (Auto) [place] % (Auto) Lymph # Seg Neutrophils % Seg Neuts % (Manual) Lymphocytes % (Manual) Seg Neutrophils # Man Lymphocytes # (Manual) PT INR VBG pH Sodium 133 L Potassium Chloride 97.7 L Carbon Dioxide BUN Creatinine 0.2 L Glucose POC Glucose 120 H 113 H Lactic Acid Calcium 8.1 L Phosphorus Magnesium Total Bilirubin AST Total Protein Albumin Prealbumin Crossmatch Allied health notes reviewed: nursing
[2018-05-24] MEDS: REMERON PO SCH (22:45)
[2018-05-25] MEDS: DILAUDID IV PRN ×5 (05:13→20:56)
[2018-05-25] MEDS: ZOFRAN IV PRN ×2 (05:37→11:05)
[2018-05-25 05:44] LABS: BUN/Creatinine Ratio 65; Blood Urea Nitrogen 13 mg/dL (7-17); Calcium 8.5 mg/dL (8.4-10.2); Hemolysis Index 3
[2018-05-25] MEDS: BROVANA NEBU IH SCH ×2 (08:22→20:40)
[2018-05-25] MEDS: PULMICORT IH SCH ×2 (08:22→20:40)
[2018-05-25] MEDS: COZAAR PO SCH (09:12)
[2018-05-25] MEDS: LOPRESSOR PO SCH ×2 (09:12→21:43)
[2018-05-25] MEDS: NEURONTIN PO SCH ×3 (11:05→21:43)
[2018-05-25] MEDS: XANAX PO PRN (11:11)
--- NOTE | 2018-05-25 14:40 | Progress Note ---
Assessment and Plan Pt status quo. feeling well Abd soft CT - no leakage noted. questionable fluid collection by drain tip? irrigate drain to assure not clogged then place on low cont suction. will attempt po liqs in am if no drainage thru next 24 hrs. Objective Vital Signs - 12hr 05/25/18 05/25/18 05/25/18 07:21 08:22 08:41 Temperature 98.0 F Pulse Rate 98 H Pulse Rate [ 96 H 102 H Anterior Bilateral Throughout] Respiratory 17 Rate Respiratory 18 18 Rate [Anterior Bilateral Throughout] Blood Pressure 107/56 O2 Sat by Pulse 95 Oximetry 05/25/18 05/25/18 05/25/18 09:12 11:17 13:17 Temperature 97.6 F Pulse Rate 98 H 97 H Pulse Rate [ Anterior Bilateral Throughout] Respiratory 18 18 Rate Respiratory Rate [Anterior Bilateral Throughout] Blood Pressure 107/56 127/62 O2 Sat by Pulse 94 Oximetry - Labs 05/21/18 07:20 05/25/18 05:00 Diabetes panel 05/25/18 Range/Units 05:00 Sodium 134 L (137-145) mmol/L Potassium 4.6 (3.6-5.0) mmol/L Chloride 97.2 L (98-107) mmol/L Carbon Dioxide 29 (22-30) mmol/L BUN 13 (7-17) mg/dL Creatinine 0.2 L (0.7-1.2) mg/dL Glucose 100 (65-100) mg/dL Calcium 8.5 (8.4-10.2) mg/dL Calcium panel 05/25/18 Range/Units 05:00 Calcium 8.5 (8.4-10.2) mg/dL Phosphorus 4.40 (2.5-4.5) mg/dL Pituitary panel 05/25/18 Range/Units 05:00 Sodium 134 L (137-145) mmol/L Potassium 4.6 (3.6-5.0) mmol/L Chloride 97.2 L (98-107) mmol/L Carbon Dioxide 29 (22-30) mmol/L BUN 13 (7-17) mg/dL Creatinine 0.2 L (0.7-1.2) mg/dL Glucose 100 (65-100) mg/dL Calcium 8.5 (8.4-10.2) mg/dL Adrenal panel 03/18/19 Range/Units 05:00 Sodium 134 L (137-145) mmol/L Potassium 4.6 (3.6-5.0) mmol/L Chloride 97.2 L (98-107) mmol/L Carbon Dioxide 29 (22-30) mmol/L BUN 13 (7-17) mg/dL Creatinine 0.2 L (0.7-1.2) mg/dL Glucose 100 (65-100) mg/dL Calcium 8.5 (8.4-10.2) mg/dL
--- NOTE | 2018-05-25 14:44 | Progress Note ---
Assessment and Plan Patient awake. Weak. Resting on on room air . O2 saturation 95%.No complaint of chest pain, shortness of breath or cough. - Patient Problems (1) Appendicitis with perforation Current Visit: Yes Status: Acute Plan to address problem: S/p resection of perforated appendex. (2) Sepsis Current Visit: Yes Status: Acute Qualifiers: Sepsis type: Escherichia coli Qualified Code(s): A41.51 - Sepsis due to Escherichia coli [E. coli] Plan to address problem: Resolved. Patient off the antibiotics. (3) Acute metabolic encephalopathy Current Visit: No Status: Acute Plan to address problem: Appears improved. Management as per primary care. (4) Marijuana abuse Current Visit: No Status: Acute Plan to address problem: Counselled not use marijuana. Subjective Date of service: 05/25/18 Principal diagnosis: Sepsis; Ex-lap appendectomy and evacuation of pelvic abscess; Peritonitis Interval history: Patient awake. Weak. Resting on on room air . O2 saturation 95%.No complaint of chest pain, shortness of breath or cough. Objective Vital Signs - 12hr 05/25/18 05/25/18 05/25/18 07:21 08:22 08:41 Temperature 98.0 F Pulse Rate 98 H Pulse Rate [ 96 H 102 H Anterior Bilateral Throughout] Respiratory 17 Rate Respiratory 18 18 Rate [Anterior Bilateral Throughout] Blood Pressure 107/56 O2 Sat by Pulse 95 Oximetry 05/25/18 05/25/18 05/25/18 09:12 11:17 13:17 Temperature 97.6 F Pulse Rate 98 H 97 H Pulse Rate [ Anterior Bilateral Throughout] Respiratory 18 18 Rate Respiratory Rate [Anterior Bilateral Throughout] Blood Pressure 107/56 127/62 O2 Sat by Pulse 94 Oximetry Constitutional: no acute distress, alert, other (chronically ill looking this middle aged CF, normocephalic) Eyes: non-icteric ENT: oropharynx moist, other (Mallampati 2) Neck: supple, no lymphadenopathy, no JVD Effort: mildly labored Ascultation: Bilateral: diminished breath sounds, rhonchi (scant in bases) Percussion: Bilateral: not dull Cardiovascular: regular rate and rhythm Gastrointestinal: normoactive bowel sounds, soft, tender (bhargav-op site), non- distended, other (Drain in place with non-bloody effluent) Integumentary: other (poor turgor; ? neurofibromatous nodules over body) Extremities: no cyanosis, no edema, pink and warm, pulses normal Neurologic: normal mental status, non-focal exam, pupils equal and round, motor strength normal and Psychiatric: mood appropriate, anxious CBC and BMP: 05/21/18 07:20 05/25/18 05:00 ABG, PT/INR, D-dimer: ABG POC ABG pH 7.367 (7.35-7.45) 04/19/18 00:19 POC ABG pCO2 36.8 (35-45) 04/19/18 00:19 POC ABG pO2 84 (80-105) 04/19/18 00:19 POC ABG HCO3 21.1 04/19/18 00:19 POC ABG Total CO2 22 04/19/18 00:19 POC ABG O2 Sat 96 04/19/18 00:19 PT/INR, D-dimer PT 15.3 Sec. (12.2-14.9) H 04/22/18 05:19 INR 1.17 (0.87-1.13) H 04/22/18 05:19 Abnormal lab findings: Abnormal Labs 04/18/18 04/18/18 04/18/18 14:30 14:30 14:30 WBC 18.6 H RBC Hgb Hct MCH RDW Lymph % (Auto) [place] % (Auto) Lymph # Seg Neutrophils % Seg Neuts % (Manual) 79.0 H Lymphocytes % (Manual) 4.0 L Seg Neutrophils # Man 14.7 H Lymphocytes # (Manual) 0.7 L PT 16.3 H INR 1.27 H VBG pH Sodium 121 L Potassium 3.0 L Chloride 78.0 L Carbon Dioxide BUN Creatinine 0.5 L Glucose 110 H POC Glucose Lactic Acid Calcium Phosphorus Magnesium Total Bilirubin 1.30 H AST 42 H Total Protein Albumin 3.1 L Prealbumin Crossmatch 04/18/18 04/18/18 04/18/18 14:30 14:30 23:59 WBC RBC Hgb Hct MCH RDW 15.8 H Lymph % (Auto) [place] % (Auto) Lymph # Seg Neutrophils % Seg Neuts % (Manual) 78.0 H Lymphocytes % (Manual) 6.0 L Seg Neutrophils # Man Lymphocytes # (Manual) 0.5 L PT INR VBG pH 7.439 H Sodium Potassium Chloride Carbon Dioxide BUN Creatinine Glucose POC Glucose Lactic Acid 3.60 H* Calcium Phosphorus Magnesium Total Bilirubin AST Total Protein Albumin Prealbumin Crossmatch 04/18/18 04/19/18 04/19/18 23:59 05:19 05:19 WBC 15.0 H RBC Hgb Hct MCH RDW 15.3 H Lymph % (Auto) [place] % (Auto) Lymph # Seg Neutrophils % Seg Neuts % (Manual) Lymphocytes % (Manual) 5.0 L Seg Neutrophils # Man 8.3 H Lymphocytes # (Manual) 0.8 L PT INR VBG pH Sodium 130 L D 133 L Potassium 3.5 L 3.3 L Chloride Carbon Dioxide 20 L D BUN Creatinine 0.5 L 0.6 L Glucose 140 H 115 H POC Glucose Lactic Acid Calcium 7.5 L 7.4 L Phosphorus Magnesium Total Bilirubin AST Total Protein 4.4 L D 4.1 L Albumin 2.0 L 1.9 L Prealbumin Crossmatch 04/19/18 04/19/18 04/20/18 05:19 13:05 05:18 WBC RBC Hgb Hct MCH RDW Lymph % (Auto) [place] % (Auto) Lymph # Seg Neutrophils % Seg Neuts % (Manual) Lymphocytes % (Manual) Seg Neutrophils # Man Lymphocytes # (Manual) PT 19.4 H 17.4 H INR 1.59 H 1.38 H VBG pH Sodium Potassium Chloride Carbon Dioxide BUN Creatinine Glucose POC Glucose Lactic Acid Calcium Phosphorus Magnesium Total Bilirubin AST Total Protein Albumin Prealbumin Crossmatch See Detail 04/20/18 04/20/18 04/21/18 13:47 13:47 04:52 WBC RBC 3.29 L 3.10 L Hgb 9.6 L 8.8 L Hct 28.1 L D 26.6 L MCH RDW 15.3 H 15.4 H Lymph % (Auto) 5.6 L [place] % (Auto) Lymph # 0.4 L Seg Neutrophils % 87.3 H Seg Neuts % (Manual) Lymphocytes % (Manual) Seg Neutrophils # Man Lymphocytes # (Manual) PT INR VBG pH Sodium Potassium Chloride Carbon Dioxide BUN Creatinine 0.3 L Glucose 102 H POC Glucose Lactic Acid Calcium 8.0 L Phosphorus Magnesium Total Bilirubin AST Total Protein Albumin Prealbumin Crossmatch 04/21/18 04/22/18 04/22/18 04:52 05:19 05:19 WBC RBC 3.64 L Hgb Hct MCH RDW Lymph % (Auto) 8.5 L [place] % (Auto) 9.9 H Lymph # 0.6 L Seg Neutrophils % 81.0 H Seg Neuts % (Manual) Lymphocytes % (Manual) Seg Neutrophils # Man Lymphocytes # (Manual) PT 15.3 H INR 1.17 H VBG pH Sodium Potassium 3.2 L Chloride Carbon Dioxide BUN Creatinine 0.3 L Glucose POC Glucose Lactic Acid Calcium 7.6 L Phosphorus Magnesium Total Bilirubin AST Total Protein Albumin Prealbumin Crossmatch 04/22/18 04/24/18 04/24/18 05:19 07:19 07:19 WBC RBC Hgb Hct MCH RDW Lymph % (Auto) [place] % (Auto) Lymph # Seg Neutrophils % Seg Neuts % (Manual) Lymphocytes % (Manual) Seg Neutrophils # Man Lymphocytes # (Manual) PT INR VBG pH Sodium Potassium 3.4 L 2.9 L* Chloride Carbon Dioxide BUN Creatinine 0.3 L 0.3 L Glucose 103 H POC Glucose Lactic Acid Calcium 7.7 L 7.5 L Phosphorus Magnesium 1.60 L Total Bilirubin AST Total Protein 4.3 L Albumin 2.2 L Prealbumin Crossmatch 04/24/18 04/25/18 04/25/18 07:23 06:28 06:28 WBC RBC Hgb Hct MCH RDW 15.3 H 15.9 H Lymph % (Auto) 10.1 L [place] % (Auto) Lymph # 0.8 L Seg Neutrophils % 80.6 H Seg Neuts % (Manual) Lymphocytes % (Manual) 9.0 L Seg Neutrophils # Man Lymphocytes # (Manual) 0.7 L PT INR VBG pH Sodium Potassium 3.0 L Chloride Carbon Dioxide BUN 5 L Creatinine 0.2 L Glucose 108 H POC Glucose Lactic Acid Calcium 7.4 L Phosphorus Magnesium Total Bilirubin AST Total Protein 4.6 L Albumin 2.5 L Prealbumin Crossmatch 04/25/18 04/26/18 04/26/18 06:28 05:45 05:45 WBC 11.9 H RBC Hgb Hct MCH RDW 16.2 H Lymph % (Auto) [place] % (Auto) Lymph # Seg Neutrophils % Seg Neuts % (Manual) Lymphocytes % (Manual) Seg Neutrophils # Man Lymphocytes # (Manual) PT INR VBG pH Sodium Potassium Chloride Carbon Dioxide BUN 5 L Creatinine 0.2 L Glucose 119 H POC Glucose Lactic Acid Calcium 7.7 L Phosphorus 2.00 L 2.20 L Magnesium Total Bilirubin AST Total Protein Albumin Prealbumin Crossmatch 04/27/18 04/28/18 04/28/18 05:33 06:00 06:00 WBC 11.2 H RBC Hgb Hct MCH RDW 16.0 H Lymph % (Auto) [place] % (Auto) Lymph # Seg Neutrophils % Seg Neuts % (Manual) 92.0 H Lymphocytes % (Manual) 5.0 L Seg Neutrophils # Man 10.3 H Lymphocytes # (Manual) 0.6 L PT INR VBG pH Sodium Potassium 3.4 L 3.1 L Chloride Carbon Dioxide BUN 6 L 4 L Creatinine 0.2 L 0.2 L Glucose 119 H POC Glucose Lactic Acid Calcium 7.5 L 7.1 L Phosphorus 2.00 L 2.10 L Magnesium 1.50 L Total Bilirubin AST Total Protein 4.3 L Albumin 2.1 L Prealbumin Crossmatch 04/29/18 04/29/18 04/29/18 05:18 05:18 17:49 WBC 12.0 H RBC Hgb Hct MCH RDW 16.0 H Lymph % (Auto) [place] % (Auto) Lymph # Seg Neutrophils % Seg Neuts % (Manual) 87.0 H Lymphocytes % (Manual) 10.0 L Seg Neutrophils # Man 10.4 H Lymphocytes # (Manual) PT INR VBG pH Sodium 135 L Potassium Chloride Carbon Dioxide BUN Creatinine 0.2 L Glucose 120 H POC Glucose 108 H Lactic Acid Calcium 7.5 L Phosphorus Magnesium Total Bilirubin AST Total Protein Albumin Prealbumin Crossmatch 04/30/18 04/30/18 04/30/18 00:03 05:18 05:41 WBC RBC Hgb Hct MCH RDW Lymph % (Auto) [place] % (Auto) Lymph # Seg Neutrophils % Seg Neuts % (Manual) Lymphocytes % (Manual) Seg Neutrophils # Man Lymphocytes # (Manual) PT INR VBG pH Sodium 133 L Potassium Chloride Carbon Dioxide BUN Creatinine 0.2 L Glucose 119 H POC Glucose 112 H 110 H Lactic Acid Calcium 7.5 L Phosphorus Magnesium Total Bilirubin AST Total Protein Albumin Prealbumin Crossmatch 04/30/18 05/01/18 05/01/18 05:41 00:39 04:45 WBC RBC 3.60 L Hgb Hct MCH RDW 16.0 H Lymph % (Auto) [place] % (Auto) Lymph # Seg Neutrophils % Seg Neuts % (Manual) 88.0 H Lymphocytes % (Manual) 8.0 L Seg Neutrophils # Man Lymphocytes # (Manual) 0.7 L PT INR VBG pH Sodium 132 L Potassium Chloride Carbon Dioxide BUN Creatinine 0.2 L Glucose 101 H POC Glucose 119 H Lactic Acid Calcium 7.6 L Phosphorus Magnesium Total Bilirubin AST Total Protein Albumin Prealbumin Crossmatch 05/01/18 05/01/18 05/01/18 06:30 16:09 23:42 WBC RBC Hgb Hct MCH RDW Lymph % (Auto) [place] % (Auto) Lymph # Seg Neutrophils % Seg Neuts % (Manual) Lymphocytes % (Manual) Seg Neutrophils # Man Lymphocytes # (Manual) PT INR VBG pH Sodium Potassium Chloride Carbon Dioxide BUN Creatinine Glucose POC Glucose 126 H 160 H 113 H Lactic Acid Calcium Phosphorus Magnesium Total Bilirubin AST Total Protein Albumin Prealbumin Crossmatch 05/02/18 05/02/18 05/02/18 04:55 06:41 11:53 WBC RBC Hgb Hct MCH RDW Lymph % (Auto) [place] % (Auto) Lymph # Seg Neutrophils % Seg Neuts % (Manual) Lymphocytes % (Manual) Seg Neutrophils # Man Lymphocytes # (Manual) PT INR VBG pH Sodium 134 L Potassium Chloride Carbon Dioxide BUN Creatinine 0.2 L Glucose 113 H POC Glucose 146 H 113 H Lactic Acid Calcium 7.4 L Phosphorus Magnesium Total Bilirubin AST Total Protein Albumin Prealbumin Crossmatch 05/02/18 05/02/18 05/03/18 17:33 23:37 08:46 WBC RBC 3.36 L Hgb 9.7 L Hct 28.7 L MCH RDW 16.3 H Lymph % (Auto) [place] % (Auto) 10.0 H Lymph # Seg Neutrophils % Seg Neuts % (Manual) Lymphocytes % (Manual) Seg Neutrophils # Man Lymphocytes # (Manual) PT INR VBG pH Sodium Potassium Chloride Carbon Dioxide BUN Creatinine Glucose POC Glucose 106 H 123 H Lactic Acid Calcium Phosphorus Magnesium Total Bilirubin AST Total Protein Albumin Prealbumin Crossmatch 05/03/18 05/03/18 05/04/18 11:54 12:15 06:59 WBC RBC Hgb Hct MCH RDW Lymph % (Auto) [place] % (Auto) Lymph # Seg Neutrophils % Seg Neuts % (Manual) Lymphocytes % (Manual) Seg Neutrophils # Man Lymphocytes # (Manual) PT INR VBG pH Sodium 136 L Potassium Chloride Carbon Dioxide BUN Creatinine 0.2 L Glucose 131 H POC Glucose 109 H 161 H Lactic Acid Calcium 7.6 L Phosphorus Magnesium Total Bilirubin AST Total Protein Albumin Prealbumin Crossmatch 05/04/18 05/04/18 05/04/18 07:03 08:02 11:10 WBC RBC 3.52 L Hgb Hct 29.8 L MCH RDW 16.2 H Lymph % (Auto) [place] % (Auto) 8.6 H Lymph # Seg Neutrophils % Seg Neuts % (Manual) Lymphocytes % (Manual) Seg Neutrophils # Man Lymphocytes # (Manual) PT INR VBG pH Sodium 135 L Potassium Chloride Carbon Dioxide BUN Creatinine 0.2 L Glucose 160 H POC Glucose 106 H Lactic Acid Calcium 7.7 L Phosphorus Magnesium Total Bilirubin AST Total Protein Albumin Prealbumin Crossmatch 05/04/18 05/05/18 05/05/18 23:38 11:28 16:55 WBC RBC Hgb Hct MCH RDW Lymph % (Auto) [place] % (Auto) Lymph # Seg Neutrophils % Seg Neuts % (Manual) Lymphocytes % (Manual) Seg Neutrophils # Man Lymphocytes # (Manual) PT INR VBG pH Sodium Potassium Chloride Carbon Dioxide BUN Creatinine Glucose POC Glucose 121 H 119 H 108 H Lactic Acid Calcium Phosphorus Magnesium Total Bilirubin AST Total Protein Albumin Prealbumin Crossmatch 05/05/18 05/06/18 05/06/18 Unknown 05:35 16:40 WBC RBC Hgb Hct MCH RDW Lymph % (Auto) [place] % (Auto) Lymph # Seg Neutrophils % Seg Neuts % (Manual) Lymphocytes % (Manual) Seg Neutrophils # Man Lymphocytes # (Manual) PT INR VBG pH Sodium 135 L 136 L Potassium Chloride 97.9 L Carbon Dioxide BUN Creatinine 0.2 L 0.2 L Glucose 119 H POC Glucose 133 H Lactic Acid Calcium 8.0 L 8.1 L Phosphorus Magnesium Total Bilirubin AST 46 H Total Protein 5.5 L Albumin 2.7 L Prealbumin Crossmatch 05/06/18 05/07/18 05/07/18 22:07 05:38 05:40 WBC RBC Hgb Hct MCH RDW Lymph % (Auto) [place] % (Auto) Lymph # Seg Neutrophils % Seg Neuts % (Manual) Lymphocytes % (Manual) Seg Neutrophils # Man Lymphocytes # (Manual) PT INR VBG pH Sodium 133 L Potassium Chloride Carbon Dioxide BUN Creatinine 0.2 L Glucose POC Glucose 168 H 107 H Lactic Acid Calcium 8.2 L Phosphorus Magnesium Total Bilirubin AST Total Protein Albumin Prealbumin Crossmatch 05/07/18 05/07/18 05/08/18 11:56 18:04 05:38 WBC RBC Hgb Hct MCH RDW 16.3 H Lymph % (Auto) [place] % (Auto) 7.7 H Lymph # Seg Neutrophils % Seg Neuts % (Manual) Lymphocytes % (Manual) Seg Neutrophils # Man Lymphocytes # (Manual) PT INR VBG pH Sodium Potassium Chloride Carbon Dioxide BUN Creatinine Glucose POC Glucose 145 H 125 H Lactic Acid Calcium Phosphorus Magnesium Total Bilirubin AST Total Protein Albumin Prealbumin Crossmatch 05/08/18 05/08/18 05/08/18 05:38 11:35 16:23 WBC RBC Hgb Hct MCH RDW Lymph % (Auto) [place] % (Auto) Lymph # Seg Neutrophils % Seg Neuts % (Manual) Lymphocytes % (Manual) Seg Neutrophils # Man Lymphocytes # (Manual) PT INR VBG pH Sodium 135 L Potassium Chloride Carbon Dioxide BUN Creatinine 0.2 L Glucose POC Glucose 118 H 131 H Lactic Acid Calcium Phosphorus Magnesium Total Bilirubin AST Total Protein Albumin Prealbumin Crossmatch 05/08/18 05/09/18 05/09/18 21:40 05:46 06:15 WBC RBC Hgb Hct MCH RDW Lymph % (Auto) [place] % (Auto) Lymph # Seg Neutrophils % Seg Neuts % (Manual) Lymphocytes % (Manual) Seg Neutrophils # Man Lymphocytes # (Manual) PT INR VBG pH Sodium 135 L Potassium Chloride 97.5 L Carbon Dioxide BUN Creatinine 0.2 L Glucose POC Glucose 110 H 115 H Lactic Acid Calcium Phosphorus Magnesium Total Bilirubin AST Total Protein Albumin Prealbumin Crossmatch 05/09/18 05/09/18 05/10/18 11:28 23:53 06:22 WBC RBC Hgb Hct MCH RDW Lymph % (Auto) [place] % (Auto) Lymph # Seg Neutrophils % Seg Neuts % (Manual) Lymphocytes % (Manual) Seg Neutrophils # Man Lymphocytes # (Manual) PT INR VBG pH Sodium Potassium Chloride Carbon Dioxide BUN Creatinine Glucose POC Glucose 145 H 132 H 149 H Lactic Acid Calcium Phosphorus Magnesium Total Bilirubin AST Total Protein Albumin Prealbumin Crossmatch 05/10/18 05/10/18 05/11/18 16:14 23:24 05:00 WBC RBC Hgb Hct MCH RDW Lymph % (Auto) [place] % (Auto) Lymph # Seg Neutrophils % Seg Neuts % (Manual) Lymphocytes % (Manual) Seg Neutrophils # Man Lymphocytes # (Manual) PT INR VBG pH Sodium Potassium Chloride Carbon Dioxide BUN Creatinine 0.2 L Glucose 113 H POC Glucose 119 H 119 H Lactic Acid Calcium Phosphorus Magnesium Total Bilirubin AST Total Protein Albumin Prealbumin Crossmatch 05/11/18 05/11/18 05/11/18 05:57 11:23 16:29 WBC RBC Hgb Hct MCH RDW Lymph % (Auto) [place] % (Auto) Lymph # Seg Neutrophils % Seg Neuts % (Manual) Lymphocytes % (Manual) Seg Neutrophils # Man Lymphocytes # (Manual) PT INR VBG pH Sodium Potassium Chloride Carbon Dioxide BUN Creatinine Glucose POC Glucose 173 H 143 H 159 H Lactic Acid Calcium Phosphorus Magnesium Total Bilirubin AST Total Protein Albumin Prealbumin Crossmatch 05/12/18 05/12/18 05/12/18 00:47 06:23 11:21 WBC RBC Hgb Hct MCH RDW Lymph % (Auto) [place] % (Auto) Lymph # Seg Neutrophils % Seg Neuts % (Manual) Lymphocytes % (Manual) Seg Neutrophils # Man Lymphocytes # (Manual) PT INR VBG pH Sodium Potassium Chloride Carbon Dioxide BUN Creatinine Glucose POC Glucose 139 H 136 H 116 H Lactic Acid Calcium Phosphorus Magnesium Total Bilirubin AST Total Protein Albumin Prealbumin Crossmatch 05/12/18 05/12/18 05/12/18 17:19 17:22 22:22 WBC RBC Hgb Hct MCH RDW Lymph % (Auto) [place] % (Auto) Lymph # Seg Neutrophils % Seg Neuts % (Manual) Lymphocytes % (Manual) Seg Neutrophils # Man Lymphocytes # (Manual) PT INR VBG pH Sodium Potassium Chloride Carbon Dioxide BUN Creatinine Glucose POC Glucose 329 H 116 H 124 H Lactic Acid Calcium Phosphorus Magnesium Total Bilirubin AST Total Protein Albumin Prealbumin Crossmatch 05/13/18 05/13/18 05/13/18 18:35 22:25 Unknown WBC RBC Hgb Hct MCH RDW Lymph % (Auto) [place] % (Auto) Lymph # Seg Neutrophils % Seg Neuts % (Manual) Lymphocytes % (Manual) Seg Neutrophils # Man Lymphocytes # (Manual) PT INR VBG pH Sodium 136 L Potassium Chloride 97.8 L Carbon Dioxide BUN Creatinine 0.2 L Glucose POC Glucose 137 H 106 H Lactic Acid Calcium Phosphorus Magnesium Total Bilirubin AST 41 H Total Protein Albumin 3.5 L Prealbumin Crossmatch 0305/14/18 05/14/18 06:40 06:40 12:48 WBC RBC 3.48 L Hgb 9.8 L Hct 29.1 L MCH RDW 15.6 H Lymph % (Auto) [place] % (Auto) Lymph # Seg Neutrophils % Seg Neuts % (Manual) Lymphocytes % (Manual) Seg Neutrophils # Man Lymphocytes # (Manual) PT INR VBG pH Sodium Potassium Chloride Carbon Dioxide BUN Creatinine 0.2 L Glucose POC Glucose 113 H Lactic Acid Calcium 8.1 L Phosphorus Magnesium Total Bilirubin AST Total Protein Albumin Prealbumin Crossmatch 05/14/18 05/14/18 05/15/18 17:52 22:04 05:10 WBC RBC Hgb Hct MCH RDW Lymph % (Auto) [place] % (Auto) Lymph # Seg Neutrophils % Seg Neuts % (Manual) Lymphocytes % (Manual) Seg Neutrophils # Man Lymphocytes # (Manual) PT INR VBG pH Sodium 135 L Potassium Chloride Carbon Dioxide BUN Creatinine 0.2 L Glucose POC Glucose 106 H 107 H Lactic Acid Calcium 8.2 L Phosphorus Magnesium Total Bilirubin AST Total Protein Albumin Prealbumin Crossmatch 05/15/18 05/15/18 05/15/18 06:24 11:31 16:47 WBC RBC Hgb Hct MCH RDW Lymph % (Auto) [place] % (Auto) Lymph # Seg Neutrophils % Seg Neuts % (Manual) Lymphocytes % (Manual) Seg Neutrophils # Man Lymphocytes # (Manual) PT INR VBG pH Sodium Potassium Chloride Carbon Dioxide BUN Creatinine Glucose POC Glucose 125 H 133 H 135 H Lactic Acid Calcium Phosphorus Magnesium Total Bilirubin AST Total Protein Albumin Prealbumin Crossmatch 05/16/18 05/16/18 05/16/18 00:13 04:30 05:59 WBC RBC Hgb Hct MCH RDW Lymph % (Auto) [place] % (Auto) Lymph # Seg Neutrophils % Seg Neuts % (Manual) Lymphocytes % (Manual) Seg Neutrophils # Man Lymphocytes # (Manual) PT INR VBG pH Sodium Potassium Chloride Carbon Dioxide BUN Creatinine 0.2 L Glucose POC Glucose 132 H 113 H Lactic Acid Calcium Phosphorus Magnesium Total Bilirubin AST Total Protein Albumin Prealbumin Crossmatch 05/16/18 05/16/18 05/17/18 13:03 18:51 05:06 WBC RBC Hgb Hct MCH RDW Lymph % (Auto) [place] % (Auto) Lymph # Seg Neutrophils % Seg Neuts % (Manual) Lymphocytes % (Manual) Seg Neutrophils # Man Lymphocytes # (Manual) PT INR VBG pH Sodium Potassium Chloride Carbon Dioxide BUN Creatinine Glucose POC Glucose 112 H 111 H 128 H Lactic Acid Calcium Phosphorus Magnesium Total Bilirubin AST Total Protein Albumin Prealbumin Crossmatch 05/17/18 05/17/18 05/18/18 06:07 23:54 07:05 WBC RBC Hgb Hct MCH RDW Lymph % (Auto) [place] % (Auto) Lymph # Seg Neutrophils % Seg Neuts % (Manual) Lymphocytes % (Manual) Seg Neutrophils # Man Lymphocytes # (Manual) PT INR VBG pH Sodium 135 L Potassium Chloride Carbon Dioxide BUN Creatinine 0.2 L Glucose 133 H POC Glucose 120 H 119 H Lactic Acid Calcium Phosphorus Magnesium Total Bilirubin AST Total Protein Albumin Prealbumin Crossmatch 05/18/18 05/18/18 05/18/18 07:43 11:29 16:29 WBC RBC Hgb Hct MCH RDW Lymph % (Auto) [place] % (Auto) Lymph # Seg Neutrophils % Seg Neuts % (Manual) Lymphocytes % (Manual) Seg Neutrophils # Man Lymphocytes # (Manual) PT INR VBG pH Sodium Potassium Chloride Carbon Dioxide BUN Creatinine 0.2 L Glucose 117 H POC Glucose 149 H 108 H Lactic Acid Calcium 8.2 L Phosphorus Magnesium Total Bilirubin AST Total Protein Albumin Prealbumin Crossmatch 05/19/18 05/19/18 05/20/18 23:15 Unknown 05:59 WBC RBC Hgb Hct MCH RDW Lymph % (Auto) [place] % (Auto) Lymph # Seg Neutrophils % Seg Neuts % (Manual) Lymphocytes % (Manual) Seg Neutrophils # Man Lymphocytes # (Manual) PT INR VBG pH Sodium 136 L Potassium Chloride Carbon Dioxide BUN Creatinine 0.2 L Glucose POC Glucose 106 H 114 H Lactic Acid Calcium Phosphorus 4.60 H D Magnesium Total Bilirubin AST Total Protein Albumin Prealbumin Crossmatch 05/20/18 05/20/18 05/20/18 06:25 17:52 23:59 WBC RBC Hgb Hct MCH RDW Lymph % (Auto) [place] % (Auto) Lymph # Seg Neutrophils % Seg Neuts % (Manual) Lymphocytes % (Manual) Seg Neutrophils # Man Lymphocytes # (Manual) PT INR VBG pH Sodium 135 L Potassium Chloride Carbon Dioxide BUN Creatinine 0.2 L Glucose 108 H POC Glucose 118 H 186 H Lactic Acid Calcium 8.3 L Phosphorus Magnesium Total Bilirubin AST Total Protein 5.6 L Albumin 2.9 L Prealbumin 0.113 L Crossmatch 05/21/18 05/21/18 05/21/18 04:40 06:36 07:20 WBC RBC 3.40 L Hgb 9.2 L Hct 28.0 L MCH 27 L RDW 16.2 H Lymph % (Auto) [place] % (Auto) 10.3 H Lymph # Seg Neutrophils % Seg Neuts % (Manual) Lymphocytes % (Manual) Seg Neutrophils # Man Lymphocytes # (Manual) PT INR VBG pH Sodium 135 L Potassium Chloride Carbon Dioxide BUN Creatinine < 0.2 L Glucose POC Glucose 138 H Lactic Acid Calcium 8.2 L Phosphorus Magnesium Total Bilirubin AST Total Protein Albumin Prealbumin Crossmatch 05/21/18 05/21/18 05/22/18 11:12 18:17 00:10 WBC RBC Hgb Hct MCH RDW Lymph % (Auto) [place] % (Auto) Lymph # Seg Neutrophils % Seg Neuts % (Manual) Lymphocytes % (Manual) Seg Neutrophils # Man Lymphocytes # (Manual) PT INR VBG pH Sodium Potassium Chloride Carbon Dioxide BUN Creatinine Glucose POC Glucose 137 H 134 H 127 H Lactic Acid Calcium Phosphorus Magnesium Total Bilirubin AST Total Protein Albumin Prealbumin Crossmatch 05/22/18 05/22/18 05/22/18 05:33 05:35 11:31 WBC RBC Hgb Hct MCH RDW Lymph % (Auto) [place] % (Auto) Lymph # Seg Neutrophils % Seg Neuts % (Manual) Lymphocytes % (Manual) Seg Neutrophils # Man Lymphocytes # (Manual) PT INR VBG pH Sodium Potassium Chloride Carbon Dioxide BUN Creatinine 0.2 L Glucose 115 H POC Glucose 135 H 171 H Lactic Acid Calcium 8.3 L Phosphorus Magnesium Total Bilirubin AST Total Protein Albumin Prealbumin Crossmatch 05/23/18 05/23/18 05/23/18 00:29 05:25 11:30 WBC RBC Hgb Hct MCH RDW Lymph % (Auto) [place] % (Auto) Lymph # Seg Neutrophils % Seg Neuts % (Manual) Lymphocytes % (Manual) Seg Neutrophils # Man Lymphocytes # (Manual) PT INR VBG pH Sodium 135 L Potassium Chloride Carbon Dioxide BUN Creatinine 0.2 L Glucose 113 H POC Glucose 157 H 141 H Lactic Acid Calcium 8.2 L Phosphorus Magnesium Total Bilirubin AST Total Protein Albumin Prealbumin Crossmatch 05/24/18 05/24/18 05/24/18 05:40 11:26 17:26 WBC RBC Hgb Hct MCH RDW Lymph % (Auto) [place] % (Auto) Lymph # Seg Neutrophils % Seg Neuts % (Manual) Lymphocytes % (Manual) Seg Neutrophils # Man Lymphocytes # (Manual) PT INR VBG pH Sodium 133 L Potassium Chloride 97.7 L Carbon Dioxide BUN Creatinine 0.2 L Glucose POC Glucose 120 H 113 H Lactic Acid Calcium 8.1 L Phosphorus Magnesium Total Bilirubin AST Total Protein Albumin Prealbumin Crossmatch 05/25/18 05:00 WBC RBC Hgb Hct MCH RDW Lymph % (Auto) [place] % (Auto) Lymph # Seg Neutrophils % Seg Neuts % (Manual) Lymphocytes % (Manual) Seg Neutrophils # Man Lymphocytes # (Manual) PT INR VBG pH Sodium 134 L Potassium Chloride 97.2 L Carbon Dioxide BUN Creatinine 0.2 L Glucose POC Glucose Lactic Acid Calcium Phosphorus Magnesium Total Bilirubin AST Total Protein Albumin Prealbumin Crossmatch Allied health notes reviewed: nursing
--- NOTE | 2018-05-25 15:58 | Progress Note ---
Assessment and Plan /Sepsis Etiology secondary to gangrenous and perforated appendix causing intra- abdominal/pelvic abscess. Patient is status post exploratory laparotomy with appendectomy and evacuation of pelvic abscess. Now off antibiotics and noted ID signed off. No fever off antibiotics. /Hypotension-resolved BP better, /Perforated appendix s/p exploratory lap Cont. TPN plan for repeat CT abdomen/pelvis today /Chronic hep C. Untreated. Outpatient follow-up. /Accel Hypertension. continue Cozaar to 100mg. Cont. Hydralazine prn. /Diarrhea: s/p lmodium prn x 1 /Tachycardia: secondary to dehydration and deconditioning. Fluids to be given and also started Low dose BB. /COPD. Compensated. nebs as needed /Neurofibromatosis: outpt follow up /Tobacco abuse. Patient counseled on smoking cessation FOR 15 MINS, Patient verbalized understanding and will think about it. /Severe protein calorie malnutrition; sql application developer consulted. continue with TPN Disposition - when cleared by surgery Brief history: The patient is a 57-year-old female with hypertension, neurofibromatosis, hepatitis C, COPD, nicotine dependence presented to the emergency room on 04/18/18 with complaints of abdominal pain going on for [address] scan obtained in the emergency room revealed a ruptured appendix with associated intra-abdominal abscess. General surgery was consulted and the patient underwent an emergent exploratory laparotomy with evacuation of pelvic abscess. She was noted to have a gangrenous, perforated appendix eroding including into the small bowel. As per the op note, the abscess could not be drained as the entire abscess and inflammatory process had trapped the small bowel, which was mobilized and she u nderwent an ileocolic anastomosis. The patient went back to the OR on 04/25/18 for drain dislodgment. Surgical cultures growing ECOLI and beta hemolytic strep group C, ester albicans and enteroccocus faecium. Per surgery considering plan to transfer to LTAC * pt must continue on current TPN regimen and sandostatin-pt refused the later due to diarrhea * Continue local wd care * Surgical culture grew Ecoli and ester * If pt begins experiencing RLQ abd pain, Drain must be re-placed on low continues suction * CT abdomen: 05/18/18- Still shows minimal drainage, per surgery will repeat in a week - repeat CT of abd & pelvis with PO contrast to be scheduled for today * Urology was consulted for possible entro-vesico fistula due to the color of the urine, cystogram was normal. * Pt needs to remain NPO except for ice chips, meds and popsicles until the results of her repeat CT today showed improvement * Pt may have retention sutures removed today * Insurance denies LTAC, recommends SNF. Both surgeon and Patient believe SNF is the wrong place Hospitalist Physical VITAL SIGNS: Reviewed. GENERAL: The patient appeared well nourished and normally developed. Cachectic. Vital signs as documented. Temporal wasting noted HEAD: No signs of head trauma. marked tempral wasting EYES: Pupils are equal. Extraocular motions intact. EARS: Hearing grossly intact. MOUTH: Oropharynx is normal. NECK: No adenopathy, no JVD. CHEST: Chest with clear breath sounds bilaterally. No wheezes, rales, or rhonchi. CARDIAC: Regular rate and rhythm. S1 and S2, without murmurs, gallops, or rubs. VASCULAR: No Edema. Peripheral pulses normal and equal in all extremities. ABDOMEN: Soft, midly distended, some tenderness. bilateral drain noted. hypoactive BS No rebound or guarding, and no masses palpated. MUSCULOSKELETAL: Good range of motion of all major joints. Extremities without clubbing, cyanosis or edema. NEUROLOGIC EXAM: Alert and oriented x 3. No focal sensory or strength deficits. Speech normal. Follows commands. PSYCHIATRIC: Mood normal. SKIN: neurofibromatosis lesions on face Subjective Date of service: 05/25/18 Principal diagnosis: Sepsis; Ex-lap appendectomy and evacuation of pelvic abscess; Peritonitis Interval history: Patient seen and examined this am with nursing staff. States feels better. abdominal pain improved repeat CT abdomen/pelvis today Objective - Constitutional Vitals: Vital Signs - 12hr 05/25/18 05/25/18 05/25/18 07:21 08:22 08:41 Temperature 98.0 F Pulse Rate 98 H Pulse Rate [ 96 H 102 H Anterior Bilateral Throughout] Respiratory 17 Rate Respiratory 18 18 Rate [Anterior Bilateral Throughout] Blood Pressure 107/56 O2 Sat by Pulse 95 Oximetry 05/25/18 05/25/18 05/25/18 09:12 11:17 13:17 Temperature 97.6 F Pulse Rate 98 H 97 H Pulse Rate [ Anterior Bilateral Throughout] Respiratory 18 18 Rate Respiratory Rate [Anterior Bilateral Throughout] Blood Pressure 107/56 127/62 O2 Sat by Pulse 94 Oximetry 05/25/18 13:47 Temperature Pulse Rate Pulse Rate [ Anterior Bilateral Throughout] Respiratory 18 Rate Respiratory Rate [Anterior Bilateral Throughout] Blood Pressure O2 Sat by Pulse Oximetry - Labs CBC & Chem 7: 05/21/18 07:20 05/26/18 06:15 Labs: Abnormal lab results 05/24/18 05/25/18 Range/Units 17:26 05:00 Sodium 134 L (137-145) mmol/L Chloride 97.2 L (98-107) mmol/L Creatinine 0.2 L (0.7-1.2) mg/dL POC Glucose 113 H (70-105)
[2018-05-25] MEDS ORDERED: TPN ADULT 1,800 ML IV SCH (20:00)
[2018-05-25] MEDS ORDERED: INTRALIPID 20% 250 ML IV SCH (20:00)
[2018-05-25] MEDS: REMERON PO SCH (22:21)
[2018-05-26] MEDS: DILAUDID IV PRN ×6 (02:48→21:09)
[2018-05-26] MEDS: XANAX PO PRN ×2 (02:52→10:27)
[2018-05-26 06:39] LABS: BUN/Creatinine Ratio 43; Blood Urea Nitrogen 13 mg/dL (7-17); Calcium 8.5 mg/dL (8.4-10.2); Hemolysis Index 1
--- NOTE | 2018-05-26 08:11 | Cat Scan Report ---
CT ABDOMEN PELVIS WITH CONTRAST: HISTORY: Followup bowel leak, pelvic abscess. COMPARISON: Multiple previous CTs the most recent being 05/18/18. TECHNIQUE: Helical CT in 1.25mm intervals following IV contrast. Sagittal and coronal reconstructions. FINDINGS: The right lower quadrant pelvic drain remains in the same position. A fluid collection measuring up to 3.9 x 3.3 cm in axial plane has reaccumulated at the distal tip of the drainage catheter. This collection appears to displace the rectum. There is oral contrast in the distal small bowel loops and proximal colon. No leakage of oral contrast is appreciated. No evidence for bowel obstruction. The liver, biliary system, pancreas, kidneys and adrenal glands are unremarkable. Moderate splenomegaly measuring 17 7 m is unchanged. Vascular structures remain patent and unremarkable. The lung bases are adequately aerated although unspecified cystic lung disease is noted and unchanged. Normal heart size. IMPRESSION: No leakage of oral contrast from the GI system is detected. There appears to be increased or new fluid collection surrounding the distal drainage catheter in the pelvis. These findings were discussed with Dr. Shelton at 1350 hrs.
[2018-05-26] MEDS: BROVANA NEBU IH SCH (08:44)
[2018-05-26] MEDS: PULMICORT IH SCH (08:44)
[2018-05-26] MEDS: NEURONTIN PO SCH ×3 (09:04→21:11)
[2018-05-26] MEDS: DURAGESIC TD SCH (10:17)
[2018-05-26] MEDS: COZAAR PO SCH (10:25)
[2018-05-26] MEDS: LOPRESSOR PO SCH ×2 (10:25→21:29)
--- NOTE | 2018-05-26 11:52 | Progress Note ---
Assessment and Plan Pt feeling well without compl. less than 20 cc of drainage after po contrast Abd soft, non tender will attempt cl liq diet and monitor drainage Objective Vital Signs - 12hr 05/26/18 05/26/18 05/26/18 06:24 06:44 08:00 Temperature 98.9 F Pulse Rate 103 H Pulse Rate [ 87 Anterior Bilateral Throughout] Pulse Rate [ 98 H Throughout] Respiratory 18 18 Rate Respiratory 18 Rate [Anterior Bilateral Throughout] Respiratory 18 Rate [ Throughout] Blood Pressure 103/45 O2 Sat by Pulse 97 Oximetry - Labs 05/21/18 07:20 05/26/18 06:15 Diabetes panel 05/26/18 Range/Units 06:15 Sodium 136 L (137-145) mmol/L Potassium 4.4 (3.6-5.0) mmol/L Chloride 102.4 (98-107) mmol/L Carbon Dioxide 26 (22-30) mmol/L BUN 13 (7-17) mg/dL Creatinine 0.3 L (0.7-1.2) mg/dL Glucose 100 (65-100) mg/dL Calcium 8.5 (8.4-10.2) mg/dL Calcium panel 05/26/18 Range/Units 06:15 Calcium 8.5 (8.4-10.2) mg/dL Phosphorus 4.20 (2.5-4.5) mg/dL Pituitary panel 05/26/18 Range/Units 06:15 Sodium 136 L (137-145) mmol/L Potassium 4.4 (3.6-5.0) mmol/L Chloride 102.4 (98-107) mmol/L Carbon Dioxide 26 (22-30) mmol/L BUN 13 (7-17) mg/dL Creatinine 0.3 L (0.7-1.2) mg/dL Glucose 100 (65-100) mg/dL Calcium 8.5 (8.4-10.2) mg/dL Adrenal panel 05/26/18 Range/Units 06:15 Sodium 136 L (137-145) mmol/L Potassium 4.4 (3.6-5.0) mmol/L Chloride 102.4 (98-107) mmol/L Carbon Dioxide 26 (22-30) mmol/L BUN 13 (7-17) mg/dL Creatinine 0.3 L (0.7-1.2) mg/dL Glucose 100 (65-100) mg/dL Calcium 8.5 (8.4-10.2) mg/dL
--- NOTE | 2018-05-26 13:47 | Progress Note ---
Assessment and Plan Patient awake. Weak. Resting on on room air . O2 saturation 97%.No complaint of chest pain, shortness of breath or cough.Patient says feeling little better. Start drinking fluids. - Patient Problems (1) Appendicitis with perforation Current Visit: Yes Status: Acute Plan to address problem: S/p resection of perforated appendex. (2) Sepsis Current Visit: Yes Status: Acute Qualifiers: Sepsis type: Escherichia coli Qualified Code(s): A41.51 - Sepsis due to Escherichia coli [E. coli] Plan to address problem: Resolved. Patient off the antibiotics. (3) Acute metabolic encephalopathy Current Visit: No Status: Acute Plan to address problem: Appears improved. Management as per primary care. (4) Marijuana abuse Current Visit: No Status: Acute Plan to address problem: Counselled not use marijuana. Subjective Date of service: 05/26/18 Principal diagnosis: Sepsis; Ex-lap appendectomy and evacuation of pelvic absces s; Peritonitis Interval history: Patient awake. Weak. Resting on on room air . O2 saturation 97%.No complaint of chest pain, shortness of breath or cough.Patient says feeling little better. Start drinking fluids. Objective Vital Signs - 12hr 05/26/18 05/26/18 05/26/18 06:24 06:44 08:00 Temperature 98.9 F Pulse Rate 103 H Pulse Rate [ 87 Anterior Bilateral Throughout] Pulse Rate [ 98 H Throughout] Respiratory 18 18 Rate Respiratory 18 Rate [Anterior Bilateral Throughout] Respiratory 18 Rate [ Throughout] Blood Pressure 103/45 O2 Sat by Pulse 97 Oximetry Constitutional: no acute distress, alert, other (chronically ill looking this middle aged CF, normocephalic) Eyes: non-icteric ENT: oropharynx moist, other (Mallampati 2) Neck: supple, no lymphadenopathy, no JVD Effort: mildly labored Ascultation: Bilateral: diminished breath sounds, rhonchi (scant in bases) Percussion: Bilateral: not dull Cardiovascular: regular rate and rhythm Gastrointestinal: normoactive bowel sounds, soft, tender (bhargav-op site), non- distended, other (Drain in place with non-bloody effluent) Integumentary: other (poor turgor; ? neurofibromatous nodules over body) Extremities: no cyanosis, no edema, pink and warm, pulses normal Neurologic: normal mental status, non-focal exam, pupils equal and round, motor strength normal and Psychiatric: mood appropriate, anxious CBC and BMP: 05/21/18 07:20 05/26/18 06:15 ABG, PT/INR, D-dimer: ABG POC ABG pH 7.367 (7.35-7.45) 04/19/18 00:19 POC ABG pCO2 36.8 (35-45) 04/19/18 00:19 POC ABG pO2 84 (80-105) 04/19/18 00:19 POC ABG HCO3 21.1 04/19/18 00:19 POC ABG Total CO2 22 04/19/18 00:19 POC ABG O2 Sat 96 04/19/18 00:19 PT/INR, D-dimer PT 15.3 Sec. (12.2-14.9) H 04/22/18 05:19 INR 1.17 (0.87-1.13) H 04/22/18 05:19 Abnormal lab findings: Abnormal Labs 04/18/18 04/18/18 04/18/18 14:30 14:30 14:30 WBC 18.6 H RBC Hgb Hct MCH RDW Lymph % (Auto) [place] % (Auto) Lymph # Seg Neutrophils % Seg Neuts % (Manual) 79.0 H Lymphocytes % (Manual) 4.0 L Seg Neutrophils # Man 14.7 H Lymphocytes # (Manual) 0.7 L PT 16.3 H INR 1.27 H VBG pH Sodium 121 L Potassium 3.0 L Chloride 78.0 L Carbon Dioxide BUN Creatinine 0.5 L Glucose 110 H POC Glucose Lactic Acid Calcium Phosphorus Magnesium Total Bilirubin 1.30 H AST 42 H Total Protein Albumin 3.1 L Prealbumin Crossmatch 04/18/18 04/18/18 04/18/18 14:30 14:30 23:59 WBC RBC Hgb Hct MCH RDW 15.8 H Lymph % (Auto) [place] % (Auto) Lymph # Seg Neutrophils % Seg Neuts % (Manual) 78.0 H Lymphocytes % (Manual) 6.0 L Seg Neutrophils # Man Lymphocytes # (Manual) 0.5 L PT INR VBG pH 7.439 H Sodium Potassium Chloride Carbon Dioxide BUN Creatinine Glucose POC Glucose Lactic Acid 3.60 H* Calcium Phosphorus Magnesium Total Bilirubin AST Total Protein Albumin Prealbumin Crossmatch 04/18/18 04/19/18 04/19/18 23:59 05:19 05:19 WBC 15.0 H RBC Hgb Hct MCH RDW 15.3 H Lymph % (Auto) [place] % (Auto) Lymph # Seg Neutrophils % Seg Neuts % (Manual) Lymphocytes % (Manual) 5.0 L Seg Neutrophils # Man 8.3 H Lymphocytes # (Manual) 0.8 L PT INR VBG pH Sodium 130 L D 133 L Potassium 3.5 L 3.3 L Chloride Carbon Dioxide 20 L D BUN Creatinine 0.5 L 0.6 L Glucose 140 H 115 H POC Glucose Lactic Acid Calcium 7.5 L 7.4 L Phosphorus Magnesium Total Bilirubin AST Total Protein 4.4 L D 4.1 L Albumin 2.0 L 1.9 L Prealbumin Crossmatch 04/19/18 04/19/18 04/20/18 05:19 13:05 05:18 WBC RBC Hgb Hct MCH RDW Lymph % (Auto) [place] % (Auto) Lymph # Seg Neutrophils % Seg Neuts % (Manual) Lymphocytes % (Manual) Seg Neutrophils # Man Lymphocytes # (Manual) PT 19.4 H 17.4 H INR 1.59 H 1.38 H VBG pH Sodium Potassium Chloride Carbon Dioxide BUN Creatinine Glucose POC Glucose Lactic Acid Calcium Phosphorus Magnesium Total Bilirubin AST Total Protein Albumin Prealbumin Crossmatch See Detail 04/20/18 04/20/18 04/21/18 13:47 13:47 04:52 WBC RBC 3.29 L 3.10 L Hgb 9.6 L 8.8 L Hct 28.1 L D 26.6 L MCH RDW 15.3 H 15.4 H Lymph % (Auto) 5.6 L [place] % (Auto) Lymph # 0.4 L Seg Neutrophils % 87.3 H Seg Neuts % (Manual) Lymphocytes % (Manual) Seg Neutrophils # Man Lymphocytes # (Manual) PT INR VBG pH Sodium Potassium Chloride Carbon Dioxide BUN Creatinine 0.3 L Glucose 102 H POC Glucose Lactic Acid Calcium 8.0 L Phosphorus Magnesium Total Bilirubin AST Total Protein Albumin Prealbumin Crossmatch 04/21/18 04/22/18 04/22/18 04:52 05:19 05:19 WBC RBC 3.64 L Hgb Hct MCH RDW Lymph % (Auto) 8.5 L [place] % (Auto) 9.9 H Lymph # 0.6 L Seg Neutrophils % 81.0 H Seg Neuts % (Manual) Lymphocytes % (Manual) Seg Neutrophils # Man Lymphocytes # (Manual) PT 15.3 H INR 1.17 H VBG pH Sodium Potassium 3.2 L Chloride Carbon Dioxide BUN Creatinine 0.3 L Glucose POC Glucose Lactic Acid Calcium 7.6 L Phosphorus Magnesium Total Bilirubin AST Total Protein Albumin Prealbumin Crossmatch 04/22/18 04/24/18 04/24/18 05:19 07:19 07:19 WBC RBC Hgb Hct MCH RDW Lymph % (Auto) [place] % (Auto) Lymph # Seg Neutrophils % Seg Neuts % (Manual) Lymphocytes % (Manual) Seg Neutrophils # Man Lymphocytes # (Manual) PT INR VBG pH Sodium Potassium 3.4 L 2.9 L* Chloride Carbon Dioxide BUN Creatinine 0.3 L 0.3 L Glucose 103 H POC Glucose Lactic Acid Calcium 7.7 L 7.5 L Phosphorus Magnesium 1.60 L Total Bilirubin AST Total Protein 4.3 L Albumin 2.2 L Prealbumin Crossmatch 04/24/18 04/25/18 04/25/18 07:23 06:28 06:28 WBC RBC Hgb Hct MCH RDW 15.3 H 15.9 H Lymph % (Auto) 10.1 L [place] % (Auto) Lymph # 0.8 L Seg Neutrophils % 80.6 H Seg Neuts % (Manual) Lymphocytes % (Manual) 9.0 L Seg Neutrophils # Man Lymphocytes # (Manual) 0.7 L PT INR VBG pH Sodium Potassium 3.0 L Chloride Carbon Dioxide BUN 5 L Creatinine 0.2 L Glucose 108 H POC Glucose Lactic Acid Calcium 7.4 L Phosphorus Magnesium Total Bilirubin AST Total Protein 4.6 L Albumin 2.5 L Prealbumin Crossmatch 04/25/18 04/26/18 04/26/18 06:28 05:45 05:45 WBC 11.9 H RBC Hgb Hct MCH RDW 16.2 H Lymph % (Auto) [place] % (Auto) Lymph # Seg Neutrophils % Seg Neuts % (Manual) Lymphocytes % (Manual) Seg Neutrophils # Man Lymphocytes # (Manual) PT INR VBG pH Sodium Potassium Chloride Carbon Dioxide BUN 5 L Creatinine 0.2 L Glucose 119 H POC Glucose Lactic Acid Calcium 7.7 L Phosphorus 2.00 L 2.20 L Magnesium Total Bilirubin AST Total Protein Albumin Prealbumin Crossmatch 04/27/18 04/28/18 04/28/18 05:33 06:00 06:00 WBC 11.2 H RBC Hgb Hct MCH RDW 16.0 H Lymph % (Auto) [place] % (Auto) Lymph # Seg Neutrophils % Seg Neuts % (Manual) 92.0 H Lymphocytes % (Manual) 5.0 L Seg Neutrophils # Man 10.3 H Lymphocytes # (Manual) 0.6 L PT INR VBG pH Sodium Potassium 3.4 L 3.1 L Chloride Carbon Dioxide BUN 6 L 4 L Creatinine 0.2 L 0.2 L Glucose 119 H POC Glucose Lactic Acid Calcium 7.5 L 7.1 L Phosphorus 2.00 L 2.10 L Magnesium 1.50 L Total Bilirubin AST Total Protein 4.3 L Albumin 2.1 L Prealbumin Crossmatch 04/29/18 04/29/18 04/29/18 05:18 05:18 17:49 WBC 12.0 H RBC Hgb Hct MCH RDW 16.0 H Lymph % (Auto) [place] % (Auto) Lymph # Seg Neutrophils % Seg Neuts % (Manual) 87.0 H Lymphocytes % (Manual) 10.0 L Seg Neutrophils # Man 10.4 H Lymphocytes # (Manual) PT INR VBG pH Sodium 135 L Potassium Chloride Carbon Dioxide BUN Creatinine 0.2 L Glucose 120 H POC Glucose 108 H Lactic Acid Calcium 7.5 L Phosphorus Magnesium Total Bilirubin AST Total Protein Albumin Prealbumin Crossmatch 04/30/18 04/30/18 04/30/18 00:03 05:18 05:41 WBC RBC Hgb Hct MCH RDW Lymph % (Auto) [place] % (Auto) Lymph # Seg Neutrophils % Seg Neuts % (Manual) Lymphocytes % (Manual) Seg Neutrophils # Man Lymphocytes # (Manual) PT INR VBG pH Sodium 133 L Potassium Chloride Carbon Dioxide BUN Creatinine 0.2 L Glucose 119 H POC Glucose 112 H 110 H Lactic Acid Calcium 7.5 L Phosphorus Magnesium Total Bilirubin AST Total Protein Albumin Prealbumin Crossmatch 04/30/18 05/01/18 05/01/18 05:41 00:39 04:45 WBC RBC 3.60 L Hgb Hct MCH RDW 16.0 H Lymph % (Auto) [place] % (Auto) Lymph # Seg Neutrophils % Seg Neuts % (Manual) 88.0 H Lymphocytes % (Manual) 8.0 L Seg Neutrophils # Man Lymphocytes # (Manual) 0.7 L PT INR VBG pH Sodium 132 L Potassium Chloride Carbon Dioxide BUN Creatinine 0.2 L Glucose 101 H POC Glucose 119 H Lactic Acid Calcium 7.6 L Phosphorus Magnesium Total Bilirubin AST Total Protein Albumin Prealbumin Crossmatch 05/01/18 05/01/18 05/01/18 06:30 16:09 23:42 WBC RBC Hgb Hct MCH RDW Lymph % (Auto) [place] % (Auto) Lymph # Seg Neutrophils % Seg Neuts % (Manual) Lymphocytes % (Manual) Seg Neutrophils # Man Lymphocytes # (Manual) PT INR VBG pH Sodium Potassium Chloride Carbon Dioxide BUN Creatinine Glucose POC Glucose 126 H 160 H 113 H Lactic Acid Calcium Phosphorus Magnesium Total Bilirubin AST Total Protein Albumin Prealbumin Crossmatch 05/02/18 05/02/18 05/02/18 04:55 06:41 11:53 WBC RBC Hgb Hct MCH RDW Lymph % (Auto) [place] % (Auto) Lymph # Seg Neutrophils % Seg Neuts % (Manual) Lymphocytes % (Manual) Seg Neutrophils # Man Lymphocytes # (Manual) PT INR VBG pH Sodium 134 L Potassium Chloride Carbon Dioxide BUN Creatinine 0.2 L Glucose 113 H POC Glucose 146 H 113 H Lactic Acid Calcium 7.4 L Phosphorus Magnesium Total Bilirubin AST Total Protein Albumin Prealbumin Crossmatch 05/02/18 05/02/18 05/03/18 17:33 23:37 08:46 WBC RBC 3.36 L Hgb 9.7 L Hct 28.7 L MCH RDW 16.3 H Lymph % (Auto) [place] % (Auto) 10.0 H Lymph # Seg Neutrophils % Seg Neuts % (Manual) Lymphocytes % (Manual) Seg Neutrophils # Man Lymphocytes # (Manual) PT INR VBG pH Sodium Potassium Chloride Carbon Dioxide BUN Creatinine Glucose POC Glucose 106 H 123 H Lactic Acid Calcium Phosphorus Magnesium Total Bilirubin AST Total Protein Albumin Prealbumin Crossmatch 05/03/18 05/03/18 05/04/18 11:54 12:15 06:59 WBC RBC Hgb Hct MCH RDW Lymph % (Auto) [place] % (Auto) Lymph # Seg Neutrophils % Seg Neuts % (Manual) Lymphocytes % (Manual) Seg Neutrophils # Man Lymphocytes # (Manual) PT INR VBG pH Sodium 136 L Potassium Chloride Carbon Dioxide BUN Creatinine 0.2 L Glucose 131 H POC Glucose 109 H 161 H Lactic Acid Calcium 7.6 L Phosphorus Magnesium Total Bilirubin AST Total Protein Albumin Prealbumin Crossmatch 05/04/18 05/04/18 05/04/18 07:03 08:02 11:10 WBC RBC 3.52 L Hgb Hct 29.8 L MCH RDW 16.2 H Lymph % (Auto) [place] % (Auto) 8.6 H Lymph # Seg Neutrophils % Seg Neuts % (Manual) Lymphocytes % (Manual) Seg Neutrophils # Man Lymphocytes # (Manual) PT INR VBG pH Sodium 135 L Potassium Chloride Carbon Dioxide BUN Creatinine 0.2 L Glucose 160 H POC Glucose 106 H Lactic Acid Calcium 7.7 L Phosphorus Magnesium Total Bilirubin AST Total Protein Albumin Prealbumin Crossmatch 05/04/18 05/05/18 05/05/18 23:38 11:28 16:55 WBC RBC Hgb Hct MCH RDW Lymph % (Auto) [place] % (Auto) Lymph # Seg Neutrophils % Seg Neuts % (Manual) Lymphocytes % (Manual) Seg Neutrophils # Man Lymphocytes # (Manual) PT INR VBG pH Sodium Potassium Chloride Carbon Dioxide BUN Creatinine Glucose POC Glucose 121 H 119 H 108 H Lactic Acid Calcium Phosphorus Magnesium Total Bilirubin AST Total Protein Albumin Prealbumin Crossmatch 05/05/18 05/06/18 05/06/18 Unknown 05:35 16:40 WBC RBC Hgb Hct MCH RDW Lymph % (Auto) [place] % (Auto) Lymph # Seg Neutrophils % Seg Neuts % (Manual) Lymphocytes % (Manual) Seg Neutrophils # Man Lymphocytes # (Manual) PT INR VBG pH Sodium 135 L 136 L Potassium Chloride 97.9 L Carbon Dioxide BUN Creatinine 0.2 L 0.2 L Glucose 119 H POC Glucose 133 H Lactic Acid Calcium 8.0 L 8.1 L Phosphorus Magnesium Total Bilirubin AST 46 H Total Protein 5.5 L Albumin 2.7 L Prealbumin Crossmatch 05/06/18 05/07/18 05/07/18 22:07 05:38 05:40 WBC RBC Hgb Hct MCH RDW Lymph % (Auto) [place] % (Auto) Lymph # Seg Neutrophils % Seg Neuts % (Manual) Lymphocytes % (Manual) Seg Neutrophils # Man Lymphocytes # (Manual) PT INR VBG pH Sodium 133 L Potassium Chloride Carbon Dioxide BUN Creatinine 0.2 L Glucose POC Glucose 168 H 107 H Lactic Acid Calcium 8.2 L Phosphorus Magnesium Total Bilirubin AST Total Protein Albumin Prealbumin Crossmatch 05/07/18 05/07/18 05/08/18 11:56 18:04 05:38 WBC RBC Hgb Hct MCH RDW 16.3 H Lymph % (Auto) [place] % (Auto) 7.7 H Lymph # Seg Neutrophils % Seg Neuts % (Manual) Lymphocytes % (Manual) Seg Neutrophils # Man Lymphocytes # (Manual) PT INR VBG pH Sodium Potassium Chloride Carbon Dioxide BUN Creatinine Glucose POC Glucose 145 H 125 H Lactic Acid Calcium Phosphorus Magnesium Total Bilirubin AST Total Protein Albumin Prealbumin Crossmatch 05/08/18 05/08/18 05/08/18 05:38 11:35 16:23 WBC RBC Hgb Hct MCH RDW Lymph % (Auto) [place] % (Auto) Lymph # Seg Neutrophils % Seg Neuts % (Manual) Lymphocytes % (Manual) Seg Neutrophils # Man Lymphocytes # (Manual) PT INR VBG pH Sodium 135 L Potassium Chloride Carbon Dioxide BUN Creatinine 0.2 L Glucose POC Glucose 118 H 131 H Lactic Acid Calcium Phosphorus Magnesium Total Bilirubin AST Total Protein Albumin Prealbumin Crossmatch 05/08/18 05/09/18 05/09/18 21:40 05:46 06:15 WBC RBC Hgb Hct MCH RDW Lymph % (Auto) [place] % (Auto) Lymph # Seg Neutrophils % Seg Neuts % (Manual) Lymphocytes % (Manual) Seg Neutrophils # Man Lymphocytes # (Manual) PT INR VBG pH Sodium 135 L Potassium Chloride 97.5 L Carbon Dioxide BUN Creatinine 0.2 L Glucose POC Glucose 110 H 115 H Lactic Acid Calcium Phosphorus Magnesium Total Bilirubin AST Total Protein Albumin Prealbumin Crossmatch 05/09/18 05/09/18 05/10/18 11:28 23:53 06:22 WBC RBC Hgb Hct MCH RDW Lymph % (Auto) [place] % (Auto) Lymph # Seg Neutrophils % Seg Neuts % (Manual) Lymphocytes % (Manual) Seg Neutrophils # Man Lymphocytes # (Manual) PT INR VBG pH Sodium Potassium Chloride Carbon Dioxide BUN Creatinine Glucose POC Glucose 145 H 132 H 149 H Lactic Acid Calcium Phosphorus Magnesium Total Bilirubin AST Total Protein Albumin Prealbumin Crossmatch 05/10/18 05/10/18 05/11/18 16:14 23:24 05:00 WBC RBC Hgb Hct MCH RDW Lymph % (Auto) [place] % (Auto) Lymph # Seg Neutrophils % Seg Neuts % (Manual) Lymphocytes % (Manual) Seg Neutrophils # Man Lymphocytes # (Manual) PT INR VBG pH Sodium Potassium Chloride Carbon Dioxide BUN Creatinine 0.2 L Glucose 113 H POC Glucose 119 H 119 H Lactic Acid Calcium Phosphorus Magnesium Total Bilirubin AST Total Protein Albumin Prealbumin Crossmatch 05/11/18 05/11/18 05/11/18 05:57 11:23 16:29 WBC RBC Hgb Hct MCH RDW Lymph % (Auto) [place] % (Auto) Lymph # Seg Neutrophils % Seg Neuts % (Manual) Lymphocytes % (Manual) Seg Neutrophils # Man Lymphocytes # (Manual) PT INR VBG pH Sodium Potassium Chloride Carbon Dioxide BUN Creatinine Glucose POC Glucose 173 H 143 H 159 H Lactic Acid Calcium Phosphorus Magnesium Total Bilirubin AST Total Protein Albumin Prealbumin Crossmatch 05/12/18 05/12/18 05/12/18 00:47 06:23 11:21 WBC RBC Hgb Hct MCH RDW Lymph % (Auto) [place] % (Auto) Lymph # Seg Neutrophils % Seg Neuts % (Manual) Lymphocytes % (Manual) Seg Neutrophils # Man Lymphocytes # (Manual) PT INR VBG pH Sodium Potassium Chloride Carbon Dioxide BUN Creatinine Glucose POC Glucose 139 H 136 H 116 H Lactic Acid Calcium Phosphorus Magnesium Total Bilirubin AST Total Protein Albumin Prealbumin Crossmatch 05/12/18 05/12/18 05/12/18 17:19 17:22 22:22 WBC RBC Hgb Hct MCH RDW Lymph % (Auto) [place] % (Auto) Lymph # Seg Neutrophils % Seg Neuts % (Manual) Lymphocytes % (Manual) Seg Neutrophils # Man Lymphocytes # (Manual) PT INR VBG pH Sodium Potassium Chloride Carbon Dioxide BUN Creatinine Glucose POC Glucose 329 H 116 H 124 H Lactic Acid Calcium Phosphorus Magnesium Total Bilirubin AST Total Protein Albumin Prealbumin Crossmatch 05/13/18 05/13/18 05/13/18 18:35 22:25 Unknown WBC RBC Hgb Hct MCH RDW Lymph % (Auto) [place] % (Auto) Lymph # Seg Neutrophils % Seg Neuts % (Manual) Lymphocytes % (Manual) Seg Neutrophils # Man Lymphocytes # (Manual) PT INR VBG pH Sodium 136 L Potassium Chloride 97.8 L Carbon Dioxide BUN Creatinine 0.2 L Glucose POC Glucose 137 H 106 H Lactic Acid Calcium Phosphorus Magnesium Total Bilirubin AST 41 H Total Protein Albumin 3.5 L Prealbumin Crossmatch 05/14/18 05/14/18 05/14/18 06:40 06:40 12:48 WBC RBC 3.48 L Hgb 9.8 L Hct 29.1 L MCH RDW 15.6 H Lymph % (Auto) [place] % (Auto) Lymph # Seg Neutrophils % Seg Neuts % (Manual) Lymphocytes % (Manual) Seg Neutrophils # Man Lymphocytes # (Manual) PT INR VBG pH Sodium Potassium Chloride Carbon Dioxide BUN Creatinine 0.2 L Glucose POC Glucose 113 H Lactic Acid Calcium 8.1 L Phosphorus Magnesium Total Bilirubin AST Total Protein Albumin Prealbumin Crossmatch 05/14/18 05/14/18 05/15/18 17:52 22:04 05:10 WBC RBC Hgb Hct MCH RDW Lymph % (Auto) [place] % (Auto) Lymph # Seg Neutrophils % Seg Neuts % (Manual) Lymphocytes % (Manual) Seg Neutrophils # Man Lymphocytes # (Manual) PT INR VBG pH Sodium 135 L Potassium Chloride Carbon Dioxide BUN Creatinine 0.2 L Glucose POC Glucose 106 H 107 H Lactic Acid Calcium 8.2 L Phosphorus Magnesium Total Bilirubin AST Total Protein Albumin Prealbumin Crossmatch 05/15/18 05/15/18 05/15/18 06:24 11:31 16:47 WBC RBC Hgb Hct MCH RDW Lymph % (Auto) [place] % (Auto) Lymph # Seg Neutrophils % Seg Neuts % (Manual) Lymphocytes % (Manual) Seg Neutrophils # Man Lymphocytes # (Manual) PT INR VBG pH Sodium Potassium Chloride Carbon Dioxide BUN Creatinine Glucose POC Glucose 125 H 133 H 135 H Lactic Acid Calcium Phosphorus Magnesium Total Bilirubin AST Total Protein Albumin Prealbumin Crossmatch 05/16/18 05/16/18 05/16/18 00:13 04:30 05:59 WBC RBC Hgb Hct MCH RDW Lymph % (Auto) [place] % (Auto) Lymph # Seg Neutrophils % Seg Neuts % (Manual) Lymphocytes % (Manual) Seg Neutrophils # Man Lymphocytes # (Manual) PT INR VBG pH Sodium Potassium Chloride Carbon Dioxide BUN Creatinine 0.2 L Glucose POC Glucose 132 H 113 H Lactic Acid Calcium Phosphorus Magnesium Total Bilirubin AST Total Protein Albumin Prealbumin Crossmatch 05/16/18 05/16/18 05/17/18 13:03 18:51 05:06 WBC RBC Hgb Hct MCH RDW Lymph % (Auto) [place] % (Auto) Lymph # Seg Neutrophils % Seg Neuts % (Manual) Lymphocytes % (Manual) Seg Neutrophils # Man Lymphocytes # (Manual) PT INR VBG pH Sodium Potassium Chloride Carbon Dioxide BUN Creatinine Glucose POC Glucose 112 H 111 H 128 H Lactic Acid Calcium Phosphorus Magnesium Total Bilirubin AST Total Protein Albumin Prealbumin Crossmatch 05/17/18 05/17/18 05/18/18 06:07 23:54 07:05 WBC RBC Hgb Hct MCH RDW Lymph % (Auto) [place] % (Auto) Lymph # Seg Neutrophils % Seg Neuts % (Manual) Lymphocytes % (Manual) Seg Neutrophils # Man Lymphocytes # (Manual) PT INR VBG pH Sodium 135 L Potassium Chloride Carbon Dioxide BUN Creatinine 0.2 L Glucose 133 H POC Glucose 120 H 119 H Lactic Acid Calcium Phosphorus Magnesium Total Bilirubin AST Total Protein Albumin Prealbumin Crossmatch 05/18/18 05/18/18 05/18/18 07:43 11:29 16:29 WBC RBC Hgb Hct MCH RDW Lymph % (Auto) [place] % (Auto) Lymph # Seg Neutrophils % Seg Neuts % (Manual) Lymphocytes % (Manual) Seg Neutrophils # Man Lymphocytes # (Manual) PT INR VBG pH Sodium Potassium Chloride Carbon Dioxide BUN Creatinine 0.2 L Glucose 117 H POC Glucose 149 H 108 H Lactic Acid Calcium 8.2 L Phosphorus Magnesium Total Bilirubin AST Total Protein Albumin Prealbumin Crossmatch 05/19/18 05/19/18 05/20/18 23:15 Unknown 05:59 WBC RBC Hgb Hct MCH RDW Lymph % (Auto) [place] % (Auto) Lymph # Seg Neutrophils % Seg Neuts % (Manual) Lymphocytes % (Manual) Seg Neutrophils # Man Lymphocytes # (Manual) PT INR VBG pH Sodium 136 L Potassium Chloride Carbon Dioxide BUN Creatinine 0.2 L Glucose POC Glucose 106 H 114 H Lactic Acid Calcium Phosphorus 4.60 H D Magnesium Total Bilirubin AST Total Protein Albumin Prealbumin Crossmatch 05/20/18 05/20/18 05/20/18 06:25 17:52 23:59 WBC RBC Hgb Hct MCH RDW Lymph % (Auto) [place] % (Auto) Lymph # Seg Neutrophils % Seg Neuts % (Manual) Lymphocytes % (Manual) Seg Neutrophils # Man Lymphocytes # (Manual) PT INR VBG pH Sodium 135 L Potassium Chloride Carbon Dioxide BUN Creatinine 0.2 L Glucose 108 H POC Glucose 118 H 186 H Lactic Acid Calcium 8.3 L Phosphorus Magnesium Total Bilirubin AST Total Protein 5.6 L Albumin 2.9 L Prealbumin 0.113 L Crossmatch 05/21/18 05/21/18 05/21/18 04:40 06:36 07:20 WBC RBC 3.40 L Hgb 9.2 L Hct 28.0 L MCH 27 L RDW 16.2 H Lymph % (Auto) [place] % (Auto) 10.3 H Lymph # Seg Neutrophils % Seg Neuts % (Manual) Lymphocytes % (Manual) Seg Neutrophils # Man Lymphocytes # (Manual) PT INR VBG pH Sodium 135 L Potassium Chloride Carbon Dioxide BUN Creatinine < 0.2 L Glucose POC Glucose 138 H Lactic Acid Calcium 8.2 L Phosphorus Magnesium Total Bilirubin AST Total Protein Albumin Prealbumin Crossmatch 05/21/18 05/21/18 05/22/18 11:12 18:17 00:10 WBC RBC Hgb Hct MCH RDW Lymph % (Auto) [place] % (Auto) Lymph # Seg Neutrophils % Seg Neuts % (Manual) Lymphocytes % (Manual) Seg Neutrophils # Man Lymphocytes # (Manual) PT INR VBG pH Sodium Potassium Chloride Carbon Dioxide BUN Creatinine Glucose POC Glucose 137 H 134 H 127 H Lactic Acid Calcium Phosphorus Magnesium Total Bilirubin AST Total Protein Albumin Prealbumin Crossmatch 05/22/18 05/22/18 05/22/18 05:33 05:35 11:31 WBC RBC Hgb Hct MCH RDW Lymph % (Auto) [place] % (Auto) Lymph # Seg Neutrophils % Seg Neuts % (Manual) Lymphocytes % (Manual) Seg Neutrophils # Man Lymphocytes # (Manual) PT INR VBG pH Sodium Potassium Chloride Carbon Dioxide BUN Creatinine 0.2 L Glucose 115 H POC Glucose 135 H 171 H Lactic Acid Calcium 8.3 L Phosphorus Magnesium Total Bilirubin AST Total Protein Albumin Prealbumin Crossmatch 05/23/18 05/23/18 05/23/18 00:29 05:25 11:30 WBC RBC Hgb Hct MCH RDW Lymph % (Auto) [place] % (Auto) Lymph # Seg Neutrophils % Seg Neuts % (Manual) Lymphocytes % (Manual) Seg Neutrophils # Man Lymphocytes # (Manual) PT INR VBG pH Sodium 135 L Potassium Chloride Carbon Dioxide BUN Creatinine 0.2 L Glucose 113 H POC Glucose 157 H 141 H Lactic Acid Calcium 8.2 L Phosphorus Magnesium Total Bilirubin AST Total Protein Albumin Prealbumin Crossmatch 05/24/18 05/24/18 05/24/18 05:40 11:26 17:26 WBC RBC Hgb Hct MCH RDW Lymph % (Auto) [place] % (Auto) Lymph # Seg Neutrophils % Seg Neuts % (Manual) Lymphocytes % (Manual) Seg Neutrophils # Man Lymphocytes # (Manual) PT INR VBG pH Sodium 133 L Potassium Chloride 97.7 L Carbon Dioxide BUN Creatinine 0.2 L Glucose POC Glucose 120 H 113 H Lactic Acid Calcium 8.1 L Phosphorus Magnesium Total Bilirubin AST Total Protein Albumin Prealbumin Crossmatch 05/25/18 05/25/18 05/25/18 05:00 18:30 22:32 WBC RBC Hgb Hct MCH RDW Lymph % (Auto) [place] % (Auto) Lymph # Seg Neutrophils % Seg Neuts % (Manual) Lymphocytes % (Manual) Seg Neutrophils # Man Lymphocytes # (Manual) PT INR VBG pH Sodium 134 L Potassium Chloride 97.2 L Carbon Dioxide BUN Creatinine 0.2 L Glucose POC Glucose 111 H 112 H Lactic Acid Calcium Phosphorus Magnesium Total Bilirubin AST Total Protein Albumin Prealbumin Crossmatch 05/26/18 05/26/18 06:15 12:03 WBC RBC Hgb Hct MCH RDW Lymph % (Auto) [place] % (Auto) Lymph # Seg Neutrophils % Seg Neuts % (Manual) Lymphocytes % (Manual) Seg Neutrophils # Man Lymphocytes # (Manual) PT INR VBG pH Sodium 136 L Potassium Chloride Carbon Dioxide BUN Creatinine 0.3 L Glucose POC Glucose 121 H Lactic Acid Calcium Phosphorus Magnesium Total Bilirubin AST Total Protein Albumin Prealbumin Crossmatch Allied health notes reviewed: nursing
--- NOTE | 2018-05-26 16:06 | Progress Note ---
Assessment and Plan /Sepsis Etiology secondary to gangrenous and perforated appendix causing intra- abdominal/pelvic abscess. Patient is status post exploratory laparotomy with appendectomy and evacuation of pelvic abscess. Now off antibiotics and noted ID signed off. No fever off antibiotics. /Perforated appendix s/p exploratory lap Cont. TPN, started on clear liquid diet today s/p repeat CT abdomen/pelvis on 05/25/18 /Chronic hep C. Untreated. Outpatient follow-up. /Accel Hypertension. continue Cozaar to 100mg. Cont. Hydralazine prn. /Diarrhea: s/p lmodium prn x 1 /Tachycardia: secondary to dehydration and deconditioning. Fluids to be given and also started Low dose BB. /COPD. Compensated. nebs as needed /Neurofibromatosis: outpt follow up /Tobacco abuse. Patient counseled on smoking cessation FOR 15 MINS, Patient verbalized understanding and will think about it. /Severe protein calorie malnutrition; income tax administrator consulted. continue with TPN and advance diet as tolerated to wean off TPN /Hypotension-resolved BP better, Disposition - when cleared by surgery Brief history: The patient is a 57-year-old female with hypertension, neurofibromatosis, hepatitis C, COPD, nicotine dependence presented to the emergency room on 04/18/18 with complaints of abdominal pain going on for [address] scan obtained in the emergency room revealed a ruptured appendix with associated intra-abdominal abscess. General surgery was consulted and the patient underwent an emergent exploratory laparotomy with evacuation of pelvic abscess. She was noted to have a gangrenous, perforated appendix eroding including into the small bowel. As per the op note, the abscess could not be drained as the entire abscess and inflammatory process had trapped the small bowel, which was mobilized and she underwent an ileocolic anastomosis. The patient went back to the OR on 04/25/18 for drain dislodgment. Surgical cultures growing ECOLI and beta hemolytic strep group C, ester albicans and enteroccocus faecium. Per surgery considering plan to transfer to LTAC * Continue local wound care * Surgical culture grew Ecoli and ester * CT abdomen: 05/18/18- Still shows minimal drainage, per surgery repeat CT of abd & pelvis with PO contrast done 05/25/18 showed no acute change * Urology was consulted for possible entro-vesico fistula due to the color of the urine, cystogram was normal. * Insurance denies LTAC, recommends SNF. Both surgeon and Patient believe SNF is the wrong place Hospitalist Physical VITAL SIGNS: Reviewed. GENERAL: The patient appeared well nourished and normally developed. Cachectic. Vital signs as documented. Temporal wasting noted HEAD: No signs of head trauma. marked tempral wasting EYES: Pupils are equal. Extraocular motions intact. EARS: Hearing grossly intact. MOUTH: Oropharynx is normal. NECK: No adenopathy, no JVD. CHEST: Chest with clear breath sounds bilaterally. No wheezes, rales, or rhonchi. CARDIAC: Regular rate and rhythm. S1 and S2, without murmurs, gallops, or rubs. VASCULAR: No Edema. Peripheral pulses normal and equal in all extremities. ABDOMEN: Soft, midly distended, some tenderness. bilateral drain noted. hypoactive BS No rebound or guarding, and no masses palpated. MUSCULOSKELETAL: Good range of motion of all major joints. Extremities without clubbing, cyanosis or edema. NEUROLOGIC EXAM: Alert and oriented x 3. No focal sensory or strength deficits. Speech normal. Follows commands. PSYCHIATRIC: Mood normal. SKIN: neurofibromatosis lesions on face Subjective Date of service: 05/26/18 Principal diagnosis: Sepsis; Ex-lap appendectomy and evacuation of pelvic abscess; Peritonitis Interval history: Patient seen and examined this am with nursing staff. States feels better. abdominal pain improved s/p CT abdomen/pelvis yesterday, planned to start clear liquid diet Objective - Constitutional Vitals: Vital Signs - 12hr 05/26/18 05/26/18 05/26/18 06:24 06:44 08:00 Temperature 98.9 F Pulse Rate 103 H Pulse Rate [ 87 Anterior Bilateral Throughout] Pulse Rate [ 98 H Throughout] Respiratory 18 18 Rate Respiratory 18 Rate [Anterior Bilateral Throughout] Respiratory 18 Rate [ Throughout] Blood Pressure 103/45 Blood Pressure [Left] O2 Sat by Pulse 97 Oximetry 05/26/18 13:49 Temperature 98.9 F Pulse Rate 102 H Pulse Rate [ Anterior Bilateral Throughout] Pulse Rate [ Throughout] Respiratory 19 Rate Respiratory Rate [Anterior Bilateral Throughout] Respiratory Rate [ Throughout] Blood Pressure Blood Pressure 117/60 [Left] O2 Sat by Pulse 98 Oximetry - Labs CBC & Chem 7: 05/27/18 05:27 05/27/18 05:27 Labs: Abnormal lab results 05/25/18 05/25/18 05/26/18 Range/Units 18:30 22:32 06:15 Sodium 136 L (137-145) mmol/L Creatinine 0.3 L (0.7-1.2) mg/dL POC Glucose 111 H 112 H (70-105) 05/26/18 Range/Units 12:03 Sodium (137-145) mmol/L Creatinine (0.7-1.2) mg/dL POC Glucose 121 H (70-105)
[2018-05-26] MEDS ORDERED: TPN ADULT 1,800 ML IV SCH (20:00)
[2018-05-26] MEDS: ZOFRAN IV PRN (21:10)
[2018-05-26] MEDS: REMERON PO SCH (21:11)
[2018-05-27] MEDS: DILAUDID IV PRN ×6 (01:31→21:06)
[2018-05-27] MEDS: XANAX PO PRN ×2 (01:32→09:29)
[2018-05-27] MEDS: BROVANA NEBU IH SCH ×3 (02:19→20:01)
[2018-05-27] MEDS: PULMICORT IH SCH ×3 (02:19→20:01)
[2018-05-27 06:09] LABS: Basophils % (Auto) 0.2 % (0.0-1.8); Eosinophils % (Auto) 0.2 % (0.0-4.3); Hematocrit 26.5 % (30.3-42.9); Hemoglobin 8.7 gm/dl (10.1-14.3); Lymphocytes # (Auto) 1.4 K/mm3 (1.2-5.4); Lymphocytes % (Auto) 22.3 % (13.4-35.0); Mean Corpuscular HGB Conc 33 % (30-34); Mean Corpuscular Volume 81 fl (79-97); Monocytes # (Auto) 0.6 K/mm3 (0.0-0.8); Monocytes % (Auto) 9.1 % (0.0-7.3); Platelet Count 148 K/mm3 (140-440); Red Blood Count 3.28 M/mm3 (3.65-5.03); Red Cell Distribution Width 16.3 % (13.2-15.2)
[2018-05-27 06:33] LABS: BUN/Creatinine Ratio 70; Blood Urea Nitrogen 14 mg/dL (7-17); Calcium 8.2 mg/dL (8.4-10.2); Hemolysis Index 0
--- NOTE | 2018-05-27 08:40 | Progress Note ---
Assessment and Plan Pt doing well this am without compl. Abd soft. began increased drainage from sump drain when attempted po cl liq non closing bowel leakage need to consider transferring pt to tertiary center will discuss with case management stable Selected Entries 05/25/18 05/25/18 05/26/18 11:17 13:17 06:24 Temperature 97.6 F 98.9 F Pulse Rate 97 H Pulse Rate [ Anterior Bilateral Throughout] Pulse Rate [ Throughout] Respiratory 18 Rate Blood Pressure 127/62 103/45 Blood Pressure [Left] 05/26/18 05/27/18 08:00 05:56 Temperature 99.1 F Pulse Rate 104 H Pulse Rate [ 87 Anterior Bilateral Throughout] Pulse Rate [ 98 H Throughout] Respiratory Rate Blood Pressure Blood Pressure 114/52 [Left] Laboratory Tests 05/27/18 05/27/18 05:27 05:27 WBC 6.3 Hgb 8.7 L Hct 26.5 L Sodium 134 L Potassium 4.2 Chloride 101.4 Carbon Dioxide 25 Anion Gap 12 BUN 14 Creatinine 0.2 L Objective Vital Signs - 12hr 05/26/18 05/26/18 05/27/18 21:05 21:29 05:56 Temperature 99.7 F H 99.1 F Pulse Rate 127 H 127 H 104 H Respiratory 19 20 Rate Blood Pressure 135/65 Blood Pressure 135/65 114/52 [Left] O2 Sat by Pulse 94 99 Oximetry - Labs 05/27/18 05:27 05/27/18 05:27 Diabetes panel 05/27/18 Range/Units 05:27 Sodium 134 L (137-145) mmol/L Potassium 4.2 (3.6-5.0) mmol/L Chloride 101.4 (98-107) mmol/L Carbon Dioxide 25 (22-30) mmol/L BUN 14 (7-17) mg/dL Creatinine 0.2 L (0.7-1.2) mg/dL Glucose 106 H (65-100) mg/dL Calcium 8.2 L (8.4-10.2) mg/dL Calcium panel 05/27/18 Range/Units 05:27 Calcium 8.2 L (8.4-10.2) mg/dL Pituitary panel 05/27/18 Range/Units 05:27 Sodium 134 L (137-145) mmol/L Potassium 4.2 (3.6-5.0) mmol/L Chloride 101.4 (98-107) mmol/L Carbon Dioxide 25 (22-30) mmol/L BUN 14 (7-17) mg/dL Creatinine 0.2 L (0.7-1.2) mg/dL Glucose 106 H (65-100) mg/dL Calcium 8.2 L (8.4-10.2) mg/dL Adrenal panel 05/27/18 Range/Units 05:27 Sodium 134 L (137-145) mmol/L Potassium 4.2 (3.6-5.0) mmol/L Chloride 101.4 (98-107) mmol/L Carbon Dioxide 25 (22-30) mmol/L BUN 14 (7-17) mg/dL Creatinine 0.2 L (0.7-1.2) mg/dL Glucose 106 H (65-100) mg/dL Calcium 8.2 L (8.4-10.2) mg/dL
[2018-05-27] MEDS: NEURONTIN PO SCH ×3 (09:12→20:43)
--- NOTE | 2018-05-27 10:51 | Progress Note ---
Assessment and Plan Patient awake. Weak. Resting on on room air . O2 saturation 94%.No complaint of chest pain, shortness of breath or cough.Patient says feeling little better. - Patient Problems (1) Appendicitis with perforation Current Visit: Yes Status: Acute Plan to address problem: S/p resection of perforated appendex. (2) Sepsis Current Visit: Yes Status: Acute Qualifiers: Sepsis type: Escherichia coli Qualified Code(s): A41.51 - Sepsis due to Escherichia coli [E. coli] Plan to address problem: Resolved. Patient off the antibiotics. (3) Acute metabolic encephalopathy Current Visit: No Status: Acute Plan to address problem: Appears improved. Management as per primary care. (4) Marijuana abuse Current Visit: No Status: Acute Plan to address problem: Counselled not use marijuana. Subjective Date of service: 05/27/18 Principal diagnosis: Sepsis; Ex-lap appendectomy and evacuation of pelvic abscess; Peritonitis Interval history: Patient awake. Weak. Resting on on room air . O2 saturation 94%.No complaint of chest pain, shortness of breath or cough.Patient says feeling little better. Objective Vital Signs - 12hr 05/27/18 05/27/18 05/27/18 05:56 07:30 09:13 Temperature 99.1 F 98.1 F Pulse Rate 104 H 94 H Respiratory 20 20 20 Rate Blood Pressure 114/52 110/53 [Left] O2 Sat by Pulse 99 95 Oximetry Constitutional: no acute distress, alert, other (chronically ill looking this middle aged CF, normocephalic) Eyes: non-icteric ENT: oropharynx moist, other (Mallampati 2) Neck: supple, no lymphadenopathy, no JVD Effort: mildly labored Ascultation: Bilateral: diminished breath sounds, rhonchi (scant in bases) Percussion: Bilateral: not dull Cardiovascular: regular rate and rhythm Gastrointestinal: normoactive bowel sounds, soft, tender (bhargav-op site), non- distended, other (Drain in place with non-bloody effluent) Integumentary: other (poor turgor; ? neurofibromatous nodules over body) Extremities: no cyanosis, no edema, pink and warm, pulses normal Neurologic: normal mental status, non-focal exam, pupils equal and round, motor strength normal and Psychiatric: mood appropriate, anxious CBC and BMP: 05/27/18 05:27 05/27/18 05:27 ABG, PT/INR, D-dimer: ABG POC ABG pH 7.367 (7.35-7.45) 04/19/18 00:19 POC ABG pCO2 36.8 (35-45) 04/19/18 00:19 POC ABG pO2 84 (80-105) 04/19/18 00:19 POC ABG HCO3 21.1 04/19/18 00:19 POC ABG Total CO2 22 04/19/18 00:19 POC ABG O2 Sat 96 04/19/18 00:19 PT/INR, D-dimer PT 15.3 Sec. (12.2-14.9) H 04/22/18 05:19 INR 1.17 (0.87-1.13) H 04/22/18 05:19 Abnormal lab findings: Abnormal Labs 04/18/18 04/18/18 04/18/18 14:30 14:30 14:30 WBC 18.6 H RBC Hgb Hct MCH RDW Lymph % (Auto) [place] % (Auto) Lymph # Seg Neutrophils % Seg Neuts % (Manual) 79.0 H Lymphocytes % (Manual) 4.0 L Seg Neutrophils # Man 14.7 H Lymphocytes # (Manual) 0.7 L PT 16.3 H INR 1.27 H VBG pH Sodium 121 L Potassium 3.0 L Chloride 78.0 L Carbon Dioxide BUN Creatinine 0.5 L Glucose 110 H POC Glucose Lactic Acid Calcium Phosphorus Magnesium Total Bilirubin 1.30 H AST 42 H Total Protein Albumin 3.1 L Prealbumin Crossmatch 04/18/18 04/18/18 04/18/18 14:30 14:30 23:59 WBC RBC Hgb Hct MCH RDW 15.8 H Lymph % (Auto) [place] % (Auto) Lymph # Seg Neutrophils % Seg Neuts % (Manual) 78.0 H Lymphocytes % (Manual) 6.0 L Seg Neutrophils # Man Lymphocytes # (Manual) 0.5 L PT INR VBG pH 7.439 H Sodium Potassium Chloride Carbon Dioxide BUN Creatinine Glucose POC Glucose Lactic Acid 3.60 H* Calcium Phosphorus Magnesium Total Bilirubin AST Total Protein Albumin Prealbumin Crossmatch 04/18/18 04/19/18 04/19/18 23:59 05:19 05:19 WBC 15.0 H RBC Hgb Hct MCH RDW 15.3 H Lymph % (Auto) [place] % (Auto) Lymph # Seg Neutrophils % Seg Neuts % (Manual) Lymphocytes % (Manual) 5.0 L Seg Neutrophils # Man 8.3 H Lymphocytes # (Manual) 0.8 L PT INR VBG pH Sodium 130 L D 133 L Potassium 3.5 L 3.3 L Chloride Carbon Dioxide 20 L D BUN Creatinine 0.5 L 0.6 L Glucose 140 H 115 H POC Glucose Lactic Acid Calcium 7.5 L 7.4 L Phosphorus Magnesium Total Bilirubin AST Total Protein 4.4 L D 4.1 L Albumin 2.0 L 1.9 L Prealbumin Crossmatch 04/19/18 04/19/18 04/20/18 05:19 13:05 05:18 WBC RBC Hgb Hct MCH RDW Lymph % (Auto) [place] % (Auto) Lymph # Seg Neutrophils % Seg Neuts % (Manual) Lymphocytes % (Manual) Seg Neutrophils # Man Lymphocytes # (Manual) PT 19.4 H 17.4 H INR 1.59 H 1.38 H VBG pH Sodium Potassium Chloride Carbon Dioxide BUN Creatinine Glucose POC Glucose Lactic Acid Calcium Phosphorus Magnesium Total Bilirubin AST Total Protein Albumin Prealbumin Crossmatch See Detail 04/20/18 04/20/18 04/21/18 13:47 13:47 04:52 WBC RBC 3.29 L 3.10 L Hgb 9.6 L 8.8 L Hct 28.1 L D 26.6 L MCH RDW 15.3 H 15.4 H Lymph % (Auto) 5.6 L [place] % (Auto) Lymph # 0.4 L Seg Neutrophils % 87.3 H Seg Neuts % (Manual) Lymphocytes % (Manual) Seg Neutrophils # Man Lymphocytes # (Manual) PT INR VBG pH Sodium Potassium Chloride Carbon Dioxide BUN Creatinine 0.3 L Glucose 102 H POC Glucose Lactic Acid Calcium 8.0 L Phosphorus Magnesium Total Bilirubin AST Total Protein Albumin Prealbumin Crossmatch 04/21/18 04/22/18 04/22/18 04:52 05:19 05:19 WBC RBC 3.64 L Hgb Hct MCH RDW Lymph % (Auto) 8.5 L [place] % (Auto) 9.9 H Lymph # 0.6 L Seg Neutrophils % 81.0 H Seg Neuts % (Manual) Lymphocytes % (Manual) Seg Neutrophils # Man Lymphocytes # (Manual) PT 15.3 H INR 1.17 H VBG pH Sodium Potassium 3.2 L Chloride Carbon Dioxide BUN Creatinine 0.3 L Glucose POC Glucose Lactic Acid Calcium 7.6 L Phosphorus Magnesium Total Bilirubin AST Total Protein Albumin Prealbumin Crossmatch 04/22/18 04/24/18 04/24/18 05:19 07:19 07:19 WBC RBC Hgb Hct MCH RDW Lymph % (Auto) [place] % (Auto) Lymph # Seg Neutrophils % Seg Neuts % (Manual) Lymphocytes % (Manual) Seg Neutrophils # Man Lymphocytes # (Manual) PT INR VBG pH Sodium Potassium 3.4 L 2.9 L* Chloride Carbon Dioxide BUN Creatinine 0.3 L 0.3 L Glucose 103 H POC Glucose Lactic Acid Calcium 7.7 L 7.5 L Phosphorus Magnesium 1.60 L Total Bilirubin AST Total Protein 4.3 L Albumin 2.2 L Prealbumin Crossmatch 04/24/18 04/25/18 04/25/18 07:23 06:28 06:28 WBC RBC Hgb Hct MCH RDW 15.3 H 15.9 H Lymph % (Auto) 10.1 L [place] % (Auto) Lymph # 0.8 L Seg Neutrophils % 80.6 H Seg Neuts % (Manual) Lymphocytes % (Manual) 9.0 L Seg Neutrophils # Man Lymphocytes # (Manual) 0.7 L PT INR VBG pH Sodium Potassium 3.0 L Chloride Carbon Dioxide BUN 5 L Creatinine 0.2 L Glucose 108 H POC Glucose Lactic Acid Calcium 7.4 L Phosphorus Magnesium Total Bilirubin AST Total Protein 4.6 L Albumin 2.5 L Prealbumin Crossmatch 04/25/18 04/26/18 04/26/18 06:28 05:45 05:45 WBC 11.9 H RBC Hgb Hct MCH RDW 16.2 H Lymph % (Auto) [place] % (Auto) Lymph # Seg Neutrophils % Seg Neuts % (Manual) Lymphocytes % (Manual) Seg Neutrophils # Man Lymphocytes # (Manual) PT INR VBG pH Sodium Potassium Chloride Carbon Dioxide BUN 5 L Creatinine 0.2 L Glucose 119 H POC Glucose Lactic Acid Calcium 7.7 L Phosphorus 2.00 L 2.20 L Magnesium Total Bilirubin AST Total Protein Albumin Prealbumin Crossmatch 04/27/18 04/28/18 04/28/18 05:33 06:00 06:00 WBC 11.2 H RBC Hgb Hct MCH RDW 16.0 H Lymph % (Auto) [place] % (Auto) Lymph # Seg Neutrophils % Seg Neuts % (Manual) 92.0 H Lymphocytes % (Manual) 5.0 L Seg Neutrophils # Man 10.3 H Lymphocytes # (Manual) 0.6 L PT INR VBG pH Sodium Potassium 3.4 L 3.1 L Chloride Carbon Dioxide BUN 6 L 4 L Creatinine 0.2 L 0.2 L Glucose 119 H POC Glucose Lactic Acid Calcium 7.5 L 7.1 L Phosphorus 2.00 L 2.10 L Magnesium 1.50 L Total Bilirubin AST Total Protein 4.3 L Albumin 2.1 L Prealbumin Crossmatch 04/29/18 04/29/18 04/29/18 05:18 05:18 17:49 WBC 12.0 H RBC Hgb Hct MCH RDW 16.0 H Lymph % (Auto) [place] % (Auto) Lymph # Seg Neutrophils % Seg Neuts % (Manual) 87.0 H Lymphocytes % (Manual) 10.0 L Seg Neutrophils # Man 10.4 H Lymphocytes # (Manual) PT INR VBG pH Sodium 135 L Potassium Chloride Carbon Dioxide BUN Creatinine 0.2 L Glucose 120 H POC Glucose 108 H Lactic Acid Calcium 7.5 L Phosphorus Magnesium Total Bilirubin AST Total Protein Albumin Prealbumin Crossmatch 04/30/18 04/30/18 04/30/18 00:03 05:18 05:41 WBC RBC Hgb Hct MCH RDW Lymph % (Auto) [place] % (Auto) Lymph # Seg Neutrophils % Seg Neuts % (Manual) Lymphocytes % (Manual) Seg Neutrophils # Man Lymphocytes # (Manual) PT INR VBG pH Sodium 133 L Potassium Chloride Carbon Dioxide BUN Creatinine 0.2 L Glucose 119 H POC Glucose 112 H 110 H Lactic Acid Calcium 7.5 L Phosphorus Magnesium Total Bilirubin AST Total Protein Albumin Prealbumin Crossmatch 04/30/18 05/01/18 05/01/18 05:41 00:39 04:45 WBC RBC 3.60 L Hgb Hct MCH RDW 16.0 H Lymph % (Auto) [place] % (Auto) Lymph # Seg Neutrophils % Seg Neuts % (Manual) 88.0 H Lymphocytes % (Manual) 8.0 L Seg Neutrophils # Man Lymphocytes # (Manual) 0.7 L PT INR VBG pH Sodium 132 L Potassium Chloride Carbon Dioxide BUN Creatinine 0.2 L Glucose 101 H POC Glucose 119 H Lactic Acid Calcium 7.6 L Phosphorus Magnesium Total Bilirubin AST Total Protein Albumin Prealbumin Crossmatch 05/01/18 05/01/18 05/01/18 06:30 16:09 23:42 WBC RBC Hgb Hct MCH RDW Lymph % (Auto) [place] % (Auto) Lymph # Seg Neutrophils % Seg Neuts % (Manual) Lymphocytes % (Manual) Seg Neutrophils # Man Lymphocytes # (Manual) PT INR VBG pH Sodium Potassium Chloride Carbon Dioxide BUN Creatinine Glucose POC Glucose 126 H 160 H 113 H Lactic Acid Calcium Phosphorus Magnesium Total Bilirubin AST Total Protein Albumin Prealbumin Crossmatch 05/02/18 05/02/18 05/02/18 04:55 06:41 11:53 WBC RBC Hgb Hct MCH RDW Lymph % (Auto) [place] % (Auto) Lymph # Seg Neutrophils % Seg Neuts % (Manual) Lymphocytes % (Manual) Seg Neutrophils # Man Lymphocytes # (Manual) PT INR VBG pH Sodium 134 L Potassium Chloride Carbon Dioxide BUN Creatinine 0.2 L Glucose 113 H POC Glucose 146 H 113 H Lactic Acid Calcium 7.4 L Phosphorus Magnesium Total Bilirubin AST Total Protein Albumin Prealbumin Crossmatch 05/02/18 05/02/18 05/03/18 17:33 23:37 08:46 WBC RBC 3.36 L Hgb 9.7 L Hct 28.7 L MCH RDW 16.3 H Lymph % (Auto) [place] % (Auto) 10.0 H Lymph # Seg Neutrophils % Seg Neuts % (Manual) Lymphocytes % (Manual) Seg Neutrophils # Man Lymphocytes # (Manual) PT INR VBG pH Sodium Potassium Chloride Carbon Dioxide BUN Creatinine Glucose POC Glucose 106 H 123 H Lactic Acid Calcium Phosphorus Magnesium Total Bilirubin AST Total Protein Albumin Prealbumin Crossmatch 05/03/18 05/03/18 05/04/18 11:54 12:15 06:59 WBC RBC Hgb Hct MCH RDW Lymph % (Auto) [place] % (Auto) Lymph # Seg Neutrophils % Seg Neuts % (Manual) Lymphocytes % (Manual) Seg Neutrophils # Man Lymphocytes # (Manual) PT INR VBG pH Sodium 136 L Potassium Chloride Carbon Dioxide BUN Creatinine 0.2 L Glucose 131 H POC Glucose 109 H 161 H Lactic Acid Calcium 7.6 L Phosphorus Magnesium Total Bilirubin AST Total Protein Albumin Prealbumin Crossmatch 05/04/18 05/04/18 05/04/18 07:03 08:02 11:10 WBC RBC 3.52 L Hgb Hct 29.8 L MCH RDW 16.2 H Lymph % (Auto) [place] % (Auto) 8.6 H Lymph # Seg Neutrophils % Seg Neuts % (Manual) Lymphocytes % (Manual) Seg Neutrophils # Man Lymphocytes # (Manual) PT INR VBG pH Sodium 135 L Potassium Chloride Carbon Dioxide BUN Creatinine 0.2 L Glucose 160 H POC Glucose 106 H Lactic Acid Calcium 7.7 L Phosphorus Magnesium Total Bilirubin AST Total Protein Albumin Prealbumin Crossmatch 05/04/18 05/05/18 05/05/18 23:38 11:28 16:55 WBC RBC Hgb Hct MCH RDW Lymph % (Auto) [place] % (Auto) Lymph # Seg Neutrophils % Seg Neuts % (Manual) Lymphocytes % (Manual) Seg Neutrophils # Man Lymphocytes # (Manual) PT INR VBG pH Sodium Potassium Chloride Carbon Dioxide BUN Creatinine Glucose POC Glucose 121 H 119 H 108 H Lactic Acid Calcium Phosphorus Magnesium Total Bilirubin AST Total Protein Albumin Prealbumin Crossmatch 05/05/18 05/06/18 05/06/18 Unknown 05:35 16:40 WBC RBC Hgb Hct MCH RDW Lymph % (Auto) [place] % (Auto) Lymph # Seg Neutrophils % Seg Neuts % (Manual) Lymphocytes % (Manual) Seg Neutrophils # Man Lymphocytes # (Manual) PT INR VBG pH Sodium 135 L 136 L Potassium Chloride 97.9 L Carbon Dioxide BUN Creatinine 0.2 L 0.2 L Glucose 119 H POC Glucose 133 H Lactic Acid Calcium 8.0 L 8.1 L Phosphorus Magnesium Total Bilirubin AST 46 H Total Protein 5.5 L Albumin 2.7 L Prealbumin Crossmatch 05/06/18 05/07/18 05/07/18 22:07 05:38 05:40 WBC RBC Hgb Hct MCH RDW Lymph % (Auto) [place] % (Auto) Lymph # Seg Neutrophils % Seg Neuts % (Manual) Lymphocytes % (Manual) Seg Neutrophils # Man Lymphocytes # (Manual) PT INR VBG pH Sodium 133 L Potassium Chloride Carbon Dioxide BUN Creatinine 0.2 L Glucose POC Glucose 168 H 107 H Lactic Acid Calcium 8.2 L Phosphorus Magnesium Total Bilirubin AST Total Protein Albumin Prealbumin Crossmatch 05/07/18 05/07/18 05/08/18 11:56 18:04 05:38 WBC RBC Hgb Hct MCH RDW 16.3 H Lymph % (Auto) [place] % (Auto) 7.7 H Lymph # Seg Neutrophils % Seg Neuts % (Manual) Lymphocytes % (Manual) Seg Neutrophils # Man Lymphocytes # (Manual) PT INR VBG pH Sodium Potassium Chloride Carbon Dioxide BUN Creatinine Glucose POC Glucose 145 H 125 H Lactic Acid Calcium Phosphorus Magnesium Total Bilirubin AST Total Protein Albumin Prealbumin Crossmatch 05/08/18 05/08/18 05/08/18 05:38 11:35 16:23 WBC RBC Hgb Hct MCH RDW Lymph % (Auto) [place] % (Auto) Lymph # Seg Neutrophils % Seg Neuts % (Manual) Lymphocytes % (Manual) Seg Neutrophils # Man Lymphocytes # (Manual) PT INR VBG pH Sodium 135 L Potassium Chloride Carbon Dioxide BUN Creatinine 0.2 L Glucose POC Glucose 118 H 131 H Lactic Acid Calcium Phosphorus Magnesium Total Bilirubin AST Total Protein Albumin Prealbumin Crossmatch 05/08/18 05/09/18 05/09/18 21:40 05:46 06:15 WBC RBC Hgb Hct MCH RDW Lymph % (Auto) [place] % (Auto) Lymph # Seg Neutrophils % Seg Neuts % (Manual) Lymphocytes % (Manual) Seg Neutrophils # Man Lymphocytes # (Manual) PT INR VBG pH Sodium 135 L Potassium Chloride 97.5 L Carbon Dioxide BUN Creatinine 0.2 L Glucose POC Glucose 110 H 115 H Lactic Acid Calcium Phosphorus Magnesium Total Bilirubin AST Total Protein Albumin Prealbumin Crossmatch 05/09/18 05/09/18 05/10/18 11:28 23:53 06:22 WBC RBC Hgb Hct MCH RDW Lymph % (Auto) [place] % (Auto) Lymph # Seg Neutrophils % Seg Neuts % (Manual) Lymphocytes % (Manual) Seg Neutrophils # Man Lymphocytes # (Manual) PT INR VBG pH Sodium Potassium Chloride Carbon Dioxide BUN Creatinine Glucose POC Glucose 145 H 132 H 149 H Lactic Acid Calcium Phosphorus Magnesium Total Bilirubin AST Total Protein Albumin Prealbumin Crossmatch 05/10/18 05/10/18 05/11/18 16:14 23:24 05:00 WBC RBC Hgb Hct MCH RDW Lymph % (Auto) [place] % (Auto) Lymph # Seg Neutrophils % Seg Neuts % (Manual) Lymphocytes % (Manual) Seg Neutrophils # Man Lymphocytes # (Manual) PT INR VBG pH Sodium Potassium Chloride Carbon Dioxide BUN Creatinine 0.2 L Glucose 113 H POC Glucose 119 H 119 H Lactic Acid Calcium Phosphorus Magnesium Total Bilirubin AST Total Protein Albumin Prealbumin Crossmatch 05/11/18 05/11/18 05/11/18 05:57 11:23 16:29 WBC RBC Hgb Hct MCH RDW Lymph % (Auto) [place] % (Auto) Lymph # Seg Neutrophils % Seg Neuts % (Manual) Lymphocytes % (Manual) Seg Neutrophils # Man Lymphocytes # (Manual) PT INR VBG pH Sodium Potassium Chloride Carbon Dioxide BUN Creatinine Glucose POC Glucose 173 H 143 H 159 H Lactic Acid Calcium Phosphorus Magnesium Total Bilirubin AST Total Protein Albumin Prealbumin Crossmatch 05/12/18 05/12/18 05/12/18 00:47 06:23 11:21 WBC RBC Hgb Hct MCH RDW Lymph % (Auto) [place] % (Auto) Lymph # Seg Neutrophils % Seg Neuts % (Manual) Lymphocytes % (Manual) Seg Neutrophils # Man Lymphocytes # (Manual) PT INR VBG pH Sodium Potassium Chloride Carbon Dioxide BUN Creatinine Glucose POC Glucose 139 H 136 H 116 H Lactic Acid Calcium Phosphorus Magnesium Total Bilirubin AST Total Protein Albumin Prealbumin Crossmatch 05/12/18 05/12/18 05/12/18 17:19 17:22 22:22 WBC RBC Hgb Hct MCH RDW Lymph % (Auto) [place] % (Auto) Lymph # Seg Neutrophils % Seg Neuts % (Manual) Lymphocytes % (Manual) Seg Neutrophils # Man Lymphocytes # (Manual) PT INR VBG pH Sodium Potassium Chloride Carbon Dioxide BUN Creatinine Glucose POC Glucose 329 H 116 H 124 H Lactic Acid Calcium Phosphorus Magnesium Total Bilirubin AST Total Protein Albumin Prealbumin Crossmatch 05/13/18 05/13/18 05/13/18 18:35 22:25 Unknown WBC RBC Hgb Hct MCH RDW Lymph % (Auto) [place] % (Auto) Lymph # Seg Neutrophils % Seg Neuts % (Manual) Lymphocytes % (Manual) Seg Neutrophils # Man Lymphocytes # (Manual) PT INR VBG pH Sodium 136 L Potassium Chloride 97.8 L Carbon Dioxide BUN Creatinine 0.2 L Glucose POC Glucose 137 H 106 H Lactic Acid Calcium Phosphorus Magnesium Total Bilirubin AST 41 H Total Protein Albumin 3.5 L Prealbumin Crossmatch 05/14/18 05/14/18 05/14/18 06:40 06:40 12:48 WBC RBC 3.48 L Hgb 9.8 L Hct 29.1 L MCH RDW 15.6 H Lymph % (Auto) [place] % (Auto) Lymph # Seg Neutrophils % Seg Neuts % (Manual) Lymphocytes % (Manual) Seg Neutrophils # Man Lymphocytes # (Manual) PT INR VBG pH Sodium Potassium Chloride Carbon Dioxide BUN Creatinine 0.2 L Glucose POC Glucose 113 H Lactic Acid Calcium 8.1 L Phosphorus Magnesium Total Bilirubin AST Total Protein Albumin Prealbumin Crossmatch 05/14/18 05/14/18 05/15/18 17:52 22:04 05:10 WBC RBC Hgb Hct MCH RDW Lymph % (Auto) [place] % (Auto) Lymph # Seg Neutrophils % Seg Neuts % (Manual) Lymphocytes % (Manual) Seg Neutrophils # Man Lymphocytes # (Manual) PT INR VBG pH Sodium 135 L Potassium Chloride Carbon Dioxide BUN Creatinine 0.2 L Glucose POC Glucose 106 H 107 H Lactic Acid Calcium 8.2 L Phosphorus Magnesium Total Bilirubin AST Total Protein Albumin Prealbumin Crossmatch 05/15/18 05/15/18 05/15/18 06:24 11:31 16:47 WBC RBC Hgb Hct MCH RDW Lymph % (Auto) [place] % (Auto) Lymph # Seg Neutrophils % Seg Neuts % (Manual) Lymphocytes % (Manual) Seg Neutrophils # Man Lymphocytes # (Manual) PT INR VBG pH Sodium Potassium Chloride Carbon Dioxide BUN Creatinine Glucose POC Glucose 125 H 133 H 135 H Lactic Acid Calcium Phosphorus Magnesium Total Bilirubin AST Total Protein Albumin Prealbumin Crossmatch 05/16/18 05/16/18 05/16/18 00:13 04:30 05:59 WBC RBC Hgb Hct MCH RDW Lymph % (Auto) [place] % (Auto) Lymph # Seg Neutrophils % Seg Neuts % (Manual) Lymphocytes % (Manual) Seg Neutrophils # Man Lymphocytes # (Manual) PT INR VBG pH Sodium Potassium Chloride Carbon Dioxide BUN Creatinine 0.2 L Glucose POC Glucose 132 H 113 H Lactic Acid Calcium Phosphorus Magnesium Total Bilirubin AST Total Protein Albumin Prealbumin Crossmatch 05/16/18 05/16/18 05/17/18 13:03 18:51 05:06 WBC RBC Hgb Hct MCH RDW Lymph % (Auto) [place] % (Auto) Lymph # Seg Neutrophils % Seg Neuts % (Manual) Lymphocytes % (Manual) Seg Neutrophils # Man Lymphocytes # (Manual) PT INR VBG pH Sodium Potassium Chloride Carbon Dioxide BUN Creatinine Glucose POC Glucose 112 H 111 H 128 H Lactic Acid Calcium Phosphorus Magnesium Total Bilirubin AST Total Protein Albumin Prealbumin Crossmatch 05/17/18 05/17/18 05/18/18 06:07 23:54 07:05 WBC RBC Hgb Hct MCH RDW Lymph % (Auto) [place] % (Auto) Lymph # Seg Neutrophils % Seg Neuts % (Manual) Lymphocytes % (Manual) Seg Neutrophils # Man Lymphocytes # (Manual) PT INR VBG pH Sodium 135 L Potassium Chloride Carbon Dioxide BUN Creatinine 0.2 L Glucose 133 H POC Glucose 120 H 119 H Lactic Acid Calcium Phosphorus Magnesium Total Bilirubin AST Total Protein Albumin Prealbumin Crossmatch 05/18/18 05/18/18 05/18/18 07:43 11:29 16:29 WBC RBC Hgb Hct MCH RDW Lymph % (Auto) [place] % (Auto) Lymph # Seg Neutrophils % Seg Neuts % (Manual) Lymphocytes % (Manual) Seg Neutrophils # Man Lymphocytes # (Manual) PT INR VBG pH Sodium Potassium Chloride Carbon Dioxide BUN Creatinine 0.2 L Glucose 117 H POC Glucose 149 H 108 H Lactic Acid Calcium 8.2 L Phosphorus Magnesium Total Bilirubin AST Total Protein Albumin Prealbumin Crossmatch 05/19/18 05/19/18 05/20/18 23:15 Unknown 05:59 WBC RBC Hgb Hct MCH RDW Lymph % (Auto) [place] % (Auto) Lymph # Seg Neutrophils % Seg Neuts % (Manual) Lymphocytes % (Manual) Seg Neutrophils # Man Lymphocytes # (Manual) PT INR VBG pH Sodium 136 L Potassium Chloride Carbon Dioxide BUN Creatinine 0.2 L Glucose POC Glucose 106 H 114 H Lactic Acid Calcium Phosphorus 4.60 H D Magnesium Total Bilirubin AST Total Protein Albumin Prealbumin Crossmatch 05/20/18 05/20/18 05/20/18 06:25 17:52 23:59 WBC RBC Hgb Hct MCH RDW Lymph % (Auto) [place] % (Auto) Lymph # Seg Neutrophils % Seg Neuts % (Manual) Lymphocytes % (Manual) Seg Neutrophils # Man Lymphocytes # (Manual) PT INR VBG pH Sodium 135 L Potassium Chloride Carbon Dioxide BUN Creatinine 0.2 L Glucose 108 H POC Glucose 118 H 186 H Lactic Acid Calcium 8.3 L Phosphorus Magnesium Total Bilirubin AST Total Protein 5.6 L Albumin 2.9 L Prealbumin 0.113 L Crossmatch 05/21/18 05/21/18 05/21/18 04:40 06:36 07:20 WBC RBC 3.40 L Hgb 9.2 L Hct 28.0 L MCH 27 L RDW 16.2 H Lymph % (Auto) [place] % (Auto) 10.3 H Lymph # Seg Neutrophils % Seg Neuts % (Manual) Lymphocytes % (Manual) Seg Neutrophils # Man Lymphocytes # (Manual) PT INR VBG pH Sodium 135 L Potassium Chloride Carbon Dioxide BUN Creatinine < 0.2 L Glucose POC Glucose 138 H Lactic Acid Calcium 8.2 L Phosphorus Magnesium Total Bilirubin AST Total Protein Albumin Prealbumin Crossmatch 05/21/18 05/21/18 05/22/18 11:12 18:17 00:10 WBC RBC Hgb Hct MCH RDW Lymph % (Auto) [place] % (Auto) Lymph # Seg Neutrophils % Seg Neuts % (Manual) Lymphocytes % (Manual) Seg Neutrophils # Man Lymphocytes # (Manual) PT INR VBG pH Sodium Potassium Chloride Carbon Dioxide BUN Creatinine Glucose POC Glucose 137 H 134 H 127 H Lactic Acid Calcium Phosphorus Magnesium Total Bilirubin AST Total Protein Albumin Prealbumin Crossmatch 05/22/18 05/22/18 05/22/18 05:33 05:35 11:31 WBC RBC Hgb Hct MCH RDW Lymph % (Auto) [place] % (Auto) Lymph # Seg Neutrophils % Seg Neuts % (Manual) Lymphocytes % (Manual) Seg Neutrophils # Man Lymphocytes # (Manual) PT INR VBG pH Sodium Potassium Chloride Carbon Dioxide BUN Creatinine 0.2 L Glucose 115 H POC Glucose 135 H 171 H Lactic Acid Calcium 8.3 L Phosphorus Magnesium Total Bilirubin AST Total Protein Albumin Prealbumin Crossmatch 05/23/18 05/23/18 05/23/18 00:29 05:25 11:30 WBC RBC Hgb Hct MCH RDW Lymph % (Auto) [place] % (Auto) Lymph # Seg Neutrophils % Seg Neuts % (Manual) Lymphocytes % (Manual) Seg Neutrophils # Man Lymphocytes # (Manual) PT INR VBG pH Sodium 135 L Potassium Chloride Carbon Dioxide BUN Creatinine 0.2 L Glucose 113 H POC Glucose 157 H 141 H Lactic Acid Calcium 8.2 L Phosphorus Magnesium Total Bilirubin AST Total Protein Albumin Prealbumin Crossmatch 05/24/18 05/24/18 05/24/18 05:40 11:26 17:26 WBC RBC Hgb Hct MCH RDW Lymph % (Auto) [place] % (Auto) Lymph # Seg Neutrophils % Seg Neuts % (Manual) Lymphocytes % (Manual) Seg Neutrophils # Man Lymphocytes # (Manual) PT INR VBG pH Sodium 133 L Potassium Chloride 97.7 L Carbon Dioxide BUN Creatinine 0.2 L Glucose POC Glucose 120 H 113 H Lactic Acid Calcium 8.1 L Phosphorus Magnesium Total Bilirubin AST Total Protein Albumin Prealbumin Crossmatch 05/25/18 05/25/18 05/25/18 05:00 18:30 22:32 WBC RBC Hgb Hct MCH RDW Lymph % (Auto) [place] % (Auto) Lymph # Seg Neutrophils % Seg Neuts % (Manual) Lymphocytes % (Manual) Seg Neutrophils # Man Lymphocytes # (Manual) PT INR VBG pH Sodium 134 L Potassium Chloride 97.2 L Carbon Dioxide BUN Creatinine 0.2 L Glucose POC Glucose 111 H 112 H Lactic Acid Calcium Phosphorus Magnesium Total Bilirubin AST Total Protein Albumin Prealbumin Crossmatch 05/26/18 05/26/18 05/27/18 06:15 12:03 01:31 WBC RBC Hgb Hct MCH RDW Lymph % (Auto) [place] % (Auto) Lymph # Seg Neutrophils % Seg Neuts % (Manual) Lymphocytes % (Manual) Seg Neutrophils # Man Lymphocytes # (Manual) PT INR VBG pH Sodium 136 L Potassium Chloride Carbon Dioxide BUN Creatinine 0.3 L Glucose POC Glucose 121 H 115 H Lactic Acid Calcium Phosphorus Magnesium Total Bilirubin AST Total Protein Albumin Prealbumin Crossmatch 05/27/18 05/27/18 05/27/18 05:27 05:27 06:26 WBC RBC 3.28 L Hgb 8.7 L Hct 26.5 L MCH 27 L RDW 16.3 H Lymph % (Auto) [place] % (Auto) 9.1 H Lymph # Seg Neutrophils % Seg Neuts % (Manual) Lymphocytes % (Manual) Seg Neutrophils # Man Lymphocytes # (Manual) PT INR VBG pH Sodium 134 L Potassium Chloride Carbon Dioxide BUN Creatinine 0.2 L Glucose 106 H POC Glucose 124 H Lactic Acid Calcium 8.2 L Phosphorus Magnesium Total Bilirubin AST Total Protein Albumin Prealbumin Crossmatch Allied health notes reviewed: nursing
[2018-05-27] MEDS: COZAAR PO SCH (11:52)
[2018-05-27] MEDS: LOPRESSOR PO SCH ×2 (11:53→21:09)
--- NOTE | 2018-05-27 12:31 | Progress Note ---
Assessment and Plan /Sepsis Etiology secondary to gangrenous and perforated appendix causing intra- abdominal/pelvic abscess. Patient is status post exploratory laparotomy with appendectomy and evacuation of pelvic abscess. Now off antibiotics and noted ID signed off. No fever off antibiotics. /Perforated appendix s/p exploratory lap Cont. TPN, started on clear liquid diet which increased drainage, suspicion for non healing perforation s/p repeat CT abdomen/pelvis on 05/25/18 recommended transfer to tertiary center - reference sent for [place] /Chronic hep C. Untreated. Outpatient follow-up. /Accel Hypertension. continue Cozaar to 100mg. Cont. Hydralazine prn. /Diarrhea: s/p lmodium prn x 1 /Tachycardia: secondary to dehydration and deconditioning. Fluids to be given and also started Low dose BB. /COPD. Compensated. nebs as needed /Neurofibromatosis: outpt follow up /Tobacco abuse. Patient counseled on smoking cessation FOR 15 MINS, Patient verbalized understanding and will think about it. /Severe protein calorie malnutrition; oil well engineer consulted. continue with TPN and advance diet as tolerated to wean off TPN /Hypotension-resolved BP better, Disposition - when cleared by surgery Brief history: The patient is a 57-year-old female with hypertension, neurofibromatosis, hepatitis C, COPD, nicotine dependence presented to the emergency room on 04/18/18 with complaints of abdominal pain going on for [address] scan obtained in the emergency room revealed a ruptured appendix with associated intra-abdominal abscess. General surgery was consulted and the patient underwent an emergent exploratory laparotomy with evacuation of pelvic abscess. She was noted to have a gangrenous, perforated appendix eroding including into the small bowel. As per the op note, the abscess could not be drained as the entire abscess and inflammatory process had trapped the small bowel, which was mobilized and she underwent an ileocolic anastomosis. The patient went back to the OR on 04/25/18 for drain dislodgment. * Continue local wound care and TPN * Surgical culture grew Ecoli and ester, completed treatment * CT abdomen: 05/18/18- Still shows minimal drainage, per surgery repeat CT of abd & pelvis with PO contrast done 05/25/18 showed no acute change - started on clear liquid but suspicion for non healing perforation, may need terciary center transfer * Urology was consulted for possible entro-vesico fistula due to the color of the urine, cystogram was normal. * Insurance denies LTAC, recommends SNF. Both surgeon and Patient believe SNF is the wrong place Hospitalist Physical VITAL SIGNS: Reviewed. GENERAL: The patient appeared well nourished and normally developed. Cachectic. Vital signs as documented. HEAD: No signs of head trauma. marked tempral wasting EYES: Pupils are equal. Extraocular motions intact. EARS: Hearing grossly intact. MOUTH: Oropharynx is normal. NECK: No adenopathy, no JVD. CHEST: Chest with clear breath sounds bilaterally. No wheezes, rales, or rhonchi. CARDIAC: Regular rate and rhythm. S1 and S2, without murmurs, gallops, or rubs. VASCULAR: No Edema. Peripheral pulses normal and equal in all extremities. ABDOMEN: Soft, midly distended, some tenderness. bilateral drain noted. hypoactive BS No rebound or guarding, and no masses palpated. MUSCULOSKELETAL: Good range of motion of all major joints. Extremities without clubbing, cyanosis or edema. NEUROLOGIC EXAM: Alert and oriented x 3. No focal sensory or strength deficits. Speech normal. Follows commands. PSYCHIATRIC: Mood normal. SKIN: neurofibromatosis lesions on face Subjective Date of service: 05/27/18 Principal diagnosis: Sepsis; Ex-lap appendectomy and evacuation of pelvic abscess; Peritonitis Interval history: Patient seen and examined this am with nursing staff. NPO again ad had increased drainage after starting clear liquid Objective - Constitutional Vitals: Vital Signs - 12hr 05/27/18 05/27/18 05/27/18 05:56 07:30 09:13 Temperature 99.1 F 98.1 F Pulse Rate 104 H 94 H Respiratory 20 20 20 Rate Blood Pressure 114/52 110/53 [Left] O2 Sat by Pulse 99 95 Oximetry - Labs CBC & Chem 7: 05/27/18 05:27 05/28/18 05:30 Labs: Abnormal lab results 05/27/18 05/27/18 05/27/18 Range/Units 01:31 05:27 05:27 RBC 3.28 L (3.65-5.03) M/mm3 Hgb 8.7 L (10.1-14.3) gm/dl Hct 26.5 L (30.3-42.9) % MCH 27 L (28-32) pg RDW 16.3 H (13.2-15.2) % [place] % (Auto) 9.1 H (0.0-7.3) % Sodium 134 L (137-145) mmol/L Creatinine 0.2 L (0.7-1.2) mg/dL Glucose 106 H (65-100) mg/dL POC Glucose 115 H (70-105) Calcium 8.2 L (8.4-10.2) mg/dL 05/27/18 05/27/18 Range/Units 06:26 11:46 RBC (3.65-5.03) M/mm3 Hgb (10.1-14.3) gm/dl Hct (30.3-42.9) % MCH (28-32) pg RDW (13.2-15.2) % [place] % (Auto) (0.0-7.3) % Sodium (137-145) mmol/L Creatinine (0.7-1.2) mg/dL Glucose (65-100) mg/dL POC Glucose 124 H 115 H (70-105) Calcium (8.4-10.2) mg/dL
[2018-05-27] MEDS ORDERED: TPN ADULT 1,800 ML IV SCH (20:00)
[2018-05-27] MEDS ORDERED: INTRALIPID 20% 250 ML IV SCH (20:00)
[2018-05-27] MEDS: REMERON PO SCH (21:11)
[2018-05-28] MEDS: DILAUDID IV PRN ×5 (01:31→20:41)
[2018-05-28] MEDS: XANAX PO PRN ×2 (05:13→13:14)
[2018-05-28 06:08] LABS: BUN/Creatinine Ratio 65; Blood Urea Nitrogen 13 mg/dL (7-17); Calcium 8.2 mg/dL (8.4-10.2); Hemolysis Index 0
[2018-05-28] MEDS: NEURONTIN PO SCH ×3 (08:19→20:41)
[2018-05-28] MEDS: BROVANA NEBU IH SCH ×2 (08:22→21:06)
[2018-05-28] MEDS: PULMICORT IH SCH ×2 (08:22→21:06)
[2018-05-28] MEDS: LOPRESSOR PO SCH ×2 (09:01→21:02)
[2018-05-28] MEDS: COZAAR PO SCH (09:02)
--- NOTE | 2018-05-28 11:20 | Progress Note ---
Assessment and Plan Pt status quo. 150 cc drainage/24 hrs Abd soft, non tender stable discussed case with [place] Transfer Team yesterday. awaiting f/u call to see if we can transfer. pt informed and waiting Selected Entries 05/28/18 08:17 Temperature 99.5 F Pulse Rate 117 H Laboratory Tests 05/27/18 05/28/18 05:27 05:30 WBC 6.3 Sodium 135 L Potassium 4.0 Chloride 102.0 Carbon Dioxide 23 BUN 13 Creatinine 0.2 L Objective Vital Signs - 12hr 05/28/18 05/28/18 05/28/18 00:41 05:44 08:17 Temperature 98.7 F 98.4 F 99.5 F Pulse Rate 109 H 107 H 117 H Pulse Rate [ Throughout] Respiratory 18 18 16 Rate Respiratory Rate [ Throughout] Blood Pressure 143/70 121/61 Blood Pressure 135/63 [Left] O2 Sat by Pulse 96 91 95 Oximetry 05/28/18 05/28/18 05/28/18 08:19 08:22 08:38 Temperature Pulse Rate Pulse Rate [ 116 H 114 H Throughout] Respiratory 20 Rate Respiratory 20 20 Rate [ Throughout] Blood Pressure Blood Pressure [Left] O2 Sat by Pulse Oximetry 05/28/18 05/28/18 09:01 09:02 Temperature Pulse Rate 117 H 117 H Pulse Rate [ Throughout] Respiratory Rate Respiratory Rate [ Throughout] Blood Pressure 135/63 135/63 Blood Pressure [Left] O2 Sat by Pulse Oximetry - Labs 05/27/18 05:27 05/28/18 05:30 Diabetes panel 05/28/18 Range/Units 05:30 Sodium 135 L (137-145) mmol/L Potassium 4.0 (3.6-5.0) mmol/L Chloride 102.0 (98-107) mmol/L Carbon Dioxide 23 (22-30) mmol/L BUN 13 (7-17) mg/dL Creatinine 0.2 L (0.7-1.2) mg/dL Glucose 102 H (65-100) mg/dL Calcium 8.2 L (8.4-10.2) mg/dL Calcium panel 05/28/18 Range/Units 05:30 Calcium 8.2 L (8.4-10.2) mg/dL Phosphorus 3.10 (2.5-4.5) mg/dL Pituitary panel 05/28/18 Range/Units 05:30 Sodium 135 L (137-145) mmol/L Potassium 4.0 (3.6-5.0) mmol/L Chloride 102.0 (98-107) mmol/L Carbon Dioxide 23 (22-30) mmol/L BUN 13 (7-17) mg/dL Creatinine 0.2 L (0.7-1.2) mg/dL Glucose 102 H (65-100) mg/dL Calcium 8.2 L (8.4-10.2) mg/dL Adrenal panel 05/28/18 Range/Units 05:30 Sodium 135 L (137-145) mmol/L Potassium 4.0 (3.6-5.0) mmol/L Chloride 102.0 (98-107) mmol/L Carbon Dioxide 23 (22-30) mmol/L BUN 13 (7-17) mg/dL Creatinine 0.2 L (0.7-1.2) mg/dL Glucose 102 H (65-100) mg/dL Calcium 8.2 L (8.4-10.2) mg/dL
--- NOTE | 2018-05-28 14:14 | Progress Note ---
Assessment and Plan Sepsis. Etiology secondary to gangrenous and perforated appendix causing intra- abdominal/pelvic abscess. status post exploratory laparotomy with appendectomy and evacuation of pelvic abscess. Intrabdominal sepsis/peritonitis Ruptured appendix with abdominal abscess Tobacco abuse disorder COPD Neurofibromatosis - repeat CXR in am - continue prn supplemental oxygen to keep O2 sats > 90% (especially while asleep) - continue bronchodilators with pulmonary hygiene per RT - continue brovana and pulmicort for chronic COPD - tentatively for transfer to [place] - continue aspiration precautions - abdominal drain to suction (adjust per surgeon) - s/p antibiotics course - IV fluids per surgeon - VTE prophylaxis - PT/OT/Mobility, OOB to chair daily - continue incentive spirometry - continue nicotine withdrawal precautions - Smoking cessation counselling was done at the bedside again today - Analgesia, pain management - NPO for now, serial abdominal exams ... re-evaluate in am & prn Subjective Date of service: 05/28/18 Principal diagnosis: Sepsis; Ex-lap appendectomy and evacuation of pelvic abscess; Peritonitis Interval history: Patient is seen today for: Sepsis; status post exploratory laparotomy with appendectomy and evacuation of pelvic abscess; Intrabdominal sepsis/peritonitis; Ruptured appendix with abdominal abscess Seen and examined at bedside; 24hour events reviewed; nursing and respiratory care staff consulted; no adverse overnight events reported to me; resting in bed; denies acute chest pains or palpitations; has been compliant with bronchodilator and inhaled corticosteroids treatments and with occasional prn NORBERT request's; still with intermittent abdominal pain Objective Vital Signs - 12hr 05/28/18 05/28/18 05/28/18 05:44 08:17 08:19 Temperature 98.4 F 99.5 F Pulse Rate 107 H 117 H Pulse Rate [ Throughout] Respiratory 18 16 20 Rate Respiratory Rate [ Throughout] Blood Pressure 121/61 Blood Pressure 135/63 [Left] O2 Sat by Pulse 91 95 Oximetry 05/28/18 05/28/18 05/28/18 08:22 08:38 08:49 Temperature Pulse Rate Pulse Rate [ 116 H 114 H Throughout] Respiratory 16 Rate Respiratory 20 20 Rate [ Throughout] Blood Pressure Blood Pressure [Left] O2 Sat by Pulse Oximetry 05/28/18 05/28/18 05/28/18 09:01 09:02 12:09 Temperature Pulse Rate 117 H 117 H Pulse Rate [ Throughout] Respiratory 20 Rate Respiratory Rate [ Throughout] Blood Pressure 135/63 135/63 Blood Pressure [Left] O2 Sat by Pulse Oximetry 05/28/18 12:39 Temperature Pulse Rate Pulse Rate [ Throughout] Respiratory 16 Rate Respiratory Rate [ Throughout] Blood Pressure Blood Pressure [Left] O2 Sat by Pulse Oximetry Constitutional: no acute distress, alert, other (chronically ill looking this middle aged CF, normocephalic) Eyes: non-icteric ENT: oropharynx moist, other (Mallampati 2) Neck: supple, no lymphadenopathy, no JVD Effort: mildly labored Ascultation: Bilateral: diminished breath sounds, rhonchi (scant in bases) Percussion: Bilateral: not dull Cardiovascular: regular rate and rhythm Gastrointestinal: normoactive bowel sounds, soft, tender (bhargav-op site), non- distended, other (Drain in place with non-bloody effluent) Integumentary: other (poor turgor; ? neurofibromatous nodules over body) Extremities: no cyanosis, no edema, pink and warm, pulses normal Neurologic: normal mental status, non-focal exam, pupils equal and round, motor strength normal and Psychiatric: mood appropriate, anxious CBC and BMP: 05/29/18 11:14 05/29/18 05:05 ABG, PT/INR, D-dimer: ABG POC ABG pH 7.367 (7.35-7.45) 04/19/18 00:19 POC ABG pCO2 36.8 (35-45) 04/19/18 00:19 POC ABG pO2 84 (80-105) 04/19/18 00:19 POC ABG HCO3 21.1 04/19/18 00:19 POC ABG Total CO2 22 04/19/18 00:19 POC ABG O2 Sat 96 04/19/18 00:19 PT/INR, D-dimer PT 15.3 Sec. (12.2-14.9) H 04/22/18 05:19 INR 1.17 (0.87-1.13) H 04/22/18 05:19 Abnormal lab findings: Abnormal Labs 04/18/18 04/18/18 04/18/18 14:30 14:30 14:30 WBC 18.6 H RBC Hgb Hct MCH RDW Lymph % (Auto) [place] % (Auto) Lymph # Seg Neutrophils % Seg Neuts % (Manual) 79.0 H Lymphocytes % (Manual) 4.0 L Seg Neutrophils # Man 14.7 H Lymphocytes # (Manual) 0.7 L PT 16.3 H INR 1.27 H VBG pH Sodium 121 L Potassium 3.0 L Chloride 78.0 L Carbon Dioxide BUN Creatinine 0.5 L Glucose 110 H POC Glucose Lactic Acid Calcium Phosphorus Magnesium Total Bilirubin 1.30 H AST 42 H Total Protein Albumin 3.1 L Prealbumin Crossmatch 04/18/18 04/18/18 04/18/18 14:30 14:30 23:59 WBC RBC Hgb Hct MCH RDW 15.8 H Lymph % (Auto) [place] % (Auto) Lymph # Seg Neutrophils % Seg Neuts % (Manual) 78.0 H Lymphocytes % (Manual) 6.0 L Seg Neutrophils # Man Lymphocytes # (Manual) 0.5 L PT INR VBG pH 7.439 H Sodium Potassium Chloride Carbon Dioxide BUN Creatinine Glucose POC Glucose Lactic Acid 3.60 H* Calcium Phosphorus Magnesium Total Bilirubin AST Total Protein Albumin Prealbumin Crossmatch 04/18/18 04/19/18 04/19/18 23:59 05:19 05:19 WBC 15.0 H RBC Hgb Hct MCH RDW 15.3 H Lymph % (Auto) [place] % (Auto) Lymph # Seg Neutrophils % Seg Neuts % (Manual) Lymphocytes % (Manual) 5.0 L Seg Neutrophils # Man 8.3 H Lymphocytes # (Manual) 0.8 L PT INR VBG pH Sodium 130 L D 133 L Potassium 3.5 L 3.3 L Chloride Carbon Dioxide 20 L D BUN Creatinine 0.5 L 0.6 L Glucose 140 H 115 H POC Glucose Lactic Acid Calcium 7.5 L 7.4 L Phosphorus Magnesium Total Bilirubin AST Total Protein 4.4 L D 4.1 L Albumin 2.0 L 1.9 L Prealbumin Crossmatch 04/19/18 04/19/18 04/20/18 05:19 13:05 05:18 WBC RBC Hgb Hct MCH RDW Lymph % (Auto) [place] % (Auto) Lymph # Seg Neutrophils % Seg Neuts % (Manual) Lymphocytes % (Manual) Seg Neutrophils # Man Lymphocytes # (Manual) PT 19.4 H 17.4 H INR 1.59 H 1.38 H VBG pH Sodium Potassium Chloride Carbon Dioxide BUN Creatinine Glucose POC Glucose Lactic Acid Calcium Phosphorus Magnesium Total Bilirubin AST Total Protein Albumin Prealbumin Crossmatch See Detail 04/20/18 04/20/18 04/21/18 13:47 13:47 04:52 WBC RBC 3.29 L 3.10 L Hgb 9.6 L 8.8 L Hct 28.1 L D 26.6 L MCH RDW 15.3 H 15.4 H Lymph % (Auto) 5.6 L [place] % (Auto) Lymph # 0.4 L Seg Neutrophils % 87.3 H Seg Neuts % (Manual) Lymphocytes % (Manual) Seg Neutrophils # Man Lymphocytes # (Manual) PT INR VBG pH Sodium Potassium Chloride Carbon Dioxide BUN Creatinine 0.3 L Glucose 102 H POC Glucose Lactic Acid Calcium 8.0 L Phosphorus Magnesium Total Bilirubin AST Total Protein Albumin Prealbumin Crossmatch 04/21/18 04/22/18 04/22/18 04:52 05:19 05:19 WBC RBC 3.64 L Hgb Hct MCH RDW Lymph % (Auto) 8.5 L [place] % (Auto) 9.9 H Lymph # 0.6 L Seg Neutrophils % 81.0 H Seg Neuts % (Manual) Lymphocytes % (Manual) Seg Neutrophils # Man Lymphocytes # (Manual) PT 15.3 H INR 1.17 H VBG pH Sodium Potassium 3.2 L Chloride Carbon Dioxide BUN Creatinine 0.3 L Glucose POC Glucose Lactic Acid Calcium 7.6 L Phosphorus Magnesium Total Bilirubin AST Total Protein Albumin Prealbumin Crossmatch 04/22/18 04/24/18 04/24/18 05:19 07:19 07:19 WBC RBC Hgb Hct MCH RDW Lymph % (Auto) [place] % (Auto) Lymph # Seg Neutrophils % Seg Neuts % (Manual) Lymphocytes % (Manual) Seg Neutrophils # Man Lymphocytes # (Manual) PT INR VBG pH Sodium Potassium 3.4 L 2.9 L* Chloride Carbon Dioxide BUN Creatinine 0.3 L 0.3 L Glucose 103 H POC Glucose Lactic Acid Calcium 7.7 L 7.5 L Phosphorus Magnesium 1.60 L Total Bilirubin AST Total Protein 4.3 L Albumin 2.2 L Prealbumin Crossmatch 04/24/18 04/25/18 04/25/18 07:23 06:28 06:28 WBC RBC Hgb Hct MCH RDW 15.3 H 15.9 H Lymph % (Auto) 10.1 L [place] % (Auto) Lymph # 0.8 L Seg Neutrophils % 80.6 H Seg Neuts % (Manual) Lymphocytes % (Manual) 9.0 L Seg Neutrophils # Man Lymphocytes # (Manual) 0.7 L PT INR VBG pH Sodium Potassium 3.0 L Chloride Carbon Dioxide BUN 5 L Creatinine 0.2 L Glucose 108 H POC Glucose Lactic Acid Calcium 7.4 L Phosphorus Magnesium Total Bilirubin AST Total Protein 4.6 L Albumin 2.5 L Prealbumin Crossmatch 04/25/18 04/26/18 04/26/18 06:28 05:45 05:45 WBC 11.9 H RBC Hgb Hct MCH RDW 16.2 H Lymph % (Auto) [place] % (Auto) Lymph # Seg Neutrophils % Seg Neuts % (Manual) Lymphocytes % (Manual) Seg Neutrophils # Man Lymphocytes # (Manual) PT INR VBG pH Sodium Potassium Chloride Carbon Dioxide BUN 5 L Creatinine 0.2 L Glucose 119 H POC Glucose Lactic Acid Calcium 7.7 L Phosphorus 2.00 L 2.20 L Magnesium Total Bilirubin AST Total Protein Albumin Prealbumin Crossmatch 04/27/18 04/28/18 04/28/18 05:33 06:00 06:00 WBC 11.2 H RBC Hgb Hct MCH RDW 16.0 H Lymph % (Auto) [place] % (Auto) Lymph # Seg Neutrophils % Seg Neuts % (Manual) 92.0 H Lymphocytes % (Manual) 5.0 L Seg Neutrophils # Man 10.3 H Lymphocytes # (Manual) 0.6 L PT INR VBG pH Sodium Potassium 3.4 L 3.1 L Chloride Carbon Dioxide BUN 6 L 4 L Creatinine 0.2 L 0.2 L Glucose 119 H POC Glucose Lactic Acid Calcium 7.5 L 7.1 L Phosphorus 2.00 L 2.10 L Magnesium 1.50 L Total Bilirubin AST Total Protein 4.3 L Albumin 2.1 L Prealbumin Crossmatch 04/29/18 04/29/18 04/29/18 05:18 05:18 17:49 WBC 12.0 H RBC Hgb Hct MCH RDW 16.0 H Lymph % (Auto) [place] % (Auto) Lymph # Seg Neutrophils % Seg Neuts % (Manual) 87.0 H Lymphocytes % (Manual) 10.0 L Seg Neutrophils # Man 10.4 H Lymphocytes # (Manual) PT INR VBG pH Sodium 135 L Potassium Chloride Carbon Dioxide BUN Creatinine 0.2 L Glucose 120 H POC Glucose 108 H Lactic Acid Calcium 7.5 L Phosphorus Magnesium Total Bilirubin AST Total Protein Albumin Prealbumin Crossmatch 04/30/18 04/30/18 04/30/18 00:03 05:18 05:41 WBC RBC Hgb Hct MCH RDW Lymph % (Auto) [place] % (Auto) Lymph # Seg Neutrophils % Seg Neuts % (Manual) Lymphocytes % (Manual) Seg Neutrophils # Man Lymphocytes # (Manual) PT INR VBG pH Sodium 133 L Potassium Chloride Carbon Dioxide BUN Creatinine 0.2 L Glucose 119 H POC Glucose 112 H 110 H Lactic Acid Calcium 7.5 L Phosphorus Magnesium Total Bilirubin AST Total Protein Albumin Prealbumin Crossmatch 04/30/18 05/01/18 05/01/18 05:41 00:39 04:45 WBC RBC 3.60 L Hgb Hct MCH RDW 16.0 H Lymph % (Auto) [place] % (Auto) Lymph # Seg Neutrophils % Seg Neuts % (Manual) 88.0 H Lymphocytes % (Manual) 8.0 L Seg Neutrophils # Man Lymphocytes # (Manual) 0.7 L PT INR VBG pH Sodium 132 L Potassium Chloride Carbon Dioxide BUN Creatinine 0.2 L Glucose 101 H POC Glucose 119 H Lactic Acid Calcium 7.6 L Phosphorus Magnesium Total Bilirubin AST Total Protein Albumin Prealbumin Crossmatch 05/01/18 05/01/18 05/01/18 06:30 16:09 23:42 WBC RBC Hgb Hct MCH RDW Lymph % (Auto) [place] % (Auto) Lymph # Seg Neutrophils % Seg Neuts % (Manual) Lymphocytes % (Manual) Seg Neutrophils # Man Lymphocytes # (Manual) PT INR VBG pH Sodium Potassium Chloride Carbon Dioxide BUN Creatinine Glucose POC Glucose 126 H 160 H 113 H Lactic Acid Calcium Phosphorus Magnesium Total Bilirubin AST Total Protein Albumin Prealbumin Crossmatch 05/02/18 05/02/18 05/02/18 04:55 06:41 11:53 WBC RBC Hgb Hct MCH RDW Lymph % (Auto) [place] % (Auto) Lymph # Seg Neutrophils % Seg Neuts % (Manual) Lymphocytes % (Manual) Seg Neutrophils # Man Lymphocytes # (Manual) PT INR VBG pH Sodium 134 L Potassium Chloride Carbon Dioxide BUN Creatinine 0.2 L Glucose 113 H POC Glucose 146 H 113 H Lactic Acid Calcium 7.4 L Phosphorus Magnesium Total Bilirubin AST Total Protein Albumin Prealbumin Crossmatch 0205/02/18 05/03/18 17:33 23:37 08:46 WBC RBC 3.36 L Hgb 9.7 L Hct 28.7 L MCH RDW 16.3 H Lymph % (Auto) [place] % (Auto) 10.0 H Lymph # Seg Neutrophils % Seg Neuts % (Manual) Lymphocytes % (Manual) Seg Neutrophils # Man Lymphocytes # (Manual) PT INR VBG pH Sodium Potassium Chloride Carbon Dioxide BUN Creatinine Glucose POC Glucose 106 H 123 H Lactic Acid Calcium Phosphorus Magnesium Total Bilirubin AST Total Protein Albumin Prealbumin Crossmatch 05/03/18 05/03/18 05/04/18 11:54 12:15 06:59 WBC RBC Hgb Hct MCH RDW Lymph % (Auto) [place] % (Auto) Lymph # Seg Neutrophils % Seg Neuts % (Manual) Lymphocytes % (Manual) Seg Neutrophils # Man Lymphocytes # (Manual) PT INR VBG pH Sodium 136 L Potassium Chloride Carbon Dioxide BUN Creatinine 0.2 L Glucose 131 H POC Glucose 109 H 161 H Lactic Acid Calcium 7.6 L Phosphorus Magnesium Total Bilirubin AST Total Protein Albumin Prealbumin Crossmatch 05/04/18 05/04/18 05/04/18 07:03 08:02 11:10 WBC RBC 3.52 L Hgb Hct 29.8 L MCH RDW 16.2 H Lymph % (Auto) [place] % (Auto) 8.6 H Lymph # Seg Neutrophils % Seg Neuts % (Manual) Lymphocytes % (Manual) Seg Neutrophils # Man Lymphocytes # (Manual) PT INR VBG pH Sodium 135 L Potassium Chloride Carbon Dioxide BUN Creatinine 0.2 L Glucose 160 H POC Glucose 106 H Lactic Acid Calcium 7.7 L Phosphorus Magnesium Total Bilirubin AST Total Protein Albumin Prealbumin Crossmatch 05/04/18 05/05/18 05/05/18 23:38 11:28 16:55 WBC RBC Hgb Hct MCH RDW Lymph % (Auto) [place] % (Auto) Lymph # Seg Neutrophils % Seg Neuts % (Manual) Lymphocytes % (Manual) Seg Neutrophils # Man Lymphocytes # (Manual) PT INR VBG pH Sodium Potassium Chloride Carbon Dioxide BUN Creatinine Glucose POC Glucose 121 H 119 H 108 H Lactic Acid Calcium Phosphorus Magnesium Total Bilirubin AST Total Protein Albumin Prealbumin Crossmatch 05/05/18 05/06/18 05/06/18 Unknown 05:35 16:40 WBC RBC Hgb Hct MCH RDW Lymph % (Auto) [place] % (Auto) Lymph # Seg Neutrophils % Seg Neuts % (Manual) Lymphocytes % (Manual) Seg Neutrophils # Man Lymphocytes # (Manual) PT INR VBG pH Sodium 135 L 136 L Potassium Chloride 97.9 L Carbon Dioxide BUN Creatinine 0.2 L 0.2 L Glucose 119 H POC Glucose 133 H Lactic Acid Calcium 8.0 L 8.1 L Phosphorus Magnesium Total Bilirubin AST 46 H Total Protein 5.5 L Albumin 2.7 L Prealbumin Crossmatch 05/06/18 05/07/18 05/07/18 22:07 05:38 05:40 WBC RBC Hgb Hct MCH RDW Lymph % (Auto) [place] % (Auto) Lymph # Seg Neutrophils % Seg Neuts % (Manual) Lymphocytes % (Manual) Seg Neutrophils # Man Lymphocytes # (Manual) PT INR VBG pH Sodium 133 L Potassium Chloride Carbon Dioxide BUN Creatinine 0.2 L Glucose POC Glucose 168 H 107 H Lactic Acid Calcium 8.2 L Phosphorus Magnesium Total Bilirubin AST Total Protein Albumin Prealbumin Crossmatch 05/07/18 05/07/18 05/08/18 11:56 18:04 05:38 WBC RBC Hgb Hct MCH RDW 16.3 H Lymph % (Auto) [place] % (Auto) 7.7 H Lymph # Seg Neutrophils % Seg Neuts % (Manual) Lymphocytes % (Manual) Seg Neutrophils # Man Lymphocytes # (Manual) PT INR VBG pH Sodium Potassium Chloride Carbon Dioxide BUN Creatinine Glucose POC Glucose 145 H 125 H Lactic Acid Calcium Phosphorus Magnesium Total Bilirubin AST Total Protein Albumin Prealbumin Crossmatch 05/08/18 05/08/18 05/08/18 05:38 11:35 16:23 WBC RBC Hgb Hct MCH RDW Lymph % (Auto) [place] % (Auto) Lymph # Seg Neutrophils % Seg Neuts % (Manual) Lymphocytes % (Manual) Seg Neutrophils # Man Lymphocytes # (Manual) PT INR VBG pH Sodium 135 L Potassium Chloride Carbon Dioxide BUN Creatinine 0.2 L Glucose POC Glucose 118 H 131 H Lactic Acid Calcium Phosphorus Magnesium Total Bilirubin AST Total Protein Albumin Prealbumin Crossmatch 05/08/18 05/09/18 05/09/18 21:40 05:46 06:15 WBC RBC Hgb Hct MCH RDW Lymph % (Auto) [place] % (Auto) Lymph # Seg Neutrophils % Seg Neuts % (Manual) Lymphocytes % (Manual) Seg Neutrophils # Man Lymphocytes # (Manual) PT INR VBG pH Sodium 135 L Potassium Chloride 97.5 L Carbon Dioxide BUN Creatinine 0.2 L Glucose POC Glucose 110 H 115 H Lactic Acid Calcium Phosphorus Magnesium Total Bilirubin AST Total Protein Albumin Prealbumin Crossmatch 05/09/18 05/09/18 05/10/18 11:28 23:53 06:22 WBC RBC Hgb Hct MCH RDW Lymph % (Auto) [place] % (Auto) Lymph # Seg Neutrophils % Seg Neuts % (Manual) Lymphocytes % (Manual) Seg Neutrophils # Man Lymphocytes # (Manual) PT INR VBG pH Sodium Potassium Chloride Carbon Dioxide BUN Creatinine Glucose POC Glucose 145 H 132 H 149 H Lactic Acid Calcium Phosphorus Magnesium Total Bilirubin AST Total Protein Albumin Prealbumin Crossmatch 05/10/18 05/10/18 05/11/18 16:14 23:24 05:00 WBC RBC Hgb Hct MCH RDW Lymph % (Auto) [place] % (Auto) Lymph # Seg Neutrophils % Seg Neuts % (Manual) Lymphocytes % (Manual) Seg Neutrophils # Man Lymphocytes # (Manual) PT INR VBG pH Sodium Potassium Chloride Carbon Dioxide BUN Creatinine 0.2 L Glucose 113 H POC Glucose 119 H 119 H Lactic Acid Calcium Phosphorus Magnesium Total Bilirubin AST Total Protein Albumin Prealbumin Crossmatch 05/11/18 05/11/18 05/11/18 05:57 11:23 16:29 WBC RBC Hgb Hct MCH RDW Lymph % (Auto) [place] % (Auto) Lymph # Seg Neutrophils % Seg Neuts % (Manual) Lymphocytes % (Manual) Seg Neutrophils # Man Lymphocytes # (Manual) PT INR VBG pH Sodium Potassium Chloride Carbon Dioxide BUN Creatinine Glucose POC Glucose 173 H 143 H 159 H Lactic Acid Calcium Phosphorus Magnesium Total Bilirubin AST Total Protein Albumin Prealbumin Crossmatch 05/12/18 05/12/18 05/12/18 00:47 06:23 11:21 WBC RBC Hgb Hct MCH RDW Lymph % (Auto) [place] % (Auto) Lymph # Seg Neutrophils % Seg Neuts % (Manual) Lymphocytes % (Manual) Seg Neutrophils # Man Lymphocytes # (Manual) PT INR VBG pH Sodium Potassium Chloride Carbon Dioxide BUN Creatinine Glucose POC Glucose 139 H 136 H 116 H Lactic Acid Calcium Phosphorus Magnesium Total Bilirubin AST Total Protein Albumin Prealbumin Crossmatch 05/12/18 05/12/18 05/12/18 17:19 17:22 22:22 WBC RBC Hgb Hct MCH RDW Lymph % (Auto) [place] % (Auto) Lymph # Seg Neutrophils % Seg Neuts % (Manual) Lymphocytes % (Manual) Seg Neutrophils # Man Lymphocytes # (Manual) PT INR VBG pH Sodium Potassium Chloride Carbon Dioxide BUN Creatinine Glucose POC Glucose 329 H 116 H 124 H Lactic Acid Calcium Phosphorus Magnesium Total Bilirubin AST Total Protein Albumin Prealbumin Crossmatch 05/13/18 05/13/18 05/13/18 18:35 22:25 Unknown WBC RBC Hgb Hct MCH RDW Lymph % (Auto) [place] % (Auto) Lymph # Seg Neutrophils % Seg Neuts % (Manual) Lymphocytes % (Manual) Seg Neutrophils # Man Lymphocytes # (Manual) PT INR VBG pH Sodium 136 L Potassium Chloride 97.8 L Carbon Dioxide BUN Creatinine 0.2 L Glucose POC Glucose 137 H 106 H Lactic Acid Calcium Phosphorus Magnesium Total Bilirubin AST 41 H Total Protein Albumin 3.5 L Prealbumin Crossmatch 05/14/18 05/14/18 05/14/18 06:40 06:40 12:48 WBC RBC 3.48 L Hgb 9.8 L Hct 29.1 L MCH RDW 15.6 H Lymph % (Auto) [place] % (Auto) Lymph # Seg Neutrophils % Seg Neuts % (Manual) Lymphocytes % (Manual) Seg Neutrophils # Man Lymphocytes # (Manual) PT INR VBG pH Sodium Potassium Chloride Carbon Dioxide BUN Creatinine 0.2 L Glucose POC Glucose 113 H Lactic Acid Calcium 8.1 L Phosphorus Magnesium Total Bilirubin AST Total Protein Albumin Prealbumin Crossmatch 05/14/18 05/14/18 05/15/18 17:52 22:04 05:10 WBC RBC Hgb Hct MCH RDW Lymph % (Auto) [place] % (Auto) Lymph # Seg Neutrophils % Seg Neuts % (Manual) Lymphocytes % (Manual) Seg Neutrophils # Man Lymphocytes # (Manual) PT INR VBG pH Sodium 135 L Potassium Chloride Carbon Dioxide BUN Creatinine 0.2 L Glucose POC Glucose 106 H 107 H Lactic Acid Calcium 8.2 L Phosphorus Magnesium Total Bilirubin AST Total Protein Albumin Prealbumin Crossmatch 05/15/18 05/15/18 05/15/18 06:24 11:31 16:47 WBC RBC Hgb Hct MCH RDW Lymph % (Auto) [place] % (Auto) Lymph # Seg Neutrophils % Seg Neuts % (Manual) Lymphocytes % (Manual) Seg Neutrophils # Man Lymphocytes # (Manual) PT INR VBG pH Sodium Potassium Chloride Carbon Dioxide BUN Creatinine Glucose POC Glucose 125 H 133 H 135 H Lactic Acid Calcium Phosphorus Magnesium Total Bilirubin AST Total Protein Albumin Prealbumin Crossmatch 05/16/18 05/16/18 05/16/18 00:13 04:30 05:59 WBC RBC Hgb Hct MCH RDW Lymph % (Auto) [place] % (Auto) Lymph # Seg Neutrophils % Seg Neuts % (Manual) Lymphocytes % (Manual) Seg Neutrophils # Man Lymphocytes # (Manual) PT INR VBG pH Sodium Potassium Chloride Carbon Dioxide BUN Creatinine 0.2 L Glucose POC Glucose 132 H 113 H Lactic Acid Calcium Phosphorus Magnesium Total Bilirubin AST Total Protein Albumin Prealbumin Crossmatch 05/16/18 05/16/18 05/17/18 13:03 18:51 05:06 WBC RBC Hgb Hct MCH RDW Lymph % (Auto) [place] % (Auto) Lymph # Seg Neutrophils % Seg Neuts % (Manual) Lymphocytes % (Manual) Seg Neutrophils # Man Lymphocytes # (Manual) PT INR VBG pH Sodium Potassium Chloride Carbon Dioxide BUN Creatinine Glucose POC Glucose 112 H 111 H 128 H Lactic Acid Calcium Phosphorus Magnesium Total Bilirubin AST Total Protein Albumin Prealbumin Crossmatch 05/17/18 05/17/18 05/18/18 06:07 23:54 07:05 WBC RBC Hgb Hct MCH RDW Lymph % (Auto) [place] % (Auto) Lymph # Seg Neutrophils % Seg Neuts % (Manual) Lymphocytes % (Manual) Seg Neutrophils # Man Lymphocytes # (Manual) PT INR VBG pH Sodium 135 L Potassium Chloride Carbon Dioxide BUN Creatinine 0.2 L Glucose 133 H POC Glucose 120 H 119 H Lactic Acid Calcium Phosphorus Magnesium Total Bilirubin AST Total Protein Albumin Prealbumin Crossmatch 05/18/18 05/18/18 05/18/18 07:43 11:29 16:29 WBC RBC Hgb Hct MCH RDW Lymph % (Auto) [place] % (Auto) Lymph # Seg Neutrophils % Seg Neuts % (Manual) Lymphocytes % (Manual) Seg Neutrophils # Man Lymphocytes # (Manual) PT INR VBG pH Sodium Potassium Chloride Carbon Dioxide BUN Creatinine 0.2 L Glucose 117 H POC Glucose 149 H 108 H Lactic Acid Calcium 8.2 L Phosphorus Magnesium Total Bilirubin AST Total Protein Albumin Prealbumin Crossmatch 05/19/18 05/19/18 05/20/18 23:15 Unknown 05:59 WBC RBC Hgb Hct MCH RDW Lymph % (Auto) [place] % (Auto) Lymph # Seg Neutrophils % Seg Neuts % (Manual) Lymphocytes % (Manual) Seg Neutrophils # Man Lymphocytes # (Manual) PT INR VBG pH Sodium 136 L Potassium Chloride Carbon Dioxide BUN Creatinine 0.2 L Glucose POC Glucose 106 H 114 H Lactic Acid Calcium Phosphorus 4.60 H D Magnesium Total Bilirubin AST Total Protein Albumin Prealbumin Crossmatch 05/20/18 05/20/18 05/20/18 06:25 17:52 23:59 WBC RBC Hgb Hct MCH RDW Lymph % (Auto) [place] % (Auto) Lymph # Seg Neutrophils % Seg Neuts % (Manual) Lymphocytes % (Manual) Seg Neutrophils # Man Lymphocytes # (Manual) PT INR VBG pH Sodium 135 L Potassium Chloride Carbon Dioxide BUN Creatinine 0.2 L Glucose 108 H POC Glucose 118 H 186 H Lactic Acid Calcium 8.3 L Phosphorus Magnesium Total Bilirubin AST Total Protein 5.6 L Albumin 2.9 L Prealbumin 0.113 L Crossmatch 05/21/18 05/21/18 05/21/18 04:40 06:36 07:20 WBC RBC 3.40 L Hgb 9.2 L Hct 28.0 L MCH 27 L RDW 16.2 H Lymph % (Auto) [place] % (Auto) 10.3 H Lymph # Seg Neutrophils % Seg Neuts % (Manual) Lymphocytes % (Manual) Seg Neutrophils # Man Lymphocytes # (Manual) PT INR VBG pH Sodium 135 L Potassium Chloride Carbon Dioxide BUN Creatinine < 0.2 L Glucose POC Glucose 138 H Lactic Acid Calcium 8.2 L Phosphorus Magnesium Total Bilirubin AST Total Protein Albumin Prealbumin Crossmatch 05/21/18 05/21/18 05/22/18 11:12 18:17 00:10 WBC RBC Hgb Hct MCH RDW Lymph % (Auto) [place] % (Auto) Lymph # Seg Neutrophils % Seg Neuts % (Manual) Lymphocytes % (Manual) Seg Neutrophils # Man Lymphocytes # (Manual) PT INR VBG pH Sodium Potassium Chloride Carbon Dioxide BUN Creatinine Glucose POC Glucose 137 H 134 H 127 H Lactic Acid Calcium Phosphorus Magnesium Total Bilirubin AST Total Protein Albumin Prealbumin Crossmatch 05/22/18 05/22/18 05/22/18 05:33 05:35 11:31 WBC RBC Hgb Hct MCH RDW Lymph % (Auto) [place] % (Auto) Lymph # Seg Neutrophils % Seg Neuts % (Manual) Lymphocytes % (Manual) Seg Neutrophils # Man Lymphocytes # (Manual) PT INR VBG pH Sodium Potassium Chloride Carbon Dioxide BUN Creatinine 0.2 L Glucose 115 H POC Glucose 135 H 171 H Lactic Acid Calcium 8.3 L Phosphorus Magnesium Total Bilirubin AST Total Protein Albumin Prealbumin Crossmatch 05/23/18 05/23/18 05/23/18 00:29 05:25 11:30 WBC RBC Hgb Hct MCH RDW Lymph % (Auto) [place] % (Auto) Lymph # Seg Neutrophils % Seg Neuts % (Manual) Lymphocytes % (Manual) Seg Neutrophils # Man Lymphocytes # (Manual) PT INR VBG pH Sodium 135 L Potassium Chloride Carbon Dioxide BUN Creatinine 0.2 L Glucose 113 H POC Glucose 157 H 141 H Lactic Acid Calcium 8.2 L Phosphorus Magnesium Total Bilirubin AST Total Protein Albumin Prealbumin Crossmatch 05/24/18 05/24/18 05/24/18 05:40 11:26 17:26 WBC RBC Hgb Hct MCH RDW Lymph % (Auto) [place] % (Auto) Lymph # Seg Neutrophils % Seg Neuts % (Manual) Lymphocytes % (Manual) Seg Neutrophils # Man Lymphocytes # (Manual) PT INR VBG pH Sodium 133 L Potassium Chloride 97.7 L Carbon Dioxide BUN Creatinine 0.2 L Glucose POC Glucose 120 H 113 H Lactic Acid Calcium 8.1 L Phosphorus Magnesium Total Bilirubin AST Total Protein Albumin Prealbumin Crossmatch 05/25/18 05/25/18 05/25/18 05:00 18:30 22:32 WBC RBC Hgb Hct MCH RDW Lymph % (Auto) [place] % (Auto) Lymph # Seg Neutrophils % Seg Neuts % (Manual) Lymphocytes % (Manual) Seg Neutrophils # Man Lymphocytes # (Manual) PT INR VBG pH Sodium 134 L Potassium Chloride 97.2 L Carbon Dioxide BUN Creatinine 0.2 L Glucose POC Glucose 111 H 112 H Lactic Acid Calcium Phosphorus Magnesium Total Bilirubin AST Total Protein Albumin Prealbumin Crossmatch 05/26/18 05/26/18 05/27/18 06:15 12:03 01:31 WBC RBC Hgb Hct MCH RDW Lymph % (Auto) [place] % (Auto) Lymph # Seg Neutrophils % Seg Neuts % (Manual) Lymphocytes % (Manual) Seg Neutrophils # Man Lymphocytes # (Manual) PT INR VBG pH Sodium 136 L Potassium Chloride Carbon Dioxide BUN Creatinine 0.3 L Glucose POC Glucose 121 H 115 H Lactic Acid Calcium Phosphorus Magnesium Total Bilirubin AST Total Protein Albumin Prealbumin Crossmatch 05/27/18 05/27/18 05/27/18 05:27 05:27 06:26 WBC RBC 3.28 L Hgb 8.7 L Hct 26.5 L MCH 27 L RDW 16.3 H Lymph % (Auto) [place] % (Auto) 9.1 H Lymph # Seg Neutrophils % Seg Neuts % (Manual) Lymphocytes % (Manual) Seg Neutrophils # Man Lymphocytes # (Manual) PT INR VBG pH Sodium 134 L Potassium Chloride Carbon Dioxide BUN Creatinine 0.2 L Glucose 106 H POC Glucose 124 H Lactic Acid Calcium 8.2 L Phosphorus Magnesium Total Bilirubin AST Total Protein Albumin Prealbumin Crossmatch 05/27/18 05/27/18 05/28/18 11:46 17:41 05:30 WBC RBC Hgb Hct MCH RDW Lymph % (Auto) [place] % (Auto) Lymph # Seg Neutrophils % Seg Neuts % (Manual) Lymphocytes % (Manual) Seg Neutrophils # Man Lymphocytes # (Manual) PT INR VBG pH Sodium 135 L Potassium Chloride Carbon Dioxide BUN Creatinine 0.2 L Glucose 102 H POC Glucose 115 H 113 H Lactic Acid Calcium 8.2 L Phosphorus Magnesium Total Bilirubin AST Total Protein Albumin Prealbumin Crossmatch 05/28/18 05/28/18 05:44 13:09 WBC RBC Hgb Hct MCH RDW Lymph % (Auto) [place] % (Auto) Lymph # Seg Neutrophils % Seg Neuts % (Manual) Lymphocytes % (Manual) Seg Neutrophils # Man Lymphocytes # (Manual) PT INR VBG pH Sodium Potassium Chloride Carbon Dioxide BUN Creatinine Glucose POC Glucose 107 H 134 H Lactic Acid Calcium Phosphorus Magnesium Total Bilirubin AST Total Protein Albumin Prealbumin Crossmatch Allied health notes reviewed: nursing
--- NOTE | 2018-05-28 15:45 | Progress Note ---
Assessment and Plan /Sepsis Etiology secondary to gangrenous and perforated appendix causing intra- abdominal/pelvic abscess. Patient is status post exploratory laparotomy with appendectomy and evacuation of pelvic abscess. Now off antibiotics and noted ID signed off. No fever off antibiotics. /Perforated appendix s/p exploratory lap Cont. TPN, started on clear liquid diet which increased drainage, suspicion for non healing perforation s/p repeat CT abdomen/pelvis on 05/25/18 recommended transfer to tertiary center - reference sent for [facility] /Chronic hep C. Untreated. Outpatient follow-up. /Accel Hypertension. continue Cozaar to 100mg. Cont. Hydralazine prn. /Diarrhea: s/p lmodium prn x 1 /Tachycardia: secondary to dehydration and deconditioning. Fluids to be given and also started Low dose BB. /COPD. Compensated. nebs as needed /Neurofibromatosis: outpt follow up /Tobacco abuse. Patient counseled on smoking cessation FOR 15 MINS, Patient verbalized understanding and will think about it. /Severe protein calorie malnutrition; compress trucker consulted. continue with TPN and advance diet as tolerated to wean off TPN /Hypotension-resolved BP better, Disposition - when cleared by surgery Brief history: The patient is a 57-year-old female with hypertension, neurofibromatosis, hepatitis C, COPD, nicotine dependence presented to the emergency room on 04/18/18 with complaints of abdominal pain going on for [address] scan obtained in the emergency room revealed a ruptured appendix with associated intra-abdominal abscess. General surgery was consulted and the patient underwent an emergent exploratory laparotomy with evacuation of pelvic abscess. She was noted to have a gangrenous, perforated appendix eroding including into the small bowel. As per the op note, the abscess could not be drained as the entire abscess and inflammatory process had trapped the small bowel, which was mobilized and she underwent an ileocolic anastomosis. The patient went back to the OR on 04/25/18 for drain dislodgment. * Continue local wound care and TPN * Surgical culture grew Ecoli and ester, completed treatment * CT abdomen: 05/18/18- Still shows minimal drainage, per surgery repeat CT of abd & pelvis with PO contrast done 05/25/18 showed no acute change - started on clear liquid but suspicion for non healing perforation, may need terciary center transfer * Urology was consulted for possible entro-vesico fistula due to the color of the urine, cystogram was normal. * Insurance denies LTAC, recommends SNF. Both surgeon and Patient believe SNF is the wrong place Hospitalist Physical VITAL SIGNS: Reviewed. GENERAL: The patient appeared well nourished and normally developed. Cachectic. Vital signs as documented. HEAD: No signs of head trauma. marked tempral wasting EYES: Pupils are equal. Extraocular motions intact. EARS: Hearing grossly intact. MOUTH: Oropharynx is normal. NECK: No adenopathy, no JVD. CHEST: Chest with clear breath sounds bilaterally. No wheezes, rales, or rhonchi. CARDIAC: Regular rate and rhythm. S1 and S2, without murmurs, gallops, or rubs. VASCULAR: No Edema. Peripheral pulses normal and equal in all extremities. ABDOMEN: Soft, midly distended, some tenderness. bilateral drain noted. hypoactive BS No rebound or guarding, and no masses palpated. MUSCULOSKELETAL: Good range of motion of all major joints. Extremities without clubbing, cyanosis or edema. NEUROLOGIC EXAM: Alert and oriented x 3. No focal sensory or strength deficits. Speech normal. Follows commands. PSYCHIATRIC: Mood normal. SKIN: neurofibromatosis lesions on face Subjective Date of service: 05/28/18 Principal diagnosis: Sepsis; Ex-lap appendectomy and evacuation of pelvic abscess; Peritonitis Interval history: Patient seen and examined this am with nursing staff. NPO again as had increased drainage after starting clear liquid patient is resting w/o any acute distress Objective - Constitutional Vitals: Vital Signs - 12hr 05/28/18 05/28/18 05/28/18 05:44 08:17 08:19 Temperature 98.4 F 99.5 F Pulse Rate 107 H 117 H Pulse Rate [ Throughout] Respiratory 18 16 20 Rate Respiratory Rate [ Throughout] Blood Pressure 121/61 Blood Pressure 135/63 [Left] O2 Sat by Pulse 91 95 Oximetry 05/28/18 05/28/18 05/28/18 08:22 08:38 08:49 Temperature Pulse Rate Pulse Rate [ 116 H 114 H Throughout] Respiratory 16 Rate Respiratory 20 20 Rate [ Throughout] Blood Pressure Blood Pressure [Left] O2 Sat by Pulse Oximetry 05/28/18 05/28/18 05/28/18 09:01 09:02 12:09 Temperature Pulse Rate 117 H 117 H Pulse Rate [ Throughout] Respiratory 20 Rate Respiratory Rate [ Throughout] Blood Pressure 135/63 135/63 Blood Pressure [Left] O2 Sat by Pulse Oximetry 05/28/18 12:39 Temperature Pulse Rate Pulse Rate [ Throughout] Respiratory 16 Rate Respiratory Rate [ Throughout] Blood Pressure Blood Pressure [Left] O2 Sat by Pulse Oximetry - Labs CBC & Chem 7: 05/27/18 05:27 05/29/18 05:05 Labs: Abnormal lab results 05/27/18 05/28/18 05/28/18 Range/Units 17:41 05:30 05:44 Sodium 135 L (137-145) mmol/L Creatinine 0.2 L (0.7-1.2) mg/dL Glucose 102 H (65-100) mg/dL POC Glucose 113 H 107 H (70-105) Calcium 8.2 L (8.4-10.2) mg/dL 05/28/18 Range/Units 13:09 Sodium (137-145) mmol/L Creatinine (0.7-1.2) mg/dL Glucose (65-100) mg/dL POC Glucose 134 H (70-105) Calcium (8.4-10.2) mg/dL
[2018-05-28] MEDS ORDERED: TPN ADULT 1,800 ML IV SCH (20:00)
[2018-05-28] MEDS: REMERON PO SCH (21:01)
[2018-05-29] MEDS: DILAUDID IV PRN ×6 (01:04→21:01)
[2018-05-29] MEDS: ZOFRAN IV PRN ×2 (05:41→13:46)
[2018-05-29 05:43] LABS: BUN/Creatinine Ratio 65; Blood Urea Nitrogen 13 mg/dL (7-17); Hemolysis Index 1
--- NOTE | 2018-05-29 08:50 | Progress Note ---
Assessment and Plan Pt states had "a little more abd pain yesterday evening thru this am". "better now". Pt slightly tacypneic Sump drain 400 cc? Abd soft, non tender at present. Discussed case with [facility]. currently they have no beds. We might consider transferring pt to LTAC or possibly home TPN if feel that pt will be compliant and remain NPO. Concerned about increased pain and drainage. repeat wbc today CxR will attempt to contact other tertiary institutions for possible transfer. Will repeat CT of abd if pain recurs or increased drainage persists Selected Entries 05/29/18 07:25 Temperature 99.6 F Pulse Rate 96 H Respiratory 18 Rate Blood Pressure 144/76 [Left] Laboratory Tests 05/29/18 05:05 Sodium 138 Potassium 3.5 L Chloride 104.9 BUN 13 Creatinine < 0.2 L Objective Vital Signs - 12hr 05/28/18 05/28/18 05/28/18 21:02 23:00 23:56 Temperature 97.8 F Pulse Rate 103 H 97 H Respiratory 20 20 Rate Respiratory Rate [Abdomen] Blood Pressure 161/83 136/78 Blood Pressure [Left] O2 Sat by Pulse 94 Oximetry 05/29/18 05/29/18 05/29/18 01:04 04:15 05:36 Temperature 99.0 F Pulse Rate 98 H Respiratory 18 20 18 Rate Respiratory Rate [Abdomen] Blood Pressure 149/82 Blood Pressure [Left] O2 Sat by Pulse 94 Oximetry 05/29/18 05/29/18 05:55 07:25 Temperature 99.6 F Pulse Rate 96 H Respiratory 18 Rate Respiratory 0 L Rate [Abdomen] Blood Pressure Blood Pressure 144/76 [Left] O2 Sat by Pulse 96 Oximetry - Labs 05/27/18 05:27 05/29/18 05:05 Diabetes panel 05/29/18 Range/Units 05:05 Sodium 138 (137-145) mmol/L Potassium 3.5 L (3.6-5.0) mmol/L Chloride 104.9 (98-107) mmol/L Carbon Dioxide 21 L (22-30) mmol/L BUN 13 (7-17) mg/dL Creatinine < 0.2 L (0.7-1.2) mg/dL Glucose 114 H (65-100) mg/dL Calcium 8.0 L (8.4-10.2) mg/dL Calcium panel 05/29/18 Range/Units 05:05 Calcium 8.0 L (8.4-10.2) mg/dL Phosphorus 2.20 L D (2.5-4.5) mg/dL Pituitary panel 05/29/18 Range/Units 05:05 Sodium 138 (137-145) mmol/L Potassium 3.5 L (3.6-5.0) mmol/L Chloride 104.9 (98-107) mmol/L Carbon Dioxide 21 L (22-30) mmol/L BUN 13 (7-17) mg/dL Creatinine < 0.2 L (0.7-1.2) mg/dL Glucose 114 H (65-100) mg/dL Calcium 8.0 L (8.4-10.2) mg/dL Adrenal panel 05/29/18 Range/Units 05:05 Sodium 138 (137-145) mmol/L Potassium 3.5 L (3.6-5.0) mmol/L Chloride 104.9 (98-107) mmol/L Carbon Dioxide 21 L (22-30) mmol/L BUN 13 (7-17) mg/dL Creatinine < 0.2 L (0.7-1.2) mg/dL Glucose 114 H (65-100) mg/dL Calcium 8.0 L (8.4-10.2) mg/dL
[2018-05-29] MEDS: PULMICORT IH SCH ×2 (09:02→22:19)
[2018-05-29] MEDS: BROVANA NEBU IH SCH ×2 (09:02→22:19)
[2018-05-29] MEDS: LOPRESSOR PO SCH ×2 (09:03→21:00)
[2018-05-29] MEDS: COZAAR PO SCH (09:03)
[2018-05-29] MEDS: NEURONTIN PO SCH ×3 (09:03→21:00)
[2018-05-29] MEDS: XANAX PO PRN ×2 (09:15→22:48)
--- NOTE | 2018-05-29 10:24 | XRay Report ---
ROUTINE CHEST, TWO VIEWS: HISTORY: Short of breath. The trachea, heart, mediastinal contour, lung gonzales and bony thorax are unremarkable. Right arm PICC is in good position. No change since 05/21/18. IMPRESSION: Unremarkable chest x-ray.
[2018-05-29] MEDS: DURAGESIC TD SCH (11:13)
--- NOTE | 2018-05-29 11:34 | Progress Note ---
Assessment and Plan /Sepsis Etiology secondary to gangrenous and perforated appendix causing intra- abdominal/pelvic abscess. Patient is status post exploratory laparotomy with appendectomy and evacuation of pelvic abscess. Now off antibiotics and noted ID signed off. No fever off antibiotics. /Perforated appendix s/p exploratory lap Cont. TPN, started on clear liquid diet which increased drainage, suspicion for non healing perforation s/p repeat CT abdomen/pelvis on 05/25/18 recommended transfer to tertiary center - reference sent for [facility], but they have no bed /Chronic hep C. Untreated. Outpatient follow-up. /Accel Hypertension. continue Cozaar to 100mg. Cont. Hydralazine prn. /Diarrhea: s/p lmodium prn x 1 /Tachycardia: secondary to dehydration and deconditioning. Fluids to be given and also started Low dose BB. /COPD. Compensated. nebs as needed /Neurofibromatosis: outpt follow up /Tobacco abuse. Patient counseled on smoking cessation FOR 15 MINS, Patient verbalized understanding and will think about it. /Severe protein calorie malnutrition; vegetable tier consulted. continue with TPN and advance diet as tolerated to wean off TPN /Hypotension-resolved BP better, Disposition - when cleared by surgery Brief history: The patient is a 57-year-old female with hypertension, neurofibromatosis, hepatitis C, COPD, nicotine dependence presented to the emergency room on 04/18/18 with complaints of abdominal pain going on for [address] scan obtained in the emergency room revealed a ruptured appendix with associated intra-abdominal abscess. General surgery was consulted and the patient underwent an emergent exploratory laparotomy with evacuation of pelvic abscess. She was noted to have a gangrenous, perforated appendix eroding including into the small bowel. As per the op note, the abscess could not be drained as the entire abscess and inflammatory process had trapped the small bowel, which was mobilized and she underwent an ileocolic anastomosis. The patient went back to the OR on 04/25/18 for drain dislodgment. * Continue local wound care and TPN * Surgical culture grew Ecoli and ester, completed treatment * CT abdomen: 05/18/18- Still shows minimal drainage, per surgery repeat CT of abd & pelvis with PO contrast done 05/25/18 showed no acute change - started on clear liquid but suspicion for non healing perforation, may need terciary center transfer * Urology was consulted for possible entro-vesico fistula due to the color of the urine, cystogram was normal. * Insurance denies LTAC, recommends SNF. Both Patient refuses SNF Hospitalist Physical VITAL SIGNS: Reviewed. GENERAL: The patient appeared well nourished and normally developed. Cachectic. Vital signs as documented. HEAD: No signs of head trauma. marked tempral wasting EYES: Pupils are equal. Extraocular motions intact. EARS: Hearing grossly intact. MOUTH: Oropharynx is normal. NECK: No adenopathy, no JVD. CHEST: Chest with clear breath sounds bilaterally. No wheezes, rales, or rhonchi. CARDIAC: Regular rate and rhythm. S1 and S2, without murmurs, gallops, or rubs. VASCULAR: No Edema. Peripheral pulses normal and equal in all extremities. ABDOMEN: Soft, midly distended, some tenderness. bilateral drain noted. hypoactive BS No rebound or guarding, and no masses palpated. MUSCULOSKELETAL: Good range of motion of all major joints. Extremities without clubbing, cyanosis or edema. NEUROLOGIC EXAM: Alert and oriented x 3. No focal sensory or strength deficits. Speech normal. Follows commands. PSYCHIATRIC: Mood normal. SKIN: neurofibromatosis lesions on face Subjective Date of service: 05/29/18 Principal diagnosis: Sepsis; Ex-lap appendectomy and evacuation of pelvic abscess; Peritonitis Interval history: Patient seen and examined this am with nursing staff. NPO again as had increased drainage after starting clear liquid patient is resting w/o any acute distress Pending transfer to tertiary center, if cannot go then need to set up HH for [facility] TPN Objective - Constitutional Vitals: Vital Signs - 12hr 05/28/18 05/29/18 05/29/18 23:56 01:04 04:15 Temperature 97.8 F 99.0 F Pulse Rate 97 H 98 H Pulse Rate [ Anterior Bilateral Throughout] Respiratory 20 18 20 Rate Respiratory Rate [Abdomen] Respiratory Rate [Anterior Bilateral Throughout] Blood Pressure 136/78 149/82 Blood Pressure [Left] O2 Sat by Pulse 94 94 Oximetry 05/29/18 05/29/18 05/29/18 05:36 05:55 07:25 Temperature 99.6 F Pulse Rate 96 H Pulse Rate [ Anterior Bilateral Throughout] Respiratory 18 18 Rate Respiratory 0 L Rate [Abdomen] Respiratory Rate [Anterior Bilateral Throughout] Blood Pressure Blood Pressure 144/76 [Left] O2 Sat by Pulse 96 Oximetry 05/29/18 05/29/18 09:02 09:12 Temperature Pulse Rate Pulse Rate [ 99 H 100 H Anterior Bilateral Throughout] Respiratory Rate Respiratory Rate [Abdomen] Respiratory 18 18 Rate [Anterior Bilateral Throughout] Blood Pressure Blood Pressure [Left] O2 Sat by Pulse Oximetry - Labs CBC & Chem 7: 05/29/18 11:14 05/30/18 04:40 Labs: Abnormal lab results 05/28/18 05/28/18 05/28/18 Range/Units 13:09 17:01 23:57 Potassium (3.6-5.0) mmol/L Carbon Dioxide (22-30) mmol/L Creatinine (0.7-1.2) mg/dL Glucose (65-100) mg/dL POC Glucose 134 H 122 H 111 H (70-105) Calcium (8.4-10.2) mg/dL Phosphorus (2.5-4.5) mg/dL 05/29/18 05/29/18 05/29/18 Range/Units 05:05 05:40 11:31 Potassium 3.5 L (3.6-5.0) mmol/L Carbon Dioxide 21 L (22-30) mmol/L Creatinine < 0.2 L (0.7-1.2) mg/dL Glucose 114 H (65-100) mg/dL POC Glucose 114 H 178 H (70-105) Calcium 8.0 L (8.4-10.2) mg/dL Phosphorus 2.20 L D (2.5-4.5) mg/dL
[2018-05-29 11:43] LABS: Basophils % (Auto) 0.3 % (0.0-1.8); Eosinophils % (Auto) 0.4 % (0.0-4.3); Hematocrit 27.7 % (30.3-42.9); Hemoglobin 8.9 gm/dl (10.1-14.3); Lymphocytes # (Auto) 0.8 K/mm3 (1.2-5.4); Lymphocytes % (Auto) 22.4 % (13.4-35.0); Mean Corpuscular HGB Conc 32 % (30-34); Mean Corpuscular Volume 82 fl (79-97); Monocytes # (Auto) 0.5 K/mm3 (0.0-0.8); Monocytes % (Auto) 12.7 % (0.0-7.3); Platelet Count 154 K/mm3 (140-440); Red Blood Count 3.39 M/mm3 (3.65-5.03); Red Cell Distribution Width 16.1 % (13.2-15.2)
--- NOTE | 2018-05-29 12:58 | Progress Note ---
Assessment and Plan Sepsis. Etiology secondary to gangrenous and perforated appendix causing intra- abdominal/pelvic abscess. status post exploratory laparotomy with appendectomy and evacuation of pelvic abscess. Intrabdominal sepsis/peritonitis Ruptured appendix with abdominal abscess Acute Hypoxemic Respiratory Failure (Resolved) Tobacco abuse disorder COPD Neurofibromatosis - repeat CXR in am - continue prn supplemental oxygen to keep O2 sats > 90% (especially while asleep) - continue bronchodilators with pulmonary hygiene per RT - continue brovana and pulmicort for chronic COPD - tentatively for transfer to [place] - continue aspiration precautions - abdominal drain to suction (adjust per surgeon) - s/p antibiotics course - IV fluids per surgeon - VTE prophylaxis - PT/OT/Mobility, OOB to chair daily - continue incentive spirometry - continue nicotine withdrawal precautions - Smoking cessation counselling was done at the bedside again today - Analgesia, pain management - NPO for now, serial abdominal exams ... re-evaluate in am & prn Subjective Date of service: 05/29/18 Principal diagnosis: Sepsis; Ex-lap appendectomy and evacuation of pelvic abscess; Peritonitis Interval history: Patient is seen today for: Sepsis; status post exploratory laparotomy with appendectomy and evacuation of pelvic abscess; Intrabdominal sepsis/peritonitis; Ruptured appendix with abdominal abscess Seen and examined at bedside; 24hour events reviewed; nursing and respiratory care staff consulted; no adverse overnight events reported to me; resting in bed; Objective Vital Signs - 12hr 05/29/18 05/29/18 05/29/18 01:04 04:15 05:36 Temperature 99.0 F Pulse Rate 98 H Pulse Rate [ Anterior Bilateral Throughout] Respiratory 18 20 18 Rate Respiratory Rate [Abdomen] Respiratory Rate [Anterior Bilateral Throughout] Blood Pressure 149/82 Blood Pressure [Left] O2 Sat by Pulse 94 Oximetry 05/29/18 05/29/18 05/29/18 05:55 07:25 09:02 Temperature 99.6 F Pulse Rate 96 H Pulse Rate [ 99 H Anterior Bilateral Throughout] Respiratory 18 Rate Respiratory 0 L Rate [Abdomen] Respiratory 18 Rate [Anterior Bilateral Throughout] Blood Pressure Blood Pressure 144/76 [Left] O2 Sat by Pulse 96 Oximetry 05/29/18 05/29/18 09:12 11:45 Temperature 98.6 F Pulse Rate 94 H Pulse Rate [ 100 H Anterior Bilateral Throughout] Respiratory 19 Rate Respiratory Rate [Abdomen] Respiratory 18 Rate [Anterior Bilateral Throughout] Blood Pressure Blood Pressure 134/62 [Left] O2 Sat by Pulse 96 Oximetry Constitutional: no acute distress, alert, other (chronically ill looking this middle aged CF, normocephalic) Eyes: non-icteric ENT: oropharynx moist, other (Mallampati 2) Neck: supple, no lymphadenopathy, no JVD Effort: mildly labored Ascultation: Bilateral: diminished breath sounds, rhonchi (scant in bases) Percussion: Bilateral: not dull Cardiovascular: regular rate and rhythm Gastrointestinal: normoactive bowel sounds, soft, tender (bhargav-op site), non- distended, other (Drain in place with non-bloody effluent) Integumentary: other (poor turgor; ? neurofibromatous nodules over body) Extremities: no cyanosis, no edema, pink and warm, pulses normal Neurologic: normal mental status, non-focal exam, pupils equal and round, motor strength normal and Psychiatric: mood appropriate, anxious CBC and BMP: 05/29/18 11:14 05/29/18 05:05 ABG, PT/INR, D-dimer: ABG POC ABG pH 7.367 (7.35-7.45) 04/19/18 00:19 POC ABG pCO2 36.8 (35-45) 04/19/18 00:19 POC ABG pO2 84 (80-105) 04/19/18 00:19 POC ABG HCO3 21.1 04/19/18 00:19 POC ABG Total CO2 22 04/19/18 00:19 POC ABG O2 Sat 96 04/19/18 00:19 PT/INR, D-dimer PT 15.3 Sec. (12.2-14.9) H 04/22/18 05:19 INR 1.17 (0.87-1.13) H 04/22/18 05:19 Abnormal lab findings: Abnormal Labs 04/18/18 04/18/18 04/18/18 14:30 14:30 14:30 WBC 18.6 H RBC Hgb Hct MCH RDW Lymph % (Auto) [place] % (Auto) Lymph # Seg Neutrophils % Seg Neuts % (Manual) 79.0 H Lymphocytes % (Manual) 4.0 L Seg Neutrophils # Man 14.7 H Lymphocytes # (Manual) 0.7 L PT 16.3 H INR 1.27 H VBG pH Sodium 121 L Potassium 3.0 L Chloride 78.0 L Carbon Dioxide BUN Creatinine 0.5 L Glucose 110 H POC Glucose Lactic Acid Calcium Phosphorus Magnesium Total Bilirubin 1.30 H AST 42 H Total Protein Albumin 3.1 L Prealbumin Crossmatch 04/18/18 04/18/18 04/18/18 14:30 14:30 23:59 WBC RBC Hgb Hct MCH RDW 15.8 H Lymph % (Auto) [place] % (Auto) Lymph # Seg Neutrophils % Seg Neuts % (Manual) 78.0 H Lymphocytes % (Manual) 6.0 L Seg Neutrophils # Man Lymphocytes # (Manual) 0.5 L PT INR VBG pH 7.439 H Sodium Potassium Chloride Carbon Dioxide BUN Creatinine Glucose POC Glucose Lactic Acid 3.60 H* Calcium Phosphorus Magnesium Total Bilirubin AST Total Protein Albumin Prealbumin Crossmatch 04/18/18 04/19/18 04/19/18 23:59 05:19 05:19 WBC 15.0 H RBC Hgb Hct MCH RDW 15.3 H Lymph % (Auto) [place] % (Auto) Lymph # Seg Neutrophils % Seg Neuts % (Manual) Lymphocytes % (Manual) 5.0 L Seg Neutrophils # Man 8.3 H Lymphocytes # (Manual) 0.8 L PT INR VBG pH Sodium 130 L D 133 L Potassium 3.5 L 3.3 L Chloride Carbon Dioxide 20 L D BUN Creatinine 0.5 L 0.6 L Glucose 140 H 115 H POC Glucose Lactic Acid Calcium 7.5 L 7.4 L Phosphorus Magnesium Total Bilirubin AST Total Protein 4.4 L D 4.1 L Albumin 2.0 L 1.9 L Prealbumin Crossmatch 04/19/18 04/19/18 04/20/18 05:19 13:05 05:18 WBC RBC Hgb Hct MCH RDW Lymph % (Auto) [place] % (Auto) Lymph # Seg Neutrophils % Seg Neuts % (Manual) Lymphocytes % (Manual) Seg Neutrophils # Man Lymphocytes # (Manual) PT 19.4 H 17.4 H INR 1.59 H 1.38 H VBG pH Sodium Potassium Chloride Carbon Dioxide BUN Creatinine Glucose POC Glucose Lactic Acid Calcium Phosphorus Magnesium Total Bilirubin AST Total Protein Albumin Prealbumin Crossmatch See Detail 04/20/18 04/20/18 04/21/18 13:47 13:47 04:52 WBC RBC 3.29 L 3.10 L Hgb 9.6 L 8.8 L Hct 28.1 L D 26.6 L MCH RDW 15.3 H 15.4 H Lymph % (Auto) 5.6 L [place] % (Auto) Lymph # 0.4 L Seg Neutrophils % 87.3 H Seg Neuts % (Manual) Lymphocytes % (Manual) Seg Neutrophils # Man Lymphocytes # (Manual) PT INR VBG pH Sodium Potassium Chloride Carbon Dioxide BUN Creatinine 0.3 L Glucose 102 H POC Glucose Lactic Acid Calcium 8.0 L Phosphorus Magnesium Total Bilirubin AST Total Protein Albumin Prealbumin Crossmatch 04/21/18 04/22/18 04/22/18 04:52 05:19 05:19 WBC RBC 3.64 L Hgb Hct MCH RDW Lymph % (Auto) 8.5 L [place] % (Auto) 9.9 H Lymph # 0.6 L Seg Neutrophils % 81.0 H Seg Neuts % (Manual) Lymphocytes % (Manual) Seg Neutrophils # Man Lymphocytes # (Manual) PT 15.3 H INR 1.17 H VBG pH Sodium Potassium 3.2 L Chloride Carbon Dioxide BUN Creatinine 0.3 L Glucose POC Glucose Lactic Acid Calcium 7.6 L Phosphorus Magnesium Total Bilirubin AST Total Protein Albumin Prealbumin Crossmatch 04/22/18 04/24/18 04/24/18 05:19 07:19 07:19 WBC RBC Hgb Hct MCH RDW Lymph % (Auto) [place] % (Auto) Lymph # Seg Neutrophils % Seg Neuts % (Manual) Lymphocytes % (Manual) Seg Neutrophils # Man Lymphocytes # (Manual) PT INR VBG pH Sodium Potassium 3.4 L 2.9 L* Chloride Carbon Dioxide BUN Creatinine 0.3 L 0.3 L Glucose 103 H POC Glucose Lactic Acid Calcium 7.7 L 7.5 L Phosphorus Magnesium 1.60 L Total Bilirubin AST Total Protein 4.3 L Albumin 2.2 L Prealbumin Crossmatch 04/24/18 04/25/18 04/25/18 07:23 06:28 06:28 WBC RBC Hgb Hct MCH RDW 15.3 H 15.9 H Lymph % (Auto) 10.1 L [place] % (Auto) Lymph # 0.8 L Seg Neutrophils % 80.6 H Seg Neuts % (Manual) Lymphocytes % (Manual) 9.0 L Seg Neutrophils # Man Lymphocytes # (Manual) 0.7 L PT INR VBG pH Sodium Potassium 3.0 L Chloride Carbon Dioxide BUN 5 L Creatinine 0.2 L Glucose 108 H POC Glucose Lactic Acid Calcium 7.4 L Phosphorus Magnesium Total Bilirubin AST Total Protein 4.6 L Albumin 2.5 L Prealbumin Crossmatch 04/25/18 04/26/18 04/26/18 06:28 05:45 05:45 WBC 11.9 H RBC Hgb Hct MCH RDW 16.2 H Lymph % (Auto) [place] % (Auto) Lymph # Seg Neutrophils % Seg Neuts % (Manual) Lymphocytes % (Manual) Seg Neutrophils # Man Lymphocytes # (Manual) PT INR VBG pH Sodium Potassium Chloride Carbon Dioxide BUN 5 L Creatinine 0.2 L Glucose 119 H POC Glucose Lactic Acid Calcium 7.7 L Phosphorus 2.00 L 2.20 L Magnesium Total Bilirubin AST Total Protein Albumin Prealbumin Crossmatch 04/27/18 04/28/18 04/28/18 05:33 06:00 06:00 WBC 11.2 H RBC Hgb Hct MCH RDW 16.0 H Lymph % (Auto) [place] % (Auto) Lymph # Seg Neutrophils % Seg Neuts % (Manual) 92.0 H Lymphocytes % (Manual) 5.0 L Seg Neutrophils # Man 10.3 H Lymphocytes # (Manual) 0.6 L PT INR VBG pH Sodium Potassium 3.4 L 3.1 L Chloride Carbon Dioxide BUN 6 L 4 L Creatinine 0.2 L 0.2 L Glucose 119 H POC Glucose Lactic Acid Calcium 7.5 L 7.1 L Phosphorus 2.00 L 2.10 L Magnesium 1.50 L Total Bilirubin AST Total Protein 4.3 L Albumin 2.1 L Prealbumin Crossmatch 04/29/18 04/29/18 04/29/18 05:18 05:18 17:49 WBC 12.0 H RBC Hgb Hct MCH RDW 16.0 H Lymph % (Auto) [place] % (Auto) Lymph # Seg Neutrophils % Seg Neuts % (Manual) 87.0 H Lymphocytes % (Manual) 10.0 L Seg Neutrophils # Man 10.4 H Lymphocytes # (Manual) PT INR VBG pH Sodium 135 L Potassium Chloride Carbon Dioxide BUN Creatinine 0.2 L Glucose 120 H POC Glucose 108 H Lactic Acid Calcium 7.5 L Phosphorus Magnesium Total Bilirubin AST Total Protein Albumin Prealbumin Crossmatch 04/30/18 04/30/18 04/30/18 00:03 05:18 05:41 WBC RBC Hgb Hct MCH RDW Lymph % (Auto) [place] % (Auto) Lymph # Seg Neutrophils % Seg Neuts % (Manual) Lymphocytes % (Manual) Seg Neutrophils # Man Lymphocytes # (Manual) PT INR VBG pH Sodium 133 L Potassium Chloride Carbon Dioxide BUN Creatinine 0.2 L Glucose 119 H POC Glucose 112 H 110 H Lactic Acid Calcium 7.5 L Phosphorus Magnesium Total Bilirubin AST Total Protein Albumin Prealbumin Crossmatch 04/30/18 05/01/18 05/01/18 05:41 00:39 04:45 WBC RBC 3.60 L Hgb Hct MCH RDW 16.0 H Lymph % (Auto) [place] % (Auto) Lymph # Seg Neutrophils % Seg Neuts % (Manual) 88.0 H Lymphocytes % (Manual) 8.0 L Seg Neutrophils # Man Lymphocytes # (Manual) 0.7 L PT INR VBG pH Sodium 132 L Potassium Chloride Carbon Dioxide BUN Creatinine 0.2 L Glucose 101 H POC Glucose 119 H Lactic Acid Calcium 7.6 L Phosphorus Magnesium Total Bilirubin AST Total Protein Albumin Prealbumin Crossmatch 05/01/18 05/01/18 05/01/18 06:30 16:09 23:42 WBC RBC Hgb Hct MCH RDW Lymph % (Auto) [place] % (Auto) Lymph # Seg Neutrophils % Seg Neuts % (Manual) Lymphocytes % (Manual) Seg Neutrophils # Man Lymphocytes # (Manual) PT INR VBG pH Sodium Potassium Chloride Carbon Dioxide BUN Creatinine Glucose POC Glucose 126 H 160 H 113 H Lactic Acid Calcium Phosphorus Magnesium Total Bilirubin AST Total Protein Albumin Prealbumin Crossmatch 05/02/18 05/02/18 05/02/18 04:55 06:41 11:53 WBC RBC Hgb Hct MCH RDW Lymph % (Auto) [place] % (Auto) Lymph # Seg Neutrophils % Seg Neuts % (Manual) Lymphocytes % (Manual) Seg Neutrophils # Man Lymphocytes # (Manual) PT INR VBG pH Sodium 134 L Potassium Chloride Carbon Dioxide BUN Creatinine 0.2 L Glucose 113 H POC Glucose 146 H 113 H Lactic Acid Calcium 7.4 L Phosphorus Magnesium Total Bilirubin AST Total Protein Albumin Prealbumin Crossmatch 05/02/18 05/02/18 05/03/18 17:33 23:37 08:46 WBC RBC 3.36 L Hgb 9.7 L Hct 28.7 L MCH RDW 16.3 H Lymph % (Auto) [place] % (Auto) 10.0 H Lymph # Seg Neutrophils % Seg Neuts % (Manual) Lymphocytes % (Manual) Seg Neutrophils # Man Lymphocytes # (Manual) PT INR VBG pH Sodium Potassium Chloride Carbon Dioxide BUN Creatinine Glucose POC Glucose 106 H 123 H Lactic Acid Calcium Phosphorus Magnesium Total Bilirubin AST Total Protein Albumin Prealbumin Crossmatch 05/03/18 05/03/18 05/04/18 11:54 12:15 06:59 WBC RBC Hgb Hct MCH RDW Lymph % (Auto) [place] % (Auto) Lymph # Seg Neutrophils % Seg Neuts % (Manual) Lymphocytes % (Manual) Seg Neutrophils # Man Lymphocytes # (Manual) PT INR VBG pH Sodium 136 L Potassium Chloride Carbon Dioxide BUN Creatinine 0.2 L Glucose 131 H POC Glucose 109 H 161 H Lactic Acid Calcium 7.6 L Phosphorus Magnesium Total Bilirubin AST Total Protein Albumin Prealbumin Crossmatch 05/04/18 05/04/18 05/04/18 07:03 08:02 11:10 WBC RBC 3.52 L Hgb Hct 29.8 L MCH RDW 16.2 H Lymph % (Auto) [place] % (Auto) 8.6 H Lymph # Seg Neutrophils % Seg Neuts % (Manual) Lymphocytes % (Manual) Seg Neutrophils # Man Lymphocytes # (Manual) PT INR VBG pH Sodium 135 L Potassium Chloride Carbon Dioxide BUN Creatinine 0.2 L Glucose 160 H POC Glucose 106 H Lactic Acid Calcium 7.7 L Phosphorus Magnesium Total Bilirubin AST Total Protein Albumin Prealbumin Crossmatch 05/04/18 05/05/18 05/05/18 23:38 11:28 16:55 WBC RBC Hgb Hct MCH RDW Lymph % (Auto) [place] % (Auto) Lymph # Seg Neutrophils % Seg Neuts % (Manual) Lymphocytes % (Manual) Seg Neutrophils # Man Lymphocytes # (Manual) PT INR VBG pH Sodium Potassium Chloride Carbon Dioxide BUN Creatinine Glucose POC Glucose 121 H 119 H 108 H Lactic Acid Calcium Phosphorus Magnesium Total Bilirubin AST Total Protein Albumin Prealbumin Crossmatch 05/05/18 05/06/18 05/06/18 Unknown 05:35 16:40 WBC RBC Hgb Hct MCH RDW Lymph % (Auto) [place] % (Auto) Lymph # Seg Neutrophils % Seg Neuts % (Manual) Lymphocytes % (Manual) Seg Neutrophils # Man Lymphocytes # (Manual) PT INR VBG pH Sodium 135 L 136 L Potassium Chloride 97.9 L Carbon Dioxide BUN Creatinine 0.2 L 0.2 L Glucose 119 H POC Glucose 133 H Lactic Acid Calcium 8.0 L 8.1 L Phosphorus Magnesium Total Bilirubin AST 46 H Total Protein 5.5 L Albumin 2.7 L Prealbumin Crossmatch 05/06/18 05/07/18 05/07/18 22:07 05:38 05:40 WBC RBC Hgb Hct MCH RDW Lymph % (Auto) [place] % (Auto) Lymph # Seg Neutrophils % Seg Neuts % (Manual) Lymphocytes % (Manual) Seg Neutrophils # Man Lymphocytes # (Manual) PT INR VBG pH Sodium 133 L Potassium Chloride Carbon Dioxide BUN Creatinine 0.2 L Glucose POC Glucose 168 H 107 H Lactic Acid Calcium 8.2 L Phosphorus Magnesium Total Bilirubin AST Total Protein Albumin Prealbumin Crossmatch 05/07/18 05/07/18 05/08/18 11:56 18:04 05:38 WBC RBC Hgb Hct MCH RDW 16.3 H Lymph % (Auto) [place] % (Auto) 7.7 H Lymph # Seg Neutrophils % Seg Neuts % (Manual) Lymphocytes % (Manual) Seg Neutrophils # Man Lymphocytes # (Manual) PT INR VBG pH Sodium Potassium Chloride Carbon Dioxide BUN Creatinine Glucose POC Glucose 145 H 125 H Lactic Acid Calcium Phosphorus Magnesium Total Bilirubin AST Total Protein Albumin Prealbumin Crossmatch 05/08/18 05/08/18 05/08/18 05:38 11:35 16:23 WBC RBC Hgb Hct MCH RDW Lymph % (Auto) [place] % (Auto) Lymph # Seg Neutrophils % Seg Neuts % (Manual) Lymphocytes % (Manual) Seg Neutrophils # Man Lymphocytes # (Manual) PT INR VBG pH Sodium 135 L Potassium Chloride Carbon Dioxide BUN Creatinine 0.2 L Glucose POC Glucose 118 H 131 H Lactic Acid Calcium Phosphorus Magnesium Total Bilirubin AST Total Protein Albumin Prealbumin Crossmatch 05/08/18 05/09/18 05/09/18 21:40 05:46 06:15 WBC RBC Hgb Hct MCH RDW Lymph % (Auto) [place] % (Auto) Lymph # Seg Neutrophils % Seg Neuts % (Manual) Lymphocytes % (Manual) Seg Neutrophils # Man Lymphocytes # (Manual) PT INR VBG pH Sodium 135 L Potassium Chloride 97.5 L Carbon Dioxide BUN Creatinine 0.2 L Glucose POC Glucose 110 H 115 H Lactic Acid Calcium Phosphorus Magnesium Total Bilirubin AST Total Protein Albumin Prealbumin Crossmatch 05/09/18 05/09/18 05/10/18 11:28 23:53 06:22 WBC RBC Hgb Hct MCH RDW Lymph % (Auto) [place] % (Auto) Lymph # Seg Neutrophils % Seg Neuts % (Manual) Lymphocytes % (Manual) Seg Neutrophils # Man Lymphocytes # (Manual) PT INR VBG pH Sodium Potassium Chloride Carbon Dioxide BUN Creatinine Glucose POC Glucose 145 H 132 H 149 H Lactic Acid Calcium Phosphorus Magnesium Total Bilirubin AST Total Protein Albumin Prealbumin Crossmatch 05/10/18 05/10/18 05/11/18 16:14 23:24 05:00 WBC RBC Hgb Hct MCH RDW Lymph % (Auto) [place] % (Auto) Lymph # Seg Neutrophils % Seg Neuts % (Manual) Lymphocytes % (Manual) Seg Neutrophils # Man Lymphocytes # (Manual) PT INR VBG pH Sodium Potassium Chloride Carbon Dioxide BUN Creatinine 0.2 L Glucose 113 H POC Glucose 119 H 119 H Lactic Acid Calcium Phosphorus Magnesium Total Bilirubin AST Total Protein Albumin Prealbumin Crossmatch 05/11/18 05/11/18 05/11/18 05:57 11:23 16:29 WBC RBC Hgb Hct MCH RDW Lymph % (Auto) [place] % (Auto) Lymph # Seg Neutrophils % Seg Neuts % (Manual) Lymphocytes % (Manual) Seg Neutrophils # Man Lymphocytes # (Manual) PT INR VBG pH Sodium Potassium Chloride Carbon Dioxide BUN Creatinine Glucose POC Glucose 173 H 143 H 159 H Lactic Acid Calcium Phosphorus Magnesium Total Bilirubin AST Total Protein Albumin Prealbumin Crossmatch 05/12/18 05/12/18 05/12/18 00:47 06:23 11:21 WBC RBC Hgb Hct MCH RDW Lymph % (Auto) [place] % (Auto) Lymph # Seg Neutrophils % Seg Neuts % (Manual) Lymphocytes % (Manual) Seg Neutrophils # Man Lymphocytes # (Manual) PT INR VBG pH Sodium Potassium Chloride Carbon Dioxide BUN Creatinine Glucose POC Glucose 139 H 136 H 116 H Lactic Acid Calcium Phosphorus Magnesium Total Bilirubin AST Total Protein Albumin Prealbumin Crossmatch 05/12/18 05/12/18 05/12/18 17:19 17:22 22:22 WBC RBC Hgb Hct MCH RDW Lymph % (Auto) [place] % (Auto) Lymph # Seg Neutrophils % Seg Neuts % (Manual) Lymphocytes % (Manual) Seg Neutrophils # Man Lymphocytes # (Manual) PT INR VBG pH Sodium Potassium Chloride Carbon Dioxide BUN Creatinine Glucose POC Glucose 329 H 116 H 124 H Lactic Acid Calcium Phosphorus Magnesium Total Bilirubin AST Total Protein Albumin Prealbumin Crossmatch 05/13/18 05/13/18 05/13/18 18:35 22:25 Unknown WBC RBC Hgb Hct MCH RDW Lymph % (Auto) [place] % (Auto) Lymph # Seg Neutrophils % Seg Neuts % (Manual) Lymphocytes % (Manual) Seg Neutrophils # Man Lymphocytes # (Manual) PT INR VBG pH Sodium 136 L Potassium Chloride 97.8 L Carbon Dioxide BUN Creatinine 0.2 L Glucose POC Glucose 137 H 106 H Lactic Acid Calcium Phosphorus Magnesium Total Bilirubin AST 41 H Total Protein Albumin 3.5 L Prealbumin Crossmatch 05/14/18 05/14/18 05/14/18 06:40 06:40 12:48 WBC RBC 3.48 L Hgb 9.8 L Hct 29.1 L MCH RDW 15.6 H Lymph % (Auto) [place] % (Auto) Lymph # Seg Neutrophils % Seg Neuts % (Manual) Lymphocytes % (Manual) Seg Neutrophils # Man Lymphocytes # (Manual) PT INR VBG pH Sodium Potassium Chloride Carbon Dioxide BUN Creatinine 0.2 L Glucose POC Glucose 113 H Lactic Acid Calcium 8.1 L Phosphorus Magnesium Total Bilirubin AST Total Protein Albumin Prealbumin Crossmatch 05/14/18 05/14/18 05/15/18 17:52 22:04 05:10 WBC RBC Hgb Hct MCH RDW Lymph % (Auto) [place] % (Auto) Lymph # Seg Neutrophils % Seg Neuts % (Manual) Lymphocytes % (Manual) Seg Neutrophils # Man Lymphocytes # (Manual) PT INR VBG pH Sodium 135 L Potassium Chloride Carbon Dioxide BUN Creatinine 0.2 L Glucose POC Glucose 106 H 107 H Lactic Acid Calcium 8.2 L Phosphorus Magnesium Total Bilirubin AST Total Protein Albumin Prealbumin Crossmatch 05/15/18 05/15/18 05/15/18 06:24 11:31 16:47 WBC RBC Hgb Hct MCH RDW Lymph % (Auto) [place] % (Auto) Lymph # Seg Neutrophils % Seg Neuts % (Manual) Lymphocytes % (Manual) Seg Neutrophils # Man Lymphocytes # (Manual) PT INR VBG pH Sodium Potassium Chloride Carbon Dioxide BUN Creatinine Glucose POC Glucose 125 H 133 H 135 H Lactic Acid Calcium Phosphorus Magnesium Total Bilirubin AST Total Protein Albumin Prealbumin Crossmatch 05/16/18 05/16/1805/16/19 00:13 04:30 05:59 WBC RBC Hgb Hct MCH RDW Lymph % (Auto) [place] % (Auto) Lymph # Seg Neutrophils % Seg Neuts % (Manual) Lymphocytes % (Manual) Seg Neutrophils # Man Lymphocytes # (Manual) PT INR VBG pH Sodium Potassium Chloride Carbon Dioxide BUN Creatinine 0.2 L Glucose POC Glucose 132 H 113 H Lactic Acid Calcium Phosphorus Magnesium Total Bilirubin AST Total Protein Albumin Prealbumin Crossmatch 05/16/18 05/16/18 05/17/18 13:03 18:51 05:06 WBC RBC Hgb Hct MCH RDW Lymph % (Auto) [place] % (Auto) Lymph # Seg Neutrophils % Seg Neuts % (Manual) Lymphocytes % (Manual) Seg Neutrophils # Man Lymphocytes # (Manual) PT INR VBG pH Sodium Potassium Chloride Carbon Dioxide BUN Creatinine Glucose POC Glucose 112 H 111 H 128 H Lactic Acid Calcium Phosphorus Magnesium Total Bilirubin AST Total Protein Albumin Prealbumin Crossmatch 05/17/18 05/17/18 05/18/18 06:07 23:54 07:05 WBC RBC Hgb Hct MCH RDW Lymph % (Auto) [place] % (Auto) Lymph # Seg Neutrophils % Seg Neuts % (Manual) Lymphocytes % (Manual) Seg Neutrophils # Man Lymphocytes # (Manual) PT INR VBG pH Sodium 135 L Potassium Chloride Carbon Dioxide BUN Creatinine 0.2 L Glucose 133 H POC Glucose 120 H 119 H Lactic Acid Calcium Phosphorus Magnesium Total Bilirubin AST Total Protein Albumin Prealbumin Crossmatch 05/18/18 05/18/18 05/18/18 07:43 11:29 16:29 WBC RBC Hgb Hct MCH RDW Lymph % (Auto) [place] % (Auto) Lymph # Seg Neutrophils % Seg Neuts % (Manual) Lymphocytes % (Manual) Seg Neutrophils # Man Lymphocytes # (Manual) PT INR VBG pH Sodium Potassium Chloride Carbon Dioxide BUN Creatinine 0.2 L Glucose 117 H POC Glucose 149 H 108 H Lactic Acid Calcium 8.2 L Phosphorus Magnesium Total Bilirubin AST Total Protein Albumin Prealbumin Crossmatch 05/19/18 05/19/18 05/20/18 23:15 Unknown 05:59 WBC RBC Hgb Hct MCH RDW Lymph % (Auto) [place] % (Auto) Lymph # Seg Neutrophils % Seg Neuts % (Manual) Lymphocytes % (Manual) Seg Neutrophils # Man Lymphocytes # (Manual) PT INR VBG pH Sodium 136 L Potassium Chloride Carbon Dioxide BUN Creatinine 0.2 L Glucose POC Glucose 106 H 114 H Lactic Acid Calcium Phosphorus 4.60 H D Magnesium Total Bilirubin AST Total Protein Albumin Prealbumin Crossmatch 05/20/18 05/20/18 05/20/18 06:25 17:52 23:59 WBC RBC Hgb Hct MCH RDW Lymph % (Auto) [place] % (Auto) Lymph # Seg Neutrophils % Seg Neuts % (Manual) Lymphocytes % (Manual) Seg Neutrophils # Man Lymphocytes # (Manual) PT INR VBG pH Sodium 135 L Potassium Chloride Carbon Dioxide BUN Creatinine 0.2 L Glucose 108 H POC Glucose 118 H 186 H Lactic Acid Calcium 8.3 L Phosphorus Magnesium Total Bilirubin AST Total Protein 5.6 L Albumin 2.9 L Prealbumin 0.113 L Crossmatch 05/21/18 05/21/18 05/21/18 04:40 06:36 07:20 WBC RBC 3.40 L Hgb 9.2 L Hct 28.0 L MCH 27 L RDW 16.2 H Lymph % (Auto) [place] % (Auto) 10.3 H Lymph # Seg Neutrophils % Seg Neuts % (Manual) Lymphocytes % (Manual) Seg Neutrophils # Man Lymphocytes # (Manual) PT INR VBG pH Sodium 135 L Potassium Chloride Carbon Dioxide BUN Creatinine < 0.2 L Glucose POC Glucose 138 H Lactic Acid Calcium 8.2 L Phosphorus Magnesium Total Bilirubin AST Total Protein Albumin Prealbumin Crossmatch 05/21/18 05/21/18 05/22/18 11:12 18:17 00:10 WBC RBC Hgb Hct MCH RDW Lymph % (Auto) [place] % (Auto) Lymph # Seg Neutrophils % Seg Neuts % (Manual) Lymphocytes % (Manual) Seg Neutrophils # Man Lymphocytes # (Manual) PT INR VBG pH Sodium Potassium Chloride Carbon Dioxide BUN Creatinine Glucose POC Glucose 137 H 134 H 127 H Lactic Acid Calcium Phosphorus Magnesium Total Bilirubin AST Total Protein Albumin Prealbumin Crossmatch 05/22/18 05/22/18 05/22/18 05:33 05:35 11:31 WBC RBC Hgb Hct MCH RDW Lymph % (Auto) [place] % (Auto) Lymph # Seg Neutrophils % Seg Neuts % (Manual) Lymphocytes % (Manual) Seg Neutrophils # Man Lymphocytes # (Manual) PT INR VBG pH Sodium Potassium Chloride Carbon Dioxide BUN Creatinine 0.2 L Glucose 115 H POC Glucose 135 H 171 H Lactic Acid Calcium 8.3 L Phosphorus Magnesium Total Bilirubin AST Total Protein Albumin Prealbumin Crossmatch 05/23/18 05/23/18 05/23/18 00:29 05:25 11:30 WBC RBC Hgb Hct MCH RDW Lymph % (Auto) [place] % (Auto) Lymph # Seg Neutrophils % Seg Neuts % (Manual) Lymphocytes % (Manual) Seg Neutrophils # Man Lymphocytes # (Manual) PT INR VBG pH Sodium 135 L Potassium Chloride Carbon Dioxide BUN Creatinine 0.2 L Glucose 113 H POC Glucose 157 H 141 H Lactic Acid Calcium 8.2 L Phosphorus Magnesium Total Bilirubin AST Total Protein Albumin Prealbumin Crossmatch 05/24/18 05/24/18 05/24/18 05:40 11:26 17:26 WBC RBC Hgb Hct MCH RDW Lymph % (Auto) [place] % (Auto) Lymph # Seg Neutrophils % Seg Neuts % (Manual) Lymphocytes % (Manual) Seg Neutrophils # Man Lymphocytes # (Manual) PT INR VBG pH Sodium 133 L Potassium Chloride 97.7 L Carbon Dioxide BUN Creatinine 0.2 L Glucose POC Glucose 120 H 113 H Lactic Acid Calcium 8.1 L Phosphorus Magnesium Total Bilirubin AST Total Protein Albumin Prealbumin Crossmatch 05/25/18 05/25/18 05/25/18 05:00 18:30 22:32 WBC RBC Hgb Hct MCH RDW Lymph % (Auto) [place] % (Auto) Lymph # Seg Neutrophils % Seg Neuts % (Manual) Lymphocytes % (Manual) Seg Neutrophils # Man Lymphocytes # (Manual) PT INR VBG pH Sodium 134 L Potassium Chloride 97.2 L Carbon Dioxide BUN Creatinine 0.2 L Glucose POC Glucose 111 H 112 H Lactic Acid Calcium Phosphorus Magnesium Total Bilirubin AST Total Protein Albumin Prealbumin Crossmatch 05/26/18 05/26/18 05/27/18 06:15 12:03 01:31 WBC RBC Hgb Hct MCH RDW Lymph % (Auto) [place] % (Auto) Lymph # Seg Neutrophils % Seg Neuts % (Manual) Lymphocytes % (Manual) Seg Neutrophils # Man Lymphocytes # (Manual) PT INR VBG pH Sodium 136 L Potassium Chloride Carbon Dioxide BUN Creatinine 0.3 L Glucose POC Glucose 121 H 115 H Lactic Acid Calcium Phosphorus Magnesium Total Bilirubin AST Total Protein Albumin Prealbumin Crossmatch 05/27/18 05/27/18 05/27/18 05:27 05:27 06:26 WBC RBC 3.28 L Hgb 8.7 L Hct 26.5 L MCH 27 L RDW 16.3 H Lymph % (Auto) [place] % (Auto) 9.1 H Lymph # Seg Neutrophils % Seg Neuts % (Manual) Lymphocytes % (Manual) Seg Neutrophils # Man Lymphocytes # (Manual) PT INR VBG pH Sodium 134 L Potassium Chloride Carbon Dioxide BUN Creatinine 0.2 L Glucose 106 H POC Glucose 124 H Lactic Acid Calcium 8.2 L Phosphorus Magnesium Total Bilirubin AST Total Protein Albumin Prealbumin Crossmatch 05/27/18 05/27/18 05/28/18 11:46 17:41 05:30 WBC RBC Hgb Hct MCH RDW Lymph % (Auto) [place] % (Auto) Lymph # Seg Neutrophils % Seg Neuts % (Manual) Lymphocytes % (Manual) Seg Neutrophils # Man Lymphocytes # (Manual) PT INR VBG pH Sodium 135 L Potassium Chloride Carbon Dioxide BUN Creatinine 0.2 L Glucose 102 H POC Glucose 115 H 113 H Lactic Acid Calcium 8.2 L Phosphorus Magnesium Total Bilirubin AST Total Protein Albumin Prealbumin Crossmatch 05/28/18 05/28/18 05/28/18 05:44 13:09 17:01 WBC RBC Hgb Hct MCH RDW Lymph % (Auto) [place] % (Auto) Lymph # Seg Neutrophils % Seg Neuts % (Manual) Lymphocytes % (Manual) Seg Neutrophils # Man Lymphocytes # (Manual) PT INR VBG pH Sodium Potassium Chloride Carbon Dioxide BUN Creatinine Glucose POC Glucose 107 H 134 H 122 H Lactic Acid Calcium Phosphorus Magnesium Total Bilirubin AST Total Protein Albumin Prealbumin Crossmatch 05/28/18 05/29/18 05/29/18 23:57 05:05 05:40 WBC RBC Hgb Hct MCH RDW Lymph % (Auto) [place] % (Auto) Lymph # Seg Neutrophils % Seg Neuts % (Manual) Lymphocytes % (Manual) Seg Neutrophils # Man Lymphocytes # (Manual) PT INR VBG pH Sodium Potassium 3.5 L Chloride Carbon Dioxide 21 L BUN Creatinine < 0.2 L Glucose 114 H POC Glucose 111 H 114 H Lactic Acid Calcium 8.0 L Phosphorus 2.20 L D Magnesium Total Bilirubin AST Total Protein Albumin Prealbumin Crossmatch 05/29/18 05/29/18 11:14 11:31 WBC 3.8 L RBC 3.39 L Hgb 8.9 L Hct 27.7 L MCH 26 L RDW 16.1 H Lymph % (Auto) [place] % (Auto) 12.7 H Lymph # 0.8 L Seg Neutrophils % Seg Neuts % (Manual) Lymphocytes % (Manual) Seg Neutrophils # Man Lymphocytes # (Manual) PT INR VBG pH Sodium Potassium Chloride Carbon Dioxide BUN Creatinine Glucose POC Glucose 178 H Lactic Acid Calcium Phosphorus Magnesium Total Bilirubin AST Total Protein Albumin Prealbumin Crossmatch Allied health notes reviewed: nursing
[2018-05-29] MEDS ORDERED: TPN ADULT 1,800 ML IV SCH (20:00)
[2018-05-29] MEDS ORDERED: INTRALIPID 20% 250 ML IV SCH (20:00)
[2018-05-29] MEDS: REMERON PO SCH (21:00)
[2018-05-30] MEDS: DILAUDID IV PRN ×5 (04:21→21:07)
[2018-05-30 05:37] LABS: Alanine Aminotransferase 47 units/L (7-56); Albumin 2.5 g/dL (3.9-5); BUN/Creatinine Ratio 60; Blood Urea Nitrogen 12 mg/dL (7-17); Calcium 8.1 mg/dL (8.4-10.2); Hemolysis Index 12
[2018-05-30] MEDS: COZAAR PO SCH ×2 (07:48→10:00)
[2018-05-30] MEDS: NEURONTIN PO SCH ×3 (07:48→21:01)
[2018-05-30] MEDS: LOPRESSOR PO SCH ×3 (07:49→21:01)
[2018-05-30] MEDS: BROVANA NEBU IH SCH ×2 (08:34→21:26)
[2018-05-30] MEDS: PULMICORT IH SCH ×2 (08:34→21:25)
--- NOTE | 2018-05-30 09:46 | Progress Note ---
Assessment and Plan Pt feeling better today. 50 cc drainage over last 12 hrs Abd soft, non tender Spoke with Dr. Malik in [facility]. Recommends to wait another 2 wks prior to contempating re-exploration Dr. Malik willing to take over care at that time for re-exploration if needed. If pt is sent home on home TPN, Dr. Malik will see pt in office as outpt. Continue present care Selected Entries 05/30/18 05/30/18 05/30/18 07:15 07:49 08:44 Temperature 99.5 F Pulse Rate [ 87 Anterior Bilateral Throughout] Respiratory 20 Rate [Anterior Bilateral Throughout] Blood Pressure 131/74 Laboratory Tests 05/29/18 11:14 WBC 3.8 L Hgb 8.9 L Hct 27.7 L Objective Vital Signs - 12hr 05/29/18 05/29/18 05/29/18 22:19 22:29 23:42 Temperature 98.7 F Pulse Rate 91 H Pulse Rate [ Anterior Bilateral Throughout] Pulse Rate [ 85 89 Throughout] Respiratory 18 Rate Respiratory Rate [Anterior Bilateral Throughout] Respiratory 18 18 Rate [ Throughout] Blood Pressure 137/70 Blood Pressure [Left] O2 Sat by Pulse 97 Oximetry 05/30/18 05/30/18 05/30/18 07:15 07:48 07:49 Temperature 99.5 F Pulse Rate 98 H 98 H 98 H Pulse Rate [ Anterior Bilateral Throughout] Pulse Rate [ Throughout] Respiratory 18 Rate Respiratory Rate [Anterior Bilateral Throughout] Respiratory Rate [ Throughout] Blood Pressure 131/74 131/74 Blood Pressure 131/74 [Left] O2 Sat by Pulse Oximetry 05/30/18 05/30/18 08:34 08:44 Temperature Pulse Rate Pulse Rate [ 89 87 Anterior Bilateral Throughout] Pulse Rate [ Throughout] Respiratory Rate Respiratory 18 20 Rate [Anterior Bilateral Throughout] Respiratory Rate [ Throughout] Blood Pressure Blood Pressure [Left] O2 Sat by Pulse Oximetry - Labs 05/29/18 11:14 05/30/18 04:40 Diabetes panel 05/30/18 Range/Units 04:40 Sodium 140 (137-145) mmol/L Potassium 3.7 (3.6-5.0) mmol/L Chloride 107.5 H (98-107) mmol/L Carbon Dioxide 21 L (22-30) mmol/L BUN 12 (7-17) mg/dL Creatinine 0.2 L (0.7-1.2) mg/dL Glucose 94 (65-100) mg/dL Calcium 8.1 L (8.4-10.2) mg/dL AST 48 H (5-40) units/L ALT 47 (7-56) units/L Alkaline Phosphatase 96 (35-129) units/L Total Protein 5.3 L (6.3-8.2) g/dL Albumin 2.5 L (3.9-5) g/dL Calcium panel 05/30/18 Range/Units 04:40 Calcium 8.1 L (8.4-10.2) mg/dL Phosphorus 2.60 (2.5-4.5) mg/dL Albumin 2.5 L (3.9-5) g/dL Pituitary panel 05/30/18 Range/Units 04:40 Sodium 140 (137-145) mmol/L Potassium 3.7 (3.6-5.0) mmol/L Chloride 107.5 H (98-107) mmol/L Carbon Dioxide 21 L (22-30) mmol/L BUN 12 (7-17) mg/dL Creatinine 0.2 L (0.7-1.2) mg/dL Glucose 94 (65-100) mg/dL Calcium 8.1 L (8.4-10.2) mg/dL Adrenal panel 05/30/18 Range/Units 04:40 Sodium 140 (137-145) mmol/L Potassium 3.7 (3.6-5.0) mmol/L Chloride 107.5 H (98-107) mmol/L Carbon Dioxide 21 L (22-30) mmol/L BUN 12 (7-17) mg/dL Creatinine 0.2 L (0.7-1.2) mg/dL Glucose 94 (65-100) mg/dL Calcium 8.1 L (8.4-10.2) mg/dL Total Bilirubin 0.30 (0.1-1.2) mg/dL AST 48 H (5-40) units/L ALT 47 (7-56) units/L Alkaline Phosphatase 96 (35-129) units/L Total Protein 5.3 L (6.3-8.2) g/dL Albumin 2.5 L (3.9-5) g/dL
--- NOTE | 2018-05-30 12:07 | Progress Note ---
Assessment and Plan /Sepsis Etiology secondary to gangrenous and perforated appendix causing intra- abdominal/pelvic abscess. Patient is status post exploratory laparotomy with appendectomy and evacuation of pelvic abscess. Now off antibiotics and noted ID signed off. No fever off antibiotics. /Perforated appendix s/p exploratory lap Cont. TPN, started on clear liquid diet which increased drainage, suspicion for non healing perforation s/p repeat CT abdomen/pelvis on 05/25/18 recommended transfer to tertiary center - reference sent for [place], but they have no bed /Chronic hep C. Untreated. Outpatient follow-up. /Accel Hypertension. continue Cozaar to 100mg. Cont. Hydralazine prn. /Diarrhea: s/p lmodium prn x 1 /Tachycardia: secondary to dehydration and deconditioning. Fluids to be given and also started Low dose BB. /COPD. Compensated. nebs as needed /Neurofibromatosis: outpt follow up /Tobacco abuse. Patient counseled on smoking cessation FOR 15 MINS, Patient verbalized understanding and will think about it. /Severe protein calorie malnutrition; chemical compounder helper consulted. continue with TPN and advance diet as tolerated to wean off TPN /Hypotension-resolved BP better, Disposition - when cleared by surgery Brief history: The patient is a 57-year-old female with hypertension, neurofibromatosis, hepatitis C, COPD, nicotine dependence presented to the emergency room on 04/18/18 with complaints of abdominal pain going on for [address] scan obtained in the emergency room revealed a ruptured appendix with associated intra-abdominal abscess. General surgery was consulted and the patient underwent an emergent exploratory laparotomy with evacuation of pelvic abscess. She was noted to have a gangrenous, perforated appendix eroding including into the small bowel. As per the op note, the abscess could not be drained as the entire abscess and inflammatory process had trapped the small bowel, which was mobilized and she underwent an ileocolic anastomosis. The patient went back to the OR on 04/25/18 for drain dislodgment. * Continue local wound care and TPN * Surgical culture grew Ecoli and ester, completed treatment * CT abdomen: 05/18/18- Still shows minimal drainage, per surgery repeat CT of abd & pelvis with PO contrast done 05/25/18 showed no acute change - started on clear liquid but suspicion for non healing perforation, may need terciary center transfer * Urology was consulted for possible entro-vesico fistula due to the color of the urine, cystogram was normal. * Insurance denies LTAC, recommends SNF. Both Patient refuses SNF Hospitalist Physical VITAL SIGNS: Reviewed. GENERAL: The patient appeared well nourished and normally developed. Cachectic. Vital signs as documented. HEAD: No signs of head trauma. marked tempral wasting EYES: Pupils are equal. Extraocular motions intact. EARS: Hearing grossly intact. MOUTH: Oropharynx is normal. NECK: No adenopathy, no JVD. CHEST: Chest with clear breath sounds bilaterally. No wheezes, rales, or rhonchi. CARDIAC: Regular rate and rhythm. S1 and S2, without murmurs, gallops, or rubs. VASCULAR: No Edema. Peripheral pulses normal and equal in all extremities. ABDOMEN: Soft, midly distended, some tenderness. bilateral drain noted. hypoactive BS No rebound or guarding, and no masses palpated. MUSCULOSKELETAL: Good range of motion of all major joints. Extremities without clubbing, cyanosis or edema. NEUROLOGIC EXAM: Alert and oriented x 3. No focal sensory or strength deficits. Speech normal. Follows commands. PSYCHIATRIC: Mood normal. SKIN: neurofibromatosis lesions on face Subjective Date of service: 05/30/18 Principal diagnosis: Sepsis; Ex-lap appendectomy and evacuation of pelvic abscess; Peritonitis Interval history: Patient seen and examined this am with nursing staff. NPO again as had increased drainage after starting clear liquid patient is resting w/o any acute distress Pending transfer to tertiary center, if cannot go then need to set up HH for senior care TPN Objective - Constitutional Vitals: Vital Signs - 12hr 05/30/18 05/30/18 05/30/18 07:15 07:48 07:49 Temperature 99.5 F Pulse Rate 98 H 98 H 98 H Pulse Rate [ Anterior Bilateral Throughout] Respiratory 18 Rate Respiratory Rate [Anterior Bilateral Throughout] Blood Pressure 131/74 131/74 Blood Pressure 131/74 [Left] O2 Sat by Pulse Oximetry 05/30/18 05/30/18 05/30/18 08:34 08:44 11:45 Temperature 99.0 F Pulse Rate 89 Pulse Rate [ 89 87 Anterior Bilateral Throughout] Respiratory 18 Rate Respiratory 18 20 Rate [Anterior Bilateral Throughout] Blood Pressure Blood Pressure 141/77 [Left] O2 Sat by Pulse 98 Oximetry - Labs CBC & Chem 7: 05/29/18 11:14 05/30/18 04:40 Labs: Abnormal lab results 05/29/18 05/29/18 05/30/18 Range/Units 18:06 23:54 04:40 Chloride 107.5 H (98-107) mmol/L Carbon Dioxide 21 L (22-30) mmol/L Creatinine 0.2 L (0.7-1.2) mg/dL POC Glucose 115 H 108 H (70-105) Calcium 8.1 L (8.4-10.2) mg/dL AST 48 H (5-40) units/L Total Protein 5.3 L (6.3-8.2) g/dL Albumin 2.5 L (3.9-5) g/dL 05/30/18 05/30/18 Range/Units 05:40 11:53 Chloride (98-107) mmol/L Carbon Dioxide (22-30) mmol/L Creatinine (0.7-1.2) mg/dL POC Glucose 121 H 107 H (70-105) Calcium (8.4-10.2) mg/dL AST (5-40) units/L Total Protein (6.3-8.2) g/dL Albumin (3.9-5) g/dL
[2018-05-30] MEDS: XANAX PO PRN (17:56)
[2018-05-30] MEDS ORDERED: TPN ADULT 1,800 ML IV SCH (20:00)
[2018-05-30] MEDS: ZOFRAN IV PRN (21:00)
[2018-05-30] MEDS: REMERON PO SCH (21:00)
[2018-05-31] MEDS: DILAUDID IV PRN ×6 (01:56→22:45)
[2018-05-31] MEDS: ZOFRAN IV PRN (06:02)
[2018-05-31 07:26] LABS: BUN/Creatinine Ratio 45; Blood Urea Nitrogen 9 mg/dL (7-17); Hemolysis Index 0
[2018-05-31] MEDS: PULMICORT IH SCH (08:51)
[2018-05-31] MEDS: BROVANA NEBU IH SCH (08:51)
[2018-05-31] MEDS: XANAX PO PRN (10:08)
[2018-05-31] MEDS: NEURONTIN PO SCH ×3 (10:08→21:36)
[2018-05-31] MEDS: COZAAR PO SCH (10:09)
[2018-05-31] MEDS: LOPRESSOR PO SCH ×2 (10:09→21:37)
--- NOTE | 2018-05-31 12:56 | Progress Note ---
Assessment and Plan /Sepsis Etiology secondary to gangrenous and perforated appendix causing intra- abdominal/pelvic abscess. Patient is status post exploratory laparotomy with appendectomy and evacuation of pelvic abscess. Now off antibiotics and noted ID signed off. No fever off antibiotics. /Perforated appendix s/p exploratory lap Cont. TPN, started on clear liquid diet which increased drainage, suspicion for non healing perforation s/p repeat CT abdomen/pelvis on 05/25/18 recommended transfer to tertiary center - reference sent for [place], but they have no bed patient still having significant drainage ~ 200cc/day with fecal material- not a safe plan to d/c home unless thats goes down - will defer to surgery /Chronic hep C. Untreated. Outpatient follow-up. /Accel Hypertension. continue Cozaar to 100mg. Cont. Hydralazine prn. /Diarrhea: s/p lmodium prn x 1 /Tachycardia: secondary to dehydration and deconditioning. Fluids to be given and also started Low dose BB. /COPD. Compensated. nebs as needed /Neurofibromatosis: outpt follow up /Tobacco abuse. Patient counseled on smoking cessation FOR 15 MINS, Patient verbalized understanding and will think about it. /Severe protein calorie malnutrition; relief docking master consulted. continue with TPN and advance diet as tolerated to wean off TPN /Hypotension-resolved BP better, Disposition - when cleared by surgery Brief history: The patient is a 57-year-old female with hypertension, neurofibromatosis, hepatitis C, COPD, nicotine dependence presented to the emergency room on 04/18/18 with complaints of abdominal pain going on for [address] scan obtained in the emergency room revealed a ruptured appendix with associated intra-abdominal abscess. General surgery was consulted and the patient underwent an emergent exploratory laparotomy with evacuation of pelvic abscess. She was noted to have a gangrenous, perforated appendix eroding including into the small bowel. As per the op note, the abscess could not be drained as the entire abscess and inflammatory process had trapped the small bowel, which was mobilized and she underwent an ileocolic anastomosis. The patient went back to the OR on 04/25/18 for drain dislodgment. * Continue local wound care and TPN * Surgical culture grew Ecoli and ester, completed treatment * CT abdomen: 05/18/18- Still shows minimal drainage, per surgery repeat CT of abd & pelvis with PO contrast done 05/25/18 showed no acute change - started on clear liquid but suspicion for non healing perforation, may need terciary center transfer * Urology was consulted for possible entro-vesico fistula due to the color of the urine, cystogram was normal. * Insurance denies LTAC, recommends SNF. Both Patient refuses SNF Hospitalist Physical VITAL SIGNS: Reviewed. GENERAL: The patient appeared well nourished and normally developed. Cachect ic. Vital signs as documented. HEAD: No signs of head trauma. marked tempral wasting EYES: Pupils are equal. Extraocular motions intact. EARS: Hearing grossly intact. MOUTH: Oropharynx is normal. NECK: No adenopathy, no JVD. CHEST: Chest with clear breath sounds bilaterally. No wheezes, rales, or rhonchi. CARDIAC: Regular rate and rhythm. S1 and S2, without murmurs, gallops, or rubs. VASCULAR: No Edema. Peripheral pulses normal and equal in all extremities. ABDOMEN: Soft, midly distended, some tenderness. bilateral drain noted. hypoactive BS No rebound or guarding, and no masses palpated. MUSCULOSKELETAL: Good range of motion of all major joints. Extremities without clubbing, cyanosis or edema. NEUROLOGIC EXAM: Alert and oriented x 3. No focal sensory or strength deficits. Speech normal. Follows commands. PSYCHIATRIC: Mood normal. SKIN: neurofibromatosis lesions on face Subjective Date of service: 05/31/18 Principal diagnosis: Sepsis; Ex-lap appendectomy and evacuation of pelvic abscess; Peritonitis Interval history: Patient seen and examined this am with nursing staff. NPO again as had increased drainage after starting clear liquid patient is resting w/o any acute distress Pending transfer to tertiary center, if cannot go then need to set up HH for assisted TPN Objective - Constitutional Vitals: Vital Signs - 12hr 05/31/18 05/31/18 05/31/18 04:45 07:53 08:00 Temperature 98.7 F 98.1 F Pulse Rate 92 H 94 H 95 H Pulse Rate [ Throughout] Respiratory 18 18 Rate Respiratory Rate [ Throughout] Blood Pressure 138/77 Blood Pressure 133/74 [Left] O2 Sat by Pulse 96 96 Oximetry 05/31/18 05/31/18 05/31/18 08:55 09:10 10:09 Temperature Pulse Rate 95 H Pulse Rate [ 90 84 Throughout] Respiratory Rate Respiratory 16 16 Rate [ Throughout] Blood Pressure 133/76 Blood Pressure [Left] O2 Sat by Pulse Oximetry - Labs CBC & Chem 7: 05/29/18 11:14 05/31/18 06:00 Labs: Abnormal lab results 05/31/18 05/31/18 05/31/18 Range/Units 00:28 06:00 06:14 Creatinine 0.2 L (0.7-1.2) mg/dL POC Glucose 111 H 106 H (70-105) Calcium 8.0 L (8.4-10.2) mg/dL
--- NOTE | 2018-05-31 13:05 | Progress Note ---
Assessment and Plan Pt status quo. no significant compl. however increased drainage of 200 cc noted. Abd soft. minimal tenderness around drain site stable in lieu of increased drainage, do not recommend that pt be considered for home care at this time. Best to continue monitoring pt in hospital. plan is to refer pt to Dr. Malik in the next 2 weeks. continue present care Selected Entries 05/31/18 08:00 Temperature 98.1 F Pulse Rate 95 H Respiratory 18 Rate Blood Pressure 133/74 [Left] Objective Vital Signs - 12hr 05/31/18 05/31/18 05/31/18 04:45 07:53 08:00 Temperature 98.7 F 98.1 F Pulse Rate 92 H 94 H 95 H Pulse Rate [ Throughout] Respiratory 18 18 Rate Respiratory Rate [ Throughout] Blood Pressure 138/77 Blood Pressure 133/74 [Left] O2 Sat by Pulse 96 96 Oximetry 05/31/18 05/31/18 05/31/18 08:55 09:10 10:09 Temperature Pulse Rate 95 H Pulse Rate [ 90 84 Throughout] Respiratory Rate Respiratory 16 16 Rate [ Throughout] Blood Pressure 133/76 Blood Pressure [Left] O2 Sat by Pulse Oximetry - Labs 05/29/18 11:14 05/31/18 06:00 Diabetes panel 05/31/18 Range/Units 06:00 Sodium 137 (137-145) mmol/L Potassium 4.2 (3.6-5.0) mmol/L Chloride 104.3 (98-107) mmol/L Carbon Dioxide 24 (22-30) mmol/L BUN 9 (7-17) mg/dL Creatinine 0.2 L (0.7-1.2) mg/dL Glucose 94 (65-100) mg/dL Calcium 8.0 L (8.4-10.2) mg/dL Calcium panel 05/31/18 Range/Units 06:00 Calcium 8.0 L (8.4-10.2) mg/dL Phosphorus 2.90 (2.5-4.5) mg/dL Pituitary panel 05/31/18 Range/Units 06:00 Sodium 137 (137-145) mmol/L Potassium 4.2 (3.6-5.0) mmol/L Chloride 104.3 (98-107) mmol/L Carbon Dioxide 24 (22-30) mmol/L BUN 9 (7-17) mg/dL Creatinine 0.2 L (0.7-1.2) mg/dL Glucose 94 (65-100) mg/dL Calcium 8.0 L (8.4-10.2) mg/dL Adrenal panel 05/31/18 Range/Units 06:00 Sodium 137 (137-145) mmol/L Potassium 4.2 (3.6-5.0) mmol/L Chloride 104.3 (98-107) mmol/L Carbon Dioxide 24 (22-30) mmol/L BUN 9 (7-17) mg/dL Creatinine 0.2 L (0.7-1.2) mg/dL Glucose 94 (65-100) mg/dL Calcium 8.0 L (8.4-10.2) mg/dL
[2018-05-31] MEDS ORDERED: TPN ADULT 1,800 ML IV SCH (20:00)
[2018-05-31] MEDS: REMERON PO SCH (21:36)
[2018-06-01 05:01] LABS: BUN/Creatinine Ratio 50; Blood Urea Nitrogen 10 mg/dL (7-17); Hemolysis Index 4
[2018-06-01] MEDS: NEURONTIN PO SCH ×3 (07:32→21:25)
[2018-06-01] MEDS: DILAUDID IV PRN ×4 (07:33→21:26)
[2018-06-01] MEDS: PULMICORT IH SCH ×2 (08:52→20:15)
[2018-06-01] MEDS: BROVANA NEBU IH SCH ×2 (08:52→20:15)
[2018-06-01] MEDS: COZAAR PO SCH (09:47)
[2018-06-01] MEDS: LOPRESSOR PO SCH ×2 (09:48→21:28)
[2018-06-01] MEDS: XANAX PO PRN (09:48)
[2018-06-01] MEDS: DURAGESIC TD SCH (12:28)
--- NOTE | 2018-06-01 13:07 | Progress Note ---
Assessment and Plan Pt status quo. 200 cc drainage. Abd - non tender stable continue present care Objective Vital Signs - 12hr 06/01/18 06/01/18 06/01/18 04:51 07:22 08:52 Temperature 98.6 F 98.2 F Pulse Rate 94 H 92 H Pulse Rate [ 92 H Throughout] Respiratory 18 18 Rate Respiratory 18 Rate [ Throughout] Blood Pressure 132/75 130/83 O2 Sat by Pulse 98 96 Oximetry 06/01/18 06/01/18 06/01/18 09:18 09:47 09:48 Temperature Pulse Rate 92 H 92 H Pulse Rate [ 89 Throughout] Respiratory Rate Respiratory 20 Rate [ Throughout] Blood Pressure 130/83 130/83 O2 Sat by Pulse Oximetry 06/01/18 11:20 Temperature 98.0 F Pulse Rate 81 Pulse Rate [ Throughout] Respiratory 18 Rate Respiratory Rate [ Throughout] Blood Pressure 148/79 O2 Sat by Pulse 97 Oximetry - Labs 05/29/18 11:14 06/01/18 04:02 Diabetes panel 06/01/18 Range/Units 04:02 Sodium 135 L (137-145) mmol/L Potassium 4.4 (3.6-5.0) mmol/L Chloride 102.2 (98-107) mmol/L Carbon Dioxide 26 (22-30) mmol/L BUN 10 (7-17) mg/dL Creatinine 0.2 L (0.7-1.2) mg/dL Glucose 115 H (65-100) mg/dL Calcium 8.0 L (8.4-10.2) mg/dL Calcium panel 06/01/18 Range/Units 04:02 Calcium 8.0 L (8.4-10.2) mg/dL Pituitary panel 06/01/18 Range/Units 04:02 Sodium 135 L (137-145) mmol/L Potassium 4.4 (3.6-5.0) mmol/L Chloride 102.2 (98-107) mmol/L Carbon Dioxide 26 (22-30) mmol/L BUN 10 (7-17) mg/dL Creatinine 0.2 L (0.7-1.2) mg/dL Glucose 115 H (65-100) mg/dL Calcium 8.0 L (8.4-10.2) mg/dL Adrenal panel 06/01/18 Range/Units 04:02 Sodium 135 L (137-145) mmol/L Potassium 4.4 (3.6-5.0) mmol/L Chloride 102.2 (98-107) mmol/L Carbon Dioxide 26 (22-30) mmol/L BUN 10 (7-17) mg/dL Creatinine 0.2 L (0.7-1.2) mg/dL Glucose 115 H (65-100) mg/dL Calcium 8.0 L (8.4-10.2) mg/dL
--- NOTE | 2018-06-01 13:22 | Progress Note ---
Assessment and Plan Sepsis. Etiology secondary to gangrenous and perforated appendix causing intra- abdominal/pelvic abscess. status post exploratory laparotomy with appendectomy and evacuation of pelvic abscess. Intrabdominal sepsis/peritonitis Ruptured appendix with abdominal abscess Acute Hypoxemic Respiratory Failure (Resolved) Tobacco abuse disorder COPD Neurofibromatosis - repeat CXR in am - continue prn supplemental oxygen to keep O2 sats > 90% (especially while asleep) - continue bronchodilators with pulmonary hygiene per RT - continue brovana and pulmicort for chronic COPD - tentatively for transfer to [facility] - continue aspiration precautions - abdominal drain to suction (adjust per surgeon) - s/p antibiotics course - IV fluids per surgeon - VTE prophylaxis - PT/OT/Mobility, OOB to chair daily - continue incentive spirometry - continue nicotine withdrawal precautions - Smoking cessation counselling was done at the bedside again today - Analgesia, pain management - NPO for now, serial abdominal exams ... re-evaluate in am & prn Subjective Date of service: 06/01/18 Principal diagnosis: Sepsis; Ex-lap appendectomy and evacuation of pelvic abscess; Peritonitis Interval history: Patient is seen today for: Sepsis; status post exploratory laparotomy with appendectomy and evacuation of pelvic abscess; Intrabdominal sepsis/peritonitis; Ruptured appendix with abdominal abscess Seen and examined at bedside; 24hour events reviewed; nursing and respiratory care staff consulted; no adverse overnight events reported to me; resting in bed; Objective Vital Signs - 12hr 06/01/18 06/01/18 06/01/18 04:51 07:22 08:52 Temperature 98.6 F 98.2 F Pulse Rate 94 H 92 H Pulse Rate [ 92 H Throughout] Respiratory 18 18 Rate Respiratory 18 Rate [ Throughout] Blood Pressure 132/75 130/83 O2 Sat by Pulse 98 96 Oximetry 06/01/18 06/01/18 06/01/18 09:18 09:47 09:48 Temperature Pulse Rate 92 H 92 H Pulse Rate [ 89 Throughout] Respiratory Rate Respiratory 20 Rate [ Throughout] Blood Pressure 130/83 130/83 O2 Sat by Pulse Oximetry 06/01/18 11:20 Temperature 98.0 F Pulse Rate 81 Pulse Rate [ Throughout] Respiratory 18 Rate Respiratory Rate [ Throughout] Blood Pressure 148/79 O2 Sat by Pulse 97 Oximetry Constitutional: no acute distress, alert, other (chronically ill looking this middle aged CF, normocephalic) Eyes: non-icteric ENT: oropharynx moist, other (Mallampati 2) Neck: supple, no lymphadenopathy, no JVD Effort: mildly labored Ascultation: Bilateral: diminished breath sounds, rhonchi (scant in bases) Percussion: Bilateral: not dull Cardiovascular: regular rate and rhythm Gastrointestinal: normoactive bowel sounds, soft, tender (bhargav-op site), non- distended, other (Drain in place with non-bloody effluent) Integumentary: other (poor turgor; ? neurofibromatous nodules over body) Extremities: no cyanosis, no edema, pink and warm, pulses normal Neurologic: normal mental status, non-focal exam, pupils equal and round, motor strength normal and Psychiatric: mood appropriate, anxious CBC and BMP: 05/29/18 11:14 06/01/18 04:02 ABG, PT/INR, D-dimer: ABG POC ABG pH 7.367 (7.35-7.45) 04/19/18 00:19 POC ABG pCO2 36.8 (35-45) 04/19/18 00:19 POC ABG pO2 84 (80-105) 04/19/18 00:19 POC ABG HCO3 21.1 04/19/18 00:19 POC ABG Total CO2 22 04/19/18 00:19 POC ABG O2 Sat 96 04/19/18 00:19 PT/INR, D-dimer PT 15.3 Sec. (12.2-14.9) H 04/22/18 05:19 INR 1.17 (0.87-1.13) H 04/22/18 05:19 Abnormal lab findings: Abnormal Labs 04/18/18 04/18/18 04/18/18 14:30 14:30 14:30 WBC 18.6 H RBC Hgb Hct MCH RDW Lymph % (Auto) [place] % (Auto) Lymph # Seg Neutrophils % Seg Neuts % (Manual) 79.0 H Lymphocytes % (Manual) 4.0 L Seg Neutrophils # Man 14.7 H Lymphocytes # (Manual) 0.7 L PT 16.3 H INR 1.27 H VBG pH Sodium 121 L Potassium 3.0 L Chloride 78.0 L Carbon Dioxide BUN Creatinine 0.5 L Glucose 110 H POC Glucose Lactic Acid Calcium Phosphorus Magnesium Total Bilirubin 1.30 H AST 42 H Total Protein Albumin 3.1 L Prealbumin Crossmatch 04/18/18 04/18/18 04/18/18 14:30 14:30 23:59 WBC RBC Hgb Hct MCH RDW 15.8 H Lymph % (Auto) [place] % (Auto) Lymph # Seg Neutrophils % Seg Neuts % (Manual) 78.0 H Lymphocytes % (Manual) 6.0 L Seg Neutrophils # Man Lymphocytes # (Manual) 0.5 L PT INR VBG pH 7.439 H Sodium Potassium Chloride Carbon Dioxide BUN Creatinine Glucose POC Glucose Lactic Acid 3.60 H* Calcium Phosphorus Magnesium Total Bilirubin AST Total Protein Albumin Prealbumin Crossmatch 04/18/18 04/19/18 04/19/18 23:59 05:19 05:19 WBC 15.0 H RBC Hgb Hct MCH RDW 15.3 H Lymph % (Auto) [place] % (Auto) Lymph # Seg Neutrophils % Seg Neuts % (Manual) Lymphocytes % (Manual) 5.0 L Seg Neutrophils # Man 8.3 H Lymphocytes # (Manual) 0.8 L PT INR VBG pH Sodium 130 L D 133 L Potassium 3.5 L 3.3 L Chloride Carbon Dioxide 20 L D BUN Creatinine 0.5 L 0.6 L Glucose 140 H 115 H POC Glucose Lactic Acid Calcium 7.5 L 7.4 L Phosphorus Magnesium Total Bilirubin AST Total Protein 4.4 L D 4.1 L Albumin 2.0 L 1.9 L Prealbumin Crossmatch 04/19/18 04/19/18 04/20/18 05:19 13:05 05:18 WBC RBC Hgb Hct MCH RDW Lymph % (Auto) [place] % (Auto) Lymph # Seg Neutrophils % Seg Neuts % (Manual) Lymphocytes % (Manual) Seg Neutrophils # Man Lymphocytes # (Manual) PT 19.4 H 17.4 H INR 1.59 H 1.38 H VBG pH Sodium Potassium Chloride Carbon Dioxide BUN Creatinine Glucose POC Glucose Lactic Acid Calcium Phosphorus Magnesium Total Bilirubin AST Total Protein Albumin Prealbumin Crossmatch See Detail 04/20/18 04/20/18 04/21/18 13:47 13:47 04:52 WBC RBC 3.29 L 3.10 L Hgb 9.6 L 8.8 L Hct 28.1 L D 26.6 L MCH RDW 15.3 H 15.4 H Lymph % (Auto) 5.6 L [place] % (Auto) Lymph # 0.4 L Seg Neutrophils % 87.3 H Seg Neuts % (Manual) Lymphocytes % (Manual) Seg Neutrophils # Man Lymphocytes # (Manual) PT INR VBG pH Sodium Potassium Chloride Carbon Dioxide BUN Creatinine 0.3 L Glucose 102 H POC Glucose Lactic Acid Calcium 8.0 L Phosphorus Magnesium Total Bilirubin AST Total Protein Albumin Prealbumin Crossmatch 04/21/18 04/22/18 04/22/18 04:52 05:19 05:19 WBC RBC 3.64 L Hgb Hct MCH RDW Lymph % (Auto) 8.5 L [place] % (Auto) 9.9 H Lymph # 0.6 L Seg Neutrophils % 81.0 H Seg Neuts % (Manual) Lymphocytes % (Manual) Seg Neutrophils # Man Lymphocytes # (Manual) PT 15.3 H INR 1.17 H VBG pH Sodium Potassium 3.2 L Chloride Carbon Dioxide BUN Creatinine 0.3 L Glucose POC Glucose Lactic Acid Calcium 7.6 L Phosphorus Magnesium Total Bilirubin AST Total Protein Albumin Prealbumin Crossmatch 04/22/18 04/24/18 04/24/18 05:19 07:19 07:19 WBC RBC Hgb Hct MCH RDW Lymph % (Auto) [place] % (Auto) Lymph # Seg Neutrophils % Seg Neuts % (Manual) Lymphocytes % (Manual) Seg Neutrophils # Man Lymphocytes # (Manual) PT INR VBG pH Sodium Potassium 3.4 L 2.9 L* Chloride Carbon Dioxide BUN Creatinine 0.3 L 0.3 L Glucose 103 H POC Glucose Lactic Acid Calcium 7.7 L 7.5 L Phosphorus Magnesium 1.60 L Total Bilirubin AST Total Protein 4.3 L Albumin 2.2 L Prealbumin Crossmatch 04/24/18 04/25/18 04/25/18 07:23 06:28 06:28 WBC RBC Hgb Hct MCH RDW 15.3 H 15.9 H Lymph % (Auto) 10.1 L [place] % (Auto) Lymph # 0.8 L Seg Neutrophils % 80.6 H Seg Neuts % (Manual) Lymphocytes % (Manual) 9.0 L Seg Neutrophils # Man Lymphocytes # (Manual) 0.7 L PT INR VBG pH Sodium Potassium 3.0 L Chloride Carbon Dioxide BUN 5 L Creatinine 0.2 L Glucose 108 H POC Glucose Lactic Acid Calcium 7.4 L Phosphorus Magnesium Total Bilirubin AST Total Protein 4.6 L Albumin 2.5 L Prealbumin Crossmatch 04/25/18 04/26/18 04/26/18 06:28 05:45 05:45 WBC 11.9 H RBC Hgb Hct MCH RDW 16.2 H Lymph % (Auto) [place] % (Auto) Lymph # Seg Neutrophils % Seg Neuts % (Manual) Lymphocytes % (Manual) Seg Neutrophils # Man Lymphocytes # (Manual) PT INR VBG pH Sodium Potassium Chloride Carbon Dioxide BUN 5 L Creatinine 0.2 L Glucose 119 H POC Glucose Lactic Acid Calcium 7.7 L Phosphorus 2.00 L 2.20 L Magnesium Total Bilirubin AST Total Protein Albumin Prealbumin Crossmatch 04/27/18 04/28/18 04/28/18 05:33 06:00 06:00 WBC 11.2 H RBC Hgb Hct MCH RDW 16.0 H Lymph % (Auto) [place] % (Auto) Lymph # Seg Neutrophils % Seg Neuts % (Manual) 92.0 H Lymphocytes % (Manual) 5.0 L Seg Neutrophils # Man 10.3 H Lymphocytes # (Manual) 0.6 L PT INR VBG pH Sodium Potassium 3.4 L 3.1 L Chloride Carbon Dioxide BUN 6 L 4 L Creatinine 0.2 L 0.2 L Glucose 119 H POC Glucose Lactic Acid Calcium 7.5 L 7.1 L Phosphorus 2.00 L 2.10 L Magnesium 1.50 L Total Bilirubin AST Total Protein 4.3 L Albumin 2.1 L Prealbumin Crossmatch 04/29/18 04/29/18 04/29/18 05:18 05:18 17:49 WBC 12.0 H RBC Hgb Hct MCH RDW 16.0 H Lymph % (Auto) [place] % (Auto) Lymph # Seg Neutrophils % Seg Neuts % (Manual) 87.0 H Lymphocytes % (Manual) 10.0 L Seg Neutrophils # Man 10.4 H Lymphocytes # (Manual) PT INR VBG pH Sodium 135 L Potassium Chloride Carbon Dioxide BUN Creatinine 0.2 L Glucose 120 H POC Glucose 108 H Lactic Acid Calcium 7.5 L Phosphorus Magnesium Total Bilirubin AST Total Protein Albumin Prealbumin Crossmatch 04/30/18 04/30/18 04/30/18 00:03 05:18 05:41 WBC RBC Hgb Hct MCH RDW Lymph % (Auto) [place] % (Auto) Lymph # Seg Neutrophils % Seg Neuts % (Manual) Lymphocytes % (Manual) Seg Neutrophils # Man Lymphocytes # (Manual) PT INR VBG pH Sodium 133 L Potassium Chloride Carbon Dioxide BUN Creatinine 0.2 L Glucose 119 H POC Glucose 112 H 110 H Lactic Acid Calcium 7.5 L Phosphorus Magnesium Total Bilirubin AST Total Protein Albumin Prealbumin Crossmatch 04/30/18 05/01/18 05/01/18 05:41 00:39 04:45 WBC RBC 3.60 L Hgb Hct MCH RDW 16.0 H Lymph % (Auto) [place] % (Auto) Lymph # Seg Neutrophils % Seg Neuts % (Manual) 88.0 H Lymphocytes % (Manual) 8.0 L Seg Neutrophils # Man Lymphocytes # (Manual) 0.7 L PT INR VBG pH Sodium 132 L Potassium Chloride Carbon Dioxide BUN Creatinine 0.2 L Glucose 101 H POC Glucose 119 H Lactic Acid Calcium 7.6 L Phosphorus Magnesium Total Bilirubin AST Total Protein Albumin Prealbumin Crossmatch 05/01/18 05/01/18 05/01/18 06:30 16:09 23:42 WBC RBC Hgb Hct MCH RDW Lymph % (Auto) [place] % (Auto) Lymph # Seg Neutrophils % Seg Neuts % (Manual) Lymphocytes % (Manual) Seg Neutrophils # Man Lymphocytes # (Manual) PT INR VBG pH Sodium Potassium Chloride Carbon Dioxide BUN Creatinine Glucose POC Glucose 126 H 160 H 113 H Lactic Acid Calcium Phosphorus Magnesium Total Bilirubin AST Total Protein Albumin Prealbumin Crossmatch 05/02/18 05/02/18 05/02/18 04:55 06:41 11:53 WBC RBC Hgb Hct MCH RDW Lymph % (Auto) [place] % (Auto) Lymph # Seg Neutrophils % Seg Neuts % (Manual) Lymphocytes % (Manual) Seg Neutrophils # Man Lymphocytes # (Manual) PT INR VBG pH Sodium 134 L Potassium Chloride Carbon Dioxide BUN Creatinine 0.2 L Glucose 113 H POC Glucose 146 H 113 H Lactic Acid Calcium 7.4 L Phosphorus Magnesium Total Bilirubin AST Total Protein Albumin Prealbumin Crossmatch 05/02/18 05/02/18 05/03/18 17:33 23:37 08:46 WBC RBC 3.36 L Hgb 9.7 L Hct 28.7 L MCH RDW 16.3 H Lymph % (Auto) [place] % (Auto) 10.0 H Lymph # Seg Neutrophils % Seg Neuts % (Manual) Lymphocytes % (Manual) Seg Neutrophils # Man Lymphocytes # (Manual) PT INR VBG pH Sodium Potassium Chloride Carbon Dioxide BUN Creatinine Glucose POC Glucose 106 H 123 H Lactic Acid Calcium Phosphorus Magnesium Total Bilirubin AST Total Protein Albumin Prealbumin Crossmatch 05/03/18 05/03/18 05/04/18 11:54 12:15 06:59 WBC RBC Hgb Hct MCH RDW Lymph % (Auto) [place] % (Auto) Lymph # Seg Neutrophils % Seg Neuts % (Manual) Lymphocytes % (Manual) Seg Neutrophils # Man Lymphocytes # (Manual) PT INR VBG pH Sodium 136 L Potassium Chloride Carbon Dioxide BUN Creatinine 0.2 L Glucose 131 H POC Glucose 109 H 161 H Lactic Acid Calcium 7.6 L Phosphorus Magnesium Total Bilirubin AST Total Protein Albumin Prealbumin Crossmatch 05/04/18 05/04/18 05/04/18 07:03 08:02 11:10 WBC RBC 3.52 L Hgb Hct 29.8 L MCH RDW 16.2 H Lymph % (Auto) [place] % (Auto) 8.6 H Lymph # Seg Neutrophils % Seg Neuts % (Manual) Lymphocytes % (Manual) Seg Neutrophils # Man Lymphocytes # (Manual) PT INR VBG pH Sodium 135 L Potassium Chloride Carbon Dioxide BUN Creatinine 0.2 L Glucose 160 H POC Glucose 106 H Lactic Acid Calcium 7.7 L Phosphorus Magnesium Total Bilirubin AST Total Protein Albumin Prealbumin Crossmatch 05/04/18 05/05/18 05/05/18 23:38 11:28 16:55 WBC RBC Hgb Hct MCH RDW Lymph % (Auto) [place] % (Auto) Lymph # Seg Neutrophils % Seg Neuts % (Manual) Lymphocytes % (Manual) Seg Neutrophils # Man Lymphocytes # (Manual) PT INR VBG pH Sodium Potassium Chloride Carbon Dioxide BUN Creatinine Glucose POC Glucose 121 H 119 H 108 H Lactic Acid Calcium Phosphorus Magnesium Total Bilirubin AST Total Protein Albumin Prealbumin Crossmatch 05/05/18 05/06/18 05/06/18 Unknown 05:35 16:40 WBC RBC Hgb Hct MCH RDW Lymph % (Auto) [place] % (Auto) Lymph # Seg Neutrophils % Seg Neuts % (Manual) Lymphocytes % (Manual) Seg Neutrophils # Man Lymphocytes # (Manual) PT INR VBG pH Sodium 135 L 136 L Potassium Chloride 97.9 L Carbon Dioxide BUN Creatinine 0.2 L 0.2 L Glucose 119 H POC Glucose 133 H Lactic Acid Calcium 8.0 L 8.1 L Phosphorus Magnesium Total Bilirubin AST 46 H Total Protein 5.5 L Albumin 2.7 L Prealbumin Crossmatch 05/06/18 05/07/18 05/07/18 22:07 05:38 05:40 WBC RBC Hgb Hct MCH RDW Lymph % (Auto) [place] % (Auto) Lymph # Seg Neutrophils % Seg Neuts % (Manual) Lymphocytes % (Manual) Seg Neutrophils # Man Lymphocytes # (Manual) PT INR VBG pH Sodium 133 L Potassium Chloride Carbon Dioxide BUN Creatinine 0.2 L Glucose POC Glucose 168 H 107 H Lactic Acid Calcium 8.2 L Phosphorus Magnesium Total Bilirubin AST Total Protein Albumin Prealbumin Crossmatch 05/07/18 05/07/18 05/08/18 11:56 18:04 05:38 WBC RBC Hgb Hct MCH RDW 16.3 H Lymph % (Auto) [place] % (Auto) 7.7 H Lymph # Seg Neutrophils % Seg Neuts % (Manual) Lymphocytes % (Manual) Seg Neutrophils # Man Lymphocytes # (Manual) PT INR VBG pH Sodium Potassium Chloride Carbon Dioxide BUN Creatinine Glucose POC Glucose 145 H 125 H Lactic Acid Calcium Phosphorus Magnesium Total Bilirubin AST Total Protein Albumin Prealbumin Crossmatch 05/08/18 05/08/18 05/08/18 05:38 11:35 16:23 WBC RBC Hgb Hct MCH RDW Lymph % (Auto) [place] % (Auto) Lymph # Seg Neutrophils % Seg Neuts % (Manual) Lymphocytes % (Manual) Seg Neutrophils # Man Lymphocytes # (Manual) PT INR VBG pH Sodium 135 L Potassium Chloride Carbon Dioxide BUN Creatinine 0.2 L Glucose POC Glucose 118 H 131 H Lactic Acid Calcium Phosphorus Magnesium Total Bilirubin AST Total Protein Albumin Prealbumin Crossmatch 05/08/18 05/09/18 05/09/18 21:40 05:46 06:15 WBC RBC Hgb Hct MCH RDW Lymph % (Auto) [place] % (Auto) Lymph # Seg Neutrophils % Seg Neuts % (Manual) Lymphocytes % (Manual) Seg Neutrophils # Man Lymphocytes # (Manual) PT INR VBG pH Sodium 135 L Potassium Chloride 97.5 L Carbon Dioxide BUN Creatinine 0.2 L Glucose POC Glucose 110 H 115 H Lactic Acid Calcium Phosphorus Magnesium Total Bilirubin AST Total Protein Albumin Prealbumin Crossmatch 05/09/18 05/09/18 05/10/18 11:28 23:53 06:22 WBC RBC Hgb Hct MCH RDW Lymph % (Auto) [place] % (Auto) Lymph # Seg Neutrophils % Seg Neuts % (Manual) Lymphocytes % (Manual) Seg Neutrophils # Man Lymphocytes # (Manual) PT INR VBG pH Sodium Potassium Chloride Carbon Dioxide BUN Creatinine Glucose POC Glucose 145 H 132 H 149 H Lactic Acid Calcium Phosphorus Magnesium Total Bilirubin AST Total Protein Albumin Prealbumin Crossmatch 05/10/18 05/10/18 05/11/18 16:14 23:24 05:00 WBC RBC Hgb Hct MCH RDW Lymph % (Auto) [place] % (Auto) Lymph # Seg Neutrophils % Seg Neuts % (Manual) Lymphocytes % (Manual) Seg Neutrophils # Man Lymphocytes # (Manual) PT INR VBG pH Sodium Potassium Chloride Carbon Dioxide BUN Creatinine 0.2 L Glucose 113 H POC Glucose 119 H 119 H Lactic Acid Calcium Phosphorus Magnesium Total Bilirubin AST Total Protein Albumin Prealbumin Crossmatch 05/11/18 05/11/18 05/11/18 05:57 11:23 16:29 WBC RBC Hgb Hct MCH RDW Lymph % (Auto) [place] % (Auto) Lymph # Seg Neutrophils % Seg Neuts % (Manual) Lymphocytes % (Manual) Seg Neutrophils # Man Lymphocytes # (Manual) PT INR VBG pH Sodium Potassium Chloride Carbon Dioxide BUN Creatinine Glucose POC Glucose 173 H 143 H 159 H Lactic Acid Calcium Phosphorus Magnesium Total Bilirubin AST Total Protein Albumin Prealbumin Crossmatch 05/12/18 05/12/18 05/12/18 00:47 06:23 11:21 WBC RBC Hgb Hct MCH RDW Lymph % (Auto) [place] % (Auto) Lymph # Seg Neutrophils % Seg Neuts % (Manual) Lymphocytes % (Manual) Seg Neutrophils # Man Lymphocytes # (Manual) PT INR VBG pH Sodium Potassium Chloride Carbon Dioxide BUN Creatinine Glucose POC Glucose 139 H 136 H 116 H Lactic Acid Calcium Phosphorus Magnesium Total Bilirubin AST Total Protein Albumin Prealbumin Crossmatch 05/12/18 05/12/18 05/12/18 17:19 17:22 22:22 WBC RBC Hgb Hct MCH RDW Lymph % (Auto) [place] % (Auto) Lymph # Seg Neutrophils % Seg Neuts % (Manual) Lymphocytes % (Manual) Seg Neutrophils # Man Lymphocytes # (Manual) PT INR VBG pH Sodium Potassium Chloride Carbon Dioxide BUN Creatinine Glucose POC Glucose 329 H 116 H 124 H Lactic Acid Calcium Phosphorus Magnesium Total Bilirubin AST Total Protein Albumin Prealbumin Crossmatch 05/13/18 05/13/18 05/13/18 18:35 22:25 Unknown WBC RBC Hgb Hct MCH RDW Lymph % (Auto) [place] % (Auto) Lymph # Seg Neutrophils % Seg Neuts % (Manual) Lymphocytes % (Manual) Seg Neutrophils # Man Lymphocytes # (Manual) PT INR VBG pH Sodium 136 L Potassium Chloride 97.8 L Carbon Dioxide BUN Creatinine 0.2 L Glucose POC Glucose 137 H 106 H Lactic Acid Calcium Phosphorus Magnesium Total Bilirubin AST 41 H Total Protein Albumin 3.5 L Prealbumin Crossmatch 05/14/18 05/14/18 05/14/18 06:40 06:40 12:48 WBC RBC 3.48 L Hgb 9.8 L Hct 29.1 L MCH RDW 15.6 H Lymph % (Auto) [place] % (Auto) Lymph # Seg Neutrophils % Seg Neuts % (Manual) Lymphocytes % (Manual) Seg Neutrophils # Man Lymphocytes # (Manual) PT INR VBG pH Sodium Potassium Chloride Carbon Dioxide BUN Creatinine 0.2 L Glucose POC Glucose 113 H Lactic Acid Calcium 8.1 L Phosphorus Magnesium Total Bilirubin AST Total Protein Albumin Prealbumin Crossmatch 05/14/18 05/14/18 05/15/18 17:52 22:04 05:10 WBC RBC Hgb Hct MCH RDW Lymph % (Auto) [place] % (Auto) Lymph # Seg Neutrophils % Seg Neuts % (Manual) Lymphocytes % (Manual) Seg Neutrophils # Man Lymphocytes # (Manual) PT INR VBG pH Sodium 135 L Potassium Chloride Carbon Dioxide BUN Creatinine 0.2 L Glucose POC Glucose 106 H 107 H Lactic Acid Calcium 8.2 L Phosphorus Magnesium Total Bilirubin AST Total Protein Albumin Prealbumin Crossmatch 05/15/18 05/15/18 05/15/18 06:24 11:31 16:47 WBC RBC Hgb Hct MCH RDW Lymph % (Auto) [place] % (Auto) Lymph # Seg Neutrophils % Seg Neuts % (Manual) Lymphocytes % (Manual) Seg Neutrophils # Man Lymphocytes # (Manual) PT INR VBG pH Sodium Potassium Chloride Carbon Dioxide BUN Creatinine Glucose POC Glucose 125 H 133 H 135 H Lactic Acid Calcium Phosphorus Magnesium Total Bilirubin AST Total Protein Albumin Prealbumin Crossmatch 05/16/18 05/16/18 05/16/18 00:13 04:30 05:59 WBC RBC Hgb Hct MCH RDW Lymph % (Auto) [place] % (Auto) Lymph # Seg Neutrophils % Seg Neuts % (Manual) Lymphocytes % (Manual) Seg Neutrophils # Man Lymphocytes # (Manual) PT INR VBG pH Sodium Potassium Chloride Carbon Dioxide BUN Creatinine 0.2 L Glucose POC Glucose 132 H 113 H Lactic Acid Calcium Phosphorus Magnesium Total Bilirubin AST Total Protein Albumin Prealbumin Crossmatch 05/16/18 05/16/18 05/17/18 13:03 18:51 05:06 WBC RBC Hgb Hct MCH RDW Lymph % (Auto) [place] % (Auto) Lymph # Seg Neutrophils % Seg Neuts % (Manual) Lymphocytes % (Manual) Seg Neutrophils # Man Lymphocytes # (Manual) PT INR VBG pH Sodium Potassium Chloride Carbon Dioxide BUN Creatinine Glucose POC Glucose 112 H 111 H 128 H Lactic Acid Calcium Phosphorus Magnesium Total Bilirubin AST Total Protein Albumin Prealbumin Crossmatch 05/17/18 05/17/18 05/18/18 06:07 23:54 07:05 WBC RBC Hgb Hct MCH RDW Lymph % (Auto) [place] % (Auto) Lymph # Seg Neutrophils % Seg Neuts % (Manual) Lymphocytes % (Manual) Seg Neutrophils # Man Lymphocytes # (Manual) PT INR VBG pH Sodium 135 L Potassium Chloride Carbon Dioxide BUN Creatinine 0.2 L Glucose 133 H POC Glucose 120 H 119 H Lactic Acid Calcium Phosphorus Magnesium Total Bilirubin AST Total Protein Albumin Prealbumin Crossmatch 05/18/18 05/18/18 05/18/18 07:43 11:29 16:29 WBC RBC Hgb Hct MCH RDW Lymph % (Auto) [place] % (Auto) Lymph # Seg Neutrophils % Seg Neuts % (Manual) Lymphocytes % (Manual) Seg Neutrophils # Man Lymphocytes # (Manual) PT INR VBG pH Sodium Potassium Chloride Carbon Dioxide BUN Creatinine 0.2 L Glucose 117 H POC Glucose 149 H 108 H Lactic Acid Calcium 8.2 L Phosphorus Magnesium Total Bilirubin AST Total Protein Albumin Prealbumin Crossmatch 05/19/18 05/19/18 05/20/18 23:15 Unknown 05:59 WBC RBC Hgb Hct MCH RDW Lymph % (Auto) [place] % (Auto) Lymph # Seg Neutrophils % Seg Neuts % (Manual) Lymphocytes % (Manual) Seg Neutrophils # Man Lymphocytes # (Manual) PT INR VBG pH Sodium 136 L Potassium Chloride Carbon Dioxide BUN Creatinine 0.2 L Glucose POC Glucose 106 H 114 H Lactic Acid Calcium Phosphorus 4.60 H D Magnesium Total Bilirubin AST Total Protein Albumin Prealbumin Crossmatch 0305/20/18 05/20/18 06:25 17:52 23:59 WBC RBC Hgb Hct MCH RDW Lymph % (Auto) [place] % (Auto) Lymph # Seg Neutrophils % Seg Neuts % (Manual) Lymphocytes % (Manual) Seg Neutrophils # Man Lymphocytes # (Manual) PT INR VBG pH Sodium 135 L Potassium Chloride Carbon Dioxide BUN Creatinine 0.2 L Glucose 108 H POC Glucose 118 H 186 H Lactic Acid Calcium 8.3 L Phosphorus Magnesium Total Bilirubin AST Total Protein 5.6 L Albumin 2.9 L Prealbumin 0.113 L Crossmatch 05/21/18 05/21/18 05/21/18 04:40 06:36 07:20 WBC RBC 3.40 L Hgb 9.2 L Hct 28.0 L MCH 27 L RDW 16.2 H Lymph % (Auto) [place] % (Auto) 10.3 H Lymph # Seg Neutrophils % Seg Neuts % (Manual) Lymphocytes % (Manual) Seg Neutrophils # Man Lymphocytes # (Manual) PT INR VBG pH Sodium 135 L Potassium Chloride Carbon Dioxide BUN Creatinine < 0.2 L Glucose POC Glucose 138 H Lactic Acid Calcium 8.2 L Phosphorus Magnesium Total Bilirubin AST Total Protein Albumin Prealbumin Crossmatch 05/21/18 05/21/18 05/22/18 11:12 18:17 00:10 WBC RBC Hgb Hct MCH RDW Lymph % (Auto) [place] % (Auto) Lymph # Seg Neutrophils % Seg Neuts % (Manual) Lymphocytes % (Manual) Seg Neutrophils # Man Lymphocytes # (Manual) PT INR VBG pH Sodium Potassium Chloride Carbon Dioxide BUN Creatinine Glucose POC Glucose 137 H 134 H 127 H Lactic Acid Calcium Phosphorus Magnesium Total Bilirubin AST Total Protein Albumin Prealbumin Crossmatch 05/22/18 05/22/18 05/22/18 05:33 05:35 11:31 WBC RBC Hgb Hct MCH RDW Lymph % (Auto) [place] % (Auto) Lymph # Seg Neutrophils % Seg Neuts % (Manual) Lymphocytes % (Manual) Seg Neutrophils # Man Lymphocytes # (Manual) PT INR VBG pH Sodium Potassium Chloride Carbon Dioxide BUN Creatinine 0.2 L Glucose 115 H POC Glucose 135 H 171 H Lactic Acid Calcium 8.3 L Phosphorus Magnesium Total Bilirubin AST Total Protein Albumin Prealbumin Crossmatch 05/23/18 05/23/18 05/23/18 00:29 05:25 11:30 WBC RBC Hgb Hct MCH RDW Lymph % (Auto) [place] % (Auto) Lymph # Seg Neutrophils % Seg Neuts % (Manual) Lymphocytes % (Manual) Seg Neutrophils # Man Lymphocytes # (Manual) PT INR VBG pH Sodium 135 L Potassium Chloride Carbon Dioxide BUN Creatinine 0.2 L Glucose 113 H POC Glucose 157 H 141 H Lactic Acid Calcium 8.2 L Phosphorus Magnesium Total Bilirubin AST Total Protein Albumin Prealbumin Crossmatch 05/24/18 05/24/18 05/24/18 05:40 11:26 17:26 WBC RBC Hgb Hct MCH RDW Lymph % (Auto) [place] % (Auto) Lymph # Seg Neutrophils % Seg Neuts % (Manual) Lymphocytes % (Manual) Seg Neutrophils # Man Lymphocytes # (Manual) PT INR VBG pH Sodium 133 L Potassium Chloride 97.7 L Carbon Dioxide BUN Creatinine 0.2 L Glucose POC Glucose 120 H 113 H Lactic Acid Calcium 8.1 L Phosphorus Magnesium Total Bilirubin AST Total Protein Albumin Prealbumin Crossmatch 05/25/18 05/25/18 05/25/18 05:00 18:30 22:32 WBC RBC Hgb Hct MCH RDW Lymph % (Auto) [place] % (Auto) Lymph # Seg Neutrophils % Seg Neuts % (Manual) Lymphocytes % (Manual) Seg Neutrophils # Man Lymphocytes # (Manual) PT INR VBG pH Sodium 134 L Potassium Chloride 97.2 L Carbon Dioxide BUN Creatinine 0.2 L Glucose POC Glucose 111 H 112 H Lactic Acid Calcium Phosphorus Magnesium Total Bilirubin AST Total Protein Albumin Prealbumin Crossmatch 05/26/18 05/26/18 05/27/18 06:15 12:03 01:31 WBC RBC Hgb Hct MCH RDW Lymph % (Auto) [place] % (Auto) Lymph # Seg Neutrophils % Seg Neuts % (Manual) Lymphocytes % (Manual) Seg Neutrophils # Man Lymphocytes # (Manual) PT INR VBG pH Sodium 136 L Potassium Chloride Carbon Dioxide BUN Creatinine 0.3 L Glucose POC Glucose 121 H 115 H Lactic Acid Calcium Phosphorus Magnesium Total Bilirubin AST Total Protein Albumin Prealbumin Crossmatch 05/27/18 05/27/18 05/27/18 05:27 05:27 06:26 WBC RBC 3.28 L Hgb 8.7 L Hct 26.5 L MCH 27 L RDW 16.3 H Lymph % (Auto) [place] % (Auto) 9.1 H Lymph # Seg Neutrophils % Seg Neuts % (Manual) Lymphocytes % (Manual) Seg Neutrophils # Man Lymphocytes # (Manual) PT INR VBG pH Sodium 134 L Potassium Chloride Carbon Dioxide BUN Creatinine 0.2 L Glucose 106 H POC Glucose 124 H Lactic Acid Calcium 8.2 L Phosphorus Magnesium Total Bilirubin AST Total Protein Albumin Prealbumin Crossmatch 05/27/18 05/27/18 05/28/18 11:46 17:41 05:30 WBC RBC Hgb Hct MCH RDW Lymph % (Auto) [place] % (Auto) Lymph # Seg Neutrophils % Seg Neuts % (Manual) Lymphocytes % (Manual) Seg Neutrophils # Man Lymphocytes # (Manual) PT INR VBG pH Sodium 135 L Potassium Chloride Carbon Dioxide BUN Creatinine 0.2 L Glucose 102 H POC Glucose 115 H 113 H Lactic Acid Calcium 8.2 L Phosphorus Magnesium Total Bilirubin AST Total Protein Albumin Prealbumin Crossmatch 05/28/18 05/28/18 05/28/18 05:44 13:09 17:01 WBC RBC Hgb Hct MCH RDW Lymph % (Auto) [place] % (Auto) Lymph # Seg Neutrophils % Seg Neuts % (Manual) Lymphocytes % (Manual) Seg Neutrophils # Man Lymphocytes # (Manual) PT INR VBG pH Sodium Potassium Chloride Carbon Dioxide BUN Creatinine Glucose POC Glucose 107 H 134 H 122 H Lactic Acid Calcium Phosphorus Magnesium Total Bilirubin AST Total Protein Albumin Prealbumin Crossmatch 05/28/18 05/29/18 05/29/18 23:57 05:05 05:40 WBC RBC Hgb Hct MCH RDW Lymph % (Auto) [place] % (Auto) Lymph # Seg Neutrophils % Seg Neuts % (Manual) Lymphocytes % (Manual) Seg Neutrophils # Man Lymphocytes # (Manual) PT INR VBG pH Sodium Potassium 3.5 L Chloride Carbon Dioxide 21 L BUN Creatinine < 0.2 L Glucose 114 H POC Glucose 111 H 114 H Lactic Acid Calcium 8.0 L Phosphorus 2.20 L D Magnesium Total Bilirubin AST Total Protein Albumin Prealbumin Crossmatch 05/29/18 05/29/18 05/29/18 11:14 11:31 18:06 WBC 3.8 L RBC 3.39 L Hgb 8.9 L Hct 27.7 L MCH 26 L RDW 16.1 H Lymph % (Auto) [place] % (Auto) 12.7 H Lymph # 0.8 L Seg Neutrophils % Seg Neuts % (Manual) Lymphocytes % (Manual) Seg Neutrophils # Man Lymphocytes # (Manual) PT INR VBG pH Sodium Potassium Chloride Carbon Dioxide BUN Creatinine Glucose POC Glucose 178 H 115 H Lactic Acid Calcium Phosphorus Magnesium Total Bilirubin AST Total Protein Albumin Prealbumin Crossmatch 05/29/18 05/30/18 05/30/18 23:54 04:40 05:40 WBC RBC Hgb Hct MCH RDW Lymph % (Auto) [place] % (Auto) Lymph # Seg Neutrophils % Seg Neuts % (Manual) Lymphocytes % (Manual) Seg Neutrophils # Man Lymphocytes # (Manual) PT INR VBG pH Sodium Potassium Chloride 107.5 H Carbon Dioxide 21 L BUN Creatinine 0.2 L Glucose POC Glucose 108 H 121 H Lactic Acid Calcium 8.1 L Phosphorus Magnesium Total Bilirubin AST 48 H Total Protein 5.3 L Albumin 2.5 L Prealbumin Crossmatch 05/30/18 05/31/18 05/31/18 11:53 00:28 06:00 WBC RBC Hgb Hct MCH RDW Lymph % (Auto) [place] % (Auto) Lymph # Seg Neutrophils % Seg Neuts % (Manual) Lymphocytes % (Manual) Seg Neutrophils # Man Lymphocytes # (Manual) PT INR VBG pH Sodium Potassium Chloride Carbon Dioxide BUN Creatinine 0.2 L Glucose POC Glucose 107 H 111 H Lactic Acid Calcium 8.0 L Phosphorus Magnesium Total Bilirubin AST Total Protein Albumin Prealbumin Crossmatch 05/31/18 06/01/18 06/01/18 06:14 00:36 04:02 WBC RBC Hgb Hct MCH RDW Lymph % (Auto) [place] % (Auto) Lymph # Seg Neutrophils % Seg Neuts % (Manual) Lymphocytes % (Manual) Seg Neutrophils # Man Lymphocytes # (Manual) PT INR VBG pH Sodium 135 L Potassium Chloride Carbon Dioxide BUN Creatinine 0.2 L Glucose 115 H POC Glucose 106 H 116 H Lactic Acid Calcium 8.0 L Phosphorus Magnesium Total Bilirubin AST Total Protein Albumin Prealbumin Crossmatch 06/01/18 05:52 WBC RBC Hgb Hct MCH RDW Lymph % (Auto) [place] % (Auto) Lymph # Seg Neutrophils % Seg Neuts % (Manual) Lymphocytes % (Manual) Seg Neutrophils # Man Lymphocytes # (Manual) PT INR VBG pH Sodium Potassium Chloride Carbon Dioxide BUN Creatinine Glucose POC Glucose 127 H Lactic Acid Calcium Phosphorus Magnesium Total Bilirubin AST Total Protein Albumin Prealbumin Crossmatch Allied health notes reviewed: nursing
--- NOTE | 2018-06-01 14:16 | Progress Note ---
Assessment and Plan /Sepsis Etiology secondary to gangrenous and perforated appendix causing intra- abdominal/pelvic abscess. Patient is status post exploratory laparotomy with appendectomy and evacuation of pelvic abscess. Now off antibiotics and noted ID signed off. No fever off antibiotics. /Perforated appendix s/p exploratory lap Cont. TPN, started on clear liquid diet which increased drainage, suspicion for non healing perforation s/p repeat CT abdomen/pelvis on 05/25/18 recommended transfer to tertiary center - reference sent for [facility], but they have no bed patient still having significant drainage ~ 200cc/day with fecal material- not a safe plan to d/c home unless thats goes down - will defer to surgery /Chronic hep C. Untreated. Outpatient follow-up. /Accel Hypertension. continue Cozaar to 100mg. Cont. Hydralazine prn. /Diarrhea: s/p lmodium prn x 1 /Tachycardia: secondary to dehydration and deconditioning. Fluids to be given and also started Low dose BB. /COPD. Compensated. nebs as needed /Neurofibromatosis: outpt follow up /Tobacco abuse. Patient counseled on smoking cessation FOR 15 MINS, Patient verbalized understanding and will think about it. 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 continue with TPN, npo now /Hypotension-resolved BP better, Disposition - when cleared by surgery Brief history: The patient is a 57-year-old female with hypertension, neurofibromatosis, hepatitis C, COPD, nicotine dependence presented to the emergency room on 04/18/18 with complaints of abdominal pain going on for [address] scan obtained in the emergency room revealed a ruptured appendix with associated intra-abdominal abscess. General surgery was consulted and the patient underwent an emergent exploratory laparotomy with evacuation of pelvic abscess. She was noted to have a gangrenous, perforated appendix eroding including into the small bowel. As per the op note, the abscess could not be drained as the entire abscess and inflammatory process had trapped the small bowel, which was mobilized and she underwent an ileocolic anastomosis. The patient went back to the OR on 04/25/18 for drain dislodgment. * Continue local wound care and TPN * Surgical culture grew Ecoli and ester, completed treatment * CT abdomen: 05/18/18- Still shows minimal drainage, per surgery repeat CT of abd & pelvis with PO contrast done 05/25/18 showed no acute change - started on clear liquid but continue to abdominal pain and high drainage suspicion for non healing perforation, may need terciary center transfer * Urology was consulted for possible entro-vesico fistula due to the color of the urine, cystogram was normal. * Insurance denies LTAC, recommends SNF. Both Patient refuses SNF Hospitalist Physical VITAL SIGNS: Reviewed. GENERAL: The patient appeared well nourished and normally developed. Cachectic. Vital signs as documented. HEAD: No signs of head trauma. marked tempral wasting EYES: Pupils are equal. Extraocular motions intact. EARS: Hearing grossly intact. MOUTH: Oropharynx is normal. NECK: No adenopathy, no JVD. CHEST: Chest with clear breath sounds bilaterally. No wheezes, rales, or rhonchi. CARDIAC: Regular rate and rhythm. S1 and S2, without murmurs, gallops, or rubs. VASCULAR: No Edema. Peripheral pulses normal and equal in all extremities. ABDOMEN: Soft, midly distended, some tenderness. bilateral drain noted. hypoactive BS No rebound or guarding, and no masses palpated. MUSCULOSKELETAL: Good range of motion of all major joints. Extremities without clubbing, cyanosis or edema. NEUROLOGIC EXAM: Alert and oriented x 3. No focal sensory or strength deficits. Speech normal. Follows commands. PSYCHIATRIC: Mood normal. SKIN: neurofibromatosis lesions on face Subjective Date of service: 06/01/18 Principal diagnosis: Sepsis; Ex-lap appendectomy and evacuation of pelvic abscess; Peritonitis Interval history: Patient seen and examined this am with nursing staff. 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 TPN Objective - Constitutional Vitals: Vital Signs - 12hr 06/01/18 06/01/18 06/01/18 04:51 07:22 08:52 Temperature 98.6 F 98.2 F Pulse Rate 94 H 92 H Pulse Rate [ 92 H Throughout] Respiratory 18 18 Rate Respiratory 18 Rate [ Throughout] Blood Pressure 132/75 130/83 O2 Sat by Pulse 98 96 Oximetry 06/01/18 06/01/18 06/01/18 09:18 09:47 09:48 Temperature Pulse Rate 92 H 92 H Pulse Rate [ 89 Throughout] Respiratory Rate Respiratory 20 Rate [ Throughout] Blood Pressure 130/83 130/83 O2 Sat by Pulse Oximetry 06/01/18 11:20 Temperature 98.0 F Pulse Rate 81 Pulse Rate [ Throughout] Respiratory 18 Rate Respiratory Rate [ Throughout] Blood Pressure 148/79 O2 Sat by Pulse 97 Oximetry - Labs CBC & Chem 7: 05/29/18 11:14 06/01/18 04:02 Labs: Abnormal lab results 06/01/18 06/01/18 06/01/18 Range/Units 00:36 04:02 05:52 Sodium 135 L (137-145) mmol/L Creatinine 0.2 L (0.7-1.2) mg/dL Glucose 115 H (65-100) mg/dL POC Glucose 116 H 127 H (70-105) Calcium 8.0 L (8.4-10.2) mg/dL
--- NOTE | 2018-06-01 18:37 | Progress Note ---
Assessment and Plan Patient awake. Weak. Resting on on room air . O2 saturation 96%.No complaint of chest pain, shortness of breath or cough.Patient still complaining some stomach pain. - Patient Problems (1) Appendicitis with perforation Current Visit: Yes Status: Acute Plan to address problem: S/p resection of perforated appendex. (2) Sepsis Current Visit: Yes Status: Acute Qualifiers: Sepsis type: Escherichia coli Qualified Code(s): A41.51 - Sepsis due to Escherichia coli [E. coli] Plan to address problem: Resolved. Patient off the antibiotics. (3) Acute metabolic encephalopathy Current Visit: No Status: Acute Plan to address problem: Appears improved. Management as per primary care. (4) Marijuana abuse Current Visit: No Status: Acute Plan to address problem: Counselled not use marijuana. Subjective Date of service: 06/01/18 Principal diagnosis: Sepsis; Ex-lap appendectomy and evacuation of pelvic abscess; Peritonitis Interval history: Patient awake. Weak. Resting on on room air . O2 saturation 96%.No complaint of chest pain, shortness of breath or cough.Patient still complaining some stomach pain. Objective Vital Signs - 12hr 06/01/18 06/01/18 06/01/18 07:22 08:52 09:18 Temperature 98.2 F Pulse Rate 92 H Pulse Rate [ 92 H 89 Throughout] Respiratory 18 Rate Respiratory 18 20 Rate [ Throughout] Blood Pressure 130/83 O2 Sat by Pulse 96 Oximetry 06/01/18 06/01/18 06/01/18 09:47 09:48 11:20 Temperature 98.0 F Pulse Rate 92 H 92 H 81 Pulse Rate [ Throughout] Respiratory 18 Rate Respiratory Rate [ Throughout] Blood Pressure 130/83 130/83 148/79 O2 Sat by Pulse 97 Oximetry 06/01/18 06/01/18 13:28 16:26 Temperature 98.1 F Pulse Rate 83 Pulse Rate [ Throughout] Respiratory 18 18 Rate Respiratory Rate [ Throughout] Blood Pressure 114/56 O2 Sat by Pulse 96 Oximetry Constitutional: no acute distress, alert, other (chronically ill looking this middle aged CF, normocephalic) Eyes: non-icteric ENT: oropharynx moist, other (Mallampati 2) Neck: supple, no lymphadenopathy, no JVD Effort: mildly labored Ascultation: Bilateral: diminished breath sounds, rhonchi (scant in bases) Percussion: Bilateral: not dull Cardiovascular: regular rate and rhythm Gastrointestinal: normoactive bowel sounds, soft, tender (bhargav-op site), non- distended, other (Drain in place with non-bloody effluent) Integumentary: other (poor turgor; ? neurofibromatous nodules over body) Extremities: no cyanosis, no edema, pink and warm, pulses normal Neurologic: normal mental status, non-focal exam, pupils equal and round, motor strength normal and Psychiatric: mood appropriate, anxious CBC and BMP: 05/29/18 11:14 06/01/18 04:02 ABG, PT/INR, D-dimer: ABG POC ABG pH 7.367 (7.35-7.45) 04/19/18 00:19 POC ABG pCO2 36.8 (35-45) 04/19/18 00:19 POC ABG pO2 84 (80-105) 04/19/18 00:19 POC ABG HCO3 21.1 04/19/18 00:19 POC ABG Total CO2 22 04/19/18 00:19 POC ABG O2 Sat 96 04/19/18 00:19 PT/INR, D-dimer PT 15.3 Sec. (12.2-14.9) H 04/22/18 05:19 INR 1.17 (0.87-1.13) H 04/22/18 05:19 Abnormal lab findings: Abnormal Labs 04/18/18 04/18/18 04/18/18 14:30 14:30 14:30 WBC 18.6 H RBC Hgb Hct MCH RDW Lymph % (Auto) Lewis % (Auto) Lymph # Seg Neutrophils % Seg Neuts % (Manual) 79.0 H Lymphocytes % (Manual) 4.0 L Seg Neutrophils # Man 14.7 H Lymphocytes # (Manual) 0.7 L PT 16.3 H INR 1.27 H VBG pH Sodium 121 L Potassium 3.0 L Chloride 78.0 L Carbon Dioxide BUN Creatinine 0.5 L Glucose 110 H POC Glucose Lactic Acid Calcium Phosphorus Magnesium Total Bilirubin 1.30 H AST 42 H Total Protein Albumin 3.1 L Prealbumin Crossmatch 04/18/18 04/18/18 04/18/18 14:30 14:30 23:59 WBC RBC Hgb Hct MCH RDW 15.8 H Lymph % (Auto) Lewis % (Auto) Lymph # Seg Neutrophils % Seg Neuts % (Manual) 78.0 H Lymphocytes % (Manual) 6.0 L Seg Neutrophils # Man Lymphocytes # (Manual) 0.5 L PT INR VBG pH 7.439 H Sodium Potassium Chloride Carbon Dioxide BUN Creatinine Glucose POC Glucose Lactic Acid 3.60 H* Calcium Phosphorus Magnesium Total Bilirubin AST Total Protein Albumin Prealbumin Crossmatch 04/18/18 04/19/18 04/19/18 23:59 05:19 05:19 WBC 15.0 H RBC Hgb Hct MCH RDW 15.3 H Lymph % (Auto) Lewis % (Auto) Lymph # Seg Neutrophils % Seg Neuts % (Manual) Lymphocytes % (Manual) 5.0 L Seg Neutrophils # Man 8.3 H Lymphocytes # (Manual) 0.8 L PT INR VBG pH Sodium 130 L D 133 L Potassium 3.5 L 3.3 L Chloride Carbon Dioxide 20 L D BUN Creatinine 0.5 L 0.6 L Glucose 140 H 115 H POC Glucose Lactic Acid Calcium 7.5 L 7.4 L Phosphorus Magnesium Total Bilirubin AST Total Protein 4.4 L D 4.1 L Albumin 2.0 L 1.9 L Prealbumin Crossmatch 04/19/18 04/19/18 04/20/18 05:19 13:05 05:18 WBC RBC Hgb Hct MCH RDW Lymph % (Auto) Lewis % (Auto) Lymph # Seg Neutrophils % Seg Neuts % (Manual) Lymphocytes % (Manual) Seg Neutrophils # Man Lymphocytes # (Manual) PT 19.4 H 17.4 H INR 1.59 H 1.38 H VBG pH Sodium Potassium Chloride Carbon Dioxide BUN Creatinine Glucose POC Glucose Lactic Acid Calcium Phosphorus Magnesium Total Bilirubin AST Total Protein Albumin Prealbumin Crossmatch See Detail 04/20/18 04/20/18 04/21/18 13:47 13:47 04:52 WBC RBC 3.29 L 3.10 L Hgb 9.6 L 8.8 L Hct 28.1 L D 26.6 L MCH RDW 15.3 H 15.4 H Lymph % (Auto) 5.6 L Lewis % (Auto) Lymph # 0.4 L Seg Neutrophils % 87.3 H Seg Neuts % (Manual) Lymphocytes % (Manual) Seg Neutrophils # Man Lymphocytes # (Manual) PT INR VBG pH Sodium Potassium Chloride Carbon Dioxide BUN Creatinine 0.3 L Glucose 102 H POC Glucose Lactic Acid Calcium 8.0 L Phosphorus Magnesium Total Bilirubin AST Total Protein Albumin Prealbumin Crossmatch 04/21/18 04/22/18 04/22/18 04:52 05:19 05:19 WBC RBC 3.64 L Hgb Hct MCH RDW Lymph % (Auto) 8.5 L Lewis % (Auto) 9.9 H Lymph # 0.6 L Seg Neutrophils % 81.0 H Seg Neuts % (Manual) Lymphocytes % (Manual) Seg Neutrophils # Man Lymphocytes # (Manual) PT 15.3 H INR 1.17 H VBG pH Sodium Potassium 3.2 L Chloride Carbon Dioxide BUN Creatinine 0.3 L Glucose POC Glucose Lactic Acid Calcium 7.6 L Phosphorus Magnesium Total Bilirubin AST Total Protein Albumin Prealbumin Crossmatch 04/22/18 04/24/18 04/24/18 05:19 07:19 07:19 WBC RBC Hgb Hct MCH RDW Lymph % (Auto) Lewis % (Auto) Lymph # Seg Neutrophils % Seg Neuts % (Manual) Lymphocytes % (Manual) Seg Neutrophils # Man Lymphocytes # (Manual) PT INR VBG pH Sodium Potassium 3.4 L 2.9 L* Chloride Carbon Dioxide BUN Creatinine 0.3 L 0.3 L Glucose 103 H POC Glucose Lactic Acid Calcium 7.7 L 7.5 L Phosphorus Magnesium 1.60 L Total Bilirubin AST Total Protein 4.3 L Albumin 2.2 L Prealbumin Crossmatch 04/24/18 04/25/18 04/25/18 07:23 06:28 06:28 WBC RBC Hgb Hct MCH RDW 15.3 H 15.9 H Lymph % (Auto) 10.1 L Lewis % (Auto) Lymph # 0.8 L Seg Neutrophils % 80.6 H Seg Neuts % (Manual) Lymphocytes % (Manual) 9.0 L Seg Neutrophils # Man Lymphocytes # (Manual) 0.7 L PT INR VBG pH Sodium Potassium 3.0 L Chloride Carbon Dioxide BUN 5 L Creatinine 0.2 L Glucose 108 H POC Glucose Lactic Acid Calcium 7.4 L Phosphorus Magnesium Total Bilirubin AST Total Protein 4.6 L Albumin 2.5 L Prealbumin Crossmatch 04/25/18 04/26/18 04/26/18 06:28 05:45 05:45 WBC 11.9 H RBC Hgb Hct MCH RDW 16.2 H Lymph % (Auto) Lewis % (Auto) Lymph # Seg Neutrophils % Seg Neuts % (Manual) Lymphocytes % (Manual) Seg Neutrophils # Man Lymphocytes # (Manual) PT INR VBG pH Sodium Potassium Chloride Carbon Dioxide BUN 5 L Creatinine 0.2 L Glucose 119 H POC Glucose Lactic Acid Calcium 7.7 L Phosphorus 2.00 L 2.20 L Magnesium Total Bilirubin AST Total Protein Albumin Prealbumin Crossmatch 04/27/18 04/28/18 04/28/18 05:33 06:00 06:00 WBC 11.2 H RBC Hgb Hct MCH RDW 16.0 H Lymph % (Auto) Lewis % (Auto) Lymph # Seg Neutrophils % Seg Neuts % (Manual) 92.0 H Lymphocytes % (Manual) 5.0 L Seg Neutrophils # Man 10.3 H Lymphocytes # (Manual) 0.6 L PT INR VBG pH Sodium Potassium 3.4 L 3.1 L Chloride Carbon Dioxide BUN 6 L 4 L Creatinine 0.2 L 0.2 L Glucose 119 H POC Glucose Lactic Acid Calcium 7.5 L 7.1 L Phosphorus 2.00 L 2.10 L Magnesium 1.50 L Total Bilirubin AST Total Protein 4.3 L Albumin 2.1 L Prealbumin Crossmatch 04/29/18 04/29/18 04/29/18 05:18 05:18 17:49 WBC 12.0 H RBC Hgb Hct MCH RDW 16.0 H Lymph % (Auto) Lewis % (Auto) Lymph # Seg Neutrophils % Seg Neuts % (Manual) 87.0 H Lymphocytes % (Manual) 10.0 L Seg Neutrophils # Man 10.4 H Lymphocytes # (Manual) PT INR VBG pH Sodium 135 L Potassium Chloride Carbon Dioxide BUN Creatinine 0.2 L Glucose 120 H POC Glucose 108 H Lactic Acid Calcium 7.5 L Phosphorus Magnesium Total Bilirubin AST Total Protein Albumin Prealbumin Crossmatch 04/30/18 04/30/18 04/30/18 00:03 05:18 05:41 WBC RBC Hgb Hct MCH RDW Lymph % (Auto) Lewis % (Auto) Lymph # Seg Neutrophils % Seg Neuts % (Manual) Lymphocytes % (Manual) Seg Neutrophils # Man Lymphocytes # (Manual) PT INR VBG pH Sodium 133 L Potassium Chloride Carbon Dioxide BUN Creatinine 0.2 L Glucose 119 H POC Glucose 112 H 110 H Lactic Acid Calcium 7.5 L Phosphorus Magnesium Total Bilirubin AST Total Protein Albumin Prealbumin Crossmatch 04/30/18 05/01/18 05/01/18 05:41 00:39 04:45 WBC RBC 3.60 L Hgb Hct MCH RDW 16.0 H Lymph % (Auto) Lewis % (Auto) Lymph # Seg Neutrophils % Seg Neuts % (Manual) 88.0 H Lymphocytes % (Manual) 8.0 L Seg Neutrophils # Man Lymphocytes # (Manual) 0.7 L PT INR VBG pH Sodium 132 L Potassium Chloride Carbon Dioxide BUN Creatinine 0.2 L Glucose 101 H POC Glucose 119 H Lactic Acid Calcium 7.6 L Phosphorus Magnesium Total Bilirubin AST Total Protein Albumin Prealbumin Crossmatch 05/01/18 05/01/18 05/01/18 06:30 16:09 23:42 WBC RBC Hgb Hct MCH RDW Lymph % (Auto) Lewis % (Auto) Lymph # Seg Neutrophils % Seg Neuts % (Manual) Lymphocytes % (Manual) Seg Neutrophils # Man Lymphocytes # (Manual) PT INR VBG pH Sodium Potassium Chloride Carbon Dioxide BUN Creatinine Glucose POC Glucose 126 H 160 H 113 H Lactic Acid Calcium Phosphorus Magnesium Total Bilirubin AST Total Protein Albumin Prealbumin Crossmatch 05/02/18 05/02/18 05/02/18 04:55 06:41 11:53 WBC RBC Hgb Hct MCH RDW Lymph % (Auto) Lewis % (Auto) Lymph # Seg Neutrophils % Seg Neuts % (Manual) Lymphocytes % (Manual) Seg Neutrophils # Man Lymphocytes # (Manual) PT INR VBG pH Sodium 134 L Potassium Chloride Carbon Dioxide BUN Creatinine 0.2 L Glucose 113 H POC Glucose 146 H 113 H Lactic Acid Calcium 7.4 L Phosphorus Magnesium Total Bilirubin AST Total Protein Albumin Prealbumin Crossmatch 05/02/18 05/02/18 05/03/18 17:33 23:37 08:46 WBC RBC 3.36 L Hgb 9.7 L Hct 28.7 L MCH RDW 16.3 H Lymph % (Auto) Lewis % (Auto) 10.0 H Lymph # Seg Neutrophils % Seg Neuts % (Manual) Lymphocytes % (Manual) Seg Neutrophils # Man Lymphocytes # (Manual) PT INR VBG pH Sodium Potassium Chloride Carbon Dioxide BUN Creatinine Glucose POC Glucose 106 H 123 H Lactic Acid Calcium Phosphorus Magnesium Total Bilirubin AST Total Protein Albumin Prealbumin Crossmatch 05/03/18 05/03/18 05/04/18 11:54 12:15 06:59 WBC RBC Hgb Hct MCH RDW Lymph % (Auto) Lewis % (Auto) Lymph # Seg Neutrophils % Seg Neuts % (Manual) Lymphocytes % (Manual) Seg Neutrophils # Man Lymphocytes # (Manual) PT INR VBG pH Sodium 136 L Potassium Chloride Carbon Dioxide BUN Creatinine 0.2 L Glucose 131 H POC Glucose 109 H 161 H Lactic Acid Calcium 7.6 L Phosphorus Magnesium Total Bilirubin AST Total Protein Albumin Prealbumin Crossmatch 05/04/18 05/04/18 05/04/18 07:03 08:02 11:10 WBC RBC 3.52 L Hgb Hct 29.8 L MCH RDW 16.2 H Lymph % (Auto) Lewis % (Auto) 8.6 H Lymph # Seg Neutrophils % Seg Neuts % (Manual) Lymphocytes % (Manual) Seg Neutrophils # Man Lymphocytes # (Manual) PT INR VBG pH Sodium 135 L Potassium Chloride Carbon Dioxide BUN Creatinine 0.2 L Glucose 160 H POC Glucose 106 H Lactic Acid Calcium 7.7 L Phosphorus Magnesium Total Bilirubin AST Total Protein Albumin Prealbumin Crossmatch 05/04/18 05/05/18 05/05/18 23:38 11:28 16:55 WBC RBC Hgb Hct MCH RDW Lymph % (Auto) Lewis % (Auto) Lymph # Seg Neutrophils % Seg Neuts % (Manual) Lymphocytes % (Manual) Seg Neutrophils # Man Lymphocytes # (Manual) PT INR VBG pH Sodium Potassium Chloride Carbon Dioxide BUN Creatinine Glucose POC Glucose 121 H 119 H 108 H Lactic Acid Calcium Phosphorus Magnesium Total Bilirubin AST Total Protein Albumin Prealbumin Crossmatch 05/05/18 05/06/18 05/06/18 Unknown 05:35 16:40 WBC RBC Hgb Hct MCH RDW Lymph % (Auto) Lewis % (Auto) Lymph # Seg Neutrophils % Seg Neuts % (Manual) Lymphocytes % (Manual) Seg Neutrophils # Man Lymphocytes # (Manual) PT INR VBG pH Sodium 135 L 136 L Potassium Chloride 97.9 L Carbon Dioxide BUN Creatinine 0.2 L 0.2 L Glucose 119 H POC Glucose 133 H Lactic Acid Calcium 8.0 L 8.1 L Phosphorus Magnesium Total Bilirubin AST 46 H Total Protein 5.5 L Albumin 2.7 L Prealbumin Crossmatch 05/06/18 05/07/18 05/07/18 22:07 05:38 05:40 WBC RBC Hgb Hct MCH RDW Lymph % (Auto) Lewis % (Auto) Lymph # Seg Neutrophils % Seg Neuts % (Manual) Lymphocytes % (Manual) Seg Neutrophils # Man Lymphocytes # (Manual) PT INR VBG pH Sodium 133 L Potassium Chloride Carbon Dioxide BUN Creatinine 0.2 L Glucose POC Glucose 168 H 107 H Lactic Acid Calcium 8.2 L Phosphorus Magnesium Total Bilirubin AST Total Protein Albumin Prealbumin Crossmatch 05/07/18 05/07/18 05/08/18 11:56 18:04 05:38 WBC RBC Hgb Hct MCH RDW 16.3 H Lymph % (Auto) Lewis % (Auto) 7.7 H Lymph # Seg Neutrophils % Seg Neuts % (Manual) Lymphocytes % (Manual) Seg Neutrophils # Man Lymphocytes # (Manual) PT INR VBG pH Sodium Potassium Chloride Carbon Dioxide BUN Creatinine Glucose POC Glucose 145 H 125 H Lactic Acid Calcium Phosphorus Magnesium Total Bilirubin AST Total Protein Albumin Prealbumin Crossmatch 05/08/18 05/08/18 05/08/18 05:38 11:35 16:23 WBC RBC Hgb Hct MCH RDW Lymph % (Auto) Lewis % (Auto) Lymph # Seg Neutrophils % Seg Neuts % (Manual) Lymphocytes % (Manual) Seg Neutrophils # Man Lymphocytes # (Manual) PT INR VBG pH Sodium 135 L Potassium Chloride Carbon Dioxide BUN Creatinine 0.2 L Glucose POC Glucose 118 H 131 H Lactic Acid Calcium Phosphorus Magnesium Total Bilirubin AST Total Protein Albumin Prealbumin Crossmatch 05/08/18 05/09/18 05/09/18 21:40 05:46 06:15 WBC RBC Hgb Hct MCH RDW Lymph % (Auto) Lewis % (Auto) Lymph # Seg Neutrophils % Seg Neuts % (Manual) Lymphocytes % (Manual) Seg Neutrophils # Man Lymphocytes # (Manual) PT INR VBG pH Sodium 135 L Potassium Chloride 97.5 L Carbon Dioxide BUN Creatinine 0.2 L Glucose POC Glucose 110 H 115 H Lactic Acid Calcium Phosphorus Magnesium Total Bilirubin AST Total Protein Albumin Prealbumin Crossmatch 05/09/18 05/09/18 05/10/18 11:28 23:53 06:22 WBC RBC Hgb Hct MCH RDW Lymph % (Auto) Lewis % (Auto) Lymph # Seg Neutrophils % Seg Neuts % (Manual) Lymphocytes % (Manual) Seg Neutrophils # Man Lymphocytes # (Manual) PT INR VBG pH Sodium Potassium Chloride Carbon Dioxide BUN Creatinine Glucose POC Glucose 145 H 132 H 149 H Lactic Acid Calcium Phosphorus Magnesium Total Bilirubin AST Total Protein Albumin Prealbumin Crossmatch 05/10/18 05/10/18 05/11/18 16:14 23:24 05:00 WBC RBC Hgb Hct MCH RDW Lymph % (Auto) Lewis % (Auto) Lymph # Seg Neutrophils % Seg Neuts % (Manual) Lymphocytes % (Manual) Seg Neutrophils # Man Lymphocytes # (Manual) PT INR VBG pH Sodium Potassium Chloride Carbon Dioxide BUN Creatinine 0.2 L Glucose 113 H POC Glucose 119 H 119 H Lactic Acid Calcium Phosphorus Magnesium Total Bilirubin AST Total Protein Albumin Prealbumin Crossmatch 05/11/18 05/11/18 05/11/18 05:57 11:23 16:29 WBC RBC Hgb Hct MCH RDW Lymph % (Auto) Lewis % (Auto) Lymph # Seg Neutrophils % Seg Neuts % (Manual) Lymphocytes % (Manual) Seg Neutrophils # Man Lymphocytes # (Manual) PT INR VBG pH Sodium Potassium Chloride Carbon Dioxide BUN Creatinine Glucose POC Glucose 173 H 143 H 159 H Lactic Acid Calcium Phosphorus Magnesium Total Bilirubin AST Total Protein Albumin Prealbumin Crossmatch 05/12/18 05/12/18 05/12/18 00:47 06:23 11:21 WBC RBC Hgb Hct MCH RDW Lymph % (Auto) Lewis % (Auto) Lymph # Seg Neutrophils % Seg Neuts % (Manual) Lymphocytes % (Manual) Seg Neutrophils # Man Lymphocytes # (Manual) PT INR VBG pH Sodium Potassium Chloride Carbon Dioxide BUN Creatinine Glucose POC Glucose 139 H 136 H 116 H Lactic Acid Calcium Phosphorus Magnesium Total Bilirubin AST Total Protein Albumin Prealbumin Crossmatch 05/12/18 05/12/18 05/12/18 17:19 17:22 22:22 WBC RBC Hgb Hct MCH RDW Lymph % (Auto) Lewis % (Auto) Lymph # Seg Neutrophils % Seg Neuts % (Manual) Lymphocytes % (Manual) Seg Neutrophils # Man Lymphocytes # (Manual) PT INR VBG pH Sodium Potassium Chloride Carbon Dioxide BUN Creatinine Glucose POC Glucose 329 H 116 H 124 H Lactic Acid Calcium Phosphorus Magnesium Total Bilirubin AST Total Protein Albumin Prealbumin Crossmatch 05/13/18 05/13/18 05/13/18 18:35 22:25 Unknown WBC RBC Hgb Hct MCH RDW Lymph % (Auto) Lewis % (Auto) Lymph # Seg Neutrophils % Seg Neuts % (Manual) Lymphocytes % (Manual) Seg Neutrophils # Man Lymphocytes # (Manual) PT INR VBG pH Sodium 136 L Potassium Chloride 97.8 L Carbon Dioxide BUN Creatinine 0.2 L Glucose POC Glucose 137 H 106 H Lactic Acid Calcium Phosphorus Magnesium Total Bilirubin AST 41 H Total Protein Albumin 3.5 L Prealbumin Crossmatch 05/14/18 05/14/18 05/14/18 06:40 06:40 12:48 WBC RBC 3.48 L Hgb 9.8 L Hct 29.1 L MCH RDW 15.6 H Lymph % (Auto) Lewis % (Auto) Lymph # Seg Neutrophils % Seg Neuts % (Manual) Lymphocytes % (Manual) Seg Neutrophils # Man Lymphocytes # (Manual) PT INR VBG pH Sodium Potassium Chloride Carbon Dioxide BUN Creatinine 0.2 L Glucose POC Glucose 113 H Lactic Acid Calcium 8.1 L Phosphorus Magnesium Total Bilirubin AST Total Protein Albumin Prealbumin Crossmatch 05/14/18 05/14/18 05/15/18 17:52 22:04 05:10 WBC RBC Hgb Hct MCH RDW Lymph % (Auto) Lewis % (Auto) Lymph # Seg Neutrophils % Seg Neuts % (Manual) Lymphocytes % (Manual) Seg Neutrophils # Man Lymphocytes # (Manual) PT INR VBG pH Sodium 135 L Potassium Chloride Carbon Dioxide BUN Creatinine 0.2 L Glucose POC Glucose 106 H 107 H Lactic Acid Calcium 8.2 L Phosphorus Magnesium Total Bilirubin AST Total Protein Albumin Prealbumin Crossmatch 05/15/18 05/15/18 05/15/18 06:24 11:31 16:47 WBC RBC Hgb Hct MCH RDW Lymph % (Auto) Lewis % (Auto) Lymph # Seg Neutrophils % Seg Neuts % (Manual) Lymphocytes % (Manual) Seg Neutrophils # Man Lymphocytes # (Manual) PT INR VBG pH Sodium Potassium Chloride Carbon Dioxide BUN Creatinine Glucose POC Glucose 125 H 133 H 135 H Lactic Acid Calcium Phosphorus Magnesium Total Bilirubin AST Total Protein Albumin Prealbumin Crossmatch 05/16/18 05/16/18 05/16/18 00:13 04:30 05:59 WBC RBC Hgb Hct MCH RDW Lymph % (Auto) Lewis % (Auto) Lymph # Seg Neutrophils % Seg Neuts % (Manual) Lymphocytes % (Manual) Seg Neutrophils # Man Lymphocytes # (Manual) PT INR VBG pH Sodium Potassium Chloride Carbon Dioxide BUN Creatinine 0.2 L Glucose POC Glucose 132 H 113 H Lactic Acid Calcium Phosphorus Magnesium Total Bilirubin AST Total Protein Albumin Prealbumin Crossmatch 05/16/18 05/16/18 05/17/18 13:03 18:51 05:06 WBC RBC Hgb Hct MCH RDW Lymph % (Auto) Lewis % (Auto) Lymph # Seg Neutrophils % Seg Neuts % (Manual) Lymphocytes % (Manual) Seg Neutrophils # Man Lymphocytes # (Manual) PT INR VBG pH Sodium Potassium Chloride Carbon Dioxide BUN Creatinine Glucose POC Glucose 112 H 111 H 128 H Lactic Acid Calcium Phosphorus Magnesium Total Bilirubin AST Total Protein Albumin Prealbumin Crossmatch 05/17/18 05/17/18 05/18/18 06:07 23:54 07:05 WBC RBC Hgb Hct MCH RDW Lymph % (Auto) Lewis % (Auto) Lymph # Seg Neutrophils % Seg Neuts % (Manual) Lymphocytes % (Manual) Seg Neutrophils # Man Lymphocytes # (Manual) PT INR VBG pH Sodium 135 L Potassium Chloride Carbon Dioxide BUN Creatinine 0.2 L Glucose 133 H POC Glucose 120 H 119 H Lactic Acid Calcium Phosphorus Magnesium Total Bilirubin AST Total Protein Albumin Prealbumin Crossmatch 05/18/18 05/18/18 05/18/18 07:43 11:29 16:29 WBC RBC Hgb Hct MCH RDW Lymph % (Auto) Lewis % (Auto) Lymph # Seg Neutrophils % Seg Neuts % (Manual) Lymphocytes % (Manual) Seg Neutrophils # Man Lymphocytes # (Manual) PT INR VBG pH Sodium Potassium Chloride Carbon Dioxide BUN Creatinine 0.2 L Glucose 117 H POC Glucose 149 H 108 H Lactic Acid Calcium 8.2 L Phosphorus Magnesium Total Bilirubin AST Total Protein Albumin Prealbumin Crossmatch 05/19/18 05/19/18 05/20/18 23:15 Unknown 05:59 WBC RBC Hgb Hct MCH RDW Lymph % (Auto) Lewis % (Auto) Lymph # Seg Neutrophils % Seg Neuts % (Manual) Lymphocytes % (Manual) Seg Neutrophils # Man Lymphocytes # (Manual) PT INR VBG pH Sodium 136 L Potassium Chloride Carbon Dioxide BUN Creatinine 0.2 L Glucose POC Glucose 106 H 114 H Lactic Acid Calcium Phosphorus 4.60 H D Magnesium Total Bilirubin AST Total Protein Albumin Prealbumin Crossmatch 05/20/18 05/20/18 05/20/18 06:25 17:52 23:59 WBC RBC Hgb Hct MCH RDW Lymph % (Auto) Lewis % (Auto) Lymph # Seg Neutrophils % Seg Neuts % (Manual) Lymphocytes % (Manual) Seg Neutrophils # Man Lymphocytes # (Manual) PT INR VBG pH Sodium 135 L Potassium Chloride Carbon Dioxide BUN Creatinine 0.2 L Glucose 108 H POC Glucose 118 H 186 H Lactic Acid Calcium 8.3 L Phosphorus Magnesium Total Bilirubin AST Total Protein 5.6 L Albumin 2.9 L Prealbumin 0.113 L Crossmatch 05/21/18 05/21/18 05/21/18 04:40 06:36 07:20 WBC RBC 3.40 L Hgb 9.2 L Hct 28.0 L MCH 27 L RDW 16.2 H Lymph % (Auto) Lewis % (Auto) 10.3 H Lymph # Seg Neutrophils % Seg Neuts % (Manual) Lymphocytes % (Manual) Seg Neutrophils # Man Lymphocytes # (Manual) PT INR VBG pH Sodium 135 L Potassium Chloride Carbon Dioxide BUN Creatinine < 0.2 L Glucose POC Glucose 138 H Lactic Acid Calcium 8.2 L Phosphorus Magnesium Total Bilirubin AST Total Protein Albumin Prealbumin Crossmatch 05/21/18 05/21/18 05/22/18 11:12 18:17 00:10 WBC RBC Hgb Hct MCH RDW Lymph % (Auto) Lewis % (Auto) Lymph # Seg Neutrophils % Seg Neuts % (Manual) Lymphocytes % (Manual) Seg Neutrophils # Man Lymphocytes # (Manual) PT INR VBG pH Sodium Potassium Chloride Carbon Dioxide BUN Creatinine Glucose POC Glucose 137 H 134 H 127 H Lactic Acid Calcium Phosphorus Magnesium Total Bilirubin AST Total Protein Albumin Prealbumin Crossmatch 05/22/18 05/22/18 05/22/18 05:33 05:35 11:31 WBC RBC Hgb Hct MCH RDW Lymph % (Auto) Lewis % (Auto) Lymph # Seg Neutrophils % Seg Neuts % (Manual) Lymphocytes % (Manual) Seg Neutrophils # Man Lymphocytes # (Manual) PT INR VBG pH Sodium Potassium Chloride Carbon Dioxide BUN Creatinine 0.2 L Glucose 115 H POC Glucose 135 H 171 H Lactic Acid Calcium 8.3 L Phosphorus Magnesium Total Bilirubin AST Total Protein Albumin Prealbumin Crossmatch 05/23/18 05/23/18 05/23/18 00:29 05:25 11:30 WBC RBC Hgb Hct MCH RDW Lymph % (Auto) Lewis % (Auto) Lymph # Seg Neutrophils % Seg Neuts % (Manual) Lymphocytes % (Manual) Seg Neutrophils # Man Lymphocytes # (Manual) PT INR VBG pH Sodium 135 L Potassium Chloride Carbon Dioxide BUN Creatinine 0.2 L Glucose 113 H POC Glucose 157 H 141 H Lactic Acid Calcium 8.2 L Phosphorus Magnesium Total Bilirubin AST Total Protein Albumin Prealbumin Crossmatch 05/24/18 05/24/18 05/24/18 05:40 11:26 17:26 WBC RBC Hgb Hct MCH RDW Lymph % (Auto) Lewis % (Auto) Lymph # Seg Neutrophils % Seg Neuts % (Manual) Lymphocytes % (Manual) Seg Neutrophils # Man Lymphocytes # (Manual) PT INR VBG pH Sodium 133 L Potassium Chloride 97.7 L Carbon Dioxide BUN Creatinine 0.2 L Glucose POC Glucose 120 H 113 H Lactic Acid Calcium 8.1 L Phosphorus Magnesium Total Bilirubin AST Total Protein Albumin Prealbumin Crossmatch 05/25/18 05/25/18 05/25/18 05:00 18:30 22:32 WBC RBC Hgb Hct MCH RDW Lymph % (Auto) Lewis % (Auto) Lymph # Seg Neutrophils % Seg Neuts % (Manual) Lymphocytes % (Manual) Seg Neutrophils # Man Lymphocytes # (Manual) PT INR VBG pH Sodium 134 L Potassium Chloride 97.2 L Carbon Dioxide BUN Creatinine 0.2 L Glucose POC Glucose 111 H 112 H Lactic Acid Calcium Phosphorus Magnesium Total Bilirubin AST Total Protein Albumin Prealbumin Crossmatch 05/26/18 05/26/18 05/27/18 06:15 12:03 01:31 WBC RBC Hgb Hct MCH RDW Lymph % (Auto) Lewis % (Auto) Lymph # Seg Neutrophils % Seg Neuts % (Manual) Lymphocytes % (Manual) Seg Neutrophils # Man Lymphocytes # (Manual) PT INR VBG pH Sodium 136 L Potassium Chloride Carbon Dioxide BUN Creatinine 0.3 L Glucose POC Glucose 121 H 115 H Lactic Acid Calcium Phosphorus Magnesium Total Bilirubin AST Total Protein Albumin Prealbumin Crossmatch 05/27/18 05/27/18 05/27/18 05:27 05:27 06:26 WBC RBC 3.28 L Hgb 8.7 L Hct 26.5 L MCH 27 L RDW 16.3 H Lymph % (Auto) Lewis % (Auto) 9.1 H Lymph # Seg Neutrophils % Seg Neuts % (Manual) Lymphocytes % (Manual) Seg Neutrophils # Man Lymphocytes # (Manual) PT INR VBG pH Sodium 134 L Potassium Chloride Carbon Dioxide BUN Creatinine 0.2 L Glucose 106 H POC Glucose 124 H Lactic Acid Calcium 8.2 L Phosphorus Magnesium Total Bilirubin AST Total Protein Albumin Prealbumin Crossmatch 05/27/18 05/27/18 05/28/18 11:46 17:41 05:30 WBC RBC Hgb Hct MCH RDW Lymph % (Auto) Lewis % (Auto) Lymph # Seg Neutrophils % Seg Neuts % (Manual) Lymphocytes % (Manual) Seg Neutrophils # Man Lymphocytes # (Manual) PT INR VBG pH Sodium 135 L Potassium Chloride Carbon Dioxide BUN Creatinine 0.2 L Glucose 102 H POC Glucose 115 H 113 H Lactic Acid Calcium 8.2 L Phosphorus Magnesium Total Bilirubin AST Total Protein Albumin Prealbumin Crossmatch 05/28/18 05/28/18 05/28/18 05:44 13:09 17:01 WBC RBC Hgb Hct MCH RDW Lymph % (Auto) Lewis % (Auto) Lymph # Seg Neutrophils % Seg Neuts % (Manual) Lymphocytes % (Manual) Seg Neutrophils # Man Lymphocytes # (Manual) PT INR VBG pH Sodium Potassium Chloride Carbon Dioxide BUN Creatinine Glucose POC Glucose 107 H 134 H 122 H Lactic Acid Calcium Phosphorus Magnesium Total Bilirubin AST Total Protein Albumin Prealbumin Crossmatch 05/28/18 05/29/18 05/29/18 23:57 05:05 05:40 WBC RBC Hgb Hct MCH RDW Lymph % (Auto) Lewis % (Auto) Lymph # Seg Neutrophils % Seg Neuts % (Manual) Lymphocytes % (Manual) Seg Neutrophils # Man Lymphocytes # (Manual) PT INR VBG pH Sodium Potassium 3.5 L Chloride Carbon Dioxide 21 L BUN Creatinine < 0.2 L Glucose 114 H POC Glucose 111 H 114 H Lactic Acid Calcium 8.0 L Phosphorus 2.20 L D Magnesium Total Bilirubin AST Total Protein Albumin Prealbumin Crossmatch 05/29/18 05/29/18 05/29/18 11:14 11:31 18:06 WBC 3.8 L RBC 3.39 L Hgb 8.9 L Hct 27.7 L MCH 26 L RDW 16.1 H Lymph % (Auto) Lewis % (Auto) 12.7 H Lymph # 0.8 L Seg Neutrophils % Seg Neuts % (Manual) Lymphocytes % (Manual) Seg Neutrophils # Man Lymphocytes # (Manual) PT INR VBG pH Sodium Potassium Chloride Carbon Dioxide BUN Creatinine Glucose POC Glucose 178 H 115 H Lactic Acid Calcium Phosphorus Magnesium Total Bilirubin AST Total Protein Albumin Prealbumin Crossmatch 05/29/18 05/30/1819 23:54 04:40 05:40 WBC RBC Hgb Hct MCH RDW Lymph % (Auto) Lewis % (Auto) Lymph # Seg Neutrophils % Seg Neuts % (Manual) Lymphocytes % (Manual) Seg Neutrophils # Man Lymphocytes # (Manual) PT INR VBG pH Sodium Potassium Chloride 107.5 H Carbon Dioxide 21 L BUN Creatinine 0.2 L Glucose POC Glucose 108 H 121 H Lactic Acid Calcium 8.1 L Phosphorus Magnesium Total Bilirubin AST 48 H Total Protein 5.3 L Albumin 2.5 L Prealbumin Crossmatch 05/30/18 05/31/18 05/31/18 11:53 00:28 06:00 WBC RBC Hgb Hct MCH RDW Lymph % (Auto) Lewis % (Auto) Lymph # Seg Neutrophils % Seg Neuts % (Manual) Lymphocytes % (Manual) Seg Neutrophils # Man Lymphocytes # (Manual) PT INR VBG pH Sodium Potassium Chloride Carbon Dioxide BUN Creatinine 0.2 L Glucose POC Glucose 107 H 111 H Lactic Acid Calcium 8.0 L Phosphorus Magnesium Total Bilirubin AST Total Protein Albumin Prealbumin Crossmatch 05/31/18 06/01/18 06/01/18 06:14 00:36 04:02 WBC RBC Hgb Hct MCH RDW Lymph % (Auto) Lewis % (Auto) Lymph # Seg Neutrophils % Seg Neuts % (Manual) Lymphocytes % (Manual) Seg Neutrophils # Man Lymphocytes # (Manual) PT INR VBG pH Sodium 135 L Potassium Chloride Carbon Dioxide BUN Creatinine 0.2 L Glucose 115 H POC Glucose 106 H 116 H Lactic Acid Calcium 8.0 L Phosphorus Magnesium Total Bilirubin AST Total Protein Albumin Prealbumin Crossmatch 06/01/18 05:52 WBC RBC Hgb Hct MCH RDW Lymph % (Auto) Lewis % (Auto) Lymph # Seg Neutrophils % Seg Neuts % (Manual) Lymphocytes % (Manual) Seg Neutrophils # Man Lymphocytes # (Manual) PT INR VBG pH Sodium Potassium Chloride Carbon Dioxide BUN Creatinine Glucose POC Glucose 127 H Lactic Acid Calcium Phosphorus Magnesium Total Bilirubin AST Total Protein Albumin Prealbumin Crossmatch Chest x-ray: report reviewed (Reported unremarkable.), image reviewed Allied health notes reviewed: nursing
[2018-06-01] MEDS ORDERED: TPN ADULT 1,800 ML IV SCH (20:00)
[2018-06-01] MEDS ORDERED: INTRALIPID 20% 250 ML IV SCH (20:00)
[2018-06-01] MEDS: REMERON PO SCH (21:25)
[2018-06-02] MEDS: DILAUDID IV PRN ×6 (01:48→22:37)
[2018-06-02] MEDS: BROVANA NEBU IH SCH ×3 (05:32→22:10)
[2018-06-02] MEDS: PULMICORT IH SCH ×3 (05:32→22:10)
[2018-06-02 07:11] LABS: BUN/Creatinine Ratio 65; Blood Urea Nitrogen 13 mg/dL (7-17); Calcium 8.2 mg/dL (8.4-10.2); Hemolysis Index 11
[2018-06-02] MEDS: XANAX PO PRN ×2 (09:17→20:56)
[2018-06-02] MEDS: COZAAR PO SCH (09:17)
[2018-06-02] MEDS: NEURONTIN PO SCH ×3 (09:17→20:41)
[2018-06-02] MEDS: LOPRESSOR PO SCH ×2 (09:18→22:39)
--- NOTE | 2018-06-02 12:05 | Progress Note ---
Assessment and Plan Assessment and plan: The patient is a 57-year-old female with hypertension, neurofibromatosis, hepatitis C, COPD, nicotine dependence presented to the emergency room on 04/18/18 with complaints of abdominal pain going on for [address] scan obtained in the emergency room revealed a ruptured appendix with associated intra-abdominal abscess. General surgery was consulted and the patient underwent an emergent exploratory laparotomy with evacuation of pelvic abscess. She was noted to have a gangrenous, perforated appendix eroding including into the small bowel. As per the op note, the abscess could not be drained as the entire abscess and inflammatory process had trapped the small bowel, which was mobilized and she underwent an ileocolic anastomosis. The patient went back to the OR on 04/25/18 for drain dislodgment. * Continue local wound care and TPN * Surgical culture grew Ecoli and ester, completed treatment * CT abdomen: 05/18/18- Still shows minimal drainage, per surgery repeat CT of abd & pelvis with PO contrast done 05/25/18 showed no acute change - started on clear liquid but continue to abdominal pain and high drainage suspicion for non healing perforation, may need terciary center transfer * Urology was consulted for possible entro-vesico fistula due to the color of the urine, cystogram was normal. * Insurance denies LTAC, recommends SNF. Both Patient refuses SNF /Sepsis Etiology secondary to gangrenous and perforated appendix causing intra- abdominal/pelvic abscess. Patient is status post exploratory laparotomy with appendectomy and evacuation of pelvic abscess. Now off antibiotics and noted ID signed off. No fever off antibiotics. /Perforated appendix s/p exploratory lap Cont. TPN, started on clear liquid diet which increased drainage, suspicion for non healing perforation s/p repeat CT abdomen/pelvis on 05/25/18 recommended transfer to tertiary center - reference sent for [facility], but they have no bed patient still having significant drainage ~ 200cc/day /Chronic hep C. Untreated. Outpatient follow-up. /Accel Hypertension. continue Cozaar to 100mg. Cont. Hydralazine prn. /Diarrhea: s/p lmodium prn x 1 /Tachycardia: secondary to dehydration and deconditioning. Fluids to be given and also started Low dose BB. /COPD. Compensated. nebs as needed /Neurofibromatosis: outpt follow up /Tobacco abuse. Patient counseled on smoking cessation FOR 15 MINS, Patient verbalized understanding and will think about it. /Severe protein calorie malnutrition; security investigator consulted. continue with TPN, npo now /Hypotension-resolved BP better, Disposition - Not stable for discharge. History Interval history: Less abd pain No fever Hospitalist Physical - Physical exam Narrative exam: GEN: Not in acute distress, lying in bed, ill looking, malnourished HEENT: Normocephalic, atraumatic Neck: supple, No JVD Lungs: Clear to auscultation bilaterally, no wheeze Heart:S1 and S2 regular, no murmurs, rubs or gallop, Abd:soft, mild tender, dressing over abdomen, Ext: No edema, no clubbing or cyanosis Neuro: AAO x 3, moves all extremities, no focal neurological signs - Constitutional Vitals: Temp Pulse Resp BP Pulse Ox 98.0 F 97 H 20 132/61 95 06/02/18 07:29 06/02/18 07:36 06/02/18 11:07 06/02/18 07:29 06/02/18 07:29 General appearance: Present: no acute distress, cachectic, other (temporal wasting scaphoid abdomen.) Results - Labs CBC & Chem 7: 05/29/18 11:14 06/02/18 06:25 Labs: Laboratory Last Values WBC 3.8 K/mm3 (4.5-11.0) L 05/29/18 11:14 RBC 3.39 M/mm3 (3.65-5.03) L 05/29/18 11:14 Hgb 8.9 gm/dl (10.1-14.3) L 05/29/18 11:14 Hct 27.7 % (30.3-42.9) L 05/29/18 11:14 MCV 82 fl (79-97) 05/29/18 11:14 MCH 26 pg (28-32) L 05/29/18 11:14 MCHC 32 % (30-34) 05/29/18 11:14 RDW 16.1 % (13.2-15.2) H 05/29/18 11:14 Plt Count 154 K/mm3 (140-440) 05/29/18 11:14 Lymph % (Auto) 22.4 % (13.4-35.0) 05/29/18 11:14 [place] % (Auto) 12.7 % (0.0-7.3) H 05/29/18 11:14 Eos % (Auto) 0.4 % (0.0-4.3) 05/29/18 11:14 Baso % (Auto) 0.3 % (0.0-1.8) 05/29/18 11:14 Lymph # 0.8 K/mm3 (1.2-5.4) L 05/29/18 11:14 [place] # 0.5 K/mm3 (0.0-0.8) 05/29/18 11:14 Eos # 0.0 K/mm3 (0.0-0.4) 05/29/18 11:14 Baso # 0.0 K/mm3 (0.0-0.1) 05/29/18 11:14 Add Manual Diff Complete 04/30/18 05:41 Total Counted 100 04/30/18 05:41 Seg Neutrophils % 64.2 % (40.0-70.0) 05/29/18 11:14 Seg Neuts % (Manual) 88.0 % (40.0-70.0) H 04/30/18 05:41 Band Neutrophils % 1.0 % 04/30/18 05:41 Lymphocytes % (Manual) 8.0 % (13.4-35.0) L 04/30/18 05:41 Reactive Lymphs % (Man) 0 % 04/30/18 05:41 Monocytes % (Manual) 3.0 % (0.0-7.3) 04/30/18 05:41 Eosinophils % (Manual) 0 % (0.0-4.3) 04/30/18 05:41 Basophils % (Manual) 0 % (0.0-1.8) 04/30/18 05:41 Metamyelocytes % 0 % 04/30/18 05:41 Myelocytes % 0 % 04/30/18 05:41 Promyelocytes % 0 % 04/30/18 05:41 Blast Cells % 0 % 04/30/18 05:41 Nucleated RBC % Not Reportable 04/30/18 05:41 Seg Neutrophils # 2.4 K/mm3 (1.8-7.7) 05/29/18 11:14 Seg Neutrophils # Man 7.7 K/mm3 (1.8-7.7) 04/30/18 05:41 Band Neutrophils # 0.1 K/mm3 04/30/18 05:41 Lymphocytes # (Manual) 0.7 K/mm3 (1.2-5.4) L 04/30/18 05:41 Abs React Lymphs (Man) 0.0 K/mm3 04/30/18 05:41 Monocytes # (Manual) 0.3 K/mm3 (0.0-0.8) 04/30/18 05:41 Eosinophils # (Manual) 0.0 K/mm3 (0.0-0.4) 04/30/18 05:41 Basophils # (Manual) 0.0 K/mm3 (0.0-0.1) 04/30/18 05:41 Metamyelocytes # 0.0 K/mm3 04/30/18 05:41 Myelocytes # 0.0 K/mm3 04/30/18 05:41 Promyelocytes # 0.0 K/mm3 04/30/18 05:41 Blast Cells # 0.0 K/mm3 04/30/18 05:41 WBC Morphology Not Reportable 04/30/18 05:41 Hypersegmented Neuts Not Reportable 04/30/18 05:41 Hyposegmented Neuts Not Reportable 04/30/18 05:41 Hypogranular Neuts Not Reportable 04/30/18 05:41 Smudge Cells Not Reportable 04/30/18 05:41 Toxic Granulation Not Reportable 04/30/18 05:41 Toxic Vacuolation Not Reportable 04/30/18 05:41 Dohle Bodies Not Reportable 04/30/18 05:41 Pelger-Huet Anomaly Not Reportable 04/30/18 05:41 Nicole Rods Not Reportable 04/30/18 05:41 Platelet Estimate Appears normal 04/30/18 05:41 Clumped Platelets Not Reportable 04/30/18 05:41 Plt Clumps, EDTA Not Reportable 04/30/18 05:41 Large Platelets Not Reportable 04/30/18 05:41 Giant Platelets Not Reportable 04/30/18 05:41 Platelet Satelliting Not Reportable 04/30/18 05:41 Plt Morphology Comment Not Reportable 04/30/18 05:41 RBC Morphology Not Reportable 04/30/18 05:41 Dimorphic RBCs Not Reportable 04/30/18 05:41 Polychromasia Not Reportable 04/30/18 05:41 Hypochromasia 1+ 04/30/18 05:41 Poikilocytosis Not Reportable 04/30/18 05:41 Anisocytosis 1+ 04/30/18 05:41 Microcytosis Not Reportable 04/30/18 05:41 Macrocytosis Not Reportable 04/30/18 05:41 Spherocytes Not Reportable 04/30/18 05:41 Pappenheimer Bodies Not Reportable 04/30/18 05:41 Sickle Cells Not Reportable 04/30/18 05:41 Target Cells Not Reportable 04/30/18 05:41 Tear Drop Cells Not Reportable 04/30/18 05:41 Ovalocytes Few 04/30/18 05:41 Stomatocytes Few 04/29/18 05:18 Helmet Cells Not Reportable 04/30/18 05:41 Spann-Winifred Bodies Not Reportable 04/30/18 05:41 [place] Rings Not Reportable 04/30/18 05:41 Philip Cells Not Reportable 04/30/18 05:41 Bite Cells Not Reportable 04/30/18 05:41 Crenated Cell Not Reportable 04/30/18 05:41 Elliptocytes Not Reportable 04/30/18 05:41 Acanthocytes (Spur) Not Reportable 04/30/18 05:41 Rouleaux Not Reportable 04/30/18 05:41 Hemoglobin C Crystals Not Reportable 04/30/18 05:41 Schistocytes Not Reportable 04/30/18 05:41 Malaria parasites Not Reportable 04/30/18 05:41 Hung Bodies Not Reportable 04/30/18 05:41 Hem Pathologist Commnt No 04/30/18 05:41 PT 15.3 Sec. (12.2-14.9) H 04/22/18 05:19 INR 1.17 (0.87-1.13) H 04/22/18 05:19 APTT 29.4 Sec. (24.2-36.6) 04/19/18 05:19 POC ABG pH 7.367 (7.35-7.45) 04/19/18 00:19 POC ABG pCO2 36.8 (35-45) 04/19/18 00:19 POC ABG pO2 84 (80-105) 04/19/18 00:19 POC ABG HCO3 21.1 04/19/18 00:19 POC ABG Total CO2 22 04/19/18 00:19 POC ABG O2 Sat 96 04/19/18 00:19 POC ABG Base Excess -4 04/19/18 00:19 VBG pH 7.439 (7.320-7.420) H 04/18/18 14:30 FiO2 32 % 04/19/18 00:19 Sodium 133 mmol/L (137-145) L 06/02/18 06:25 Potassium 4.0 mmol/L (3.6-5.0) 06/02/18 06:25 Chloride 103.0 mmol/L (98-107) 06/02/18 06:25 Carbon Dioxide 24 mmol/L (22-30) 06/02/18 06:25 Anion Gap 10 mmol/L 06/02/18 06:25 BUN 13 mg/dL (7-17) 06/02/18 06:25 Creatinine 0.2 mg/dL (0.7-1.2) L 06/02/18 06:25 Estimated GFR > 60 ml/min 06/02/18 06:25 BUN/Creatinine Ratio 65 % 06/02/18 06:25 Glucose 101 mg/dL (65-100) H 06/02/18 06:25 POC Glucose 107 (70-105) H 06/02/18 05:41 Lactic Acid 1.20 mmol/L (0.7-2.0) 05/19/18 10:27 Calcium 8.2 mg/dL (8.4-10.2) L 06/02/18 06:25 Phosphorus 3.50 mg/dL (2.5-4.5) 06/02/18 06:25 Magnesium 1.80 mg/dL (1.7-2.3) 06/02/18 06:25 Total Bilirubin 0.30 mg/dL (0.1-1.2) 05/30/18 04:40 AST 48 units/L (5-40) H 05/30/18 04:40 ALT 47 units/L (7-56) 05/30/18 04:40 Alkaline Phosphatase 96 units/L (35-129) 05/30/18 04:40 Total Protein 5.3 g/dL (6.3-8.2) L 05/30/18 04:40 Albumin 2.5 g/dL (3.9-5) L 05/30/18 04:40 Albumin/Globulin Ratio 0.9 % 05/30/18 04:40 Prealbumin 0.113 g/L (0.200-0.400) L 05/20/18 06:25 Triglycerides 128 mg/dL (2-149) 05/24/18 05:40 Urine Color Yellow (Yellow) 04/20/18 13:35 Urine Turbidity Clear (Clear) 04/20/18 13:35 Urine pH 5.0 (5.0-7.0) 04/20/18 13:35 Ur Specific [place] 1.011 (1.003-1.030) 04/20/18 13:35 Urine Protein <15 mg/dl mg/dL (Negative) 04/20/18 13:35 Urine Glucose (UA) Neg mg/dL (Negative) 04/20/18 13:35 Urine Ketones 20 mg/dL (Negative) 04/20/18 13:35 Urine Blood Sm (Negative) 04/20/18 13:35 Urine Nitrite Neg (Negative) 04/20/18 13:35 Urine Bilirubin Neg (Negative) 04/20/18 13:35 Urine Urobilinogen 2.0 mg/dL (<2.0) 04/20/18 13:35 Ur Leukocyte Esterase Tr (Negative) 04/20/18 13:35 Urine WBC (Auto) 2.0 /HPF (0.0-6.0) 04/20/18 13:35 Urine RBC (Auto) 1.0 /HPF (0.0-6.0) 04/20/18 13:35 U Epithel Cells (Auto) 2.0 /HPF (0-13.0) 04/18/18 16:45 Urine Bacteria (Auto) 2+ /HPF (Negative) 04/18/18 16:45 Urine Mucus Few /HPF 04/20/18 13:35 Blood Type O POSITIVE 04/19/18 13:05 Antibody Screen Negative 04/19/18 13:05 Crossmatch See Detail 04/19/18 13:05 Active Medications - Current Medications Current Medications: Generic Name Dose Route Start Last Admin Trade Name Freq PRN Reason Stop Dose Admin Acetaminophen 650 mg 05/20/18 12:12 05/20/18 12:41 Tylenol IA 650 mg Q4H PRN Administration Fever >101 Albuterol 2.5 mg 04/18/18 18:30 05/03/18 15:15 Proventil IH 2.5 mg Q3HRT PRN Administration Shortness Of Breath Alprazolam 0.5 mg 05/04/18 12:15 06/02/18 09:17 Xanax PO 0.5 mg Q8H PRN Administration Anxiety Arformoterol Tartrate 15 mcg 05/16/18 20:00 06/02/18 07:33 Brovana Nebu IH 15 mcg Q12HRT DUSTIN Administration Benzocaine/Menthol 1 each 04/20/18 12:51 Cepacol X Strength MM Q2HR PRN Sore Throat Budesonide 0.5 mg 05/16/18 20:00 06/02/18 07:33 Pulmicort IH 0.5 mg Q12HRT DUSTIN Administration Fentanyl 25 mcg 05/17/18 11:00 06/01/18 12:28 Duragesic TD 25 mcg Q3D DUSTIN Administration Gabapentin 800 mg 05/02/18 20:00 06/02/18 09:17 Neurontin PO 800 mg TID DUSTIN Administration Hydralazine HCl 10 mg 04/21/18 11:45 05/07/18 05:50 Apresoline IV 10 mg Q4HR PRN Administration SBP >160 Hydromorphone HCl 0.5 mg 05/11/18 12:00 06/02/18 10:37 Dilaudid IV 0.5 mg Q4H PRN Administration Pain , Severe (7-10) Amino Acids/Electrolytes/Dextrose 1,800 mls @ 75 mls/hr 06/01/18 20:00 06/01/18 21:06 Tpn Adult IV 06/02/18 19:59 75 mls/hr DAILY@2000 DUSTIN Administration Protocol Labetalol HCl 10 mg 05/03/18 22:16 Normodyne IV Q6H PRN systolic BP greater than 175 Loperamide HCl 2 mg 05/17/18 14:46 05/17/18 17:11 Imodium PO 2 mg Q2H PRN Administration Diarrhea Losartan Potassium 100 mg 05/04/18 10:00 06/02/18 09:17 Cozaar PO 100 mg QDAY DUSTIN Administration Metoprolol Tartrate 12.5 mg 05/13/18 10:00 06/02/18 09:18 Lopressor PO 12.5 mg BID DUSTIN Administration Mirtazapine 15 mg 05/09/18 22:00 06/01/18 21:25 Remeron PO 15 mg QHS DUSTIN Administration Octreotide Acetate 100 mcg 05/08/18 14:00 06/02/18 06:02 Sandostatin SUB-Q 100 mcg Q8HR DUSTIN Administration Ondansetron HCl 4 mg 05/21/18 11:34 05/31/18 06:02 Zofran IV 4 mg Q4H PRN Administration Nausea And Vomiting Nutrition/Malnutrition Assess - Dietary Evaluation Nutrition/Malnutrition Findings: Nutrition Notes Start: 04/24/18 09:13 Freq: Status: Active Protocol: Document 06/01/18 16:52 MARCO (Rec: 06/01/18 16:56 MARCO [email or web address]) Nutrition Notes Initial or Follow up Reassessment Other Pertinent Diagnosis Perforated appendix s/p exp lap, Hep C Current Diet TPN at 75ml/hr Labs/Tests Na 135 Pertinent Medications Reviewed Height 5 ft 1 in Weight 41.8 kg [place] Body Weight (kg) 47.72 BMI 17.4 Subjective/Other Information Day 36 TPN. Pt with increased drainage. Percent of energy/protein needs met: 100% energy and pro Burn Absent Trauma Absent #2 Nutrition Diagnosis Increased nutrient needs ( specify in comment below) Diagnosis Progress(for reassessment Continues documentation) #1 Nutrition Diagnosis Inadequate oral intake Diagnosis Progress(for reassessment Continues documentation) Is patient on ventilator? No Is Patient Ambulatory and/or Out of Bed Yes REE-([facility]-ambulatory/OOB) [ 1228.994 [id number]] Kcal/Kg value to use for calculation 40 Approximate Energy Requirements Using 1672 kcal/Kg Additional Notes Pro needs 1.25-1.5g/k-63g /day Fluid needs 1ml/kcal Nutrition Intervention Nutrition Support: Continue CPN at 75 mL/hr: MVI, lipids. Osmolality: 1810 Kcal 1,815 Protein (gm) 95 Carbohydrates (gm) 275 Fat (gm) 50 Fluid (mL) 2,050 Fiber (gm) 0 Goal #1 CPN to continue to meet 90-100 % energy and pro needs Goal #2 Wt gain/maintenance Follow-Up By: 06/02/18 Additional Comments Labs in am: Mg UGARTE Phos
--- NOTE | 2018-06-02 12:07 | Progress Note ---
Assessment and Plan Pt status quo. no compl decreased drainage yest to 75 cc/24 hrs Abd soft stable continue present care Selected Entries 06/01/18 06/02/18 06/02/18 11:20 07:29 07:36 Temperature 98.0 F 98.0 F Pulse Rate 81 Pulse Rate [ 97 H Throughout] Respiratory Rate Blood Pressure 148/79 132/61 06/02/18 10:37 Temperature Pulse Rate Pulse Rate [ Throughout] Respiratory 20 Rate Blood Pressure Laboratory Tests 06/01/18 06/02/18 04:02 06:25 Sodium 135 L 133 L Potassium 4.4 4.0 Chloride 102.2 103.0 Carbon Dioxide 24 BUN 10 13 Creatinine 0.2 L 0.2 L Objective Vital Signs - 12hr 06/02/18 06/02/18 06/02/18 00:15 01:48 03:48 Temperature 98.4 F 98.1 F Pulse Rate 83 87 Pulse Rate [ Throughout] Respiratory 18 18 18 Rate Respiratory Rate [ Throughout] Blood Pressure 122/66 131/70 O2 Sat by Pulse 96 98 Oximetry 06/02/18 06/02/18 06/02/18 06:03 07:25 07:29 Temperature 98.0 F Pulse Rate 89 Pulse Rate [ 98 H Throughout] Respiratory 18 18 Rate Respiratory 18 Rate [ Throughout] Blood Pressure 132/61 O2 Sat by Pulse 95 Oximetry 06/02/18 06/02/18 06/02/18 07:36 10:37 11:07 Temperature Pulse Rate Pulse Rate [ 97 H Throughout] Respiratory 20 20 Rate Respiratory 18 Rate [ Throughout] Blood Pressure O2 Sat by Pulse Oximetry - Labs 05/29/18 11:14 06/02/18 06:25 Diabetes panel 06/02/18 Range/Units 06:25 Sodium 133 L (137-145) mmol/L Potassium 4.0 (3.6-5.0) mmol/L Chloride 103.0 (98-107) mmol/L Carbon Dioxide 24 (22-30) mmol/L BUN 13 (7-17) mg/dL Creatinine 0.2 L (0.7-1.2) mg/dL Glucose 101 H (65-100) mg/dL Calcium 8.2 L (8.4-10.2) mg/dL Calcium panel 06/02/18 Range/Units 06:25 Calcium 8.2 L (8.4-10.2) mg/dL Phosphorus 3.50 (2.5-4.5) mg/dL Pituitary panel 06/02/18 Range/Units 06:25 Sodium 133 L (137-145) mmol/L Potassium 4.0 (3.6-5.0) mmol/L Chloride 103.0 (98-107) mmol/L Carbon Dioxide 24 (22-30) mmol/L BUN 13 (7-17) mg/dL Creatinine 0.2 L (0.7-1.2) mg/dL Glucose 101 H (65-100) mg/dL Calcium 8.2 L (8.4-10.2) mg/dL Adrenal panel 06/02/18 Range/Units 06:25 Sodium 133 L (137-145) mmol/L Potassium 4.0 (3.6-5.0) mmol/L Chloride 103.0 (98-107) mmol/L Carbon Dioxide 24 (22-30) mmol/L BUN 13 (7-17) mg/dL Creatinine 0.2 L (0.7-1.2) mg/dL Glucose 101 H (65-100) mg/dL Calcium 8.2 L (8.4-10.2) mg/dL
--- NOTE | 2018-06-02 13:33 | Progress Note ---
Assessment and Plan Patient awake. Weak. Resting on on room air . O2 saturation 96%.No complaint of chest pain, shortness of breath or cough.Patient still complaining some stomach pain. - Patient Problems (1) Appendicitis with perforation Current Visit: Yes Status: Acute Plan to address problem: S/p resection of perforated appendex. (2) Sepsis Current Visit: Yes Status: Acute Qualifiers: Sepsis type: Escherichia coli Qualified Code(s): A41.51 - Sepsis due to Escherichia coli [E. coli] Plan to address problem: Resolved. Patient off the antibiotics. (3) Acute metabolic encephalopathy Current Visit: No Status: Acute Plan to address problem: Appears improved. Management as per primary care. (4) Marijuana abuse Current Visit: No Status: Acute Plan to address problem: Counselled not use marijuana. Subjective Date of service: 06/02/18 Principal diagnosis: Sepsis; Ex-lap appendectomy and evacuation of pelvic abscess; Peritonitis Interval history: Patient awake. Weak. Resting on on room air . O2 saturation 96%.No complaint of chest pain, shortness of breath or cough.Patient still complaining some stomach pain. Objective Vital Signs - 12hr 06/02/18 06/02/18 06/02/18 01:48 03:48 06:03 Temperature 98.1 F Pulse Rate 87 Pulse Rate [ Throughout] Respiratory 18 18 18 Rate Respiratory Rate [ Throughout] Blood Pressure 131/70 O2 Sat by Pulse 98 Oximetry 06/02/18 06/02/18 06/02/18 07:25 07:29 07:36 Temperature 98.0 F Pulse Rate 89 Pulse Rate [ 98 H 97 H Throughout] Respiratory 18 Rate Respiratory 18 18 Rate [ Throughout] Blood Pressure 132/61 O2 Sat by Pulse 95 Oximetry 06/02/18 06/02/18 10:37 11:07 Temperature Pulse Rate Pulse Rate [ Throughout] Respiratory 20 20 Rate Respiratory Rate [ Throughout] Blood Pressure O2 Sat by Pulse Oximetry Constitutional: no acute distress, alert, other (chronically ill looking this middle aged CF, normocephalic) Eyes: non-icteric ENT: oropharynx moist, other (Mallampati 2) Neck: supple, no lymphadenopathy, no JVD Effort: mildly labored Ascultation: Bilateral: diminished breath sounds, rhonchi (scant in bases) Percussion: Bilateral: not dull Cardiovascular: regular rate and rhythm Gastrointestinal: normoactive bowel sounds, soft, tender (bhargav-op site), non- distended, other (Drain in place with non-bloody effluent) Integumentary: other (poor turgor; ? neurofibromatous nodules over body) Extremities: no cyanosis, no edema, pink and warm, pulses normal Neurologic: normal mental status, non-focal exam, pupils equal and round, motor strength normal and Psychiatric: mood appropriate, anxious CBC and BMP: 05/29/18 11:14 06/03/18 05:00 ABG, PT/INR, D-dimer: ABG POC ABG pH 7.367 (7.35-7.45) 04/19/18 00:19 POC ABG pCO2 36.8 (35-45) 04/19/18 00:19 POC ABG pO2 84 (80-105) 04/19/18 00:19 POC ABG HCO3 21.1 04/19/18 00:19 POC ABG Total CO2 22 04/19/18 00:19 POC ABG O2 Sat 96 04/19/18 00:19 PT/INR, D-dimer PT 15.3 Sec. (12.2-14.9) H 04/22/18 05:19 INR 1.17 (0.87-1.13) H 04/22/18 05:19 Abnormal lab findings: Abnormal Labs 04/18/18 04/18/18 04/18/18 14:30 14:30 14:30 WBC 18.6 H RBC Hgb Hct MCH RDW Lymph % (Auto) [place] % (Auto) Lymph # Seg Neutrophils % Seg Neuts % (Manual) 79.0 H Lymphocytes % (Manual) 4.0 L Seg Neutrophils # Man 14.7 H Lymphocytes # (Manual) 0.7 L PT 16.3 H INR 1.27 H VBG pH Sodium 121 L Potassium 3.0 L Chloride 78.0 L Carbon Dioxide BUN Creatinine 0.5 L Glucose 110 H POC Glucose Lactic Acid Calcium Phosphorus Magnesium Total Bilirubin 1.30 H AST 42 H Total Protein Albumin 3.1 L Prealbumin Crossmatch 04/18/18 04/18/18 04/18/18 14:30 14:30 23:59 WBC RBC Hgb Hct MCH RDW 15.8 H Lymph % (Auto) [place] % (Auto) Lymph # Seg Neutrophils % Seg Neuts % (Manual) 78.0 H Lymphocytes % (Manual) 6.0 L Seg Neutrophils # Man Lymphocytes # (Manual) 0.5 L PT INR VBG pH 7.439 H Sodium Potassium Chloride Carbon Dioxide BUN Creatinine Glucose POC Glucose Lactic Acid 3.60 H* Calcium Phosphorus Magnesium Total Bilirubin AST Total Protein Albumin Prealbumin Crossmatch 04/18/18 04/19/18 04/19/18 23:59 05:19 05:19 WBC 15.0 H RBC Hgb Hct MCH RDW 15.3 H Lymph % (Auto) [place] % (Auto) Lymph # Seg Neutrophils % Seg Neuts % (Manual) Lymphocytes % (Manual) 5.0 L Seg Neutrophils # Man 8.3 H Lymphocytes # (Manual) 0.8 L PT INR VBG pH Sodium 130 L D 133 L Potassium 3.5 L 3.3 L Chloride Carbon Dioxide 20 L D BUN Creatinine 0.5 L 0.6 L Glucose 140 H 115 H POC Glucose Lactic Acid Calcium 7.5 L 7.4 L Phosphorus Magnesium Total Bilirubin AST Total Protein 4.4 L D 4.1 L Albumin 2.0 L 1.9 L Prealbumin Crossmatch 04/19/18 04/19/18 04/20/18 05:19 13:05 05:18 WBC RBC Hgb Hct MCH RDW Lymph % (Auto) [place] % (Auto) Lymph # Seg Neutrophils % Seg Neuts % (Manual) Lymphocytes % (Manual) Seg Neutrophils # Man Lymphocytes # (Manual) PT 19.4 H 17.4 H INR 1.59 H 1.38 H VBG pH Sodium Potassium Chloride Carbon Dioxide BUN Creatinine Glucose POC Glucose Lactic Acid Calcium Phosphorus Magnesium Total Bilirubin AST Total Protein Albumin Prealbumin Crossmatch See Detail 04/20/18 04/20/18 04/21/18 13:47 13:47 04:52 WBC RBC 3.29 L 3.10 L Hgb 9.6 L 8.8 L Hct 28.1 L D 26.6 L MCH RDW 15.3 H 15.4 H Lymph % (Auto) 5.6 L [place] % (Auto) Lymph # 0.4 L Seg Neutrophils % 87.3 H Seg Neuts % (Manual) Lymphocytes % (Manual) Seg Neutrophils # Man Lymphocytes # (Manual) PT INR VBG pH Sodium Potassium Chloride Carbon Dioxide BUN Creatinine 0.3 L Glucose 102 H POC Glucose Lactic Acid Calcium 8.0 L Phosphorus Magnesium Total Bilirubin AST Total Protein Albumin Prealbumin Crossmatch 04/21/18 04/22/18 04/22/18 04:52 05:19 05:19 WBC RBC 3.64 L Hgb Hct MCH RDW Lymph % (Auto) 8.5 L [place] % (Auto) 9.9 H Lymph # 0.6 L Seg Neutrophils % 81.0 H Seg Neuts % (Manual) Lymphocytes % (Manual) Seg Neutrophils # Man Lymphocytes # (Manual) PT 15.3 H INR 1.17 H VBG pH Sodium Potassium 3.2 L Chloride Carbon Dioxide BUN Creatinine 0.3 L Glucose POC Glucose Lactic Acid Calcium 7.6 L Phosphorus Magnesium Total Bilirubin AST Total Protein Albumin Prealbumin Crossmatch 04/22/18 04/24/18 04/24/18 05:19 07:19 07:19 WBC RBC Hgb Hct MCH RDW Lymph % (Auto) [place] % (Auto) Lymph # Seg Neutrophils % Seg Neuts % (Manual) Lymphocytes % (Manual) Seg Neutrophils # Man Lymphocytes # (Manual) PT INR VBG pH Sodium Potassium 3.4 L 2.9 L* Chloride Carbon Dioxide BUN Creatinine 0.3 L 0.3 L Glucose 103 H POC Glucose Lactic Acid Calcium 7.7 L 7.5 L Phosphorus Magnesium 1.60 L Total Bilirubin AST Total Protein 4.3 L Albumin 2.2 L Prealbumin Crossmatch 04/24/18 04/25/18 04/25/18 07:23 06:28 06:28 WBC RBC Hgb Hct MCH RDW 15.3 H 15.9 H Lymph % (Auto) 10.1 L [place] % (Auto) Lymph # 0.8 L Seg Neutrophils % 80.6 H Seg Neuts % (Manual) Lymphocytes % (Manual) 9.0 L Seg Neutrophils # Man Lymphocytes # (Manual) 0.7 L PT INR VBG pH Sodium Potassium 3.0 L Chloride Carbon Dioxide BUN 5 L Creatinine 0.2 L Glucose 108 H POC Glucose Lactic Acid Calcium 7.4 L Phosphorus Magnesium Total Bilirubin AST Total Protein 4.6 L Albumin 2.5 L Prealbumin Crossmatch 04/25/18 04/26/18 04/26/18 06:28 05:45 05:45 WBC 11.9 H RBC Hgb Hct MCH RDW 16.2 H Lymph % (Auto) [place] % (Auto) Lymph # Seg Neutrophils % Seg Neuts % (Manual) Lymphocytes % (Manual) Seg Neutrophils # Man Lymphocytes # (Manual) PT INR VBG pH Sodium Potassium Chloride Carbon Dioxide BUN 5 L Creatinine 0.2 L Glucose 119 H POC Glucose Lactic Acid Calcium 7.7 L Phosphorus 2.00 L 2.20 L Magnesium Total Bilirubin AST Total Protein Albumin Prealbumin Crossmatch 04/27/18 04/28/18 04/28/18 05:33 06:00 06:00 WBC 11.2 H RBC Hgb Hct MCH RDW 16.0 H Lymph % (Auto) [place] % (Auto) Lymph # Seg Neutrophils % Seg Neuts % (Manual) 92.0 H Lymphocytes % (Manual) 5.0 L Seg Neutrophils # Man 10.3 H Lymphocytes # (Manual) 0.6 L PT INR VBG pH Sodium Potassium 3.4 L 3.1 L Chloride Carbon Dioxide BUN 6 L 4 L Creatinine 0.2 L 0.2 L Glucose 119 H POC Glucose Lactic Acid Calcium 7.5 L 7.1 L Phosphorus 2.00 L 2.10 L Magnesium 1.50 L Total Bilirubin AST Total Protein 4.3 L Albumin 2.1 L Prealbumin Crossmatch 04/29/18 04/29/18 04/29/18 05:18 05:18 17:49 WBC 12.0 H RBC Hgb Hct MCH RDW 16.0 H Lymph % (Auto) [place] % (Auto) Lymph # Seg Neutrophils % Seg Neuts % (Manual) 87.0 H Lymphocytes % (Manual) 10.0 L Seg Neutrophils # Man 10.4 H Lymphocytes # (Manual) PT INR VBG pH Sodium 135 L Potassium Chloride Carbon Dioxide BUN Creatinine 0.2 L Glucose 120 H POC Glucose 108 H Lactic Acid Calcium 7.5 L Phosphorus Magnesium Total Bilirubin AST Total Protein Albumin Prealbumin Crossmatch 04/30/18 04/30/18 04/30/18 00:03 05:18 05:41 WBC RBC Hgb Hct MCH RDW Lymph % (Auto) [place] % (Auto) Lymph # Seg Neutrophils % Seg Neuts % (Manual) Lymphocytes % (Manual) Seg Neutrophils # Man Lymphocytes # (Manual) PT INR VBG pH Sodium 133 L Potassium Chloride Carbon Dioxide BUN Creatinine 0.2 L Glucose 119 H POC Glucose 112 H 110 H Lactic Acid Calcium 7.5 L Phosphorus Magnesium Total Bilirubin AST Total Protein Albumin Prealbumin Crossmatch 04/30/18 05/01/18 05/01/18 05:41 00:39 04:45 WBC RBC 3.60 L Hgb Hct MCH RDW 16.0 H Lymph % (Auto) [place] % (Auto) Lymph # Seg Neutrophils % Seg Neuts % (Manual) 88.0 H Lymphocytes % (Manual) 8.0 L Seg Neutrophils # Man Lymphocytes # (Manual) 0.7 L PT INR VBG pH Sodium 132 L Potassium Chloride Carbon Dioxide BUN Creatinine 0.2 L Glucose 101 H POC Glucose 119 H Lactic Acid Calcium 7.6 L Phosphorus Magnesium Total Bilirubin AST Total Protein Albumin Prealbumin Crossmatch 05/01/18 05/01/18 05/01/18 06:30 16:09 23:42 WBC RBC Hgb Hct MCH RDW Lymph % (Auto) [place] % (Auto) Lymph # Seg Neutrophils % Seg Neuts % (Manual) Lymphocytes % (Manual) Seg Neutrophils # Man Lymphocytes # (Manual) PT INR VBG pH Sodium Potassium Chloride Carbon Dioxide BUN Creatinine Glucose POC Glucose 126 H 160 H 113 H Lactic Acid Calcium Phosphorus Magnesium Total Bilirubin AST Total Protein Albumin Prealbumin Crossmatch 05/02/18 05/02/18 05/02/18 04:55 06:41 11:53 WBC RBC Hgb Hct MCH RDW Lymph % (Auto) [place] % (Auto) Lymph # Seg Neutrophils % Seg Neuts % (Manual) Lymphocytes % (Manual) Seg Neutrophils # Man Lymphocytes # (Manual) PT INR VBG pH Sodium 134 L Potassium Chloride Carbon Dioxide BUN Creatinine 0.2 L Glucose 113 H POC Glucose 146 H 113 H Lactic Acid Calcium 7.4 L Phosphorus Magnesium Total Bilirubin AST Total Protein Albumin Prealbumin Crossmatch 05/02/18 05/02/18 05/03/18 17:33 23:37 08:46 WBC RBC 3.36 L Hgb 9.7 L Hct 28.7 L MCH RDW 16.3 H Lymph % (Auto) [place] % (Auto) 10.0 H Lymph # Seg Neutrophils % Seg Neuts % (Manual) Lymphocytes % (Manual) Seg Neutrophils # Man Lymphocytes # (Manual) PT INR VBG pH Sodium Potassium Chloride Carbon Dioxide BUN Creatinine Glucose POC Glucose 106 H 123 H Lactic Acid Calcium Phosphorus Magnesium Total Bilirubin AST Total Protein Albumin Prealbumin Crossmatch 05/03/18 05/03/18 05/04/18 11:54 12:15 06:59 WBC RBC Hgb Hct MCH RDW Lymph % (Auto) [place] % (Auto) Lymph # Seg Neutrophils % Seg Neuts % (Manual) Lymphocytes % (Manual) Seg Neutrophils # Man Lymphocytes # (Manual) PT INR VBG pH Sodium 136 L Potassium Chloride Carbon Dioxide BUN Creatinine 0.2 L Glucose 131 H POC Glucose 109 H 161 H Lactic Acid Calcium 7.6 L Phosphorus Magnesium Total Bilirubin AST Total Protein Albumin Prealbumin Crossmatch 05/04/18 05/04/18 05/04/18 07:03 08:02 11:10 WBC RBC 3.52 L Hgb Hct 29.8 L MCH RDW 16.2 H Lymph % (Auto) [place] % (Auto) 8.6 H Lymph # Seg Neutrophils % Seg Neuts % (Manual) Lymphocytes % (Manual) Seg Neutrophils # Man Lymphocytes # (Manual) PT INR VBG pH Sodium 135 L Potassium Chloride Carbon Dioxide BUN Creatinine 0.2 L Glucose 160 H POC Glucose 106 H Lactic Acid Calcium 7.7 L Phosphorus Magnesium Total Bilirubin AST Total Protein Albumin Prealbumin Crossmatch 05/04/18 05/05/18 05/05/18 23:38 11:28 16:55 WBC RBC Hgb Hct MCH RDW Lymph % (Auto) [place] % (Auto) Lymph # Seg Neutrophils % Seg Neuts % (Manual) Lymphocytes % (Manual) Seg Neutrophils # Man Lymphocytes # (Manual) PT INR VBG pH Sodium Potassium Chloride Carbon Dioxide BUN Creatinine Glucose POC Glucose 121 H 119 H 108 H Lactic Acid Calcium Phosphorus Magnesium Total Bilirubin AST Total Protein Albumin Prealbumin Crossmatch 05/05/18 05/06/18 05/06/18 Unknown 05:35 16:40 WBC RBC Hgb Hct MCH RDW Lymph % (Auto) [place] % (Auto) Lymph # Seg Neutrophils % Seg Neuts % (Manual) Lymphocytes % (Manual) Seg Neutrophils # Man Lymphocytes # (Manual) PT INR VBG pH Sodium 135 L 136 L Potassium Chloride 97.9 L Carbon Dioxide BUN Creatinine 0.2 L 0.2 L Glucose 119 H POC Glucose 133 H Lactic Acid Calcium 8.0 L 8.1 L Phosphorus Magnesium Total Bilirubin AST 46 H Total Protein 5.5 L Albumin 2.7 L Prealbumin Crossmatch 05/06/18 05/07/18 05/07/18 22:07 05:38 05:40 WBC RBC Hgb Hct MCH RDW Lymph % (Auto) [place] % (Auto) Lymph # Seg Neutrophils % Seg Neuts % (Manual) Lymphocytes % (Manual) Seg Neutrophils # Man Lymphocytes # (Manual) PT INR VBG pH Sodium 133 L Potassium Chloride Carbon Dioxide BUN Creatinine 0.2 L Glucose POC Glucose 168 H 107 H Lactic Acid Calcium 8.2 L Phosphorus Magnesium Total Bilirubin AST Total Protein Albumin Prealbumin Crossmatch 05/07/18 05/07/18 05/08/18 11:56 18:04 05:38 WBC RBC Hgb Hct MCH RDW 16.3 H Lymph % (Auto) [place] % (Auto) 7.7 H Lymph # Seg Neutrophils % Seg Neuts % (Manual) Lymphocytes % (Manual) Seg Neutrophils # Man Lymphocytes # (Manual) PT INR VBG pH Sodium Potassium Chloride Carbon Dioxide BUN Creatinine Glucose POC Glucose 145 H 125 H Lactic Acid Calcium Phosphorus Magnesium Total Bilirubin AST Total Protein Albumin Prealbumin Crossmatch 05/08/18 05/08/18 05/08/18 05:38 11:35 16:23 WBC RBC Hgb Hct MCH RDW Lymph % (Auto) [place] % (Auto) Lymph # Seg Neutrophils % Seg Neuts % (Manual) Lymphocytes % (Manual) Seg Neutrophils # Man Lymphocytes # (Manual) PT INR VBG pH Sodium 135 L Potassium Chloride Carbon Dioxide BUN Creatinine 0.2 L Glucose POC Glucose 118 H 131 H Lactic Acid Calcium Phosphorus Magnesium Total Bilirubin AST Total Protein Albumin Prealbumin Crossmatch 05/08/18 05/09/18 05/09/18 21:40 05:46 06:15 WBC RBC Hgb Hct MCH RDW Lymph % (Auto) [place] % (Auto) Lymph # Seg Neutrophils % Seg Neuts % (Manual) Lymphocytes % (Manual) Seg Neutrophils # Man Lymphocytes # (Manual) PT INR VBG pH Sodium 135 L Potassium Chloride 97.5 L Carbon Dioxide BUN Creatinine 0.2 L Glucose POC Glucose 110 H 115 H Lactic Acid Calcium Phosphorus Magnesium Total Bilirubin AST Total Protein Albumin Prealbumin Crossmatch 05/09/18 05/09/18 05/10/18 11:28 23:53 06:22 WBC RBC Hgb Hct MCH RDW Lymph % (Auto) [place] % (Auto) Lymph # Seg Neutrophils % Seg Neuts % (Manual) Lymphocytes % (Manual) Seg Neutrophils # Man Lymphocytes # (Manual) PT INR VBG pH Sodium Potassium Chloride Carbon Dioxide BUN Creatinine Glucose POC Glucose 145 H 132 H 149 H Lactic Acid Calcium Phosphorus Magnesium Total Bilirubin AST Total Protein Albumin Prealbumin Crossmatch 05/10/18 05/10/18 05/11/18 16:14 23:24 05:00 WBC RBC Hgb Hct MCH RDW Lymph % (Auto) [place] % (Auto) Lymph # Seg Neutrophils % Seg Neuts % (Manual) Lymphocytes % (Manual) Seg Neutrophils # Man Lymphocytes # (Manual) PT INR VBG pH Sodium Potassium Chloride Carbon Dioxide BUN Creatinine 0.2 L Glucose 113 H POC Glucose 119 H 119 H Lactic Acid Calcium Phosphorus Magnesium Total Bilirubin AST Total Protein Albumin Prealbumin Crossmatch 05/11/18 05/11/18 05/11/18 05:57 11:23 16:29 WBC RBC Hgb Hct MCH RDW Lymph % (Auto) [place] % (Auto) Lymph # Seg Neutrophils % Seg Neuts % (Manual) Lymphocytes % (Manual) Seg Neutrophils # Man Lymphocytes # (Manual) PT INR VBG pH Sodium Potassium Chloride Carbon Dioxide BUN Creatinine Glucose POC Glucose 173 H 143 H 159 H Lactic Acid Calcium Phosphorus Magnesium Total Bilirubin AST Total Protein Albumin Prealbumin Crossmatch 05/12/18 05/12/18 05/12/18 00:47 06:23 11:21 WBC RBC Hgb Hct MCH RDW Lymph % (Auto) [place] % (Auto) Lymph # Seg Neutrophils % Seg Neuts % (Manual) Lymphocytes % (Manual) Seg Neutrophils # Man Lymphocytes # (Manual) PT INR VBG pH Sodium Potassium Chloride Carbon Dioxide BUN Creatinine Glucose POC Glucose 139 H 136 H 116 H Lactic Acid Calcium Phosphorus Magnesium Total Bilirubin AST Total Protein Albumin Prealbumin Crossmatch 05/12/18 05/12/18 05/12/18 17:19 17:22 22:22 WBC RBC Hgb Hct MCH RDW Lymph % (Auto) [place] % (Auto) Lymph # Seg Neutrophils % Seg Neuts % (Manual) Lymphocytes % (Manual) Seg Neutrophils # Man Lymphocytes # (Manual) PT INR VBG pH Sodium Potassium Chloride Carbon Dioxide BUN Creatinine Glucose POC Glucose 329 H 116 H 124 H Lactic Acid Calcium Phosphorus Magnesium Total Bilirubin AST Total Protein Albumin Prealbumin Crossmatch 05/13/18 05/13/18 05/13/18 18:35 22:25 Unknown WBC RBC Hgb Hct MCH RDW Lymph % (Auto) [place] % (Auto) Lymph # Seg Neutrophils % Seg Neuts % (Manual) Lymphocytes % (Manual) Seg Neutrophils # Man Lymphocytes # (Manual) PT INR VBG pH Sodium 136 L Potassium Chloride 97.8 L Carbon Dioxide BUN Creatinine 0.2 L Glucose POC Glucose 137 H 106 H Lactic Acid Calcium Phosphorus Magnesium Total Bilirubin AST 41 H Total Protein Albumin 3.5 L Prealbumin Crossmatch 05/14/18 05/14/18 05/14/18 06:40 06:40 12:48 WBC RBC 3.48 L Hgb 9.8 L Hct 29.1 L MCH RDW 15.6 H Lymph % (Auto) [place] % (Auto) Lymph # Seg Neutrophils % Seg Neuts % (Manual) Lymphocytes % (Manual) Seg Neutrophils # Man Lymphocytes # (Manual) PT INR VBG pH Sodium Potassium Chloride Carbon Dioxide BUN Creatinine 0.2 L Glucose POC Glucose 113 H Lactic Acid Calcium 8.1 L Phosphorus Magnesium Total Bilirubin AST Total Protein Albumin Prealbumin Crossmatch 05/14/18 05/14/18 05/15/18 17:52 22:04 05:10 WBC RBC Hgb Hct MCH RDW Lymph % (Auto) [place] % (Auto) Lymph # Seg Neutrophils % Seg Neuts % (Manual) Lymphocytes % (Manual) Seg Neutrophils # Man Lymphocytes # (Manual) PT INR VBG pH Sodium 135 L Potassium Chloride Carbon Dioxide BUN Creatinine 0.2 L Glucose POC Glucose 106 H 107 H Lactic Acid Calcium 8.2 L Phosphorus Magnesium Total Bilirubin AST Total Protein Albumin Prealbumin Crossmatch 05/15/18 05/15/18 05/15/18 06:24 11:31 16:47 WBC RBC Hgb Hct MCH RDW Lymph % (Auto) [place] % (Auto) Lymph # Seg Neutrophils % Seg Neuts % (Manual) Lymphocytes % (Manual) Seg Neutrophils # Man Lymphocytes # (Manual) PT INR VBG pH Sodium Potassium Chloride Carbon Dioxide BUN Creatinine Glucose POC Glucose 125 H 133 H 135 H Lactic Acid Calcium Phosphorus Magnesium Total Bilirubin AST Total Protein Albumin Prealbumin Crossmatch 05/16/18 05/16/18 05/16/18 00:13 04:30 05:59 WBC RBC Hgb Hct MCH RDW Lymph % (Auto) [place] % (Auto) Lymph # Seg Neutrophils % Seg Neuts % (Manual) Lymphocytes % (Manual) Seg Neutrophils # Man Lymphocytes # (Manual) PT INR VBG pH Sodium Potassium Chloride Carbon Dioxide BUN Creatinine 0.2 L Glucose POC Glucose 132 H 113 H Lactic Acid Calcium Phosphorus Magnesium Total Bilirubin AST Total Protein Albumin Prealbumin Crossmatch 05/16/18 05/16/18 05/17/18 13:03 18:51 05:06 WBC RBC Hgb Hct MCH RDW Lymph % (Auto) [place] % (Auto) Lymph # Seg Neutrophils % Seg Neuts % (Manual) Lymphocytes % (Manual) Seg Neutrophils # Man Lymphocytes # (Manual) PT INR VBG pH Sodium Potassium Chloride Carbon Dioxide BUN Creatinine Glucose POC Glucose 112 H 111 H 128 H Lactic Acid Calcium Phosphorus Magnesium Total Bilirubin AST Total Protein Albumin Prealbumin Crossmatch 05/17/18 05/17/18 05/18/18 06:07 23:54 07:05 WBC RBC Hgb Hct MCH RDW Lymph % (Auto) [place] % (Auto) Lymph # Seg Neutrophils % Seg Neuts % (Manual) Lymphocytes % (Manual) Seg Neutrophils # Man Lymphocytes # (Manual) PT INR VBG pH Sodium 135 L Potassium Chloride Carbon Dioxide BUN Creatinine 0.2 L Glucose 133 H POC Glucose 120 H 119 H Lactic Acid Calcium Phosphorus Magnesium Total Bilirubin AST Total Protein Albumin Prealbumin Crossmatch 05/18/18 05/18/18 05/18/18 07:43 11:29 16:29 WBC RBC Hgb Hct MCH RDW Lymph % (Auto) [place] % (Auto) Lymph # Seg Neutrophils % Seg Neuts % (Manual) Lymphocytes % (Manual) Seg Neutrophils # Man Lymphocytes # (Manual) PT INR VBG pH Sodium Potassium Chloride Carbon Dioxide BUN Creatinine 0.2 L Glucose 117 H POC Glucose 149 H 108 H Lactic Acid Calcium 8.2 L Phosphorus Magnesium Total Bilirubin AST Total Protein Albumin Prealbumin Crossmatch 05/19/18 05/19/18 05/20/18 23:15 Unknown 05:59 WBC RBC Hgb Hct MCH RDW Lymph % (Auto) [place] % (Auto) Lymph # Seg Neutrophils % Seg Neuts % (Manual) Lymphocytes % (Manual) Seg Neutrophils # Man Lymphocytes # (Manual) PT INR VBG pH Sodium 136 L Potassium Chloride Carbon Dioxide BUN Creatinine 0.2 L Glucose POC Glucose 106 H 114 H Lactic Acid Calcium Phosphorus 4.60 H D Magnesium Total Bilirubin AST Total Protein Albumin Prealbumin Crossmatch 05/20/18 05/20/18 05/20/18 06:25 17:52 23:59 WBC RBC Hgb Hct MCH RDW Lymph % (Auto) [place] % (Auto) Lymph # Seg Neutrophils % Seg Neuts % (Manual) Lymphocytes % (Manual) Seg Neutrophils # Man Lymphocytes # (Manual) PT INR VBG pH Sodium 135 L Potassium Chloride Carbon Dioxide BUN Creatinine 0.2 L Glucose 108 H POC Glucose 118 H 186 H Lactic Acid Calcium 8.3 L Phosphorus Magnesium Total Bilirubin AST Total Protein 5.6 L Albumin 2.9 L Prealbumin 0.113 L Crossmatch 05/21/18 05/21/18 05/21/18 04:40 06:36 07:20 WBC RBC 3.40 L Hgb 9.2 L Hct 28.0 L MCH 27 L RDW 16.2 H Lymph % (Auto) [place] % (Auto) 10.3 H Lymph # Seg Neutrophils % Seg Neuts % (Manual) Lymphocytes % (Manual) Seg Neutrophils # Man Lymphocytes # (Manual) PT INR VBG pH Sodium 135 L Potassium Chloride Carbon Dioxide BUN Creatinine < 0.2 L Glucose POC Glucose 138 H Lactic Acid Calcium 8.2 L Phosphorus Magnesium Total Bilirubin AST Total Protein Albumin Prealbumin Crossmatch 05/21/18 05/21/18 05/22/18 11:12 18:17 00:10 WBC RBC Hgb Hct MCH RDW Lymph % (Auto) [place] % (Auto) Lymph # Seg Neutrophils % Seg Neuts % (Manual) Lymphocytes % (Manual) Seg Neutrophils # Man Lymphocytes # (Manual) PT INR VBG pH Sodium Potassium Chloride Carbon Dioxide BUN Creatinine Glucose POC Glucose 137 H 134 H 127 H Lactic Acid Calcium Phosphorus Magnesium Total Bilirubin AST Total Protein Albumin Prealbumin Crossmatch 05/22/18 05/22/18 05/22/18 05:33 05:35 11:31 WBC RBC Hgb Hct MCH RDW Lymph % (Auto) [place] % (Auto) Lymph # Seg Neutrophils % Seg Neuts % (Manual) Lymphocytes % (Manual) Seg Neutrophils # Man Lymphocytes # (Manual) PT INR VBG pH Sodium Potassium Chloride Carbon Dioxide BUN Creatinine 0.2 L Glucose 115 H POC Glucose 135 H 171 H Lactic Acid Calcium 8.3 L Phosphorus Magnesium Total Bilirubin AST Total Protein Albumin Prealbumin Crossmatch 05/23/18 05/23/18 05/23/18 00:29 05:25 11:30 WBC RBC Hgb Hct MCH RDW Lymph % (Auto) [place] % (Auto) Lymph # Seg Neutrophils % Seg Neuts % (Manual) Lymphocytes % (Manual) Seg Neutrophils # Man Lymphocytes # (Manual) PT INR VBG pH Sodium 135 L Potassium Chloride Carbon Dioxide BUN Creatinine 0.2 L Glucose 113 H POC Glucose 157 H 141 H Lactic Acid Calcium 8.2 L Phosphorus Magnesium Total Bilirubin AST Total Protein Albumin Prealbumin Crossmatch 05/24/18 05/24/18 05/24/18 05:40 11:26 17:26 WBC RBC Hgb Hct MCH RDW Lymph % (Auto) [place] % (Auto) Lymph # Seg Neutrophils % Seg Neuts % (Manual) Lymphocytes % (Manual) Seg Neutrophils # Man Lymphocytes # (Manual) PT INR VBG pH Sodium 133 L Potassium Chloride 97.7 L Carbon Dioxide BUN Creatinine 0.2 L Glucose POC Glucose 120 H 113 H Lactic Acid Calcium 8.1 L Phosphorus Magnesium Total Bilirubin AST Total Protein Albumin Prealbumin Crossmatch 05/25/18 05/25/18 05/25/18 05:00 18:30 22:32 WBC RBC Hgb Hct MCH RDW Lymph % (Auto) [place] % (Auto) Lymph # Seg Neutrophils % Seg Neuts % (Manual) Lymphocytes % (Manual) Seg Neutrophils # Man Lymphocytes # (Manual) PT INR VBG pH Sodium 134 L Potassium Chloride 97.2 L Carbon Dioxide BUN Creatinine 0.2 L Glucose POC Glucose 111 H 112 H Lactic Acid Calcium Phosphorus Magnesium Total Bilirubin AST Total Protein Albumin Prealbumin Crossmatch 05/26/18 05/26/18 05/27/18 06:15 12:03 01:31 WBC RBC Hgb Hct MCH RDW Lymph % (Auto) [place] % (Auto) Lymph # Seg Neutrophils % Seg Neuts % (Manual) Lymphocytes % (Manual) Seg Neutrophils # Man Lymphocytes # (Manual) PT INR VBG pH Sodium 136 L Potassium Chloride Carbon Dioxide BUN Creatinine 0.3 L Glucose POC Glucose 121 H 115 H Lactic Acid Calcium Phosphorus Magnesium Total Bilirubin AST Total Protein Albumin Prealbumin Crossmatch 05/27/18 05/27/18 05/27/18 05:27 05:27 06:26 WBC RBC 3.28 L Hgb 8.7 L Hct 26.5 L MCH 27 L RDW 16.3 H Lymph % (Auto) [place] % (Auto) 9.1 H Lymph # Seg Neutrophils % Seg Neuts % (Manual) Lymphocytes % (Manual) Seg Neutrophils # Man Lymphocytes # (Manual) PT INR VBG pH Sodium 134 L Potassium Chloride Carbon Dioxide BUN Creatinine 0.2 L Glucose 106 H POC Glucose 124 H Lactic Acid Calcium 8.2 L Phosphorus Magnesium Total Bilirubin AST Total Protein Albumin Prealbumin Crossmatch 05/27/18 05/27/18 05/28/18 11:46 17:41 05:30 WBC RBC Hgb Hct MCH RDW Lymph % (Auto) [place] % (Auto) Lymph # Seg Neutrophils % Seg Neuts % (Manual) Lymphocytes % (Manual) Seg Neutrophils # Man Lymphocytes # (Manual) PT INR VBG pH Sodium 135 L Potassium Chloride Carbon Dioxide BUN Creatinine 0.2 L Glucose 102 H POC Glucose 115 H 113 H Lactic Acid Calcium 8.2 L Phosphorus Magnesium Total Bilirubin AST Total Protein Albumin Prealbumin Crossmatch 05/28/18 05/28/18 05/28/18 05:44 13:09 17:01 WBC RBC Hgb Hct MCH RDW Lymph % (Auto) [place] % (Auto) Lymph # Seg Neutrophils % Seg Neuts % (Manual) Lymphocytes % (Manual) Seg Neutrophils # Man Lymphocytes # (Manual) PT INR VBG pH Sodium Potassium Chloride Carbon Dioxide BUN Creatinine Glucose POC Glucose 107 H 134 H 122 H Lactic Acid Calcium Phosphorus Magnesium Total Bilirubin AST Total Protein Albumin Prealbumin Crossmatch 05/28/18 05/29/18 05/29/18 23:57 05:05 05:40 WBC RBC Hgb Hct MCH RDW Lymph % (Auto) [place] % (Auto) Lymph # Seg Neutrophils % Seg Neuts % (Manual) Lymphocytes % (Manual) Seg Neutrophils # Man Lymphocytes # (Manual) PT INR VBG pH Sodium Potassium 3.5 L Chloride Carbon Dioxide 21 L BUN Creatinine < 0.2 L Glucose 114 H POC Glucose 111 H 114 H Lactic Acid Calcium 8.0 L Phosphorus 2.20 L D Magnesium Total Bilirubin AST Total Protein Albumin Prealbumin Crossmatch 05/29/18 05/29/18 05/29/18 11:14 11:31 18:06 WBC 3.8 L RBC 3.39 L Hgb 8.9 L Hct 27.7 L MCH 26 L RDW 16.1 H Lymph % (Auto) [place] % (Auto) 12.7 H Lymph # 0.8 L Seg Neutrophils % Seg Neuts % (Manual) Lymphocytes % (Manual) Seg Neutrophils # Man Lymphocytes # (Manual) PT INR VBG pH Sodium Potassium Chloride Carbon Dioxide BUN Creatinine Glucose POC Glucose 178 H 115 H Lactic Acid Calcium Phosphorus Magnesium Total Bilirubin AST Total Protein Albumin Prealbumin Crossmatch 05/29/18 05/30/18 05/30/18 23:54 04:40 05:40 WBC RBC Hgb Hct MCH RDW Lymph % (Auto) [place] % (Auto) Lymph # Seg Neutrophils % Seg Neuts % (Manual) Lymphocytes % (Manual) Seg Neutrophils # Man Lymphocytes # (Manual) PT INR VBG pH Sodium Potassium Chloride 107.5 H Carbon Dioxide 21 L BUN Creatinine 0.2 L Glucose POC Glucose 108 H 121 H Lactic Acid Calcium 8.1 L Phosphorus Magnesium Total Bilirubin AST 48 H Total Protein 5.3 L Albumin 2.5 L Prealbumin Crossmatch 05/30/18 05/31/18 05/31/18 11:53 00:28 06:00 WBC RBC Hgb Hct MCH RDW Lymph % (Auto) [place] % (Auto) Lymph # Seg Neutrophils % Seg Neuts % (Manual) Lymphocytes % (Manual) Seg Neutrophils # Man Lymphocytes # (Manual) PT INR VBG pH Sodium Potassium Chloride Carbon Dioxide BUN Creatinine 0.2 L Glucose POC Glucose 107 H 111 H Lactic Acid Calcium 8.0 L Phosphorus Magnesium Total Bilirubin AST Total Protein Albumin Prealbumin Crossmatch 05/31/18 06/01/18 06/01/18 06:14 00:36 04:02 WBC RBC Hgb Hct MCH RDW Lymph % (Auto) [place] % (Auto) Lymph # Seg Neutrophils % Seg Neuts % (Manual) Lymphocytes % (Manual) Seg Neutrophils # Man Lymphocytes # (Manual) PT INR VBG pH Sodium 135 L Potassium Chloride Carbon Dioxide BUN Creatinine 0.2 L Glucose 115 H POC Glucose 106 H 116 H Lactic Acid Calcium 8.0 L Phosphorus Magnesium Total Bilirubin AST Total Protein Albumin Prealbumin Crossmatch 06/01/18 06/02/18 06/02/18 05:52 00:27 05:41 WBC RBC Hgb Hct MCH RDW Lymph % (Auto) [place] % (Auto) Lymph # Seg Neutrophils % Seg Neuts % (Manual) Lymphocytes % (Manual) Seg Neutrophils # Man Lymphocytes # (Manual) PT INR VBG pH Sodium Potassium Chloride Carbon Dioxide BUN Creatinine Glucose POC Glucose 127 H 111 H 107 H Lactic Acid Calcium Phosphorus Magnesium Total Bilirubin AST Total Protein Albumin Prealbumin Crossmatch 06/02/18 06:25 WBC RBC Hgb Hct MCH RDW Lymph % (Auto) [place] % (Auto) Lymph # Seg Neutrophils % Seg Neuts % (Manual) Lymphocytes % (Manual) Seg Neutrophils # Man Lymphocytes # (Manual) PT INR VBG pH Sodium 133 L Potassium Chloride Carbon Dioxide BUN Creatinine 0.2 L Glucose 101 H POC Glucose Lactic Acid Calcium 8.2 L Phosphorus Magnesium Total Bilirubin AST Total Protein Albumin Prealbumin Crossmatch Allied health notes reviewed: nursing
[2018-06-02] MEDS: ZOFRAN IV PRN (17:30)
[2018-06-02] MEDS ORDERED: TPN ADULT 1,800 ML IV SCH (20:00)
[2018-06-02] MEDS: REMERON PO SCH (22:42)
[2018-06-03] MEDS: DILAUDID IV PRN ×6 (02:19→21:50)
[2018-06-03] MEDS: ZOFRAN IV PRN ×4 (05:37→17:27)
[2018-06-03 06:38] LABS: BUN/Creatinine Ratio 55; Blood Urea Nitrogen 11 mg/dL (7-17); Calcium 8.4 mg/dL (8.4-10.2); Hemolysis Index 0
--- NOTE | 2018-06-03 08:17 | Progress Note ---
Assessment and Plan Pt feeling well. status quo. 50 cc drainage Abd soft, non tender stable Case Management making arrangements for scheduled transfer to Dr. Malik's service in [facility] for next week. continue present care Selected Entries 06/02/18 23:18 Temperature 98.4 F Pulse Rate 96 H Respiratory 17 Rate Blood Pressure 133/67 [Left] Objective Vital Signs - 12hr 06/02/18 06/02/18 06/02/18 22:10 22:20 22:39 Temperature Pulse Rate 96 H Pulse Rate [ 94 H 96 H Throughout] Respiratory Rate Respiratory 18 18 Rate [ Throughout] Blood Pressure 133/67 Blood Pressure [Left] 06/02/18 23:18 Temperature 98.4 F Pulse Rate 96 H Pulse Rate [ Throughout] Respiratory 17 Rate Respiratory Rate [ Throughout] Blood Pressure Blood Pressure 133/67 [Left] - Labs 05/29/18 11:14 06/03/18 05:00 Diabetes panel 06/03/18 Range/Units 05:00 Sodium 136 L (137-145) mmol/L Potassium 4.4 (3.6-5.0) mmol/L Chloride 101.4 (98-107) mmol/L Carbon Dioxide 25 (22-30) mmol/L BUN 11 (7-17) mg/dL Creatinine 0.2 L (0.7-1.2) mg/dL Glucose 85 (65-100) mg/dL Calcium 8.4 (8.4-10.2) mg/dL Calcium panel 06/03/18 Range/Units 05:00 Calcium 8.4 (8.4-10.2) mg/dL Phosphorus 3.70 (2.5-4.5) mg/dL Pituitary panel 06/03/18 Range/Units 05:00 Sodium 136 L (137-145) mmol/L Potassium 4.4 (3.6-5.0) mmol/L Chloride 101.4 (98-107) mmol/L Carbon Dioxide 25 (22-30) mmol/L BUN 11 (7-17) mg/dL Creatinine 0.2 L (0.7-1.2) mg/dL Glucose 85 (65-100) mg/dL Calcium 8.4 (8.4-10.2) mg/dL Adrenal panel 06/03/18 Range/Units 05:00 Sodium 136 L (137-145) mmol/L Potassium 4.4 (3.6-5.0) mmol/L Chloride 101.4 (98-107) mmol/L Carbon Dioxide 25 (22-30) mmol/L BUN 11 (7-17) mg/dL Creatinine 0.2 L (0.7-1.2) mg/dL Glucose 85 (65-100) mg/dL Calcium 8.4 (8.4-10.2) mg/dL
[2018-06-03] MEDS: NEURONTIN PO SCH ×3 (08:48→21:41)
[2018-06-03] MEDS: BROVANA NEBU IH SCH ×2 (09:11→23:07)
[2018-06-03] MEDS: PULMICORT IH SCH ×2 (09:12→23:07)
[2018-06-03] MEDS: LOPRESSOR PO SCH ×2 (09:41→21:41)
[2018-06-03] MEDS: COZAAR PO SCH (09:42)
--- NOTE | 2018-06-03 11:11 | Progress Note ---
Assessment and Plan Patient awake. Weak. Resting on on room air . O2 saturation 96%.No complaint of chest pain, shortness of breath or cough. - Patient Problems (1) Appendicitis with perforation Current Visit: Yes Status: Acute Plan to address problem: S/p resection of perforated appendex. (2) Sepsis Current Visit: Yes Status: Acute Qualifiers: Sepsis type: Escherichia coli Qualified Code(s): A41.51 - Sepsis due to Escherichia coli [E. coli] Plan to address problem: Resolved. Patient off the antibiotics. (3) Acute metabolic encephalopathy Current Visit: No Status: Acute Plan to address problem: Appears improved. Management as per primary care. (4) Marijuana abuse Current Visit: No Status: Acute Plan to address problem: Counselled not use marijuana. Subjective Date of service: 06/03/18 Principal diagnosis: Sepsis; Ex-lap appendectomy and evacuation of pelvic abscess; Peritonitis Interval history: Patient awake. Weak. Resting on on room air . O2 saturation 96%.No complaint of chest pain, shortness of breath or cough. Objective Vital Signs - 12hr 06/02/18 06/03/18 06/03/18 23:18 07:51 09:12 Temperature 98.4 F 97.9 F Pulse Rate 96 H 92 H Pulse Rate [ 103 H Throughout] Respiratory 17 18 Rate Respiratory 20 Rate [ Throughout] Blood Pressure 127/73 Blood Pressure 133/67 [Left] O2 Sat by Pulse 95 Oximetry 06/03/18 06/03/18 06/03/18 09:30 09:40 09:41 Temperature Pulse Rate 92 H Pulse Rate [ 86 Throughout] Respiratory 20 Rate Respiratory 18 Rate [ Throughout] Blood Pressure 127/73 Blood Pressure [Left] O2 Sat by Pulse Oximetry 06/03/18 09:42 Temperature Pulse Rate 92 H Pulse Rate [ Throughout] Respiratory Rate Respiratory Rate [ Throughout] Blood Pressure 127/73 Blood Pressure [Left] O2 Sat by Pulse Oximetry Constitutional: no acute distress, alert, other (chronically ill looking this middle aged CF, normocephalic) Eyes: non-icteric ENT: oropharynx moist, other (Mallampati 2) Neck: supple, no lymphadenopathy, no JVD Effort: mildly labored Ascultation: Bilateral: diminished breath sounds, rhonchi (scant in bases) Percussion: Bilateral: not dull Cardiovascular: regular rate and rhythm Gastrointestinal: normoactive bowel sounds, soft, tender (bhargav-op site), non- distended, other (Drain in place with non-bloody effluent) Integumentary: other (poor turgor; ? neurofibromatous nodules over body) Extremities: no cyanosis, no edema, pink and warm, pulses normal Neurologic: normal mental status, non-focal exam, pupils equal and round, motor strength normal and Psychiatric: mood appropriate, anxious CBC and BMP: 05/29/18 11:14 06/03/18 05:00 ABG, PT/INR, D-dimer: ABG POC ABG pH 7.367 (7.35-7.45) 04/19/18 00:19 POC ABG pCO2 36.8 (35-45) 04/19/18 00:19 POC ABG pO2 84 (80-105) 04/19/18 00:19 POC ABG HCO3 21.1 04/19/18 00:19 POC ABG Total CO2 22 04/19/18 00:19 POC ABG O2 Sat 96 04/19/18 00:19 PT/INR, D-dimer PT 15.3 Sec. (12.2-14.9) H 04/22/18 05:19 INR 1.17 (0.87-1.13) H 04/22/18 05:19 Abnormal lab findings: Abnormal Labs 04/18/18 04/18/18 04/18/18 14:30 14:30 14:30 WBC 18.6 H RBC Hgb Hct MCH RDW Lymph % (Auto) Riley % (Auto) Lymph # Seg Neutrophils % Seg Neuts % (Manual) 79.0 H Lymphocytes % (Manual) 4.0 L Seg Neutrophils # Man 14.7 H Lymphocytes # (Manual) 0.7 L PT 16.3 H INR 1.27 H VBG pH Sodium 121 L Potassium 3.0 L Chloride 78.0 L Carbon Dioxide BUN Creatinine 0.5 L Glucose 110 H POC Glucose Lactic Acid Calcium Phosphorus Magnesium Total Bilirubin 1.30 H AST 42 H Total Protein Albumin 3.1 L Prealbumin Crossmatch 04/18/18 04/18/18 04/18/18 14:30 14:30 23:59 WBC RBC Hgb Hct MCH RDW 15.8 H Lymph % (Auto) Riley % (Auto) Lymph # Seg Neutrophils % Seg Neuts % (Manual) 78.0 H Lymphocytes % (Manual) 6.0 L Seg Neutrophils # Man Lymphocytes # (Manual) 0.5 L PT INR VBG pH 7.439 H Sodium Potassium Chloride Carbon Dioxide BUN Creatinine Glucose POC Glucose Lactic Acid 3.60 H* Calcium Phosphorus Magnesium Total Bilirubin AST Total Protein Albumin Prealbumin Crossmatch 04/18/18 04/19/18 04/19/18 23:59 05:19 05:19 WBC 15.0 H RBC Hgb Hct MCH RDW 15.3 H Lymph % (Auto) Riley % (Auto) Lymph # Seg Neutrophils % Seg Neuts % (Manual) Lymphocytes % (Manual) 5.0 L Seg Neutrophils # Man 8.3 H Lymphocytes # (Manual) 0.8 L PT INR VBG pH Sodium 130 L D 133 L Potassium 3.5 L 3.3 L Chloride Carbon Dioxide 20 L D BUN Creatinine 0.5 L 0.6 L Glucose 140 H 115 H POC Glucose Lactic Acid Calcium 7.5 L 7.4 L Phosphorus Magnesium Total Bilirubin AST Total Protein 4.4 L D 4.1 L Albumin 2.0 L 1.9 L Prealbumin Crossmatch 04/19/18 04/19/18 04/20/18 05:19 13:05 05:18 WBC RBC Hgb Hct MCH RDW Lymph % (Auto) Riley % (Auto) Lymph # Seg Neutrophils % Seg Neuts % (Manual) Lymphocytes % (Manual) Seg Neutrophils # Man Lymphocytes # (Manual) PT 19.4 H 17.4 H INR 1.59 H 1.38 H VBG pH Sodium Potassium Chloride Carbon Dioxide BUN Creatinine Glucose POC Glucose Lactic Acid Calcium Phosphorus Magnesium Total Bilirubin AST Total Protein Albumin Prealbumin Crossmatch See Detail 04/20/18 04/20/18 04/21/18 13:47 13:47 04:52 WBC RBC 3.29 L 3.10 L Hgb 9.6 L 8.8 L Hct 28.1 L D 26.6 L MCH RDW 15.3 H 15.4 H Lymph % (Auto) 5.6 L Riley % (Auto) Lymph # 0.4 L Seg Neutrophils % 87.3 H Seg Neuts % (Manual) Lymphocytes % (Manual) Seg Neutrophils # Man Lymphocytes # (Manual) PT INR VBG pH Sodium Potassium Chloride Carbon Dioxide BUN Creatinine 0.3 L Glucose 102 H POC Glucose Lactic Acid Calcium 8.0 L Phosphorus Magnesium Total Bilirubin AST Total Protein Albumin Prealbumin Crossmatch 04/21/18 04/22/18 04/22/18 04:52 05:19 05:19 WBC RBC 3.64 L Hgb Hct MCH RDW Lymph % (Auto) 8.5 L Riley % (Auto) 9.9 H Lymph # 0.6 L Seg Neutrophils % 81.0 H Seg Neuts % (Manual) Lymphocytes % (Manual) Seg Neutrophils # Man Lymphocytes # (Manual) PT 15.3 H INR 1.17 H VBG pH Sodium Potassium 3.2 L Chloride Carbon Dioxide BUN Creatinine 0.3 L Glucose POC Glucose Lactic Acid Calcium 7.6 L Phosphorus Magnesium Total Bilirubin AST Total Protein Albumin Prealbumin Crossmatch 04/22/18 04/24/18 04/24/18 05:19 07:19 07:19 WBC RBC Hgb Hct MCH RDW Lymph % (Auto) Riley % (Auto) Lymph # Seg Neutrophils % Seg Neuts % (Manual) Lymphocytes % (Manual) Seg Neutrophils # Man Lymphocytes # (Manual) PT INR VBG pH Sodium Potassium 3.4 L 2.9 L* Chloride Carbon Dioxide BUN Creatinine 0.3 L 0.3 L Glucose 103 H POC Glucose Lactic Acid Calcium 7.7 L 7.5 L Phosphorus Magnesium 1.60 L Total Bilirubin AST Total Protein 4.3 L Albumin 2.2 L Prealbumin Crossmatch 04/24/18 04/25/18 04/25/18 07:23 06:28 06:28 WBC RBC Hgb Hct MCH RDW 15.3 H 15.9 H Lymph % (Auto) 10.1 L Riley % (Auto) Lymph # 0.8 L Seg Neutrophils % 80.6 H Seg Neuts % (Manual) Lymphocytes % (Manual) 9.0 L Seg Neutrophils # Man Lymphocytes # (Manual) 0.7 L PT INR VBG pH Sodium Potassium 3.0 L Chloride Carbon Dioxide BUN 5 L Creatinine 0.2 L Glucose 108 H POC Glucose Lactic Acid Calcium 7.4 L Phosphorus Magnesium Total Bilirubin AST Total Protein 4.6 L Albumin 2.5 L Prealbumin Crossmatch 04/25/18 04/26/18 04/26/18 06:28 05:45 05:45 WBC 11.9 H RBC Hgb Hct MCH RDW 16.2 H Lymph % (Auto) Riley % (Auto) Lymph # Seg Neutrophils % Seg Neuts % (Manual) Lymphocytes % (Manual) Seg Neutrophils # Man Lymphocytes # (Manual) PT INR VBG pH Sodium Potassium Chloride Carbon Dioxide BUN 5 L Creatinine 0.2 L Glucose 119 H POC Glucose Lactic Acid Calcium 7.7 L Phosphorus 2.00 L 2.20 L Magnesium Total Bilirubin AST Total Protein Albumin Prealbumin Crossmatch 04/27/18 04/28/18 04/28/18 05:33 06:00 06:00 WBC 11.2 H RBC Hgb Hct MCH RDW 16.0 H Lymph % (Auto) Riley % (Auto) Lymph # Seg Neutrophils % Seg Neuts % (Manual) 92.0 H Lymphocytes % (Manual) 5.0 L Seg Neutrophils # Man 10.3 H Lymphocytes # (Manual) 0.6 L PT INR VBG pH Sodium Potassium 3.4 L 3.1 L Chloride Carbon Dioxide BUN 6 L 4 L Creatinine 0.2 L 0.2 L Glucose 119 H POC Glucose Lactic Acid Calcium 7.5 L 7.1 L Phosphorus 2.00 L 2.10 L Magnesium 1.50 L Total Bilirubin AST Total Protein 4.3 L Albumin 2.1 L Prealbumin Crossmatch 04/29/18 04/29/18 04/29/18 05:18 05:18 17:49 WBC 12.0 H RBC Hgb Hct MCH RDW 16.0 H Lymph % (Auto) Riley % (Auto) Lymph # Seg Neutrophils % Seg Neuts % (Manual) 87.0 H Lymphocytes % (Manual) 10.0 L Seg Neutrophils # Man 10.4 H Lymphocytes # (Manual) PT INR VBG pH Sodium 135 L Potassium Chloride Carbon Dioxide BUN Creatinine 0.2 L Glucose 120 H POC Glucose 108 H Lactic Acid Calcium 7.5 L Phosphorus Magnesium Total Bilirubin AST Total Protein Albumin Prealbumin Crossmatch 04/30/18 04/30/18 04/30/18 00:03 05:18 05:41 WBC RBC Hgb Hct MCH RDW Lymph % (Auto) Riley % (Auto) Lymph # Seg Neutrophils % Seg Neuts % (Manual) Lymphocytes % (Manual) Seg Neutrophils # Man Lymphocytes # (Manual) PT INR VBG pH Sodium 133 L Potassium Chloride Carbon Dioxide BUN Creatinine 0.2 L Glucose 119 H POC Glucose 112 H 110 H Lactic Acid Calcium 7.5 L Phosphorus Magnesium Total Bilirubin AST Total Protein Albumin Prealbumin Crossmatch 04/30/18 05/01/18 05/01/18 05:41 00:39 04:45 WBC RBC 3.60 L Hgb Hct MCH RDW 16.0 H Lymph % (Auto) Riley % (Auto) Lymph # Seg Neutrophils % Seg Neuts % (Manual) 88.0 H Lymphocytes % (Manual) 8.0 L Seg Neutrophils # Man Lymphocytes # (Manual) 0.7 L PT INR VBG pH Sodium 132 L Potassium Chloride Carbon Dioxide BUN Creatinine 0.2 L Glucose 101 H POC Glucose 119 H Lactic Acid Calcium 7.6 L Phosphorus Magnesium Total Bilirubin AST Total Protein Albumin Prealbumin Crossmatch 05/01/18 05/01/18 05/01/18 06:30 16:09 23:42 WBC RBC Hgb Hct MCH RDW Lymph % (Auto) Riley % (Auto) Lymph # Seg Neutrophils % Seg Neuts % (Manual) Lymphocytes % (Manual) Seg Neutrophils # Man Lymphocytes # (Manual) PT INR VBG pH Sodium Potassium Chloride Carbon Dioxide BUN Creatinine Glucose POC Glucose 126 H 160 H 113 H Lactic Acid Calcium Phosphorus Magnesium Total Bilirubin AST Total Protein Albumin Prealbumin Crossmatch 05/02/18 05/02/18 05/02/18 04:55 06:41 11:53 WBC RBC Hgb Hct MCH RDW Lymph % (Auto) Riley % (Auto) Lymph # Seg Neutrophils % Seg Neuts % (Manual) Lymphocytes % (Manual) Seg Neutrophils # Man Lymphocytes # (Manual) PT INR VBG pH Sodium 134 L Potassium Chloride Carbon Dioxide BUN Creatinine 0.2 L Glucose 113 H POC Glucose 146 H 113 H Lactic Acid Calcium 7.4 L Phosphorus Magnesium Total Bilirubin AST Total Protein Albumin Prealbumin Crossmatch 05/02/18 05/02/18 05/03/18 17:33 23:37 08:46 WBC RBC 3.36 L Hgb 9.7 L Hct 28.7 L MCH RDW 16.3 H Lymph % (Auto) Riley % (Auto) 10.0 H Lymph # Seg Neutrophils % Seg Neuts % (Manual) Lymphocytes % (Manual) Seg Neutrophils # Man Lymphocytes # (Manual) PT INR VBG pH Sodium Potassium Chloride Carbon Dioxide BUN Creatinine Glucose POC Glucose 106 H 123 H Lactic Acid Calcium Phosphorus Magnesium Total Bilirubin AST Total Protein Albumin Prealbumin Crossmatch 05/03/18 05/03/18 05/04/18 11:54 12:15 06:59 WBC RBC Hgb Hct MCH RDW Lymph % (Auto) Riley % (Auto) Lymph # Seg Neutrophils % Seg Neuts % (Manual) Lymphocytes % (Manual) Seg Neutrophils # Man Lymphocytes # (Manual) PT INR VBG pH Sodium 136 L Potassium Chloride Carbon Dioxide BUN Creatinine 0.2 L Glucose 131 H POC Glucose 109 H 161 H Lactic Acid Calcium 7.6 L Phosphorus Magnesium Total Bilirubin AST Total Protein Albumin Prealbumin Crossmatch 05/04/18 05/04/18 05/04/18 07:03 08:02 11:10 WBC RBC 3.52 L Hgb Hct 29.8 L MCH RDW 16.2 H Lymph % (Auto) Riley % (Auto) 8.6 H Lymph # Seg Neutrophils % Seg Neuts % (Manual) Lymphocytes % (Manual) Seg Neutrophils # Man Lymphocytes # (Manual) PT INR VBG pH Sodium 135 L Potassium Chloride Carbon Dioxide BUN Creatinine 0.2 L Glucose 160 H POC Glucose 106 H Lactic Acid Calcium 7.7 L Phosphorus Magnesium Total Bilirubin AST Total Protein Albumin Prealbumin Crossmatch 05/04/18 05/05/18 05/05/18 23:38 11:28 16:55 WBC RBC Hgb Hct MCH RDW Lymph % (Auto) Riley % (Auto) Lymph # Seg Neutrophils % Seg Neuts % (Manual) Lymphocytes % (Manual) Seg Neutrophils # Man Lymphocytes # (Manual) PT INR VBG pH Sodium Potassium Chloride Carbon Dioxide BUN Creatinine Glucose POC Glucose 121 H 119 H 108 H Lactic Acid Calcium Phosphorus Magnesium Total Bilirubin AST Total Protein Albumin Prealbumin Crossmatch 05/05/18 05/06/18 05/06/18 Unknown 05:35 16:40 WBC RBC Hgb Hct MCH RDW Lymph % (Auto) Riley % (Auto) Lymph # Seg Neutrophils % Seg Neuts % (Manual) Lymphocytes % (Manual) Seg Neutrophils # Man Lymphocytes # (Manual) PT INR VBG pH Sodium 135 L 136 L Potassium Chloride 97.9 L Carbon Dioxide BUN Creatinine 0.2 L 0.2 L Glucose 119 H POC Glucose 133 H Lactic Acid Calcium 8.0 L 8.1 L Phosphorus Magnesium Total Bilirubin AST 46 H Total Protein 5.5 L Albumin 2.7 L Prealbumin Crossmatch 05/06/18 05/07/18 05/07/18 22:07 05:38 05:40 WBC RBC Hgb Hct MCH RDW Lymph % (Auto) Riley % (Auto) Lymph # Seg Neutrophils % Seg Neuts % (Manual) Lymphocytes % (Manual) Seg Neutrophils # Man Lymphocytes # (Manual) PT INR VBG pH Sodium 133 L Potassium Chloride Carbon Dioxide BUN Creatinine 0.2 L Glucose POC Glucose 168 H 107 H Lactic Acid Calcium 8.2 L Phosphorus Magnesium Total Bilirubin AST Total Protein Albumin Prealbumin Crossmatch 05/07/18 05/07/18 05/08/18 11:56 18:04 05:38 WBC RBC Hgb Hct MCH RDW 16.3 H Lymph % (Auto) Riley % (Auto) 7.7 H Lymph # Seg Neutrophils % Seg Neuts % (Manual) Lymphocytes % (Manual) Seg Neutrophils # Man Lymphocytes # (Manual) PT INR VBG pH Sodium Potassium Chloride Carbon Dioxide BUN Creatinine Glucose POC Glucose 145 H 125 H Lactic Acid Calcium Phosphorus Magnesium Total Bilirubin AST Total Protein Albumin Prealbumin Crossmatch 05/08/18 05/08/18 05/08/18 05:38 11:35 16:23 WBC RBC Hgb Hct MCH RDW Lymph % (Auto) Riley % (Auto) Lymph # Seg Neutrophils % Seg Neuts % (Manual) Lymphocytes % (Manual) Seg Neutrophils # Man Lymphocytes # (Manual) PT INR VBG pH Sodium 135 L Potassium Chloride Carbon Dioxide BUN Creatinine 0.2 L Glucose POC Glucose 118 H 131 H Lactic Acid Calcium Phosphorus Magnesium Total Bilirubin AST Total Protein Albumin Prealbumin Crossmatch 05/08/18 05/09/18 05/09/18 21:40 05:46 06:15 WBC RBC Hgb Hct MCH RDW Lymph % (Auto) Riley % (Auto) Lymph # Seg Neutrophils % Seg Neuts % (Manual) Lymphocytes % (Manual) Seg Neutrophils # Man Lymphocytes # (Manual) PT INR VBG pH Sodium 135 L Potassium Chloride 97.5 L Carbon Dioxide BUN Creatinine 0.2 L Glucose POC Glucose 110 H 115 H Lactic Acid Calcium Phosphorus Magnesium Total Bilirubin AST Total Protein Albumin Prealbumin Crossmatch 05/09/18 05/09/18 05/10/18 11:28 23:53 06:22 WBC RBC Hgb Hct MCH RDW Lymph % (Auto) Riley % (Auto) Lymph # Seg Neutrophils % Seg Neuts % (Manual) Lymphocytes % (Manual) Seg Neutrophils # Man Lymphocytes # (Manual) PT INR VBG pH Sodium Potassium Chloride Carbon Dioxide BUN Creatinine Glucose POC Glucose 145 H 132 H 149 H Lactic Acid Calcium Phosphorus Magnesium Total Bilirubin AST Total Protein Albumin Prealbumin Crossmatch 0305/10/18 05/11/18 16:14 23:24 05:00 WBC RBC Hgb Hct MCH RDW Lymph % (Auto) Riley % (Auto) Lymph # Seg Neutrophils % Seg Neuts % (Manual) Lymphocytes % (Manual) Seg Neutrophils # Man Lymphocytes # (Manual) PT INR VBG pH Sodium Potassium Chloride Carbon Dioxide BUN Creatinine 0.2 L Glucose 113 H POC Glucose 119 H 119 H Lactic Acid Calcium Phosphorus Magnesium Total Bilirubin AST Total Protein Albumin Prealbumin Crossmatch 05/11/18 05/11/18 05/11/18 05:57 11:23 16:29 WBC RBC Hgb Hct MCH RDW Lymph % (Auto) Riley % (Auto) Lymph # Seg Neutrophils % Seg Neuts % (Manual) Lymphocytes % (Manual) Seg Neutrophils # Man Lymphocytes # (Manual) PT INR VBG pH Sodium Potassium Chloride Carbon Dioxide BUN Creatinine Glucose POC Glucose 173 H 143 H 159 H Lactic Acid Calcium Phosphorus Magnesium Total Bilirubin AST Total Protein Albumin Prealbumin Crossmatch 05/12/18 05/12/18 05/12/18 00:47 06:23 11:21 WBC RBC Hgb Hct MCH RDW Lymph % (Auto) Riley % (Auto) Lymph # Seg Neutrophils % Seg Neuts % (Manual) Lymphocytes % (Manual) Seg Neutrophils # Man Lymphocytes # (Manual) PT INR VBG pH Sodium Potassium Chloride Carbon Dioxide BUN Creatinine Glucose POC Glucose 139 H 136 H 116 H Lactic Acid Calcium Phosphorus Magnesium Total Bilirubin AST Total Protein Albumin Prealbumin Crossmatch 05/12/18 05/12/18 05/12/18 17:19 17:22 22:22 WBC RBC Hgb Hct MCH RDW Lymph % (Auto) Riley % (Auto) Lymph # Seg Neutrophils % Seg Neuts % (Manual) Lymphocytes % (Manual) Seg Neutrophils # Man Lymphocytes # (Manual) PT INR VBG pH Sodium Potassium Chloride Carbon Dioxide BUN Creatinine Glucose POC Glucose 329 H 116 H 124 H Lactic Acid Calcium Phosphorus Magnesium Total Bilirubin AST Total Protein Albumin Prealbumin Crossmatch 05/13/18 05/13/18 05/13/18 18:35 22:25 Unknown WBC RBC Hgb Hct MCH RDW Lymph % (Auto) Riley % (Auto) Lymph # Seg Neutrophils % Seg Neuts % (Manual) Lymphocytes % (Manual) Seg Neutrophils # Man Lymphocytes # (Manual) PT INR VBG pH Sodium 136 L Potassium Chloride 97.8 L Carbon Dioxide BUN Creatinine 0.2 L Glucose POC Glucose 137 H 106 H Lactic Acid Calcium Phosphorus Magnesium Total Bilirubin AST 41 H Total Protein Albumin 3.5 L Prealbumin Crossmatch 05/14/18 05/14/18 05/14/18 06:40 06:40 12:48 WBC RBC 3.48 L Hgb 9.8 L Hct 29.1 L MCH RDW 15.6 H Lymph % (Auto) Riley % (Auto) Lymph # Seg Neutrophils % Seg Neuts % (Manual) Lymphocytes % (Manual) Seg Neutrophils # Man Lymphocytes # (Manual) PT INR VBG pH Sodium Potassium Chloride Carbon Dioxide BUN Creatinine 0.2 L Glucose POC Glucose 113 H Lactic Acid Calcium 8.1 L Phosphorus Magnesium Total Bilirubin AST Total Protein Albumin Prealbumin Crossmatch 05/14/18 05/14/18 05/15/18 17:52 22:04 05:10 WBC RBC Hgb Hct MCH RDW Lymph % (Auto) Riley % (Auto) Lymph # Seg Neutrophils % Seg Neuts % (Manual) Lymphocytes % (Manual) Seg Neutrophils # Man Lymphocytes # (Manual) PT INR VBG pH Sodium 135 L Potassium Chloride Carbon Dioxide BUN Creatinine 0.2 L Glucose POC Glucose 106 H 107 H Lactic Acid Calcium 8.2 L Phosphorus Magnesium Total Bilirubin AST Total Protein Albumin Prealbumin Crossmatch 05/15/18 05/15/18 05/15/18 06:24 11:31 16:47 WBC RBC Hgb Hct MCH RDW Lymph % (Auto) Riley % (Auto) Lymph # Seg Neutrophils % Seg Neuts % (Manual) Lymphocytes % (Manual) Seg Neutrophils # Man Lymphocytes # (Manual) PT INR VBG pH Sodium Potassium Chloride Carbon Dioxide BUN Creatinine Glucose POC Glucose 125 H 133 H 135 H Lactic Acid Calcium Phosphorus Magnesium Total Bilirubin AST Total Protein Albumin Prealbumin Crossmatch 05/16/18 05/16/18 05/16/18 00:13 04:30 05:59 WBC RBC Hgb Hct MCH RDW Lymph % (Auto) Riley % (Auto) Lymph # Seg Neutrophils % Seg Neuts % (Manual) Lymphocytes % (Manual) Seg Neutrophils # Man Lymphocytes # (Manual) PT INR VBG pH Sodium Potassium Chloride Carbon Dioxide BUN Creatinine 0.2 L Glucose POC Glucose 132 H 113 H Lactic Acid Calcium Phosphorus Magnesium Total Bilirubin AST Total Protein Albumin Prealbumin Crossmatch 05/16/18 05/16/18 05/17/18 13:03 18:51 05:06 WBC RBC Hgb Hct MCH RDW Lymph % (Auto) Riley % (Auto) Lymph # Seg Neutrophils % Seg Neuts % (Manual) Lymphocytes % (Manual) Seg Neutrophils # Man Lymphocytes # (Manual) PT INR VBG pH Sodium Potassium Chloride Carbon Dioxide BUN Creatinine Glucose POC Glucose 112 H 111 H 128 H Lactic Acid Calcium Phosphorus Magnesium Total Bilirubin AST Total Protein Albumin Prealbumin Crossmatch 05/17/18 05/17/18 05/18/18 06:07 23:54 07:05 WBC RBC Hgb Hct MCH RDW Lymph % (Auto) Riley % (Auto) Lymph # Seg Neutrophils % Seg Neuts % (Manual) Lymphocytes % (Manual) Seg Neutrophils # Man Lymphocytes # (Manual) PT INR VBG pH Sodium 135 L Potassium Chloride Carbon Dioxide BUN Creatinine 0.2 L Glucose 133 H POC Glucose 120 H 119 H Lactic Acid Calcium Phosphorus Magnesium Total Bilirubin AST Total Protein Albumin Prealbumin Crossmatch 05/18/18 05/18/18 05/18/18 07:43 11:29 16:29 WBC RBC Hgb Hct MCH RDW Lymph % (Auto) Riley % (Auto) Lymph # Seg Neutrophils % Seg Neuts % (Manual) Lymphocytes % (Manual) Seg Neutrophils # Man Lymphocytes # (Manual) PT INR VBG pH Sodium Potassium Chloride Carbon Dioxide BUN Creatinine 0.2 L Glucose 117 H POC Glucose 149 H 108 H Lactic Acid Calcium 8.2 L Phosphorus Magnesium Total Bilirubin AST Total Protein Albumin Prealbumin Crossmatch 05/19/18 05/19/18 05/20/18 23:15 Unknown 05:59 WBC RBC Hgb Hct MCH RDW Lymph % (Auto) Riley % (Auto) Lymph # Seg Neutrophils % Seg Neuts % (Manual) Lymphocytes % (Manual) Seg Neutrophils # Man Lymphocytes # (Manual) PT INR VBG pH Sodium 136 L Potassium Chloride Carbon Dioxide BUN Creatinine 0.2 L Glucose POC Glucose 106 H 114 H Lactic Acid Calcium Phosphorus 4.60 H D Magnesium Total Bilirubin AST Total Protein Albumin Prealbumin Crossmatch 05/20/18 05/20/18 05/20/18 06:25 17:52 23:59 WBC RBC Hgb Hct MCH RDW Lymph % (Auto) Riley % (Auto) Lymph # Seg Neutrophils % Seg Neuts % (Manual) Lymphocytes % (Manual) Seg Neutrophils # Man Lymphocytes # (Manual) PT INR VBG pH Sodium 135 L Potassium Chloride Carbon Dioxide BUN Creatinine 0.2 L Glucose 108 H POC Glucose 118 H 186 H Lactic Acid Calcium 8.3 L Phosphorus Magnesium Total Bilirubin AST Total Protein 5.6 L Albumin 2.9 L Prealbumin 0.113 L Crossmatch 05/21/18 05/21/18 05/21/18 04:40 06:36 07:20 WBC RBC 3.40 L Hgb 9.2 L Hct 28.0 L MCH 27 L RDW 16.2 H Lymph % (Auto) Riley % (Auto) 10.3 H Lymph # Seg Neutrophils % Seg Neuts % (Manual) Lymphocytes % (Manual) Seg Neutrophils # Man Lymphocytes # (Manual) PT INR VBG pH Sodium 135 L Potassium Chloride Carbon Dioxide BUN Creatinine < 0.2 L Glucose POC Glucose 138 H Lactic Acid Calcium 8.2 L Phosphorus Magnesium Total Bilirubin AST Total Protein Albumin Prealbumin Crossmatch 05/21/18 05/21/18 05/22/18 11:12 18:17 00:10 WBC RBC Hgb Hct MCH RDW Lymph % (Auto) Riley % (Auto) Lymph # Seg Neutrophils % Seg Neuts % (Manual) Lymphocytes % (Manual) Seg Neutrophils # Man Lymphocytes # (Manual) PT INR VBG pH Sodium Potassium Chloride Carbon Dioxide BUN Creatinine Glucose POC Glucose 137 H 134 H 127 H Lactic Acid Calcium Phosphorus Magnesium Total Bilirubin AST Total Protein Albumin Prealbumin Crossmatch 05/22/18 05/22/18 05/22/18 05:33 05:35 11:31 WBC RBC Hgb Hct MCH RDW Lymph % (Auto) Riley % (Auto) Lymph # Seg Neutrophils % Seg Neuts % (Manual) Lymphocytes % (Manual) Seg Neutrophils # Man Lymphocytes # (Manual) PT INR VBG pH Sodium Potassium Chloride Carbon Dioxide BUN Creatinine 0.2 L Glucose 115 H POC Glucose 135 H 171 H Lactic Acid Calcium 8.3 L Phosphorus Magnesium Total Bilirubin AST Total Protein Albumin Prealbumin Crossmatch 05/23/18 05/23/18 05/23/18 00:29 05:25 11:30 WBC RBC Hgb Hct MCH RDW Lymph % (Auto) Riley % (Auto) Lymph # Seg Neutrophils % Seg Neuts % (Manual) Lymphocytes % (Manual) Seg Neutrophils # Man Lymphocytes # (Manual) PT INR VBG pH Sodium 135 L Potassium Chloride Carbon Dioxide BUN Creatinine 0.2 L Glucose 113 H POC Glucose 157 H 141 H Lactic Acid Calcium 8.2 L Phosphorus Magnesium Total Bilirubin AST Total Protein Albumin Prealbumin Crossmatch 05/24/18 05/24/18 05/24/18 05:40 11:26 17:26 WBC RBC Hgb Hct MCH RDW Lymph % (Auto) Riley % (Auto) Lymph # Seg Neutrophils % Seg Neuts % (Manual) Lymphocytes % (Manual) Seg Neutrophils # Man Lymphocytes # (Manual) PT INR VBG pH Sodium 133 L Potassium Chloride 97.7 L Carbon Dioxide BUN Creatinine 0.2 L Glucose POC Glucose 120 H 113 H Lactic Acid Calcium 8.1 L Phosphorus Magnesium Total Bilirubin AST Total Protein Albumin Prealbumin Crossmatch 05/25/18 05/25/18 05/25/18 05:00 18:30 22:32 WBC RBC Hgb Hct MCH RDW Lymph % (Auto) Riley % (Auto) Lymph # Seg Neutrophils % Seg Neuts % (Manual) Lymphocytes % (Manual) Seg Neutrophils # Man Lymphocytes # (Manual) PT INR VBG pH Sodium 134 L Potassium Chloride 97.2 L Carbon Dioxide BUN Creatinine 0.2 L Glucose POC Glucose 111 H 112 H Lactic Acid Calcium Phosphorus Magnesium Total Bilirubin AST Total Protein Albumin Prealbumin Crossmatch 05/26/18 05/26/18 05/27/18 06:15 12:03 01:31 WBC RBC Hgb Hct MCH RDW Lymph % (Auto) Riley % (Auto) Lymph # Seg Neutrophils % Seg Neuts % (Manual) Lymphocytes % (Manual) Seg Neutrophils # Man Lymphocytes # (Manual) PT INR VBG pH Sodium 136 L Potassium Chloride Carbon Dioxide BUN Creatinine 0.3 L Glucose POC Glucose 121 H 115 H Lactic Acid Calcium Phosphorus Magnesium Total Bilirubin AST Total Protein Albumin Prealbumin Crossmatch 05/27/18 05/27/18 05/27/18 05:27 05:27 06:26 WBC RBC 3.28 L Hgb 8.7 L Hct 26.5 L MCH 27 L RDW 16.3 H Lymph % (Auto) Riley % (Auto) 9.1 H Lymph # Seg Neutrophils % Seg Neuts % (Manual) Lymphocytes % (Manual) Seg Neutrophils # Man Lymphocytes # (Manual) PT INR VBG pH Sodium 134 L Potassium Chloride Carbon Dioxide BUN Creatinine 0.2 L Glucose 106 H POC Glucose 124 H Lactic Acid Calcium 8.2 L Phosphorus Magnesium Total Bilirubin AST Total Protein Albumin Prealbumin Crossmatch 0305/27/18 05/28/18 11:46 17:41 05:30 WBC RBC Hgb Hct MCH RDW Lymph % (Auto) [place] % (Auto) Lymph # Seg Neutrophils % Seg Neuts % (Manual) Lymphocytes % (Manual) Seg Neutrophils # Man Lymphocytes # (Manual) PT INR VBG pH Sodium 135 L Potassium Chloride Carbon Dioxide BUN Creatinine 0.2 L Glucose 102 H POC Glucose 115 H 113 H Lactic Acid Calcium 8.2 L Phosphorus Magnesium Total Bilirubin AST Total Protein Albumin Prealbumin Crossmatch 05/28/18 05/28/18 05/28/18 05:44 13:09 17:01 WBC RBC Hgb Hct MCH RDW Lymph % (Auto) [place] % (Auto) Lymph # Seg Neutrophils % Seg Neuts % (Manual) Lymphocytes % (Manual) Seg Neutrophils # Man Lymphocytes # (Manual) PT INR VBG pH Sodium Potassium Chloride Carbon Dioxide BUN Creatinine Glucose POC Glucose 107 H 134 H 122 H Lactic Acid Calcium Phosphorus Magnesium Total Bilirubin AST Total Protein Albumin Prealbumin Crossmatch 05/28/18 05/29/18 05/29/18 23:57 05:05 05:40 WBC RBC Hgb Hct MCH RDW Lymph % (Auto) [place] % (Auto) Lymph # Seg Neutrophils % Seg Neuts % (Manual) Lymphocytes % (Manual) Seg Neutrophils # Man Lymphocytes # (Manual) PT INR VBG pH Sodium Potassium 3.5 L Chloride Carbon Dioxide 21 L BUN Creatinine < 0.2 L Glucose 114 H POC Glucose 111 H 114 H Lactic Acid Calcium 8.0 L Phosphorus 2.20 L D Magnesium Total Bilirubin AST Total Protein Albumin Prealbumin Crossmatch 05/29/18 05/29/18 05/29/18 11:14 11:31 18:06 WBC 3.8 L RBC 3.39 L Hgb 8.9 L Hct 27.7 L MCH 26 L RDW 16.1 H Lymph % (Auto) [place] % (Auto) 12.7 H Lymph # 0.8 L Seg Neutrophils % Seg Neuts % (Manual) Lymphocytes % (Manual) Seg Neutrophils # Man Lymphocytes # (Manual) PT INR VBG pH Sodium Potassium Chloride Carbon Dioxide BUN Creatinine Glucose POC Glucose 178 H 115 H Lactic Acid Calcium Phosphorus Magnesium Total Bilirubin AST Total Protein Albumin Prealbumin Crossmatch 05/29/18 05/30/18 05/30/18 23:54 04:40 05:40 WBC RBC Hgb Hct MCH RDW Lymph % (Auto) [place] % (Auto) Lymph # Seg Neutrophils % Seg Neuts % (Manual) Lymphocytes % (Manual) Seg Neutrophils # Man Lymphocytes # (Manual) PT INR VBG pH Sodium Potassium Chloride 107.5 H Carbon Dioxide 21 L BUN Creatinine 0.2 L Glucose POC Glucose 108 H 121 H Lactic Acid Calcium 8.1 L Phosphorus Magnesium Total Bilirubin AST 48 H Total Protein 5.3 L Albumin 2.5 L Prealbumin Crossmatch 05/30/18 05/31/18 05/31/18 11:53 00:28 06:00 WBC RBC Hgb Hct MCH RDW Lymph % (Auto) [place] % (Auto) Lymph # Seg Neutrophils % Seg Neuts % (Manual) Lymphocytes % (Manual) Seg Neutrophils # Man Lymphocytes # (Manual) PT INR VBG pH Sodium Potassium Chloride Carbon Dioxide BUN Creatinine 0.2 L Glucose POC Glucose 107 H 111 H Lactic Acid Calcium 8.0 L Phosphorus Magnesium Total Bilirubin AST Total Protein Albumin Prealbumin Crossmatch 05/31/18 06/01/18 06/01/18 06:14 00:36 04:02 WBC RBC Hgb Hct MCH RDW Lymph % (Auto) [place] % (Auto) Lymph # Seg Neutrophils % Seg Neuts % (Manual) Lymphocytes % (Manual) Seg Neutrophils # Man Lymphocytes # (Manual) PT INR VBG pH Sodium 135 L Potassium Chloride Carbon Dioxide BUN Creatinine 0.2 L Glucose 115 H POC Glucose 106 H 116 H Lactic Acid Calcium 8.0 L Phosphorus Magnesium Total Bilirubin AST Total Protein Albumin Prealbumin Crossmatch 06/01/18 06/02/18 06/02/18 05:52 00:27 05:41 WBC RBC Hgb Hct MCH RDW Lymph % (Auto) [place] % (Auto) Lymph # Seg Neutrophils % Seg Neuts % (Manual) Lymphocytes % (Manual) Seg Neutrophils # Man Lymphocytes # (Manual) PT INR VBG pH Sodium Potassium Chloride Carbon Dioxide BUN Creatinine Glucose POC Glucose 127 H 111 H 107 H Lactic Acid Calcium Phosphorus Magnesium Total Bilirubin AST Total Protein Albumin Prealbumin Crossmatch 06/02/18 06/03/18 06:25 05:00 WBC RBC Hgb Hct MCH RDW Lymph % (Auto) [place] % (Auto) Lymph # Seg Neutrophils % Seg Neuts % (Manual) Lymphocytes % (Manual) Seg Neutrophils # Man Lymphocytes # (Manual) PT INR VBG pH Sodium 133 L 136 L Potassium Chloride Carbon Dioxide BUN Creatinine 0.2 L 0.2 L Glucose 101 H POC Glucose Lactic Acid Calcium 8.2 L Phosphorus Magnesium Total Bilirubin AST Total Protein Albumin Prealbumin Crossmatch Allied health notes reviewed: nursing
[2018-06-03] MEDS: XANAX PO PRN (11:50)
--- NOTE | 2018-06-03 15:10 | Progress Note ---
Assessment and Plan Assessment and plan: The patient is a 57-year-old female with hypertension, neurofibromatosis, hepatitis C, COPD, nicotine dependence presented to the emergency room on 04/18/18 with complaints of abdominal pain going on for [address] scan obtained in the emergency room revealed a ruptured appendix with associated intra-abdominal abscess. General surgery was consulted and the patient underwent an emergent exploratory laparotomy with evacuation of pelvic abscess. She was noted to have a gangrenous, perforated appendix eroding including into the small bowel. As per the op note, the abscess could not be drained as the entire abscess and inflammatory process had trapped the small bowel, which was mobilized and she underwent an ileocolic anastomosis. The patient went back to the OR on 04/25/18 for drain dislodgment. * Continue local wound care and TPN * Surgical culture grew Ecoli and ester, completed treatment * CT abdomen: 05/18/18- Still shows minimal drainage, per surgery repeat CT of abd & pelvis with PO contrast done 05/25/18 showed no acute change - started on clear liquid but continue to abdominal pain and high drainage suspicion for non healing perforation, may need terciary center transfer * Urology was consulted for possible entro-vesico fistula due to the color of the urine, cystogram was normal. * Insurance denies LTAC, recommends SNF. Both Patient refuses SNF /Sepsis Etiology secondary to gangrenous and perforated appendix causing intra- abdominal/pelvic abscess. Patient is status post exploratory laparotomy with appendectomy and evacuation of pelvic abscess. Now off antibiotics and noted ID signed off. No fever off antibiotics. /Perforated appendix s/p exploratory lap Cont. TPN, started on clear liquid diet which increased drainage, suspicion for non healing perforation s/p repeat CT abdomen/pelvis on 05/25/18 recommended transfer to tertiary center - reference sent for [facility], but they do not have a bed. patient still having significant drainage ~ 200cc/day /Chronic hep C. Untreated. Outpatient follow-up. /Accel Hypertension. continue Cozaar to 100mg. Cont. Hydralazine prn. /Diarrhea: s/p lmodium prn x 1 /Tachycardia: secondary to dehydration and deconditioning. Fluids to be given and also started Low dose BB. /COPD. Compensated. nebs as needed /Neurofibromatosis: outpt follow up /Tobacco abuse. Patient counseled on smoking cessation FOR 15 MINS, Patient verbalized understanding and will think about it. 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 continue with TPN, npo now /Hypotension-resolved BP better, Disposition - Not stable for discharge. History Interval history: Less abd pain No fever Insomnia - she says Remeron not working Hospitalist Physical - Physical exam Narrative exam: GEN: Not in acute distress, lying in bed, ill looking, malnourished HEENT: Normocephalic, atraumatic Neck: supple, No JVD Lungs: Clear to auscultation bilaterally, no wheeze Heart:S1 and S2 regular, no murmurs, rubs or gallop, Abd:soft, mild tender, dressing over abdomen, Ext: No edema, no clubbing or cyanosis Neuro: AAO x 3, moves all extremities, no focal neurological signs - Constitutional Vitals: Temp Pulse Resp BP Pulse Ox 98.3 F 87 20 140/71 97 06/03/18 12:29 06/03/18 12:29 06/03/18 13:28 06/03/18 12:29 06/03/18 12:29 General appearance: Present: no acute distress, cachectic, other (temporal wasting scaphoid abdomen.) Results - Labs CBC & Chem 7: 05/29/18 11:14 06/03/18 05:00 Labs: Laboratory Last Values WBC 3.8 K/mm3 (4.5-11.0) L 05/29/18 11:14 RBC 3.39 M/mm3 (3.65-5.03) L 05/29/18 11:14 Hgb 8.9 gm/dl (10.1-14.3) L 05/29/18 11:14 Hct 27.7 % (30.3-42.9) L 05/29/18 11:14 MCV 82 fl (79-97) 05/29/18 11:14 MCH 26 pg (28-32) L 05/29/18 11:14 MCHC 32 % (30-34) 05/29/18 11:14 RDW 16.1 % (13.2-15.2) H 05/29/18 11:14 Plt Count 154 K/mm3 (140-440) 05/29/18 11:14 Lymph % (Auto) 22.4 % (13.4-35.0) 05/29/18 11:14 [place] % (Auto) 12.7 % (0.0-7.3) H 05/29/18 11:14 Eos % (Auto) 0.4 % (0.0-4.3) 05/29/18 11:14 Baso % (Auto) 0.3 % (0.0-1.8) 05/29/18 11:14 Lymph # 0.8 K/mm3 (1.2-5.4) L 05/29/18 11:14 [place] # 0.5 K/mm3 (0.0-0.8) 05/29/18 11:14 Eos # 0.0 K/mm3 (0.0-0.4) 05/29/18 11:14 Baso # 0.0 K/mm3 (0.0-0.1) 05/29/18 11:14 Add Manual Diff Complete 04/30/18 05:41 Total Counted 100 04/30/18 05:41 Seg Neutrophils % 64.2 % (40.0-70.0) 05/29/18 11:14 Seg Neuts % (Manual) 88.0 % (40.0-70.0) H 04/30/18 05:41 Band Neutrophils % 1.0 % 04/30/18 05:41 Lymphocytes % (Manual) 8.0 % (13.4-35.0) L 04/30/18 05:41 Reactive Lymphs % (Man) 0 % 04/30/18 05:41 Monocytes % (Manual) 3.0 % (0.0-7.3) 04/30/18 05:41 Eosinophils % (Manual) 0 % (0.0-4.3) 04/30/18 05:41 Basophils % (Manual) 0 % (0.0-1.8) 04/30/18 05:41 Metamyelocytes % 0 % 04/30/18 05:41 Myelocytes % 0 % 04/30/18 05:41 Promyelocytes % 0 % 04/30/18 05:41 Blast Cells % 0 % 04/30/18 05:41 Nucleated RBC % Not Reportable 04/30/18 05:41 Seg Neutrophils # 2.4 K/mm3 (1.8-7.7) 05/29/18 11:14 Seg Neutrophils # Man 7.7 K/mm3 (1.8-7.7) 04/30/18 05:41 Band Neutrophils # 0.1 K/mm3 04/30/18 05:41 Lymphocytes # (Manual) 0.7 K/mm3 (1.2-5.4) L 04/30/18 05:41 Abs React Lymphs (Man) 0.0 K/mm3 04/30/18 05:41 Monocytes # (Manual) 0.3 K/mm3 (0.0-0.8) 04/30/18 05:41 Eosinophils # (Manual) 0.0 K/mm3 (0.0-0.4) 04/30/18 05:41 Basophils # (Manual) 0.0 K/mm3 (0.0-0.1) 04/30/18 05:41 Metamyelocytes # 0.0 K/mm3 04/30/18 05:41 Myelocytes # 0.0 K/mm3 04/30/18 05:41 Promyelocytes # 0.0 K/mm3 04/30/18 05:41 Blast Cells # 0.0 K/mm3 04/30/18 05:41 WBC Morphology Not Reportable 04/30/18 05:41 Hypersegmented Neuts Not Reportable 04/30/18 05:41 Hyposegmented Neuts Not Reportable 04/30/18 05:41 Hypogranular Neuts Not Reportable 04/30/18 05:41 Smudge Cells Not Reportable 04/30/18 05:41 Toxic Granulation Not Reportable 04/30/18 05:41 Toxic Vacuolation Not Reportable 04/30/18 05:41 Dohle Bodies Not Reportable 04/30/18 05:41 Pelger-Huet Anomaly Not Reportable 04/30/18 05:41 Nicole Rods Not Reportable 04/30/18 05:41 Platelet Estimate Appears normal 04/30/18 05:41 Clumped Platelets Not Reportable 04/30/18 05:41 Plt Clumps, EDTA Not Reportable 04/30/18 05:41 Large Platelets Not Reportable 04/30/18 05:41 Giant Platelets Not Reportable 04/30/18 05:41 Platelet Satelliting Not Reportable 04/30/18 05:41 Plt Morphology Comment Not Reportable 04/30/18 05:41 RBC Morphology Not Reportable 04/30/18 05:41 Dimorphic RBCs Not Reportable 04/30/18 05:41 Polychromasia Not Reportable 04/30/18 05:41 Hypochromasia 1+ 04/30/18 05:41 Poikilocytosis Not Reportable 04/30/18 05:41 Anisocytosis 1+ 04/30/18 05:41 Microcytosis Not Reportable 04/30/18 05:41 Macrocytosis Not Reportable 04/30/18 05:41 Spherocytes Not Reportable 04/30/18 05:41 Pappenheimer Bodies Not Reportable 04/30/18 05:41 Sickle Cells Not Reportable 04/30/18 05:41 Target Cells Not Reportable 04/30/18 05:41 Tear Drop Cells Not Reportable 04/30/18 05:41 Ovalocytes Few 04/30/18 05:41 Stomatocytes Few 04/29/18 05:18 Helmet Cells Not Reportable 04/30/18 05:41 [place] Bodies Not Reportable 04/30/18 05:41 [place] Rings Not Reportable 04/30/18 05:41 Fenton Cells Not Reportable 04/30/18 05:41 Bite Cells Not Reportable 04/30/18 05:41 Crenated Cell Not Reportable 04/30/18 05:41 Elliptocytes Not Reportable 04/30/18 05:41 Acanthocytes (Spur) Not Reportable 04/30/18 05:41 Rouleaux Not Reportable 04/30/18 05:41 Hemoglobin C Crystals Not Reportable 04/30/18 05:41 Schistocytes Not Reportable 04/30/18 05:41 Malaria parasites Not Reportable 04/30/18 05:41 Hung Bodies Not Reportable 04/30/18 05:41 Hem Pathologist Commnt No 04/30/18 05:41 PT 15.3 Sec. (12.2-14.9) H 04/22/18 05:19 INR 1.17 (0.87-1.13) H 04/22/18 05:19 APTT 29.4 Sec. (24.2-36.6) 04/19/18 05:19 POC ABG pH 7.367 (7.35-7.45) 04/19/18 00:19 POC ABG pCO2 36.8 (35-45) 04/19/18 00:19 POC ABG pO2 84 (80-105) 04/19/18 00:19 POC ABG HCO3 21.1 04/19/18 00:19 POC ABG Total CO2 22 04/19/18 00:19 POC ABG O2 Sat 96 04/19/18 00:19 POC ABG Base Excess -4 04/19/18 00:19 VBG pH 7.439 (7.320-7.420) H 04/18/18 14:30 FiO2 32 % 04/19/18 00:19 Sodium 136 mmol/L (137-145) L 06/03/18 05:00 Potassium 4.4 mmol/L (3.6-5.0) 06/03/18 05:00 Chloride 101.4 mmol/L (98-107) 06/03/18 05:00 Carbon Dioxide 25 mmol/L (22-30) 06/03/18 05:00 Anion Gap 14 mmol/L 06/03/18 05:00 BUN 11 mg/dL (7-17) 06/03/18 05:00 Creatinine 0.2 mg/dL (0.7-1.2) L 06/03/18 05:00 Estimated GFR > 60 ml/min 06/03/18 05:00 BUN/Creatinine Ratio 55 % 06/03/18 05:00 Glucose 85 mg/dL (65-100) 06/03/18 05:00 POC Glucose 116 (70-105) H 06/03/18 12:35 Lactic Acid 1.20 mmol/L (0.7-2.0) 05/19/18 10:27 Calcium 8.4 mg/dL (8.4-10.2) 06/03/18 05:00 Phosphorus 3.70 mg/dL (2.5-4.5) 06/03/18 05:00 Magnesium 1.90 mg/dL (1.7-2.3) 06/03/18 05:00 Total Bilirubin 0.30 mg/dL (0.1-1.2) 05/30/18 04:40 AST 48 units/L (5-40) H 05/30/18 04:40 ALT 47 units/L (7-56) 05/30/18 04:40 Alkaline Phosphatase 96 units/L (35-129) 05/30/18 04:40 Total Protein 5.3 g/dL (6.3-8.2) L 05/30/18 04:40 Albumin 2.5 g/dL (3.9-5) L 05/30/18 04:40 Albumin/Globulin Ratio 0.9 % 05/30/18 04:40 Prealbumin 0.113 g/L (0.200-0.400) L 05/20/18 06:25 Triglycerides 128 mg/dL (2-149) 05/24/18 05:40 Urine Color Yellow (Yellow) 04/20/18 13:35 Urine Turbidity Clear (Clear) 04/20/18 13:35 Urine pH 5.0 (5.0-7.0) 04/20/18 13:35 Ur Specific [place] 1.011 (1.003-1.030) 04/20/18 13:35 Urine Protein <15 mg/dl mg/dL (Negative) 04/20/18 13:35 Urine Glucose (UA) Neg mg/dL (Negative) 04/20/18 13:35 Urine Ketones 20 mg/dL (Negative) 04/20/18 13:35 Urine Blood Sm (Negative) 04/20/18 13:35 Urine Nitrite Neg (Negative) 04/20/18 13:35 Urine Bilirubin Neg (Negative) 04/20/18 13:35 Urine Urobilinogen 2.0 mg/dL (<2.0) 04/20/18 13:35 Ur Leukocyte Esterase Tr (Negative) 04/20/18 13:35 Urine WBC (Auto) 2.0 /HPF (0.0-6.0) 04/20/18 13:35 Urine RBC (Auto) 1.0 /HPF (0.0-6.0) 04/20/18 13:35 U Epithel Cells (Auto) 2.0 /HPF (0-13.0) 04/18/18 16:45 Urine Bacteria (Auto) 2+ /HPF (Negative) 04/18/18 16:45 Urine Mucus Few /HPF 04/20/18 13:35 Blood Type O POSITIVE 04/19/18 13:05 Antibody Screen Negative 04/19/18 13:05 Crossmatch See Detail 04/19/18 13:05 Active Medications - Current Medications Current Medications: Generic Name Dose Route Start Last Admin Trade Name Freq PRN Reason Stop Dose Admin Acetaminophen 650 mg 05/20/18 12:12 05/20/18 12:41 Tylenol FL 650 mg Q4H PRN Administration Fever >101 Albuterol 2.5 mg 04/18/18 18:30 05/03/18 15:15 Proventil IH 2.5 mg Q3HRT PRN Administration Shortness Of Breath Alprazolam 0.5 mg 05/04/18 12:15 06/03/18 11:50 Xanax PO 0.5 mg Q8H PRN Administration Anxiety Arformoterol Tartrate 15 mcg 05/16/18 20:00 06/03/18 09:11 Brovana Nebu IH 15 mcg Q12HRT DUSTIN Administration Benzocaine/Menthol 1 each 04/20/18 12:51 Cepacol X Strength MM Q2HR PRN Sore Throat Budesonide 0.5 mg 05/16/18 20:00 06/03/18 09:12 Pulmicort IH 0.5 mg Q12HRT DUSTIN Administration Fentanyl 25 mcg 05/17/18 11:00 06/01/18 12:28 Duragesic TD 25 mcg Q3D DUSTIN Administration Gabapentin 800 mg 05/02/18 20:00 06/03/18 13:29 Neurontin PO 800 mg TID DUSTIN Administration Hydralazine HCl 10 mg 04/21/18 11:45 05/07/18 05:50 Apresoline IV 10 mg Q4HR PRN Administration SBP >160 Hydromorphone HCl 0.5 mg 05/11/18 12:00 06/03/18 13:28 Dilaudid IV 0.5 mg Q4H PRN Administration Pain , Severe (7-10) Amino Acids/Electrolytes/Dextrose 1,800 mls @ 75 mls/hr 06/02/18 20:00 06/02/18 20:41 Tpn Adult IV 06/03/18 19:59 75 mls/hr DAILY@1999 [facility] Administration Protocol Fat Emulsion Intravenous 250 mls @ 21 mls/hr 06/03/18 20:00 Intralipid 20% IV 06/04/18 08:00 DAILY@1999 [facility] Amino Acids/Electrolytes/Dextrose 1,800 mls @ 75 mls/hr 06/03/18 20:00 Tpn Adult IV 06/04/18 19:59 DAILY@1999 [facility] Protocol Labetalol HCl 10 mg 05/03/18 22:16 Normodyne IV Q6H PRN systolic BP greater than 175 Loperamide HCl 2 mg 05/17/18 14:46 05/17/18 17:11 Imodium PO 2 mg Q2H PRN Administration Diarrhea Losartan Potassium 100 mg 05/04/18 10:00 06/03/18 09:42 Cozaar PO 100 mg QDAY DUSTIN Administration Metoprolol Tartrate 12.5 mg 05/13/18 10:00 06/03/18 09:41 Lopressor PO 12.5 mg BID DUSTIN Administration Mirtazapine 15 mg 05/09/18 22:00 06/02/18 22:42 Remeron PO 15 mg QHS DUSTIN Administration Octreotide Acetate 100 mcg 05/08/18 14:00 06/03/18 13:29 Sandostatin SUB-Q 100 mcg Q8HR DUSTIN Administration Ondansetron HCl 4 mg 05/21/18 11:34 06/03/18 13:28 Zofran IV 4 mg Q4H PRN Administration Nausea And Vomiting Nutrition/Malnutrition Assess - Dietary Evaluation Nutrition/Malnutrition Findings: Nutrition Notes Start: 04/24/18 09:13 Freq: Status: Active Protocol: Document 06/03/18 12:40 CT (Rec: 06/03/18 12:45 CT [id number]) Co-Sign 06/03/18 12:40 LP Nutrition Notes Initial or Follow up Reassessment Current Diagnosis COPD Other Pertinent Diagnosis Perforated appendix s/p exp lap, Hep C Current Diet TPN at 75ml/hr Labs/Tests Reviewed. Pertinent Medications Reviewed Height 5 ft 1 in Weight 41 kg [place] Body Weight (kg) 47.72 BMI 17.0 Subjective/Other Information Day 38 PPN. Observed PPN infusing at 75mL/hr. Percent of energy/protein needs met: 100%/100% Burn Absent Trauma Absent #2 Nutrition Diagnosis Increased nutrient needs ( specify in comment below) Diagnosis Progress(for reassessment Continues documentation) #1 Nutrition Diagnosis Inadequate oral intake Diagnosis Progress(for reassessment Continues documentation) Is patient on ventilator? No Is Patient Ambulatory and/or Out of Bed Yes REE-([place]. Jeor-ambulatory/OOB) [ 1218.594 [id number]] Kcal/Kg value to use for calculation 40 Approximate Energy Requirements Using 1640 kcal/Kg Calculation Used for Recommendations Kcal/kg Additional Notes Pro needs 1.25-1.5g/k-63g /day Fluid needs 1ml/kcal Nutrition Intervention Change Diet Order: Continue CPN Nutrition Support: Continue CPN at 75 mL/hr: lipids MVI Kcal 1,815 Protein (gm) 95 Carbohydrates (gm) 275 Fat (gm) 50 Fluid (mL) 2,050 Fiber (gm) 0 Goal #1 CPN to continue to meet 90-100 % energy and pro needs Goal #2 Wt gain/maintenance Anticipated Discharge Needs: Unable to determine at this time Follow-Up By: 06/04/18 Additional Comments Labs in am: BMP, Mg, Phos
[2018-06-03] MEDS ORDERED: INTRALIPID 20% 250 ML IV SCH (20:00)
[2018-06-03] MEDS ORDERED: TPN ADULT 1,800 ML IV SCH (20:00)
[2018-06-03] MEDS: REMERON PO SCH (21:41)
[2018-06-04] MEDS: DILAUDID IV PRN ×4 (02:52→21:20)
[2018-06-04] MEDS: XANAX PO PRN (05:21)
[2018-06-04 06:38] LABS: BUN/Creatinine Ratio 53; Blood Urea Nitrogen 16 mg/dL (7-17); Calcium 8.5 mg/dL (8.4-10.2); Hemolysis Index 6
[2018-06-04] MEDS: BROVANA NEBU IH SCH ×2 (07:44→20:35)
[2018-06-04] MEDS: PULMICORT IH SCH ×2 (07:44→20:35)
[2018-06-04] MEDS: LOPRESSOR PO SCH ×2 (10:04→21:34)
[2018-06-04] MEDS: NEURONTIN PO SCH ×3 (10:22→21:42)
--- NOTE | 2018-06-04 11:46 | Progress Note ---
Assessment and Plan Assessment and plan: The patient is a 57-year-old female with hypertension, neurofibromatosis, hepatitis C, COPD, nicotine dependence presented to the emergency room on 04/18/18 with complaints of abdominal pain going on for [address] scan obtained in the emergency room revealed a ruptured appendix with associated intra-abdominal abscess. General surgery was consulted and the patient underwent an emergent exploratory laparotomy with evacuation of pelvic abscess. She was noted to have a gangrenous, perforated appendix eroding including into the small bowel. As per the op note, the abscess could not be drained as the entire abscess and inflammatory process had trapped the small bowel, which was mobilized and she underwent an ileocolic anastomosis. The patient went back to the OR on 04/25/18 for drain dislodgment. * Continue local wound care and TPN * Surgical culture grew Ecoli and ester, completed treatment * CT abdomen: 05/18/18- Still shows minimal drainage, per surgery repeat CT of abd & pelvis with PO contrast done 05/25/18 showed no acute change - started on clear liquid but continue to abdominal pain and high drainage suspicion for non healing perforation, may need terciary center transfer * Urology was consulted for possible entro-vesico fistula due to the color of the urine, cystogram was normal. * Insurance denies LTAC, recommends SNF. But Patient refuses SNF * Dr. Shelton discussed with surgeon at [facility] for poss transfer. /Sepsis Etiology secondary to gangrenous and perforated appendix causing intra- abdominal/pelvic abscess. Patient is status post exploratory laparotomy with appendectomy and evacuation of pelvic abscess. Now off antibiotics and noted ID signed off. No fever off antibiotics. /Perforated appendix s/p exploratory lap Cont. TPN, started on clear liquid diet which increased drainage, suspicion for non healing perforation s/p repeat CT abdomen/pelvis on 05/25/18 recommended transfer to tertiary center - reference sent for [facility], but they do not have a bed. patient still having significant drainage ~ 200cc/day /Chronic hep C. Untreated. Outpatient follow-up. /Accel Hypertension. continue Cozaar to 100mg. Cont. Hydralazine prn. /Diarrhea: s/p lmodium prn x 1 /Tachycardia: secondary to dehydration and deconditioning. Fluids to be given and also started Low dose BB. /COPD. Compensated. nebs as needed /Neurofibromatosis: outpt follow up /Tobacco abuse. Patient counseled on smoking cessation FOR 15 MINS, Patient verbalized understanding and will think about it. /Severe protein calorie malnutrition; student recruiter consulted. continue with TPN, npo now /Hypotension-resolved BP better, Disposition - Not stable for discharge. History Interval history: Less abd pain No fever Insomnia - she says Remeron not working much Hospitalist Physical - Physical exam Narrative exam: GEN: Not in acute distress, lying in bed, ill looking, malnourished HEENT: Normocephalic, atraumatic Neck: supple, No JVD Lungs: Clear to auscultation bilaterally, no wheeze Heart:S1 and S2 regular, no murmurs, rubs or gallop, Abd:soft, mild tender, dressing over abdomen, normal bowel sounds Ext: No edema, no clubbing or cyanosis Neuro: AAO x 3, moves all extremities, no focal neurological signs - Constitutional Vitals: Temp Pulse Resp BP Pulse Ox 98.1 F 95 H 18 96/53 94 06/04/18 11:33 06/04/18 11:33 06/04/18 11:33 06/04/18 11:33 06/04/18 10:58 General appearance: Present: no acute distress, cachectic, other (temporal wasti ng scaphoid abdomen.) Results - Labs CBC & Chem 7: 05/29/18 11:14 06/04/18 05:35 Labs: Laboratory Last Values WBC 3.8 K/mm3 (4.5-11.0) L 05/29/18 11:14 RBC 3.39 M/mm3 (3.65-5.03) L 05/29/18 11:14 Hgb 8.9 gm/dl (10.1-14.3) L 05/29/18 11:14 Hct 27.7 % (30.3-42.9) L 05/29/18 11:14 MCV 82 fl (79-97) 05/29/18 11:14 MCH 26 pg (28-32) L 05/29/18 11:14 MCHC 32 % (30-34) 05/29/18 11:14 RDW 16.1 % (13.2-15.2) H 05/29/18 11:14 Plt Count 154 K/mm3 (140-440) 05/29/18 11:14 Lymph % (Auto) 22.4 % (13.4-35.0) 05/29/18 11:14 [place] % (Auto) 12.7 % (0.0-7.3) H 05/29/18 11:14 Eos % (Auto) 0.4 % (0.0-4.3) 05/29/18 11:14 Baso % (Auto) 0.3 % (0.0-1.8) 05/29/18 11:14 Lymph # 0.8 K/mm3 (1.2-5.4) L 05/29/18 11:14 [place] # 0.5 K/mm3 (0.0-0.8) 05/29/18 11:14 Eos # 0.0 K/mm3 (0.0-0.4) 05/29/18 11:14 Baso # 0.0 K/mm3 (0.0-0.1) 05/29/18 11:14 Add Manual Diff Complete 04/30/18 05:41 Total Counted 100 04/30/18 05:41 Seg Neutrophils % 64.2 % (40.0-70.0) 05/29/18 11:14 Seg Neuts % (Manual) 88.0 % (40.0-70.0) H 04/30/18 05:41 Band Neutrophils % 1.0 % 04/30/18 05:41 Lymphocytes % (Manual) 8.0 % (13.4-35.0) L 04/30/18 05:41 Reactive Lymphs % (Man) 0 % 04/30/18 05:41 Monocytes % (Manual) 3.0 % (0.0-7.3) 04/30/18 05:41 Eosinophils % (Manual) 0 % (0.0-4.3) 04/30/18 05:41 Basophils % (Manual) 0 % (0.0-1.8) 04/30/18 05:41 Metamyelocytes % 0 % 04/30/18 05:41 Myelocytes % 0 % 04/30/18 05:41 Promyelocytes % 0 % 04/30/18 05:41 Blast Cells % 0 % 04/30/18 05:41 Nucleated RBC % Not Reportable 04/30/18 05:41 Seg Neutrophils # 2.4 K/mm3 (1.8-7.7) 05/29/18 11:14 Seg Neutrophils # Man 7.7 K/mm3 (1.8-7.7) 04/30/18 05:41 Band Neutrophils # 0.1 K/mm3 04/30/18 05:41 Lymphocytes # (Manual) 0.7 K/mm3 (1.2-5.4) L 04/30/18 05:41 Abs React Lymphs (Man) 0.0 K/mm3 04/30/18 05:41 Monocytes # (Manual) 0.3 K/mm3 (0.0-0.8) 04/30/18 05:41 Eosinophils # (Manual) 0.0 K/mm3 (0.0-0.4) 04/30/18 05:41 Basophils # (Manual) 0.0 K/mm3 (0.0-0.1) 04/30/18 05:41 Metamyelocytes # 0.0 K/mm3 04/30/18 05:41 Myelocytes # 0.0 K/mm3 04/30/18 05:41 Promyelocytes # 0.0 K/mm3 04/30/18 05:41 Blast Cells # 0.0 K/mm3 04/30/18 05:41 WBC Morphology Not Reportable 04/30/18 05:41 Hypersegmented Neuts Not Reportable 04/30/18 05:41 Hyposegmented Neuts Not Reportable 04/30/18 05:41 Hypogranular Neuts Not Reportable 04/30/18 05:41 Smudge Cells Not Reportable 04/30/18 05:41 Toxic Granulation Not Reportable 04/30/18 05:41 Toxic Vacuolation Not Reportable 04/30/18 05:41 Dohle Bodies Not Reportable 04/30/18 05:41 Pelger-Huet Anomaly Not Reportable 04/30/18 05:41 Nicole Rods Not Reportable 04/30/18 05:41 Platelet Estimate Appears normal 04/30/18 05:41 Clumped Platelets Not Reportable 04/30/18 05:41 Plt Clumps, EDTA Not Reportable 04/30/18 05:41 Large Platelets Not Reportable 04/30/18 05:41 Giant Platelets Not Reportable 04/30/18 05:41 Platelet Satelliting Not Reportable 04/30/18 05:41 Plt Morphology Comment Not Reportable 04/30/18 05:41 RBC Morphology Not Reportable 04/30/18 05:41 Dimorphic RBCs Not Reportable 04/30/18 05:41 Polychromasia Not Reportable 04/30/18 05:41 Hypochromasia 1+ 04/30/18 05:41 Poikilocytosis Not Reportable 04/30/18 05:41 Anisocytosis 1+ 04/30/18 05:41 Microcytosis Not Reportable 04/30/18 05:41 Macrocytosis Not Reportable 04/30/18 05:41 Spherocytes Not Reportable 04/30/18 05:41 Pappenheimer Bodies Not Reportable 04/30/18 05:41 Sickle Cells Not Reportable 04/30/18 05:41 Target Cells Not Reportable 04/30/18 05:41 Tear Drop Cells Not Reportable 04/30/18 05:41 Ovalocytes Few 04/30/18 05:41 Stomatocytes Few 04/29/18 05:18 Helmet Cells Not Reportable 04/30/18 05:41 Spann-Gardiner Bodies Not Reportable 04/30/18 05:41 [place] Rings Not Reportable 04/30/18 05:41 [place] Cells Not Reportable 04/30/18 05:41 Bite Cells Not Reportable 04/30/18 05:41 Crenated Cell Not Reportable 04/30/18 05:41 Elliptocytes Not Reportable 04/30/18 05:41 Acanthocytes (Spur) Not Reportable 04/30/18 05:41 Rouleaux Not Reportable 04/30/18 05:41 Hemoglobin C Crystals Not Reportable 04/30/18 05:41 Schistocytes Not Reportable 04/30/18 05:41 Malaria parasites Not Reportable 04/30/18 05:41 Hung Bodies Not Reportable 04/30/18 05:41 Hem Pathologist Commnt No 04/30/18 05:41 PT 15.3 Sec. (12.2-14.9) H 04/22/18 05:19 INR 1.17 (0.87-1.13) H 04/22/18 05:19 APTT 29.4 Sec. (24.2-36.6) 04/19/18 05:19 POC ABG pH 7.367 (7.35-7.45) 04/19/18 00:19 POC ABG pCO2 36.8 (35-45) 04/19/18 00:19 POC ABG pO2 84 (80-105) 04/19/18 00:19 POC ABG HCO3 21.1 04/19/18 00:19 POC ABG Total CO2 22 04/19/18 00:19 POC ABG O2 Sat 96 04/19/18 00:19 POC ABG Base Excess -4 04/19/18 00:19 VBG pH 7.439 (7.320-7.420) H 04/18/18 14:30 FiO2 32 % 04/19/18 00:19 Sodium 137 mmol/L (137-145) 06/04/18 05:35 Potassium 4.1 mmol/L (3.6-5.0) 06/04/18 05:35 Chloride 103.8 mmol/L (98-107) 06/04/18 05:35 Carbon Dioxide 22 mmol/L (22-30) 06/04/18 05:35 Anion Gap 15 mmol/L 06/04/18 05:35 BUN 16 mg/dL (7-17) 06/04/18 05:35 Creatinine 0.3 mg/dL (0.7-1.2) L 06/04/18 05:35 Estimated GFR > 60 ml/min 06/04/18 05:35 BUN/Creatinine Ratio 53 % 06/04/18 05:35 Glucose 98 mg/dL (65-100) 06/04/18 05:35 POC Glucose 97 (70-105) 06/04/18 11:03 Lactic Acid 1.20 mmol/L (0.7-2.0) 05/19/18 10:27 Calcium 8.5 mg/dL (8.4-10.2) 06/04/18 05:35 Phosphorus 4.50 mg/dL (2.5-4.5) D 06/04/18 05:35 Magnesium 2.10 mg/dL (1.7-2.3) 06/04/18 05:35 Total Bilirubin 0.30 mg/dL (0.1-1.2) 05/30/18 04:40 AST 48 units/L (5-40) H 05/30/18 04:40 ALT 47 units/L (7-56) 05/30/18 04:40 Alkaline Phosphatase 96 units/L (35-129) 05/30/18 04:40 Total Protein 5.3 g/dL (6.3-8.2) L 05/30/18 04:40 Albumin 2.5 g/dL (3.9-5) L 05/30/18 04:40 Albumin/Globulin Ratio 0.9 % 05/30/18 04:40 Prealbumin 0.113 g/L (0.200-0.400) L 05/20/18 06:25 Triglycerides 128 mg/dL (2-149) 05/24/18 05:40 Urine Color Yellow (Yellow) 04/20/18 13:35 Urine Turbidity Clear (Clear) 04/20/18 13:35 Urine pH 5.0 (5.0-7.0) 04/20/18 13:35 Ur Specific [place] 1.011 (1.003-1.030) 04/20/18 13:35 Urine Protein <15 mg/dl mg/dL (Negative) 04/20/18 13:35 Urine Glucose (UA) Neg mg/dL (Negative) 04/20/18 13:35 Urine Ketones 20 mg/dL (Negative) 04/20/18 13:35 Urine Blood Sm (Negative) 04/20/18 13:35 Urine Nitrite Neg (Negative) 04/20/18 13:35 Urine Bilirubin Neg (Negative) 04/20/18 13:35 Urine Urobilinogen 2.0 mg/dL (<2.0) 04/20/18 13:35 Ur Leukocyte Esterase Tr (Negative) 04/20/18 13:35 Urine WBC (Auto) 2.0 /HPF (0.0-6.0) 04/20/18 13:35 Urine RBC (Auto) 1.0 /HPF (0.0-6.0) 04/20/18 13:35 U Epithel Cells (Auto) 2.0 /HPF (0-13.0) 04/18/18 16:45 Urine Bacteria (Auto) 2+ /HPF (Negative) 04/18/18 16:45 Urine Mucus Few /HPF 04/20/18 13:35 Blood Type O POSITIVE 04/19/18 13:05 Antibody Screen Negative 04/19/18 13:05 Crossmatch See Detail 04/19/18 13:05 Active Medications - Current Medications Current Medications: Generic Name Dose Route Start Last Admin Trade Name Freq PRN Reason Stop Dose Admin Acetaminophen 650 mg 05/20/18 12:12 05/20/18 12:41 Tylenol MI 650 mg Q4H PRN Administration Fever >101 Albuterol 2.5 mg 04/18/18 18:30 05/03/18 15:15 Proventil IH 2.5 mg Q3HRT PRN Administration Shortness Of Breath Alprazolam 0.5 mg 05/04/18 12:15 06/04/18 05:21 Xanax PO 0.5 mg Q8H PRN Administration Anxiety Arformoterol Tartrate 15 mcg 05/16/18 20:00 06/04/18 07:44 Brovana Nebu IH 15 mcg Q12HRT DUSTIN Administration Benzocaine/Menthol 1 each 04/20/18 12:51 Cepacol X Strength MM Q2HR PRN Sore Throat Budesonide 0.5 mg 05/16/18 20:00 06/04/18 07:44 Pulmicort IH 0.5 mg Q12HRT DUSTIN Administration Fentanyl 25 mcg 05/17/18 11:00 06/01/18 12:28 Duragesic TD 25 mcg Q3D DUSTIN Administration Gabapentin 800 mg 05/02/18 20:00 06/04/18 10:22 Neurontin PO 800 mg TID DUSTIN Administration Hydralazine HCl 10 mg 04/21/18 11:45 05/07/18 05:50 Apresoline IV 10 mg Q4HR PRN Administration SBP >160 Hydromorphone HCl 0.5 mg 05/11/18 12:00 06/04/18 11:18 Dilaudid IV 0.5 mg Q4H PRN Administration Pain , Severe (7-10) Amino Acids/Electrolytes/Dextrose 1,800 mls @ 75 mls/hr 06/03/18 20:00 06/03/18 21:42 Tpn Adult IV 06/04/18 19:59 75 mls/hr DAILY@2000 DUSTIN Administration Protocol Loperamide HCl 2 mg 05/17/18 14:46 05/17/18 17:11 Imodium PO 2 mg Q2H PRN Administration Diarrhea Metoprolol Tartrate 12.5 mg 05/13/18 10:00 06/04/18 10:04 Lopressor PO Not Given BID DUSTIN Mirtazapine 15 mg 05/09/18 22:00 06/03/18 21:41 Remeron PO 15 mg QHS DUSTIN Administration Octreotide Acetate 100 mcg 05/08/18 14:00 06/04/18 05:21 Sandostatin SUB-Q 100 mcg Q8HR DUSTIN Administration Ondansetron HCl 4 mg 05/21/18 11:34 06/03/18 17:27 Zofran IV 4 mg Q4H PRN Administration Nausea And Vomiting Nutrition/Malnutrition Assess - Dietary Evaluation Nutrition/Malnutrition Findings: Nutrition Notes Start: 04/24/18 09:13 Freq: Status: Active Protocol: Document 06/04/18 10:44 CT (Rec: 06/04/18 10:49 CT [id number]) Co-Sign 06/04/18 10:44 LP Nutrition Notes Initial or Follow up Reassessment Current Diagnosis COPD Other Pertinent Diagnosis Perforated appendix s/p exp lap, Hep C Current Diet TPN at 75ml/hr Labs/Tests P: 4.5 Pertinent Medications Reviewed Height 5 ft 1 in Weight 41 kg [place] Body Weight (kg) 47.72 BMI 17.0 Subjective/Other Information Day 39 PPN. Per RN PN has been infusing at goal, except when patient goes on a walk. Percent of energy/protein needs met: 80%/100% Burn Absent Trauma Absent #2 Nutrition Diagnosis Increased nutrient needs ( specify in comment below) Diagnosis Progress(for reassessment Continues documentation) #1 Nutrition Diagnosis Inadequate oral intake Diagnosis Progress(for reassessment Continues documentation) Is patient on ventilator? No Is Patient Ambulatory and/or Out of Bed Yes REE-([facility]-ambulatory/OOB) [ 1218.594 [id number]] Kcal/Kg value to use for calculation 40 Approximate Energy Requirements Using 1640 kcal/Kg Calculation Used for Recommendations Kcal/kg Additional Notes Pro needs 1.25-1.5g/k-63g /day Fluid needs 1ml/kcal Nutrition Intervention Change Diet Order: Continue CPN Nutrition Support: Continue CPN at 75 mL/hr: lipids MVI Kcal 1,315 Protein (gm) 95 Carbohydrates (gm) 275 Fat (gm) 0 Fluid (mL) 1,810 Fiber (gm) 0 Goal #1 CPN to continue to meet 90-100 % energy and pro needs Goal #2 Wt gain/maintenance Anticipated Discharge Needs: Unable to determine at this time Follow-Up By: 05/09/18 Additional Comments Labs in am: CMP, Mg, Phos
[2018-06-04] MEDS: DURAGESIC TD SCH (16:04)
[2018-06-04] MEDS ORDERED: TPN ADULT 1,800 ML IV SCH (20:00)
[2018-06-04] MEDS: REMERON PO SCH (21:34)
[2018-06-05] MEDS: DILAUDID IV PRN ×5 (02:00→19:58)
[2018-06-05] MEDS: NEURONTIN PO SCH ×3 (07:29→19:58)
[2018-06-05] MEDS: BROVANA NEBU IH SCH ×2 (08:00→21:05)
[2018-06-05] MEDS: PULMICORT IH SCH ×2 (08:00→21:05)
--- NOTE | 2018-06-05 09:42 | Progress Note ---
Assessment and Plan Pt doing well without compl. ambulating down halls. 50 cc drainage last 24 hrs. Abd - status quo stable awaiting transfer to [facility] next wk Objective Vital Signs - 12hr 06/04/18 06/05/18 06/05/18 23:50 05:04 07:00 Temperature 98.0 F 98.2 F 98.2 F Pulse Rate 85 83 82 Respiratory 16 16 20 Rate Blood Pressure 115/58 104/54 Blood Pressure 100/48 [Left] O2 Sat by Pulse 97 96 95 Oximetry - Labs 05/29/18 11:14 06/04/18 05:35
[2018-06-05] MEDS: ZOFRAN IV PRN ×3 (10:10→19:58)
[2018-06-05] MEDS: LOPRESSOR PO SCH ×2 (10:12→22:04)
[2018-06-05] MEDS: XANAX PO PRN ×2 (14:22→22:04)
[2018-06-05] MEDS ORDERED: INTRALIPID 20% 250 ML IV SCH (20:00)
[2018-06-05] MEDS ORDERED: TPN ADULT 1,800 ML IV SCH (20:00)
[2018-06-05] MEDS: REMERON PO SCH (22:04)
[2018-06-06] MEDS: DILAUDID IV PRN ×3 (01:56→09:37)
[2018-06-06] MEDS: ZOFRAN IV PRN ×2 (05:26→09:37)
[2018-06-06 06:13] LABS: Alanine Aminotransferase 84 units/L (7-56); BUN/Creatinine Ratio 70; Blood Urea Nitrogen 14 mg/dL (7-17); Calcium 8.4 mg/dL (8.4-10.2); Hemolysis Index 3
[2018-06-06] MEDS: PULMICORT IH SCH ×2 (08:01→22:04)
[2018-06-06] MEDS: BROVANA NEBU IH SCH ×2 (08:01→22:03)
[2018-06-06] MEDS: LOPRESSOR PO SCH ×2 (09:38→22:30)
[2018-06-06] MEDS: NEURONTIN PO SCH ×3 (09:38→20:25)
[2018-06-06] MEDS: XANAX PO PRN ×2 (09:39→20:25)
--- NOTE | 2018-06-06 10:08 | Progress Note ---
Assessment and Plan Assessment and plan: The patient is a 57-year-old female with hypertension, neurofibromatosis, hepatitis C, COPD, nicotine dependence presented to the emergency room on 04/18/18 with complaints of abdominal pain going on for [address] scan obtained in the emergency room revealed a ruptured appendix with associated intra-abdominal abscess. General surgery was consulted and the patient underwent an emergent exploratory laparotomy with evacuation of pelvic abscess. She was noted to have a gangrenous, perforated appendix eroding including into the small bowel. As per the op note, the abscess could not be drained as the entire abscess and inflammatory process had trapped the small bowel, which was mobilized and she underwent an ileocolic anastomosis. The patient went back to the OR on 04/25/18 for drain dislodgment. * Continue local wound care and TPN * Surgical culture grew Ecoli and ester, completed treatment * CT abdomen: 05/18/18- Still shows minimal drainage, per surgery repeat CT of abd & pelvis with PO contrast done 05/25/18 showed no acute change - started on clear liquid but continue to abdominal pain and high drainage suspicion for non healing perforation, may need terciary center transfer * Urology was consulted for possible entro-vesico fistula due to the color of the urine, cystogram was normal. * Insurance denies LTAC, recommends SNF. But Patient refuses SNF * Dr. Shelton discussed with surgeon at [facility] for poss transfer. /Sepsis Etiology secondary to gangrenous and perforated appendix causing intra- abdominal/pelvic abscess. Patient is status post exploratory laparotomy with appendectomy and evacuation of pelvic abscess. Now off antibiotics and noted ID signed off. No fever off antibiotics. /Perforated appendix s/p exploratory lap Cont. TPN, started on clear liquid diet which increased drainage, suspicion for non healing perforation s/p repeat CT abdomen/pelvis on 05/25/18 recommended transfer to tertiary center - reference sent for [facility], but they do not have a bed. patient still having significant drainage ~ 200cc/day /Chronic hep C. Untreated. Outpatient follow-up. /Accel Hypertension. continue Cozaar to 100mg. Cont. Hydralazine prn. /Diarrhea: s/p lmodium prn x 1 /Tachycardia: secondary to dehydration and deconditioning. Fluids to be given and also started Low dose BB. /COPD. Compensated. nebs as needed /Neurofibromatosis: outpt follow up /Tobacco abuse. Patient counseled on smoking cessation FOR 15 MINS, Patient verbalized understanding and will think about it. /Severe protein calorie malnutrition; scenery builder consulted. continue with TPN, npo now /Hypotension-resolved BP better, Disposition - Not stable for discharge. -had a meeting with Dr. Shelton and Adela, case management coordinator. She called office of Surgeon at [facility], we are trying to transfer patient to. He is out of town. Adela will call again on Friday. History Interval history: Less abd pain No fever Insomnia - she says Remeron not working much Hospitalist Physical - Physical exam Narrative exam: GEN: Not in acute distress, lying in bed, ill looking, malnourished HEENT: Normocephalic, atraumatic Neck: supple, No JVD Lungs: Clear to auscultation bilaterally, no wheeze Heart:S1 and S2 regular, no murmurs, rubs or gallop, Abd:soft, mild tender, dressing over abdomen, normal bowel sounds Ext: No edema, no clubbing or cyanosis Neuro: AAO x 3, moves all extremities, no focal neurological signs - Constitutional Vitals: Temp Pulse Resp BP Pulse Ox 98.5 F 78 18 137/72 96 06/06/18 07:15 06/06/18 09:38 06/06/18 08:27 06/06/18 09:38 06/06/18 07:15 General appearance: Present: no acute distress, cachectic, other (temporal wasting scaphoid abdomen.) Results - Labs CBC & Chem 7: 05/29/18 11:14 06/06/18 05:40 Labs: Laboratory Last Values WBC 3.8 K/mm3 (4.5-11.0) L 05/29/18 11:14 RBC 3.39 M/mm3 (3.65-5.03) L 05/29/18 11:14 Hgb 8.9 gm/dl (10.1-14.3) L 05/29/18 11:14 Hct 27.7 % (30.3-42.9) L 05/29/18 11:14 MCV 82 fl (79-97) 05/29/18 11:14 MCH 26 pg (28-32) L 05/29/18 11:14 MCHC 32 % (30-34) 05/29/18 11:14 RDW 16.1 % (13.2-15.2) H 05/29/18 11:14 Plt Count 154 K/mm3 (140-440) 05/29/18 11:14 Lymph % (Auto) 22.4 % (13.4-35.0) 05/29/18 11:14 [place] % (Auto) 12.7 % (0.0-7.3) H 05/29/18 11:14 Eos % (Auto) 0.4 % (0.0-4.3) 05/29/18 11:14 Baso % (Auto) 0.3 % (0.0-1.8) 05/29/18 11:14 Lymph # 0.8 K/mm3 (1.2-5.4) L 05/29/18 11:14 [place] # 0.5 K/mm3 (0.0-0.8) 05/29/18 11:14 Eos # 0.0 K/mm3 (0.0-0.4) 05/29/18 11:14 Baso # 0.0 K/mm3 (0.0-0.1) 05/29/18 11:14 Add Manual Diff Complete 04/30/18 05:41 Total Counted 100 04/30/18 05:41 Seg Neutrophils % 64.2 % (40.0-70.0) 05/29/18 11:14 Seg Neuts % (Manual) 88.0 % (40.0-70.0) H 04/30/18 05:41 Band Neutrophils % 1.0 % 04/30/18 05:41 Lymphocytes % (Manual) 8.0 % (13.4-35.0) L 04/30/18 05:41 Reactive Lymphs % (Man) 0 % 04/30/18 05:41 Monocytes % (Manual) 3.0 % (0.0-7.3) 04/30/18 05:41 Eosinophils % (Manual) 0 % (0.0-4.3) 04/30/18 05:41 Basophils % (Manual) 0 % (0.0-1.8) 04/30/18 05:41 Metamyelocytes % 0 % 04/30/18 05:41 Myelocytes % 0 % 04/30/18 05:41 Promyelocytes % 0 % 04/30/18 05:41 Blast Cells % 0 % 04/30/18 05:41 Nucleated RBC % Not Reportable 04/30/18 05:41 Seg Neutrophils # 2.4 K/mm3 (1.8-7.7) 05/29/18 11:14 Seg Neutrophils # Man 7.7 K/mm3 (1.8-7.7) 04/30/18 05:41 Band Neutrophils # 0.1 K/mm3 04/30/18 05:41 Lymphocytes # (Manual) 0.7 K/mm3 (1.2-5.4) L 04/30/18 05:41 Abs React Lymphs (Man) 0.0 K/mm3 04/30/18 05:41 Monocytes # (Manual) 0.3 K/mm3 (0.0-0.8) 04/30/18 05:41 Eosinophils # (Manual) 0.0 K/mm3 (0.0-0.4) 04/30/18 05:41 Basophils # (Manual) 0.0 K/mm3 (0.0-0.1) 04/30/18 05:41 Metamyelocytes # 0.0 K/mm3 04/30/18 05:41 Myelocytes # 0.0 K/mm3 04/30/18 05:41 Promyelocytes # 0.0 K/mm3 04/30/18 05:41 Blast Cells # 0.0 K/mm3 04/30/18 05:41 WBC Morphology Not Reportable 04/30/18 05:41 Hypersegmented Neuts Not Reportable 04/30/18 05:41 Hyposegmented Neuts Not Reportable 04/30/18 05:41 Hypogranular Neuts Not Reportable 04/30/18 05:41 Smudge Cells Not Reportable 04/30/18 05:41 Toxic Granulation Not Reportable 04/30/18 05:41 Toxic Vacuolation Not Reportable 04/30/18 05:41 Dohle Bodies Not Reportable 04/30/18 05:41 Pelger-Huet Anomaly Not Reportable 04/30/18 05:41 Nicole Rods Not Reportable 04/30/18 05:41 Platelet Estimate Appears normal 04/30/18 05:41 Clumped Platelets Not Reportable 04/30/18 05:41 Plt Clumps, EDTA Not Reportable 04/30/18 05:41 Large Platelets Not Reportable 04/30/18 05:41 Giant Platelets Not Reportable 04/30/18 05:41 Platelet Satelliting Not Reportable 04/30/18 05:41 Plt Morphology Comment Not Reportable 04/30/18 05:41 RBC Morphology Not Reportable 04/30/18 05:41 Dimorphic RBCs Not Reportable 04/30/18 05:41 Polychromasia Not Reportable 04/30/18 05:41 Hypochromasia 1+ 04/30/18 05:41 Poikilocytosis Not Reportable 04/30/18 05:41 Anisocytosis 1+ 04/30/18 05:41 Microcytosis Not Reportable 04/30/18 05:41 Macrocytosis Not Reportable 04/30/18 05:41 Spherocytes Not Reportable 04/30/18 05:41 Pappenheimer Bodies Not Reportable 04/30/18 05:41 Sickle Cells Not Reportable 04/30/18 05:41 Target Cells Not Reportable 04/30/18 05:41 Tear Drop Cells Not Reportable 04/30/18 05:41 Ovalocytes Few 04/30/18 05:41 Stomatocytes Few 04/29/18 05:18 Helmet Cells Not Reportable 04/30/18 05:41 [place] Bodies Not Reportable 04/30/18 05:41 [place] Rings Not Reportable 04/30/18 05:41 Philip Cells Not Reportable 04/30/18 05:41 Bite Cells Not Reportable 04/30/18 05:41 Crenated Cell Not Reportable 04/30/18 05:41 Elliptocytes Not Reportable 04/30/18 05:41 Acanthocytes (Spur) Not Reportable 04/30/18 05:41 Rouleaux Not Reportable 04/30/18 05:41 Hemoglobin C Crystals Not Reportable 04/30/18 05:41 Schistocytes Not Reportable 04/30/18 05:41 Malaria parasites Not Reportable 04/30/18 05:41 Hung Bodies Not Reportable 04/30/18 05:41 Hem Pathologist Commnt No 04/30/18 05:41 PT 15.3 Sec. (12.2-14.9) H 04/22/18 05:19 INR 1.17 (0.87-1.13) H 04/22/18 05:19 APTT 29.4 Sec. (24.2-36.6) 04/19/18 05:19 POC ABG pH 7.367 (7.35-7.45) 04/19/18 00:19 POC ABG pCO2 36.8 (35-45) 04/19/18 00:19 POC ABG pO2 84 (80-105) 04/19/18 00:19 POC ABG HCO3 21.1 04/19/18 00:19 POC ABG Total CO2 22 04/19/18 00:19 POC ABG O2 Sat 96 04/19/18 00:19 POC ABG Base Excess -4 04/19/18 00:19 VBG pH 7.439 (7.320-7.420) H 04/18/18 14:30 FiO2 32 % 04/19/18 00:19 Sodium 138 mmol/L (137-145) 06/06/18 05:40 Potassium 4.3 mmol/L (3.6-5.0) 06/06/18 05:40 Chloride 105.2 mmol/L (98-107) 06/06/18 05:40 Carbon Dioxide 24 mmol/L (22-30) 06/06/18 05:40 Anion Gap 13 mmol/L 06/06/18 05:40 BUN 14 mg/dL (7-17) 06/06/18 05:40 Creatinine 0.2 mg/dL (0.7-1.2) L 06/06/18 05:40 Estimated GFR > 60 ml/min 06/06/18 05:40 BUN/Creatinine Ratio 70 % 06/06/18 05:40 Glucose 89 mg/dL (65-100) 06/06/18 05:40 POC Glucose 127 (70-105) H 06/06/18 06:04 Lactic Acid 1.20 mmol/L (0.7-2.0) 05/19/18 10:27 Calcium 8.4 mg/dL (8.4-10.2) 06/06/18 05:40 Phosphorus 3.70 mg/dL (2.5-4.5) 06/05/18 Unknown Magnesium 1.90 mg/dL (1.7-2.3) 06/05/18 Unknown Total Bilirubin 0.40 mg/dL (0.1-1.2) 06/06/18 05:40 AST 89 units/L (5-40) H 06/06/18 05:40 ALT 84 units/L (7-56) H 06/06/18 05:40 Alkaline Phosphatase 116 units/L (35-129) 06/06/18 05:40 Total Protein 5.9 g/dL (6.3-8.2) L 06/06/18 05:40 Albumin 3.0 g/dL (3.9-5) L 06/06/18 05:40 Albumin/Globulin Ratio 1.0 % 06/06/18 05:40 Prealbumin 0.113 g/L (0.200-0.400) L 05/20/18 06:25 Triglycerides 128 mg/dL (2-149) 05/24/18 05:40 Urine Color Yellow (Yellow) 04/20/18 13:35 Urine Turbidity Clear (Clear) 04/20/18 13:35 Urine pH 5.0 (5.0-7.0) 04/20/18 13:35 Ur Specific [place] 1.011 (1.003-1.030) 04/20/18 13:35 Urine Protein <15 mg/dl mg/dL (Negative) 04/20/18 13:35 Urine Glucose (UA) Neg mg/dL (Negative) 04/20/18 13:35 Urine Ketones 20 mg/dL (Negative) 04/20/18 13:35 Urine Blood Sm (Negative) 04/20/18 13:35 Urine Nitrite Neg (Negative) 04/20/18 13:35 Urine Bilirubin Neg (Negative) 04/20/18 13:35 Urine Urobilinogen 2.0 mg/dL (<2.0) 04/20/18 13:35 Ur Leukocyte Esterase Tr (Negative) 04/20/18 13:35 Urine WBC (Auto) 2.0 /HPF (0.0-6.0) 04/20/18 13:35 Urine RBC (Auto) 1.0 /HPF (0.0-6.0) 04/20/18 13:35 U Epithel Cells (Auto) 2.0 /HPF (0-13.0) 04/18/18 16:45 Urine Bacteria (Auto) 2+ /HPF (Negative) 04/18/18 16:45 Urine Mucus Few /HPF 04/20/18 13:35 Blood Type O POSITIVE 04/19/18 13:05 Antibody Screen Negative 04/19/18 13:05 Crossmatch See Detail 04/19/18 13:05 Active Medications - Current Medications Current Medications: Generic Name Dose Route Start Last Admin Trade Name Freq PRN Reason Stop Dose Admin Acetaminophen 650 mg 05/20/18 12:12 05/20/18 12:41 Tylenol VT 650 mg Q4H PRN Administration Fever >101 Albuterol 2.5 mg 04/18/18 18:30 05/03/18 15:15 Proventil IH 2.5 mg Q3HRT PRN Administration Shortness Of Breath Alprazolam 0.25 mg 06/05/18 14:11 06/06/18 09:39 Xanax PO 0.25 mg Q8H PRN Administration Anxiety Arformoterol Tartrate 15 mcg 05/16/18 20:00 06/06/18 08:01 Brovana Nebu IH 15 mcg Q12HRT DUSTIN Administration Benzocaine/Menthol 1 each 04/20/18 12:51 Cepacol X Strength MM Q2HR PRN Sore Throat Budesonide 0.5 mg 05/16/18 20:00 06/06/18 08:01 Pulmicort IH 0.5 mg Q12HRT DUSTIN Administration Fentanyl 25 mcg 05/17/18 11:00 06/04/18 16:04 Duragesic TD 25 mcg Q3D DUSTIN Administration Gabapentin 800 mg 05/02/18 20:00 06/06/18 09:38 Neurontin PO 800 mg TID DUSTIN Administration Hydralazine HCl 10 mg 04/21/18 11:45 05/07/18 05:50 Apresoline IV 10 mg Q4HR PRN Administration SBP >160 Hydromorphone HCl 0.5 mg 05/11/18 12:00 06/06/18 09:37 Dilaudid IV 0.5 mg Q4H PRN Administration Pain , Severe (7-10) Amino Acids/Electrolytes/Dextrose 1,800 mls @ 0 mls/hr 06/05/18 20:00 06/05/18 20:07 Tpn Adult IV 06/06/18 16:01 45 mls/hr DAILY@2000 DUSTIN Administration Protocol As Directed Loperamide HCl 2 mg 05/17/18 14:46 05/17/18 17:11 Imodium PO 2 mg Q2H PRN Administration Diarrhea Metoprolol Tartrate 12.5 mg 05/13/18 10:00 06/06/18 09:38 Lopressor PO 12.5 mg BID DUSTIN Administration Mirtazapine 15 mg 05/09/18 22:00 06/05/18 22:04 Remeron PO 15 mg QHS DUSTIN Administration Octreotide Acetate 100 mcg 05/08/18 14:00 06/06/18 05:26 Sandostatin SUB-Q 100 mcg Q8HR DUSTIN Administration Ondansetron HCl 4 mg 05/21/18 11:34 06/06/18 09:37 Zofran IV 4 mg Q4H PRN Administration Nausea And Vomiting Nutrition/Malnutrition Assess - Dietary Evaluation Nutrition/Malnutrition Findings: Nutrition Notes Start: 04/24/18 09:13 Freq: Status: Active Protocol: Document 06/05/18 08:49 CT (Rec: 06/05/18 08:54 CT [id number]) Co-Sign 06/05/18 08:49 LP Nutrition Notes Initial or Follow up Reassessment Current Diagnosis COPD Other Pertinent Diagnosis Perforated appendix s/p exp lap, Hep C Current Diet TPN at 75mL/hr Labs/Tests No recent labs. Pertinent Medications Reviewed Height 5 ft 1 in Weight 41 kg [place] Body Weight (kg) 47.72 BMI 17.0 Subjective/Other Information Day 40 TPN. Began cycling TPN to 18 hours/day and informed RN of change. Percent of energy/protein needs met: 80%/100% Burn Absent Trauma Absent #2 Nutrition Diagnosis Increased nutrient needs ( specify in comment below) Diagnosis Progress(for reassessment Continues documentation) #1 Nutrition Diagnosis Inadequate oral intake Diagnosis Progress(for reassessment Continues documentation) Is patient on ventilator? No Is Patient Ambulatory and/or Out of Bed Yes REE-([place]-St. Jeor-ambulatory/OOB) [ 1218.594 [id number]] Kcal/Kg value to use for calculation 40 Approximate Energy Requirements Using 1640 kcal/Kg Calculation Used for Recommendations Kcal/kg Additional Notes Pro needs 1.25-1.5g/k-63g /day Fluid needs 1ml/kcal Nutrition Intervention Change Diet Order: Continue CPN Nutrition Support: Cycle CPN for 20 hrs: 45 mL/hr x 1hr 95 mL/hr x 18 hr 45 mL/hr x 1 hr lipids Kcal 1,815 Protein (gm) 95 Carbohydrates (gm) 275 Fat (gm) 0 Fluid (mL) 2,050 Fiber (gm) 0 Goal #1 CPN to continue to meet 90-100 % energy and pro needs Goal #2 Wt gain/maintenance Anticipated Discharge Needs: Unable to determine at this time Follow-Up By: 06/06/18 Additional Comments Labs in am: CMP, Mg, Phos
--- NOTE | 2018-06-06 10:10 | Progress Note ---
Assessment and Plan Assessment and plan: The patient is a 57-year-old female with hypertension, neurofibromatosis, hepatitis C, COPD, nicotine dependence presented to the emergency room on 04/18/18 with complaints of abdominal pain going on for [address] scan obtained in the emergency room revealed a ruptured appendix with associated intra-abdominal abscess. General surgery was consulted and the patient underwent an emergent exploratory laparotomy with evacuation of pelvic abscess. She was noted to have a gangrenous, perforated appendix eroding including into the small bowel. As per the op note, the abscess could not be drained as the entire abscess and inflammatory process had trapped the small bowel, which was mobilized and she underwent an ileocolic anastomosis. The patient went back to the OR on 04/25/18 for drain dislodgment. * Continue local wound care and TPN * Surgical culture grew Ecoli and ester, completed treatment * CT abdomen: 05/18/18- Still shows minimal drainage, per surgery repeat CT of abd & pelvis with PO contrast done 05/25/18 showed no acute change - started on clear liquid but continue to abdominal pain and high drainage suspicion for non healing perforation, may need terciary center transfer * Urology was consulted for possible entro-vesico fistula due to the color of the urine, cystogram was normal. * Insurance denies LTAC, recommends SNF. But Patient refuses SNF * Dr. Shelton discussed with surgeon at [facility] for poss transfer. /Sepsis Etiology secondary to gangrenous and perforated appendix causing intra- abdominal/pelvic abscess. Patient is status post exploratory laparotomy with appendectomy and evacuation of pelvic abscess. Now off antibiotics and noted ID signed off. No fever off antibiotics. /Perforated appendix s/p exploratory lap Cont. TPN, started on clear liquid diet which increased drainage, suspicion for non healing perforation s/p repeat CT abdomen/pelvis on 05/25/18 recommended transfer to tertiary center - reference sent for [facility], but they do not have a bed. patient still having significant drainage ~ 200cc/day /Chronic hep C. Untreated. Outpatient follow-up. /Accel Hypertension. continue Cozaar to 100mg. Cont. Hydralazine prn. /Diarrhea: s/p lmodium prn x 1 /Tachycardia: secondary to dehydration and deconditioning. Fluids to be given and also started Low dose BB. /COPD. Compensated. nebs as needed /Neurofibromatosis: outpt follow up /Tobacco abuse. Patient counseled on smoking cessation FOR 15 MINS, Patient verbalized understanding and will think about it. /Severe protein calorie malnutrition; manager energy consulted. continue with TPN, npo now /Hypotension-resolved BP better, Disposition - Not stable for discharge. -On 06/05 had a meeting with Dr. Shelton and Adela, director of casework services. She called office of Surgeon at [facility], we are trying to transfer patient to. He is out of town. Adela will call again on Friday. History Interval history: Less abd pain No fever Still has difficulty sleeping - she says its a chronic problem for yesrs Hospitalist Physical - Physical exam Narrative exam: GEN: Not in acute distress, lying in bed, ill looking, malnourished HEENT: Normocephalic, atraumatic Neck: supple, No JVD Lungs: Clear to auscultation bilaterally, no wheeze Heart:S1 and S2 regular, no murmurs, rubs or gallop, Abd:soft, mild tender, dressing over abdomen, normal bowel sounds,surgical drain Ext: No edema, no clubbing or cyanosis Neuro: AAO x 3, moves all extremities, no focal neurological signs - Constitutional Vitals: Temp Pulse Resp BP Pulse Ox 98.5 F 78 18 137/72 96 06/06/18 07:15 06/06/18 09:38 06/06/18 08:27 06/06/18 09:38 06/06/18 07:15 General appearance: Present: no acute distress, cachectic Results - Labs CBC & Chem 7: 05/29/18 11:14 06/06/18 05:40 Labs: Laboratory Last Values WBC 3.8 K/mm3 (4.5-11.0) L 05/29/18 11:14 RBC 3.39 M/mm3 (3.65-5.03) L 05/29/18 11:14 Hgb 8.9 gm/dl (10.1-14.3) L 05/29/18 11:14 Hct 27.7 % (30.3-42.9) L 05/29/18 11:14 MCV 82 fl (79-97) 05/29/18 11:14 MCH 26 pg (28-32) L 05/29/18 11:14 MCHC 32 % (30-34) 05/29/18 11:14 RDW 16.1 % (13.2-15.2) H 05/29/18 11:14 Plt Count 154 K/mm3 (140-440) 05/29/18 11:14 Lymph % (Auto) 22.4 % (13.4-35.0) 05/29/18 11:14 [place] % (Auto) 12.7 % (0.0-7.3) H 05/29/18 11:14 Eos % (Auto) 0.4 % (0.0-4.3) 05/29/18 11:14 Baso % (Auto) 0.3 % (0.0-1.8) 05/29/18 11:14 Lymph # 0.8 K/mm3 (1.2-5.4) L 05/29/18 11:14 [place] # 0.5 K/mm3 (0.0-0.8) 05/29/18 11:14 Eos # 0.0 K/mm3 (0.0-0.4) 05/29/18 11:14 Baso # 0.0 K/mm3 (0.0-0.1) 05/29/18 11:14 Add Manual Diff Complete 04/30/18 05:41 Total Counted 100 04/30/18 05:41 Seg Neutrophils % 64.2 % (40.0-70.0) 05/29/18 11:14 Seg Neuts % (Manual) 88.0 % (40.0-70.0) H 04/30/18 05:41 Band Neutrophils % 1.0 % 04/30/18 05:41 Lymphocytes % (Manual) 8.0 % (13.4-35.0) L 04/30/18 05:41 Reactive Lymphs % (Man) 0 % 04/30/18 05:41 Monocytes % (Manual) 3.0 % (0.0-7.3) 04/30/18 05:41 Eosinophils % (Manual) 0 % (0.0-4.3) 04/30/18 05:41 Basophils % (Manual) 0 % (0.0-1.8) 04/30/18 05:41 Metamyelocytes % 0 % 04/30/18 05:41 Myelocytes % 0 % 04/30/18 05:41 Promyelocytes % 0 % 04/30/18 05:41 Blast Cells % 0 % 04/30/18 05:41 Nucleated RBC % Not Reportable 04/30/18 05:41 Seg Neutrophils # 2.4 K/mm3 (1.8-7.7) 05/29/18 11:14 Seg Neutrophils # Man 7.7 K/mm3 (1.8-7.7) 04/30/18 05:41 Band Neutrophils # 0.1 K/mm3 04/30/18 05:41 Lymphocytes # (Manual) 0.7 K/mm3 (1.2-5.4) L 04/30/18 05:41 Abs React Lymphs (Man) 0.0 K/mm3 04/30/18 05:41 Monocytes # (Manual) 0.3 K/mm3 (0.0-0.8) 04/30/18 05:41 Eosinophils # (Manual) 0.0 K/mm3 (0.0-0.4) 04/30/18 05:41 Basophils # (Manual) 0.0 K/mm3 (0.0-0.1) 04/30/18 05:41 Metamyelocytes # 0.0 K/mm3 04/30/18 05:41 Myelocytes # 0.0 K/mm3 04/30/18 05:41 Promyelocytes # 0.0 K/mm3 04/30/18 05:41 Blast Cells # 0.0 K/mm3 04/30/18 05:41 WBC Morphology Not Reportable 04/30/18 05:41 Hypersegmented Neuts Not Reportable 04/30/18 05:41 Hyposegmented Neuts Not Reportable 04/30/18 05:41 Hypogranular Neuts Not Reportable 04/30/18 05:41 Smudge Cells Not Reportable 04/30/18 05:41 Toxic Granulation Not Reportable 04/30/18 05:41 Toxic Vacuolation Not Reportable 04/30/18 05:41 Dohle Bodies Not Reportable 04/30/18 05:41 Pelger-Huet Anomaly Not Reportable 04/30/18 05:41 Nicole Rods Not Reportable 04/30/18 05:41 Platelet Estimate Appears normal 04/30/18 05:41 Clumped Platelets Not Reportable 04/30/18 05:41 Plt Clumps, EDTA Not Reportable 04/30/18 05:41 Large Platelets Not Reportable 04/30/18 05:41 Giant Platelets Not Reportable 04/30/18 05:41 Platelet Satelliting Not Reportable 04/30/18 05:41 Plt Morphology Comment Not Reportable 04/30/18 05:41 RBC Morphology Not Reportable 04/30/18 05:41 Dimorphic RBCs Not Reportable 04/30/18 05:41 Polychromasia Not Reportable 04/30/18 05:41 Hypochromasia 1+ 04/30/18 05:41 Poikilocytosis Not Reportable 04/30/18 05:41 Anisocytosis 1+ 04/30/18 05:41 Microcytosis Not Reportable 04/30/18 05:41 Macrocytosis Not Reportable 04/30/18 05:41 Spherocytes Not Reportable 04/30/18 05:41 Pappenheimer Bodies Not Reportable 04/30/18 05:41 Sickle Cells Not Reportable 04/30/18 05:41 Target Cells Not Reportable 04/30/18 05:41 Tear Drop Cells Not Reportable 04/30/18 05:41 Ovalocytes Few 04/30/18 05:41 Stomatocytes Few 04/29/18 05:18 Helmet Cells Not Reportable 04/30/18 05:41 Spann-Barst[place] Bodies Not Reportable 04/30/18 05:41 [place] Rings Not Reportable 04/30/18 05:41 [place] Cells Not Reportable 04/30/18 05:41 Bite Cells Not Reportable 04/30/18 05:41 Crenated Cell Not Reportable 04/30/18 05:41 Elliptocytes Not Reportable 04/30/18 05:41 Acanthocytes (Spur) Not Reportable 04/30/18 05:41 Rouleaux Not Reportable 04/30/18 05:41 Hemoglobin C Crystals Not Reportable 04/30/18 05:41 Schistocytes Not Reportable 04/30/18 05:41 Malaria parasites Not Reportable 04/30/18 05:41 Hung Bodies Not Reportable 04/30/18 05:41 Hem Pathologist Commnt No 04/30/18 05:41 PT 15.3 Sec. (12.2-14.9) H 04/22/18 05:19 INR 1.17 (0.87-1.13) H 04/22/18 05:19 APTT 29.4 Sec. (24.2-36.6) 04/19/18 05:19 POC ABG pH 7.367 (7.35-7.45) 04/19/18 00:19 POC ABG pCO2 36.8 (35-45) 04/19/18 00:19 POC ABG pO2 84 (80-105) 04/19/18 00:19 POC ABG HCO3 21.1 04/19/18 00:19 POC ABG Total CO2 22 04/19/18 00:19 POC ABG O2 Sat 96 04/19/18 00:19 POC ABG Base Excess -4 04/19/18 00:19 VBG pH 7.439 (7.320-7.420) H 04/18/18 14:30 FiO2 32 % 04/19/18 00:19 Sodium 138 mmol/L (137-145) 06/06/18 05:40 Potassium 4.3 mmol/L (3.6-5.0) 06/06/18 05:40 Chloride 105.2 mmol/L (98-107) 06/06/18 05:40 Carbon Dioxide 24 mmol/L (22-30) 06/06/18 05:40 Anion Gap 13 mmol/L 06/06/18 05:40 BUN 14 mg/dL (7-17) 06/06/18 05:40 Creatinine 0.2 mg/dL (0.7-1.2) L 06/06/18 05:40 Estimated GFR > 60 ml/min 06/06/18 05:40 BUN/Creatinine Ratio 70 % 06/06/18 05:40 Glucose 89 mg/dL (65-100) 06/06/18 05:40 POC Glucose 127 (70-105) H 06/06/18 06:04 Lactic Acid 1.20 mmol/L (0.7-2.0) 05/19/18 10:27 Calcium 8.4 mg/dL (8.4-10.2) 06/06/18 05:40 Phosphorus 3.70 mg/dL (2.5-4.5) 06/05/18 Unknown Magnesium 1.90 mg/dL (1.7-2.3) 06/05/18 Unknown Total Bilirubin 0.40 mg/dL (0.1-1.2) 06/06/18 05:40 AST 89 units/L (5-40) H 06/06/18 05:40 ALT 84 units/L (7-56) H 06/06/18 05:40 Alkaline Phosphatase 116 units/L (35-129) 06/06/18 05:40 Total Protein 5.9 g/dL (6.3-8.2) L 06/06/18 05:40 Albumin 3.0 g/dL (3.9-5) L 06/06/18 05:40 Albumin/Globulin Ratio 1.0 % 06/06/18 05:40 Prealbumin 0.113 g/L (0.200-0.400) L 05/20/18 06:25 Triglycerides 128 mg/dL (2-149) 05/24/18 05:40 Urine Color Yellow (Yellow) 04/20/18 13:35 Urine Turbidity Clear (Clear) 04/20/18 13:35 Urine pH 5.0 (5.0-7.0) 04/20/18 13:35 Ur Specific [place] 1.011 (1.003-1.030) 04/20/18 13:35 Urine Protein <15 mg/dl mg/dL (Negative) 04/20/18 13:35 Urine Glucose (UA) Neg mg/dL (Negative) 04/20/18 13:35 Urine Ketones 20 mg/dL (Negative) 04/20/18 13:35 Urine Blood Sm (Negative) 04/20/18 13:35 Urine Nitrite Neg (Negative) 04/20/18 13:35 Urine Bilirubin Neg (Negative) 04/20/18 13:35 Urine Urobilinogen 2.0 mg/dL (<2.0) 04/20/18 13:35 Ur Leukocyte Esterase Tr (Negative) 04/20/18 13:35 Urine WBC (Auto) 2.0 /HPF (0.0-6.0) 04/20/18 13:35 Urine RBC (Auto) 1.0 /HPF (0.0-6.0) 04/20/18 13:35 U Epithel Cells (Auto) 2.0 /HPF (0-13.0) 04/18/18 16:45 Urine Bacteria (Auto) 2+ /HPF (Negative) 04/18/18 16:45 Urine Mucus Few /HPF 04/20/18 13:35 Blood Type O POSITIVE 04/19/18 13:05 Antibody Screen Negative 04/19/18 13:05 Crossmatch See Detail 04/19/18 13:05 Active Medications - Current Medications Current Medications: Generic Name Dose Route Start Last Admin Trade Name Freq PRN Reason Stop Dose Admin Acetaminophen 650 mg 05/20/18 12:12 05/20/18 12:41 Tylenol UT 650 mg Q4H PRN Administration Fever >101 Albuterol 2.5 mg 04/18/18 18:30 05/03/18 15:15 Proventil IH 2.5 mg Q3HRT PRN Administration Shortness Of Breath Alprazolam 0.25 mg 06/05/18 14:11 06/06/18 09:39 Xanax PO 0.25 mg Q8H PRN Administration Anxiety Arformoterol Tartrate 15 mcg 05/16/18 20:00 06/06/18 08:01 Brovana Nebu IH 15 mcg Q12HRT DUSTIN Administration Benzocaine/Menthol 1 each 04/20/18 12:51 Cepacol X Strength MM Q2HR PRN Sore Throat Budesonide 0.5 mg 05/16/18 20:00 06/06/18 08:01 Pulmicort IH 0.5 mg Q12HRT DUSTIN Administration Fentanyl 25 mcg 05/17/18 11:00 06/04/18 16:04 Duragesic TD 25 mcg Q3D DUSTIN Administration Gabapentin 800 mg 05/02/18 20:00 06/06/18 09:38 Neurontin PO 800 mg TID DUSTIN Administration Hydralazine HCl 10 mg 04/21/18 11:45 05/07/18 05:50 Apresoline IV 10 mg Q4HR PRN Administration SBP >160 Hydromorphone HCl 0.5 mg 05/11/18 12:00 06/06/18 09:37 Dilaudid IV 0.5 mg Q4H PRN Administration Pain , Severe (7-10) Amino Acids/Electrolytes/Dextrose 1,800 mls @ 0 mls/hr 06/05/18 20:00 06/05/18 20:07 Tpn Adult IV 06/06/18 16:01 45 mls/hr DAILY@2000 DUSTIN Administration Protocol As Directed Loperamide HCl 2 mg 05/17/18 14:46 05/17/18 17:11 Imodium PO 2 mg Q2H PRN Administration Diarrhea Metoprolol Tartrate 12.5 mg 05/13/18 10:00 06/06/18 09:38 Lopressor PO 12.5 mg BID DUSTIN Administration Mirtazapine 15 mg 05/09/18 22:00 06/05/18 22:04 Remeron PO 15 mg QHS DUSTIN Administration Octreotide Acetate 100 mcg 05/08/18 14:00 06/06/18 05:26 Sandostatin SUB-Q 100 mcg Q8HR DUSTIN Administration Ondansetron HCl 4 mg 05/21/18 11:34 06/06/18 09:37 Zofran IV 4 mg Q4H PRN Administration Nausea And Vomiting Nutrition/Malnutrition Assess - Dietary Evaluation Nutrition/Malnutrition Findings: Nutrition Notes Start: 04/24/18 09:13 Freq: Status: Active Protocol: Document 06/05/18 08:49 CT (Rec: 06/05/18 08:54 CT [id number]) Co-Sign 06/05/18 08:49 LP Nutrition Notes Initial or Follow up Reassessment Current Diagnosis COPD Other Pertinent Diagnosis Perforated appendix s/p exp lap, Hep C Current Diet TPN at 75mL/hr Labs/Tests No recent labs. Pertinent Medications Reviewed Height 5 ft 1 in Weight 41 kg [place] Body Weight (kg) 47.72 BMI 17.0 Subjective/Other Information Day 40 TPN. Began cycling TPN to 18 hours/day and informed RN of change. Percent of energy/protein needs met: 80%/100% Burn Absent Trauma Absent #2 Nutrition Diagnosis Increased nutrient needs ( specify in comment below) Diagnosis Progress(for reassessment Continues documentation) #1 Nutrition Diagnosis Inadequate oral intake Diagnosis Progress(for reassessment Continues documentation) Is patient on ventilator? No Is Patient Ambulatory and/or Out of Bed Yes REE-(Mcintyre-St. Jeor-ambulatory/OOB) [ 1218.594 [id number]] Kcal/Kg value to use for calculation 40 Approximate Energy Requirements Using 1640 kcal/Kg Calculation Used for Recommendations Kcal/kg Additional Notes Pro needs 1.25-1.5g/k-63g /day Fluid needs 1ml/kcal Nutrition Intervention Change Diet Order: Continue CPN Nutrition Support: Cycle CPN for 20 hrs: 45 mL/hr x 1hr 95 mL/hr x 18 hr 45 mL/hr x 1 hr lipids Kcal 1,815 Protein (gm) 95 Carbohydrates (gm) 275 Fat (gm) 0 Fluid (mL) 2,050 Fiber (gm) 0 Goal #1 CPN to continue to meet 90-100 % energy and pro needs Goal #2 Wt gain/maintenance Anticipated Discharge Needs: Unable to determine at this time Follow-Up By: 06/06/18 Additional Comments Labs in am: CMP, Mg, Phos
--- NOTE | 2018-06-06 10:58 | Progress Note ---
Assessment and Plan Pt in good spirits. feeling well. ambulating down halls. 50 cc drainage / 24 hrs Abd soft. stable awaiting transfer arrangements for [facility]. Possibly Friday? Objective Vital Signs - 12hr 06/06/18 06/06/18 06/06/18 00:22 03:54 07:15 Temperature 98.2 F 98.3 F 98.5 F Pulse Rate 78 55 L 93 H Pulse Rate [ Throughout] Respiratory 17 18 18 Rate Respiratory Rate [ Throughout] Blood Pressure 127/63 131/73 Blood Pressure 137/72 [Left] O2 Sat by Pulse 98 98 96 Oximetry 06/06/18 06/06/18 06/06/18 07:50 08:27 09:38 Temperature Pulse Rate 78 Pulse Rate [ 78 79 Throughout] Respiratory Rate Respiratory 18 18 Rate [ Throughout] Blood Pressure 137/72 Blood Pressure [Left] O2 Sat by Pulse Oximetry - Labs 05/29/18 11:14 06/06/18 05:40 Diabetes panel 06/06/18 Range/Units 05:40 Sodium 138 (137-145) mmol/L Potassium 4.3 (3.6-5.0) mmol/L Chloride 105.2 (98-107) mmol/L Carbon Dioxide 24 (22-30) mmol/L BUN 14 (7-17) mg/dL Creatinine 0.2 L (0.7-1.2) mg/dL Glucose 89 (65-100) mg/dL Calcium 8.4 (8.4-10.2) mg/dL AST 89 H (5-40) units/L ALT 84 H (7-56) units/L Alkaline Phosphatase 116 (35-129) units/L Total Protein 5.9 L (6.3-8.2) g/dL Albumin 3.0 L (3.9-5) g/dL Calcium panel 06/06/18 Range/Units 05:40 Calcium 8.4 (8.4-10.2) mg/dL Albumin 3.0 L (3.9-5) g/dL Pituitary panel 06/06/18 Range/Units 05:40 Sodium 138 (137-145) mmol/L Potassium 4.3 (3.6-5.0) mmol/L Chloride 105.2 (98-107) mmol/L Carbon Dioxide 24 (22-30) mmol/L BUN 14 (7-17) mg/dL Creatinine 0.2 L (0.7-1.2) mg/dL Glucose 89 (65-100) mg/dL Calcium 8.4 (8.4-10.2) mg/dL Adrenal panel 06/06/18 Range/Units 05:40 Sodium 138 (137-145) mmol/L Potassium 4.3 (3.6-5.0) mmol/L Chloride 105.2 (98-107) mmol/L Carbon Dioxide 24 (22-30) mmol/L BUN 14 (7-17) mg/dL Creatinine 0.2 L (0.7-1.2) mg/dL Glucose 89 (65-100) mg/dL Calcium 8.4 (8.4-10.2) mg/dL Total Bilirubin 0.40 (0.1-1.2) mg/dL AST 89 H (5-40) units/L ALT 84 H (7-56) units/L Alkaline Phosphatase 116 (35-129) units/L Total Protein 5.9 L (6.3-8.2) g/dL Albumin 3.0 L (3.9-5) g/dL
[2018-06-06] MEDS: NORCO 5/325 PO PRN ×3 (13:41→22:35)
[2018-06-06] MEDS ORDERED: TPN ADULT 1,800 ML IV SCH (20:00)
[2018-06-06] MEDS: REMERON PO SCH (22:30)
[2018-06-07] MEDS: NORCO 5/325 PO PRN ×6 (02:45→23:00)
[2018-06-07 05:29] LABS: BUN/Creatinine Ratio 50; Blood Urea Nitrogen 15 mg/dL (7-17); Calcium 8.6 mg/dL (8.4-10.2); Hemolysis Index 1
[2018-06-07] MEDS: BROVANA NEBU IH SCH (07:23)
[2018-06-07] MEDS: PULMICORT IH SCH (07:23)
[2018-06-07] MEDS: NEURONTIN PO SCH ×3 (08:15→20:05)
--- NOTE | 2018-06-07 10:28 | Progress Note ---
Assessment and Plan Pt status quo. feeling well. "feeling stronger". 0 drainage yesterday Abd soft. surgically stable will check on transfer arrangement status tomorrow continue present care Selected Entries 06/05/18 06/06/18 06/06/18 07:00 07:15 08:27 Temperature 98.2 F 98.5 F Pulse Rate 82 Pulse Rate [ 79 Throughout] Respiratory 20 Rate Blood Pressure Blood Pressure 100/48 [Left] 06/06/18 06/07/18 09:38 07:35 Temperature 97.6 F Pulse Rate 78 80 Pulse Rate [ Throughout] Respiratory 18 Rate Blood Pressure 137/72 Blood Pressure 104/48 [Left] Objective Vital Signs - 12hr 06/06/18 06/06/18 06/07/18 22:30 23:48 04:52 Temperature Pulse Rate 95 H 95 H Pulse Rate [ 86 Throughout] Respiratory Rate Respiratory 18 Rate [ Throughout] Blood Pressure 113/57 Blood Pressure [Left] O2 Sat by Pulse 93 Oximetry 06/07/18 06/07/18 06:13 07:35 Temperature 97.8 F 97.6 F Pulse Rate 98 H 80 Pulse Rate [ Throughout] Respiratory 16 18 Rate Respiratory Rate [ Throughout] Blood Pressure Blood Pressure 107/69 104/48 [Left] O2 Sat by Pulse 95 95 Oximetry - Labs 05/29/18 11:14 06/07/18 05:00 Diabetes panel 06/07/18 Range/Units 05:00 Sodium 135 L (137-145) mmol/L Potassium 4.5 (3.6-5.0) mmol/L Chloride 103.5 (98-107) mmol/L Carbon Dioxide 23 (22-30) mmol/L BUN 15 (7-17) mg/dL Creatinine 0.3 L (0.7-1.2) mg/dL Glucose 98 (65-100) mg/dL Calcium 8.6 (8.4-10.2) mg/dL Calcium panel 06/07/18 Range/Units 05:00 Calcium 8.6 (8.4-10.2) mg/dL Phosphorus 3.90 (2.5-4.5) mg/dL Pituitary panel 06/07/18 Range/Units 05:00 Sodium 135 L (137-145) mmol/L Potassium 4.5 (3.6-5.0) mmol/L Chloride 103.5 (98-107) mmol/L Carbon Dioxide 23 (22-30) mmol/L BUN 15 (7-17) mg/dL Creatinine 0.3 L (0.7-1.2) mg/dL Glucose 98 (65-100) mg/dL Calcium 8.6 (8.4-10.2) mg/dL Adrenal panel 06/07/18 Range/Units 05:00 Sodium 135 L (137-145) mmol/L Potassium 4.5 (3.6-5.0) mmol/L Chloride 103.5 (98-107) mmol/L Carbon Dioxide 23 (22-30) mmol/L BUN 15 (7-17) mg/dL Creatinine 0.3 L (0.7-1.2) mg/dL Glucose 98 (65-100) mg/dL Calcium 8.6 (8.4-10.2) mg/dL
[2018-06-07] MEDS: DURAGESIC TD SCH (10:50)
--- NOTE | 2018-06-07 11:52 | Progress Note ---
Assessment and Plan Assessment and plan: The patient is a 57-year-old female with hypertension, neurofibromatosis, hepatitis C, COPD, nicotine dependence presented to the emergency room on 04/18/18 with complaints of abdominal pain going on for [address] scan obtained in the emergency room revealed a ruptured appendix with associated intra-abdominal abscess. General surgery was consulted and the patient underwent an emergent exploratory laparotomy with evacuation of pelvic abscess. She was noted to have a gangrenous, perforated appendix eroding including into the small bowel. As per the op note, the abscess could not be drained as the entire abscess and inflammatory process had trapped the small bowel, which was mobilized and she underwent an ileocolic anastomosis. The patient went back to the OR on 04/25/18 for drain dislodgment. * Continue local wound care and TPN * Surgical culture grew Ecoli and ester, completed treatment * CT abdomen: 05/18/18- Still shows minimal drainage, per surgery repeat CT of abd & pelvis with PO contrast done 05/25/18 showed no acute change - started on clear liquid but continue to abdominal pain and high drainage suspicion for non healing perforation, may need terciary center transfer * Urology was consulted for possible entro-vesico fistula due to the color of the urine, cystogram was normal. * Insurance denies LTAC, recommends SNF. But Patient refuses SNF * Dr. Shelton had discussed with surgeon at [facility] for poss transfer, to call office on Friday06/08/18 /Sepsis Etiology secondary to gangrenous and perforated appendix causing intra- abdominal/pelvic abscess. Patient is status post exploratory laparotomy with appendectomy and evacuation of pelvic abscess. Now off antibiotics and noted ID signed off. No fever off antibiotics. /Perforated appendix s/p exploratory lap Cont. TPN, started on clear liquid diet which increased drainage, suspicion for non healing perforation s/p repeat CT abdomen/pelvis on 05/25/18 recommended transfer to tertiary center - reference sent for [place], but they do not have a bed. patient still having significant drainage ~ 200cc/day /Chronic hep C. Untreated. Outpatient follow-up. /Accel Hypertension. continue Cozaar to 100mg. Cont. Hydralazine prn. /Diarrhea: s/p lmodium prn x 1 /Tachycardia: secondary to dehydration and deconditioning. Fluids to be given and also started Low dose BB. /COPD. Compensated. nebs as needed /Neurofibromatosis: outpt follow up /Tobacco abuse. Patient counseled on smoking cessation FOR 15 MINS, Patient verbalized understanding and will think about it. 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 continue with TPN, npo now /Hypotension-resolved BP better, Disposition - Not stable for discharge. -On 06/05 had a meeting with Dr. Shelton and Adela, counseling case manager. She called office of Surgeon at [facility], we are trying to transfer patient to. He is out of town. Adela will call again on Friday. History Interval history: Less abd pain No fever Still has difficulty sleeping - she says its a chronic problem for years Hospitalist Physical - Physical exam Narrative exam: GEN: Not in acute distress, lying in bed, ill looking, malnourished HEENT: Normocephalic, atraumatic Neck: supple, No JVD Lungs: Clear to auscultation bilaterally, no wheeze Heart:S1 and S2 regular, no murmurs, rubs or gallop, Abd:soft, mild tender, dressing over abdomen, normal bowel sounds,surgical drain Ext: No edema, no clubbing or cyanosis Neuro: AAO x 3, moves all extremities, no focal neurological signs - Constitutional Vitals: Temp Pulse Resp BP Pulse Ox 97.6 F 80 18 104/48 95 06/07/18 07:35 06/07/18 08:50 06/07/18 08:50 06/07/18 07:35 06/07/18 07:35 General appearance: Present: no acute distress, cachectic Results - Labs CBC & Chem 7: 05/29/18 11:14 06/07/18 05:00 Labs: Laboratory Last Values WBC 3.8 K/mm3 (4.5-11.0) L 05/29/18 11:14 RBC 3.39 M/mm3 (3.65-5.03) L 05/29/18 11:14 Hgb 8.9 gm/dl (10.1-14.3) L 05/29/18 11:14 Hct 27.7 % (30.3-42.9) L 05/29/18 11:14 MCV 82 fl (79-97) 05/29/18 11:14 MCH 26 pg (28-32) L 05/29/18 11:14 MCHC 32 % (30-34) 05/29/18 11:14 RDW 16.1 % (13.2-15.2) H 05/29/18 11:14 Plt Count 154 K/mm3 (140-440) 05/29/18 11:14 Lymph % (Auto) 22.4 % (13.4-35.0) 05/29/18 11:14 [place] % (Auto) 12.7 % (0.0-7.3) H 05/29/18 11:14 Eos % (Auto) 0.4 % (0.0-4.3) 05/29/18 11:14 Baso % (Auto) 0.3 % (0.0-1.8) 05/29/18 11:14 Lymph # 0.8 K/mm3 (1.2-5.4) L 05/29/18 11:14 [place] # 0.5 K/mm3 (0.0-0.8) 05/29/18 11:14 Eos # 0.0 K/mm3 (0.0-0.4) 05/29/18 11:14 Baso # 0.0 K/mm3 (0.0-0.1) 05/29/18 11:14 Add Manual Diff Complete 04/30/18 05:41 Total Counted 100 04/30/18 05:41 Seg Neutrophils % 64.2 % (40.0-70.0) 05/29/18 11:14 Seg Neuts % (Manual) 88.0 % (40.0-70.0) H 04/30/18 05:41 Band Neutrophils % 1.0 % 04/30/18 05:41 Lymphocytes % (Manual) 8.0 % (13.4-35.0) L 04/30/18 05:41 Reactive Lymphs % (Man) 0 % 04/30/18 05:41 Monocytes % (Manual) 3.0 % (0.0-7.3) 04/30/18 05:41 Eosinophils % (Manual) 0 % (0.0-4.3) 04/30/18 05:41 Basophils % (Manual) 0 % (0.0-1.8) 04/30/18 05:41 Metamyelocytes % 0 % 04/30/18 05:41 Myelocytes % 0 % 04/30/18 05:41 Promyelocytes % 0 % 04/30/18 05:41 Blast Cells % 0 % 04/30/18 05:41 Nucleated RBC % Not Reportable 04/30/18 05:41 Seg Neutrophils # 2.4 K/mm3 (1.8-7.7) 05/29/18 11:14 Seg Neutrophils # Man 7.7 K/mm3 (1.8-7.7) 04/30/18 05:41 Band Neutrophils # 0.1 K/mm3 04/30/18 05:41 Lymphocytes # (Manual) 0.7 K/mm3 (1.2-5.4) L 04/30/18 05:41 Abs React Lymphs (Man) 0.0 K/mm3 04/30/18 05:41 Monocytes # (Manual) 0.3 K/mm3 (0.0-0.8) 04/30/18 05:41 Eosinophils # (Manual) 0.0 K/mm3 (0.0-0.4) 04/30/18 05:41 Basophils # (Manual) 0.0 K/mm3 (0.0-0.1) 04/30/18 05:41 Metamyelocytes # 0.0 K/mm3 04/30/18 05:41 Myelocytes # 0.0 K/mm3 04/30/18 05:41 Promyelocytes # 0.0 K/mm3 04/30/18 05:41 Blast Cells # 0.0 K/mm3 04/30/18 05:41 WBC Morphology Not Reportable 04/30/18 05:41 Hypersegmented Neuts Not Reportable 04/30/18 05:41 Hyposegmented Neuts Not Reportable 04/30/18 05:41 Hypogranular Neuts Not Reportable 04/30/18 05:41 Smudge Cells Not Reportable 04/30/18 05:41 Toxic Granulation Not Reportable 04/30/18 05:41 Toxic Vacuolation Not Reportable 04/30/18 05:41 Dohle Bodies Not Reportable 04/30/18 05:41 Pelger-Huet Anomaly Not Reportable 04/30/18 05:41 Nicole Rods Not Reportable 04/30/18 05:41 Platelet Estimate Appears normal 04/30/18 05:41 Clumped Platelets Not Reportable 04/30/18 05:41 Plt Clumps, EDTA Not Reportable 04/30/18 05:41 Large Platelets Not Reportable 04/30/18 05:41 Giant Platelets Not Reportable 04/30/18 05:41 Platelet Satelliting Not Reportable 04/30/18 05:41 Plt Morphology Comment Not Reportable 04/30/18 05:41 RBC Morphology Not Reportable 04/30/18 05:41 Dimorphic RBCs Not Reportable 04/30/18 05:41 Polychromasia Not Reportable 04/30/18 05:41 Hypochromasia 1+ 04/30/18 05:41 Poikilocytosis Not Reportable 04/30/18 05:41 Anisocytosis 1+ 04/30/18 05:41 Microcytosis Not Reportable 04/30/18 05:41 Macrocytosis Not Reportable 04/30/18 05:41 Spherocytes Not Reportable 04/30/18 05:41 Pappenheimer Bodies Not Reportable 04/30/18 05:41 Sickle Cells Not Reportable 04/30/18 05:41 Target Cells Not Reportable 04/30/18 05:41 Tear Drop Cells Not Reportable 04/30/18 05:41 Ovalocytes Few 04/30/18 05:41 Stomatocytes Few 04/29/18 05:18 Helmet Cells Not Reportable 04/30/18 05:41 [place] Bodies Not Reportable 04/30/18 05:41 [place] Rings Not Reportable 04/30/18 05:41 [place] Cells Not Reportable 04/30/18 05:41 Bite Cells Not Reportable 04/30/18 05:41 Crenated Cell Not Reportable 04/30/18 05:41 Elliptocytes Not Reportable 04/30/18 05:41 Acanthocytes (Spur) Not Reportable 04/30/18 05:41 Rouleaux Not Reportable 04/30/18 05:41 Hemoglobin C Crystals Not Reportable 04/30/18 05:41 Schistocytes Not Reportable 04/30/18 05:41 Malaria parasites Not Reportable 04/30/18 05:41 Hung Bodies Not Reportable 04/30/18 05:41 Hem Pathologist Commnt No 04/30/18 05:41 PT 15.3 Sec. (12.2-14.9) H 04/22/18 05:19 INR 1.17 (0.87-1.13) H 04/22/18 05:19 APTT 29.4 Sec. (24.2-36.6) 04/19/18 05:19 POC ABG pH 7.367 (7.35-7.45) 04/19/18 00:19 POC ABG pCO2 36.8 (35-45) 04/19/18 00:19 POC ABG pO2 84 (80-105) 04/19/18 00:19 POC ABG HCO3 21.1 04/19/18 00:19 POC ABG Total CO2 22 04/19/18 00:19 POC ABG O2 Sat 96 04/19/18 00:19 POC ABG Base Excess -4 04/19/18 00:19 VBG pH 7.439 (7.320-7.420) H 04/18/18 14:30 FiO2 32 % 04/19/18 00:19 Sodium 135 mmol/L (137-145) L 06/07/18 05:00 Potassium 4.5 mmol/L (3.6-5.0) 06/07/18 05:00 Chloride 103.5 mmol/L (98-107) 06/07/18 05:00 Carbon Dioxide 23 mmol/L (22-30) 06/07/18 05:00 Anion Gap 13 mmol/L 06/07/18 05:00 BUN 15 mg/dL (7-17) 06/07/18 05:00 Creatinine 0.3 mg/dL (0.7-1.2) L 06/07/18 05:00 Estimated GFR > 60 ml/min 06/07/18 05:00 BUN/Creatinine Ratio 50 % 06/07/18 05:00 Glucose 98 mg/dL (65-100) 06/07/18 05:00 POC Glucose 134 (70-105) H 06/07/18 11:10 Lactic Acid 1.20 mmol/L (0.7-2.0) 05/19/18 10:27 Calcium 8.6 mg/dL (8.4-10.2) 06/07/18 05:00 Phosphorus 3.90 mg/dL (2.5-4.5) 06/07/18 05:00 Magnesium 2.00 mg/dL (1.7-2.3) 06/07/18 05:00 Total Bilirubin 0.40 mg/dL (0.1-1.2) 06/06/18 05:40 AST 89 units/L (5-40) H 06/06/18 05:40 ALT 84 units/L (7-56) H 06/06/18 05:40 Alkaline Phosphatase 116 units/L (35-129) 06/06/18 05:40 Total Protein 5.9 g/dL (6.3-8.2) L 06/06/18 05:40 Albumin 3.0 g/dL (3.9-5) L 06/06/18 05:40 Albumin/Globulin Ratio 1.0 % 06/06/18 05:40 Prealbumin 0.113 g/L (0.200-0.400) L 05/20/18 06:25 Triglycerides 128 mg/dL (2-149) 05/24/18 05:40 Urine Color Yellow (Yellow) 04/20/18 13:35 Urine Turbidity Clear (Clear) 04/20/18 13:35 Urine pH 5.0 (5.0-7.0) 04/20/18 13:35 Ur Specific [place] 1.011 (1.003-1.030) 04/20/18 13:35 Urine Protein <15 mg/dl mg/dL (Negative) 04/20/18 13:35 Urine Glucose (UA) Neg mg/dL (Negative) 04/20/18 13:35 Urine Ketones 20 mg/dL (Negative) 04/20/18 13:35 Urine Blood Sm (Negative) 04/20/18 13:35 Urine Nitrite Neg (Negative) 04/20/18 13:35 Urine Bilirubin Neg (Negative) 04/20/18 13:35 Urine Urobilinogen 2.0 mg/dL (<2.0) 04/20/18 13:35 Ur Leukocyte Esterase Tr (Negative) 04/20/18 13:35 Urine WBC (Auto) 2.0 /HPF (0.0-6.0) 04/20/18 13:35 Urine RBC (Auto) 1.0 /HPF (0.0-6.0) 04/20/18 13:35 U Epithel Cells (Auto) 2.0 /HPF (0-13.0) 04/18/18 16:45 Urine Bacteria (Auto) 2+ /HPF (Negative) 04/18/18 16:45 Urine Mucus Few /HPF 04/20/18 13:35 Blood Type O POSITIVE 04/19/18 13:05 Antibody Screen Negative 04/19/18 13:05 Crossmatch See Detail 04/19/18 13:05 Active Medications - Current Medications Current Medications: Generic Name Dose Route Start Last Admin Trade Name Freq PRN Reason Stop Dose Admin Acetaminophen 650 mg 05/20/18 12:12 05/20/18 12:41 Tylenol NV 650 mg Q4H PRN Administration Fever >101 Acetaminophen/Hydrocodone Bitart 1 each 06/06/18 11:51 06/07/18 10:47 [place] 5/325 PO 1 each Q4H PRN Administration Pain, Moderate (4-6) Albuterol 2.5 mg 04/18/18 18:30 05/03/18 15:15 Proventil IH 2.5 mg Q3HRT PRN Administration Shortness Of Breath Alprazolam 0.25 mg 06/05/18 14:11 06/06/18 20:25 Xanax PO 0.25 mg Q8H PRN Administration Anxiety Arformoterol Tartrate 15 mcg 05/16/18 20:00 06/07/18 07:23 Brovana Nebu IH 15 mcg Q12HRT DUSTIN Administration Benzocaine/Menthol 1 each 04/20/18 12:51 Cepacol X Strength MM Q2HR PRN Sore Throat Budesonide 0.5 mg 05/16/18 20:00 06/07/18 07:23 Pulmicort IH 0.5 mg Q12HRT DUSTIN Administration Fentanyl 25 mcg 05/17/18 11:00 06/07/18 10:50 Duragesic TD 25 mcg Q3D DUSTIN Administration Gabapentin 800 mg 05/02/18 20:00 06/06/18 20:25 Neurontin PO 800 mg TID DUSTIN Administration Hydralazine HCl 10 mg 04/21/18 11:45 05/07/18 05:50 Apresoline IV 10 mg Q4HR PRN Administration SBP >160 Amino Acids/Electrolytes/Dextrose 1,800 mls @ 0 mls/hr 06/06/18 20:00 06/06/18 20:09 Tpn Adult IV 06/07/18 19:59 60 mls/hr DAILY@2000 DUSTIN Administration Protocol As Directed Loperamide HCl 2 mg 05/17/18 14:46 05/17/18 17:11 Imodium PO 2 mg Q2H PRN Administration Diarrhea Metoprolol Tartrate 12.5 mg 05/13/18 10:00 06/06/18 22:30 Lopressor PO 12.5 mg BID DUSTIN Administration Mirtazapine 15 mg 05/09/18 22:00 06/06/18 22:30 Remeron PO 15 mg QHS DUSTIN Administration Octreotide Acetate 100 mcg 05/08/18 14:00 06/07/18 06:05 Sandostatin SUB-Q 100 mcg Q8HR DUSTIN Administration Ondansetron HCl 4 mg 05/21/18 11:34 06/06/18 09:37 Zofran IV 4 mg Q4H PRN Administration Nausea And Vomiting Nutrition/Malnutrition Assess - Dietary Evaluation Nutrition/Malnutrition Findings: Nutrition Notes Start: 04/24/18 09:13 Freq: Status: Active Protocol: Document 06/07/18 11:27 OL (Rec: 06/07/18 11:31 OL [id number]) Nutrition Notes Initial or Follow up Reassessment Other Pertinent Diagnosis Perforated appendix s/p exp lap, Hep C Current Diet 16hr cyclic TPN Labs/Tests Reviewed Pertinent Medications Reviewed Height 5 ft 1 in Weight 41 kg [place] Body Weight (kg) 47.72 BMI 17.0 Subjective/Other Information Day 42 TPN. Transition to 12 hr cyclic TPN. Run from 20:00- 8:00 Percent of energy/protein needs met: 80%/100% Burn Absent Trauma Absent #2 Nutrition Diagnosis Increased nutrient needs ( specify in comment below) Diagnosis Progress(for reassessment Continues documentation) #1 Nutrition Diagnosis Inadequate oral intake Diagnosis Progress(for reassessment Continues documentation) Is patient on ventilator? No Is Patient Ambulatory and/or Out of Bed Yes REE-(Carver-St. Jeor-ambulatory/OOB) [ 1218.594 [id number]] Kcal/Kg value to use for calculation 40 Approximate Energy Requirements Using 1640 kcal/Kg Calculation Used for Recommendations Kcal/kg Additional Notes Pro needs 1.25-1.5g/k-63g /day Fluid needs 1ml/kcal Nutrition Intervention Change Diet Order: Continue CPN Nutrition Support: 12hr cyclic CPN: 50mL/hr x 1hr , 155mL/hr x 10hr, 50mL/hr x 1hr Kcal 1,315 Protein (gm) 95 Carbohydrates (gm) 275 Fat (gm) 0 Fluid (mL) 1,805 Fiber (gm) 0 Goal #1 CPN to continue to meet 90-100 % energy and pro needs Goal #2 Wt gain/maintenance Anticipated Discharge Needs: Unable to determine at this time Follow-Up By: 06/08/18 Additional Comments Labs in AM: BMP, Mg, Phos
[2018-06-07] MEDS: ZOFRAN IV PRN (12:00)
[2018-06-07] MEDS: XANAX PO PRN (14:09)
[2018-06-07] MEDS: LOPRESSOR PO SCH ×2 (17:31→22:59)
[2018-06-07] MEDS ORDERED: TPN ADULT 1,800 ML IV SCH (20:00)
[2018-06-07] MEDS: REMERON PO SCH (22:59)
[2018-06-08] MEDS: NORCO 5/325 PO PRN ×5 (03:58→23:54)
[2018-06-08] MEDS: ZOFRAN IV PRN (04:11)
[2018-06-08 04:57] LABS: Hematocrit 27.1 % (30.3-42.9); Hemoglobin 8.9 gm/dl (10.1-14.3); Mean Corpuscular HGB Conc 33 % (30-34); Mean Corpuscular Volume 79 fl (79-97); Platelet Count 153 K/mm3 (140-440); Red Blood Count 3.42 M/mm3 (3.65-5.03)
[2018-06-08 05:05] LABS: BUN/Creatinine Ratio 75; Blood Urea Nitrogen 15 mg/dL (7-17); Calcium 8.1 mg/dL (8.4-10.2); Hemolysis Index 2
[2018-06-08] MEDS: BROVANA NEBU IH SCH ×3 (08:10→22:54)
[2018-06-08] MEDS: PULMICORT IH SCH ×3 (08:11→22:55)
[2018-06-08] MEDS: NEURONTIN PO SCH ×3 (08:29→21:32)
--- NOTE | 2018-06-08 11:15 | Progress Note ---
Assessment and Plan Pt status quo. no compl 0 drainage from sump drain over last [address]. Abd [address]. Malik currently in surgery at [facility]. left voice mail awaiting his call to determine Rx plan moving forward. Objective Vital Signs - 12hr 06/07/18 06/08/18 06/08/18 23:28 04:08 06:51 Temperature 98.3 F 98.1 F 98.1 F Pulse Rate 81 84 82 Respiratory 17 17 18 Rate Blood Pressure 121/62 123/61 105/54 O2 Sat by Pulse 96 97 96 Oximetry - Labs 06/08/18 04:20 06/08/18 04:20 Diabetes panel 06/08/18 Range/Units 04:20 Sodium 139 (137-145) mmol/L Potassium 4.4 (3.6-5.0) mmol/L Chloride 108.7 H (98-107) mmol/L Carbon Dioxide 24 (22-30) mmol/L BUN 15 (7-17) mg/dL Creatinine 0.2 L (0.7-1.2) mg/dL Glucose 120 H (65-100) mg/dL Calcium 8.1 L (8.4-10.2) mg/dL Calcium panel 06/08/18 Range/Units 04:20 Calcium 8.1 L (8.4-10.2) mg/dL Phosphorus 3.20 (2.5-4.5) mg/dL Pituitary panel 06/08/18 Range/Units 04:20 Sodium 139 (137-145) mmol/L Potassium 4.4 (3.6-5.0) mmol/L Chloride 108.7 H (98-107) mmol/L Carbon Dioxide 24 (22-30) mmol/L BUN 15 (7-17) mg/dL Creatinine 0.2 L (0.7-1.2) mg/dL Glucose 120 H (65-100) mg/dL Calcium 8.1 L (8.4-10.2) mg/dL Adrenal panel 06/08/18 Range/Units 04:20 Sodium 139 (137-145) mmol/L Potassium 4.4 (3.6-5.0) mmol/L Chloride 108.7 H (98-107) mmol/L Carbon Dioxide 24 (22-30) mmol/L BUN 15 (7-17) mg/dL Creatinine 0.2 L (0.7-1.2) mg/dL Glucose 120 H (65-100) mg/dL Calcium 8.1 L (8.4-10.2) mg/dL
[2018-06-08] MEDS: XANAX PO PRN ×2 (12:10→21:32)
[2018-06-08] MEDS: LOPRESSOR PO SCH ×2 (12:17→21:31)
--- NOTE | 2018-06-08 13:51 | Progress Note ---
Assessment and Plan Assessment and plan: The patient is a 57-year-old female with hypertension, neurofibromatosis, hepatitis C, COPD, nicotine dependence presented to the emergency room on 04/18/18 with complaints of abdominal pain going on for [address] scan obtained in the emergency room revealed a ruptured appendix with associated intra-abdominal abscess. General surgery was consulted and the patient underwent an emergent exploratory laparotomy with evacuation of pelvic abscess. She was noted to have a gangrenous, perforated appendix eroding including into the small bowel. As per the op note, the abscess could not be drained as the entire abscess and inflammatory process had trapped the small bowel, which was mobilized and she underwent an ileocolic anastomosis. The patient went back to the OR on 04/25/18 for drain dislodgment. * Continue local wound care and TPN * Surgical culture grew Ecoli and ester, completed treatment * CT abdomen: 05/18/18- Still shows minimal drainage, per surgery repeat CT of abd & pelvis with PO contrast done 05/25/18 showed no acute change - started on clear liquid but continue to abdominal pain and high drainage suspicion for non healing perforation, may need terciary center transfer * Urology was consulted for possible entro-vesico fistula due to the color of the urine, cystogram was normal. * Insurance denies LTAC, recommends SNF. But Patient refuses SNF * Dr. Shelton had discussed with surgeon at [facility] for poss transfer. * Dr. Shelton will call Dr. Malik, Surgeon again later today 06/08/18 Sepsis Etiology secondary to gangrenous and perforated appendix causing intra-abdominal/pelvic abscess. Patient is status post exploratory laparotomy with appendectomy and evacuation of pelvic abscess. Now off antibiotics and noted ID signed off. No fever off antibiotics. Perforated appendix s/p exploratory lap Cont. TPN, started on clear liquid diet which increased drainage, suspicion for non healing perforation s/p repeat CT abdomen/pelvis on 05/25/18 recommended transfer to tertiary center - reference sent for [place], but she was not accepted, they did not have a bed. Chronic hep C. Untreated. Outpatient follow-up. Accel Hypertension. continue Cozaar to 100mg. Cont. Hydralazine prn. Diarrhea: s/p lmodium prn x 1 Tachycardia: secondary to dehydration and deconditioning. COPD. Compensated. nebs as needed Neurofibromatosis: outpt follow up Tobacco abuse. Patient counseled on smoking cessation FOR 15 MINS, Patient verbalized understanding and will think about it. 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 continue with TPN, npo now Hypotension-resolved BP stable Disposition - -On 06/[address] Shelton and Adela, family caseworker. She called office of Surgeon at [facility], we are trying to transfer patient to. He is out of town. Adela will call again on Friday. -06/08/18. Discussed with Dr. Shelton. He states he called surgeon Dr. Malik at [facility], was unable to reach him because he is in the OR. Will try again History Interval history: Less abd pain No fever Chronic insomnia-she says its a chronic problem for years Minimal drainage from abd drain Hospitalist Physical - Physical exam Narrative exam: GEN: Not in acute distress, lying in bed, ill looking, malnourished HEENT: Normocephalic, atraumatic Neck: supple, No JVD Lungs: Clear to auscultation bilaterally, no wheeze Heart:S1 and S2 regular, no murmurs, rubs or gallop, Abd:soft, mild tender, dressing over abdomen, normal bowel sounds,surgical drain Ext: No edema, no clubbing or cyanosis Neuro: AAO x 3, moves all extremities, no focal neurological signs - Constitutional Vitals: Temp Pulse Resp BP Pulse Ox 98.8 F 100 H 20 132/69 100 06/08/18 11:20 06/08/18 11:00 06/08/18 11:20 06/08/18 11:20 06/08/18 11:00 General appearance: Present: no acute distress, cachectic Results - Labs CBC & Chem 7: 06/08/18 04:20 06/08/18 04:20 Labs: Laboratory Last Values WBC 3.2 K/mm3 (4.5-11.0) L 06/08/18 04:20 RBC 3.42 M/mm3 (3.65-5.03) L 06/08/18 04:20 Hgb 8.9 gm/dl (10.1-14.3) L 06/08/18 04:20 Hct 27.1 % (30.3-42.9) L 06/08/18 04:20 MCV 79 fl (79-97) 06/08/18 04:20 MCH 26 pg (28-32) L 06/08/18 04:20 MCHC 33 % (30-34) 06/08/18 04:20 RDW 16.0 % (13.2-15.2) H 06/08/18 04:20 Plt Count 153 K/mm3 (140-440) 06/08/18 04:20 Lymph % (Auto) 22.4 % (13.4-35.0) 05/29/18 11:14 Simpson % (Auto) 12.7 % (0.0-7.3) H 05/29/18 11:14 Eos % (Auto) 0.4 % (0.0-4.3) 05/29/18 11:14 Baso % (Auto) 0.3 % (0.0-1.8) 05/29/18 11:14 Lymph # 0.8 K/mm3 (1.2-5.4) L 05/29/18 11:14 Simpson # 0.5 K/mm3 (0.0-0.8) 05/29/18 11:14 Eos # 0.0 K/mm3 (0.0-0.4) 05/29/18 11:14 Baso # 0.0 K/mm3 (0.0-0.1) 05/29/18 11:14 Add Manual Diff Complete 04/30/18 05:41 Total Counted 100 04/30/18 05:41 Seg Neutrophils % 64.2 % (40.0-70.0) 05/29/18 11:14 Seg Neuts % (Manual) 88.0 % (40.0-70.0) H 04/30/18 05:41 Band Neutrophils % 1.0 % 04/30/18 05:41 Lymphocytes % (Manual) 8.0 % (13.4-35.0) L 04/30/18 05:41 Reactive Lymphs % (Man) 0 % 04/30/18 05:41 Monocytes % (Manual) 3.0 % (0.0-7.3) 04/30/18 05:41 Eosinophils % (Manual) 0 % (0.0-4.3) 04/30/18 05:41 Basophils % (Manual) 0 % (0.0-1.8) 04/30/18 05:41 Metamyelocytes % 0 % 04/30/18 05:41 Myelocytes % 0 % 04/30/18 05:41 Promyelocytes % 0 % 04/30/18 05:41 Blast Cells % 0 % 04/30/18 05:41 Nucleated RBC % Not Reportable 04/30/18 05:41 Seg Neutrophils # 2.4 K/mm3 (1.8-7.7) 05/29/18 11:14 Seg Neutrophils # Man 7.7 K/mm3 (1.8-7.7) 04/30/18 05:41 Band Neutrophils # 0.1 K/mm3 04/30/18 05:41 Lymphocytes # (Manual) 0.7 K/mm3 (1.2-5.4) L 04/30/18 05:41 Abs React Lymphs (Man) 0.0 K/mm3 04/30/18 05:41 Monocytes # (Manual) 0.3 K/mm3 (0.0-0.8) 04/30/18 05:41 Eosinophils # (Manual) 0.0 K/mm3 (0.0-0.4) 04/30/18 05:41 Basophils # (Manual) 0.0 K/mm3 (0.0-0.1) 04/30/18 05:41 Metamyelocytes # 0.0 K/mm3 04/30/18 05:41 Myelocytes # 0.0 K/mm3 04/30/18 05:41 Promyelocytes # 0.0 K/mm3 04/30/18 05:41 Blast Cells # 0.0 K/mm3 04/30/18 05:41 WBC Morphology Not Reportable 04/30/18 05:41 Hypersegmented Neuts Not Reportable 04/30/18 05:41 Hyposegmented Neuts Not Reportable 04/30/18 05:41 Hypogranular Neuts Not Reportable 04/30/18 05:41 Smudge Cells Not Reportable 04/30/18 05:41 Toxic Granulation Not Reportable 04/30/18 05:41 Toxic Vacuolation Not Reportable 04/30/18 05:41 Dohle Bodies Not Reportable 04/30/18 05:41 Pelger-Huet Anomaly Not Reportable 04/30/18 05:41 Nicole Rods Not Reportable 04/30/18 05:41 Platelet Estimate Appears normal 04/30/18 05:41 Clumped Platelets Not Reportable 04/30/18 05:41 Plt Clumps, EDTA Not Reportable 04/30/18 05:41 Large Platelets Not Reportable 04/30/18 05:41 Giant Platelets Not Reportable 04/30/18 05:41 Platelet Satelliting Not Reportable 04/30/18 05:41 Plt Morphology Comment Not Reportable 04/30/18 05:41 RBC Morphology Not Reportable 04/30/18 05:41 Dimorphic RBCs Not Reportable 04/30/18 05:41 Polychromasia Not Reportable 04/30/18 05:41 Hypochromasia 1+ 04/30/18 05:41 Poikilocytosis Not Reportable 04/30/18 05:41 Anisocytosis 1+ 04/30/18 05:41 Microcytosis Not Reportable 04/30/18 05:41 Macrocytosis Not Reportable 04/30/18 05:41 Spherocytes Not Reportable 04/30/18 05:41 Pappenheimer Bodies Not Reportable 04/30/18 05:41 Sickle Cells Not Reportable 04/30/18 05:41 Target Cells Not Reportable 04/30/18 05:41 Tear Drop Cells Not Reportable 04/30/18 05:41 Ovalocytes Few 04/30/18 05:41 Stomatocytes Few 04/29/18 05:18 Helmet Cells Not Reportable 04/30/18 05:41 Spann-Gardiner Bodies Not Reportable 04/30/18 05:41 [place] Rings Not Reportable 04/30/18 05:41 [place] Cells Not Reportable 04/30/18 05:41 Bite Cells Not Reportable 04/30/18 05:41 Crenated Cell Not Reportable 04/30/18 05:41 Elliptocytes Not Reportable 04/30/18 05:41 Acanthocytes (Spur) Not Reportable 04/30/18 05:41 Rouleaux Not Reportable 04/30/18 05:41 Hemoglobin C Crystals Not Reportable 04/30/18 05:41 Schistocytes Not Reportable 04/30/18 05:41 Malaria parasites Not Reportable 04/30/18 05:41 Hung Bodies Not Reportable 04/30/18 05:41 Hem Pathologist Commnt No 04/30/18 05:41 PT 15.3 Sec. (12.2-14.9) H 04/22/18 05:19 INR 1.17 (0.87-1.13) H 04/22/18 05:19 APTT 29.4 Sec. (24.2-36.6) 04/19/18 05:19 POC ABG pH 7.367 (7.35-7.45) 04/19/18 00:19 POC ABG pCO2 36.8 (35-45) 04/19/18 00:19 POC ABG pO2 84 (80-105) 04/19/18 00:19 POC ABG HCO3 21.1 04/19/18 00:19 POC ABG Total CO2 22 04/19/18 00:19 POC ABG O2 Sat 96 04/19/18 00:19 POC ABG Base Excess -4 04/19/18 00:19 VBG pH 7.439 (7.320-7.420) H 04/18/18 14:30 FiO2 32 % 04/19/18 00:19 Sodium 139 mmol/L (137-145) 06/08/18 04:20 Potassium 4.4 mmol/L (3.6-5.0) 06/08/18 04:20 Chloride 108.7 mmol/L (98-107) H 06/08/18 04:20 Carbon Dioxide 24 mmol/L (22-30) 06/08/18 04:20 Anion Gap 11 mmol/L 06/08/18 04:20 BUN 15 mg/dL (7-17) 06/08/18 04:20 Creatinine 0.2 mg/dL (0.7-1.2) L 06/08/18 04:20 Estimated GFR > 60 ml/min 06/08/18 04:20 BUN/Creatinine Ratio 75 % 06/08/18 04:20 Glucose 120 mg/dL (65-100) H 06/08/18 04:20 POC Glucose 109 (70-105) H 06/08/18 11:24 Lactic Acid 1.20 mmol/L (0.7-2.0) 05/19/18 10:27 Calcium 8.1 mg/dL (8.4-10.2) L 06/08/18 04:20 Phosphorus 3.20 mg/dL (2.5-4.5) 06/08/18 04:20 Magnesium 1.90 mg/dL (1.7-2.3) 06/08/18 04:20 Total Bilirubin 0.40 mg/dL (0.1-1.2) 06/06/18 05:40 AST 89 units/L (5-40) H 06/06/18 05:40 ALT 84 units/L (7-56) H 06/06/18 05:40 Alkaline Phosphatase 116 units/L (35-129) 06/06/18 05:40 Total Protein 5.9 g/dL (6.3-8.2) L 06/06/18 05:40 Albumin 3.0 g/dL (3.9-5) L 06/06/18 05:40 Albumin/Globulin Ratio 1.0 % 06/06/18 05:40 Prealbumin 0.113 g/L (0.200-0.400) L 05/20/18 06:25 Triglycerides 128 mg/dL (2-149) 05/24/18 05:40 Urine Color Yellow (Yellow) 04/20/18 13:35 Urine Turbidity Clear (Clear) 04/20/18 13:35 Urine pH 5.0 (5.0-7.0) 04/20/18 13:35 Ur Specific [place] 1.011 (1.003-1.030) 04/20/18 13:35 Urine Protein <15 mg/dl mg/dL (Negative) 04/20/18 13:35 Urine Glucose (UA) Neg mg/dL (Negative) 04/20/18 13:35 Urine Ketones 20 mg/dL (Negative) 04/20/18 13:35 Urine Blood Sm (Negative) 04/20/18 13:35 Urine Nitrite Neg (Negative) 04/20/18 13:35 Urine Bilirubin Neg (Negative) 04/20/18 13:35 Urine Urobilinogen 2.0 mg/dL (<2.0) 04/20/18 13:35 Ur Leukocyte Esterase Tr (Negative) 04/20/18 13:35 Urine WBC (Auto) 2.0 /HPF (0.0-6.0) 04/20/18 13:35 Urine RBC (Auto) 1.0 /HPF (0.0-6.0) 04/20/18 13:35 U Epithel Cells (Auto) 2.0 /HPF (0-13.0) 04/18/18 16:45 Urine Bacteria (Auto) 2+ /HPF (Negative) 04/18/18 16:45 Urine Mucus Few /HPF 04/20/18 13:35 Blood Type O POSITIVE 04/19/18 13:05 Antibody Screen Negative 04/19/18 13:05 Crossmatch See Detail 04/19/18 13:05 Active Medications - Current Medications Current Medications: Generic Name Dose Route Start Last Admin Trade Name Freq PRN Reason Stop Dose Admin Acetaminophen 650 mg 05/20/18 12:12 05/20/18 12:41 Tylenol ND 650 mg Q4H PRN Administration Fever >101 Acetaminophen/Hydrocodone Bitart 1 each 06/06/18 11:51 06/08/18 08:30 [place] 5/325 PO 1 each Q4H PRN Administration Pain, Moderate (4-6) Albuterol 2.5 mg 04/18/18 18:30 05/03/18 15:15 Proventil IH 2.5 mg Q3HRT PRN Administration Shortness Of Breath Alprazolam 0.25 mg 06/05/18 14:11 06/08/18 12:10 Xanax PO 0.25 mg Q8H PRN Administration Anxiety Arformoterol Tartrate 15 mcg 05/16/18 20:00 06/08/18 10:21 Brovana Nebu IH Not Given Q12HRT DUSTIN Benzocaine/Menthol 1 each 04/20/18 12:51 Cepacol X Strength MM Q2HR PRN Sore Throat Budesonide 0.5 mg 05/16/18 20:00 06/08/18 10:21 Pulmicort IH Not Given Q12HRT DUSTIN Fentanyl 25 mcg 05/17/18 11:00 06/07/18 10:50 Duragesic TD 25 mcg Q3D DUSTIN Administration Gabapentin 800 mg 05/02/18 20:00 06/08/18 08:29 Neurontin PO 800 mg TID DUSTIN Administration Hydralazine HCl 10 mg 04/21/18 11:45 05/07/18 05:50 Apresoline IV 10 mg Q4HR PRN Administration SBP >160 Amino Acids/Electrolytes/Dextrose 1,800 mls @ 0 mls/hr 06/07/18 20:00 06/07/18 20:05 Tpn Adult IV 06/08/18 19:59 165 mls/hr DAILY@1999 [facility] Administration Protocol As Directed Amino Acids/Electrolytes/Dextrose 1,800 mls @ 0 mls/hr 06/08/18 20:00 Tpn Adult IV 06/09/18 08:01 DAILY@1999 [facility] Protocol As Directed Fat Emulsion Intravenous 250 mls @ 21 mls/hr 06/08/18 20:00 Intralipid 20% IV 06/09/18 08:00 DAILY@1999 [facility] Loperamide HCl 2 mg 05/17/18 14:46 05/17/18 17:11 Imodium PO 2 mg Q2H PRN Administration Diarrhea Metoprolol Tartrate 12.5 mg 05/13/18 10:00 06/07/18 22:59 Lopressor PO 12.5 mg BID DUSTIN Administration Mirtazapine 15 mg 05/09/18 22:00 06/07/18 22:59 Remeron PO 15 mg QHS DUSTIN Administration Octreotide Acetate 100 mcg 05/08/18 14:00 06/08/18 06:37 Sandostatin SUB-Q 100 mcg Q8HR DUSTIN Administration Ondansetron HCl 4 mg 05/21/18 11:34 06/08/18 04:11 Zofran IV 4 mg Q4H PRN Administration Nausea And Vomiting Nutrition/Malnutrition Assess - Dietary Evaluation Nutrition/Malnutrition Findings: Nutrition Notes Start: 04/24/18 09:13 Freq: Status: Active Protocol: Document 06/08/18 11:10 OL (Rec: 06/08/18 11:15 OL [id number]) Nutrition Notes Initial or Follow up Reassessment Other Pertinent Diagnosis Perforated appendix s/p exp lap, Hep C Current Diet 12hr cyclic TPN Labs/Tests Reviewed Pertinent Medications Reviewed Height 5 ft 1 in Weight 40.1 kg [place] Body Weight (kg) 47.72 BMI 16.7 Subjective/Other Information Day 43 TPN. Continue cyclic TPN. Percent of energy/protein needs met: 80%/100% Burn Absent Trauma Absent #2 Nutrition Diagnosis Increased nutrient needs ( specify in comment below) Diagnosis Progress(for reassessment Continues documentation) #1 Nutrition Diagnosis Inadequate oral intake Diagnosis Progress(for reassessment Continues documentation) Is patient on ventilator? No Is Patient Ambulatory and/or Out of Bed Yes REE-([place]-St. Jeor-ambulatory/OOB) [ 1206.894 [id number]] Kcal/Kg value to use for calculation 40 Approximate Energy Requirements Using 1604 kcal/Kg Calculation Used for Recommendations Kcal/kg Additional Notes Pro needs 1.25-1.5g/k-63g /day Fluid needs 1ml/kcal Nutrition Intervention Change Diet Order: Continue CPN Nutrition Support: 12hr cyclic CPN: 75mL/hr x 1hr , 165mL/hr x 10hr, 75mL/hr x 1hr: lipid Kcal 1,815 Protein (gm) 95 Carbohydrates (gm) 275 Fat (gm) 0 Fluid (mL) 2,050 Fiber (gm) 0 Goal #1 CPN to continue to meet 90-100 % energy and pro needs Goal #2 Wt gain/maintenance Anticipated Discharge Needs: Unable to determine at this time Follow-Up By: 06/09/18 Additional Comments Labs in AM: BMP, Mg, Phos, triglycerides
[2018-06-08] MEDS ORDERED: INTRALIPID 20% 250 ML IV SCH (20:00)
[2018-06-08] MEDS ORDERED: TPN ADULT 1,800 ML IV SCH (20:00)
[2018-06-08] MEDS: REMERON PO SCH (21:32)
[2018-06-09] MEDS: ZOFRAN IV PRN ×5 (01:28→20:47)
[2018-06-09] MEDS: NORCO 5/325 PO PRN ×4 (05:00→20:47)
[2018-06-09 06:14] LABS: BUN/Creatinine Ratio 55; Blood Urea Nitrogen 11 mg/dL (7-17); Calcium 7.5 mg/dL (8.4-10.2); Hemolysis Index 32
[2018-06-09] MEDS: LOPRESSOR PO SCH ×2 (09:47→22:57)
[2018-06-09] MEDS: NEURONTIN PO SCH ×3 (09:47→20:15)
[2018-06-09] MEDS: BROVANA NEBU IH SCH ×2 (11:00→20:50)
[2018-06-09] MEDS: PULMICORT IH SCH ×2 (11:00→20:50)
--- NOTE | 2018-06-09 11:55 | Progress Note ---
Assessment and Plan Assessment and plan: Sepsis Etiology secondary to gangrenous and perforated appendix causing intra- abdominal/pelvic abscess. Patient is status post exploratory laparotomy with appendectomy and evacuation of pelvic abscess. Now off antibiotics and noted ID signed off. No fever off antibiotics. Perforated appendix s/p exploratory lap Cont. TPN, started on clear liquid diet which increased drainage, suspicion for non healing perforation s/p repeat CT abdomen/pelvis on 05/25/18 recommended transfer to tertiary center - reference sent for [place], but she was not accepted, they did not have a bed. Chronic hep C. Untreated. Outpatient follow-up. Accel Hypertension. continue Cozaar to 100mg. Cont. Hydralazine prn. Diarrhea: s/p lmodium prn x 1 Tachycardia: secondary to dehydration and deconditioning. COPD. Compensated. nebs as needed Neurofibromatosis: outpt follow up Tobacco abuse. Patient counseled on smoking cessation FOR 15 MINS, Patient verbalized understanding and will think about it. Severe protein calorie malnutrition; first aid nurse consulted. continue with TPN, npo now Hypotension-resolved BP stable Disposition -06/08/18. Discussed with Dr. Shelton. He states he called surgeon Dr. Malik at [facility], was unable to reach him because he is in the OR. Will try again History Interval history: The patient is a 57-year-old female with hypertension, neurofibromatosis, hepatitis C, COPD, nicotine dependence presented to the emergency room on 04/18/18 with complaints of abdominal pain going on for [address] scan obtained in the emergency room revealed a ruptured appendix with associated intra-abdominal ab scess. General surgery was consulted and the patient underwent an emergent exploratory laparotomy with evacuation of pelvic abscess. She was noted to have a gangrenous, perforated appendix eroding including into the small bowel. As per the op note, the abscess could not be drained as the entire abscess and inflammatory process had trapped the small bowel, which was mobilized and she underwent an ileocolic anastomosis. The patient went back to the OR on 04/25/18 for drain dislodgment. Patient had surgical culture which grew Ecoli and ester, completed treatment. CT abdomen: 05/18/18- Still showed minimal drainage, per surgery. Patient underwent follow-up repeat CT of abd & pelvis with PO contrast done 05/25/18 showed no acute change. At that time, patient was started on clear liquid but continue to abdominal pain and high drainage suspicious for non healing perforation. Urology was consulted for possible entro-vesico fistula due to the color of the urine, cystogram was normal. Dr. Shelton had discussed with surgeon at [facility] for poss transfer. Dr. Shelton to call Dr. Malik, Surgeon Hospitalist Physical - Constitutional Vitals: Temp Pulse Resp BP Pulse Ox 97.7 F 84 18 157/69 96 06/09/18 07:00 06/09/18 11:15 06/09/18 11:15 06/09/18 07:00 06/09/18 07:00 General appearance: Present: no acute distress, cachectic - EENT Eyes: Present: PERRL, EOM intact ENT: hearing intact, clear oral mucosa, dentition normal - Neck Neck: Present: supple, normal ROM - Respiratory Respiratory effort: normal Respiratory: bilateral: CTA - Cardiovascular Rhythm: regular Heart Sounds: Present: S1 & S2. Absent: gallop, rub - Extremities Extremities: no ischemia, No edema, Full ROM - Abdominal General gastrointestinal: soft, non-tender, non-distended, normal bowel sounds - Integumentary Integumentary: Present: clear, warm, dry - Neurologic Neurologic: CNII-XII intact, moves all extremities Results - Labs CBC & Chem 7: 06/08/18 04:20 06/09/18 Unknown Labs: Laboratory Last Values WBC 3.2 K/mm3 (4.5-11.0) L 06/08/18 04:20 RBC 3.42 M/mm3 (3.65-5.03) L 06/08/18 04:20 Hgb 8.9 gm/dl (10.1-14.3) L 06/08/18 04:20 Hct 27.1 % (30.3-42.9) L 06/08/18 04:20 MCV 79 fl (79-97) 06/08/18 04:20 MCH 26 pg (28-32) L 06/08/18 04:20 MCHC 33 % (30-34) 06/08/18 04:20 RDW 16.0 % (13.2-15.2) H 06/08/18 04:20 Plt Count 153 K/mm3 (140-440) 06/08/18 04:20 Lymph % (Auto) 22.4 % (13.4-35.0) 05/29/18 11:14 Nolan % (Auto) 12.7 % (0.0-7.3) H 05/29/18 11:14 Eos % (Auto) 0.4 % (0.0-4.3) 05/29/18 11:14 Baso % (Auto) 0.3 % (0.0-1.8) 05/29/18 11:14 Lymph # 0.8 K/mm3 (1.2-5.4) L 05/29/18 11:14 Nolan # 0.5 K/mm3 (0.0-0.8) 05/29/18 11:14 Eos # 0.0 K/mm3 (0.0-0.4) 05/29/18 11:14 Baso # 0.0 K/mm3 (0.0-0.1) 05/29/18 11:14 Add Manual Diff Complete 04/30/18 05:41 Total Counted 100 04/30/18 05:41 Seg Neutrophils % 64.2 % (40.0-70.0) 05/29/18 11:14 Seg Neuts % (Manual) 88.0 % (40.0-70.0) H 04/30/18 05:41 Band Neutrophils % 1.0 % 04/30/18 05:41 Lymphocytes % (Manual) 8.0 % (13.4-35.0) L 04/30/18 05:41 Reactive Lymphs % (Man) 0 % 04/30/18 05:41 Monocytes % (Manual) 3.0 % (0.0-7.3) 04/30/18 05:41 Eosinophils % (Manual) 0 % (0.0-4.3) 04/30/18 05:41 Basophils % (Manual) 0 % (0.0-1.8) 04/30/18 05:41 Metamyelocytes % 0 % 04/30/18 05:41 Myelocytes % 0 % 04/30/18 05:41 Promyelocytes % 0 % 04/30/18 05:41 Blast Cells % 0 % 04/30/18 05:41 Nucleated RBC % Not Reportable 04/30/18 05:41 Seg Neutrophils # 2.4 K/mm3 (1.8-7.7) 05/29/18 11:14 Seg Neutrophils # Man 7.7 K/mm3 (1.8-7.7) 04/30/18 05:41 Band Neutrophils # 0.1 K/mm3 04/30/18 05:41 Lymphocytes # (Manual) 0.7 K/mm3 (1.2-5.4) L 04/30/18 05:41 Abs React Lymphs (Man) 0.0 K/mm3 04/30/18 05:41 Monocytes # (Manual) 0.3 K/mm3 (0.0-0.8) 04/30/18 05:41 Eosinophils # (Manual) 0.0 K/mm3 (0.0-0.4) 04/30/18 05:41 Basophils # (Manual) 0.0 K/mm3 (0.0-0.1) 04/30/18 05:41 Metamyelocytes # 0.0 K/mm3 04/30/18 05:41 Myelocytes # 0.0 K/mm3 04/30/18 05:41 Promyelocytes # 0.0 K/mm3 04/30/18 05:41 Blast Cells # 0.0 K/mm3 04/30/18 05:41 WBC Morphology Not Reportable 04/30/18 05:41 Hypersegmented Neuts Not Reportable 04/30/18 05:41 Hyposegmented Neuts Not Reportable 04/30/18 05:41 Hypogranular Neuts Not Reportable 04/30/18 05:41 Smudge Cells Not Reportable 04/30/18 05:41 Toxic Granulation Not Reportable 04/30/18 05:41 Toxic Vacuolation Not Reportable 04/30/18 05:41 Dohle Bodies Not Reportable 04/30/18 05:41 Pelger-Huet Anomaly Not Reportable 04/30/18 05:41 Nicole Rods Not Reportable 04/30/18 05:41 Platelet Estimate Appears normal 04/30/18 05:41 Clumped Platelets Not Reportable 04/30/18 05:41 Plt Clumps, EDTA Not Reportable 04/30/18 05:41 Large Platelets Not Reportable 04/30/18 05:41 Giant Platelets Not Reportable 04/30/18 05:41 Platelet Satelliting Not Reportable 04/30/18 05:41 Plt Morphology Comment Not Reportable 04/30/18 05:41 RBC Morphology Not Reportable 04/30/18 05:41 Dimorphic RBCs Not Reportable 04/30/18 05:41 Polychromasia Not Reportable 04/30/18 05:41 Hypochromasia 1+ 04/30/18 05:41 Poikilocytosis Not Reportable 04/30/18 05:41 Anisocytosis 1+ 04/30/18 05:41 Microcytosis Not Reportable 04/30/18 05:41 Macrocytosis Not Reportable 04/30/18 05:41 Spherocytes Not Reportable 04/30/18 05:41 Pappenheimer Bodies Not Reportable 04/30/18 05:41 Sickle Cells Not Reportable 04/30/18 05:41 Target Cells Not Reportable 04/30/18 05:41 Tear Drop Cells Not Reportable 04/30/18 05:41 Ovalocytes Few 04/30/18 05:41 Stomatocytes Few 04/29/18 05:18 Helmet Cells Not Reportable 04/30/18 05:41 [place] Bodies Not Reportable 04/30/18 05:41 [place] Rings Not Reportable 04/30/18 05:41 [place] Cells Not Reportable 04/30/18 05:41 Bite Cells Not Reportable 04/30/18 05:41 Crenated Cell Not Reportable 04/30/18 05:41 Elliptocytes Not Reportable 04/30/18 05:41 Acanthocytes (Spur) Not Reportable 04/30/18 05:41 Rouleaux Not Reportable 04/30/18 05:41 Hemoglobin C Crystals Not Reportable 04/30/18 05:41 Schistocytes Not Reportable 04/30/18 05:41 Malaria parasites Not Reportable 04/30/18 05:41 Hung Bodies Not Reportable 04/30/18 05:41 Hem Pathologist Commnt No 04/30/18 05:41 PT 15.3 Sec. (12.2-14.9) H 04/22/18 05:19 INR 1.17 (0.87-1.13) H 04/22/18 05:19 APTT 29.4 Sec. (24.2-36.6) 04/19/18 05:19 POC ABG pH 7.367 (7.35-7.45) 04/19/18 00:19 POC ABG pCO2 36.8 (35-45) 04/19/18 00:19 POC ABG pO2 84 (80-105) 04/19/18 00:19 POC ABG HCO3 21.1 04/19/18 00:19 POC ABG Total CO2 22 04/19/18 00:19 POC ABG O2 Sat 96 04/19/18 00:19 POC ABG Base Excess -4 04/19/18 00:19 VBG pH 7.439 (7.320-7.420) H 04/18/18 14:30 FiO2 32 % 04/19/18 00:19 Sodium 137 mmol/L (137-145) 06/09/18 Unknown Potassium 3.8 mmol/L (3.6-5.0) 06/09/18 Unknown Chloride 107.6 mmol/L (98-107) H 06/09/18 Unknown Carbon Dioxide 22 mmol/L (22-30) 06/09/18 Unknown Anion Gap 11 mmol/L 06/09/18 Unknown BUN 11 mg/dL (7-17) 06/09/18 Unknown Creatinine 0.2 mg/dL (0.7-1.2) L 06/09/18 Unknown Estimated GFR > 60 ml/min 06/09/18 Unknown BUN/Creatinine Ratio 55 % 06/09/18 Unknown Glucose 87 mg/dL (65-100) 06/09/18 Unknown POC Glucose 88 (70-105) 06/09/18 05:44 Lactic Acid 1.20 mmol/L (0.7-2.0) 05/19/18 10:27 Calcium 7.5 mg/dL (8.4-10.2) L 06/09/18 Unknown Phosphorus 2.90 mg/dL (2.5-4.5) 06/09/18 Unknown Magnesium 1.60 mg/dL (1.7-2.3) L 06/09/18 Unknown Total Bilirubin 0.40 mg/dL (0.1-1.2) 06/06/18 05:40 AST 89 units/L (5-40) H 06/06/18 05:40 ALT 84 units/L (7-56) H 06/06/18 05:40 Alkaline Phosphatase 116 units/L (35-129) 06/06/18 05:40 Total Protein 5.9 g/dL (6.3-8.2) L 06/06/18 05:40 Albumin 3.0 g/dL (3.9-5) L 06/06/18 05:40 Albumin/Globulin Ratio 1.0 % 06/06/18 05:40 Prealbumin 0.113 g/L (0.200-0.400) L 05/20/18 06:25 Triglycerides 1326 mg/dL (2-149) H 06/09/18 Unknown Urine Color Yellow (Yellow) 04/20/18 13:35 Urine Turbidity Clear (Clear) 04/20/18 13:35 Urine pH 5.0 (5.0-7.0) 04/20/18 13:35 Ur Specific [place] 1.011 (1.003-1.030) 04/20/18 13:35 Urine Protein <15 mg/dl mg/dL (Negative) 04/20/18 13:35 Urine Glucose (UA) Neg mg/dL (Negative) 04/20/18 13:35 Urine Ketones 20 mg/dL (Negative) 04/20/18 13:35 Urine Blood Sm (Negative) 04/20/18 13:35 Urine Nitrite Neg (Negative) 04/20/18 13:35 Urine Bilirubin Neg (Negative) 04/20/18 13:35 Urine Urobilinogen 2.0 mg/dL (<2.0) 04/20/18 13:35 Ur Leukocyte Esterase Tr (Negative) 04/20/18 13:35 Urine WBC (Auto) 2.0 /HPF (0.0-6.0) 04/20/18 13:35 Urine RBC (Auto) 1.0 /HPF (0.0-6.0) 04/20/18 13:35 U Epithel Cells (Auto) 2.0 /HPF (0-13.0) 04/18/18 16:45 Urine Bacteria (Auto) 2+ /HPF (Negative) 04/18/18 16:45 Urine Mucus Few /HPF 04/20/18 13:35 Blood Type O POSITIVE 04/19/18 13:05 Antibody Screen Negative 04/19/18 13:05 Crossmatch See Detail 04/19/18 13:05 Active Medications - Current Medications Current Medications: Generic Name Dose Route Start Last Admin Trade Name Freq PRN Reason Stop Dose Admin Acetaminophen 650 mg 05/20/18 12:12 05/20/18 12:41 Tylenol [place] 650 mg Q4H PRN Administration Fever >101 Acetaminophen/Hydrocodone Bitart 1 each 06/06/18 11:51 06/09/18 11:00 [place] 5/325 PO 1 each Q4H PRN Administration Pain, Moderate (4-6) Albuterol 2.5 mg 04/18/18 18:30 05/03/18 15:15 Proventil IH 2.5 mg Q3HRT PRN Administration Shortness Of Breath Alprazolam 0.25 mg 06/05/18 14:11 06/08/18 21:32 Xanax PO 0.25 mg Q8H PRN Administration Anxiety Arformoterol Tartrate 15 mcg 05/16/18 20:00 06/09/18 11:00 Brovana Nebu IH 15 mcg Q12HRT DUSTIN Administration Benzocaine/Menthol 1 each 04/20/18 12:51 Cepacol X Strength MM Q2HR PRN Sore Throat Budesonide 0.5 mg 05/16/18 20:00 06/09/18 11:00 Pulmicort IH 0.5 mg Q12HRT DUSTIN Administration Fentanyl 25 mcg 05/17/18 11:00 06/07/18 10:50 Duragesic TD 25 mcg Q3D DUSTIN Administration Gabapentin 800 mg 05/02/18 20:00 06/09/18 09:47 Neurontin PO 800 mg TID DUSTIN Administration Hydralazine HCl 10 mg 04/21/18 11:45 05/07/18 05:50 Apresoline IV 10 mg Q4HR PRN Administration SBP >160 Loperamide HCl 2 mg 05/17/18 14:46 05/17/18 17:11 Imodium PO 2 mg Q2H PRN Administration Diarrhea Metoprolol Tartrate 12.5 mg 05/13/18 10:00 06/09/18 09:47 Lopressor PO 12.5 mg BID DUSTIN Administration Mirtazapine 15 mg 05/09/18 22:00 06/08/18 21:32 Remeron PO 15 mg QHS DUSTIN Administration Ondansetron HCl 4 mg 05/21/18 11:34 06/09/18 10:59 Zofran IV 4 mg Q4H PRN Administration Nausea And Vomiting Nutrition/Malnutrition Assess - Dietary Evaluation Nutrition/Malnutrition Findings: Nutrition Notes Start: 04/24/18 09:13 Freq: Status: Active Protocol: Document 06/08/18 11:10 OL (Rec: 06/08/18 11:15 OL [id number]) Nutrition Notes Initial or Follow up Reassessment Other Pertinent Diagnosis Perforated appendix s/p exp lap, Hep C Current Diet 12hr cyclic TPN Labs/Tests Reviewed Pertinent Medications Reviewed Height 5 ft 1 in Weight 40.1 kg [place] Body Weight (kg) 47.72 BMI 16.7 Subjective/Other Information Day 43 TPN. Continue cyclic TPN. Percent of energy/protein needs met: 80%/100% Burn Absent Trauma Absent #2 Nutrition Diagnosis Increased nutrient needs ( specify in comment below) Diagnosis Progress(for reassessment Continues documentation) #1 Nutrition Diagnosis Inadequate oral intake Diagnosis Progress(for reassessment Continues documentation) Is patient on ventilator? No Is Patient Ambulatory and/or Out of Bed Yes REE-([facility]-ambulatory/OOB) [ 1206.894 [id number]] Kcal/Kg value to use for calculation 40 Approximate Energy Requirements Using 1604 kcal/Kg Calculation Used for Recommendations Kcal/kg Additional Notes Pro needs 1.25-1.5g/k-63g /day Fluid needs 1ml/kcal Nutrition Intervention Change Diet Order: Continue CPN Nutrition Support: 12hr cyclic CPN: 75mL/hr x 1hr , 165mL/hr x 10hr, 75mL/hr x 1hr: lipid Kcal 1,815 Protein (gm) 95 Carbohydrates (gm) 275 Fat (gm) 0 Fluid (mL) 2,050 Fiber (gm) 0 Goal #1 CPN to continue to meet 90-100 % energy and pro needs Goal #2 Wt gain/maintenance Anticipated Discharge Needs: Unable to determine at this time Follow-Up By: 06/09/18 Additional Comments Labs in AM: BMP, Mg, Phos, triglycerides
[2018-06-09] MEDS: XANAX PO PRN ×2 (12:52→22:59)
--- NOTE | 2018-06-09 13:06 | Progress Note ---
Assessment and Plan Pt feeling well without compl. 100 cc drainage over 24 hrs Abd soft surgically stable discussed pt with Dr. Malik yesterday and with pt today. Dr. Malik willing to receive pt in direct transfer as long as pt agrees and understands that surgery may not be immediate. Pt will need further studies and w/u to determine when and if re-exploration will be needed. Pt understands and agrees to transfer. We will remain in contact with Dr. Malik and also explained to pt that we can follow her here post-op if needed as pt was concerned about long drive to [facility]. Objective Vital Signs - 12hr 06/09/18 06/09/18 06/09/18 01:05 04:48 07:00 Temperature 97.9 F 97.7 F Pulse Rate 84 84 85 Pulse Rate [ Throughout] Respiratory 16 18 Rate Respiratory Rate [ Throughout] Blood Pressure 131/77 Blood Pressure 157/69 [Left] O2 Sat by Pulse 97 97 96 Oximetry 06/09/18 06/09/18 06/09/18 11:00 11:15 12:00 Temperature 99.4 F Pulse Rate 95 H Pulse Rate [ 91 H 84 Throughout] Respiratory 18 19 Rate Respiratory 18 18 Rate [ Throughout] Blood Pressure Blood Pressure 165/81 [Left] O2 Sat by Pulse 95 Oximetry - Labs 06/08/18 04:20 06/09/18 Unknown Diabetes panel 06/09/18 Range/Units Unknown Sodium 137 (137-145) mmol/L Potassium 3.8 (3.6-5.0) mmol/L Chloride 107.6 H (98-107) mmol/L Carbon Dioxide 22 (22-30) mmol/L BUN 11 (7-17) mg/dL Creatinine 0.2 L (0.7-1.2) mg/dL Glucose 87 (65-100) mg/dL Calcium 7.5 L (8.4-10.2) mg/dL Triglycerides 1326 H (2-149) mg/dL Calcium panel 06/09/18 Range/Units Unknown Calcium 7.5 L (8.4-10.2) mg/dL Phosphorus 2.90 (2.5-4.5) mg/dL Pituitary panel 06/09/18 Range/Units Unknown Sodium 137 (137-145) mmol/L Potassium 3.8 (3.6-5.0) mmol/L Chloride 107.6 H (98-107) mmol/L Carbon Dioxide 22 (22-30) mmol/L BUN 11 (7-17) mg/dL Creatinine 0.2 L (0.7-1.2) mg/dL Glucose 87 (65-100) mg/dL Calcium 7.5 L (8.4-10.2) mg/dL Adrenal panel 06/09/18 Range/Units Unknown Sodium 137 (137-145) mmol/L Potassium 3.8 (3.6-5.0) mmol/L Chloride 107.6 H (98-107) mmol/L Carbon Dioxide 22 (22-30) mmol/L BUN 11 (7-17) mg/dL Creatinine 0.2 L (0.7-1.2) mg/dL Glucose 87 (65-100) mg/dL Calcium 7.5 L (8.4-10.2) mg/dL
[2018-06-09] MEDS ORDERED: TPN ADULT 1,800 ML IV SCH (20:00)
[2018-06-09] MEDS: REMERON PO SCH (22:59)
[2018-06-10] MEDS: ZOFRAN IV PRN ×3 (04:15→21:08)
[2018-06-10] MEDS: NORCO 5/325 PO PRN ×5 (04:40→21:07)
[2018-06-10 06:30] LABS: Basophils % (Auto) 0.5 % (0.0-1.8); Eosinophils % (Auto) 0.6 % (0.0-4.3); Hematocrit 27.3 % (30.3-42.9); Hemoglobin 8.9 gm/dl (10.1-14.3); Lymphocytes # (Auto) 0.9 K/mm3 (1.2-5.4); Lymphocytes % (Auto) 19.9 % (13.4-35.0); Mean Corpuscular HGB Conc 33 % (30-34); Mean Corpuscular Volume 79 fl (79-97); Monocytes # (Auto) 0.3 K/mm3 (0.0-0.8); Monocytes % (Auto) 7.5 % (0.0-7.3); Platelet Count 150 K/mm3 (140-440); Red Blood Count 3.48 M/mm3 (3.65-5.03); Red Cell Distribution Width 16.7 % (13.2-15.2)
[2018-06-10 06:46] LABS: BUN/Creatinine Ratio 60; Blood Urea Nitrogen 12 mg/dL (7-17); Hemolysis Index 0
[2018-06-10] MEDS: NEURONTIN PO SCH ×3 (08:55→21:07)
[2018-06-10] MEDS: LOPRESSOR PO SCH ×2 (09:30→21:08)
[2018-06-10] MEDS: PULMICORT IH SCH ×2 (09:33→22:57)
[2018-06-10] MEDS: BROVANA NEBU IH SCH ×2 (09:33→22:57)
[2018-06-10] MEDS: DURAGESIC TD SCH (12:00)
--- NOTE | 2018-06-10 12:01 | Progress Note ---
Assessment and Plan Assessment and plan: Sepsis Etiology secondary to gangrenous and perforated appendix causing intra- abdominal/pelvic abscess. Patient is status post exploratory laparotomy with appendectomy and evacuation of pelvic abscess. Now off antibiotics and noted ID signed off. No fever off antibiotics. Perforated appendix s/p exploratory lap Cont. TPN, started on clear liquid diet which increased drainage, suspicion for non healing perforation s/p repeat CT abdomen/pelvis on 05/25/18 GS discussed pt with Dr. Malik yesterday and with pt today. Dr. Malik willing to receive pt in direct transfer as long as pt agrees and understands that surgery may not be immediate. Pt will need further studies and w/u to determine when and if re-exploration will be needed. Chronic hep C. Untreated. Outpatient follow-up. Accel Hypertension. continue Cozaar to 100mg. Cont. Hydralazine prn. Diarrhea: s/p lmodium prn x 1 Tachycardia: secondary to dehydration and deconditioning. COPD. Compensated. nebs as needed Neurofibromatosis: outpt follow up Tobacco abuse. Patient counseled on smoking cessation FOR 15 MINS, Patient verbalized understanding and will think about it. Severe protein calorie malnutrition; inspector firearms consulted. continue with TPN, npo now Hypotension-resolved BP stable Disposition As above. History Interval history: The patient is a 57-year-old female with hypertension, neurofibromatosis, hepatitis C, COPD, nicotine dependence presented to the emergency room on 04/18/18 with complaints of abdominal pain going on for [address] scan obtained in the emergency room revealed a ruptured appendix with associated intra-abdominal abscess. General surgery was consulted and the patient underwent an emergent exploratory laparotomy with evacuation of pelvic abscess. She was noted to have a gangrenous, perforated appendix eroding including into the small bowel. As per the op note, the abscess could not be drained as the entire abscess and inflammatory process had trapped the small bowel, which was mobilized and she u nderwent an ileocolic anastomosis. The patient went back to the OR on 04/25/18 for drain dislodgment. Patient had surgical culture which grew Ecoli and ester, completed treatment. CT abdomen: 05/18/18- Still showed minimal drainage, per surgery. Patient underwent follow-up repeat CT of abd & pelvis with PO contrast done 05/25/18 showed no acute change. At that time, patient was started on clear liquid but continue to abdominal pain and high drainage suspicious for non healing perforation. Urology was consulted for possible entro-vesico fistula due to the color of the urine, cystogram was normal. Dr. Shelton had discussed with surgeon at [facility] for poss transfer. Dr. Shelton to call Dr. Malik, Surgeon Hospitalist Physical - Constitutional Vitals: Temp Pulse Resp BP Pulse Ox 97.9 F 101 H 20 131/74 95 06/10/18 07:47 06/10/18 09:33 06/10/18 09:55 06/10/18 07:47 06/10/18 07:47 General appearance: Present: no acute distress, cachectic - EENT Eyes: Present: PERRL, EOM intact ENT: hearing intact, clear oral mucosa, dentition normal - Neck Neck: Present: supple, normal ROM - Respiratory Respiratory effort: normal Respiratory: bilateral: CTA - Cardiovascular Rhythm: regular Heart Sounds: Present: S1 & S2. Absent: gallop, rub - Extremities Extremities: no ischemia, No edema, Full ROM - Abdominal General gastrointestinal: soft, non-tender, non-distended, normal bowel sounds - Integumentary Integumentary: Present: clear, warm, dry - Neurologic Neurologic: CNII-XII intact, moves all extremities Results - Labs CBC & Chem 7: 06/10/18 05:48 06/10/18 05:48 Labs: Laboratory Last Values WBC 4.3 K/mm3 (4.5-11.0) L 06/10/18 05:48 RBC 3.48 M/mm3 (3.65-5.03) L 06/10/18 05:48 Hgb 8.9 gm/dl (10.1-14.3) L 06/10/18 05:48 Hct 27.3 % (30.3-42.9) L 06/10/18 05:48 MCV 79 fl (79-97) 06/10/18 05:48 MCH 26 pg (28-32) L 06/10/18 05:48 MCHC 33 % (30-34) 06/10/18 05:48 RDW 16.7 % (13.2-15.2) H 06/10/18 05:48 Plt Count 150 K/mm3 (140-440) 06/10/18 05:48 Lymph % (Auto) 19.9 % (13.4-35.0) 06/10/18 05:48 [place] % (Auto) 7.5 % (0.0-7.3) H 06/10/18 05:48 Eos % (Auto) 0.6 % (0.0-4.3) 06/10/18 05:48 Baso % (Auto) 0.5 % (0.0-1.8) 06/10/18 05:48 Lymph # 0.9 K/mm3 (1.2-5.4) L 06/10/18 05:48 [place] # 0.3 K/mm3 (0.0-0.8) 06/10/18 05:48 Eos # 0.0 K/mm3 (0.0-0.4) 06/10/18 05:48 Baso # 0.0 K/mm3 (0.0-0.1) 06/10/18 05:48 Add Manual Diff Complete 04/30/18 05:41 Total Counted 100 04/30/18 05:41 Seg Neutrophils % 71.5 % (40.0-70.0) H 06/10/18 05:48 Seg Neuts % (Manual) 88.0 % (40.0-70.0) H 04/30/18 05:41 Band Neutrophils % 1.0 % 04/30/18 05:41 Lymphocytes % (Manual) 8.0 % (13.4-35.0) L 04/30/18 05:41 Reactive Lymphs % (Man) 0 % 04/30/18 05:41 Monocytes % (Manual) 3.0 % (0.0-7.3) 04/30/18 05:41 Eosinophils % (Manual) 0 % (0.0-4.3) 04/30/18 05:41 Basophils % (Manual) 0 % (0.0-1.8) 04/30/18 05:41 Metamyelocytes % 0 % 04/30/18 05:41 Myelocytes % 0 % 04/30/18 05:41 Promyelocytes % 0 % 04/30/18 05:41 Blast Cells % 0 % 04/30/18 05:41 Nucleated RBC % Not Reportable 04/30/18 05:41 Seg Neutrophils # 3.1 K/mm3 (1.8-7.7) 06/10/18 05:48 Seg Neutrophils # Man 7.7 K/mm3 (1.8-7.7) 04/30/18 05:41 Band Neutrophils # 0.1 K/mm3 04/30/18 05:41 Lymphocytes # (Manual) 0.7 K/mm3 (1.2-5.4) L 04/30/18 05:41 Abs React Lymphs (Man) 0.0 K/mm3 04/30/18 05:41 Monocytes # (Manual) 0.3 K/mm3 (0.0-0.8) 04/30/18 05:41 Eosinophils # (Manual) 0.0 K/mm3 (0.0-0.4) 04/30/18 05:41 Basophils # (Manual) 0.0 K/mm3 (0.0-0.1) 04/30/18 05:41 Metamyelocytes # 0.0 K/mm3 04/30/18 05:41 Myelocytes # 0.0 K/mm3 04/30/18 05:41 Promyelocytes # 0.0 K/mm3 04/30/18 05:41 Blast Cells # 0.0 K/mm3 04/30/18 05:41 WBC Morphology Not Reportable 04/30/18 05:41 Hypersegmented Neuts Not Reportable 04/30/18 05:41 Hyposegmented Neuts Not Reportable 04/30/18 05:41 Hypogranular Neuts Not Reportable 04/30/18 05:41 Smudge Cells Not Reportable 04/30/18 05:41 Toxic Granulation Not Reportable 04/30/18 05:41 Toxic Vacuolation Not Reportable 04/30/18 05:41 Dohle Bodies Not Reportable 04/30/18 05:41 Pelger-Huet Anomaly Not Reportable 04/30/18 05:41 Nicole Rods Not Reportable 04/30/18 05:41 Platelet Estimate Appears normal 04/30/18 05:41 Clumped Platelets Not Reportable 04/30/18 05:41 Plt Clumps, EDTA Not Reportable 04/30/18 05:41 Large Platelets Not Reportable 04/30/18 05:41 Giant Platelets Not Reportable 04/30/18 05:41 Platelet Satelliting Not Reportable 04/30/18 05:41 Plt Morphology Comment Not Reportable 04/30/18 05:41 RBC Morphology Not Reportable 04/30/18 05:41 Dimorphic RBCs Not Reportable 04/30/18 05:41 Polychromasia Not Reportable 04/30/18 05:41 Hypochromasia 1+ 04/30/18 05:41 Poikilocytosis Not Reportable 04/30/18 05:41 Anisocytosis 1+ 04/30/18 05:41 Microcytosis Not Reportable 04/30/18 05:41 Macrocytosis Not Reportable 04/30/18 05:41 Spherocytes Not Reportable 04/30/18 05:41 Pappenheimer Bodies Not Reportable 04/30/18 05:41 Sickle Cells Not Reportable 04/30/18 05:41 Target Cells Not Reportable 04/30/18 05:41 Tear Drop Cells Not Reportable 04/30/18 05:41 Ovalocytes Few 04/30/18 05:41 Stomatocytes Few 04/29/18 05:18 Helmet Cells Not Reportable 04/30/18 05:41 Spann-Norwood Bodies Not Reportable 04/30/18 05:41 Hughson Rings Not Reportable 04/30/18 05:41 Kincaid Cells Not Reportable 04/30/18 05:41 Bite Cells Not Reportable 04/30/18 05:41 Crenated Cell Not Reportable 04/30/18 05:41 Elliptocytes Not Reportable 04/30/18 05:41 Acanthocytes (Spur) Not Reportable 04/30/18 05:41 Rouleaux Not Reportable 04/30/18 05:41 Hemoglobin C Crystals Not Reportable 04/30/18 05:41 Schistocytes Not Reportable 04/30/18 05:41 Malaria parasites Not Reportable 04/30/18 05:41 Hung Bodies Not Reportable 04/30/18 05:41 Hem Pathologist Commnt No 04/30/18 05:41 PT 15.3 Sec. (12.2-14.9) H 04/22/18 05:19 INR 1.17 (0.87-1.13) H 04/22/18 05:19 APTT 29.4 Sec. (24.2-36.6) 04/19/18 05:19 POC ABG pH 7.367 (7.35-7.45) 04/19/18 00:19 POC ABG pCO2 36.8 (35-45) 04/19/18 00:19 POC ABG pO2 84 (80-105) 04/19/18 00:19 POC ABG HCO3 21.1 04/19/18 00:19 POC ABG Total CO2 22 04/19/18 00:19 POC ABG O2 Sat 96 04/19/18 00:19 POC ABG Base Excess -4 04/19/18 00:19 VBG pH 7.439 (7.320-7.420) H 04/18/18 14:30 FiO2 32 % 04/19/18 00:19 Sodium 133 mmol/L (137-145) L 06/10/18 05:48 Potassium 4.2 mmol/L (3.6-5.0) 06/10/18 05:48 Chloride 98.2 mmol/L (98-107) 06/10/18 05:48 Carbon Dioxide 30 mmol/L (22-30) D 06/10/18 05:48 Anion Gap 9 mmol/L 06/10/18 05:48 BUN 12 mg/dL (7-17) 06/10/18 05:48 Creatinine 0.2 mg/dL (0.7-1.2) L 06/10/18 05:48 Estimated GFR > 60 ml/min 06/10/18 05:48 BUN/Creatinine Ratio 60 % 06/10/18 05:48 Glucose 104 mg/dL (65-100) H 06/10/18 05:48 POC Glucose 105 (70-105) 06/10/18 11:32 Lactic Acid 1.20 mmol/L (0.7-2.0) 05/19/18 10:27 Calcium 8.0 mg/dL (8.4-10.2) L 06/10/18 05:48 Phosphorus 2.90 mg/dL (2.5-4.5) 06/09/18 Unknown Magnesium 1.80 mg/dL (1.7-2.3) 06/10/18 05:48 Total Bilirubin 0.40 mg/dL (0.1-1.2) 06/06/18 05:40 AST 89 units/L (5-40) H 06/06/18 05:40 ALT 84 units/L (7-56) H 06/06/18 05:40 Alkaline Phosphatase 116 units/L (35-129) 06/06/18 05:40 Total Protein 5.9 g/dL (6.3-8.2) L 06/06/18 05:40 Albumin 3.0 g/dL (3.9-5) L 06/06/18 05:40 Albumin/Globulin Ratio 1.0 % 06/06/18 05:40 Prealbumin 0.113 g/L (0.200-0.400) L 05/20/18 06:25 Triglycerides 1326 mg/dL (2-149) H 06/09/18 Unknown Urine Color Yellow (Yellow) 04/20/18 13:35 Urine Turbidity Clear (Clear) 04/20/18 13:35 Urine pH 5.0 (5.0-7.0) 04/20/18 13:35 Ur Specific [place] 1.011 (1.003-1.030) 04/20/18 13:35 Urine Protein <15 mg/dl mg/dL (Negative) 04/20/18 13:35 Urine Glucose (UA) Neg mg/dL (Negative) 04/20/18 13:35 Urine Ketones 20 mg/dL (Negative) 04/20/18 13:35 Urine Blood Sm (Negative) 04/20/18 13:35 Urine Nitrite Neg (Negative) 04/20/18 13:35 Urine Bilirubin Neg (Negative) 04/20/18 13:35 Urine Urobilinogen 2.0 mg/dL (<2.0) 04/20/18 13:35 Ur Leukocyte Esterase Tr (Negative) 04/20/18 13:35 Urine WBC (Auto) 2.0 /HPF (0.0-6.0) 04/20/18 13:35 Urine RBC (Auto) 1.0 /HPF (0.0-6.0) 04/20/18 13:35 U Epithel Cells (Auto) 2.0 /HPF (0-13.0) 04/18/18 16:45 Urine Bacteria (Auto) 2+ /HPF (Negative) 04/18/18 16:45 Urine Mucus Few /HPF 04/20/18 13:35 Blood Type O POSITIVE 04/19/18 13:05 Antibody Screen Negative 04/19/18 13:05 Crossmatch See Detail 04/19/18 13:05 Active Medications - Current Medications Current Medications: Generic Name Dose Route Start Last Admin Trade Name Freq PRN Reason Stop Dose Admin Acetaminophen 650 mg 05/20/18 12:12 05/20/18 12:41 Tylenol [place] 650 mg Q4H PRN Administration Fever >101 Acetaminophen/Hydrocodone Bitart 1 each 06/06/18 11:51 06/10/18 08:55 [place] 5/325 PO 1 each Q4H PRN Administration Pain, Moderate (4-6) Alprazolam 0.25 mg 06/05/18 14:11 06/09/18 22:59 Xanax PO 0.25 mg Q8H PRN Administration Anxiety Arformoterol Tartrate 15 mcg 05/16/18 20:00 06/09/18 20:50 Brovana Nebu IH 15 mcg Q12HRT DUSTIN Administration Benzocaine/Menthol 1 each 04/20/18 12:51 Cepacol X Strength MM Q2HR PRN Sore Throat Budesonide 0.5 mg 05/16/18 20:00 06/09/18 20:50 Pulmicort IH 0.5 mg Q12HRT DUSTIN Administration Fentanyl 25 mcg 05/17/18 11:00 06/07/18 10:50 Duragesic TD 25 mcg Q3D DUSTIN Administration Gabapentin 800 mg 05/02/18 20:00 06/10/18 08:55 Neurontin PO 800 mg TID DUSTIN Administration Hydralazine HCl 10 mg 04/21/18 11:45 05/07/18 05:50 Apresoline IV 10 mg Q4HR PRN Administration SBP >160 Loperamide HCl 2 mg 05/17/18 14:46 05/17/18 17:11 Imodium PO 2 mg Q2H PRN Administration Diarrhea Metoprolol Tartrate 12.5 mg 05/13/18 10:00 06/09/18 22:57 Lopressor PO 12.5 mg BID DUSTIN Administration Mirtazapine 15 mg 05/09/18 22:00 06/09/18 22:59 Remeron PO 15 mg QHS DUSTIN Administration Ondansetron HCl 4 mg 05/21/18 11:34 06/10/18 08:56 Zofran IV 4 mg Q4H PRN Administration Nausea And Vomiting Nutrition/Malnutrition Assess - Dietary Evaluation Nutrition/Malnutrition Findings: Nutrition Notes Start: 04/24/18 09:13 Freq: Status: Active Protocol: Document 06/09/18 14:35 SA (Rec: 06/09/18 15:01 SA [id number]) Co-Sign 06/09/18 14:35 RM Nutrition Notes Initial or Follow up Reassessment Current Diagnosis COPD Other Pertinent Diagnosis Perforated appendix s/p exp lap, Hep C Current Diet 12hr cyclic TPN Labs/Tests M.6 T Pertinent Medications Reviewed Height 5 ft 1 in Weight 40.1 kg [place] Body Weight (kg) 47.72 BMI 16.7 Subjective/Other Information Day 43 TPN. Continue cyclic TPN. Percent of energy/protein needs met: 100%/100% Burn Absent Trauma Absent #2 Nutrition Diagnosis Increased nutrient needs ( specify in comment below) Diagnosis Progress(for reassessment Continues documentation) #1 Nutrition Diagnosis Inadequate oral intake Diagnosis Progress(for reassessment Continues documentation) Is patient on ventilator? No Is Patient Ambulatory and/or Out of Bed Yes REE-([place]-St. Jeor-ambulatory/OOB) [ 1206.894 NUTR.[id number]] Kcal/Kg value to use for calculation 40 Approximate Energy Requirements Using 1604 kcal/Kg Calculation Used for Recommendations Kcal/kg Additional Notes Pro needs 1.25-1.5g/k-63g /day Fluid needs 1ml/kcal Nutrition Intervention Change Diet Order: Continue CPN Nutrition Support: 12hr cyclic CPN: 75mL/hr x 1hr , 165mL/hr x 10hr, 75mL/hr x 1hr: lipid Kcal 1,315 Protein (gm) 95 Carbohydrates (gm) 275 Fat (gm) 0 Fluid (mL) 1,800 Fiber (gm) 0 Goal #1 CPN to continue to meet 90-100 % energy and pro needs Goal #2 Wt gain/maintenance Anticipated Discharge Needs: Unable to determine at this time Follow-Up By: 06/10/18 Additional Comments Labs in AM: BMP, Mg
--- NOTE | 2018-06-10 12:06 | Discharge Summary ---
Providers - Providers Date of Admission: 04/18/18 18:30 Date of discharge: 06/15/18 Attending physician: FLOR EASTMAN 04/18/18 16:28 Consult to Physician [CONS] Urgent Comment: DR SHELTON NOTIFIED 1819 Consulting Provider: ANA PAULA SHELTON Physician Instructions: Reason For Exam: abd pain sepsis 04/18/18 17:11 Consult to Physician [CONS] Urgent Comment: DR JOSEPH NOTIFIED 1814 Consulting Provider: JOSE JOSEPH Physician Instructions: Reason For Exam: abd pain sepsis 04/18/18 23:21 Consult to Wound/ET Nurse [CONS] Routine Reason For Exam: begin wd care Friday04/18/18 23:29 Consult to Physician [CONS] Routine Comment: Consulting Provider: BRIANNA ROMAN Physician Instructions: Reason For Exam: sepsis. intra abd abscess 04/18/18 23:31 Consult to Physician [CONS] Routine Comment: Consulting Provider: GLO BUTT Physician Instructions: Reason For Exam: sepsis. medical management 04/18/18 23:44 Consult to Physician [CONS] Routine Comment: Consulting Provider: ROHINI CARROLL Physician Instructions: Reason For Exam: sepsis 04/21/18 08:25 Physical Therapy Evaluation and Treat [CONS] Routine Comment: Reason For Exam: ambulate down halls with assistance 04/25/18 08:00 Consult to Dietitian/Nutrition [CONS] Routine Physician Instructions: Reason For Exam: Reason for Consult: Write/Manage TPN/PPN 04/25/18 18:47 Consult to Physician [CONS] Routine Comment: Consulting Provider: CHENG CHAWLA Physician Instructions: Reason For Exam: picc line insertion 04/26/18 10:29 Consult to Wound/ET Nurse [CONS] Routine Reason For Exam: restart wd care on 04/26/18 20:27 Consult to PICC Line RN [CONS] Routine Reason For Exam: iv access, if unsuccessful may need IR PICC Type Line:: PICC 04/29/18 13:11 Physical Therapy Evaluation and Treat [CONS] Routine Comment: Reason For Exam: deconditioning 05/08/18 11:52 Consult to Mental Health [CONS] Routine Reason For Exam: depression Place consult to:: Notified:: [id number] Phone number called:: [phone] Time called:: 11:53 05/20/18 12:13 Consult to Physician [CONS] Routine Comment: CALL WAS MADE BY DR. SHELTON - COMPLETED Consulting Provider: LINH HASKINS Physician Instructions: Reason For Exam: r/o enteric-vesico fistula Primary care physician: HERMINIA FISHMAN Hospitalization Reason for admission: abd pain Condition: Fair Hospital course: The patient is a 57-year-old female with hypertension, neurofibromatosis, hepatitis C, COPD, nicotine dependence presented to the emergency room on 04/18/18 with complaints of abdominal pain going on for [address] scan obtained in the emergency room revealed a ruptured appendix with associated intra-abdominal abscess. General surgery was consulted and the patient underwent an emergent exploratory laparotomy with evacuation of pelvic abscess. She was noted to have a gangrenous, perforated appendix eroding including into the small bowel. As per the op note, the abscess could not be drained as the entire abscess and inflammatory process had trapped the small bowel, which was mobilized and she underwent an ileocolic anastomosis. The patient went back to the OR on 04/25/18 for drain dislodgment. Patient had surgical culture which grew Ecoli and ester, completed treatment. CT abdomen: 05/18/18- Still showed minimal drainage, per surgery. Patient underwent follow-up repeat CT of abd & pelvis with PO contrast done 05/25/18 showed no acute change. At that time, patient was started on clear liquid but continue to abdominal pain and high drainage suspicious for non healing perforation. Urology was consulted for possible entro-vesico fistula due to the color of the urine, cystogram was normal. Dr. Shelton had discussed with surgeon at [facility] for poss transfer. Dr. Shelton called Dr. Malik, Surgeon who is willing to receive pt in direct transfer as long as pt agrees and understands that surgery may not be immediate. Pt will need further studies and w/u to determine when and if re-exploration will be needed. The patient understands and agrees to transfer. Dedicated discharge time 32 minutes. Dis[facility]: [id number] Time spent for discharge: 32 - Discharge Diagnoses (1) Appendicitis with perforation Status: Acute (2) Appendicitis with peritoneal abscess Status: Acute (3) Sepsis Status: Acute Qualifiers: Sepsis type: Escherichia coli Qualified Code(s): A41.51 - Sepsis due to Escherichia coli [E. coli] (4) Acute metabolic encephalopathy Status: Acute Core Measure Documentation - Palliative Care Palliative Care/ Comfort Measures: Not Applicable - Core Measures Any of the following diagnoses?: none Exam - Constitutional Vitals: Temp Pulse Resp BP Pulse Ox 97.9 F 101 H 20 131/74 95 06/10/18 07:47 06/10/18 09:33 06/10/18 12:00 06/10/18 09:30 06/10/18 07:47 General appearance: Present: no acute distress, well-nourished - EENT Eyes: Present: PERRL ENT: hearing intact, clear oral mucosa - Neck Neck: Present: supple, normal ROM - Respiratory Respiratory effort: normal Respiratory: bilateral: CTA - Cardiovascular Heart Sounds: Present: S1 & S2. Absent: rub, click - Extremities Extremities: pulses symmetrical, No edema Peripheral Pulses: within normal limits - Abdominal General gastrointestinal: Present: soft, tender, non-distended, hypoactive bowel sounds, other (dressing over abdomen, with surgical drain) Female genitourinary: Present: normal - Integumentary Integumentary: Present: clear, warm, dry - Musculoskeletal Musculoskeletal: gait normal, strength equal bilaterally - Psychiatric Psychiatric: appropriate mood/affect, intact judgment & insight - Neurologic Neurologic: CNII-XII intact, moves all extremities Plan Activity: advance as tolerated Weight Bearing Status: Weight Bear as Tolerated Wound: per your surgeon's advice Follow up with: HERMINIA FISHMAN MD [Primary Care Provider] - 3-5 Days
[2018-06-10] MEDS ORDERED: TPN ADULT 1,800 ML IV SCH (20:00)
[2018-06-10] MEDS: REMERON PO SCH (21:07)
[2018-06-10] MEDS: XANAX PO PRN (21:27)
[2018-06-11] MEDS: NORCO 5/325 PO PRN ×4 (03:30→20:31)
[2018-06-11 04:00] LABS: BUN/Creatinine Ratio 60; Blood Urea Nitrogen 12 mg/dL (7-17); Calcium 8.3 mg/dL (8.4-10.2); Hemolysis Index 2
[2018-06-11] MEDS: PULMICORT IH SCH ×2 (08:20→20:24)
[2018-06-11] MEDS: BROVANA NEBU IH SCH ×2 (08:20→20:24)
[2018-06-11] MEDS: LOPRESSOR PO SCH ×2 (10:05→22:08)
[2018-06-11] MEDS: NEURONTIN PO SCH ×3 (10:05→20:28)
[2018-06-11] MEDS ORDERED: TPN ADULT 1,800 ML IV SCH (20:00)
[2018-06-11] MEDS: REMERON PO SCH (22:08)
[2018-06-11] MEDS: XANAX PO PRN (22:08)
[2018-06-11] MEDS: ZOFRAN IV PRN (22:14)
[2018-06-12] MEDS: ZOFRAN IV PRN ×3 (04:27→17:18)
[2018-06-12] MEDS: NORCO 5/325 PO PRN ×5 (04:27→22:07)
[2018-06-12 05:00] LABS: BUN/Creatinine Ratio 55; Blood Urea Nitrogen 11 mg/dL (7-17); Calcium 8.3 mg/dL (8.4-10.2); Hemolysis Index 12
[2018-06-12] MEDS: LOPRESSOR PO SCH ×3 (08:42→22:00)
[2018-06-12] MEDS: NEURONTIN PO SCH ×3 (08:42→19:52)
--- NOTE | 2018-06-12 09:36 | Progress Note ---
Assessment and Plan Assessment and plan: Sepsis Etiology secondary to gangrenous and perforated appendix causing intra- abdominal/pelvic abscess. Patient is status post exploratory laparotomy with appendectomy and evacuation of pelvic abscess. Now off antibiotics and noted ID signed off. No fever off antibiotics. Perforated appendix s/p exploratory lap Cont. TPN, started on clear liquid diet which increased drainage, suspicion for non healing perforation s/p repeat CT abdomen/pelvis on 05/25/18 GS discussed pt with Dr. Malik and we are awaiting bed availability at [facility]. Dr. Malik willing to receive pt in direct transfer as long as pt agrees and understands that surgery may not be immediate. Pt will need further studies and w/u to determine when and if re-exploration will be needed. Chronic hep C. Untreated. Outpatient follow-up. Accel Hypertension. continue Cozaar to 100mg. Cont. Hydralazine prn. Diarrhea: s/p lmodium prn x 1 Tachycardia: secondary to dehydration and deconditioning. COPD. Compensated. nebs as needed Neurofibromatosis: outpt follow up Tobacco abuse. Patient counseled on smoking cessation FOR 15 MINS, Patient verbalized understanding and will think about it. Severe protein calorie malnutrition; byproducts maker consulted. continue with TPN, npo now Hypotension-resolved BP stable Disposition As above. - Patient Problems (1) Appendicitis with perforation Current Visit: Yes Status: Acute (2) Appendicitis with peritoneal abscess Current Visit: Yes Status: Acute (3) Sepsis Current Visit: Yes Status: Acute Qualifiers: Sepsis type: Escherichia coli Qualified Code(s): A41.51 - Sepsis due to Escherichia coli [E. coli] (4) Acute metabolic encephalopathy Current Visit: No Status: Acute History Interval history: The patient is a 57-year-old female with hypertension, neurofibromatosis, hepatitis C, COPD, nicotine dependence presented to the emergency room on 04/18/18 with complaints of abdominal pain going on for [address] scan obtained in the emergency room revealed a ruptured appendix with associated intra-abdominal abscess. General surgery was consulted and the patient underwent an emergent exploratory laparotomy with evacuation of pelvic abscess. She was noted to have a gangrenous, perforated appendix eroding including into the small bowel. As per the op note, the abscess could not be drained as the entire abscess and inflammatory process had trapped the small bowel, which was mobilized and she underwent an ileocolic anastomosis. The patient went back to the OR on 04/25/18 for drain dislodgment. Patient had surgical culture which grew Ecoli and ester, completed treatment. CT abdomen: 05/18/18- Still showed minimal drainage, per surgery. Patient underwent follow-up repeat CT of abd & pelvis with PO contrast done 05/25/18 showed no acute change. At that time, patient was started on clear liquid but continue to abdominal pain and high drainage suspicious for non healing perforation. Urology was consulted for possible entro-vesico fistula due to the color of the urine, cystogram was normal. Dr. Shelton had discussed with surgeon at [facility] for poss transfer. Dr. Shelton to call Dr. Malik, Surgeon Hospitalist Physical - Constitutional Vitals: Temp Pulse Resp BP Pulse Ox 98.7 F 104 H 18 123/74 93 06/12/18 07:15 06/12/18 07:15 06/12/18 07:15 06/12/18 07:15 06/12/18 07:15 General appearance: Present: no acute distress, well-nourished - EENT Eyes: Present: PERRL, EOM intact ENT: hearing intact, clear oral mucosa, dentition normal - Neck Neck: Present: supple, normal ROM - Respiratory Respiratory effort: normal Respiratory: bilateral: CTA - Cardiovascular Rhythm: regular Heart Sounds: Present: S1 & S2. Absent: gallop, rub - Extremities Extremities: no ischemia, No edema, Full ROM - Abdominal General gastrointestinal: soft, non-tender, non-distended, normal bowel sounds - Integumentary Integumentary: Present: clear, warm, dry - Neurologic Neurologic: CNII-XII intact, moves all extremities Results - Labs CBC & Chem 7: 06/10/18 05:48 06/12/18 04:08 Labs: Laboratory Last Values WBC 4.3 K/mm3 (4.5-11.0) L 06/10/18 05:48 RBC 3.48 M/mm3 (3.65-5.03) L 06/10/18 05:48 Hgb 8.9 gm/dl (10.1-14.3) L 06/10/18 05:48 Hct 27.3 % (30.3-42.9) L 06/10/18 05:48 MCV 79 fl (79-97) 06/10/18 05:48 MCH 26 pg (28-32) L 06/10/18 05:48 MCHC 33 % (30-34) 06/10/18 05:48 RDW 16.7 % (13.2-15.2) H 06/10/18 05:48 Plt Count 150 K/mm3 (140-440) 06/10/18 05:48 Lymph % (Auto) 19.9 % (13.4-35.0) 06/10/18 05:48 [place] % (Auto) 7.5 % (0.0-7.3) H 06/10/18 05:48 Eos % (Auto) 0.6 % (0.0-4.3) 06/10/18 05:48 Baso % (Auto) 0.5 % (0.0-1.8) 06/10/18 05:48 Lymph # 0.9 K/mm3 (1.2-5.4) L 06/10/18 05:48 [place] # 0.3 K/mm3 (0.0-0.8) 06/10/18 05:48 Eos # 0.0 K/mm3 (0.0-0.4) 06/10/18 05:48 Baso # 0.0 K/mm3 (0.0-0.1) 06/10/18 05:48 Add Manual Diff Complete 04/30/18 05:41 Total Counted 100 04/30/18 05:41 Seg Neutrophils % 71.5 % (40.0-70.0) H 06/10/18 05:48 Seg Neuts % (Manual) 88.0 % (40.0-70.0) H 04/30/18 05:41 Band Neutrophils % 1.0 % 04/30/18 05:41 Lymphocytes % (Manual) 8.0 % (13.4-35.0) L 04/30/18 05:41 Reactive Lymphs % (Man) 0 % 04/30/18 05:41 Monocytes % (Manual) 3.0 % (0.0-7.3) 04/30/18 05:41 Eosinophils % (Manual) 0 % (0.0-4.3) 04/30/18 05:41 Basophils % (Manual) 0 % (0.0-1.8) 04/30/18 05:41 Metamyelocytes % 0 % 04/30/18 05:41 Myelocytes % 0 % 04/30/18 05:41 Promyelocytes % 0 % 04/30/18 05:41 Blast Cells % 0 % 04/30/18 05:41 Nucleated RBC % Not Reportable 04/30/18 05:41 Seg Neutrophils # 3.1 K/mm3 (1.8-7.7) 06/10/18 05:48 Seg Neutrophils # Man 7.7 K/mm3 (1.8-7.7) 04/30/18 05:41 Band Neutrophils # 0.1 K/mm3 04/30/18 05:41 Lymphocytes # (Manual) 0.7 K/mm3 (1.2-5.4) L 04/30/18 05:41 Abs React Lymphs (Man) 0.0 K/mm3 04/30/18 05:41 Monocytes # (Manual) 0.3 K/mm3 (0.0-0.8) 04/30/18 05:41 Eosinophils # (Manual) 0.0 K/mm3 (0.0-0.4) 04/30/18 05:41 Basophils # (Manual) 0.0 K/mm3 (0.0-0.1) 04/30/18 05:41 Metamyelocytes # 0.0 K/mm3 04/30/18 05:41 Myelocytes # 0.0 K/mm3 04/30/18 05:41 Promyelocytes # 0.0 K/mm3 04/30/18 05:41 Blast Cells # 0.0 K/mm3 04/30/18 05:41 WBC Morphology Not Reportable 04/30/18 05:41 Hypersegmented Neuts Not Reportable 04/30/18 05:41 Hyposegmented Neuts Not Reportable 04/30/18 05:41 Hypogranular Neuts Not Reportable 04/30/18 05:41 Smudge Cells Not Reportable 04/30/18 05:41 Toxic Granulation Not Reportable 04/30/18 05:41 Toxic Vacuolation Not Reportable 04/30/18 05:41 Dohle Bodies Not Reportable 04/30/18 05:41 Pelger-Huet Anomaly Not Reportable 04/30/18 05:41 Nicole Rods Not Reportable 04/30/18 05:41 Platelet Estimate Appears normal 04/30/18 05:41 Clumped Platelets Not Reportable 04/30/18 05:41 Plt Clumps, EDTA Not Reportable 04/30/18 05:41 Large Platelets Not Reportable 04/30/18 05:41 Giant Platelets Not Reportable 04/30/18 05:41 Platelet Satelliting Not Reportable 04/30/18 05:41 Plt Morphology Comment Not Reportable 04/30/18 05:41 RBC Morphology Not Reportable 04/30/18 05:41 Dimorphic RBCs Not Reportable 04/30/18 05:41 Polychromasia Not Reportable 04/30/18 05:41 Hypochromasia 1+ 04/30/18 05:41 Poikilocytosis Not Reportable 04/30/18 05:41 Anisocytosis 1+ 04/30/18 05:41 Microcytosis Not Reportable 04/30/18 05:41 Macrocytosis Not Reportable 04/30/18 05:41 Spherocytes Not Reportable 04/30/18 05:41 Pappenheimer Bodies Not Reportable 04/30/18 05:41 Sickle Cells Not Reportable 04/30/18 05:41 Target Cells Not Reportable 04/30/18 05:41 Tear Drop Cells Not Reportable 04/30/18 05:41 Ovalocytes Few 04/30/18 05:41 Stomatocytes Few 04/29/18 05:18 Helmet Cells Not Reportable 04/30/18 05:41 Spann-Mccaulley Bodies Not Reportable 04/30/18 05:41 [place] Rings Not Reportable 04/30/18 05:41 [place] Cells Not Reportable 04/30/18 05:41 Bite Cells Not Reportable 04/30/18 05:41 Crenated Cell Not Reportable 04/30/18 05:41 Elliptocytes Not Reportable 04/30/18 05:41 Acanthocytes (Spur) Not Reportable 04/30/18 05:41 Rouleaux Not Reportable 04/30/18 05:41 Hemoglobin C Crystals Not Reportable 04/30/18 05:41 Schistocytes Not Reportable 04/30/18 05:41 Malaria parasites Not Reportable 04/30/18 05:41 Hung Bodies Not Reportable 04/30/18 05:41 Hem Pathologist Commnt No 04/30/18 05:41 PT 15.3 Sec. (12.2-14.9) H 04/22/18 05:19 INR 1.17 (0.87-1.13) H 04/22/18 05:19 APTT 29.4 Sec. (24.2-36.6) 04/19/18 05:19 POC ABG pH 7.367 (7.35-7.45) 04/19/18 00:19 POC ABG pCO2 36.8 (35-45) 04/19/18 00:19 POC ABG pO2 84 (80-105) 04/19/18 00:19 POC ABG HCO3 21.1 04/19/18 00:19 POC ABG Total CO2 22 04/19/18 00:19 POC ABG O2 Sat 96 04/19/18 00:19 POC ABG Base Excess -4 04/19/18 00:19 VBG pH 7.439 (7.320-7.420) H 04/18/18 14:30 FiO2 32 % 04/19/18 00:19 Sodium 137 mmol/L (137-145) 06/12/18 04:08 Potassium 4.8 mmol/L (3.6-5.0) D 06/12/18 04:08 Chloride 101.0 mmol/L (98-107) 06/12/18 04:08 Carbon Dioxide 31 mmol/L (22-30) H 06/12/18 04:08 Anion Gap 10 mmol/L 06/12/18 04:08 BUN 11 mg/dL (7-17) 06/12/18 04:08 Creatinine 0.2 mg/dL (0.7-1.2) L 06/12/18 04:08 Estimated GFR > 60 ml/min 06/12/18 04:08 BUN/Creatinine Ratio 55 % 06/12/18 04:08 Glucose 98 mg/dL (65-100) 06/12/18 04:08 POC Glucose 143 (70-105) H 06/12/18 06:54 Lactic Acid 1.20 mmol/L (0.7-2.0) 05/19/18 10:27 Calcium 8.3 mg/dL (8.4-10.2) L 06/12/18 04:08 Phosphorus 3.60 mg/dL (2.5-4.5) D 06/12/18 04:08 Magnesium 2.00 mg/dL (1.7-2.3) 06/12/18 04:08 Total Bilirubin 0.40 mg/dL (0.1-1.2) 06/06/18 05:40 AST 89 units/L (5-40) H 06/06/18 05:40 ALT 84 units/L (7-56) H 06/06/18 05:40 Alkaline Phosphatase 116 units/L (35-129) 06/06/18 05:40 Total Protein 5.9 g/dL (6.3-8.2) L 06/06/18 05:40 Albumin 3.0 g/dL (3.9-5) L 06/06/18 05:40 Albumin/Globulin Ratio 1.0 % 06/06/18 05:40 Prealbumin 0.113 g/L (0.200-0.400) L 05/20/18 06:25 Triglycerides 1326 mg/dL (2-149) H 06/09/18 Unknown Urine Color Yellow (Yellow) 04/20/18 13:35 Urine Turbidity Clear (Clear) 04/20/18 13:35 Urine pH 5.0 (5.0-7.0) 04/20/18 13:35 Ur Specific [place] 1.011 (1.003-1.030) 04/20/18 13:35 Urine Protein <15 mg/dl mg/dL (Negative) 04/20/18 13:35 Urine Glucose (UA) Neg mg/dL (Negative) 04/20/18 13:35 Urine Ketones 20 mg/dL (Negative) 04/20/18 13:35 Urine Blood Sm (Negative) 04/20/18 13:35 Urine Nitrite Neg (Negative) 04/20/18 13:35 Urine Bilirubin Neg (Negative) 04/20/18 13:35 Urine Urobilinogen 2.0 mg/dL (<2.0) 04/20/18 13:35 Ur Leukocyte Esterase Tr (Negative) 04/20/18 13:35 Urine WBC (Auto) 2.0 /HPF (0.0-6.0) 04/20/18 13:35 Urine RBC (Auto) 1.0 /HPF (0.0-6.0) 04/20/18 13:35 U Epithel Cells (Auto) 2.0 /HPF (0-13.0) 04/18/18 16:45 Urine Bacteria (Auto) 2+ /HPF (Negative) 04/18/18 16:45 Urine Mucus Few /HPF 04/20/18 13:35 Blood Type O POSITIVE 04/19/18 13:05 Antibody Screen Negative 04/19/18 13:05 Crossmatch See Detail 04/19/18 13:05 Active Medications - Current Medications Current Medications: Generic Name Dose Route Start Last Admin Trade Name Freq PRN Reason Stop Dose Admin Acetaminophen 650 mg 05/20/18 12:12 05/20/18 12:41 Tylenol [place] 650 mg Q4H PRN Administration Fever >101 Acetaminophen/Hydrocodone Bitart 1 each 06/06/18 11:51 06/12/18 08:42 [place] 5/325 PO 1 each Q4H PRN Administration Pain, Moderate (4-6) Alprazolam 0.25 mg 06/05/18 14:11 06/11/18 22:08 Xanax PO 0.25 mg Q8H PRN Administration Anxiety Arformoterol Tartrate 15 mcg 05/16/18 20:00 06/11/18 20:24 Brovana Nebu IH 15 mcg Q12HRT DUSTIN Administration Benzocaine/Menthol 1 each 04/20/18 12:51 Cepacol X Strength MM Q2HR PRN Sore Throat Budesonide 0.5 mg 05/16/18 20:00 06/11/18 20:24 Pulmicort IH 0.5 mg Q12HRT DUSTIN Administration Fentanyl 25 mcg 05/17/18 11:00 06/10/18 12:00 Duragesic TD 25 mcg Q3D DUSTIN Administration Gabapentin 800 mg 05/02/18 20:00 06/12/18 08:42 Neurontin PO 800 mg TID DUSTIN Administration Hydralazine HCl 10 mg 04/21/18 11:45 05/07/18 05:50 Apresoline IV 10 mg Q4HR PRN Administration SBP >160 Loperamide HCl 2 mg 05/17/18 14:46 05/17/18 17:11 Imodium PO 2 mg Q2H PRN Administration Diarrhea Metoprolol Tartrate 12.5 mg 05/13/18 10:00 06/12/18 08:42 Lopressor PO 12.5 mg BID DUSTIN Administration Mirtazapine 15 mg 05/09/18 22:00 06/11/18 22:08 Remeron PO 15 mg QHS DUSTIN Administration Ondansetron HCl 4 mg 05/21/18 11:34 06/12/18 04:27 Zofran IV 4 mg Q4H PRN Administration Nausea And Vomiting Nutrition/Malnutrition Assess - Dietary Evaluation Nutrition/Malnutrition Findings: Nutrition Notes Start: 04/24/18 09:13 Freq: Status: Active Protocol: Document 06/11/18 12:16 SA (Rec: 06/11/18 12:20 SA [id number]) Co-Sign 06/11/18 12:16 LP Nutrition Notes Initial or Follow up Reassessment Current Diagnosis COPD Other Pertinent Diagnosis Perforated appendix s/p exp lap, Hep C Current Diet 12hr cyclic TPN Labs/Tests Cr: 0.2 Glu: 120 Ca: 8.3 Pertinent Medications Reviewed Height 5 ft 1 in Weight 40.1 kg [place] Body Weight (kg) 47.72 BMI 16.7 Subjective/Other Information Day 45 TPN. Continue cyclic TPN. Patient says TPN is going good. Pt experiencing nausea when TPN is not running. Patient reports feeling good. Percent of energy/protein needs met: 82%/100% Burn Absent Trauma Absent #2 Nutrition Diagnosis Increased nutrient needs ( specify in comment below) Diagnosis Progress(for reassessment Continues documentation) #1 Nutrition Diagnosis Inadequate oral intake Diagnosis Progress(for reassessment Continues documentation) Is patient on ventilator? No Is Patient Ambulatory and/or Out of Bed Yes REE-([facility]-ambulatory/OOB) [ 1206.894 [id number]] Kcal/Kg value to use for calculation 40 Approximate Energy Requirements Using 1604 kcal/Kg Calculation Used for Recommendations Kcal/kg Additional Notes Pro needs 1.25-1.5g/k-63g /day Fluid needs 1ml/kcal Nutrition Intervention Change Diet Order: Continue CPN Nutrition Support: 12hr cyclic CPN: 75mL/hr x 1hr , 165mL/hr x 10hr, 75mL/hr x 1hr: lipid Kcal 1,315 Protein (gm) 95 Carbohydrates (gm) 275 Fat (gm) 0 Fluid (mL) 1,800 Fiber (gm) 0 Goal #1 CPN to continue to meet 90-100 % energy and pro needs Goal #2 Wt gain/maintenance Anticipated Discharge Needs: Unable to determine at this time Follow-Up By: 06/12/18 Additional Comments Labs in AM: TORITO, Mg, and Odilia
--- NOTE | 2018-06-12 12:28 | Progress Note ---
Assessment and Plan Pt stable and doing well. Just seeing her as she's walking down the halls. Abd soft. awaiting bed availability in [facility] for transfer Selected Entries 06/09/18 06/12/18 12:00 07:15 Temperature 99.4 F 98.7 F Pulse Rate 95 H 104 H Respiratory 19 18 Rate Blood Pressure 165/81 123/74 [Left] Laboratory Tests 06/08/18 06/09/18 06/10/18 04:20 Unknown 05:48 WBC 4.3 L Hgb 8.9 L 8.9 L Hct 27.1 L 27.3 L Sodium 137 Potassium 3.8 Chloride 107.6 H Carbon Dioxide 22 Anion Gap 11 BUN 11 Creatinine 0.2 L 06/12/18 04:08 WBC Hgb Hct Sodium 137 Potassium 4.8 D Chloride 101.0 Carbon Dioxide 31 H Anion Gap BUN 11 Creatinine 0.2 L Objective Vital Signs - 12hr 06/12/18 06/12/18 06/12/18 03:51 06:09 07:15 Temperature 99.0 F 98.5 F 98.7 F Pulse Rate 95 H 59 L 104 H Respiratory 18 16 18 Rate Blood Pressure 135/65 94/49 Blood Pressure 123/74 [Left] O2 Sat by Pulse 95 93 Oximetry - Labs 06/10/18 05:48 06/12/18 04:08 Diabetes panel 06/12/18 Range/Units 04:08 Sodium 137 (137-145) mmol/L Potassium 4.8 D (3.6-5.0) mmol/L Chloride 101.0 (98-107) mmol/L Carbon Dioxide 31 H (22-30) mmol/L BUN 11 (7-17) mg/dL Creatinine 0.2 L (0.7-1.2) mg/dL Glucose 98 (65-100) mg/dL Calcium 8.3 L (8.4-10.2) mg/dL Calcium panel 06/12/18 Range/Units 04:08 Calcium 8.3 L (8.4-10.2) mg/dL Phosphorus 3.60 D (2.5-4.5) mg/dL Pituitary panel 06/12/18 Range/Units 04:08 Sodium 137 (137-145) mmol/L Potassium 4.8 D (3.6-5.0) mmol/L Chloride 101.0 (98-107) mmol/L Carbon Dioxide 31 H (22-30) mmol/L BUN 11 (7-17) mg/dL Creatinine 0.2 L (0.7-1.2) mg/dL Glucose 98 (65-100) mg/dL Calcium 8.3 L (8.4-10.2) mg/dL Adrenal panel 06/12/18 Range/Units 04:08 Sodium 137 (137-145) mmol/L Potassium 4.8 D (3.6-5.0) mmol/L Chloride 101.0 (98-107) mmol/L Carbon Dioxide 31 H (22-30) mmol/L BUN 11 (7-17) mg/dL Creatinine 0.2 L (0.7-1.2) mg/dL Glucose 98 (65-100) mg/dL Calcium 8.3 L (8.4-10.2) mg/dL
[2018-06-12] MEDS: BROVANA NEBU IH SCH ×2 (19:13→21:55)
[2018-06-12] MEDS: PULMICORT IH SCH ×2 (19:13→21:55)
[2018-06-12] MEDS: TPN ADULT 1,800 ML IV SCH ×3 (19:53→21:58)
[2018-06-12] MEDS ORDERED: TPN ADULT 1,800 ML IV SCH (20:00)
[2018-06-12] MEDS: REMERON PO SCH (22:00)
[2018-06-13] MEDS: NORCO 5/325 PO PRN ×4 (03:19→22:56)
[2018-06-13 05:21] LABS: BUN/Creatinine Ratio 27; Blood Urea Nitrogen 8 mg/dL (7-17); Calcium 8.5 mg/dL (8.4-10.2); Hemolysis Index 2
[2018-06-13] MEDS: PULMICORT IH SCH ×2 (07:56→21:03)
[2018-06-13] MEDS: BROVANA NEBU IH SCH ×2 (07:56→21:02)
[2018-06-13] MEDS: LOPRESSOR PO SCH ×2 (09:23→21:15)
[2018-06-13] MEDS: NEURONTIN PO SCH ×3 (09:24→21:14)
[2018-06-13] MEDS: DURAGESIC TD SCH (11:12)
[2018-06-13] MEDS: XANAX PO PRN ×2 (12:10→21:19)
--- NOTE | 2018-06-13 12:28 | Progress Note ---
Assessment and Plan Assessment and plan: Sepsis Etiology secondary to gangrenous and perforated appendix causing intra- abdominal/pelvic abscess. Patient is status post exploratory laparotomy with appendectomy and evacuation of pelvic abscess. Now off antibiotics and noted ID signed off. No fever off antibiotics. Perforated appendix s/p exploratory lap Cont. TPN, started on clear liquid diet which increased drainage, suspicion for non healing perforation s/p repeat CT abdomen/pelvis on 05/25/18 GS discussed pt with Dr. Malik and we are awaiting bed availability at [facility]. Dr. Malik willing to receive pt in direct transfer as long as pt agrees and understands that surgery may not be immediate. Pt will need further studies and w/u to determine when and if re-exploration will be needed. Chronic hep C. Untreated. Outpatient follow-up. Accel Hypertension. continue Cozaar to 100mg. Cont. Hydralazine prn. Diarrhea: s/p lmodium prn x 1 Tachycardia: secondary to dehydration and deconditioning. COPD. Compensated. nebs as needed Neurofibromatosis: outpt follow up Tobacco abuse. Patient counseled on smoking cessation FOR 15 MINS, Patient verbalized understanding and will think about it. Severe protein calorie malnutrition; new accounts banking representative consulted. continue with TPN, npo now Hypotension-resolved BP stable Disposition As above. - Patient Problems (1) Appendicitis with perforation Current Visit: Yes Status: Acute (2) Appendicitis with peritoneal abscess Current Visit: Yes Status: Acute (3) Sepsis Current Visit: Yes Status: Acute Qualifiers: Sepsis type: Escherichia coli Qualified Code(s): A41.51 - Sepsis due to Escherichia coli [E. coli] (4) Acute metabolic encephalopathy Current Visit: No Status: Acute History Interval history: The patient is a 57-year-old female with hypertension, neurofibromatosis, hepatitis C, COPD, nicotine dependence presented to the emergency room on 04/18/18 with complaints of abdominal pain going on for [address] scan obtained in the emergency room revealed a ruptured appendix with associated intra-abdominal abscess. General surgery was consulted and the patient underwent an emergent exploratory laparotomy with evacuation of pelvic abscess. She was noted to have a gangrenous, perforated appendix eroding including into the small bowel. As per the op note, the abscess could not be drained as the entire abscess and inflammatory process had trapped the small bowel, which was mobilized and she underwent an ileocolic anastomosis. The patient went back to the OR on 04/25/18 for drain dislodgment. Patient had surgical culture which grew Ecoli and ester, completed treatment. CT abdomen: 05/18/18- Still showed minimal drainage, per surgery. Patient underwent follow-up repeat CT of abd & pelvis with PO contrast done 05/25/18 showed no acute change. At that time, patient was started on clear liquid but continue to abdominal pain and high drainage suspicious for non healing perforation. Urology was consulted for possible entro-vesico fistula due to the color of the urine, cystogram was normal. Dr. Shelton had discussed with surgeon at [facility] for poss transfer. Dr. Shelton to call Dr. Malik, Surgeon Hospitalist Physical - Constitutional Vitals: Temp Pulse Resp BP Pulse Ox 97.9 F 100 H 18 169/67 96 06/13/18 11:00 06/13/18 11:00 06/13/18 11:00 06/13/18 11:00 06/13/18 11:00 General appearance: Present: no acute distress, well-nourished - EENT Eyes: Present: PERRL, EOM intact ENT: hearing intact, clear oral mucosa, dentition normal - Neck Neck: Present: supple, normal ROM - Respiratory Respiratory effort: normal Respiratory: bilateral: CTA - Cardiovascular Rhythm: regular Heart Sounds: Present: S1 & S2. Absent: gallop, rub - Extremities Extremities: no ischemia, No edema, Full ROM - Abdominal General gastrointestinal: soft, non-tender, non-distended, normal bowel sounds - Integumentary Integumentary: Present: clear, warm, dry - Neurologic Neurologic: CNII-XII intact, moves all extremities Results - Labs CBC & Chem 7: 06/10/18 05:48 06/13/18 Unknown Labs: Laboratory Last Values WBC 4.3 K/mm3 (4.5-11.0) L 06/10/18 05:48 RBC 3.48 M/mm3 (3.65-5.03) L 06/10/18 05:48 Hgb 8.9 gm/dl (10.1-14.3) L 06/10/18 05:48 Hct 27.3 % (30.3-42.9) L 06/10/18 05:48 MCV 79 fl (79-97) 06/10/18 05:48 MCH 26 pg (28-32) L 06/10/18 05:48 MCHC 33 % (30-34) 06/10/18 05:48 RDW 16.7 % (13.2-15.2) H 06/10/18 05:48 Plt Count 150 K/mm3 (140-440) 06/10/18 05:48 Lymph % (Auto) 19.9 % (13.4-35.0) 06/10/18 05:48 [place] % (Auto) 7.5 % (0.0-7.3) H 06/10/18 05:48 Eos % (Auto) 0.6 % (0.0-4.3) 06/10/18 05:48 Baso % (Auto) 0.5 % (0.0-1.8) 06/10/18 05:48 Lymph # 0.9 K/mm3 (1.2-5.4) L 06/10/18 05:48 [place] # 0.3 K/mm3 (0.0-0.8) 06/10/18 05:48 Eos # 0.0 K/mm3 (0.0-0.4) 06/10/18 05:48 Baso # 0.0 K/mm3 (0.0-0.1) 06/10/18 05:48 Add Manual Diff Complete 04/30/18 05:41 Total Counted 100 04/30/18 05:41 Seg Neutrophils % 71.5 % (40.0-70.0) H 06/10/18 05:48 Seg Neuts % (Manual) 88.0 % (40.0-70.0) H 04/30/18 05:41 Band Neutrophils % 1.0 % 04/30/18 05:41 Lymphocytes % (Manual) 8.0 % (13.4-35.0) L 04/30/18 05:41 Reactive Lymphs % (Man) 0 % 04/30/18 05:41 Monocytes % (Manual) 3.0 % (0.0-7.3) 04/30/18 05:41 Eosinophils % (Manual) 0 % (0.0-4.3) 04/30/18 05:41 Basophils % (Manual) 0 % (0.0-1.8) 04/30/18 05:41 Metamyelocytes % 0 % 04/30/18 05:41 Myelocytes % 0 % 04/30/18 05:41 Promyelocytes % 0 % 04/30/18 05:41 Blast Cells % 0 % 04/30/18 05:41 Nucleated RBC % Not Reportable 04/30/18 05:41 Seg Neutrophils # 3.1 K/mm3 (1.8-7.7) 06/10/18 05:48 Seg Neutrophils # Man 7.7 K/mm3 (1.8-7.7) 04/30/18 05:41 Band Neutrophils # 0.1 K/mm3 04/30/18 05:41 Lymphocytes # (Manual) 0.7 K/mm3 (1.2-5.4) L 04/30/18 05:41 Abs React Lymphs (Man) 0.0 K/mm3 04/30/18 05:41 Monocytes # (Manual) 0.3 K/mm3 (0.0-0.8) 04/30/18 05:41 Eosinophils # (Manual) 0.0 K/mm3 (0.0-0.4) 04/30/18 05:41 Basophils # (Manual) 0.0 K/mm3 (0.0-0.1) 04/30/18 05:41 Metamyelocytes # 0.0 K/mm3 04/30/18 05:41 Myelocytes # 0.0 K/mm3 04/30/18 05:41 Promyelocytes # 0.0 K/mm3 04/30/18 05:41 Blast Cells # 0.0 K/mm3 04/30/18 05:41 WBC Morphology Not Reportable 04/30/18 05:41 Hypersegmented Neuts Not Reportable 04/30/18 05:41 Hyposegmented Neuts Not Reportable 04/30/18 05:41 Hypogranular Neuts Not Reportable 04/30/18 05:41 Smudge Cells Not Reportable 04/30/18 05:41 Toxic Granulation Not Reportable 04/30/18 05:41 Toxic Vacuolation Not Reportable 04/30/18 05:41 Dohle Bodies Not Reportable 04/30/18 05:41 Pelger-Huet Anomaly Not Reportable 04/30/18 05:41 Nicole Rods Not Reportable 04/30/18 05:41 Platelet Estimate Appears normal 04/30/18 05:41 Clumped Platelets Not Reportable 04/30/18 05:41 Plt Clumps, EDTA Not Reportable 04/30/18 05:41 Large Platelets Not Reportable 04/30/18 05:41 Giant Platelets Not Reportable 04/30/18 05:41 Platelet Satelliting Not Reportable 04/30/18 05:41 Plt Morphology Comment Not Reportable 04/30/18 05:41 RBC Morphology Not Reportable 04/30/18 05:41 Dimorphic RBCs Not Reportable 04/30/18 05:41 Polychromasia Not Reportable 04/30/18 05:41 Hypochromasia 1+ 04/30/18 05:41 Poikilocytosis Not Reportable 04/30/18 05:41 Anisocytosis 1+ 04/30/18 05:41 Microcytosis Not Reportable 04/30/18 05:41 Macrocytosis Not Reportable 04/30/18 05:41 Spherocytes Not Reportable 04/30/18 05:41 Pappenheimer Bodies Not Reportable 04/30/18 05:41 Sickle Cells Not Reportable 04/30/18 05:41 Target Cells Not Reportable 04/30/18 05:41 Tear Drop Cells Not Reportable 04/30/18 05:41 Ovalocytes Few 04/30/18 05:41 Stomatocytes Few 04/29/18 05:18 Helmet Cells Not Reportable 04/30/18 05:41 [place] Bodies Not Reportable 04/30/18 05:41 [place] Rings Not Reportable 04/30/18 05:41 [place] Cells Not Reportable 04/30/18 05:41 Bite Cells Not Reportable 04/30/18 05:41 Crenated Cell Not Reportable 04/30/18 05:41 Elliptocytes Not Reportable 04/30/18 05:41 Acanthocytes (Spur) Not Reportable 04/30/18 05:41 Rouleaux Not Reportable 04/30/18 05:41 Hemoglobin C Crystals Not Reportable 04/30/18 05:41 Schistocytes Not Reportable 04/30/18 05:41 Malaria parasites Not Reportable 04/30/18 05:41 Hung Bodies Not Reportable 04/30/18 05:41 Hem Pathologist Commnt No 04/30/18 05:41 PT 15.3 Sec. (12.2-14.9) H 04/22/18 05:19 INR 1.17 (0.87-1.13) H 04/22/18 05:19 APTT 29.4 Sec. (24.2-36.6) 04/19/18 05:19 POC ABG pH 7.367 (7.35-7.45) 04/19/18 00:19 POC ABG pCO2 36.8 (35-45) 04/19/18 00:19 POC ABG pO2 84 (80-105) 04/19/18 00:19 POC ABG HCO3 21.1 04/19/18 00:19 POC ABG Total CO2 22 04/19/18 00:19 POC ABG O2 Sat 96 04/19/18 00:19 POC ABG Base Excess -4 04/19/18 00:19 VBG pH 7.439 (7.320-7.420) H 04/18/18 14:30 FiO2 32 % 04/19/18 00:19 Sodium 140 mmol/L (137-145) 06/13/18 Unknown Potassium 4.1 mmol/L (3.6-5.0) 06/13/18 Unknown Chloride 103.9 mmol/L (98-107) 06/13/18 Unknown Carbon Dioxide 26 mmol/L (22-30) 06/13/18 Unknown Anion Gap 14 mmol/L 06/13/18 Unknown BUN 8 mg/dL (7-17) 06/13/18 Unknown Creatinine 0.3 mg/dL (0.7-1.2) L 06/13/18 Unknown Estimated GFR > 60 ml/min 06/13/18 Unknown BUN/Creatinine Ratio 27 % 06/13/18 Unknown Glucose 119 mg/dL (65-100) H 06/13/18 Unknown POC Glucose 129 (70-105) H 06/13/18 11:12 Lactic Acid 1.20 mmol/L (0.7-2.0) 05/19/18 10:27 Calcium 8.5 mg/dL (8.4-10.2) 06/13/18 Unknown Phosphorus 4.10 mg/dL (2.5-4.5) 06/13/18 Unknown Magnesium 1.80 mg/dL (1.7-2.3) 06/13/18 Unknown Total Bilirubin 0.40 mg/dL (0.1-1.2) 06/06/18 05:40 AST 89 units/L (5-40) H 06/06/18 05:40 ALT 84 units/L (7-56) H 06/06/18 05:40 Alkaline Phosphatase 116 units/L (35-129) 06/06/18 05:40 Total Protein 5.9 g/dL (6.3-8.2) L 06/06/18 05:40 Albumin 3.0 g/dL (3.9-5) L 06/06/18 05:40 Albumin/Globulin Ratio 1.0 % 06/06/18 05:40 Prealbumin 0.113 g/L (0.200-0.400) L 05/20/18 06:25 Triglycerides 1326 mg/dL (2-149) H 06/09/18 Unknown Urine Color Yellow (Yellow) 04/20/18 13:35 Urine Turbidity Clear (Clear) 04/20/18 13:35 Urine pH 5.0 (5.0-7.0) 04/20/18 13:35 Ur Specific [place] 1.011 (1.003-1.030) 04/20/18 13:35 Urine Protein <15 mg/dl mg/dL (Negative) 04/20/18 13:35 Urine Glucose (UA) Neg mg/dL (Negative) 04/20/18 13:35 Urine Ketones 20 mg/dL (Negative) 04/20/18 13:35 Urine Blood Sm (Negative) 04/20/18 13:35 Urine Nitrite Neg (Negative) 04/20/18 13:35 Urine Bilirubin Neg (Negative) 04/20/18 13:35 Urine Urobilinogen 2.0 mg/dL (<2.0) 04/20/18 13:35 Ur Leukocyte Esterase Tr (Negative) 04/20/18 13:35 Urine WBC (Auto) 2.0 /HPF (0.0-6.0) 04/20/18 13:35 Urine RBC (Auto) 1.0 /HPF (0.0-6.0) 04/20/18 13:35 U Epithel Cells (Auto) 2.0 /HPF (0-13.0) 04/18/18 16:45 Urine Bacteria (Auto) 2+ /HPF (Negative) 04/18/18 16:45 Urine Mucus Few /HPF 04/20/18 13:35 Blood Type O POSITIVE 04/19/18 13:05 Antibody Screen Negative 04/19/18 13:05 Crossmatch See Detail 04/19/18 13:05 Active Medications - Current Medications Current Medications: Generic Name Dose Route Start Last Admin Trade Name Freq PRN Reason Stop Dose Admin Acetaminophen 650 mg 05/20/18 12:12 05/20/18 12:41 Tylenol MT 650 mg Q4H PRN Administration Fever >101 Acetaminophen/Hydrocodone Bitart 1 each 06/06/18 11:51 06/13/18 09:23 [place] 5/325 PO 1 each Q4H PRN Administration Pain, Moderate (4-6) Alprazolam 0.25 mg 06/05/18 14:11 06/13/18 12:10 Xanax PO 0.25 mg Q8H PRN Administration Anxiety Arformoterol Tartrate 15 mcg 05/16/18 20:00 06/13/18 07:56 Brovana Nebu IH 15 mcg Q12HRT DUSTIN Administration Benzocaine/Menthol 1 each 04/20/18 12:51 Cepacol X Strength MM Q2HR PRN Sore Throat Budesonide 0.5 mg 05/16/18 20:00 06/13/18 07:56 Pulmicort IH 0.5 mg Q12HRT DUSTIN Administration Fentanyl 25 mcg 05/17/18 11:00 06/13/18 11:12 Duragesic TD 25 mcg Q3D DUSTIN Administration Gabapentin 800 mg 05/02/18 20:00 06/13/18 09:24 Neurontin PO 800 mg TID DUSTIN Administration Hydralazine HCl 10 mg 04/21/18 11:45 05/07/18 05:50 Apresoline IV 10 mg Q4HR PRN Administration SBP >160 Amino Acids/Electrolytes/Dextrose 1,800 mls @ 0 mls/hr 06/13/18 20:00 Tpn Adult IV 06/14/18 19:59 DAILY@1999 [facility] Protocol As Directed Loperamide HCl 2 mg 05/17/18 14:46 05/17/18 17:11 Imodium PO 2 mg Q2H PRN Administration Diarrhea Metoprolol Tartrate 12.5 mg 05/13/18 10:00 06/13/18 09:23 Lopressor PO 12.5 mg BID DUSTIN Administration Mirtazapine 15 mg 05/09/18 22:00 06/12/18 22:00 Remeron PO 15 mg QHS DUSTIN Administration Ondansetron HCl 4 mg 05/21/18 11:34 06/12/18 17:18 Zofran IV 4 mg Q4H PRN Administration Nausea And Vomiting Nutrition/Malnutrition Assess - Dietary Evaluation Nutrition/Malnutrition Findings: Nutrition Notes Start: 04/24/18 09:13 Freq: Status: Active Protocol: Document 06/13/18 11:05 [facility] (Rec: 06/13/18 11:10 [facility] SRW- [id number]) Nutrition Notes Current Diagnosis COPD Other Pertinent Diagnosis Perforated appendix s/p exp lap, Hep C Current Diet 12hr cyclic TPN Labs/Tests Reviewed Pertinent Medications Reviewed Height 5 ft 1 in Weight 42.5 kg [place] Body Weight (kg) 47.72 BMI 17.6 Subjective/Other Information Day 48 TPN. Pt awaiting bed availability at [facility]. Percent of energy/protein needs met: 100% energy and pro Burn Absent Trauma Absent #2 Nutrition Diagnosis Increased nutrient needs ( specify in comment below) Diagnosis Progress(for reassessment Continues documentation) #1 Nutrition Diagnosis Inadequate oral intake Diagnosis Progress(for reassessment Continues documentation) Is patient on ventilator? No Is Patient Ambulatory and/or Out of Bed Yes REE-([facility]-ambulatory/OOB) [ 1238.094 [id number]] Kcal/Kg value to use for calculation 40 Approximate Energy Requirements Using 1700 kcal/Kg Additional Notes Pro needs 1.25-1.5g/k-64g /day Fluid needs 1ml/kcal Nutrition Intervention Nutrition Support: Continue 12hr cyclic CPN: 75mL /hr x 1hr, 165mL/hr x 10hr, 75mL/hr x 1hr: MVI Osmolality: 1809. Kcal 1,315 Protein (gm) 95 Carbohydrates (gm) 275 Fat (gm) 0 Fluid (mL) 1,800 Fiber (gm) 0 Goal #1 CPN to continue to meet 100% energy and pro needs Goal #2 Wt gain/maintenance Follow-Up By: 06/14/18 Additional Comments Labs in am: BMP, Mg, Phos
[2018-06-13] MEDS ORDERED: TPN ADULT 1,800 ML IV SCH (20:00)
[2018-06-13] MEDS: REMERON PO SCH (21:15)
[2018-06-14] MEDS: NORCO 5/325 PO PRN ×5 (04:33→21:49)
[2018-06-14 06:30] LABS: BUN/Creatinine Ratio 23; Blood Urea Nitrogen 9 mg/dL (7-17); Calcium 9.2 mg/dL (8.4-10.2); Hemolysis Index 3
[2018-06-14] MEDS: BROVANA NEBU IH SCH ×2 (07:31→20:06)
[2018-06-14] MEDS: PULMICORT IH SCH ×2 (07:31→20:05)
[2018-06-14] MEDS: LOPRESSOR PO SCH ×3 (08:26→21:50)
[2018-06-14] MEDS: ZOFRAN ODT PO PRN ×4 (08:26→21:49)
[2018-06-14] MEDS: NEURONTIN PO SCH ×3 (08:27→19:43)
--- NOTE | 2018-06-14 11:03 | Progress Note ---
Assessment and Plan Assessment and plan: Sepsis Etiology secondary to gangrenous and perforated appendix causing intra- abdominal/pelvic abscess. Patient is status post exploratory laparotomy with appendectomy and evacuation of pelvic abscess. Now off antibiotics and noted ID signed off. No fever off antibiotics. Perforated appendix s/p exploratory lap Cont. TPN, started on clear liquid diet which increased drainage, suspicion for non healing perforation s/p repeat CT abdomen/pelvis on 05/25/18 GS discussed pt with Dr. Malik and we are awaiting bed availability at [facility]. Dr. Malik willing to receive pt in direct transfer as long as pt agrees and understands that surgery may not be immediate. Pt will need further studies and w/u to determine when and if re-exploration will be needed. Chronic hep C. Untreated. Outpatient follow-up. Accel Hypertension. continue Cozaar to 100mg. Cont. Hydralazine prn. Diarrhea: s/p lmodium prn x 1 Tachycardia: secondary to dehydration and deconditioning. COPD. Compensated. nebs as needed Neurofibromatosis: outpt follow up Tobacco abuse. Patient counseled on smoking cessation FOR 15 MINS, Patient verbalized understanding and will think about it. 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 continue with TPN, npo now Hypotension-resolved BP stable Disposition As above. - Patient Problems (1) Appendicitis with perforation Current Visit: Yes Status: Acute (2) Appendicitis with peritoneal abscess Current Visit: Yes Status: Acute (3) Sepsis Current Visit: Yes Status: Acute Qualifiers: Sepsis type: Escherichia coli Qualified Code(s): A41.51 - Sepsis due to Escherichia coli [E. coli] (4) Acute metabolic encephalopathy Current Visit: No Status: Acute History Interval history: The patient is a 57-year-old female with hypertension, neurofibromatosis, hepatitis C, COPD, nicotine dependence presented to the emergency room on 04/18/18 with complaints of abdominal pain going on for [address] scan obtained in the emergency room revealed a ruptured appendix with associated intra-abdominal abscess. General surgery was consulted and the patient underwent an emergent exploratory laparotomy with evacuation of pelvic abscess. She was noted to have a gangrenous, perforated appendix eroding including into the small bowel. As per the op note, the abscess could not be drained as the entire abscess and inflammatory process had trapped the small bowel, which was mobilized and she underwent an ileocolic anastomosis. The patient went back to the OR on 04/25/18 for drain dislodgment. Patient had surgical culture which grew Ecoli and ester, completed treatment. CT abdomen: 05/18/18- Still showed minimal drainage, per surgery. Patient underwent follow-up repeat CT of abd & pelvis with PO contrast done 05/25/18 showed no acute change. At that time, patient was started on clear liquid but continue to abdominal pain and high drainage suspicious for non healing perforation. Urology was consulted for possible entro-vesico fistula due to the color of the urine, cystogram was normal. Dr. Shelton had discussed with surgeon at [facility] for poss transfer. Dr. Shelton to call Dr. Malik, Surgeon Hospitalist Physical - Constitutional Vitals: Temp Pulse Resp BP Pulse Ox 99.2 F 100 H 18 128/64 93 06/14/18 08:06 06/14/18 08:20 06/14/18 08:20 06/14/18 08:06 06/14/18 08:06 General appearance: Present: no acute distress, well-nourished - EENT Eyes: Present: PERRL, EOM intact ENT: hearing intact, clear oral mucosa, dentition normal - Neck Neck: Present: supple, normal ROM - Respiratory Respiratory effort: normal Respiratory: bilateral: CTA - Cardiovascular Rhythm: regular Heart Sounds: Present: S1 & S2. Absent: gallop, rub - Extremities Extremities: no ischemia, No edema, Full ROM - Abdominal General gastrointestinal: soft, non-tender, non-distended, normal bowel sounds - Integumentary Integumentary: Present: clear, warm, dry - Neurologic Neurologic: CNII-XII intact, moves all extremities Results - Labs CBC & Chem 7: 06/10/18 05:48 06/14/18 05:41 Labs: Laboratory Last Values WBC 4.3 K/mm3 (4.5-11.0) L 06/10/18 05:48 RBC 3.48 M/mm3 (3.65-5.03) L 06/10/18 05:48 Hgb 8.9 gm/dl (10.1-14.3) L 06/10/18 05:48 Hct 27.3 % (30.3-42.9) L 06/10/18 05:48 MCV 79 fl (79-97) 06/10/18 05:48 MCH 26 pg (28-32) L 06/10/18 05:48 MCHC 33 % (30-34) 06/10/18 05:48 RDW 16.7 % (13.2-15.2) H 06/10/18 05:48 Plt Count 150 K/mm3 (140-440) 06/10/18 05:48 Lymph % (Auto) 19.9 % (13.4-35.0) 06/10/18 05:48 [place] % (Auto) 7.5 % (0.0-7.3) H 06/10/18 05:48 Eos % (Auto) 0.6 % (0.0-4.3) 06/10/18 05:48 Baso % (Auto) 0.5 % (0.0-1.8) 06/10/18 05:48 Lymph # 0.9 K/mm3 (1.2-5.4) L 06/10/18 05:48 [place] # 0.3 K/mm3 (0.0-0.8) 06/10/18 05:48 Eos # 0.0 K/mm3 (0.0-0.4) 06/10/18 05:48 Baso # 0.0 K/mm3 (0.0-0.1) 06/10/18 05:48 Add Manual Diff Complete 04/30/18 05:41 Total Counted 100 04/30/18 05:41 Seg Neutrophils % 71.5 % (40.0-70.0) H 06/10/18 05:48 Seg Neuts % (Manual) 88.0 % (40.0-70.0) H 04/30/18 05:41 Band Neutrophils % 1.0 % 04/30/18 05:41 Lymphocytes % (Manual) 8.0 % (13.4-35.0) L 04/30/18 05:41 Reactive Lymphs % (Man) 0 % 04/30/18 05:41 Monocytes % (Manual) 3.0 % (0.0-7.3) 04/30/18 05:41 Eosinophils % (Manual) 0 % (0.0-4.3) 04/30/18 05:41 Basophils % (Manual) 0 % (0.0-1.8) 04/30/18 05:41 Metamyelocytes % 0 % 04/30/18 05:41 Myelocytes % 0 % 04/30/18 05:41 Promyelocytes % 0 % 04/30/18 05:41 Blast Cells % 0 % 04/30/18 05:41 Nucleated RBC % Not Reportable 04/30/18 05:41 Seg Neutrophils # 3.1 K/mm3 (1.8-7.7) 06/10/18 05:48 Seg Neutrophils # Man 7.7 K/mm3 (1.8-7.7) 04/30/18 05:41 Band Neutrophils # 0.1 K/mm3 04/30/18 05:41 Lymphocytes # (Manual) 0.7 K/mm3 (1.2-5.4) L 04/30/18 05:41 Abs React Lymphs (Man) 0.0 K/mm3 04/30/18 05:41 Monocytes # (Manual) 0.3 K/mm3 (0.0-0.8) 04/30/18 05:41 Eosinophils # (Manual) 0.0 K/mm3 (0.0-0.4) 04/30/18 05:41 Basophils # (Manual) 0.0 K/mm3 (0.0-0.1) 04/30/18 05:41 Metamyelocytes # 0.0 K/mm3 04/30/18 05:41 Myelocytes # 0.0 K/mm3 04/30/18 05:41 Promyelocytes # 0.0 K/mm3 04/30/18 05:41 Blast Cells # 0.0 K/mm3 04/30/18 05:41 WBC Morphology Not Reportable 04/30/18 05:41 Hypersegmented Neuts Not Reportable 04/30/18 05:41 Hyposegmented Neuts Not Reportable 04/30/18 05:41 Hypogranular Neuts Not Reportable 04/30/18 05:41 Smudge Cells Not Reportable 04/30/18 05:41 Toxic Granulation Not Reportable 04/30/18 05:41 Toxic Vacuolation Not Reportable 04/30/18 05:41 Dohle Bodies Not Reportable 04/30/18 05:41 Pelger-Huet Anomaly Not Reportable 04/30/18 05:41 Nicole Rods Not Reportable 04/30/18 05:41 Platelet Estimate Appears normal 04/30/18 05:41 Clumped Platelets Not Reportable 04/30/18 05:41 Plt Clumps, EDTA Not Reportable 04/30/18 05:41 Large Platelets Not Reportable 04/30/18 05:41 Giant Platelets Not Reportable 04/30/18 05:41 Platelet Satelliting Not Reportable 04/30/18 05:41 Plt Morphology Comment Not Reportable 04/30/18 05:41 RBC Morphology Not Reportable 04/30/18 05:41 Dimorphic RBCs Not Reportable 04/30/18 05:41 Polychromasia Not Reportable 04/30/18 05:41 Hypochromasia 1+ 04/30/18 05:41 Poikilocytosis Not Reportable 04/30/18 05:41 Anisocytosis 1+ 04/30/18 05:41 Microcytosis Not Reportable 04/30/18 05:41 Macrocytosis Not Reportable 04/30/18 05:41 Spherocytes Not Reportable 04/30/18 05:41 Pappenheimer Bodies Not Reportable 04/30/18 05:41 Sickle Cells Not Reportable 04/30/18 05:41 Target Cells Not Reportable 04/30/18 05:41 Tear Drop Cells Not Reportable 04/30/18 05:41 Ovalocytes Few 04/30/18 05:41 Stomatocytes Few 04/29/18 05:18 Helmet Cells Not Reportable 04/30/18 05:41 [place] Bodies Not Reportable 04/30/18 05:41 [place] Rings Not Reportable 04/30/18 05:41 [place] Cells Not Reportable 04/30/18 05:41 Bite Cells Not Reportable 04/30/18 05:41 Crenated Cell Not Reportable 04/30/18 05:41 Elliptocytes Not Reportable 04/30/18 05:41 Acanthocytes (Spur) Not Reportable 04/30/18 05:41 Rouleaux Not Reportable 04/30/18 05:41 Hemoglobin C Crystals Not Reportable 04/30/18 05:41 Schistocytes Not Reportable 04/30/18 05:41 Malaria parasites Not Reportable 04/30/18 05:41 Hung Bodies Not Reportable 04/30/18 05:41 Hem Pathologist Commnt No 04/30/18 05:41 PT 15.3 Sec. (12.2-14.9) H 04/22/18 05:19 INR 1.17 (0.87-1.13) H 04/22/18 05:19 APTT 29.4 Sec. (24.2-36.6) 04/19/18 05:19 POC ABG pH 7.367 (7.35-7.45) 04/19/18 00:19 POC ABG pCO2 36.8 (35-45) 04/19/18 00:19 POC ABG pO2 84 (80-105) 04/19/18 00:19 POC ABG HCO3 21.1 04/19/18 00:19 POC ABG Total CO2 22 04/19/18 00:19 POC ABG O2 Sat 96 04/19/18 00:19 POC ABG Base Excess -4 04/19/18 00:19 VBG pH 7.439 (7.320-7.420) H 04/18/18 14:30 FiO2 32 % 04/19/18 00:19 Sodium 144 mmol/L (137-145) 06/14/18 05:41 Potassium 5.1 mmol/L (3.6-5.0) H D 06/14/18 05:41 Chloride 105.2 mmol/L (98-107) 06/14/18 05:41 Carbon Dioxide 32 mmol/L (22-30) H 06/14/18 05:41 Anion Gap 12 mmol/L 06/14/18 05:41 BUN 9 mg/dL (7-17) 06/14/18 05:41 Creatinine 0.4 mg/dL (0.7-1.2) L 06/14/18 05:41 Estimated GFR > 60 ml/min 06/14/18 05:41 BUN/Creatinine Ratio 23 % 06/14/18 05:41 Glucose 109 mg/dL (65-100) H 06/14/18 05:41 POC Glucose 115 (70-105) H 06/14/18 08:10 Lactic Acid 1.20 mmol/L (0.7-2.0) 05/19/18 10:27 Calcium 9.2 mg/dL (8.4-10.2) 06/14/18 05:41 Phosphorus 4.50 mg/dL (2.5-4.5) 06/14/18 05:41 Magnesium 2.10 mg/dL (1.7-2.3) 06/14/18 05:41 Total Bilirubin 0.40 mg/dL (0.1-1.2) 06/06/18 05:40 AST 89 units/L (5-40) H 06/06/18 05:40 ALT 84 units/L (7-56) H 06/06/18 05:40 Alkaline Phosphatase 116 units/L (35-129) 06/06/18 05:40 Total Protein 5.9 g/dL (6.3-8.2) L 06/06/18 05:40 Albumin 3.0 g/dL (3.9-5) L 06/06/18 05:40 Albumin/Globulin Ratio 1.0 % 06/06/18 05:40 Prealbumin 0.113 g/L (0.200-0.400) L 05/20/18 06:25 Triglycerides 1326 mg/dL (2-149) H 06/09/18 Unknown Urine Color Yellow (Yellow) 04/20/18 13:35 Urine Turbidity Clear (Clear) 04/20/18 13:35 Urine pH 5.0 (5.0-7.0) 04/20/18 13:35 Ur Specific [place] 1.011 (1.003-1.030) 04/20/18 13:35 Urine Protein <15 mg/dl mg/dL (Negative) 04/20/18 13:35 Urine Glucose (UA) Neg mg/dL (Negative) 04/20/18 13:35 Urine Ketones 20 mg/dL (Negative) 04/20/18 13:35 Urine Blood Sm (Negative) 04/20/18 13:35 Urine Nitrite Neg (Negative) 04/20/18 13:35 Urine Bilirubin Neg (Negative) 04/20/18 13:35 Urine Urobilinogen 2.0 mg/dL (<2.0) 04/20/18 13:35 Ur Leukocyte Esterase Tr (Negative) 04/20/18 13:35 Urine WBC (Auto) 2.0 /HPF (0.0-6.0) 04/20/18 13:35 Urine RBC (Auto) 1.0 /HPF (0.0-6.0) 04/20/18 13:35 U Epithel Cells (Auto) 2.0 /HPF (0-13.0) 04/18/18 16:45 Urine Bacteria (Auto) 2+ /HPF (Negative) 04/18/18 16:45 Urine Mucus Few /HPF 04/20/18 13:35 Blood Type O POSITIVE 04/19/18 13:05 Antibody Screen Negative 04/19/18 13:05 Crossmatch See Detail 04/19/18 13:05 Active Medications - Current Medications Current Medications: Generic Name Dose Route Start Last Admin Trade Name Freq PRN Reason Stop Dose Admin Acetaminophen 650 mg 05/20/18 12:12 05/20/18 12:41 Tylenol PA 650 mg Q4H PRN Administration Fever >101 Acetaminophen/Hydrocodone Bitart 1 each 06/06/18 11:51 06/14/18 08:25 [place] 5/325 PO 1 each Q4H PRN Administration Pain, Moderate (4-6) Alprazolam 0.25 mg 06/05/18 14:11 06/13/18 21:19 Xanax PO 0.25 mg Q8H PRN Administration Anxiety Arformoterol Tartrate 15 mcg 05/16/18 20:00 06/14/18 07:31 Brovana Nebu IH 15 mcg Q12HRT DUSTIN Administration Benzocaine/Menthol 1 each 04/20/18 12:51 Cepacol X Strength MM Q2HR PRN Sore Throat Budesonide 0.5 mg 05/16/18 20:00 06/14/18 07:31 Pulmicort IH 0.5 mg Q12HRT DUSTIN Administration Fentanyl 25 mcg 05/17/18 11:00 06/13/18 11:12 Duragesic TD 25 mcg Q3D DUSTIN Administration Gabapentin 800 mg 05/02/18 20:00 06/14/18 08:27 Neurontin PO 800 mg TID DUSTIN Administration Hydralazine HCl 10 mg 04/21/18 11:45 05/07/18 05:50 Apresoline IV 10 mg Q4HR PRN Administration SBP >160 Amino Acids/Electrolytes/Dextrose 1,800 mls @ 0 mls/hr 06/13/18 20:00 06/13/18 20:16 Tpn Adult IV 06/14/18 19:59 75 mls/hr DAILY@2000 DUSTIN Administration Protocol As Directed Loperamide HCl 2 mg 05/17/18 14:46 03/10/19 17:11 Imodium PO 2 mg Q2H PRN Administration Diarrhea Metoprolol Tartrate 12.5 mg 05/13/18 10:00 06/14/18 08:26 Lopressor PO 12.5 mg BID DUSTIN Administration Mirtazapine 15 mg 05/09/18 22:00 06/13/18 21:15 Remeron PO 15 mg QHS DUSTIN Administration Ondansetron HCl 4 mg 06/14/18 07:07 06/14/18 08:26 Zofran Odt PO 4 mg Q4H PRN Administration Nausea Nutrition/Malnutrition Assess - Dietary Evaluation Nutrition/Malnutrition Findings: Nutrition Notes Start: 04/24/18 09:13 Freq: Status: Active Protocol: Document 06/13/18 11:05 MARCO (Rec: 06/13/18 11:10 MARCO [id number]) Nutrition Notes Current Diagnosis COPD Other Pertinent Diagnosis Perforated appendix s/p exp lap, Hep C Current Diet 12hr cyclic TPN Labs/Tests Reviewed Pertinent Medications Reviewed Height 5 ft 1 in Weight 42.5 kg [place] Body Weight (kg) 47.72 BMI 17.6 Subjective/Other Information Day 48 TPN. Pt awaiting bed availability at [facility]. Percent of energy/protein needs met: 100% energy and pro Burn Absent Trauma Absent #2 Nutrition Diagnosis Increased nutrient needs ( specify in comment below) Diagnosis Progress(for reassessment Continues documentation) #1 Nutrition Diagnosis Inadequate oral intake Diagnosis Progress(for reassessment Continues documentation) Is patient on ventilator? No Is Patient Ambulatory and/or Out of Bed Yes REE-([facility]-ambulatory/OOB) [ 1238.094 [id number]] Kcal/Kg value to use for calculation 40 Approximate Energy Requirements Using 1700 kcal/Kg Additional Notes Pro needs 1.25-1.5g/k-64g /day Fluid needs 1ml/kcal Nutrition Intervention Nutrition Support: Continue 12hr cyclic CPN: 75mL /hr x 1hr, 165mL/hr x 10hr, 75mL/hr x 1hr: MVI Osmolality: 1809. Kcal 1,315 Protein (gm) 95 Carbohydrates (gm) 275 Fat (gm) 0 Fluid (mL) 1,800 Fiber (gm) 0 Goal #1 CPN to continue to meet 100% energy and pro needs Goal #2 Wt gain/maintenance Follow-Up By: 06/14/18 Additional Comments Labs in am: TORITO Mg, Herlindas
--- NOTE | 2018-06-14 13:58 | Progress Note ---
Assessment and Plan Pt feeling well. no compl O drainage Abd soft stable awaiting transfer on Friday Selected Entries 06/14/18 12:05 Temperature 98.7 F Pulse Rate 90 Respiratory 20 Rate Blood Pressure 110/60 Objective Vital Signs - 12hr 06/14/18 06/14/18 06/14/18 04:50 08:06 08:10 Temperature 98.5 F 99.2 F Pulse Rate 90 102 H Pulse Rate [ 102 H Throughout] Respiratory 16 18 Rate Respiratory 18 Rate [ Throughout] Blood Pressure 140/69 128/64 O2 Sat by Pulse 92 93 Oximetry 06/14/18 06/14/18 08:20 12:05 Temperature 98.7 F Pulse Rate 90 Pulse Rate [ 100 H Throughout] Respiratory 20 Rate Respiratory 18 Rate [ Throughout] Blood Pressure 110/60 O2 Sat by Pulse 91 Oximetry - Labs 06/10/18 05:48 06/14/18 05:41 Diabetes panel 06/14/18 Range/Units 05:41 Sodium 144 (137-145) mmol/L Potassium 5.1 H D (3.6-5.0) mmol/L Chloride 105.2 (98-107) mmol/L Carbon Dioxide 32 H (22-30) mmol/L BUN 9 (7-17) mg/dL Creatinine 0.4 L (0.7-1.2) mg/dL Glucose 109 H (65-100) mg/dL Calcium 9.2 (8.4-10.2) mg/dL Calcium panel 06/14/18 Range/Units 05:41 Calcium 9.2 (8.4-10.2) mg/dL Phosphorus 4.50 (2.5-4.5) mg/dL Pituitary panel 06/14/18 Range/Units 05:41 Sodium 144 (137-145) mmol/L Potassium 5.1 H D (3.6-5.0) mmol/L Chloride 105.2 (98-107) mmol/L Carbon Dioxide 32 H (22-30) mmol/L BUN 9 (7-17) mg/dL Creatinine 0.4 L (0.7-1.2) mg/dL Glucose 109 H (65-100) mg/dL Calcium 9.2 (8.4-10.2) mg/dL Adrenal panel 06/14/18 Range/Units 05:41 Sodium 144 (137-145) mmol/L Potassium 5.1 H D (3.6-5.0) mmol/L Chloride 105.2 (98-107) mmol/L Carbon Dioxide 32 H (22-30) mmol/L BUN 9 (7-17) mg/dL Creatinine 0.4 L (0.7-1.2) mg/dL Glucose 109 H (65-100) mg/dL Calcium 9.2 (8.4-10.2) mg/dL
[2018-06-14] MEDS: XANAX PO PRN ×2 (14:46→21:49)
[2018-06-14] MEDS ORDERED: TPN ADULT 1,800 ML IV SCH (20:00)
[2018-06-14] MEDS: REMERON PO SCH (21:49)
[2018-06-15] MEDS: NORCO 5/325 PO PRN ×5 (03:01→23:18)
[2018-06-15] MEDS: XANAX PO PRN ×2 (05:25→20:23)
[2018-06-15] MEDS: ZOFRAN ODT PO PRN ×3 (05:41→15:23)
[2018-06-15 06:23] LABS: Alanine Aminotransferase 68 units/L (7-56); Albumin 2.6 g/dL (3.9-5); BUN/Creatinine Ratio 43; Blood Urea Nitrogen 13 mg/dL (7-17); Calcium 8.4 mg/dL (8.4-10.2); Hemolysis Index 1
[2018-06-15 06:32] LABS: Prealbumin 0.057 g/L (0.200-0.400)
[2018-06-15] MEDS: BROVANA NEBU IH SCH ×2 (07:52→19:26)
[2018-06-15] MEDS: PULMICORT IH SCH ×2 (07:52→19:26)
--- NOTE | 2018-06-15 09:34 | Progress Note ---
Assessment and Plan Assessment and plan: Sepsis Etiology secondary to gangrenous and perforated appendix causing intra- abdominal/pelvic abscess. Patient is status post exploratory laparotomy with appendectomy and evacuation of pelvic abscess. Now off antibiotics and noted ID signed off. No fever off antibiotics. Perforated appendix s/p exploratory lap Cont. TPN, started on clear liquid diet which increased drainage, suspicion for non healing perforation s/p repeat CT abdomen/pelvis on 05/25/18 GS discussed pt with Dr. Malik and we are awaiting bed availability at [facility]. Dr. Malik willing to receive pt in direct transfer as long as pt agrees and understands that surgery may not be immediate. Pt will need further studies and w/u to determine when and if re-exploration will be needed. Chronic hep C. Untreated. Outpatient follow-up. Accel Hypertension. continue Cozaar to 100mg. Cont. Hydralazine prn. Diarrhea: s/p lmodium prn x 1 Tachycardia: secondary to dehydration and deconditioning. COPD. Compensated. nebs as needed Neurofibromatosis: outpt follow up Tobacco abuse. Patient counseled on smoking cessation FOR 15 MINS, Patient verbalized understanding and will think about it. Severe protein calorie malnutrition; director of quality control consulted. continue with TPN, npo now Hypotension-resolved BP stable Disposition As above. - Patient Problems (1) Appendicitis with perforation Current Visit: Yes Status: Acute (2) Appendicitis with peritoneal abscess Current Visit: Yes Status: Acute (3) Sepsis Current Visit: Yes Status: Acute Qualifiers: Sepsis type: Escherichia coli Qualified Code(s): A41.51 - Sepsis due to Escherichia coli [E. coli] (4) Acute metabolic encephalopathy Current Visit: No Status: Acute History Interval history: The patient is a 57-year-old female with hypertension, neurofibromatosis, hepatitis C, COPD, nicotine dependence presented to the emergency room on 04/18/18 with complaints of abdominal pain going on for [address] scan obtained in the emergency room revealed a ruptured appendix with associated intra-abdominal abscess. General surgery was consulted and the patient underwent an emergent exploratory laparotomy with evacuation of pelvic abscess. She was noted to have a gangrenous, perforated appendix eroding including into the small bowel. As per the op note, the abscess could not be drained as the entire abscess and inflammatory process had trapped the small bowel, which was mobilized and she underwent an ileocolic anastomosis. The patient went back to the OR on 04/25/18 for drain dislodgment. Patient had surgical culture which grew Ecoli and ester, completed treatment. CT abdomen: 05/18/18- Still showed minimal drainage, per surgery. Patient underwent follow-up repeat CT of abd & pelvis with PO contrast done 05/25/18 showed no acute change. At that time, patient was started on clear liquid but continue to abdominal pain and high drainage suspicious for non healing perforation. Urology was consulted for possible entro-vesico fistula due to the color of the urine, cystogram was normal. Dr. Shelton had discussed with surgeon at [facility] for poss transfer. Dr. Shelton to call Dr. Malik, Surgeon No new issues overnight Hospitalist Physical - Constitutional Vitals: Temp Pulse Resp BP Pulse Ox 98.5 F 100 H 18 138/54 96 06/15/18 07:00 06/15/18 08:01 06/15/18 08:01 06/15/18 07:00 06/15/18 07:50 General appearance: Present: no acute distress, well-nourished - EENT Eyes: Present: PERRL, EOM intact ENT: hearing intact, clear oral mucosa, dentition normal - Neck Neck: Present: supple, normal ROM - Respiratory Respiratory effort: normal Respiratory: bilateral: CTA - Cardiovascular Rhythm: regular Heart Sounds: Present: S1 & S2. Absent: gallop, rub - Extremities Extremities: no ischemia, No edema, Full ROM - Abdominal General gastrointestinal: soft, non-tender, non-distended, normal bowel sounds - Integumentary Integumentary: Present: clear, warm, dry - Neurologic Neurologic: CNII-XII intact, moves all extremities Results - Labs CBC & Chem 7: 06/10/18 05:48 06/15/18 04:14 Labs: Laboratory Last Values WBC 4.3 K/mm3 (4.5-11.0) L 06/10/18 05:48 RBC 3.48 M/mm3 (3.65-5.03) L 06/10/18 05:48 Hgb 8.9 gm/dl (10.1-14.3) L 06/10/18 05:48 Hct 27.3 % (30.3-42.9) L 06/10/18 05:48 MCV 79 fl (79-97) 06/10/18 05:48 MCH 26 pg (28-32) L 06/10/18 05:48 MCHC 33 % (30-34) 06/10/18 05:48 RDW 16.7 % (13.2-15.2) H 06/10/18 05:48 Plt Count 150 K/mm3 (140-440) 06/10/18 05:48 Lymph % (Auto) 19.9 % (13.4-35.0) 06/10/18 05:48 Mckinley % (Auto) 7.5 % (0.0-7.3) H 06/10/18 05:48 Eos % (Auto) 0.6 % (0.0-4.3) 06/10/18 05:48 Baso % (Auto) 0.5 % (0.0-1.8) 06/10/18 05:48 Lymph # 0.9 K/mm3 (1.2-5.4) L 06/10/18 05:48 Mckinley # 0.3 K/mm3 (0.0-0.8) 06/10/18 05:48 Eos # 0.0 K/mm3 (0.0-0.4) 06/10/18 05:48 Baso # 0.0 K/mm3 (0.0-0.1) 06/10/18 05:48 Add Manual Diff Complete 04/30/18 05:41 Total Counted 100 04/30/18 05:41 Seg Neutrophils % 71.5 % (40.0-70.0) H 06/10/18 05:48 Seg Neuts % (Manual) 88.0 % (40.0-70.0) H 04/30/18 05:41 Band Neutrophils % 1.0 % 04/30/18 05:41 Lymphocytes % (Manual) 8.0 % (13.4-35.0) L 04/30/18 05:41 Reactive Lymphs % (Man) 0 % 04/30/18 05:41 Monocytes % (Manual) 3.0 % (0.0-7.3) 04/30/18 05:41 Eosinophils % (Manual) 0 % (0.0-4.3) 04/30/18 05:41 Basophils % (Manual) 0 % (0.0-1.8) 04/30/18 05:41 Metamyelocytes % 0 % 04/30/18 05:41 Myelocytes % 0 % 04/30/18 05:41 Promyelocytes % 0 % 04/30/18 05:41 Blast Cells % 0 % 04/30/18 05:41 Nucleated RBC % Not Reportable 04/30/18 05:41 Seg Neutrophils # 3.1 K/mm3 (1.8-7.7) 06/10/18 05:48 Seg Neutrophils # Man 7.7 K/mm3 (1.8-7.7) 04/30/18 05:41 Band Neutrophils # 0.1 K/mm3 04/30/18 05:41 Lymphocytes # (Manual) 0.7 K/mm3 (1.2-5.4) L 04/30/18 05:41 Abs React Lymphs (Man) 0.0 K/mm3 04/30/18 05:41 Monocytes # (Manual) 0.3 K/mm3 (0.0-0.8) 04/30/18 05:41 Eosinophils # (Manual) 0.0 K/mm3 (0.0-0.4) 04/30/18 05:41 Basophils # (Manual) 0.0 K/mm3 (0.0-0.1) 04/30/18 05:41 Metamyelocytes # 0.0 K/mm3 04/30/18 05:41 Myelocytes # 0.0 K/mm3 04/30/18 05:41 Promyelocytes # 0.0 K/mm3 04/30/18 05:41 Blast Cells # 0.0 K/mm3 04/30/18 05:41 WBC Morphology Not Reportable 04/30/18 05:41 Hypersegmented Neuts Not Reportable 04/30/18 05:41 Hyposegmented Neuts Not Reportable 04/30/18 05:41 Hypogranular Neuts Not Reportable 04/30/18 05:41 Smudge Cells Not Reportable 04/30/18 05:41 Toxic Granulation Not Reportable 04/30/18 05:41 Toxic Vacuolation Not Reportable 04/30/18 05:41 Dohle Bodies Not Reportable 04/30/18 05:41 Pelger-Huet Anomaly Not Reportable 04/30/18 05:41 Nicole Rods Not Reportable 04/30/18 05:41 Platelet Estimate Appears normal 04/30/18 05:41 Clumped Platelets Not Reportable 04/30/18 05:41 Plt Clumps, EDTA Not Reportable 04/30/18 05:41 Large Platelets Not Reportable 04/30/18 05:41 Giant Platelets Not Reportable 04/30/18 05:41 Platelet Satelliting Not Reportable 04/30/18 05:41 Plt Morphology Comment Not Reportable 04/30/18 05:41 RBC Morphology Not Reportable 04/30/18 05:41 Dimorphic RBCs Not Reportable 04/30/18 05:41 Polychromasia Not Reportable 04/30/18 05:41 Hypochromasia 1+ 04/30/18 05:41 Poikilocytosis Not Reportable 04/30/18 05:41 Anisocytosis 1+ 04/30/18 05:41 Microcytosis Not Reportable 04/30/18 05:41 Macrocytosis Not Reportable 04/30/18 05:41 Spherocytes Not Reportable 04/30/18 05:41 Pappenheimer Bodies Not Reportable 04/30/18 05:41 Sickle Cells Not Reportable 04/30/18 05:41 Target Cells Not Reportable 04/30/18 05:41 Tear Drop Cells Not Reportable 04/30/18 05:41 Ovalocytes Few 04/30/18 05:41 Stomatocytes Few 04/29/18 05:18 Helmet Cells Not Reportable 04/30/18 05:41 Spann-[place] Bodies Not Reportable 04/30/18 05:41 Theodore Rings Not Reportable 04/30/18 05:41 Philip Cells Not Reportable 04/30/18 05:41 Bite Cells Not Reportable 04/30/18 05:41 Crenated Cell Not Reportable 04/30/18 05:41 Elliptocytes Not Reportable 04/30/18 05:41 Acanthocytes (Spur) Not Reportable 04/30/18 05:41 Rouleaux Not Reportable 04/30/18 05:41 Hemoglobin C Crystals Not Reportable 04/30/18 05:41 Schistocytes Not Reportable 04/30/18 05:41 Malaria parasites Not Reportable 04/30/18 05:41 Hung Bodies Not Reportable 04/30/18 05:41 Hem Pathologist Commnt No 04/30/18 05:41 PT 15.3 Sec. (12.2-14.9) H 04/22/18 05:19 INR 1.17 (0.87-1.13) H 04/22/18 05:19 APTT 29.4 Sec. (24.2-36.6) 04/19/18 05:19 POC ABG pH 7.367 (7.35-7.45) 04/19/18 00:19 POC ABG pCO2 36.8 (35-45) 04/19/18 00:19 POC ABG pO2 84 (80-105) 04/19/18 00:19 POC ABG HCO3 21.1 04/19/18 00:19 POC ABG Total CO2 22 04/19/18 00:19 POC ABG O2 Sat 96 04/19/18 00:19 POC ABG Base Excess -4 04/19/18 00:19 VBG pH 7.439 (7.320-7.420) H 04/18/18 14:30 FiO2 32 % 04/19/18 00:19 Sodium 141 mmol/L (137-145) 06/15/18 04:14 Potassium 4.3 mmol/L (3.6-5.0) 06/15/18 04:14 Chloride 105.5 mmol/L (98-107) 06/15/18 04:14 Carbon Dioxide 28 mmol/L (22-30) 06/15/18 04:14 Anion Gap 12 mmol/L 06/15/18 04:14 BUN 13 mg/dL (7-17) 06/15/18 04:14 Creatinine 0.3 mg/dL (0.7-1.2) L 06/15/18 04:14 Estimated GFR > 60 ml/min 06/15/18 04:14 BUN/Creatinine Ratio 43 % 06/15/18 04:14 Glucose 119 mg/dL (65-100) H 06/15/18 04:14 POC Glucose 105 (70-105) 06/15/18 06:18 Lactic Acid 1.20 mmol/L (0.7-2.0) 05/19/18 10:27 Calcium 8.4 mg/dL (8.4-10.2) 06/15/18 04:14 Phosphorus 3.30 mg/dL (2.5-4.5) D 04/08/19 04:14 Magnesium 2.00 mg/dL (1.7-2.3) 06/15/18 04:14 Total Bilirubin 0.30 mg/dL (0.1-1.2) 06/15/18 04:14 AST 74 units/L (5-40) H 06/15/18 04:14 ALT 68 units/L (7-56) H 06/15/18 04:14 Alkaline Phosphatase 128 units/L (35-129) 06/15/18 04:14 Total Protein 5.4 g/dL (6.3-8.2) L 06/15/18 04:14 Albumin 2.6 g/dL (3.9-5) L 06/15/18 04:14 Albumin/Globulin Ratio 0.9 % 06/15/18 04:14 Prealbumin 0.057 g/L (0.200-0.400) L 06/15/18 04:14 Triglycerides 63 mg/dL (2-149) 06/15/18 04:14 Urine Color Yellow (Yellow) 04/20/18 13:35 Urine Turbidity Clear (Clear) 04/20/18 13:35 Urine pH 5.0 (5.0-7.0) 04/20/18 13:35 Ur Specific Mott 1.011 (1.003-1.030) 04/20/18 13:35 Urine Protein <15 mg/dl mg/dL (Negative) 04/20/18 13:35 Urine Glucose (UA) Neg mg/dL (Negative) 04/20/18 13:35 Urine Ketones 20 mg/dL (Negative) 04/20/18 13:35 Urine Blood Sm (Negative) 04/20/18 13:35 Urine Nitrite Neg (Negative) 04/20/18 13:35 Urine Bilirubin Neg (Negative) 04/20/18 13:35 Urine Urobilinogen 2.0 mg/dL (<2.0) 04/20/18 13:35 Ur Leukocyte Esterase Tr (Negative) 04/20/18 13:35 Urine WBC (Auto) 2.0 /HPF (0.0-6.0) 04/20/18 13:35 Urine RBC (Auto) 1.0 /HPF (0.0-6.0) 04/20/18 13:35 U Epithel Cells (Auto) 2.0 /HPF (0-13.0) 04/18/18 16:45 Urine Bacteria (Auto) 2+ /HPF (Negative) 04/18/18 16:45 Urine Mucus Few /HPF 04/20/18 13:35 Blood Type O POSITIVE 04/19/18 13:05 Antibody Screen Negative 04/19/18 13:05 Crossmatch See Detail 04/19/18 13:05 Active Medications - Current Medications Current Medications: Generic Name Dose Route Start Last Admin Trade Name Freq PRN Reason Stop Dose Admin Acetaminophen 650 mg 05/20/18 12:12 05/20/18 12:41 Tylenol MN 650 mg Q4H PRN Administration Fever >101 Acetaminophen/Hydrocodone Bitart 1 each 06/06/18 11:51 06/15/18 03:01 [place] 5/325 PO 1 each Q4H PRN Administration Pain, Moderate (4-6) Alprazolam 0.25 mg 06/05/18 14:11 06/15/18 05:25 Xanax PO 0.25 mg Q8H PRN Administration Anxiety Arformoterol Tartrate 15 mcg 05/16/18 20:00 06/15/18 07:52 Brovana Nebu IH 15 mcg Q12HRT DUSTIN Administration Benzocaine/Menthol 1 each 04/20/18 12:51 Cepacol X Strength MM Q2HR PRN Sore Throat Budesonide 0.5 mg 05/16/18 20:00 06/15/18 07:52 Pulmicort IH 0.5 mg Q12HRT DUSTIN Administration Fentanyl 25 mcg 05/17/18 11:00 06/13/18 11:12 Duragesic TD 25 mcg Q3D DUSTIN Administration Gabapentin 800 mg 05/02/18 20:00 06/14/18 19:43 Neurontin PO 800 mg TID DUSTIN Administration Hydralazine HCl 10 mg 04/21/18 11:45 05/07/18 05:50 Apresoline IV 10 mg Q4HR PRN Administration SBP >160 Amino Acids/Electrolytes/Dextrose 1,800 mls @ 0 mls/hr 06/14/18 20:00 06/14/18 20:12 Tpn Adult IV 06/15/18 19:59 165 mls/hr DAILY@2000 DUSTIN Administration Protocol As Directed Loperamide HCl 2 mg 05/17/18 14:46 05/17/18 17:11 Imodium PO 2 mg Q2H PRN Administration Diarrhea Metoprolol Tartrate 12.5 mg 05/13/18 10:00 06/14/18 21:50 Lopressor PO 12.5 mg BID DUSTIN Administration Mirtazapine 15 mg 05/09/18 22:00 06/14/18 21:49 Remeron PO 15 mg QHS DUSTIN Administration Ondansetron HCl 4 mg 06/14/18 07:07 06/15/18 05:41 Zofran Odt PO 4 mg Q4H PRN Administration Nausea Nutrition/Malnutrition Assess - Dietary Evaluation Nutrition/Malnutrition Findings: Nutrition Notes Start: 04/24/18 09:13 Freq: Status: Active Protocol: Document 06/14/18 11:08 MARCO (Rec: 06/14/18 11:12 MARCO [id number]) Nutrition Notes Initial or Follow up Reassessment Other Pertinent Diagnosis Perforated appendix s/p exp lap, Hep C Current Diet 12hr cyclic TPN Labs/Tests K 5.1 CO2 - 32 Pertinent Medications Reviewed Height 5 ft 1 in Weight 42.5 kg [place] Body Weight (kg) 47.72 BMI 17.6 Subjective/Other Information Day 49 TPN. Percent of energy/protein needs met: 100% energy and pro Burn Absent Trauma Absent #2 Nutrition Diagnosis Increased nutrient needs ( specify in comment below) Diagnosis Progress(for reassessment Continues documentation) #1 Nutrition Diagnosis Inadequate oral intake Diagnosis Progress(for reassessment Continues documentation) Is patient on ventilator? No Is Patient Ambulatory and/or Out of Bed Yes REE-([facility]-ambulatory/OOB) [ 1238.094 [id number]] Kcal/Kg value to use for calculation 40 Approximate Energy Requirements Using 1700 kcal/Kg Additional Notes Pro needs 1.25-1.5g/k-64g /day Fluid needs 1ml/kcal Nutrition Intervention Nutrition Support: Continue 12hr cyclic CPN: 75mL /hr x 1hr, 165mL/hr x 10hr, 75mL/hr x 1hr: MVI, 20mEq K, 10mmol Phos, 90%/10% chloride/ acetate. Osmolality: 1742. Kcal 1,315 Protein (gm) 95 Carbohydrates (gm) 275 Fat (gm) 0 Fluid (mL) 1,800 Fiber (gm) 0 Goal #1 CPN to continue to meet 100% energy and pro needs Goal #2 Wt gain/maintenance Follow-Up By: 06/15/18 Additional Comments Labs in am: CMP, Mag, Phos, TG , PAB Check wt
[2018-06-15] MEDS: NEURONTIN PO SCH ×3 (10:50→20:45)
[2018-06-15] MEDS: LOPRESSOR PO SCH ×2 (10:50→21:10)
[2018-06-15] MEDS ORDERED: INTRALIPID 20% 250 ML IV SCH (20:00)
[2018-06-15] MEDS ORDERED: TPN ADULT 1,800 ML IV SCH (20:00)
[2018-06-15] MEDS: REMERON PO SCH (21:11)
[2018-06-16] MEDS: ZOFRAN ODT PO PRN ×2 (04:55→12:55)
[2018-06-16] MEDS: NORCO 5/325 PO PRN ×4 (04:55→20:29)
[2018-06-16] MEDS: NEURONTIN PO SCH ×4 (08:07→20:26)
[2018-06-16] MEDS: PULMICORT IH SCH ×2 (09:05→21:16)
[2018-06-16] MEDS: BROVANA NEBU IH SCH ×2 (09:05→21:16)
[2018-06-16] MEDS: DURAGESIC TD SCH ×2 (09:13→13:31)
[2018-06-16] MEDS: LOPRESSOR PO SCH ×2 (09:18→21:41)
[2018-06-16 09:34] LABS: BUN/Creatinine Ratio 33; Blood Urea Nitrogen 10 mg/dL (7-17); Calcium 8.2 mg/dL (8.4-10.2); Hemolysis Index 0
[2018-06-16] MEDS: XANAX PO PRN (12:54)
--- NOTE | 2018-06-16 12:59 | Progress Note ---
Assessment and Plan Thought pt had been transferred yesterday but come to find out that still waiting for a bed at [facility] Pt laying comfortably in bed. Some light brown liquid drainage noted from drain Abd soft, non tender stable awaiting transfer for further eval and possible re-exploration Selected Entries 06/16/18 06/16/18 09:22 11:45 Temperature 98.0 F Pulse Rate [ 92 H Throughout] Blood Pressure 138/61 [Left] Laboratory Tests 06/16/18 08:39 Sodium 141 Potassium 3.9 Chloride 105.0 BUN 10 Creatinine 0.3 L Objective Vital Signs - 12hr 06/16/18 06/16/18 06/16/18 03:46 07:20 09:05 Temperature 98.1 F 98.4 F Pulse Rate 82 89 Pulse Rate [ 93 H Throughout] Respiratory 18 18 Rate Respiratory 18 Rate [ Throughout] Blood Pressure 119/63 Blood Pressure 151/66 [Left] O2 Sat by Pulse 95 100 Oximetry 06/16/18 06/16/18 06/16/18 09:18 09:22 11:45 Temperature 98.0 F Pulse Rate 86 Pulse Rate [ 92 H Throughout] Respiratory 18 Rate Respiratory 18 Rate [ Throughout] Blood Pressure 151/66 Blood Pressure 138/61 [Left] O2 Sat by Pulse 94 Oximetry - Labs 06/10/18 05:48 06/16/18 08:39 Diabetes panel 06/16/18 Range/Units 08:39 Sodium 141 (137-145) mmol/L Potassium 3.9 (3.6-5.0) mmol/L Chloride 105.0 (98-107) mmol/L Carbon Dioxide 26 (22-30) mmol/L BUN 10 (7-17) mg/dL Creatinine 0.3 L (0.7-1.2) mg/dL Glucose 112 H (65-100) mg/dL Calcium 8.2 L (8.4-10.2) mg/dL Calcium panel 06/16/18 Range/Units 08:39 Calcium 8.2 L (8.4-10.2) mg/dL Phosphorus 2.90 (2.5-4.5) mg/dL Pituitary panel 06/16/18 Range/Units 08:39 Sodium 141 (137-145) mmol/L Potassium 3.9 (3.6-5.0) mmol/L Chloride 105.0 (98-107) mmol/L Carbon Dioxide 26 (22-30) mmol/L BUN 10 (7-17) mg/dL Creatinine 0.3 L (0.7-1.2) mg/dL Glucose 112 H (65-100) mg/dL Calcium 8.2 L (8.4-10.2) mg/dL Adrenal panel 06/16/18 Range/Units 08:39 Sodium 141 (137-145) mmol/L Potassium 3.9 (3.6-5.0) mmol/L Chloride 105.0 (98-107) mmol/L Carbon Dioxide 26 (22-30) mmol/L BUN 10 (7-17) mg/dL Creatinine 0.3 L (0.7-1.2) mg/dL Glucose 112 H (65-100) mg/dL Calcium 8.2 L (8.4-10.2) mg/dL
--- NOTE | 2018-06-16 13:00 | Progress Note ---
Assessment and Plan Assessment and plan: The patient is a 57-year-old female with hypertension, neurofibromatosis, hepatitis C, COPD, nicotine dependence presented to the emergency room on 04/18/18 with complaints of abdominal pain going on for [address] scan obtained in the emergency room revealed a ruptured appendix with associated intra-abdominal abscess. General surgery was consulted and the patient underwent an emergent exploratory laparotomy with evacuation of pelvic abscess. She was noted to have a gangrenous, perforated appendix eroding including into the small bowel. As per the op note, the abscess could not be drained as the entire abscess and inflammatory process had trapped the small bowel, which was mobilized and she underwent an ileocolic anastomosis. The patient went back to the OR on 04/25/18 for drain dislodgment. Sepsis Etiology secondary to gangrenous and perforated appendix causing intra- abdominal/pelvic abscess. Patient is status post exploratory laparotomy with appendectomy and evacuation of pelvic abscess. Now off antibiotics and noted ID signed off. No fever off antibiotics. Perforated appendix s/p exploratory lap Cont. TPN, started on clear liquid diet which increased drainage, suspicion for non healing perforation s/p repeat CT abdomen/pelvis on 05/25/18 GS discussed pt with Dr. Malik and we are awaiting bed availability at [facility]. Dr. Malik willing to receive pt in direct transfer as long as pt agrees and understands that surgery may not be immediate. Pt will need further studies and w/u to determine when and if re-exploration will be needed. Chronic hep C. Untreated. Outpatient follow-up. Accel Hypertension. continue Cozaar to 100mg. Cont. Hydralazine prn. Diarrhea: s/p lmodium prn x 1 Tachycardia: secondary to dehydration and deconditioning. COPD. Compensated. nebs as needed Neurofibromatosis: outpt follow up Tobacco abuse. Patient counseled on smoking cessation FOR 15 MINS, Patient verbalized understanding and will think about it. Severe protein calorie malnutrition; sander setter consulted. continue with TPN, npo now Hypotension-resolved BP stable Disposition As above. History Interval history: Patient was seen and evaluated this morning. Didn't have any complaints. Hospitalist Physical - Physical exam Narrative exam: Not in cardiopulmonary distress. The patient appeared well nourished and normally developed. Vital signs as documented. Head exam is unremarkable. No scleral icterus . Neck is without jugular venous distension, thyromegaly, or carotid bruits. Lungs are clear to auscultation. Cardiac exam reveals regular rate and Rhythm. Abdominal exam reveals draining tube in the right lower quadrant. Extremities are nonedematous and both femoral and pedal pulses are normal. [employer]: Alert and oriented 3. No focal weakness. - Constitutional Vitals: Temp Pulse Resp BP Pulse Ox 98.0 F 86 18 138/61 94 06/16/18 11:45 06/16/18 11:45 06/16/18 11:45 06/16/18 11:45 06/16/18 11:45 General appearance: Present: no acute distress, well-nourished Results - Labs CBC & Chem 7: 06/10/18 05:48 06/16/18 08:39 Labs: Laboratory Last Values WBC 4.3 K/mm3 (4.5-11.0) L 06/10/18 05:48 RBC 3.48 M/mm3 (3.65-5.03) L 06/10/18 05:48 Hgb 8.9 gm/dl (10.1-14.3) L 06/10/18 05:48 Hct 27.3 % (30.3-42.9) L 06/10/18 05:48 MCV 79 fl (79-97) 06/10/18 05:48 MCH 26 pg (28-32) L 06/10/18 05:48 MCHC 33 % (30-34) 06/10/18 05:48 RDW 16.7 % (13.2-15.2) H 06/10/18 05:48 Plt Count 150 K/mm3 (140-440) 06/10/18 05:48 Lymph % (Auto) 19.9 % (13.4-35.0) 06/10/18 05:48 Wallace % (Auto) 7.5 % (0.0-7.3) H 06/10/18 05:48 Eos % (Auto) 0.6 % (0.0-4.3) 06/10/18 05:48 Baso % (Auto) 0.5 % (0.0-1.8) 06/10/18 05:48 Lymph # 0.9 K/mm3 (1.2-5.4) L 06/10/18 05:48 Wallace # 0.3 K/mm3 (0.0-0.8) 06/10/18 05:48 Eos # 0.0 K/mm3 (0.0-0.4) 06/10/18 05:48 Baso # 0.0 K/mm3 (0.0-0.1) 06/10/18 05:48 Add Manual Diff Complete 04/30/18 05:41 Total Counted 100 04/30/18 05:41 Seg Neutrophils % 71.5 % (40.0-70.0) H 06/10/18 05:48 Seg Neuts % (Manual) 88.0 % (40.0-70.0) H 04/30/18 05:41 Band Neutrophils % 1.0 % 04/30/18 05:41 Lymphocytes % (Manual) 8.0 % (13.4-35.0) L 04/30/18 05:41 Reactive Lymphs % (Man) 0 % 04/30/18 05:41 Monocytes % (Manual) 3.0 % (0.0-7.3) 04/30/18 05:41 Eosinophils % (Manual) 0 % (0.0-4.3) 04/30/18 05:41 Basophils % (Manual) 0 % (0.0-1.8) 04/30/18 05:41 Metamyelocytes % 0 % 04/30/18 05:41 Myelocytes % 0 % 04/30/18 05:41 Promyelocytes % 0 % 04/30/18 05:41 Blast Cells % 0 % 04/30/18 05:41 Nucleated RBC % Not Reportable 04/30/18 05:41 Seg Neutrophils # 3.1 K/mm3 (1.8-7.7) 06/10/18 05:48 Seg Neutrophils # Man 7.7 K/mm3 (1.8-7.7) 04/30/18 05:41 Band Neutrophils # 0.1 K/mm3 04/30/18 05:41 Lymphocytes # (Manual) 0.7 K/mm3 (1.2-5.4) L 04/30/18 05:41 Abs React Lymphs (Man) 0.0 K/mm3 04/30/18 05:41 Monocytes # (Manual) 0.3 K/mm3 (0.0-0.8) 04/30/18 05:41 Eosinophils # (Manual) 0.0 K/mm3 (0.0-0.4) 04/30/18 05:41 Basophils # (Manual) 0.0 K/mm3 (0.0-0.1) 04/30/18 05:41 Metamyelocytes # 0.0 K/mm3 04/30/18 05:41 Myelocytes # 0.0 K/mm3 04/30/18 05:41 Promyelocytes # 0.0 K/mm3 04/30/18 05:41 Blast Cells # 0.0 K/mm3 04/30/18 05:41 WBC Morphology Not Reportable 04/30/18 05:41 Hypersegmented Neuts Not Reportable 04/30/18 05:41 Hyposegmented Neuts Not Reportable 04/30/18 05:41 Hypogranular Neuts Not Reportable 04/30/18 05:41 Smudge Cells Not Reportable 04/30/18 05:41 Toxic Granulation Not Reportable 04/30/18 05:41 Toxic Vacuolation Not Reportable 04/30/18 05:41 Dohle Bodies Not Reportable 04/30/18 05:41 Pelger-Huet Anomaly Not Reportable 04/30/18 05:41 Nicole Rods Not Reportable 04/30/18 05:41 Platelet Estimate Appears normal 04/30/18 05:41 Clumped Platelets Not Reportable 04/30/18 05:41 Plt Clumps, EDTA Not Reportable 04/30/18 05:41 Large Platelets Not Reportable 04/30/18 05:41 Giant Platelets Not Reportable 04/30/18 05:41 Platelet Satelliting Not Reportable 04/30/18 05:41 Plt Morphology Comment Not Reportable 04/30/18 05:41 RBC Morphology Not Reportable 04/30/18 05:41 Dimorphic RBCs Not Reportable 04/30/18 05:41 Polychromasia Not Reportable 04/30/18 05:41 Hypochromasia 1+ 04/30/18 05:41 Poikilocytosis Not Reportable 04/30/18 05:41 Anisocytosis 1+ 04/30/18 05:41 Microcytosis Not Reportable 04/30/18 05:41 Macrocytosis Not Reportable 04/30/18 05:41 Spherocytes Not Reportable 04/30/18 05:41 Pappenheimer Bodies Not Reportable 04/30/18 05:41 Sickle Cells Not Reportable 04/30/18 05:41 Target Cells Not Reportable 04/30/18 05:41 Tear Drop Cells Not Reportable 04/30/18 05:41 Ovalocytes Few 04/30/18 05:41 Stomatocytes Few 04/29/18 05:18 Helmet Cells Not Reportable 04/30/18 05:41 [place] Bodies Not Reportable 04/30/18 05:41 [place] Rings Not Reportable 04/30/18 05:41 Philip Cells Not Reportable 04/30/18 05:41 Bite Cells Not Reportable 04/30/18 05:41 Crenated Cell Not Reportable 04/30/18 05:41 Elliptocytes Not Reportable 04/30/18 05:41 Acanthocytes (Spur) Not Reportable 04/30/18 05:41 Rouleaux Not Reportable 04/30/18 05:41 Hemoglobin C Crystals Not Reportable 04/30/18 05:41 Schistocytes Not Reportable 04/30/18 05:41 Malaria parasites Not Reportable 04/30/18 05:41 Hung Bodies Not Reportable 04/30/18 05:41 Hem Pathologist Commnt No 04/30/18 05:41 PT 15.3 Sec. (12.2-14.9) H 04/22/18 05:19 INR 1.17 (0.87-1.13) H 04/22/18 05:19 APTT 29.4 Sec. (24.2-36.6) 04/19/18 05:19 POC ABG pH 7.367 (7.35-7.45) 04/19/18 00:19 POC ABG pCO2 36.8 (35-45) 04/19/18 00:19 POC ABG pO2 84 (80-105) 04/19/18 00:19 POC ABG HCO3 21.1 04/19/18 00:19 POC ABG Total CO2 22 04/19/18 00:19 POC ABG O2 Sat 96 04/19/18 00:19 POC ABG Base Excess -4 04/19/18 00:19 VBG pH 7.439 (7.320-7.420) H 04/18/18 14:30 FiO2 32 % 02/10/19 00:19 Sodium 141 mmol/L (137-145) 06/16/18 08:39 Potassium 3.9 mmol/L (3.6-5.0) 06/16/18 08:39 Chloride 105.0 mmol/L (98-107) 06/16/18 08:39 Carbon Dioxide 26 mmol/L (22-30) 06/16/18 08:39 Anion Gap 14 mmol/L 06/16/18 08:39 BUN 10 mg/dL (7-17) 06/16/18 08:39 Creatinine 0.3 mg/dL (0.7-1.2) L 06/16/18 08:39 Estimated GFR > 60 ml/min 06/16/18 08:39 BUN/Creatinine Ratio 33 % 06/16/18 08:39 Glucose 112 mg/dL (65-100) H 06/16/18 08:39 POC Glucose 100 (70-105) 06/16/18 11:09 Lactic Acid 1.20 mmol/L (0.7-2.0) 05/19/18 10:27 Calcium 8.2 mg/dL (8.4-10.2) L 06/16/18 08:39 Phosphorus 2.90 mg/dL (2.5-4.5) 06/16/18 08:39 Magnesium 1.80 mg/dL (1.7-2.3) 06/16/18 08:39 Total Bilirubin 0.30 mg/dL (0.1-1.2) 06/15/18 04:14 AST 74 units/L (5-40) H 06/15/18 04:14 ALT 68 units/L (7-56) H 06/15/18 04:14 Alkaline Phosphatase 128 units/L (35-129) 06/15/18 04:14 Total Protein 5.4 g/dL (6.3-8.2) L 06/15/18 04:14 Albumin 2.6 g/dL (3.9-5) L 06/15/18 04:14 Albumin/Globulin Ratio 0.9 % 06/15/18 04:14 Prealbumin 0.057 g/L (0.200-0.400) L 06/15/18 04:14 Triglycerides 63 mg/dL (2-149) 06/15/18 04:14 Urine Color Yellow (Yellow) 04/20/18 13:35 Urine Turbidity Clear (Clear) 04/20/18 13:35 Urine pH 5.0 (5.0-7.0) 04/20/18 13:35 Ur Specific [place] 1.011 (1.003-1.030) 04/20/18 13:35 Urine Protein <15 mg/dl mg/dL (Negative) 04/20/18 13:35 Urine Glucose (UA) Neg mg/dL (Negative) 04/20/18 13:35 Urine Ketones 20 mg/dL (Negative) 04/20/18 13:35 Urine Blood Sm (Negative) 04/20/18 13:35 Urine Nitrite Neg (Negative) 04/20/18 13:35 Urine Bilirubin Neg (Negative) 04/20/18 13:35 Urine Urobilinogen 2.0 mg/dL (<2.0) 04/20/18 13:35 Ur Leukocyte Esterase Tr (Negative) 04/20/18 13:35 Urine WBC (Auto) 2.0 /HPF (0.0-6.0) 04/20/18 13:35 Urine RBC (Auto) 1.0 /HPF (0.0-6.0) 04/20/18 13:35 U Epithel Cells (Auto) 2.0 /HPF (0-13.0) 04/18/18 16:45 Urine Bacteria (Auto) 2+ /HPF (Negative) 04/18/18 16:45 Urine Mucus Few /HPF 04/20/18 13:35 Blood Type O POSITIVE 04/19/18 13:05 Antibody Screen Negative 04/19/18 13:05 Crossmatch See Detail 04/19/18 13:05 Active Medications - Current Medications Current Medications: Generic Name Dose Route Start Last Admin Trade Name Freq PRN Reason Stop Dose Admin Acetaminophen 650 mg 05/20/18 12:12 05/20/18 12:41 Tylenol LA 650 mg Q4H PRN Administration Fever >101 Acetaminophen/Hydrocodone Bitart 1 each 06/06/18 11:51 06/16/18 12:54 [place] 5/325 PO 1 each Q4H PRN Administration Pain, Moderate (4-6) Alprazolam 0.25 mg 06/05/18 14:11 06/16/18 12:54 Xanax PO 0.25 mg Q8H PRN Administration Anxiety Arformoterol Tartrate 15 mcg 05/16/18 20:00 06/16/18 09:05 Brovana Nebu IH 15 mcg Q12HRT DUSTIN Administration Benzocaine/Menthol 1 each 04/20/18 12:51 Cepacol X Strength MM Q2HR PRN Sore Throat Budesonide 0.5 mg 05/16/18 20:00 06/16/18 09:05 Pulmicort IH 0.5 mg Q12HRT DUSTIN Administration Fentanyl 25 mcg 05/17/18 11:00 06/16/18 09:13 Duragesic TD 25 mcg Q3D DUSTIN Administration Gabapentin 800 mg 05/02/18 20:00 06/16/18 12:54 Neurontin PO 800 mg TID DUSTIN Administration Hydralazine HCl 10 mg 04/21/18 11:45 05/07/18 05:50 Apresoline IV 10 mg Q4HR PRN Administration SBP >160 Amino Acids/Electrolytes/Dextrose 1,800 mls @ 0 mls/hr 06/15/18 20:00 06/15/18 20:45 Tpn Adult IV 06/16/18 19:59 75 mls/hr DAILY@1999 DUSTIN Administration Protocol As Directed Amino Acids/Electrolytes/Dextrose 1,800 mls @ 0 mls/hr 06/16/18 20:00 Tpn Adult IV 06/17/18 08:01 DAILY@1999 [facility] Protocol As Directed Loperamide HCl 2 mg 05/17/18 14:46 05/17/18 17:11 Imodium PO 2 mg Q2H PRN Administration Diarrhea Metoprolol Tartrate 12.5 mg 05/13/18 10:00 06/16/18 09:18 Lopressor PO 12.5 mg BID DUSTIN Administration Mirtazapine 15 mg 05/09/18 22:00 06/15/18 21:11 Remeron PO 15 mg QHS DUSTIN Administration Ondansetron HCl 4 mg 06/14/18 07:07 06/16/18 12:55 Zofran Odt PO 4 mg Q4H PRN Administration Nausea Nutrition/Malnutrition Assess - Dietary Evaluation Nutrition/Malnutrition Findings: Nutrition Notes Start: 04/24/18 09:13 Freq: Status: Active Protocol: Document 06/16/18 11:27 MARCO (Rec: 06/16/18 11:29 NHALL [email or web address]) Nutrition Notes Initial or Follow up Reassessment Other Pertinent Diagnosis Perforated appendix s/p exp lap, Hep C Current Diet 12hr cyclic TPN Labs/Tests Reviewed Pertinent Medications Reviewed Height 5 ft 1 in Weight 42.6 kg [place] Body Weight (kg) 47.72 BMI 17.7 Subjective/Other Information Day 51 TPN. Still awaiting transfer to [facility]; currently no beds available. Percent of energy/protein needs met: 100% energy and pro Burn Absent Trauma Absent #2 Nutrition Diagnosis Increased nutrient needs ( specify in comment below) Diagnosis Progress(for reassessment Continues documentation) #1 Nutrition Diagnosis Inadequate oral intake Diagnosis Progress(for reassessment Continues documentation) Is patient on ventilator? No Is Patient Ambulatory and/or Out of Bed Yes REE[facility]) [ 1239.394 [id number]] Kcal/Kg value to use for calculation 40 Approximate Energy Requirements Using 1704 kcal/Kg Calculation Used for Recommendations Kcal/kg Additional Notes Pro needs 1.25-1.5g/k-64g /day Fluid needs 1ml/kcal Nutrition Intervention Nutrition Support: Continue 12hr cyclic CPN: 75mL /hr x 1hr, 165mL/hr x 10hr, 75mL/hr x 1hr: MVI, MTE. Osmolality: 1742. Kcal 1,315 Protein (gm) 95 Carbohydrates (gm) 275 Fat (gm) 0 Fluid (mL) 1,800 Fiber (gm) 0 Goal #1 CPN to continue to meet 100% energy and pro needs Goal #2 Wt gain/maintenance Follow-Up By: 06/17/18 Additional Comments Labs in am: BMP, Mg, Phos
[2018-06-16] MEDS ORDERED: TPN ADULT 1,800 ML IV SCH (20:00)
[2018-06-16] MEDS: REMERON PO SCH (21:41)
[2018-06-17] MEDS: NORCO 5/325 PO PRN ×4 (01:08→21:06)
[2018-06-17] MEDS: ZOFRAN ODT PO PRN ×3 (06:43→15:39)
[2018-06-17 08:32] LABS: BUN/Creatinine Ratio 30; Blood Urea Nitrogen 9 mg/dL (7-17); Calcium 8.2 mg/dL (8.4-10.2); Hemolysis Index 12
[2018-06-17] MEDS: BROVANA NEBU IH SCH ×2 (08:36→19:23)
[2018-06-17] MEDS: PULMICORT IH SCH ×2 (08:36→19:23)
[2018-06-17] MEDS: NEURONTIN PO SCH ×3 (09:15→21:07)
[2018-06-17] MEDS: LOPRESSOR PO SCH ×2 (09:16→22:01)
[2018-06-17] MEDS ORDERED: MORPHINE ONE (10:52)
[2018-06-17] MEDS ORDERED: XYLOCAINE 1% 20 mL ONE (10:53)
[2018-06-17] MEDS ORDERED: XYLOCAINE 1%/ EPI 1:100,000 INFILTRATI ONE (10:57)
[2018-06-17] MEDS: XANAX PO PRN ×2 (10:59→21:59)
--- NOTE | 2018-06-17 11:29 | Progress Note ---
Assessment and Plan Pt status quo. no compl. Abd soft. some drain sutures and eroded thru skin and loosened. drain re-sutured to skin with multiple new stitches surgically stable awaiting transfer arrangements to be completed Objective Vital Signs - 12hr 06/17/18 06/17/18 06/17/18 00:35 05:12 07:33 Temperature 99.0 F 98.2 F 97.9 F Pulse Rate 73 78 79 Pulse Rate [ Throughout] Respiratory 18 18 18 Rate Respiratory Rate [ Throughout] Blood Pressure 114/64 128/58 133/61 O2 Sat by Pulse 95 96 94 Oximetry 06/17/18 06/17/18 08:36 08:49 Temperature Pulse Rate Pulse Rate [ 76 79 Throughout] Respiratory Rate Respiratory 18 18 Rate [ Throughout] Blood Pressure O2 Sat by Pulse Oximetry - Labs 06/10/18 05:48 06/17/18 07:23 Diabetes panel 06/17/18 Range/Units 07:23 Sodium 138 (137-145) mmol/L Potassium 3.7 (3.6-5.0) mmol/L Chloride 103.5 (98-107) mmol/L Carbon Dioxide 26 (22-30) mmol/L BUN 9 (7-17) mg/dL Creatinine 0.3 L (0.7-1.2) mg/dL Glucose 116 H (65-100) mg/dL Calcium 8.2 L (8.4-10.2) mg/dL Calcium panel 06/17/18 Range/Units 07:23 Calcium 8.2 L (8.4-10.2) mg/dL Phosphorus 3.10 (2.5-4.5) mg/dL Pituitary panel 06/17/18 Range/Units 07:23 Sodium 138 (137-145) mmol/L Potassium 3.7 (3.6-5.0) mmol/L Chloride 103.5 (98-107) mmol/L Carbon Dioxide 26 (22-30) mmol/L BUN 9 (7-17) mg/dL Creatinine 0.3 L (0.7-1.2) mg/dL Glucose 116 H (65-100) mg/dL Calcium 8.2 L (8.4-10.2) mg/dL Adrenal panel 06/17/18 Range/Units 07:23 Sodium 138 (137-145) mmol/L Potassium 3.7 (3.6-5.0) mmol/L Chloride 103.5 (98-107) mmol/L Carbon Dioxide 26 (22-30) mmol/L BUN 9 (7-17) mg/dL Creatinine 0.3 L (0.7-1.2) mg/dL Glucose 116 H (65-100) mg/dL Calcium 8.2 L (8.4-10.2) mg/dL
[2018-06-17] MEDS ORDERED: MORPHINE IV ONE (12:00)
--- NOTE | 2018-06-17 14:44 | Progress Note ---
Assessment and Plan Assessment and plan: The patient is a 57-year-old female with hypertension, neurofibromatosis, hepatitis C, COPD, nicotine dependence presented to the emergency room on 04/18/18 with complaints of abdominal pain going on for [address] scan obtained in the emergency room revealed a ruptured appendix with associated intra-abdominal abscess. General surgery was consulted and the patient underwent an emergent exploratory laparotomy with evacuation of pelvic abscess. She was noted to have a gangrenous, perforated appendix eroding including into the small bowel. As per the op note, the abscess could not be drained as the entire abscess and inflammatory process had trapped the small bowel, which was mobilized and she underwent an ileocolic anastomosis. The patient went back to the OR on 04/25/18 for drain dislodgment. Sepsis Etiology secondary to gangrenous and perforated appendix causing intra- abdominal/pelvic abscess. Patient is status post exploratory laparotomy with appendectomy and evacuation of pelvic abscess. Now off antibiotics and noted ID signed off. No fever off antibiotics. Perforated appendix s/p exploratory lap Cont. TPN, started on clear liquid diet which increased drainage, suspicion for non healing perforation s/p repeat CT abdomen/pelvis on 05/25/18 GS discussed pt with Dr. Malik and we are awaiting bed availability at [facility]. Dr. Malik willing to receive pt in direct transfer as long as pt agrees and understands that surgery may not be immediate. Pt will need further studies and w/u to determine when and if re-exploration will be needed. Chronic hep C. Untreated. Outpatient follow-up. Accel Hypertension. continue Cozaar to 100mg. Cont. Hydralazine prn. Diarrhea: s/p lmodium prn x 1 Tachycardia: secondary to dehydration and deconditioning. COPD. Compensated. nebs as needed Neurofibromatosis: outpt follow up Tobacco abuse. Patient counseled on smoking cessation FOR 15 MINS, Patient verbalized understanding and will think about it. 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 continue with TPN, npo now Hypotension-resolved BP stable Disposition Pending transfer to Transfer to another facility. CM and surgery working on the transfer. History Interval history: Patient was seen and evaluated this morning. Patient was not happy waiting too much to be transferred. Hospitalist Physical - Physical exam Narrative exam: Not in cardiopulmonary distress. The patient appeared well nourished and normally developed. Vital signs as documented. Head exam is unremarkable. No scleral icterus . Neck is without jugular venous distension, thyromegaly, or carotid bruits. Lungs are clear to auscultation. Cardiac exam reveals regular rate and Rhythm. Abdominal exam reveals draining tube in the right lower quadrant. Extremities are nonedematous and both femoral and pedal pulses are normal. 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 No focal weakness. - Constitutional Vitals: Temp Pulse Resp BP Pulse Ox 97.4 F L 85 18 142/68 96 06/17/18 12:32 06/17/18 12:32 06/17/18 12:32 06/17/18 12:32 06/17/18 12:32 General appearance: Present: no acute distress, well-nourished Results - Labs CBC & Chem 7: 06/10/18 05:48 06/17/18 07:23 Labs: Laboratory Last Values WBC 4.3 K/mm3 (4.5-11.0) L 06/10/18 05:48 RBC 3.48 M/mm3 (3.65-5.03) L 06/10/18 05:48 Hgb 8.9 gm/dl (10.1-14.3) L 06/10/18 05:48 Hct 27.3 % (30.3-42.9) L 06/10/18 05:48 MCV 79 fl (79-97) 06/10/18 05:48 MCH 26 pg (28-32) L 06/10/18 05:48 MCHC 33 % (30-34) 06/10/18 05:48 RDW 16.7 % (13.2-15.2) H 06/10/18 05:48 Plt Count 150 K/mm3 (140-440) 06/10/18 05:48 Lymph % (Auto) 19.9 % (13.4-35.0) 06/10/18 05:48 [place] % (Auto) 7.5 % (0.0-7.3) H 06/10/18 05:48 Eos % (Auto) 0.6 % (0.0-4.3) 06/10/18 05:48 Baso % (Auto) 0.5 % (0.0-1.8) 06/10/18 05:48 Lymph # 0.9 K/mm3 (1.2-5.4) L 06/10/18 05:48 [place] # 0.3 K/mm3 (0.0-0.8) 06/10/18 05:48 Eos # 0.0 K/mm3 (0.0-0.4) 06/10/18 05:48 Baso # 0.0 K/mm3 (0.0-0.1) 06/10/18 05:48 Add Manual Diff Complete 04/30/18 05:41 Total Counted 100 04/30/18 05:41 Seg Neutrophils % 71.5 % (40.0-70.0) H 06/10/18 05:48 Seg Neuts % (Manual) 88.0 % (40.0-70.0) H 04/30/18 05:41 Band Neutrophils % 1.0 % 04/30/18 05:41 Lymphocytes % (Manual) 8.0 % (13.4-35.0) L 04/30/18 05:41 Reactive Lymphs % (Man) 0 % 04/30/18 05:41 Monocytes % (Manual) 3.0 % (0.0-7.3) 04/30/18 05:41 Eosinophils % (Manual) 0 % (0.0-4.3) 04/30/18 05:41 Basophils % (Manual) 0 % (0.0-1.8) 04/30/18 05:41 Metamyelocytes % 0 % 04/30/18 05:41 Myelocytes % 0 % 04/30/18 05:41 Promyelocytes % 0 % 04/30/18 05:41 Blast Cells % 0 % 04/30/18 05:41 Nucleated RBC % Not Reportable 04/30/18 05:41 Seg Neutrophils # 3.1 K/mm3 (1.8-7.7) 06/10/18 05:48 Seg Neutrophils # Man 7.7 K/mm3 (1.8-7.7) 04/30/18 05:41 Band Neutrophils # 0.1 K/mm3 04/30/18 05:41 Lymphocytes # (Manual) 0.7 K/mm3 (1.2-5.4) L 04/30/18 05:41 Abs React Lymphs (Man) 0.0 K/mm3 04/30/18 05:41 Monocytes # (Manual) 0.3 K/mm3 (0.0-0.8) 04/30/18 05:41 Eosinophils # (Manual) 0.0 K/mm3 (0.0-0.4) 04/30/18 05:41 Basophils # (Manual) 0.0 K/mm3 (0.0-0.1) 04/30/18 05:41 Metamyelocytes # 0.0 K/mm3 04/30/18 05:41 Myelocytes # 0.0 K/mm3 04/30/18 05:41 Promyelocytes # 0.0 K/mm3 04/30/18 05:41 Blast Cells # 0.0 K/mm3 04/30/18 05:41 WBC Morphology Not Reportable 04/30/18 05:41 Hypersegmented Neuts Not Reportable 04/30/18 05:41 Hyposegmented Neuts Not Reportable 04/30/18 05:41 Hypogranular Neuts Not Reportable 04/30/18 05:41 Smudge Cells Not Reportable 04/30/18 05:41 Toxic Granulation Not Reportable 04/30/18 05:41 Toxic Vacuolation Not Reportable 04/30/18 05:41 Dohle Bodies Not Reportable 04/30/18 05:41 Pelger-Huet Anomaly Not Reportable 04/30/18 05:41 Nicole Rods Not Reportable 04/30/18 05:41 Platelet Estimate Appears normal 04/30/18 05:41 Clumped Platelets Not Reportable 04/30/18 05:41 Plt Clumps, EDTA Not Reportable 04/30/18 05:41 Large Platelets Not Reportable 04/30/18 05:41 Giant Platelets Not Reportable 04/30/18 05:41 Platelet Satelliting Not Reportable 04/30/18 05:41 Plt Morphology Comment Not Reportable 04/30/18 05:41 RBC Morphology Not Reportable 04/30/18 05:41 Dimorphic RBCs Not Reportable 04/30/18 05:41 Polychromasia Not Reportable 04/30/18 05:41 Hypochromasia 1+ 04/30/18 05:41 Poikilocytosis Not Reportable 04/30/18 05:41 Anisocytosis 1+ 04/30/18 05:41 Microcytosis Not Reportable 04/30/18 05:41 Macrocytosis Not Reportable 04/30/18 05:41 Spherocytes Not Reportable 04/30/18 05:41 Pappenheimer Bodies Not Reportable 04/30/18 05:41 Sickle Cells Not Reportable 04/30/18 05:41 Target Cells Not Reportable 04/30/18 05:41 Tear Drop Cells Not Reportable 04/30/18 05:41 Ovalocytes Few 04/30/18 05:41 Stomatocytes Few 04/29/18 05:18 Helmet Cells Not Reportable 04/30/18 05:41 [place] Bodies Not Reportable 04/30/18 05:41 [place] Rings Not Reportable 04/30/18 05:41 [place] Cells Not Reportable 04/30/18 05:41 Bite Cells Not Reportable 04/30/18 05:41 Crenated Cell Not Reportable 04/30/18 05:41 Elliptocytes Not Reportable 04/30/18 05:41 Acanthocytes (Spur) Not Reportable 04/30/18 05:41 Rouleaux Not Reportable 04/30/18 05:41 Hemoglobin C Crystals Not Reportable 04/30/18 05:41 Schistocytes Not Reportable 04/30/18 05:41 Malaria parasites Not Reportable 04/30/18 05:41 Hung Bodies Not Reportable 04/30/18 05:41 Hem Pathologist Commnt No 04/30/18 05:41 PT 15.3 Sec. (12.2-14.9) H 04/22/18 05:19 INR 1.17 (0.87-1.13) H 04/22/18 05:19 APTT 29.4 Sec. (24.2-36.6) 04/19/18 05:19 POC ABG pH 7.367 (7.35-7.45) 04/19/18 00:19 POC ABG pCO2 36.8 (35-45) 04/19/18 00:19 POC ABG pO2 84 (80-105) 04/19/18 00:19 POC ABG HCO3 21.1 04/19/18 00:19 POC ABG Total CO2 22 04/19/18 00:19 POC ABG O2 Sat 96 04/19/18 00:19 POC ABG Base Excess -4 04/19/18 00:19 VBG pH 7.439 (7.320-7.420) H 04/18/18 14:30 FiO2 32 % 04/19/18 00:19 Sodium 138 mmol/L (137-145) 06/17/18 07:23 Potassium 3.7 mmol/L (3.6-5.0) 06/17/18 07:23 Chloride 103.5 mmol/L (98-107) 06/17/18 07:23 Carbon Dioxide 26 mmol/L (22-30) 06/17/18 07:23 Anion Gap 12 mmol/L 06/17/18 07:23 BUN 9 mg/dL (7-17) 06/17/18 07:23 Creatinine 0.3 mg/dL (0.7-1.2) L 06/17/18 07:23 Estimated GFR > 60 ml/min 06/17/18 07:23 BUN/Creatinine Ratio 30 % 06/17/18 07:23 Glucose 116 mg/dL (65-100) H 06/17/18 07:23 POC Glucose 83 (70-105) 06/17/18 12:39 Lactic Acid 1.20 mmol/L (0.7-2.0) 05/19/18 10:27 Calcium 8.2 mg/dL (8.4-10.2) L 06/17/18 07:23 Phosphorus 3.10 mg/dL (2.5-4.5) 06/17/18 07:23 Magnesium 1.70 mg/dL (1.7-2.3) 06/17/18 07:23 Total Bilirubin 0.30 mg/dL (0.1-1.2) 06/15/18 04:14 AST 74 units/L (5-40) H 06/15/18 04:14 ALT 68 units/L (7-56) H 06/15/18 04:14 Alkaline Phosphatase 128 units/L (35-129) 06/15/18 04:14 Total Protein 5.4 g/dL (6.3-8.2) L 06/15/18 04:14 Albumin 2.6 g/dL (3.9-5) L 06/15/18 04:14 Albumin/Globulin Ratio 0.9 % 06/15/18 04:14 Prealbumin 0.057 g/L (0.200-0.400) L 06/15/18 04:14 Triglycerides 63 mg/dL (2-149) 06/15/18 04:14 Urine Color Yellow (Yellow) 04/20/18 13:35 Urine Turbidity Clear (Clear) 04/20/18 13:35 Urine pH 5.0 (5.0-7.0) 04/20/18 13:35 Ur Specific [place] 1.011 (1.003-1.030) 04/20/18 13:35 Urine Protein <15 mg/dl mg/dL (Negative) 04/20/18 13:35 Urine Glucose (UA) Neg mg/dL (Negative) 04/20/18 13:35 Urine Ketones 20 mg/dL (Negative) 04/20/18 13:35 Urine Blood Sm (Negative) 04/20/18 13:35 Urine Nitrite Neg (Negative) 04/20/18 13:35 Urine Bilirubin Neg (Negative) 04/20/18 13:35 Urine Urobilinogen 2.0 mg/dL (<2.0) 04/20/18 13:35 Ur Leukocyte Esterase Tr (Negative) 04/20/18 13:35 Urine WBC (Auto) 2.0 /HPF (0.0-6.0) 04/20/18 13:35 Urine RBC (Auto) 1.0 /HPF (0.0-6.0) 04/20/18 13:35 U Epithel Cells (Auto) 2.0 /HPF (0-13.0) 04/18/18 16:45 Urine Bacteria (Auto) 2+ /HPF (Negative) 04/18/18 16:45 Urine Mucus Few /HPF 04/20/18 13:35 Blood Type O POSITIVE 04/19/18 13:05 Antibody Screen Negative 04/19/18 13:05 Crossmatch See Detail 04/19/18 13:05 Active Medications - Current Medications Current Medications: Generic Name Dose Route Start Last Admin Trade Name Freq PRN Reason Stop Dose Admin Acetaminophen 650 mg 05/20/18 12:12 05/20/18 12:41 Tylenol [place] 650 mg Q4H PRN Administration Fever >101 Acetaminophen/Hydrocodone Bitart 1 each 06/06/18 11:51 06/17/18 06:38 [place] 5/325 PO 1 each Q4H PRN Administration Pain, Moderate (4-6) Alprazolam 0.25 mg 06/05/18 14:11 06/17/18 10:59 Xanax PO 0.25 mg Q8H PRN Administration Anxiety Arformoterol Tartrate 15 mcg 05/16/18 20:00 06/17/18 08:36 Brovana Nebu IH 15 mcg Q12HRT DUSTIN Administration Benzocaine/Menthol 1 each 04/20/18 12:51 Cepacol X Strength MM Q2HR PRN Sore Throat Budesonide 0.5 mg 05/16/18 20:00 06/17/18 08:36 Pulmicort IH 0.5 mg Q12HRT DUSTIN Administration Gabapentin 800 mg 05/02/18 20:00 06/17/18 13:46 Neurontin PO 800 mg TID DUSTIN Administration Hydralazine HCl 10 mg 04/21/18 11:45 05/07/18 05:50 Apresoline IV 10 mg Q4HR PRN Administration SBP >160 Amino Acids/Electrolytes/Dextrose 1,800 mls @ 0 mls/hr 06/17/18 20:00 Tpn Adult IV 06/18/18 08:01 DAILY@1999 [facility] Protocol As Directed Fat Emulsion Intravenous 250 mls @ 21 mls/hr 06/17/18 20:00 Intralipid 20% IV 06/18/18 08:00 DAILY@1999 [facility] Loperamide HCl 2 mg 05/17/18 14:46 05/17/18 17:11 Imodium PO 2 mg Q2H PRN Administration Diarrhea Metoprolol Tartrate 12.5 mg 05/13/18 10:00 06/17/18 09:16 Lopressor PO 12.5 mg BID [facility] Administration Mirtazapine 15 mg 05/09/18 22:00 06/16/18 21:41 Remeron PO 15 mg QHS DUSTIN Administration Ondansetron HCl 4 mg 06/14/18 07:07 06/17/18 10:59 Zofran Odt PO 4 mg Q4H PRN Administration Nausea Nutrition/Malnutrition Assess - Dietary Evaluation Nutrition/Malnutrition Findings: Nutrition Notes Start: 04/24/18 09:13 Freq: Status: Active Protocol: Document 06/17/18 11:04 EB (Rec: 06/17/18 11:07 EB [id number]) Co-Sign 06/17/18 11:04 LP Nutrition Notes Initial or Follow up Reassessment Other Pertinent Diagnosis Perforated appendix s/p exp lap, Hep C Current Diet 12hr cyclic TPN Labs/Tests Reviewed Pertinent Medications Reviewed Height 5 ft 1 in Weight 42.6 kg [place] Body Weight (kg) 47.72 BMI 17.7 Subjective/Other Information Day 52 TPN. Still awaiting transfer to [facility]; currently no beds available. Percent of energy/protein needs met: 100% energy and pro Burn Absent Trauma Absent #2 Nutrition Diagnosis Increased nutrient needs ( specify in comment below) Diagnosis Progress(for reassessment Continues documentation) #1 Diagnosis Progress(for reassessment Continues documentation) Is patient on ventilator? No Is Patient Ambulatory and/or Out of Bed Yes REE-([place]-St. Jeor-ambulatory/OOB) [ 1239.394 NUTR.[id number]] Kcal/Kg value to use for calculation 40 Approximate Energy Requirements Using 1704 kcal/Kg Calculation Used for Recommendations Kcal/kg Additional Notes Pro needs 1.25-1.5g/k-64g /day Fluid needs 1ml/kcal Nutrition Intervention Nutrition Support: Continue 12hr cyclic CPN: 75mL /hr x 1hr, 165mL/hr x 10hr, 75mL/hr x 1hr: , 50 g lipids, MVI. Osmolality: 1742. Kcal 1,815 Protein (gm) 95 Carbohydrates (gm) 275 Fat (gm) 50 Fluid (mL) 2,050 Goal #1 CPN to continue to meet 100% energy and pro needs Goal #2 Wt gain/maintenance Follow-Up By: 06/18/18 Additional Comments Labs in am: BMP, Mg, Phos
[2018-06-17] MEDS ORDERED: TPN ADULT 1,800 ML IV SCH (20:00)
[2018-06-17] MEDS ORDERED: INTRALIPID 20% 250 ML IV SCH (20:00)
[2018-06-17 20:18] VITALS: BP 142/75
[2018-06-17] MEDS: REMERON PO SCH (21:59)
--- NOTE | 2018-06-20 15:04 | Discharge Summary ---
Providers - Providers Date of Admission: 04/18/18 18:30 Attending physician: MG SERRANO MD 04/18/18 16:28 Consult to Physician [CONS] Urgent Comment: DR GODWIN NOTIFIED 1819 Consulting Provider: ANA PAULA GODWIN Physician Instructions: Reason For Exam: abd pain sepsis 04/18/18 17:11 Consult to Physician [CONS] Urgent Comment: DR JOSEPH NOTIFIED 1814 Consulting Provider: JOSE JOSEPH Physician Instructions: Reason For Exam: abd pain sepsis 04/18/18 23:21 Consult to Wound/ET Nurse [CONS] Routine Reason For Exam: begin wd care Friday04/18/18 23:29 Consult to Physician [CONS] Routine Comment: Consulting Provider: BRIANNA ROMAN Physician Instructions: Reason For Exam: sepsis. intra abd abscess 04/18/18 23:31 Consult to Physician [CONS] Routine Comment: Consulting Provider: GLO BUTT Physician Instructions: Reason For Exam: sepsis. medical management 04/18/18 23:44 Consult to Physician [CONS] Routine Comment: Consulting Provider: ROHINI CARROLL Physician Instructions: Reason For Exam: sepsis 04/21/18 08:25 Physical Therapy Evaluation and Treat [CONS] Routine Comment: Reason For Exam: ambulate down halls with assistance 04/25/18 08:00 Consult to Dietitian/Nutrition [CONS] Routine Physician Instructions: Reason For Exam: Reason for Consult: Write/Manage TPN/PPN 04/25/18 18:47 Consult to Physician [CONS] Routine Comment: Consulting Provider: CHENG CHAWLA Physician Instructions: Reason For Exam: picc line insertion 04/26/18 10:29 Consult to Wound/ET Nurse [CONS] Routine Reason For Exam: restart wd care on 04/26/18 20:27 Consult to PICC Line RN [CONS] Routine Reason For Exam: iv access, if unsuccessful may need IR PICC Type Line:: PICC 04/29/18 13:11 Physical Therapy Evaluation and Treat [CONS] Routine Comment: Reason For Exam: deconditioning 05/08/18 11:52 Consult to Mental Health [CONS] Routine Reason For Exam: depression Place consult to:: Notified:: [id number] Phone number called:: [phone] Time called:: 11:53 05/20/18 12:13 Consult to Physician [CONS] Routine Comment: CALL WAS MADE BY DR. GODWIN - COMPLETED Consulting Provider: LINH HASKINS Physician Instructions: Reason For Exam: r/o enteric-vesico fistula Primary care physician: HERMINIA FISHMAN Hospitalization Reason for admission: perforated appendicitis, with abscess collection Condition: Fair Pertinent studies: CT abdomen Procedures: Laparotomy Hospital course: The patient is a 57-year-old female with hypertension, neurofibromatosis, hepatitis C, COPD, nicotine dependence presented to the emergency room on 04/18/18 with complaints of abdominal pain going on for [address] scan obtained in the emergency room revealed a ruptured appendix with associated intra-abdominal abscess. General surgery was consulted and the patient underwent an emergent exploratory laparotomy with evacuation of pelvic abscess. She was noted to have a gangrenous, perforated appendix eroding including into the small bowel. As per the op note, the abscess could not be drained as the entire abscess and inflammatory process had trapped the small bowel, which was mobilized and she underwent an ileocolic anastomosis. The patient went back to the OR on 04/25/18 for drain dislodgment. Sepsis Etiology secondary to gangrenous and perforated appendix causing intra- abdominal/pelvic abscess. Patient is status post exploratory laparotomy with appendectomy and evacuation of pelvic abscess. Now off antibiotics and noted ID signed off. No fever off antibiotics. Perforated appendix s/p exploratory lap Cont. TPN, started on clear liquid diet which increased drainage, suspicion for non healing perforation s/p repeat CT abdomen/pelvis on 05/25/18 GS discussed pt with Dr. Malik and we are awaiting bed availability at [facility]. Dr. Malik willing to receive pt in direct transfer as long as pt agrees and understands that surgery may not be immediate. Pt will need further studies and w/u to determine when and if re-exploration will be needed. Chronic hep C. Untreated. Outpatient follow-up. Accel Hypertension. continue Cozaar to 100mg. Cont. Hydralazine prn. Diarrhea: s/p lmodium prn x 1 Tachycardia: secondary to dehydration and deconditioning. COPD. Compensated. nebs as needed Neurofibromatosis: outpt follow up Tobacco abuse. Patient counseled on smoking cessation FOR 15 MINS, Patient verbalized understanding and will think about it. Severe protein calorie malnutrition; block sealer consulted. continue with TPN, npo now Hypotension-resolved BP stable Patient transferred to [facility] Disposition: [id number]/[id number] SHRT-TRM GEN HOSP IP Time spent for discharge: 32 minutes - Discharge Diagnoses (1) Acute metabolic encephalopathy Status: Acute (2) Appendicitis with perforation Status: Acute (3) Appendicitis with peritoneal abscess Status: Acute (4) Marijuana abuse Status: Acute (5) Mental status alteration Status: Acute Qualifiers: Altered mental status type: disorientation Qualified Code(s): R41.0 - Disorientation, unspecified (6) Sepsis Status: Acute Qualifiers: Sepsis type: Escherichia coli Qualified Code(s): A41.51 - Sepsis due to Escherichia coli [E. coli] Core Measure Documentation - Palliative Care Palliative Care/ Comfort Measures: Not Applicable - Core Measures Any of the following diagnoses?: none Exam - Physical Exam Narrative exam: Not in cardiopulmonary distress. The patient appeared well nourished and normally developed. Vital signs as documented. Head exam is unremarkable. No scleral icterus . Neck is without jugular venous distension, thyromegaly, or carotid bruits. Lungs are clear to auscultation. Cardiac exam reveals regular rate and Rhythm. Abdominal exam reveals draining tube in the right lower quadrant. Extremities are nonedematous and both femoral and pedal pulses are normal. 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 No focal weakness. - Constitutional Vitals: Temp Pulse Resp BP Pulse Ox 97.4 F L 84 18 142/75 96 06/17/18 20:16 06/17/18 20:16 06/17/18 20:16 06/17/18 20:16 06/17/18 20:16 Plan Follow up with: HERMINIA FISHMAN MD [Primary Care Provider] - 3-5 Days
== END 2018-06-17 22:20 | disposition short-term general hospital (02) | DRG 853 ==
LOC: ED 13:50 → MERGE 18:30 → CC1 18:30 → 3B-SURG 04-20 22:04 → IMCU 04-25 13:18 → 3B-SURG 04-29 16:31
PROVIDERS: ADMIT Internal Medicine; ATTEND Internal Medicine
PROC: 0DBH0ZZ Excision of Cecum, Open Approach (ICD-10-PCS; 2018-04-18)
PROC: 0W9G0ZZ Drainage of Peritoneal Cavity, Open Approach (ICD-10-PCS; 2018-04-18)
PROC: 0DTJ0ZZ Resection of Appendix, Open Approach (ICD-10-PCS; 2018-04-18)
PROC: 4A033R1 Measurement of Arterial Saturation, Peripheral, Percutaneous Approach (ICD-10-PCS; 2018-04-19)
PROC: 30233K1 Transfusion of Nonautologous Frozen Plasma into Peripheral Vein, Percutaneous Approach (ICD-10-PCS; 2018-04-19)
PROC: 30233N1 Transfusion of Nonautologous Red Blood Cells into Peripheral Vein, Percutaneous Approach (ICD-10-PCS; 2018-04-21)
PROC: 0W9G00Z Drainage of Peritoneal Cavity with Drainage Device, Open Approach (ICD-10-PCS; principal; 2018-04-25)
PROC: 02HV33Z Insertion of Infusion Device into Superior Vena Cava, Percutaneous Approach (ICD-10-PCS; 2018-04-27)
DX: A41.51 Sepsis due to Escherichia coli [E. coli] (principal); K35.33 Acute appendicitis with perforation, localized peritonitis, and gangrene, with abscess; E43 Unspecified severe protein-calorie malnutrition; G93.41 Metabolic encephalopathy; E87.1 Hypo-osmolality and hyponatremia; T85.628A Displacement of other specified internal prosthetic devices, implants and grafts, initial encounter; Z68.1 Body mass index [BMI] 19.9 or less, adult; N32.1 Vesicointestinal fistula; G89.29 Other chronic pain; R19.7 Diarrhea, unspecified; F12.10 Cannabis abuse, uncomplicated; E87.6 Hypokalemia; Q85.00 Neurofibromatosis, unspecified; B18.2 Chronic viral hepatitis C; J44.9 Chronic obstructive pulmonary disease, unspecified; I10 Essential (primary) hypertension; F17.200 Nicotine dependence, unspecified, uncomplicated; Z82.49 Family history of ischemic heart disease and other diseases of the circulatory system; Z88.8 Allergy status to other drugs, medicaments and biological substances; Z79.899 Other long term (current) drug therapy; Z79.2 Long term (current) use of antibiotics; Z90.710 Acquired absence of both cervix and uterus; Y83.8 Other surgical procedures as the cause of abnormal reaction of the patient, or of later complication, without mention of misadventure at the time of the procedure; Y92.098 Other place in other non-institutional residence as the place of occurrence of the external cause; Z71.6 Tobacco abuse counseling
CPT/HCPCS: 36415; 36600; 51600; 71045; 71046; 74018; 74176; 74177; 74430; 80048; 80053; 81001; 82140; 82803; 82805; 82962; 83735; 84100; 84134; 84478; 85007; 85025; 85027; 85610; 85730; 86850; 86900; 86901; 86920; 87040; 87075; 87076; 87086; 87116; 87186; 88304; 88307; 88312; 93005; 93010; 94640; 94668; 94760; G0378; J0330; J0360; J0692; J0696; J1170; J1450; J2250; J2270; J2354; J2405; J2543; J2704; J2710; J3010; J3430; J3475; J3480; J7030; J7040; J7050; J7120; P9016; P9017; P9047; Q0162; Q9958; Q9967; Q9968

== ENCOUNTER 2018-07-16 13:22 | Emergency (ER) | payer MEDICARE ==
--- NOTE | 2018-07-16 13:35 | Emergency Department Report ---
<IRENA FLAHERTY III - Last Filed: 07/16/18 16:56> ED Abdominal Pain HPI - General Chief Complaint: Abdominal Pain Stated Complaint: ABD PAIN Time Seen by Provider: 07/16/18 13:25 Source: EMS Mode of arrival: Stretcher Limitations: No Limitations - History of Present Illness Initial Comments: Patient is a 58-year-old female that presents to emergency room with abdominal pain and nausea vomiting 7 days. Patient states she was just released from another hospital 7 days ago and she's had pain ever since. Patient states she is unable to hold anything down. Patient denies blood in her stool. Patient denies blood in her vomitus. Patient states she has a colostomy bag since her last operation. Patient states she had a appendectomy here which had a complication. Patient states she's had multiple abdominal surgeries within the past month. Severity scale (0 -10): 10 - Related Data Home Medications Medication Instructions Recorded Confirmed Last Taken Citalopram Hydrobromide 40 mg PO QDAY 07/31/17 04/19/18 04/15/18 [Citalopram HBr] Gabapentin [Neurontin] 800 mg PO 5XD 07/31/17 04/19/18 04/15/18 Losartan 50 mg PO QDAY 07/31/17 04/19/18 04/15/18 Tizanidine HCl [Zanaflex] 2 mg PO QDAY 07/31/17 04/19/18 04/15/18 busPIRone [Buspar] 5 mg PO BID 07/31/17 04/19/18 04/15/18 Previous Rx's Medication Instructions Recorded Last Taken Type ALPRAZolam [Xanax TAB] 0.25 mg PO Q8H PRN tablet 06/10/18 Unknown Rx Acetaminophen [Acetaminophen 650 mg [place] Q4H PRN supp.rect 06/10/18 Unknown Rx SUPPOS] Arformoterol Nebu [Brovana Nebu] 15 mcg IH Q12HRT ml 06/10/18 Unknown Rx Benzocaine/Mentho [Cepacol X 1 each MM Q2HR PRN packet 06/10/18 Unknown Rx Strength] Budesonide [Pulmicort Respules] 0.5 mg IH Q12HRT nebu 06/10/18 Unknown Rx Gabapentin [Neurontin] 800 mg PO TID capsule 06/10/18 Unknown Rx HYDROcodone/APAP 5-325 [[place] 1 each PO Q4H PRN tablet 06/10/18 Unknown Rx 5-325 mg TAB] Loperamide [Imodium] 2 mg PO Q2H PRN capsule 06/10/18 Unknown Rx Metoprolol [Lopressor TAB] 12.5 mg PO BID tablet 06/10/18 Unknown Rx Mirtazapine [Remeron] 15 mg PO QHS tablet 06/10/18 Unknown Rx Ondansetron [Zofran INJ] 4 mg IV Q4H PRN vial 06/10/18 Unknown Rx fentaNYL [Duragesic] 25 mcg TD Q3D patch 06/10/18 Unknown Rx hydrALAZINE [Apresoline INJ] 10 mg IV Q4HR PRN vial 06/10/18 Unknown Rx Allergies Allergy/AdvReac Type Severity Reaction Status Date / Time NSAIDS (Non-Steroidal Allergy Unknown Verified 04/08/18 03:20 Anti-Inflamma ED Review of Systems Constitutional: denies: chills, fever Eyes: denies: eye pain, eye discharge, vision change ENT: denies: ear pain, throat pain Respiratory: denies: cough, shortness of breath, wheezing Cardiovascular: denies: chest pain, palpitations Endocrine: no symptoms reported Gastrointestinal: abdominal pain, nausea, vomiting. denies: diarrhea Genitourinary: denies: urgency, dysuria, discharge Musculoskeletal: denies: back pain, joint swelling, arthralgia Skin: denies: rash, lesions Neurological: denies: headache, weakness, paresthesias Psychiatric: denies: anxiety, depression Hematological/Lymphatic: denies: easy bleeding, easy bruising ED Past Medical Hx - Past Medical History Previous Medical History?: Yes Hx Hypertension: Yes Hx Heart Attack/AMI: Yes (EKG shows sherrell lateral [place] that was present in 2018) Hx Congestive Heart Failure: No Hx Diabetes: No Hx Deep Vein Thrombosis: No Hx Liver Disease: Yes (hep c) Hx Asthma: No Hx COPD: Yes Hx HIV: No Additional medical history: chronic back pain. Neurofibroidmytosis - Surgical History Past Surgical History?: Yes Hx Pacemaker: No Hx Internal Defibrillator: No Hx Appendectomy: Yes Additional Surgical History: Partial hyster, colostomy - Social History Smoking Status: Current Some Day Smoker - Medications Home Medications: Home Medications Medication Instructions Recorded Confirmed Last Taken Type Citalopram Hydrobromide 40 mg PO QDAY 07/31/17 04/19/18 04/15/18 History [Citalopram HBr] Gabapentin [Neurontin] 800 mg PO 5XD 07/31/17 04/19/18 04/15/18 History Losartan 50 mg PO QDAY 07/31/17 04/19/18 04/15/18 History Tizanidine HCl [Zanaflex] 2 mg PO QDAY 07/31/17 04/19/18 04/15/18 History busPIRone [Buspar] 5 mg PO BID 07/31/17 04/19/18 04/15/18 History ALPRAZolam [Xanax TAB] 0.25 mg PO Q8H PRN tablet 06/10/18 Unknown Rx Acetaminophen [Acetaminophen 650 mg [place] Q4H PRN supp.rect 06/10/18 Unknown Rx SUPPOS] Arformoterol Nebu [Brovana Nebu] 15 mcg IH Q12HRT ml 06/10/18 Unknown Rx Benzocaine/Mentho [Cepacol X 1 each MM Q2HR PRN packet 06/10/18 Unknown Rx Strength] Budesonide [Pulmicort Respules] 0.5 mg IH Q12HRT nebu 06/10/18 Unknown Rx Gabapentin [Neurontin] 800 mg PO TID capsule 06/10/18 Unknown Rx HYDROcodone/APAP 5-325 [[place] 1 each PO Q4H PRN tablet 06/10/18 Unknown Rx 5-325 mg TAB] Loperamide [Imodium] 2 mg PO Q2H PRN capsule 06/10/18 Unknown Rx Metoprolol [Lopressor TAB] 12.5 mg PO BID tablet 06/10/18 Unknown Rx Mirtazapine [Remeron] 15 mg PO QHS tablet 06/10/18 Unknown Rx Ondansetron [Zofran INJ] 4 mg IV Q4H PRN vial 06/10/18 Unknown Rx fentaNYL [Duragesic] 25 mcg TD Q3D patch 06/10/18 Unknown Rx hydrALAZINE [Apresoline INJ] 10 mg IV Q4HR PRN vial 06/10/18 Unknown Rx ED Physical Exam - General Limitations: No Limitations General appearance: alert, in no apparent distress - Head Head exam: Present: atraumatic, normocephalic - Eye Eye exam: Present: normal appearance, PERRL Pupils: Present: normal accommodation - ENT ENT exam: Present: mucous membranes dry - Neck Neck exam: Present: normal inspection - Respiratory Respiratory exam: Present: normal lung sounds bilaterally. Absent: respiratory distress, wheezes - Cardiovascular Cardiovascular Exam: Present: regular rate, normal rhythm, tachycardia. Absent: systolic murmur, diastolic murmur, rubs, gallop - GI/Abdominal GI/Abdominal exam: Present: soft, tenderness (generalized tenderness. Midline scar with manoj in place. Patient also has a right lower quadrant colostomy bag and a right upper quadrant drainage), normal bowel sounds. Absent: distended - Rectal Rectal exam: Present: deferred - Extremities Exam Extremities exam: Present: normal inspection - Back Exam Back exam: Present: normal inspection - Neurological Exam Neurological exam: Present: alert, oriented X3 - Psychiatric Psychiatric exam: Present: normal affect, normal mood - Skin Skin exam: Present: warm, dry, intact, normal color. Absent: rash ED Course - Reevaluation(s) Reevaluation #1: Still complaining of pain. Patient was given another milligram of Dilaudid. CT is pending. 07/16/18 16:02 - Consultations Consultation #1: Discussed case with Dr. Badillo. Dr. Badillo recommends transfer back to [facility] after workup was done. Dr Renny Malik is the surgeon at [facility]. 07/16/18 15:02 Consultation #2: discussed case with Dr. Renny Malik. Dr. Malik has accepted patient be transferred to [facility]. She'll we transfer via EMS. Transfer center made aware of this. 07/16/18 16:45 ED Medical Decision Making - Lab Data Result diagrams: 07/16/18 13:45 07/16/18 13:45 - Radiology Data PROCEDURE: CT ABDOMEN PELVIS W CON TECHNIQUE: Low I believe this patient already has a dictated report CT DOSE LENGTH PRODUCT: 494.8 mGy-cm. HISTORY: abd pain. COMPARISONS: CT abdomen pelvis arch 2018. FINDINGS: Abdomen: Lung bases and images of the heart are grossly unremarkable. Liver: Decreased heterogeneous attenuation may represent hepatocellular disease, fatty infiltration, or cirrhosis. No suspicious lesion. 22 cm. Spleen: 17 cm. No distinct lesions. Gallbladder: Distended with layering density which may represent stones, sludge, or vicarious excretion of contrast. Mild wall thickening. Common bile duct is mildly prominent measuring 6.2 mm. No distinct ductal stone or lesion. Pancreas, adrenals, and kidneys are grossly unremarkable. No aneurysm. No dissection. Xsym-lv-[id number] atherosclerotic disease. IVC is unremarkable. Retroaortic left renal vein. There is no periaortic or retroperitoneal adenopathy or mass. Right lower quadrant diverging ileostomy noted. Colon is diffusely collapsed which limits evaluation for wall thickening nevertheless, there appears be mild diffuse colonic wall thickening with stranding. No significant distention identified. Diffuse wall thickening and fold thickening of the small bowel loops without air-fluid levels, distention, or obstruction identified. Stranding of the mesentery noted. Trace fluid in the colic gutters. No free air. Midline incisional scar noted. Left upper quadrant percutaneous drainage catheter crosses the midline and the tip is in the right pelvis. Posterior to the tip and deeper into the pelvis is a 1.2 x 3.4 cm low- attenuation fluid collection with subtle rim enhancement on series 2:133 which may recommend a residual abscess. Pelvis: Uterus: Limited images are unremarkable. Bladder: Unremarkable. There is no pelvic mass or adenopathy. Inguinal regions are unremarkable. Bones: No suspicious osseous lesions on this limited examination of the skeleton. Metastatic disease better evaluated with bone scan. Degenerative changes are in the spine. IMPRESSION: * Small abscess in the right deep pelvis just distal to the percutaneous drain. * Hepatosplenomegaly. Similar to prior. * Fatty liver. No distinct lesions. * Diffuse large and small bowel wall thickening which may represent edema and/or inflammation. Infectious colitis or enterocolitis is not excluded. No obstruction. No perforation. * Nonspecific trace fluid in the abdomen and mesenteric stranding may be related. * Mildly distended gallbladder with mild wall thickening. Layering density may represent stones, sludge, or vicarious excretion of contrast. Mildly prominent common bile duct. Please correlate with gallbladder ultrasound for cholecystitis if clinically indicated. - Medical Decision Making Patient is a 58-year-old female is mentioned with abdominal pain and nausea vomiting. Patient's intractable abdominal pain and nausea vomiting. Patient is of multiple surgeries. Patient slid his surgeries done and will start A stone. Patient will be transferred back to her surgeon. Patient has been accepted by Dr. Malik at [facility]. Patient will be transferred via ground EMS. Patient has CT done which showed a pelvic abscess. Patient has multiple other findings. Patient's labs are unremarkable. Patient given IV fluids and multiple pain medications and antiemetics. - Differential Diagnosis abd pain, n.v Critical Care Time: Yes Critical Care Time: 65 minutes ED Disposition Clinical Impression: Dehydration, Hyponatremia, Intractable abdominal pain, Pelvic abscess Abdominal pain Qualifiers: Abdominal location: generalized Qualified Code(s): R10.84 - Generalized abdominal pain Intractable nausea and vomiting Qualifiers: Vomiting type: unspecified Qualified Code(s): R11.2 - Nausea with vomiting, unspecified Disposition: DC/TX-70 ANOTHER TYPE HLTHCARE Is pt being admited?: No Does the pt Need Aspirin: No Condition: Critical Referrals: DAVID AMATO MD [Primary Care Provider] - 3-5 Days Time of Disposition: 17:02 <YVETTE FLETCHER - Last Filed: 07/17/18 13:48> ED Review of Systems ROS: Stated complaint: ABD PAIN Other details as noted in HPI ED Course Vital Signs 07/16/18 07/16/18 07/16/18 13:33 16:35 18:51 Pulse Rate 110 H 97 H 92 H Respiratory 16 16 16 Rate Blood Pressure 188/95 157/80 165/86 [Right] O2 Sat by Pulse 99 97 98 Oximetry 07/16/18 07/16/18 07/17/18 19:38 21:00 00:51 Pulse Rate 84 89 94 H Respiratory 16 16 16 Rate Blood Pressure 134/70 131/79 137/84 [Right] O2 Sat by Pulse 93 94 98 Oximetry 07/17/18 07/17/18 07/17/18 02:00 03:13 05:06 Pulse Rate 84 89 82 Respiratory 16 18 14 Rate Blood Pressure 132/68 141/84 [Right] O2 Sat by Pulse 98 95 96 Oximetry 07/17/18 07/17/18 07/17/18 08:00 08:17 09:51 Pulse Rate 95 H 98 H Respiratory 15 18 15 Rate Blood Pressure 179/80 158/80 [Right] O2 Sat by Pulse 97 98 Oximetry - Reevaluation(s) Reevaluation #2: 07/17/18 08:[address] Victorina RENTERIA MD at [facility]. ED Medical Decision Making - Lab Data Result diagrams: 07/16/18 13:45 07/16/18 13:45 Critical care attestation.: If time is entered above; I have spent that time in minutes in the direct care of this critically ill patient, excluding procedure time. ED Disposition Is pt being admited?: No Does the pt Need Aspirin: No
[2018-07-16] MEDS ORDERED: NACL 0.9% 1000 ML 1,000 ML IV ONE (14:00)
[2018-07-16] MEDS ORDERED: DILAUDID IV ONE ×4 (14:00→22:02)
[2018-07-16 14:01] LABS: Basophils # (Auto) 0.1 K/mm3 (0.0-0.1); Basophils % (Auto) 0.8 % (0.0-1.8); Eosinophils % (Auto) 0.2 % (0.0-4.3); Hematocrit 36.3 % (30.3-42.9); Hemoglobin 11.8 gm/dl (10.1-14.3); Lymphocytes # (Auto) 1.5 K/mm3 (1.2-5.4); Lymphocytes % (Auto) 20.4 % (13.4-35.0); Mean Corpuscular HGB Conc 33 % (30-34); Mean Corpuscular Volume 74 fl (79-97); Monocytes # (Auto) 0.6 K/mm3 (0.0-0.8); Monocytes % (Auto) 7.5 % (0.0-7.3); Platelet Count 295 K/mm3 (140-440); Red Blood Count 4.93 M/mm3 (3.65-5.03); Red Cell Distribution Width 17.3 % (13.2-15.2)
[2018-07-16] MEDS ORDERED: ZOFRAN IV ONE ×2 (14:01→16:17)
[2018-07-16 14:21] LABS: BUN/Creatinine Ratio 27; Blood Urea Nitrogen 8 mg/dL (7-17); Calcium 9.4 mg/dL (8.4-10.2); Hemolysis Index 1
[2018-07-16 14:45] LABS: Albumin 3.9 g/dL (3.9-5); Bilirubin,Direct 0.4 mg/dL (0-0.2)
--- NOTE | 2018-07-16 16:41 | Cat Scan Report ---
PROCEDURE: CT ABDOMEN PELVIS W CON TECHNIQUE: Low I believe this patient already has a dictated report CT DOSE LENGTH PRODUCT: 494.8 mGy-cm. HISTORY: abd pain. COMPARISONS: CT abdomen pelvis arch 2018. FINDINGS: Abdomen: Lung bases and images of the heart are grossly unremarkable. Liver: Decreased heterogeneous attenuation may represent hepatocellular disease, fatty infiltration, or cirrhosis. No suspicious lesion. 22 cm. Spleen: 17 cm. No distinct lesions. Gallbladder: Distended with layering density which may represent stones, sludge, or vicarious excreti on of contrast. Mild wall thickening. Common bile duct is mildly prominent measuring 6.2 mm. No disti nct ductal stone or lesion. Pancreas, adrenals, and kidneys are grossly unremarkable. No aneurysm. No dissection. Vcdu-ej-gztqwgsp atherosclerotic disease. IVC is unremarkable. Retroaortic left renal vein. There is no periaortic or retroperitoneal adenopathy or mass. Right lower quadrant diverging ileostomy noted. Colon is diffusely collapsed which limits evaluation for wall thickening nevertheless, there appears be mild diffuse colonic wall thickening with stranding. No significant distention identified. Diffuse wall thickening and fold thickening of the small bowel loops without air-fluid levels, distention, o r obstruction identified. Stranding of the mesentery noted. Trace fluid in the colic gutters. No free air. Midline incisional scar noted. Left upper quadrant percutaneous drainage catheter crosses the midline and the tip is in the right pe lvis. Posterior to the tip and deeper into the pelvis is a 1.2 x 3.4 cm low-attenuation fluid collect ion with subtle rim enhancement on series 2:133 which may recommend a residual abscess. Pelvis: Uterus: Limited images are unremarkable. Bladder: Unremarkable. There is no pelvic mass or adenopathy. Inguinal regions are unremarkable. Bones: No suspicious osseous lesions on this limited examination of the skeleton. Metastatic disease better evaluated with bone scan. Degenerative changes are in the spine. IMPRESSION: * Small abscess in the right deep pelvis just distal to the percutaneous drain. * Hepatosplenomegaly. Similar to prior. * Fatty liver. No distinct lesions. * Diffuse large and small bowel wall thickening which may represent edema and/or inflammation. Infec tious colitis or enterocolitis is not excluded. No obstruction. No perforation. * Nonspecific trace fluid in the abdomen and mesenteric stranding may be related. * Mildly distended gallbladder with mild wall thickening. Layering density may represent stones, slu dge, or vicarious excretion of contrast. Mildly prominent common bile duct. Please correlate with gal lbladder ultrasound for cholecystitis if clinically indicated. * 07/16/2018 at 1338 PT: I, Kenton Palm MD, discussed the findings over the phone with Dr. Poe. This document is electronically signed by Kenton Palm MD., Jul 16 2018 04:39:38 PM ET
[2018-07-16] MEDS ORDERED: ZOSYN/NS 4.5GM/100ML 4.5 GM/100 ML VIAL IV ONE (16:58)
[2018-07-16 17:46] LABS: Bilirubin,Urine NEG (Negative); Blood,Urine NEG (Negative); Color,Urine Yellow (Yellow); Protein,Urine <15 mg/dL mg/dL (Negative); Urobilinogen,Urine < 2.0 mg/dL (<2.0)
[2018-07-16] MEDS ORDERED: DILAUDID ONE (22:06)
[2018-07-17] MEDS ORDERED: ZOSYN/NS 4.5GM/100ML 4.5 GM/100 ML VIAL IV ONE (02:16)
[2018-07-17] MEDS ORDERED: DILAUDID IV ONE ×2 (02:16→07:58)
[2018-07-17] MEDS ORDERED: DILAUDID ONE (02:20)
[2018-07-17 09:52] VITALS: BP 158/80
== END 2018-07-17 09:57 | disposition other institution (70) ==
LOC: ED 13:22 → MERGE 13:22 → ED 07-17 09:57
DX: E86.0 Dehydration (principal); N73.9 Female pelvic inflammatory disease, unspecified; R11.2 Nausea with vomiting, unspecified; I10 Essential (primary) hypertension; I25.2 Old myocardial infarction; J44.9 Chronic obstructive pulmonary disease, unspecified; F17.200 Nicotine dependence, unspecified, uncomplicated; Z90.710 Acquired absence of both cervix and uterus; Z88.8 Allergy status to other drugs, medicaments and biological substances
CPT/HCPCS: 36415; 74177; 80048; 80076; 81001; 82140; 85025; 96361; 96365; 96366; 96375; 96376; 99291; J1170; J2405; J2543; J7030; Q9967

== ENCOUNTER 2018-07-27 12:13 | Emergency (ER) | payer MEDICARE ==
--- NOTE | 2018-07-27 13:36 | Emergency Department Report ---
Blank Doc - Documentation Documentation: This is a 58-year-old female that presents with lower back pain s/p fall. Sta floresita tripped at home and fell onto her back. Denies any neck or head trauma. Denies any other complaints or pain. This initial assessment/diagnostic orders/clinical plan/treatment(s) is/are subject to change based on patient's health status, clinical progression and re- assessment by fellow clinical providers in the ED. Further treatment and workup at subsequent clinical providers discretion. Patient/guardians urged not to elope from the ED as their condition may be serious if not clinically assessed and managed. Initial orders include: 1- Patient sent to [facility] for further evaluation and treatment 2- xray
[2018-07-27 13:38] VITALS: BP 136/86
--- NOTE | 2018-07-27 14:05 | XRay Report ---
LUMBOSACRAL SPINE, 3 VIEWS: History: Back pain Findings: There is straightening of the normal lordosis on the lateral image. Mild levocurvature of the lumbar spine is noted on the frontal image. There is no evidence for acute fracture, bone lesion or malalignment. Chronic deformity of the L3 superior endplate without loss of height is stable since 05/25/18. No significant degenerative changes are appreciated. The sacrum and SI joints are unremarkable. Impression: Mild levoscoliosis and straightening of the lumbar lordosis. Chronic L3 superior endplate deformity. No acute process identified.
[2018-07-27] MEDS ORDERED: MORPHINE IM ONE (15:53)
--- NOTE | 2018-07-27 16:12 | Emergency Department Report ---
ED Back Pain/Injury HPI - General Chief Complaint: Back Pain/Injury Stated Complaint: BACK PAIN Time Seen by Provider: 07/27/18 13:35 Source: patient Limitations: No Limitations - History of Present Illness Initial Comments: Patient is a 58-year-old female who is presenting with back pain. Patient has a history of chronic back pain as a pain clinic but has not been t here since April. Patient recently was in the hospital and had a couple K appendicitis surgery where she had to be given a colostomy. Patient then had a small bowel obstruction she is finally hospital she is out of her pain medicines and is looking for some help. Patient states her pain in her lower back as a 10 out of 10 in severity. She denies any bowel or bladder dysfunction. Patient's denies any fevers chills this time. Patient states she did suffer a fall last night while using her cane. Patient states this made her back pain worse which prompted her to come to the emergency department. - Related Data Home Medications Medication Instructions Recorded Confirmed Last Taken Citalopram Hydrobromide 40 mg PO QDAY 07/31/17 04/19/18 04/15/18 [Citalopram HBr] Gabapentin [Neurontin] 800 mg PO 5XD 07/31/17 04/19/18 04/15/18 Losartan 50 mg PO QDAY 07/31/17 04/19/18 04/15/18 Tizanidine HCl [Zanaflex] 2 mg PO QDAY 07/31/17 04/19/18 04/15/18 busPIRone [Buspar] 5 mg PO BID 07/31/17 04/19/18 04/15/18 Previous Rx's Medication Instructions Recorded Last Taken Type ALPRAZolam [Xanax TAB] 0.25 mg PO Q8H PRN tablet 06/10/18 Unknown Rx Acetaminophen [Acetaminophen 650 mg [place] Q4H PRN supp.rect 06/10/18 Unknown Rx SUPPOS] Arformoterol Nebu [Brovana Nebu] 15 mcg IH Q12HRT ml 06/10/18 Unknown Rx Benzocaine/Mentho [Cepacol X 1 each MM Q2HR PRN packet 06/10/18 Unknown Rx Strength] Budesonide [Pulmicort Respules] 0.5 mg IH Q12HRT nebu 06/10/18 Unknown Rx Gabapentin [Neurontin] 800 mg PO TID capsule 06/10/18 Unknown Rx HYDROcodone/APAP 5-325 [[place] 1 each PO Q4H PRN tablet 06/10/18 Unknown Rx 5-325 mg TAB] Loperamide [Imodium] 2 mg PO Q2H PRN capsule 06/10/18 Unknown Rx Metoprolol [Lopressor TAB] 12.5 mg PO BID tablet 06/10/18 Unknown Rx Mirtazapine [Remeron] 15 mg PO QHS tablet 06/10/18 Unknown Rx Ondansetron [Zofran INJ] 4 mg IV Q4H PRN vial 06/10/18 Unknown Rx fentaNYL [Duragesic] 25 mcg TD Q3D patch 06/10/18 Unknown Rx hydrALAZINE [Apresoline INJ] 10 mg IV Q4HR PRN vial 06/10/18 Unknown Rx methOCARBAMOL [Robaxin TAB] 500 mg PO Q6H PRN #14 tablet 07/27/18 Unknown Rx oxyCODONE /ACETAMINOPHEN [Percocet 1 tab PO Q4HR PRN #12 tab 07/27/18 Unknown Rx 5/325] Allergies Allergy/AdvReac Type Severity Reaction Status Date / Time NSAIDS (Non-Steroidal Allergy Unknown Verified 04/08/18 03:20 Anti-Inflamma ED Review of Systems ROS: Stated complaint: BACK PAIN Other details as noted in HPI Comment: All other systems reviewed and negative ED Past Medical Hx - Past Medical History chronic back pain. Neurofibroidmytosis Family history: no significant family history ED Back Pain Physical Exam - Exam General: Vital signs noted. No distress. Alert and acting appropriately. Back/Abdomen: Yes Perilumbar Tenderness, No Abdominal Tenderness, No Perithoracic Tenderness, No Sacroiliac Tenderness, No Flank Tenderness, No Straight Leg Raise Pain Neuro: Yes Normal Sensation, Yes Normal DTR's, Yes Normal Gait, No Motor Weakness ED Course Vital Signs 07/27/18 13:35 Temperature 97.6 F Pulse Rate 129 H Respiratory 16 Rate Blood Pressure 136/86 O2 Sat by Pulse 100 Oximetry ED Medical Decision Making - Radiology Data [facility] [address] [place] [address] XRay Report Signed Patient: DAVID SMITH MR# : [id number] : 1960 Acct:[id number] Age/Sex: 58 / F ADM Date: 07/27/18 Loc: ED Attending Dr: Ordering Physician: TODD HAYWOOD NP Date of Service: 07/27/18 Procedure(s): XR spine lumbosacral 2-3V Accession Number(s): [id number] cc: TODD HAYWOOD NP Fluoro Time In Minutes: LUMBOSACRAL SPINE, 3 VIEWS: History: Back pain Findings: There is straightening of the normal lordosis on the lateral image. Mild levocurvature of the lumbar spine is noted on the frontal image. There is no evidence for acute fracture, bone lesion or malalignment. Chronic deformity of the L3 superior endplate without loss of height is stable since 05/25/18. No significant degenerative changes are appreciated. The sacrum and SI joints are unremarkable. Impression: Mild levoscoliosis and straightening of the lumbar lordosis. Chronic L3 superior endplate deformity. No acute process identified. Transcribed By: TTR Dictated By: MIGNON MCGOWAN JR, MD Electronically Authenticated By: MIGNON MCGOWAN JR, MD Signed Date/Time: 07/27/181358 DD/ 57 TD/TT: 07/27/18 135 - Medical Decision Making Patient be given a few Percocet until she is able to see her pain clinic. Critical care attestation.: If time is entered above; I have spent that time in minutes in the direct care of this critically ill patient, excluding procedure time. ED Disposition Clinical Impression: Acute exacerbation of chronic low back pain Disposition: - TO HOME OR SELFCARE Is pt being admited?: No Does the pt Need Aspirin: No Condition: Stable Instructions: Low Back Strain (ED) Referrals: CHARLENE PUGA MD [Primary Care Provider] - 3-5 Days Time of Disposition: 16:11
== END 2018-07-27 16:36 | disposition home or self-care (01) ==
LOC: ED 12:13 → MERGE 12:13 → ED 16:36
DX: M54.5 Low back pain (principal); G89.29 Other chronic pain; Z88.7 Allergy status to serum and vaccine
CPT/HCPCS: 72100; 93005; 93010; 96372; 99283; J2270

== ENCOUNTER 2018-08-02 17:58 | Inpatient (IN) | payer MEDICARE ==
[2018-08-02] MEDS ORDERED: NACL 0.9% 1000 ML IV ONE (18:58)
--- NOTE | 2018-08-02 19:48 | Cat Scan Report ---
PROCEDURE: CT HEAD/BRAIN WO CON TECHNIQUE: Computerized tomography of the head was performed without contrast material. CT DOSE LENGTH PRODUCT: 920.48 mGycm HISTORY: headache COMPARISONS: Head CT dated July 31, 2017. . FINDINGS: There is no evidence of an acute intracranial process, intracranial hemorrhage or mass effect. Ventricular size is concordant with the degree of atrophy. There is atherosclerotic vascular calcification of the internal carotid arteries bilaterally at the s kull base. The visualized portions of the orbits, paranasal and mastoid sinuses are unremarkable. The bony structures are notable for evidence of degenerative change of the right temporomandibular shayan ints. IMPRESSION: 1. No evidence of an acute intracranial process, intracranial hemorrhage or mass effect. 2. Evidence of degenerative change right temporomandibular joint. This document is electronically signed by Kendal Galloway MD., Aug 02 2018 07:46:50 PM ET
[2018-08-02 19:53] LABS: Albumin 4.4 g/dL (3.9-5); Calcium 9.2 mg/dL (8.4-10.2)
--- NOTE | 2018-08-02 20:14 | XRay Report ---
PROCEDURE: XR CHEST 1V AP TECHNIQUE: Chest radiograph single view. HISTORY: weakness COMPARISONS: None . FINDINGS: Frontal view of the chest was acquired and compared to the prior examination of May 21. The heart is normal in size. There is a right pneumothorax, estimated at 30-40% of the volume of the right hemithorax. This was called by Dr. Singer to Dr. Awan at approximately IMPRESSION: Right pneumothorax This document is electronically signed by Duncan Singer MD., Aug 02 2018 08:12:11 PM ET
[2018-08-02 20:19] LABS: Hematocrit 43.6 % (30.3-42.9); Hemoglobin 14.4 gm/dl (10.1-14.3); Mean Corpuscular HGB Conc 33 % (30-34); Mean Corpuscular Volume 71 fl (79-97); Platelet Count 318 K/mm3 (140-440); Red Blood Count 6.11 M/mm3 (3.65-5.03)
[2018-08-02] MEDS ORDERED: HumuLIN R IV ONE (20:25)
[2018-08-02] MEDS ORDERED: D50W (25GM) Syringe IV ONE (20:25)
[2018-08-02] MEDS ORDERED: CALCIUM CHLORIDE IV ONE (20:26)
[2018-08-02] MEDS ORDERED: KIONEX PO ONE (20:26)
[2018-08-02 20:29] LABS: Lymphocytes % (Auto) 17.9 % (13.4-35.0); Monocytes % (Auto) 3.9 % (0.0-7.3)
[2018-08-02 20:30] LABS: Basophils % (Auto) 0.2 % (0.0-1.8); Lymphocytes # (Auto) 2.3 K/mm3 (1.2-5.4); Monocytes # (Auto) 0.5 K/mm3 (0.0-0.8)
[2018-08-02] MEDS ORDERED: ZOSYN/NS 4.5GM/100ML 4.5 GM/100 ML VIAL IV ONE (20:34)
[2018-08-02] MEDS ORDERED: XYLOCAINE 1% 20 mL INFILTRATI ONE (20:40)
[2018-08-02] MEDS ORDERED: MORPHINE IV ONE (20:49)
--- NOTE | 2018-08-02 20:53 | Emergency Department Report ---
ED General Adult HPI - General Chief complaint: Back Pain/Injury Stated complaint: HEADACHE/BACK PAIN Time Seen by Provider: 08/02/18 18:44 Source: patient, EMS Mode of arrival: Stretcher Limitations: Other - History of Present Illness Initial comments: 58-year-old female presents to the ED with complaint of exacerbation of chronic lower back pain and generalized weakness. Patient reports history of chronic back pain, currently has a colostomy tube secondary to ruptured appendicitis. Patient also reported vomiting and increased watery stool in colostomy bag. Reported decreased appetite and by mouth intake over the last 2 days. Denies fever, denies abdominal pain. Reports associated headache as well. -: days(s) (5) Location: head, back Quality: aching Consistency: constant Improves with: none Worsens with: movement Associated Symptoms: headaches, loss of appetite, malaise, nausea/vomiting, weakness. denies: chest pain, fever/chills, shortness of breath - Related Data Home Medications Medication Instructions Recorded Confirmed Last Taken Citalopram Hydrobromide 40 mg PO QDAY 07/31/17 04/19/18 04/15/18 [Citalopram HBr] Gabapentin [Neurontin] 800 mg PO 5XD 07/31/17 04/19/18 04/15/18 Losartan 50 mg PO QDAY 07/31/17 04/19/18 04/15/18 Tizanidine HCl [Zanaflex] 2 mg PO QDAY 07/31/17 04/19/18 04/15/18 busPIRone [Buspar] 5 mg PO BID 07/31/17 04/19/18 04/15/18 Previous Rx's Medication Instructions Recorded Last Taken Type ALPRAZolam [Xanax TAB] 0.25 mg PO Q8H PRN tablet 06/10/18 Unknown Rx Acetaminophen [Acetaminophen 650 mg SC Q4H PRN supp.rect 06/10/18 Unknown Rx SUPPOS] Arformoterol Nebu [Brovana Nebu] 15 mcg IH Q12HRT ml 06/10/18 Unknown Rx Benzocaine/Mentho [Cepacol X 1 each MM Q2HR PRN packet 06/10/18 Unknown Rx Strength] Budesonide [Pulmicort Respules] 0.5 mg IH Q12HRT nebu 06/10/18 Unknown Rx Gabapentin [Neurontin] 800 mg PO TID capsule 06/10/18 Unknown Rx HYDROcodone/APAP 5-325 [[place] 1 each PO Q4H PRN tablet 06/10/18 Unknown Rx 5-325 mg TAB] Loperamide [Imodium] 2 mg PO Q2H PRN capsule 06/10/18 Unknown Rx Metoprolol [Lopressor TAB] 12.5 mg PO BID tablet 06/10/18 Unknown Rx Mirtazapine [Remeron 15mg TAB] 15 mg PO QHS tablet 06/10/18 Unknown Rx Ondansetron [Zofran INJ] 4 mg IV Q4H PRN vial 06/10/18 Unknown Rx fentaNYL [Duragesic] 25 mcg TD Q3D patch 06/10/18 Unknown Rx hydrALAZINE [Apresoline INJ] 10 mg IV Q4HR PRN vial 06/10/18 Unknown Rx methOCARBAMOL [Robaxin TAB] 500 mg PO Q6H PRN #14 tablet 07/27/18 Unknown Rx oxyCODONE /ACETAMINOPHEN [Percocet 1 tab PO Q4HR PRN #12 tab 07/27/18 Unknown Rx 5/325] Allergies Allergy/AdvReac Type Severity Reaction Status Date / Time NSAIDS (Non-Steroidal Allergy Unknown Verified 04/08/18 03:20 Anti-Inflamma ED Review of Systems ROS: Stated complaint: HEADACHE/BACK PAIN Other details as noted in HPI Comment: All other systems reviewed and negative Constitutional: denies: chills, fever Respiratory: denies: shortness of breath Cardiovascular: denies: chest pain Gastrointestinal: nausea, vomiting, diarrhea. 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 Neurofibroidmytosis - Surgical History Past Surgical History?: Yes Hx Pacemaker: No Hx Internal Defibrillator: No Hx Appendectomy: Yes Additional Surgical History: Partial hyster, colostomy - Social History Smoking Status: Current Every Day Smoker - Medications Home Medications: Home Medications Medication Instructions Recorded Confirmed Last Taken Type Citalopram Hydrobromide 40 mg PO QDAY 07/31/17 04/19/18 04/15/18 History [Citalopram HBr] Gabapentin [Neurontin] 800 mg PO 5XD 07/31/17 04/19/18 04/15/18 History Losartan 50 mg PO QDAY 07/31/17 04/19/18 04/15/18 History Tizanidine HCl [Zanaflex] 2 mg PO QDAY 07/31/17 04/19/18 04/15/18 History busPIRone [Buspar] 5 mg PO BID 07/31/17 04/19/18 04/15/18 History ALPRAZolam [Xanax TAB] 0.25 mg PO Q8H PRN tablet 06/10/18 Unknown Rx Acetaminophen [Acetaminophen 650 mg SC Q4H PRN supp.rect 06/10/18 Unknown Rx SUPPOS] Arformoterol Nebu [Brovana Nebu] 15 mcg IH Q12HRT ml 06/10/18 Unknown Rx Benzocaine/Mentho [Cepacol X 1 each MM Q2HR PRN packet 06/10/18 Unknown Rx Strength] Budesonide [Pulmicort Respules] 0.5 mg IH Q12HRT nebu 06/10/18 Unknown Rx Gabapentin [Neurontin] 800 mg PO TID capsule 06/10/18 Unknown Rx HYDROcodone/APAP 5-325 [[place] 1 each PO Q4H PRN tablet 06/10/18 Unknown Rx 5-325 mg TAB] Loperamide [Imodium] 2 mg PO Q2H PRN capsule 06/10/18 Unknown Rx Metoprolol [Lopressor TAB] 12.5 mg PO BID tablet 06/10/18 Unknown Rx Mirtazapine [Remeron 15mg TAB] 15 mg PO QHS tablet 06/10/18 Unknown Rx Ondansetron [Zofran INJ] 4 mg IV Q4H PRN vial 06/10/18 Unknown Rx fentaNYL [Duragesic] 25 mcg TD Q3D patch 06/10/18 Unknown Rx hydrALAZINE [Apresoline INJ] 10 mg IV Q4HR PRN vial 06/10/18 Unknown Rx methOCARBAMOL [Robaxin TAB] 500 mg PO Q6H PRN #14 tablet 07/27/18 Unknown Rx oxyCODONE /ACETAMINOPHEN [Percocet 1 tab PO Q4HR PRN #12 tab 07/27/18 Unknown Rx 5/325] ED Physical Exam - General Limitations: Other General appearance: alert, other (appears frail) - Head Head exam: Present: atraumatic, normocephalic - Eye Eye exam: Present: normal appearance, PERRL, EOMI - ENT ENT exam: Present: mucous membranes moist - Neck Neck exam: Present: normal inspection - Respiratory Respiratory exam: Present: normal lung sounds bilaterally. Absent: respiratory distress - Cardiovascular Cardiovascular Exam: Present: regular rate, normal rhythm - GI/Abdominal GI/Abdominal exam: Present: soft, other (colostomy bag in place). Absent: distended, tenderness - Extremities Exam Extremities exam: Present: normal inspection - Neurological Exam Neurological exam: Present: alert, oriented X3, CN II-XII intact. Absent: motor sensory deficit - Psychiatric Psychiatric exam: Present: normal affect, normal mood - Skin Skin exam: Present: warm, dry, intact ED Course Vital Signs 08/02/18 08/02/18 08/02/18 18:25 18:29 18:30 Temperature 97.6 F Pulse Rate 92 H Respiratory 16 Rate Blood Pressure 101/52 85/48 O2 Sat by Pulse 82 L 100 97 Oximetry 08/02/18 08/02/18 08/02/18 18:46 19:00 19:16 Temperature Pulse Rate Respiratory Rate Blood Pressure 85/48 93/55 93/55 O2 Sat by Pulse 99 99 Oximetry 08/02/18 08/02/18 08/02/18 19:46 20:00 20:16 Temperature Pulse Rate Respiratory Rate Blood Pressure 89/49 104/44 104/44 O2 Sat by Pulse 98 97 95 Oximetry 08/02/18 08/02/18 08/02/18 20:30 20:46 21:00 Temperature Pulse Rate 64 85 Respiratory 16 16 Rate Blood Pressure 114/35 104/44 123/49 O2 Sat by Pulse 100 99 Oximetry 08/02/18 08/02/18 08/02/18 21:15 21:30 22:22 Temperature Pulse Rate 85 84 84 Respiratory 16 16 15 Rate Blood Pressure 110/41 125/58 125/58 O2 Sat by Pulse 100 98 Oximetry 08/02/18 08/02/18 08/02/18 22:30 22:45 23:00 Temperature Pulse Rate 81 80 86 Respiratory 10 L 11 L 17 Rate Blood Pressure 104/43 88/31 125/58 O2 Sat by Pulse 100 100 100 Oximetry - Reevaluation(s) Reevaluation #1: 08/02/18 21:29 Pt reports hx of spontaneous pneumothorax years ago. - Consultations Consultation #1: 08/02/18 22:20 Spoke w/ Dr Gilbert, wheel worker. Will see in the AM. Continue IV fluids. Likely due to volume depletion. Will not dialyze at this time. - Chest Tube Chest Tube Location: fifth interspace Size of [place] Tube (cm): 0 (pigtail catheter) Chest Tube Procedure: betadine prep, sterile drapes applied, sterile dressing applied Anesthesia: 1% Lidocaine w/ Epi Volume Anesthetic (ccs): 5 Owens of Air Dewitt: Yes (air withdrawn into syringe) Number of Attempts: 1 Tube Sutured to Skin: Yes Post Procedure CXR?: Yes Progress: PTX resolved ED Medical Decision Making - Lab Data Result diagrams: 08/02/18 19:04 08/02/18 19:04 - Radiology Data Radiology results: report reviewed, image reviewed - Medical Decision Making 58-year-old female presented to ED with complaint of acute exacerbation of chronic low back pain, generalized weakness, and headache. The patient was found to be hypotensive, which was not consistent with previous hospital visits. Patient then reported that she has had decreased by mouth intake over the last few days with associated vomiting, and increased watery stool in her colostomy bag. Due to hypotension, sepsis workup was initiated. Chest x-ray was ordered which showed right-sided pneumothorax. Patient did not complain of any chest pain or shortness of breath. O2 sats were 100% with this pneumothorax present. The pigtail catheter was placed, repeat chest x-ray showed resolution of the pneumothorax. Patient later reported that she has had a history of spontaneous pneumothorax in the past. Labs show mildly elevated WBC at 12.9. Chemistry have multiple abnormalities including sodium of 117 (chart review shows pt had previous sodium of 127), potassium of 6.1, bicarbonate of 12, BUN 94, creatnine 7.1. Patient was given multiple boluses of IV fluids. Blood pressure responded appropriately. Acute renal failure possibly due to volume depletion since patient reports vomiting, diarrhea, and decreased by mouth intake. Patient was given treatment for hyperkalemia which included insulin, D50, calcium chloride and Kayexalate. Nephrology was consulted, will not dialyze at this time, recommends IV fluids and will see in the morning. Lactic acid initially resulted 2.6. Blood cultures were drawn and Zosyn was administered for possible sepsis. UA shows UTI. Repeat lactic acid improved to 1.6. CT abdomen and pelvis negative for any intra-abdominal abnormalities. CT Head was done due to reports of COLLAZO, which was negative. No focal neuro deficits on exam. Patient admitted to hospitalist, Dr. Hawthorne for further management. - Differential Diagnosis chronic back pain, gastroenteritis, dehydration Critical Care Time: Yes Critical care time in (mins) excluding proc time.: 60 Critical care attestation.: If time is entered above; I have spent that time in minutes in the direct care of this critically ill patient, excluding procedure time. Critical Care Time: 60 minutes ED Disposition Clinical Impression: Dehydration, Vomiting and diarrhea, Hyperkalemia, Hyponatremia, Acute renal failure, Spontaneous pneumothorax, Sepsis, Hypotension, UTI (urinary tract infection) Disposition: OP ADMIT IP TO THIS HOSP Is pt being admited?: Yes Condition: Stable Time of Disposition: 23:13
[2018-08-02] MEDS ORDERED: NACL 0.9% 1000 ML 1,000 ML IV ONE ×2 (21:29→23:00)
[2018-08-02] MEDS ORDERED: NACL 0.9% 1000 ML 1,000 ML ONE (21:31)
--- NOTE | 2018-08-02 21:54 | XRay Report ---
PROCEDURE: XR CHEST 1V AP TECHNIQUE: Chest radiograph single view. HISTORY: post chest tube COMPARISONS: CXR 08/02/2018 at 7:43 PM . FINDINGS: Heart: Normal. Mediastinum/Vessels: Normal. No mediastinal shift is noted. Lungs/Pleural space: There is been significant improvement and reexpansion of right lung. No definit e pneumothorax is currently identified on the right. There are new bilateral symmetrical nodular dens ities overlying the midlung zones, likely representing nipple shadows.. Bony thorax: No acute osseous abnormality. Life support devices: Right-sided chest tube has been placed in the apex. IMPRESSION: Significant reexpansion of right lung with no definite pneumothorax currently seen follow ing chest tube placement. No mediastinal shift. This document is electronically signed by Monique Valdes MD., Aug 02 2018 09:52:16 PM ET
--- NOTE | 2018-08-02 22:43 | Cat Scan Report ---
PROCEDURE: CT ABDOMEN PELVIS WO CON TECHNIQUE: Computerized axial tomography of the abdomen and pelvis was performed without intravenous contrast. This study is performed without intravascular contrast material and its sensitivity for ab dominal and pelvic pathology, including neoplasms, inflammation, abscess, free fluid, thrombosis, art erial dissection and infarction, is reduced compared with a contrast enhanced study. CT DOSE LENGTH PRODUCT: mGycm HISTORY: vomiting, diarrhea COMPARISONS: July 16, 2018 . FINDINGS: Mild degree right-sided pneumothorax is noted. There are multiple thin-walled cystic lesions Involvin g visualized bilateral lower lungs. Liver, spleen, pancreas and adrenal glands are within normal limi ts. Bilateral kidneys demonstrate normal density without calculi or hydronephrosis. Aorta is of duncan l caliber. There is no free fluid or free air. Small calculi are noted in the gallbladder. Small issa l loops are within normal limits. There is evidence of right colectomy with right upper quadrant colo stomy. Vertebral height is normal. 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 Awan at 10:37 PM EST on 08/02/2018. This document is electronically signed by Mookie Salcedo MD., Aug 02 2018 10:41:43 PM ET
[2018-08-02 23:09] VITALS: BP 125/58
[2018-08-02] MEDS ORDERED: ZOFRAN IV PRN (23:10)
[2018-08-02] MEDS ORDERED: SODIUM CHLORIDE FLUSH SYRINGE 10 ML IV PRN (23:10)
[2018-08-02] MEDS ORDERED: TYLENOL PO PRN (23:10)
--- NOTE | 2018-08-02 23:13 | History and Physical Report ---
History of Present Illness Date of examination: 08/02/18 History of present illness: 58 -year-old woman with a history of hypertension, neurofibromatosis, COPD, hepatitis C, chronic back pain comes emergency room with complaints of headache and abdominal pain which is not resolved. The headache was in the frontal area which she describes as sharp, with intermittent for a few seconds, no radiation, cannot identify exacerbating or relieving factors. Abdominal pain was in the epigastric area sharp,, intensity 6/10, no radiation, now resolved. She also complained of increased output from her colostomy bag. In the emergency room she was found to have a pneumothorax on chest x-ray, chest tube was placed Review of systems Constitutional: no weight loss, chills, fever Ears, eyes, nose, mouth and throat: no nasal congestion, no nasal discharge, no sinus pressure, no vision change, no red eye. Neck: No neck pain or rigidity. Cardiovascular: no palpitations, chest pain Respiratory: no cough, shortness of breath Gastrointestinal: no hematochezia Genitourinary : no frequency , no hematuria Musculoskeletal: no joint swelling or muscle ache Integumentary: no rash, no pruritis Neurological: no parathesias, no focal weakness Endocrine: no cold or heat intolerance, no polyuria or polydipsia Hematologic/Lymphatic: no easy bruising, no easy bleeding, no gland swelling Allergic/Immunologic: no urticaria, no angioedema. PAST MEDICAL HISTORY:hypertension, neurofibromatosis, COPD, hepatitis C, chronic back pain PAST SURGICAL HISTORY: Appendectomy, hysterectomy SOCIAL HISTORY: Denies alcohol, drugs, smoke 1/2 pack a day FAMILY HISTORY: Hypertension Medications and Allergies Allergies Allergy/AdvReac Type Severity Reaction Status Date / Time NSAIDS (Non-Steroidal Allergy Unknown Verified 04/08/18 03:20 Anti-Inflamma Home Medications Medication Instructions Recorded Confirmed Last Taken Type Citalopram Hydrobromide 40 mg PO QDAY 07/31/17 04/19/18 04/15/18 History [Citalopram HBr] Gabapentin [Neurontin] 800 mg PO 5XD 07/31/17 04/19/18 04/15/18 History Losartan 50 mg PO QDAY 07/31/17 04/19/18 04/15/18 History Tizanidine HCl [Zanaflex] 2 mg PO QDAY 07/31/17 04/19/18 04/15/18 History busPIRone [Buspar] 5 mg PO BID 07/31/17 04/19/18 04/15/18 History ALPRAZolam [Xanax TAB] 0.25 mg PO Q8H PRN tablet 06/10/18 Unknown Rx Acetaminophen [Acetaminophen 650 mg RI Q4H PRN supp.rect 06/10/18 Unknown Rx SUPPOS] Arformoterol Nebu [Brovana Nebu] 15 mcg IH Q12HRT ml 06/10/18 Unknown Rx Benzocaine/Mentho [Cepacol X 1 each MM Q2HR PRN packet 06/10/18 Unknown Rx Strength] Budesonide [Pulmicort Respules] 0.5 mg IH Q12HRT nebu 06/10/18 Unknown Rx Gabapentin [Neurontin] 800 mg PO TID capsule 06/10/18 Unknown Rx HYDROcodone/APAP 5-325 [[place] 1 each PO Q4H PRN tablet 06/10/18 Unknown Rx 5-325 mg TAB] Loperamide [Imodium] 2 mg PO Q2H PRN capsule 06/10/18 Unknown Rx Metoprolol [Lopressor TAB] 12.5 mg PO BID tablet 06/10/18 Unknown Rx Mirtazapine [Remeron 15mg TAB] 15 mg PO QHS tablet 06/10/18 Unknown Rx Ondansetron [Zofran INJ] 4 mg IV Q4H PRN vial 06/10/18 Unknown Rx fentaNYL [Duragesic] 25 mcg TD Q3D patch 06/10/18 Unknown Rx hydrALAZINE [Apresoline INJ] 10 mg IV Q4HR PRN vial 06/10/18 Unknown Rx methOCARBAMOL [Robaxin TAB] 500 mg PO Q6H PRN #14 tablet 07/27/18 Unknown Rx oxyCODONE /ACETAMINOPHEN [Percocet 1 tab PO Q4HR PRN #12 tab 07/27/18 Unknown Rx 5/325] Active Meds: Active Medications Sodium Chloride (Nacl 0.9% 1000 Ml) 1,000 mls @ 999 mls/hr IV BOLUS ONE Stop: 08/03/18 00:00 Exam - Physical Exam Narrative exam: General Apperance: The patient lying in bed, breathing comfortable HEENT: Normocephalic, atraumatic. Pupils equally round and reactive to light, EOMI, no sclericterus or JVD or thyromegaly or nodule. , no carotid bruit, mucous membranes moist, no exudate or erythema Heart: S1-S2, regular is rhythm Lungs: Clear to auscultation bilaterally, breathing comfortable Abdomen: + Colostomy bag, Positive bowel sounds, soft, nontender, nondistended, no organomegaly Extremities: No edema cyanosis clubbing Skin: no rash, nodule, warm and dry Neuro: cranial nerves 2-12 intact, speech is fluent, motor/sensory intact - Constitutional Vitals: Temp Pulse Resp BP Pulse Ox 97.6 F 86 17 125/58 100 08/02/18 18:29 08/02/18 23:00 08/02/18 23:00 08/02/18 23:00 08/02/18 23:00 Results - Labs CBC & Chem 7: 08/02/18 19:04 08/02/18 19:04 Labs: Abnormal lab results 08/02/18 08/02/18 08/02/18 Range/Units 19:04 19:04 19:04 WBC 12.9 H (4.5-11.0) K/mm3 RBC 6.11 H (3.65-5.03) M/mm3 Hgb 14.4 H (10.1-14.3) gm/dl Hct 43.6 H (30.3-42.9) % MCV 71 L (79-97) fl MCH 24 L (28-32) pg RDW 18.0 H (13.2-15.2) % Seg Neutrophils % 78.0 H (40.0-70.0) % Seg Neutrophils # 10.0 H (1.8-7.7) K/mm3 Sodium 117 L* (137-145) mmol/L Potassium 6.1 H* (3.6-5.0) mmol/L Chloride 76.7 L (98-107) mmol/L Carbon Dioxide 12 L (22-30) mmol/L BUN 94 H (7-17) mg/dL Creatinine 7.1 H (0.7-1.2) mg/dL Lactic Acid 2.70 H* (0.7-2.0) mmol/L Total Protein 8.7 H (6.3-8.2) g/dL - Imaging and Cardiology Chest x-ray: report reviewed CT scan - abdomen: report reviewed CT Scan - head: report reviewed CT scan - pelvis: report reviewed Assessment and Plan Assessment Renal failure secondary to increased output from colostomy bag Spontaneous pneumothorax, acute Hyponatremia Hyperkalemia UTI COPD, stable Hepatitis C Neurofibromatosis Plan Admit medicine Start IV fluid, monitor kidney function, sodium, potassium Status post cocktail for hyperkalemia Renal consult to see the patient Consult pulmonary, started on IV Rocephin, follow culture DVT prophylaxis
[2018-08-02] MEDS ORDERED: NACL 0.9% 1000 ML 1,000 ML IV SCH (23:45)
[2018-08-02 23:58] LABS: Bacteria,Urine 2+ /HPF (Negative); Bilirubin,Urine NEG (Negative); Blood,Urine NEG (Negative); Color,Urine Amber (Yellow); Mucus,Urine 3+ /HPF; Urobilinogen,Urine < 2.0 mg/dL (<2.0)
[2018-08-03 00:16] LABS: Creatinine,Urine 157.3 mg/dL (0.1-20.0)
[2018-08-03] MEDS: PERCOCET 5/325 PO PRN ×4 (01:04→21:29)
[2018-08-03 02:40] LABS: Calcium 8.9 mg/dL (8.4-10.2)
[2018-08-03 04:55] LABS: Basophils # (Auto) 0.1 K/mm3 (0.0-0.1); Basophils % (Auto) 0.7 % (0.0-1.8); Hematocrit 35.2 % (30.3-42.9); Hemoglobin 11.8 gm/dl (10.1-14.3); Lymphocytes # (Auto) 1.7 K/mm3 (1.2-5.4); Lymphocytes % (Auto) 19.3 % (13.4-35.0); Mean Corpuscular HGB Conc 34 % (30-34); Mean Corpuscular Volume 71 fl (79-97); Monocytes # (Auto) 0.6 K/mm3 (0.0-0.8); Monocytes % (Auto) 6.3 % (0.0-7.3); Platelet Count 169 K/mm3 (140-440); Red Blood Count 4.96 M/mm3 (3.65-5.03); Red Cell Distribution Width 17.4 % (13.2-15.2)
[2018-08-03 05:15] LABS: Calcium 8.9 mg/dL (8.4-10.2)
[2018-08-03] MEDS: ROCEPHIN/NS 1 GM/50 ML 1 GM/50 ML BAG IV SCH (08:09)
--- NOTE | 2018-08-03 09:10 | Progress Note ---
Assessment and Plan Assessment and plan: Assessment Acute kidney injury likely due to increased output from colostomy bag, vasomotor nephropathy Spontaneous pneumothorax, acute s/p chest tube placed Hyponatremia Hyperkalemia UTI COPD, stable Hepatitis C Neurofibromatosis Plan Admitted to [facility] medicine Start IV fluid, monitor kidney function, sodium, potassium Creatinine improving Nephrology following. discussed with Dr. woody Consulted pulmonary, started on IV Rocephin, follow culture DVT prophylaxis On Lovenox Hospitalist Physical - Physical exam Narrative exam: Gen: Not in acute distress, lying in bed, obese HEENT: Normocephalic, atraumatic Neck: supple, no JVD Heart: S1 and S2 reg, no murmurs, rubs or gallop Lungs: Clear, right chest tube in place,no crackles, no wheeze Abd: soft, non tender, non distended, normal BS Ext: No edema, no clubbing, no cyanosis, Neuro: Awake,alert, oriented x 3, moves all ext, non focal Psych:Normal mood skin:multiple diffuse neurofibromatosis skin lesions - Constitutional Vitals: Temp Pulse Resp BP Pulse Ox 97.6 F 86 17 125/58 97 08/03/18 03:47 08/02/18 23:00 08/02/18 23:00 08/02/18 23:00 08/03/18 07:10 Results - Labs CBC & Chem 7: 08/03/18 04:34 08/03/18 18:20 Labs: Laboratory Last Values WBC 8.8 K/mm3 (4.5-11.0) 08/03/18 04:34 RBC 4.96 M/mm3 (3.65-5.03) 08/03/18 04:34 Hgb 11.8 gm/dl (10.1-14.3) 08/03/18 04:34 Hct 35.2 % (30.3-42.9) D 08/03/18 04:34 MCV 71 fl (79-97) L 08/03/18 04:34 MCH 24 pg (28-32) L 08/03/18 04:34 MCHC 34 % (30-34) 08/03/18 04:34 RDW 17.4 % (13.2-15.2) H 08/03/18 04:34 Plt Count 169 K/mm3 (140-440) 08/03/18 04:34 Lymph % (Auto) 19.3 % (13.4-35.0) 08/03/18 04:34 Bailey % (Auto) 6.3 % (0.0-7.3) 08/03/18 04:34 Eos % (Auto) 0.0 % (0.0-4.3) 08/03/18 04:34 Baso % (Auto) 0.7 % (0.0-1.8) 08/03/18 04:34 Lymph # 1.7 K/mm3 (1.2-5.4) 08/03/18 04:34 Bailey # 0.6 K/mm3 (0.0-0.8) 08/03/18 04:34 Eos # 0.0 K/mm3 (0.0-0.4) 08/03/18 04:34 Baso # 0.1 K/mm3 (0.0-0.1) 08/03/18 04:34 Seg Neutrophils % 73.7 % (40.0-70.0) H 08/03/18 04:34 Seg Neutrophils # 6.5 K/mm3 (1.8-7.7) 08/03/18 04:34 Sodium 128 mmol/L (137-145) L 08/03/18 04:34 Potassium 4.2 mmol/L (3.6-5.0) 08/03/18 04:34 Chloride 94.1 mmol/L (98-107) L 08/03/18 04:34 Carbon Dioxide 12 mmol/L (22-30) L 08/03/18 04:34 26 mmol/L 08/03/18 04:34 BUN 86 mg/dL (7-17) H 08/03/18 04:34 5.4 mg/dL (0.7-1.2) H 08/03/18 04:34 Estimated GFR 8 ml/min 08/03/18 04:34 16 % 08/03/18 04:34 Glucose 96 mg/dL (65-100) 08/03/18 04:34 Lactic Acid 1.60 mmol/L (0.7-2.0) 08/02/18 20:48 Calcium 8.9 mg/dL (8.4-10.2) 08/03/18 04:34 Phosphorus 9.40 mg/dL (2.5-4.5) H 08/03/18 04:34 Magnesium 1.80 mg/dL (1.7-2.3) 08/03/18 04:34 0.40 mg/dL (0.1-1.2) 08/02/18 19:04 AST 31 units/L (5-40) 08/02/18 19:04 ALT 30 units/L (7-56) 08/02/18 19:04 112 units/L (35-129) 08/02/18 19:04 8.7 g/dL (6.3-8.2) H 08/02/18 19:04 4.4 g/dL (3.9-5) 08/02/18 19:04 1.0 % 08/02/18 19:04 Sophie (Yellow) 08/02/18 22:57 Cloudy (Clear) 08/02/18 22:57 5.0 (5.0-7.0) 08/02/18 22:57 Ur Specific [place] 1.019 (1.003-1.030) 08/02/18 22:57 100 mg/dl mg/dL (Negative) 08/02/18 22:57 Neg mg/dL (Negative) 08/02/18 22:57 Neg mg/dL (Negative) 08/02/18 22:57 Neg (Negative) 08/02/18 22:57 Neg (Negative) 08/02/18 22:57 Neg (Negative) 08/02/18 22:57 < 2.0 mg/dL (<2.0) 08/02/18 22:57 Ur Leukocyte Esterase Tr (Negative) 08/02/18 22:57 20.0 /HPF (0.0-6.0) H 08/02/18 22:57 8.0 /HPF (0.0-6.0) 08/02/18 22:57 U Epithel Cells (Auto) < 1.0 /HPF (0-13.0) 08/02/18 22:57 2+ /HPF (Negative) 08/02/18 22:57 2+ /HPF 08/02/18 22:57 3+ /HPF 08/02/18 22:57 157.3 mg/dL (0.1-20.0) H 08/02/18 22:57 13 mmol/L 08/02/18 22:57 Active Medications - Current Medications Current Medications: Generic Name Dose Route Start Last Admin Trade Name Freq PRN Reason Stop Dose Admin Acetaminophen 650 mg 08/02/18 23:10 Tylenol PO Q4H PRN Pain MILD(1-3)/Fever >100.5/COLLAZO Enoxaparin Sodium 30 mg 08/03/18 10:00 Lovenox SUB-Q QDAY DUSTIN Ceftriaxone Sodium 1 gm in 50 mls @ 100 mls/hr 08/03/18 06:00 08/03/18 08:09 Rocephin/Ns 1 Gm/50 Ml IV 100 mls/hr Q24H DUSTIN Administration Protocol Sodium Bicarbonate 75 meq/ 1,075 mls @ 100 mls/hr 08/03/18 08:00 Sterile Water IV DIRECT DUSTIN Ondansetron HCl 4 mg 08/02/18 23:10 Zofran IV Q8H PRN Nausea And Vomiting Oxycodone/Acetaminophen 1 tab 08/02/18 23:10 08/03/18 08:09 Percocet 5/325 PO 1 tab Q6H PRN Administration Pain, Moderate (4-6) Sodium Chloride 10 ml 08/03/18 10:00 Sodium Chloride Flush Syringe 10 Ml IV BID DUSTIN Sodium Chloride 10 ml 08/02/18 23:10 Sodium Chloride Flush Syringe 10 Ml IV PRN PRN LINE FLUSH
[2018-08-03] MEDS: LOVENOX SUB-Q SCH (09:58)
[2018-08-03] MEDS: STERILE WATER IV SCH ×2 (09:58→21:26)
[2018-08-03] MEDS: SODIUM CHLORIDE FLUSH SYRINGE 10 ML IV SCH ×2 (09:58→21:30)
[2018-08-03] MEDS: SODIUM BICARBONATE IV SCH ×2 (09:58→21:26)
[2018-08-03] MEDS: MORPHINE IV PRN ×4 (11:09→23:18)
--- NOTE | 2018-08-03 11:21 | Consultation ---
History of Present Illness Consult date: 08/03/18 Requesting physician: GLO BUTT Reason for consult: pneumothorax History of present illness: 58 y/o female, smoker, with prior history of PTX years ago, presents to ED with headache and back pain. CXR done and moderate right sided PTX seen. CT placed by Ed physician with resolution of PTX. Per patient, the one from years ago with spontaneous. This one appears to be the same. patient denies any trauma. As stated earlier, still smokes but per her "not very much". Despite resolution of PTX. patient still with the same pain she presented to the ED with so PTX was essentially and incidental finding. Patient did admit to some shortness of breath but not sure when that started. Past History Past Medical History: hypertension, other (neurofibromatosis, prior PTX s/p chest tube, cannot remember which side, ruptured appendix) Past Surgical History: appendectomy Social history: smoking Family history: no significant family history Medications and Allergies Allergies Allergy/AdvReac Type Severity Reaction Status Date / Time NSAIDS (Non-Steroidal Allergy Unknown Verified 04/08/18 03:20 Anti-Inflamma Home Medications Medication Instructions Recorded Confirmed Last Taken Type Citalopram Hydrobromide 40 mg PO QDAY 07/31/17 04/19/18 04/15/18 History [Citalopram HBr] Gabapentin [Neurontin] 800 mg PO 5XD 07/31/17 04/19/18 04/15/18 History Losartan 50 mg PO QDAY 07/31/17 04/19/18 04/15/18 History Tizanidine HCl [Zanaflex] 2 mg PO QDAY 07/31/17 04/19/18 04/15/18 History busPIRone [Buspar] 5 mg PO BID 07/31/17 04/19/18 04/15/18 History ALPRAZolam [Xanax TAB] 0.25 mg PO Q8H PRN tablet 06/10/18 Unknown Rx Acetaminophen [Acetaminophen 650 mg [place] Q4H PRN supp.rect 06/10/18 Unknown Rx SUPPOS] Arformoterol Nebu [Brovana Nebu] 15 mcg IH Q12HRT ml 06/10/18 Unknown Rx Benzocaine/Mentho [Cepacol X 1 each MM Q2HR PRN packet 06/10/18 Unknown Rx Strength] Budesonide [Pulmicort Respules] 0.5 mg IH Q12HRT nebu 06/10/18 Unknown Rx Gabapentin [Neurontin] 800 mg PO TID capsule 06/10/18 Unknown Rx HYDROcodone/APAP 5-325 [[place] 1 each PO Q4H PRN tablet 06/10/18 Unknown Rx 5-325 mg TAB] Loperamide [Imodium] 2 mg PO Q2H PRN capsule 06/10/18 Unknown Rx Metoprolol [Lopressor TAB] 12.5 mg PO BID tablet 06/10/18 Unknown Rx Mirtazapine [Remeron 15mg TAB] 15 mg PO QHS tablet 06/10/18 Unknown Rx Ondansetron [Zofran INJ] 4 mg IV Q4H PRN vial 06/10/18 Unknown Rx fentaNYL [Duragesic] 25 mcg TD Q3D patch 06/10/18 Unknown Rx hydrALAZINE [Apresoline INJ] 10 mg IV Q4HR PRN vial 06/10/18 Unknown Rx methOCARBAMOL [Robaxin TAB] 500 mg PO Q6H PRN #14 tablet 07/27/18 Unknown Rx oxyCODONE /ACETAMINOPHEN [Percocet 1 tab PO Q4HR PRN #12 tab 07/27/18 Unknown Rx 5/325] Active Meds: Active Medications Acetaminophen (Tylenol) 650 mg PO Q4H PRN PRN Reason: Pain MILD(1-3)/Fever >100.5/COLLAZO Enoxaparin Sodium (Lovenox) 30 mg SUB-Q QDAY DUSTIN Last Admin: 08/03/18 09:58 Dose: 30 mg Documented by: Ceftriaxone Sodium (Rocephin/Ns 1 Gm/50 Ml) 1 gm in 50 mls @ 100 mls/hr IV Q24H DUTSIN; Protocol Last Admin: 08/03/18 08:09 Dose: 100 mls/hr Documented by: Sodium Bicarbonate 75 meq/ (Sterile Water) 1,075 mls @ 100 mls/hr IV DIRECT DUSTIN Last Admin: 08/03/18 09:58 Dose: 100 mls/hr Documented by: Morphine Sulfate (Morphine) 2 mg IV Q4H PRN PRN Reason: Pain, Moderate (4-6) Last Admin: 08/03/18 11:09 Dose: 2 mg Documented by: Ondansetron HCl (Zofran) 4 mg IV Q8H PRN PRN Reason: Nausea And Vomiting Oxycodone/Acetaminophen (Percocet 5/325) 1 tab PO Q6H PRN PRN Reason: Pain, Moderate (4-6) Last Admin: 08/03/18 08:09 Dose: 1 tab Documented by: Sodium Chloride (Sodium Chloride Flush Syringe 10 Ml) 10 ml IV BID DUSTIN Last Admin: 08/03/18 09:58 Dose: 10 ml Documented by: Sodium Chloride (Sodium Chloride Flush Syringe 10 Ml) 10 ml IV PRN PRN PRN Reason: LINE FLUSH Review of Systems All systems: negative Physical Examination Vital signs: Vital Signs Pulse Ox 82 L 08/02/18 18:25 General appearance: no acute distress, alert Eyes: non-icteric Effort: normal Ascultation: Bilateral: clear Cardiovascular: regular rate and rhythm Gastrointestinal: normoactive bowel sounds, soft Extremities: no edema, pink and warm, pulses normal normal mental status, non-focal exam Results - Laboratory Findings CBC and BMP: 08/03/18 04:34 08/03/18 10:07 Abnormal lab findings: Abnormal Labs 08/02/18 08/02/18 08/02/18 19:04 19:04 19:04 WBC 12.9 H RBC 6.11 H Hgb 14.4 H Hct 43.6 H MCV 71 L MCH 24 L RDW 18.0 H Seg Neutrophils % 78.0 H Seg Neutrophils # 10.0 H Sodium 117 L* Potassium 6.1 H* Chloride 76.7 L Carbon Dioxide 12 L BUN 94 H Creatinine 7.1 H Glucose Lactic Acid 2.70 H* Calcium Phosphorus Total Protein 8.7 H Urine WBC (Auto) Urine Creatinine 08/02/18 08/02/18 08/03/18 22:57 22:57 00:55 WBC RBC Hgb Hct MCV MCH RDW Seg Neutrophils % Seg Neutrophils # Sodium 127 L D Potassium Chloride 92.5 L Carbon Dioxide 12 L BUN 88 H Creatinine 6.0 H Glucose 60 L Lactic Acid Calcium Phosphorus Total Protein Urine WBC (Auto) 20.0 H Urine Creatinine 157.3 H 08/03/18 08/03/18 08/03/18 04:34 04:34 10:07 WBC RBC Hgb Hct MCV 71 L MCH 24 L RDW 17.4 H Seg Neutrophils % 73.7 H Seg Neutrophils # Sodium 128 L 127 L Potassium Chloride 94.1 L 92.6 L Carbon Dioxide 12 L 13 L BUN 86 H 75 H Creatinine 5.4 H 3.9 H Glucose 106 H Lactic Acid Calcium 8.0 L Phosphorus 9.40 H Total Protein Urine WBC (Auto) Urine Creatinine - Diagnostic Findings Chest x-ray: image reviewed (resolution of PTX on right. Remainder of the lung clear.) Assessment and Plan 58 y/o female with spontaneous PTX s/p chest tube now resolved on Water Seal. 1. Continue water seal now 2. Clamp tube in am and repeat CXR. 3. If lung remains up, can remove Chest Tube
--- NOTE | 2018-08-03 13:40 | Event Note ---
Date: 08/03/18 Tube clamped and repeat film shows lung up. However, patient's ostomy is leaking and area now is dirty and needs to be cleaned. Will leave CT clamped and tube can be removed tomorrow.
[2018-08-03 13:46] LABS: Calcium 8.5 mg/dL (8.4-10.2)
--- NOTE | 2018-08-03 14:00 | XRay Report ---
AP CHEST: HISTORY: Pneumothorax The right chest tube is unchanged in position. A tiny right apical pneumothorax is identified measuring 0.9 cm in thickness. Otherwise, the lungs are clear. Mild chronic interstitial changes are noted. normal heart and mediastinal structures. IMPRESSION: Tiny right apical pneumothorax as described
--- NOTE | 2018-08-03 14:39 | Consultation ---
History of Present Illness - Reason for Consult Consult date: 08/03/18 acute renal failure, hyponatremia, hyperkalemia - History of Present Illness The patient is a 58 YO female with history significant for Hypertension, Neurofibromatosis, COPD, Tobacco smoking, Hepatitis C, Chronic back pain and s/p ostomy who presented to [facility] ER yesterday with complaints of R sided chest wall pain for 1-2 days. She also reporst having sob, nausea, vomiting, decreased appetite and poor PO intake. She also complained of increased output from her colostomy bag. During the previous admission she presented with ruptured appendix with intra-abdominal abscess. In the emergency room she was found to have a R sided pneumothorax now s/p chest tube. Labs were significant for Sodium 117 and K 6.1. Nephrology was consulted for further evaluation. Past History Past Medical History: COPD, hypertension, other (neurofibromatosis, prior PTX s/p chest tube, cannot remember which side, ruptured appendix) Past Surgical History: appendectomy Social history: smoking Family history: no significant family history Medications and Allergies Allergies Allergy/AdvReac Type Severity Reaction Status Date / Time NSAIDS (Non-Steroidal Allergy Unknown Verified 04/08/18 03:20 Anti-Inflamma Home Medications Medication Instructions Recorded Confirmed Last Taken Type Citalopram Hydrobromide 40 mg PO QDAY 07/31/17 04/19/18 04/15/18 History [Citalopram HBr] Gabapentin [Neurontin] 800 mg PO 5XD 07/31/17 04/19/18 04/15/18 History Losartan 50 mg PO QDAY 07/31/17 04/19/18 04/15/18 History Tizanidine HCl [Zanaflex] 2 mg PO QDAY 07/31/17 04/19/18 04/15/18 History busPIRone [Buspar] 5 mg PO BID 07/31/17 04/19/18 04/15/18 History ALPRAZolam [Xanax TAB] 0.25 mg PO Q8H PRN tablet 06/10/18 Unknown Rx Acetaminophen [Acetaminophen 650 mg [place] Q4H PRN supp.rect 06/10/18 Unknown Rx SUPPOS] Arformoterol Nebu [Brovana Nebu] 15 mcg IH Q12HRT ml 06/10/18 Unknown Rx Benzocaine/Mentho [Cepacol X 1 each MM Q2HR PRN packet 06/10/18 Unknown Rx Strength] Budesonide [Pulmicort Respules] 0.5 mg IH Q12HRT nebu 06/10/18 Unknown Rx Gabapentin [Neurontin] 800 mg PO TID capsule 06/10/18 Unknown Rx HYDROcodone/APAP 5-325 [[place] 1 each PO Q4H PRN tablet 06/10/18 Unknown Rx 5-325 mg TAB] Loperamide [Imodium] 2 mg PO Q2H PRN capsule 06/10/18 Unknown Rx Metoprolol [Lopressor TAB] 12.5 mg PO BID tablet 06/10/18 Unknown Rx Mirtazapine [Remeron 15mg TAB] 15 mg PO QHS tablet 06/10/18 Unknown Rx Ondansetron [Zofran INJ] 4 mg IV Q4H PRN vial 06/10/18 Unknown Rx fentaNYL [Duragesic] 25 mcg TD Q3D patch 06/10/18 Unknown Rx hydrALAZINE [Apresoline INJ] 10 mg IV Q4HR PRN vial 06/10/18 Unknown Rx methOCARBAMOL [Robaxin TAB] 500 mg PO Q6H PRN #14 tablet 07/27/18 Unknown Rx oxyCODONE /ACETAMINOPHEN [Percocet 1 tab PO Q4HR PRN #12 tab 07/27/18 Unknown Rx 5/325] Active Meds: Active Medications Acetaminophen (Tylenol) 650 mg PO Q4H PRN PRN Reason: Pain MILD(1-3)/Fever >100.5/COLLAZO Enoxaparin Sodium (Lovenox) 30 mg SUB-Q QDAY DUSTIN Last Admin: 08/03/18 09:58 Dose: 30 mg Documented by: Ceftriaxone Sodium (Rocephin/Ns 1 Gm/50 Ml) 1 gm in 50 mls @ 100 mls/hr IV Q24H DUSTIN; Protocol Last Admin: 08/03/18 08:09 Dose: 100 mls/hr Documented by: Sodium Bicarbonate 75 meq/ (Sterile Water) 1,075 mls @ 100 mls/hr IV DIRECT DUSTIN Last Admin: 08/03/18 09:58 Dose: 100 mls/hr Documented by: Morphine Sulfate (Morphine) 2 mg IV Q4H PRN PRN Reason: Pain, Moderate (4-6) Last Admin: 08/03/18 11:09 Dose: 2 mg Documented by: Ondansetron HCl (Zofran) 4 mg IV Q8H PRN PRN Reason: Nausea And Vomiting Oxycodone/Acetaminophen (Percocet 5/325) 1 tab PO Q6H PRN PRN Reason: Pain, Moderate (4-6) Last Admin: 08/03/18 14:20 Dose: 1 tab Documented by: Sodium Chloride (Sodium Chloride Flush Syringe 10 Ml) 10 ml IV BID DUSTIN Last Admin: 08/03/18 09:58 Dose: 10 ml Documented by: Sodium Chloride (Sodium Chloride Flush Syringe 10 Ml) 10 ml IV PRN PRN PRN Reason: LINE FLUSH Review of Systems Constitutional: weight loss, anorexia, fatigue, weakness, poor appetite, no weight gain, no fever, no chills Breasts: deferred Cardiovascular: chest pain, shortness of breath, dyspnea on exertion, high blood pressure, decreased exercise tolerance, no orthopnea, no edema, no syncope, no lightheadedness Respiratory: cough, shortness of breath, no hemoptysis Gastrointestinal: nausea, vomiting, diarrhea, no abdominal pain Genitourinary Female: no dysuria, no hematuria Rectal: no bleeding Integumentary: redness, no jaundice Neurological: no paralysis, no weakness, no convulsions, no aphasia, no change in speech, no confusion Exam - Vital Signs Vital signs: Vital Signs Pulse Ox 82 L 08/02/18 18:25 - General Appearance General appearance: well-developed, appears stated age, cachectic, other (not in distress) EENT: ATNC, PERRL Neck: Present: neck supple, trachea midline Respiratory: Clear to Ascultation, Other (R chest tube) Heart: regular, S1S2, no murmurs Gastrointestinal: Present: normoactive bowel sounds, other (ostomy noted). Absent: tenderness, distended Integumentary: other (multiple skin nodules noted) Neurologic: no focal deficit, no asterixis, alert and oriented x3 Musculoskeletal: Present: other (no edema) Results - Lab Results 08/04/18 04:29 08/04/18 04:29 Most recent lab results Calcium 8.5 mg/dL (8.4-10.2) 08/03/18 13:12 Phosphorus 9.40 mg/dL (2.5-4.5) H 08/03/18 04:34 Magnesium 1.80 mg/dL (1.7-2.3) 08/03/18 04:34 157.3 mg/dL (0.1-20.0) H 08/02/18 22:57 13 mmol/L 08/02/18 22:57 - Image Kidney/bladder ultrasound: other Assessment and Plan 1. Acute kidney injury: Vasomotor DOROTHEA in the setting of volume depletion. Continue IV fluids. CT was negative for hydro. Renal function is improving. Renal prognosis is guarded. Monitor renal function. Avoid nephrotoxic agents. Meds dosage based on GFR. 2. FEN: Hyponatremia, likely from volume depletion. Sodium is improving appropriately. Intial hyperkalemia improved. Hypokalemia, replete K. AG Metabolic acidosis, bicarbonate drip. Monitor lytes. 3. R pneumothorax: R chest tube. 4. Suspected UTI. 5. COPD: Stable. 6. Hepatitis C. 7. Neurofibromatosis.
[2018-08-03 19:00] LABS: Calcium 7.7 mg/dL (8.4-10.2)
[2018-08-03] MEDS: SODIUM BICARBONATE 150 MEQ in STERILE WATER 1,000 ML IV SCH (23:24)
[2018-08-03] MEDS: KCL 10MEQ/100ML 10 MEQ/100 ML BAG IV SCH (23:25)
[2018-08-04] MEDS: KCL 10MEQ/100ML 10 MEQ/100 ML BAG IV SCH (00:35)
[2018-08-04] MEDS: MORPHINE IV PRN ×5 (03:19→21:48)
[2018-08-04 05:02] LABS: Basophils % (Auto) 0.5 % (0.0-1.8); Eosinophils % (Auto) 1.1 % (0.0-4.3); Hematocrit 32.4 % (30.3-42.9); Hemoglobin 10.9 gm/dl (10.1-14.3); Lymphocytes # (Auto) 0.9 K/mm3 (1.2-5.4); Lymphocytes % (Auto) 21.7 % (13.4-35.0); Mean Corpuscular HGB Conc 34 % (30-34); Mean Corpuscular Volume 71 fl (79-97); Monocytes # (Auto) 0.3 K/mm3 (0.0-0.8); Monocytes % (Auto) 6.3 % (0.0-7.3); Platelet Count 147 K/mm3 (140-440); Red Blood Count 4.58 M/mm3 (3.65-5.03); Red Cell Distribution Width 17.4 % (13.2-15.2)
[2018-08-04] MEDS: PERCOCET 5/325 PO PRN ×2 (05:09→13:31)
[2018-08-04 05:22] LABS: Calcium 7.9 mg/dL (8.4-10.2)
[2018-08-04] MEDS: ROCEPHIN/NS 1 GM/50 ML 1 GM/50 ML BAG IV SCH (06:20)
[2018-08-04] MEDS: LOVENOX SUB-Q SCH (09:39)
[2018-08-04] MEDS ORDERED: MAGNESIUM SULFATE 2GM/50ML 2 GM/50 ML BAG IV ONE (10:18)
--- NOTE | 2018-08-04 10:18 | Progress Note ---
Assessment and Plan Recurrent pneumothorax with abdominal CT scan showing evidence of cystic lung disease: In the presence also of neurofibromas lesions, highly suggestive for CAPUTO. Other considerations are [id number], COPD ( alpha-1 deficiency?), LIP/f ollicular,LCDD, LCH (more common in male smokers). However with this presentation, CAPUTO is strongly suspected at this point. Tobacco abuse. Rule out associated COPD. Recommendations High resolution chest CT VEGR-D level Alpha-1 antitrypsin level and phenotype SSA/SS B Smoking cessation discussed in detail with patient Regarding chest tube management, I recommend considering the following- -If possible, consider referring patient to thoracic surgery service for VATS pleurodeses and VATS directed lung biopsy. Typically lung biopsy was diagnostic for CAPUTO - If this option is not immediately available, we them recommend clamping chest tube and wean out/remove, if no recurrence of pneumothorax or air leaks noted. She Did then directly to the thorax to surgery for the above option, as an outpatient My findings, clinical impression and differential diagnosis were discussed extensively with the patient. All questions answered. If patient has CAPUTO, long-term treatment will include smoking cessation and starting her on an mTOR agent, such as sirolimus. She will need lifelong follow-up with Pulmonary Medicine. Subjective Date of service: 08/04/18 Principal diagnosis: spontaneous recurrent pneumothorax Interval history: No events overnight. Some right-sided chest discomfort in chest tube area. No additional complaints. Short review of past medical history shows that, this is probably the fourth recurrent pneumothorax on this patient per history. She had been suffering from this process and the 20s-30s with one on the left side and 2 on the right side. She claims that this is a first time she had a chest tube (?). She also smokes half to 1 pack cigarettes per day. Has a diagnosis of neurofibromatosis but, denies similar history in the family or any family history of tuberous sclerosis Objective Vital Signs - 12hr 08/04/18 08/04/18 00:00 04:00 Temperature 98.4 F 98.0 F Respiratory 17 10 L Rate O2 Sat by Pulse 100 96 Oximetry Constitutional: no acute distress, alert Eyes: non-icteric ENT: oropharynx moist, other (poor dentition, carious teeth) Neck: supple Effort: normal, other (right chest line in position) Ascultation: Bilateral: clear Cardiovascular: regular rate and rhythm Gastrointestinal: normoactive bowel sounds, soft Integumentary: other (multiple neurofibroma lesions in the upper chest and neck) Extremities: no edema, pink and warm, pulses normal Neurologic: normal mental status, non-focal exam CBC and BMP: 08/04/18 04:29 08/04/18 04:29 Abnormal lab findings: Abnormal Labs 08/02/18 08/02/18 08/02/18 19:04 19:04 19:04 WBC 12.9 H RBC 6.11 H Hgb 14.4 H Hct 43.6 H MCV 71 L MCH 24 L RDW 18.0 H Lymph # Seg Neutrophils % 78.0 H Seg Neutrophils # 10.0 H Sodium 117 L* Potassium 6.1 H* Chloride 76.7 L Carbon Dioxide 12 L BUN 94 H Creatinine 7.1 H Glucose Lactic Acid 2.70 H* Calcium Phosphorus Magnesium Total Protein 8.7 H Urine WBC (Auto) Urine Creatinine 08/02/18 08/02/18 08/03/18 22:57 22:57 00:55 WBC RBC Hgb Hct MCV MCH RDW Lymph # Seg Neutrophils % Seg Neutrophils # Sodium 127 L D Potassium Chloride 92.5 L Carbon Dioxide 12 L BUN 88 H Creatinine 6.0 H Glucose 60 L Lactic Acid Calcium Phosphorus Magnesium Total Protein Urine WBC (Auto) 20.0 H Urine Creatinine 157.3 H 08/03/18 08/03/18 08/03/18 04:34 04:34 10:07 WBC RBC Hgb Hct MCV 71 L MCH 24 L RDW 17.4 H Lymph # Seg Neutrophils % 73.7 H Seg Neutrophils # Sodium 128 L 127 L Potassium Chloride 94.1 L 92.6 L Carbon Dioxide 12 L 13 L BUN 86 H 75 H Creatinine 5.4 H 3.9 H Glucose 106 H Lactic Acid Calcium 8.0 L Phosphorus 9.40 H Magnesium Total Protein Urine WBC (Auto) Urine Creatinine 08/03/18 08/03/18 08/04/18 13:12 18:20 04:29 WBC 4.0 L RBC Hgb Hct MCV 71 L MCH 24 L RDW 17.4 H Lymph # 0.9 L Seg Neutrophils % 70.4 H Seg Neutrophils # Sodium 128 L 126 L Potassium 3.2 L D Chloride 94.5 L 91.7 L Carbon Dioxide 15 L 14 L BUN 77 H 65 H Creatinine 3.3 H 2.3 H Glucose Lactic Acid Calcium 7.7 L Phosphorus Magnesium Total Protein Urine WBC (Auto) Urine Creatinine 08/04/18 04:29 WBC RBC Hgb Hct MCV MCH RDW Lymph # Seg Neutrophils % Seg Neutrophils # Sodium 126 L Potassium Chloride 90.5 L Carbon Dioxide BUN 54 H Creatinine Glucose Lactic Acid Calcium 7.9 L Phosphorus Magnesium 1.60 L Total Protein Urine WBC (Auto) Urine Creatinine
--- NOTE | 2018-08-04 12:09 | Cat Scan Report ---
CT CHEST WITHOUT CONTRAST: HISTORY: Recurrent pneumothorax, cystic lung disease, lymphangiomyomatosis. COMPARISON: none. TECHNIQUE: Helical CT in 1.25mm intervals without IV contrast. Sagittal and coronal reformatted images. FINDINGS: Thyroid gland: There are scattered thyroid calcifications without obvious nodule. The thyroid gland is normal size. Tracheobronchial tree: Normal. Esophagus: Normal. Heart: Normal. Pericardium: Normal. Mediastinum: Normal. Lung Ramos: There is numerous small cysts throughout both lungs. The cysts range from a few millimeters to 1.5 cm in diameter. 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 There is mild subpleural air space opacity in the posterior right lower lobe which could represent infiltrate or atelectasis. I favor atelectasis. No suspicious nodule or mass. A right Heimlich chest tube terminates near the right apex. There is a persistent small right anterior pneumothorax estimated at 5-10%. Trace right pleural fluid is noted posteriorly. Musculoskeletal: Normal. IMPRESSION: Findings consistent with lymphangiomyomatosis. Right chest tube remains in position. A small right anterior pneumothorax is estimated at 5-10%. Trace right pleural fluid. Subpleural infiltrate or atelectasis in the posterior right lower lobe.
--- NOTE | 2018-08-04 12:21 | Progress Note ---
Assessment and Plan Assessment and plan: Acute kidney injury likely due to increased output from colostomy bag, vasomotor nephropathy Spontaneous pneumothorax, acute s/p chest tube placed Hyponatremia Hyperkalemia UTI COPD, stable Hepatitis C Neurofibromatosis Hypomagnesemia Plan Continue supportive care Discussed with Pulmonary, will clamp chest tube today and repeat imaging in am Nephrology input noted Replace Magnesium May need oral replacement of electrolytes due to high output colostmy Start IV fluid, monitor kidney function, sodium, potassium Creatinine improving Nephrology following. discussed with Dr. woody Consulted pulmonary, started on IV Rocephin, follow culture DVT prophylaxis On Lovenox dISCUSSED WITH PULMONARY ALSO DISCUSSED WITH THE PATIENT. History Interval history: Patient seen and examined, no new complaints. Resting comfortably but nursing staff reports high colostomy output Hospitalist Physical - Physical exam Narrative exam: Gen: Not in acute distress, lying in bed, obese HEENT: Normocephalic, atraumatic Neck: supple, no JVD Heart: S1 and S2 reg, no murmurs, rubs or gallop Lungs: Clear, right chest tube in place,no crackles, no wheeze Abd: soft, non tender, non distended, normal BS, right lower quadrant colostomy with skin extravastion Ext: No edema, no clubbing, no cyanosis, Neuro: Awake,alert, oriented x 3, moves all ext, non focal Psych:Normal mood skin:multiple diffuse neurofibromatosis skin lesions - Constitutional Vitals: Temp Pulse Resp BP Pulse Ox 98.1 F 86 10 L 125/58 96 08/04/18 12:00 08/04/18 10:00 08/04/18 08:00 08/02/18 23:00 08/04/18 08:00 Results - Labs CBC & Chem 7: 08/04/18 04:29 08/05/18 04:58 Labs: Laboratory Last Values WBC 4.0 K/mm3 (4.5-11.0) L 08/04/18 04:29 RBC 4.58 M/mm3 (3.65-5.03) 08/04/18 04:29 Hgb 10.9 gm/dl (10.1-14.3) 08/04/18 04:29 Hct 32.4 % (30.3-42.9) 08/04/18 04:29 MCV 71 fl (79-97) L 08/04/18 04:29 MCH 24 pg (28-32) L 08/04/18 04:29 MCHC 34 % (30-34) 08/04/18 04:29 RDW 17.4 % (13.2-15.2) H 08/04/18 04:29 Plt Count 147 K/mm3 (140-440) 08/04/18 04:29 Lymph % (Auto) 21.7 % (13.4-35.0) 08/04/18 04:29 [place] % (Auto) 6.3 % (0.0-7.3) 08/04/18 04:29 Eos % (Auto) 1.1 % (0.0-4.3) 08/04/18 04:29 Baso % (Auto) 0.5 % (0.0-1.8) 08/04/18 04:29 Lymph # 0.9 K/mm3 (1.2-5.4) L 08/04/18 04:29 [place] # 0.3 K/mm3 (0.0-0.8) 08/04/18 04:29 Eos # 0.0 K/mm3 (0.0-0.4) 08/04/18 04:29 Baso # 0.0 K/mm3 (0.0-0.1) 08/04/18 04:29 Seg Neutrophils % 70.4 % (40.0-70.0) H 08/04/18 04:29 Seg Neutrophils # 2.8 K/mm3 (1.8-7.7) 08/04/18 04:29 Sodium 126 mmol/L (137-145) L 08/04/18 04:29 Potassium 3.7 mmol/L (3.6-5.0) 08/04/18 04:29 Chloride 90.5 mmol/L (98-107) L 08/04/18 04:29 Carbon Dioxide 22 mmol/L (22-30) D 08/04/18 04:29 17 mmol/L 08/04/18 04:29 BUN 54 mg/dL (7-17) H 08/04/18 04:29 1.2 mg/dL (0.7-1.2) 08/04/18 04:29 Estimated GFR 46 ml/min 08/04/18 04:29 45 % 08/04/18 04:29 Glucose 77 mg/dL (65-100) 08/04/18 04:29 Lactic Acid 1.60 mmol/L (0.7-2.0) 08/02/18 20:48 Calcium 7.9 mg/dL (8.4-10.2) L 08/04/18 04:29 Phosphorus 2.90 mg/dL (2.5-4.5) D 08/04/18 04:29 Magnesium 1.60 mg/dL (1.7-2.3) L 08/04/18 04:29 0.40 mg/dL (0.1-1.2) 08/02/18 19:04 AST 31 units/L (5-40) 08/02/18 19:04 ALT 30 units/L (7-56) 08/02/18 19:04 112 units/L (35-129) 08/02/18 19:04 8.7 g/dL (6.3-8.2) H 08/02/18 19:04 4.4 g/dL (3.9-5) 08/02/18 19:04 1.0 % 08/02/18 19:04 Sophie (Yellow) 08/02/18 22:57 Cloudy (Clear) 08/02/18 22:57 5.0 (5.0-7.0) 08/02/18 22:57 Ur Specific [place] 1.019 (1.003-1.030) 08/02/18 22:57 100 mg/dl mg/dL (Negative) 08/02/18 22:57 Neg mg/dL (Negative) 08/02/18 22:57 Neg mg/dL (Negative) 08/02/18 22:57 Neg (Negative) 08/02/18 22:57 Neg (Negative) 08/02/18 22:57 Neg (Negative) 08/02/18 22:57 < 2.0 mg/dL (<2.0) 08/02/18 22:57 Ur Leukocyte Esterase Tr (Negative) 08/02/18 22:57 20.0 /HPF (0.0-6.0) H 08/02/18 22:57 8.0 /HPF (0.0-6.0) 08/02/18 22:57 U Epithel Cells (Auto) < 1.0 /HPF (0-13.0) 08/02/18 22:57 2+ /HPF (Negative) 08/02/18 22:57 2+ /HPF 08/02/18 22:57 3+ /HPF 08/02/18 22:57 157.3 mg/dL (0.1-20.0) H 08/02/18 22:57 13 mmol/L 08/02/18 22:57 Active Medications - Current Medications Current Medications: Generic Name Dose Route Start Last Admin Trade Name Freq PRN Reason Stop Dose Admin Acetaminophen 650 mg 08/02/18 23:10 Tylenol PO Q4H PRN Pain MILD(1-3)/Fever >100.5/COLLAZO Enoxaparin Sodium 30 mg 08/03/18 10:00 08/04/18 09:39 Lovenox SUB-Q 30 mg QDAY DUSTIN Administration Ceftriaxone Sodium 1 gm in 50 mls @ 100 mls/hr 08/03/18 06:00 08/04/18 06:20 Rocephin/Ns 1 Gm/50 Ml IV 100 mls/hr Q24H DUSTIN Administration Protocol Sodium Bicarbonate 150 meq/ 1,150 mls @ 100 mls/hr 08/03/18 23:00 08/03/18 23:24 Sterile Water IV 100 mls/hr DIRECT DUSTIN Administration Morphine Sulfate 2 mg 08/03/18 10:30 08/04/18 11:33 Morphine IV 2 mg Q4H PRN Administration Pain, Moderate (4-6) Ondansetron HCl 4 mg 08/02/18 23:10 Zofran IV Q8H PRN Nausea And Vomiting Oxycodone/Acetaminophen 1 tab 08/02/18 23:10 08/04/18 05:09 Percocet 5/325 PO 1 tab Q6H PRN Administration Pain, Moderate (4-6) Sodium Chloride 10 ml 08/03/18 10:00 08/03/18 21:30 Sodium Chloride Flush Syringe 10 Ml IV 10 ml BID DUSTIN Administration Sodium Chloride 10 ml 08/02/18 23:10 Sodium Chloride Flush Syringe 10 Ml IV PRN PRN LINE FLUSH Sodium Chloride 1 gm 08/04/18 11:00 Sodium Chloride PO TID DUSTIN Nutrition/Malnutrition Assess - Dietary Evaluation Nutrition/Malnutrition Findings: Nutrition Notes Start: 08/03/18 16:05 Freq: Status: Active Protocol: Document 08/03/18 16:05 MARCO (Rec: 08/03/18 16:17 MARCO [email or web address]) Nutrition Notes 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 She reports good appetite and consumed 100 % of lunch today. She reports increased output from colostomy bag (says she has to empty bag frequently at home) . Output is watery consistency. Burn Absent Trauma Absent #1 Nutrition Diagnosis Underweight Etiology hx of extensive GI surgery during previous admission As Evidenced by Signs and Symptoms BMI <18.5 Is patient on ventilator? No Is Patient Ambulatory and/or Out of Bed No REE-([place]-confined to bed) 1111.752 Kcal/Kg value to use for calculation 40 Approximate Energy Requirements Using 1580 kcal/Kg Calculation Used for Recommendations Kcal/kg Additional Notes Pro needs 1.2-1.5g/k-59g/ day Fluid needs 1ml/kcal Nutrition Intervention Change Diet Order: Continue current diet as tolerated Goal #1 PO tolerance Goal #2 PO intakes to meet 90-100% energy and pro needs Goal #3 Wt maintenance and/or gain Follow-Up By: 08/05/18 Additional Comments F/U: intakes, colostomy output , renal function
[2018-08-04] MEDS: SODIUM CHLORIDE FLUSH SYRINGE 10 ML IV SCH ×2 (13:19→21:47)
[2018-08-04] MEDS: SODIUM CHLORIDE PO SCH ×3 (13:19→21:47)
[2018-08-04] MEDS ORDERED: MAGNESIUM SULFATE 1 GM in NACL 0.9% 50 ML IV ONE (13:21)
--- NOTE | 2018-08-04 13:49 | Progress Note ---
Assessment and Plan 1. Acute kidney injury: Vasomotor DOROTHEA in the setting of volume depletion. Continue IV fluids. CT was negative for hydro. Renal function is improving. Monitor renal function. Avoid nephrotoxic agents. Meds dosage based on GFR. 2. FEN: Hyponatremia, likely from volume depletion. Sodium is improving appropriately. Add Salt tablets. Intial hyperkalemia improved. Hypokalemia, replete K. AG Metabolic acidosis, bicarbonate drip. Monitor lytes. 3. R pneumothorax: R chest tube. 4. Suspected UTI. 5. COPD: Stable. 6. Hepatitis C. 7. Neurofibromatosis. Subjective Date of service: 08/04/18 Principal diagnosis: spontaneous recurrent pneumothorax Interval history: Patient was seen and examined at the bedside. Objective - Vital Signs Vital signs: Vital Signs - 12hr 08/04/18 08/04/18 08/04/18 04:00 08:00 10:00 Temperature 98.0 F Pulse Rate 86 Respiratory 10 L 10 L Rate O2 Sat by Pulse 96 96 Oximetry 08/04/18 12:00 Temperature 98.1 F Pulse Rate Respiratory Rate O2 Sat by Pulse Oximetry - General Appearance General appearance: well-developed, appears stated age, other (no distress, appears emaciated) EENT: ATNC, other (multiple nodules noted) Neck: supple Respiratory: Present: Clear to Ascultation, Other (R sided chest tube noted) Cardiology: regular, S1S2, no murmurs Gastrointestinal: normoactive bowel sounds, other (ostomy noted) Integumentary: erythema (abdomen) Neurologic: no focal deficit, no asterixis, alert and oriented x3 Musculoskeletal: other (no edema) Psychiatric: cooperative - Lab 08/04/18 04:29 08/04/18 04:29 Most recent lab results Calcium 7.9 mg/dL (8.4-10.2) L 08/04/18 04:29 Phosphorus 2.90 mg/dL (2.5-4.5) D 08/04/18 04:29 Magnesium 1.60 mg/dL (1.7-2.3) L 08/04/18 04:29 157.3 mg/dL (0.1-20.0) H 08/02/18 22:57 13 mmol/L 08/02/18 22:57 Medications & Allergies - Medications Allergies/Adverse Reactions: Allergies NSAIDS (Non-Steroidal Anti-Inflamma Allergy (Verified 04/08/18 03:20) Unknown Home Medications: Home Medications Medication Instructions Recorded Confirmed Last Taken Type Citalopram Hydrobromide 40 mg PO QDAY 07/31/17 04/19/18 04/15/18 History [Citalopram HBr] Gabapentin [Neurontin] 800 mg PO 5XD 07/31/17 04/19/18 04/15/18 History Losartan 50 mg PO QDAY 07/31/17 04/19/18 04/15/18 History Tizanidine HCl [Zanaflex] 2 mg PO QDAY 07/31/17 04/19/18 04/15/18 History busPIRone [Buspar] 5 mg PO BID 07/31/17 04/19/18 04/15/18 History ALPRAZolam [Xanax TAB] 0.25 mg PO Q8H PRN tablet 06/10/18 Unknown Rx Acetaminophen [Acetaminophen 650 mg SC Q4H PRN supp.rect 06/10/18 Unknown Rx SUPPOS] Arformoterol Nebu [Brovana Nebu] 15 mcg IH Q12HRT ml 06/10/18 Unknown Rx Benzocaine/Mentho [Cepacol X 1 each MM Q2HR PRN packet 06/10/18 Unknown Rx Strength] Budesonide [Pulmicort Respules] 0.5 mg IH Q12HRT nebu 06/10/18 Unknown Rx Gabapentin [Neurontin] 800 mg PO TID capsule 06/10/18 Unknown Rx HYDROcodone/APAP 5-325 [[place] 1 each PO Q4H PRN tablet 06/10/18 Unknown Rx 5-325 mg TAB] Loperamide [Imodium] 2 mg PO Q2H PRN capsule 06/10/18 Unknown Rx Metoprolol [Lopressor TAB] 12.5 mg PO BID tablet 06/10/18 Unknown Rx Mirtazapine [Remeron 15mg TAB] 15 mg PO QHS tablet 06/10/18 Unknown Rx Ondansetron [Zofran INJ] 4 mg IV Q4H PRN vial 06/10/18 Unknown Rx fentaNYL [Duragesic] 25 mcg TD Q3D patch 06/10/18 Unknown Rx hydrALAZINE [Apresoline INJ] 10 mg IV Q4HR PRN vial 06/10/18 Unknown Rx methOCARBAMOL [Robaxin TAB] 500 mg PO Q6H PRN #14 tablet 07/27/18 Unknown Rx oxyCODONE /ACETAMINOPHEN [Percocet 1 tab PO Q4HR PRN #12 tab 07/27/18 Unknown Rx 5/325] Active Medications: Generic Name Dose Route Start Last Admin Trade Name Freq PRN Reason Stop Dose Admin Acetaminophen 650 mg 08/02/18 23:10 Tylenol PO Q4H PRN Pain MILD(1-3)/Fever >100.5/COLLAZO Enoxaparin Sodium 30 mg 08/03/18 10:00 08/04/18 09:39 Lovenox SUB-Q 30 mg QDAY DUSTIN Administration Ceftriaxone Sodium 1 gm in 50 mls @ 100 mls/hr 08/03/18 06:00 08/04/18 06:20 Rocephin/Ns 1 Gm/50 Ml IV 100 mls/hr Q24H DUSTIN Administration Protocol Sodium Bicarbonate 150 meq/ 1,150 mls @ 100 mls/hr 08/03/18 23:00 08/03/18 23:24 Sterile Water IV 100 mls/hr DIRECT DUSTIN Administration Magnesium Sulfate 1 gm/ Sodium 52 mls @ 52 mls/hr 08/04/18 13:21 08/04/18 13:35 Chloride IV 08/04/18 14:20 52 mls/hr ONCE ONE Administration Morphine Sulfate 2 mg 08/03/18 10:30 08/04/18 11:33 Morphine IV 2 mg Q4H PRN Administration Pain, Moderate (4-6) Ondansetron HCl 4 mg 08/02/18 23:10 Zofran IV Q8H PRN Nausea And Vomiting Oxycodone/Acetaminophen 1 tab 08/02/18 23:10 08/04/18 13:31 Percocet 5/325 PO 1 tab Q6H PRN Administration Pain, Moderate (4-6) Sodium Chloride 10 ml 08/03/18 10:00 08/04/18 13:19 Sodium Chloride Flush Syringe 10 Ml IV 10 ml BID DUSTIN Administration Sodium Chloride 10 ml 08/02/18 23:10 Sodium Chloride Flush Syringe 10 Ml IV PRN PRN LINE FLUSH Sodium Chloride 1 gm 08/04/18 11:00 08/04/18 13:21 Sodium Chloride PO 1 gm TID DUSTIN Administration
[2018-08-05] MEDS: MORPHINE IV PRN ×3 (02:05→13:34)
[2018-08-05] MEDS: ROCEPHIN/NS 1 GM/50 ML 1 GM/50 ML BAG IV SCH (05:16)
[2018-08-05] MEDS: SODIUM BICARBONATE 150 MEQ in STERILE WATER 1,000 ML IV SCH (05:38)
[2018-08-05 06:02] LABS: BUN/Creatinine Ratio 48; Blood Urea Nitrogen 19 mg/dL (7-17); Calcium 8.2 mg/dL (8.4-10.2); Hemolysis Index 5
[2018-08-05] MEDS: PERCOCET 5/325 PO PRN (06:22)
--- NOTE | 2018-08-05 08:58 | Progress Note ---
Assessment and Plan 1. Acute kidney injury: Vasomotor DOROTHEA in the setting of volume depletion. Continue IV fluids. CT was negative for hydro. Renal function is much better. Monitor renal function. Avoid nephrotoxic agents. Meds dosage based on GFR. 2. FEN: Hyponatremia, likely from volume depletion. Sodium is improving appropriately. Add Salt tablets. Intial hyperkalemia improved. Hypokalemia, replete K. Replete Mg. AG Metabolic acidosis, bicarbonate drip. Monitor lytes. 3. R pneumothorax: R chest tube. 4. Suspected UTI. 5. COPD: Stable. 6. Hepatitis C. 7. Neurofibromatosis. Subjective Date of service: 08/05/18 Principal diagnosis: spontaneous recurrent pneumothorax Interval history: Patient was seen and examined at the bedside. Doing ok. Objective - Vital Signs Vital signs: Vital Signs - 12hr 08/04/18 08/05/18 08/05/18 22:00 00:00 04:00 Temperature 98.2 F Pulse Rate 78 Respiratory 12 14 Rate O2 Sat by Pulse 97 97 Oximetry 08/05/18 08/05/18 07:00 08:00 Temperature 98.2 F Pulse Rate Respiratory 14 Rate O2 Sat by Pulse 97 Oximetry - General Appearance General appearance: well-developed, appears stated age, other (not in distress) EENT: ATNC, PERRL, mucous membranes moist, hearing intact, vision intact Neck: supple Respiratory: Present: Clear to Ascultation, Other (R side chest tube) Cardiology: regular, S1S2, no murmurs Gastrointestinal: normoactive bowel sounds, no tenderness, no distended, other (ostomy noted, gold catheter) Integumentary: erythema (abdomen), other (multiple skin nodules over the face) Neurologic: no focal deficit, no asterixis Musculoskeletal: other (no edema) Psychiatric: cooperative - Lab 08/04/18 04:29 08/05/18 04:58 Most recent lab results Calcium 8.2 mg/dL (8.4-10.2) L 08/05/18 04:58 Phosphorus 2.90 mg/dL (2.5-4.5) D 08/04/18 04:29 Magnesium 1.60 mg/dL (1.7-2.3) L 08/05/18 04:58 157.3 mg/dL (0.1-20.0) H 08/02/18 22:57 13 mmol/L 08/02/18 22:57 Medications & Allergies - Medications Allergies/Adverse Reactions: Allergies NSAIDS (Non-Steroidal Anti-Inflamma Allergy (Verified 04/08/18 03:20) Unknown Home Medications: Home Medications Medication Instructions Recorded Confirmed Last Taken Type Citalopram Hydrobromide 40 mg PO QDAY 07/31/17 04/19/18 04/15/18 History [Citalopram HBr] Gabapentin [Neurontin] 800 mg PO 5XD 07/31/17 04/19/18 04/15/18 History Losartan 50 mg PO QDAY 07/31/17 04/19/18 04/15/18 History Tizanidine HCl [Zanaflex] 2 mg PO QDAY 07/31/17 04/19/18 04/15/18 History busPIRone [Buspar] 5 mg PO BID 07/31/17 04/19/18 04/15/18 History ALPRAZolam [Xanax TAB] 0.25 mg PO Q8H PRN tablet 06/10/18 Unknown Rx Acetaminophen [Acetaminophen 650 mg MA Q4H PRN supp.rect 06/10/18 Unknown Rx SUPPOS] Arformoterol Nebu [Brovana Nebu] 15 mcg IH Q12HRT ml 06/10/18 Unknown Rx Benzocaine/Mentho [Cepacol X 1 each MM Q2HR PRN packet 06/10/18 Unknown Rx Strength] Budesonide [Pulmicort Respules] 0.5 mg IH Q12HRT nebu 06/10/18 Unknown Rx Gabapentin [Neurontin] 800 mg PO TID capsule 06/10/18 Unknown Rx HYDROcodone/APAP 5-325 [[place] 1 each PO Q4H PRN tablet 06/10/18 Unknown Rx 5-325 mg TAB] Loperamide [Imodium] 2 mg PO Q2H PRN capsule 06/10/18 Unknown Rx Metoprolol [Lopressor TAB] 12.5 mg PO BID tablet 06/10/18 Unknown Rx Mirtazapine [Remeron 15mg TAB] 15 mg PO QHS tablet 06/10/18 Unknown Rx Ondansetron [Zofran INJ] 4 mg IV Q4H PRN vial 06/10/18 Unknown Rx fentaNYL [Duragesic] 25 mcg TD Q3D patch 06/10/18 Unknown Rx hydrALAZINE [Apresoline INJ] 10 mg IV Q4HR PRN vial 06/10/18 Unknown Rx methOCARBAMOL [Robaxin TAB] 500 mg PO Q6H PRN #14 tablet 07/27/18 Unknown Rx oxyCODONE /ACETAMINOPHEN [Percocet 1 tab PO Q4HR PRN #12 tab 07/27/18 Unknown Rx 5/325] Active Medications: Generic Name Dose Route Start Last Admin Trade Name Freq PRN Reason Stop Dose Admin Acetaminophen 650 mg 08/02/18 23:10 Tylenol PO Q4H PRN Pain MILD(1-3)/Fever >100.5/COLLAZO Enoxaparin Sodium 30 mg 08/03/18 10:00 08/04/18 09:39 Lovenox SUB-Q 30 mg QDAY DUSTIN Administration Ceftriaxone Sodium 1 gm in 50 mls @ 100 mls/hr 08/03/18 06:00 08/05/18 05:16 Rocephin/Ns 1 Gm/50 Ml IV 100 mls/hr Q24H DUSTIN Administration Protocol Sodium Bicarbonate 150 meq/ 1,150 mls @ 100 mls/hr 08/03/18 23:00 08/05/18 05:38 Sterile Water IV 100 mls/hr DIRECT DUSTIN Administration Magnesium Sulfate 2 gm/ Sodium 54 mls @ 52 mls/hr 08/05/18 09:00 Chloride IV 08/05/18 10:02 ONCE ONE Potassium Chloride 10 meq in 100 mls @ 100 mls/hr 08/05/18 09:00 Kcl 10meq/100ml IV 08/05/18 12:59 Q1H DUSTIN Morphine Sulfate 2 mg 08/03/18 10:30 08/05/18 02:05 Morphine IV 2 mg Q4H PRN Administration Pain, Moderate (4-6) Ondansetron HCl 4 mg 08/02/18 23:10 Zofran IV Q8H PRN Nausea And Vomiting Oxycodone/Acetaminophen 1 tab 08/02/18 23:10 08/05/18 06:22 Percocet 5/325 PO 1 tab Q6H PRN Administration Pain, Moderate (4-6) Sodium Chloride 10 ml 08/03/18 10:00 08/04/18 21:47 Sodium Chloride Flush Syringe 10 Ml IV 10 ml BID DUSTIN Administration Sodium Chloride 10 ml 08/02/18 23:10 08/05/18 05:34 Sodium Chloride Flush Syringe 10 Ml IV 10 ml PRN PRN Administration LINE FLUSH Sodium Chloride 1 gm 08/04/18 11:00 08/04/18 21:47 Sodium Chloride PO 1 gm TID DUSTIN Administration
[2018-08-05] MEDS ORDERED: MAGNESIUM SULFATE 2 GM in NACL 0.9% 50 ML IV ONE (09:00)
--- NOTE | 2018-08-05 09:10 | Progress Note ---
Assessment and Plan Recurrent pneumothorax with abdominal CT scan showing evidence of cystic lung disease: In the presence also of neurofibromas lesions, highly suggestive for CAPUTO. Other considerations are [id number], COPD ( alpha-1 deficiency?), LIP/f ollicular,LCDD, LCH (more common in male smokers). However with this presentation, CAPUTO is strongly suspected at this point. Tobacco abuse. Rule out associated COPD. Recommendations High resolution chest CT very supportive of CAPUTO, review. Also with persistent 10% pneumothorax, despite current chest tube. At this point, I think she will benefit from being referred to thoracic surgery, she will need larger chest tube drainage, pleurodeses and will benefit from lung biopsy through VATS procedure VEGR-D level Alpha-1 antitrypsin level and phenotype, to rule out concurrent alpha-1 deficie ncy SSA/SS B Smoking cessation discussed in detail with patient My findings, clinical impression and differential diagnosis were discussed extensively with the patient. All questions answered. If patient has CAPUTO, long-term treatment will include smoking cessation and starting her on an mTOR agent, such as sirolimus. She will need lifelong follow-up with Pulmonary Medicine. Subjective Date of service: 08/05/18 Principal diagnosis: spontaneous recurrent pneumothorax Objective Vital Signs - 12hr 08/04/18 08/05/18 08/05/18 22:00 00:00 04:00 Temperature 98.2 F Pulse Rate 78 Respiratory 12 14 Rate O2 Sat by Pulse 97 97 Oximetry 08/05/18 08/05/18 07:00 08:00 Temperature 98.2 F Pulse Rate Respiratory 14 Rate O2 Sat by Pulse 97 Oximetry Constitutional: no acute distress, alert Eyes: non-icteric ENT: oropharynx moist, other (poor dentition, carious teeth) Neck: supple Effort: normal, other (right chest line in position) Ascultation: Bilateral: clear Cardiovascular: regular rate and rhythm Gastrointestinal: normoactive bowel sounds, soft Integumentary: other (multiple neurofibroma lesions in the upper chest and neck) Extremities: no edema, pink and warm, pulses normal Neurologic: normal mental status, non-focal exam CBC and BMP: 08/04/18 04:29 08/05/18 04:58 Abnormal lab findings: Abnormal Labs 08/02/18 08/02/18 08/02/18 19:04 19:04 19:04 WBC 12.9 H RBC 6.11 H Hgb 14.4 H Hct 43.6 H MCV 71 L MCH 24 L RDW 18.0 H Lymph # Seg Neutrophils % 78.0 H Seg Neutrophils # 10.0 H Sodium 117 L* Potassium 6.1 H* Chloride 76.7 L Carbon Dioxide 12 L BUN 94 H Creatinine 7.1 H Glucose Lactic Acid 2.70 H* Calcium Phosphorus Magnesium Total Protein 8.7 H Urine WBC (Auto) Urine Creatinine 08/02/18 08/02/18 08/03/18 22:57 22:57 00:55 WBC RBC Hgb Hct MCV MCH RDW Lymph # Seg Neutrophils % Seg Neutrophils # Sodium 127 L D Potassium Chloride 92.5 L Carbon Dioxide 12 L BUN 88 H Creatinine 6.0 H Glucose 60 L Lactic Acid Calcium Phosphorus Magnesium Total Protein Urine WBC (Auto) 20.0 H Urine Creatinine 157.3 H 08/03/18 08/03/18 08/03/18 04:34 04:34 10:07 WBC RBC Hgb Hct MCV 71 L MCH 24 L RDW 17.4 H Lymph # Seg Neutrophils % 73.7 H Seg Neutrophils # Sodium 128 L 127 L Potassium Chloride 94.1 L 92.6 L Carbon Dioxide 12 L 13 L BUN 86 H 75 H Creatinine 5.4 H 3.9 H Glucose 106 H Lactic Acid Calcium 8.0 L Phosphorus 9.40 H Magnesium Total Protein Urine WBC (Auto) Urine Creatinine 08/03/18 08/03/18 08/04/18 13:12 18:20 04:29 WBC 4.0 L RBC Hgb Hct MCV 71 L MCH 24 L RDW 17.4 H Lymph # 0.9 L Seg Neutrophils % 70.4 H Seg Neutrophils # Sodium 128 L 126 L Potassium 3.2 L D Chloride 94.5 L 91.7 L Carbon Dioxide 15 L 14 L BUN 77 H 65 H Creatinine 3.3 H 2.3 H Glucose Lactic Acid Calcium 7.7 L Phosphorus Magnesium Total Protein Urine WBC (Auto) Urine Creatinine 08/04/18 08/05/18 04:29 04:58 WBC RBC Hgb Hct MCV MCH RDW Lymph # Seg Neutrophils % Seg Neutrophils # Sodium 126 L 131 L Potassium 3.0 L Chloride 90.5 L 88.2 L Carbon Dioxide BUN 54 H 19 H Creatinine 0.4 L D Glucose 144 H Lactic Acid Calcium 7.9 L 8.2 L Phosphorus Magnesium 1.60 L 1.60 L Total Protein Urine WBC (Auto) Urine Creatinine
[2018-08-05] MEDS: KCL 10MEQ/100ML 10 MEQ/100 ML BAG IV SCH ×2 (09:37→13:25)
[2018-08-05] MEDS: SODIUM CHLORIDE FLUSH SYRINGE 10 ML IV SCH (09:38)
[2018-08-05] MEDS: LOVENOX SUB-Q SCH (09:38)
[2018-08-05] MEDS: SODIUM CHLORIDE PO SCH (09:39)
--- NOTE | 2018-08-05 09:48 | Discharge Summary ---
Providers - Providers Date of Admission: 08/02/18 23:10 Attending physician: ZOLTAN TINSLEY MD 08/02/18 22:19 Consult to Physician [CONS] Stat Comment: Dr. Awan spoke with Dr. Davis @ [id number] Consulting Provider: YIFAN SHAFFER Physician Instructions: Reason For Exam: renal failure 08/02/18 23:10 Consult to Physician [CONS] Routine Comment: Consulting Provider: YVONNE DAVISON Physician Instructions: Reason For Exam: ptx 08/03/18 08:57 Consult to Wound/ET Nurse [CONS] Urgent Reason For Exam: ostomy evaluation Primary care physician: DAVID AMATO MD Hospitalization Reason for admission: pneumothorax Condition: Stable Hospital course: 58 -year-old woman with a history of hypertension, neurofibromatosis, COPD, hepatitis C, chronic back pain comes emergency room with complaints of headache and abdominal pain which is not resolved. The headache was in the frontal area which she describes as sharp, with intermittent for a few seconds, no radiation, cannot identify exacerbating or relieving factors. Abdominal pain was in the epigastric area sharp,, intensity 6/10, no radiation, now resolved. She also complained of increased output from her colostomy bag. In the emergency room she was found to have a pneumothorax on chest x-ray, chest tube was placed. Patient was seen by Pulmonary with the following recommendation as noted below. This was discussed with patient and she was agreeable for transfer for possible VATS evaluation by thoracic surgery Recommendations High resolution chest CT very supportive of CAPUTO, review. Also with persistent 10% pneumothorax, despite current chest tube. At this point, I think she will benefit from being referred to thoracic surgery, she will need larger chest tube drainage, pleurodeses and will benefit from lung biopsy through VATS procedure VEGR-D level Alpha-1 antitrypsin level and phenotype, to rule out concurrent alpha-1 deficiency SSA/SS B Smoking cessation discussed in detail with patient She will need lifelong follow-up with Pulmonary Medicine. Discharge diagnosis Recurrent pneumothorax with abdominal CT scan showing evidence of cystic lung disease: In the presence also of neurofibromas lesions, highly suggestive for CAPUTO. Other considerations are [id number], COPD ( alpha-1 deficiency?), LIP/follicular,LCDD, LCH (more common in male smokers). Tobacco abuse. extensive counselling provided on need to quit >15mins Rule out associated COPD. Acute kidney injury likely due to increased output from colostomy bag, vasomotor nephropathy Hyponatremia Hyperkalemia UTI COPD, stable Hepatitis C Neurofibromatosis Hypomagnesemia Disposition: DC/TX-02 SHRT-TRM GEN HOSP IP Time spent for discharge: 35 mins Core Measure Documentation - Palliative Care Palliative Care/ Comfort Measures: Not Applicable - Core Measures Any of the following diagnoses?: none Exam - Physical Exam Narrative exam: Gen: Not in acute distress, lying in bed, obese HEENT: Normocephalic, atraumatic Neck: supple, no JVD Heart: S1 and S2 reg, no murmurs, rubs or gallop Lungs: Clear, right chest tube in place,no crackles, no wheeze Abd: soft, non tender, non distended, normal BS, right lower quadrant colostomy with skin extravastion Ext: No edema, no clubbing, no cyanosis, Neuro: Awake,alert, oriented x 3, moves all ext, non focal Psych:Normal mood skin:multiple diffuse neurofibromatosis skin lesions - Constitutional Vitals: Temp Pulse Resp BP Pulse Ox 98.2 F 78 14 125/58 97 08/05/18 07:00 08/04/18 22:00 08/05/18 08:00 08/02/18 23:00 08/05/18 08:00 Plan Follow up with: JEFFREY HUYNH MD [Referring] - 3-5 Days
[2018-08-05] MEDS ORDERED: MAGNESIUM SULFATE 2GM/50ML 2 GM/50 ML BAG IV ONE (14:00)
== END 2018-08-05 14:30 | disposition short-term general hospital (02) | DRG 199 ==
LOC: ED 17:58 → MERGE 23:10 → IMCU 23:10
PROVIDERS: ADMIT Internal Medicine; ATTEND Internal Medicine
PROC: 0W9930Z Drainage of Right Pleural Cavity with Drainage Device, Percutaneous Approach (ICD-10-PCS; principal; 2018-08-02)
DX: J93.11 Primary spontaneous pneumothorax (principal); N17.0 Acute kidney failure with tubular necrosis; E87.1 Hypo-osmolality and hyponatremia; N39.0 Urinary tract infection, site not specified; K94.03 Colostomy malfunction; F32.9 Major depressive disorder, single episode, unspecified; E87.5 Hyperkalemia; G89.29 Other chronic pain; E86.0 Dehydration; E83.42 Hypomagnesemia; J98.4 Other disorders of lung; Y83.3 Surgical operation with formation of external stoma as the cause of abnormal reaction of the patient, or of later complication, without mention of misadventure at the time of the procedure; F17.210 Nicotine dependence, cigarettes, uncomplicated; B19.20 Unspecified viral hepatitis C without hepatic coma; Z82.49 Family history of ischemic heart disease and other diseases of the circulatory system; Z90.49 Acquired absence of other specified parts of digestive tract; Z90.710 Acquired absence of both cervix and uterus; Z88.8 Allergy status to other drugs, medicaments and biological substances; Z79.899 Other long term (current) drug therapy; Z79.01 Long term (current) use of anticoagulants; Q85.09 Other neurofibromatosis; I25.2 Old myocardial infarction; Z71.6 Tobacco abuse counseling; Y92.098 Other place in other non-institutional residence as the place of occurrence of the external cause
CPT/HCPCS: 36415; 70450; 71045; 71250; 74176; 80048; 80053; 81001; 82140; 82570; 83735; 84100; 84300; 85025; 86235; 87040; 87086; 93005; 93010; 96374; 96375; 99291; 99406; G0378; J0696; J1650; J1815; J2270; J2543; J3475; J3480; J7030; J7050

== ENCOUNTER 2018-08-31 08:50 | Inpatient (IN) | payer MEDICARE, OTHER ==
[2018-08-31] MEDS ORDERED: NACL 0.9% 1000 ML IV ONE (09:40)
--- NOTE | 2018-08-31 09:53 | Emergency Department Report ---
HPI - General Chief Complaint: Altered Mental Status Time Seen by Provider: 08/31/18 09:40 - HPI HPI: Room 7 The patient is a 58-year-old female presenting with chief complaint of altered mental status. Per EMS the patient was found on the floor with altered mental status. EMS states family reported the patient was not behaving like herself and the last known well time is unknown. Patient initially denied complaints than states she has lower abdominal pain which is chronic for her. Patient admits to using oxycodone Location: [See above] Duration: [See above] Quality: [See above] Severity: [See above] Modifying factors: [see above] Context: [see above] Mode of transportation: [not driving] ED Past Medical Hx - Past Medical History Hx Hypertension: Yes - Surgical History Additional Surgical History: Colostomy - Family History Family history: no significant - Social History Smoking Status: Unknown if ever smoked - Medications Home Medications: Home Medications Medication Instructions Recorded Confirmed Last Taken Type Metoprolol [Lopressor] 25 mg PO BID 08/31/18 08/31/18 Unknown History Oxycodone HCl [oxyCODONE] 10 mg PO Q4H PRN 08/31/18 08/31/18 Unknown History metroNIDAZOLE [Flagyl] 500 mg PO Q8HR 08/31/18 08/31/18 Unknown History ED Review of Systems ROS: Stated complaint: AMS Other details as noted in HPI Comment: Unobtainable due to pts medical conditions Physical Exam - Physical Exam Vital Signs: Vital Signs 08/31/18 08/31/18 09:21 09:36 Temperature 97.7 F Pulse Rate 81 Respiratory 16 14 Rate Blood Pressure 72/48 [Left] O2 Sat by Pulse 95 Oximetry Physical Exam: GENERAL: The patient is well-developed well-nourished female lying on a short she is sleepy and/or under the influence of sedating medication. [] HEENT: Normocephalic. Atraumatic. Extraocular motions are intact. Patient has moist mucous membranes. NECK: Supple. Trachea midline CHEST/LUNGS: Clear to auscultation. There is no respiratory distress noted. HEART/CARDIOVASCULAR: Regular. There is no tachycardia. There is no gallop rub or murmur. ABDOMEN: Abdomen is soft, nontender. Patient has normal bowel sounds. There is no abdominal distention. SKIN: There is no rash. There is no edema. There is no diaphoresis. NEURO: The patient is awake, but not alert. Patient often does not finish her statements as she falls asleep. The patient is cooperative with the neurologic exam. The patient has no focal neurologic deficits. The patient has normal speech. Cranial nerves II through XII grossly intact, no drift. Moves all extremities MUSCULOSKELETAL: There is no evidence of acute injury. ED Course Vital Signs 08/31/18 08/31/18 09:21 09:36 Temperature 97.7 F Pulse Rate 81 Respiratory 16 14 Rate Blood Pressure 72/48 [Left] O2 Sat by Pulse 95 Oximetry - Consultations Consultation #1: 08/31/18 12:14 Case discussed with shoe cutter Dr. Carrillo- recommends administering Kayexalate and once other anti-hyperkalemic meds. Recommends placing Ward cat heter ED Medical Decision Making - Lab Data Result diagrams: 08/31/18 09:47 08/31/18 09:47 Laboratory Tests 08/31/18 08/31/18 08/31/18 09:47 09:47 09:47 WBC 15.2 H RBC 4.69 Hgb 10.8 Hct 34.4 MCV 73 L MCH 23 L MCHC 31 RDW 19.3 H Plt Count 365 Lymph % (Auto) 6.2 L [place] % (Auto) 6.4 Eos % (Auto) 0.0 Baso % (Auto) 0.3 Lymph # 0.9 L [place] # 1.0 H Eos # 0.0 Baso # 0.0 Seg Neutrophils % 87.1 H Seg Neutrophils # 13.2 H Sodium 121 L Potassium 6.5 H* Chloride 76.3 L Carbon Dioxide 18 L Anion Gap 33 BUN 90 H Creatinine 7.1 H Estimated GFR 6 BUN/Creatinine Ratio 13 Glucose 98 Lactic Acid 0.80 Calcium 9.6 Total Bilirubin 0.40 AST 63 H ALT 47 Alkaline Phosphatase 113 Ammonia Troponin T 0.021 NT-Pro-B Natriuret Pep Total Protein 7.7 Albumin 3.6 L Albumin/Globulin Ratio 0.9 TSH Free T4 Urine Color Urine Turbidity Urine pH Ur Specific [place] Urine Protein Urine Glucose (UA) Urine Ketones Urine Blood Urine Nitrite Urine Bilirubin Urine Urobilinogen Ur Leukocyte Esterase Urine WBC (Auto) Urine RBC (Auto) U Epithel Cells (Auto) Plasma/Serum Alcohol 08/31/18 08/31/18 08/31/18 09:47 09:47 09:47 WBC RBC Hgb Hct MCV MCH MCHC RDW Plt Count Lymph % (Auto) [place] % (Auto) Eos % (Auto) Baso % (Auto) Lymph # [place] # Eos # Baso # Seg Neutrophils % Seg Neutrophils # Sodium Potassium Chloride Carbon Dioxide Anion Gap BUN Creatinine Estimated GFR BUN/Creatinine Ratio Glucose Lactic Acid Calcium Total Bilirubin AST ALT Alkaline Phosphatase Ammonia 36.0 Troponin T NT-Pro-B Natriuret Pep Total Protein Albumin Albumin/Globulin Ratio TSH 0.485 Free T4 1.52 H Urine Color Urine Turbidity Urine pH Ur Specific [place] Urine Protein Urine Glucose (UA) Urine Ketones Urine Blood Urine Nitrite Urine Bilirubin Urine Urobilinogen Ur Leukocyte Esterase Urine WBC (Auto) Urine RBC (Auto) U Epithel Cells (Auto) Plasma/Serum Alcohol < 0.01 08/31/18 08/31/18 09:47 10:17 WBC RBC Hgb Hct MCV MCH MCHC RDW Plt Count Lymph % (Auto) [place] % (Auto) Eos % (Auto) Baso % (Auto) Lymph # [place] # Eos # Baso # Seg Neutrophils % Seg Neutrophils # Sodium Potassium Chloride Carbon Dioxide Anion Gap BUN Creatinine Estimated GFR BUN/Creatinine Ratio Glucose Lactic Acid Calcium Total Bilirubin AST ALT Alkaline Phosphatase Ammonia Troponin T NT-Pro-B Natriuret Pep 1077 H Total Protein Albumin Albumin/Globulin Ratio TSH Free T4 Urine Color Sophie Urine Turbidity Cloudy Urine pH 5.0 Ur Specific [place] 1.018 Urine Protein 30 mg/dl Urine Glucose (UA) Neg Urine Ketones Neg Urine Blood Neg Urine Nitrite Neg Urine Bilirubin Neg Urine Urobilinogen < 2.0 Ur Leukocyte Esterase Neg Urine WBC (Auto) 1.0 Urine RBC (Auto) 1.0 U Epithel Cells (Auto) 1.0 Plasma/Serum Alcohol - Radiology Data Radiology results: report reviewed (CT head, CT abdomen and pelvis), image reviewed (CT head, CT abdomen and pelvis) - Differential Diagnosis substance abuse, ICH, electrolyte imbalance, Critical care attestation.: If time is entered above; I have spent that time in minutes in the direct care of this critically ill patient, excluding procedure time. ED Disposition Clinical Impression: Acute renal failure, Syncope, Hyperkalemia, Altered mental status, Hyponatremia Disposition: OP ADMIT IP TO THIS HOSP Is pt being admited?: Yes Does the pt Need Aspirin: No Condition: Fair Instructions: Syncope (ED) Time of Disposition: 14:11 (hospitalist notified (Dr Alarcon))
[2018-08-31 10:21] LABS: Basophils % (Auto) 0.3 % (0.0-1.8); Hematocrit 34.4 % (30.3-42.9); Hemoglobin 10.8 gm/dl (10.1-14.3); Lymphocytes # (Auto) 0.9 K/mm3 (1.2-5.4); Lymphocytes % (Auto) 6.2 % (13.4-35.0); Mean Corpuscular HGB Conc 31 % (30-34); Mean Corpuscular Volume 73 fl (79-97); Monocytes % (Auto) 6.4 % (0.0-7.3); Platelet Count 365 K/mm3 (140-440); Red Blood Count 4.69 M/mm3 (3.65-5.03); Red Cell Distribution Width 19.3 % (13.2-15.2)
[2018-08-31 10:27] LABS: Albumin 3.6 g/dL (3.9-5); Calcium 9.6 mg/dL (8.4-10.2)
[2018-08-31 10:44] LABS: Bilirubin,Urine NEG (Negative); Blood,Urine NEG (Negative); Color,Urine Amber (Yellow); Urobilinogen,Urine < 2.0 mg/dL (<2.0)
[2018-08-31 11:23] LABS: Free T4 (Free Thyroxine) 1.52 ng/dL (0.76-1.46)
[2018-08-31] MEDS ORDERED: HumuLIN R IV ONE (11:43)
[2018-08-31] MEDS ORDERED: D50W (25GM) Syringe IV ONE (11:43)
[2018-08-31] MEDS: CALCIUM GLUCONATE 1,000 MG in NACL 0.9% 100 ML IV ONE (12:13)
[2018-08-31] MEDS ORDERED: KIONEX PO ONE (12:13)
[2018-08-31] MEDS ORDERED: NACL 0.9% 1000 ML 1,000 ML IV ONE (12:55)
[2018-08-31] MEDS ORDERED: SODIUM BICARBONATE 150 MEQ in D5W 1,000 ML IV ONE (13:20)
--- NOTE | 2018-08-31 13:50 | XRay Report ---
AP CHEST: HISTORY: Acute kidney injury Normal heart size and mediastinal contour. Interstitial markings are prominent throughout both lungs. Minor linear scarring is noted in the lateral right upper lobe. Right apical smooth pleural thickening is also identified. No pneumothorax. The bony structures are grossly intact. IMPRESSION: Chronic interstitial findings as described. No acute process.
--- NOTE | 2018-08-31 13:55 | Cat Scan Report ---
CT HEAD WITHOUT CONTRAST: HISTORY: Syncope, altered mental status. TECHNIQUE: Sequential 2.5mm CT images. COMPARISON: none. FINDINGS: Cerebral Parenchyma: Within normal limits. Cerebellum: Within normal limits. Brainstem: Within normal limits. Ventricles: Normal. Sella: Normal. Extra-axial spaces: Normal. Basal Cisterns: Normal. Intracranial Hemorrhage: None. Midline Shift: None. Calvarium: Normal. Sinuses: Normal. Mastoid Air Cells: Normal. Visualized Orbits: Normal. IMPRESSION: Cranial CT scan within normal limits.
--- NOTE | 2018-08-31 14:00 | Cat Scan Report ---
CT ABDOMEN PELVIS WITHOUT CONTRAST: HISTORY: Lower abdominal pain. COMPARISON: None. TECHNIQUE: Helical CT in 1.25mm intervals without IV contrast. Sagittal and coronal reconstructions. FINDINGS: Lung bases: There are numerous tiny cysts in the lower lung zones. No evidence for mass, infiltrate or pleural effusion. Normal heart size. Liver: Normal. Biliary system: Multiple tiny gallstones are suspected in the fundus of the gallbladder. No biliary dilatation or inflammation is appreciated. Pancreas: Normal. Spleen: Scattered splenic granulomas are noted. Kidneys/ureters/bladder: The bilateral kidneys and ureters are unremarkable. The bladder is mildly distended and contains a Ward catheter. Adrenal glands: Normal. Aorta: Normal. Intestines: There is trace oral contrast in the stomach. An ostomy site is suggested in the right lower quadrant, correlate with history. Evaluation of the bowel loops is limited without oral contrast. There is no obvious obstruction or focal inflammation. Appendix: Appendectomy changes are suspected. Pelvic viscera: Normal. Ascites: None. Adenopathy: None. Musculoskeletal: Intact. IMPRESSION: No acute inflammatory process is identified in the abdomen or pelvis. Cholelithiasis. Previous bowel surgery with ostomy placement in the right lower quadrant. Please correlate with the patient's history. Numerous tiny cysts in the lower lung zones. Lymphangiomyomatosis?
[2018-08-31] MEDS ORDERED: PROVENTIL IH ONE (14:13)
[2018-08-31 15:14] LABS: Calcium 8.7 mg/dL (8.4-10.2)
--- NOTE | 2018-08-31 17:49 | Consultation ---
History of Present Illness - Reason for Consult acute renal failure - History of Present Illness 58-year-old lady with no known significant medical history admitted with altered mental status, labs significant for severe hyponatremia hyperkalemia and acute kidney injury patient has a known history of smoking 1 and a pack a day was found with some concern for the mental status duration unclear. Denies any known history of kidney disease Denies any NSAID use denies any fevers chills denies any nausea vomiting abdominal pain Medications and Allergies Allergies Allergy/AdvReac Type Severity Reaction Status Date / Time NSAIDS (Non-Steroidal Allergy Hives Verified 08/31/18 09:26 Anti-Inflamma Home Medications Medication Instructions Recorded Confirmed Last Taken Type Metoprolol [Lopressor] 25 mg PO BID 08/31/18 08/31/18 Unknown History Oxycodone HCl [oxyCODONE] 10 mg PO Q4H PRN 08/31/18 08/31/18 Unknown History metroNIDAZOLE [Flagyl] 500 mg PO Q8HR 08/31/18 08/31/18 Unknown History Active Meds: Active Medications Sodium Bicarbonate 150 meq/ (Dextrose) 1,150 mls @ 150 mls/hr IV DIRECT ONE Stop: 08/31/18 20:59 Last Admin: 08/31/18 14:01 Dose: 150 mls/hr Documented by: Insulin Human Lispro (Humalog) 0 unit SUB-Q ACHS DUSTIN; Protocol Metoprolol Tartrate (Lopressor) 25 mg PO BID DUSTIN Review of Systems Constitutional: weight loss, weight gain, no fever, no chills Ears, nose, mouth and throat: no deferred, no ear pain Breasts: no deferred Cardiovascular: no chest pain, no orthopnea Respiratory: no cough Gastrointestinal: no abdominal pain, no nausea, no vomiting Endocrine: no cold intolerance, no heat intolerance Hematologic/Lymphatic: no easy bruising Allergic/Immunologic: no urticaria Exam - Vital Signs Vital signs: Vital Signs Temp Pulse Resp BP Pulse Ox 97.7 F 81 16 72/48 95 08/31/18 09:21 08/31/18 09:21 08/31/18 09:21 08/31/18 09:21 08/31/18 09:21 - General Appearance General appearance: well-developed, well-nourished EENT: ATNC, PERRL, mucous membranes moist Neck: Present: neck supple Respiratory: Clear to Ascultation Heart: regular, S1S2 Gastrointestinal: Present: normal, normoactive bowel sounds Integumentary: no rash Neurologic: no focal deficit, CN 3-12 intact Psychiatric: mood/affect appropriate Results - Lab Results 08/31/18 09:47 08/31/18 14:52 Most recent lab results Calcium 8.7 mg/dL (8.4-10.2) 08/31/18 14:52 Laboratory Tests 08/31/18 09:47 Sodium 121 L Potassium 6.5 H* Chloride 76.3 L Carbon Dioxide 18 L BUN 90 H Creatinine 7.1 H - Image Kidney/bladder ultrasound: other (I reviewed chest x-ray with chronic interstitial markings without overt edema) Assessment and Plan - Patient Problems (1) Acute renal failure Current Visit: Yes Status: Acute Plan to address problem: Acute renal failure Baseline creatinine unknown Admission creatinine of 7 in the setting of apparent volume depletion Received sepsis protocol 30 mL per KG Received additional 1 L of IV fluid Continue bicarbonate infusion at [address] revealed distended bladder but otherwise negative Ward in place Recheck labs (2) Hyperkalemia Current Visit: Yes Status: Acute Plan to address problem: Hyperkalemia secondary to acute kidney injury Severe hyperkalemia 6.5 on arrival Received insulin and dextrose, calcium gluconate Received intravenous fluids Ward in place Recheck potassium is improving to 5.5 urine output is improving (3) Altered mental status Current Visit: Yes Status: Acute Plan to address problem: Altered mental status improving In the setting of electrolytes abnormalities, acute kidney injury likely 2/2 metabolic/toxic encephalopathy (4) Hyponatremia Current Visit: Yes Status: Acute Plan to address problem: Hyponatremia moderately severe secondary to intravascular depletion and dehydration We'll give 1 L bolus Then start bicarbonate infusion Place Ward catheter Obtain urine studies urine osmolarity and urine sodium ordered (5) Acidosis Current Visit: Yes Status: Acute Plan to address problem: Metabolic acidosis secondary to acute kidney injury We'll start bicarbonate infusion Recheck renal function panel
--- NOTE | 2018-08-31 20:58 | History and Physical Report ---
History of Present Illness Date of examination: 08/31/18 Date of admission: 08/31/18 14:13 Medications and Allergies Allergies Allergy/AdvReac Type Severity Reaction Status Date / Time NSAIDS (Non-Steroidal Allergy Hives Verified 08/31/18 09:26 Anti-Inflamma Home Medications Medication Instructions Recorded Confirmed Last Taken Type Metoprolol [Lopressor] 25 mg PO BID 08/31/18 08/31/18 Unknown History Oxycodone HCl [oxyCODONE] 10 mg PO Q4H PRN 08/31/18 08/31/18 Unknown History metroNIDAZOLE [Flagyl] 500 mg PO Q8HR 08/31/18 08/31/18 Unknown History Active Meds: Active Medications Sodium Bicarbonate 150 meq/ (Dextrose) 1,150 mls @ 150 mls/hr IV DIRECT ONE Stop: 08/31/18 20:59 Last Admin: 08/31/18 14:01 Dose: 150 mls/hr Documented by: Insulin Human Lispro (Humalog) 0 unit SUB-Q ACHS DUSTIN; Protocol Metoprolol Tartrate (Lopressor) 25 mg PO BID DUSTIN Exam - Constitutional Vitals: Temp Pulse Resp BP Pulse Ox 97.7 F 95 H 17 96/46 92 08/31/18 09:21 08/31/18 17:00 08/31/18 17:00 08/31/18 17:00 08/31/18 17:00 Results - Labs CBC & Chem 7: 08/31/18 09:47 08/31/18 14:52 Labs: Laboratory Last Values WBC 15.2 K/mm3 (4.5-11.0) H 08/31/18 09:47 RBC 4.69 M/mm3 (3.65-5.03) 08/31/18 09:47 Hgb 10.8 gm/dl (10.1-14.3) 08/31/18 09:47 Hct 34.4 % (30.3-42.9) 08/31/18 09:47 MCV 73 fl (79-97) L 08/31/18 09:47 MCH 23 pg (28-32) L 08/31/18 09:47 MCHC 31 % (30-34) 08/31/18 09:47 RDW 19.3 % (13.2-15.2) H 08/31/18 09:47 Plt Count 365 K/mm3 (140-440) 08/31/18 09:47 Lymph % (Auto) 6.2 % (13.4-35.0) L 08/31/18 09:47 [place] % (Auto) 6.4 % (0.0-7.3) 08/31/18 09:47 Eos % (Auto) 0.0 % (0.0-4.3) 08/31/18 09:47 Baso % (Auto) 0.3 % (0.0-1.8) 08/31/18 09:47 Lymph # 0.9 K/mm3 (1.2-5.4) L 08/31/18 09:47 [place] # 1.0 K/mm3 (0.0-0.8) H 08/31/18 09:47 Eos # 0.0 K/mm3 (0.0-0.4) 08/31/18 09:47 Baso # 0.0 K/mm3 (0.0-0.1) 08/31/18 09:47 Seg Neutrophils % 87.1 % (40.0-70.0) H 08/31/18 09:47 Seg Neutrophils # 13.2 K/mm3 (1.8-7.7) H 08/31/18 09:47 Sodium 125 mmol/L (137-145) L 08/31/18 14:52 Potassium 5.5 mmol/L (3.6-5.0) H 08/31/18 14:52 Chloride 85.4 mmol/L (98-107) L 08/31/18 14:52 Carbon Dioxide 18 mmol/L (22-30) L 08/31/18 14:52 27 mmol/L 08/31/18 14:52 BUN 84 mg/dL (7-17) H 08/31/18 14:52 6.0 mg/dL (0.7-1.2) H 08/31/18 14:52 Estimated GFR 7 ml/min 08/31/18 14:52 14 % 08/31/18 14:52 Glucose 91 mg/dL (65-100) 08/31/18 14:52 290 Mosm/kg 08/31/18 09:47 Lactic Acid 1.00 mmol/L (0.7-2.0) 08/31/18 13:35 Calcium 8.7 mg/dL (8.4-10.2) 08/31/18 14:52 0.40 mg/dL (0.1-1.2) 08/31/18 09:47 AST 63 units/L (5-40) H 08/31/18 09:47 ALT 47 units/L (7-56) 08/31/18 09:47 113 units/L (35-129) 08/31/18 09:47 36.0 umol/L (25-60) 08/31/18 09:47 0.021 ng/mL (0.00-0.029) 08/31/18 09:47 NT-Pro-B Natriuret Pep 1077 pg/mL (0-900) H 08/31/18 09:47 7.7 g/dL (6.3-8.2) 08/31/18 09:47 3.6 g/dL (3.9-5) L 08/31/18 09:47 0.9 % 08/31/18 09:47 TSH 0.485 mlU/mL (0.270-4.200) 08/31/18 09:47 Free T4 1.52 ng/dL (0.76-1.46) H 08/31/18 09:47 Sophie (Yellow) 08/31/18 10:17 Cloudy (Clear) 08/31/18 10:17 5.0 (5.0-7.0) 08/31/18 10:17 Ur Specific [place] 1.018 (1.003-1.030) 08/31/18 10:17 30 mg/dl mg/dL (Negative) 08/31/18 10:17 Neg mg/dL (Negative) 08/31/18 10:17 Neg mg/dL (Negative) 08/31/18 10:17 Neg (Negative) 08/31/18 10:17 Neg (Negative) 08/31/18 10:17 Neg (Negative) 08/31/18 10:17 < 2.0 mg/dL (<2.0) 08/31/18 10:17 Ur Leukocyte Esterase Neg (Negative) 08/31/18 10:17 1.0 /HPF (0.0-6.0) 08/31/18 10:17 1.0 /HPF (0.0-6.0) 08/31/18 10:17 U Epithel Cells (Auto) 1.0 /HPF (0-13.0) 08/31/18 10:17 Plasma/Serum Alcohol < 0.01 % (0-0.07) 08/31/18 09:47
[2018-08-31] MEDS ORDERED: ZOFRAN IV PRN (21:00)
[2018-08-31] MEDS ORDERED: TYLENOL PO PRN (21:00)
[2018-08-31 22:03] LABS: Calcium 8.7 mg/dL (8.4-10.2)
[2018-08-31] MEDS: SODIUM CHLORIDE FLUSH SYRINGE 10 ML IV SCH (22:55)
[2018-08-31] MEDS: HumaLOG SUB-Q SCH (22:55)
[2018-08-31] MEDS: PEPCID IV SCH (22:55)
[2018-08-31] MEDS: LOPRESSOR PO SCH (23:05)
[2018-08-31] MEDS: NACL 0.9% 1000 ML 1,000 ML IV SCH (23:40)
--- NOTE | 2018-09-01 06:46 | Event Note ---
Date: 08/31/18 AMS Hyperkalemia DOROTHEA Hyponatremia Dialysis??
[2018-09-01] MEDS: CALCIUM GLUCONATE 1,000 MG in NACL 0.9% 100 ML IV ONE (08:12)
[2018-09-01] MEDS: HumaLOG SUB-Q SCH ×5 (08:13→21:55)
--- NOTE | 2018-09-01 10:13 | History and Physical Report ---
CHIEF COMPLAINT: Altered sensorium. HISTORY OF PRESENT ILLNESS: A 58-year-old with a history of hypertension, but no history of end-stage renal disease, brought in for altered mental status. As per EMS, the patient was found on the floor with altered mental status. Family reported the patient was not behaving like herself. The patient also complains of lower abdominal pain. The patient admits to using high doses of oxycodone. PAST MEDICAL HISTORY: Hypertension. PAST SURGICAL HISTORY: Colostomy. FAMILY HISTORY: No significant family history. SOCIAL HISTORY: Does not smoke. Takes oxycodone 10 mg every 4 hours. CURRENT MEDICATIONS: Oxycodone 10 mg q. 4, metoprolol 25 mg twice a day, metronidazole 500 mg q. 8 hours. REVIEW OF SYSTEMS: Significant for altered mental status. No fever. No chills. No abdominal pain. The patient was hypotensive at the time of admission to the Emergency Room with a blood pressure of 72/48. Otherwise, review of systems negative. PHYSICAL EXAMINATION: GENERAL: Middle-aged female, lethargic, afebrile. VITAL SIGNS: Temperature is 98.6, pulse is 84, respirations are 17, sats are 97%, initial blood pressure was 72/48, which is improved to 115/54 with IV fluids. HEENT: Unremarkable. Pupils equal and reactive. NECK: Supple, no lymphadenopathy, no thyromegaly. LUNGS: Clear to auscultation and percussion. Good air entry. CARDIOVASCULAR: S1, S2 heard. No gallop, no murmur, no rub. Apical impulse in left fifth intercostal space and midclavicular line. ABDOMEN: Soft and benign. No hepatosplenomegaly. No guarding, no rigidity. Hernial orifices are normal. EXTREMITIES: Good pedal pulses. No pedal edema. CENTRAL NERVOUS SYSTEM: Alert, but lethargic. Able to move all 4 extremities. SKIN: Normal. LABORATORY DATA: Significant for white count of 15,200, H and H of 10.8 and 34.4, platelet count of 365,000. Sodium is 121, potassium is 6.5, BUN and creatinine is 90 and 7.1. BNP is 1077. Albumin is 3.6, slightly low, free T4 is 1.58. TSH is 0.485. Urine negative. Abdominal CAT scan, no acute inflammatory process. Cholelithiasis present. Previous bowel surgery with ostomy placement in the right lower quadrant. Lymphangiomyomatosis. Head CT normal. Chest x-ray shows chronic interstitial findings. Prominent throughout both lungs. ASSESSMENT AND PLAN: 1. Acute kidney injury, etiology unclear. 2. Dehydration and hypotension. Clinical picture consistent with acute tubular necrosis. IV fluids for now. If necessary hemodialysis. Nephrology consulted. 3. Hyperkalemia, treated aggressively. The patient is given bicarbonate infusion, also insulin and dextrose. IV fluids. Recheck the potassium level. Kayexalate. 4. Acute encephalopathy, probably secondary to uremia. 5. Electrolyte abnormalities. Correct the acute renal failure and hyponatremia and hyperkalemia. 6. Hyponatremia. IV normal saline to be given. Check urine osmolality and serum osmolality. 7. Metabolic acidosis. The patient started on bicarbonate infusion by the Nephrology. 8. Hypotension. IV fluids for now. 9. Deep venous thrombosis prophylaxis, heparin 5000 q. 12. [facility]# [id number] LAURA/KATRIN
[2018-09-01] MEDS: SODIUM CHLORIDE FLUSH SYRINGE 10 ML IV SCH ×2 (10:29→21:54)
[2018-09-01] MEDS: HEPARIN SUB-Q SCH ×2 (10:29→21:53)
[2018-09-01] MEDS: LOPRESSOR PO SCH ×2 (10:29→21:53)
[2018-09-01] MEDS: PEPCID IV SCH (10:29)
[2018-09-01 10:38] LABS: Basophils % (Auto) 0.5 % (0.0-1.8); Eosinophils % (Auto) 0.1 % (0.0-4.3); Hematocrit 29.1 % (30.3-42.9); Hemoglobin 9.6 gm/dl (10.1-14.3); Lymphocytes # (Auto) 0.5 K/mm3 (1.2-5.4); Lymphocytes % (Auto) 11.6 % (13.4-35.0); Mean Corpuscular HGB Conc 33 % (30-34); Mean Corpuscular Volume 72 fl (79-97); Monocytes # (Auto) 0.5 K/mm3 (0.0-0.8); Monocytes % (Auto) 11.2 % (0.0-7.3); Platelet Count 177 K/mm3 (140-440); Red Blood Count 4.05 M/mm3 (3.65-5.03)
[2018-09-01 11:05] LABS: Albumin 3.1 g/dL (3.9-5); Calcium 8.7 mg/dL (8.4-10.2)
--- NOTE | 2018-09-01 12:47 | Progress Note ---
Assessment and Plan - Patient Problems (1) Acute renal failure Current Visit: Yes Status: Acute Plan to address problem: Acute renal failure improving Baseline creatinine unknown Admission creatinine of 7 in the setting of apparent volume depletion Current creatinine 3.3 Received sepsis protocol 30 mL per KG Received additional 1 L of IV fluid We'll change intravenous fluids to [address] revealed distended bladder but otherwise negative Ward in place Recheck labs (2) Hyperkalemia Current Visit: Yes Status: Acute Plan to address problem: Hyperkalemia secondary to acute kidney injury resolved Severe hyperkalemia 6.5 on arrival Received insulin and dextrose, calcium gluconate Received intravenous fluids Ward in place Recheck potassium is improving (3) Altered mental status Current Visit: Yes Status: Acute Plan to address problem: Altered mental status improving In the setting of electrolytes abnormalities, acute kidney injury likely 2/2 metabolic/toxic encephalopathy (4) Hyponatremia Current Visit: Yes Status: Acute Plan to address problem: Hyponatremia moderately severe secondary to intravascular depletion and dehydration We'll give 1 L bolus Rapidly rising sodium level will change to half-normal saline infusion@125cc/hr Ward catheter in place (5) Acidosis Current Visit: Yes Status: Acute Plan to address problem: Metabolic acidosis secondary to acute kidney injury: resolved discontinued bicarbonate infusion change to saline infusion Recheck renal function panel Subjective Interval history: 58-year-old lady with no known significant medical history admitted with altered mental status, labs significant for severe hyponatremia hyperkalemia and acute kidney injury patient has a known history of smoking 1 and a pack a day was found with some concern for the mental status duration unclear Patient seen today more awake and responsive Good urine output Denies any orthopnea PND Currently on supplemental oxygen Has no lower extremity edema Objective - Vital Signs Vital signs: Vital Signs - 12hr 09/01/18 09/01/18 09/01/18 04:00 05:24 08:18 Temperature 98.1 F 98.2 F Pulse Rate 89 94 H 95 H Respiratory 20 14 Rate Blood Pressure 126/59 129/63 O2 Sat by Pulse 98 98 Oximetry - General Appearance General appearance: cachectic, frail EENT: ATNC, PERRL, mucous membranes moist Neck: no JVD Respiratory: Present: Clear to Ascultation Cardiology: regular, S1S2 Gastrointestinal: normal, normoactive bowel sounds, other (right lower quadrant colostomy) Integumentary: no rash, other (nodular eruptions noted) Neurologic: no focal deficit, CN 3-12 intact Musculoskeletal: deferred Psychiatric: mood/affect appropriate - Lab 09/01/18 10:10 09/01/18 10:20 Most recent lab results Calcium 8.7 mg/dL (8.4-10.2) 09/01/18 10:20 63 mmol/L 09/01/18 06:12 - Imaging Chest x-ray: image reviewed (I reviewed chest x-ray with chronic interstitial markings) Medications & Allergies - Medications Allergies/Adverse Reactions: Allergies NSAIDS (Non-Steroidal Anti-Inflamma Allergy (Verified 08/31/18 09:26) Hives Home Medications: Home Medications Medication Instructions Recorded Confirmed Last Taken Type Metoprolol [Lopressor] 25 mg PO BID 08/31/18 08/31/18 Unknown History Oxycodone HCl [oxyCODONE] 10 mg PO Q4H PRN 08/31/18 08/31/18 Unknown History metroNIDAZOLE [Flagyl] 500 mg PO Q8HR 08/31/18 08/31/18 Unknown History Active Medications: Generic Name Dose Route Start Last Admin Trade Name Freq PRN Reason Stop Dose Admin Acetaminophen 650 mg 08/31/18 21:00 Tylenol PO Q4H PRN Pain MILD(1-3)/Fever >100.5/COLLAZO Famotidine 10 mg 09/01/18 22:00 Pepcid PO BID DUSTIN Heparin Sodium (Porcine) 5,000 unit 09/01/18 10:00 09/01/18 10:29 Heparin SUB-Q 5,000 unit Q12HR DUSTIN Administration Sodium Chloride 1,000 mls @ 100 mls/hr 08/31/18 22:00 08/31/18 23:40 Nacl 0.9% 1000 Ml IV 100 mls/hr DIRECT DUSTIN Administration Insulin Human Lispro 0 unit 08/31/18 16:30 09/01/18 09:15 Humalog SUB-Q Not Given ACHS [facility] Protocol Metoprolol Tartrate 25 mg 08/31/18 22:00 09/01/18 10:29 Lopressor PO 25 mg BID DUSTIN Administration Morphine Sulfate 2 mg 08/31/18 21:00 Morphine IV Q4H PRN Pain, Moderate (4-6) Ondansetron HCl 4 mg 08/31/18 21:00 Zofran IV Q8H PRN Nausea And Vomiting Sodium Chloride 10 ml 08/31/18 22:00 09/01/18 10:29 Sodium Chloride Flush Syringe 10 Ml IV 10 ml BID DUSTIN Administration Sodium Chloride 10 ml 08/31/18 21:00 Sodium Chloride Flush Syringe 10 Ml IV PRN PRN LINE FLUSH
[2018-09-01] MEDS: NACL 0.9% 1000 ML 1,000 ML IV SCH (13:12)
[2018-09-01] MEDS: NACL 0.45% 1000 ML 1,000 ML IV SCH ×2 (13:17→21:54)
--- NOTE | 2018-09-01 18:50 | Progress Note ---
Assessment and Plan - Patient Problems (1) Encephalopathy acute Current Visit: Yes Status: Acute Plan to address problem: Multifactorial Hypoxia DOROTHEA Electrolyte abnormalities (2) DOROTHEA (acute kidney injury) Current Visit: Yes Status: Acute Plan to address problem: Sec to ATN Improved significantly From 90/7.1 to 48/1.7 (3) COPD with exacerbation Current Visit: Yes Status: Acute Plan to address problem: Started on Duonebs and IV solumedroll and IV Levaquin (4) Hyperkalemia Current Visit: Yes Status: Acute Plan to address problem: Improved to normal (5) Hyponatremia Current Visit: Yes Status: Acute Plan to address problem: Improved to baseline (6) Severe malnutrition Current Visit: Yes Status: Chronic Plan to address problem: Dietitian consult (7) DVT prophylaxis Current Visit: Yes Status: Acute Plan to address problem: On Heparin and Gi prophylaxis Subjective Date of service: 09/01/18 Principal diagnosis: DOROTHEA,Encephalopathy Interval history: 58-year-old lady with no known significant medical history admitted with altered mental status, labs significant for severe hyponatremia hyperkalemia and acute kidney injury patient has a known history of smoking 1 and a pack a day was found with some concern for the mental status duration unclear. Denies any known history of kidney disease Denies any NSAID use denies any fevers chills denies any nausea vomiting abdominal pain In Severe renal failure--Improving Objective - Constitutional Vitals: Vital Signs - 12hr 09/01/18 09/01/18 09/01/18 08:18 11:21 12:00 Temperature 98.2 F 98.2 F Pulse Rate 95 H 80 80 Respiratory 14 14 Rate Blood Pressure 129/63 142/58 O2 Sat by Pulse 98 96 Oximetry General appearance: Present: no acute distress, well-nourished - EENT Eyes: PERRL, EOM intact ENT: hearing intact, clear oral mucosa Ears: bilateral: normal - Neck Neck: supple, normal ROM - Respiratory Respiratory effort: normal Respiratory: bilateral: CTA, rhonchi, wheezing - Breasts Breasts: normal - Cardiovascular Heart rate: 88 Rhythm: regular Heart Sounds: Present: S1 & S2. Absent: gallop, rub Extremities: pulses intact, No edema, normal color, Full ROM - Gastrointestinal General gastrointestinal: Present: soft, non-tender, non-distended, normal bowel sounds - Genitourinary Female genitourinary: normal - Integumentary Integumentary: clear, warm, dry - Musculoskeletal Musculoskeletal: 1, strength equal bilaterally - Neurologic Neurologic: moves all extremities - Psychiatric Psychiatric: memory intact, appropriate mood/affect, intact judgment & insight - Labs CBC & Chem 7: 09/04/18 05:20 09/05/18 05:04 Labs: Abnormal lab results 08/31/18 08/31/18 09/01/18 Range/Units 21:18 22:27 08:23 WBC (4.5-11.0) K/mm3 Hgb (10.1-14.3) gm/dl Hct (30.3-42.9) % MCV (79-97) fl MCH (28-32) pg RDW (13.2-15.2) % Lymph % (Auto) (13.4-35.0) % [place] % (Auto) (0.0-7.3) % Lymph # (1.2-5.4) K/mm3 Seg Neutrophils % (40.0-70.0) % Sodium 129 L (137-145) mmol/L Chloride 84.5 L (98-107) mmol/L BUN 79 H (7-17) mg/dL Creatinine 4.9 H (0.7-1.2) mg/dL Glucose 108 H (65-100) mg/dL POC Glucose 132 H 113 H (70-105) AST (5-40) units/L Total Protein (6.3-8.2) g/dL Albumin (3.9-5) g/dL 09/01/18 09/01/18 09/01/18 Range/Units 10:10 10:20 11:28 WBC 4.1 L (4.5-11.0) K/mm3 Hgb 9.6 L (10.1-14.3) gm/dl Hct 29.1 L (30.3-42.9) % MCV 72 L (79-97) fl MCH 24 L (28-32) pg RDW 19.0 H (13.2-15.2) % Lymph % (Auto) 11.6 L (13.4-35.0) % [place] % (Auto) 11.2 H (0.0-7.3) % Lymph # 0.5 L (1.2-5.4) K/mm3 Seg Neutrophils % 76.6 H (40.0-70.0) % Sodium 136 L D (137-145) mmol/L Chloride 91.4 L (98-107) mmol/L BUN 71 H (7-17) mg/dL Creatinine 3.3 H (0.7-1.2) mg/dL Glucose 134 H (65-100) mg/dL POC Glucose 147 H (70-105) AST 46 H (5-40) units/L Total Protein 6.0 L D (6.3-8.2) g/dL Albumin 3.1 L (3.9-5) g/dL
[2018-09-01] MEDS: PEPCID PO SCH (21:53)
[2018-09-02 06:18] LABS: Calcium 8.9 mg/dL (8.4-10.2)
[2018-09-02] MEDS: HumaLOG SUB-Q SCH ×4 (08:47→22:35)
[2018-09-02] MEDS: PEPCID PO SCH ×2 (09:29→22:32)
[2018-09-02] MEDS: LOPRESSOR PO SCH ×2 (09:30→22:33)
[2018-09-02] MEDS: SODIUM CHLORIDE FLUSH SYRINGE 10 ML IV SCH ×2 (09:30→22:34)
[2018-09-02] MEDS: HEPARIN SUB-Q SCH ×2 (09:30→22:34)
[2018-09-02] MEDS: MORPHINE IV PRN ×2 (09:49→16:54)
--- NOTE | 2018-09-02 10:26 | Progress Note ---
Assessment and Plan - Patient Problems (1) Acute renal failure Current Visit: Yes Status: Acute Plan to address problem: Acute renal failure improving Baseline creatinine unknown Admission creatinine of 7 in the setting of apparent volume depletion Current creatinine 3.3 Received sepsis protocol 30 mL per KG Received additional 1 L of IV fluid Continue continue intravenous fluids to [address] revealed distended bladder but otherwise negative Ward in place Recheck labs (2) Hyperkalemia Current Visit: Yes Status: Acute Plan to address problem: Hyperkalemia secondary to acute kidney injury resolved Severe hyperkalemia 6.5 on arrival Received insulin and dextrose, calcium gluconate Received intravenous fluids Ward in place Recheck potassium is improving (3) Altered mental status Current Visit: Yes Status: Acute Plan to address problem: Altered mental status improving In the setting of electrolytes abnormalities, acute kidney injury likely 2/2 metabolic/toxic encephalopathy (4) Hyponatremia Current Visit: Yes Status: Acute Plan to address problem: Hyponatremia moderately severe secondary to intravascular depletion and dehydration We'll give 1 L bolus Sodium level is 134 Continue half-normal saline infusion@125cc/hr Ward catheter in place (5) Acidosis Current Visit: Yes Status: Acute Plan to address problem: Metabolic acidosis secondary to acute kidney injury: resolved discontinued bicarbonate infusion change to saline infusion Recheck renal function panel Subjective Interval history: 58-year-old lady with no known significant medical history admitted with altered mental status, labs significant for severe hyponatremia hyperkalemia and acute kidney injury patient has a known history of smoking 1 and a pack a day was found with some concern for the mental status duration unclear Patient seen today more awake and responsive Good urine output Denies any orthopnea PND Currently on supplemental oxygen Has no lower extremity edema Objective - Vital Signs Vital signs: Vital Signs - 12hr 09/01/18 09/02/18 09/02/18 23:29 00:05 03:07 Temperature 98.0 F Pulse Rate 109 H 106 H Respiratory 22 18 Rate Blood Pressure 80/45 O2 Sat by Pulse 84 Oximetry 09/02/18 09/02/18 03:54 07:23 Temperature 98.2 F 98.3 F Pulse Rate 101 H 101 H Respiratory 18 14 Rate Blood Pressure 104/59 134/81 O2 Sat by Pulse 91 94 Oximetry - General Appearance General appearance: well-developed, well-nourished EENT: ATNC, PERRL, mucous membranes moist Neck: no JVD Respiratory: Present: Clear to Ascultation Cardiology: regular, normal heart rate, S1S2 Gastrointestinal: normal, normoactive bowel sounds Integumentary: no rash Neurologic: alert and oriented x3, CN 3-12 intact Psychiatric: mood/affect appropriate - Lab 09/01/18 10:10 09/02/18 05:40 Most recent lab results Calcium 8.9 mg/dL (8.4-10.2) 09/02/18 05:40 63 mmol/L 09/01/18 06:12 - Imaging Chest x-ray: image reviewed (I reviewed chest x-ray with chronic interstitial markings) Medications & Allergies - Medications Allergies/Adverse Reactions: Allergies NSAIDS (Non-Steroidal Anti-Inflamma Allergy (Verified 08/31/18 09:26) Hives Home Medications: Home Medications Medication Instructions Recorded Confirmed Last Taken Type Metoprolol [Lopressor] 25 mg PO BID 08/31/18 08/31/18 Unknown History Oxycodone HCl [oxyCODONE] 10 mg PO Q4H PRN 08/31/18 08/31/18 Unknown History metroNIDAZOLE [Flagyl] 500 mg PO Q8HR 08/31/18 08/31/18 Unknown History Active Medications: Generic Name Dose Route Start Last Admin Trade Name Freq PRN Reason Stop Dose Admin Acetaminophen 650 mg 08/31/18 21:00 Tylenol PO Q4H PRN Pain MILD(1-3)/Fever >100.5/COLLAZO Famotidine 10 mg 09/01/18 22:00 09/02/18 09:29 Pepcid PO 10 mg BID DUSTIN Administration Heparin Sodium (Porcine) 5,000 unit 09/01/18 10:00 09/02/18 09:30 Heparin SUB-Q 5,000 unit Q12HR DUSTIN Administration Sodium Chloride 1,000 mls @ 125 mls/hr 09/01/18 14:00 09/01/18 21:54 Nacl 0.45% 1000 Ml IV 125 mls/hr DIRECT DUSTIN Administration Insulin Human Lispro 0 unit 08/31/18 16:30 09/02/18 08:47 Humalog SUB-Q Not Given ACHS DUSTIN Protocol Metoprolol Tartrate 25 mg 08/31/18 22:00 09/02/18 09:30 Lopressor PO 25 mg BID DUSTIN Administration Morphine Sulfate 2 mg 08/31/18 21:00 09/02/18 09:49 Morphine IV 2 mg Q4H PRN Administration Pain, Moderate (4-6) Ondansetron HCl 4 mg 08/31/18 21:00 09/01/18 18:56 Zofran IV 4 mg Q8H PRN Administration Nausea And Vomiting Sodium Chloride 10 ml 08/31/18 22:00 09/02/18 09:30 Sodium Chloride Flush Syringe 10 Ml IV 10 ml BID DUSTIN Administration Sodium Chloride 10 ml 08/31/18 21:00 Sodium Chloride Flush Syringe 10 Ml IV PRN PRN LINE FLUSH
[2018-09-02] MEDS: NACL 0.45% 1000 ML 1,000 ML IV SCH ×2 (16:58→22:35)
[2018-09-02] MEDS: ROXICODONE PO PRN (22:32)
[2018-09-03] MEDS: ROXICODONE PO PRN ×2 (04:34→22:11)
[2018-09-03] MEDS: NACL 0.45% 1000 ML 1,000 ML IV SCH (04:35)
[2018-09-03 06:20] LABS: Calcium 8.3 mg/dL (8.4-10.2)
[2018-09-03] MEDS: HumaLOG SUB-Q SCH ×3 (08:30→18:26)
[2018-09-03] MEDS: NACL 0.9% 1000 ML 1,000 ML IV SCH ×2 (08:36→16:53)
[2018-09-03] MEDS: PEPCID PO SCH ×2 (09:37→22:10)
[2018-09-03] MEDS: HEPARIN SUB-Q SCH ×2 (09:37→22:12)
[2018-09-03] MEDS: MORPHINE IV PRN ×3 (09:37→21:05)
[2018-09-03] MEDS: LOPRESSOR PO SCH ×2 (09:37→22:10)
[2018-09-03] MEDS: SODIUM CHLORIDE FLUSH SYRINGE 10 ML IV SCH (09:39)
--- NOTE | 2018-09-03 10:08 | Progress Note ---
Assessment and Plan - Patient Problems (1) Acute renal failure Current Visit: Yes Status: Acute Plan to address problem: Acute renal failure improving Baseline creatinine unknown Admission creatinine of 7 in the setting of apparent volume depletion Peak creatinine of 7.0 Current creatinine 1.7 Received sepsis protocol 30 mL per KG Received additional 1 L of IV fluid change fluids to Normal Saline @ 50cc/hr obtain repeat CXr. CT revealed distended bladder but otherwise negative Ward in place Recheck labs (2) Hyperkalemia Current Visit: Yes Status: Acute Plan to address problem: Hyperkalemia secondary to acute kidney injury resolved Severe hyperkalemia 6.5 on arrival Received insulin and dextrose, calcium gluconate Received intravenous fluids Ward in place Recheck potassium is improving (3) Altered mental status Current Visit: Yes Status: Acute Plan to address problem: Altered mental status improving In the setting of electrolytes abnormalities, acute kidney injury likely 2/2 metabolic/toxic encephalopathy (4) Hyponatremia Current Visit: Yes Status: Acute Plan to address problem: Hyponatremia moderately severe secondary to intravascular depletion and dehydration now with iatrogenic hyponatremia on half normal saline Sodium level is 128 Change normal saline infusion@ 50cc/hr Ward catheter in place (5) Acidosis Current Visit: Yes Status: Acute Plan to address problem: Metabolic acidosis secondary to acute kidney injury: resolved discontinued bicarbonate infusion change to saline infusion Recheck renal function panel Subjective Interval history: 58-year-old lady with no known significant medical history admitted with altered mental status, labs significant for severe hyponatremia hyperkalemia and acute kidney injury patient has a known history of smoking 1 and a pack a day was found with some concern for the mental status duration unclear Patient seen today more awake and responsive Good urine output Denies any orthopnea PND Currently on supplemental oxygen Has no lower extremity edema Objective - Vital Signs Vital signs: Vital Signs - 12hr 09/02/18 09/02/18 09/03/18 22:33 23:26 04:00 Temperature 98.3 F Pulse Rate 95 H 89 85 Respiratory 18 Rate Blood Pressure 121/79 130/83 O2 Sat by Pulse 96 Oximetry 09/03/18 09/03/18 09/03/18 04:34 08:07 09:37 Temperature Pulse Rate Respiratory 20 18 15 Rate Blood Pressure O2 Sat by Pulse Oximetry - General Appearance General appearance: cachectic, chronically ill, frail EENT: ATNC, PERRL, mucous membranes moist Neck: no JVD Respiratory: Present: [place] Cardiology: regular, S1S2 Gastrointestinal: normal, normoactive bowel sounds Integumentary: no rash Neurologic: no focal deficit, alert and oriented x3, CN 3-12 intact Psychiatric: agitated - Lab 09/01/18 10:10 09/03/18 05:03 Most recent lab results Calcium 8.3 mg/dL (8.4-10.2) L 09/03/18 05:03 63 mmol/L 09/01/18 06:12 - Imaging Chest x-ray: image reviewed (I reviewed CXr with chronic interstitial markings. ) Medications & Allergies - Medications Allergies/Adverse Reactions: Allergies NSAIDS (Non-Steroidal Anti-Inflamma Allergy (Verified 08/31/18 09:26) Hives Home Medications: Home Medications Medication Instructions Recorded Confirmed Last Taken Type Metoprolol [Lopressor] 25 mg PO BID 08/31/18 08/31/18 Unknown History Oxycodone HCl [oxyCODONE] 10 mg PO Q4H PRN 08/31/18 08/31/18 Unknown History metroNIDAZOLE [Flagyl] 500 mg PO Q8HR 08/31/18 08/31/18 Unknown History Active Medications: Generic Name Dose Route Start Last Admin Trade Name Freq PRN Reason Stop Dose Admin Acetaminophen 650 mg 08/31/18 21:00 09/02/18 13:10 Tylenol PO 650 mg Q4H PRN Administration Pain MILD(1-3)/Fever >100.5/COLLAZO Famotidine 10 mg 09/01/18 22:00 09/03/18 09:37 Pepcid PO 10 mg BID DUSTIN Administration Heparin Sodium (Porcine) 5,000 unit 09/01/18 10:00 09/03/18 09:37 Heparin SUB-Q 5,000 unit Q12HR DUSTIN Administration Sodium Chloride 1,000 mls @ 50 mls/hr 09/03/18 09:00 09/03/18 08:36 Nacl 0.9% 1000 Ml IV 100 mls/hr DIRECT DUSTIN Administration Insulin Human Lispro 0 unit 08/31/18 16:30 09/03/18 08:30 Humalog SUB-Q Not Given ACHS DUSTIN Protocol Metoprolol Tartrate 25 mg 08/31/18 22:00 09/03/18 09:37 Lopressor PO 25 mg BID DUSTIN Administration Morphine Sulfate 2 mg 08/31/18 21:00 09/03/18 09:37 Morphine IV 2 mg Q4H PRN Administration Pain, Moderate (4-6) Ondansetron HCl 4 mg 08/31/18 21:00 09/01/18 18:56 Zofran IV 4 mg Q8H PRN Administration Nausea And Vomiting Oxycodone HCl 10 mg 09/02/18 21:24 09/03/18 04:34 Roxicodone PO 10 mg Q4H PRN Administration Pain, Moderate (4-6) Sodium Chloride 10 ml 08/31/18 22:00 09/03/18 09:39 Sodium Chloride Flush Syringe 10 Ml IV 10 ml BID DUSTIN Administration Sodium Chloride 10 ml 08/31/18 21:00 Sodium Chloride Flush Syringe 10 Ml IV PRN PRN LINE FLUSH
--- NOTE | 2018-09-03 11:20 | XRay Report ---
AP CHEST: HISTORY: Acute kidney injury Diffuse bilateral infiltrates have developed since 08/31/18. I suspect this represents pulmonary edema although infectious infiltrates could be considered. Heart size is within normal limits. Chronic scarring and pleural thickening in the right lung are stable. No pneumothorax or pleural effusion. IMPRESSION: Bilateral pulmonary edema versus infiltrates have developed since the exam 3 days ago.
--- NOTE | 2018-09-03 17:53 | Progress Note ---
Assessment and Plan Acute hypoxic respiratory failure; Patient is on high flow oxygen, nebulizers, BiPAP as needed, Pulm following , f/uCTA chest to r/o PE Right lower extremity DVT: anticoagulation with Lovenox, r/o PE Non-ST elevation SC /nonspecific elevation of troponin new-onset cardiomyopathy with ejection fraction of 15-20% Continue current management, ischemia workup when patient is more stable Cardiology following New-onset systolic CHF; 15-20% anti-failure medications, diuretics beta blockers and merline inhibitors And Protopic monitoring, daily weights, low sodium, fluid restriction -Hypokalemia Replacement with potassium chloride monitor levels DOROTHEA (acute kidney injury)POA Sec to ATN : Resolved Gentle hydration Hyponatremia Improved to baseline Acute pulmonary edema: POA Sec to IV Fluids,Will get ECHO IV Lasix one dose given yesterday with significant improvement COPD with exacerbation Started on Duonebs and IV solumedroll and IV Levaquin Severe malnutrition Dietitian consult DVT prophylaxis On Heparin and Gi prophylaxis Subjective Date of service: 09/02/18 Principal diagnosis: Ac resp failure Interval history: 58-year-old lady with no known significant medical history admitted with altered mental status, labs significant for severe hyponatremia hyperkalemia and acute kidney injury patient has a known history of smoking 1 and a pack a day was found with some concern for the mental status duration unclear. Denies any known history of kidney disease Denies any NSAID use denies any fevers chills denies any nausea vomiting abdomin al pain In Severe renal failure--Improving Objective - Constitutional Vitals: Vital Signs - 12hr 09/03/18 09/03/18 09/03/18 08:07 09:37 10:07 Pulse Rate Respiratory 18 15 16 Rate 09/03/18 12:00 Pulse Rate 88 Respiratory Rate General appearance: Present: mild distress, well-nourished - EENT Eyes: PERRL, EOM intact ENT: hearing intact, clear oral mucosa Ears: bilateral: normal - Neck Neck: supple, normal ROM - Respiratory Respiratory effort: normal Respiratory: bilateral: CTA - Breasts Breasts: normal - Cardiovascular Heart rate: 88 Rhythm: regular Heart Sounds: Present: S1 & S2. Absent: gallop, rub Extremities: pulses intact, No edema, normal color, Full ROM - Gastrointestinal General gastrointestinal: Present: soft, non-tender, non-distended, normal bowel sounds - Genitourinary Female genitourinary: normal - Integumentary Integumentary: clear, warm, dry - Musculoskeletal Musculoskeletal: 1, strength equal bilaterally - Neurologic Neurologic: moves all extremities - Psychiatric Psychiatric: memory intact, appropriate mood/affect, intact judgment & insight - Allied health notes Allied health notes reviewed: nursing - Labs CBC & Chem 7: 09/07/18 04:57 09/08/18 09:35 Labs: Abnormal lab results 09/02/18 09/03/18 09/03/18 Range/Units 20:29 05:03 08:02 Sodium 128 L (137-145) mmol/L Chloride 91.3 L (98-107) mmol/L BUN 48 H (7-17) mg/dL Creatinine 1.7 H (0.7-1.2) mg/dL Glucose 110 H (65-100) mg/dL POC Glucose 112 H 115 H (70-105) Calcium 8.3 L (8.4-10.2) mg/dL 09/03/18 Range/Units 12:15 Sodium (137-145) mmol/L Chloride (98-107) mmol/L BUN (7-17) mg/dL Creatinine (0.7-1.2) mg/dL Glucose (65-100) mg/dL POC Glucose 321 H (70-105) Calcium (8.4-10.2) mg/dL
--- NOTE | 2018-09-03 17:53 | Progress Note ---
Assessment and Plan - Patient Problems (1) Encephalopathy acute Current Visit: Yes Status: Acute Plan to address problem: Multifactorial Hypoxia DOROTHEA Electrolyte abnormalities (2) DOROTHEA (acute kidney injury) Current Visit: Yes Status: Acute Plan to address problem: Sec to ATN Improved significantly From 90/7.1 to 48/1.7 (3) Acute pulmonary edema Current Visit: Yes Status: Acute Plan to address problem: Sec to IV Fluids Will get ECHO IV Lasix one dose given yesterday with significant improvement (4) COPD with exacerbation Current Visit: Yes Status: Acute Plan to address problem: Started on Duonebs and IV solumedroll and IV Levaquin (5) Hyperkalemia Current Visit: Yes Status: Acute Plan to address problem: Improved to normal (6) Hyponatremia Current Visit: Yes Status: Acute Plan to address problem: Improved to baseline (7) Severe malnutrition Current Visit: Yes Status: Chronic Plan to address problem: Dietitian consult (8) DVT prophylaxis Current Visit: Yes Status: Acute Plan to address problem: On Heparin and Gi prophylaxis Subjective Date of service: 09/03/18 Principal diagnosis: DOROTHEA,Encephalopathy Interval history: 58-year-old lady with no known significant medical history admitted with altered mental status, labs significant for severe hyponatremia hyperkalemia and acute kidney injury patient has a known history of smoking 1 and a pack a day was found with some concern for the mental status duration unclear. Denies any known history of kidney disease Denies any NSAID use denies any fevers chills denies any nausea vomiting abdominal pain In Severe renal failure--Improving Objective - Constitutional Vitals: Vital Signs - 12hr 09/03/18 09/03/18 09/03/18 08:07 09:37 10:07 Pulse Rate Respiratory 18 15 16 Rate 09/03/18 12:00 Pulse Rate 88 Respiratory Rate General appearance: Present: mild distress, well-nourished - EENT Eyes: PERRL, EOM intact ENT: hearing intact, clear oral mucosa Ears: bilateral: normal - Neck Neck: supple, normal ROM - Respiratory Respiratory effort: normal Respiratory: bilateral: CTA, rales, rhonchi - Breasts Breasts: normal - Cardiovascular Rhythm: regular Heart Sounds: Present: S1 & S2. Absent: gallop, rub Extremities: pulses intact, No edema, normal color, Full ROM - Gastrointestinal General gastrointestinal: Present: soft, non-tender, non-distended, normal bowel sounds - Genitourinary Female genitourinary: normal - Integumentary Integumentary: clear, warm, dry - Musculoskeletal Musculoskeletal: 1, strength equal bilaterally - Neurologic Neurologic: moves all extremities - Psychiatric Psychiatric: appropriate mood/affect, intact judgment & insight, memory intact, depressed - Labs CBC & Chem 7: 09/04/18 05:20 09/05/18 05:04 Labs: Abnormal lab results 09/02/18 09/03/18 09/03/18 Range/Units 20:29 05:03 08:02 Sodium 128 L (137-145) mmol/L Chloride 91.3 L (98-107) mmol/L BUN 48 H (7-17) mg/dL Creatinine 1.7 H (0.7-1.2) mg/dL Glucose 110 H (65-100) mg/dL POC Glucose 112 H 115 H (70-105) Calcium 8.3 L (8.4-10.2) mg/dL 09/03/18 Range/Units 12:15 Sodium (137-145) mmol/L Chloride (98-107) mmol/L BUN (7-17) mg/dL Creatinine (0.7-1.2) mg/dL Glucose (65-100) mg/dL POC Glucose 321 H (70-105) Calcium (8.4-10.2) mg/dL
[2018-09-03] MEDS ORDERED: LASIX IV ONE (18:00)
[2018-09-03] MEDS ORDERED: K-DUR PO ONE (18:03)
[2018-09-04] MEDS: HumaLOG SUB-Q SCH ×5 (00:53→22:04)
[2018-09-04 05:38] LABS: Basophils # (Auto) 0.2 K/mm3 (0.0-0.1); Hematocrit 33.5 % (30.3-42.9); Hemoglobin 10.7 gm/dl (10.1-14.3); Lymphocytes # (Auto) 1.7 K/mm3 (1.2-5.4); Lymphocytes % (Auto) 9.2 % (13.4-35.0); Mean Corpuscular HGB Conc 32 % (30-34); Mean Corpuscular Volume 72 fl (79-97); Monocytes # (Auto) 1.4 K/mm3 (0.0-0.8); Monocytes % (Auto) 7.2 % (0.0-7.3); Red Blood Count 4.64 M/mm3 (3.65-5.03); Red Cell Distribution Width 18.7 % (13.2-15.2)
[2018-09-04 05:40] LABS: Platelet Count 260 K/mm3 (140-440)
[2018-09-04 05:56] LABS: Albumin 3.3 g/dL (3.9-5); Calcium 9.2 mg/dL (8.4-10.2)
[2018-09-04] MEDS: ROXICODONE PO PRN (05:59)
[2018-09-04] MEDS: SODIUM CHLORIDE FLUSH SYRINGE 10 ML IV SCH ×3 (06:00→22:04)
[2018-09-04 07:56] LABS: Calcium 9.1 mg/dL (8.4-10.2)
--- NOTE | 2018-09-04 08:15 | XRay Report ---
PORTABLE CHEST INDICATION: Pulmonary edema followup. COMPARISON: Yesterday. FINDINGS: Portable, frontal chest radiograph again demonstrates left more than right lung infiltrates/opacities centrally, greatest perihilar and in the lower lung zones. Right lateral costophrenic angle blunting/fluid. Slightly less prominent cephalization and improved density along the right fissure. Stable cardiomediastinal silhouette and extensive right apical pleural thickening/opacity with slightly spiculated possible postsurgical changes. Please correlate. EKG leads. Intact bones. CONCLUSION: 1. 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 2. Various other findings, including right apical changes, as detailed above. Thank you for the opportunity to participate in this patient's care.
[2018-09-04] MEDS ORDERED: ATROVENT IH ONE ×2 (09:15→10:16)
[2018-09-04] MEDS ORDERED: PROVENTIL IH ONE (09:15)
[2018-09-04] MEDS: HEPARIN SUB-Q SCH ×2 (09:45→22:03)
[2018-09-04] MEDS: PEPCID PO SCH ×2 (09:46→22:04)
[2018-09-04] MEDS: LOPRESSOR PO SCH ×2 (09:46→22:04)
--- NOTE | 2018-09-04 12:23 | Progress Note ---
Assessment and Plan - Patient Problems (1) Acute renal failure Current Visit: Yes Status: Acute Plan to address problem: Acute renal failure improving Baseline creatinine unknown Admission creatinine of 7 in the setting of apparent volume depletion Peak creatinine of 7.0 Current creatinine 1.6 Received sepsis protocol 30 mL per KG Discontinue IVF repeat CXR with pulmonary edema. CT revealed distended bladder but otherwise negative Ward in place Recheck labs (2) Altered mental status Current Visit: Yes Status: Acute Plan to address problem: Altered mental status improving In the setting of electrolytes abnormalities, acute kidney injury likely 2/2 metabolic/toxic encephalopathy (3) Hyponatremia Current Visit: Yes Status: Acute Plan to address problem: Hyponatremia moderately severe secondary to intravascular depletion and dehydration now with iatrogenic hyponatremia on half normal saline Sodium level is 132 now with iatrogenic volume overload Will continue diuretics. Ward catheter in place (4) Acidosis Current Visit: Yes Status: Acute Plan to address problem: Metabolic acidosis secondary to acute kidney injury and iatrogenic 2/2 saline in fusion continue diuresis. Recheck renal function panel (5) Volume overload Current Visit: Yes Status: Acute Qualifiers: Hypervolemia type: unspecified Qualified Code(s): E87.70 - Fluid overload, unspecified Plan to address problem: Volume overload: CXr with pulmonary edema will give lasix 80mg IV Subjective Interval history: 58-year-old lady with no known significant medical history admitted with altered mental status, labs significant for severe hyponatremia hyperkalemia and acute kidney injury patient has a known history of smoking 1 and a pack a day was found with some concern for the mental status duration unclear Patient seen today more awake and responsive She remains short of breath agitated is not using oxygen as prescribed. good urine output Objective - Vital Signs Vital signs: Vital Signs - 12hr 09/04/18 09/04/18 09/04/18 03:53 04:45 08:50 Temperature 98.0 F 97.4 F L Pulse Rate 111 H Respiratory 18 Rate Blood Pressure 145/95 158/105 O2 Sat by Pulse 84 89 87 Oximetry 09/04/18 10:00 Temperature Pulse Rate Respiratory Rate Blood Pressure O2 Sat by Pulse 95 Oximetry - General Appearance General appearance: well-developed, well-nourished EENT: ATNC, PERRL, mucous membranes moist Neck: no JVD Respiratory: Present: Ronchi Cardiology: regular, S1S2 Gastrointestinal: normal, normoactive bowel sounds Neurologic: no focal deficit, alert and oriented x3, CN 3-12 intact Psychiatric: mood/affect appropriate - Lab 09/04/18 05:20 09/04/18 06:46 Most recent lab results Calcium 9.1 mg/dL (8.4-10.2) 09/04/18 06:46 63 mmol/L 09/01/18 06:12 - Imaging Chest x-ray: image reviewed (I reviewed CXR with bilateral patchy opacities which is significant for pulmonary edema. ) Medications & Allergies - Medications Allergies/Adverse Reactions: Allergies NSAIDS (Non-Steroidal Anti-Inflamma Allergy (Verified 08/31/18 09:26) Hives Home Medications: Home Medications Medication Instructions Recorded Confirmed Last Taken Type Metoprolol [Lopressor] 25 mg PO BID 08/31/18 08/31/18 Unknown History Oxycodone HCl [oxyCODONE] 10 mg PO Q4H PRN 08/31/18 08/31/18 Unknown History metroNIDAZOLE [Flagyl] 500 mg PO Q8HR 08/31/18 08/31/18 Unknown History Active Medications: Generic Name Dose Route Start Last Admin Trade Name Freq PRN Reason Stop Dose Admin Acetaminophen 650 mg 08/31/18 21:00 09/02/18 13:10 Tylenol PO 650 mg Q4H PRN Administration Pain MILD(1-3)/Fever >100.5/COLLAZO Famotidine 10 mg 09/01/18 22:00 09/04/18 09:46 Pepcid PO 10 mg BID DUSTIN Administration Furosemide 80 mg 09/04/18 13:02 Lasix IV 09/04/18 13:03 ONCE ONE Heparin Sodium (Porcine) 5,000 unit 09/01/18 10:00 09/04/18 09:45 Heparin SUB-Q 5,000 unit Q12HR DUSTIN Administration Insulin Human Lispro 0 unit 08/31/18 16:30 09/04/18 07:53 Humalog SUB-Q Not Given ACHS [facility] Protocol Metoprolol Tartrate 25 mg 08/31/18 22:00 09/04/18 09:46 Lopressor PO 25 mg BID DUSTIN Administration Morphine Sulfate 2 mg 08/31/18 21:00 09/03/18 21:05 Morphine IV 2 mg Q4H PRN Administration Pain, Moderate (4-6) Ondansetron HCl 4 mg 08/31/18 21:00 09/01/18 18:56 Zofran IV 4 mg Q8H PRN Administration Nausea And Vomiting Oxycodone HCl 10 mg 09/02/18 21:24 09/04/18 05:59 Roxicodone PO 10 mg Q4H PRN Administration Pain, Moderate (4-6) Sodium Chloride 10 ml 08/31/18 22:00 09/04/18 09:48 Sodium Chloride Flush Syringe 10 Ml IV 10 ml BID DUSTIN Administration Sodium Chloride 10 ml 08/31/18 21:00 Sodium Chloride Flush Syringe 10 Ml IV PRN PRN LINE FLUSH
[2018-09-04] MEDS ORDERED: LASIX IV ONE (13:02)
--- NOTE | 2018-09-04 15:31 | Consultation ---
History of Present Illness - Reason for Consult Consult date: 09/04/18 Reason for consult: Mental Health Evaluation Requesting physician: RIC BEASLEY - Chief Complaint Chief complaint: "Can you come back tomorrow" - History of Present Psychiatric Illness 58-year-old white female who presented to the ER for AMS. Psychiatry was consulted to see the patient for depression. Today the patient asked me the provider to come back in 24 hours. Per the patient's nurse, she stated that the patient have been experiencing SOB throughout the shift. No gestures of SI/HI's. Medications and Allergies Allergies Allergy/AdvReac Type Severity Reaction Status Date / Time NSAIDS (Non-Steroidal Allergy Hives Verified 08/31/18 09:26 Anti-Inflamma Home Medications Medication Instructions Recorded Confirmed Last Taken Type Metoprolol [Lopressor] 25 mg PO BID 08/31/18 08/31/18 Unknown History Oxycodone HCl [oxyCODONE] 10 mg PO Q4H PRN 08/31/18 08/31/18 Unknown History metroNIDAZOLE [Flagyl] 500 mg PO Q8HR 08/31/18 08/31/18 Unknown History Active Meds: Active Medications Acetaminophen (Tylenol) 650 mg PO Q4H PRN PRN Reason: Pain MILD(1-3)/Fever >100.5/COLLAZO Last Admin: 09/02/18 13:10 Dose: 650 mg Documented by: Famotidine (Pepcid) 10 mg PO BID [facility] Last Admin: 09/04/18 09:46 Dose: 10 mg Documented by: Heparin Sodium (Porcine) (Heparin) 5,000 unit SUB-Q Q12HR [facility] Last Admin: 09/04/18 09:45 Dose: 5,000 unit Documented by: Insulin Human Lispro (Humalog) 0 unit SUB-Q [facility]; Protocol Last Admin: 09/04/18 11:30 Dose: Not Given Documented by: Metoprolol Tartrate (Lopressor) 25 mg PO BID [facility] Last Admin: 09/04/18 09:46 Dose: 25 mg Documented by: Morphine Sulfate (Morphine) 2 mg IV Q4H PRN PRN Reason: Pain, Moderate (4-6) Last Admin: 09/03/18 21:05 Dose: 2 mg Documented by: Ondansetron HCl (Zofran) 4 mg IV Q8H PRN PRN Reason: Nausea And Vomiting Last Admin: 09/01/18 18:56 Dose: 4 mg Documented by: Oxycodone HCl (Roxicodone) 10 mg PO Q4H PRN PRN Reason: Pain, Moderate (4-6) Last Admin: 09/04/18 05:59 Dose: 10 mg Documented by: Sodium Chloride (Sodium Chloride Flush Syringe 10 Ml) 10 ml IV BID DUSTIN Last Admin: 09/04/18 09:48 Dose: 10 ml Documented by: Sodium Chloride (Sodium Chloride Flush Syringe 10 Ml) 10 ml IV PRN PRN PRN Reason: LINE FLUSH Past psychiatric history - Past Medical History Past Medical History: other (Unable to obtain) Past Surgical History: Other (Unable to obtain ) - past Psychiatric treatment and history psychiatric treatment history: Unable to obtain a psy hx and fam psy hx. - Social History Social history: other (Unable to obtain ) Mental Status Exam - Vital signs Last Vital Signs Temp 98.6 F 09/04/18 12:41 Pulse 97 H 09/04/18 12:41 Resp 20 09/04/18 12:41 BP 162/102 09/04/18 12:41 Pulse Ox 92 09/04/18 12:41 - Exam Narrative exam: Unab;le to complete the MSE because of the patient's condition. Results Result Diagrams: 09/04/18 05:20 09/04/18 06:46 Abnormal lab results 09/03/18 09/03/18 09/04/18 Range/Units 17:48 20:44 05:20 WBC 18.9 H (4.5-11.0) K/mm3 MCV 72 L (79-97) fl MCH 23 L (28-32) pg RDW 18.7 H (13.2-15.2) % Lymph % (Auto) 9.2 L (13.4-35.0) % [place] # 1.4 H (0.0-0.8) K/mm3 Baso # 0.2 H (0.0-0.1) K/mm3 Seg Neutrophils % 82.6 H (40.0-70.0) % Seg Neutrophils # 15.6 H (1.8-7.7) K/mm3 POC ABG pO2 (80-105) Sodium (137-145) mmol/L Chloride (98-107) mmol/L Carbon Dioxide (22-30) mmol/L BUN (7-17) mg/dL Creatinine (0.7-1.2) mg/dL POC Glucose 185 H 118 H (70-105) AST (5-40) units/L Total Protein (6.3-8.2) g/dL Albumin (3.9-5) g/dL 09/04/18 09/04/18 09/04/18 Range/Units 05:20 06:46 12:48 WBC (4.5-11.0) K/mm3 MCV (79-97) fl MCH (28-32) pg RDW (13.2-15.2) % Lymph % (Auto) (13.4-35.0) % [place] # (0.0-0.8) K/mm3 Baso # (0.0-0.1) K/mm3 Seg Neutrophils % (40.0-70.0) % Seg Neutrophils # (1.8-7.7) K/mm3 POC ABG pO2 (80-105) Sodium 132 L 132 L (137-145) mmol/L Chloride 92.2 L 92.4 L (98-107) mmol/L Carbon Dioxide 19 L 19 L (22-30) mmol/L BUN 51 H 52 H (7-17) mg/dL Creatinine 1.6 H 1.6 H (0.7-1.2) mg/dL POC Glucose 156 H (70-105) AST 54 H (5-40) units/L Total Protein 6.1 L (6.3-8.2) g/dL Albumin 3.3 L (3.9-5) g/dL 09/04/18 Range/Units 13:17 WBC (4.5-11.0) K/mm3 MCV (79-97) fl MCH (28-32) pg RDW (13.2-15.2) % Lymph % (Auto) (13.4-35.0) % [place] # (0.0-0.8) K/mm3 Baso # (0.0-0.1) K/mm3 Seg Neutrophils % (40.0-70.0) % Seg Neutrophils # (1.8-7.7) K/mm3 POC ABG pO2 55 L (80-105) Sodium (137-145) mmol/L Chloride (98-107) mmol/L Carbon Dioxide (22-30) mmol/L BUN (7-17) mg/dL Creatinine (0.7-1.2) mg/dL POC Glucose (70-105) AST (5-40) units/L Total Protein (6.3-8.2) g/dL Albumin (3.9-5) g/dL All other labs normal. Assessment and Plan Assessment and plan: Impression: Today the patient asked me the provider to come back in 24 hours. Recommendation/Plan: Attempt to reassess the patient in 24 hours. Will staff with Dr Mercy bardales.
--- NOTE | 2018-09-04 17:36 | Progress Note ---
Assessment and Plan - Patient Problems (1) DOROTHEA (acute kidney injury) Current Visit: Yes Status: Acute Plan to address problem: Sec to ATN Improved significantly From 90/7.1 to 53/1.4 (2) Hyperkalemia Current Visit: Yes Status: Acute Plan to address problem: Improved to normal (3) Hyponatremia Current Visit: Yes Status: Acute Plan to address problem: Improved to baseline (4) Acute pulmonary edema Current Visit: Yes Status: Acute Plan to address problem: Sec to IV Fluids Will get ECHO IV Lasix one dose given yesterday with significant improvement (5) COPD with exacerbation Current Visit: Yes Status: Acute Plan to address problem: Started on Duonebs and IV solumedroll and IV Levaquin (6) Severe malnutrition Current Visit: Yes Status: Chronic Plan to address problem: Dietitian consult (7) DVT prophylaxis Current Visit: Yes Status: Acute Plan to address problem: On Heparin and Gi prophylaxis Subjective Date of service: 09/04/18 Principal diagnosis: DOROTHEA,COPD Encephalopathy Interval history: 58-year-old lady with no known significant medical history admitted with altered mental status, labs significant for severe hyponatremia hyperkalemia and acute kidney injury patient has a known history of smoking 1 and a pack a day was found with some concern for the mental status duration unclear. Denies any known history of kidney disease Denies any NSAID use denies any fevers chills denies any nausea vomiting abdominal pain In Severe renal failure--Improving Objective - Constitutional Vitals: Vital Signs - 12hr 09/04/18 09/04/18 09/04/18 08:50 10:00 12:41 Temperature 97.4 F L 98.6 F Pulse Rate 111 H 97 H Respiratory 20 Rate Blood Pressure 158/105 162/102 O2 Sat by Pulse 87 95 92 Oximetry 09/04/18 16:39 Temperature Pulse Rate Respiratory Rate Blood Pressure O2 Sat by Pulse 93 Oximetry General appearance: Present: mild distress, well-nourished - EENT Eyes: PERRL, EOM intact ENT: hearing intact, clear oral mucosa Ears: bilateral: normal - Neck Neck: supple, normal ROM - Respiratory Respiratory effort: normal Respiratory: bilateral: CTA, rhonchi, wheezing - Breasts Breasts: normal - Cardiovascular Heart rate: 88 Rhythm: regular Heart Sounds: Present: S1 & S2. Absent: gallop, rub Extremities: pulses intact, No edema, normal color, Full ROM - Gastrointestinal General gastrointestinal: Present: soft, non-tender, non-distended, normal bowel sounds - Genitourinary Female genitourinary: normal - Integumentary Integumentary: clear, warm, dry - Musculoskeletal Musculoskeletal: 1, strength equal bilaterally - Neurologic Neurologic: moves all extremities - Psychiatric Psychiatric: memory intact, appropriate mood/affect, intact judgment & insight - Labs CBC & Chem 7: 09/04/18 05:20 09/05/18 05:04 Labs: Abnormal lab results 09/03/18 09/03/18 09/04/18 Range/Units 17:48 20:44 05:20 WBC 18.9 H (4.5-11.0) K/mm3 MCV 72 L (79-97) fl MCH 23 L (28-32) pg RDW 18.7 H (13.2-15.2) % Lymph % (Auto) 9.2 L (13.4-35.0) % [place] # 1.4 H (0.0-0.8) K/mm3 Baso # 0.2 H (0.0-0.1) K/mm3 Seg Neutrophils % 82.6 H (40.0-70.0) % Seg Neutrophils # 15.6 H (1.8-7.7) K/mm3 POC ABG pO2 (80-105) Sodium (137-145) mmol/L Chloride (98-107) mmol/L Carbon Dioxide (22-30) mmol/L BUN (7-17) mg/dL Creatinine (0.7-1.2) mg/dL POC Glucose 185 H 118 H (70-105) AST (5-40) units/L Total Protein (6.3-8.2) g/dL Albumin (3.9-5) g/dL 09/04/18 09/04/18 09/04/18 Range/Units 05:20 06:46 12:48 WBC (4.5-11.0) K/mm3 MCV (79-97) fl MCH (28-32) pg RDW (13.2-15.2) % Lymph % (Auto) (13.4-35.0) % [place] # (0.0-0.8) K/mm3 Baso # (0.0-0.1) K/mm3 Seg Neutrophils % (40.0-70.0) % Seg Neutrophils # (1.8-7.7) K/mm3 POC ABG pO2 (80-105) Sodium 132 L 132 L (137-145) mmol/L Chloride 92.2 L 92.4 L (98-107) mmol/L Carbon Dioxide 19 L 19 L (22-30) mmol/L BUN 51 H 52 H (7-17) mg/dL Creatinine 1.6 H 1.6 H (0.7-1.2) mg/dL POC Glucose 156 H (70-105) AST 54 H (5-40) units/L Total Protein 6.1 L (6.3-8.2) g/dL Albumin 3.3 L (3.9-5) g/dL 09/04/18 Range/Units 13:17 WBC (4.5-11.0) K/mm3 MCV (79-97) fl MCH (28-32) pg RDW (13.2-15.2) % Lymph % (Auto) (13.4-35.0) % [place] # (0.0-0.8) K/mm3 Baso # (0.0-0.1) K/mm3 Seg Neutrophils % (40.0-70.0) % Seg Neutrophils # (1.8-7.7) K/mm3 POC ABG pO2 55 L (80-105) Sodium (137-145) mmol/L Chloride (98-107) mmol/L Carbon Dioxide (22-30) mmol/L BUN (7-17) mg/dL Creatinine (0.7-1.2) mg/dL POC Glucose (70-105) AST (5-40) units/L Total Protein (6.3-8.2) g/dL Albumin (3.9-5) g/dL CXR CONCLUSION: 1. 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 2. Various other findings, including right apical changes, as detailed above. - Imaging and cardiology Chest x-ray: report reviewed
[2018-09-04] MEDS: ZOSYN/NS 2.25 GM/50ML 2.25 GM/50 ML BAG IV SCH ×2 (18:39→22:07)
[2018-09-04] MEDS: MORPHINE IV PRN (22:01)
[2018-09-05] MEDS: ZOSYN/NS 2.25 GM/50ML 2.25 GM/50 ML BAG IV SCH ×3 (06:00→21:56)
--- NOTE | 2018-09-05 07:43 | Progress Note ---
Assessment and Plan - Patient Problems (1) Encephalopathy acute Current Visit: Yes Status: Acute Plan to address problem: Multifactorial Hypoxia DOROTHEA Electrolyte abnormalities (2) DOROTHEA (acute kidney injury) Current Visit: Yes Status: Acute Plan to address problem: Sec to ATN Improved significantly From 90/7.1 to 48/1.7 (3) COPD with exacerbation Current Visit: Yes Status: Acute Plan to address problem: Started on Duonebs and IV solumedroll and IV Levaquin (4) Hyperkalemia Current Visit: Yes Status: Acute Plan to address problem: Improved to normal (5) Hyponatremia Current Visit: Yes Status: Acute Plan to address problem: Improved to baseline (6) Severe malnutrition Current Visit: Yes Status: Chronic Plan to address problem: Dietitian consult (7) DVT prophylaxis Current Visit: Yes Status: Acute Plan to address problem: On Heparin and Gi prophylaxis Subjective Date of service: 09/02/18 Principal diagnosis: DOROTHEA,Encephalopathy Interval history: 58-year-old lady with no known significant medical history admitted with altered mental status, labs significant for severe hyponatremia hyperkalemia and acute kidney injury patient has a known history of smoking 1 and a pack a day was found with some concern for the mental status duration unclear. Denies any known history of kidney disease Denies any NSAID use denies any fevers chills denies any nausea vomiting abdominal pain In Severe renal failure--Improving Objective - Constitutional Vitals: Vital Signs - 12hr 09/04/18 09/04/18 09/04/18 19:55 20:00 21:49 Temperature Pulse Rate 121 H Respiratory 20 Rate Blood Pressure O2 Sat by Pulse 94 Oximetry 09/04/18 09/04/18 09/05/18 22:01 23:02 03:19 Temperature 97.4 F L 98.4 F Pulse Rate 112 H 97 H Respiratory 18 20 22 Rate Blood Pressure 149/89 150/107 O2 Sat by Pulse 93 85 Oximetry 09/05/18 03:34 Temperature 98.0 F Pulse Rate Respiratory 19 Rate Blood Pressure 162/85 O2 Sat by Pulse Oximetry General appearance: Present: mild distress, well-nourished - EENT Eyes: PERRL, EOM intact ENT: hearing intact, clear oral mucosa Ears: bilateral: normal - Neck Neck: supple, normal ROM - Respiratory Respiratory effort: normal Respiratory: bilateral: CTA - Breasts Breasts: normal - Cardiovascular Heart rate: 88 Rhythm: regular Heart Sounds: Present: S1 & S2. Absent: gallop, rub Extremities: pulses intact, No edema, normal color, Full ROM - Gastrointestinal General gastrointestinal: Present: soft, non-tender, non-distended, normal bowel sounds - Genitourinary Female genitourinary: normal - Integumentary Integumentary: clear, warm, dry - Musculoskeletal Musculoskeletal: 1, strength equal bilaterally - Neurologic Neurologic: moves all extremities - Psychiatric Psychiatric: memory intact, appropriate mood/affect, intact judgment & insight - Labs CBC & Chem 7: 09/04/18 05:20 09/05/18 05:04 Labs: Abnormal lab results 09/04/18 09/04/18 09/04/18 Range/Units 06:46 12:48 13:17 POC ABG pO2 55 L (80-105) Sodium 132 L (137-145) mmol/L Potassium (3.6-5.0) mmol/L Chloride 92.4 L (98-107) mmol/L Carbon Dioxide 19 L (22-30) mmol/L BUN 52 H (7-17) mg/dL Creatinine 1.6 H (0.7-1.2) mg/dL Glucose (65-100) mg/dL POC Glucose 156 H (70-105) 09/04/18 09/04/18 09/05/18 Range/Units 17:32 20:40 05:04 POC ABG pO2 (80-105) Sodium 136 L (137-145) mmol/L Potassium 3.1 L D (3.6-5.0) mmol/L Chloride 90.8 L (98-107) mmol/L Carbon Dioxide (22-30) mmol/L BUN 53 H (7-17) mg/dL Creatinine 1.4 H (0.7-1.2) mg/dL Glucose 149 H (65-100) mg/dL POC Glucose 139 H 129 H (70-105)
--- NOTE | 2018-09-05 08:02 | Consultation ---
History of Present Illness Consult date: 09/05/18 Requesting physician: RIC BEASLEY Reason for consult: COPD, hypoxemia History of present illness: The patient is a 58-year-old female presenting with chief complaint of altered mental status. Per EMS the patient was found on the floor with altered mental status. EMS states family reported the patient was not behaving like herself and the last known well time is unknown. Patient initially denied complaints than states she has lower abdominal pain which is chronic for her. Was admitted several days ago, was in acute renal failure at the time. I was paged stat, this morning for worsening hypoxemia and tacyhpnea. Patient was seen and examined. Vitals, labs, medications, cahrt and imaging were reviewed. She was noticed to be desaturation on oxygen at 4L/min, stat ABG was ordered Patient was placed on high flow oxygen with prn BIPAP and transferred to the ICU Stat lower extremity dopplers was ordered and empiric therapy for acute DVT/PE was given (treatment dose lovenox) Stat Echocardiogram, BNP and Troponins were ordered. Discussed extensively with Dr. Baum, hospitalist service Past History Past Medical History: other (Unable to obtain) Past Surgical History: Other (Unable to obtain ) Social history: other (Unable to obtain ) Medications and Allergies Allergies Allergy/AdvReac Type Severity Reaction Status Date / Time NSAIDS (Non-Steroidal Allergy Hives Verified 08/31/18 09:26 Anti-Inflamma Home Medications Medication Instructions Recorded Confirmed Last Taken Type Metoprolol [Lopressor] 25 mg PO BID 08/31/18 08/31/18 Unknown History Oxycodone HCl [oxyCODONE] 10 mg PO Q4H PRN 08/31/18 08/31/18 Unknown History metroNIDAZOLE [Flagyl] 500 mg PO Q8HR 08/31/18 08/31/18 Unknown History Active Meds: Active Medications Acetaminophen (Tylenol) 650 mg PO Q4H PRN PRN Reason: Pain MILD(1-3)/Fever >100.5/COLLAZO Last Admin: 09/02/18 13:10 Dose: 650 mg Documented by: Albuterol/Ipratropium (Duoneb *Not For Prn Use*) 1 ampul IH QIDRT [facility] Famotidine (Pepcid) 10 mg PO BID [facility] Last Admin: 09/04/18 22:04 Dose: 10 mg Documented by: Heparin Sodium (Porcine) (Heparin) 5,000 unit SUB-Q Q12HR [facility] Last Admin: 09/04/18 22:03 Dose: 5,000 unit Documented by: Piperacillin Sod/Tazobactam Sod (Zosyn/Ns 2.25 Gm/50ml) 2.25 gm in 50 mls @ 100 mls/hr IV Q8HR [facility]; Protocol Last Admin: 09/05/18 06:00 Dose: 100 mls/hr Documented by: Insulin Human Lispro (Humalog) 0 unit SUB-Q ACHS [facility]; Protocol Last Admin: 09/04/18 22:04 Dose: Not Given Documented by: Methylprednisolone Sodium Succinate (Solu-Medrol) 60 mg IV Q8HR [facility] Metoprolol Tartrate (Lopressor) 25 mg PO BID [facility] Last Admin: 09/04/18 22:04 Dose: 25 mg Documented by: Morphine Sulfate (Morphine) 2 mg IV Q4H PRN PRN Reason: Pain, Moderate (4-6) Last Admin: 09/04/18 22:01 Dose: 2 mg Documented by: Ondansetron HCl (Zofran) 4 mg IV Q8H PRN PRN Reason: Nausea And Vomiting Last Admin: 09/01/18 18:56 Dose: 4 mg Documented by: Oxycodone HCl (Roxicodone) 10 mg PO Q4H PRN PRN Reason: Pain, Moderate (4-6) Last Admin: 09/04/18 05:59 Dose: 10 mg Documented by: Sodium Chloride (Sodium Chloride Flush Syringe 10 Ml) 10 ml IV BID [facility] Last Admin: 09/04/18 22:04 Dose: 10 ml Documented by: Sodium Chloride (Sodium Chloride Flush Syringe 10 Ml) 10 ml IV PRN PRN PRN Reason: LINE FLUSH Review of Systems Constitutional: weight loss, no weight gain, no fever, no chills, no sweats Cardiovascular: shortness of breath, no chest pain, no orthopnea, no rapid/irregular heart beat, no lightheadedness Respiratory: shortness of breath, no cough, no cough with sputum, no excessive sputum, no hemoptysis, no congestion Gastrointestinal: abdominal pain, no nausea, no vomiting, no diarrhea, no constipation Neurological: no paralysis, no weakness, no numbness, no seizures, no syncope, no tremors Physical Examination Vital signs: Vital Signs Temp Pulse Resp BP Pulse Ox 97.7 F 81 16 72/48 95 08/31/18 09:21 08/31/18 09:21 08/31/18 09:21 08/31/18 09:21 08/31/18 09:21 General appearance: alert, appears uncomfortable, other (moderate respiratory distress, cachexia) Eyes: non-icteric ENT: oropharynx dry Neck: supple, no lymphadenopathy, no JVD Effort: very labored Ascultation: Bilateral: diminished breath sounds, rhonchi Cardiovascular: regular rate and rhythm, other (S1,S2, nor urmurs, gallops or rubs) Gastrointestinal: normoactive bowel sounds, soft, non-tender, non-distended, other (colostomy bag) Integumentary: other (neurofibromatosis) Extremities: no cyanosis, no edema, pulses normal, no ischemia or petechiae pupils equal and round, CN II-XII normal, motor strength normal and mood appropriate, anxious Results - Laboratory Findings CBC and BMP: 09/04/18 05:20 09/05/18 05:04 ABG POC ABG pH 7.444 (7.35-7.45) 09/04/18 13:17 POC ABG pO2 55 (80-105) L 09/04/18 13:17 POC ABG HCO3 17.8 (22-26 mml/L) 09/04/18 13:17 POC ABG Total CO2 19 (23-27mmol/L) 09/04/18 13:17 POC ABG O2 Sat 90 09/04/18 13:17 Abnormal lab findings: Abnormal Labs 08/31/18 08/31/18 08/31/18 09:47 09:47 09:47 WBC 15.2 H Hgb Hct MCV 73 L MCH 23 L RDW 19.3 H Lymph % (Auto) 6.2 L Parke % (Auto) Lymph # 0.9 L Parke # 1.0 H Baso # Seg Neutrophils % 87.1 H Seg Neutrophils # 13.2 H POC ABG pO2 Sodium 121 L Potassium 6.5 H* Chloride 76.3 L Carbon Dioxide 18 L BUN 90 H Creatinine 7.1 H Glucose POC Glucose Calcium AST 63 H NT-Pro-B Natriuret Pep Total Protein Albumin 3.6 L Free T4 1.52 H 08/31/18 08/31/18 08/31/18 09:47 14:52 21:18 WBC Hgb Hct MCV MCH RDW Lymph % (Auto) Parke % (Auto) Lymph # Parke # Baso # Seg Neutrophils % Seg Neutrophils # POC ABG pO2 Sodium 125 L 129 L Potassium 5.5 H Chloride 85.4 L 84.5 L Carbon Dioxide 18 L BUN 84 H 79 H Creatinine 6.0 H 4.9 H Glucose 108 H POC Glucose Calcium AST NT-Pro-B Natriuret Pep 1077 H Total Protein Albumin Free T4 08/31/18 09/01/18 09/01/18 22:27 08:23 10:10 WBC 4.1 L Hgb 9.6 L Hct 29.1 L MCV 72 L MCH 24 L RDW 19.0 H Lymph % (Auto) 11.6 L Parke % (Auto) 11.2 H Lymph # 0.5 L [place]ke # Baso # Seg Neutrophils % 76.6 H Seg Neutrophils # POC ABG pO2 Sodium Potassium Chloride Carbon Dioxide BUN Creatinine Glucose POC Glucose 132 H 113 H Calcium AST NT-Pro-B Natriuret Pep Total Protein Albumin Free T4 09/01/18 09/01/18 09/01/18 10:20 11:28 20:43 WBC Hgb Hct MCV MCH RDW Lymph % (Auto) [place]ke % (Auto) Lymph # [place] # Baso # Seg Neutrophils % Seg Neutrophils # POC ABG pO2 Sodium 136 L D Potassium Chloride 91.4 L Carbon Dioxide BUN 71 H Creatinine 3.3 H Glucose 134 H POC Glucose 147 H 134 H Calcium AST 46 H NT-Pro-B Natriuret Pep Total Protein 6.0 L D Albumin 3.1 L Free T4 09/02/18 09/02/18 09/02/18 05:40 08:21 13:22 WBC Hgb Hct MCV MCH RDW Lymph % (Auto) [place] % (Auto) Lymph # [place] # Baso # Seg Neutrophils % Seg Neutrophils # POC ABG pO2 Sodium 134 L Potassium Chloride 91.4 L Carbon Dioxide BUN 61 H Creatinine 2.3 H Glucose 119 H POC Glucose 130 H 123 H Calcium AST NT-Pro-B Natriuret Pep Total Protein Albumin Free T4 09/02/18 09/03/18 09/03/18 20:29 05:03 08:02 WBC Hgb Hct MCV MCH RDW Lymph % (Auto) [place] % (Auto) Lymph # [place] # Baso # Seg Neutrophils % Seg Neutrophils # POC ABG pO2 Sodium 128 L Potassium Chloride 91.3 L Carbon Dioxide BUN 48 H Creatinine 1.7 H Glucose 110 H POC Glucose 112 H 115 H Calcium 8.3 L AST NT-Pro-B Natriuret Pep Total Protein Albumin Free T4 09/03/18 09/03/18 09/03/18 12:15 17:48 20:44 WBC Hgb Hct MCV MCH RDW Lymph % (Auto) [place]ke % (Auto) Lymph # [place] # Baso # Seg Neutrophils % Seg Neutrophils # POC ABG pO2 Sodium Potassium Chloride Carbon Dioxide BUN Creatinine Glucose POC Glucose 321 H 185 H 118 H Calcium AST NT-Pro-B Natriuret Pep Total Protein Albumin Free T4 09/04/18 09/04/18 09/04/18 05:20 05:20 06:46 WBC 18.9 H Hgb Hct MCV 72 L MCH 23 L RDW 18.7 H Lymph % (Auto) 9.2 L [place]ke % (Auto) Lymph # Parke # 1.4 H Baso # 0.2 H Seg Neutrophils % 82.6 H Seg Neutrophils # 15.6 H POC ABG pO2 Sodium 132 L 132 L Potassium Chloride 92.2 L 92.4 L Carbon Dioxide 19 L 19 L BUN 51 H 52 H Creatinine 1.6 H 1.6 H Glucose POC Glucose Calcium AST 54 H NT-Pro-B Natriuret Pep Total Protein 6.1 L Albumin 3.3 L Free T4 09/04/18 09/04/18 09/04/18 12:48 13:17 17:32 WBC Hgb Hct MCV MCH RDW Lymph % (Auto) [place]ke % (Auto) Lymph # [place] # Baso # Seg Neutrophils % Seg Neutrophils # POC ABG pO2 55 L Sodium Potassium Chloride Carbon Dioxide BUN Creatinine Glucose POC Glucose 156 H 139 H Calcium AST NT-Pro-B Natriuret Pep Total Protein Albumin Free T4 09/04/18 09/05/18 20:40 05:04 WBC Hgb Hct MCV MCH RDW Lymph % (Auto) Parke % (Auto) Lymph # [place]ke # Baso # Seg Neutrophils % Seg Neutrophils # POC ABG pO2 Sodium 136 L Potassium 3.1 L D Chloride 90.8 L Carbon Dioxide BUN 53 H Creatinine 1.4 H Glucose 149 H POC Glucose 129 H Calcium AST NT-Pro-B Natriuret Pep Total Protein Albumin Free T4 - Diagnostic Findings Chest x-ray: image reviewed (Bilateral alveolar infiltrates with worsening right lower lobe infiltrate) Assessment and Plan -Acute hypoxemic respiratory failure -HAP/Aspiration pneumonia -Severe protein calorie malnutrition -DOROTHEA -s/p Colostomy -Acute metabolic -toxic encephalopathy -Severe protein calorie malnutrition -Tobacco use disorder -Hypokalemia -Serial CXR and ABG -Critical care bundles addressed -Supplemental oxygen to keep O2 sats 90-92% -High flow oxygen, NIPPV support -Bronchodilators -Accuchecks with glycemic control. Target blood glucose <180mg/dL -Hypoglycemia protocol -Aspiration precautions, HOB>40 -NPO for next 24 hours, while monitoring hemodynamics and respiratory status -Agitation/anxiety management -Prevention of delirium, maintenance of sleep-wake cycle -Antibiotic therapy for HAP, recent discharge from [place] -Avoid nephrotoxic agents, adjust all antibiotics and medications for CrCL and GFR -Follow up echo, lower extremity venous dopplers and cardiac biomarkers -Get swallow objective study of swallow function -Limit narcotic analgesia -Nutrition consult -Nicotine withdrawal precautions -Smoking cessation counselling -Get medical records from [place] The patient's worsening hypoxemia is multifactorial- she has worsening right lung infiltrate which could be secondary to aspiration, she may also have a pulmonary embolism. It is unclear why she has a colostomy bag, and with her cachexia it is possible she has had malignancy. Will need to get more history. With her recent renal failure, she is at high risk of contrast induced nephropathy. Will get lower extremity dopplers, biomarkers and echocardiogram to evaluate right heart function as surrogate fro pulmonary embolism. Continue with all supportive care. CONDITION: CRITICAL PROGNOSIS: GUARDED CODE STATUS: FULL CODE Discussed with RT/RN/ Dr. Baum The high probability of a clinically significant, sudden or life-threatening deterioration of the [respiratory, cardiovascular, renal] system(s) required my full and direct attention, intervention and personal management. The aggregate critical care time was [75 ] minutes without overlap. Time includes spent on; [x] Data Review and interpretation [x] Patient assessment and monitoring of vital signs [x] Documentation [x] Medication orders and management
[2018-09-05] MEDS: SOLU-Medrol IV SCH ×3 (08:39→21:51)
[2018-09-05] MEDS: DUONEB *Not for PRN Use IH SCH ×4 (08:49→20:03)
--- NOTE | 2018-09-05 09:14 | Consultation ---
History of Present Illness Consult date: 09/05/18 Consult reason: tachycardia History of present illness: 58 year old female presenting to the hospital on August 31 for AMS. She was found on the floor with AMS. Patient has a history of pain medication use. Electrolytes on admission was compatible with acute renal failure, hyperkalemia, metabolic acidosis. No CPK was checked to rule out rhabdomyolysis. Patient is lying in bed, cachectic, appears to be disheveled. She denies chest pain or shortness of breath. Tele is showing sinus tachycardia. Past History Past Medical History: hypertension Past Surgical History: Other (Colostomy) Social history: other (Unable to obtain ) Medications and Allergies Allergies Allergy/AdvReac Type Severity Reaction Status Date / Time NSAIDS (Non-Steroidal Allergy Hives Verified 08/31/18 09:26 Anti-Inflamma Home Medications Medication Instructions Recorded Confirmed Last Taken Type Metoprolol [Lopressor] 25 mg PO BID 08/31/18 08/31/18 Unknown History Oxycodone HCl [oxyCODONE] 10 mg PO Q4H PRN 08/31/18 08/31/18 Unknown History metroNIDAZOLE [Flagyl] 500 mg PO Q8HR 08/31/18 08/31/18 Unknown History Active Meds: Active Medications Acetaminophen (Tylenol) 650 mg PO Q4H PRN PRN Reason: Pain MILD(1-3)/Fever >100.5/COLLAZO Last Admin: 09/02/18 13:10 Dose: 650 mg Documented by: Albuterol/Ipratropium (Duoneb *Not For Prn Use*) 1 ampul IH QIDRT [facility] Last Admin: 09/05/18 08:49 Dose: 1 ampul Documented by: Famotidine (Pepcid) 10 mg PO BID [facility] Last Admin: 09/04/18 22:04 Dose: 10 mg Documented by: Heparin Sodium (Porcine) (Heparin) 5,000 unit SUB-Q Q12HR [facility] Last Admin: 09/04/18 22:03 Dose: 5,000 unit Documented by: Piperacillin Sod/Tazobactam Sod (Zosyn/Ns 2.25 Gm/50ml) 2.25 gm in 50 mls @ 100 mls/hr IV Q8HR [facility]; Protocol Last Admin: 09/05/18 06:00 Dose: 100 mls/hr Documented by: Insulin Human Lispro (Humalog) 0 unit SUB-Q ACHS [facility]; Protocol Last Admin: 09/04/18 22:04 Dose: Not Given Documented by: Methylprednisolone Sodium Succinate (Solu-Medrol) 60 mg IV Q8HR [facility] Last Admin: 09/05/18 08:39 Dose: 60 mg Documented by: Metoprolol Tartrate (Lopressor) 25 mg PO BID [facility] Last Admin: 09/04/18 22:04 Dose: 25 mg Documented by: Morphine Sulfate (Morphine) 2 mg IV Q4H PRN PRN Reason: Pain, Moderate (4-6) Last Admin: 09/04/18 22:01 Dose: 2 mg Documented by: Ondansetron HCl (Zofran) 4 mg IV Q8H PRN PRN Reason: Nausea And Vomiting Last Admin: 09/01/18 18:56 Dose: 4 mg Documented by: Oxycodone HCl (Roxicodone) 10 mg PO Q4H PRN PRN Reason: Pain, Moderate (4-6) Last Admin: 09/04/18 05:59 Dose: 10 mg Documented by: Sodium Chloride (Sodium Chloride Flush Syringe 10 Ml) 10 ml IV BID [facility] Last Admin: 09/04/18 22:04 Dose: 10 ml Documented by: Sodium Chloride (Sodium Chloride Flush Syringe 10 Ml) 10 ml IV PRN PRN PRN Reason: LINE FLUSH Review of Systems ROS unobtainable: due to mental status Physical Examination Vital Signs Temp Pulse Resp BP Pulse Ox 97.7 F 81 16 72/48 95 08/31/18 09:21 08/31/18 09:21 08/31/18 09:21 08/31/18 09:21 08/31/18 09:21 General appearance: no acute distress, disheveled HEENT: Positive: Mucus Membranes Dry Neck: Positive: neck supple. Negative: JVD/HJR Cardiac: Positive: Tachycardia Lungs: Positive: Normal Breath Sounds Abdomen: Positive: Soft Extremities: Absent: edema Results 09/04/18 05:20 09/05/18 05:04 Comprehensive Metabolic Panel 09/05/18 Range/Units 05:04 Sodium 136 L (137-145) mmol/L Potassium 3.1 L D (3.6-5.0) mmol/L Chloride 90.8 L (98-107) mmol/L Carbon Dioxide 22 (22-30) mmol/L BUN 53 H (7-17) mg/dL Creatinine 1.4 H (0.7-1.2) mg/dL Glucose 149 H (65-100) mg/dL Calcium 9.0 (8.4-10.2) mg/dL - EKG Interpretation EKG shows: tachycardia EKG interpretations - Telemetry EKG Rhythm: Sinus Tachycardia Assessment and Plan Altered mental status Acute renal failure Metabolic acidosis Failure to thrive Hyperkalemia Steroid induced leukocytosis Reflex sinus tachycardia Recommendations: Obtain echo No signs of CHF on exam. On the contrary patient appears hypovolemic on exam No further cardiac work-up is planned or needed Continue supportive therapy
[2018-09-05] MEDS: HumaLOG SUB-Q SCH ×4 (09:20→21:57)
--- NOTE | 2018-09-05 09:51 | Progress Note ---
Assessment and Plan Assessment and plan: --Acute hypoxic respiratory failure; patient is on high flow oxygen, nebulizers, BiPAP as needed, admitted to ICU Discussed with supervisor porcelain department Dr. Norton Transfer the patient to ICU, intubate as needed Possible PE/DVT. Evaluate for PE, status post chest Empiric anticoagulation with Lovenox, --DOROTHEA (acute kidney injury) Sec to ATN Improved significantly From 90/7.1 to 53/1.4 -- Hyperkalemia Improved to normal -- Hyponatremia Improved to baseline --Acute pulmonary edema: Sec to IV Fluids,Will get ECHO IV Lasix one dose given yesterday with significant improvement --COPD with exacerbation Started on Duonebs and IV solumedroll and IV Levaquin -- Severe malnutrition Dietitian consult -- DVT prophylaxis On Heparin and Gi prophylaxis Critical care time 50 minutes History Interval history: Patient seen and examined Medical records reviewed Patient was noted to be acute respiratory failure requiring high flow oxygen Patient is in acute distress, tachypneic, hypoxic Vital signs noted Hospitalist Physical - Constitutional Vitals: Temp Pulse Resp BP Pulse Ox 98.0 F 116 H 32 H 162/85 69 L 09/05/18 03:34 09/05/18 09:15 09/05/18 09:15 09/05/18 03:34 09/05/18 08:49 General appearance: Present: severe distress, cachectic, disheveled, other (anxious) - EENT Eyes: Present: PERRL, EOM intact - Neck Neck: Present: supple, normal ROM - Respiratory Respiratory effort: normal Respiratory: bilateral: diminished, rhonchi, negative: rales, wheezing - Cardiovascular Rhythm: regular Heart Sounds: Present: S1 & S2 (tachycardia) - Extremities Extremities: no ischemia, No edema - Abdominal General gastrointestinal: soft, non-tender, non-distended, normal bowel sounds - Integumentary Integumentary: Present: clear, warm - Psychiatric Psychiatric: other (anxious and distressed) - Neurologic Neurologic: moves all extremities Results - Labs CBC & Chem 7: 09/04/18 05:20 09/05/18 05:04 Labs: Laboratory Last Values WBC 18.9 K/mm3 (4.5-11.0) H 09/04/18 05:20 RBC 4.64 M/mm3 (3.65-5.03) 09/04/18 05:20 Hgb 10.7 gm/dl (10.1-14.3) 09/04/18 05:20 Hct 33.5 % (30.3-42.9) 09/04/18 05:20 MCV 72 fl (79-97) L 09/04/18 05:20 MCH 23 pg (28-32) L 09/04/18 05:20 MCHC 32 % (30-34) 09/04/18 05:20 RDW 18.7 % (13.2-15.2) H 09/04/18 05:20 Plt Count 260 K/mm3 (140-440) 09/04/18 05:20 Lymph % (Auto) 9.2 % (13.4-35.0) L 09/04/18 05:20 [place] % (Auto) 7.2 % (0.0-7.3) 09/04/18 05:20 Eos % (Auto) 0.0 % (0.0-4.3) 09/04/18 05:20 Baso % (Auto) 1.0 % (0.0-1.8) 09/04/18 05:20 Lymph # 1.7 K/mm3 (1.2-5.4) 09/04/18 05:20 [place] # 1.4 K/mm3 (0.0-0.8) H 09/04/18 05:20 Eos # 0.0 K/mm3 (0.0-0.4) 09/04/18 05:20 Baso # 0.2 K/mm3 (0.0-0.1) H 09/04/18 05:20 Seg Neutrophils % 82.6 % (40.0-70.0) H 09/04/18 05:20 Seg Neutrophils # 15.6 K/mm3 (1.8-7.7) H 09/04/18 05:20 POC ABG pH 7.444 (7.35-7.45) 09/04/18 13:17 POC ABG pO2 55 (80-105) L 09/04/18 13:17 POC ABG HCO3 17.8 (22-26 mml/L) 09/04/18 13:17 POC ABG Total CO2 19 (23-27mmol/L) 09/04/18 13:17 POC ABG O2 Sat 90 09/04/18 13:17 POC ABG Base Excess -6 ((-2) - (+3)mmol/L) 09/04/18 13:17 70 % 09/04/18 13:17 Sodium 136 mmol/L (137-145) L 09/05/18 05:04 Potassium 3.1 mmol/L (3.6-5.0) L D 09/05/18 05:04 Chloride 90.8 mmol/L (98-107) L 09/05/18 05:04 Carbon Dioxide 22 mmol/L (22-30) 09/05/18 05:04 26 mmol/L 09/05/18 05:04 BUN 53 mg/dL (7-17) H 09/05/18 05:04 1.4 mg/dL (0.7-1.2) H 09/05/18 05:04 Estimated GFR 39 ml/min 09/05/18 05:04 38 % 09/05/18 05:04 Glucose 149 mg/dL (65-100) H 09/05/18 05:04 POC Glucose 129 (70-105) H 09/04/18 20:40 5.2 % (4-6) 08/31/18 21:18 290 Mosm/kg 08/31/18 09:47 Lactic Acid 1.00 mmol/L (0.7-2.0) 08/31/18 13:35 Calcium 9.0 mg/dL (8.4-10.2) 09/05/18 05:04 0.50 mg/dL (0.1-1.2) 09/04/18 05:20 AST 54 units/L (5-40) H 09/04/18 05:20 ALT 44 units/L (7-56) 09/04/18 05:20 97 units/L (35-129) 09/04/18 05:20 36.0 umol/L (25-60) 08/31/18 09:47 0.021 ng/mL (0.00-0.029) 08/31/18 09:47 NT-Pro-B Natriuret Pep 1077 pg/mL (0-900) H 08/31/18 09:47 6.1 g/dL (6.3-8.2) L 09/04/18 05:20 3.3 g/dL (3.9-5) L 09/04/18 05:20 1.2 % 09/04/18 05:20 TSH 0.485 mlU/mL (0.270-4.200) 08/31/18 09:47 Free T4 1.52 ng/dL (0.76-1.46) H 08/31/18 09:47 Sophie (Yellow) 08/31/18 10:17 Cloudy (Clear) 08/31/18 10:17 5.0 (5.0-7.0) 08/31/18 10:17 Ur Specific [place] 1.018 (1.003-1.030) 08/31/18 10:17 30 mg/dl mg/dL (Negative) 08/31/18 10:17 Neg mg/dL (Negative) 08/31/18 10:17 Neg mg/dL (Negative) 08/31/18 10:17 Neg (Negative) 08/31/18 10:17 Neg (Negative) 08/31/18 10:17 Neg (Negative) 08/31/18 10:17 < 2.0 mg/dL (<2.0) 08/31/18 10:17 Ur Leukocyte Esterase Neg (Negative) 08/31/18 10:17 1.0 /HPF (0.0-6.0) 08/31/18 10:17 1.0 /HPF (0.0-6.0) 08/31/18 10:17 U Epithel Cells (Auto) 1.0 /HPF (0-13.0) 08/31/18 10:17 325 Mosm/kg 09/01/18 06:12 63 mmol/L 09/01/18 06:12 18.84 mmol/L 09/01/18 06:12 Plasma/Serum Alcohol < 0.01 % (0-0.07) 08/31/18 09:47 Active Medications - Current Medications Current Medications: Generic Name Dose Route Start Last Admin Trade Name Freq PRN Reason Stop Dose Admin Acetaminophen 650 mg 08/31/18 21:00 09/02/18 13:10 Tylenol PO 650 mg Q4H PRN Administration Pain MILD(1-3)/Fever >100.5/COLLAZO Albuterol/Ipratropium 1 ampul 09/05/18 08:00 09/05/18 08:49 Duoneb *Not For Prn Use* IH 1 ampul QIDRT [facility] Administration Enoxaparin Sodium 40 mg 09/05/18 10:00 Lovenox SUB-Q BID [facility] Famotidine 10 mg 09/01/18 22:00 09/04/18 22:04 Pepcid PO 10 mg BID [facility] Administration Piperacillin Sod/Tazobactam Sod 2.25 gm in 50 mls @ 100 mls/hr 09/04/18 18:00 09/05/18 06:00 Zosyn/Ns 2.25 Gm/50ml IV 100 mls/hr Q8HR [facility] Administration Protocol Insulin Human Lispro 0 unit 08/31/18 16:30 09/04/18 22:04 Humalog SUB-Q Not Given ACHS [facility] Protocol Methylprednisolone Sodium Succinate 60 mg 09/05/18 08:00 09/05/18 08:39 Solu-Medrol IV 60 mg Q8HR [facility] Administration Metoprolol Tartrate 25 mg 08/31/18 22:00 09/04/18 22:04 Lopressor PO 25 mg BID [facility] Administration Morphine Sulfate 2 mg 08/31/18 21:00 09/04/18 22:01 Morphine IV 2 mg Q4H PRN Administration Pain, Moderate (4-6) Ondansetron HCl 4 mg 08/31/18 21:00 09/01/18 18:56 Zofran IV 4 mg Q8H PRN Administration Nausea And Vomiting Oxycodone HCl 10 mg 09/02/18 21:24 09/04/18 05:59 Roxicodone PO 10 mg Q4H PRN Administration Pain, Moderate (4-6) Sodium Chloride 10 ml 08/31/18 22:00 09/04/18 22:04 Sodium Chloride Flush Syringe 10 Ml IV 10 ml BID [facility] Administration Sodium Chloride 10 ml 08/31/18 21:00 Sodium Chloride Flush Syringe 10 Ml IV PRN PRN LINE FLUSH Nutrition/Malnutrition Assess - Dietary Evaluation Nutrition/Malnutrition Findings: Nutrition Notes Start: 09/01/18 15:41 Freq: Status: Active Protocol: Document 09/04/18 15:54 RM (Rec: 09/04/18 15:58 RM [id number]) Nutrition Notes Initial or Follow up Reassessment Current Diagnosis Acute Kidney Injury, Hypertension Other Pertinent Diagnosis Dehydration, Uremia, AMS Current Diet Renal Labs/Tests BUN 52 Cr 1.6 Pertinent Medications Reviewed Height 5 ft 4 in Weight 41.2 kg [place] Body Weight (kg) 54.54 BMI 15.5 Subjective/Other Information Pt and pt nurse in room at time of visit. Pt nurse was feeding pt and pt only ate a few bites of her lunch. Percent of energy/protein needs met: 0%/0% Burn Absent Trauma Absent #1 Nutrition Diagnosis Malnutrition Diagnosis Progress(for reassessment Continues documentation) Is patient on ventilator? No Is Patient Ambulatory and/or Out of Bed No REE-([facility]-confined to bed) 1189.284 Kcal/Kg value to use for calculation 40 Approximate Energy Requirements Using 1648 kcal/Kg Calculation Used for Recommendations Kcal/kg Additional Notes Pro needs 1.2-1.5g/k-62g/ day Fluid needs 1ml/kcal Nutrition Intervention Change Diet Order: Continue current diet order Add Supplement/Snack (indicate name/kcal Ensure Enlive 1 daily /protein ) Provides kCal: 350 Provides Protein (gm) 20 Goal #1 PO intake of meals plus ONS to meet at least 75% energy and pro needs Goal #2 Wt maintenance and/or gain Anticipated Discharge Needs: Continue ONS 1-2 times daily for wt maintenance Follow-Up By: 09/07/18 Additional Comments Follow for PO and ONS intakes
[2018-09-05] MEDS ORDERED: LEVAQUIN 500MG/100ML 500 MG/100 ML BAG IV SCH (10:00)
[2018-09-05] MEDS: LOVENOX SUB-Q SCH ×2 (10:17→21:53)
--- NOTE | 2018-09-05 10:22 | Progress Note ---
Subjective - Reason for Consult Consult date: 09/05/18 Reason for consult: Psychiatry Follow-up - Chief Complaint Chief complaint: "I'm being held down" 58-year-old white female who presented to the ER for AMS. Psychiatry was consulted to see the patient for depression. Today the patient was calm, but confused during the assessment. She does not know why she was brought to the hospital. She stated that she reside with family and they may know why she was brought to the hospital. She is adamant that she does not need to be in restraints. She was able to state the current [place] President, but could not recall 3 numbers in 5 mins. She is aware that she is located at [facility] and may have "depression" when asked. She denies SI/HI's. Overall, the patient isn't a good historian. Mental Status Exam - Vital signs Last Vital Signs Temp 98.0 F 09/05/18 03:34 Pulse 116 H 09/05/18 09:15 Resp 32 H 09/05/18 09:15 BP 162/85 09/05/18 03:34 Pulse Ox 69 L 09/05/18 08:49 - Exam Narrative exam: MSE: Appearance: calm Behavior: regular eye contact Speech: regular rate and tone Mood: "okay" Affect: congruent to mood Thought Process: some confusion Thought Content: denies SI/HI's and AVH's Motor Activity: in restraints Cognition: alert Insight: impaired Judgment: impaired Assessment and Plan Impression: Delirium. Today the patient was calm, with some confusion during the assessment. CR 1.4, but trending down. K 3.1.The patient is in restraints. Recommendation/Plan: Gather collateral information to help determine proper treatment. Will follow up with the patient in 24 hours. Recommend Delirium precautions below: 1. Frequently reorient patient and involve him/her in their care (simple explanations of procedures, tests, medications). 2. Lights on and shades open during daytime hours. 3. Write date and goals of care in a visible place. 4. Try to avoid unnecessary interruptions to sleep during nighttime hours. 5. Obtain glasses, hearing aids from home if patient uses these at baseline. 6. Avoid medications that may exacerbate delirium (especially narcotics, benzodiazepines, barbiturates, ambien, lunesta, and medications with excessive anticholinergic properties). The patient has Oxycodone on her MAR. 7. Recommend Haldol 2 mg IM/PO Q6hrs PRN for acute psychosis. 8. Recommend 1:1 sitter for safety. Will staff with Dr Mercy bardales.
[2018-09-05] MEDS: PEPCID PO SCH ×2 (10:23→21:53)
[2018-09-05] MEDS: ROXICODONE PO PRN ×2 (10:23→21:51)
[2018-09-05] MEDS: LOPRESSOR PO SCH ×2 (10:27→21:51)
[2018-09-05] MEDS: SODIUM CHLORIDE FLUSH SYRINGE 10 ML IV SCH ×2 (10:28→21:55)
--- NOTE | 2018-09-05 10:38 | Progress Note ---
Assessment and Plan Impression * dorothea * acute pulmonary edema * acute respiratory failure * Hypoxia Plan: * Acute renal failure improving, Baseline creatinine unknown * Admission creatinine of 7 in the setting of apparent volume depletion * Peak creatinine of 7.0 * Current creatinine 1.4 * sepsis protocol * Discontinue IVF * repeat CXR with pulmonary edema. * aggressive diuresis * Ward in place Subjective Date of service: 09/05/18 Principal diagnosis: DOROTHEA,Encephalopathy Interval history: events noted this am Objective - Exam Narrative Exam: General appearance: well-developed, well-nourished EENT: ATNC, PERRL, mucous membranes moist Neck: no JVD Respiratory: Present: Ronchi Cardiology: regular, S1S2 Gastrointestinal: normal, normoactive bowel sounds Neurologic: no focal deficit, alert and oriented x3, CN 3-12 intact Psychiatric: mood/affect appropriate - Vital Signs Vital signs: Vital Signs - 12hr 09/04/18 09/05/18 09/05/18 23:02 03:19 03:34 Temperature 97.4 F L 98.4 F 98.0 F Pulse Rate 112 H 97 H Pulse Rate [ Bilateral Throughout] Respiratory 20 22 19 Rate Respiratory Rate [Bilateral Throughout] Blood Pressure 149/89 150/107 162/85 O2 Sat by Pulse 93 85 Oximetry 09/05/18 09/05/18 09/05/18 08:49 08:53 09:00 Temperature Pulse Rate 118 H Pulse Rate [ 118 H Bilateral Throughout] Respiratory Rate Respiratory 28 H Rate [Bilateral Throughout] Blood Pressure 157/99 O2 Sat by Pulse 69 L 67 L Oximetry 09/05/18 09/05/18 09/05/18 09:15 10:18 10:20 Temperature Pulse Rate 118 H 116 H Pulse Rate [ 116 H Bilateral Throughout] Respiratory 34 H 24 Rate Respiratory 32 H Rate [Bilateral Throughout] Blood Pressure 148/89 O2 Sat by Pulse 73 L 78 L Oximetry 09/05/18 09/05/18 10:23 10:27 Temperature Pulse Rate 116 H Pulse Rate [ Bilateral Throughout] Respiratory 19 Rate Respiratory Rate [Bilateral Throughout] Blood Pressure 148/89 O2 Sat by Pulse Oximetry - Lab 09/04/18 05:20 09/05/18 05:04 Most recent lab results Calcium 9.0 mg/dL (8.4-10.2) 09/05/18 05:04 63 mmol/L 09/01/18 06:12 Medications & Allergies - Medications Allergies/Adverse Reactions: Allergies NSAIDS (Non-Steroidal Anti-Inflamma Allergy (Verified 08/31/18 09:26) Hives Home Medications: Home Medications Medication Instructions Recorded Confirmed Last Taken Type Metoprolol [Lopressor] 25 mg PO BID 08/31/18 08/31/18 Unknown History Oxycodone HCl [oxyCODONE] 10 mg PO Q4H PRN 08/31/18 08/31/18 Unknown History metroNIDAZOLE [Flagyl] 500 mg PO Q8HR 08/31/18 08/31/18 Unknown History Active Medications: Generic Name Dose Route Start Last Admin Trade Name Freq PRN Reason Stop Dose Admin Acetaminophen 650 mg 08/31/18 21:00 09/02/18 13:10 Tylenol PO 650 mg Q4H PRN Administration Pain MILD(1-3)/Fever >100.5/COLLAZO Albuterol/Ipratropium 1 ampul 09/05/18 08:00 09/05/18 08:49 Duoneb *Not For Prn Use* IH 1 ampul QIDRT DUSTIN Administration Enoxaparin Sodium 40 mg 09/05/18 10:00 09/05/18 10:17 Lovenox SUB-Q 40 mg BID DUSTIN Administration Famotidine 10 mg 09/01/18 22:00 09/05/18 10:23 Pepcid PO 10 mg BID DUSTIN Administration Piperacillin Sod/Tazobactam Sod 2.25 gm in 50 mls @ 100 mls/hr 09/04/18 18:00 09/05/18 06:00 Zosyn/Ns 2.25 Gm/50ml IV 100 mls/hr Q8HR DUSTIN Administration Protocol Insulin Human Lispro 0 unit 08/31/18 16:30 09/05/18 09:20 Humalog SUB-Q 2 unit ACHS DUSTIN Administration Protocol Methylprednisolone Sodium Succinate 60 mg 09/05/18 08:00 09/05/18 08:39 Solu-Medrol IV 60 mg Q8HR DUSTIN Administration Metoprolol Tartrate 25 mg 08/31/18 22:00 09/05/18 10:27 Lopressor PO 25 mg BID DUSTIN Administration Morphine Sulfate 2 mg 08/31/18 21:00 09/04/18 22:01 Morphine IV 2 mg Q4H PRN Administration Pain, Moderate (4-6) Ondansetron HCl 4 mg 08/31/18 21:00 09/01/18 18:56 Zofran IV 4 mg Q8H PRN Administration Nausea And Vomiting Oxycodone HCl 10 mg 09/02/18 21:24 09/05/18 10:23 Roxicodone PO 10 mg Q4H PRN Administration Pain, Moderate (4-6) Sodium Chloride 10 ml 08/31/18 22:00 09/05/18 10:28 Sodium Chloride Flush Syringe 10 Ml IV 10 ml BID DUSTIN Administration Sodium Chloride 10 ml 08/31/18 21:00 Sodium Chloride Flush Syringe 10 Ml IV PRN PRN LINE FLUSH
--- NOTE | 2018-09-05 12:32 | Vascular Lab Report ---
PROCEDURE: VL VENOUS DUPLEX LE BILAT TECHNIQUE: Grayscale, color flow and spectral waveform images were obtained of bilateral lower extre mities. HISTORY: hypoxic respiratory failure COMPARISON: None FINDINGS: Right lower extremity: There is nonocclusive DVT identified focally at the common femoral vein and ri ght saphenofemoral junction. This is nonocclusive. Other veins of the right lower extremity demonstra te appropriate duplex Doppler flow and venous compression. Left lower extremity: There is no deep venous thrombosis seen in the left or right lower extremity. Flow is demonstrated by color flow and spectral waveform imaging. There is appropriate wall compressi on and augmentation. IMPRESSION: Focal nonocclusive DVT right common femoral vein and right saphenofemoral junction. No venous thrombus seen in the left lower extremity. This document is electronically signed by Julia Trujillo MD., September 05 2018 12:31:04 PM ET
--- NOTE | 2018-09-05 15:31 | XRay Report ---
PROCEDURE: XR CHEST 1V AP TECHNIQUE: Chest, portable semiupright HISTORY: sob COMPARISON: 09/04/2018 FINDINGS: There are bilateral infiltrates again seen. There is some worsening in the lower right lung as compar ed to the prior. There is unchanged right apical pleural thickening. I cannot confirm pleural effusion. There is no pneumothorax. There is no cardiomegaly. IMPRESSION: Persistent infiltrate with some worsening on the right as compared to prior. This document is electronically signed by Julia Trujillo MD., September 05 2018 03:29:19 PM ET
[2018-09-05 15:33] LABS: Creatine Kinase MB TNR ng/mL (0.0-4.0)
[2018-09-05 15:58] LABS: Chol/HDL Ratio 5.85 %; HDL Cholesterol 28 mg/dL (40-59); LDL Cholesterol,Direct 96 mg/dL (50-130)
[2018-09-05] MEDS ORDERED: HALDOL IM PRN (15:58)
[2018-09-05] MEDS: LASIX IV SCH (18:43)
[2018-09-05] MEDS: ATIVAN IV PRN (23:44)
[2018-09-06 05:23] LABS: Hematocrit 32.4 % (30.3-42.9); Hemoglobin 10.4 gm/dl (10.1-14.3); Mean Corpuscular HGB Conc 32 % (30-34); Mean Corpuscular Volume 73 fl (79-97); Platelet Count 253 K/mm3 (140-440); Red Blood Count 4.45 M/mm3 (3.65-5.03)
[2018-09-06] MEDS: SOLU-Medrol IV SCH ×3 (05:33→21:53)
[2018-09-06 05:34] LABS: Calcium 8.9 mg/dL (8.4-10.2)
[2018-09-06] MEDS: LASIX IV SCH ×2 (05:34→17:58)
[2018-09-06] MEDS: ZOSYN/NS 2.25 GM/50ML 2.25 GM/50 ML BAG IV SCH ×3 (05:54→21:58)
[2018-09-06 06:45] LABS: Anisocytosis 1+; Basophils % (Manual) 0 % (0.0-1.8); Eosinophils % (Manual) 0 % (0.0-4.3); Hypochromasia 1+; Total Cells Counted 100
[2018-09-06 06:46] LABS: Large Platelets 1+; Ovalocytes 1+; Platelet Estimate Consistent w Auto
[2018-09-06] MEDS: DUONEB *Not for PRN Use IH SCH ×4 (08:31→20:14)
--- NOTE | 2018-09-06 09:15 | Progress Note ---
Assessment and Plan Impression * dorothea * acute pulmonary edema * acute respiratory failure * Hypoxia * hypokalemia * cardiomyopathy--ef--15% Plan: * Acute renal failure improving, Baseline creatinine unknown * Admission creatinine of 7 in the setting of apparent volume depletion * Peak creatinine of 7.0 * replete and k and mag prn * Current creatinine 1.2 * sepsis protocol * Discontinue IVF * repeat CXR with pulmonary edema. * aggressive diuresis * Ward in place Subjective Date of service: 09/06/18 Principal diagnosis: DOROTHEA,Encephalopathy Interval history: events noted this am Objective - Exam Narrative Exam: General appearance: well-developed, well-nourished EENT: ATNC, PERRL, mucous membranes moist Neck: no JVD Respiratory: Present: Ronchi Cardiology: regular, S1S2 Gastrointestinal: normal, normoactive bowel sounds Neurologic: no focal deficit, alert and oriented x3, CN 3-12 intact Psychiatric: mood/affect appropriate - Vital Signs Vital signs: Vital Signs - 12hr 09/05/18 09/05/18 09/06/18 21:51 23:47 00:01 Temperature 97.5 F L Pulse Rate 125 H 125 H Pulse Rate [ Bilateral Throughout] Respiratory 33 H Rate Respiratory Rate [Bilateral Throughout] Blood Pressure 166/93 166/93 O2 Sat by Pulse 97 Oximetry 09/06/18 09/06/18 09/06/18 03:40 04:00 04:55 Temperature 97.1 F L Pulse Rate 108 H 108 H Pulse Rate [ Bilateral Throughout] Respiratory 23 Rate Respiratory Rate [Bilateral Throughout] Blood Pressure 165/98 O2 Sat by Pulse 100 Oximetry 09/06/18 09/06/18 09/06/18 08:00 08:28 08:32 Temperature 98.1 F Pulse Rate Pulse Rate [ 124 H 124 H Bilateral Throughout] Respiratory Rate Respiratory 31 H 28 H Rate [Bilateral Throughout] Blood Pressure O2 Sat by Pulse 100 Oximetry - Lab 09/06/18 04:39 09/06/18 04:39 Most recent lab results Calcium 8.9 mg/dL (8.4-10.2) 09/06/18 04:39 63 mmol/L 09/01/18 06:12 Medications & Allergies - Medications Allergies/Adverse Reactions: Allergies NSAIDS (Non-Steroidal Anti-Inflamma Allergy (Verified 08/31/18 09:26) Hives Home Medications: Home Medications Medication Instructions Recorded Confirmed Last Taken Type Metoprolol [Lopressor] 25 mg PO BID 08/31/18 08/31/18 Unknown History Oxycodone HCl [oxyCODONE] 10 mg PO Q4H PRN 08/31/18 08/31/18 Unknown History metroNIDAZOLE [Flagyl] 500 mg PO Q8HR 08/31/18 08/31/18 Unknown History Active Medications: Generic Name Dose Route Start Last Admin Trade Name Freq PRN Reason Stop Dose Admin Acetaminophen 650 mg 08/31/18 21:00 09/02/18 13:10 Tylenol PO 650 mg Q4H PRN Administration Pain MILD(1-3)/Fever >100.5/COLLAZO Albuterol/Ipratropium 1 ampul 09/05/18 08:00 09/06/18 08:31 Duoneb *Not For Prn Use* IH 1 ampul QIDRT DUSTIN Administration Enoxaparin Sodium 40 mg 09/05/18 10:00 09/05/18 21:53 Lovenox SUB-Q 40 mg BID DUSTIN Administration Famotidine 10 mg 09/01/18 22:00 09/05/18 21:53 Pepcid PO 10 mg BID DUSTIN Administration Furosemide 40 mg 09/05/18 18:00 09/06/18 05:34 Lasix IV 40 mg 0600,1800 DUSTIN Administration Piperacillin Sod/Tazobactam Sod 2.25 gm in 50 mls @ 100 mls/hr 09/04/18 18:00 09/06/18 05:54 Zosyn/Ns 2.25 Gm/50ml IV 100 mls/hr Q8HR DUSTIN Administration Protocol Insulin Human Lispro 0 unit 08/31/18 16:30 09/05/18 21:57 Humalog SUB-Q Not Given ACHS [facility] Protocol Lorazepam 1 mg 09/05/18 22:11 09/05/18 23:44 Ativan IV 1 mg Q4H PRN Administration Anxiety Methylprednisolone Sodium Succinate 60 mg 09/05/18 08:00 09/06/18 05:33 Solu-Medrol IV 60 mg Q8HR DUSTIN Administration Metoprolol Tartrate 25 mg 08/31/18 22:00 09/05/18 21:51 Lopressor PO 25 mg BID DUSTIN Administration Morphine Sulfate 2 mg 08/31/18 21:00 09/04/18 22:01 Morphine IV 2 mg Q4H PRN Administration Pain, Moderate (4-6) Ondansetron HCl 4 mg 08/31/18 21:00 09/01/18 18:56 Zofran IV 4 mg Q8H PRN Administration Nausea And Vomiting Oxycodone HCl 10 mg 09/02/18 21:24 09/05/18 21:51 Roxicodone PO 10 mg Q4H PRN Administration Pain, Moderate (4-6) Potassium Chloride 40 meq 09/06/18 10:00 K-Dur PO QDAY DUSTIN Sodium Chloride 10 ml 08/31/18 22:00 09/05/18 21:55 Sodium Chloride Flush Syringe 10 Ml IV 10 ml BID DUSTIN Administration Sodium Chloride 10 ml 08/31/18 21:00 Sodium Chloride Flush Syringe 10 Ml IV PRN PRN LINE FLUSH
--- NOTE | 2018-09-06 09:29 | Progress Note ---
Assessment and Plan -Acute hypoxemic respiratory failure -HAP/Aspiration pneumonia -Severe protein calorie malnutrition -DOROTHEA -s/p Colostomy -Acute metabolic -toxic encephalopathy -Severe protein calorie malnutrition -Tobacco use disorder -Hypokalemia -Serial CXR and ABG -Critical care bundles addressed -Supplemental oxygen to keep O2 sats 90-92% -High flow oxygen, NIPPV support -Bronchodilators -Accuchecks with glycemic control. Target blood glucose <180mg/dL -Hypoglycemia protocol -Aspiration precautions, HOB>40 -NPO for next 24 hours, while monitoring hemodynamics and respiratory status -Agitation/anxiety management -Prevention of delirium, maintenance of sleep-wake cycle -Antibiotic therapy for HAP, recent discharge from [facility] -Avoid nephrotoxic agents, adjust all antibiotics and medications for CrCL and GFR -Follow up echo, lower extremity venous dopplers and cardiac biomarkers -Get swallow objective study of swallow function -Limit narcotic analgesia -Nutrition consult -Nicotine withdrawal precautions -Smoking cessation counselling -Get medical records from [facility] CONDITION: CRITICAL PROGNOSIS: GUARDED CODE STATUS: FULL CODE Discussed with RT/RN/ Dr. Baum The high probability of a clinically significant, sudden or life-threatening deterioration of the [respiratory, cardiovascular, renal] system(s) required my full and direct attention, intervention and personal management. The aggregate critical care time was [35 ] minutes without overlap. Time includes spent on; [x] Data Review and interpretation [x] Patient assessment and monitoring of vital signs [x] Documentation [x] Medication orders and management Subjective Date of service: 09/06/18 Principal diagnosis: DOROTHEA,Encephalopathy Interval history: Patient is seen today for: Acute DVT (Right lower ext); Acute hypoxemic respiratory failure; Jacob Baum Respirations; HAP/Aspiration pneumonia; DOROTHEA; Acute metabolic -toxic encephalopathy; Severe protein calorie malnutrition Seen and examined at bedside; 24hour events reviewed; vitals, labs, medications, chart and imaging reviewed; nursing and respiratory care staff consulted; no ad verse overnight events reported to me; resting peacefully in bed; feels a little better; remains on supplemental oxygen; no fevers, no vomiting, more awake and alert Objective Vital Signs - 12hr 09/05/18 09/05/18 09/06/18 21:51 23:47 00:01 Temperature 97.5 F L Pulse Rate 125 H 125 H Pulse Rate [ Bilateral Throughout] Respiratory 33 H Rate Respiratory Rate [Bilateral Throughout] Blood Pressure 166/93 166/93 O2 Sat by Pulse 97 Oximetry 09/06/18 09/06/18 09/06/18 03:40 04:00 04:55 Temperature 97.1 F L Pulse Rate 108 H 108 H Pulse Rate [ Bilateral Throughout] Respiratory 23 Rate Respiratory Rate [Bilateral Throughout] Blood Pressure 165/98 O2 Sat by Pulse 100 Oximetry 09/06/18 09/06/18 09/06/18 08:00 08:28 08:32 Temperature 98.1 F Pulse Rate Pulse Rate [ 124 H 124 H Bilateral Throughout] Respiratory Rate Respiratory 31 H 28 H Rate [Bilateral Throughout] Blood Pressure O2 Sat by Pulse 100 Oximetry Constitutional: alert, appears uncomfortable, other (moderate respiratory distress, cachexia) Eyes: non-icteric ENT: oropharynx dry Neck: supple, no lymphadenopathy, no JVD Effort: very labored Ascultation: Bilateral: diminished breath sounds, rhonchi Cardiovascular: regular rate and rhythm, other (S1,S2, nor urmurs, gallops or rubs) Gastrointestinal: normoactive bowel sounds, soft, non-tender, non-distended, other (colostomy bag) Integumentary: other (neurofibromatosis) Extremities: no cyanosis, no edema, pulses normal, no ischemia or petechiae Neurologic: pupils equal and round, CN II-XII normal, motor strength normal and Psychiatric: mood appropriate, anxious CBC and BMP: 09/07/18 04:57 09/08/18 09:35 ABG, PT/INR, D-dimer: ABG POC ABG pH 7.522 (7.35-7.45) H 09/05/18 10:54 POC ABG HCO3 21.9 (22-26 mml/L) 09/05/18 10:54 POC ABG Total CO2 23 (23-27mmol/L) 09/05/18 10:54 POC ABG O2 Sat 89 09/05/18 10:54 Abnormal lab findings: Abnormal Labs 08/31/18 08/31/18 08/31/18 09:47 09:47 09:47 WBC 15.2 H Hgb Hct MCV 73 L MCH 23 L RDW 19.3 H Lymph % (Auto) 6.2 L [place] % (Auto) Lymph # 0.9 L [place] # 1.0 H Baso # Seg Neutrophils % 87.1 H Seg Neuts % (Manual) Lymphocytes % (Manual) Seg Neutrophils # 13.2 H Seg Neutrophils # Man POC ABG pH POC ABG pO2 Sodium 121 L Potassium 6.5 H* Chloride 76.3 L Carbon Dioxide 18 L BUN 90 H Creatinine 7.1 H Glucose POC Glucose Calcium AST 63 H Total Creatine Kinase CK-MB (CK-2) CK-MB (CK-2) Rel Index Troponin T NT-Pro-B Natriuret Pep Total Protein Albumin 3.6 L Triglycerides HDL Cholesterol Free T4 1.52 H 08/31/18 08/31/18 08/31/18 09:47 14:52 21:18 WBC Hgb Hct MCV MCH RDW Lymph % (Auto) [place] % (Auto) Lymph # [place] # Baso # Seg Neutrophils % Seg Neuts % (Manual) Lymphocytes % (Manual) Seg Neutrophils # Seg Neutrophils # Man POC ABG pH POC ABG pO2 Sodium 125 L 129 L Potassium 5.5 H Chloride 85.4 L 84.5 L Carbon Dioxide 18 L BUN 84 H 79 H Creatinine 6.0 H 4.9 H Glucose 108 H POC Glucose Calcium AST Total Creatine Kinase CK-MB (CK-2) CK-MB (CK-2) Rel Index Troponin T NT-Pro-B Natriuret Pep 1077 H Total Protein Albumin Triglycerides HDL Cholesterol Free T4 08/31/18 09/01/18 09/01/18 22:27 08:23 10:10 WBC 4.1 L Hgb 9.6 L Hct 29.1 L MCV 72 L MCH 24 L RDW 19.0 H Lymph % (Auto) 11.6 L [place] % (Auto) 11.2 H Lymph # 0.5 L [place] # Baso # Seg Neutrophils % 76.6 H Seg Neuts % (Manual) Lymphocytes % (Manual) Seg Neutrophils # Seg Neutrophils # Man POC ABG pH POC ABG pO2 Sodium Potassium Chloride Carbon Dioxide BUN Creatinine Glucose POC Glucose 132 H 113 H Calcium AST Total Creatine Kinase CK-MB (CK-2) CK-MB (CK-2) Rel Index Troponin T NT-Pro-B Natriuret Pep Total Protein Albumin Triglycerides HDL Cholesterol Free T4 09/01/18 09/01/18 09/01/18 10:20 11:28 20:43 WBC Hgb Hct MCV MCH RDW Lymph % (Auto) [place] % (Auto) Lymph # [place] # Baso # Seg Neutrophils % Seg Neuts % (Manual) Lymphocytes % (Manual) Seg Neutrophils # Seg Neutrophils # Man POC ABG pH POC ABG pO2 Sodium 136 L D Potassium Chloride 91.4 L Carbon Dioxide BUN 71 H Creatinine 3.3 H Glucose 134 H POC Glucose 147 H 134 H Calcium AST 46 H Total Creatine Kinase CK-MB (CK-2) CK-MB (CK-2) Rel Index Troponin T NT-Pro-B Natriuret Pep Total Protein 6.0 L D Albumin 3.1 L Triglycerides HDL Cholesterol Free T4 09/02/18 09/02/18 09/02/18 05:40 08:21 13:22 WBC Hgb Hct MCV MCH RDW Lymph % (Auto) [place] % (Auto) Lymph # [place] # Baso # Seg Neutrophils % Seg Neuts % (Manual) Lymphocytes % (Manual) Seg Neutrophils # Seg Neutrophils # Man POC ABG pH POC ABG pO2 Sodium 134 L Potassium Chloride 91.4 L Carbon Dioxide BUN 61 H Creatinine 2.3 H Glucose 119 H POC Glucose 130 H 123 H Calcium AST Total Creatine Kinase CK-MB (CK-2) CK-MB (CK-2) Rel Index Troponin T NT-Pro-B Natriuret Pep Total Protein Albumin Triglycerides HDL Cholesterol Free T4 09/02/18 09/03/18 09/03/18 20:29 05:03 08:02 WBC Hgb Hct MCV MCH RDW Lymph % (Auto) [place] % (Auto) Lymph # [place] # Baso # Seg Neutrophils % Seg Neuts % (Manual) Lymphocytes % (Manual) Seg Neutrophils # Seg Neutrophils # Man POC ABG pH POC ABG pO2 Sodium 128 L Potassium Chloride 91.3 L Carbon Dioxide BUN 48 H Creatinine 1.7 H Glucose 110 H POC Glucose 112 H 115 H Calcium 8.3 L AST Total Creatine Kinase CK-MB (CK-2) CK-MB (CK-2) Rel Index Troponin T NT-Pro-B Natriuret Pep Total Protein Albumin Triglycerides HDL Cholesterol Free T4 09/03/18 09/03/18 09/03/18 12:15 17:48 20:44 WBC Hgb Hct MCV MCH RDW Lymph % (Auto) [place] % (Auto) Lymph # [place] # Baso # Seg Neutrophils % Seg Neuts % (Manual) Lymphocytes % (Manual) Seg Neutrophils # Seg Neutrophils # Man POC ABG pH POC ABG pO2 Sodium Potassium Chloride Carbon Dioxide BUN Creatinine Glucose POC Glucose 321 H 185 H 118 H Calcium AST Total Creatine Kinase CK-MB (CK-2) CK-MB (CK-2) Rel Index Troponin T NT-Pro-B Natriuret Pep Total Protein Albumin Triglycerides HDL Cholesterol Free T4 09/04/18 09/04/18 09/04/18 05:20 05:20 06:46 WBC 18.9 H Hgb Hct MCV 72 L MCH 23 L RDW 18.7 H Lymph % (Auto) 9.2 L [place] % (Auto) Lymph # [place] # 1.4 H Baso # 0.2 H Seg Neutrophils % 82.6 H Seg Neuts % (Manual) Lymphocytes % (Manual) Seg Neutrophils # 15.6 H Seg Neutrophils # Man POC ABG pH POC ABG pO2 Sodium 132 L 132 L Potassium Chloride 92.2 L 92.4 L Carbon Dioxide 19 L 19 L BUN 51 H 52 H Creatinine 1.6 H 1.6 H Glucose POC Glucose Calcium AST 54 H Total Creatine Kinase CK-MB (CK-2) CK-MB (CK-2) Rel Index Troponin T NT-Pro-B Natriuret Pep Total Protein 6.1 L Albumin 3.3 L Triglycerides HDL Cholesterol Free T4 09/04/18 09/04/18 09/04/18 12:48 13:17 17:32 WBC Hgb Hct MCV MCH RDW Lymph % (Auto) [place] % (Auto) Lymph # [place] # Baso # Seg Neutrophils % Seg Neuts % (Manual) Lymphocytes % (Manual) Seg Neutrophils # Seg Neutrophils # Man POC ABG pH POC ABG pO2 55 L Sodium Potassium Chloride Carbon Dioxide BUN Creatinine Glucose POC Glucose 156 H 139 H Calcium AST Total Creatine Kinase CK-MB (CK-2) CK-MB (CK-2) Rel Index Troponin T NT-Pro-B Natriuret Pep Total Protein Albumin Triglycerides HDL Cholesterol Free T4 09/04/18 09/05/18 09/05/18 20:40 05:04 08:53 WBC Hgb Hct MCV MCH RDW Lymph % (Auto) [place] % (Auto) Lymph # [place] # Baso # Seg Neutrophils % Seg Neuts % (Manual) Lymphocytes % (Manual) Seg Neutrophils # Seg Neutrophils # Man POC ABG pH POC ABG pO2 Sodium 136 L Potassium 3.1 L D Chloride 90.8 L Carbon Dioxide BUN 53 H Creatinine 1.4 H Glucose 149 H POC Glucose 129 H 174 H Calcium AST Total Creatine Kinase CK-MB (CK-2) CK-MB (CK-2) Rel Index Troponin T NT-Pro-B Natriuret Pep Total Protein Albumin Triglycerides HDL Cholesterol Free T4 09/05/18 09/05/18 09/05/18 09:28 10:54 13:44 WBC Hgb Hct MCV MCH RDW Lymph % (Auto) [place] % (Auto) Lymph # [place] # Baso # Seg Neutrophils % Seg Neuts % (Manual) Lymphocytes % (Manual) Seg Neutrophils # Seg Neutrophils # Man POC ABG pH 7.536 H 7.522 H POC ABG pO2 Sodium Potassium Chloride Carbon Dioxide BUN Creatinine Glucose POC Glucose Calcium AST Total Creatine Kinase 27 L CK-MB (CK-2) 6.0 H CK-MB (CK-2) Rel Index 22.2 H Troponin T NT-Pro-B Natriuret Pep > 71408 H Total Protein Albumin Triglycerides HDL Cholesterol Free T4 09/05/18 09/05/18 09/05/18 13:44 18:32 21:32 WBC Hgb Hct MCV MCH RDW Lymph % (Auto) [place] % (Auto) Lymph # [place] # Baso # Seg Neutrophils % Seg Neuts % (Manual) Lymphocytes % (Manual) Seg Neutrophils # Seg Neutrophils # Man POC ABG pH POC ABG pO2 Sodium Potassium Chloride Carbon Dioxide BUN Creatinine Glucose POC Glucose 173 H 253 H Calcium AST Total Creatine Kinase CK-MB (CK-2) CK-MB (CK-2) Rel Index Troponin T 0.194 H* NT-Pro-B Natriuret Pep Total Protein Albumin Triglycerides 228 H HDL Cholesterol 28 L Free T4 09/05/18 09/06/18 09/06/18 21:33 04:39 04:39 WBC 14.4 H Hgb Hct MCV 73 L MCH 23 L RDW 19.0 H Lymph % (Auto) [place] % (Auto) Lymph # [place] # Baso # Seg Neutrophils % Seg Neuts % (Manual) 90.0 H Lymphocytes % (Manual) 8.0 L Seg Neutrophils # Seg Neutrophils # Man 13.0 H POC ABG pH POC ABG pO2 Sodium Potassium 3.2 L Chloride 96.1 L Carbon Dioxide BUN 52 H Creatinine Glucose 113 H POC Glucose Calcium AST Total Creatine Kinase CK-MB (CK-2) CK-MB (CK-2) Rel Index Troponin T 0.162 H* NT-Pro-B Natriuret Pep Total Protein Albumin Triglycerides HDL Cholesterol Free T4 09/06/18 07:24 WBC Hgb Hct MCV MCH RDW Lymph % (Auto) [place] % (Auto) Lymph # [place] # Baso # Seg Neutrophils % Seg Neuts % (Manual) Lymphocytes % (Manual) Seg Neutrophils # Seg Neutrophils # Man POC ABG pH POC ABG pO2 Sodium Potassium Chloride Carbon Dioxide BUN Creatinine Glucose POC Glucose 154 H Calcium AST Total Creatine Kinase CK-MB (CK-2) CK-MB (CK-2) Rel Index Troponin T NT-Pro-B Natriuret Pep Total Protein Albumin Triglycerides HDL Cholesterol Free T4
[2018-09-06] MEDS ORDERED: K-DUR PO ONE (10:00)
[2018-09-06] MEDS ORDERED: MAGNESIUM SULFATE 2GM/50ML 2 GM/50 ML BAG IV ONE (10:00)
--- NOTE | 2018-09-06 10:16 | Progress Note ---
Subjective - Reason for Consult Consult date: 09/06/18 Reason for consult: Psychiatry Follow-up - Chief Complaint Chief complaint: "I'm tired" 58-year-old white female who presented to the ER for AMS. Psychiatry was consulted to see the patient for depression. Per the notes, the patient was transferred to the ICU. She asked me the provider to return tomorrow to talk with her. No gestures of SI/HI's. Mental Status Exam - Vital signs Last Vital Signs Temp 98.1 F 09/06/18 08:00 Pulse 124 H 09/06/18 08:32 Resp 28 H 09/06/18 08:32 BP 165/98 09/06/18 04:55 Pulse Ox 100 09/06/18 08:28 - Exam Narrative exam: Unable to complete the MSE because of the patient's condition. Assessment and Plan Impression: Today the patient asked me to return tomorrow. The patient is on high flow O2. The patient isn't in restraints. Recommendation/Plan: Psy sign off, reconsult when the patient is more stable. Will staff with Dr Mercy Esparza.
--- NOTE | 2018-09-06 10:22 | Progress Note ---
Assessment and Plan Altered mental status Respiratory failure CXR showing bilateral pulmonary infiltrates ? mixture of cardiac and non-cardiac pulmonary edema Cardiomyopathy Echo showing LVEF 15-20% with regional wall motion abnormalities consistent with either takotsubo cardiomyopathy or prior LAD transmural infarction. The latter is favored due to the presence of RV apical free wall akinesis too. Also ECG is pertinent for anteroseptal Q waves. Severe eccentric mitral regurgitation, most likely functional and ischemic in origin Non-occlusive DVT noted in the right femoral vein Acute renal failure - resolved Metabolic acidosis - resolved Failure to thrive Hyperkalemia - resolved Steroid induced leukocytosis Reflex sinus tachycardia Recommendations: Agree with gentle diuresis Replace potassium Continue low dose metoprolol Add afterload reduction with hydralazine and isosorbide mononitrate Start low dose digoxin every other day Further evaluation with coronary angio is warranted pending resolution of her acute medical illness and improvement in mentation Subjective Date of service: 09/06/18 Principal diagnosis: DOROTHEA,Encephalopathy Interval history: Patient transferred to ICU overnight for respiratory failure and increased work of breathing Objective Vital Signs Temp Pulse Pulse Pulse Resp Resp BP 09/06/18 08:32 124 H 28 H 09/06/18 08:28 09/06/18 08:00 98.1 F 124 H 31 H 09/06/18 04:55 108 H 23 165/98 09/06/18 04:00 108 H 09/06/18 03:40 97.1 F L 09/06/18 00:01 125 H 33 H 166/93 09/05/18 23:47 97.5 F L 09/05/18 21:51 125 H 166/93 09/05/18 20:04 117 H 35 H 09/05/18 20:00 97.9 F 118 H 125 H 33 H 09/05/18 19:58 118 H 29 H 154/78 09/05/18 17:10 118 H 30 H 09/05/18 16:50 120 H 32 H 09/05/18 16:30 97.6 F 09/05/18 14:35 124 H 32 H 09/05/18 14:25 122 H 32 H 09/05/18 14:20 122 H 30 H 148/80 09/05/18 12:00 97.5 F L 110 H 09/05/18 10:55 09/05/18 10:27 116 H 148/89 09/05/18 10:23 19 06/29/19 10:20 116 H 24 148/89 09/05/18 10:18 118 H 34 H Pulse Ox 09/06/18 08:32 09/06/18 08:28 100 09/06/18 08:00 09/06/18 04:55 100 09/06/18 04:00 09/06/18 03:40 09/06/18 00:01 97 09/05/18 23:47 09/05/18 21:51 09/05/18 20:04 09/05/18 20:00 97 09/05/18 19:58 96 09/05/18 17:10 09/05/18 16:50 09/05/18 16:30 09/05/18 14:35 09/05/18 14:25 09/05/18 14:20 92 09/05/18 12:00 09/05/18 10:55 89 09/05/18 10:27 09/05/18 10:23 09/05/18 10:20 78 L 09/05/18 10:18 73 L - Physical Examination HEENT: Positive: Mucus Membranes Dry Neck: Positive: neck supple. Negative: JVD/HJR Cardiac: Positive: Tachycardia Lungs: Positive: Decreased Breath Sounds, Rales Abdomen: Positive: Soft Extremities: Absent: edema - Labs and Meds Cardiac Enzymes 09/05/18 09/05/18 Range/Units 13:44 13:44 CK-MB (CK-2) 6.0 H TNR (0.0-4.0) ng/mL Lipids 09/05/18 Range/Units 13:44 Triglycerides 228 H (2-149) mg/dL Cholesterol 164 (50-199) mg/dL HDL Cholesterol 28 L (40-59) mg/dL Cholesterol/HDL Ratio 5.85 % CBC 09/06/18 Range/Units 04:39 WBC 14.4 H (4.5-11.0) K/mm3 RBC 4.45 (3.65-5.03) M/mm3 Hgb 10.4 (10.1-14.3) gm/dl Hct 32.4 (30.3-42.9) % Plt Count 253 (140-440) K/mm3 Comprehensive Metabolic Panel 09/06/18 Range/Units 04:39 Sodium 140 (137-145) mmol/L Potassium 3.2 L (3.6-5.0) mmol/L Chloride 96.1 L (98-107) mmol/L Carbon Dioxide 24 (22-30) mmol/L BUN 52 H (7-17) mg/dL Creatinine 1.2 (0.7-1.2) mg/dL Glucose 113 H (65-100) mg/dL Calcium 8.9 (8.4-10.2) mg/dL
--- NOTE | 2018-09-06 10:24 | Progress Note ---
Assessment and Plan Assessment and plan: --Acute hypoxic respiratory failure; Patient feels slightly patient is on high flow oxygen, nebulizers, BiPAP as needed, Pulm following , f/uCTA chest to r/o PE --Right lower extremity DVT: anticoagulation with Lovenox, r/o PE --Non-ST elevation MN /nonspecific elevation of troponin new-onset cardiomyopathy with ejection fraction of 10-15% Continue current management, ischemia workup when patient is more stable Cardiology following --New-onset systolic CHF; 10 -15% anti-failure medications, diuretics beta blockers and merline inhibitors And Protopic monitoring, daily weights, low sodium, fluid restriction -- Hypokalemia Replacement with potassium chloride monitor levels --DOROTHEA (acute kidney injury)POA Sec to ATN : Resolved Gentle hydration -- Hyponatremia Improved to baseline --Acute pulmonary edema: POA Sec to IV Fluids,Will get ECHO IV Lasix one dose given yesterday with significant improvement --COPD with exacerbation Started on Duonebs and IV solumedroll and IV Levaquin -- Severe malnutrition Dietitian consult -- DVT prophylaxis On Heparin and Gi prophylaxis Plan of care is reviewed with the patient and her nurse I also discussed with the veterinary toxicologist Critical care time 35 minutes History Interval history: Patient seen and examined this morning medical records reviewed Patient is on BiPAP, slightly better Complaints of tiredness, patient is in mild distress Vital signs noted Hospitalist Physical - Constitutional Vitals: Temp Pulse Resp BP Pulse Ox 98.1 F 124 H 28 H 165/98 100 09/06/18 08:00 09/06/18 08:32 09/06/18 08:32 09/06/18 04:55 09/06/18 08:28 General appearance: Present: mild distress, cachectic, disheveled, other (anxious) - EENT Eyes: Present: PERRL, EOM intact - Neck Neck: Present: supple, normal ROM - Respiratory Respiratory effort: labored Respiratory: bilateral: diminished, rales, wheezing, negative: rhonchi - Cardiovascular Rhythm: regular Heart Sounds: Present: S1 & S2 - Extremities Extremities: no ischemia, pulses intact, pulses symmetrical - Abdominal General gastrointestinal: soft, non-tender, non-distended, normal bowel sounds - Integumentary Integumentary: Present: clear, warm - Psychiatric Psychiatric: appropriate mood/affect, cooperative - Neurologic Neurologic: CNII-XII intact, moves all extremities Results - Labs CBC & Chem 7: 09/06/18 04:39 09/06/18 04:39 Labs: Laboratory Last Values WBC 14.4 K/mm3 (4.5-11.0) H 09/06/18 04:39 RBC 4.45 M/mm3 (3.65-5.03) 09/06/18 04:39 Hgb 10.4 gm/dl (10.1-14.3) 09/06/18 04:39 Hct 32.4 % (30.3-42.9) 09/06/18 04:39 MCV 73 fl (79-97) L 09/06/18 04:39 MCH 23 pg (28-32) L 09/06/18 04:39 MCHC 32 % (30-34) 09/06/18 04:39 RDW 19.0 % (13.2-15.2) H 09/06/18 04:39 Plt Count 253 K/mm3 (140-440) 09/06/18 04:39 Lymph % (Auto) 9.2 % (13.4-35.0) L 09/04/18 05:20 [place] % (Auto) 7.2 % (0.0-7.3) 09/04/18 05:20 Eos % (Auto) 0.0 % (0.0-4.3) 09/04/18 05:20 Baso % (Auto) 1.0 % (0.0-1.8) 09/04/18 05:20 Lymph # 1.7 K/mm3 (1.2-5.4) 09/04/18 05:20 [place] # 1.4 K/mm3 (0.0-0.8) H 09/04/18 05:20 Eos # 0.0 K/mm3 (0.0-0.4) 09/04/18 05:20 Baso # 0.2 K/mm3 (0.0-0.1) H 09/04/18 05:20 Add Manual Diff Complete 09/06/18 04:39 Total Counted 100 09/06/18 04:39 Seg Neutrophils % Test Cell Technician 09/06/18 04:39 Seg Neuts % (Manual) 90.0 % (40.0-70.0) H 09/06/18 04:39 0 % 09/06/18 04:39 8.0 % (13.4-35.0) L 09/06/18 04:39 Reactive Lymphs % (Man) 0 % 09/06/18 04:39 2.0 % (0.0-7.3) 09/06/18 04:39 0 % (0.0-4.3) 09/06/18 04:39 0 % (0.0-1.8) 09/06/18 04:39 0 % 09/06/18 04:39 0 % 09/06/18 04:39 0 % 09/06/18 04:39 0 % 09/06/18 04:39 Nucleated RBC % Not Reportable 09/06/18 04:39 Seg Neutrophils # 15.6 K/mm3 (1.8-7.7) H 09/04/18 05:20 Seg Neutrophils # Man 13.0 K/mm3 (1.8-7.7) H 09/06/18 04:39 Band Neutrophils # 0.0 K/mm3 09/06/18 04:39 1.2 K/mm3 (1.2-5.4) 09/06/18 04:39 Abs React Lymphs (Man) 0.0 K/mm3 09/06/18 04:39 0.3 K/mm3 (0.0-0.8) 09/06/18 04:39 0.0 K/mm3 (0.0-0.4) 09/06/18 04:39 0.0 K/mm3 (0.0-0.1) 09/06/18 04:39 0.0 K/mm3 09/06/18 04:39 0.0 K/mm3 09/06/18 04:39 0.0 K/mm3 09/06/18 04:39 Blast Cells # 0.0 K/mm3 09/06/18 04:39 WBC Morphology Not Reportable 09/06/18 04:39 Hypersegmented Neuts Not Reportable 09/06/18 04:39 Hyposegmented Neuts Not Reportable 09/06/18 04:39 Hypogranular Neuts Not Reportable 09/06/18 04:39 Not Reportable 09/06/18 04:39 Not Reportable 09/06/18 04:39 Not Reportable 09/06/18 04:39 Not Reportable 09/06/18 04:39 Not Reportable 09/06/18 04:39 Not Reportable 09/06/18 04:39 Consistent w auto 09/06/18 04:39 Not Reportable 09/06/18 04:39 Plt Clumps, EDTA Not Reportable 09/06/18 04:39 1+ 09/06/18 04:39 Not Reportable 09/06/18 04:39 Not Reportable 09/06/18 04:39 Plt Morphology Comment Not Reportable 09/06/18 04:39 RBC Morphology Not Reportable 09/06/18 04:39 Dimorphic RBCs Not Reportable 09/06/18 04:39 Not Reportable 09/06/18 04:39 1+ 09/06/18 04:39 Not Reportable 09/06/18 04:39 1+ 09/06/18 04:39 Not Reportable 09/06/18 04:39 Not Reportable 09/06/18 04:39 Not Reportable 09/06/18 04:39 Not Reportable 09/06/18 04:39 Not Reportable 09/06/18 04:39 Not Reportable 09/06/18 04:39 Not Reportable 09/06/18 04:39 1+ 09/06/18 04:39 Not Reportable 09/06/18 04:39 Not Reportable 09/06/18 04:39 Not Reportable 09/06/18 04:39 Not Reportable 09/06/18 04:39 Not Reportable 09/06/18 04:39 Not Reportable 09/06/18 04:39 Not Reportable 09/06/18 04:39 Acanthocytes (Spur) Not Reportable 09/06/18 04:39 Rouleaux Not Reportable 09/06/18 04:39 Not Reportable 09/06/18 04:39 Not Reportable 09/06/18 04:39 Not Reportable 09/06/18 04:39 Not Reportable 09/06/18 04:39 Hem Pathologist Commnt No 09/06/18 04:39 POC ABG pH 7.522 (7.35-7.45) H 09/05/18 10:54 POC ABG pO2 55 (80-105) L 09/04/18 13:17 POC ABG HCO3 21.9 (22-26 mml/L) 09/05/18 10:54 POC ABG Total CO2 23 (23-27mmol/L) 09/05/18 10:54 POC ABG O2 Sat 89 09/05/18 10:54 POC ABG Base Excess -1 ((-2) - (+3)mmol/L) 09/05/18 10:54 100 % 09/05/18 10:54 Sodium 140 mmol/L (137-145) 09/06/18 04:39 Potassium 3.2 mmol/L (3.6-5.0) L 09/06/18 04:39 Chloride 96.1 mmol/L (98-107) L 09/06/18 04:39 Carbon Dioxide 24 mmol/L (22-30) 09/06/18 04:39 23 mmol/L 09/06/18 04:39 BUN 52 mg/dL (7-17) H 09/06/18 04:39 1.2 mg/dL (0.7-1.2) 09/06/18 04:39 Estimated GFR 46 ml/min 09/06/18 04:39 43 % 09/06/18 04:39 Glucose 113 mg/dL (65-100) H 09/06/18 04:39 POC Glucose 154 (70-105) H 09/06/18 07:24 5.2 % (4-6) 08/31/18 21:18 290 Mosm/kg 08/31/18 09:47 Lactic Acid 1.00 mmol/L (0.7-2.0) 08/31/18 13:35 Calcium 8.9 mg/dL (8.4-10.2) 09/06/18 04:39 0.50 mg/dL (0.1-1.2) 09/04/18 05:20 AST 54 units/L (5-40) H 09/04/18 05:20 ALT 44 units/L (7-56) 09/04/18 05:20 97 units/L (35-129) 09/04/18 05:20 36.0 umol/L (25-60) 08/31/18 09:47 27 units/L (30-135) L 09/05/18 13:44 TNR 09/05/18 13:44 CK-MB (CK-2) 6.0 ng/mL (0.0-4.0) H 09/05/18 13:44 CK-MB (CK-2) TNR 09/05/18 13:44 CK-MB (CK-2) Rel Index 22.2 (0-4) H 09/05/18 13:44 CK-MB (CK-2) Rel Index TNR 09/05/18 13:44 0.162 ng/mL (0.00-0.029) H* 09/05/18 21:33 NT-Pro-B Natriuret Pep > 42749 pg/mL (0-900) H 09/05/18 13:44 6.1 g/dL (6.3-8.2) L 09/04/18 05:20 3.3 g/dL (3.9-5) L 09/04/18 05:20 1.2 % 09/04/18 05:20 Triglycerides 228 mg/dL (2-149) H 09/05/18 13:44 Cholesterol 164 mg/dL (50-199) 09/05/18 13:44 96 mg/dL (50-130) 09/05/18 13:44 28 mg/dL (40-59) L 09/05/18 13:44 5.85 % 09/05/18 13:44 TSH 0.485 mlU/mL (0.270-4.200) 08/31/18 09:47 Free T4 1.52 ng/dL (0.76-1.46) H 08/31/18 09:47 Sophie (Yellow) 08/31/18 10:17 Cloudy (Clear) 08/31/18 10:17 5.0 (5.0-7.0) 08/31/18 10:17 Ur Specific [place] 1.018 (1.003-1.030) 08/31/18 10:17 30 mg/dl mg/dL (Negative) 08/31/18 10:17 Neg mg/dL (Negative) 08/31/18 10:17 Neg mg/dL (Negative) 08/31/18 10:17 Neg (Negative) 08/31/18 10:17 Neg (Negative) 08/31/18 10:17 Neg (Negative) 08/31/18 10:17 < 2.0 mg/dL (<2.0) 08/31/18 10:17 Ur Leukocyte Esterase Neg (Negative) 08/31/18 10:17 1.0 /HPF (0.0-6.0) 08/31/18 10:17 1.0 /HPF (0.0-6.0) 08/31/18 10:17 U Epithel Cells (Auto) 1.0 /HPF (0-13.0) 08/31/18 10:17 325 Mosm/kg 09/01/18 06:12 63 mmol/L 09/01/18 06:12 18.84 mmol/L 09/01/18 06:12 Plasma/Serum Alcohol < 0.01 % (0-0.07) 08/31/18 09:47 Active Medications - Current Medications Current Medications: Generic Name Dose Route Start Last Admin Trade Name Freq PRN Reason Stop Dose Admin Acetaminophen 650 mg 08/31/18 21:00 09/02/18 13:10 Tylenol PO 650 mg Q4H PRN Administration Pain MILD(1-3)/Fever >100.5/COLLAZO Albuterol/Ipratropium 1 ampul 09/05/18 08:00 09/06/18 08:31 Duoneb *Not For Prn Use* IH 1 ampul QIDRT DUSTIN Administration Enoxaparin Sodium 40 mg 09/05/18 10:00 09/05/18 21:53 Lovenox SUB-Q 40 mg BID DUSTIN Administration Famotidine 10 mg 09/01/18 22:00 09/05/18 21:53 Pepcid PO 10 mg BID DUSTIN Administration Furosemide 20 mg 09/06/18 18:00 Lasix IV 0600,1800 DUSTIN Piperacillin Sod/Tazobactam Sod 2.25 gm in 50 mls @ 100 mls/hr 09/04/18 18:00 09/06/18 05:54 Zosyn/Ns 2.25 Gm/50ml IV 100 mls/hr Q8HR DUSTIN Administration Protocol Magnesium Sulfate 2 gm in 50 mls @ 25 mls/hr 09/06/18 10:00 Magnesium Sulfate 2gm/50ml IV 09/06/18 11:59 ONCE ONE Insulin Human Lispro 0 unit 08/31/18 16:30 09/05/18 21:57 Humalog SUB-Q Not Given ACHS DUSTIN Protocol Lorazepam 1 mg 09/05/18 22:11 09/05/18 23:44 Ativan IV 1 mg Q4H PRN Administration Anxiety Methylprednisolone Sodium Succinate 60 mg 09/05/18 08:00 09/06/18 05:33 Solu-Medrol IV 60 mg Q8HR DUSTIN Administration Metoprolol Tartrate 25 mg 08/31/18 22:00 09/05/18 21:51 Lopressor PO 25 mg BID DUSTIN Administration Morphine Sulfate 2 mg 08/31/18 21:00 09/04/18 22:01 Morphine IV 2 mg Q4H PRN Administration Pain, Moderate (4-6) Ondansetron HCl 4 mg 08/31/18 21:00 09/01/18 18:56 Zofran IV 4 mg Q8H PRN Administration Nausea And Vomiting Oxycodone HCl 10 mg 09/02/18 21:24 09/05/18 21:51 Roxicodone PO 10 mg Q4H PRN Administration Pain, Moderate (4-6) Potassium Chloride 40 meq 09/06/18 10:00 K-Dur PO QDAY DUSTIN Sodium Chloride 10 ml 08/31/18 22:00 09/05/18 21:55 Sodium Chloride Flush Syringe 10 Ml IV 10 ml BID DUSTIN Administration Sodium Chloride 10 ml 08/31/18 21:00 Sodium Chloride Flush Syringe 10 Ml IV PRN PRN LINE FLUSH Nutrition/Malnutrition Assess - Dietary Evaluation Nutrition/Malnutrition Findings: Nutrition Notes Start: 09/01/18 15:41 Freq: Status: Active Protocol: Document 09/05/18 13:29 MARCO (Rec: 09/05/18 13:31 MARCO [email or web address]) Nutrition Notes Need for Assessment generated from: MD Order Initial or Follow up Brief Note Current Diet Renal Subjective/Other Information RD consulted for NTR recommendations, malnutrition and oral supplements. Pt currently being followed by RD . Nutrition Intervention Add Supplement/Snack (indicate name/kcal Ensure Enlive TID /protein ) Provides kCal: 1,050 Provides Protein (gm) 60 Follow-Up By: 09/07/18 Additional Comments F/U: intakes
[2018-09-06] MEDS: LOPRESSOR PO SCH ×2 (11:57→21:54)
[2018-09-06] MEDS: PEPCID PO SCH ×2 (11:57→21:55)
[2018-09-06] MEDS: LOVENOX SUB-Q SCH ×2 (11:58→21:53)
[2018-09-06] MEDS: APRESOLINE PO SCH ×2 (17:58→21:54)
[2018-09-06] MEDS: ISORDIL TITRADOSE PO SCH ×2 (17:59→21:54)
[2018-09-06] MEDS: LANOXIN PO SCH (17:59)
[2018-09-06] MEDS: ATIVAN IV PRN (21:55)
[2018-09-06] MEDS: HumaLOG SUB-Q SCH (21:55)
[2018-09-06] MEDS: SODIUM CHLORIDE FLUSH SYRINGE 10 ML IV SCH (21:59)
[2018-09-06] MEDS: K-DUR PO SCH (22:02)
[2018-09-07 05:40] LABS: Hematocrit 34.7 % (30.3-42.9); Mean Corpuscular HGB Conc 32 % (30-34); Mean Corpuscular Volume 73 fl (79-97); Platelet Count 303 K/mm3 (140-440); Red Blood Count 4.77 M/mm3 (3.65-5.03); Red Cell Distribution Width 19.1 % (13.2-15.2)
[2018-09-07 05:57] LABS: Calcium 10.3 mg/dL (8.4-10.2)
[2018-09-07] MEDS: ZOSYN/NS 2.25 GM/50ML 2.25 GM/50 ML BAG IV SCH ×2 (06:09→15:12)
[2018-09-07] MEDS: SOLU-Medrol IV SCH ×3 (06:09→22:56)
[2018-09-07] MEDS: ISORDIL TITRADOSE PO SCH ×3 (06:10→22:42)
[2018-09-07] MEDS: APRESOLINE PO SCH ×3 (06:10→22:41)
[2018-09-07] MEDS: LASIX IV SCH ×2 (06:11→18:17)
[2018-09-07] MEDS: DUONEB *Not for PRN Use IH SCH ×4 (07:14→21:05)
--- NOTE | 2018-09-07 08:30 | Progress Note ---
Assessment and Plan Impression * Acute kidney injury secondary to prerenal azotemia, resolved --SCr at admission 7.0mg/dL * Cardiomyopathy (LVEF 15%) * Acute pulmonary edema * Acute hypoxic respiratory failure * Hypokalemia Plan: * Renal function improved * Continue IV diuresis * Strict I/O * Avoid potential nephrotoxins * Dose medications for renal function * Optimization of cardiac function per cardiology * Replete and k and mag prn * Monitor Ca * AM labs Subjective Date of service: 09/07/18 Principal diagnosis: DOROTHEA,Encephalopathy Interval history: No acute events overnight. Remains on hi flow oxygen Objective - Vital Signs Vital signs: Vital Signs - 12hr 09/06/18 09/07/18 09/07/18 21:54 00:00 00:03 Temperature 98.6 F Pulse Rate 126 H 105 H Pulse Rate [ Bilateral Throughout] Respiratory 28 H Rate Respiratory Rate [Bilateral Throughout] Blood Pressure 120/66 104/77 O2 Sat by Pulse 93 Oximetry 09/07/18 09/07/18 09/07/18 04:00 04:34 06:10 Temperature 98.8 F Pulse Rate 111 H 111 H 116 H Pulse Rate [ Bilateral Throughout] Respiratory 28 H Rate Respiratory Rate [Bilateral Throughout] Blood Pressure 107/73 99/75 O2 Sat by Pulse 97 Oximetry 09/07/18 09/07/18 09/07/18 07:14 07:16 07:24 Temperature Pulse Rate 117 H Pulse Rate [ 117 H 116 H Bilateral Throughout] Respiratory 24 Rate Respiratory 24 28 H Rate [Bilateral Throughout] Blood Pressure 140/90 O2 Sat by Pulse 99 Oximetry - General Appearance General appearance: well-developed, frail EENT: ATNC Respiratory: Present: Decreased Breath Sounds Cardiology: tachycardia, S1S2 Gastrointestinal: no tenderness, no distended Integumentary: no rash, warm and dry Musculoskeletal: other (no edema) - Lab 09/07/18 04:57 09/07/18 04:57 Most recent lab results Calcium 10.3 mg/dL (8.4-10.2) H D 09/07/18 04:57 Phosphorus 2.30 mg/dL (2.5-4.5) L 09/07/18 04:57 Magnesium 2.10 mg/dL (1.7-2.3) 09/07/18 04:57 63 mmol/L 09/01/18 06:12 Medications & Allergies - Medications Allergies/Adverse Reactions: Allergies NSAIDS (Non-Steroidal Anti-Inflamma Allergy (Verified 08/31/18 09:26) Hives Home Medications: Home Medications Medication Instructions Recorded Confirmed Last Taken Type Metoprolol [Lopressor] 25 mg PO BID 08/31/18 08/31/18 Unknown History Oxycodone HCl [oxyCODONE] 10 mg PO Q4H PRN 08/31/18 08/31/18 Unknown History metroNIDAZOLE [Flagyl] 500 mg PO Q8HR 08/31/18 08/31/18 Unknown History Active Medications: Generic Name Dose Route Start Last Admin Trade Name Freq PRN Reason Stop Dose Admin Acetaminophen 650 mg 08/31/18 21:00 09/02/18 13:10 Tylenol PO 650 mg Q4H PRN Administration Pain MILD(1-3)/Fever >100.5/COLLAZO Albuterol/Ipratropium 1 ampul 09/05/18 08:00 09/07/18 07:14 Duoneb *Not For Prn Use* IH 1 ampul QIDRT DUSTIN Administration Digoxin 0.125 mg 09/06/18 12:00 09/06/18 17:59 Lanoxin PO 0.125 mg Q48H DUSTIN Administration Enoxaparin Sodium 40 mg 09/05/18 10:00 09/06/18 21:53 Lovenox SUB-Q 40 mg BID DUSTIN Administration Famotidine 10 mg 09/01/18 22:00 09/06/18 21:55 Pepcid PO 10 mg BID DUSTIN Administration Furosemide 20 mg 09/06/18 18:00 09/07/18 06:11 Lasix IV Not Given 0600,1800 REPLACED BY [facility] Hydralazine HCl 25 mg 09/06/18 14:00 09/07/18 06:10 Apresoline PO Not Given Q8HR DUSTIN Piperacillin Sod/Tazobactam Sod 2.25 gm in 50 mls @ 100 mls/hr 09/07/18 12:00 Zosyn/Ns 2.25 Gm/50ml IV Q6HR REPLACED BY [facility] Protocol Insulin Human Lispro 0 unit 08/31/18 16:30 09/06/18 21:55 Humalog SUB-Q 4 unit ACHS DUSTIN Administration Protocol Isosorbide Dinitrate 10 mg 09/06/18 14:00 09/07/18 06:10 Isordil Titradose PO Not Given Q8HR DUSTIN Lorazepam 1 mg 09/05/18 22:11 09/06/18 21:55 Ativan IV 1 mg Q4H PRN Administration Anxiety Methylprednisolone Sodium Succinate 60 mg 09/05/18 08:00 09/07/18 06:09 Solu-Medrol IV 60 mg Q8HR DUSTIN Administration Metoprolol Tartrate 25 mg 08/31/18 22:00 09/06/18 21:54 Lopressor PO 25 mg BID DUSTIN Administration Morphine Sulfate 2 mg 08/31/18 21:00 09/04/18 22:01 Morphine IV 2 mg Q4H PRN Administration Pain, Moderate (4-6) Ondansetron HCl 4 mg 08/31/18 21:00 09/01/18 18:56 Zofran IV 4 mg Q8H PRN Administration Nausea And Vomiting Oxycodone HCl 10 mg 09/02/18 21:24 09/05/18 21:51 Roxicodone PO 10 mg Q4H PRN Administration Pain, Moderate (4-6) Potassium Chloride 40 meq 09/06/18 10:00 09/06/18 22:02 K-Dur PO 40 meq QDAY DUSTIN Administration Sodium Chloride 10 ml 08/31/18 22:00 09/06/18 21:59 Sodium Chloride Flush Syringe 10 Ml IV 10 ml BID DUSTIN Administration Sodium Chloride 10 ml 08/31/18 21:00 Sodium Chloride Flush Syringe 10 Ml IV PRN PRN LINE FLUSH
[2018-09-07] MEDS ORDERED: K-DUR PO NR (08:33)
--- NOTE | 2018-09-07 08:37 | Progress Note ---
Assessment and Plan Assessment and plan: Assessment and plan: --Acute hypoxic respiratory failure; Patient is on high flow oxygen, nebulizers, BiPAP as needed, Pulm following , f/uCTA chest to r/o PE --Right lower extremity DVT: anticoagulation with Lovenox, r/o PE --Non-ST elevation NV /nonspecific elevation of troponin new-onset cardiomyopathy with ejection fraction of 15-20% Continue current management, ischemia workup when patient is more stable Cardiology following --New-onset systolic CHF; 15-20% anti-failure medications, diuretics beta blockers and merline inhibitors And Protopic monitoring, daily weights, low sodium, fluid restriction -- Hypokalemia Replacement with potassium chloride monitor levels --DOROTHEA (acute kidney injury)POA Sec to ATN : Resolved Gentle hydration -- Hyponatremia Improved to baseline --Acute pulmonary edema: POA Sec to IV Fluids,Will get ECHO IV Lasix one dose given yesterday with significant improvement --COPD with exacerbation Started on Duonebs and IV solumedroll and IV Levaquin -- Severe malnutrition Dietitian consult -- DVT prophylaxis On Heparin and Gi prophylaxis Plan of care is reviewed with the patient and her sisterse Patient's critical condition treatment plan CODE STATUS Discussed with the family, they would discuss with other members. and will inform the decision Full code at this point Critical care time 35 minutes History Interval history: Patient seen and examined medical records reviewed Patient is chronically ill-looking cachectic severe distress On high flow oxygen Patient is critically ill Vital signs noted Hospitalist Physical - Constitutional Vitals: Temp Pulse Resp BP Pulse Ox 98.8 F 116 H 28 H 140/90 99 09/07/18 04:00 09/07/18 07:24 09/07/18 07:24 09/07/18 07:16 09/07/18 07:16 General appearance: Present: mild distress, cachectic, disheveled, other (anxious) - EENT Eyes: Present: PERRL, EOM intact - Neck Neck: Present: supple, normal ROM - Respiratory Respiratory effort: labored Respiratory: bilateral: diminished, rhonchi, negative: rales, wheezing - Cardiovascular Rhythm: regular Heart Sounds: Present: S1 & S2 (tachycardia) - Extremities Extremities: no ischemia, No edema - Abdominal General gastrointestinal: soft, non-tender, non-distended, normal bowel sounds - Integumentary Integumentary: Present: clear, warm - Psychiatric Psychiatric: appropriate mood/affect, cooperative - Neurologic Neurologic: CNII-XII intact, moves all extremities Results - Labs CBC & Chem 7: 09/07/18 04:57 09/07/18 04:57 Labs: Laboratory Last Values WBC 20.6 K/mm3 (4.5-11.0) H 09/07/18 04:57 RBC 4.77 M/mm3 (3.65-5.03) 09/07/18 04:57 Hgb 11.0 gm/dl (10.1-14.3) 09/07/18 04:57 Hct 34.7 % (30.3-42.9) 09/07/18 04:57 MCV 73 fl (79-97) L 09/07/18 04:57 MCH 23 pg (28-32) L 09/07/18 04:57 MCHC 32 % (30-34) 09/07/18 04:57 RDW 19.1 % (13.2-15.2) H 09/07/18 04:57 Plt Count 303 K/mm3 (140-440) 09/07/18 04:57 Lymph % (Auto) 9.2 % (13.4-35.0) L 09/04/18 05:20 [place] % (Auto) 7.2 % (0.0-7.3) 09/04/18 05:20 Eos % (Auto) 0.0 % (0.0-4.3) 09/04/18 05:20 Baso % (Auto) 1.0 % (0.0-1.8) 09/04/18 05:20 Lymph # 1.7 K/mm3 (1.2-5.4) 09/04/18 05:20 [place] # 1.4 K/mm3 (0.0-0.8) H 09/04/18 05:20 Eos # 0.0 K/mm3 (0.0-0.4) 09/04/18 05:20 Baso # 0.2 K/mm3 (0.0-0.1) H 09/04/18 05:20 Add Manual Diff Complete 09/06/18 04:39 Total Counted 100 09/06/18 04:39 Seg Neutrophils % [employer]sembl[employer] Puller Over Machine 09/07/18 04:57 Seg Neuts % (Manual) 90.0 % (40.0-70.0) H 09/06/18 04:39 0 % 09/06/18 04:39 8.0 % (13.4-35.0) L 09/06/18 04:39 Reactive Lymphs % (Man) 0 % 09/06/18 04:39 2.0 % (0.0-7.3) 09/06/18 04:39 0 % (0.0-4.3) 09/06/18 04:39 0 % (0.0-1.8) 09/06/18 04:39 0 % 09/06/18 04:39 0 % 09/06/18 04:39 0 % 09/06/18 04:39 0 % 09/06/18 04:39 Nucleated RBC % Not Reportable 09/06/18 04:39 Seg Neutrophils # 15.6 K/mm3 (1.8-7.7) H 09/04/18 05:20 Seg Neutrophils # Man 13.0 K/mm3 (1.8-7.7) H 09/06/18 04:39 Band Neutrophils # 0.0 K/mm3 09/06/18 04:39 1.2 K/mm3 (1.2-5.4) 09/06/18 04:39 Abs React Lymphs (Man) 0.0 K/mm3 09/06/18 04:39 0.3 K/mm3 (0.0-0.8) 09/06/18 04:39 0.0 K/mm3 (0.0-0.4) 09/06/18 04:39 0.0 K/mm3 (0.0-0.1) 09/06/18 04:39 0.0 K/mm3 09/06/18 04:39 0.0 K/mm3 09/06/18 04:39 0.0 K/mm3 09/06/18 04:39 Blast Cells # 0.0 K/mm3 09/06/18 04:39 WBC Morphology TNR 09/07/18 04:57 Hypersegmented Neuts Not Reportable 09/06/18 04:39 Hyposegmented Neuts Not Reportable 09/06/18 04:39 Hypogranular Neuts Not Reportable 09/06/18 04:39 Not Reportable 09/06/18 04:39 Not Reportable 09/06/18 04:39 Not Reportable 09/06/18 04:39 Not Reportable 09/06/18 04:39 Not Reportable 09/06/18 04:39 Not Reportable 09/06/18 04:39 Consistent w auto 09/06/18 04:39 Not Reportable 09/06/18 04:39 Plt Clumps, EDTA Not Reportable 09/06/18 04:39 1+ 09/06/18 04:39 Not Reportable 09/06/18 04:39 Not Reportable 09/06/18 04:39 Plt Morphology Comment Not Reportable 09/06/18 04:39 RBC Morphology Not Reportable 09/06/18 04:39 Dimorphic RBCs Not Reportable 09/06/18 04:39 Not Reportable 09/06/18 04:39 1+ 09/06/18 04:39 Not Reportable 09/06/18 04:39 1+ 09/06/18 04:39 Not Reportable 09/06/18 04:39 Not Reportable 09/06/18 04:39 Not Reportable 09/06/18 04:39 Not Reportable 09/06/18 04:39 Not Reportable 09/06/18 04:39 Not Reportable 09/06/18 04:39 Not Reportable 09/06/18 04:39 1+ 09/06/18 04:39 Not Reportable 09/06/18 04:39 Not Reportable 09/06/18 04:39 Not Reportable 09/06/18 04:39 Not Reportable 09/06/18 04:39 Not Reportable 09/06/18 04:39 Not Reportable 09/06/18 04:39 Not Reportable 09/06/18 04:39 Acanthocytes (Spur) Not Reportable 09/06/18 04:39 Rouleaux Not Reportable 09/06/18 04:39 Not Reportable 09/06/18 04:39 Not Reportable 09/06/18 04:39 Not Reportable 09/06/18 04:39 Not Reportable 09/06/18 04:39 Hem Pathologist Commnt No 09/06/18 04:39 POC ABG pH 7.595 (7.35-7.45) H 09/06/18 12:23 POC ABG pCO2 34.7 (35-45) L 09/06/18 12:23 POC ABG pO2 259 (80-105) H 09/06/18 12:23 POC ABG HCO3 33.7 (22-26 mml/L) 09/06/18 12:23 POC ABG Total CO2 35 (23-27mmol/L) 09/06/18 12:23 POC ABG O2 Sat 100 09/06/18 12:23 POC ABG Base Excess 12 ((-2) - (+3)mmol/L) 09/06/18 12:23 80 % 09/06/18 12:23 Sodium 146 mmol/L (137-145) H 09/07/18 04:57 Potassium 3.5 mmol/L (3.6-5.0) L 09/07/18 04:57 Chloride 99.3 mmol/L (98-107) 09/07/18 04:57 Carbon Dioxide 30 mmol/L (22-30) 09/07/18 04:57 20 mmol/L 09/07/18 04:57 BUN 54 mg/dL (7-17) H 09/07/18 04:57 1.1 mg/dL (0.7-1.2) 09/07/18 04:57 Estimated GFR 51 ml/min 09/07/18 04:57 49 % 09/07/18 04:57 Glucose 130 mg/dL (65-100) H 09/07/18 04:57 POC Glucose 258 (70-105) H 09/06/18 21:24 5.2 % (4-6) 08/31/18 21:18 290 Mosm/kg 08/31/18 09:47 Lactic Acid 1.00 mmol/L (0.7-2.0) 08/31/18 13:35 Calcium 10.3 mg/dL (8.4-10.2) H D 09/07/18 04:57 Phosphorus 2.30 mg/dL (2.5-4.5) L 09/07/18 04:57 Magnesium 2.10 mg/dL (1.7-2.3) 09/07/18 04:57 0.50 mg/dL (0.1-1.2) 09/04/18 05:20 AST 54 units/L (5-40) H 09/04/18 05:20 ALT 44 units/L (7-56) 09/04/18 05:20 97 units/L (35-129) 09/04/18 05:20 36.0 umol/L (25-60) 08/31/18 09:47 27 units/L (30-135) L 09/05/18 13:44 TNR 09/05/18 13:44 CK-MB (CK-2) 6.0 ng/mL (0.0-4.0) H 09/05/18 13:44 CK-MB (CK-2) TNR 09/05/18 13:44 CK-MB (CK-2) Rel Index 22.2 (0-4) H 09/05/18 13:44 CK-MB (CK-2) Rel Index TNR 09/05/18 13:44 0.180 ng/mL (0.00-0.029) H* 09/06/18 15:19 NT-Pro-B Natriuret Pep > 11623 pg/mL (0-900) H 09/05/18 13:44 6.1 g/dL (6.3-8.2) L 09/04/18 05:20 3.3 g/dL (3.9-5) L 09/04/18 05:20 1.2 % 09/04/18 05:20 Triglycerides 228 mg/dL (2-149) H 09/05/18 13:44 Cholesterol 164 mg/dL (50-199) 09/05/18 13:44 96 mg/dL (50-130) 09/05/18 13:44 28 mg/dL (40-59) L 09/05/18 13:44 5.85 % 09/05/18 13:44 TSH 0.485 mlU/mL (0.270-4.200) 08/31/18 09:47 Free T4 1.52 ng/dL (0.76-1.46) H 08/31/18 09:47 Sophie (Yellow) 08/31/18 10:17 Cloudy (Clear) 08/31/18 10:17 5.0 (5.0-7.0) 08/31/18 10:17 Ur Specific [place] 1.018 (1.003-1.030) 08/31/18 10:17 30 mg/dl mg/dL (Negative) 08/31/18 10:17 Neg mg/dL (Negative) 08/31/18 10:17 Neg mg/dL (Negative) 08/31/18 10:17 Neg (Negative) 08/31/18 10:17 Neg (Negative) 08/31/18 10:17 Neg (Negative) 08/31/18 10:17 < 2.0 mg/dL (<2.0) 08/31/18 10:17 Ur Leukocyte Esterase Neg (Negative) 08/31/18 10:17 1.0 /HPF (0.0-6.0) 08/31/18 10:17 1.0 /HPF (0.0-6.0) 08/31/18 10:17 U Epithel Cells (Auto) 1.0 /HPF (0-13.0) 08/31/18 10:17 325 Mosm/kg 09/01/18 06:12 63 mmol/L 09/01/18 06:12 18.84 mmol/L 09/01/18 06:12 Plasma/Serum Alcohol < 0.01 % (0-0.07) 08/31/18 09:47 Active Medications - Current Medications Current Medications: Generic Name Dose Route Start Last Admin Trade Name Freq PRN Reason Stop Dose Admin Acetaminophen 650 mg 08/31/18 21:00 09/02/18 13:10 Tylenol PO 650 mg Q4H PRN Administration Pain MILD(1-3)/Fever >100.5/COLLAZO Albuterol/Ipratropium 1 ampul 09/05/18 08:00 09/07/18 07:14 Duoneb *Not For Prn Use* IH 1 ampul QIDRT DUSTIN Administration Digoxin 0.125 mg 09/06/18 12:00 09/06/18 17:59 Lanoxin PO 0.125 mg Q48H DUSTIN Administration Enoxaparin Sodium 40 mg 09/05/18 10:00 09/06/18 21:53 Lovenox SUB-Q 40 mg BID DUSTIN Administration Famotidine 10 mg 09/01/18 22:00 09/06/18 21:55 Pepcid PO 10 mg BID DUSTIN Administration Furosemide 20 mg 09/06/18 18:00 09/07/18 06:11 Lasix IV Not Given 0600,1800 [facility] Hydralazine HCl 25 mg 09/06/18 14:00 09/07/18 06:10 Apresoline PO Not Given Q8HR [facility] Piperacillin Sod/Tazobactam Sod 2.25 gm in 50 mls @ 100 mls/hr 09/07/18 12:00 Zosyn/Ns 2.25 Gm/50ml IV Q6HR [facility] Protocol Insulin Human Lispro 0 unit 08/31/18 16:30 09/06/18 21:55 Humalog SUB-Q 4 unit ACHS DUSTIN Administration Protocol Isosorbide Dinitrate 10 mg 09/06/18 14:00 09/07/18 06:10 Isordil Titradose PO Not Given Q8HR [facility] Lorazepam 1 mg 09/05/18 22:11 09/06/18 21:55 Ativan IV 1 mg Q4H PRN Administration Anxiety Methylprednisolone Sodium Succinate 60 mg 09/05/18 08:00 09/07/18 06:09 Solu-Medrol IV 60 mg Q8HR [facility] Administration Metoprolol Tartrate 25 mg 08/31/18 22:00 09/06/18 21:54 Lopressor PO 25 mg BID DUSTIN Administration Morphine Sulfate 2 mg 08/31/18 21:00 09/04/18 22:01 Morphine IV 2 mg Q4H PRN Administration Pain, Moderate (4-6) Ondansetron HCl 4 mg 08/31/18 21:00 09/01/18 18:56 Zofran IV 4 mg Q8H PRN Administration Nausea And Vomiting Oxycodone HCl 10 mg 09/02/18 21:24 09/05/18 21:51 Roxicodone PO 10 mg Q4H PRN Administration Pain, Moderate (4-6) Potassium Chloride 40 meq 09/06/18 10:00 09/06/18 22:02 K-Dur PO 40 meq QDAY DUSTIN Administration Potassium Chloride 20 meq 09/07/18 08:33 K-Dur PO 09/07/18 08:34 ONCE ONE Potassium Phos/Sodium Phos 1 each 09/07/18 10:00 Phos-Nak PO 09/08/18 22:01 Q12HR DUSTIN Sodium Chloride 10 ml 08/31/18 22:00 09/06/18 21:59 Sodium Chloride Flush Syringe 10 Ml IV 10 ml BID DUSTIN Administration Sodium Chloride 10 ml 08/31/18 21:00 Sodium Chloride Flush Syringe 10 Ml IV PRN PRN LINE FLUSH Nutrition/Malnutrition Assess - Dietary Evaluation Nutrition/Malnutrition Findings: Nutrition Notes Start: 09/01/18 15:41 Freq: Status: Active Protocol: Document 09/05/18 13:29 MARCO (Rec: 09/05/18 13:31 MARCO [email or web address]) Nutrition Notes Need for Assessment generated from: MD Order Initial or Follow up Brief Note Current Diet Renal Subjective/Other Information RD consulted for NTR recommendations, malnutrition and oral supplements. Pt currently being followed by RD . Nutrition Intervention Add Supplement/Snack (indicate name/kcal Ensure Enlive TID /protein ) Provides kCal: 1,050 Provides Protein (gm) 60 Follow-Up By: 09/07/18 Additional Comments F/U: intakes
[2018-09-07 09:11] LABS: Anisocytosis 1+; Basophils % (Manual) 0 % (0.0-1.8); Eosinophils % (Manual) 0 % (0.0-4.3); Total Cells Counted 100
[2018-09-07 09:12] LABS: Hypochromasia Few; Platelet Estimate Consistent w Auto; Poikilocytosis Few
--- NOTE | 2018-09-07 10:17 | Progress Note ---
Assessment and Plan Acute DVT (Right lower ext) Acute hypoxemic respiratory failure Jacob Baum Respirations HAP/Aspiration pneumonia Severe protein calorie malnutrition DOROTHEA s/p Colostomy Acute metabolic -toxic encephalopathy Severe protein calorie malnutrition Tobacco use disorder Hypokalemia - continue full dose Lovenox for DVT / possible P.E. - prn CXR and ABG at this point - Critical care bundles addressed - continue supplemental oxygen to keep O2 sats 90-92% - High flow oxygen daytime with NIPPV support especially qhs - continue bronchodilators with pulmonary hygiene per RT - GI consult placed for malabsorption - Accuchecks with glycemic control. Target blood glucose <180mg/dL - Hypoglycemia protocol - Aspiration precautions, HOB>40 - Agitation/anxiety management - Prevention of delirium, maintenance of sleep-wake cycle - Antibiotic therapy for HAP, recent discharge from [place] - Avoid nephrotoxic agents, adjust all antibiotics and medications for CrCL and GFR - Get swallow objective study of swallow function - Limit narcotic analgesia - Nutrition consult - Nicotine withdrawal precautions - Smoking cessation counselling - Get medical records from [place] (Family and patient have decided on AND/DNR status and are talking with Hospice regarding goals of care re: focusing on comfort as she has chronic pain also) ..... transfer to IM by evening if stable/continues to improve PROGNOSIS: GUARDED CODE STATUS: AND Subjective Date of service: 09/07/18 Principal diagnosis: Ac. DVT (Right lower ext); Ac. hypoxemic resp failure; HAP/Aspiration PNA Interval history: Patient is seen today for: Acute DVT (Right lower ext); Acute hypoxemic respiratory failure; Jacob Baum Respirations; HAP/Aspiration pneumonia; DOROTHEA; Acute metabolic -toxic encephalopathy; Severe protein calorie malnutrition Seen and examined at bedside; 24hour events reviewed; nursing and respiratory care staff consulted; no adverse overnight events reported to me; resting peacefully in bed; feels a little better; remains on supplemental oxygen; per family she has had a "dumping / malabsorption type syndrome going ion as all meals seem to come out of her colostomy soon thereafter. Objective Vital Signs - 12hr 09/07/18 09/07/18 09/07/18 00:00 00:03 04:00 Temperature 98.6 F 98.8 F Pulse Rate 105 H 111 H Pulse Rate [ Bilateral Throughout] Respiratory 28 H Rate Respiratory Rate [Bilateral Throughout] Blood Pressure 104/77 O2 Sat by Pulse 93 Oximetry 07/01/19 07/01/19 07/01/19 04:34 06:10 07:14 Temperature Pulse Rate 111 H 116 H Pulse Rate [ 117 H Bilateral Throughout] Respiratory 28 H Rate Respiratory 24 Rate [Bilateral Throughout] Blood Pressure 107/73 99/75 O2 Sat by Pulse 97 Oximetry 09/07/18 09/07/18 09/07/18 07:16 07:24 09:25 Temperature Pulse Rate 117 H Pulse Rate [ 116 H Bilateral Throughout] Respiratory 24 Rate Respiratory 28 H Rate [Bilateral Throughout] Blood Pressure 140/90 O2 Sat by Pulse 99 95 Oximetry Constitutional: alert, appears uncomfortable, other (elderly cachectic chronically ill looking female with mildly increased respiratory effort at rest) Eyes: non-icteric ENT: oropharynx dry Neck: supple, no lymphadenopathy, no JVD Effort: very labored Ascultation: Bilateral: diminished breath sounds, rhonchi Percussion: Bilateral: not dull Cardiovascular: regular rate and rhythm, other (S1,S2, nor urmurs, gallops or rubs) Gastrointestinal: normoactive bowel sounds, soft, non-tender, non-distended, other (colostomy bag) Integumentary: other (neurofibromatosis) Extremities: no cyanosis, no edema, pulses normal, no ischemia or petechiae Neurologic: non-focal exam (grossly), pupils equal and round, CN II-XII normal, motor strength normal and Psychiatric: anxious CBC and BMP: 09/07/18 04:57 09/08/18 09:35 ABG, PT/INR, D-dimer: ABG POC ABG pH 7.595 (7.35-7.45) H 09/06/18 12:23 POC ABG pCO2 34.7 (35-45) L 09/06/18 12:23 POC ABG pO2 259 (80-105) H 09/06/18 12:23 POC ABG HCO3 33.7 (22-26 mml/L) 09/06/18 12:23 POC ABG Total CO2 35 (23-27mmol/L) 09/06/18 12:23 POC ABG O2 Sat 100 09/06/18 12:23 Abnormal lab findings: Abnormal Labs 08/31/18 08/31/18 08/31/18 09:47 09:47 09:47 WBC 15.2 H Hgb Hct MCV 73 L MCH 23 L RDW 19.3 H Lymph % (Auto) 6.2 L [place] % (Auto) Lymph # 0.9 L [place] # 1.0 H Baso # Seg Neutrophils % 87.1 H Seg Neuts % (Manual) Lymphocytes % (Manual) Seg Neutrophils # 13.2 H Seg Neutrophils # Man Lymphocytes # (Manual) POC ABG pH POC ABG pCO2 POC ABG pO2 Sodium 121 L Potassium 6.5 H* Chloride 76.3 L Carbon Dioxide 18 L BUN 90 H Creatinine 7.1 H Glucose POC Glucose Calcium Phosphorus Magnesium AST 63 H Total Creatine Kinase CK-MB (CK-2) CK-MB (CK-2) Rel Index Troponin T NT-Pro-B Natriuret Pep Total Protein Albumin 3.6 L Triglycerides HDL Cholesterol Free T4 1.52 H 08/31/18 08/31/18 08/31/18 09:47 14:52 21:18 WBC Hgb Hct MCV MCH RDW Lymph % (Auto) [place] % (Auto) Lymph # [place] # Baso # Seg Neutrophils % Seg Neuts % (Manual) Lymphocytes % (Manual) Seg Neutrophils # Seg Neutrophils # Man Lymphocytes # (Manual) POC ABG pH POC ABG pCO2 POC ABG pO2 Sodium 125 L 129 L Potassium 5.5 H Chloride 85.4 L 84.5 L Carbon Dioxide 18 L BUN 84 H 79 H Creatinine 6.0 H 4.9 H Glucose 108 H POC Glucose Calcium Phosphorus Magnesium AST Total Creatine Kinase CK-MB (CK-2) CK-MB (CK-2) Rel Index Troponin T NT-Pro-B Natriuret Pep 1077 H Total Protein Albumin Triglycerides HDL Cholesterol Free T4 08/31/18 09/01/18 09/01/18 22:27 08:23 10:10 WBC 4.1 L Hgb 9.6 L Hct 29.1 L MCV 72 L MCH 24 L RDW 19.0 H Lymph % (Auto) 11.6 L [place] % (Auto) 11.2 H Lymph # 0.5 L [place] # Baso # Seg Neutrophils % 76.6 H Seg Neuts % (Manual) Lymphocytes % (Manual) Seg Neutrophils # Seg Neutrophils # Man Lymphocytes # (Manual) POC ABG pH POC ABG pCO2 POC ABG pO2 Sodium Potassium Chloride Carbon Dioxide BUN Creatinine Glucose POC Glucose 132 H 113 H Calcium Phosphorus Magnesium AST Total Creatine Kinase CK-MB (CK-2) CK-MB (CK-2) Rel Index Troponin T NT-Pro-B Natriuret Pep Total Protein Albumin Triglycerides HDL Cholesterol Free T4 09/01/18 09/01/18 09/01/18 10:20 11:28 20:43 WBC Hgb Hct MCV MCH RDW Lymph % (Auto) [place] % (Auto) Lymph # [place] # Baso # Seg Neutrophils % Seg Neuts % (Manual) Lymphocytes % (Manual) Seg Neutrophils # Seg Neutrophils # Man Lymphocytes # (Manual) POC ABG pH POC ABG pCO2 POC ABG pO2 Sodium 136 L D Potassium Chloride 91.4 L Carbon Dioxide BUN 71 H Creatinine 3.3 H Glucose 134 H POC Glucose 147 H 134 H Calcium Phosphorus Magnesium AST 46 H Total Creatine Kinase CK-MB (CK-2) CK-MB (CK-2) Rel Index Troponin T NT-Pro-B Natriuret Pep Total Protein 6.0 L D Albumin 3.1 L Triglycerides HDL Cholesterol Free T4 09/02/18 09/02/18 09/02/18 05:40 08:21 13:22 WBC Hgb Hct MCV MCH RDW Lymph % (Auto) [place] % (Auto) Lymph # [place] # Baso # Seg Neutrophils % Seg Neuts % (Manual) Lymphocytes % (Manual) Seg Neutrophils # Seg Neutrophils # Man Lymphocytes # (Manual) POC ABG pH POC ABG pCO2 POC ABG pO2 Sodium 134 L Potassium Chloride 91.4 L Carbon Dioxide BUN 61 H Creatinine 2.3 H Glucose 119 H POC Glucose 130 H 123 H Calcium Phosphorus Magnesium AST Total Creatine Kinase CK-MB (CK-2) CK-MB (CK-2) Rel Index Troponin T NT-Pro-B Natriuret Pep Total Protein Albumin Triglycerides HDL Cholesterol Free T4 09/02/18 09/03/18 09/03/18 20:29 05:03 08:02 WBC Hgb Hct MCV MCH RDW Lymph % (Auto) [place] % (Auto) Lymph # [place] # Baso # Seg Neutrophils % Seg Neuts % (Manual) Lymphocytes % (Manual) Seg Neutrophils # Seg Neutrophils # Man Lymphocytes # (Manual) POC ABG pH POC ABG pCO2 POC ABG pO2 Sodium 128 L Potassium Chloride 91.3 L Carbon Dioxide BUN 48 H Creatinine 1.7 H Glucose 110 H POC Glucose 112 H 115 H Calcium 8.3 L Phosphorus Magnesium AST Total Creatine Kinase CK-MB (CK-2) CK-MB (CK-2) Rel Index Troponin T NT-Pro-B Natriuret Pep Total Protein Albumin Triglycerides HDL Cholesterol Free T4 09/03/18 09/03/18 09/03/18 12:15 17:48 20:44 WBC Hgb Hct MCV MCH RDW Lymph % (Auto) [place] % (Auto) Lymph # [place] # Baso # Seg Neutrophils % Seg Neuts % (Manual) Lymphocytes % (Manual) Seg Neutrophils # Seg Neutrophils # Man Lymphocytes # (Manual) POC ABG pH POC ABG pCO2 POC ABG pO2 Sodium Potassium Chloride Carbon Dioxide BUN Creatinine Glucose POC Glucose 321 H 185 H 118 H Calcium Phosphorus Magnesium AST Total Creatine Kinase CK-MB (CK-2) CK-MB (CK-2) Rel Index Troponin T NT-Pro-B Natriuret Pep Total Protein Albumin Triglycerides HDL Cholesterol Free T4 09/04/18 09/04/18 09/04/18 05:20 05:20 06:46 WBC 18.9 H Hgb Hct MCV 72 L MCH 23 L RDW 18.7 H Lymph % (Auto) 9.2 L [place] % (Auto) Lymph # [place] # 1.4 H Baso # 0.2 H Seg Neutrophils % 82.6 H Seg Neuts % (Manual) Lymphocytes % (Manual) Seg Neutrophils # 15.6 H Seg Neutrophils # Man Lymphocytes # (Manual) POC ABG pH POC ABG pCO2 POC ABG pO2 Sodium 132 L 132 L Potassium Chloride 92.2 L 92.4 L Carbon Dioxide 19 L 19 L BUN 51 H 52 H Creatinine 1.6 H 1.6 H Glucose POC Glucose Calcium Phosphorus Magnesium AST 54 H Total Creatine Kinase CK-MB (CK-2) CK-MB (CK-2) Rel Index Troponin T NT-Pro-B Natriuret Pep Total Protein 6.1 L Albumin 3.3 L Triglycerides HDL Cholesterol Free T4 09/04/18 09/04/18 09/04/18 12:48 13:17 17:32 WBC Hgb Hct MCV MCH RDW Lymph % (Auto) [place] % (Auto) Lymph # [place] # Baso # Seg Neutrophils % Seg Neuts % (Manual) Lymphocytes % (Manual) Seg Neutrophils # Seg Neutrophils # Man Lymphocytes # (Manual) POC ABG pH POC ABG pCO2 POC ABG pO2 55 L Sodium Potassium Chloride Carbon Dioxide BUN Creatinine Glucose POC Glucose 156 H 139 H Calcium Phosphorus Magnesium AST Total Creatine Kinase CK-MB (CK-2) CK-MB (CK-2) Rel Index Troponin T NT-Pro-B Natriuret Pep Total Protein Albumin Triglycerides HDL Cholesterol Free T4 09/04/18 09/05/18 09/05/18 20:40 05:04 08:53 WBC Hgb Hct MCV MCH RDW Lymph % (Auto) [place] % (Auto) Lymph # [place] # Baso # Seg Neutrophils % Seg Neuts % (Manual) Lymphocytes % (Manual) Seg Neutrophils # Seg Neutrophils # Man Lymphocytes # (Manual) POC ABG pH POC ABG pCO2 POC ABG pO2 Sodium 136 L Potassium 3.1 L D Chloride 90.8 L Carbon Dioxide BUN 53 H Creatinine 1.4 H Glucose 149 H POC Glucose 129 H 174 H Calcium Phosphorus Magnesium AST Total Creatine Kinase CK-MB (CK-2) CK-MB (CK-2) Rel Index Troponin T NT-Pro-B Natriuret Pep Total Protein Albumin Triglycerides HDL Cholesterol Free T4 09/05/18 09/05/18 09/05/18 09:28 10:54 13:44 WBC Hgb Hct MCV MCH RDW Lymph % (Auto) [place] % (Auto) Lymph # [place] # Baso # Seg Neutrophils % Seg Neuts % (Manual) Lymphocytes % (Manual) Seg Neutrophils # Seg Neutrophils # Man Lymphocytes # (Manual) POC ABG pH 7.536 H 7.522 H POC ABG pCO2 POC ABG pO2 Sodium Potassium Chloride Carbon Dioxide BUN Creatinine Glucose POC Glucose Calcium Phosphorus Magnesium AST Total Creatine Kinase 27 L CK-MB (CK-2) 6.0 H CK-MB (CK-2) Rel Index 22.2 H Troponin T NT-Pro-B Natriuret Pep > 93525 H Total Protein Albumin Triglycerides HDL Cholesterol Free T4 09/05/18 09/05/18 09/05/18 13:44 18:32 21:32 WBC Hgb Hct MCV MCH RDW Lymph % (Auto) [place] % (Auto) Lymph # [place] # Baso # Seg Neutrophils % Seg Neuts % (Manual) Lymphocytes % (Manual) Seg Neutrophils # Seg Neutrophils # Man Lymphocytes # (Manual) POC ABG pH POC ABG pCO2 POC ABG pO2 Sodium Potassium Chloride Carbon Dioxide BUN Creatinine Glucose POC Glucose 173 H 253 H Calcium Phosphorus Magnesium AST Total Creatine Kinase CK-MB (CK-2) CK-MB (CK-2) Rel Index Troponin T 0.194 H* NT-Pro-B Natriuret Pep Total Protein Albumin Triglycerides 228 H HDL Cholesterol 28 L Free T4 09/05/18 09/06/18 09/06/18 21:33 04:39 04:39 WBC 14.4 H Hgb Hct MCV 73 L MCH 23 L RDW 19.0 H Lymph % (Auto) [place] % (Auto) Lymph # [place] # Baso # Seg Neutrophils % Seg Neuts % (Manual) 90.0 H Lymphocytes % (Manual) 8.0 L Seg Neutrophils # Seg Neutrophils # Man 13.0 H Lymphocytes # (Manual) POC ABG pH POC ABG pCO2 POC ABG pO2 Sodium Potassium 3.2 L Chloride 96.1 L Carbon Dioxide BUN 52 H Creatinine Glucose 113 H POC Glucose Calcium Phosphorus Magnesium AST Total Creatine Kinase CK-MB (CK-2) CK-MB (CK-2) Rel Index Troponin T 0.162 H* NT-Pro-B Natriuret Pep Total Protein Albumin Triglycerides HDL Cholesterol Free T4 09/06/18 09/06/18 09/06/18 07:24 10:33 10:33 WBC Hgb Hct MCV MCH RDW Lymph % (Auto) [place] % (Auto) Lymph # [place] # Baso # Seg Neutrophils % Seg Neuts % (Manual) Lymphocytes % (Manual) Seg Neutrophils # Seg Neutrophils # Man Lymphocytes # (Manual) POC ABG pH POC ABG pCO2 POC ABG pO2 Sodium Potassium Chloride Carbon Dioxide BUN Creatinine Glucose POC Glucose 154 H Calcium Phosphorus Magnesium 1.40 L AST Total Creatine Kinase CK-MB (CK-2) CK-MB (CK-2) Rel Index Troponin T 0.181 H* NT-Pro-B Natriuret Pep Total Protein Albumin Triglycerides HDL Cholesterol Free T4 09/06/18 09/06/18 09/06/18 11:57 12:23 15:19 WBC Hgb Hct MCV MCH RDW Lymph % (Auto) [place] % (Auto) Lymph # [place] # Baso # Seg Neutrophils % Seg Neuts % (Manual) Lymphocytes % (Manual) Seg Neutrophils # Seg Neutrophils # Man Lymphocytes # (Manual) POC ABG pH 7.595 H POC ABG pCO2 34.7 L POC ABG pO2 259 H Sodium Potassium Chloride Carbon Dioxide BUN Creatinine Glucose POC Glucose 184 H Calcium Phosphorus Magnesium AST Total Creatine Kinase CK-MB (CK-2) CK-MB (CK-2) Rel Index Troponin T 0.180 H* NT-Pro-B Natriuret Pep Total Protein Albumin Triglycerides HDL Cholesterol Free T4 09/06/18 09/06/18 09/07/18 15:19 21:24 04:57 WBC Hgb Hct MCV MCH RDW Lymph % (Auto) [place] % (Auto) Lymph # [place] # Baso # Seg Neutrophils % Seg Neuts % (Manual) Lymphocytes % (Manual) Seg Neutrophils # Seg Neutrophils # Man Lymphocytes # (Manual) POC ABG pH POC ABG pCO2 POC ABG pO2 Sodium 146 H Potassium 3.5 L Chloride Carbon Dioxide BUN 54 H Creatinine Glucose 130 H POC Glucose 235 H 258 H Calcium 10.3 H D Phosphorus Magnesium AST Total Creatine Kinase CK-MB (CK-2) CK-MB (CK-2) Rel Index Troponin T NT-Pro-B Natriuret Pep Total Protein Albumin Triglycerides HDL Cholesterol Free T4 09/07/18 09/07/18 04:57 04:57 WBC 20.6 H Hgb Hct MCV 73 L MCH 23 L RDW 19.1 H Lymph % (Auto) [place] % (Auto) Lymph # [place] # Baso # Seg Neutrophils % Seg Neuts % (Manual) 96.0 H Lymphocytes % (Manual) 2.0 L Seg Neutrophils # Seg Neutrophils # Man 19.8 H Lymphocytes # (Manual) 0.4 L POC ABG pH POC ABG pCO2 POC ABG pO2 Sodium Potassium Chloride Carbon Dioxide BUN Creatinine Glucose POC Glucose Calcium Phosphorus 2.30 L Magnesium AST Total Creatine Kinase CK-MB (CK-2) CK-MB (CK-2) Rel Index Troponin T NT-Pro-B Natriuret Pep Total Protein Albumin Triglycerides HDL Cholesterol Free T4 Chest x-ray: image reviewed Allied health notes reviewed: nursing
[2018-09-07] MEDS ORDERED: MORPHINE IV PRN (10:26)
--- NOTE | 2018-09-07 11:26 | Progress Note ---
Assessment and Plan Altered mental status Respiratory failure CXR reports persistent bilateral pulmonary infiltrates Cardiomyopathy Echo showing LVEF 15-20% with regional wall motion abnormalities ECG is pertinent for anteroseptal Q waves. Severe mitral regurgitation Non-occlusive DVT noted in the right femoral vein on lovenox 40mg bid Acute renal failure - resolved Metabolic acidosis - resolved Failure to thrive Hyperkalemia - resolved Steroid induced leukocytosis Reflex sinus tachycardia Recommend: Continue medical therapy for cardiomyopathy as tolerated. Obtain prior cardiac records from [facility] for review. Subjective Date of service: 09/07/18 Principal diagnosis: DOROTHEA,Encephalopathy Objective Vital Signs Temp Pulse Pulse Pulse Resp Resp BP 09/07/18 09:25 09/07/18 07:24 116 H 28 H 09/07/18 07:16 117 H 24 140/90 09/07/18 07:14 117 H 24 09/07/18 06:10 116 H 99/75 09/07/18 04:34 111 H 28 H 107/73 09/07/18 04:00 98.8 F 111 H 09/07/18 00:03 105 H 28 H 104/77 09/07/18 00:00 98.6 F 09/06/18 21:54 126 H 120/66 09/06/18 20:30 114 H 22 09/06/18 20:15 113 H 22 09/06/18 20:14 09/06/18 20:00 98.0 F 112 H 126 H 33 H 09/06/18 18:19 111 H 28 H 09/06/18 17:59 112 H 145/87 09/06/18 17:58 114 H 151/88 09/06/18 16:00 98.1 F 110 H 24 09/06/18 12:02 120 H 24 09/06/18 12:00 98.1 F 115 H 09/06/18 11:58 130 H 24 09/06/18 11:57 131 H 128/78 Pulse Ox 09/07/18 09:25 95 09/07/18 07:24 09/07/18 07:16 99 09/07/18 07:14 09/07/18 06:10 09/07/18 04:34 97 09/07/18 04:00 09/07/18 00:03 93 09/07/18 00:00 09/06/18 21:54 09/06/18 20:30 09/06/18 20:15 09/06/18 20:14 98 09/06/18 20:00 97 09/06/18 18:19 09/06/18 17:59 09/06/18 17:58 09/06/18 16:00 09/06/18 12:02 09/06/18 12:00 09/06/18 11:58 09/06/18 11:57 - Physical Examination General: No Apparent Distress Cardiac: Positive: Tachycardia Abdomen: Positive: Soft Extremities: Absent: edema - Labs and Meds CBC 09/07/18 Range/Units 04:57 WBC 20.6 H (4.5-11.0) K/mm3 RBC 4.77 (3.65-5.03) M/mm3 Hgb 11.0 (10.1-14.3) gm/dl Hct 34.7 (30.3-42.9) % Plt Count 303 (140-440) K/mm3 Comprehensive Metabolic Panel 09/07/18 Range/Units 04:57 Sodium 146 H (137-145) mmol/L Potassium 3.5 L (3.6-5.0) mmol/L Chloride 99.3 (98-107) mmol/L Carbon Dioxide 30 (22-30) mmol/L BUN 54 H (7-17) mg/dL Creatinine 1.1 (0.7-1.2) mg/dL Glucose 130 H (65-100) mg/dL Calcium 10.3 H D (8.4-10.2) mg/dL
[2018-09-07] MEDS: PEPCID PO SCH ×2 (12:40→22:40)
[2018-09-07] MEDS: K-DUR PO SCH (12:40)
[2018-09-07] MEDS: LOVENOX SUB-Q SCH ×2 (12:41→22:44)
[2018-09-07] MEDS: PHOS-NAK PO SCH ×2 (12:41→22:40)
[2018-09-07] MEDS: LOPRESSOR PO SCH ×2 (12:41→22:43)
--- NOTE | 2018-09-07 17:19 | Gastroenterology Consultation ---
History of Present Illness - Reason for Consult Consult date: 09/07/18 abdominal pain, malabsorption Requesting physician: BUSTER SIGALA - History of Present Illness This is a 58 yo female with h/o neurofibromatosis with pulm involvement, recurrent PTX, h/o appendectomy (03/2018 for perforated appendicitis) complicated by bowel obstruction leading to ex-alp with SHARLA, small bowel resection, and end- ileostomy 2/2 anastomotic leak, HTN, and Hep C(diagnosed in 2009 but no treatment), depression admitted in ICU for sepsis 2/2 HCAP and being work up for possible PE. GI consulted for chronic abdominal pain, increased output from ileostomy, and malnutrition. Per family, patient has had chronic generalized abdominal pain since her multiple bowel surgeries and was seen by GI during her recent stay at [facility] in 07/2018. Per outside records, she was treated with pancreatic enzymes, questran, and lomotil for increased ileostomy output and pancreatic insufficiency. Past History Past Medical History: other (Unable to obtain) Past Surgical History: Other (Unable to obtain ) Social history: other (Unable to obtain ) Medications and Allergies Allergies Allergy/AdvReac Type Severity Reaction Status Date / Time NSAIDS (Non-Steroidal Allergy Hives Verified 08/31/18 09:26 Anti-Inflamma Home Medications Medication Instructions Recorded Confirmed Last Taken Type Metoprolol [Lopressor] 25 mg PO BID 08/31/18 08/31/18 Unknown History Oxycodone HCl [oxyCODONE] 10 mg PO Q4H PRN 08/31/18 08/31/18 Unknown History metroNIDAZOLE [Flagyl] 500 mg PO Q8HR 08/31/18 08/31/18 Unknown History Active Meds: Active Medications Acetaminophen (Tylenol) 650 mg PO Q4H PRN PRN Reason: Pain MILD(1-3)/Fever >100.5/COLLAZO Last Admin: 09/02/18 13:10 Dose: 650 mg Documented by: Albuterol/Ipratropium (Duoneb *Not For Prn Use*) 1 ampul IH QIDRT [facility] Last Admin: 09/07/18 13:25 Dose: 1 ampul Documented by: Lipase/Protease/Amylase (Binh Alaniz 10,500 Unit) 6 each PO AC [facility] Digoxin (Lanoxin) 0.125 mg PO Q48H [facility] Last Admin: 09/06/18 17:59 Dose: 0.125 mg Documented by: Enoxaparin Sodium (Lovenox) 40 mg SUB-Q BID [facility] Last Admin: 09/07/18 12:41 Dose: 40 mg Documented by: Famotidine (Pepcid) 10 mg PO BID [facility] Last Admin: 09/07/18 12:40 Dose: 10 mg Documented by: Furosemide (Lasix) 20 mg IV 0600,1800 [facility] Last Admin: 09/07/18 06:11 Dose: Not Given Documented by: Hydralazine HCl (Apresoline) 25 mg PO Q8HR [facility] Last Admin: 09/07/18 15:01 Dose: 25 mg Documented by: Piperacillin Sod/Tazobactam Sod (Zosyn/Ns 2.25 Gm/50ml) 2.25 gm in 50 mls @ 100 mls/hr IV Q6HR [facility]; Protocol Last Admin: 09/07/18 15:12 Dose: 100 mls/hr Documented by: Insulin Human Lispro (Humalog) 0 unit SUB-Q ACHS [facility]; Protocol Last Admin: 09/06/18 21:55 Dose: 4 unit Documented by: Isosorbide Dinitrate (Isordil Titradose) 10 mg PO Q8HR [facility] Last Admin: 09/07/18 15:02 Dose: 10 mg Documented by: Lorazepam (Ativan) 1 mg IV Q4H PRN PRN Reason: Anxiety Last Admin: 09/06/18 21:55 Dose: 1 mg Documented by: Methylprednisolone Sodium Succinate (Solu-Medrol) 60 mg IV Q8HR [facility] Last Admin: 09/07/18 15:03 Dose: 60 mg Documented by: Metoprolol Tartrate (Lopressor) 25 mg PO BID [facility] Last Admin: 09/07/18 12:41 Dose: 25 mg Documented by: Morphine Sulfate (Morphine) 2 mg IV Q4H PRN PRN Reason: Pain , Severe (7-10) Ondansetron HCl (Zofran) 4 mg IV Q8H PRN PRN Reason: Nausea And Vomiting Last Admin: 09/01/18 18:56 Dose: 4 mg Documented by: Oxycodone HCl (Roxicodone) 10 mg PO Q4H PRN PRN Reason: Pain, Moderate (4-6) Last Admin: 09/05/18 21:51 Dose: 10 mg Documented by: Potassium Chloride (K-Dur) 40 meq PO QDAY [facility] Last Admin: 09/07/18 12:40 Dose: 40 meq Documented by: Potassium Phos/Sodium Phos (Phos-Nak) 1 each PO Q12HR [facility] Stop: 09/08/18 22:01 Last Admin: 09/07/18 12:41 Dose: 1 each Documented by: Sodium Chloride (Sodium Chloride Flush Syringe 10 Ml) 10 ml IV BID [facility] Last Admin: 09/06/18 21:59 Dose: 10 ml Documented by: Sodium Chloride (Sodium Chloride Flush Syringe 10 Ml) 10 ml IV PRN PRN PRN Reason: LINE FLUSH Medication list reviewed and updated Review of Systems - Review of Systems ROS unobtainable: due to mental status Exam - Constitutional Vital Signs: Temp Pulse Resp BP Pulse Ox 96.4 F L 120 H 32 H 116/73 92 09/07/18 12:00 09/07/18 15:02 09/07/18 13:35 09/07/18 15:02 09/07/18 13:25 General appearance: no acute distress - EENT Eyes: EOM intact ENT: hearing intact - Neck Neck: supple - Respiratory Respiratory: bilateral: diminished - Cardiovascular Rhythm: regular Heart Sounds: Present: S1 & S2 - Gastrointestinal General gastrointestinal: Present: soft, tender, non-distended, normal bowel sounds (ostomy in place) - Integumentary Integumentary: Present: warm, dry - Neurologic Neurological: generalized weakness - Labs CBC & Chem 7: 09/07/18 04:57 09/07/18 04:57 Lab Results: Laboratory Results - last 24 hr 09/05/18 09/05/18 09/06/18 09:28 10:54 21:24 WBC RBC Hgb Hct MCV MCH MCHC RDW Plt Count Add Manual Diff Total Counted Seg Neutrophils % Seg Neuts % (Manual) Band Neutrophils % Lymphocytes % (Manual) Reactive Lymphs % (Man) Monocytes % (Manual) Eosinophils % (Manual) Basophils % (Manual) Metamyelocytes % Myelocytes % Promyelocytes % Blast Cells % Nucleated RBC % Seg Neutrophils # Man Band Neutrophils # Lymphocytes # (Manual) Abs React Lymphs (Man) Monocytes # (Manual) Eosinophils # (Manual) Basophils # (Manual) Metamyelocytes # Myelocytes # Promyelocytes # Blast Cells # WBC Morphology Hypersegmented Neuts Hyposegmented Neuts Hypogranular Neuts Smudge Cells Toxic Granulation Toxic Vacuolation Dohle Bodies Pelger-Huet Anomaly Nicole Rods Platelet Estimate Clumped Platelets Plt Clumps, EDTA Large Platelets Giant Platelets Platelet Satelliting Plt Morphology Comment RBC Morphology Dimorphic RBCs Polychromasia Hypochromasia Poikilocytosis Anisocytosis Microcytosis Macrocytosis Spherocytes Pappenheimer Bodies Sickle Cells Target Cells Tear Drop Cells Ovalocytes Helmet Cells [place] Bodies [place] Cells Bite Cells Crenated Cell Elliptocytes Acanthocytes (Spur) Rouleaux Hemoglobin C Crystals Schistocytes Malaria parasites Hung Bodies Hem Pathologist Commnt POC ABG pCO2 26.7 L 26.7 L POC ABG pO2 33 L 49 L Sodium Potassium Chloride Carbon Dioxide Anion Gap BUN Creatinine Estimated GFR BUN/Creatinine Ratio Glucose POC Glucose 258 H Lactic Acid Calcium Phosphorus Magnesium C-Reactive Protein 09/07/18 09/07/18 09/07/18 04:57 04:57 04:57 WBC 20.6 H RBC 4.77 Hgb 11.0 Hct 34.7 MCV 73 L MCH 23 L MCHC 32 RDW 19.1 H Plt Count 303 Add Manual Diff Complete Total Counted 100 Seg Neutrophils % Back Digger Operator Seg Neuts % (Manual) 96.0 H Band Neutrophils % 0 Lymphocytes % (Manual) 2.0 L Reactive Lymphs % (Man) 0 Monocytes % (Manual) 1.0 Eosinophils % (Manual) 0 Basophils % (Manual) 0 Metamyelocytes % 1.0 Myelocytes % 0 Promyelocytes % 0 Blast Cells % 0 Nucleated RBC % Not Reportable Seg Neutrophils # Man 19.8 H Band Neutrophils # 0.0 Lymphocytes # (Manual) 0.4 L Abs React Lymphs (Man) 0.0 Monocytes # (Manual) 0.2 Eosinophils # (Manual) 0.0 Basophils # (Manual) 0.0 Metamyelocytes # 0.2 Myelocytes # 0.0 Promyelocytes # 0.0 Blast Cells # 0.0 WBC Morphology Not Reportable Hypersegmented Neuts Not Reportable Hyposegmented Neuts Not Reportable Hypogranular Neuts Not Reportable Smudge Cells Not Reportable Toxic Granulation Not Reportable Toxic Vacuolation Not Reportable Dohle Bodies Not Reportable Pelger-Huet Anomaly Not Reportable Nicole Rods Not Reportable Platelet Estimate Consistent w auto Clumped Platelets Not Reportable Plt Clumps, EDTA Not Reportable Large Platelets Not Reportable Giant Platelets Not Reportable Platelet Satelliting Not Reportable Plt Morphology Comment Not Reportable RBC Morphology Not Reportable Dimorphic RBCs Not Reportable Polychromasia Not Reportable Hypochromasia Few Poikilocytosis Few Anisocytosis 1+ Microcytosis Not Reportable Macrocytosis Not Reportable Spherocytes Not Reportable Pappenheimer Bodies Not Reportable Sickle Cells Not Reportable Target Cells Not Reportable Tear Drop Cells Not Reportable Ovalocytes Not Reportable Helmet Cells Not Reportable [place] Bodies Not Reportable [place] Not Reportable [place] Cells Not Reportable Bite Cells Not Reportable Crenated Cell Not Reportable Elliptocytes Not Reportable Acanthocytes (Spur) Not Reportable Rouleaux Not Reportable Hemoglobin C Crystals Not Reportable Schistocytes Not Reportable Malaria parasites Not Reportable Hung Bodies Not Reportable Hem Pathologist Commnt No POC ABG pCO2 POC ABG pO2 Sodium 146 H Potassium 3.5 L Chloride 99.3 Carbon Dioxide 30 Anion Gap 20 BUN 54 H Creatinine 1.1 Estimated GFR 51 BUN/Creatinine Ratio 49 Glucose 130 H POC Glucose Lactic Acid Calcium 10.3 H D Phosphorus 2.30 L Magnesium 2.10 C-Reactive Protein 09/07/18 09/07/18 09/07/18 04:57 10:41 10:41 WBC RBC Hgb Hct MCV MCH MCHC RDW Plt Count Add Manual Diff Total Counted Seg Neutrophils % Seg Neuts % (Manual) Band Neutrophils % Lymphocytes % (Manual) Reactive Lymphs % (Man) Monocytes % (Manual) Eosinophils % (Manual) Basophils % (Manual) Metamyelocytes % Myelocytes % Promyelocytes % Blast Cells % Nucleated RBC % Seg Neutrophils # Man Band Neutrophils # Lymphocytes # (Manual) Abs React Lymphs (Man) Monocytes # (Manual) Eosinophils # (Manual) Basophils # (Manual) Metamyelocytes # Myelocytes # Promyelocytes # Blast Cells # WBC Morphology TNR Hypersegmented Neuts Hyposegmented Neuts Hypogranular Neuts Smudge Cells Toxic Granulation Toxic Vacuolation Dohle Bodies Pelger-Huet Anomaly Nicole Rods Platelet Estimate Clumped Platelets Plt Clumps, EDTA Large Platelets Giant Platelets Platelet Satelliting Plt Morphology Comment RBC Morphology Dimorphic RBCs Polychromasia Hypochromasia Poikilocytosis Anisocytosis Microcytosis Macrocytosis Spherocytes Pappenheimer Bodies Sickle Cells Target Cells Tear Drop Cells Ovalocytes Helmet Cells [place] Bodies [place] Cells Bite Cells Crenated Cell Elliptocytes Acanthocytes (Spur) Rouleaux Hemoglobin C Crystals Schistocytes Malaria parasites Hung Bodies Hem Pathologist Commnt POC ABG pCO2 POC ABG pO2 Sodium Potassium Chloride Carbon Dioxide Anion Gap BUN Creatinine Estimated GFR BUN/Creatinine Ratio Glucose POC Glucose Lactic Acid 1.60 Calcium Phosphorus Magnesium C-Reactive Protein 0.50 09/07/18 09/07/18 11:40 16:15 WBC RBC Hgb Hct MCV MCH MCHC RDW Plt Count Add Manual Diff Total Counted Seg Neutrophils % Seg Neuts % (Manual) Band Neutrophils % Lymphocytes % (Manual) Reactive Lymphs % (Man) Monocytes % (Manual) Eosinophils % (Manual) Basophils % (Manual) Metamyelocytes % Myelocytes % Promyelocytes % Blast Cells % Nucleated RBC % Seg Neutrophils # Man Band Neutrophils # Lymphocytes # (Manual) Abs React Lymphs (Man) Monocytes # (Manual) Eosinophils # (Manual) Basophils # (Manual) Metamyelocytes # Myelocytes # Promyelocytes # Blast Cells # WBC Morphology Hypersegmented Neuts Hyposegmented Neuts Hypogranular Neuts Smudge Cells Toxic Granulation Toxic Vacuolation Dohle Bodies Pelger-Huet Anomaly Nicole Rods Platelet Estimate Clumped Platelets Plt Clumps, EDTA Large Platelets Giant Platelets Platelet Satelliting Plt Morphology Comment RBC Morphology Dimorphic RBCs Polychromasia Hypochromasia Poikilocytosis Anisocytosis Microcytosis Macrocytosis Spherocytes Pappenheimer Bodies Sickle Cells Target Cells Tear Drop Cells Ovalocytes Helmet Cells [place] Bodies [place] Cells Bite Cells Crenated Cell Elliptocytes Acanthocytes (Spur) Rouleaux Hemoglobin C Crystals Schistocytes Malaria parasites Hung Bodies Hem Pathologist Commnt POC ABG pCO2 POC ABG pO2 Sodium Potassium Chloride Carbon Dioxide Anion Gap BUN Creatinine Estimated GFR BUN/Creatinine Ratio Glucose POC Glucose 165 H 185 H Lactic Acid Calcium Phosphorus Magnesium C-Reactive Protein Assessment and Plan This is a 58 yo female with h/o neurofibromatosis with pulm involvement, recurrent PTX, h/o appendectomy (03/2018 for perforated appendicitis) complicated by bowel obstruction leading to ex-alp with SHARLA, small bowel resection, and end-ileostomy 2/2 anastomotic leak, HTN, and Hep C(diagnosed in 2009 but no t reatment), depression admitted in ICU for sepsis 2/2 HCAP and being work up for possible PE. GI consulted for chronic abdominal pain, increased output from ileostomy, and malnutrition. High ileostomy output - since ileostomy surgery in 06/2018, suspect possible mild short gut syndrome. - previous admission at [facility] treated with pancreatic enzymes, lomotil, and questran. fecal elastase at 113. Recommendations - check stool studies to rule out C diff. - start pancreatic enzymes. - if continues to have high output, start questran bid and lomotil . - nutrition consult. - Patient Problems (1) Severe malnutrition Current Visit: Yes Status: Chronic
[2018-09-07] MEDS: MORPHINE IV PRN (17:20)
[2018-09-07] MEDS: SODIUM CHLORIDE FLUSH SYRINGE 10 ML IV PRN ×2 (17:21→18:18)
[2018-09-07] MEDS: HumaLOG SUB-Q SCH ×2 (17:25→22:00)
[2018-09-07] MEDS: ATIVAN IV PRN (18:58)
[2018-09-07] MEDS: SODIUM CHLORIDE FLUSH SYRINGE 10 ML IV SCH (22:45)
[2018-09-08] MEDS: SOLU-Medrol IV SCH ×2 (06:00→13:57)
[2018-09-08] MEDS: APRESOLINE PO SCH ×2 (06:05→13:54)
[2018-09-08] MEDS: ISORDIL TITRADOSE PO SCH ×2 (06:05→13:56)
[2018-09-08] MEDS: ZOSYN/NS 2.25 GM/50ML 2.25 GM/50 ML BAG IV SCH ×5 (06:20→17:30)
[2018-09-08] MEDS: LASIX IV SCH ×2 (06:24→17:31)
[2018-09-08] MEDS: PANCREAZE DR 10,500 UNIT PO SCH ×3 (07:30→16:38)
[2018-09-08] MEDS: DUONEB *Not for PRN Use IH SCH ×3 (07:38→17:12)
[2018-09-08] MEDS: HumaLOG SUB-Q SCH ×3 (08:02→16:38)
--- NOTE | 2018-09-08 08:54 | Progress Note ---
Assessment and Plan Impression * Acute kidney injury secondary to prerenal azotemia, resolved --SCr at admission 7.0mg/dL * Cardiomyopathy (LVEF 15%) * Acute pulmonary edema * Acute hypoxic respiratory failure * Hypokalemia Plan: * AM labs are pending * Per hospitalist, patient is DNR and family wish to pursue hospice * Continue IV diuresis for now * Strict I/O * Avoid potential nephrotoxins * Dose medications for renal function * Optimization of cardiac function per cardiology * Replete and k and mag prn * Monitor Ca Subjective Date of service: 09/08/18 Principal diagnosis: DOROTHEA,Encephalopathy Interval history: Patient transferred from ICU to [facility]. HR in 150s, RR 30-40 at time of visit. Objective - Vital Signs Vital signs: Vital Signs - 12hr 09/07/18 09/07/18 09/07/18 22:41 22:42 22:43 Temperature Pulse Rate 130 H 116 H 77 Pulse Rate [ Bilateral Throughout] Pulse Rate [ From Monitor] Respiratory Rate Respiratory Rate [Bilateral Throughout] Blood Pressure 120/80 120/80 120/80 O2 Sat by Pulse Oximetry 09/07/18 09/07/18 09/08/18 22:57 23:55 04:00 Temperature 98.0 F Pulse Rate 111 H 117 H Pulse Rate [ Bilateral Throughout] Pulse Rate [ From Monitor] Respiratory 31 H Rate Respiratory Rate [Bilateral Throughout] Blood Pressure 120/80 O2 Sat by Pulse 99 Oximetry 09/08/18 09/08/18 09/08/18 04:46 06:05 07:41 Temperature 97.9 F Pulse Rate 121 H Pulse Rate [ 135 H Bilateral Throughout] Pulse Rate [ From Monitor] Respiratory Rate Respiratory 28 H Rate [Bilateral Throughout] Blood Pressure 138/98 O2 Sat by Pulse Oximetry 09/08/18 09/08/18 09/08/18 07:52 08:00 08:13 Temperature Pulse Rate Pulse Rate [ 139 H Bilateral Throughout] Pulse Rate [ 139 H From Monitor] Respiratory 30 H Rate Respiratory 39 H Rate [Bilateral Throughout] Blood Pressure O2 Sat by Pulse 97 96 Oximetry 09/08/18 08:40 Temperature 97.6 F Pulse Rate Pulse Rate [ Bilateral Throughout] Pulse Rate [ From Monitor] Respiratory Rate Respiratory Rate [Bilateral Throughout] Blood Pressure O2 Sat by Pulse Oximetry - General Appearance General appearance: frail EENT: ATNC Respiratory: Present: Decreased Breath Sounds Cardiology: tachycardia, S1S2 Integumentary: no rash, warm and dry Musculoskeletal: other (no edema) - Lab 09/07/18 04:57 09/08/18 09:35 Most recent lab results Calcium 10.3 mg/dL (8.4-10.2) H D 09/07/18 04:57 Phosphorus 2.30 mg/dL (2.5-4.5) L 09/07/18 04:57 Magnesium 2.10 mg/dL (1.7-2.3) 09/07/18 04:57 63 mmol/L 09/01/18 06:12 Medications & Allergies - Medications Allergies/Adverse Reactions: Allergies NSAIDS (Non-Steroidal Anti-Inflamma Allergy (Verified 08/31/18 09:26) Hives Home Medications: Home Medications Medication Instructions Recorded Confirmed Last Taken Type Metoprolol [Lopressor TAB] 25 mg PO BID 08/31/18 08/31/18 Unknown History Digoxin [Lanoxin] 0.125 mg PO Q48H tablet 09/08/18 Unknown Rx Famotidine [Pepcid] 10 mg PO BID tablet 09/08/18 Unknown Rx Isosorbide Dinitrate [Isordil 10 mg PO Q8HR tablet 09/08/18 Unknown Rx Titradose] LORazepam [Ativan INJ] 1 mg IV Q3H PRN vial 09/08/18 Unknown Rx Lisinopril [Zestril TAB] 2.5 mg PO QDAY tablet 09/08/18 Unknown Rx hydrALAZINE [Apresoline TAB] 25 mg PO Q8HR tablet 09/08/18 Unknown Rx Active Medications: Generic Name Dose Route Start Last Admin Trade Name Hood PRN Reason Stop Dose Admin Acetaminophen 650 mg 08/31/18 21:00 09/02/18 13:10 Tylenol PO 650 mg Q4H PRN Administration Pain MILD(1-3)/Fever >100.5/COLLAZO Albuterol/Ipratropium 1 ampul 09/05/18 08:00 09/08/18 07:38 Duoneb *Not For Prn Use* IH 1 ampul QIDRT [facility]UST[facility] Administration Lipase/Protease/Amylase 6 each 09/08/18 07:30 09/08/18 07:[address] 10,500 Unit PO 6 each AC [facility] Administration Digoxin 0.125 mg 09/06/18 12:00 09/06/18 17:59 Lanoxin PO 0.125 mg Q48H [facility] Administration Enoxaparin Sodium 40 mg 09/05/18 10:00 09/07/18 22:44 Lovenox SUB-Q 40 mg BID [facility] Administration Famotidine 10 mg 09/01/18 22:00 09/07/18 22:40 Pepcid PO Not Given BID [facility] Furosemide 20 mg 09/06/18 18:00 09/08/18 06:24 Lasix IV 20 mg 0600,1800 [facility] Administration Hydralazine HCl 25 mg 09/06/18 14:00 09/08/18 06:05 Apresoline PO Not Given Q8HR [facility] Piperacillin Sod/Tazobactam Sod 2.25 gm in 50 mls @ 100 mls/hr 09/07/18 12:00 09/08/18 07:56 Zosyn/Ns 2.25 Gm/50ml IV 100 mls/hr Q6HR [facility] Administration Protocol Insulin Human Lispro 0 unit 08/31/18 16:30 09/08/18 08:02 Humalog SUB-Q 2 unit ACHS [facility] Administration Protocol Isosorbide Dinitrate 10 mg 09/06/18 14:00 09/08/18 06:05 Isordil Titradose PO Not Given Q8HR [facility] Lorazepam 1 mg 09/05/18 22:11 09/07/18 18:58 Ativan IV 1 mg Q4H PRN Administration Anxiety Methylprednisolone Sodium Succinate 60 mg 09/05/18 08:00 09/08/18 06:00 Solu-Medrol IV 60 mg Q8HR [facility] Administration Metoprolol Tartrate 25 mg 08/31/18 22:00 09/07/18 22:43 Lopressor PO Not Given BID [facility] Morphine Sulfate 2 mg 09/07/18 11:03 09/07/18 17:20 Morphine IV 2 mg Q4H PRN Administration Pain , Severe (7-10) Ondansetron HCl 4 mg 08/31/18 21:00 09/01/18 18:56 Zofran IV 4 mg Q8H PRN Administration Nausea And Vomiting Oxycodone HCl 10 mg 09/02/18 21:24 09/05/18 21:51 Roxicodone PO 10 mg Q4H PRN Administration Pain, Moderate (4-6) Potassium Chloride 40 meq 09/06/18 10:00 09/07/18 12:40 K-Dur PO 40 meq QDAY [facility]UST[facility] Administration Potassium Phos/Sodium Phos 1 each 09/07/18 10:00 09/07/18 22:40 Phos-Nak PO 09/08/18 22:01 Not Given Q12HR DUSTIN Sodium Chloride 10 ml 08/31/18 22:00 09/07/18 22:45 Sodium Chloride Flush Syringe 10 Ml IV 10 ml BID [facility] Administration Sodium Chloride 10 ml 08/31/18 21:00 09/07/18 18:18 Sodium Chloride Flush Syringe 10 Ml IV 10 ml PRN PRN Administration LINE FLUSH
--- NOTE | 2018-09-08 09:17 | Progress Note ---
Assessment and Plan Assessment and plan: --Acute hypoxic respiratory failure; Patient is on high flow oxygen, nebulizers, BiPAP as needed, Pulm following , f/uCTA chest to r/o PE --Right lower extremity DVT: anticoagulation with Lovenox, r/o PE --Non-ST elevation [place] /nonspecific elevation of troponin new-onset cardiomyopathy with ejection fraction of 15-20% Continue current management, ischemia workup when patient is more stable Cardiology following --New-onset systolic CHF; 15-20% anti-failure medications, diuretics beta blockers and melrine inhibitors And Protopic monitoring, daily weights, low sodium, fluid restriction -- Hypokalemia Replacement with potassium chloride monitor levels --DOROTHEA (acute kidney injury)POA Sec to ATN : Resolved Gentle hydration -- Hyponatremia Improved to baseline --Acute pulmonary edema: POA Sec to IV Fluids,Will get ECHO IV Lasix one dose given yesterday with significant improvement --COPD with exacerbation Started on Duonebs and IV solumedroll and IV Levaquin -- Severe malnutrition Dietitian consult -- DVT prophylaxis On Heparin and Gi prophylaxis Plan of care is reviewed with the patient and her sisterse Patient's critical condition treatment plan CODE STATUS Discussed with the family, they would discuss with other members. and will inform the decision Full code at this point Critical care time 35 minutes History Interval history: Patient seen and examined medical records reviewed Patient is in mild distress, some tremors noted On nasal cannula oxygen Patient is chronically ill-looking cachectic In acute distress Vital signs noted Hospitalist Physical - Constitutional Vitals: Temp Pulse Resp BP Pulse Ox 97.6 F 139 H 30 H 138/98 96 09/08/18 08:40 09/08/18 08:00 09/08/18 08:00 09/08/18 06:05 09/08/18 08:13 General appearance: Present: mild distress, cachectic, disheveled, other (anxious,tremors) - EENT Eyes: Present: PERRL, EOM intact - Neck Neck: Present: supple, normal ROM - Respiratory Respiratory effort: normal Respiratory: bilateral: diminished, wheezing, negative: rales, rhonchi - Cardiovascular Rhythm: regular Heart Sounds: Present: S1 & S2 - Extremities Extremities: no ischemia, abnormal (DVT) - Abdominal General gastrointestinal: soft, non-tender, non-distended, normal bowel sounds Results - Labs CBC & Chem 7: 09/07/18 04:57 09/08/18 09:35 Labs: Laboratory Last Values WBC 20.6 K/mm3 (4.5-11.0) H 09/07/18 04:57 RBC 4.77 M/mm3 (3.65-5.03) 09/07/18 04:57 Hgb 11.0 gm/dl (10.1-14.3) 09/07/18 04:57 Hct 34.7 % (30.3-42.9) 09/07/18 04:57 MCV 73 fl (79-97) L 09/07/18 04:57 MCH 23 pg (28-32) L 09/07/18 04:57 MCHC 32 % (30-34) 09/07/18 04:57 RDW 19.1 % (13.2-15.2) H 09/07/18 04:57 Plt Count 303 K/mm3 (140-440) 09/07/18 04:57 Lymph % (Auto) 9.2 % (13.4-35.0) L 09/04/18 05:20 [place] % (Auto) 7.2 % (0.0-7.3) 09/04/18 05:20 Eos % (Auto) 0.0 % (0.0-4.3) 09/04/18 05:20 Baso % (Auto) 1.0 % (0.0-1.8) 09/04/18 05:20 Lymph # 1.7 K/mm3 (1.2-5.4) 09/04/18 05:20 [place] # 1.4 K/mm3 (0.0-0.8) H 09/04/18 05:20 Eos # 0.0 K/mm3 (0.0-0.4) 09/04/18 05:20 Baso # 0.2 K/mm3 (0.0-0.1) H 09/04/18 05:20 Add Manual Diff Complete 09/07/18 04:57 Total Counted 100 09/07/18 04:57 Seg Neutrophils % Loading Machine Operator 09/07/18 04:57 Seg Neuts % (Manual) 96.0 % (40.0-70.0) H 09/07/18 04:57 0 % 09/07/18 04:57 2.0 % (13.4-35.0) L 09/07/18 04:57 Reactive Lymphs % (Man) 0 % 09/07/18 04:57 1.0 % (0.0-7.3) 09/07/18 04:57 0 % (0.0-4.3) 09/07/18 04:57 0 % (0.0-1.8) 09/07/18 04:57 1.0 % 09/07/18 04:57 0 % 09/07/18 04:57 0 % 09/07/18 04:57 0 % 09/07/18 04:57 Nucleated RBC % Not Reportable 09/07/18 04:57 Seg Neutrophils # 15.6 K/mm3 (1.8-7.7) H 09/04/18 05:20 Seg Neutrophils # Man 19.8 K/mm3 (1.8-7.7) H 09/07/18 04:57 Band Neutrophils # 0.0 K/mm3 09/07/18 04:57 0.4 K/mm3 (1.2-5.4) L 09/07/18 04:57 Abs React Lymphs (Man) 0.0 K/mm3 09/07/18 04:57 0.2 K/mm3 (0.0-0.8) 09/07/18 04:57 0.0 K/mm3 (0.0-0.4) 09/07/18 04:57 0.0 K/mm3 (0.0-0.1) 09/07/18 04:57 0.2 K/mm3 09/07/18 04:57 0.0 K/mm3 09/07/18 04:57 0.0 K/mm3 09/07/18 04:57 Blast Cells # 0.0 K/mm3 09/07/18 04:57 WBC Morphology Not Reportable 09/07/18 04:57 WBC Morphology TNR 09/07/18 04:57 Hypersegmented Neuts Not Reportable 09/07/18 04:57 Hyposegmented Neuts Not Reportable 09/07/18 04:57 Hypogranular Neuts Not Reportable 09/07/18 04:57 Not Reportable 09/07/18 04:57 Not Reportable 09/07/18 04:57 Not Reportable 09/07/18 04:57 Not Reportable 09/07/18 04:57 Not Reportable 09/07/18 04:57 Not Reportable 09/07/18 04:57 Consistent w auto 09/07/18 04:57 Not Reportable 09/07/18 04:57 Plt Clumps, EDTA Not Reportable 09/07/18 04:57 Not Reportable 09/07/18 04:57 Not Reportable 09/07/18 04:57 Not Reportable 09/07/18 04:57 Plt Morphology Comment Not Reportable 09/07/18 04:57 RBC Morphology Not Reportable 09/07/18 04:57 Dimorphic RBCs Not Reportable 09/07/18 04:57 Not Reportable 09/07/18 04:57 Few 09/07/18 04:57 Few 09/07/18 04:57 1+ 09/07/18 04:57 Not Reportable 09/07/18 04:57 Not Reportable 09/07/18 04:57 Not Reportable 09/07/18 04:57 Not Reportable 09/07/18 04:57 Not Reportable 09/07/18 04:57 Not Reportable 09/07/18 04:57 Not Reportable 09/07/18 04:57 Not Reportable 09/07/18 04:57 Not Reportable 09/07/18 04:57 Not Reportable 09/07/18 04:57 Not Reportable 09/07/18 04:57 Not Reportable 09/07/18 04:57 Not Reportable 09/07/18 04:57 Not Reportable 09/07/18 04:57 Not Reportable 09/07/18 04:57 Acanthocytes (Spur) Not Reportable 09/07/18 04:57 Rouleaux Not Reportable 09/07/18 04:57 Not Reportable 09/07/18 04:57 Not Reportable 09/07/18 04:57 Not Reportable 09/07/18 04:57 Not Reportable 09/07/18 04:57 Hem Pathologist Commnt No 09/07/18 04:57 POC ABG pH 7.595 (7.35-7.45) H 09/06/18 12:23 POC ABG pCO2 34.7 (35-45) L 09/06/18 12:23 POC ABG pO2 259 (80-105) H 09/06/18 12:23 POC ABG HCO3 33.7 (22-26 mml/L) 09/06/18 12:23 POC ABG Total CO2 35 (23-27mmol/L) 09/06/18 12:23 POC ABG O2 Sat 100 09/06/18 12:23 POC ABG Base Excess 12 ((-2) - (+3)mmol/L) 09/06/18 12:23 80 % 09/06/18 12:23 Sodium 146 mmol/L (137-145) H 09/07/18 04:57 Potassium 3.5 mmol/L (3.6-5.0) L 09/07/18 04:57 Chloride 99.3 mmol/L (98-107) 09/07/18 04:57 Carbon Dioxide 30 mmol/L (22-30) 09/07/18 04:57 20 mmol/L 09/07/18 04:57 BUN 54 mg/dL (7-17) H 09/07/18 04:57 1.1 mg/dL (0.7-1.2) 09/07/18 04:57 Estimated GFR 51 ml/min 09/07/18 04:57 49 % 09/07/18 04:57 Glucose 130 mg/dL (65-100) H 09/07/18 04:57 POC Glucose 211 (70-105) H 09/08/18 06:27 5.2 % (4-6) 08/31/18 21:18 290 Mosm/kg 08/31/18 09:47 Lactic Acid 1.60 mmol/L (0.7-2.0) 09/07/18 10:41 Calcium 10.3 mg/dL (8.4-10.2) H D 09/07/18 04:57 Phosphorus 2.30 mg/dL (2.5-4.5) L 09/07/18 04:57 Magnesium 2.10 mg/dL (1.7-2.3) 09/07/18 04:57 0.50 mg/dL (0.1-1.2) 09/04/18 05:20 AST 54 units/L (5-40) H 09/04/18 05:20 ALT 44 units/L (7-56) 09/04/18 05:20 97 units/L (35-129) 09/04/18 05:20 36.0 umol/L (25-60) 08/31/18 09:47 27 units/L (30-135) L 09/05/18 13:44 TNR 09/05/18 13:44 CK-MB (CK-2) 6.0 ng/mL (0.0-4.0) H 09/05/18 13:44 CK-MB (CK-2) TNR 09/05/18 13:44 CK-MB (CK-2) Rel Index 22.2 (0-4) H 09/05/18 13:44 CK-MB (CK-2) Rel Index TNR 09/05/18 13:44 0.180 ng/mL (0.00-0.029) H* 09/06/18 15:19 0.50 mg/dL (0.00-1.30) 09/07/18 10:41 NT-Pro-B Natriuret Pep > 18187 pg/mL (0-900) H 09/05/18 13:44 6.1 g/dL (6.3-8.2) L 09/04/18 05:20 3.3 g/dL (3.9-5) L 09/04/18 05:20 1.2 % 09/04/18 05:20 Triglycerides 228 mg/dL (2-149) H 09/05/18 13:44 Cholesterol 164 mg/dL (50-199) 09/05/18 13:44 96 mg/dL (50-130) 09/05/18 13:44 28 mg/dL (40-59) L 09/05/18 13:44 5.85 % 09/05/18 13:44 TSH 0.485 mlU/mL (0.270-4.200) 08/31/18 09:47 Free T4 1.52 ng/dL (0.76-1.46) H 08/31/18 09:47 Sophie (Yellow) 08/31/18 10:17 Cloudy (Clear) 08/31/18 10:17 5.0 (5.0-7.0) 08/31/18 10:17 Ur Specific [place] 1.018 (1.003-1.030) 08/31/18 10:17 30 mg/dl mg/dL (Negative) 08/31/18 10:17 Neg mg/dL (Negative) 08/31/18 10:17 Neg mg/dL (Negative) 08/31/18 10:17 Neg (Negative) 08/31/18 10:17 Neg (Negative) 08/31/18 10:17 Neg (Negative) 08/31/18 10:17 < 2.0 mg/dL (<2.0) 08/31/18 10:17 Ur Leukocyte Esterase Neg (Negative) 08/31/18 10:17 1.0 /HPF (0.0-6.0) 08/31/18 10:17 1.0 /HPF (0.0-6.0) 08/31/18 10:17 U Epithel Cells (Auto) 1.0 /HPF (0-13.0) 08/31/18 10:17 325 Mosm/kg 09/01/18 06:12 63 mmol/L 09/01/18 06:12 18.84 mmol/L 09/01/18 06:12 Plasma/Serum Alcohol < 0.01 % (0-0.07) 08/31/18 09:47 Active Medications - Current Medications Current Medications: Generic Name Dose Route Start Last Admin Trade Name Freq PRN Reason Stop Dose Admin Acetaminophen 650 mg 08/31/18 21:00 09/02/18 13:10 Tylenol PO 650 mg Q4H PRN Administration Pain MILD(1-3)/Fever >100.5/COLLAZO Albuterol/Ipratropium 1 ampul 09/05/18 08:00 09/08/18 07:38 Duoneb *Not For Prn Use* IH 1 ampul QIDRT DUSTIN Administration Lipase/Protease/Amylase 6 each 09/08/18 07:30 09/08/18 07:[address] 10,500 Unit PO 6 each AC DUSTIN Administration Digoxin 0.125 mg 09/06/18 12:00 09/06/18 17:59 Lanoxin PO 0.125 mg Q48H DUSTIN Administration Enoxaparin Sodium 40 mg 09/05/18 10:00 09/07/18 22:44 Lovenox SUB-Q 40 mg BID DUSTIN Administration Famotidine 10 mg 09/01/18 22:00 09/07/18 22:40 Pepcid PO Not Given BID DUSTIN Furosemide 20 mg 09/06/18 18:00 07/02/19 06:24 Lasix IV 20 mg 0600,1800 [facility] Administration Hydralazine HCl 25 mg 09/06/18 14:00 09/08/18 06:05 Apresoline PO Not Given Q8HR [facility] Piperacillin Sod/Tazobactam Sod 2.25 gm in 50 mls @ 100 mls/hr 09/07/18 12:00 09/08/18 07:56 Zosyn/Ns 2.25 Gm/50ml IV 100 mls/hr Q6HR [facility] Administration Protocol Insulin Human Lispro 0 unit 08/31/18 16:30 09/08/18 08:02 Humalog SUB-Q 2 unit ACHS [facility] Administration Protocol Isosorbide Dinitrate 10 mg 09/06/18 14:00 09/08/18 06:05 Isordil Titradose PO Not Given Q8HR [facility] Lorazepam 1 mg 09/05/18 22:11 09/07/18 18:58 Ativan IV 1 mg Q4H PRN Administration Anxiety Methylprednisolone Sodium Succinate 60 mg 09/05/18 08:00 09/08/18 06:00 Solu-Medrol IV 60 mg Q8HR [facility] Administration Metoprolol Tartrate 25 mg 08/31/18 22:00 09/07/18 22:43 Lopressor PO Not Given BID [facility] Morphine Sulfate 2 mg 09/07/18 11:03 09/07/18 17:20 Morphine IV 2 mg Q4H PRN Administration Pain , Severe (7-10) Ondansetron HCl 4 mg 08/31/18 21:00 09/01/18 18:56 Zofran IV 4 mg Q8H PRN Administration Nausea And Vomiting Oxycodone HCl 10 mg 09/02/18 21:24 09/05/18 21:51 Roxicodone PO 10 mg Q4H PRN Administration Pain, Moderate (4-6) Potassium Chloride 40 meq 09/06/18 10:00 09/07/18 12:40 K-Dur PO 40 meq QDAY [facility] Administration Potassium Phos/Sodium Phos 1 each 09/07/18 10:00 09/07/18 22:40 Phos-Nak PO 09/08/18 22:01 Not Given Q12HR [facility] Sodium Chloride 10 ml 08/31/18 22:00 09/07/18 22:45 Sodium Chloride Flush Syringe 10 Ml IV 10 ml BID DUSTIN Administration Sodium Chloride 10 ml 08/31/18 21:00 09/07/18 18:18 Sodium Chloride Flush Syringe 10 Ml IV 10 ml PRN PRN Administration LINE FLUSH Nutrition/Malnutrition Assess - Dietary Evaluation Nutrition/Malnutrition Findings: Nutrition Notes Start: 09/01/18 15:41 Freq: Status: Active Protocol: Document 09/07/18 14:37 RM (Rec: 09/07/18 14:42 RM [id number]) Nutrition Notes Initial or Follow up Reassessment Current Diagnosis Acute Kidney Injury, Hypertension Other Pertinent Diagnosis Dehydration, Uremia, AMS Current Diet Renal w/Ensure TID Labs/Tests Reviewed Pertinent Medications Reviewed Height 5 ft 4 in Weight 40.1 kg [place] Body Weight (kg) 54.54 BMI 15.1 Subjective/Other Information Pt moved to ICU. Pt and pt relatives in room at time of visit. Pt relatives stated that pt eats bites of her meals. Pt nurse stated that Ensure Enlive caused loose stool into colostomy. Pt relatives admitted to pt chewing difficulty. Percent of energy/protein needs met: 0%/0% Burn Absent Trauma Absent #1 Nutrition Diagnosis Malnutrition Diagnosis Progress(for reassessment Continues documentation) Is patient on ventilator? No Is Patient Ambulatory and/or Out of Bed No REE-([facility]-confined to bed) 1176.096 Kcal/Kg value to use for calculation 40 Approximate Energy Requirements Using 1604 kcal/Kg Calculation Used for Recommendations Kcal/kg Additional Notes Pro needs 1.2-2g/k-80g/ day Fluid needs 1ml/kcal Nutrition Intervention Change Diet Order: Renal, Mech soft w/ground meat Add Supplement/Snack (indicate name/kcal D/C Ensure Enlive TID. Add /protein ) Ensure Clear Apple 1 daily. Provides kCal: 240 Provides Protein (gm) 10 Goal #1 PO intake of meals plus ONS to meet at least 75% energy and pro needs Goal #2 Wt maintenance and/or gain Anticipated Discharge Needs: Unable to determine at this time Follow-Up By: 09/10/18 Additional Comments Follow for PO and ONS intakes
[2018-09-08] MEDS: PHOS-NAK PO SCH (09:35)
[2018-09-08] MEDS: PEPCID PO SCH (09:35)
[2018-09-08] MEDS: LOVENOX SUB-Q SCH (09:35)
[2018-09-08] MEDS: K-DUR PO SCH (09:36)
[2018-09-08] MEDS: LOPRESSOR PO SCH (09:36)
[2018-09-08] MEDS: SODIUM CHLORIDE FLUSH SYRINGE 10 ML IV SCH (09:49)
[2018-09-08 10:15] LABS: Calcium 9.9 mg/dL (8.4-10.2)
--- NOTE | 2018-09-08 11:16 | Progress Note ---
Assessment and Plan Altered mental status Respiratory failure CXR reports persistent bilateral pulmonary infiltrates Cardiomyopathy Echo showing LVEF 15-20% with regional wall motion abnormalities ECG is pertinent for anteroseptal Q waves. Severe mitral regurgitation Non-occlusive DVT noted in the right femoral vein on lovenox 40mg bid Acute renal failure - resolved Metabolic acidosis - resolved Failure to thrive Hyperkalemia - resolved Steroid induced leukocytosis Reflex sinus tachycardia Recommend: Continue medical therapy for cardiomyopathy as tolerated. Otherwise, conservative cardiac management. Subjective Date of service: 09/08/18 Principal diagnosis: DOROTHEA,Encephalopathy Interval history: Patient is alert with eyes open but is non-verbal. Remains on high flow oxygen Objective Vital Signs Temp Pulse Pulse Pulse Resp Resp BP 09/08/18 09:36 141 H 157/104 09/08/18 08:40 97.6 F 09/08/18 08:13 09/08/18 08:00 139 H 30 H 09/08/18 07:52 139 H 39 H 09/08/18 07:41 135 H 28 H 09/08/18 06:05 121 H 138/98 09/08/18 04:46 97.9 F 09/08/18 04:00 117 H 09/07/18 23:55 98.0 F 09/07/18 22:57 111 H 31 H 120/80 09/07/18 22:43 77 120/80 09/07/18 22:42 116 H 120/80 09/07/18 22:41 130 H 120/80 09/07/18 20:34 98.0 F 09/07/18 20:00 125 H 132 H 36 H 09/07/18 17:35 132 H 36 H 09/07/18 17:20 134 H 39 H 09/07/18 17:14 128 H 38 H 156/89 09/07/18 17:10 111 H 35 H 09/07/18 15:02 120 H 116/73 09/07/18 15:01 118 H 116/73 09/07/18 13:35 118 H 32 H 09/07/18 13:25 115 H 30 H 09/07/18 12:00 96.4 F L 125 H Pulse Ox 09/08/18 09:36 09/08/18 08:40 09/08/18 08:13 96 09/08/18 08:00 97 09/08/18 07:52 09/08/18 07:41 09/08/18 06:05 09/08/18 04:46 09/08/18 04:00 09/07/18 23:55 09/07/18 22:57 99 09/07/18 22:43 09/07/18 22:42 09/07/18 22:41 09/07/18 20:34 09/07/18 20:00 89 09/07/18 17:35 89 09/07/18 17:20 09/07/18 17:14 88 09/07/18 17:10 09/07/18 15:02 09/07/18 15:01 09/07/18 13:35 09/07/18 13:25 92 09/07/18 12:00 - Physical Examination General: No Apparent Distress Neck: Positive: trachea midline Cardiac: Positive: Tachycardia Lungs: Positive: Decreased Breath Sounds - Labs and Meds Comprehensive Metabolic Panel 09/08/18 Range/Units 09:35 Sodium 154 H D (137-145) mmol/L Potassium 3.9 (3.6-5.0) mmol/L Chloride 105.8 (98-107) mmol/L Carbon Dioxide 28 (22-30) mmol/L BUN 73 H (7-17) mg/dL Creatinine 1.5 H (0.7-1.2) mg/dL Glucose 223 H (65-100) mg/dL Calcium 9.9 (8.4-10.2) mg/dL
[2018-09-08] MEDS: LANOXIN PO SCH (11:21)
[2018-09-08] MEDS: MORPHINE IV PRN ×2 (11:22→15:31)
--- NOTE | 2018-09-08 13:02 | Progress Note ---
Assessment and Plan Acute DVT (Right lower ext) Acute hypoxemic respiratory failure Jacob Baum Respirations HAP/Aspiration pneumonia Severe protein calorie malnutrition DOROTHEA s/p Colostomy Acute metabolic -toxic encephalopathy Severe protein calorie malnutrition Tobacco use disorder Hypokalemia - slowly shift focus to comfort care per family and patient's wishes - continue full dose Lovenox for DVT / possible P.E. for now - continue supplemental oxygen to keep O2 sats 90-92% - High flow oxygen daytime with NIPPV support especially qhs - continue bronchodilators with pulmonary hygiene per RT - GI evaluation noted - continue accuchecks with glycemic control. Target blood glucose <180mg/dL - Hypoglycemia protocol - Aspiration precautions, HOB>40 - Agitation/anxiety management - Prevention of delirium, maintenance of sleep-wake cycle - Antibiotic therapy for HAP, recent discharge from [place] - Avoid nephrotoxic agents, adjust all antibiotics and medications for CrCL and GFR - Get swallow objective study of swallow function - Limit narcotic analgesia - Nutrition consult - Nicotine withdrawal precautions - Smoking cessation counselling - Get medical records from [place] (Family and patient have decided on AND/DNR status and are talking with Hospice regarding goals of care re: focusing on comfort as she has chronic pain also) ..... transfer to hospice care if accepted PROGNOSIS: GUARDED CODE STATUS: AND Subjective Date of service: 09/08/18 Principal diagnosis: Ac. DVT (Right lower ext); Ac. hypoxemic resp failure; HAP/Aspiration PNA Interval history: Patient is seen today for: Acute DVT (Right lower ext); Acute hypoxemic respiratory failure; Jacob Baum Respirations; HAP/Aspiration pneumonia; DOROTHEA; Acute metabolic -toxic encephalopathy; Severe protein calorie malnutrition Seen and examined at bedside; 24hour events reviewed; nursing and respiratory care staff consulted; no adverse overnight events reported to me; resting peacefully in bed; work of breathing increased; FiO2 requirements stable; complains of pain; No N/V/F/C Objective Vital Signs - 12hr 09/08/18 09/08/18 09/08/18 04:00 04:46 06:05 Temperature 97.9 F Pulse Rate 117 H 121 H Pulse Rate [ Bilateral Throughout] Pulse Rate [ From Monitor] Respiratory Rate Respiratory Rate [Bilateral Throughout] Blood Pressure 138/98 O2 Sat by Pulse Oximetry 09/08/18 09/08/18 09/08/18 07:41 07:52 08:00 Temperature Pulse Rate Pulse Rate [ 135 H 139 H Bilateral Throughout] Pulse Rate [ 139 H From Monitor] Respiratory 30 H Rate Respiratory 28 H 39 H Rate [Bilateral Throughout] Blood Pressure O2 Sat by Pulse 97 Oximetry 09/08/18 09/08/18 09/08/18 08:13 08:40 09:36 Temperature 97.6 F Pulse Rate 141 H Pulse Rate [ Bilateral Throughout] Pulse Rate [ From Monitor] Respiratory Rate Respiratory Rate [Bilateral Throughout] Blood Pressure 157/104 O2 Sat by Pulse 96 Oximetry 09/08/18 09/08/18 09/08/18 11:21 12:00 12:29 Temperature Pulse Rate 108 H 132 H 130 H Pulse Rate [ 133 H Bilateral Throughout] Pulse Rate [ 139 H From Monitor] Respiratory 30 H 27 H Rate Respiratory 43 H Rate [Bilateral Throughout] Blood Pressure 128/88 159/108 O2 Sat by Pulse 97 97 Oximetry Constitutional: alert, appears uncomfortable, other (elderly cachectic chronically ill looking female with mildly increased respiratory effort at rest) Eyes: non-icteric ENT: oropharynx dry Neck: supple, no lymphadenopathy, no JVD Effort: very labored Ascultation: Bilateral: diminished breath sounds, rhonchi Percussion: Bilateral: not dull Cardiovascular: regular rate and rhythm, other (S1,S2, nor urmurs, gallops or rubs) Gastrointestinal: normoactive bowel sounds, soft, non-tender, non-distended, other (colostomy bag) Integumentary: other (neurofibromatosis) Extremities: no cyanosis, no edema, pulses normal, no ischemia or petechiae Neurologic: non-focal exam (grossly), pupils equal and round, CN II-XII normal, motor strength normal and Psychiatric: anxious CBC and BMP: 09/07/18 04:57 09/08/18 09:35 ABG, PT/INR, D-dimer: ABG POC ABG pH 7.595 (7.35-7.45) H 09/06/18 12:23 POC ABG pCO2 34.7 (35-45) L 09/06/18 12:23 POC ABG pO2 259 (80-105) H 09/06/18 12:23 POC ABG HCO3 33.7 (22-26 mml/L) 09/06/18 12:23 POC ABG Total CO2 35 (23-27mmol/L) 09/06/18 12:23 POC ABG O2 Sat 100 09/06/18 12:23 Abnormal lab findings: Abnormal Labs 08/31/18 08/31/18 08/31/18 09:47 09:47 09:47 WBC 15.2 H Hgb Hct MCV 73 L MCH 23 L RDW 19.3 H Lymph % (Auto) 6.2 L [place] % (Auto) Lymph # 0.9 L [place] # 1.0 H Baso # Seg Neutrophils % 87.1 H Seg Neuts % (Manual) Lymphocytes % (Manual) Seg Neutrophils # 13.2 H Seg Neutrophils # Man Lymphocytes # (Manual) POC ABG pH POC ABG pCO2 POC ABG pO2 Sodium 121 L Potassium 6.5 H* Chloride 76.3 L Carbon Dioxide 18 L BUN 90 H Creatinine 7.1 H Glucose POC Glucose Calcium Phosphorus Magnesium AST 63 H Total Creatine Kinase CK-MB (CK-2) CK-MB (CK-2) Rel Index Troponin T NT-Pro-B Natriuret Pep Total Protein Albumin 3.6 L Triglycerides HDL Cholesterol Free T4 1.52 H 08/31/18 08/31/18 08/31/18 09:47 14:52 21:18 WBC Hgb Hct MCV MCH RDW Lymph % (Auto) [place] % (Auto) Lymph # [place] # Baso # Seg Neutrophils % Seg Neuts % (Manual) Lymphocytes % (Manual) Seg Neutrophils # Seg Neutrophils # Man Lymphocytes # (Manual) POC ABG pH POC ABG pCO2 POC ABG pO2 Sodium 125 L 129 L Potassium 5.5 H Chloride 85.4 L 84.5 L Carbon Dioxide 18 L BUN 84 H 79 H Creatinine 6.0 H 4.9 H Glucose 108 H POC Glucose Calcium Phosphorus Magnesium AST Total Creatine Kinase CK-MB (CK-2) CK-MB (CK-2) Rel Index Troponin T NT-Pro-B Natriuret Pep 1077 H Total Protein Albumin Triglycerides HDL Cholesterol Free T4 08/31/18 09/01/18 09/01/18 22:27 08:23 10:10 WBC 4.1 L Hgb 9.6 L Hct 29.1 L MCV 72 L MCH 24 L RDW 19.0 H Lymph % (Auto) 11.6 L [place] % (Auto) 11.2 H Lymph # 0.5 L [place] # Baso # Seg Neutrophils % 76.6 H Seg Neuts % (Manual) Lymphocytes % (Manual) Seg Neutrophils # Seg Neutrophils # Man Lymphocytes # (Manual) POC ABG pH POC ABG pCO2 POC ABG pO2 Sodium Potassium Chloride Carbon Dioxide BUN Creatinine Glucose POC Glucose 132 H 113 H Calcium Phosphorus Magnesium AST Total Creatine Kinase CK-MB (CK-2) CK-MB (CK-2) Rel Index Troponin T NT-Pro-B Natriuret Pep Total Protein Albumin Triglycerides HDL Cholesterol Free T4 09/01/18 09/01/18 09/01/18 10:20 11:28 20:43 WBC Hgb Hct MCV MCH RDW Lymph % (Auto) [place] % (Auto) Lymph # [place] # Baso # Seg Neutrophils % Seg Neuts % (Manual) Lymphocytes % (Manual) Seg Neutrophils # Seg Neutrophils # Man Lymphocytes # (Manual) POC ABG pH POC ABG pCO2 POC ABG pO2 Sodium 136 L D Potassium Chloride 91.4 L Carbon Dioxide BUN 71 H Creatinine 3.3 H Glucose 134 H POC Glucose 147 H 134 H Calcium Phosphorus Magnesium AST 46 H Total Creatine Kinase CK-MB (CK-2) CK-MB (CK-2) Rel Index Troponin T NT-Pro-B Natriuret Pep Total Protein 6.0 L D Albumin 3.1 L Triglycerides HDL Cholesterol Free T4 09/02/18 09/02/18 09/02/18 05:40 08:21 13:22 WBC Hgb Hct MCV MCH RDW Lymph % (Auto) [place] % (Auto) Lymph # [place] # Baso # Seg Neutrophils % Seg Neuts % (Manual) Lymphocytes % (Manual) Seg Neutrophils # Seg Neutrophils # Man Lymphocytes # (Manual) POC ABG pH POC ABG pCO2 POC ABG pO2 Sodium 134 L Potassium Chloride 91.4 L Carbon Dioxide BUN 61 H Creatinine 2.3 H Glucose 119 H POC Glucose 130 H 123 H Calcium Phosphorus Magnesium AST Total Creatine Kinase CK-MB (CK-2) CK-MB (CK-2) Rel Index Troponin T NT-Pro-B Natriuret Pep Total Protein Albumin Triglycerides HDL Cholesterol Free T4 09/02/18 09/03/18 09/03/18 20:29 05:03 08:02 WBC Hgb Hct MCV MCH RDW Lymph % (Auto) [place] % (Auto) Lymph # [place] # Baso # Seg Neutrophils % Seg Neuts % (Manual) Lymphocytes % (Manual) Seg Neutrophils # Seg Neutrophils # Man Lymphocytes # (Manual) POC ABG pH POC ABG pCO2 POC ABG pO2 Sodium 128 L Potassium Chloride 91.3 L Carbon Dioxide BUN 48 H Creatinine 1.7 H Glucose 110 H POC Glucose 112 H 115 H Calcium 8.3 L Phosphorus Magnesium AST Total Creatine Kinase CK-MB (CK-2) CK-MB (CK-2) Rel Index Troponin T NT-Pro-B Natriuret Pep Total Protein Albumin Triglycerides HDL Cholesterol Free T4 09/03/18 09/03/18 09/03/18 12:15 17:48 20:44 WBC Hgb Hct MCV MCH RDW Lymph % (Auto) [place] % (Auto) Lymph # [place] # Baso # Seg Neutrophils % Seg Neuts % (Manual) Lymphocytes % (Manual) Seg Neutrophils # Seg Neutrophils # Man Lymphocytes # (Manual) POC ABG pH POC ABG pCO2 POC ABG pO2 Sodium Potassium Chloride Carbon Dioxide BUN Creatinine Glucose POC Glucose 321 H 185 H 118 H Calcium Phosphorus Magnesium AST Total Creatine Kinase CK-MB (CK-2) CK-MB (CK-2) Rel Index Troponin T NT-Pro-B Natriuret Pep Total Protein Albumin Triglycerides HDL Cholesterol Free T4 09/04/18 09/04/18 09/04/18 05:20 05:20 06:46 WBC 18.9 H Hgb Hct MCV 72 L MCH 23 L RDW 18.7 H Lymph % (Auto) 9.2 L [place] % (Auto) Lymph # [place] # 1.4 H Baso # 0.2 H Seg Neutrophils % 82.6 H Seg Neuts % (Manual) Lymphocytes % (Manual) Seg Neutrophils # 15.6 H Seg Neutrophils # Man Lymphocytes # (Manual) POC ABG pH POC ABG pCO2 POC ABG pO2 Sodium 132 L 132 L Potassium Chloride 92.2 L 92.4 L Carbon Dioxide 19 L 19 L BUN 51 H 52 H Creatinine 1.6 H 1.6 H Glucose POC Glucose Calcium Phosphorus Magnesium AST 54 H Total Creatine Kinase CK-MB (CK-2) CK-MB (CK-2) Rel Index Troponin T NT-Pro-B Natriuret Pep Total Protein 6.1 L Albumin 3.3 L Triglycerides HDL Cholesterol Free T4 09/04/18 09/04/18 09/04/18 12:48 13:17 17:32 WBC Hgb Hct MCV MCH RDW Lymph % (Auto) [place] % (Auto) Lymph # [place] # Baso # Seg Neutrophils % Seg Neuts % (Manual) Lymphocytes % (Manual) Seg Neutrophils # Seg Neutrophils # Man Lymphocytes # (Manual) POC ABG pH POC ABG pCO2 POC ABG pO2 55 L Sodium Potassium Chloride Carbon Dioxide BUN Creatinine Glucose POC Glucose 156 H 139 H Calcium Phosphorus Magnesium AST Total Creatine Kinase CK-MB (CK-2) CK-MB (CK-2) Rel Index Troponin T NT-Pro-B Natriuret Pep Total Protein Albumin Triglycerides HDL Cholesterol Free T4 09/04/18 09/05/18 09/05/18 20:40 05:04 08:53 WBC Hgb Hct MCV MCH RDW Lymph % (Auto) [place] % (Auto) Lymph # [place] # Baso # Seg Neutrophils % Seg Neuts % (Manual) Lymphocytes % (Manual) Seg Neutrophils # Seg Neutrophils # Man Lymphocytes # (Manual) POC ABG pH POC ABG pCO2 POC ABG pO2 Sodium 136 L Potassium 3.1 L D Chloride 90.8 L Carbon Dioxide BUN 53 H Creatinine 1.4 H Glucose 149 H POC Glucose 129 H 174 H Calcium Phosphorus Magnesium AST Total Creatine Kinase CK-MB (CK-2) CK-MB (CK-2) Rel Index Troponin T NT-Pro-B Natriuret Pep Total Protein Albumin Triglycerides HDL Cholesterol Free T4 09/05/18 09/05/18 09/05/18 09:28 10:54 13:44 WBC Hgb Hct MCV MCH RDW Lymph % (Auto) [place] % (Auto) Lymph # [place] # Baso # Seg Neutrophils % Seg Neuts % (Manual) Lymphocytes % (Manual) Seg Neutrophils # Seg Neutrophils # Man Lymphocytes # (Manual) POC ABG pH 7.536 H 7.522 H POC ABG pCO2 26.7 L 26.7 L POC ABG pO2 33 L 49 L Sodium Potassium Chloride Carbon Dioxide BUN Creatinine Glucose POC Glucose Calcium Phosphorus Magnesium AST Total Creatine Kinase 27 L CK-MB (CK-2) 6.0 H CK-MB (CK-2) Rel Index 22.2 H Troponin T NT-Pro-B Natriuret Pep > 79400 H Total Protein Albumin Triglycerides HDL Cholesterol Free T4 09/05/18 09/05/18 09/05/18 13:44 18:32 21:32 WBC Hgb Hct MCV MCH RDW Lymph % (Auto) [place] % (Auto) Lymph # [place] # Baso # Seg Neutrophils % Seg Neuts % (Manual) Lymphocytes % (Manual) Seg Neutrophils # Seg Neutrophils # Man Lymphocytes # (Manual) POC ABG pH POC ABG pCO2 POC ABG pO2 Sodium Potassium Chloride Carbon Dioxide BUN Creatinine Glucose POC Glucose 173 H 253 H Calcium Phosphorus Magnesium AST Total Creatine Kinase CK-MB (CK-2) CK-MB (CK-2) Rel Index Troponin T 0.194 H* NT-Pro-B Natriuret Pep Total Protein Albumin Triglycerides 228 H HDL Cholesterol 28 L Free T4 09/05/18 09/06/18 09/06/18 21:33 04:39 04:39 WBC 14.4 H Hgb Hct MCV 73 L MCH 23 L RDW 19.0 H Lymph % (Auto) [place] % (Auto) Lymph # [place] # Baso # Seg Neutrophils % Seg Neuts % (Manual) 90.0 H Lymphocytes % (Manual) 8.0 L Seg Neutrophils # Seg Neutrophils # Man 13.0 H Lymphocytes # (Manual) POC ABG pH POC ABG pCO2 POC ABG pO2 Sodium Potassium 3.2 L Chloride 96.1 L Carbon Dioxide BUN 52 H Creatinine Glucose 113 H POC Glucose Calcium Phosphorus Magnesium AST Total Creatine Kinase CK-MB (CK-2) CK-MB (CK-2) Rel Index Troponin T 0.162 H* NT-Pro-B Natriuret Pep Total Protein Albumin Triglycerides HDL Cholesterol Free T4 09/06/18 09/06/18 09/06/18 07:24 10:33 10:33 WBC Hgb Hct MCV MCH RDW Lymph % (Auto) [place] % (Auto) Lymph # [place] # Baso # Seg Neutrophils % Seg Neuts % (Manual) Lymphocytes % (Manual) Seg Neutrophils # Seg Neutrophils # Man Lymphocytes # (Manual) POC ABG pH POC ABG pCO2 POC ABG pO2 Sodium Potassium Chloride Carbon Dioxide BUN Creatinine Glucose POC Glucose 154 H Calcium Phosphorus Magnesium 1.40 L AST Total Creatine Kinase CK-MB (CK-2) CK-MB (CK-2) Rel Index Troponin T 0.181 H* NT-Pro-B Natriuret Pep Total Protein Albumin Triglycerides HDL Cholesterol Free T4 09/06/18 09/06/18 09/06/18 11:57 12:23 15:19 WBC Hgb Hct MCV MCH RDW Lymph % (Auto) [place] % (Auto) Lymph # [place] # Baso # Seg Neutrophils % Seg Neuts % (Manual) Lymphocytes % (Manual) Seg Neutrophils # Seg Neutrophils # Man Lymphocytes # (Manual) POC ABG pH 7.595 H POC ABG pCO2 34.7 L POC ABG pO2 259 H Sodium Potassium Chloride Carbon Dioxide BUN Creatinine Glucose POC Glucose 184 H Calcium Phosphorus Magnesium AST Total Creatine Kinase CK-MB (CK-2) CK-MB (CK-2) Rel Index Troponin T 0.180 H* NT-Pro-B Natriuret Pep Total Protein Albumin Triglycerides HDL Cholesterol Free T4 09/06/18 09/06/18 09/07/18 15:19 21:24 04:57 WBC Hgb Hct MCV MCH RDW Lymph % (Auto) [place] % (Auto) Lymph # [place] # Baso # Seg Neutrophils % Seg Neuts % (Manual) Lymphocytes % (Manual) Seg Neutrophils # Seg Neutrophils # Man Lymphocytes # (Manual) POC ABG pH POC ABG pCO2 POC ABG pO2 Sodium 146 H Potassium 3.5 L Chloride Carbon Dioxide BUN 54 H Creatinine Glucose 130 H POC Glucose 235 H 258 H Calcium 10.3 H D Phosphorus Magnesium AST Total Creatine Kinase CK-MB (CK-2) CK-MB (CK-2) Rel Index Troponin T NT-Pro-B Natriuret Pep Total Protein Albumin Triglycerides HDL Cholesterol Free T4 09/07/18 09/07/18 09/07/18 04:57 04:57 11:40 WBC 20.6 H Hgb Hct MCV 73 L MCH 23 L RDW 19.1 H Lymph % (Auto) [place] % (Auto) Lymph # [place] # Baso # Seg Neutrophils % Seg Neuts % (Manual) 96.0 H Lymphocytes % (Manual) 2.0 L Seg Neutrophils # Seg Neutrophils # Man 19.8 H Lymphocytes # (Manual) 0.4 L POC ABG pH POC ABG pCO2 POC ABG pO2 Sodium Potassium Chloride Carbon Dioxide BUN Creatinine Glucose POC Glucose 165 H Calcium Phosphorus 2.30 L Magnesium AST Total Creatine Kinase CK-MB (CK-2) CK-MB (CK-2) Rel Index Troponin T NT-Pro-B Natriuret Pep Total Protein Albumin Triglycerides HDL Cholesterol Free T4 09/07/18 09/08/18 09/08/18 16:15 00:11 06:27 WBC Hgb Hct MCV MCH RDW Lymph % (Auto) [place] % (Auto) Lymph # [place] # Baso # Seg Neutrophils % Seg Neuts % (Manual) Lymphocytes % (Manual) Seg Neutrophils # Seg Neutrophils # Man Lymphocytes # (Manual) POC ABG pH POC ABG pCO2 POC ABG pO2 Sodium Potassium Chloride Carbon Dioxide BUN Creatinine Glucose POC Glucose 185 H 183 H 211 H Calcium Phosphorus Magnesium AST Total Creatine Kinase CK-MB (CK-2) CK-MB (CK-2) Rel Index Troponin T NT-Pro-B Natriuret Pep Total Protein Albumin Triglycerides HDL Cholesterol Free T4 09/08/18 09/08/18 09/08/18 07:30 09:35 11:56 WBC Hgb Hct MCV MCH RDW Lymph % (Auto) [place] % (Auto) Lymph # [place] # Baso # Seg Neutrophils % Seg Neuts % (Manual) Lymphocytes % (Manual) Seg Neutrophils # Seg Neutrophils # Man Lymphocytes # (Manual) POC ABG pH POC ABG pCO2 POC ABG pO2 Sodium 154 H D Potassium Chloride Carbon Dioxide BUN 73 H Creatinine 1.5 H Glucose 223 H POC Glucose 193 H 173 H Calcium Phosphorus Magnesium AST Total Creatine Kinase CK-MB (CK-2) CK-MB (CK-2) Rel Index Troponin T NT-Pro-B Natriuret Pep Total Protein Albumin Triglycerides HDL Cholesterol Free T4 Allied health notes reviewed: nursing
[2018-09-08] MEDS: ATIVAN IV PRN (14:06)
--- NOTE | 2018-09-08 14:51 | Gastroenterology Progress Note ---
Assessment and Plan 1.severe malnutrition This is a 58 yo female with h/o neurofibromatosis with pulm involvement, recurrent PTX, h/o appendectomy (03/2018 for perforated appendicitis) complicated by bowel obstruction leading to ex-alp with SHARLA, small bowel resection, and end- ileostomy 2/2 anastomotic leak, HTN, and Hep C(diagnosed in 2009 but no treatment), depression admitted in ICU for sepsis 2/2 HCAP and being work up for possible PE. GI consulted for chronic abdominal pain, increased output from ileostomy, and malnutrition. High ileostomy output - since ileostomy surgery in 06/2018, suspect possible mild short gut syndrome. - previous admission at [facility] treated with pancreatic enzymes, lomotil, and questran. fecal elastase at 113. Recommendations - check stool studies to rule out C diff. - continue pancreatic enzymes. - if continues to have high output, start questran bid and lomotil . - nutrition consult. Subjective Date of service: 09/08/18 Principal diagnosis: abdominal pain, malabsorption Interval history: Patient with noted respiratory distress upon exam with c/o SOB. On NRB with breathing labored. No evidence of abd pain or N/V. Colostomy output ~100ml since yesterday. Objective - Constitutional Vitals: Temp Pulse Resp BP Pulse Ox 97.6 F 141 H 34 H 133/87 93 09/08/18 08:40 09/08/18 14:30 09/08/18 14:30 09/08/18 14:30 09/08/18 14:30 General appearance: mild distress - Respiratory Respiratory effort: labored Respiratory: bilateral: diminished - Cardiovascular Rhythm: other (tachycardia) - Gastrointestinal General gastrointestinal: Present: soft, non-distended, normal bowel sounds, other (+colostomy) - Labs CBC & Chem 7: 09/07/18 04:57 09/08/18 09:35 Labs: Laboratory Results - last 24 hr 09/07/18 09/08/18 09/08/18 16:15 00:11 06:27 Sodium Potassium Chloride Carbon Dioxide Anion Gap BUN Creatinine Estimated GFR BUN/Creatinine Ratio Glucose POC Glucose 185 H 183 H 211 H Calcium 09/08/18 09/08/18 09/08/18 07:30 09:35 11:56 Sodium 154 H D Potassium 3.9 Chloride 105.8 Carbon Dioxide 28 Anion Gap 24 BUN 73 H Creatinine 1.5 H Estimated GFR 36 BUN/Creatinine Ratio 49 Glucose 223 H POC Glucose 193 H 173 H Calcium 9.9
[2018-09-08] MEDS ORDERED: ATIVAN IV PRN (16:01)
--- NOTE | 2018-09-08 16:35 | Discharge Summary ---
Providers - Providers Date of Admission: 08/31/18 14:13 Date of discharge: 09/08/18 Attending physician: KARIME ALMAZAN 08/31/18 11:45 Consult to Physician [CONS] Stat Comment: Consulting Provider: ANDREWS MODI Physician Instructions: Reason For Exam: renal failure, hyperkalemia 09/01/18 07:40 Consult to Wound/ET Nurse [CONS] Routine Reason For Exam: wound eval/colostomy 09/03/18 07:16 Physical Therapy Evaluation and Treat [CONS] Routine Comment: Reason For Exam: severe debility 09/03/18 18:12 Consult to Mental Health [CONS] Routine Reason For Exam: depression Place consult to:: Y Notified:: MARCELA 09/04/18 19:06 Consult to Physician [CONS] Urgent Comment: Consulting Provider: MARTINEZ MERCADO Physician Instructions: Reason For Exam: desating, on high flow O2 09/05/18 07:38 Consult to Physician [CONS] Routine Comment: Consulting Provider: MARTINEZ MERCADO Physician Instructions: Reason For Exam: Resp failure 09/05/18 07:39 Consult to Physician [CONS] Routine Comment: Consulting Provider: STEPHEN CHRISTIANSON Physician Instructions: Reason For Exam: CHF 09/05/18 12:35 Consult to Dietitian/Nutrition [CONS] Routine Physician Instructions: Reason For Exam: Oral supplements Reason for Consult: Nutrition Recommendations Reason for Consult: Malnutrition 09/05/18 23:11 Speech Therapy Evaluation and Treat [CONS] Routine Reason For Exam: evalaution swallow function 09/07/18 07:52 Consult to Wound/ET Nurse [CONS] Stat Reason For Exam: wound eval 09/07/18 10:34 Consult to Physician [CONS] Routine Comment: Consulting Provider: VANESA NGUYEN Physician Instructions: Reason For Exam: ABDOMINAL PAIN; MALABSORPTION [facility] Condition[facility] Hospital course: 58 year old female presenting to the hospital on August 31 for AMS. She was found on the floor with AMS. Patient has a history of pain medication use. Electrolytes on admission was compatible with acute renal failure, hyperkalemia, metabolic acidosis. No CPK was checked to rule out rhabdomyolysis. Patient is lying in bed, cachectic, appears to be disheveled. She denies chest pain or shortness of breath. Tele is showing sinus tachycardia. Patient was noted to be in acute hypoxic respectively failure, symptomatically managed, evaluated by pulmonary critical Patient was transferred to ICU, placed on high flow oxygen, lower extremity venous Dopplers positive for DVT, unable to check VQ scan/CTA chest Rule out PE as patient was critically ill and unstable for testing Patient's condition continued to deteriorate, had non-ST elevation MO with positive troponins, as well as pulmonary edema Cardiology evaluated the patient medications were optimized Patient also had acute kidney injury present on admission, evaluated by nephrology medications optimized Patient's respiratory status continued to deteriorate, the patient is in severe distress on high flow oxygen Vital signs noted physical examination is unremarkable Patient's family. Was made aware of patient's critical condition code Status discussed, family requested DO NOT RESUSCITATE status Later family requested hospice. Case management assisted in discharge planning Hospice has evaluated the patient and accepted for inpatient hospice placement Patient is being discharged and transferred to inpatient hospice Condition upon discharge critically ill with guarded prognosis. Family members at the bedside Discharge diagnosis; Management --Acute hypoxic respiratory failure; Patient is on high flow oxygen, nebulizers, BiPAP as needed, Pulm following , f/uCTA chest to r/o PE --Right lower extremity DVT: anticoagulation with Lovenox, r/o PE --Non-ST elevation MO /nonspecific elevation of troponin new-onset cardiomyopathy with ejection fraction of 15-20% Continue current management, ischemia workup when patient is more stable Cardiology following --New-onset systolic CHF; 15-20% anti-failure medications, diuretics beta blockers and apurva inhibitors And Protopic monitoring, daily weights, low sodium, fluid restriction -- Hypokalemia Replacement with potassium chloride monitor levels --DOROTHEA (acute kidney injury)POA Sec to ATN : Resolved Gentle hydration -- Hyponatremia Improved to baseline --Acute pulmonary edema: POA Sec to IV Fluids,Will get ECHO IV Lasix one dose given yesterday with significant improvement --COPD with exacerbation Started on Duonebs and IV solumedroll and IV Levaquin -- Severe malnutrition Dietitian consult -- DVT prophylaxis On Heparin and Gi prophylaxis --DO NOT RESUSCITATE Status Patient is critical and guarded prognosis at the time of discharge and transfer to inpatient psych facility [facility]: [id number] ([facility]) Time spent for discharge: 32 min Core Measure Documentation - Palliative Care Palliative Care/ Comfort Measures: Not Applicable - Core Measures Any of the following diagnoses?: heart failure - Heart Failure Discharge Requirements APURVA/ARB for LVSD if EF <40%: Yes Beta brad at discharge: Yes Exam - Constitutional Vitals: Temp Pulse Resp BP Pulse Ox 97.6 F 133 H 30 H 124/92 97 09/08/18 08:40 09/08/18 16:01 09/08/18 16:01 09/08/18 14:50 09/08/18 16:01 General appearance: Present: severe distress, cachectic, disheveled - EENT Eyes: Present: PERRL, EOM intact - Neck Neck: Present: supple, normal ROM - Respiratory Respiratory effort: labored Respiratory: bilateral: diminished, rhonchi, negative: rales, wheezing - Cardiovascular Rhythm: regular Heart Sounds: Present: S1 & S2 (tachycardia) - Extremities Extremities: no ischemia, normal temperature - Abdominal General gastrointestinal: Present: soft, non-tender, non-distended, normal bowel sounds - Integumentary Integumentary: Present: clear, warm - Musculoskeletal Musculoskeletal: strength equal bilaterally, generalized weakness - Psychiatric Psychiatric: other (confused) - Neurologic Neurologic: other (noncommunicative) Plan Activity: advance as tolerated Diet: advance as tolerated Additional Instructions: Patient is being transferred to inpatient hospice. Under the care of hospice medical doctor md/medical director Follow up with: JEFFREY HUYNH MD [Primary Care Provider] - 3-5 Days
[2018-09-08 18:04] VITALS: BP 131/94
[2018-09-09] MEDS ORDERED: ZESTRIL PO SCH (10:00)
== END 2018-09-08 21:30 | disposition hospice, inpatient (51) | DRG 871 ==
LOC: ED 08:50 → 4A 14:13 → CC1 09-05 10:12 → IMCU 09-07 16:58
PROVIDERS: ADMIT Internal Medicine; ATTEND Internal Medicine
PROC: 4A033R1 Measurement of Arterial Saturation, Peripheral, Percutaneous Approach (ICD-10-PCS; principal; 2018-09-05)
PROC: 5A09457 Assistance with Respiratory Ventilation, 24-96 Consecutive Hours, Continuous Positive Airway Pressure (ICD-10-PCS; 2018-09-05)
DX: A41.9 Sepsis, unspecified organism (principal); I21.4 Non-ST elevation (NSTEMI) myocardial infarction; N17.0 Acute kidney failure with tubular necrosis; E43 Unspecified severe protein-calorie malnutrition; J96.01 Acute respiratory failure with hypoxia; J69.0 Pneumonitis due to inhalation of food and vomit; G92 Toxic encephalopathy; E87.1 Hypo-osmolality and hyponatremia; E87.2 Acidosis; Z68.1 Body mass index [BMI] 19.9 or less, adult; I82.411 Acute embolism and thrombosis of right femoral vein; I42.9 Cardiomyopathy, unspecified; J44.1 Chronic obstructive pulmonary disease with (acute) exacerbation; I50.20 Unspecified systolic (congestive) heart failure; I95.9 Hypotension, unspecified; E87.5 Hyperkalemia; E86.0 Dehydration; F17.200 Nicotine dependence, unspecified, uncomplicated; I11.0 Hypertensive heart disease with heart failure; R41.0 Disorientation, unspecified; E83.39 Other disorders of phosphorus metabolism; Z71.6 Tobacco abuse counseling; Z90.49 Acquired absence of other specified parts of digestive tract
CPT/HCPCS: 36415; 36600; 70450; 71045; 74176; 80048; 80053; 80061; 80320; 81001; 82140; 82550; 82553; 82803; 82962; 83036; 83735; 83880; 83930; 83935; 84100; 84133; 84300; 84439; 84443; 84484; 85007; 85025; 86140; 87040; 87045; 87116; 93005; 93010; 93306; 93970; 94640; 94660; 94760; G0378; G0480; J0610; J1644; J1650; J1815; J1940; J2060; J2270; J2405; J2543; J2930; J3475; J7030; J7070